=== PATIENT | male | born 1940 | race Caucasian/White ===

== ENCOUNTER 2017-05-14 13:35 | Inpatient (IN) ==
--- NOTE | 2017-05-14 13:55 | Emergency Department Note ---
Disposition Clinical Impression: Abdominal pain Qualifiers: Abdominal location: unspecified location Qualified Code(s): R10.9 - Unspecified abdominal pain Disposition: Admitted As Inpatient Condition: Fair Abdominal Pain HPI - General Chief Complaint: ED Abdominal Pain Stated Complaint: abd pain, difficulty walking Time Seen by Provider: 05/14/17 13:50 Source: patient Mode of arrival: ambulatory Limitations: no limitations Nursing Notes Reviewed: Yes Vital Signs Reviewed: Yes - History of Present Illness HPI Narrative: 77-year-old who states he's had right flank pain for about a week or 2 and got worse over the last 2 days. Denies urinary symptoms denies any hematuria. No history of kidney stones. This pain does radiate around down into his right groin. He denies testicular pain. Pt Subjective Complaint: abdominal pain, flank pain Onset (ago): week(s) (2) Location: diffuse Pain Scale: 10 Quality: aching Radiation: RLQ Migration to: no migration Improves with: nothing Worsens with: nothing Associated symptoms: Reports: denies other symptoms Treatments prior to arrival: none - Related Data Home Medications Medication Instructions Recorded Confirmed Atorvastatin [Lipitor] 80 mg PO DAILY 06/11/15 05/14/17 Levothyroxine [Synthroid] 250 mcg PO QAM 06/11/15 05/15/17 Omeprazole [PriLOSEC] 20 mg PO QAM 06/11/15 05/15/17 Sertraline [Zoloft] 100 mg PO QAM 06/11/15 05/14/17 Tamsulosin [Flomax] 0.4 mg PO QAM 06/11/15 05/15/17 BuPROPion XL (24 HR) [Wellbutrin 150 mg PO QAM 07/06/15 05/14/17 Xl] Lisinopril 5 mg PO DAILY 08/10/15 05/14/17 Insulin Glargine,Hum.rec.anlog 20 unit SQ DAILY 12/09/15 05/15/17 [Lantus Solostar] Multivitamin [Multivitamins] 1 tab PO DAILY 12/09/15 05/15/17 traZODone [TraZODone] 50 mg PO HS 01/06/16 05/14/17 Metoprolol [Lopressor] 25 mg PO BID 05/16/16 05/14/17 Warfarin [Coumadin] 10 mg PO TUWETH 05/16/16 05/15/17 amLODIPine [Norvasc] 5 mg PO DAILY 05/16/16 05/14/17 Acetaminophen/Butalbital/Caffe 1 each PO DAILY PRN 05/14/17 05/14/17 [Fioricet] Ezetimibe [Zetia] 10 mg PO DAILY 05/14/17 05/15/17 Ferrous Sulfate [Iron] 325 mg PO DAILY 05/14/17 05/14/17 Gabapentin [Neurontin] 100 mg PO HS 05/14/17 05/15/17 Metformin HCl [Metformin HCl ER] 500 mg PO QPM 05/14/17 05/15/17 Promethazine [Phenergan] 25 mg PO Q6HR PRN 05/14/17 05/15/17 Topiramate [Topamax] 50 mg PO HS 05/14/17 05/14/17 Warfarin [Coumadin] 5 mg PO SUMO 05/15/17 05/15/17 Allergies Allergy/AdvReac Type Severity Reaction Status Date / Time No Known Allergies Allergy Verified 05/14/17 13:40 All systems ED: reviewed and negative except as stated. Constitutional: Denies: fever, chills, weakness, weight change Eyes: Denies: eye pain, eye discharge, vision change ENT ED: Denies: ear pain, throat pain, dental pain, hearing loss, epistaxis, congestion, dysphagia Cardiovascular: Denies: chest pain, palpitations, dyspnea on exertion, edema, syncope Respiratory: Denies: cough, dyspnea, wheezes, hemoptysis, stridor Gastrointestinal: Reports: abdominal pain. Denies: nausea, vomiting, diarrhea, constipation, hematemesis, melena, hematochezia Genitourinary: Denies: urgency, dysuria, frequency, hematuria Musculoskeletal: Denies: back pain, neck pain, arthralgia, myalgia Integumentary: Denies: rash, abrasion, lesions Neurological: Denies: headache, weakness, numbness, paresthesias, confusion, abnormal gait, vertigo Psychiatric: Denies: anxiety, depression, suicidal thoughts, homicidal thoughts , auditory hallucinations, visual hallucinations Endocrine: Denies: fatigue Hematological/Lymphatic: Denies: easy bleeding, easy bruising Allergic/Immunologic: Denies: facial swelling, urticaria Abdominal Pain PMH - Past Medical History Medical history: Reports: atrial fibrillation, cancer, coronary artery disease, CVA, diabetes, hypertension, peripheral artery disease, SVT, thyroid disease, other Male Surgical History: Reports: angioplasty/stent, appendectomy, coronary bypass (CABG), other Psychiatric history: Reports: no psych history - Social History Smoking status: Former smoker Alcohol use: Reports: none Drug use: Reports: none Physical Exam - General Limitations: no limitations General appearance: alert, in no apparent distress - Head Head exam: atraumatic, normocephalic, normal inspection - Eye Eye exam: Present: normal appearance, PERRL, EOMI - ENT ENT exam: normal exam, normal oropharynx, mucous membranes moist - Neck Neck exam: Present: normal inspection, full ROM, trachea midline - Chest Chest inspection: Present: normal inspection, symmetric chest wall rise - Respiratory Respiratory exam: Present: normal lung sounds bilaterally - Cardiovascular Cardiovascular exam: Present: regular rate, normal rhythm, normal heart sounds - Abdominal Exam Abdominal exam: Present: soft, Non-Tender. Absent: tenderness, distention, guarding, rebound, rigidity - Extremities Exam Extremities exam: Present: normal inspection, full ROM. Absent: tenderness, pedal edema - Expanded Lower Extremity Exam Neurovascular/Tendon exam: Absent: motor deficit, sensory deficit, tendon deficit Gait: observed and normal - Back Exam Back exam: Present: normal inspection, full ROM. Absent: tenderness - Neurological Exam Neurological exam: Present: alert, oriented X3 - Psychiatric Psychiatric exam: Present: normal affect, normal mood - Skin Skin exam: Present: warm Course Vital Signs Temperature 97.6 F 05/14/17 13:36 Pulse Rate 73 05/14/17 13:36 Respiratory Rate 16 05/14/17 13:36 Blood Pressure 174/68 05/14/17 13:36 O2 Sat by Pulse Oximetry 98 05/14/17 13:36 Temperature 97.7 F 05/16/17 07:15 Pulse Rate 48 05/16/17 07:15 Respiratory Rate 14 05/16/17 07:15 Blood Pressure 158/71 05/16/17 07:15 O2 Sat by Pulse Oximetry 95 05/16/17 07:15 Oxygen Delivery Oxygen Delivery Room Air Abdominal Pain - Lab Data Lab results reviewed: Yes I reviewed the patient's lab results. Result diagrams: 05/16/17 03:06 05/16/17 03:06 Lab Results 05/14/17 05/14/17 05/14/17 Range/Units 14:03 14:19 14:19 WBC 5.2 (4.3-11.1) K/mcL RBC 4.57 (4.19-5.50) M/mcL Hgb 12.6 L (12.9-16.9) g/dL Hct 39.5 (37.5-50.1) % MCV 86.4 (83.0-100.0) fL MCH 27.6 L (28.0-33.3) pg MCHC 31.9 (31.6-35.5) g/dL RDW 13.2 (11.5-14.5) % Plt Count 162 (140-400) K/mcL MPV 9.5 (9.4-12.4) fL Immature Gran % 0.2 (0-4) % Seg Neutrophils % 63.3 % Lymphocytes % 19.1 % Monocytes % 9.9 % Eosinophils % 6.7 % Basophils % 0.8 % Neutrophils # 3.3 (1.6-8.9) K/mcL Lymphocytes # 1.0 (0.6-4.6) K/mcL Monocytes # 0.5 (0.0-1.3) K/mcL Eosinophils # 0.4 (0.0-0.6) K/mcL Basophils # 0.0 (0.0-0.2) K/mcL Sodium (136-145) mEq/L Potassium (3.5-4.5) mEq/L Chloride (98-109) mEq/L Carbon Dioxide (19-29) mEq/L BUN (8-26) mg/dL Creatinine (0.72-1.25) mg/dL Est GFR ( Amer) (> 60) Est GFR (Non-Af Amer) (> 60) BUN/Creatinine Ratio (6-26) Glucose (70-99) mg/dL POC Glucose (58-89) Calculated Osmolality (280-300) Lactic Acid (0.5-2.2) mmol/L Calcium (8.6-10.8) mg/dL Total Bilirubin (0.2-1.2) mg/dL Direct Bilirubin (0.0-0.5) mg/dL Indirect Bilirubin (0.0-1.2) mg/dL AST (5-34) Units/L ALT (0-55) Units/L Alkaline Phosphatase (38-126) Units/L Troponin I 0.00 (0-0.03) ng/mL Serum Total Protein (6.0-8.3) g/dL Albumin (3.5-5.0) g/dL Globulin (2.4-3.5) g/dL Albumin/Globulin Ratio (1.1-2.2) Amylase (25-125) Units/L Lipase (8-78) Units/L Urine Color Yellow (Yellow) Urine Clarity Clear (Clear) Urine pH 6.5 (5.0-8.0) pH Units Ur Specific [place] 1.022 (1.010-1.025) Urine Protein Trace (Neg-Trace) mg/dL Urine Glucose (UA) Normal (Normal) mg/dL Urine Ketones Negative (Negative) mg/dL Urine Blood Negative (Negative) Urine Nitrite Negative (Negative) Urine Bilirubin Negative (Negative) Urine Urobilinogen Normal (Normal) mg/dL Ur Leukocyte Esterase Negative (Negative) Urine Microscopic RBC 3-5 H (0-3) per hpf Urine Microscopic WBC 0-3 (0-3) per hpf Ur Squamous Epith Cells Moderate H (None-Few) per lpf Urine Bacteria None Seen (None-Few) per hpf Hyaline Casts None Seen (None-Few) per lpf Ur Culture Indicated? NO (NO) 05/14/17 05/14/17 05/14/17 Range/Units 14:19 16:06 17:29 WBC (4.3-11.1) K/mcL RBC (4.19-5.50) M/mcL Hgb (12.9-16.9) g/dL Hct (37.5-50.1) % MCV (83.0-100.0) fL MCH (28.0-33.3) pg MCHC (31.6-35.5) g/dL RDW (11.5-14.5) % Plt Count (140-400) K/mcL MPV (9.4-12.4) fL Immature Gran % (0-4) % Seg Neutrophils % % Lymphocytes % % Monocytes % % Eosinophils % % Basophils % % Neutrophils # (1.6-8.9) K/mcL Lymphocytes # (0.6-4.6) K/mcL Monocytes # (0.0-1.3) K/mcL Eosinophils # (0.0-0.6) K/mcL Basophils # (0.0-0.2) K/mcL Sodium 140 (136-145) mEq/L Potassium 4.7 H (3.5-4.5) mEq/L Chloride 106 (98-109) mEq/L Carbon Dioxide 26 (19-29) mEq/L BUN 29 H (8-26) mg/dL Creatinine 1.01 (0.72-1.25) mg/dL Est GFR ( Amer) > 60 (> 60) Est GFR (Non-Af Amer) > 60 (> 60) BUN/Creatinine Ratio 29 H (6-26) Glucose 105 H (70-99) mg/dL POC Glucose 79 (58-89) Calculated Osmolality 296 (280-300) Lactic Acid 0.6 (0.5-2.2) mmol/L Calcium 9.4 (8.6-10.8) mg/dL Total Bilirubin 0.4 (0.2-1.2) mg/dL Direct Bilirubin 0.2 (0.0-0.5) mg/dL Indirect Bilirubin 0.2 (0.0-1.2) mg/dL AST 24 (5-34) Units/L ALT 45 (0-55) Units/L Alkaline Phosphatase 90 (38-126) Units/L Troponin I (0-0.03) ng/mL Serum Total Protein 7.1 (6.0-8.3) g/dL Albumin 3.5 (3.5-5.0) g/dL Globulin 3.6 H (2.4-3.5) g/dL Albumin/Globulin Ratio 1.0 L (1.1-2.2) Amylase 42 (25-125) Units/L Lipase 26 (8-78) Units/L Urine Color (Yellow) Urine Clarity (Clear) Urine pH (5.0-8.0) pH Units Ur Specific [place] (1.010-1.025) Urine Protein (Neg-Trace) mg/dL Urine Glucose (UA) (Normal) mg/dL Urine Ketones (Negative) mg/dL Urine Blood (Negative) Urine Nitrite (Negative) Urine Bilirubin (Negative) Urine Urobilinogen (Normal) mg/dL Ur Leukocyte Esterase (Negative) Urine Microscopic RBC (0-3) per hpf Urine Microscopic WBC (0-3) per hpf Ur Squamous Epith Cells (None-Few) per lpf Urine Bacteria (None-Few) per hpf Hyaline Casts (None-Few) per lpf Ur Culture Indicated? (NO) - Radiology Data Radiology results reviewed: Yes I reviewed the patient's radiology results. Abdomen/Pelvis CT 05/14/17 13:53 IMPRESSION: 1. No acute abnormalities are seen in the abdomen or pelvis 2. Bladder wall thickening could be related to cystitis. Clinical correlation is needed 3. Degenerative changes in the spine 4. No urinary tract stones 5. No evidence for appendicitis D/ / Bernabe Arriaga MD / Bernabe Arriaga MD Interpreting Provider: Bernabe Arriaga MD S.B.A.R. - S.B.A.RMaria De Jesus Recommendation: Recommendation based on pending studies, treatments, or consults S.B.A.RMaria De Jesus Report Given to: Dr. James BloomAGretta Repor Time: 19:00
[2017-05-14 14:19] LABS: Bilirubin,Urine Negative (Negative); Blood,Urine Negative (Negative); Clarity,Urine Clear (Clear); Color,Urine Yellow (Yellow); Glucose,Urine (UA) Normal (Normal); Ketones,Urine Negative (Negative); Leukocyte Esterase,Urine Negative (Negative); Nitrite,Urine Negative (Negative); PH,Urine 6.5 pH Units (5.0-8.0); Protein,Urine Trace mg/dL (Neg-Trace); Specific Gravity,Urine 1.022 (1.010-1.025); Urobilinogen,Urine Normal (Normal)
[2017-05-14 14:21] LABS: Bacteria,Urine None Seen per hpf (None-Few); Hyaline Casts,Urine None Seen per lpf (None-Few); Squamous Epithelial Cell,Urine Moderate per lpf (None-Few); WBC,Urine 0-3 per hpf (0-3)
[2017-05-14 14:26] LABS: Basophils % 0.8 %; Eosinophils # 0.4 K/mcL (0.0-0.6); Eosinophils % 6.7 %; Hematocrit 39.5 % (37.5-50.1); Hemoglobin 12.6 g/dL (12.9-16.9); Immature Granulocytes % 0.2 % (0-4); Lymphocytes % 19.1 %; Mean Corpuscular HGB Conc 31.9 g/dL (31.6-35.5); Mean Corpuscular Hemoglobin 27.6 pg (28.0-33.3); Mean Corpuscular Volume 86.4 fL (83.0-100.0); Mean Platelet Volume 9.5 fL (9.4-12.4); Monocytes # 0.5 K/mcL (0.0-1.3); Monocytes % 9.9 %; Neutrophils # 3.3 K/mcL (1.6-8.9); Platelet Count 162 K/mcL (140-400); Red Blood Count 4.57 M/mcL (4.19-5.50); Red Cell Distribution Width 13.2 % (11.5-14.5); Segmented Neutrophils % 63.3 %
[2017-05-14 14:41] LABS: Alanine Aminotransferase 45 Units/L (0-55); Albumin 3.5 g/dL (3.5-5.0); Alkaline Phosphatase 90 Units/L (38-126); Amylase 42 Units/L (25-125); Aspartate Amino Transferase 24 Units/L (5-34); BUN/Creatinine Ratio 29 (6-26); Bilirubin,Direct 0.2 mg/dL (0.0-0.5); Bilirubin,Indirect 0.2 mg/dL (0.0-1.2); Bilirubin,Total 0.4 mg/dL (0.2-1.2); Blood Urea Nitrogen 29 mg/dL (8-26); Calcium 9.4 mg/dL (8.6-10.8); Carbon Dioxide 26 mEq/L (19-29); Chloride 106 mEq/L (98-109); Globulin 3.6 g/dL (2.4-3.5); Glucose 105 mg/dL (70-99); Lipase 26 Units/L (8-78); Osmolality,Calculated 296 (280-300); Potassium 4.7 mEq/L (3.5-4.5); Sodium 140 mEq/L (136-145); Total Protein 7.1 g/dL (6.0-8.3); eGFR For African Americans > 60 (> 60); eGFR For Non-African Americans > 60 (> 60)
[2017-05-14] MEDS ORDERED: *HR* Morphine 2 MG/ML SYRINGE IVP ONE (14:54)
[2017-05-14] MEDS ORDERED: Ondansetron 4 MG/2 ML VIAL IVP ONE ×2 (14:54→19:25)
[2017-05-14] MEDS ORDERED: *HR* HYDROmorphone (PF) 1 MG/ML SYRINGE IVP ONE (19:25)
--- NOTE | 2017-05-14 20:15 | Emergency Department Note ---
Disposition Clinical Impression: Abdominal pain Qualifiers: Abdominal location: unspecified location Qualified Code(s): R10.9 - Unspecified abdominal pain Disposition: Admitted As Inpatient Referrals: Rd Mendoza MD [Primary Care Provider] - Forms: ED Satisfaction Letter, Work/School Release Time of Disposition: 20:14 Abdominal Pain HPI - General Chief Complaint: ED Abdominal Pain Stated Complaint: abd pain, difficulty walking Time Seen by Provider: 05/14/17 13:50 Source: patient Mode of arrival: ambulatory - History of Present Illness Pt Subjective Complaint: abdominal pain, flank pain Location: diffuse Pain Scale: 10 Quality: aching Migration to: no migration Improves with: nothing Worsens with: nothing Associated symptoms: Reports: denies other symptoms - Related Data Home Medications Medication Instructions Recorded Confirmed Atorvastatin [Lipitor] 80 mg PO DAILY 06/11/15 05/14/17 Levothyroxine [Synthroid] 250 mcg PO QAM 06/11/15 05/14/17 Omeprazole [PriLOSEC] 20 mg PO QAM 06/11/15 05/14/17 Sertraline [Zoloft] 100 mg PO QAM 06/11/15 05/14/17 Tamsulosin [Flomax] 0.4 mg PO QAM 06/11/15 05/14/17 BuPROPion XL (24 HR) [Wellbutrin 150 mg PO QAM 07/06/15 05/14/17 Xl] Lisinopril 5 mg PO DAILY 08/10/15 05/14/17 Insulin Glargine,Hum.rec.anlog 20 unit SQ DAILY 12/09/15 05/14/17 [Lantus Solostar] Multivitamin [Multivitamins] 1 each PO DAILY 12/09/15 05/14/17 traZODone [TraZODone] 50 mg PO HS 01/06/16 05/14/17 Metoprolol [Lopressor] 25 mg PO BID 05/16/16 05/14/17 Warfarin [Coumadin] 10 mg PO DAILY 05/16/16 05/14/17 amLODIPine [Norvasc] 5 mg PO DAILY 05/16/16 05/14/17 Acetaminophen/Butalbital/Caffe 1 each PO DAILY PRN 05/14/17 05/14/17 [Fioricet] Ezetimibe [Zetia] 10 mg PO DAILY 05/14/17 05/14/17 Ferrous Sulfate [Iron] 325 mg PO DAILY 05/14/17 05/14/17 Gabapentin [Neurontin] 100 mg PO HS 05/14/17 05/14/17 Metformin HCl [Metformin HCl ER] 500 mg PO QPM 05/14/17 05/14/17 Promethazine [Phenergan] 25 mg PO Q6HR PRN 05/14/17 05/14/17 Topiramate [Topamax] 50 mg PO HS 05/14/17 05/14/17 Allergies Allergy/AdvReac Type Severity Reaction Status Date / Time No Known Allergies Allergy Verified 05/14/17 13:40 Constitutional: Denies: fever, chills, weakness, weight change Eyes: Denies: eye pain, eye discharge, vision change ENT ED: Denies: ear pain, throat pain, dental pain, hearing loss, epistaxis, congestion, dysphagia Cardiovascular: Denies: chest pain, palpitations, dyspnea on exertion, edema, syncope Respiratory: Denies: cough, dyspnea, wheezes, hemoptysis, stridor Gastrointestinal: Reports: abdominal pain. Denies: nausea, vomiting, diarrhea, constipation, hematemesis, melena, hematochezia Genitourinary: Denies: urgency, dysuria, frequency, hematuria Musculoskeletal: Denies: back pain, neck pain, arthralgia, myalgia Integumentary: Denies: rash, abrasion, lesions Neurological: Denies: headache, weakness, numbness, paresthesias, confusion, abnormal gait, vertigo Psychiatric: Denies: anxiety, depression, suicidal thoughts, homicidal thoughts , auditory hallucinations, visual hallucinations Endocrine: Denies: fatigue Hematological/Lymphatic: Denies: easy bleeding, easy bruising Allergic/Immunologic: Denies: facial swelling, urticaria Abdominal Pain PMH - Past Medical History Medical history: Reports: atrial fibrillation, cancer, coronary artery disease, CVA, diabetes, hypertension, peripheral artery disease, SVT, thyroid disease, other Male Surgical History: Reports: angioplasty/stent, appendectomy, coronary bypass (CABG), other Psychiatric history: Reports: no psych history - Social History Smoking status: Former smoker Alcohol use: Reports: none Drug use: Reports: none Physical Exam - General Limitations: no limitations General appearance: alert, in no apparent distress Course Vital Signs Temperature 97.6 F 05/14/17 13:36 Pulse Rate 73 05/14/17 13:36 Respiratory Rate 16 05/14/17 13:36 Blood Pressure 174/68 05/14/17 13:36 O2 Sat by Pulse Oximetry 98 05/14/17 13:36 Temperature 97.6 F 05/14/17 13:36 Pulse Rate 56 05/14/17 19:23 Respiratory Rate 18 05/14/17 19:23 Blood Pressure 145/70 05/14/17 19:23 O2 Sat by Pulse Oximetry 96 05/14/17 19:23 Oxygen Delivery Oxygen Delivery Room Air Abdominal Pain - MDM Narrative Medical decision making narrative: 77-year-old male with abdominal pain, care was signed out from Dr. Mims ( please see his note for assessment and plan.), Dr. Mims had spoken with the hospitalist already essentially his CT abdomen without contrast was negative so they recommended a CT with contrast given comorbidities of A. fib CAD CVA hypertension hyperlipidemia, so a CT with contrast was ordered, it was again negative stable AAA with 3 cm, and no evidence of obstructive uropathy, mild bladder thickening no white count. The clean urine lab work otherwise unremarkable we will admit to hospitalist service Dr. Moran excepting for intractable abdominal pain unclear etiology in a elderly patient with comorbidities - Differential Diagnosis Differential Diagnosis: Likely: abdominal pain non-specific, diverticulitis, diverticulosis - Medical Records Medical records reviewed: Yes I reviewed the patient's medical records. - Lab Data Lab results reviewed: Yes I reviewed the patient's lab results. Result diagrams: 05/14/17 14:19 05/14/17 14:19 Lab Results 05/14/17 05/14/17 05/14/17 Range/Units 14:03 14:19 14:19 WBC 5.2 (4.3-11.1) K/mcL RBC 4.57 (4.19-5.50) M/mcL Hgb 12.6 L (12.9-16.9) g/dL Hct 39.5 (37.5-50.1) % MCV 86.4 (83.0-100.0) fL MCH 27.6 L (28.0-33.3) pg MCHC 31.9 (31.6-35.5) g/dL RDW 13.2 (11.5-14.5) % Plt Count 162 (140-400) K/mcL MPV 9.5 (9.4-12.4) fL Immature Gran % 0.2 (0-4) % Seg Neutrophils % 63.3 % Lymphocytes % 19.1 % Monocytes % 9.9 % Eosinophils % 6.7 % Basophils % 0.8 % Neutrophils # 3.3 (1.6-8.9) K/mcL Lymphocytes # 1.0 (0.6-4.6) K/mcL Monocytes # 0.5 (0.0-1.3) K/mcL Eosinophils # 0.4 (0.0-0.6) K/mcL Basophils # 0.0 (0.0-0.2) K/mcL Sodium (136-145) mEq/L Potassium (3.5-4.5) mEq/L Chloride (98-109) mEq/L Carbon Dioxide (19-29) mEq/L BUN (8-26) mg/dL Creatinine (0.72-1.25) mg/dL Est GFR ( Amer) (> 60) Est GFR (Non-Af Amer) (> 60) BUN/Creatinine Ratio (6-26) Glucose (70-99) mg/dL POC Glucose (58-89) Calculated Osmolality (280-300) Lactic Acid (0.5-2.2) mmol/L Calcium (8.6-10.8) mg/dL Total Bilirubin (0.2-1.2) mg/dL Direct Bilirubin (0.0-0.5) mg/dL Indirect Bilirubin (0.0-1.2) mg/dL AST (5-34) Units/L ALT (0-55) Units/L Alkaline Phosphatase (38-126) Units/L Troponin I 0.00 (0-0.03) ng/mL Serum Total Protein (6.0-8.3) g/dL Albumin (3.5-5.0) g/dL Globulin (2.4-3.5) g/dL Albumin/Globulin Ratio (1.1-2.2) Amylase (25-125) Units/L Lipase (8-78) Units/L Urine Color Yellow (Yellow) Urine Clarity Clear (Clear) Urine pH 6.5 (5.0-8.0) pH Units Ur Specific [place] 1.022 (1.010-1.025) Urine Protein Trace (Neg-Trace) mg/dL Urine Glucose (UA) Normal (Normal) mg/dL Urine Ketones Negative (Negative) mg/dL Urine Blood Negative (Negative) Urine Nitrite Negative (Negative) Urine Bilirubin Negative (Negative) Urine Urobilinogen Normal (Normal) mg/dL Ur Leukocyte Esterase Negative (Negative) Urine Microscopic RBC 3-5 H (0-3) per hpf Urine Microscopic WBC 0-3 (0-3) per hpf Ur Squamous Epith Cells Moderate H (None-Few) per lpf Urine Bacteria None Seen (None-Few) per hpf Hyaline Casts None Seen (None-Few) per lpf Ur Culture Indicated? NO (NO) 05/14/17 05/14/17 05/14/17 Range/Units 14:19 16:06 17:29 WBC (4.3-11.1) K/mcL RBC (4.19-5.50) M/mcL Hgb (12.9-16.9) g/dL Hct (37.5-50.1) % MCV (83.0-100.0) fL MCH (28.0-33.3) pg MCHC (31.6-35.5) g/dL RDW (11.5-14.5) % Plt Count (140-400) K/mcL MPV (9.4-12.4) fL Immature Gran % (0-4) % Seg Neutrophils % % Lymphocytes % % Monocytes % % Eosinophils % % Basophils % % Neutrophils # (1.6-8.9) K/mcL Lymphocytes # (0.6-4.6) K/mcL Monocytes # (0.0-1.3) K/mcL Eosinophils # (0.0-0.6) K/mcL Basophils # (0.0-0.2) K/mcL Sodium 140 (136-145) mEq/L Potassium 4.7 H (3.5-4.5) mEq/L Chloride 106 (98-109) mEq/L Carbon Dioxide 26 (19-29) mEq/L BUN 29 H (8-26) mg/dL Creatinine 1.01 (0.72-1.25) mg/dL Est GFR ( Amer) > 60 (> 60) Est GFR (Non-Af Amer) > 60 (> 60) BUN/Creatinine Ratio 29 H (6-26) Glucose 105 H (70-99) mg/dL POC Glucose 79 (58-89) Calculated Osmolality 296 (280-300) Lactic Acid 0.6 (0.5-2.2) mmol/L Calcium 9.4 (8.6-10.8) mg/dL Total Bilirubin 0.4 (0.2-1.2) mg/dL Direct Bilirubin 0.2 (0.0-0.5) mg/dL Indirect Bilirubin 0.2 (0.0-1.2) mg/dL AST 24 (5-34) Units/L ALT 45 (0-55) Units/L Alkaline Phosphatase 90 (38-126) Units/L Troponin I (0-0.03) ng/mL Serum Total Protein 7.1 (6.0-8.3) g/dL Albumin 3.5 (3.5-5.0) g/dL Globulin 3.6 H (2.4-3.5) g/dL Albumin/Globulin Ratio 1.0 L (1.1-2.2) Amylase 42 (25-125) Units/L Lipase 26 (8-78) Units/L Urine Color (Yellow) Urine Clarity (Clear) Urine pH (5.0-8.0) pH Units Ur Specific [place] (1.010-1.025) Urine Protein (Neg-Trace) mg/dL Urine Glucose (UA) (Normal) mg/dL Urine Ketones (Negative) mg/dL Urine Blood (Negative) Urine Nitrite (Negative) Urine Bilirubin (Negative) Urine Urobilinogen (Normal) mg/dL Ur Leukocyte Esterase (Negative) Urine Microscopic RBC (0-3) per hpf Urine Microscopic WBC (0-3) per hpf Ur Squamous Epith Cells (None-Few) per lpf Urine Bacteria (None-Few) per hpf Hyaline Casts (None-Few) per lpf Ur Culture Indicated? (NO) - Radiology Data Radiology results reviewed: Yes I reviewed the patient's radiology results. Abdomen/Pelvis CT 05/14/17 15:36 IMPRESSION: No substantial change in appearance of the abdomen and pelvis. Mild bladder wall thickening, slightly more prominent to the right, not substantially changed. Abdominal aorta measures up to 3.0 cm, unchanged. 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 Follow-up for vascular surgery recommendations. Very small right pleural effusion. D/ / Sue Bishop MD / Sue Bishop MD Interpreting Provider: Sue Bishop MD
[2017-05-14] MEDS ORDERED: Acetaminophen/Butalbital/CaffeineTABLET PO PRN (21:32)
[2017-05-14] MEDS ORDERED: Naloxone 0.4 MG/ML INJ IVP PRN (21:35)
[2017-05-14] MEDS ORDERED: Acetaminophen 325 MG TABLET PO PRN (21:35)
[2017-05-14] MEDS ORDERED: D5% in Water 1,000 ML IVC PRN (21:41)
[2017-05-14] MEDS ORDERED: *HR* Dextrose 50 % in Water (Syg) 50 ML SYRINGE IVP PRN (21:41)
[2017-05-14] MEDS ORDERED: Dextrose Gel 15 GM PO PRN ×2 (21:41)
--- NOTE | 2017-05-14 21:53 | Internal Med History&Physical ---
Date of Encounter: 05/14/17 Time of Encounter: 21:48 Assessment and Plan (1) Abdominal pain Current visit: Yes Status: Chronic unclear etiology, UA, CTA/P appears unremarkable. Consult GI to eval and outpatient follow up if able to tolerate PO intake in the hospital Qualifiers: Abdominal location: right lower quadrant Qualified Code(s): R10.31 - Right lower quadrant pain (2) Dyspepsia and disorder of function of stomach Current visit: Yes Status: Acute Subjective anorexia. Trial of PPI, carafate BID, consult GI to eval and transition outpatient follow up (3) CAD (coronary artery disease) Current visit: No Status: Chronic continue cardiac meds Qualifiers: Qualified Code(s): I25.10 - Atherosclerotic heart disease of [place] coronary artery without angina pectoris (4) Diabetes Current visit: No Status: Chronic hold metformin. ISS, continue lantus Qualifiers: Diabetes mellitus type: type 2 Diabetes mellitus complication status: without complication Diabetes mellitus jail insulin use: with jail use Qualified Code(s): E11.9 - Type 2 diabetes mellitus without complications ; Z79.4 - care home (current) use of insulin (5) Aneurysm Current visit: Yes Status: Acute stable on imaging, outpatient surveillance (6) HTN (hypertension) with goal to be determined Current visit: Yes Status: Acute continue BP med Internal Medicine - H&P: HPI Chief complaint: Right abdominal pain , poor appetite History of present illness: Mr. Salmeron is a 77 year old male with hx of AFib on coumadin, CAD s/p CABG in , Nasopharyngeal cancer s/p radiation in remission, PAD who presents for evaluation of worsening non-specific GI symptoms. He reports developing approx 2 week hx of anorexia, poor appetite, sick to the stomach approx 1 hour after eating with reduced PO intake leading to relative anorexia. A few days ago, he developed new Right sided (flank and anterior abdomen) pain since the last few days, rated 10/10, aching with no migration. He did not feel that the right side abdo pain and eating issues are to related on direct questioning. Otherwise , he denies any issues with urinating or changes in bowel function. In the ED, lactate was wnl, UA, labs largely unremarkable, CT A/P with chronic unchanged AAA, right iliac aneurysm. Past Med Surg Social Fam HX - Past Medical History Medical history: atrial fibrillation, cancer, coronary artery disease, CVA, diabetes, hypertension, peripheral artery disease, SVT, thyroid disease, other Psychiatric history: no psych history - Past Surgical History Surgical History: angioplasty/stent, appendectomy, coronary bypass (CABG), herniorrhaphy, LE vascular intervention, tracheostomy - Social History Smoking Status: Former smoker Smokeless Tobacco Status: No Alcohol use: none Drug use: none - Family History Mother Living Status: Hx Family Cancer: Yes Father Living Status: Hx Family Cancer: Yes (lung cancer) Sister Living Status: Hx Family Cancer: Yes (lung cancer) Internal Medicine - H&P: Meds Atorvastatin [Lipitor] 80 mg PO DAILY 06/11/15 [History] Levothyroxine [Synthroid] 250 mcg PO QAM 06/11/15 [History] Omeprazole [PriLOSEC] 20 mg PO QAM 06/11/15 [History] Sertraline [Zoloft] 100 mg PO QAM 06/11/15 [History] Tamsulosin [Flomax] 0.4 mg PO QAM 06/11/15 [History] BuPROPion XL (24 HR) [Wellbutrin Xl] 150 mg PO QAM 07/06/15 [History] Lisinopril 5 mg PO DAILY 08/10/15 [History] Insulin Glargine,Hum.rec.anlog [Lantus Solostar] 20 unit SQ DAILY 12/09/15 [ History] Multivitamin [Multivitamins] 1 each PO DAILY 12/09/15 [History] traZODone [TraZODone] 50 mg PO HS 01/06/16 [History] Metoprolol [Lopressor] 25 mg PO BID 05/16/16 [History] Warfarin [Coumadin] 10 mg PO DAILY 05/16/16 [History] amLODIPine [Norvasc] 5 mg PO DAILY 05/16/16 [History] Acetaminophen/Butalbital/Caffe [Fioricet] 1 each PO DAILY PRN 05/14/17 [History] Ezetimibe [Zetia] 10 mg PO DAILY 05/14/17 [History] Ferrous Sulfate [Iron] 325 mg PO DAILY 05/14/17 [History] Gabapentin [Neurontin] 100 mg PO HS 05/14/17 [History] Metformin HCl [Metformin HCl ER] 500 mg PO QPM 05/14/17 [History] Promethazine [Phenergan] 25 mg PO Q6HR PRN 05/14/17 [History] Topiramate [Topamax] 50 mg PO HS 05/14/17 [History] Allergies No Known Allergies Allergy (Verified 05/14/17 13:40) All Systems PM: A 10-system review of systems was performed and is negative for pertinent findings except as documented above in the HPI. Review of systems: ROS 14 point review of systems reviewed as best as possible given presentation. Pertinent positive or negative as per HPI or otherwise reviewed as negative - Constitutional Vitals: Temp Pulse Resp BP Pulse Ox 98.1 F 64 16 165/64 92 05/14/17 21:08 05/14/17 21:08 05/14/17 21:08 05/14/17 21:08 05/14/17 21:08 Exam: General - AAO x 3 Psych - Appropriate affect/speech. No agitation Eyes - CATHERINE. Eye lids intact. No scleral icterus Lymphatics - No cervical/inguinal lympadenopathy Neuro - No gross peripheral or central neuro deficits with intact CN 2-12 exam Heart - Sinus. RRR. S1 and S2 present. No added HS/murmurs appreciated. No elevated JVD appreciated. No calf swellings/erythema Lung - Adequate air entry b/l, No crackes/wheezes appreciated GI - right-sided abdominal and flank pain. No guarding or rigidity. No hepatosplenomegaly/ascities. BS+ - No CVA/suprapubic tenderness or palpable bladder distension Skin - Intact. No rash/petechiae/ecchymosis. Warm extremities MSK - Joints with normal ROM. No joint swellings Internal Med - H&P Results - Labs CBC & Chem 7: 05/14/17 14:19 05/14/17 14:19 - VTE Reasons for not Prescribing Prophylaxis: Not indicated-Anticoagulated or INR therapeutic
[2017-05-14] MEDS: 0.9 % Sodium Chloride 1,000 ML IVC SCH (22:03)
[2017-05-14] MEDS: *HR* Morphine 2 MG/ML SYRINGE IVP PRN (22:16)
[2017-05-15 04:12] LABS: Hematocrit 35.2 % (37.5-50.1); Hemoglobin 11.1 g/dL (12.9-16.9); Mean Corpuscular HGB Conc 31.5 g/dL (31.6-35.5); Mean Corpuscular Hemoglobin 27.8 pg (28.0-33.3); Platelet Count 128 K/mcL (140-400); Red Cell Distribution Width 13.2 % (11.5-14.5)
[2017-05-15 04:27] LABS: INR 1.5; Prothrombin Time 16.9 Seconds (9.4-12.1)
[2017-05-15 04:40] LABS: Alanine Aminotransferase 32 Units/L (0-55); Albumin 2.8 g/dL (3.5-5.0); Albumin/Globulin Ratio 0.9 (1.1-2.2); Alkaline Phosphatase 80 Units/L (38-126); Aspartate Amino Transferase 22 Units/L (5-34); BUN/Creatinine Ratio 23 (6-26); Bilirubin,Total 0.5 mg/dL (0.2-1.2); Blood Urea Nitrogen 23 mg/dL (8-26); Calcium 8.5 mg/dL (8.6-10.8); Carbon Dioxide 30 mEq/L (19-29); Chloride 105 mEq/L (98-109); Globulin 3.1 g/dL (2.4-3.5); Glucose 153 mg/dL (70-99); Osmolality,Calculated 293 (280-300); Potassium 4.2 mEq/L (3.5-4.5); Sodium 138 mEq/L (136-145); Total Protein 5.9 g/dL (6.0-8.3); eGFR For African Americans > 60 (> 60); eGFR For Non-African Americans > 60 (> 60)
[2017-05-15] MEDS: *HR* Morphine 2 MG/ML SYRINGE IVP PRN ×2 (05:36→13:50)
[2017-05-15] MEDS: amLODIPine 5 MG TABLET PO SCH (09:10)
[2017-05-15] MEDS: BuPROPion XL (24 HR) 150 MG TABLET PO SCH (09:10)
[2017-05-15] MEDS: Insulin DETEMIR 100 UNIT/ML X5UNITS SQ SCH (09:11)
[2017-05-15] MEDS: Insulin LISPRO 300 UNITS/3 ML VIAL SQ SCH ×4 (09:12→22:13)
[2017-05-15] MEDS: ZETIA 10MG PO SCH (09:13)
--- NOTE | 2017-05-15 10:33 | Gastroenterology Consult Note ---
<Doreen Wong - Last Filed: 05/15/17 14:11> Date of Encounter: 05/15/17 Time of Encounter: 12:25 - Assessment and plan (1) Chronic anemia Current Visit: Yes Status: Chronic (2) Nasopharyngeal cancer Current Visit: No Status: Chronic (3) Abdominal pain Current Visit: Yes Status: Chronic Assessment and plan: EGD tomorrow. Change to protonix 40 mg po daily Qualifiers: Abdominal location: epigastric Qualified Code(s): R10.13 - Epigastric pain - Time Spent With Patient Total time spent is greater than 50% in coordination of care (as documented) at patient's floor/unit and/or counseling patient: less than 15 minutes GI History of Present Illness - Data of Consult Patient: known to practice within the last 3 years Consult date: 05/15/17 Requesting Physician: Pamela Schreiber - Consult Narrative Reason for consult: abd pain History of present illness: Mr. Salmeron is a 77 year old male with a PMH significant for AFib on coumadin, CAD s/p CABG in , Nasopharyngeal cancer s/p radiation in remission, PAD who presents for evaluation of worsening non-specific GI symptoms. He reports developing approx 2 week hx of anorexia, poor appetite, sick to the stomach approx 1 hour after eating with reduced PO intake leading to relative anorexia. A few days ago, he developed new Right sided (flank and anterior abdomen) pain since the last few days, rated 10/10, aching with no migration. He did not feel that the right side abdo pain and eating issues are to related on direct questioning. Otherwise, he denies any issues with urinating or changes in bowel function. Last Cscope/EGD with Dr. Aguirre showed esophageal stenosis s/p dilation, 10mm tubular adenoma in the colon removed, diverticulosis and internal hemorrhoids. He has a PMH of [place] esophagus [place] [address] Lynn, but nothing on most scope by Dr. Aguirre. CT showed stable vascular changes for which the patient follows with Dr. George, some mild bladder wall thickening, but no definitive GI findings on imaging both with and without contrast. When examined, patient indicates that he has had acid reflux and nausea recently. Location of pain that the patient identifies is R flank to lower back, however, upon examination, he is tender to palp in epigastric and RUQ. US GB has been ordered, but not yet resulted. No changes noted in BM. Colonoscopy: 2015 - [facility] - 10 mm tubular adenoma, diverticulosis, IH EGD: 2014 - [facility] - esoph stenosis Past Med Surg Social Fam HX - Past Medical History Medical history: atrial fibrillation, cancer, coronary artery disease, CVA, diabetes, hypertension, peripheral artery disease, SVT, thyroid disease, other Psychiatric history: no psych history - Past Surgical History Surgical History: angioplasty/stent, appendectomy, coronary bypass (CABG), herniorrhaphy, LE vascular intervention, tracheostomy - Social History Smoking Status: Former smoker Smokeless Tobacco Status: No Alcohol use: none Drug use: none - Family History Mother Living Status: Hx Family Cancer: Yes Father Living Status: Hx Family Cancer: Yes (lung cancer) Sister Living Status: Hx Family Cancer: Yes (lung cancer) - Gastrointestinal NSAID use: None noted Anticoagulation Use: Coumadin Number of BM Per Day: daily Gastrointestinal: Present: abdominal pain, dyspepsia, nausea - Constitutional Constitutional: as per HPI - EENT Eyes: as per HPI Ears: Present: as per HPI Nose, mouth and throat: Present: as per HPI - Cardiovascular Cardiovascular ROS: Present: as per HPI - Respiratory Respiratory IM: Present: as per HPI - Neurological ROS Neurological GI: Present: as per HPI - Hematologic/Lymphatic Hematologic/Lymphatic pediatric: Present: as per HPI - Musculoskeletal Musculoskeletal ROS GI: Present: back pain - Integumentary Integumentary GI: Present: as per HPI - Psychiatric ROS Psychiatric GI: Present: as per HPI - Endocrine Endocrine IM: Present: as per HPI - Constitutional Vitals: Temp Pulse Resp BP Pulse Ox 97.8 F 54 16 135/60 95 05/15/17 08:33 05/15/17 08:33 05/15/17 08:33 05/15/17 08:33 05/15/17 08:33 General appearance: Present: cooperative, A&O X 3, no acute distress, answers questions appropriately - Head Head exam: Present: atraumatic, normocephalic - Eye Eye exam: Present: normal appearance, sclera anicteric - ENT ENT exam: Present: mucous membranes moist - Neck Additional comments: tracheostomy in place - Respiratory Respiratory exam: Present: CTAB - Cardiovascular Cardiovascular exam: Present: RRR, +S1, +S2 - GI/Abdominal GI/Abdominal exam: Present: normal bowel sounds, soft, tenderness, no peritoneal signs - Rectal Rectal exam: Present: deferred - Extremities Exam Extremities exam: Present: warm - Neurological Exam Neurological exam: Present: no focal deficits - Psychiatric Psychiatric exam: Present: normal affect, normal mood - Skin Skin exam: Present: dry, intact, normal color, warm Results - Labs CBC & Chem 7: 05/15/17 03:57 05/15/17 03:57 Labs: Last Result Calcium 8.5 mg/dL (8.6-10.8) L 05/15/17 03:57 Troponin I 0.00 ng/mL (0-0.03) 05/14/17 14:19 Entire Visit Hgb 11.1 g/dL (12.9-16.9) L D 05/15/17 03:57 Hct 35.2 % (37.5-50.1) L 05/15/17 03:57 PT 16.9 Seconds (9.4-12.1) H 05/15/17 03:57 Total Bilirubin 0.5 mg/dL (0.2-1.2) 05/15/17 03:57 AST 22 Units/L (5-34) 05/15/17 03:57 ALT 32 Units/L (0-55) 05/15/17 03:57 Amylase 42 Units/L (25-125) 05/14/17 14:19 Lipase 26 Units/L (8-78) 05/14/17 14:19 - ABG ABG results: PT/INR, D-dimer PT 16.9 Seconds (9.4-12.1) H 05/15/17 03:57 Consult Discharge Plan - Plan Referrals: Rd Mendoza MD [Primary Care Provider] - <Stalin Aguirre - Last Filed: 05/15/17 17:36> Date of Encounter: 05/15/17 Time of Encounter: 13:00 - Time Spent With Patient Total time spent is greater than 50% in coordination of care (as documented) at patient's floor/unit and/or counseling patient: GI History of Present Illness - Data of Consult Requesting Physician: Pamela Schreiber - Consult Narrative History of present illness: Mr. Salmeron is a 77 year old male - Constitutional Vitals: Temp Pulse Resp BP Pulse Ox 98.0 F 53 14 127/71 92 05/15/17 15:38 05/15/17 15:38 05/15/17 15:38 05/15/17 15:38 05/15/17 15:38 Results - Labs CBC & Chem 7: 05/15/17 03:57 05/15/17 03:57 Labs: Last Result Calcium 8.5 mg/dL (8.6-10.8) L 05/15/17 03:57 Troponin I 0.00 ng/mL (0-0.03) 05/14/17 14:19 Entire Visit Hgb 11.1 g/dL (12.9-16.9) L D 05/15/17 03:57 Hct 35.2 % (37.5-50.1) L 05/15/17 03:57 PT 16.9 Seconds (9.4-12.1) H 05/15/17 03:57 Total Bilirubin 0.5 mg/dL (0.2-1.2) 05/15/17 03:57 AST 22 Units/L (5-34) 05/15/17 03:57 ALT 32 Units/L (0-55) 05/15/17 03:57 Amylase 42 Units/L (25-125) 05/14/17 14:19 Lipase 26 Units/L (8-78) 05/14/17 14:19 - ABG ABG results: PT/INR, D-dimer PT 16.9 Seconds (9.4-12.1) H 05/15/17 03:57 - Attending Attestation I examined this patient and my medical decision-making was reviewed with the Resident Physician. I agree with the documented findings, disposition and treatment plan as described except to the extent set forth below. Pt with The right upper quadrant pain rule out gallbladder etiology recommend ultrasound the gallbladder
[2017-05-15] MEDS: 0.9 % Sodium Chloride 1,000 ML IVC SCH (11:47)
[2017-05-15] MEDS: Pantoprazole 40 MG VIAL IVP SCH (14:48)
--- NOTE | 2017-05-15 16:33 | Internal Med Progress Note ---
Date of Encounter: 05/15/17 Time of Encounter: 16:00 - Assessment and plan (1) Abdominal pain Current Visit: Yes Status: Acute Assessment and plan: Patient endorsing pain to the right middle aspect of his abdomen and radiating around to his back. He states he does not currently have epigastric abdominal pain pain, he states that his epigastric pain starts approximately 1 hour after he eats. He states he was nauseated but is not currently. Abdominal CT negative for acute processes. Abdominal CT did reveal cystitis. Patient stating that he had nerves cut and his back when he had surgeries so he states that he can only void once his bladder is extremely full which would explain the cystitis-urinalysis negative. GI is on board-plan is for gallbladder ultrasound tonight at 2100 because the patient ate lunch. EGD tomorrow. Nothing by mouth at midnight. Patient stating his pain is currently uncontrolled, will increase his pain medication. ITS Impressions Abdomen/Pelvis CT 05/14/17 13:53 IMPRESSION: 1. No acute abnormalities are seen in the abdomen or pelvis. 2. Bladder wall thickening could be related to cystitis. Clinical correlation is needed. 3. Degenerative changes in the spine. 4. No urinary tract stones. 5. No evidence for appendicitis. D/ / 05/14/2017 15:23:18 Bernabe Arriaga MD / bert Interpreting Provider: Bernabe Arriaga MD Abdomen/Pelvis CT 05/14/17 15:36 IMPRESSION: No substantial change in appearance of the abdomen and pelvis. Mild bladder wall thickening, slightly more prominent to the right, not substantially changed. Abdominal aorta measures up to 3.0 cm, unchanged. 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 Follow-up for vascular surgery recommendations. Very small right pleural effusion. D/ / Sue Bishop MD / Sue Bishop MD Interpreting Provider: Sue Bishop MD (2) CAD (coronary artery disease) Current Visit: No Status: Chronic Assessment and plan: Patient denies chest pain or shortness of breath (3) Diabetes Current Visit: No Status: Chronic Assessment and plan: Relatively well controlled with A1c of 7.6%. Continue sliding scale while admitted. (4) Atrial fibrillation Current Visit: No Status: Chronic Assessment and plan: Rate controlled/slightly bradycardic at times. On Coumadin-currently subtherapeutic, pharmacy to dose Qualifiers: Atrial fibrillation type: paroxysmal Qualified Code(s): I48.0 - Paroxysmal atrial fibrillation (5) Nasopharyngeal cancer Current Visit: No Status: Chronic Assessment and plan: Reportedly in remission. Tracheostomy in place, no signs of infection (6) Hypertension Current Visit: No Status: Chronic Assessment and plan: Controlled, we will continue to trend and adjust medications as indicated. Qualifiers: Hypertension type: essential hypertension Qualified Code(s): I10 - Essential (primary) hypertension (7) Hypothyroidism, unspecified Current Visit: No Status: Chronic Assessment and plan: TSH checked earlier this year, normal (8) Aneurysm Current Visit: Yes Status: Chronic Assessment and plan: Stable on imaging, follow-up outpatient (9) Chronic anemia Current Visit: Yes Status: Chronic Assessment and plan: Mild, stable, consistent with his baseline. We will trend (10) DVT prophylaxis Current Visit: No Status: Acute Assessment and plan: On Coumadin but subtherapeutic at this time, pharmacy to dose. Observation patient. - Subjective Interval history: Patient seen and examined. On examination, patient sitting upright in bed conversing with his and children. He states that he is having severe pain to the right side of his abdomen radiating around to his back. He states pain is not currently controlled. He states he was nauseated earlier but is currently not. - Constitutional Vitals: Temp Pulse Resp BP Pulse Ox 98.0 F 53 14 127/71 92 05/15/17 15:38 05/15/17 15:38 05/15/17 15:38 05/15/17 15:38 05/15/17 15:38 General appearance: Present: A&O X 3, pleasant, no acute distress, answers questions appropriately - Head Head exam: Present: atraumatic, normocephalic - Eye Eye exam: Present: PERRL, conjuntiva pink, sclera anicteric Pupils: Present: PERRL - Neck Neck exam general surgery: Present: supple, trachea midline. Absent: lymphadenopathy, normal inspection (Trach) - Respiratory Respiratory exam: Present: decreased breath sounds. Absent: accessory muscle use, rales, respiratory distress, rhonchi, wheezes - Cardiovascular Cardiovascular exam: Present: RRR, +S1, +S2. Absent: diastolic murmur, gallop, rubs, systolic murmur - GI/Abdominal GI/Abdominal exam: Present: distended, normal bowel sounds, soft, tenderness ( Right side of abdomen), no peritoneal signs - Extremities Exam Extremities exam: Present: warm, radial pulses palpable and symetrical. Absent : calf tenderness, cyanotic, pedal edema - Back Exam Back exam: Present: CVA tenderness (R) - Neurological Exam Neurological exam: Present: alert, CN II-XII intact, oriented X3, no focal deficits, strengths equal and symetr throughout. Absent: pronater drift, facial droop, speech deficit - Skin Skin exam: Present: dry, intact, pallor, warm Internal Medicine: Result - Labs CBC & Chem 7: 05/15/17 03:57 05/15/17 03:57 Labs: Short CBC 05/15/17 Range/Units 03:57 WBC 4.2 L (4.3-11.1) K/mcL Hgb 11.1 L D (12.9-16.9) g/dL Hct 35.2 L (37.5-50.1) % Plt Count 128 L (140-400) K/mcL BMP 05/15/17 03:57 Sodium 138 Potassium 4.2 Chloride 105 Carbon Dioxide 30 H BUN 23 Creatinine 0.99 Glucose 153 H Calcium 8.5 L Liver Function 05/15/17 Range/Units 03:57 Total Bilirubin 0.5 (0.2-1.2) mg/dL AST 22 (5-34) Units/L ALT 32 (0-55) Units/L Alkaline Phosphatase 80 (38-126) Units/L Albumin 2.8 L (3.5-5.0) g/dL - ABG Interpretation ABG results: PT/INR, D-dimer PT 16.9 Seconds (9.4-12.1) H 05/15/17 03:57 - VTE Reasons for not Prescribing Prophylaxis: Not indicated-Anticoagulated or INR therapeutic Consult Discharge Plan - Plan Referrals: Rd Mendoza MD [Primary Care Provider] -
[2017-05-15] MEDS ORDERED: *HR* Warfarin 10 MG TABLET PO SCH (18:00)
[2017-05-15] MEDS: traZODone 50 MG TABLET PO SCH (22:13)
[2017-05-15] MEDS: Topiramate 25 MG TABLET PO SCH (22:13)
[2017-05-15] MEDS: Gabapentin 100 MG CAPSULE PO SCH (22:13)
[2017-05-16 03:26] LABS: Basophils % 0.7 %; Eosinophils # 0.4 K/mcL (0.0-0.6); Hematocrit 37.4 % (37.5-50.1); Hemoglobin 11.6 g/dL (12.9-16.9); Immature Granulocytes % 0.4 % (0-4); Lymphocytes % 23.4 %; Mean Corpuscular Hemoglobin 27.6 pg (28.0-33.3); Mean Corpuscular Volume 88.8 fL (83.0-100.0); Monocytes # 0.5 K/mcL (0.0-1.3); Monocytes % 12.1 %; Neutrophils # 2.4 K/mcL (1.6-8.9); Platelet Count 141 K/mcL (140-400); Red Blood Count 4.21 M/mcL (4.19-5.50); Red Cell Distribution Width 13.2 % (11.5-14.5); Segmented Neutrophils % 54.4 %
[2017-05-16 03:28] LABS: INR 1.6; Prothrombin Time 17.8 Seconds (9.4-12.1)
[2017-05-16 03:40] LABS: Alanine Aminotransferase 31 Units/L (0-55); Albumin 2.8 g/dL (3.5-5.0); Albumin/Globulin Ratio 0.9 (1.1-2.2); Alkaline Phosphatase 84 Units/L (38-126); Aspartate Amino Transferase 21 Units/L (5-34); BUN/Creatinine Ratio 23 (6-26); Bilirubin,Direct 0.2 mg/dL (0.0-0.5); Bilirubin,Indirect 0.4 mg/dL (0.0-1.2); Bilirubin,Total 0.6 mg/dL (0.2-1.2); Blood Urea Nitrogen 22 mg/dL (8-26); Calcium 8.5 mg/dL (8.6-10.8); Carbon Dioxide 26 mEq/L (19-29); Chloride 109 mEq/L (98-109); Globulin 3.2 g/dL (2.4-3.5); Glucose 154 mg/dL (70-99); Lipase 18 Units/L (8-78); Osmolality,Calculated 298 (280-300); Potassium 4.5 mEq/L (3.5-4.5); Sodium 141 mEq/L (136-145); eGFR For African Americans > 60 (> 60); eGFR For Non-African Americans > 60 (> 60)
[2017-05-16] MEDS: 0.9 % Sodium Chloride 1,000 ML IVC SCH ×2 (05:25→18:53)
[2017-05-16] MEDS: Insulin LISPRO 300 UNITS/3 ML VIAL SQ SCH ×4 (07:31→22:12)
[2017-05-16] MEDS: Insulin DETEMIR 100 UNIT/ML X5UNITS SQ SCH (11:49)
[2017-05-16] MEDS: Pantoprazole 40 MG VIAL IVP SCH (11:50)
[2017-05-16] MEDS: amLODIPine 5 MG TABLET PO SCH (11:50)
[2017-05-16] MEDS: BuPROPion XL (24 HR) 150 MG TABLET PO SCH (11:50)
[2017-05-16] MEDS: ZETIA 10MG PO SCH (11:50)
--- NOTE | 2017-05-16 12:15 | Internal Med Progress Note ---
Date of Encounter: 05/16/17 Time of Encounter: 10:40 - Assessment and plan (1) Abdominal pain Current Visit: Yes Status: Acute Assessment and plan: Pt reports RUQ/ right mid abd pain without radiation. He denies n/v and states that he has epigastric pain and RUQ pain increases approximately 1 hour after eating. Abd CT showed possible cystitis, no appendicitis or urinary tract stones. Abdominal aorta 3.0 cm, unchanged, small right pleural effusion. Gall bladder ultrasound showed sludge and no cholecystitis. Liver enzymes and amylase and lipase all WNL. Pt was to have EGD today, it was canceled by GI with a recommendation for a surgery consultation. Qualifiers: Abdominal location: unspecified location Qualified Code(s): R10.9 - Unspecified abdominal pain (2) CAD (coronary artery disease) Current Visit: No Status: Chronic Assessment and plan: Pt denies chest pain. Continue statin, BB, pt on Plavix. Qualifiers: Coronary Disease-Associated Artery/Lesion type: bypass graft [place] vs. transplanted heart: [place] heart Associated angina: without angina Qualified Code(s): I25.810 - Atherosclerosis of coronary artery bypass graft(s) without angina pectoris (3) Diabetes Current Visit: No Status: Chronic Assessment and plan: Last a1c in December, ordered for a.m. Continue SSI, Accuchecks ac/hs, diabetic diet when ready to advance. 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 Tracheostomy in place, no signs of infection. (6) Hypertension Current Visit: No Status: Chronic Assessment and plan: Chronic. Controlled. Continue home medications and trend vitals. Qualifiers: Hypertension type: essential hypertension Qualified Code(s): I10 - Essential (primary) hypertension (7) Hypothyroidism, unspecified Current Visit: No Status: Chronic Assessment and plan: Chronic. Continue home medications. TSH WNL in December, Qualifiers: Hypothyroidism type: other Qualified Code(s): E03.8 - Other specified hypothyroidism (8) Aneurysm Current Visit: Yes Status: Chronic Assessment and plan: Chronic. Stable on imaging, follow-up outpatient (9) Chronic anemia Current Visit: Yes Status: Chronic Assessment and plan: Mild, stable, consistent with his baseline at 11.6 today. (10) DVT prophylaxis Current Visit: No Status: Acute Assessment and plan: On Coumadin but subtherapeutic at this time, pharmacy is dosing. Observation patient. - Time Spent With Patient less than 15 minutes - Subjective Interval history: Pt was seen and assessed at 1040 a.m. Pt sleeping, arouses easily to verbal stimuli. He states that he still has 4-5/10 RUQ pain without radiation. Endorses anorexia. Abd tender to palpation in RUQ. Denies n/v. - Constitutional Vitals: Temp Pulse Resp BP Pulse Ox 98.2 F 50 16 155/61 93 05/16/17 11:36 05/16/17 11:36 05/16/17 11:36 05/16/17 11:36 05/16/17 11:36 General appearance: Present: A&O X 3, pleasant, no acute distress, answers questions appropriately - Head Head exam: Present: normal inspection - Eye Eye exam: Present: normal appearance, conjuntiva pink - ENT ENT exam: Present: mucous membranes moist, normal exam, normal external ear exam - Neck Neck exam general surgery: Present: normal inspection. Absent: lymphadenopathy , tenderness Additional comments: Tracheostomy. - Respiratory Respiratory exam: Present: CTAB. Absent: chest wall tenderness, decreased breath sounds, rales, respiratory distress, rhonchi, stridor, wheezes - Cardiovascular Cardiovascular exam: Present: RRR, +S1, +S2. Absent: diastolic murmur, systolic murmur - GI/Abdominal GI/Abdominal exam: Present: distended, hepatomegaly, normal bowel sounds, soft, tenderness - Extremities Exam Extremities exam: Present: normal inspection, warm, radial pulses palpable and symetrical. Absent: pedal edema, tenderness - Neurological Exam Neurological exam: Present: alert, oriented X3, no focal deficits. Absent: facial droop, speech deficit - Skin Skin exam: Present: dry, intact, warm Internal Medicine: Result - Labs CBC & Chem 7: 05/16/17 03:06 05/16/17 03:06 Labs: Short CBC 05/16/17 Range/Units 03:06 WBC 4.5 (4.3-11.1) K/mcL Hgb 11.6 L (12.9-16.9) g/dL Hct 37.4 L (37.5-50.1) % Plt Count 141 (140-400) K/mcL Neutrophils # 2.4 (1.6-8.9) K/mcL BMP 05/16/17 03:06 Sodium 141 Potassium 4.5 Chloride 109 Carbon Dioxide 26 BUN 22 Creatinine 0.96 Glucose 154 H Calcium 8.5 L Liver Function 05/16/17 Range/Units 03:06 Total Bilirubin 0.6 (0.2-1.2) mg/dL Direct Bilirubin 0.2 (0.0-0.5) mg/dL AST 21 (5-34) Units/L ALT 31 (0-55) Units/L Alkaline Phosphatase 84 (38-126) Units/L Albumin 2.8 L (3.5-5.0) g/dL - ABG Interpretation ABG results: PT/INR, D-dimer PT 17.8 Seconds (9.4-12.1) H 05/16/17 03:06 - Impressions Impressions Gallbladder Ultrasound 05/15/17 21:00 IMPRESSION: 1. Biliary sludge with a 10 mm nonmobile gallstone lodged in the neck versus, less likely, a polyp. Given the possibility this represents a polyp, a follow-up ultrasound in 3 to 6 months is recommended. 2. Otherwise no sonographic evidence of cholecystitis. 3. Mild fatty liver. RECOMMENDATIONS: Follow-up ultrasound in 3-6 months. D/ / 05/15/2017 22:43:14 Domo Bunch MD / earcathleen Interpreting Provider: Domo Bunch MD - VTE Reasons for not Prescribing Prophylaxis: Not indicated-Anticoagulated or INR therapeutic Consult Discharge Plan - Plan Referrals: Rd Mendoza MD [Primary Care Provider] -
[2017-05-16] MEDS: *HR* Morphine 2 MG/ML SYRINGE IVP PRN ×2 (14:08→20:56)
--- NOTE | 2017-05-16 14:24 | General Surgery Consult Note ---
Date of Encounter: 05/16/17 Time of Encounter: 13:58 History of Present Illness Reason for consult: gallstones Requesting physician: Vielka Asher History of present illness: 77-year-old male, admitted after presenting to the emergency department with right upper quadrant/right flank pain, 05/14/17. The patient indicates symptoms have been occurring over the past 2-3 weeks with progressive severity of pain and anorexia. The patient indicates that his pain worsens approximately [address] abdomen and pelvis demonstrated mild bladder wall thickening, slightly asymmetric to the right. Surgical changes in the right groin consistent with a right inguinal hernia repair and an aneurysm involving the proximal right common femoral artery. Evidence of prior aortobifemoral bypass as well as femoral stenting extending into the lower extremity is present. The gallbladder appeared normal on CT, however, ultrasound of the gallbladder demonstrated biliary sludge with a 10 mm nonmobile echogenic focus near the gallbladder neck. The echogenicity of this non-mobile focus and so some of the gallstone and then a polyp. There is no gallbladder wall thickening, pericholecystic fluid, or duct dilatation. These findings have prompted a surgical consultation. 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 Allergies: No known drug allergies Medications: Atorvastatin 80 mg by mouth daily Synthroid 250 g by mouth every morning Omeprazole 20 mg by mouth every morning Sertraline 100 mg by mouth every morning Tamsulosin 0.4 mg by mouth every morning Bupropion XL 150 mg by mouth every morning Lisinopril 5 mg by mouth daily Insulin glargine 20 units subcutaneous daily Multivitamin 1 by mouth daily Trazodone 50 mg by mouth daily at bedtime Metoprolol 25 mg by mouth twice a day Warfarin 10 mg by mouth daily Amlodipine 5 mg by mouth daily Fioricet 1 mg by mouth when necessary Exetimibe 10 mg by mouth daily Ferrous sulfate 325 mg by mouth daily Gabapentin 100 mg by mouth daily at bedtime Metformin 500 mg by mouth every afternoon Promethazine 25 mg by mouth every 6 hours when necessary nausea/vomiting Topiramate 50 mg by mouth daily at bedtime Social history: Patient is , lives with spouse; the patient describes smoking history of 3 packs per day for 15 years, he quit approximately 40 years ago. The patient also describes a history of alcohol abuse/alcoholism - alcoholic beverage about 30 years ago. Physical examination: Age-appropriate male resting comfortably in his hospital bed. The patient has been afebrile, currently 98.2, pulse 50, respirations 16, blood pressure 155/71; SPO2 on room air 93%. Skin: Warm without obvious jaundice Neck: Well-healed tracheostomy site patient indicates the tracheostomy was created about 9 years ago at the time of his nasopharyngeal surgery Lungs: Clear to auscultation Chest: Well-healed median sternotomy scar Abdomen: Soft, nondistended with tenderness right upper quadrant/anterior axillary line. No discernible intra-abdominal masses, no rebound. Extremities, no obvious clubbing cyanosis or edema. CT and ultrasound gallbladder were personally reviewed with [facility]: White count 4.5, hemoglobin 11.6, hematocrit 37.4; platelet count 141,000. PT 17.8, INR 1.6 Electrolytes, BUN, creatinine within normal limits. LFTs also within normal limits. Impression: 77-year-old male with history of nasopharyngeal cancer status post surgery, XRT and chemo; atrial fib with chronic anticoagulation, coronary artery disease/CABG; diabetes mellitus; intra-abdominal aneurysm as well as peripheral vascular disease and history of prior stroke referred to surgical services for further evaluation of right upper quadrant abdominal pain. Imaging is suggestive but not definitive for gallstones. A 10 mm non-mobile echogenic focus in the gallbladder neck without acoustic shadowing is described. On my review of this imaging, the consensus is that this echogenic focus is more likely a stone rather than a polyp. The patient's recurrent right upper quadrant abdominal pain, anorexia, and postprandial worsening of symptoms is consistent with cholelithiasis/biliary colic. Cholecystectomy has been discussed in detail. Laparoscopic cholecystectomy may be possible if I am able to create a sufficient working space in the right upper quadrant. She understands that an open cholecystectomy may become necessary. Risks of surgery include hemorrhage, infection, intra-abdominal abscess, bile leak, injury to adjacent ducts, vessels, organs, or bowel. We also discussed potential persistence of the patient's symptoms despite cholecystectomy. Due to the patient's comorbidities he is at increased risk for pneumonia/ respiratory failure, cardiac dysrhythmia, ND and recurrent stroke. The patient and his expressed understanding and have granted consent for surgery. This is scheduled in the a.m, 05/17/2017. Past Med Surg Social Fam HX - Past Medical History Medical history: atrial fibrillation, cancer, coronary artery disease, CVA, diabetes, hypertension, peripheral artery disease, SVT, thyroid disease, other Psychiatric history: no psych history - Past Surgical History Surgical History: angioplasty/stent, appendectomy, coronary bypass (CABG), herniorrhaphy, LE vascular intervention, tracheostomy - Social History Smoking Status: Former smoker Smokeless Tobacco Status: No Alcohol use: none Drug use: none - Family History Mother Living Status: Hx Family Cancer: Yes Father Living Status: Hx Family Cancer: Yes (lung cancer) Sister Living Status: Hx Family Cancer: Yes (lung cancer) Medications and Allergies Atorvastatin [Lipitor] 80 mg PO DAILY 06/11/15 [History] Levothyroxine [Synthroid] 250 mcg PO QAM 06/11/15 [History] Omeprazole [PriLOSEC] 20 mg PO QAM 06/11/15 [History] Sertraline [Zoloft] 100 mg PO QAM 06/11/15 [History] Tamsulosin [Flomax] 0.4 mg PO QAM 06/11/15 [History] BuPROPion XL (24 HR) [Wellbutrin Xl] 150 mg PO QAM 07/06/15 [History] Lisinopril 5 mg PO DAILY 08/10/15 [History] Insulin Glargine,Hum.rec.anlog [Lantus Solostar] 20 unit SQ DAILY 12/09/15 [ History] Multivitamin [Multivitamins] 1 tab PO DAILY 12/09/15 [History] traZODone [TraZODone] 50 mg PO HS 01/06/16 [History] Metoprolol [Lopressor] 25 mg PO BID 05/16/16 [History] Warfarin [Coumadin] 10 mg PO TUWETH 05/16/16 [History] amLODIPine [Norvasc] 5 mg PO DAILY 05/16/16 [History] Acetaminophen/Butalbital/Caffe [Fioricet] 1 each PO DAILY PRN 05/14/17 [History] Ezetimibe [Zetia] 10 mg PO DAILY 05/14/17 [History] Ferrous Sulfate [Iron] 325 mg PO DAILY 05/14/17 [History] Gabapentin [Neurontin] 100 mg PO HS 05/14/17 [History] Metformin HCl [Metformin HCl ER] 500 mg PO QPM 05/14/17 [History] Promethazine [Phenergan] 25 mg PO Q6HR PRN 05/14/17 [History] Topiramate [Topamax] 50 mg PO HS 05/14/17 [History] Warfarin [Coumadin] 5 mg PO SUMO 05/15/17 [History] Allergies No Known Allergies Allergy (Verified 05/14/17 13:40) Review of Systems All systems PM: A 10-system review of systems was performed and is negative for pertinent findings except as documented above in the HPI. General Surgery Exam Initial Vital Signs Temp Pulse Resp BP Pulse Ox 97.6 F 73 16 174/68 98 05/14/17 13:36 05/14/17 13:36 05/14/17 13:36 05/14/17 13:36 05/14/17 13:36 Exam Initial Vital Signs Temp Pulse Resp BP Pulse Ox 97.6 F 73 16 174/68 98 05/14/17 13:36 05/14/17 13:36 05/14/17 13:36 05/14/17 13:36 05/14/17 13:36 Results - Labs 05/16/17 03:06 05/16/17 03:06 Abnormal lab results Hgb 11.6 g/dL (12.9-16.9) L 05/16/17 03:06 Hct 37.4 % (37.5-50.1) L 05/16/17 03:06 MCH 27.6 pg (28.0-33.3) L 05/16/17 03:06 MCHC 31.0 g/dL (31.6-35.5) L 05/16/17 03:06 PT 17.8 Seconds (9.4-12.1) H 05/16/17 03:06 Glucose 154 mg/dL (70-99) H 05/16/17 03:06 POC Glucose 113 (58-89) H 05/15/17 20:14 Calcium 8.5 mg/dL (8.6-10.8) L 05/16/17 03:06 Albumin 2.8 g/dL (3.5-5.0) L 05/16/17 03:06 Albumin/Globulin Ratio 0.9 (1.1-2.2) L 05/16/17 03:06 Urine Microscopic RBC 3-5 per hpf (0-3) H 05/14/17 14:03 Ur Squamous Epith Cells Moderate per lpf (None-Few) H 05/14/17 14:03 Diabetes panel 05/16/17 Range/Units 03:06 Sodium 141 (136-145) mEq/L Potassium 4.5 (3.5-4.5) mEq/L Chloride 109 (98-109) mEq/L Carbon Dioxide 26 (19-29) mEq/L BUN 22 (8-26) mg/dL Creatinine 0.96 (0.72-1.25) mg/dL Glucose 154 H (70-99) mg/dL Calcium 8.5 L (8.6-10.8) mg/dL AST 21 (5-34) Units/L ALT 31 (0-55) Units/L Alkaline Phosphatase 84 (38-126) Units/L Albumin 2.8 L (3.5-5.0) g/dL Calcium panel 05/16/17 Range/Units 03:06 Calcium 8.5 L (8.6-10.8) mg/dL Albumin 2.8 L (3.5-5.0) g/dL Pituitary panel 05/16/17 Range/Units 03:06 Sodium 141 (136-145) mEq/L Potassium 4.5 (3.5-4.5) mEq/L Chloride 109 (98-109) mEq/L Carbon Dioxide 26 (19-29) mEq/L BUN 22 (8-26) mg/dL Creatinine 0.96 (0.72-1.25) mg/dL Glucose 154 H (70-99) mg/dL Calcium 8.5 L (8.6-10.8) mg/dL Adrenal panel 05/16/17 Range/Units 03:06 Sodium 141 (136-145) mEq/L Potassium 4.5 (3.5-4.5) mEq/L Chloride 109 (98-109) mEq/L Carbon Dioxide 26 (19-29) mEq/L BUN 22 (8-26) mg/dL Creatinine 0.96 (0.72-1.25) mg/dL Glucose 154 H (70-99) mg/dL Calcium 8.5 L (8.6-10.8) mg/dL Total Bilirubin 0.6 (0.2-1.2) mg/dL AST 21 (5-34) Units/L ALT 31 (0-55) Units/L Alkaline Phosphatase 84 (38-126) Units/L Albumin 2.8 L (3.5-5.0) g/dL All other labs normal. Consult Discharge Plan - Plan Referrals: Rd Mendoza MD [Primary Care Provider] -
--- NOTE | 2017-05-16 19:38 | Anesthesia Evaluation PreOp ---
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 History: CVA (no residual deficits) Other Medical History: Diabetes Type II, Thyroid, GERD, Other (H/O nasal CA S/P XRT and tracheostomy 9 years ago) Anesthesia History: No Prior Anesthetic Complications, Past Anesthesia Alcohol Use: none Drug use: none Medications and Allergies Atorvastatin [Lipitor] 80 mg PO DAILY 06/11/15 [History] Levothyroxine [Synthroid] 250 mcg PO QAM 06/11/15 [History] Omeprazole [PriLOSEC] 20 mg PO QAM 06/11/15 [History] Sertraline [Zoloft] 100 mg PO QAM 06/11/15 [History] Tamsulosin [Flomax] 0.4 mg PO QAM 06/11/15 [History] BuPROPion XL (24 HR) [Wellbutrin Xl] 150 mg PO QAM 07/06/15 [History] Lisinopril 5 mg PO DAILY 08/10/15 [History] Insulin Glargine,Hum.rec.anlog [Lantus Solostar] 20 unit SQ DAILY 12/09/15 [ History] Multivitamin [Multivitamins] 1 tab PO DAILY 12/09/15 [History] traZODone [TraZODone] 50 mg PO HS 01/06/16 [History] Metoprolol [Lopressor] 25 mg PO BID 05/16/16 [History] Warfarin [Coumadin] 10 mg PO TUWETH 05/16/16 [History] amLODIPine [Norvasc] 5 mg PO DAILY 05/16/16 [History] Acetaminophen/Butalbital/Caffe [Fioricet] 1 each PO DAILY PRN 05/14/17 [History] Ezetimibe [Zetia] 10 mg PO DAILY 05/14/17 [History] Ferrous Sulfate [Iron] 325 mg PO DAILY 05/14/17 [History] Gabapentin [Neurontin] 100 mg PO HS 05/14/17 [History] Metformin HCl [Metformin HCl ER] 500 mg PO QPM 05/14/17 [History] Promethazine [Phenergan] 25 mg PO Q6HR PRN 05/14/17 [History] Topiramate [Topamax] 50 mg PO HS 05/14/17 [History] Warfarin [Coumadin] 5 mg PO SUMO 05/15/17 [History] Allergies No Known Allergies Allergy (Verified 05/14/17 13:40) - Meds/Allergy Pre-op Review Medications Reviewed: Yes Allergies Reviewed: Yes Beta Blockers on Current Med List: Yes If Beta Blockers taken, Date/Time (Last Dose taken): 05/16/2017 at 1150 Anesthesia Results - Labs 05/16/17 03:06 05/16/17 03:06 Laboratory Tests 01/24/17 05/16/17 20:55 03:06 PT 17.8 H INR 1.6 APTT 46.2 H - Imaging EKG: report reviewed (01/24/2017 SR, IVCD) Additional studies: 08/09/2016 Stress Impression: Perfusion imaging was negative for ischemia or infarct. Pharmacologic ECG was negative for ischemia at the level of heart rate achieved. Patient described 5/10 chest pain at beginning of study which improved to 2/10 with stress. Gated EF = 67%. 08/08/2016 Echo Impressions: LVEF 60%. Normal left ventricular size and systolic function. Moderate LV concentric hypertrophy. There is evidence of mild diastolic dysfunction of the left ventricle. Normal right ventricular size and function. Mild aortic regurgitation. Mild mitral regurgitation. Mild tricuspid regurgitation. Estimated RVSP was 30 mmHg. No pulmonary hypertension. The IVC is not dilated. Borderline dilated aortic root for BSA, 4.0 cm. Anesthesia Exam Vital Signs/O2 Sat/Glucose, Most Recent Temp Pulse Resp BP Pulse Ox 97.8 F 45 16 128/47 92 05/16/17 22:24 05/16/17 22:24 05/16/17 22:24 05/16/17 22:24 05/16/17 22:24 Blood Glucose* 163 Height: 5'9''/1.75 m Weight: 193 lbs/87.634 kg - HEENT Pupil (Motor): EOMI Mallampati: Trach (mature stoma) Teeth: Edentulous Oral Opening: Greater than 3 - GREEN PLUMBER LOC: Oriented GREEN PLUMBER Motor: Normal RUE, Normal LUE, Normal RLE, Normal LLE, Normal Face GREEN PLUMBER Sensory: Normal: RUE, LUE, RLE, LLE, Face - Cardiac Rhythm: Regular Murmur: None - Pulmonary Breath Sounds: bilateral Clear Respiratory Effort: Symmetrical Anesthesia Assess/Plan ASA Score: 3 Modified [place] Scale for Level of Consciousness: Cooperative, oriented, and tranquil Anesthetic Plan: General Monitoring Plan: Standard Monitors Recovery Plan: PACU
[2017-05-16] MEDS: traZODone 50 MG TABLET PO SCH (20:38)
[2017-05-16] MEDS: Topiramate 25 MG TABLET PO SCH (20:38)
[2017-05-16] MEDS: Gabapentin 100 MG CAPSULE PO SCH (20:38)
[2017-05-17] MEDS: 0.9 % Sodium Chloride 1,000 ML IVC SCH ×3 (01:26→13:00)
[2017-05-17 04:21] LABS: INR 1.5; Prothrombin Time 15.9 Seconds (9.4-12.1)
[2017-05-17 04:23] LABS: Basophils % 0.6 %; Eosinophils # 0.4 K/mcL (0.0-0.6); Eosinophils % 8.8 %; Hematocrit 37.2 % (37.5-50.1); Hemoglobin 11.6 g/dL (12.9-16.9); Immature Granulocytes % 0.4 % (0-4); Lymphocytes # 1.3 K/mcL (0.6-4.6); Mean Corpuscular HGB Conc 31.2 g/dL (31.6-35.5); Mean Corpuscular Hemoglobin 27.7 pg (28.0-33.3); Mean Corpuscular Volume 88.8 fL (83.0-100.0); Mean Platelet Volume 10.3 fL (9.4-12.4); Monocytes # 0.5 K/mcL (0.0-1.3); Monocytes % 10.2 %; Neutrophils # 2.7 K/mcL (1.6-8.9); Platelet Count 146 K/mcL (140-400); Red Blood Count 4.19 M/mcL (4.19-5.50); Red Cell Distribution Width 13.2 % (11.5-14.5)
[2017-05-17 04:29] LABS: Hemoglobin A1C 7.4 %
[2017-05-17 04:34] LABS: BUN/Creatinine Ratio 23 (6-26); Blood Urea Nitrogen 21 mg/dL (8-26); Calcium 8.5 mg/dL (8.6-10.8); Carbon Dioxide 23 mEq/L (19-29); Chloride 111 mEq/L (98-109); Glucose 99 mg/dL (70-99); Osmolality,Calculated 291 (280-300); Potassium 4.2 mEq/L (3.5-4.5); Sodium 139 mEq/L (136-145); eGFR For African Americans > 60 (> 60); eGFR For Non-African Americans > 60 (> 60)
[2017-05-17] MEDS: *HR* Morphine 2 MG/ML SYRINGE IVP PRN (05:40)
[2017-05-17] MEDS: Insulin LISPRO 300 UNITS/3 ML VIAL SQ SCH ×3 (07:46→17:49)
[2017-05-17] MEDS: ZETIA 10MG PO SCH (07:51)
[2017-05-17] MEDS: Insulin DETEMIR 100 UNIT/ML X5UNITS SQ SCH (08:21)
[2017-05-17] MEDS: BuPROPion XL (24 HR) 150 MG TABLET PO SCH (08:22)
[2017-05-17] MEDS: Pantoprazole 40 MG VIAL IVP SCH (08:22)
[2017-05-17] MEDS: amLODIPine 5 MG TABLET PO SCH (08:22)
[2017-05-17] MEDS ORDERED: Bupivacaine/EPI 1:200k 0.25%PF 30 ML VIAL ONE (09:33)
[2017-05-17] MEDS ORDERED: *HR* Propofol 200 MG/20 ML VIAL IVP ONE (10:26)
[2017-05-17] MEDS ORDERED: Ondansetron 4 MG/2 ML VIAL ONE (10:26)
[2017-05-17] MEDS ORDERED: Dexamethasone 4 MG/ML VIAL ONE (10:26)
[2017-05-17] MEDS ORDERED: *HR* Rocuronium Bromide 50 MG/5 ML VIAL ONE (10:26)
[2017-05-17] MEDS ORDERED: Lidocaine -MPF 2% 2 ML VIAL ONE (10:26)
[2017-05-17] MEDS ORDERED: *HR* FentaNYL (PF) 100 MCG/2 ML VIAL ONE (10:26)
[2017-05-17] MEDS ORDERED: Neostigmine Methylsulfate 3 MG/3 ML SYRINGE ONE (10:27)
[2017-05-17] MEDS ORDERED: Ondansetron 4 MG/2 ML VIAL IVP ONE (10:43)
[2017-05-17] MEDS ORDERED: *HR* HYDROmorphone (PF) 1 MG/ML SYRINGE IVP PRN ×2 (10:43→12:43)
[2017-05-17] MEDS ORDERED: *HR* Morphine 10 MG/ML VIAL ONE (10:55)
[2017-05-17] MEDS ORDERED: Ringers Solution, Lactated 500 ML IVC ONE (11:28)
--- NOTE | 2017-05-17 11:42 | Operative Note ---
Date of procedure: 05/17/17 Pre-op diagnosis: right upper abdominal pain, suspected cholelithiasis Post-op diagnosis: same Procedure: laparoscopic cholecystectomy, intra operative cholangiogram Complications: None apparent Anesthesia: GETA Local Anesthetics: 0.25% Sensorcaine HCL with Epinephrine 1:200,000 SubQ (cc) ( 20 mL) Surgeon: Fabian Hernandez Estimated blood loss (cc): 10 IV fluids (cc): 1,100 Specimen: gallbladder Condition: stable Disposition: PACU Procedure in Detail: The patient was brought to the operating room where she was placed supine upon the operating room table. The patient was appropriately identified as to person and procedure. The accuracy of that information as confirmed by the procedure team. The patient was then intubated and anesthetized under the supervision of Dr. Jack Morales. The patient has a well-established tracheostomy stoma - the endotracheal tube was inserted through this stoma. The abdomen was prepped and draped in usual sterile fashion. The patient had evidence of a previous periumbilical hernia repair via a transverse incision placed cephalad to the umbilicus. Due to this history, I initiated the laparoscopic approach in the right upper quadrant, midclavicular line. Several milliliters of 0.25% bupivacaine with 1-200,000 units epinephrine was infiltrated into the anterior abdominal wall, midclavicular line, inferior to the costal margin. A small transverse incision was made. The abdominal wall was grasped and elevated. A 5 mm Xcel port was established. A rigid laparoscope was placed within the obturator to visualize passage through the layers of the anterior abdominal wall. Once the abdominal cavity was accessed, the obturator was replaced with a rigid laparoscope, and the abdomen was insufflated with gaseous carbon dioxide. There was no obvious visible injury from establishing the port. The mesh prosthesis was readily visualized in the periumbilical area. I selected a entry port cephalad to the prosthesis for placement of the periumbilical port. Several milliliters of 0.25% bupivacaine with 1-200,000 epinephrine was infiltrated. A small transverse incision was made, the port was placed under direct visualization. The rigid laparoscope was shifted to this location to visualize placement of the remaining ports along the right costal margin in the subxiphoid and anterior axillary line. Both these sites were infiltrated with the bupivacaine with epinephrine solution. The gallbladder was grasped and retracted cephalad and to the right. There were multiple adhesions required dissection to facilitate exposure and subsequent dissection of the hepatoduodenal ligament. This dissection was aided with the use of the Ethicon harmonic nasima. I was able to identify and skeletonize the cystic duct. The cystic duct was clipped near the infundibulum of the gallbladder. Further dissection allowed identification of the cystic artery which was clipped twice proximally once distally. A Taut cholangiogram catheter was introduced via a separate percutaneous insertion site. The cystic duct was incised, the cholangiogram catheter was inserted. Using C-arm fluoroscopy a cholangiole was then completed by administering contrast. This demonstrated a normal-appearing common duct with smooth tapering counter to the sphincter. There was free flow of contrast into the duodenum. There were no filling defects. The proximal hepatobiliary tree highlighted and appeared normal as well. An intraoperative reading by [facility] confirmed these findings. The cholangiogram catheter was removed, the cystic duct was doubly clipped and divided. Cystic artery was divided. The gallbladder was dissected from the liver bed using the Ethicon harmonic nasima. Once from the liver bed, the gallbladder was placed in an endoscopic pouch and extracted through the periumbilical port. The gallbladder was retrieved and sent to pathology for analysis. The liver bed was inspected for adequate hemostasis. Once hemostasis was assured, the pneumoperitoneum was evacuated, the laparoscopic instrumentation removed. The fascia of the periumbilical port was closed with interrupted [id number] 0 Vicryl using S retractors. The port sites were closed with subcuticular 4-0 Vicryl. The incisions were sealed with Dermabond dermal adhesive. The patient was taken to PACU in stable condition. Needle, sponge, and instrument counts were correct at the close of the case. Total volume of 0.25% bupivacaine with 1 -200,000 epinephrine used during this procedure, 20 mL.
--- NOTE | 2017-05-17 11:49 | Anesthesia Evaluation Post Op ---
Date of Encounter: 05/17/17 Time of Encounter: 11:48 - Vital Signs Vital Signs: Vital Signs/O2 Sat, Most Current Temp Pulse Resp BP Pulse Ox 97.6 F 50 16 147/62 100 05/17/17 11:15 05/17/17 11:35 05/17/17 11:35 05/17/17 11:35 05/17/17 11:35 - Lungs Lungs: Clear Ascult./Percussion - Airway Airway: Non-obstructed - Cardiovascular Regular Rate - Mental Status Mental Status: Alert & Oriented, Answers Appropriately - Pain Pain Scale: 0 Pain Scale used: Numeric (1 - 10) - Nausea Vomiting Nausea Vomiting: Not Present - Hydration Hydration: NPO, Has not voided - Discharge PostOp Status: Transfer Patient to floor
[2017-05-17] MEDS ORDERED: Dextrose Gel 15 GM PO PRN (12:43)
[2017-05-17] MEDS ORDERED: *HR* Dextrose 50 % in Water (Syg) 50 ML SYRINGE IVP PRN (12:43)
[2017-05-17] MEDS ORDERED: Acetaminophen 325 MG TABLET PO PRN (12:43)
[2017-05-17] MEDS ORDERED: Ondansetron 4 MG/2 ML VIAL IVP PRN (12:43)
[2017-05-17] MEDS ORDERED: Naloxone 0.4 MG/ML INJ IVP PRN (12:43)
[2017-05-17] MEDS ORDERED: Acetaminophen/Butalbital/CaffeineTABLET PO PRN (12:43)
[2017-05-17] MEDS: *HR* OxyCODONE/APAP 5/325 TABLET PO PRN ×2 (12:59→20:41)
[2017-05-17] MEDS: Multivit/Ca/Min/Fe/FA 1 TAB TABLET PO SCH (13:01)
[2017-05-17] MEDS ORDERED: *HR* Metformin 500 MG TABLET PO SCH (18:00)
--- NOTE | 2017-05-17 18:46 | Internal Med Progress Note ---
Date of Encounter: 05/17/17 Time of Encounter: 18:30 - Assessment and plan (1) Abdominal pain Current Visit: Yes Status: Acute Assessment and plan: Pt reports RUQ/ right mid abd pain without radiation on admission. Patient states his pain tonight is minimal status post cholecystectomy. Qualifiers: Abdominal location: unspecified location Qualified Code(s): R10.9 - Unspecified abdominal pain (2) CAD (coronary artery disease) Current Visit: No Status: Chronic Assessment and plan: Pt denies chest pain. Continue statin, BB, pt on Plavix. Qualifiers: Coronary Disease-Associated Artery/Lesion type: bypass graft [place] vs. transplanted heart: [place] heart Associated angina: without angina Qualified Code(s): I25.810 - Atherosclerosis of coronary artery bypass graft(s) without angina pectoris (3) Diabetes Current Visit: No Status: Chronic Assessment and plan: Last a1c in December, ordered for a.m. Continue SSI, Accuchecks ac/hs, diabetic diet when ready to advance. Qualifiers: Diabetes mellitus type: type 2 Diabetes mellitus complication status: without complication Diabetes mellitus superintendent terminal insulin use: with intermediate use Qualified Code(s): E11.9 - Type 2 diabetes mellitus without complications ; Z79.4 - [facility] (current) use of insulin (4) Atrial fibrillation Current Visit: No Status: Chronic Assessment and plan: Rate controlled/slightly bradycardic at times. 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 Tracheostomy in place, no signs of infection. (6) Hypertension Current Visit: No Status: Chronic Assessment and plan: Chronic. Controlled. Continue home medications and trend vitals. Qualifiers: Hypertension type: essential hypertension Qualified Code(s): I10 - Essential (primary) hypertension (7) Hypothyroidism, unspecified Current Visit: No Status: Chronic Assessment and plan: Chronic. Continue home medications. TSH WNL in December, Qualifiers: Hypothyroidism type: other Qualified Code(s): E03.8 - Other specified hypothyroidism (8) Aneurysm Current Visit: Yes Status: Chronic Assessment and plan: Chronic. Stable on imaging, follow-up outpatient (9) Chronic anemia Current Visit: Yes Status: Chronic Assessment and plan: Hemoglobin has remained steady at 11.6 last 2 days. Continue to monitor labs tomorrow. (10) DVT prophylaxis Current Visit: No Status: Acute Assessment and plan: On Coumadin but subtherapeutic at this time, pharmacy is dosing. Observation patient. - Time Spent With Patient less than 15 minutes - Subjective Interval history: Patient was seen and assessed at 1830. Patient is awake, alert, pleasant. He states that he feels better today and that his pain is minimal. I have encouraged him to set up the side of the bed. He is eating and drinking. Abdomen is distended, nontender. Patient states he is not passing gas yet. Patient will stay overnight again be seen by Dr. West tomorrow is likely discharge tomorrow afternoon. - Constitutional Vitals: Temp Pulse Resp BP Pulse Ox 98.2 F 54 16 108/45 92 05/17/17 18:29 05/17/17 18:29 05/17/17 18:29 05/17/17 18:29 05/17/17 18:29 General appearance: Present: cooperative, A&O X 3, pleasant, no acute distress, answers questions appropriately - Head Head exam: Present: normal inspection - ENT ENT exam: Present: mucous membranes moist, normal exam - Neck Neck exam general surgery: Present: normal inspection. Absent: lymphadenopathy , tenderness - Respiratory Respiratory exam: Present: CTAB. Absent: decreased breath sounds, rales, respiratory distress, rhonchi, stridor, wheezes Additional comments: Patient has tracheostomy. - Cardiovascular Cardiovascular exam: Present: RRR, +S1, +S2. Absent: diastolic murmur, systolic murmur - GI/Abdominal GI/Abdominal exam: Present: distended, firm, hypoactive bowel sounds. Absent: tenderness - Extremities Exam Extremities exam: Present: normal inspection, warm - Neurological Exam Neurological exam: Present: alert, oriented X3, no focal deficits. Absent: facial droop, speech deficit - Skin Skin exam: Present: dry, intact, warm Internal Medicine: Result - Labs CBC & Chem 7: 05/17/17 03:32 05/17/17 03:32 Labs: Short CBC 05/17/17 Range/Units 03:32 WBC 5.0 (4.3-11.1) K/mcL Hgb 11.6 L (12.9-16.9) g/dL Hct 37.2 L (37.5-50.1) % Plt Count 146 (140-400) K/mcL Neutrophils # 2.7 (1.6-8.9) K/mcL BMP 05/17/17 03:32 Sodium 139 Potassium 4.2 Chloride 111 H Carbon Dioxide 23 BUN 21 Creatinine 0.91 Glucose 99 Calcium 8.5 L - ABG Interpretation ABG results: PT/INR, D-dimer PT 15.9 Seconds (9.4-12.1) H 05/17/17 03:32 - Impressions Impressions Cholangiogram,Operative 05/17/17 09:54 IMPRESSION: No choledocholithiasis. D/ / 05/17/2017 12:09:46 Martín Park MD / [facility]arter Interpreting Provider: Martín Park MD - VTE Reasons for not Prescribing Prophylaxis: Not indicated-Anticoagulated or INR therapeutic Consult Discharge Plan - Plan Referrals: Rd Mendoza MD [Primary Care Provider] -
[2017-05-17] MEDS ORDERED: Topiramate 25 MG TABLET PO SCH (21:00)
[2017-05-17] MEDS ORDERED: Insulin LISPRO 300 UNITS/3 ML VIAL SQ SCH (21:00)
[2017-05-17] MEDS ORDERED: traZODone 50 MG TABLET PO SCH (21:00)
[2017-05-17] MEDS ORDERED: Gabapentin 100 MG CAPSULE PO SCH (21:00)
[2017-05-18] MEDS: 0.9 % Sodium Chloride 1,000 ML IVC SCH (02:23)
[2017-05-18 05:37] LABS: Basophils % 0.3 %; Eosinophils # 0.1 K/mcL (0.0-0.6); Eosinophils % 1.7 %; Hemoglobin 11.1 g/dL (12.9-16.9); Immature Granulocytes % 0.5 % (0-4); Lymphocytes # 0.8 K/mcL (0.6-4.6); Lymphocytes % 13.7 %; Mean Corpuscular HGB Conc 30.8 g/dL (31.6-35.5); Mean Corpuscular Hemoglobin 27.7 pg (28.0-33.3); Mean Corpuscular Volume 89.8 fL (83.0-100.0); Mean Platelet Volume 10.8 fL (9.4-12.4); Monocytes # 0.4 K/mcL (0.0-1.3); Monocytes % 7.3 %; Neutrophils # 4.6 K/mcL (1.6-8.9); Platelet Count 151 K/mcL (140-400); Red Blood Count 4.01 M/mcL (4.19-5.50); Red Cell Distribution Width 13.3 % (11.5-14.5); Segmented Neutrophils % 76.5 %
[2017-05-18 05:55] LABS: Alanine Aminotransferase 34 Units/L (0-55); Albumin 2.7 g/dL (3.5-5.0); Albumin/Globulin Ratio 0.9 (1.1-2.2); Alkaline Phosphatase 83 Units/L (38-126); Aspartate Amino Transferase 25 Units/L (5-34); BUN/Creatinine Ratio 21 (6-26); Bilirubin,Total 0.4 mg/dL (0.2-1.2); Blood Urea Nitrogen 24 mg/dL (8-26); Calcium 8.3 mg/dL (8.6-10.8); Carbon Dioxide 26 mEq/L (19-29); Chloride 108 mEq/L (98-109); Globulin 3.1 g/dL (2.4-3.5); Glucose 161 mg/dL (70-99); Osmolality,Calculated 290 (280-300); Potassium 4.6 mEq/L (3.5-4.5); Sodium 136 mEq/L (136-145); Total Protein 5.8 g/dL (6.0-8.3); eGFR For African Americans > 60 (> 60); eGFR For Non-African Americans > 60 (> 60)
[2017-05-18] MEDS: *HR* OxyCODONE/APAP 5/325 TABLET PO PRN ×2 (06:06→10:58)
[2017-05-18] MEDS: Multivit/Ca/Min/Fe/FA 1 TAB TABLET PO SCH (08:10)
[2017-05-18] MEDS: Insulin LISPRO 300 UNITS/3 ML VIAL SQ SCH ×2 (08:11→11:47)
[2017-05-18] MEDS ORDERED: Insulin DETEMIR 100 UNIT/ML X5UNITS SQ SCH (09:00)
[2017-05-18] MEDS ORDERED: Pantoprazole 40 MG VIAL IVP SCH (09:00)
[2017-05-18] MEDS ORDERED: BuPROPion XL (24 HR) 150 MG TABLET PO SCH (09:00)
[2017-05-18] MEDS ORDERED: amLODIPine 5 MG TABLET PO SCH (09:00)
--- NOTE | 2017-05-18 10:27 | Discharge Summary ---
Date of Encounter: 05/18/17 Time of Encounter: 08:35 - Discharge Diagnosis (1) Abdominal pain Priority: Primary Status: Resolved Comments: Pt denies abd pain today. He has several surgical wounds to abd, no drainage, bleeding, swelling, or redness. Closed and well approximated. ABd is soft, slightly distended, bs hyperactive. He is eating his breakfast and has been eating since post op. Passing gas, no BM. Qualifiers: Abdominal location: unspecified location Qualified Code(s): R10.9 - Unspecified abdominal pain (2) CAD (coronary artery disease) Priority: Secondary Status: Chronic Comments: Denies cp. Continue BB, ASA, statin. Qualifiers: Coronary Disease-Associated Artery/Lesion type: bypass graft [place] vs. transplanted heart: [place] heart Associated angina: without angina Qualified Code(s): I25.810 - Atherosclerosis of coronary artery bypass graft(s) without angina pectoris (3) Diabetes Priority: Secondary Status: Chronic Comments: A1c 7.4. continue home medications and accuchecks. Follow up with PCP for ongoing care. 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 Continue home medications. Continue coumadin. Qualifiers: Atrial fibrillation type: paroxysmal Qualified Code(s): I48.0 - Paroxysmal atrial fibrillation (5) Nasopharyngeal cancer Priority: Secondary Status: Chronic Comments: History. Tracheostomy without signs of infection. (6) Hypertension Priority: Secondary Status: Chronic Comments: Chronic. Well controlled in inpatient setting. Continue home medications. Qualifiers: Hypertension type: essential hypertension Qualified Code(s): I10 - Essential (primary) hypertension (7) Hypothyroidism, unspecified Priority: Secondary Status: Chronic Comments: Chronic. TSH WNL in 12/30. Continue home medication. Qualifiers: Hypothyroidism type: other Qualified Code(s): E03.8 - Other specified hypothyroidism (8) Aneurysm Priority: Secondary Status: Chronic Comments: Chronic. Stable on imaging. Follow up outpatient. (9) Chronic anemia Priority: Secondary Status: Chronic Comments: Hgb has remained steady above 11. Post op value only slightly decrased from baseline. (10) DVT prophylaxis Priority: Secondary Status: Acute Comments: Pt on coumadin. Pt has been up in chair. (11) Status post cholecystectomy Priority: Secondary Status: Acute Comments: Pt had laparoscopic cholecystectomy yesterday. Pt doing well. Today is post op day 1. Pt will continue incentive spirometry at home. Pathology is still pending. Dr. Hernandez has written for Percocet 5/325mg 1 tablet every 6 hours as needed for pain not relieved by OTC medications. There is no drainage or bleeding from surgical sites. Pt is tolerating regular diet. - Discharge Medications Prescriptions: OxyCODONE/APAP 5/325 [Percocet 5/325 MG] 1 each PO Q6H PRN #20 tab PRN Reason: Pain Home Medications: Atorvastatin [Lipitor] 80 mg PO DAILY 06/11/15 [History] Levothyroxine [Synthroid] 250 mcg PO QAM 06/11/15 [History] Omeprazole [PriLOSEC] 20 mg PO QAM 06/11/15 [History] Sertraline [Zoloft] 100 mg PO QAM 06/11/15 [History] Tamsulosin [Flomax] 0.4 mg PO QAM 06/11/15 [History] BuPROPion XL (24 HR) [Wellbutrin Xl] 150 mg PO QAM 07/06/15 [History] Lisinopril 5 mg PO DAILY 08/10/15 [History] Insulin Glargine,Hum.rec.anlog [Lantus Solostar] 20 unit SQ DAILY 12/09/15 [ History] Multivitamin [Multivitamins] 1 tab PO DAILY 12/09/15 [History] traZODone [TraZODone] 50 mg PO HS 01/06/16 [History] Metoprolol [Lopressor] 25 mg PO BID 05/16/16 [History] Warfarin [Coumadin] 10 mg PO TUWETH 05/16/16 [History] amLODIPine [Norvasc] 5 mg PO DAILY 05/16/16 [History] Acetaminophen/Butalbital/Caffe [Fioricet] 1 each PO DAILY PRN 05/14/17 [History] Ezetimibe [Zetia] 10 mg PO DAILY 05/14/17 [History] Ferrous Sulfate [Iron] 325 mg PO DAILY 05/14/17 [History] Gabapentin [Neurontin] 100 mg PO HS 05/14/17 [History] Metformin HCl [Metformin HCl ER] 500 mg PO QPM 05/14/17 [History] Promethazine [Phenergan] 25 mg PO Q6HR PRN 05/14/17 [History] Topiramate [Topamax] 50 mg PO HS 05/14/17 [History] Warfarin [Coumadin] 5 mg PO SUMO 05/15/17 [History] Acetaminophen [Tylenol] 650 mg PO Q6HR PRN tab 05/18/17 [Rx] OxyCODONE/APAP 5/325 [Percocet 5/325 MG] 1 each PO Q6H PRN #20 tab 05/18/17 [Rx] Allergies/Adverse Reactions: Allergies No Known Allergies Allergy (Verified 05/14/17 13:40) Date of admission: 05/16/17 18:56 Primary care physician: Rd Mendoza MD Discharging clinician: Vielka Asher Anticipated date of discharge: 05/18/17 - Patient Status Disposition: Home, Self-Care Condition: Good Functional capacity at discharge: independent ambulation Overall status at discharge: patient is back to baseline - Discharge Instructions Follow Up With: Rd Mendoza MD [Primary Care Provider] - 05/23/17 2:00 pm Additional Instructions: Follow up with Dr Hernandez for a recheck as scheduled. Follow up with your PCP for a follow up visit in the next 7-10 days. Resume your normal home medications. REsume your normal diet and return to your normal activities slowly and as tolerated. Return to the ER as needed for any other problems or concerns. Follow-up with Dr. Hernandez, . Please call office to make appointment Regular diet Activity as tolerated, lifting limited to less than 20 pounds Patient may shower, wash incisions with soap and water As him home meds; resume warfarin, 05/19/17, at usual daily dose Tylenol, ibuprofen, Motrin, Advil, Aleve, etc. as needed for pain Percocet 5/325, #20; one every 6 hours as needed for pain not relieved by over- the-counter medications - Diet and Activity Activity: increase activity as tolerated Diet: advance to your usual diet Hospital course: Mr. Salmeron is a 77 year old male with past medical history of coronary artery disease, diabetes, A. fib, nasopharyngeal cancer with tracheostomy, congestive heart failure, hypertension, aneurysm, chronic anemia. He presented to the emergency department with 2 week history of anorexia, poor appetite, nausea approximate one hour after eating and reduced by mouth intake leading to the anorexia. He states that a few days ago he developed new right sided flank and right upper quadrant pain and rated a 10/10 aching with no radiation. He denied any issues with bowel or bladder. Patient had a gallbladder ultrasound that showed biliary sludge with a 10 mm nonmobile gallstone lodged in the neck, no sonographic evidence of cholecystitis , and a mildly fatty liver. Patient was seen by Dr. Hernandez on May 16. It was determined at that time that he would have surgery to remove the stone. Patient had laparoscopic cholecystectomy by Dr. hernandez the next day. He reportedly during the day that he felt much better and his abdominal pain had almost resolved. He has advanced to a regular diet and denies abdominal pain other than at the surgical incision sites. Dr. hernandez has prescribed Percocet for him. The sites are all intact with no leading, drainage, oozing, or redness. He states that he has not had a bowel movement, but he is passing gas. He has been up ambulating in his room. His labs are within normal limits, vital signs are within normal limits. Patient will follow up in the office with Dr. hernandez for a postop evaluation. Patient is stable and appropriate for discharge. - Time Spent with Patient Total time spent providing and/or coordinating discharge services: Less than 30 minutes - Constitutional Vitals: Temp Pulse Resp BP Pulse Ox 98.1 F 54 16 105/56 92 05/18/17 07:14 05/18/17 07:14 05/18/17 07:14 05/18/17 07:14 05/18/17 07:14 General appearance: Present: cooperative, A&O X 3, pleasant, no acute distress, answers questions appropriately - Head Head exam: Present: normal inspection - Eye Eye exam: Present: normal appearance, conjuntiva pink - ENT ENT exam: Present: mucous membranes moist, normal exam, normal external ear exam Additional comments: tracheostomy - Neck Neck exam general surgery: Present: supple. Absent: tenderness - Respiratory Respiratory exam: Present: CTAB. Absent: rales, respiratory distress, rhonchi, stridor, wheezes - Cardiovascular Cardiovascular exam: Present: RRR, +S1, +S2. Absent: diastolic murmur, systolic murmur - GI/Abdominal GI/Abdominal exam: Present: distended, hyperactive bowel sounds, normal bowel sounds, soft. Absent: tenderness - Extremities Exam Extremities exam: Present: warm, radial pulses palpable and symetrical. Absent : pedal edema, tenderness - Neurological Exam Neurological exam: Present: alert, oriented X3, no focal deficits. Absent: facial droop, speech deficit - VTE Reasons for not Prescribing Prophylaxis: Not indicated-Anticoagulated or INR therapeutic Documentation of Mechanical Device: Intermittent pneumatic compression device
[2017-05-18 11:12] VITALS: BP 123/56
--- NOTE | 2017-05-18 13:18 | General Surgery Progress Note ---
Date of Encounter: 05/18/17 Time of Encounter: 13:11 Subjective Patient reports: feels better, still having pain, pain is less Narrative: General Surgery - POD #1 Patient feeling much improved, preoperative nausea resolved; tolerating regular diet. Patient is complaining of incisional pain around the port sites along the right costal margin particularly with cough The ports are clean and dry and healing well. Lungs: Rales right base, left clear. Patient encouraged to continue incentive spirometry post discharge at home Abdomen: Soft, minimal tenderness, subcostal region. Active bowel sounds. No obvious intra-abdominal masses, no rebound. Laboratories: White count 6.0, hemoglobin 11.1, hematocrit 36.0; platelet count 151,000; Electrolytes, BUN, creatinine notable for potassium 4.6. Bilirubin, AST, ALT , alkaline phosphatase normal Pathology: Pending Impression: Postoperative day #1, status post laparoscopic cholecystectomy with intraoperative cholangiogram. Resolution of preoperative right upper quadrant/right flank pain and nausea. Anorexia also resolved. Satisfactory status for discharge home Recommendations: Outpatient follow-up with me, 05/26/2017. Tylenol, ibuprofen, Motrin, Advil, Aleve, etc as tolerated for pain Prescription for Percocet 5/325, #20, and every 6 hours as needed for pain not relieved by [id number] medications. Regular diet Activity as tolerated, lifting limited to less than 20 pounds Resume warfarin tomorrow, usual daily dose Objective Vital Signs - Last 8 Hours Temp Pulse Resp BP Pulse Ox 05/18/17 11:06 98.2 F 63 17 123/56 93 05/18/17 07:14 98.1 F 54 16 105/56 92 Intake and Output 05/17/17 05/18/17 05/18/17 23:59 07:59 15:59 Intake Total 370 / 370 1000 / 1000 240 / 240 Output Total 250 / 250 600 / 600 200 / 200 Balance 120 / 120 400 / 400 40 / 40 Intake: IV Fluids 1000 / 1000 0.9 % Sodium Chloride 1, 1000 / 1000 000 ML @ 75 mls/hr IVC . [id number] ZOLTAN Rx#: [id number] Oral 370 / 370 240 / 240 Output: Urine 250 / 250 600 / 600 200 / 200 Other: Meal Dinner Breakfast Percent of Meal Consumed 95% 50% # Voids 1 Weight 93.259 kg Blood Glucose* 207 157 129 Patient Weight 05/18/17 23:59 Weight 93.259 kg - Labs 05/18/17 04:32 05/18/17 04:32 Diabetes panel 05/18/17 Range/Units 04:32 Sodium 136 (136-145) mEq/L Potassium 4.6 H (3.5-4.5) mEq/L Chloride 108 (98-109) mEq/L Carbon Dioxide 26 (19-29) mEq/L BUN 24 (8-26) mg/dL Creatinine 1.15 (0.72-1.25) mg/dL Glucose 161 H (70-99) mg/dL Calcium 8.3 L (8.6-10.8) mg/dL AST 25 (5-34) Units/L ALT 34 (0-55) Units/L Alkaline Phosphatase 83 (38-126) Units/L Albumin 2.7 L (3.5-5.0) g/dL Calcium panel 05/18/17 Range/Units 04:32 Calcium 8.3 L (8.6-10.8) mg/dL Albumin 2.7 L (3.5-5.0) g/dL Pituitary panel 05/18/17 Range/Units 04:32 Sodium 136 (136-145) mEq/L Potassium 4.6 H (3.5-4.5) mEq/L Chloride 108 (98-109) mEq/L Carbon Dioxide 26 (19-29) mEq/L BUN 24 (8-26) mg/dL Creatinine 1.15 (0.72-1.25) mg/dL Glucose 161 H (70-99) mg/dL Calcium 8.3 L (8.6-10.8) mg/dL Adrenal panel 05/18/17 Range/Units 04:32 Sodium 136 (136-145) mEq/L Potassium 4.6 H (3.5-4.5) mEq/L Chloride 108 (98-109) mEq/L Carbon Dioxide 26 (19-29) mEq/L BUN 24 (8-26) mg/dL Creatinine 1.15 (0.72-1.25) mg/dL Glucose 161 H (70-99) mg/dL Calcium 8.3 L (8.6-10.8) mg/dL Total Bilirubin 0.4 (0.2-1.2) mg/dL AST 25 (5-34) Units/L ALT 34 (0-55) Units/L Alkaline Phosphatase 83 (38-126) Units/L Albumin 2.7 L (3.5-5.0) g/dL - VTE Reasons for not Prescribing Prophylaxis: Not indicated-Anticoagulated or INR therapeutic Documentation of Mechanical Device: Intermittent pneumatic compression device Consult Discharge Plan - Plan Additional Instructions: Follow up with Dr Hernandez for a recheck as scheduled. Follow up with your PCP for a follow up visit in the next 7-10 days. Resume your normal home medications. REsume your normal diet and return to your normal activities slowly and as tolerated. Return to the ER as needed for any other problems or concerns. Referrals: Rd Mendoza MD [Primary Care Provider] - 05/23/17 2:00 pm
--- NOTE | 2017-05-18 13:21 | Discharge Summary ---
Outpatient Proc Discharge Plan - Plan Additional Instructions: Follow up with Dr Hernandez for a recheck as scheduled. Follow up with your PCP for a follow up visit in the next 7-10 days. Resume your normal home medications. REsume your normal diet and return to your normal activities slowly and as tolerated. Return to the ER as needed for any other problems or concerns. Follow-up with Dr. Hernandez, . Please call office to make appointment Regular diet Activity as tolerated, lifting limited to less than 20 pounds Patient may shower, wash incisions with soap and water As him home meds; resume warfarin, 05/19/17, at usual daily dose Tylenol, ibuprofen, Motrin, Advil, Aleve, etc. as needed for pain Percocet 5/325, #20; one every 6 hours as needed for pain not relieved by over- the-counter medications Prescriptions: OxyCODONE/APAP 5/325 [Percocet 5/325 MG] 1 each PO Q6H PRN #20 tab PRN Reason: Pain Home Medications: Atorvastatin [Lipitor] 80 mg PO DAILY 06/11/15 [History] Levothyroxine [Synthroid] 250 mcg PO QAM 06/11/15 [History] Omeprazole [PriLOSEC] 20 mg PO QAM 06/11/15 [History] Sertraline [Zoloft] 100 mg PO QAM 06/11/15 [History] Tamsulosin [Flomax] 0.4 mg PO QAM 06/11/15 [History] BuPROPion XL (24 HR) [Wellbutrin Xl] 150 mg PO QAM 07/06/15 [History] Lisinopril 5 mg PO DAILY 08/10/15 [History] Insulin Glargine,Hum.rec.anlog [Lantus Solostar] 20 unit SQ DAILY 12/09/15 [ History] Multivitamin [Multivitamins] 1 tab PO DAILY 12/09/15 [History] traZODone [TraZODone] 50 mg PO HS 01/06/16 [History] Metoprolol [Lopressor] 25 mg PO BID 05/16/16 [History] Warfarin [Coumadin] 10 mg PO TUWETH 05/16/16 [History] amLODIPine [Norvasc] 5 mg PO DAILY 05/16/16 [History] Acetaminophen/Butalbital/Caffe [Fioricet] 1 each PO DAILY PRN 05/14/17 [History] Ezetimibe [Zetia] 10 mg PO DAILY 05/14/17 [History] Ferrous Sulfate [Iron] 325 mg PO DAILY 05/14/17 [History] Gabapentin [Neurontin] 100 mg PO HS 05/14/17 [History] Metformin HCl [Metformin HCl ER] 500 mg PO QPM 05/14/17 [History] Promethazine [Phenergan] 25 mg PO Q6HR PRN 05/14/17 [History] Topiramate [Topamax] 50 mg PO HS 05/14/17 [History] Warfarin [Coumadin] 5 mg PO SUMO 05/15/17 [History] Acetaminophen [Tylenol] 650 mg PO Q6HR PRN tab 05/18/17 [Rx] OxyCODONE/APAP 5/325 [Percocet 5/325 MG] 1 each PO Q6H PRN #20 tab 05/18/17 [Rx]
== END 2017-05-18 14:38 | disposition home or self-care (01) | DRG 418 ==
LOC: EMEROO 13:35 → 3BNU 13:35
PROVIDERS: ADMIT Internal Medicine Hematology & Oncology; ATTEND Nurse Practitioner Family

== ENCOUNTER 2017-08-17 17:20 | Inpatient (IN) ==
--- NOTE | 2017-08-17 17:55 | Emergency Department Note ---
START Narrative - START START: I examined this patient and my medical decision-making was reviewed with the emergency medicine resident. I agree with the documented findings, disposition and treatment plan as described except to the extent set forth below. Patient seen with emergency medicine resident Dr. Faustino Zuluaga, Please see a copy of his note for details of the H&P, ED evaluation, management and disposition. I have independently evaluated the patient and confirmed appropriate portions of the history and physical exam. Briefly: 77-year-old male presents M laboratory with significant other multiple chief complaints including small shortness breath and chest discomfort in 3 weeks of abdominal pain. Abdomen is surgically benign. Patient's EKG triaged to showed what might be concerning T-wave inversions in the inferior leads and ST depression in V5 and V6 compared to a prior EKG. Patient has known history of 4 stents and bypass surgery. Providing 30 minutes critical care services patient abdominal pelvic noncontrast CT pending troponin pending of the blood work pending disposition pending
[2017-08-17 18:30] LABS: Basophils # 0.1 K/mcL (0.0-0.2); Basophils % 0.7 %; Eosinophils % 13.7 %; Hematocrit 35.1 % (37.5-50.1); Hemoglobin 11.4 g/dL (12.9-16.9); Immature Granulocytes % 0.3 % (0-4); Lymphocytes # 1.5 K/mcL (0.6-4.6); Lymphocytes % 20.6 %; Mean Corpuscular HGB Conc 32.5 g/dL (31.6-35.5); Mean Corpuscular Hemoglobin 28.4 pg (28.0-33.3); Mean Corpuscular Volume 87.3 fL (83.0-100.0); Mean Platelet Volume 10.1 fL (9.4-12.4); Monocytes # 0.5 K/mcL (0.0-1.3); Monocytes % 7.5 %; Platelet Count 167 K/mcL (140-400); Red Blood Count 4.02 M/mcL (4.19-5.50); Red Cell Distribution Width 14.8 % (11.5-14.5); Segmented Neutrophils % 57.2 %
[2017-08-17 18:40] LABS: BUN/Creatinine Ratio 30 (6-26); Blood Urea Nitrogen 30 mg/dL (8-26); Calcium 9.4 mg/dL (8.6-10.8); Carbon Dioxide 25 mEq/L (19-29); Chloride 105 mEq/L (98-109); Glucose 196 mg/dL (70-99); Osmolality,Calculated 298 (280-300); Potassium 4.5 mEq/L (3.5-4.5); Sodium 138 mEq/L (136-145); eGFR For African Americans > 60 (> 60); eGFR For Non-African Americans > 60 (> 60)
[2017-08-17 18:46] LABS: INR 1.7; Prothrombin Time 18.6 Seconds (9.4-12.1)
[2017-08-17 18:48] LABS: Activated Partial Thrombo Time 33.7 Seconds (26.0-36.0)
--- NOTE | 2017-08-17 18:49 | Emergency Department Note ---
Disposition Clinical Impression: Acute electrocardiogram changes Chest pain Qualifiers: Chest pain type: unspecified Qualified Code(s): R07.9 - Chest pain, unspecified Abdominal pain Qualifiers: Abdominal location: lower abdomen, unspecified Qualified Code(s): R10.30 - Lower abdominal pain, unspecified Disposition: Still a Patient Condition: Undetermined Referrals: Rd Mendoza MD [Primary Care Provider] - General Adult HPI - General Chief complaint: ED Chest Pain Stated complaint: sent from PCP, CP Time Seen by Provider: 08/17/17 17:47 Source: patient, family Limitations: no limitations Nursing Notes Reviewed: Yes Vital Signs Reviewed: Yes - History of Present Illness HPI Narrative: 77-year-old male with a past medical history of significant coronary arterial disease. He has had a CABG and multiple stents. He reports that he had a twinge of pain in his left chest and called his PCP. Due to a blood pressure of 175 systolic he was told to come to the emergency department. He reports that the chest pain is intermittent. He most recently had a heart attack approximately a month ago where he went to [facility]. He denies having a fever or increased shortness of breath or cough. Pain Severity: moderate Pain Scale: 5 Improves with: nothing Worsens with: nothing Associated symptoms: Reports: denies other symptoms Treatments Prior to Arrival: none - Related Data Home Medications Medication Instructions Recorded Confirmed Atorvastatin [Lipitor] 80 mg PO DAILY 06/11/15 06/02/17 Levothyroxine [Synthroid] 250 mcg PO QAM 06/11/15 06/02/17 Omeprazole [PriLOSEC] 20 mg PO QAM 06/11/15 06/02/17 Sertraline [Zoloft] 100 mg PO QAM 06/11/15 06/02/17 Tamsulosin [Flomax] 0.4 mg PO QAM 06/11/15 06/02/17 BuPROPion XL (24 HR) [Wellbutrin 150 mg PO QAM 07/06/15 06/02/17 Xl] Lisinopril 5 mg PO DAILY 08/10/15 06/02/17 Insulin Glargine,Hum.rec.anlog 20 unit SQ DAILY 12/09/15 06/02/17 [Lantus Solostar] Multivitamin [Multivitamins] 1 tab PO DAILY 12/09/15 06/02/17 traZODone [TraZODone] 50 mg PO HS 01/06/16 06/02/17 Metoprolol [Lopressor] 25 mg PO BID 05/16/16 06/02/17 amLODIPine [Norvasc] 5 mg PO DAILY 05/16/16 06/02/17 Acetaminophen/Butalbital/Caffe 1 each PO DAILY PRN 05/14/17 06/02/17 [Fioricet] Ezetimibe [Zetia] 10 mg PO DAILY 05/14/17 06/02/17 Ferrous Sulfate [Iron] 325 mg PO DAILY 05/14/17 06/02/17 Gabapentin [Neurontin] 100 mg PO HS 05/14/17 06/02/17 Metformin HCl [Metformin HCl ER] 500 mg PO QPM 05/14/17 06/02/17 Promethazine [Phenergan] 25 mg PO Q6HR PRN 05/14/17 06/02/17 Topiramate [Topamax] 50 mg PO HS 05/14/17 06/02/17 Warfarin [Coumadin] 5 mg PO DAILY 05/15/17 06/02/17 Previous Rx's Medication Instructions Recorded Acetaminophen [Tylenol] 650 mg PO Q6HR PRN tab 05/18/17 OxyCODONE/APAP 5/325 [Percocet 1 each PO Q6H PRN #20 tab 05/18/17 5/325 MG] OxyCODONE/APAP 5/325 [Percocet 1 each PO Q6HR PRN #12 tablet 06/05/17 5/325 MG] OxyCODONE/APAP 10/325 [Percocet 1 each PO Q6HR PRN #12 tablet 06/13/17 10/325 MG] Allergies Allergy/AdvReac Type Severity Reaction Status Date / Time No Known Allergies Allergy Verified 06/24/17 21:47 All systems ED: reviewed and negative except as stated. Constitutional: Denies: fever ENT ED: Denies: throat pain Cardiovascular: Reports: chest pain Respiratory: Denies: cough Gastrointestinal: Reports: abdominal pain (Suprapubic) Genitourinary: Reports: other (BPH and has to self catheter) Integumentary: Denies: rash Past Medical History - Past Medical History Medical history: Reports: atrial fibrillation, cancer, coronary artery disease, CVA, diabetes, hypertension, peripheral artery disease, SVT, thyroid disease Surgical history: Reports: angioplasty/stent, appendectomy, coronary bypass ( CABG), herniorrhaphy, LE vascular intervention, tracheostomy Psychiatric history: Reports: no psych history - Social History Smoking Status: Former smoker Smokeless Tobacco Status: No Alcohol use: Reports: none Drug use: Reports: none Physical Exam - General Limitations: no limitations General appearance: alert, in no apparent distress - Head Head exam: atraumatic - Eye Eye exam: Present: normal appearance, PERRL - ENT ENT exam: normal exam, normal oropharynx - Neck Neck exam: Present: normal inspection - Chest Chest inspection: Present: normal inspection - Respiratory Respiratory exam: Present: normal lung sounds bilaterally. Absent: respiratory distress - Cardiovascular Cardiovascular exam: Present: regular rate, normal rhythm - Abdominal Exam Abdominal exam: Present: soft, tenderness (Suprapubic. No guarding or rebound) - Extremities Exam Extremities exam: Present: normal inspection - Neurological Exam Neurological exam: Present: alert, oriented X3 - Psychiatric Psychiatric exam: Present: normal affect, normal mood - Skin Skin exam: Present: warm, dry Course Course Narrative: EKG is showing some new changes. There is lateral T wave inversion. No significant ST changes. There is also inferior T-wave inversions but it does appear to be mostly present on a EKG from January 2017. Due to the abdominal pain will get a CT scan of his abdomen and do a cardiac workup. this patient has been signed out to the night team for final disposition and to follow up on labwork. Vital Signs Temperature 98.3 F 08/17/17 17:25 Pulse Rate 52 08/17/17 17:25 Respiratory Rate 20 08/17/17 17:25 Blood Pressure 144/58 08/17/17 17:25 O2 Sat by Pulse Oximetry 96 08/17/17 17:25 Temperature 98.3 F 08/17/17 17:25 Pulse Rate 53 08/17/17 17:53 Respiratory Rate 13 08/17/17 17:53 Blood Pressure 162/92 08/17/17 17:53 O2 Sat by Pulse Oximetry 96 08/17/17 17:53 Oxygen Delivery Oxygen Delivery Room Air Medical Decision Making - Medical Records Medical records reviewed: Yes I reviewed the patient's medical records. - Lab Data Lab results reviewed: Yes I reviewed the patient's lab results. Result diagrams: 08/17/17 18:14 08/17/17 18:14 Lab Results 08/17/17 08/17/17 08/17/17 Range/Units 18:14 18:14 18:14 WBC 7.0 (4.3-11.1) K/mcL RBC 4.02 L (4.19-5.50) M/mcL Hgb 11.4 L (12.9-16.9) g/dL Hct 35.1 L (37.5-50.1) % MCV 87.3 (83.0-100.0) fL MCH 28.4 (28.0-33.3) pg MCHC 32.5 (31.6-35.5) g/dL RDW 14.8 H (11.5-14.5) % Plt Count 167 (140-400) K/mcL MPV 10.1 (9.4-12.4) fL Immature Gran % 0.3 (0-4) % Seg Neutrophils % 57.2 % Lymphocytes % 20.6 % Monocytes % 7.5 % Eosinophils % 13.7 % Basophils % 0.7 % Neutrophils # 4.0 (1.6-8.9) K/mcL Lymphocytes # 1.5 (0.6-4.6) K/mcL Monocytes # 0.5 (0.0-1.3) K/mcL Eosinophils # 1.0 H (0.0-0.6) K/mcL Basophils # 0.1 (0.0-0.2) K/mcL PT 18.6 H (9.4-12.1) Seconds INR 1.7 Sodium 138 (136-145) mEq/L Potassium 4.5 (3.5-4.5) mEq/L Chloride 105 (98-109) mEq/L Carbon Dioxide 25 (19-29) mEq/L BUN 30 H (8-26) mg/dL Creatinine 0.99 (0.72-1.25) mg/dL Est GFR ( Amer) > 60 (> 60) Est GFR (Non-Af Amer) > 60 (> 60) BUN/Creatinine Ratio 30 H (6-26) Glucose 196 H (70-99) mg/dL Calculated Osmolality 298 (280-300) Calcium 9.4 (8.6-10.8) mg/dL - Radiology Data Radiology results reviewed: Yes I reviewed the patient's radiology results. - EKG Data EKG #1 EKG attestation: Yes I reviewed and interpreted this EKG. EKG shows normal: sinus rhythm Rate: normal Rhythm: NSR [place]/QRS: normal T wave inversions noted in: II, III, aVF, v4, v5, v6 Interpretation: other (New T wave inversions in lateral leads)
[2017-08-17 19:14] LABS: Bilirubin,Urine Negative (Negative); Blood,Urine Negative (Negative); Clarity,Urine Clear (Clear); Color,Urine Yellow (Yellow); Glucose,Urine (UA) Normal (Normal); Ketones,Urine Negative (Negative); Leukocyte Esterase,Urine Small (Negative); Nitrite,Urine Negative (Negative); Protein,Urine Trace mg/dL (Neg-Trace); Specific Gravity,Urine 1.018 (1.010-1.025); Urobilinogen,Urine Normal (Normal)
[2017-08-17 19:16] LABS: Bacteria,Urine None Seen per hpf (None-Few); Hyaline Casts,Urine None Seen per lpf (None-Few); Squamous Epithelial Cell,Urine Moderate per lpf (None-Few); WBC,Urine 15-30 per hpf (0-3)
--- NOTE | 2017-08-17 19:49 | Emergency Department Note ---
Disposition Clinical Impression: Acute electrocardiogram changes, Bladder wall thickening, Rectal mass Chest pain Qualifiers: Chest pain type: unspecified Qualified Code(s): R07.9 - Chest pain, unspecified Abdominal pain Qualifiers: Abdominal location: lower abdomen, unspecified Qualified Code(s): R10.30 - Lower abdominal pain, unspecified Disposition: Still a Patient Condition: Undetermined Referrals: Rd Mendoza MD [Primary Care Provider] - Forms: ED Satisfaction Letter Time of Disposition: 19:49 Chest Pain HPI - General Chief Complaint: ED Chest Pain Stated Complaint: sent from PCP, CP Time Seen by Provider: 08/17/17 17:47 Source: patient, family Limitations: no limitations - History of Present Illness Severity scale (1-10): 5 - Related Data Home Medications Medication Instructions Recorded Confirmed Atorvastatin [Lipitor] 80 mg PO DAILY 06/11/15 06/02/17 Levothyroxine [Synthroid] 250 mcg PO QAM 06/11/15 06/02/17 Omeprazole [PriLOSEC] 20 mg PO QAM 06/11/15 06/02/17 Sertraline [Zoloft] 100 mg PO QAM 06/11/15 06/02/17 Tamsulosin [Flomax] 0.4 mg PO QAM 06/11/15 06/02/17 BuPROPion XL (24 HR) [Wellbutrin 150 mg PO QAM 07/06/15 06/02/17 Xl] Lisinopril 5 mg PO DAILY 08/10/15 06/02/17 Insulin Glargine,Hum.rec.anlog 20 unit SQ DAILY 12/09/15 06/02/17 [Lantus Solostar] Multivitamin [Multivitamins] 1 tab PO DAILY 12/09/15 06/02/17 traZODone [TraZODone] 50 mg PO HS 01/06/16 06/02/17 Metoprolol [Lopressor] 25 mg PO BID 05/16/16 06/02/17 amLODIPine [Norvasc] 5 mg PO DAILY 05/16/16 06/02/17 Acetaminophen/Butalbital/Caffe 1 each PO DAILY PRN 05/14/17 06/02/17 [Fioricet] Ezetimibe [Zetia] 10 mg PO DAILY 05/14/17 06/02/17 Ferrous Sulfate [Iron] 325 mg PO DAILY 05/14/17 06/02/17 Gabapentin [Neurontin] 100 mg PO HS 05/14/17 06/02/17 Metformin HCl [Metformin HCl ER] 500 mg PO QPM 05/14/17 06/02/17 Promethazine [Phenergan] 25 mg PO Q6HR PRN 05/14/17 06/02/17 Topiramate [Topamax] 50 mg PO HS 05/14/17 06/02/17 Warfarin [Coumadin] 5 mg PO DAILY 05/15/17 06/02/17 Previous Rx's Medication Instructions Recorded Acetaminophen [Tylenol] 650 mg PO Q6HR PRN tab 05/18/17 OxyCODONE/APAP 5/325 [Percocet 1 each PO Q6H PRN #20 tab 05/18/17 5/325 MG] OxyCODONE/APAP 5/325 [Percocet 1 each PO Q6HR PRN #12 tablet 06/05/17 5/325 MG] OxyCODONE/APAP 10/325 [Percocet 1 each PO Q6HR PRN #12 tablet 06/13/17 10/325 MG] Allergies Allergy/AdvReac Type Severity Reaction Status Date / Time No Known Allergies Allergy Verified 06/24/17 21:47 Constitutional: Denies: fever ENT ED: Denies: throat pain Cardiovascular: Reports: chest pain Respiratory: Denies: cough Gastrointestinal: Reports: abdominal pain (Suprapubic) Genitourinary: Reports: other (BPH and has to self catheter) Integumentary: Denies: rash Chest Pain PMH - Past Medical History Medical history: Reports: atrial fibrillation, cancer, coronary artery disease, CVA, diabetes, hypertension, peripheral artery disease, SVT, thyroid disease Surgical history: Reports: angioplasty/stent, appendectomy, coronary bypass ( CABG), herniorrhaphy, LE vascular intervention, tracheostomy Psychiatric history: Reports: no psych history - Social History Smoking Status: Former smoker Alcohol use: Reports: none Drug use: Reports: none Physical Exam - General Limitations: no limitations General appearance: alert, in no apparent distress Course - Reevaluation(s) Reevaluation #1: Patient signed out from the daytime team. Patient will be admitted for chest pain rule out. Initial EKG showed some t-wave changes but nothing specific and troponin was unremarkable. Chest x-ray was clear. Abdominal CT did show a right-sided unilateral urinary bladder wall thickening and rectal thickening concerning for malignancy. These findings were relayed to the hospitalist. Patient agreeable with plan. Patient stable. Time: 19:47 Vital Signs Temperature 98.3 F 08/17/17 17:25 Pulse Rate 52 08/17/17 17:25 Respiratory Rate 20 08/17/17 17:25 Blood Pressure 144/58 08/17/17 17:25 O2 Sat by Pulse Oximetry 96 08/17/17 17:25 Temperature 98.3 F 08/17/17 17:25 Pulse Rate 48 08/17/17 18:55 Respiratory Rate 16 08/17/17 18:55 Blood Pressure 149/67 08/17/17 18:55 O2 Sat by Pulse Oximetry 99 08/17/17 18:55 Oxygen Delivery Oxygen Delivery Room Air Chest Pain - Lab Data Result diagrams: 08/17/17 18:14 08/17/17 18:14 Lab Results 08/17/17 08/17/17 08/17/17 Range/Units 18:14 18:14 18:14 WBC 7.0 (4.3-11.1) K/mcL RBC 4.02 L (4.19-5.50) M/mcL Hgb 11.4 L (12.9-16.9) g/dL Hct 35.1 L (37.5-50.1) % MCV 87.3 (83.0-100.0) fL MCH 28.4 (28.0-33.3) pg MCHC 32.5 (31.6-35.5) g/dL RDW 14.8 H (11.5-14.5) % Plt Count 167 (140-400) K/mcL MPV 10.1 (9.4-12.4) fL Immature Gran % 0.3 (0-4) % Seg Neutrophils % 57.2 % Lymphocytes % 20.6 % Monocytes % 7.5 % Eosinophils % 13.7 % Basophils % 0.7 % Neutrophils # 4.0 (1.6-8.9) K/mcL Lymphocytes # 1.5 (0.6-4.6) K/mcL Monocytes # 0.5 (0.0-1.3) K/mcL Eosinophils # 1.0 H (0.0-0.6) K/mcL Basophils # 0.1 (0.0-0.2) K/mcL PT 18.6 H (9.4-12.1) Seconds INR 1.7 APTT 33.7 (26.0-36.0) Seconds Sodium (136-145) mEq/L Potassium (3.5-4.5) mEq/L Chloride (98-109) mEq/L Carbon Dioxide (19-29) mEq/L BUN (8-26) mg/dL Creatinine (0.72-1.25) mg/dL Est GFR ( Amer) (> 60) Est GFR (Non-Af Amer) (> 60) BUN/Creatinine Ratio (6-26) Glucose (70-99) mg/dL Calculated Osmolality (280-300) Calcium (8.6-10.8) mg/dL Troponin I (0-0.03) ng/mL B-Natriuretic Peptide 99 (0-100) pg/mL Urine Color (Yellow) Urine Clarity (Clear) Urine pH (5.0-8.0) pH Units Ur Specific [place] (1.010-1.025) Urine Protein (Neg-Trace) mg/dL Urine Glucose (UA) (Normal) mg/dL Urine Ketones (Negative) mg/dL Urine Blood (Negative) Urine Nitrite (Negative) Urine Bilirubin (Negative) Urine Urobilinogen (Normal) mg/dL Ur Leukocyte Esterase (Negative) Urine Microscopic RBC (0-3) per hpf Urine Microscopic WBC (0-3) per hpf Ur Squamous Epith Cells (None-Few) per lpf Urine Bacteria (None-Few) per hpf Hyaline Casts (None-Few) per lpf Ur Culture Indicated? (NO) 08/17/17 08/17/17 08/17/17 Range/Units 18:14 18:14 19:00 WBC (4.3-11.1) K/mcL RBC (4.19-5.50) M/mcL Hgb (12.9-16.9) g/dL Hct (37.5-50.1) % MCV (83.0-100.0) fL MCH (28.0-33.3) pg MCHC (31.6-35.5) g/dL RDW (11.5-14.5) % Plt Count (140-400) K/mcL MPV (9.4-12.4) fL Immature Gran % (0-4) % Seg Neutrophils % % Lymphocytes % % Monocytes % % Eosinophils % % Basophils % % Neutrophils # (1.6-8.9) K/mcL Lymphocytes # (0.6-4.6) K/mcL Monocytes # (0.0-1.3) K/mcL Eosinophils # (0.0-0.6) K/mcL Basophils # (0.0-0.2) K/mcL PT (9.4-12.1) Seconds INR APTT (26.0-36.0) Seconds Sodium 138 (136-145) mEq/L Potassium 4.5 (3.5-4.5) mEq/L Chloride 105 (98-109) mEq/L Carbon Dioxide 25 (19-29) mEq/L BUN 30 H (8-26) mg/dL Creatinine 0.99 (0.72-1.25) mg/dL Est GFR ( Amer) > 60 (> 60) Est GFR (Non-Af Amer) > 60 (> 60) BUN/Creatinine Ratio 30 H (6-26) Glucose 196 H (70-99) mg/dL Calculated Osmolality 298 (280-300) Calcium 9.4 (8.6-10.8) mg/dL Troponin I 0.01 (0-0.03) ng/mL B-Natriuretic Peptide (0-100) pg/mL Urine Color Yellow (Yellow) Urine Clarity Clear (Clear) Urine pH 7.0 (5.0-8.0) pH Units Ur Specific [place] 1.018 (1.010-1.025) Urine Protein Trace (Neg-Trace) mg/dL Urine Glucose (UA) Normal (Normal) mg/dL Urine Ketones Negative (Negative) mg/dL Urine Blood Negative (Negative) Urine Nitrite Negative (Negative) Urine Bilirubin Negative (Negative) Urine Urobilinogen Normal (Normal) mg/dL Ur Leukocyte Esterase Small H (Negative) Urine Microscopic RBC 5-15 H (0-3) per hpf Urine Microscopic WBC 15-30 H (0-3) per hpf Ur Squamous Epith Cells Moderate H (None-Few) per lpf Urine Bacteria None Seen (None-Few) per hpf Hyaline Casts None Seen (None-Few) per lpf Ur Culture Indicated? YES A (NO) Attestation Statement - Attestation Attestation: I, Brian Polk DO, examined this patient [id number] and my medical decision-making was reviewed with Dr. Teo Gutierres, Resident Physician. I agree with the documented findings, disposition and treatment plan as described except to the extent set forth below. Please see my progress notes for details. 77-year-old male sent in by PCP today for evaluation of chest discomfort and exertional angina. Patient initial EKG completed here as well as CT imaging the abdomen because of complaint of abdominal discomfort. Patient found to have potential masslike lesion with inflammation to lateral aspect of the bladder irritation to the colon. This was discussed with the patient as well as the hospitalist admission. Patient had negative EKG as well as troponins down here. Patient will be admitted for anginal equivalent. He has been symptom-free throughout the entire emergency room evaluation. His symptoms do return once he starts to exert himself removed. Otherwise his workup is completely benign. See detailed documentation of physical exam, medical intervention, medical decision-making and disposition present physician's note along with a consultation to the hospitalist. Patient family informed that this plan. Patient again is in no distress at the time of admission
[2017-08-17] MEDS ORDERED: *HR* Morphine 2 MG/ML SYRINGE IVP ONE (20:45)
[2017-08-17] MEDS ORDERED: Nitroglycerin 1 INCH/GM PACKET TP ONE (20:45)
[2017-08-17] MEDS ORDERED: Aspirin 325 MG TABLET PO ONE (20:46)
[2017-08-17] MEDS ORDERED: D5% in Water 1,000 ML IVC PRN (21:20)
[2017-08-17] MEDS ORDERED: *HR* Dextrose 50 % in Water (Syg) 50 ML SYRINGE IVP PRN (21:20)
[2017-08-17] MEDS ORDERED: Naloxone 0.4 MG/ML INJ IVP PRN (21:20)
[2017-08-17] MEDS ORDERED: *HR* Morphine 2 MG/ML SYRINGE IVP PRN (21:20)
[2017-08-17] MEDS ORDERED: Dextrose Gel 15 GM PO PRN ×2 (21:20)
[2017-08-17] MEDS ORDERED: Ondansetron 4 MG/2 ML VIAL IVP PRN (21:20)
[2017-08-17] MEDS ORDERED: Acetaminophen/Butalbital/CaffeineTABLET PO PRN (21:29)
[2017-08-17] MEDS ORDERED: Acetaminophen 325 MG TABLET PO PRN (21:29)
[2017-08-17 22:12] LABS: Hemoglobin A1C 7.3 %
--- NOTE | 2017-08-17 23:26 | Internal Med History&Physical ---
Date of Encounter: 08/17/17 Time of Encounter: 20:40 Assessment and Plan (1) Unstable angina Current visit: Yes Status: Acute 1. Will trend troponins, EKG's, and order ECHO. 2. Will treat with Nitrates and Morphine with goal of zero chest pain. 3. Consult Cardiology and keep npo after midnight for likely left heart catheterization in the morning. 4. Continue home meds as appropriate, including ASA, STATIN, BB. 5. Hold Coumadin after tonight for probable LHC. Follow PT/INR. (2) Hypertension Current visit: No Status: Chronic 1. Continue home meds as appropriate. 2. Monitor BP and adjust meds as needed. Qualifiers: Hypertension type: essential hypertension Qualified Code(s): I10 - Essential (primary) hypertension (3) Abnormal abdominal CT scan Current visit: Yes Status: Acute 1. Patient has no complaints of abdominal pain on my assessment and his exam was benign when I saw him. 2. He will need follow up -- likely outpatient once cardiac issue is stabilized. (4) DVT prophylaxis Current visit: Yes Status: Acute 1. Currently on Coumadin -- per , he took his dose today. INR is 1.7. 2. Hold further dosing until cardiology sees patient and decides about LHC. 3. Will need to resume and bridge his Coumadin after above. 4. May need Heparin SQ after tomorrow. Internal Medicine - H&P: HPI Chief complaint: chest pain Admitted From: Emergency Dept Plans for Post Hospital Care: Home History of present illness: Mr. Salmeron is a 77 year old male who presented to the ER with 2-3 days worth of chest pain. Pain and pressure were similar to that of his prior heart attack and his history of angina. He was reluctant to come to the hospital, but his made him come to the ER. In the ER, he was seen and evaluated and subsequently admitted to the hospitalist service. His troponin was negative, but his EKG does show some lateral wall ischemia. Furthermore, he is still having some active chest pain as I am talking to him and examining him. He did not receive any aspirin, nitrates, or morphine in the ER. I therefore ordered a STAT dose of aspirin, Nitropaste, and IV morphine as I was examining him and talking to him. He is on Coumadin, and his INR is 1.7. I will therefore hold off on starting heparin drip. I informed him and his that I will consult cardiology as I suspect he may need left heart catheterization tomorrow morning. He denies any shortness of breath or diaphoresis presently. He has had no fevers, cough, congestion, vomiting, or diarrhea. Past Med Surg Social Fam HX - Past Medical History Attestation: Yes The following information was validated with the patient. Source: patient, old records reviewed, obtained from family Medical history: atrial fibrillation, cancer (throat), coronary artery disease, CVA, diabetes, hypertension, peripheral artery disease, SVT, thyroid disease Psychiatric history: no psych history - Past Surgical History Surgical History: angioplasty/stent, appendectomy, coronary bypass (CABG), herniorrhaphy, LE vascular intervention, tracheostomy - Social History Smoking Status: Former smoker Smokeless Tobacco Status: No Alcohol use: none Drug use: none Current living situation: Home, With Family Activity Level: Independent ambulation Recent Out of Country Travel Within the Last 8 Weeks: No - Family History Mother Living Status: Hx Family Cancer: Yes Father Living Status: Hx Family Cancer: Yes (lung cancer) Sister Living Status: Hx Family Cancer: Yes (lung cancer) Internal Medicine - H&P: Meds Omeprazole [PriLOSEC] 20 mg PO QAM 06/11/15 [History] Sertraline [Zoloft] 100 mg PO QAM 06/11/15 [History] Tamsulosin [Flomax] 0.4 mg PO QAM 06/11/15 [History] BuPROPion XL (24 HR) [Wellbutrin Xl] 150 mg PO QAM 07/06/15 [History] Lisinopril 5 mg PO BID 08/10/15 [History] Insulin Glargine,Hum.rec.anlog [Lantus Solostar] 20 unit SQ QAM 12/09/15 [ History] Multivitamin [Multivitamins] 1 tab PO DAILY 12/09/15 [History] traZODone [TraZODone] 50 mg PO HS 01/06/16 [History] amLODIPine [Norvasc] 5 mg PO DAILY 05/16/16 [History] Acetaminophen/Butalbital/Caffe [Fioricet] 1 each PO DAILY PRN 05/14/17 [History] Ezetimibe [Zetia] 10 mg PO DAILY 05/14/17 [History] Ferrous Sulfate [Iron] 325 mg PO DAILY 05/14/17 [History] Gabapentin [Neurontin] 100 mg PO HS 05/14/17 [History] Metformin HCl [Metformin HCl ER] 500 mg PO QPM 05/14/17 [History] Promethazine [Phenergan] 25 mg PO Q6HR PRN 05/14/17 [History] Topiramate [Topamax] 50 mg PO HS 05/14/17 [History] Warfarin [Coumadin] 10 mg PO DAILY 05/15/17 [History] Acetaminophen [Tylenol] 650 mg PO Q6HR PRN tab 05/18/17 [Rx] Aspirin Enteric Coated [Aspirin EC] 81 mg PO DAILY 08/17/17 [History] Atorvastatin Calcium [Lipitor] 80 mg PO HS 08/17/17 [History] Ciprofloxacin HCl [Cipro] 500 mg PO BID 08/17/17 [History] Cyclobenzaprine HCl 5 mg PO HS PRN 08/17/17 [History] Levothyroxine Sodium [Synthroid] 300 mcg PO QAM 08/17/17 [History] Metoprolol [Lopressor] 50 mg PO BID 08/17/17 [History] 3 Allergy/AdvReac Type Severity Reaction Status Date / Time No Known Allergies Allergy Verified 06/24/17 21:47 - Constitutional Constitutional: no chills, no fever(s) - EENT Eyes: no blurry vision, no change in vision Ears: no ear pain, no tinnitus Nose, mouth and throat: no nasal congestion, no sinus pressure, no sore throat - Cardiovascular Cardiovascular ROS IM: chest pain, no diaphoresis, no dyspnea, no lightheadedness, no palpitations - Respiratory Respiratory: no cough, no hemoptysis, no chest congestion, no change in phlegm color - Gastrointestinal Gastrointestinal: no abdominal pain, no diarrhea, no hematemesis, no hematochezia, no nausea, no vomiting - Genitourinary Genitourinary ROS male: no dysuria, no flank pain, no hematuria - Musculoskeletal Musculoskeletal ROS IM: no arthralgias, no back pain - Integumentary Integumentary IM: no rash, no jaundice - Neurological Neurological ROS: no dizziness, no focal weakness, no frequent falls, no headache(s) - Psychiatric Psychiatric: no anxiety, no depression - Endocrine Endocrine IM: no polydipsia, no polyuria - Hematologic/Lymphatic Hematologic/Lymphatic: easy bruising, no lymphadenopathy - Allergic/Immunologic Allergic/Immunologic: no GI upset with certain foods - Constitutional Vitals: Temp Pulse Resp BP Pulse Ox 98.4 F 52 18 172/76 98 08/17/17 20:30 08/17/17 20:30 08/17/17 20:30 08/17/17 20:30 08/17/17 20:30 General appearance: Present: cooperative, mild distress (chest pain), A&O X 3, pleasant - Head Head exam: Present: atraumatic, normal inspection - Expanded Head Exam Head exam expanded: Absent: abrasion, contusion, general tenderness - Eye Eye exam: Present: EOMI, normal appearance, PERRL. Absent: scleral icterus Pupils: Present: normal accommodation - ENT ENT exam: Present: mucous membranes dry. Absent: normal exam (tracheostomy stoma without redness, secretions, or irritation) - Neck Neck exam general surgery: Present: full ROM, supple. Absent: lymphadenopathy, tenderness Additional comments: tight skin and scarring from prior radiation - Respiratory Respiratory exam: Present: CTAB. Absent: chest wall tenderness, rales, respiratory distress, rhonchi, wheezes - Cardiovascular Cardiovascular exam: Present: bradycardia (HR 50's), RRR, +S1, +S2. Absent: diastolic murmur, JVD, systolic murmur - GI/Abdominal GI/Abdominal exam: Present: normal bowel sounds, soft. Absent: hepatomegaly, mass, rebound, splenomegaly, tenderness - Extremities Exam Extremities exam: Present: full ROM, normal capillary refill, warm, radial pulses palpable and symmetrical. Absent: calf tenderness, pedal edema, tenderness - Back Exam Back exam: Present: normal inspection. Absent: CVA tenderness (L), CVA tenderness (R) - Neurological Exam Neurological exam: Present: alert, CN II-XII intact, oriented X3, no focal deficits - Psychiatric Psychiatric exam: Present: normal affect, normal mood - Skin Skin exam: Present: dry, warm. Absent: rash Internal Med - H&P Results - Labs CBC & Chem 7: 08/17/17 18:14 08/17/17 18:14 - EKG Data -: EKG Interpreted by Myself - EKG Data Prior EKG available for review: yes When compared to previous EKG: there are significant changes EKG comments: 08/17/17 23:30 Sinus rhythm with lateral ischemic changes -- new compared to last EKG - Diagnostic Studies Chest x-ray Status: image reviewed by me (negative) - VTE Reasons for not Prescribing Prophylaxis: Not indicated-Anticoagulated or INR therapeutic
[2017-08-18 01:06] LABS: Basophils % 0.5 %; Eosinophils # 0.9 K/mcL (0.0-0.6); Eosinophils % 13.9 %; Hematocrit 33.4 % (37.5-50.1); Hemoglobin 10.6 g/dL (12.9-16.9); Immature Granulocytes % 0.3 % (0-4); Lymphocytes # 1.5 K/mcL (0.6-4.6); Lymphocytes % 23.6 %; Mean Corpuscular HGB Conc 31.7 g/dL (31.6-35.5); Mean Corpuscular Hemoglobin 28.2 pg (28.0-33.3); Mean Corpuscular Volume 88.8 fL (83.0-100.0); Mean Platelet Volume 10.4 fL (9.4-12.4); Monocytes # 0.6 K/mcL (0.0-1.3); Monocytes % 8.5 %; Neutrophils # 3.4 K/mcL (1.6-8.9); Platelet Count 157 K/mcL (140-400); Red Blood Count 3.76 M/mcL (4.19-5.50); Red Cell Distribution Width 14.8 % (11.5-14.5); Segmented Neutrophils % 53.2 %
[2017-08-18 01:12] LABS: INR 1.8; Prothrombin Time 19.6 Seconds (9.4-12.1)
[2017-08-18 01:22] LABS: Alanine Aminotransferase 28 Units/L (0-55); Albumin 3.1 g/dL (3.5-5.0); Alkaline Phosphatase 74 Units/L (38-126); Aspartate Amino Transferase 24 Units/L (5-34); BUN/Creatinine Ratio 30 (6-26); Bilirubin,Total 0.4 mg/dL (0.2-1.2); Blood Urea Nitrogen 29 mg/dL (8-26); Carbon Dioxide 25 mEq/L (19-29); Chloride 106 mEq/L (98-109); Chol/HDL Ratio 6.7 (0-4.9); Cholesterol 187 mg/dL (< 200); Glucose 165 mg/dL (70-99); HDL Cholesterol 28 mg/dL (40-59); LDL Cholesterol,Calculated 112 mg/dL (0-99); Magnesium 1.7 mg/dL (1.6-2.6); Osmolality,Calculated 296 (280-300); Potassium 4.4 mEq/L (3.5-4.5); Sodium 138 mEq/L (136-145); Total Protein 6.1 g/dL (6.0-8.3); Triglycerides 235 mg/dL (< 150); eGFR For African Americans > 60 (> 60); eGFR For Non-African Americans > 60 (> 60)
[2017-08-18] MEDS: Nitroglycerin 1 INCH/GM PACKET TP SCH ×3 (03:50→11:52)
[2017-08-18] MEDS: Insulin LISPRO 300 UNITS/3 ML VIAL SQ SCH ×5 (05:53→23:59)
[2017-08-18] MEDS: Aspirin Enteric Coated 81 MG Tablet PO SCH (09:17)
[2017-08-18] MEDS: amLODIPine 5 MG TABLET PO SCH (09:17)
[2017-08-18] MEDS: ZETIA 10MG PO SCH (09:17)
[2017-08-18] MEDS: Multivit/Ca/Min/Fe/FA 1 TAB TABLET PO SCH (09:17)
--- NOTE | 2017-08-18 10:56 | Cardiology Consult Note ---
Date of Encounter: 08/18/17 Time of Encounter: 10:54 Assessment and Plan (1) Chest pain Current Visit: Yes Status: Acute Chest pain in the middle of the chest described as burning and tingling. Most likely 2/2 HTN. Patient is feeling better today. Troponin neg x 3. CXR negative for no acute cardiopulmonary process. TTE ([facility] and (06/28/2017: LVEF 55-60%. Normal LV, RV size and function. Negative for PFO. RVSP normal. No significant valve disease described. Pharmacological nuclear stress test 01/07/2016: Negative for ischemia or prior infarct. Resting ECG demonstrated sinus bradycardia, HR 50. Plan: -restart coumadin 10mg daily - continue Metroprolol 50mg BID - continue to monitor BP and adjust BP medications accordingly - continue ASA, TEREZA, Atorvastatin, Ezetimibe - requested records from [facility] Qualifiers: Chest pain type: other chest pain Qualified Code(s): R07.89 - Other chest pain; R07.8 - Other chest pain (2) Hypertension Current Visit: No Status: Chronic Patient's home medications include: metroprolol 25mg BID, Amlodipine 5mg dailiy , Lisinopril 5mg BID. Plan: - Metroprolol was increase to 50mg BID - continue to monitor BP and adjust medications as primary team sees fit. Qualifiers: Hypertension type: essential hypertension Qualified Code(s): I10 - Essential (primary) hypertension Discussion w patient/family: The assessment and plan as outlined above was discussed with the patient and/or family members who expressed understanding and agreement. All questions were answered. Thank you for involving us in the care of your patient. Please call with any questions. History of Present Illness Consult date: 08/18/17 Requesting physician: Octavio Bonds Consult reason: chest pain History of present illness: Mr. 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 Patient states that he has not had this chest burning and tingling in the middle of his chest before. It did ease up with the nitro paste. BP max 192/78 and currently 164/79. Patient has had Troponin neg x 3. Previous EKG showed ECG reportedly demonstrated T-wave inversion in the anterior and inferior leads with new EKG showing t-wave inversion in the lateral leads. TTE ([facility] and (06/28/2017: LVEF 55-60%. Normal LV , RV size and function. Negative for PFO. RVSP normal. No significant valve disease described. Echocardiogram 01/07/2016: EF is 60-65%. Mild concentric LVH. Moderately dilated left atrium. Limited study: Valves not assessed. Past Med Surg Social Fam HX - Past Medical History Medical history: atrial fibrillation, cancer (throat), coronary artery disease, CVA, diabetes, hypertension, peripheral artery disease, SVT, thyroid disease Psychiatric history: no psych history - Past Surgical History Surgical History: angioplasty/stent, appendectomy, coronary bypass (CABG), herniorrhaphy, LE vascular intervention, tracheostomy - Social History Smoking Status: Former smoker Smokeless Tobacco Status: No Alcohol use: none Drug use: none - Family History Mother Living Status: Hx Family Cancer: Yes Father Living Status: Hx Family Cancer: Yes (lung cancer) Sister Living Status: Hx Family Cancer: Yes (lung cancer) Medications and Allergies Omeprazole [PriLOSEC] 20 mg PO QAM 06/11/15 [History] Sertraline [Zoloft] 100 mg PO QAM 06/11/15 [History] Tamsulosin [Flomax] 0.4 mg PO QAM 06/11/15 [History] BuPROPion XL (24 HR) [Wellbutrin Xl] 150 mg PO QAM 07/06/15 [History] Lisinopril 5 mg PO BID 08/10/15 [History] Insulin Glargine,Hum.rec.anlog [Lantus Solostar] 20 unit SQ QAM 12/09/15 [ History] Multivitamin [Multivitamins] 1 tab PO DAILY 12/09/15 [History] traZODone [TraZODone] 50 mg PO HS 01/06/16 [History] amLODIPine [Norvasc] 5 mg PO DAILY 05/16/16 [History] Acetaminophen/Butalbital/Caffe [Fioricet] 1 each PO DAILY PRN 05/14/17 [History] Ezetimibe [Zetia] 10 mg PO DAILY 05/14/17 [History] Ferrous Sulfate [Iron] 325 mg PO DAILY 05/14/17 [History] Gabapentin [Neurontin] 100 mg PO HS 05/14/17 [History] Metformin HCl [Metformin HCl ER] 500 mg PO QPM 05/14/17 [History] Promethazine [Phenergan] 25 mg PO Q6HR PRN 05/14/17 [History] Topiramate [Topamax] 50 mg PO HS 05/14/17 [History] Warfarin [Coumadin] 10 mg PO DAILY 05/15/17 [History] Acetaminophen [Tylenol] 650 mg PO Q6HR PRN tab 05/18/17 [Rx] Aspirin Enteric Coated [Aspirin EC] 81 mg PO DAILY 08/17/17 [History] Atorvastatin Calcium [Lipitor] 80 mg PO HS 08/17/17 [History] Ciprofloxacin HCl [Cipro] 500 mg PO BID 08/17/17 [History] Cyclobenzaprine HCl 5 mg PO HS PRN 08/17/17 [History] Levothyroxine Sodium [Synthroid] 300 mcg PO QAM 08/17/17 [History] Metoprolol [Lopressor] 50 mg PO BID 08/17/17 [History] 3 Allergy/AdvReac Type Severity Reaction Status Date / Time No Known Allergies Allergy Verified 06/24/17 21:47 All Systems Review: A 10-system review of systems was performed and is negative for pertinent findings except as documented above in the HPI. Physical Examination Vital Signs, Last 4 Hours Temp Pulse Resp BP Pulse Ox 08/18/17 10:41 98.2 F 51 17 96 08/18/17 07:06 98.0 F 51 16 164/79 97 General: Conversant, No Apparent Distress HEENT: Atraumatic, Mucus Membranes Moist, Other (stoma present, ) Neck: No JVD, Normal carotid pulses Cardiac: Reg Rate and Rhythm, Normal S1 and S2, No Murmur Lungs: Normal Breath Sounds, No Wheeze, Rales, Rhonchi Neuro: Alert and responsive, No focal deficits noted Abdomen: Soft, Non-Tender Skin: No rashes noted on visualized skin Musculoskeletal: No Chest Wall Tenderness Extremities: No Clubbing, No Cyanosis, No Edema, Normal Pulses Results 08/18/17 00:35 08/18/17 00:35 Lab Results 08/18/17 08/18/17 08/18/17 00:35 00:35 00:35 WBC 6.5 Hgb 10.6 L Hct 33.4 L Plt Count 157 INR 1.8 Sodium Potassium Chloride Carbon Dioxide BUN Creatinine Glucose Calcium Magnesium Total Bilirubin AST ALT Alkaline Phosphatase Troponin I 0.01 08/18/17 08/18/17 00:35 06:02 WBC Hgb Hct Plt Count INR Sodium 138 Potassium 4.4 Chloride 106 Carbon Dioxide 25 BUN 29 H Creatinine 0.97 Glucose 165 H Calcium 9.0 Magnesium 1.7 Total Bilirubin 0.4 AST 24 ALT 28 Alkaline Phosphatase 74 Troponin I 0.01 - Imaging and Cardiology Chest Xray: report reviewed, image reviewed Consult Discharge Plan - Plan Referrals: Rd Mendoza MD [Primary Care Provider] - 08/24/17 9:00 am
--- NOTE | 2017-08-18 12:11 | Internal Med Progress Note ---
Date of Encounter: 08/18/17 Time of Encounter: 12:08 - Assessment and plan (1) Chest pain Current Visit: Yes Status: Acute Assessment and plan: So far negative troponin No acute ST T changes on EKG, showing sinus xi with VR-50 CP resolved now He does have on / off intermittent CP from last 2-3 weeks His BP is fairly controlled .. so will adjust his BP meds Cont Norvasc 5mg daily, changed Lisinopril to 20mg daily May need to cut back on Metoprolol due to bradycardia Also consider to starting him on Imdur at low dose Cont ASA, Nitro PRN Will review records from [facility].. If he have not done a stress test recently, he may get benefit with stress test will talk to Card Qualifiers: Chest pain type: other chest pain Qualified Code(s): R07.89 - Other chest pain; R07.8 - Other chest pain (2) CAD (coronary artery disease) Current Visit: No Status: Chronic Assessment and plan: resumed all home meds Qualifiers: Coronary Disease-Associated Artery/Lesion type: bypass graft [place] vs. 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 Now his pain resolved with nitro. Denied any SOB. No fever / chills. He did mention a month ago he was admitted at [facility] for [place], had some cardiac work up done, but he does not remember exactly what was done. - Constitutional Vitals: Temp Pulse Resp BP Pulse Ox 98.2 F 51 17 164/79 96 08/18/17 10:41 08/18/17 10:41 08/18/17 10:41 08/18/17 07:06 08/18/17 10:41 General appearance: Present: cooperative, A&O X 3, no acute distress - Head Head exam: Present: atraumatic, normal inspection - Neck Neck exam general surgery: Present: supple - Respiratory Respiratory exam: Present: decreased breath sounds. Absent: chest wall tenderness, rales, respiratory distress, rhonchi, wheezes - Cardiovascular Cardiovascular exam: Present: RRR, +S1, +S2. Absent: systolic murmur - GI/Abdominal GI/Abdominal exam: Present: soft. Absent: distended, rebound, rigid, tenderness - Extremities Exam Extremities exam: Absent: calf tenderness, pedal edema, tenderness - Back Exam Back exam: Absent: CVA tenderness (L), CVA tenderness (R) - Neurological Exam Neurological exam: Present: alert, oriented X3 - Psychiatric Psychiatric exam: Present: normal affect, normal mood Internal Medicine: Result - Labs CBC & Chem 7: 08/18/17 00:35 08/18/17 00:35 Labs: Short CBC 08/18/17 Range/Units 00:35 WBC 6.5 (4.3-11.1) K/mcL Hgb 10.6 L (12.9-16.9) g/dL Hct 33.4 L (37.5-50.1) % Plt Count 157 (140-400) K/mcL Neutrophils # 3.4 (1.6-8.9) K/mcL BMP 08/18/17 00:35 Sodium 138 Potassium 4.4 Chloride 106 Carbon Dioxide 25 BUN 29 H Creatinine 0.97 Glucose 165 H Calcium 9.0 Cardiac Enzymes 11/03/17 11/03/17 Range/Units 00:35 06:02 Troponin I 0.01 0.01 (0-0.03) ng/mL Liver Function 08/18/17 Range/Units 00:35 Total Bilirubin 0.4 (0.2-1.2) mg/dL AST 24 (5-34) Units/L ALT 28 (0-55) Units/L Alkaline Phosphatase 74 (38-126) Units/L Albumin 3.1 L (3.5-5.0) g/dL - ABG Interpretation ABG results: PT/INR, D-dimer PT 19.6 Seconds (9.4-12.1) H 08/18/17 00:35 - VTE Reasons for not Prescribing Prophylaxis: Not indicated-Anticoagulated or INR therapeutic Consult Discharge Plan - Plan Referrals: Rd Mendoza MD [Primary Care Provider] - 08/24/17 9:00 am
--- NOTE | 2017-08-18 17:32 | Electrocardiograph Report ---
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
[2017-08-18] MEDS ORDERED: *HR* Warfarin 7.5 MG TABLET PO ONE (18:00)
[2017-08-18] MEDS ORDERED: Warfarin perPT PO PRN (18:00)
[2017-08-18] MEDS ORDERED: Topiramate 25 MG TABLET PO SCH (21:00)
[2017-08-18] MEDS ORDERED: Gabapentin 100 MG CAPSULE PO SCH (21:00)
[2017-08-19] MEDS: Insulin LISPRO 300 UNITS/3 ML VIAL SQ SCH ×2 (05:48→11:42)
[2017-08-19] MEDS: Nitroglycerin 1 INCH/GM PACKET TP SCH (05:48)
[2017-08-19] MEDS: ZETIA 10MG PO SCH (08:59)
[2017-08-19] MEDS: Aspirin Enteric Coated 81 MG Tablet PO SCH (09:03)
[2017-08-19] MEDS: Multivit/Ca/Min/Fe/FA 1 TAB TABLET PO SCH (09:03)
[2017-08-19] MEDS: amLODIPine 5 MG TABLET PO SCH (09:04)
[2017-08-19 12:04] VITALS: BP 156/72
--- NOTE | 2017-08-19 12:09 | Discharge Summary ---
Date of Encounter: 08/19/17 Time of Encounter: 12:04 - Discharge Diagnosis (1) Chest pain Priority: Primary Status: Acute Qualifiers: Chest pain type: other chest pain Qualified Code(s): R07.89 - Other chest pain; R07.8 - Other chest pain (2) CAD (coronary artery disease) Priority: Secondary Status: Chronic Qualifiers: Coronary Disease-Associated Artery/Lesion type: bypass graft [place] vs. transplanted heart: [place] heart Associated angina: without angina Qualified Code(s): I25.810 - Atherosclerosis of coronary artery bypass graft(s) without angina pectoris (3) Diabetes Priority: Secondary Status: Chronic Qualifiers: Diabetes mellitus type: type 2 Diabetes mellitus complication status: without complication Diabetes mellitus termite exterminator insulin use: with termite exterminator use Qualified Code(s): E11.9 - Type 2 diabetes mellitus without complications ; Z79.4 - USP (current) use of insulin (4) Atrial fibrillation Priority: Secondary Status: Chronic Qualifiers: Atrial fibrillation type: paroxysmal Qualified Code(s): I48.0 - Paroxysmal atrial fibrillation (5) Hypertension Priority: Secondary Status: Chronic Qualifiers: Hypertension type: essential hypertension Qualified Code(s): I10 - Essential (primary) hypertension (6) Bradycardia Priority: Secondary Status: Acute - Discharge Medications Prescriptions: Isosorbide MONOnitrate (24 HR) [Imdur] 30 mg PO DAILY #30 tab.er.24h Home Medications: Omeprazole [PriLOSEC] 20 mg PO QAM 06/11/15 [History] Sertraline [Zoloft] 100 mg PO QAM 06/11/15 [History] Tamsulosin [Flomax] 0.4 mg PO QAM 06/11/15 [History] BuPROPion XL (24 HR) [Wellbutrin Xl] 150 mg PO QAM 07/06/15 [History] Lisinopril 5 mg PO BID 08/10/15 [History] Insulin Glargine,Hum.rec.anlog [Lantus Solostar] 20 unit SQ QAM 12/09/15 [ History] Multivitamin [Multivitamins] 1 tab PO DAILY 12/09/15 [History] traZODone [TraZODone] 50 mg PO HS 01/06/16 [History] amLODIPine [Norvasc] 5 mg PO DAILY 05/16/16 [History] Acetaminophen/Butalbital/Caffe [Fioricet] 1 each PO DAILY PRN 05/14/17 [History] Ezetimibe [Zetia] 10 mg PO DAILY 05/14/17 [History] Ferrous Sulfate [Iron] 325 mg PO DAILY 05/14/17 [History] Gabapentin [Neurontin] 100 mg PO HS 05/14/17 [History] Metformin HCl [Metformin HCl ER] 500 mg PO QPM 05/14/17 [History] Promethazine [Phenergan] 25 mg PO Q6HR PRN 05/14/17 [History] Topiramate [Topamax] 50 mg PO HS 05/14/17 [History] Warfarin [Coumadin] 10 mg PO DAILY 05/15/17 [History] Acetaminophen [Tylenol] 650 mg PO Q6HR PRN tab 05/18/17 [Rx] Aspirin Enteric Coated [Aspirin EC] 81 mg PO DAILY 08/17/17 [History] Atorvastatin Calcium [Lipitor] 80 mg PO HS 08/17/17 [History] Cyclobenzaprine HCl 5 mg PO HS PRN 08/17/17 [History] Levothyroxine Sodium [Synthroid] 300 mcg PO QAM 08/17/17 [History] Isosorbide MONOnitrate (24 HR) [Imdur] 30 mg PO DAILY #30 tab.er.24h 08/19/17 [ Rx] Allergies/Adverse Reactions: 3 Allergy/AdvReac Type Severity Reaction Status Date / Time No Known Allergies Allergy Verified 06/24/17 21:47 Procedures/tests Complete & Pending: Procedures Performed prior 72 hours Category Date Time Status EV echocardiogram Routine Y 08/18/17 21:27 Completed Date of admission: 08/17/17 21:20 Primary care physician: Rd Mendoza MD - Patient Status Disposition: Home, Self-Care Condition: Good Overall status at discharge: patient is back to baseline - Discharge Instructions Follow Up With: Rd Mendoza MD [Primary Care Provider] - 08/24/17 9:00 am Shane Bowles DO [Partnered Physician] - - Diet and Activity Activity: increase activity as tolerated Hospital course: Mr. 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 He was admitted in the hospital and placed him on bus monitor. He troponin x 3 were negative. EKG showed SR, inferior and anterior T wave inversions noticed. 2D Echo showed normal LVEF 55%, and mild LV diastolic dysfunction. At this point Cardiology recommend aggressive medical management with ASA, Statin, ACEI and added Imdur at low dose. He does have sinus bradycardia with HR in 50's, even after held his Metoprolol for 2 days. So recommend to stop taking Metoprolol and follow up with PCP and Card as an out pt. - Time Spent with Patient Total time spent providing and/or coordinating discharge services: - Constitutional Vitals: Temp Pulse Resp BP Pulse Ox 97.1 F L 47 15 142/79 98 08/19/17 07:23 08/19/17 07:23 08/19/17 07:23 08/19/17 07:23 08/19/17 07:23 General appearance: Present: cooperative, A&O X 3, no acute distress - Head Head exam: Present: atraumatic, normal inspection - Neck Neck exam general surgery: Present: supple - Respiratory Respiratory exam: Present: decreased breath sounds. Absent: rales, respiratory distress, rhonchi, wheezes - Cardiovascular Cardiovascular exam: Present: bradycardia, +S1, +S2. Absent: systolic murmur - GI/Abdominal GI/Abdominal exam: Present: normal bowel sounds, soft. Absent: rebound, rigid, tenderness - Extremities Exam Extremities exam: Absent: calf tenderness, pedal edema, tenderness - Back Exam Back exam: Absent: CVA tenderness (L), CVA tenderness (R) - Neurological Exam Neurological exam: Present: alert, oriented X3 - Psychiatric Psychiatric exam: Present: normal affect, normal mood - VTE Reasons for not Prescribing Prophylaxis: Not indicated-Anticoagulated or INR therapeutic
[2017-08-19] MEDS ORDERED: Isosorbide MONOnitrate (24 HR) 30 MG TAB.ER.24H PO SCH (12:25)
== END 2017-08-19 13:40 | disposition home or self-care (01) | DRG 303 ==
LOC: EMEROO 17:20 → 3BNU 17:20 → SUATTDRO 21:20 → 3BNU 08-18 00:46
PROVIDERS: ADMIT Internal Medicine; ATTEND Family Medicine

== ENCOUNTER 2017-08-20 11:15 | Observation (INO) ==
[2017-08-20 11:48] LABS: Basophils % 0.3 %; Eosinophils # 0.4 K/mcL (0.0-0.6); Eosinophils % 6.3 %; Hematocrit 40.7 % (37.5-50.1); Immature Granulocytes % 0.1 % (0-4); Lymphocytes % 14.4 %; Mean Corpuscular HGB Conc 31.7 g/dL (31.6-35.5); Mean Corpuscular Hemoglobin 28.2 pg (28.0-33.3); Mean Corpuscular Volume 88.9 fL (83.0-100.0); Mean Platelet Volume 10.8 fL (9.4-12.4); Monocytes # 0.5 K/mcL (0.0-1.3); Monocytes % 7.5 %; Neutrophils # 4.9 K/mcL (1.6-8.9); Platelet Count 193 K/mcL (140-400); Red Blood Count 4.58 M/mcL (4.19-5.50); Red Cell Distribution Width 14.8 % (11.5-14.5); Segmented Neutrophils % 71.4 %
[2017-08-20 11:50] LABS: Hemoglobin 12.9 g/dL (12.9-16.9)
[2017-08-20 11:55] LABS: INR 1.4; Prothrombin Time 14.8 Seconds (9.4-12.1)
[2017-08-20 11:57] LABS: Activated Partial Thrombo Time 25.9 Seconds (26.0-36.0)
[2017-08-20] MEDS ORDERED: Nitroglycerin 0.4 MG TAB.SUBL SL PRN (12:00)
[2017-08-20] MEDS: *HR* Metoprolol 5 MG/5 ML VIAL IVP SCH ×2 (12:02→12:36)
[2017-08-20 12:06] LABS: BUN/Creatinine Ratio 29 (6-26); Blood Urea Nitrogen 38 mg/dL (8-26); Calcium 9.3 mg/dL (8.6-10.8); Carbon Dioxide 21 mEq/L (19-29); Chloride 105 mEq/L (98-109); Glucose 172 mg/dL (70-99); Osmolality,Calculated 301 (280-300); Sodium 139 mEq/L (136-145); eGFR For African Americans > 60 (> 60); eGFR For Non-African Americans 54 (> 60)
[2017-08-20] MEDS ORDERED: 0.9 % Sodium Chloride 1,000 ML ONE (12:11)
--- NOTE | 2017-08-20 12:23 | Emergency Department Note ---
Disposition Clinical Impression: Chest pain Qualifiers: Chest pain type: unspecified Qualified Code(s): R07.9 - Chest pain, unspecified Atrial flutter Qualifiers: Atrial flutter type: unspecified Qualified Code(s): I48.92 - Unspecified atrial flutter Disposition: Admitted As Inpatient Condition: Fair Referrals: Rd Mendoza MD [Primary Care Provider] - Forms: ED Satisfaction Letter Time of Disposition: 13:21 General Adult HPI - General Chief complaint: ED Chest Pain Stated complaint: Chest pain Time Seen by Provider: 08/20/17 11:27 Source: patient Mode of arrival: ambulatory Limitations: no limitations Nursing Notes Reviewed: Yes Vital Signs Reviewed: Yes - History of Present Illness HPI Narrative: Patient is a 77-year-old male with a past medical history of 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 The patient states she was starting his new medication Imdur this morning and about 30 minutes after taking the medication that patient started having bilateral chest pain that he describes as pressure-like with intermittent radiation to the left arm associated diaphoresis. She denies any back pain, no nausea or vomiting. The patient does have associated shortness of breath as well. He was recently discharged from the hospital yesterday for chest pain workup in which she was prescribed this new medication. Pain Scale: 8 - Related Data Home Medications Medication Instructions Recorded Confirmed Omeprazole [PriLOSEC] 20 mg PO QAM 06/11/15 08/20/17 Sertraline [Zoloft] 100 mg PO QAM 06/11/15 08/20/17 Tamsulosin [Flomax] 0.4 mg PO QAM 06/11/15 08/20/17 BuPROPion XL (24 HR) [Wellbutrin 150 mg PO QAM 07/06/15 08/20/17 Xl] Lisinopril 5 mg PO BID 08/10/15 08/20/17 Insulin Glargine,Hum.rec.anlog 20 unit SQ QAM 12/09/15 08/20/17 [Lantus Solostar] Multivitamin [Multivitamins] 1 tab PO DAILY 12/09/15 08/20/17 traZODone [TraZODone] 50 mg PO HS 01/06/16 08/20/17 amLODIPine [Norvasc] 5 mg PO DAILY 05/16/16 08/20/17 Acetaminophen/Butalbital/Caffe 1 each PO DAILY PRN 05/14/17 08/20/17 [Fioricet] Ezetimibe [Zetia] 10 mg PO DAILY 05/14/17 08/20/17 Ferrous Sulfate [Iron] 325 mg PO DAILY 05/14/17 08/20/17 Gabapentin [Neurontin] 100 mg PO HS 05/14/17 08/20/17 Metformin HCl [Metformin HCl ER] 500 mg PO QPM 05/14/17 08/20/17 Promethazine [Phenergan] 25 mg PO Q6HR PRN 05/14/17 08/20/17 Topiramate [Topamax] 50 mg PO HS 05/14/17 08/20/17 Warfarin [Coumadin] 10 mg PO DAILY 05/15/17 08/20/17 Aspirin Enteric Coated [Aspirin EC] 81 mg PO DAILY 08/17/17 08/20/17 Atorvastatin Calcium [Lipitor] 80 mg PO HS 08/17/17 08/20/17 Cyclobenzaprine HCl 5 mg PO HS PRN 08/17/17 08/20/17 Levothyroxine Sodium [Synthroid] 300 mcg PO QAM 08/17/17 08/20/17 Previous Rx's Medication Instructions Recorded Acetaminophen [Tylenol] 650 mg PO Q6HR PRN tab 05/18/17 Isosorbide MONOnitrate (24 HR) 30 mg PO DAILY #30 tab.er.24h 08/19/17 [Imdur] Allergies Allergy/AdvReac Type Severity Reaction Status Date / Time No Known Allergies Allergy Verified 06/24/17 21:47 Review of Systems: Constitutional: No fever Vision: No blurred vision ENT: No rhinorrhea Respiratory: No cough, positive shortness of breath CV: Positive chest pain, no palpitation Allergic: No allergies : No blood in urine GI: No blood in stool, no diarrhea no abdominal pain no nausea or vomiting. Hematologic: No bruising Dermatologic: No skin rash Musculoskeletal: No pain in the extremities Neuro: No numbness of the extremities All systems ED: reviewed and negative except as stated. Past Medical History - Past Medical History Medical history: Reports: atrial fibrillation, cancer, coronary artery disease, CVA, diabetes, hypertension, peripheral artery disease, SVT, thyroid disease Surgical history: Reports: angioplasty/stent, appendectomy, coronary bypass ( CABG), herniorrhaphy, LE vascular intervention, tracheostomy Psychiatric history: Reports: no psych history - Social History Smoking Status: Former smoker Smokeless Tobacco Status: No Alcohol use: Reports: none Drug use: Reports: none Physical Exam CONSTITUTIONAL: Well-appearing; well-nourished; A&O X 3, in no apparent distress HEAD: Normocephalic; atraumatic EYES: PERRL, no scleral icterus NOSE: The nose is normal in appearance without rhinorrhea NECK: No JVD or distended neck veins RESP: Normal chest excursion with respiration; breath sounds clear and equal bilaterally; no wheezes, rhonchi, or rales CARD: Patient is tachycardic, without murmurs, rub or gallop ABD: Non-distended; non-tender, soft, without rigidity, rebound or guarding,no pulsatile mass CHEST: No pain with palpation SKIN: Normal for age and race; warm and dry without diaphoresis ; no apparent lesions EXTREMITIES: Pulses are 2 plus and equal times 4 extremities, no peripheral edema or calf muscle pain Course Course Narrative: Patient is a 77-year-old male with significant arterial vascular disease history , CABG and 4 stents since then, CAD, recent discharge from the hospital for chest pain which is prescribed a new medication. The plan is to perform a cardiac workup of the patient. The patient has sinus tachycardia. Lopressor was ordered for the patient, however the patient's blood pressure was low in the 90s over 50s. So Lopressor was held and the patient was started on IV fluids. We will recheck the patient's blood pressure after receiving fluids has improved he will given Lopressor to lower his heart rate. Plan is to call cardiology once all his lab work is come back to discuss further disposition for this patient. - Reevaluation(s) Reevaluation #1: I discussed this patient's case with the house mover helper Dr. Bowles and he agrees to consult with the patient after admission to hospitalist. He states he will determine a plan to help with this patient's chest pain under control. I also discussed patient's case with the hospitalist Dr. Malone and he agrees to accept the patient. Vital Signs Temperature 98.2 F 08/20/17 11:29 Pulse Rate 121 08/20/17 11:29 Respiratory Rate 17 08/20/17 11:29 Blood Pressure 128/73 08/20/17 11:29 O2 Sat by Pulse Oximetry 95 08/20/17 11:29 Temperature 98.2 F 08/20/17 11:29 Pulse Rate 94 08/20/17 13:12 Respiratory Rate 26 08/20/17 13:12 Blood Pressure 109/70 08/20/17 13:12 O2 Sat by Pulse Oximetry 97 08/20/17 13:12 Oxygen Delivery Oxygen Delivery Room Air Medical Decision Making - Medical Records Medical records reviewed: Yes I reviewed the patient's medical records. - Lab Data Lab results reviewed: Yes I reviewed the patient's lab results. Lab results narrative: Chest X-Ray 08/20/17 11:27 IMPRESSION: No active cardiopulmonary disease D/ / Ashwin Ferguson MD / Ashwin Ferguson MD Interpreting Provider: Ashwin Ferguson MD Result diagrams: 08/20/17 11:30 08/20/17 11:30 Lab Results 08/20/17 08/20/17 08/20/17 Range/Units 11:30 11:30 11:30 WBC 6.8 (4.3-11.1) K/mcL RBC 4.58 (4.19-5.50) M/mcL Hgb 12.9 D (12.9-16.9) g/dL Hct 40.7 (37.5-50.1) % MCV 88.9 (83.0-100.0) fL MCH 28.2 (28.0-33.3) pg MCHC 31.7 (31.6-35.5) g/dL RDW 14.8 H (11.5-14.5) % Plt Count 193 (140-400) K/mcL MPV 10.8 (9.4-12.4) fL Immature Gran % 0.1 (0-4) % Seg Neutrophils % 71.4 % Lymphocytes % 14.4 % Monocytes % 7.5 % Eosinophils % 6.3 % Basophils % 0.3 % Neutrophils # 4.9 (1.6-8.9) K/mcL Lymphocytes # 1.0 (0.6-4.6) K/mcL Monocytes # 0.5 (0.0-1.3) K/mcL Eosinophils # 0.4 (0.0-0.6) K/mcL Basophils # 0.0 (0.0-0.2) K/mcL PT 14.8 H (9.4-12.1) Seconds INR 1.4 APTT 25.9 L (26.0-36.0) Seconds Sodium 139 (136-145) mEq/L Potassium 4.0 (3.5-4.5) mEq/L Chloride 105 (98-109) mEq/L Carbon Dioxide 21 (19-29) mEq/L BUN 38 H (8-26) mg/dL Creatinine 1.29 H (0.72-1.25) mg/dL Est GFR ( Amer) > 60 (> 60) Est GFR (Non-Af Amer) 54 L (> 60) BUN/Creatinine Ratio 29 H (6-26) Glucose 172 H (70-99) mg/dL Calculated Osmolality 301 H (280-300) Calcium 9.3 (8.6-10.8) mg/dL Troponin I (0-0.03) ng/mL 08/20/17 Range/Units 11:30 WBC (4.3-11.1) K/mcL RBC (4.19-5.50) M/mcL Hgb (12.9-16.9) g/dL Hct (37.5-50.1) % MCV (83.0-100.0) fL MCH (28.0-33.3) pg MCHC (31.6-35.5) g/dL RDW (11.5-14.5) % Plt Count (140-400) K/mcL MPV (9.4-12.4) fL Immature Gran % (0-4) % Seg Neutrophils % % Lymphocytes % % Monocytes % % Eosinophils % % Basophils % % Neutrophils # (1.6-8.9) K/mcL Lymphocytes # (0.6-4.6) K/mcL Monocytes # (0.0-1.3) K/mcL Eosinophils # (0.0-0.6) K/mcL Basophils # (0.0-0.2) K/mcL PT (9.4-12.1) Seconds INR APTT (26.0-36.0) Seconds Sodium (136-145) mEq/L Potassium (3.5-4.5) mEq/L Chloride (98-109) mEq/L Carbon Dioxide (19-29) mEq/L BUN (8-26) mg/dL Creatinine (0.72-1.25) mg/dL Est GFR ( Amer) (> 60) Est GFR (Non-Af Amer) (> 60) BUN/Creatinine Ratio (6-26) Glucose (70-99) mg/dL Calculated Osmolality (280-300) Calcium (8.6-10.8) mg/dL Troponin I 0.02 (0-0.03) ng/mL - Radiology Data Radiology results reviewed: Yes I reviewed the patient's radiology results. Chest X-Ray 08/20/17 11:27 IMPRESSION: No active cardiopulmonary disease D/ / Ashwin Ferguson MD / Ashwin Ferguson MD Interpreting Provider: Ashwin Ferguson MD - EKG Data EKG #1 EKG attestation: Yes I reviewed and interpreted this EKG. EKG results narrative: Patient's EKG shows sinus tachycardia at a rate of 118 bpm. It is normal axis. MN is 159, QRS is 106, QT is 310 and QTc is 380 these are within normal limits. No signs of ST elevation or depression. No signs of STEMI. Patient does have some Q waves in lead 3 however these are old when compared to his EKG on 08/17/2017. EKG #2 EKG attestation: Yes I reviewed and interpreted this EKG. EKG results narrative: Patient EKG repeated status post Lopressor at 12:37 shows a atrial flutter at a rate of 79 bpm. The axis is normal. QRS is 109, QT is 388 and QTc is 4:15 user within normal limits. No signs of ST elevation or depression no new Q waves when compared to old however the patient does have some new T-wave changes in the lateral leads precordial leads. Critical Care Time Critical Care Time: Yes Total Critical Care Time: 35 Attestation: Critical care time 35 minutes managing patient's tachycardia and chest pain. Attestation Statement - Attestation Attestation: Patient was seen with resident physician. I reviewed the history, physical, assessment and plan, and agree with the findings. I also personally evaluated this patient and had [id number] time with this patient. 77-year-old male presents to the emergency department with chest pain. Patient has a history of same was discharged from the hospital yesterday. Apparently he was given a prescription for Imdur took it this morning then developed chest pain in both the left and right side of his chest somewhat of a pressure sensation. No diaphoresis. No nausea. On exam vitals initially showed tachycardia with a stable blood pressure. ENT is unremarkable. Heart and lungs are both normal except that he is tachycardic. Abdomen is soft and nontender. Extremities unremarkable. Neurologically intact. ED course initial EKG shows a tachycardia it is unclear if this is more of an A. fib or an atrial tachycardia. We wanted to do some rate control but his blood pressure dropped a little lower so we started IV fluids. We also unable to use nitroglycerin for his chest discomfort secondary to his blood pressure being low. Once we have data back we will consult cardiology to try and determine what the best course of action is going to be moving forward. His EKG does not show acute ischemic changes. It is unclear if his atrial fib or flutter is new or old. We did speak with cardiology and the he said that there is a history of atrial fibrillation. They recommended admitting to the hospitalist service for a rule out with pain control and rate control. We did speak with the hospitalist service to arrange for admission. Patient had minimal hypotension while here. He responded well to fluids, and then we needed to control his rate with some Lopressor. Patient will be admitted for evaluation of chest pain. Critical care time is 35 minutes. Agree with the resident physician assessment and plan.
[2017-08-20] MEDS ORDERED: Acetaminophen 325 MG TABLET PO PRN (15:12)
[2017-08-20] MEDS ORDERED: Acetaminophen/Butalbital/CaffeineTABLET PO PRN (15:12)
[2017-08-20] MEDS ORDERED: Dextrose Gel 15 GM PO PRN ×2 (15:15)
[2017-08-20] MEDS ORDERED: *HR* Dextrose 50 % in Water (Syg) 50 ML SYRINGE IVP PRN (15:15)
[2017-08-20] MEDS ORDERED: D5% in Water 1,000 ML IVC PRN (15:15)
[2017-08-20] MEDS ORDERED: Naloxone 0.4 MG/ML INJ IVP PRN (15:17)
--- NOTE | 2017-08-20 15:29 | Internal Med History&Physical ---
Date of Encounter: 08/20/17 Time of Encounter: 15:24 Assessment and Plan (1) Chest pain Current visit: Yes Status: Acute hold imdur due to reported symptoms ??? metoprolol was held during last visit for bradycardia ? trial of nitropast 1/2 inch overnight Consult cards to assist with medication choice. check EKG in a.m, trend trop Qualifiers: Chest pain type: unspecified Qualified Code(s): R07.9 - Chest pain, unspecified (2) JAKE (acute kidney injury) Current visit: Yes Status: Acute gentle IVF ,trend Cr (3) CAD (coronary artery disease) Current visit: No Status: Chronic medical management. significant hx Qualifiers: Coronary Disease-Associated Artery/Lesion type: bypass graft [place] vs. transplanted heart: [place] heart Associated angina: without angina Qualified Code(s): I25.810 - Atherosclerosis of coronary artery bypass graft(s) without angina pectoris (4) Diabetes Current visit: No Status: Chronic continue insulin,add ISS, hold metformin Qualifiers: Diabetes mellitus type: type 2 Diabetes mellitus complication status: without complication Diabetes mellitus human resources admin insulin use: with mcfp use Qualified Code(s): E11.9 - Type 2 diabetes mellitus without complications ; Z79.4 - correction (current) use of insulin; Z79.4 - correction (current) use of insulin; Z79.4 - project officer (current) use of insulin; Z79.4 - project officer ( current) use of insulin (5) Atrial fibrillation Current visit: No Status: Chronic continue coumadin. INR/PT trend Qualifiers: Atrial fibrillation type: paroxysmal Qualified Code(s): I48.0 - Paroxysmal atrial fibrillation Internal Medicine - H&P: HPI Chief complaint: Chest pain History of present illness: Mr. Salmeron is a 77 year old male who presents with chest pain. He has a hx of CAD s/p CABG, AAA , vasculopath who had been recently admitted and discharged yesterday. He is known to Dr Bowles was medically treated with what appeared to be anginal symptoms. He was medically optimized and sent home on imdur and with discontinuation of metoprolol for reported bradycardia. However, since taking this new medication today, he started to experience sternal chest symptoms, pressure sensation, 6/10, radiate to left arm , associated with numbness. EKG personally reviewed with rate controlled AFib, rate 79 Past Med Surg Social Fam HX - Past Medical History Medical history: atrial fibrillation, cancer, coronary artery disease, CVA, diabetes, hypertension, peripheral artery disease, SVT, thyroid disease Psychiatric history: no psych history - Past Surgical History Surgical History: angioplasty/stent, appendectomy, coronary bypass (CABG), herniorrhaphy, LE vascular intervention, tracheostomy - Social History Smoking Status: Former smoker Smokeless Tobacco Status: No Alcohol use: none Drug use: none - Family History Mother Living Status: Hx Family Cancer: Yes Father Living Status: Hx Family Cancer: Yes (lung cancer) Sister Living Status: Hx Family Cancer: Yes (lung cancer) Internal Medicine - H&P: Meds Omeprazole [PriLOSEC] 20 mg PO QAM 06/11/15 [History] Sertraline [Zoloft] 100 mg PO QAM 06/11/15 [History] Tamsulosin [Flomax] 0.4 mg PO QAM 06/11/15 [History] BuPROPion XL (24 HR) [Wellbutrin Xl] 150 mg PO QAM 07/06/15 [History] Lisinopril 5 mg PO BID 08/10/15 [History] Insulin Glargine,Hum.rec.anlog [Lantus Solostar] 20 unit SQ QAM 12/09/15 [ History] Multivitamin [Multivitamins] 1 tab PO DAILY 12/09/15 [History] traZODone [TraZODone] 50 mg PO HS 01/06/16 [History] amLODIPine [Norvasc] 5 mg PO DAILY 05/16/16 [History] Acetaminophen/Butalbital/Caffe [Fioricet] 1 each PO DAILY PRN 05/14/17 [History] Ezetimibe [Zetia] 10 mg PO DAILY 05/14/17 [History] Ferrous Sulfate [Iron] 325 mg PO DAILY 05/14/17 [History] Gabapentin [Neurontin] 100 mg PO HS 05/14/17 [History] Metformin HCl [Metformin HCl ER] 500 mg PO QPM 05/14/17 [History] Promethazine [Phenergan] 25 mg PO Q6HR PRN 05/14/17 [History] Topiramate [Topamax] 50 mg PO HS 05/14/17 [History] Warfarin [Coumadin] 10 mg PO DAILY 05/15/17 [History] Acetaminophen [Tylenol] 650 mg PO Q6HR PRN tab 05/18/17 [Rx] Aspirin Enteric Coated [Aspirin EC] 81 mg PO DAILY 08/17/17 [History] Atorvastatin Calcium [Lipitor] 80 mg PO HS 08/17/17 [History] Cyclobenzaprine HCl 5 mg PO HS PRN 08/17/17 [History] Levothyroxine Sodium [Synthroid] 300 mcg PO QAM 08/17/17 [History] Isosorbide MONOnitrate (24 HR) [Imdur] 30 mg PO DAILY #30 tab.er.24h 08/19/17 [ Rx] 3 Allergy/AdvReac Type Severity Reaction Status Date / Time No Known Allergies Allergy Verified 06/24/17 21:47 All Systems PM: A 10-system review of systems was performed and is negative for pertinent findings except as documented above in the HPI. Review of systems: ROS 14 point review of systems reviewed as best as possible given presentation. Pertinent positive or negative as per HPI or otherwise reviewed as negative - Constitutional Vitals: Temp Pulse Resp BP Pulse Ox 98.2 F 94 26 109/70 97 08/20/17 11:29 08/20/17 13:12 08/20/17 13:12 08/20/17 13:12 08/20/17 13:12 Exam: General - AAO x 3 Psych - Appropriate affect/speech. No agitation Eyes - CATHERINE. Eye lids intact. No scleral icterus Heart - Sinus. RRR. S1 and S2 present. No added HS/murmurs appreciated. No elevated JVD appreciated. Lung - Adequate air entry b/l, No crackles/wheezes appreciated GI - Soft, non-tender. No hepatosplenomegaly/ascites. BS+ - No CVA/suprapubic tenderness or palpable bladder distension Skin - Intact. No rash/petechiae/ecchymosis. Warm extremities MSK - Joints with normal ROM. No joint swellings Internal Med - H&P Results - Labs CBC & Chem 7: 08/20/17 11:30 08/20/17 11:30
[2017-08-20] MEDS: Nitroglycerin 1 INCH/GM PACKET TP SCH (18:31)
[2017-08-20] MEDS: Insulin LISPRO 300 UNITS/3 ML VIAL SQ SCH ×2 (18:31→21:03)
[2017-08-20] MEDS: 0.9 % Sodium Chloride 1,000 ML IVC SCH (18:33)
[2017-08-20] MEDS: Gabapentin 100 MG CAPSULE PO SCH (21:04)
[2017-08-20] MEDS: traZODone 50 MG TABLET PO SCH (21:04)
[2017-08-20] MEDS: Topiramate 25 MG TABLET PO SCH (21:04)
[2017-08-21 04:09] LABS: INR 1.4; Prothrombin Time 15.2 Seconds (9.4-12.1)
[2017-08-21 04:22] LABS: BUN/Creatinine Ratio 29 (6-26); Blood Urea Nitrogen 31 mg/dL (8-26); Calcium 8.8 mg/dL (8.6-10.8); Carbon Dioxide 20 mEq/L (19-29); Chloride 114 mEq/L (98-109); Glucose 133 mg/dL (70-99); Osmolality,Calculated 302 (280-300); Potassium 4.1 mEq/L (3.5-4.5); Sodium 142 mEq/L (136-145); eGFR For African Americans > 60 (> 60); eGFR For Non-African Americans > 60 (> 60)
[2017-08-21] MEDS: Nitroglycerin 1 INCH/GM PACKET TP SCH ×2 (05:31→12:17)
[2017-08-21] MEDS: Aspirin Enteric Coated 81 MG Tablet PO SCH (09:26)
[2017-08-21] MEDS: BuPROPion XL (24 HR) 150 MG TABLET PO SCH (09:27)
[2017-08-21] MEDS: amLODIPine 5 MG TABLET PO SCH (09:27)
[2017-08-21] MEDS: Insulin LISPRO 300 UNITS/3 ML VIAL SQ SCH ×4 (09:30→20:41)
[2017-08-21] MEDS: Insulin DETEMIR 100 UNIT/ML X5UNITS SQ SCH (09:37)
[2017-08-21] MEDS: (Ezetimibe [Zetia] 10 MG) PO SCH (10:24)
--- NOTE | 2017-08-21 11:19 | Cardiology Consult Note ---
Date of Encounter: 08/21/17 Time of Encounter: 10:30 Assessment and Plan (1) Chest pain Current Visit: Yes Status: Acute Per cardiology: -Patient had recent admission for chest pain and was started on imdur and also beta freda was increased. -Patient reports had chest tightness 30 minutes after taking imdur at home, at rest. -Of note, patient was hypotensive on admission with BP 90s systolic. BP currently 140 systolic. -Denies aggravating or alleviating factors. -Currently has nitro paste on and denies chest pain. -Denies exertional symptoms. -Denies increased shortness of breath or increased fatigue. -Troponins negative x4. -ECG with no acute ischemic changes. -TTE 08/18/17 with LVEF 55%, mild concentric LVH, mild diastolic dysfunction, mild MR, mild TR, all wall segments with normal motion. -Nuclear stress 07/2016 negative for ischemia or infarct. -Can consider ranexa. -Will restart previous beta freda dose of 25mg BID. Qualifiers: Chest pain type: unspecified Qualified Code(s): R07.9 - Chest pain, unspecified (2) CAD (coronary artery disease) Current Visit: No Status: Chronic Per cardiology: -Known CAD with CABG 1999. Also with reported PCI since CABG. -On asa, statin. Was on beta freda in outpatient setting. -Denies current chest pain. -Presented with chest tightness while hypotensive. -Previous testing as above. -Will add beta freda. Qualifiers: Coronary Disease-Associated Artery/Lesion type: unspecified vessel or lesion type [place] vs. transplanted heart: [place] heart Associated angina: with unspecified angina Qualified Code(s): I25.119 - Atherosclerotic heart disease of [place] coronary artery with unspecified angina pectoris (3) Atrial fibrillation Current Visit: No Status: Chronic Per cardiology: -Known PAF. -On coumadin for anticoagulation. Ordered per pharmacy dosing while inpatient. -HR controlled. -Will add beta freda. Qualifiers: Atrial fibrillation type: paroxysmal Qualified Code(s): I48.0 - Paroxysmal atrial fibrillation Discussion w patient/family: The assessment and plan as outlined above was discussed with the patient who expressed understanding and agreement. All questions were answered. Thank you for involving us in the care of your patient. Please call with any questions. Discussed and reviewed with , will make changes accordingly. History of Present Illness Consult date: 08/20/17 Requesting physician: Ellie Chavez Consult reason: chest pain Chief complaint: chest pain History of present illness: Mr. Salmeron is a 77 year old male with a relevant past medical history of PVD, AAA with endograft repair, right fem-pop bypass, PAF, prior head and neck cancer s/p chemo and radiation with chronic stoma, CAD s/p CABG 1999 and PCI, CVA, HTN. Patient presented to [facility] complaints of chest tightness. Patient was recently discharged from [facility] and was started on imdur for chest pain. Patient states he took his first dose of imdur at home and 30 minutes later noticed chest tightness. Patient states he was sitting when chest tightness started. Patient states pain was midsternal and radiated across chest. Patient denies aggravating or alleviating factors. Patient denies increased shortness of breath or increased fatigue. Patient states pain resolved spontaneously while in the ER. Patient denies current chest pain or tightness. Past Med Surg Social Fam HX - Past Medical History Attestation: Yes The following information was validated with the patient. Source: patient, old records reviewed Medical history: atrial fibrillation, cancer, coronary artery disease, CVA, diabetes, hypertension, peripheral artery disease, SVT, thyroid disease Psychiatric history: no psych history - Past Surgical History Surgical History: angioplasty/stent, appendectomy, coronary bypass (CABG), herniorrhaphy, LE vascular intervention, tracheostomy - Social History Smoking Status: Former smoker Smokeless Tobacco Status: No Alcohol use: none Drug use: none - Family History Mother Living Status: Hx Family Cancer: Yes Father Living Status: Hx Family Cancer: Yes (lung cancer) Sister Living Status: Hx Family Cancer: Yes (lung cancer) Medications and Allergies Omeprazole [PriLOSEC] 20 mg PO QAM 06/11/15 [History] Sertraline [Zoloft] 100 mg PO QAM 06/11/15 [History] Tamsulosin [Flomax] 0.4 mg PO QAM 06/11/15 [History] BuPROPion XL (24 HR) [Wellbutrin Xl] 150 mg PO QAM 07/06/15 [History] Lisinopril 5 mg PO BID 08/10/15 [History] Insulin Glargine,Hum.rec.anlog [Lantus Solostar] 20 unit SQ QAM 12/09/15 [ History] Multivitamin [Multivitamins] 1 tab PO DAILY 12/09/15 [History] traZODone [TraZODone] 50 mg PO HS 01/06/16 [History] amLODIPine [Norvasc] 5 mg PO DAILY 05/16/16 [History] Acetaminophen/Butalbital/Caffe [Fioricet] 1 each PO DAILY PRN 05/14/17 [History] Ezetimibe [Zetia] 10 mg PO DAILY 05/14/17 [History] Ferrous Sulfate [Iron] 325 mg PO DAILY 05/14/17 [History] Gabapentin [Neurontin] 100 mg PO HS 05/14/17 [History] Metformin HCl [Metformin HCl ER] 500 mg PO QPM 05/14/17 [History] Promethazine [Phenergan] 25 mg PO Q6HR PRN 05/14/17 [History] Topiramate [Topamax] 50 mg PO HS 05/14/17 [History] Warfarin [Coumadin] 10 mg PO DAILY 05/15/17 [History] Acetaminophen [Tylenol] 650 mg PO Q6HR PRN tab 05/18/17 [Rx] Aspirin Enteric Coated [Aspirin EC] 81 mg PO DAILY 08/17/17 [History] Atorvastatin Calcium [Lipitor] 80 mg PO HS 08/17/17 [History] Cyclobenzaprine HCl 5 mg PO HS PRN 08/17/17 [History] Levothyroxine Sodium [Synthroid] 300 mcg PO QAM 08/17/17 [History] Isosorbide MONOnitrate (24 HR) [Imdur] 30 mg PO DAILY #30 tab.er.24h 08/19/17 [ Rx] 3 Allergy/AdvReac Type Severity Reaction Status Date / Time No Known Allergies Allergy Verified 06/24/17 21:47 All Systems Review: A 10-system review of systems was performed and is negative for pertinent findings except as documented above in the HPI. - Cardiovascular Cardiovascular: as per HPI, chest pain at rest Physical Examination Vital Signs, Last 4 Hours Temp Pulse Resp BP Pulse Ox 08/21/17 08:00 98.0 F 93 16 144/93 100 General: Conversant, No Apparent Distress HEENT: Atraumatic, Normocephaly, Mucus Membranes Moist, Other (Stoma noted to neck. ) Neck: No JVD, Normal carotid pulses Cardiac: Normal S1 and S2, No Murmur, Other (irregularly irregular) Lungs: Normal Breath Sounds, No Wheeze, Rales, Rhonchi Neuro: Alert and responsive, No focal deficits noted Abdomen: Soft, Non-Tender Skin: No rashes noted on visualized skin Musculoskeletal: No Chest Wall Tenderness Extremities: No Clubbing, No Cyanosis, No Edema, Normal Pulses Results 08/20/17 11:30 08/21/17 02:53 Lab Results Impressions Chest X-Ray 08/20/17 11:27 IMPRESSION: No active cardiopulmonary disease D/ / Ashwin Ferguson MD / Ashwin Ferguson MD Interpreting Provider: Ashwin Ferguson MD Active Medications Acetaminophen (Tylenol) 650 mg PO Q6HR PRN PRN Reason: Mild Pain (1-3) Stop: 02/19/18 15:13 Acetaminophen/Butalbital/Caffeine (Fioricet) 1 each PO DAILY PRN; Protocol PRN Reason: Headache Stop: 02/19/18 15:13 Amlodipine Besylate (Norvasc) 5 mg PO DAILY [facility] PRN Reason: Protocol Stop: 02/20/18 09:01 Last Admin: 08/21/17 09:27 Dose: 5 mg Aspirin (Aspirin Ec) 81 mg PO DAILY [facility] Stop: 02/20/18 09:01 Last Admin: 08/21/17 09:26 Dose: 81 mg Atorvastatin Calcium (Lipitor) 80 mg PO HS [facility] Stop: 02/19/18 21:01 Last Admin: 08/20/17 21:04 Dose: 80 mg Bupropion HCl (Wellbutrin Xl) 150 mg PO QAM [facility] Stop: 02/20/18 09:01 Last Admin: 08/21/17 09:27 Dose: 150 mg Cyclobenzaprine HCl (Flexeril) 5 mg PO HS PRN PRN Reason: Muscle Spasm Dextrose/Water (Dextrose 50% (Syg)) 25 ml IVP AD PRN PRN Reason: Hypoglycemia Stop: 02/19/18 15:16 Ferrous Sulfate (Ferrous Sulfate) 325 mg PO DAILY [facility] Stop: 02/20/18 09:01 Last Admin: 08/21/17 09:27 Dose: 325 mg Gabapentin (Neurontin) 100 mg PO HS [facility] Stop: 02/19/18 21:01 Last Admin: 08/20/17 21:04 Dose: 100 mg Glucagon (Glucagen) 1 mg IM ONCE PRN PRN Reason: Hypoglycemia Stop: 02/19/18 15:16 Glucose (Gluctose) 15 gm PO ONCE PRN PRN Reason: Hypoglycemia Stop: 02/19/18 15:16 Glucose (Gluctose) 30 gm PO ONCE PRN PRN Reason: Hypoglycemia Stop: 02/19/18 15:16 Dextrose (Dextrose 5%) 1,000 mls @ 100 mls/hr IVC .Q10H PRN PRN Reason: HYPOGLYCEMIA Stop: 02/19/18 15:16 Sodium Chloride (0.9 % Sodium Chloride) 1,000 mls @ 50 mls/hr IVC .Q20H [facility] Stop: 02/19/18 15:31 Last Admin: 08/20/17 18:33 Dose: 50 mls/hr Insulin Detemir (Levemir) 20 unit SQ QAM [facility] Stop: 02/20/18 09:01 Last Admin: 08/21/17 09:37 Dose: 20 unit Insulin Human Lispro (Humalog) 0 units SQ [facility] PRN Reason: Protocol Stop: 02/19/18 21:01 Last Admin: 08/20/17 21:03 Dose: Not Given Insulin Human Lispro (Humalog) 0 units SQ TIDAC [facility] PRN Reason: Protocol Stop: 02/19/18 16:31 Last Admin: 08/21/17 09:30 Dose: Not Given Levothyroxine Sodium (Synthroid) 300 mcg PO 0630 [facility] Stop: 02/20/18 06:31 Last Admin: 08/21/17 05:31 Dose: 300 mcg Lisinopril (Zestril) 5 mg PO BID [facility] PRN Reason: Protocol Stop: 02/19/18 21:01 Last Admin: 08/21/17 09:28 Dose: 5 mg Metoprolol Tartrate (Lopressor) 5 mg IVP Q5MIN [facility] Stop: 08/22/17 12:01 Last Admin: 08/20/17 12:36 Dose: 5 mg Naloxone HCl (Narcan) 0.4 mg IVP Q2MIN PRN PRN Reason: Opioid Reversal Stop: 02/19/18 15:18 Nitroglycerin (Nitroglycerin) 0.4 mg SL Q5MIN PRN PRN Reason: Chest Pain Stop: 02/19/18 12:01 Nitroglycerin (Nitroglycerin) 0.5 inch TP Q6HNTG [facility] Stop: 02/19/18 15:46 Last Admin: 08/21/17 05:31 Dose: 0.5 inch Omeprazole (Prilosec) 20 mg PO QAM [facility] PRN Reason: Protocol Stop: 02/20/18 09:01 Last Admin: 08/21/17 09:27 Dose: 20 mg Pharmacy Profile Note (Patient Taking Own Medication) 0 each PO DAILY [facility] Stop: 02/20/18 09:01 Last Admin: 08/21/17 10:24 Dose: Not Given Promethazine HCl (Phenergan) 25 mg PO Q6HR PRN PRN Reason: Vomiting Stop: 02/19/18 15:13 S[facility]ine [facility]ft) [facility] Stop: 02/20/18 09:01 Last Admin: 08/21/17 09:27 Dose: 100 mg Tamsulosin HCl (Flomax) 0.4 mg PO [facility] PRN Reason: Protocol Stop: 02/20/18 09:01 Last Admin: 08/21/17 09:27 Dose: 0.4 mg Topiramate (Topamax) 50 mg PO [facility] Stop: 02/19/18 21:01 Last Admin: 08/20/17 21:04 Dose: 50 mg Trazodone HCl (Trazodone) 50 mg PO [facility] Stop: 02/19/18 21:01 Last Admin: 08/20/17 21:04 Dose: 50 mg Warfarin Sodium (Coumadin) 10 mg PO DAILY@1800 [facility] Stop: 02/20/18 18:01 Laboratory Tests 08/20/17 08/20/17 08/20/17 11:30 11:30 17:14 Hgb 12.9 D INR Potassium Creatinine Troponin I 0.02 0.03 08/20/17 08/21/17 08/21/17 22:08 02:53 02:53 Hgb INR 1.4 Potassium Creatinine Troponin I 0.03 0.03 08/21/17 02:53 Hgb INR Potassium 4.1 Creatinine 1.07 Troponin I - Imaging and Cardiology Chest Xray: report reviewed Echo: report reviewed - EKG Interpretation EKG results cardiology: personally reviewed (ECG with atrial fibrillation with RVR, HR 118.), other (Telemetry reviewed with average HR previous 12 hours noted to be 83, atrial fibrillation/flutter. PVCs noted.) Consult Discharge Plan - Plan Referrals: Rd Mendoza MD [Primary Care Provider] -
[2017-08-21] MEDS: *HR* Metoprolol 5 MG/5 ML VIAL IVP SCH (11:56)
[2017-08-21] MEDS: 0.9 % Sodium Chloride 1,000 ML IVC SCH (12:02)
[2017-08-21] MEDS: Ranolazine 500 MG TAB.ER.12H PO SCH ×2 (14:14→20:42)
--- NOTE | 2017-08-21 14:59 | Internal Med Progress Note ---
Date of Encounter: 08/21/17 Time of Encounter: 09:30 - Assessment and plan (1) Chest pain Current Visit: Yes Status: Acute Assessment and plan: Atypical chest pain - ACS ruled out Continue Aspirin, Lipitor, Coumadin, Lopressor, Clarinex, Nitro PN EKG - no acute ischemic changes Troponin - negative Nuclear stress (07/2016) - negative for ischemia or infarct Echocardiogram - LVEF 55%, mild concentric LVH, mild diastolic dysfunction Cardiac telemetry, labs in a.m., monitor closely Qualifiers: Chest pain type: unspecified Qualified Code(s): R07.9 - Chest pain, unspecified (2) Atrial fibrillation Current Visit: No Status: Chronic Assessment and plan: Known history of atrial fibrillation, rate controlled Continue Lopressor 25 mg twice daily, continue Coumadin for anticoagulation Qualifiers: Atrial fibrillation type: paroxysmal Qualified Code(s): I48.0 - Paroxysmal atrial fibrillation (3) CAD (coronary artery disease) Current Visit: No Status: Chronic Assessment and plan: Coronary artery disease status post CABG and stents - stable Continue Lipitor, Aspirin, Coumadin Qualifiers: Coronary Disease-Associated Artery/Lesion type: unspecified vessel or lesion type [place] vs. 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 Qualified Code(s): E11.9 - Type 2 diabetes mellitus without complications ; Z79.4 - halfway (current) use of insulin; Z79.4 - terminal gauger (current) use of insulin; Z79.4 - terminal gauger (current) use of insulin; Z79.4 - halfway ( current) use of insulin (5) Hypertension Current Visit: No Status: Chronic Assessment and plan: Essential hypertension, controlled, monitor Continue home dose of Norvasc, Zestril Lopressor added today Qualifiers: Hypertension type: essential hypertension Qualified Code(s): I10 - Essential (primary) hypertension (6) DVT prophylaxis Current Visit: Yes Status: Acute Assessment and plan: Continue Coumadin - Time Spent With Patient 25 - 35 minutes - Subjective Interval history: Examined this morning. Patient is awake and alert. Not in any distress. Denies chest pain or shortness of breath. States he feels better. No fever. Hemodynamically stable. Admitted for chest pain and acute kidney injury. Cardiology has evaluated the patient and advised to start Ranexa and to restart Lopressor 25 mg twice daily troponin is negative and EKG does not show any acute ST-T changes. - Constitutional Vitals: Temp Pulse Resp BP Pulse Ox 98.7 F 99 16 120/69 99 08/21/17 12:00 08/21/17 12:00 08/21/17 12:00 08/21/17 12:00 08/21/17 12:00 General appearance: Present: cooperative, A&O X 3, pleasant, no acute distress, answers questions appropriately Exam: Patient has a chronic tracheostomy - Head Head exam: Present: atraumatic - Eye Eye exam: Present: EOMI - ENT ENT exam: Present: mucous membranes moist - Neck Additional comments: Tracheostomy site is okay - Respiratory Respiratory exam: Present: CTAB. Absent: accessory muscle use, chest wall tenderness, rales, rhonchi, wheezes, tachypnea - Cardiovascular Cardiovascular exam: Present: irregular rhythm, +S1, +S2 - GI/Abdominal GI/Abdominal exam: Present: soft. Absent: distended, firm, guarding, tenderness - Extremities Exam Extremities exam: Present: radial pulses palpable and symmetrical. Absent: cyanotic, pedal edema - Neurological Exam Neurological exam: Present: alert, oriented X3, no focal deficits. Absent: facial droop, speech deficit Internal Medicine: Result - Labs CBC & Chem 7: 08/20/17 11:30 08/21/17 02:53 Labs: BMP 08/21/17 02:53 Sodium 142 Potassium 4.1 Chloride 114 H Carbon Dioxide 20 BUN 31 H Creatinine 1.07 Glucose 133 H Calcium 8.8 Cardiac Enzymes 08/20/17 08/20/17 08/21/17 Range/Units 17:14 22:08 02:53 Troponin I 0.03 0.03 0.03 (0-0.03) ng/mL - ABG Interpretation ABG results: PT/INR, D-dimer PT 15.2 Seconds (9.4-12.1) H 08/21/17 02:53 Consult Discharge Plan - Plan Referrals: Rd Mendoza MD [Primary Care Provider] -
--- NOTE | 2017-08-21 16:40 | Electrocardiograph Report ---
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
--- NOTE | 2017-08-21 16:55 | Electrocardiograph Report ---
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
[2017-08-21] MEDS ORDERED: *HR* Warfarin 4 MG TABLET PO ONE (18:00)
[2017-08-21] MEDS ORDERED: *HR* Warfarin 5 MG TABLET PO SCH (18:00)
[2017-08-21] MEDS ORDERED: Warfarin perPT PO PRN (18:00)
[2017-08-21] MEDS: Gabapentin 100 MG CAPSULE PO SCH (20:41)
[2017-08-21] MEDS: traZODone 50 MG TABLET PO SCH (20:42)
[2017-08-21] MEDS: Topiramate 25 MG TABLET PO SCH (20:42)
[2017-08-22] MEDS: Nitroglycerin 1 INCH/GM PACKET TP SCH (06:25)
[2017-08-22] MEDS: 0.9 % Sodium Chloride 1,000 ML IVC SCH (06:26)
[2017-08-22 07:14] VITALS: BP 105/61
[2017-08-22 07:22] LABS: INR 1.7
[2017-08-22 07:37] LABS: BUN/Creatinine Ratio 30 (6-26); Blood Urea Nitrogen 28 mg/dL (8-26); Calcium 8.5 mg/dL (8.6-10.8); Carbon Dioxide 20 mEq/L (19-29); Chloride 114 mEq/L (98-109); Glucose 98 mg/dL (70-99); Osmolality,Calculated 297 (280-300); Potassium 4.5 mEq/L (3.5-4.5); Sodium 141 mEq/L (136-145); eGFR For African Americans > 60 (> 60); eGFR For Non-African Americans > 60 (> 60)
[2017-08-22] MEDS: Insulin LISPRO 300 UNITS/3 ML VIAL SQ SCH (07:38)
[2017-08-22] MEDS: Insulin DETEMIR 100 UNIT/ML X5UNITS SQ SCH (09:04)
[2017-08-22] MEDS: (Ezetimibe [Zetia] 10 MG) PO SCH (09:14)
[2017-08-22] MEDS: Ranolazine 500 MG TAB.ER.12H PO SCH (09:19)
[2017-08-22] MEDS: amLODIPine 5 MG TABLET PO SCH (09:19)
[2017-08-22] MEDS: Aspirin Enteric Coated 81 MG Tablet PO SCH (09:19)
[2017-08-22] MEDS: BuPROPion XL (24 HR) 150 MG TABLET PO SCH (09:19)
--- NOTE | 2017-08-22 10:05 | Discharge Summary ---
Date of Encounter: 08/22/17 Time of Encounter: 08:25 - Discharge Diagnosis (1) Chest pain Priority: Primary Status: Acute Comments: Atypical chest pain - ACS ruled out - symptoms now resolved Continue Aspirin, Lipitor, Coumadin, Lopressor, Ranexa, Nitro PN Stop Imdur due to hypotension EKG - no acute ischemic changes Troponin - negative Nuclear stress (07/2016) - negative for ischemia or infarct Echocardiogram - LVEF 55%, mild concentric LVH, mild diastolic dysfunction Cardiology consult - advised to continue current medications, appreciate input Return if symptoms worsen, advised to follow up with PCP and cardiology as outpatient Qualifiers: Chest pain type: unspecified Qualified Code(s): R07.9 - Chest pain, unspecified (2) Atrial fibrillation Priority: Primary Status: Chronic Comments: Known history of atrial fibrillation, rate controlled Continue Lopressor 25 mg twice daily continue Coumadin for anticoagulation Recheck PT/INR in 2 days, PCP to adjust Coumadin dose Qualifiers: Atrial fibrillation type: paroxysmal Qualified Code(s): I48.0 - Paroxysmal atrial fibrillation (3) CAD (coronary artery disease) Priority: Secondary Status: Chronic Comments: Coronary artery disease status post CABG and stents - stable Continue Lipitor, Aspirin, Coumadin Qualifiers: Coronary Disease-Associated Artery/Lesion type: unspecified vessel or lesion type [place] vs. transplanted heart: [place] heart Associated angina: with unspecified angina Qualified Code(s): I25.119 - Atherosclerotic heart disease of [place] coronary artery with unspecified angina pectoris (4) Diabetes Priority: Secondary Status: Chronic Comments: Type 2 diabetes mellitus, insulin-dependent, hyperglycemia Continue home dose of insulin Qualifiers: Diabetes mellitus type: type 2 Diabetes mellitus complication status: without complication Diabetes mellitus fci insulin use: with meterman use Qualified Code(s): E11.9 - Type 2 diabetes mellitus without complications ; Z79.4 - senior living (current) use of insulin; Z79.4 - senior living (current) use of insulin; Z79.4 - ad terminal makeup operator (current) use of insulin; Z79.4 - ad terminal makeup operator ( current) use of insulin (5) Hypertension Priority: Secondary Status: Chronic Comments: Essential hypertension, controlled, monitor - watch for hypotension Continue home dose of Norvasc, Zestril Lopressor added Qualifiers: Hypertension type: essential hypertension Qualified Code(s): I10 - Essential (primary) hypertension - Discharge Medications Prescriptions: Nitroglycerin 0.4 mg SL Q5MIN PRN #14 tab.subl PRN Reason: Chest Pain Metoprolol [Lopressor] 25 mg PO BID #60 tablet Ranolazine [Ranexa] 500 mg PO BID #60 tab.er.12h Home Medications: Omeprazole [PriLOSEC] 20 mg PO QAM 06/11/15 [History] Sertraline [Zoloft] 100 mg PO QAM 06/11/15 [History] Tamsulosin [Flomax] 0.4 mg PO QAM 06/11/15 [History] BuPROPion XL (24 HR) [Wellbutrin Xl] 150 mg PO QAM 07/06/15 [History] Lisinopril 5 mg PO BID 08/10/15 [History] Insulin Glargine,Hum.rec.anlog [Lantus Solostar] 20 unit SQ QAM 12/09/15 [ History] Multivitamin [Multivitamins] 1 tab PO DAILY 12/09/15 [History] traZODone [TraZODone] 50 mg PO HS 01/06/16 [History] amLODIPine [Norvasc] 5 mg PO DAILY 05/16/16 [History] Acetaminophen/Butalbital/Caffe [Fioricet] 1 each PO DAILY PRN 05/14/17 [History] Ezetimibe [Zetia] 10 mg PO DAILY 05/14/17 [History] Ferrous Sulfate [Iron] 325 mg PO DAILY 05/14/17 [History] Gabapentin [Neurontin] 100 mg PO HS 05/14/17 [History] Metformin HCl [Metformin HCl ER] 500 mg PO QPM 05/14/17 [History] Promethazine [Phenergan] 25 mg PO Q6HR PRN 05/14/17 [History] Topiramate [Topamax] 50 mg PO HS 05/14/17 [History] Warfarin [Coumadin] 10 mg PO DAILY 05/15/17 [History] Acetaminophen [Tylenol] 650 mg PO Q6HR PRN tab 05/18/17 [Rx] Aspirin Enteric Coated [Aspirin EC] 81 mg PO DAILY 08/17/17 [History] Atorvastatin Calcium [Lipitor] 80 mg PO HS 08/17/17 [History] Cyclobenzaprine HCl 5 mg PO HS PRN 08/17/17 [History] Levothyroxine Sodium [Synthroid] 300 mcg PO QAM 08/17/17 [History] Metoprolol [Lopressor] 25 mg PO BID #60 tablet 08/22/17 [Rx] Nitroglycerin 0.4 mg SL Q5MIN PRN #14 tab.subl 08/22/17 [Rx] Ranolazine [Ranexa] 500 mg PO BID #60 tab.er.12h 08/22/17 [Rx] Allergies/Adverse Reactions: 3 Allergy/AdvReac Type Severity Reaction Status Date / Time No Known Allergies Allergy Verified 06/24/17 21:47 Procedures/tests Complete & Pending: Procedures Performed prior 72 hours Category Date Time Status ECG 12 lead ECG [ECG] AM 0600 Y 08/21/17 06:00 Completed Date of admission: 08/20/17 13:45 Primary care physician: Rd Mendoza MD Consults: 08/21/17 08:08 Consult for Pharmacy Education [CONS] Routine Reason for Consult: warfarin dosing Call Completed: No Anticipated date of discharge: 08/22/17 - Patient Status Disposition: Home Health Service Condition: Fair Overall status at discharge: patient is back to baseline - Discharge Instructions Instructions: Metoprolol (By mouth), Nitroglycerin (By mouth), Ranolazine (By mouth), Chest Pain (DC) Follow Up With: Rd Mendoza MD [Primary Care Provider] - 08/24/17 9:00 am Shane Bowles DO [Partnered Physician] - Additional Instructions: - Continue all meds as per discharge instructions - Check blood pressure daily, watch for hypotension - Recheck PT/INR in 2 days time - PCP to adjust Coumadin dose - Follow up with PCP and cardiology as outpatient - Return if symptoms worsen - Diet and Activity Activity: increase activity as tolerated, resume usual activities as tolerated Diet: low fat, low cholesterol, low salt diet Hospital course: Mr. Salmeron is a 77 year old male with past medical history of atrial fibrillation, coronary artery disease, CVA, diabetes, hypertension, peripheral arterial disease, SVT and thyroid disease. 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 Tracheostomy site looks okay. Patient is able to verbalize. He presented to the ED with complaints of chest pain. Patient does have coronary artery disease status post CABG and he is on optimal medical management. He was recently admitted and discharged for similar complaints. Patient apparently took his Imdur and suddenly felt chest pain. He may have had hypotension. Cardiology has evaluated the patient. Advised to continue metoprolol 25 mg twice daily and also added Ranexa. Troponins are negative. EKG does not show any acute ischemic changes. Echo shows LVEF 55% with mild diastolic dysfunction. Nuclear stress test done in July 2016 shows negative for ischemia or infarct. Since chest pain has now resolved. He is hemodynamically stable. He has been advised to hold Imdur and to continue all other medications. He is also on Coumadin for anticoagulation for A. fib. At this time a serious has been ruled out. Patient is tolerating oral diet well and ambulating well. He seems to be back to baseline. He has been explained about his condition and plan of care in detail. He understood and agreed. No unanswered questions. No other acute events or complications during his stay. Patient is being discharged in stable condition. - Time Spent with Patient Total time spent providing and/or coordinating discharge services: Less than 30 minutes - Constitutional Vitals: Temp Pulse Resp BP Pulse Ox 97.9 F 56 16 105/61 94 08/22/17 07:07 08/22/17 07:07 08/22/17 07:07 08/22/17 07:07 08/22/17 07:07 General appearance: Present: cooperative, A&O X 3, pleasant, no acute distress, answers questions appropriately - Head Head exam: Present: atraumatic - Eye Eye exam: Present: EOMI - ENT ENT exam: Present: mucous membranes moist - Neck Additional comments: Tracheostomy site is okay - Respiratory Respiratory exam: Present: CTAB. Absent: accessory muscle use, chest wall tenderness, rales, rhonchi, wheezes, tachypnea - Cardiovascular Cardiovascular exam: Present: RRR, +S1, +S2 - GI/Abdominal GI/Abdominal exam: Present: soft. Absent: distended, firm, guarding, tenderness - Extremities Exam Extremities exam: Present: radial pulses palpable and symmetrical. Absent: calf tenderness, cyanotic, pedal edema - Neurological Exam Neurological exam: Present: alert, oriented X3, no focal deficits. Absent: facial droop, speech deficit
--- NOTE | 2017-08-22 10:13 | Physician Discharge Referral ---
Home Health/Hosp Referral Info Transfer to: Home Health Provider in Charge Post Discharge: PCP - Diagnosis (1) Chest pain Priority: Primary Status: Acute (2) Atrial fibrillation Priority: Primary Status: Chronic (3) CAD (coronary artery disease) Priority: Secondary Status: Chronic (4) Diabetes Priority: Secondary Status: Chronic (5) Hypertension Priority: Secondary Status: Chronic - Respiratory Orders Smoking Cessation: Smoking cessation has been advised. For more information, call the [place] Tobacco Quit Line at 4-135-FOFS-NOW. - Diet/Nutrition Diet/Nutrition Orders: Cardiac - Activity Activity Orders: Ambulate - Services Needed Following services are medically necessary services: Nursing, Physical Therapy - Transfer Medications Prescriptions: Nitroglycerin 0.4 mg SL Q5MIN PRN #14 tab.subl PRN Reason: Chest Pain Metoprolol [Lopressor] 25 mg PO BID #60 tablet Ranolazine [Ranexa] 500 mg PO BID #60 tab.er.12h Home Medications: Omeprazole [PriLOSEC] 20 mg PO QAM 06/11/15 [History] Sertraline [Zoloft] 100 mg PO QAM 06/11/15 [History] Tamsulosin [Flomax] 0.4 mg PO QAM 06/11/15 [History] BuPROPion XL (24 HR) [Wellbutrin Xl] 150 mg PO QAM 07/06/15 [History] Lisinopril 5 mg PO BID 08/10/15 [History] Insulin Glargine,Hum.rec.anlog [Lantus Solostar] 20 unit SQ QAM 12/09/15 [ History] Multivitamin [Multivitamins] 1 tab PO DAILY 12/09/15 [History] traZODone [TraZODone] 50 mg PO HS 01/06/16 [History] amLODIPine [Norvasc] 5 mg PO DAILY 05/16/16 [History] Acetaminophen/Butalbital/Caffe [Fioricet] 1 each PO DAILY PRN 05/14/17 [History] Ezetimibe [Zetia] 10 mg PO DAILY 05/14/17 [History] Ferrous Sulfate [Iron] 325 mg PO DAILY 05/14/17 [History] Gabapentin [Neurontin] 100 mg PO HS 05/14/17 [History] Metformin HCl [Metformin HCl ER] 500 mg PO QPM 05/14/17 [History] Promethazine [Phenergan] 25 mg PO Q6HR PRN 05/14/17 [History] Topiramate [Topamax] 50 mg PO HS 05/14/17 [History] Warfarin [Coumadin] 10 mg PO DAILY 05/15/17 [History] Acetaminophen [Tylenol] 650 mg PO Q6HR PRN tab 05/18/17 [Rx] Aspirin Enteric Coated [Aspirin EC] 81 mg PO DAILY 08/17/17 [History] Atorvastatin Calcium [Lipitor] 80 mg PO HS 08/17/17 [History] Cyclobenzaprine HCl 5 mg PO HS PRN 08/17/17 [History] Levothyroxine Sodium [Synthroid] 300 mcg PO QAM 08/17/17 [History] Metoprolol [Lopressor] 25 mg PO BID #60 tablet 08/22/17 [Rx] Nitroglycerin 0.4 mg SL Q5MIN PRN #14 tab.subl 08/22/17 [Rx] Ranolazine [Ranexa] 500 mg PO BID #60 tab.er.12h 08/22/17 [Rx] Allergies/Adverse Reactions: 3 Allergy/AdvReac Type Severity Reaction Status Date / Time No Known Allergies Allergy Verified 06/24/17 21:47 Certification: Further, I certify that my clinical findings support that this patient is homebound (i.e. absences from home require considerable and taxing effort and are for medical reasons or roman catholic services or infrequently or short duration when for other reasons) because: Homebound Reason: Patient requires assistance of a person or device to safely leave home Attestation: My signature below is to certify that this patient is under my care and that I, or nurse practitioner, or a physician's regulatory assistant working with me, has a face-to -face encounter with this patient.
[2017-08-22] MEDS ORDERED: *HR* Warfarin 7.5 MG TABLET PO ONE (18:00)
--- NOTE | 2017-08-23 05:55 | Electrocardiograph Report ---
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
== END 2017-08-22 14:20 | disposition home health service (06) ==
LOC: EMEROO 11:15 → 3BNU 11:15
PROVIDERS: ADMIT Internal Medicine Hematology & Oncology; ATTEND Registered Nurse

== ENCOUNTER 2017-09-04 11:25 | Inpatient (IN) ==
--- NOTE | 2017-09-04 11:59 | Emergency Department Note ---
Disposition Clinical Impression: Asbestosis Atrial fibrillation Qualifiers: Atrial fibrillation type: unspecified Qualified Code(s): I48.91 - Unspecified atrial fibrillation Disposition: Admitted As Inpatient Condition: Good Referrals: Rd Mendoza MD [Primary Care Provider] - Forms: ED Satisfaction Letter Time of Disposition: 14:24 Chest Pain HPI - General Chief Complaint: ED Chest Pain Stated Complaint: C/P Time Seen by Provider: 09/04/17 11:28 Source: patient, family Limitations: no limitations Vital Signs Reviewed: Yes Nursing Notes Reviewed: Yes - History of Present Illness HPI Narrative: 77 year old male with history of atrial fibrillaiton and is on coumadin therapy and is usualy rate controlled present to he eD with with increased midsternal chest pain and shortness of breath with diaphoresis and states that he has 4 stesnts in his heart from 2008 and that this feels silmiar to his blockages inthe past. 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 Patient has difficulty talking and has to cover a previous tracheostomy hole to verbalize.. Patient denies fevers, cough, or congestion but has been nauseated. chest pain is described as sharp and pleuritic. Severity scale (1-10): 5 - Related Data Home Medications Medication Instructions Recorded Confirmed Omeprazole [PriLOSEC] 20 mg PO QAM 06/11/15 09/04/17 Sertraline [Zoloft] 100 mg PO QAM 06/11/15 09/04/17 Tamsulosin [Flomax] 0.4 mg PO QAM 06/11/15 09/04/17 BuPROPion XL (24 HR) [Wellbutrin 150 mg PO QAM 07/06/15 09/04/17 Xl] Lisinopril 5 mg PO BID 08/10/15 09/04/17 Insulin Glargine,Hum.rec.anlog 20 unit SQ QAM 12/09/15 09/04/17 [Lantus Solostar] Multivitamin [Multivitamins] 1 tab PO DAILY 12/09/15 09/04/17 traZODone [TraZODone] 50 mg PO HS 01/06/16 09/04/17 amLODIPine [Norvasc] 5 mg PO DAILY 05/16/16 09/04/17 Acetaminophen/Butalbital/Caffe 1 each PO DAILY PRN 05/14/17 09/04/17 [Fioricet] Ezetimibe [Zetia] 10 mg PO DAILY 05/14/17 09/04/17 Ferrous Sulfate [Iron] 325 mg PO DAILY 05/14/17 09/04/17 Gabapentin [Neurontin] 100 mg PO HS 05/14/17 09/04/17 Metformin HCl [Metformin HCl ER] 500 mg PO QPM 05/14/17 09/04/17 Promethazine [Phenergan] 25 mg PO Q6HR PRN 05/14/17 09/04/17 Topiramate [Topamax] 50 mg PO HS 05/14/17 09/04/17 Warfarin [Coumadin] 10 mg PO DAILY 05/15/17 09/04/17 Aspirin Enteric Coated [Aspirin EC] 81 mg PO DAILY 08/17/17 09/04/17 Atorvastatin Calcium [Lipitor] 80 mg PO HS 08/17/17 09/04/17 Cyclobenzaprine HCl 5 mg PO HS PRN 08/17/17 09/04/17 Levothyroxine Sodium [Synthroid] 300 mcg PO QAM 08/17/17 09/04/17 Previous Rx's Medication Instructions Recorded Acetaminophen [Tylenol] 650 mg PO Q6HR PRN tab 05/18/17 Metoprolol [Lopressor] 25 mg PO BID #60 tablet 08/22/17 Nitroglycerin 0.4 mg SL Q5MIN PRN #14 tab.subl 08/22/17 Ranolazine [Ranexa] 500 mg PO BID #60 tab.er.12h 08/22/17 Allergies Allergy/AdvReac Type Severity Reaction Status Date / Time No Known Allergies Allergy Verified 06/24/17 21:47 Constitutional: Reports: weakness. Denies: fever, chills, weight change Eyes: Denies: eye pain, eye discharge, vision change ENT ED: Denies: ear pain, throat pain, dental pain, hearing loss, epistaxis, congestion, dysphagia Cardiovascular: Reports: chest pain. Denies: palpitations, dyspnea on exertion , edema, syncope Respiratory: Denies: cough, dyspnea, wheezes, hemoptysis, stridor Gastrointestinal: Reports: nausea. Denies: abdominal pain, vomiting, diarrhea, constipation, hematemesis, melena, hematochezia Genitourinary: Denies: urgency, dysuria, frequency, hematuria Musculoskeletal: Denies: back pain, neck pain, arthralgia, myalgia Integumentary: Denies: rash, abrasion, lesions Neurological: Denies: headache, weakness, numbness, paresthesias, confusion, abnormal gait, vertigo Psychiatric: Denies: anxiety, depression, suicidal thoughts, homicidal thoughts , auditory hallucinations, visual hallucinations Endocrine: Denies: fatigue Hematological/Lymphatic: Denies: easy bleeding, easy bruising Allergic/Immunologic: Denies: facial swelling, urticaria Chest Pain PMH - Past Medical History Medical history: Reports: atrial fibrillation, cancer, coronary artery disease, CVA, diabetes, hypertension, peripheral artery disease, SVT, thyroid disease Surgical history: Reports: angioplasty/stent, appendectomy, coronary bypass ( CABG), herniorrhaphy, LE vascular intervention, tracheostomy Psychiatric history: Reports: no psych history - Social History Smoking Status: Former smoker Alcohol use: Reports: none Drug use: Reports: none Physical Exam - General Limitations: no limitations General appearance: alert, in no apparent distress - Head Head exam: atraumatic, normocephalic, normal inspection - Eye Eye exam: Present: normal appearance, PERRL, EOMI - Expanded Eye Exam Pupils: Left: reactive - ENT ENT exam: normal exam, normal oropharynx, mucous membranes moist, other (old tracheoostomy site that is open and healed, he breathes through it) - Expanded ENT Exam External ear exam: Present: normal external inspection Mouth exam: Present: normal external inspection Teeth exam: Present: normal inspection Throat exam: Present: normal inspection - Neck Neck exam: Present: normal inspection, full ROM, trachea midline - Chest Chest inspection: Present: normal inspection, symmetric chest wall rise - Respiratory Respiratory exam: Present: normal lung sounds bilaterally - Cardiovascular Cardiovascular exam: Present: tachycardia, irregular rhythm, normal heart sounds - Abdominal Exam Abdominal exam: Present: soft, Non-Tender. Absent: tenderness, distention, guarding, rebound, rigidity - Extremities Exam Extremities exam: Present: normal inspection, full ROM. Absent: tenderness, pedal edema - Expanded Upper Extremity Exam Shoulder exam: Present: normal inspection, full ROM Arm exam: Present: normal inspection, full ROM Elbow exam: Present: normal inspection, full ROM Forearm/Wrist exam: Present: normal inspection, full ROM Hand exam: Present: normal inspection, full ROM Vascular exam: Normal: capillary refill, radial pulse - Expanded Lower Extremity Exam Hip/Pelvis exam: Present: normal inspection, full ROM Upper leg exam: Present: normal inspection, full ROM Knee exam: Present: normal inspection, full ROM Lower leg exam: Present: normal inspection, full ROM Ankle exam: Present: normal inspection, full ROM Foot/toe exam: Present: normal inspection, full ROM Neurovascular/Tendon exam: Absent: motor deficit, sensory deficit, tendon deficit - Back Exam Back exam: Present: normal inspection, full ROM. Absent: tenderness - Neurological Exam Neurological exam: Present: alert, oriented X3 - Expanded Neurological Exam Patient oriented to: Present: person, place, time Coma Scale Eye Opening: Spontaneous Coma Scale Motor Response: Obeys Commands Coma Scale Verbal Response: Oriented Coma Scale Total: 15 - Psychiatric Psychiatric exam: Present: normal affect, normal mood - Skin Skin exam: Present: warm, dry, intact, normal color Course Course Narrative: we will do a cardiopulmonary workup and treat with cardizem for rate control. we will admit to medicine - Reevaluation(s) Reevaluation #1: updatd patient on results and he is agreeable to admisison. Time: 14:22 - Consultations Consultation #1: discussed case with Dr. Bonds and he accepts aptien tot his service. He states he would like a mag level checked and for us to dose him with 20Eq of potassium. Time: 14:23 Vital Signs Temperature 98.2 F 09/04/17 11:29 Pulse Rate 120 09/04/17 11:29 Respiratory Rate 18 09/04/17 11:29 Blood Pressure 161/91 09/04/17 11:29 O2 Sat by Pulse Oximetry 92 09/04/17 11:29 Temperature 98.2 F 09/04/17 11:29 Pulse Rate 89 09/04/17 13:47 Respiratory Rate 18 09/04/17 13:47 Blood Pressure 125/87 09/04/17 13:47 O2 Sat by Pulse Oximetry 96 09/04/17 13:47 Oxygen Delivery Oxygen Delivery Room Air Chest Pain - Medical Records Medical records reviewed: Yes I reviewed the patient's medical records. - Lab Data Lab results reviewed: Yes I reviewed the patient's lab results. Result diagrams: 09/04/17 11:50 09/04/17 11:50 Lab Results 09/04/17 09/04/17 09/04/17 Range/Units 11:50 11:50 11:50 WBC 6.4 (4.3-11.1) K/mcL RBC 4.45 (4.19-5.50) M/mcL Hgb 12.8 L (12.9-16.9) g/dL Hct 39.7 (37.5-50.1) % MCV 89.2 (83.0-100.0) fL MCH 28.8 (28.0-33.3) pg MCHC 32.2 (31.6-35.5) g/dL RDW 14.6 H (11.5-14.5) % Plt Count 160 (140-400) K/mcL MPV 10.6 (9.4-12.4) fL Immature Gran % 0.2 (0-4) % Seg Neutrophils % 63.2 % Lymphocytes % 17.8 % Monocytes % 10.2 % Eosinophils % 8.1 % Basophils % 0.5 % Neutrophils # 4.0 (1.6-8.9) K/mcL Lymphocytes # 1.1 (0.6-4.6) K/mcL Monocytes # 0.7 (0.0-1.3) K/mcL Eosinophils # 0.5 (0.0-0.6) K/mcL Basophils # 0.0 (0.0-0.2) K/mcL PT 33.0 H (9.4-12.1) Seconds INR 3.0 APTT 39.6 H (26.0-36.0) Seconds Sodium 139 (136-145) mEq/L Potassium 4.0 (3.5-4.5) mEq/L Chloride 107 (98-109) mEq/L Carbon Dioxide 25 (19-29) mEq/L BUN 23 (8-26) mg/dL Creatinine 1.00 (0.72-1.25) mg/dL Est GFR ( Amer) > 60 (> 60) Est GFR (Non-Af Amer) > 60 (> 60) BUN/Creatinine Ratio 23 (6-26) Glucose 122 H (70-99) mg/dL Calculated Osmolality 293 (280-300) Lactic Acid (0.5-2.2) mmol/L Calcium 9.2 (8.6-10.8) mg/dL Troponin I (0-0.03) ng/mL 09/04/17 09/04/17 Range/Units 11:50 12:04 WBC (4.3-11.1) K/mcL RBC (4.19-5.50) M/mcL Hgb (12.9-16.9) g/dL Hct (37.5-50.1) % MCV (83.0-100.0) fL MCH (28.0-33.3) pg MCHC (31.6-35.5) g/dL RDW (11.5-14.5) % Plt Count (140-400) K/mcL MPV (9.4-12.4) fL Immature Gran % (0-4) % Seg Neutrophils % % Lymphocytes % % Monocytes % % Eosinophils % % Basophils % % Neutrophils # (1.6-8.9) K/mcL Lymphocytes # (0.6-4.6) K/mcL Monocytes # (0.0-1.3) K/mcL Eosinophils # (0.0-0.6) K/mcL Basophils # (0.0-0.2) K/mcL PT (9.4-12.1) Seconds INR APTT (26.0-36.0) Seconds Sodium (136-145) mEq/L Potassium (3.5-4.5) mEq/L Chloride (98-109) mEq/L Carbon Dioxide (19-29) mEq/L BUN (8-26) mg/dL Creatinine (0.72-1.25) mg/dL Est GFR ( Amer) (> 60) Est GFR (Non-Af Amer) (> 60) BUN/Creatinine Ratio (6-26) Glucose (70-99) mg/dL Calculated Osmolality (280-300) Lactic Acid 1.5 (0.5-2.2) mmol/L Calcium (8.6-10.8) mg/dL Troponin I 0.03 (0-0.03) ng/mL - Radiology Data Radiology results reviewed: Yes I reviewed the patient's radiology results. - EKG Data EKG attestation: Yes I reviewed and interpreted this EKG. EKG results narrative: atrial fibrilation with rate of 133. NO STEMI. change from old ekg of 08/21/17 ( afib rate controlled). 1137
[2017-09-04 12:15] LABS: Basophils % 0.5 %; Eosinophils # 0.5 K/mcL (0.0-0.6); Eosinophils % 8.1 %; Hematocrit 39.7 % (37.5-50.1); Hemoglobin 12.8 g/dL (12.9-16.9); Immature Granulocytes % 0.2 % (0-4); Lymphocytes # 1.1 K/mcL (0.6-4.6); Lymphocytes % 17.8 %; Mean Corpuscular HGB Conc 32.2 g/dL (31.6-35.5); Mean Corpuscular Hemoglobin 28.8 pg (28.0-33.3); Mean Corpuscular Volume 89.2 fL (83.0-100.0); Mean Platelet Volume 10.6 fL (9.4-12.4); Monocytes # 0.7 K/mcL (0.0-1.3); Monocytes % 10.2 %; Platelet Count 160 K/mcL (140-400); Red Blood Count 4.45 M/mcL (4.19-5.50); Red Cell Distribution Width 14.6 % (11.5-14.5); Segmented Neutrophils % 63.2 %
[2017-09-04 12:25] LABS: BUN/Creatinine Ratio 23 (6-26); Blood Urea Nitrogen 23 mg/dL (8-26); Calcium 9.2 mg/dL (8.6-10.8); Carbon Dioxide 25 mEq/L (19-29); Chloride 107 mEq/L (98-109); Glucose 122 mg/dL (70-99); Osmolality,Calculated 293 (280-300); Sodium 139 mEq/L (136-145); eGFR For African Americans > 60 (> 60); eGFR For Non-African Americans > 60 (> 60)
[2017-09-04 12:32] LABS: Activated Partial Thrombo Time 39.6 Seconds (26.0-36.0)
[2017-09-04 14:37] LABS: Magnesium 1.9 mg/dL (1.6-2.6)
[2017-09-04] MEDS ORDERED: Nitroglycerin 0.4 MG TAB.SUBL SL PRN (15:05)
[2017-09-04] MEDS ORDERED: Acetaminophen/Butalbital/CaffeineTABLET PO PRN (15:05)
[2017-09-04] MEDS ORDERED: Acetaminophen 325 MG TABLET PO PRN (15:05)
[2017-09-04] MEDS ORDERED: *HR* Morphine 2 MG/ML SYRINGE IVP PRN (15:09)
[2017-09-04] MEDS ORDERED: Dextrose Gel 15 GM PO PRN ×2 (15:09)
[2017-09-04] MEDS ORDERED: *HR* Dextrose 50 % in Water (Syg) 50 ML SYRINGE IVP PRN (15:09)
[2017-09-04] MEDS ORDERED: D5% in Water 1,000 ML IVC PRN (15:09)
[2017-09-04] MEDS ORDERED: Naloxone 0.4 MG/ML INJ IVP PRN ×2 (15:09→17:29)
[2017-09-04] MEDS ORDERED: NON-FORMULARY MEDICATION 1 EACH EACH (Ezetimibe [Zetia] 10 MG) PO SCH (15:15)
--- NOTE | 2017-09-04 15:16 | Internal Med History&Physical ---
<Tonny Egan - Last Filed: 09/04/17 16:06> Date of Encounter: 09/04/17 Time of Encounter: 15:14 Assessment and Plan (1) Atrial fibrillation with RVR Current visit: Yes Status: Acute Known history of PAF, patient in today with A. fib RVR, admits to tachycardia An shortness of breath which began approximately 0800 's morning Being admitted for observation; will likely need IV Cardizem drip for rate control Was very hypertensive this morning with SBP of 193, has not taken antihypertensives today Upon my exam the patient is resting comfortably, admits to mild shortness of breath And midsternal dull/nagging, nonexertional chest pain 02/22 without radiation He remains hemodynamically stable, mildly hypertensive with SBP in the 140s On Coumadin for anticoagulation; resume Coumadin with dosing per PT Start Cardizem drip; resume home dose of beta freda first dose now Discontinue Cardizem drip and rate control achieved Continuous telemetry, continuous O2 monitoring (2) Chest pain Current visit: Yes Status: Acute Recent admission for chest pain, at that time was started on Imdur and beta freda dose adjusted Reports sob and chest pain that is dull/nagging, nonexertional, nonradiating, beginning this morning, also reporting his BP of 193, found to be in A. fib RVR both likely contributing to his chest pain CTA negative for PE, troponin -0.03, EKG no ST elevation and no changes from prior Last TTE 09/14/17 with LVEF 55% mild concentric LVH, mild diastolic dysfunction, mild MR, mild TR, all wall segments with normal motion. Nuclear stress 07/2016 negative for ischemia or infarct. His extensive cardiac history including stents and CABG x3 vessels Due to hypertension and continued chest pain we will continue to rule out ACS Continues telemetry, serial troponins Hold off on TTE, his chest pain worsens or continues or troponin elevation noted We will stress patient; however, not considering stress test this time Will consider cardio consult if CP does not resolve with BP control or HR control He is hemodynamically stable. Qualifiers: Chest pain type: unspecified Qualified Code(s): R07.9 - Chest pain, unspecified (3) Diabetes Current visit: Yes Status: Chronic History of type 2 diabetes, blood glucose well controlled as of this admission Stop all oral hypoglycemic agents. 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 Resume levothyroxine at home dose Qualifiers: Hypothyroidism type: other Qualified Code(s): E03.8 - Other specified hypothyroidism (5) HTN (hypertension) with goal to be determined Current visit: Yes Status: Acute History of hypertension, reports SBP 193 this morning Continues to be hypertensive with SBP in 140s Has not taken blood pressure medications today Resume beta freda, Imdur, TEREZA inhibitor now Every 4 hours vitals, continuous telemetry (6) DVT prophylaxis Current visit: Yes Status: Acute On Coumadin, PT to dose. No unilateral extremity pain or swelling Internal Medicine - H&P: HPI Chief complaint: afib RVR, CP, SOB Admitted From: Home Plans for Post Hospital Care: Home History of present illness: Mr. Salmeron is a 77 year old male with PMH of PVD, AAA with endograft repair, right fem-pop bypass, PAF, prior head and neck cancer s/p chemo and radiation with chronic stoma, CAD s/p CABG 1999 and PCI, CVA, HTN. [facility] today with HTN and Afib RVR. He reports that he complaint with his medication regimen and is normally rate controlled. He has c/o SOB and midsternal dull/ nagging, nonexertional and nonradiating CP rated 5/10 which began at 0800 this morning. He denies any aggravating or alleviating factors. He states that I woke up this morning and didn't feel good, my SBP was 193, and I was SOB. Denies any fever, chills, cough, pleuritic pain, diaphoresis, or unilateral leg swelling. Admits to nausea but no other GI symptoms. CXR, CTA unremarkable, troponin negative. Past Med Surg Social Fam HX - Past Medical History Medical history: atrial fibrillation, cancer, coronary artery disease, CVA, diabetes, hypertension, peripheral artery disease, SVT, thyroid disease Psychiatric history: no psych history - Past Surgical History Surgical History: angioplasty/stent, appendectomy, coronary bypass (CABG), herniorrhaphy, LE vascular intervention, tracheostomy - Social History Smoking Status: Former smoker Smokeless Tobacco Status: No Alcohol use: none Drug use: none - Family History Mother Living Status: Hx Family Cancer: Yes Father Living Status: Hx Family Cancer: Yes (lung cancer) Sister Living Status: Hx Family Cancer: Yes (lung cancer) Internal Medicine - H&P: Meds Omeprazole [PriLOSEC] 20 mg PO QAM 06/11/15 [History] Sertraline [Zoloft] 100 mg PO QAM 06/11/15 [History] Tamsulosin [Flomax] 0.4 mg PO QAM 06/11/15 [History] BuPROPion XL (24 HR) [Wellbutrin Xl] 150 mg PO QAM 07/06/15 [History] Lisinopril 5 mg PO BID 08/10/15 [History] Insulin Glargine,Hum.rec.anlog [Lantus Solostar] 20 unit SQ QAM 12/09/15 [ History] Multivitamin [Multivitamins] 1 tab PO DAILY 12/09/15 [History] traZODone [TraZODone] 50 mg PO HS 01/06/16 [History] amLODIPine [Norvasc] 5 mg PO DAILY 05/16/16 [History] Acetaminophen/Butalbital/Caffe [Fioricet] 1 each PO DAILY PRN 05/14/17 [History] Ezetimibe [Zetia] 10 mg PO DAILY 05/14/17 [History] Ferrous Sulfate [Iron] 325 mg PO DAILY 05/14/17 [History] Gabapentin [Neurontin] 100 mg PO HS 05/14/17 [History] Metformin HCl [Metformin HCl ER] 500 mg PO QPM 05/14/17 [History] Promethazine [Phenergan] 25 mg PO Q6HR PRN 05/14/17 [History] Topiramate [Topamax] 50 mg PO HS 05/14/17 [History] Warfarin [Coumadin] 10 mg PO DAILY 05/15/17 [History] Acetaminophen [Tylenol] 650 mg PO Q6HR PRN tab 05/18/17 [Rx] Aspirin Enteric Coated [Aspirin EC] 81 mg PO DAILY 08/17/17 [History] Atorvastatin Calcium [Lipitor] 80 mg PO HS 08/17/17 [History] Cyclobenzaprine HCl 5 mg PO HS PRN 08/17/17 [History] Levothyroxine Sodium [Synthroid] 300 mcg PO QAM 08/17/17 [History] Metoprolol [Lopressor] 25 mg PO BID #60 tablet 08/22/17 [Rx] Nitroglycerin 0.4 mg SL Q5MIN PRN #14 tab.subl 08/22/17 [Rx] Ranolazine [Ranexa] 500 mg PO BID #60 tab.er.12h 08/22/17 [Rx] 3 Allergy/AdvReac Type Severity Reaction Status Date / Time No Known Allergies Allergy Verified 06/24/17 21:47 All Systems PM: A 10-system review of systems was performed and is negative for pertinent findings except as documented above in the HPI. - Constitutional Constitutional: fatigue, no chills, no excessive sweating, no fever(s), no night sweats, no weight gain, no weight loss - Cardiovascular Cardiovascular ROS IM: chest pain, dyspnea, irregular heart rhythm, palpitations , no claudication, no edema, no lightheadedness, no orthopnea, no syncope - Respiratory Respiratory: dyspnea, no cough, no hemoptysis, no wheezing, no pain on inspiration, no chest congestion, no excessive phlegm production, no pain with cough - Gastrointestinal Gastrointestinal: no abdominal pain, no diarrhea, no hematemesis, no hematochezia, no melena, no nausea, no vomiting - Musculoskeletal Musculoskeletal ROS IM: no numbness, no tingling - Integumentary Integumentary IM: no rash, no unusual bruising - Neurological Neurological ROS: no confusion, no convulsions, no focal weakness, no numbness, no tingling, no tremor(s) - Constitutional Vitals: Temp Pulse Resp BP Pulse Ox 0 F L 89 18 142/77 96 09/04/17 15:08 09/04/17 13:47 09/04/17 15:08 09/04/17 15:08 09/04/17 13:47 General appearance: Present: cooperative, A&O X 3, answers questions appropriately Exam: Generally ill appearing 77 year old male; appears fatigued, in no obvious respiratory distress although c/o SOB - Head Head exam: Present: atraumatic, normocephalic - Neck Neck exam general surgery: Present: supple, trachea midline. Absent: lymphadenopathy - Respiratory Respiratory exam: Present: decreased breath sounds, CTAB, tachypnea - Cardiovascular Cardiovascular exam: Present: irregular rhythm, tachycardia. Absent: diastolic murmur, systolic murmur - GI/Abdominal GI/Abdominal exam: Present: normal bowel sounds, soft, no peritoneal signs. Absent: distended, tenderness - Extremities Exam Extremities exam: Present: warm, radial pulses palpable and symmetrical. Absent : calf tenderness, cyanotic, pedal edema - Neurological Exam Neurological exam: Present: alert, oriented X3 - Skin Skin exam: Present: dry, intact Internal Med - H&P Results - Labs CBC & Chem 7: 09/04/17 11:50 09/04/17 11:50 - EKG Data -: EKG Interpreted by Myself - EKG Data When compared to previous EKG: there is no significant change EKG comments: Atrial fibrillation with RVR rate of 133 09/04/17 15:20 - Diagnostic Studies Chest x-ray Status: image reviewed by me Additional comments: No acute pulmonary process CT scan - chest Status: image reviewed by me Additional comments: CTA chest reveals no pulmonary embolus, showing pleural thickening which is unchanged from prior CT 2015. - VTE Reasons for not Prescribing Prophylaxis: Not indicated-Anticoagulated or INR therapeutic <Octavio Bonds - Last Filed: 09/04/17 18:13> Date of Encounter: 09/04/17 Time of Encounter: 16:45 - Constitutional Vitals: Temp Pulse Resp BP Pulse Ox 97.7 F 101 16 143/89 95 09/04/17 16:14 09/04/17 17:31 09/04/17 17:31 09/04/17 17:31 09/04/17 17:31 General appearance: Present: cooperative, A&O X 3, pleasant, no acute distress - Eye Eye exam: Present: EOMI, PERRL. Absent: scleral icterus Pupils: Present: normal accommodation - ENT ENT exam: Present: mucous membranes dry - Neck Additional comments: tracheostomy - Respiratory Respiratory exam: Present: decreased breath sounds, CTAB. Absent: chest wall tenderness, rales, respiratory distress, rhonchi - Cardiovascular Cardiovascular exam: Present: irregular rhythm, +S1, +S2. Absent: diastolic murmur, systolic murmur Additional comments: HR controlled -- 80's now - GI/Abdominal GI/Abdominal exam: Present: normal bowel sounds, soft. Absent: tenderness - Extremities Exam Extremities exam: Present: warm, radial pulses palpable and symmetrical. Absent : calf tenderness, cyanotic, pedal edema - Back Exam Back exam: Absent: CVA tenderness (L), CVA tenderness (R) Internal Med - H&P Results - Labs CBC & Chem 7: 09/04/17 11:50 09/04/17 11:50 - EKG Data -: EKG Interpreted by Myself - EKG Data EKG comments: 09/04/17 18:06 Atrial fibrillation w RVR - Diagnostic Studies Chest x-ray Status: image reviewed by me (negative) - Attending Attestation I discussed the patient [place], PMH, ROS, lab data, and exam findings with Tonny Egan CNP. I then saw and examined patient independently as well. Upon my assessment, patient is resting comfortably and denies CP or SOB. HR is controlled and he remains on Cardizem drip. We will try to wean off his Cardizem drip and resume home meds as detailed by Tonny. If his troponins rise or we are unable to control his atrial fibrillation, we'll consult cardiology. Other than my comments above and noted exam findings, I agree with Tonny's assessment and plan.
[2017-09-04] MEDS ORDERED: 0.9 % Sodium Chloride 250 ML ONE (16:28)
[2017-09-04] MEDS: dilTIAZem HCl 100 MG in D5% in Water 50 ML IVC SCH (16:32)
[2017-09-04] MEDS: BuPROPion XL (24 HR) 150 MG TABLET PO SCH (16:33)
[2017-09-04] MEDS: amLODIPine 5 MG TABLET PO SCH (16:35)
[2017-09-04] MEDS: Insulin LISPRO 300 UNITS/3 ML VIAL SQ SCH ×2 (17:05→22:30)
[2017-09-04] MEDS ORDERED: *HR* Warfarin 10 MG TABLET PO SCH (18:00)
[2017-09-04] MEDS ORDERED: Warfarin perPT PO PRN (18:00)
--- NOTE | 2017-09-04 18:56 | Electrocardiograph Report ---
[address] [place] [address] Test Date: 2017-09-04 Pat Name: Jordi Salmeron Department: 102 Room: 2A25 Gender: M Behavior Therapist: Sierra : 1940 Requested By: Mahogany [place] Order Number: [id number] Reading MD: Tono Vizcaino MD Measurements Intervals [place] Rate: 133 P: OR: 0 QRS: -24 QRSD: 107 T: -19 QT: 305 QTc: 383 Interpretive Statements ATRIAL FIBRILLATION WITH RAPID VENTRICULAR RESPONSE MINIMAL VOLTAGE CRITERIA FOR LVH INFERIOR MYOCARDIAL INFARCTION, OF INDETERMINATE AGE Electronically Signed On 09-04-2017 18:54:59 EST by Tono Vizcaino MD
--- NOTE | 2017-09-04 19:02 | Event Note ---
Date of Encounter: 09/04/17 Time of Encounter: 19:00 second troponin resulted at 0.14. Denies any CP, he is stable and not in any distress. Cardio consulted. Spoke with Dr. Lloyd who suggested further monitoring since the patient is already anticoagulated, therapeutic, and without CP. Cardio to round on him tomorrow.
[2017-09-04] MEDS: Ranolazine 500 MG TAB.ER.12H PO SCH (20:53)
[2017-09-04] MEDS: Topiramate 25 MG TABLET PO SCH (20:53)
[2017-09-04] MEDS: traZODone 50 MG TABLET PO SCH (20:53)
[2017-09-04] MEDS: Gabapentin 100 MG CAPSULE PO SCH (20:54)
[2017-09-05 06:19] LABS: Basophils % 0.4 %; Eosinophils # 0.7 K/mcL (0.0-0.6); Eosinophils % 9.5 %; Hemoglobin 12.8 g/dL (12.9-16.9); Immature Granulocytes % 0.3 % (0-4); Lymphocytes % 13.2 %; Mean Corpuscular Hemoglobin 28.4 pg (28.0-33.3); Mean Corpuscular Volume 88.7 fL (83.0-100.0); Mean Platelet Volume 10.8 fL (9.4-12.4); Monocytes # 0.7 K/mcL (0.0-1.3); Monocytes % 8.7 %; Neutrophils # 5.1 K/mcL (1.6-8.9); Platelet Count 157 K/mcL (140-400); Prothrombin Time 32.7 Seconds (9.4-12.1); Red Blood Count 4.51 M/mcL (4.19-5.50); Red Cell Distribution Width 14.6 % (11.5-14.5); Segmented Neutrophils % 67.9 %
[2017-09-05 06:34] LABS: BUN/Creatinine Ratio 24 (6-26); Blood Urea Nitrogen 25 mg/dL (8-26); Calcium 9.1 mg/dL (8.6-10.8); Carbon Dioxide 22 mEq/L (19-29); Chloride 110 mEq/L (98-109); Glucose 121 mg/dL (70-99); Osmolality,Calculated 294 (280-300); Potassium 4.6 mEq/L (3.5-4.5); Sodium 139 mEq/L (136-145); eGFR For African Americans > 60 (> 60); eGFR For Non-African Americans > 60 (> 60)
[2017-09-05] MEDS: Insulin LISPRO 300 UNITS/3 ML VIAL SQ SCH ×4 (07:32→21:25)
[2017-09-05 09:32] LABS: Bilirubin,Urine Negative (Negative); Blood,Urine Trace (Negative); Clarity,Urine Turbid (Clear); Color,Urine Yellow (Yellow); Glucose,Urine (UA) Normal (Normal); Ketones,Urine Negative (Negative); Leukocyte Esterase,Urine Large (Negative); Nitrite,Urine Negative (Negative); Protein,Urine 30 mg/dL (Neg-Trace); Specific Gravity,Urine 1.026 (1.010-1.025); Urobilinogen,Urine Normal (Normal)
[2017-09-05 09:34] LABS: Bacteria,Urine Many per hpf (None-Few); Hyaline Casts,Urine None Seen per lpf (None-Few); Squamous Epithelial Cell,Urine Few per lpf (None-Few); WBC,Urine TNTC per hpf (0-3)
[2017-09-05] MEDS: dilTIAZem HCl 100 MG in D5% in Water 50 ML IVC SCH (09:47)
[2017-09-05] MEDS: Insulin DETEMIR 100 UNIT/ML X5UNITS SQ SCH (10:16)
[2017-09-05] MEDS: amLODIPine 5 MG TABLET PO SCH (10:17)
[2017-09-05] MEDS: Aspirin Enteric Coated 81 MG Tablet PO SCH (10:17)
[2017-09-05] MEDS: BuPROPion XL (24 HR) 150 MG TABLET PO SCH (10:17)
[2017-09-05] MEDS: Ranolazine 500 MG TAB.ER.12H PO SCH ×2 (10:17→21:34)
--- NOTE | 2017-09-05 10:30 | Cardiology Consult Note ---
<JeffTianna J - Last Filed: 09/05/17 10:26> Date of Encounter: 09/05/17 Time of Encounter: 08:00 Assessment and Plan (1) Chest pain Current Visit: Yes Status: Acute Per cardiology: -Admitted with typical chest pain symptoms. Occurs with exertion, relieved with rest and nitro. -Denies current chest pain. -ECG with no acute ischemic changes. -Troponins mildly elevated. -PLan for LHC, however INR today 3. Will hold coumadin and make NPO after midnight for possible LHC in am. Qualifiers: Chest pain type: unspecified Qualified Code(s): R07.9 - Chest pain, unspecified (2) Atrial fibrillation with RVR Current Visit: Yes Status: Acute Per cardiology: -Known a.fib, a.fib RVR on admission. -On beta freda. -Average HR previous 12 hours, 79. -On coumadin for anticoagulation. -Will hold coumadin in anticipation for LHC. -Will continue to monitor. (3) Elevated troponin Current Visit: Yes Status: Acute Per cardiology: -Troponin 0.03, 0.14, 0.12 in the setting of atrial fibrillation with RVR. -ADmitted with chest pain, denies current. -ECG with no acute ischemic changes. -PLan for LHC when able. -Will consult cardiac rehab. (4) CAD (coronary artery disease) Current Visit: No Status: Chronic Per cardiology: -KNown CAD with CABG 1999 and remote history of PCI. -NO previous LHC to review at [facility]> -Patient states he does not think he has had a LHC since CABG. -ON asa, statin, beta freda, ranexa. -TTE 08/18/17 with LVEF 55%, mild concentric LVH, mild diastolic dysfunction, mild MR, mild TR, all wall segments with normal motion. -! nuclear stress negative for ischemia or infarct. -PLan for LHC, possibly tomorrow. Qualifiers: Coronary Disease-Associated Artery/Lesion type: unspecified vessel or lesion type [place] vs. transplanted heart: [place] heart Associated angina: with unspecified angina Qualified Code(s): I25.119 - Atherosclerotic heart disease of [place] coronary artery with unspecified angina pectoris Discussion w patient/family: The assessment and plan as outlined above was discussed with the patient who expressed understanding and agreement. All questions were answered. Thank you for involving us in the care of your patient. Please call with any questions. Discussed and reviewed with . History of Present Illness Consult date: 09/04/17 Requesting physician: Tonny Egan Consult reason: HTN, elevated troponin Chief complaint: chest pain History of present illness: Mr. Salmeron is a 77 year old male with a relevant past medical history of PVD, AAA s/p endograft repair, right fem-pop bypass, PAF, prior head and neck cancer s/p chemo and radiation with chronic stoma, CAD s/p CABG 1999 and remote PCI, CVA, HTN. Patient presented to [facility] with complaints of chest pain. Patient states pain started while working in yard. Patient states pain was relieved with rest and nitro. Patient denies current chest pain. Of note, patient has had several admission for chest pain recently. Past Med Surg Social Fam HX - Past Medical History Attestation: Yes The following information was validated with the patient. Source: patient, old records reviewed Medical history: atrial fibrillation, cancer, coronary artery disease, CVA, diabetes, hypertension, peripheral artery disease, SVT, thyroid disease Psychiatric history: no psych history - Past Surgical History Surgical History: angioplasty/stent, appendectomy, coronary bypass (CABG), herniorrhaphy, LE vascular intervention, tracheostomy - Social History Smoking Status: Former smoker Smokeless Tobacco Status: No Alcohol use: none Drug use: none - Family History Mother Living Status: Hx Family Cancer: Yes Father Living Status: Hx Family Cancer: Yes (lung cancer) Sister Living Status: Hx Family Cancer: Yes (lung cancer) Medications and Allergies Omeprazole [PriLOSEC] 20 mg PO QAM 06/11/15 [History] Sertraline [Zoloft] 100 mg PO QAM 06/11/15 [History] Tamsulosin [Flomax] 0.4 mg PO QAM 06/11/15 [History] BuPROPion XL (24 HR) [Wellbutrin Xl] 150 mg PO QAM 07/06/15 [History] Lisinopril 5 mg PO BID 08/10/15 [History] Insulin Glargine,Hum.rec.anlog [Lantus Solostar] 20 unit SQ QAM 12/09/15 [ History] Multivitamin [Multivitamins] 1 tab PO DAILY 12/09/15 [History] traZODone [TraZODone] 50 mg PO HS 01/06/16 [History] amLODIPine [Norvasc] 5 mg PO DAILY 05/16/16 [History] Acetaminophen/Butalbital/Caffe [Fioricet] 1 each PO DAILY PRN 05/14/17 [History] Ezetimibe [Zetia] 10 mg PO DAILY 05/14/17 [History] Ferrous Sulfate [Iron] 325 mg PO DAILY 05/14/17 [History] Gabapentin [Neurontin] 100 mg PO HS 05/14/17 [History] Metformin HCl [Metformin HCl ER] 500 mg PO QPM 05/14/17 [History] Promethazine [Phenergan] 25 mg PO Q6HR PRN 05/14/17 [History] Topiramate [Topamax] 50 mg PO HS 05/14/17 [History] Warfarin [Coumadin] 10 mg PO DAILY 05/15/17 [History] Acetaminophen [Tylenol] 650 mg PO Q6HR PRN tab 05/18/17 [Rx] Aspirin Enteric Coated [Aspirin EC] 81 mg PO DAILY 08/17/17 [History] Atorvastatin Calcium [Lipitor] 80 mg PO HS 08/17/17 [History] Cyclobenzaprine HCl 5 mg PO HS PRN 08/17/17 [History] Levothyroxine Sodium [Synthroid] 300 mcg PO QAM 08/17/17 [History] Metoprolol [Lopressor] 25 mg PO BID #60 tablet 08/22/17 [Rx] Nitroglycerin 0.4 mg SL Q5MIN PRN #14 tab.subl 08/22/17 [Rx] Ranolazine [Ranexa] 500 mg PO BID #60 tab.er.12h 08/22/17 [Rx] 3 Allergy/AdvReac Type Severity Reaction Status Date / Time No Known Allergies Allergy Verified 06/24/17 21:47 All Systems Review: A 10-system review of systems was performed and is negative for pertinent findings except as documented above in the HPI. - Cardiovascular Cardiovascular: as per HPI, chest pain with exertion Physical Examination Vital Signs, Last 4 Hours Temp Pulse Resp BP Pulse Ox 09/05/17 07:33 98.1 F 86 17 108/67 96 General: Conversant, No Apparent Distress, Other (Patient placed finger over stoma when speaking. ) HEENT: Atraumatic, Normocephaly, Mucus Membranes Moist Neck: No JVD, Normal carotid pulses, Other (Stoma noted. ) Cardiac: Reg Rate and Rhythm, Normal S1 and S2, No Murmur Lungs: Normal Breath Sounds, No Wheeze, Rales, Rhonchi Neuro: Alert and responsive, No focal deficits noted Abdomen: Soft, Non-Tender Skin: No rashes noted on visualized skin Musculoskeletal: No Chest Wall Tenderness Extremities: No Clubbing, No Cyanosis, No Edema, Normal Pulses Results 09/05/17 05:12 09/05/17 05:12 Lab Results Impressions Chest X-Ray 09/04/17 11:29 IMPRESSION: Stable exam with no acute abnormality. D/ / 09/04/2017 12:52:20 Jose Luis Huber MD / lucas Interpreting Provider: Jose Luis Huber MD Chest CTA 09/04/17 11:50 IMPRESSION: No evidence of pulmonary embolism. Unchanged pleural thickening with calcification in the right lower lobe compared to multiple prior studies dating back to 2015. Findings are favored to be related to prior infection/inflammation, though asbestos related pleural disease could have a similar appearance. D/ / Dontae Loza MD / Dontae Loza MD Interpreting Provider: Dontae Loza MD Active Medications Acetaminophen (Tylenol) 650 mg PO Q6HR PRN PRN Reason: Mild Pain (1-3) Stop: 03/06/18 15:06 Acetaminophen/Butalbital/Caffeine (Fioricet) 1 each PO DAILY PRN; Protocol PRN Reason: Headache Stop: 03/06/18 15:06 Amlodipine Besylate (Norvasc) 5 mg PO DAILY ZOLTAN PRN Reason: Protocol Stop: 03/06/18 15:16 Last Admin: 09/05/17 10:17 Dose: 5 mg Aspirin (Aspirin Ec) 81 mg PO DAILY ZOLTAN Stop: 03/07/18 09:01 Last Admin: 09/05/17 10:17 Dose: 81 mg Atorvastatin Calcium (Lipitor) 80 mg PO HS [facility] Stop: 03/06/18 21:01 Last Admin: 09/04/17 20:53 Dose: 80 mg Bupropion HCl (Wellbutrin Xl) 150 mg PO QAM [facility] Stop: 03/06/18 15:16 Last Admin: 09/05/17 10:17 Dose: 150 mg Cyclobenzaprine HCl (Flexeril) 5 mg PO HS PRN PRN Reason: Muscle Spasm Dextrose/Water (Dextrose 50% (Syg)) 25 ml IVP AD PRN PRN Reason: Hypoglycemia Stop: 03/06/18 15:10 Ferrous Sulfate (Ferrous Sulfate) 325 mg PO DAILY [facility] Stop: 03/06/18 15:16 Last Admin: 09/05/17 10:17 Dose: 325 mg Gabapentin (Neurontin) 100 mg PO HS [facility] Stop: 03/06/18 21:01 Last Admin: 09/04/17 20:54 Dose: 100 mg Glucagon (Glucagen) 1 mg IM ONCE PRN PRN Reason: Hypoglycemia Stop: 03/06/18 15:10 Glucose (Gluctose) 15 gm PO ONCE PRN PRN Reason: Hypoglycemia Stop: 03/06/18 15:10 Glucose (Gluctose) 30 gm PO ONCE PRN PRN Reason: Hypoglycemia Stop: 03/06/18 15:10 Dextrose (Dextrose 5%) 1,000 mls @ 100 mls/hr IVC .Q10H PRN PRN Reason: HYPOGLYCEMIA Stop: 03/06/18 15:10 Insulin Det[facility] (Leve[facility]) [facility] Stop: 03/07/18 09:01 Last Admin: 09/05/17 10:16 Dose: 20 unit Insulin Human Lispro (Humalog) 0 units SQ HS [facility] PRN Reason: Protocol Stop: 03/06/18 21:01 Last Admin: 09/04/17 22:30 Dose: Not Given Insulin Human Lispro (Humalog) 0 units SQ TIDAC [facility] PRN Reason: Protocol Stop: 03/06/18 16:31 Last Admin: 09/05/17 07:32 Dose: Not Given Levothyroxine Sodium (Synthroid) 300 mcg PO DAILY@0630 [facility] Stop: 03/07/18 08:18 Lisinopril (Zestril) 5 mg PO BID [facility] PRN Reason: Protocol Stop: 03/06/18 15:07 Last Admin: 09/05/17 10:17 Dose: 5 mg Metoprolol Tartrate (Lopressor) 25 mg PO BID [facility] Stop: 03/06/18 15:08 Last Admin: 09/05/17 10:17 Dose: 25 mg Morphine Sulfate (Morphine Sulfate) 2 mg IVP Q4HR PRN PRN Reason: Chest Pain Stop: 03/06/18 15:10 Naloxone HCl (Narcan) 0.4 mg IVP Q2MIN PRN PRN Reason: Opioid Reversal Stop: 03/06/18 17:30 Nitroglycerin (Nitroglycerin) 0.4 mg SL Q5MIN PRN PRN Reason: Chest Pain Stop: 03/06/18 15:06 Omeprazole (Prilosec) 20 mg PO QAM [facility] PRN Reason: Protocol Stop: 03/06/18 15:16 Last Admin: 09/05/17 10:16 Dose: 20 mg Promethazine HCl (Phenergan) 25 mg PO Q6HR PRN PRN Reason: Vomiting Stop: 03/06/18 15:06 Ranolazine (Ranexa) 500 mg PO BID [facility] Stop: 03/06/18 21:01 Last Admin: 09/05/17 10:17 Dose: Not Given Sertraline HCl (Zoloft) 100 [facility] Stop: 03/06/18 15:16 Last Admin: 09/05/17 10:17 Dose: 100 mg Tamsulosin HCl (Flomax) 0.4 mg [facility] PRN Reason: Protocol Stop: 03/06/18 15:16 Last Admin: 09/05/17 10:16 Dose: 0.4 mg Topiramate (Topamax) 50 mg PO [facility] Stop: 03/06/18 21:01 Last Admin: 09/04/17 20:53 Dose: 50 mg Trazodone HCl (Trazodone) 50 mg PO [facility] Stop: 03/06/18 21:01 Last Admin: 09/04/17 20:53 Dose: 50 mg Laboratory Tests 09/04/17 09/04/17 09/04/17 11:50 11:50 17:39 Hgb INR Potassium Creatinine Magnesium 1.9 Troponin I 0.03 0.14 H* 09/04/17 09/05/17 09/05/17 23:57 05:12 05:12 Hgb 12.8 L INR Potassium 4.6 H Creatinine 1.04 Magnesium Troponin I 0.12 H* 09/05/17 05:12 Hgb INR 3.0 Potassium Creatinine Magnesium Troponin I - Imaging and Cardiology Chest Xray: report reviewed Stress Test: report reviewed Echo: report reviewed - EKG Interpretation EKG results cardiology: personally reviewed (ECG with atrial fibrillation RVR, HR 133.), other (Telemetry reviewed with average HR previous 12 hours noted to be 79, atrial fibrillation/flutter. PVCs noted.) Consult Discharge Plan - Plan Referrals: Rd Mendoza MD [Primary Care Provider] - <ParekhTheronHany J - Last Filed: 09/05/17 15:50> Date of Encounter: 09/05/17 - Attending Attestation I have personally performed a face to face evaluation on this patient. I have reviewed and agree with the care plan. History and Exam by me shows: IMP/Plan: 1. Elevated troponin: Troponin elevation consistent with acute myocardial necrosis, recommend LHC/Poss, discussed risks and benefits with pt, agrees to proceed, will tenetively schedule for tomorrow if INR < 1.8 2. CAD - known severe triple vessel CAD, post CABG x 3 1999, with remote hx PCI before CABG 3. PAF - in A fib with RVR on presentation to the ER, now adequate rate control , on low dose beta blockade, on warfarin for primary stroke risk reduction, will hold for planned LHC in AM. Assessment and Plan Discussion w patient/family: The assessment and plan as outlined above was discussed with the patient and/or family members who expressed understanding and agreement. All questions were answered. Thank you for involving us in the care of your patient. Please call with any questions. History of Present Illness History of present illness: Mr. Salmeron is a 77 year old male All Systems Review: A 10-system review of systems was performed and is negative for pertinent findings except as documented above in the HPI. Physical Examination Vital Signs, Last 4 Hours Temp Pulse Resp BP Pulse Ox 09/05/17 11:26 98.7 F 85 20 104/67 95 Results 09/05/17 05:12 09/05/17 05:12 Lab Results 09/04/17 09/04/17 09/05/17 17:39 23:57 05:12 WBC 7.4 Hgb 12.8 L Hct 40.0 Plt Count 157 INR Sodium Potassium Chloride Carbon Dioxide BUN Creatinine Glucose Calcium Troponin I 0.14 H* 0.12 H* 09/05/17 09/05/17 05:12 05:12 WBC Hgb Hct Plt Count INR 3.0 Sodium 139 Potassium 4.6 H Chloride 110 H Carbon Dioxide 22 BUN 25 Creatinine 1.04 Glucose 121 H Calcium 9.1 Troponin I
[2017-09-05] MEDS: cefTRIAXone 1,000 MG in Water for inj. (sterile) 10 ML IVP SCH (15:22)
[2017-09-05] MEDS ORDERED: CefTRIAXone 1,000 MG VIAL ONE (15:22)
[2017-09-05] MEDS: Topiramate 25 MG TABLET PO SCH (21:34)
[2017-09-05] MEDS: Gabapentin 100 MG CAPSULE PO SCH (21:34)
[2017-09-05] MEDS: traZODone 50 MG TABLET PO SCH (21:34)
--- NOTE | 2017-09-05 22:30 | Internal Med Progress Note ---
Date of Encounter: 09/05/17 Time of Encounter: 12:28 - Assessment and plan (1) Bacteriuria Current Visit: Yes Status: Acute Assessment and plan: No current complaints. Will start Rocephin and discontinue when urine cultures negative. (2) Chest pain Current Visit: Yes Status: Acute Assessment and plan: Cardiology following, recs appreciated. Possible LHC tomorrow. Coumadin held. Qualifiers: Chest pain type: unspecified Qualified Code(s): R07.9 - Chest pain, unspecified (3) Atrial fibrillation with RVR Current Visit: Yes Status: Acute Assessment and plan: Rate controlled. Anticoagulation held for possible LHC (4) CAD (coronary artery disease) Current Visit: No Status: Chronic Qualifiers: Coronary Disease-Associated Artery/Lesion type: unspecified vessel or lesion type [place] vs. transplanted heart: [place] heart Associated angina: with unspecified angina Qualified Code(s): I25.119 - Atherosclerotic heart disease of [place] coronary artery with unspecified angina pectoris (5) Diabetes Current Visit: Yes Status: Chronic Qualifiers: Diabetes mellitus type: type 2 Diabetes mellitus complication status: without complication Diabetes mellitus senior care insulin use: with senior care use Qualified Code(s): E11.9 - Type 2 diabetes mellitus without complications ; Z79.4 - ad terminal makeup operator (current) use of insulin; Z79.4 - ad terminal makeup operator (current) use of insulin; Z79.4 - ad terminal makeup operator (current) use of insulin; Z79.4 - ad terminal makeup operator ( current) use of insulin (6) DVT prophylaxis Current Visit: No Status: Acute (7) Atrial fibrillation Current Visit: Yes Status: Chronic Qualifiers: Atrial fibrillation type: unspecified Qualified Code(s): I48.91 - Unspecified atrial fibrillation (8) Hypertension Current Visit: No Status: Chronic Qualifiers: Hypertension type: essential hypertension Qualified Code(s): I10 - Essential (primary) hypertension (9) Chronic anemia Current Visit: No Status: Chronic - Subjective Interval history: No acute events. UA done today with findings of bacteruria. - Constitutional Vitals: Temp Pulse Resp BP Pulse Ox 97.6 F 57 16 100/60 96 09/05/17 19:39 09/05/17 19:39 09/05/17 19:39 09/05/17 19:39 09/05/17 19:39 General appearance: Present: cooperative, A&O X 3, pleasant, no acute distress Exam: - Head Head exam: Present: atraumatic, normocephalic - Neck Neck exam general surgery: Present: supple, trachea midline. Absent: lymphadenopathy - Respiratory Respiratory exam: Present: decreased breath sounds, CTAB, tachypnea - Cardiovascular Cardiovascular exam: Present: irregular rhythm, tachycardia. Absent: diastolic murmur, systolic murmur - GI/Abdominal GI/Abdominal exam: Present: normal bowel sounds, soft, no peritoneal signs. Absent: distended, tenderness - Extremities Exam Extremities exam: Present: warm, radial pulses palpable and symmetrical. Absent : calf tenderness, cyanotic, pedal edema - Neurological Exam Neurological exam: Present: alert, oriented X3 - Skin Skin exam: Present: dry, intact Internal Medicine: Result - Labs CBC & Chem 7: 09/05/17 05:12 09/05/17 05:12 Labs: Short CBC 09/05/17 Range/Units 05:12 WBC 7.4 (4.3-11.1) K/mcL Hgb 12.8 L (12.9-16.9) g/dL Hct 40.0 (37.5-50.1) % Plt Count 157 (140-400) K/mcL Neutrophils # 5.1 (1.6-8.9) K/mcL BMP 09/05/17 05:12 Sodium 139 Potassium 4.6 H Chloride 110 H Carbon Dioxide 22 BUN 25 Creatinine 1.04 Glucose 121 H Calcium 9.1 Cardiac Enzymes 09/04/17 Range/Units 23:57 Troponin I 0.12 H* (0-0.03) ng/mL Urine 09/05/17 Range/Units 08:55 Urine Color Yellow (Yellow) Urine Clarity Turbid A (Clear) Urine pH 7.0 (5.0-8.0) pH Units Ur Specific [place] 1.026 H (1.010-1.025) Urine Protein 30 H (Neg-Trace) mg/dL Urine Glucose (UA) Normal (Normal) mg/dL - ABG Interpretation ABG results: PT/INR, D-dimer PT 32.7 Seconds (9.4-12.1) H 09/05/17 05:12 - VTE Reasons for not Prescribing Prophylaxis: Not indicated-Anticoagulated or INR therapeutic Consult Discharge Plan - Plan Referrals: Rd Mendoza MD [Primary Care Provider] -
[2017-09-06 04:07] LABS: Basophils % 0.5 %; Eosinophils # 0.7 K/mcL (0.0-0.6); Eosinophils % 11.1 %; Hematocrit 38.4 % (37.5-50.1); Hemoglobin 11.9 g/dL (12.9-16.9); Immature Granulocytes % 0.3 % (0-4); Lymphocytes # 1.3 K/mcL (0.6-4.6); Lymphocytes % 19.5 %; Mean Corpuscular Hemoglobin 27.9 pg (28.0-33.3); Mean Corpuscular Volume 90.1 fL (83.0-100.0); Mean Platelet Volume 10.5 fL (9.4-12.4); Monocytes # 0.7 K/mcL (0.0-1.3); Monocytes % 10.3 %; Neutrophils # 3.7 K/mcL (1.6-8.9); Platelet Count 144 K/mcL (140-400); Red Blood Count 4.26 M/mcL (4.19-5.50); Red Cell Distribution Width 14.6 % (11.5-14.5); Segmented Neutrophils % 58.3 %
[2017-09-06 04:11] LABS: INR 4.1
[2017-09-06 04:21] LABS: Calcium 9.1 mg/dL (8.6-10.8); Potassium 4.1 mEq/L (3.5-4.5)
[2017-09-06] MEDS: Insulin LISPRO 300 UNITS/3 ML VIAL SQ SCH ×4 (08:19→20:50)
[2017-09-06] MEDS: Aspirin Enteric Coated 81 MG Tablet PO SCH (08:19)
[2017-09-06] MEDS: amLODIPine 5 MG TABLET PO SCH (08:19)
[2017-09-06] MEDS: Ranolazine 500 MG TAB.ER.12H PO SCH ×2 (08:19→20:45)
[2017-09-06] MEDS: BuPROPion XL (24 HR) 150 MG TABLET PO SCH (08:20)
[2017-09-06] MEDS: Insulin DETEMIR 100 UNIT/ML X5UNITS SQ SCH (08:27)
--- NOTE | 2017-09-06 09:32 | Cardiology Progress Note ---
Date of Encounter: 09/06/17 Time of Encounter: 08:30 Assessment and Plan (1) Chest pain Current Visit: Yes Status: Acute Per cardiology: -Admitted with typical chest pain symptoms. Occurs with exertion, relieved with rest and nitro. -Denies current chest pain. -ECG with no acute ischemic changes. -Troponins mildly elevated. -PLan for LHC, however INR today 4.1. Continue to hold coumadin and make NPO after midnight for possible LHC in am. Qualifiers: Chest pain type: unspecified Qualified Code(s): R07.9 - Chest pain, unspecified (2) Atrial fibrillation with RVR Current Visit: Yes Status: Acute Per cardiology: -Known a.fib, a.fib, RVR on admission. -On beta freda. -Average HR previous 12 hours, 56. -On coumadin for anticoagulation. -Will hold coumadin in anticipation for LHC. -Will continue to monitor. (3) Elevated troponin Current Visit: Yes Status: Acute Per cardiology: -Troponin 0.03, 0.14, 0.12 in the setting of atrial fibrillation with RVR. -ADmitted with chest pain, denies current. -ECG with no acute ischemic changes. -PLan for LHC when able. -Will consult cardiac rehab. (4) CAD (coronary artery disease) Current Visit: No Status: Chronic Per cardiology: -KNown CAD with CABG 1999 and remote history of PCI. -NO previous LHC to review at [facility]. -Patient states he does not think he has had a LHC since CABG. -ON asa, statin, beta freda, ranexa. -TTE 08/18/17 with LVEF 55%, mild concentric LVH, mild diastolic dysfunction, mild MR, mild TR, all wall segments with normal motion. -! nuclear stress negative for ischemia or infarct. -PLan for LHC, possibly tomorrow. Qualifiers: Coronary Disease-Associated Artery/Lesion type: unspecified vessel or lesion type [place] vs. transplanted heart: [place] heart Associated angina: with unspecified angina Qualified Code(s): I25.119 - Atherosclerotic heart disease of [place] coronary artery with unspecified angina pectoris (5) JAKE (acute kidney injury) Current Visit: No Status: Acute Per cardiology: -Creatinine today 1.44. -Baseline 0.9-1 -Management per primary service. -Can consider nephrology consult. Discussion w patient/family: The assessment and plan as outlined above was discussed with the patient who expressed understanding and agreement. All questions were answered. Thank you for involving us in the care of your patient. Please call with any questions. Discussed and reviewed with . Subjective Principal diagnosis: Chest pain Interval history: Patient denies chest pain overnight. Denies shortness of breath. Patient denies bleeding or blood loss. Objective Vital Signs, Last 4 Hours Temp Pulse Resp BP Pulse Ox 09/06/17 07:07 97.4 F L 57 20 144/74 92 General: Conversant, No Apparent Distress HEENT: Atraumatic, Normocephaly, Mucus Membranes Moist Neck: No JVD, Normal carotid pulses Cardiac: Normal S1 and S2, No Murmur, Other (Irregularly irregular) Lungs: Normal Breath Sounds, No Wheeze, Rales, Rhonchi Neuro: Alert and responsive, No focal deficits noted Abdomen: Soft, Non-Tender Skin: No rashes noted on visualized skin Musculoskeletal: No Chest Wall Tenderness Extremities: No Clubbing, No Cyanosis, No Edema, Normal Pulses Results 09/06/17 03:43 09/06/17 03:43 Lab Results Active Medications Acetaminophen (Tylenol) 650 mg PO Q6HR PRN PRN Reason: Mild Pain (1-3) Stop: 03/06/18 15:06 Acetaminophen/Butalbital/Caffeine (Fioricet) 1 each PO DAILY PRN; Protocol PRN Reason: Headache Stop: 03/06/18 15:06 Amlodipine Besylate (Norvasc) 5 mg PO DAILY [facility] PRN Reason: Protocol Stop: 03/06/18 15:16 Last Admin: 09/06/17 08:19 Dose: 5 mg Aspirin (Aspirin Ec) 81 mg PO DAILY [facility] Stop: 03/07/18 09:01 Last Admin: 09/06/17 08:19 Dose: 81 mg Atorvastatin Calcium (Lipitor) 80 mg PO HS [facility] Stop: 03/06/18 21:01 Last Admin: 09/05/17 21:34 Dose: 80 mg Bupropion HCl (Wellbutrin Xl) 150 mg PO QAM [facility] Stop: 03/06/18 15:16 Last Admin: 09/06/17 08:20 Dose: 150 mg Cyclobenzaprine HCl (Flexeril) 5 mg PO HS PRN PRN Reason: Muscle Spasm Dextrose/Water (Dextrose 50% (Syg)) 25 ml IVP AD PRN PRN Reason: Hypoglycemia Stop: 03/06/18 15:10 Ferrous Sulfate (Ferrous Sulfate) 325 mg PO DAILY [facility] Stop: 03/06/18 15:16 Last Admin: 09/06/17 08:19 Dose: 325 mg Gabapentin (Neurontin) 100 mg PO HS [facility] Stop: 03/06/18 21:01 Last Admin: 09/05/17 21:34 Dose: 100 mg Glucagon (Glucagen) 1 mg IM ONCE PRN PRN Reason: Hypoglycemia Stop: 03/06/18 15:10 Glucose (Gluctose) 15 gm PO ONCE PRN PRN Reason: Hypoglycemia Stop: 03/06/18 15:10 Glucose (Gluctose) 30 gm PO ONCE PRN PRN Reason: Hypoglycemia Stop: 03/06/18 15:10 Dextrose (Dextrose 5%) 1,000 mls @ 100 mls/hr IVC .Q10H PRN PRN Reason: HYPOGLYCEMIA Stop: 03/06/18 15:10 Ceftriaxone Sodium 1,000 mg/ (Sterile Water) 10 mls @ 300 mls/hr IVP Q24H [facility] Stop: 03/07/18 14:01 Last Infusion: 09/05/17 15:23 Dose: Infused Insulin Detemir (Levemir) 20 unit SQ QAM [facility] Stop: 03/07/18 09:01 Last Admin: 09/06/17 08:27 Dose: 8 unit Insulin Human Lispro (Humalog) [address] [facility] PRN Reason: Protocol Stop: 03/06/18 21:01 Last Admin: 09/05/17 21:25 Dose: Not Given Insulin Human Lispro (Humalog) 0 units SQ TIDAC [facility] PRN Reason: Protocol Stop: 03/06/18 16:31 Last Admin: 09/06/17 08:19 Dose: Not Given Levothyroxine Sodium (Synthroid) 300 mcg PO DAILY@0630 [facility] Stop: 03/07/18 08:18 Last Admin: 09/06/17 08:25 Dose: 300 mcg Lisinopril (Zestril) 5 mg PO BID [facility] PRN Reason: Protocol Stop: 03/06/18 15:07 Last Admin: 09/06/17 08:19 Dose: 5 mg Metoprolol Tartrate (Lopressor) 25 mg PO BID [facility] Stop: 03/06/18 15:08 Last Admin: 09/06/17 08:20 Dose: 25 mg Morphine Sulfate (Morphine Sulfate) 2 mg IVP Q4HR PRN PRN Reason: Chest Pain Stop: 03/06/18 15:10 Naloxone HCl (Narcan) 0.4 mg IVP Q2MIN PRN PRN Reason: Opioid Reversal Stop: 03/06/18 17:30 Nitroglycerin (Nitroglycerin) 0.4 mg SL Q5MIN PRN PRN Reason: Chest Pain Stop: 03/06/18 15:06 Omeprazole (Prilosec) 20 mg PO QAM [facility] PRN Reason: Protocol Stop: 03/06/18 15:16 Last Admin: 09/06/17 08:19 Dose: 20 mg Promethazine HCl (Phenergan) 25 mg PO Q6HR PRN PRN Reason: Vomiting Stop: 03/06/18 15:06 Last Admin: 09/05/17 17:26 Dose: 25 mg Ranolazine (Ranexa) 500 mg PO BID [facility] Stop: 03/06/18 21:01 Last Admin: 09/06/17 08:19 Dose: 500 mg [facility]ertraline [facility] ([facility]oloft) [facility] Stop: 03/06/18 15:16 Last Admin: 09/06/17 08:19 Dose: 100 mg Tamsulosin HCl (Flomax) [facility] PR[facility] Reason: Protocol Stop: 03/06/18 15:16 Last Admin: 09/06/17 08:20 Dose: 0.4 mg Topiramate (Topamax) [address] [facility] Stop: 03/06/18 21:01 Last Admin: 09/05/17 21:34 Dose: 50 mg Trazodone HCl (Trazodone) [address] [facility] Stop: 03/06/18 21:01 Last Admin: 09/05/17 21:34 Dose: 50 mg Laboratory Tests 09/05/17 09/06/17 09/06/17 05:12 03:43 03:43 Hgb 11.9 L INR 4.1 Creatinine 1.04 09/06/17 03:43 Hgb INR Creatinine 1.44 H - Imaging and Cardiology Chest Xray: report reviewed Stress Test: report reviewed Echo: report reviewed - EKG Interpretation EKG results cardiology: other (Telemetry reviewed with average HR previous 12 hours noted to be 56, atrial fibrillation. PVCs noted.) - VTE Reasons for not Prescribing Prophylaxis: Not indicated-Anticoagulated or INR therapeutic Consult Discharge Plan - Plan Referrals: Rd Mendoza MD [Primary Care Provider] -
[2017-09-06] MEDS ORDERED: Ampicillin 2 GM in 0.9 % Sodium Chloride Mini Bag 100 ML IVPB SCH (18:00)
[2017-09-06] MEDS: Ampicillin 2 GM in 0.9 % Sodium Chloride 150 ML IVPB SCH (19:42)
[2017-09-06] MEDS: Topiramate 25 MG TABLET PO SCH (20:45)
[2017-09-06] MEDS: traZODone 50 MG TABLET PO SCH (20:45)
[2017-09-06] MEDS: Gabapentin 100 MG CAPSULE PO SCH (20:45)
--- NOTE | 2017-09-06 22:18 | Internal Med Progress Note ---
Date of Encounter: 09/06/17 Time of Encounter: 11:16 - Assessment and plan (1) Chest pain Current Visit: Yes Status: Acute Assessment and plan: Cardiology following, recs appreciated. LHC when INR normal. Continue to hold coumadin. Qualifiers: Chest pain type: unspecified Qualified Code(s): R07.9 - Chest pain, unspecified (2) JAKE (acute kidney injury) Current Visit: No Status: Acute Assessment and plan: Unsure etiology currently, no current nephrotoxic medications administered. Appetite has been poor, not eating most of meals. Could be brief episode of hypoperfusion as he did have lower than usual BP overnight. Renal function needs resolved incase of contrast administration. Recently found to have Enterococcus grown in urine, unsure if uropathy related. Encourage PO intake, Recheck renal function, give IVF if needed, renal ultrasound. If SBP <100, hold Norvasc. Agree with Nephrology consult if worsens. (3) Urinary tract infection due to Enterococcus Current Visit: Yes Status: Acute Assessment and plan: Will start patient on Ampicillin and await sensitivities. (4) Atrial fibrillation with RVR Current Visit: Yes Status: Acute Assessment and plan: Rate controlled. Anticoagulation held for possible LHC (5) CAD (coronary artery disease) Current Visit: No Status: Chronic Qualifiers: Coronary Disease-Associated Artery/Lesion type: unspecified vessel or lesion type [place] vs. transplanted heart: [place] heart Associated angina: with unspecified angina Qualified Code(s): I25.119 - Atherosclerotic heart disease of [place] coronary artery with unspecified angina pectoris (6) Diabetes Current Visit: Yes Status: Chronic Qualifiers: Diabetes mellitus type: type 2 Diabetes mellitus complication status: without complication Diabetes mellitus intermodal dispatcher insulin use: with skilled nursing use Qualified Code(s): E11.9 - Type 2 diabetes mellitus without complications ; Z79.4 - senior living (current) use of insulin; Z79.4 - senior living (current) use of insulin; 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 Qualifiers: Hypertension type: essential hypertension Qualified Code(s): I10 - Essential (primary) hypertension (10) Chronic anemia Current Visit: No Status: Chronic - Subjective Interval history: No acute events. - Constitutional Vitals: Temp Pulse Resp BP Pulse Ox 98.7 F 57 16 108/60 94 09/06/17 19:49 09/06/17 19:49 09/06/17 19:49 09/06/17 19:49 09/06/17 19:49 General appearance: Present: cooperative, A&O X 3, pleasant, no acute distress Exam: - Head Head exam: Present: atraumatic, normocephalic - Neck Neck exam general surgery: Present: supple, trachea midline. Absent: lymphadenopathy - Respiratory Respiratory exam: Present: decreased breath sounds, CTAB, tachypnea - Cardiovascular Cardiovascular exam: Present: irregular rhythm, tachycardia. Absent: diastolic murmur, systolic murmur - GI/Abdominal GI/Abdominal exam: Present: normal bowel sounds, soft, no peritoneal signs. Absent: distended, tenderness - Extremities Exam Extremities exam: Present: warm, radial pulses palpable and symmetrical. Absent : calf tenderness, cyanotic, pedal edema - Neurological Exam Neurological exam: Present: alert, oriented X3 - Skin Skin exam: Present: dry, intact Internal Medicine: Result - Labs CBC & Chem 7: 09/06/17 03:43 09/06/17 03:43 Labs: Short CBC 09/06/17 Range/Units 03:43 WBC 6.4 (4.3-11.1) K/mcL Hgb 11.9 L (12.9-16.9) g/dL Hct 38.4 (37.5-50.1) % Plt Count 144 (140-400) K/mcL Neutrophils # 3.7 (1.6-8.9) K/mcL BMP 09/06/17 03:43 Sodium 138 Potassium 4.1 Chloride 109 Carbon Dioxide 20 BUN 40 H D Creatinine 1.44 H Glucose 70 Calcium 9.1 - ABG Interpretation ABG results: PT/INR, D-dimer PT 46.0 Seconds (9.4-12.1) H* 09/06/17 03:43 - VTE Reasons for not Prescribing Prophylaxis: Not indicated-Anticoagulated or INR therapeutic Consult Discharge Plan - Plan Referrals: Reji,Rd D, MD [Primary Care Provider] -
[2017-09-07] MEDS: Ampicillin 2 GM in 0.9 % Sodium Chloride 150 ML IVPB SCH ×4 (02:53→17:47)
[2017-09-07 03:53] LABS: Basophils % 0.7 %; Eosinophils # 0.6 K/mcL (0.0-0.6); Hematocrit 36.2 % (37.5-50.1); Hemoglobin 11.5 g/dL (12.9-16.9); Immature Granulocytes % 0.2 % (0-4); Lymphocytes # 1.1 K/mcL (0.6-4.6); Lymphocytes % 20.1 %; Mean Corpuscular HGB Conc 31.8 g/dL (31.6-35.5); Mean Corpuscular Hemoglobin 28.5 pg (28.0-33.3); Mean Corpuscular Volume 89.6 fL (83.0-100.0); Mean Platelet Volume 10.4 fL (9.4-12.4); Monocytes # 0.6 K/mcL (0.0-1.3); Monocytes % 10.1 %; Neutrophils # 3.3 K/mcL (1.6-8.9); Platelet Count 153 K/mcL (140-400); Red Blood Count 4.04 M/mcL (4.19-5.50); Red Cell Distribution Width 14.7 % (11.5-14.5); Segmented Neutrophils % 57.9 %
[2017-09-07 03:59] LABS: INR 3.7; Prothrombin Time 40.6 Seconds (9.4-12.1)
[2017-09-07 04:07] LABS: Calcium 9.1 mg/dL (8.6-10.8); Potassium 4.4 mEq/L (3.5-4.5)
--- NOTE | 2017-09-07 07:28 | Event Note ---
Date of Encounter: 09/07/17 Time of Encounter: 07:27 - Cardiology Event Note PLan for LHC when able. INR 3.7 today. WIll make NPO after midnight and plan for possible LHC in am.
[2017-09-07] MEDS: BuPROPion XL (24 HR) 150 MG TABLET PO SCH (08:28)
[2017-09-07] MEDS: Insulin DETEMIR 100 UNIT/ML X5UNITS SQ SCH (08:29)
[2017-09-07] MEDS: amLODIPine 5 MG TABLET PO SCH (08:29)
[2017-09-07] MEDS: Ranolazine 500 MG TAB.ER.12H PO SCH ×2 (08:29→22:03)
[2017-09-07] MEDS: Aspirin Enteric Coated 81 MG Tablet PO SCH (08:29)
[2017-09-07] MEDS ORDERED: 0.9 % Sodium Chloride 500 ML IVC ONE (08:42)
[2017-09-07] MEDS: Insulin LISPRO 300 UNITS/3 ML VIAL SQ SCH ×4 (10:52→22:01)
[2017-09-07 14:11] LABS: BUN/Creatinine Ratio 31 (6-26); Blood Urea Nitrogen 43 mg/dL (8-26); Calcium 8.5 mg/dL (8.6-10.8); Carbon Dioxide 21 mEq/L (19-29); Chloride 110 mEq/L (98-109); Glucose 161 mg/dL (70-99); Osmolality,Calculated 302 (280-300); Potassium 4.1 mEq/L (3.5-4.5); Sodium 139 mEq/L (136-145); eGFR For African Americans > 60 (> 60); eGFR For Non-African Americans 50 (> 60)
[2017-09-07] MEDS: Topiramate 25 MG TABLET PO SCH (22:03)
[2017-09-07] MEDS: traZODone 50 MG TABLET PO SCH (22:03)
[2017-09-07] MEDS: Gabapentin 100 MG CAPSULE PO SCH (22:03)
--- NOTE | 2017-09-07 23:09 | Internal Med Progress Note ---
Date of Encounter: 09/07/17 Time of Encounter: 11:06 - Assessment and plan (1) Chest pain Current Visit: Yes Status: Acute Assessment and plan: Cardiology following, recs appreciated. LHC when INR normal. Continue to hold coumadin. Qualifiers: Chest pain type: unspecified Qualified Code(s): R07.9 - Chest pain, unspecified (2) JAKE (acute kidney injury) Current Visit: No Status: Acute Assessment and plan: Would like optimal renal function prior to left heart cath to avoid contrast nephropathy. Patient states his appetite is poor, but for several months. He is not eating most of his meals which could be contributing. Right now giving IVF and recheck BMP in afternoon. Nephrology consult (3) Urinary tract infection due to Enterococcus Current Visit: Yes Status: Acute Assessment and plan: Continue Ampicillin until sensitivities available. (4) Atrial fibrillation with RVR Current Visit: Yes Status: Acute Assessment and plan: Rate controlled. Anticoagulation held for possible LHC (5) CAD (coronary artery disease) Current Visit: No Status: Chronic Qualifiers: Coronary Disease-Associated Artery/Lesion type: unspecified vessel or lesion type [place] vs. 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 - Constitutional Vitals: Temp Pulse Resp BP Pulse Ox 97.8 F 53 17 111/55 94 09/07/17 19:33 09/07/17 19:33 09/07/17 19:33 09/07/17 19:33 09/07/17 19:33 General appearance: Present: cooperative, A&O X 3, pleasant, no acute distress Exam: - Head Head exam: Present: atraumatic, normocephalic - Neck Neck exam general surgery: Present: supple, trachea midline. Absent: lymphadenopathy - Respiratory Respiratory exam: Present: decreased breath sounds, CTAB, tachypnea - Cardiovascular Cardiovascular exam: Present: irregular rhythm, tachycardia. Absent: diastolic murmur, systolic murmur - GI/Abdominal GI/Abdominal exam: Present: normal bowel sounds, soft, no peritoneal signs. Absent: distended, tenderness - Extremities Exam Extremities exam: Present: warm, radial pulses palpable and symmetrical. Absent : calf tenderness, cyanotic, pedal edema - Neurological Exam Neurological exam: Present: alert, oriented X3 - Skin Skin exam: Present: dry, intact Internal Medicine: Result - Labs CBC & Chem 7: 09/07/17 03:27 09/07/17 13:51 Labs: Short CBC 09/07/17 Range/Units 03:27 WBC 5.7 (4.3-11.1) K/mcL Hgb 11.5 L (12.9-16.9) g/dL Hct 36.2 L (37.5-50.1) % Plt Count 153 (140-400) K/mcL Neutrophils # 3.3 (1.6-8.9) K/mcL BMP 09/07/17 09/07/17 03:27 13:51 Sodium 138 139 Potassium 4.4 4.1 Chloride 108 110 H Carbon Dioxide 23 21 BUN 49 H 43 H Creatinine 1.64 H 1.38 H Glucose 122 H 161 H Calcium 9.1 8.5 L - ABG Interpretation ABG results: PT/INR, D-dimer PT 40.6 Seconds (9.4-12.1) H 09/07/17 03:27 - VTE Reasons for not Prescribing Prophylaxis: Not indicated-Anticoagulated or INR therapeutic Consult Discharge Plan - Plan Referrals: Rd Mendoza MD [Primary Care Provider] -
[2017-09-08] MEDS: Ampicillin 2 GM in 0.9 % Sodium Chloride 150 ML IVPB SCH ×4 (00:05→18:06)
[2017-09-08 03:36] LABS: Basophils % 0.6 %; Eosinophils # 0.5 K/mcL (0.0-0.6); Eosinophils % 11.1 %; Hematocrit 33.8 % (37.5-50.1); Hemoglobin 10.5 g/dL (12.9-16.9); Immature Granulocytes % 0.2 % (0-4); Lymphocytes # 1.1 K/mcL (0.6-4.6); Lymphocytes % 23.7 %; Mean Corpuscular HGB Conc 31.1 g/dL (31.6-35.5); Mean Corpuscular Volume 90.1 fL (83.0-100.0); Mean Platelet Volume 10.8 fL (9.4-12.4); Monocytes # 0.4 K/mcL (0.0-1.3); Monocytes % 9.4 %; Neutrophils # 2.6 K/mcL (1.6-8.9); Platelet Count 130 K/mcL (140-400); Red Blood Count 3.75 M/mcL (4.19-5.50); Red Cell Distribution Width 14.7 % (11.5-14.5)
[2017-09-08 03:42] LABS: INR 2.7; Prothrombin Time 30.1 Seconds (9.4-12.1)
[2017-09-08 03:51] LABS: BUN/Creatinine Ratio 32 (6-26); Blood Urea Nitrogen 35 mg/dL (8-26); Calcium 8.3 mg/dL (8.6-10.8); Carbon Dioxide 19 mEq/L (19-29); Chloride 113 mEq/L (98-109); Glucose 77 mg/dL (70-99); Osmolality,Calculated 295 (280-300); Potassium 4.1 mEq/L (3.5-4.5); Sodium 139 mEq/L (136-145); eGFR For African Americans > 60 (> 60); eGFR For Non-African Americans > 60 (> 60)
--- NOTE | 2017-09-08 07:52 | Nephrology Consult Note ---
Date of Encounter: 09/08/17 Time of Encounter: 07:49 Assessment and Plan (1) JAKE (acute kidney injury) Current Visit: No Status: Acute Patient presents with acute kidney injury in the setting of atrial fibrillation with rapid ventricular response as well as with a history of difficulty in emptying his bladder. His renal function has improved back to baseline. He is going to undergo a cardiac catheterization once his PT/INR has decreased. From a renal perspective he should be fine undergoing a cardiac catheterization. He needs to maintain adequate hydration. We will check a bladder scan to make sure he is emptying his bladder okay. What we will also check a renal ultrasound. 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 He was noted to have a creatinine of 1.64 on admission. He denies any previous history of renal disease. Baseline serum creatinine is around 1.0. He did undergo treatment with IV fluids as well as beta blockers. His creatinine is improved down to 1.11. Patient's troponin is elevated. He is scheduled to undergo a cardiac catheterization when his PT INR decreases. Patient denies any previous history of renal disease. However he does have a history of difficulty emptying his bladder and does use intermittent self bladder catheterization at times at home. The last time he did that was approximately a week ago. He is followed by Dr. Canseco. He thinks that the reason he has difficulty emptying his bladder is because of an enlarged prostate. Currently he says he is emptying okay. He does not have a Porter catheter in place currently. Vital signs are stable. 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 The patient does have a history of atrial fibrillation. He also has a history of an abdominal aortic aneurysm repaired with an endograft. Past Med Surg Social Fam HX - Past Medical History Medical history: atrial fibrillation, cancer, coronary artery disease, CVA, diabetes, hypertension, peripheral artery disease, SVT, thyroid disease Psychiatric history: no psych history - Past Surgical History Surgical History: angioplasty/stent, appendectomy, coronary bypass (CABG), herniorrhaphy, LE vascular intervention, tracheostomy - Social History Smoking Status: Former smoker Smokeless Tobacco Status: No Alcohol use: none Drug use: none - Family History Mother Living Status: Hx Family Cancer: Yes Father Living Status: Hx Family Cancer: Yes (lung cancer) Sister Living Status: Hx Family Cancer: Yes (lung cancer) Medications and Allergies Omeprazole [PriLOSEC] 20 mg PO QAM 06/11/15 [History] Sertraline [Zoloft] 100 mg PO QAM 06/11/15 [History] Tamsulosin [Flomax] 0.4 mg PO QAM 06/11/15 [History] BuPROPion XL (24 HR) [Wellbutrin Xl] 150 mg PO QAM 07/06/15 [History] Lisinopril 5 mg PO BID 08/10/15 [History] Insulin Glargine,Hum.rec.anlog [Lantus Solostar] 20 unit SQ QAM 12/09/15 [ History] Multivitamin [Multivitamins] 1 tab PO DAILY 12/09/15 [History] traZODone [TraZODone] 50 mg PO HS 01/06/16 [History] amLODIPine [Norvasc] 5 mg PO DAILY 05/16/16 [History] Acetaminophen/Butalbital/Caffe [Fioricet] 1 each PO DAILY PRN 05/14/17 [History] Ezetimibe [Zetia] 10 mg PO DAILY 05/14/17 [History] Ferrous Sulfate [Iron] 325 mg PO DAILY 05/14/17 [History] Gabapentin [Neurontin] 100 mg PO HS 05/14/17 [History] Metformin HCl [Metformin HCl ER] 500 mg PO QPM 05/14/17 [History] Promethazine [Phenergan] 25 mg PO Q6HR PRN 05/14/17 [History] Topiramate [Topamax] 50 mg PO HS 05/14/17 [History] Warfarin [Coumadin] 10 mg PO DAILY 05/15/17 [History] Acetaminophen [Tylenol] 650 mg PO Q6HR PRN tab 05/18/17 [Rx] Aspirin Enteric Coated [Aspirin EC] 81 mg PO DAILY 08/17/17 [History] Atorvastatin Calcium [Lipitor] 80 mg PO HS 08/17/17 [History] Cyclobenzaprine HCl 5 mg PO HS PRN 08/17/17 [History] Levothyroxine Sodium [Synthroid] 300 mcg PO QAM 08/17/17 [History] Metoprolol [Lopressor] 25 mg PO BID #60 tablet 08/22/17 [Rx] Nitroglycerin 0.4 mg SL Q5MIN PRN #14 tab.subl 08/22/17 [Rx] Ranolazine [Ranexa] 500 mg PO BID #60 tab.er.12h 08/22/17 [Rx] 3 Allergy/AdvReac Type Severity Reaction Status Date / Time No Known Allergies Allergy Verified 06/24/17 21:47 Review of Systems Constitutional: as per HPI Eyes: bilateral: blurred vision (patient denies), diplopia (patient denies) Nose, mouth and throat: no dizziness, no headache(s) Cardiovascular: chest pain, chest pain at rest, dyspnea, dyspnea on exertion, irregular heart rhythm Respiratory: dyspnea, dyspnea on exertion Gastrointestinal: no abdominal pain, no change in bowel habits Genitourinary Male: as per HPI, difficulty urinating Musculoskeletal: no muscle weakness, no numbness Integumentary: no hirsutism, no striae Neurological: as per HPI Psychiatric: no depression, no difficulty concentrating Endocrine: as per HPI Exam - Vital Signs Vital signs: Initial Vital Signs Temp Pulse Resp BP Pulse Ox 98.2 F 120 18 161/91 92 09/04/17 11:29 09/04/17 11:29 09/04/17 11:29 09/04/17 11:29 09/04/17 11:29 Vital Signs - Last 8 Hours Temp Pulse Resp BP Pulse Ox 09/08/17 03:51 97.4 F L 55 18 109/65 92 Intake and Output 09/07/17 09/07/17 09/08/17 15:59 23:59 07:59 Intake Total 150 / 150 270 / 270 150 / 150 Output Total 0 / 0 0 / 0 Balance 150 / 150 270 / 270 150 / 150 Intake: IV Fluids 150 / 150 150 / 150 150 / 150 Ampicillin 2 GM In 0.9 % Sodium 150 / 150 150 / 150 150 / 150 Chloride 150 ML @ 300 mls/hr IVPB Q6HR [facility] Rx#:[id number] Oral 120 / 120 Output: Urine 0 / 0 0 / 0 Other: Meal Dinner Percent of Meal Consumed 0% Weight 84.141 kg Blood Glucose* 86 131 81 Patient Weight 09/08/17 23:59 Weight 84.141 kg - General Appearance Exam: Patient is alert and oriented. He is in no acute distress. Lungs coarse breath sounds otherwise clear. Tracheostomy is in place. Heart irregular rate and rhythm. Abdomen shows normal bowel sounds appraise masses, megaly or tenderness. There is no peripheral edema noted. Results - Lab Results 09/08/17 02:46 09/08/17 02:46 Most recent lab results Calcium 8.3 mg/dL (8.6-10.8) L 09/08/17 02:46 Magnesium 1.9 mg/dL (1.6-2.6) 09/04/17 11:50 Consult Discharge Plan - Plan Referrals: Rd Mendoza MD [Primary Care Provider] -
[2017-09-08] MEDS: Insulin LISPRO 300 UNITS/3 ML VIAL SQ SCH ×4 (08:25→20:55)
[2017-09-08] MEDS: Ranolazine 500 MG TAB.ER.12H PO SCH ×2 (08:26→20:53)
[2017-09-08] MEDS: BuPROPion XL (24 HR) 150 MG TABLET PO SCH (08:26)
[2017-09-08] MEDS: Aspirin Enteric Coated 81 MG Tablet PO SCH (08:26)
[2017-09-08] MEDS: amLODIPine 5 MG TABLET PO SCH (08:33)
--- NOTE | 2017-09-08 08:35 | Event Note ---
Date of Encounter: 09/08/17 Time of Encounter: 08:00 - Cardiology Event Note Renal function improved. INR today 2.7. Patient is ok to eat breakfast this morning. Will make NPO after breakfast. Will re-check INR at 1200. Pending INR results at 1200 possible LHC with left radial approach. Patient denies chest pain.
[2017-09-08] MEDS: Insulin DETEMIR 100 UNIT/ML X5UNITS SQ SCH (09:19)
[2017-09-08 12:46] LABS: INR 2.5; Prothrombin Time 26.9 Seconds (9.4-12.1)
[2017-09-08] MEDS ORDERED: *HR* Heparin 10,000 UNIT/10 ML VIAL ONE (14:30)
[2017-09-08] MEDS ORDERED: 0.9 % Sodium Chloride 1,000 ML ONE ×2 (14:30→15:22)
[2017-09-08] MEDS ORDERED: Heparin 1,000 UNITS/500 mL NS 500 ML ONE (14:30)
[2017-09-08] MEDS ORDERED: Verapamil 5 MG/2 ML VIAL ONE (14:30)
--- NOTE | 2017-09-08 14:32 | Event Note ---
Date of Encounter: 09/08/17 Time of Encounter: 14:30 - Cardiology Event Note Repeat INR resulted at 2.5. Discussed INR results with , states ok to proceed with LHC. PLan for left radial approach. Risks versus benefits of LHC explained to patient. Patient states understanding and agreeable to proceed. Further recommendations pending LHC.
[2017-09-08] MEDS ORDERED: Nitroglycerin 1,000 MCG/10 ML VIAL IV ONE (14:39)
[2017-09-08] MEDS ORDERED: *HR* Midazolam HCl 2 MG/2 ML VIAL ONE (15:21)
[2017-09-08] MEDS ORDERED: *HR* FentaNYL (PF) 100 MCG/2 ML VIAL ONE (15:22)
[2017-09-08] MEDS ORDERED: Tirofiban 12.5 MG/250ML 12.5 MG/250 ML BAG ONE (16:21)
--- NOTE | 2017-09-08 16:52 | Pre-Sedation Evaluation ---
Pre-sedation evaluation - Pre-sedation checklist Date of procedure: 09/08/17 Procedure: heart cath Recent Vitals: Last Vital Signs Temp 98.4 F 09/08/17 11:59 Pulse 55 09/08/17 11:59 Resp 17 09/08/17 11:59 BP 115/56 09/08/17 11:59 Pulse Ox 97 09/08/17 11:59 H&P (including ROS) documented in medical record: Yes Previous reaction to sedatives/anesthetics: No Dietary Status: NPO 6 hours prior to procedure Dentition: No loose teeth or bridges ASA Classification *see protocol: CLASS II-Mild systemic disease Plan of Care: Pt appropriate candidate for procedure/moderate/conscious sedation , Risks/benefits of procedure/sedation discussed w/ patient/family
[2017-09-08] MEDS ORDERED: Ondansetron 4 MG/2 ML VIAL IVP PRN (16:53)
[2017-09-08] MEDS ORDERED: Tirofiban 12.5 MG/250ML 12.5 MG/250 ML BAG IVC SCH (17:00)
[2017-09-08] MEDS: *HR* Warfarin 7.5 MG TABLET PO SCH (18:14)
--- NOTE | 2017-09-08 18:33 | Internal Med Progress Note ---
Date of Encounter: 09/08/17 Time of Encounter: 18:30 - Assessment and plan (1) Chest pain Current Visit: Yes Status: Acute Assessment and plan: Cardiology following, recs appreciated. Await [facility] results and Cardiology recommendations. Qualifiers: Chest pain type: unspecified Qualified Code(s): R07.9 - Chest pain, unspecified (2) JAKE (acute kidney injury) Current Visit: No Status: Resolved Assessment and plan: Was most likely from decreased PO. Improved with IVF. Nephrology consulted as patient needed heart cath. Renal function is now normal and patient undergoing heart cath today. Nephrology recommendations appreciated, renal ultrasound ordered. (3) Urinary tract infection due to Enterococcus Current Visit: Yes Status: Acute Assessment and plan: Sensitivities returned. Based on results and side effect profiles, patient will be changed to amoxicillin. (4) Atrial fibrillation with RVR Current Visit: Yes Status: Acute Assessment and plan: Rate controlled. (5) CAD (coronary artery disease) Current Visit: No Status: Chronic Qualifiers: Coronary Disease-Associated Artery/Lesion type: unspecified vessel or lesion type [place] vs. transplanted heart: [place] heart Associated angina: with unspecified angina Qualified Code(s): I25.119 - Atherosclerotic heart disease of [place] coronary artery with unspecified angina pectoris (6) Diabetes Current Visit: Yes Status: Chronic Qualifiers: Diabetes mellitus type: type 2 Diabetes mellitus complication status: without complication Diabetes mellitus snf insulin use: with extermination inspector use Qualified Code(s): E11.9 - Type 2 diabetes mellitus without complications ; Z79.4 - custodial (current) use of insulin; Z79.4 - custodial (current) use of insulin; Z79.4 - custodial (current) use of insulin; Z79.4 - custodial ( current) use of insulin (7) DVT prophylaxis Current Visit: No Status: Acute (8) Atrial fibrillation Current Visit: Yes Status: Chronic Qualifiers: Atrial fibrillation type: unspecified Qualified Code(s): I48.91 - Unspecified atrial fibrillation (9) Hypertension Current Visit: No Status: Chronic Assessment and plan: Hold Norvasc if SBP <100. Qualifiers: Hypertension type: essential hypertension Qualified Code(s): I10 - Essential (primary) hypertension (10) Chronic anemia Current Visit: No Status: Chronic - Subjective Interval history: No acute events. Patient INR 2.5 today and is okay for [facility]. - Constitutional Vitals: Temp Pulse Resp BP Pulse Ox 97.8 F 64 16 156/73 93 09/08/17 18:17 09/08/17 18:17 09/08/17 18:17 09/08/17 18:17 09/08/17 18:17 General appearance: Present: cooperative, A&O X 3, pleasant, no acute distress Exam: - Head Head exam: Present: atraumatic, normocephalic - Neck Neck exam general surgery: Present: supple, trachea midline. Absent: lymphadenopathy - Respiratory Respiratory exam: Present: decreased breath sounds, CTAB, tachypnea - Cardiovascular Cardiovascular exam: Present: irregular rhythm, tachycardia. Absent: diastolic murmur, systolic murmur - GI/Abdominal GI/Abdominal exam: Present: normal bowel sounds, soft, no peritoneal signs. Absent: distended, tenderness - Extremities Exam Extremities exam: Present: warm, radial pulses palpable and symmetrical. Absent : calf tenderness, cyanotic, pedal edema - Neurological Exam Neurological exam: Present: alert, oriented X3 - Skin Skin exam: Present: dry, intact Internal Medicine: Result - Labs CBC & Chem 7: 09/08/17 02:46 09/08/17 02:46 Labs: Short CBC 09/08/17 Range/Units 02:46 WBC 4.7 (4.3-11.1) K/mcL Hgb 10.5 L (12.9-16.9) g/dL Hct 33.8 L (37.5-50.1) % Plt Count 130 L (140-400) K/mcL Neutrophils # 2.6 (1.6-8.9) K/mcL BMP 09/08/17 02:46 Sodium 139 Potassium 4.1 Chloride 113 H Carbon Dioxide 19 BUN 35 H Creatinine 1.11 Glucose 77 Calcium 8.3 L - ABG Interpretation ABG results: PT/INR, D-dimer PT 26.9 Seconds (9.4-12.1) H 09/08/17 12:12 - VTE Reasons for not Prescribing Prophylaxis: Not indicated-Anticoagulated or INR therapeutic Consult Discharge Plan - Plan Referrals: Rd Mendoza MD [Primary Care Provider] -
[2017-09-08] MEDS ORDERED: Ampicillin 2 GM in 0.9 % Sodium Chloride 150 ML IVPB SCH (19:00)
[2017-09-08] MEDS ORDERED: *HR* Phytonadione 5 MG TABLET PO ONE (20:38)
[2017-09-08] MEDS: traZODone 50 MG TABLET PO SCH (20:53)
[2017-09-08] MEDS: Topiramate 25 MG TABLET PO SCH (20:54)
[2017-09-08] MEDS: Gabapentin 100 MG CAPSULE PO SCH (20:55)
[2017-09-08] MEDS ORDERED: 0.9 % Sodium Chloride 500 ML ONE (22:35)
[2017-09-09] MEDS ORDERED: Ampicillin 2 GM in 0.9 % Sodium Chloride Mini Bag 100 ML IVPB SCH
[2017-09-09 05:28] LABS: Basophils % 0.4 %; Eosinophils # 0.5 K/mcL (0.0-0.6); Hematocrit 31.5 % (37.5-50.1); Hemoglobin 10.1 g/dL (12.9-16.9); Immature Granulocytes % 0.2 % (0-4); Lymphocytes # 0.9 K/mcL (0.6-4.6); Lymphocytes % 17.8 %; Mean Corpuscular HGB Conc 32.1 g/dL (31.6-35.5); Mean Corpuscular Hemoglobin 28.7 pg (28.0-33.3); Mean Corpuscular Volume 89.5 fL (83.0-100.0); Mean Platelet Volume 10.2 fL (9.4-12.4); Monocytes # 0.5 K/mcL (0.0-1.3); Monocytes % 10.9 %; Platelet Count 134 K/mcL (140-400); Red Blood Count 3.52 M/mcL (4.19-5.50); Red Cell Distribution Width 14.6 % (11.5-14.5); Segmented Neutrophils % 60.7 %
[2017-09-09 05:35] LABS: Prothrombin Time 21.6 Seconds (9.4-12.1)
[2017-09-09 05:47] LABS: Alanine Aminotransferase 32 Units/L (0-55); Albumin 2.8 g/dL (3.5-5.0); Albumin/Globulin Ratio 0.9 (1.1-2.2); Alkaline Phosphatase 80 Units/L (38-126); Aspartate Amino Transferase 27 Units/L (5-34); BUN/Creatinine Ratio 25 (6-26); Bilirubin,Total 0.6 mg/dL (0.2-1.2); Blood Urea Nitrogen 25 mg/dL (8-26); Calcium 8.4 mg/dL (8.6-10.8); Carbon Dioxide 21 mEq/L (19-29); Chloride 112 mEq/L (98-109); Glucose 83 mg/dL (70-99); Osmolality,Calculated 292 (280-300); Sodium 139 mEq/L (136-145); Total Protein 5.8 g/dL (6.0-8.3); eGFR For African Americans > 60 (> 60); eGFR For Non-African Americans > 60 (> 60)
[2017-09-09] MEDS: Ampicillin 2 GM in 0.9 % Sodium Chloride 150 ML IVPB SCH ×3 (06:17→18:11)
[2017-09-09] MEDS: Insulin LISPRO 300 UNITS/3 ML VIAL SQ SCH ×4 (07:38→21:53)
--- NOTE | 2017-09-09 07:47 | Event Note ---
Date of Encounter: 09/09/17 Time of Encounter: 07:47 The patient's renal function remains normal. Renal ultrasound is not been done yet. Bladder scan showed a urine volume of 120 mL. No new recommendations at this point.
--- NOTE | 2017-09-09 08:27 | ENT - Consult Note ---
Date of Encounter: 09/09/17 Time of Encounter: 07:30 Assessment and Plan (1) Hemoptysis Current Visit: Yes Status: Acute History of Present Illness Consult date: 09/09/17 Reason for ENT Consult: other (Hemoptysis) History of present illness: White male status post heart catheter followed by bleeding was on an anticoagulant which was discontinued and overnight the bleeding has seemed to improve he was gurgling and coughing frequently but is much improved today he is not desaturating probably should obtain a current chest x-ray if this is not been done in the recent past Past Med Surg Social Fam HX - Past Medical History Medical history: atrial fibrillation, cancer, coronary artery disease, CVA, diabetes, hypertension, peripheral artery disease, SVT, thyroid disease Psychiatric history: no psych history - Past Surgical History Surgical History: angioplasty/stent, appendectomy, coronary bypass (CABG), herniorrhaphy, LE vascular intervention, tracheostomy - Social History Smoking Status: Former smoker Smokeless Tobacco Status: No Alcohol use: none Drug use: none - Family History Mother Living Status: Hx Family Cancer: Yes Father Living Status: Hx Family Cancer: Yes (lung cancer) Sister Living Status: Hx Family Cancer: Yes (lung cancer) Medications and Allergies Omeprazole [PriLOSEC] 20 mg PO QAM 06/11/15 [History] Sertraline [Zoloft] 100 mg PO QAM 06/11/15 [History] Tamsulosin [Flomax] 0.4 mg PO QAM 06/11/15 [History] BuPROPion XL (24 HR) [Wellbutrin Xl] 150 mg PO QAM 07/06/15 [History] Lisinopril 5 mg PO BID 08/10/15 [History] Insulin Glargine,Hum.rec.anlog [Lantus Solostar] 20 unit SQ QAM 12/09/15 [ History] Multivitamin [Multivitamins] 1 tab PO DAILY 12/09/15 [History] traZODone [TraZODone] 50 mg PO HS 01/06/16 [History] amLODIPine [Norvasc] 5 mg PO DAILY 05/16/16 [History] Acetaminophen/Butalbital/Caffe [Fioricet] 1 each PO DAILY PRN 05/14/17 [History] Ezetimibe [Zetia] 10 mg PO DAILY 05/14/17 [History] Ferrous Sulfate [Iron] 325 mg PO DAILY 05/14/17 [History] Gabapentin [Neurontin] 100 mg PO HS 05/14/17 [History] Metformin HCl [Metformin HCl ER] 500 mg PO QPM 05/14/17 [History] Promethazine [Phenergan] 25 mg PO Q6HR PRN 05/14/17 [History] Topiramate [Topamax] 50 mg PO HS 05/14/17 [History] Warfarin [Coumadin] 10 mg PO DAILY 05/15/17 [History] Acetaminophen [Tylenol] 650 mg PO Q6HR PRN tab 05/18/17 [Rx] Aspirin Enteric Coated [Aspirin EC] 81 mg PO DAILY 08/17/17 [History] Atorvastatin Calcium [Lipitor] 80 mg PO HS 08/17/17 [History] Cyclobenzaprine HCl 5 mg PO HS PRN 08/17/17 [History] Levothyroxine Sodium [Synthroid] 300 mcg PO QAM 08/17/17 [History] Metoprolol [Lopressor] 25 mg PO BID #60 tablet 08/22/17 [Rx] Nitroglycerin 0.4 mg SL Q5MIN PRN #14 tab.subl 08/22/17 [Rx] Ranolazine [Ranexa] 500 mg PO BID #60 tab.er.12h 08/22/17 [Rx] 3 Allergy/AdvReac Type Severity Reaction Status Date / Time No Known Allergies Allergy Verified 06/24/17 21:47 ENT Exam Initial Vital Signs Temp Pulse Resp BP Pulse Ox 98.2 F 120 18 161/91 92 09/04/17 11:29 09/04/17 11:29 09/04/17 11:29 09/04/17 11:29 09/04/17 11:29 - General physical appearance well developed, well nourished, no distress, no pain, other (Rare presence of cough every several minutes). negative: moderate distress, severe distress, moderate pain, severe pain, cachectic, obese - Eyes PERRL, normal ocular movement, icteric - ENT normal pinna, normal nares - Neck no masses, trachea midline, no lymphadectomy, other (Questionable bleeding site left lateral posterior trachea just below the stoma minimal bleeding no stoma bleeding recommending continued humidification conservative observation and reassess in a.m.). negative: deviated trachea, diffuse goiter, limited ROM - Respiratory normal expansion, normal respiratory effort - Abdomen Abdomen: soft - Integumentary no rash, no growths, no abnormal pigmentation - Neurologic CN 2-12 grossly intact, normal coordination, normal sensation - Musculoskeletal normal gait, normal posture - Psychiatric oriented to time, oriented to person, oriented to place, memory intact, other ( Patient's speech is week but he has a normal larynx and stoma occlusion allows him to speak) Exam Initial Vital Signs Temp Pulse Resp BP Pulse Ox 98.2 F 120 18 161/91 92 09/04/17 11:29 09/04/17 11:29 09/04/17 11:29 09/04/17 11:29 09/04/17 11:29 Results - Labs 09/09/17 05:10 09/09/17 05:10 Abnormal lab results RBC 3.52 M/mcL (4.19-5.50) L 09/09/17 05:10 Hgb 10.1 g/dL (12.9-16.9) L 09/09/17 05:10 Hct 31.5 % (37.5-50.1) L 09/09/17 05:10 RDW 14.6 % (11.5-14.5) H 09/09/17 05:10 Plt Count 134 K/mcL (140-400) L 09/09/17 05:10 PT 21.6 Seconds (9.4-12.1) H 09/09/17 05:10 APTT 39.6 Seconds (26.0-36.0) H 09/04/17 11:50 Chloride 112 mEq/L (98-109) H 09/09/17 05:10 POC Glucose 138 (58-89) H 09/08/17 11:19 Calcium 8.4 mg/dL (8.6-10.8) L 09/09/17 05:10 Troponin I 0.12 ng/mL (0-0.03) H* 09/04/17 23:57 Serum Total Protein 5.8 g/dL (6.0-8.3) L 09/09/17 05:10 Albumin 2.8 g/dL (3.5-5.0) L 09/09/17 05:10 Albumin/Globulin Ratio 0.9 (1.1-2.2) L 09/09/17 05:10 Urine Clarity Turbid (Clear) A 09/05/17 08:55 Ur Specific [place] 1.026 (1.010-1.025) H 09/05/17 08:55 Urine Protein 30 mg/dL (Neg-Trace) H 09/05/17 08:55 Urine Blood Trace (Negative) H 09/05/17 08:55 Ur Leukocyte Esterase Large (Negative) H 09/05/17 08:55 Urine Microscopic RBC 5-15 per hpf (0-3) H 09/05/17 08:55 Urine Microscopic WBC TNTC per hpf (0-3) H 09/05/17 08:55 Urine Bacteria Many per hpf (None-Few) H 09/05/17 08:55 Ur Culture Indicated? YES (NO) A 09/05/17 08:55 Diabetes panel 09/09/17 Range/Units 05:10 Sodium 139 (136-145) mEq/L Potassium 4.0 (3.5-4.5) mEq/L Chloride 112 H (98-109) mEq/L Carbon Dioxide 21 (19-29) mEq/L BUN 25 D (8-26) mg/dL Creatinine 1.00 (0.72-1.25) mg/dL Glucose 83 (70-99) mg/dL Calcium 8.4 L (8.6-10.8) mg/dL AST 27 (5-34) Units/L ALT 32 (0-55) Units/L Alkaline Phosphatase 80 (38-126) Units/L Albumin 2.8 L (3.5-5.0) g/dL Calcium panel 09/09/17 Range/Units 05:10 Calcium 8.4 L (8.6-10.8) mg/dL Albumin 2.8 L (3.5-5.0) g/dL Pituitary panel 09/09/17 Range/Units 05:10 Sodium 139 (136-145) mEq/L Potassium 4.0 (3.5-4.5) mEq/L Chloride 112 H (98-109) mEq/L Carbon Dioxide 21 (19-29) mEq/L BUN 25 D (8-26) mg/dL Creatinine 1.00 (0.72-1.25) mg/dL Glucose 83 (70-99) mg/dL Calcium 8.4 L (8.6-10.8) mg/dL Adrenal panel 09/09/17 Range/Units 05:10 Sodium 139 (136-145) mEq/L Potassium 4.0 (3.5-4.5) mEq/L Chloride 112 H (98-109) mEq/L Carbon Dioxide 21 (19-29) mEq/L BUN 25 D (8-26) mg/dL Creatinine 1.00 (0.72-1.25) mg/dL Glucose 83 (70-99) mg/dL Calcium 8.4 L (8.6-10.8) mg/dL Total Bilirubin 0.6 (0.2-1.2) mg/dL AST 27 (5-34) Units/L ALT 32 (0-55) Units/L Alkaline Phosphatase 80 (38-126) Units/L Albumin 2.8 L (3.5-5.0) g/dL All other labs normal. Consult Discharge Plan - Plan Referrals: Rd Mendoza MD [Primary Care Provider] -
[2017-09-09] MEDS: BuPROPion XL (24 HR) 150 MG TABLET PO SCH (08:54)
[2017-09-09] MEDS: Aspirin Enteric Coated 81 MG Tablet PO SCH (08:54)
[2017-09-09] MEDS: amLODIPine 5 MG TABLET PO SCH (08:54)
[2017-09-09] MEDS: Ranolazine 500 MG TAB.ER.12H PO SCH ×2 (08:55→21:54)
[2017-09-09] MEDS: Insulin DETEMIR 100 UNIT/ML X5UNITS SQ SCH (08:55)
[2017-09-09] MEDS: cefTRIAXone 1,000 MG in Water for inj. (sterile) 10 ML IVP SCH (10:13)
--- NOTE | 2017-09-09 10:40 | Cardiology Progress Note ---
Date of Encounter: 09/09/17 Time of Encounter: 09:00 Assessment and Plan (1) Chest pain Current Visit: Yes Status: Acute Per cardiology: -Admitted with typical chest pain symptoms. Occurs with exertion, relieved with rest and nitro. -Denies current chest pain. -ECG with no acute ischemic changes. -Troponins mildly elevated. -S/p LHC yesterday with unofficial report reviewed with MINDA placed to circumflex artery. -Left radial access site with large area of ecchymosis, no hematoma noted. Hemoglobin stable. -On asa, statin, beta freda, and plavix. -Patient educated on importance of dual anti-platelet therapy uninterrupted for at least one year. Patient states understanding. -Will continue to monitor. Qualifiers: Chest pain type: unspecified Qualified Code(s): R07.9 - Chest pain, unspecified (2) Atrial fibrillation with RVR Current Visit: Yes Status: Acute Per cardiology: -Known a.fib, a.fib, RVR on admission. -On beta freda. -Average HR previous 12 hours, 53. -On coumadin for anticoagulation. -Will continue to monitor. -[id number] score 6 (age, HTN, Vascular disease, HTN, and previous CVA). Recommend continuing anticoagulation, unless bleeding continues or hemoglobin drops significantly. (3) Elevated troponin Current Visit: Yes Status: Acute Per cardiology: -Troponin 0.03, 0.14, 0.12 in the setting of atrial fibrillation with RVR. -ADmitted with chest pain, denies current. -ECG with no acute ischemic changes. -S/p LHC yesterday with MINDA placed. -Cardiac rehab consulted. (4) CAD (coronary artery disease) Current Visit: No Status: Chronic Per cardiology: -KNown CAD with CABG 1999 and remote history of PCI. -NO previous [facility] to review at [facility]. -Patient states he does not think he has had a LHC since CABG. -ON asa, statin, beta freda, plavix. -TTE 08/18/17 with LVEF 55%, mild concentric LVH, mild diastolic dysfunction, mild MR, mild TR, all wall segments with normal motion. -! nuclear stress negative for ischemia or infarct. -S/P LHC yetserday as above. -Will continue to monitor. Qualifiers: Coronary Disease-Associated Artery/Lesion type: unspecified vessel or lesion type [place] vs. transplanted heart: [place] heart Associated angina: with unspecified angina Qualified Code(s): I25.119 - Atherosclerotic heart disease of [place] coronary artery with unspecified angina pectoris (5) JAKE (acute kidney injury) Current Visit: No Status: Resolved Per cardiology: -Creatinine today improved. -Baseline 0.9-1 -Management per primary service. -Can consider nephrology consult. (6) Hemoptysis Current Visit: Yes Status: Acute Per cardiology: -Patient with hemoptysis overnight from stoma. -Has been seen and evaluated by ENT. -No active bleeding noted from stoma at time of assessment. -Patient states bleeding has stopped. -Hemoglobin stable. -Of note, patient is currently on triple therapy with asa, plavix, and coumadin. -Will continue to monitor. -Management per primary and ENT services. Discussion w patient/family: The assessment and plan as outlined above was discussed with the patient who expressed understanding and agreement. All questions were answered. Thank you for involving us in the care of your patient. Please call with any questions. Discussed and reviewed with . Subjective Principal diagnosis: Chest pain Interval history: Patient denies chest pain. Had some bleeding from stoma last night, now improved. Denies issues using left wrist. Objective Vital Signs, Last 4 Hours Temp Pulse Resp BP Pulse Ox 09/09/17 09:00 98 09/09/17 07:15 97.5 F L 48 17 115/52 94 General: Conversant, No Apparent Distress HEENT: Atraumatic, Normocephaly, Mucus Membranes Moist Neck: No JVD, Normal carotid pulses Cardiac: Normal S1 and S2, No Murmur, Other (Irregularly irregular) Lungs: Normal Breath Sounds, No Wheeze, Rales, Rhonchi Neuro: Alert and responsive, No focal deficits noted Abdomen: Soft, Non-Tender Skin: No rashes noted on visualized skin, Other (Left radial access site with large area of ecchymosis noted. No hematoma noted. ) Musculoskeletal: No Chest Wall Tenderness Extremities: No Clubbing, No Cyanosis, No Edema, Normal Pulses Results 09/09/17 05:10 09/09/17 05:10 Lab Results Active Medications Acetaminophen (Tylenol) 650 mg PO Q6HR PRN PRN Reason: Mild Pain (1-3) Stop: 03/06/18 15:06 Acetaminophen/Butalbital/Caffeine (Fioricet) 1 each PO DAILY PRN; Protocol PRN Reason: Headache Stop: 03/06/18 15:06 Amlodipine Besylate (Norvasc) 5 mg PO DAILY ZOLTAN PRN Reason: Protocol Stop: 03/06/18 15:16 Last Admin: 09/09/17 08:54 Dose: 5 mg Aspirin (Aspirin Ec) 81 mg PO DAILY [facility] Stop: 03/07/18 09:01 Last Admin: 09/09/17 08:54 Dose: 81 mg Atorvastatin Calcium (Lipitor) 80 mg PO HS [facility] Stop: 03/06/18 21:01 Last Admin: 09/08/17 20:53 Dose: 80 mg Bupropion HCl (Wellbutrin Xl) 150 mg PO QAM [facility] Stop: 03/06/18 15:16 Last Admin: 09/09/17 08:54 Dose: 150 mg Clopidogrel Bisulfate (Plavix) 75 mg PO DAILY [facility] Stop: 03/11/18 09:01 Last Admin: 09/09/17 08:55 Dose: 75 mg Cyclobenzaprine HCl (Flexeril) 5 mg PO HS PRN PRN Reason: Muscle Spasm Dextrose/Water (Dextrose 50% (Syg)) 25 ml IVP AD PRN PRN Reason: Hypoglycemia Stop: 03/06/18 15:10 Ferrous Sulfate (Ferrous Sulfate) 325 mg PO DAILY [facility] Stop: 03/06/18 15:16 Last Admin: 09/09/17 08:54 Dose: 325 mg Gabapentin (Neurontin) 100 mg PO HS [facility] Stop: 03/06/18 21:01 Last Admin: 09/08/17 20:55 Dose: 100 mg Glucagon (Glucagen) 1 mg IM ONCE PRN PRN Reason: Hypoglycemia Stop: 03/06/18 15:10 Glucose (Gluctose) 15 gm PO ONCE PRN PRN Reason: Hypoglycemia Stop: 03/06/18 15:10 Glucose (Gluctose) 30 gm PO ONCE PRN PRN Reason: Hypoglycemia Stop: 03/06/18 15:10 Dextrose (Dextrose 5%) 1,000 mls @ 100 mls/hr IVC .Q10H PRN PRN Reason: HYPOGLYCEMIA Stop: 03/06/18 15:10 Ampicillin Sodium 2 gm/ Sodium (Chloride) 150 mls @ 300 mls/hr IVPB Q6HR [facility] Stop: 03/11/18 06:01 Last Admin: 09/09/17 06:17 Dose: 300 mls/hr Insulin Detemir (Levemir) 20 unit SQ QAM [facility] Stop: 03/07/18 09:01 Last Admin: 09/09/17 08:55 Dose: 20 unit Insulin Human Lispro (Humalog) 0 units SQ HS [facility] PRN Reason: Protocol Stop: 03/06/18 21:01 Last Admin: 09/08/17 20:55 Dose: Not Given Insulin Human Lispro (Humalog) 0 units SQ TIDAC [facility] PRN Reason: Protocol Stop: 03/06/18 16:31 Last Admin: 09/09/17 07:38 Dose: Not Given Levothyroxine Sodium (Synthroid) 300 mcg PO DAILY@0630 [facility] Stop: 03/07/18 08:18 Last Admin: 09/09/17 06:16 Dose: Not Given Lisinopril (Zestril) 5 mg PO BID [facility] PRN Reason: Protocol Stop: 03/06/18 15:07 Last Admin: 09/09/17 08:54 Dose: 5 mg Metoprolol Tartrate (Lopressor) 12.5 mg PO BID [facility] Stop: 03/10/18 09:01 Last Admin: 09/09/17 08:54 Dose: 12.5 mg Morphine Sulfate (Morphine Sulfate) 2 mg IVP Q4HR PRN PRN Reason: Chest Pain Stop: 03/06/18 15:10 Naloxone HCl (Narcan) 0.4 mg IVP Q2MIN PRN PRN Reason: Opioid Reversal Stop: 03/06/18 17:30 Nitroglycerin (Nitroglycerin) 0.4 mg SL Q5MIN PRN PRN Reason: Chest Pain Stop: 03/06/18 15:06 Omeprazole ([facility]ilosec) [facility] PRN Reason: Protocol Stop: 03/06/18 15:16 Last Admin: 09/09/17 08:54 Dose: 20 mg Ondansetron HCl (Zofran) 4 mg IVP Q6HR PRN; Protocol PRN Reason: Nausea And Vomiting Stop: 03/10/18 16:54 Promethazine HCl (Phenergan) 25 mg PO Q6HR PRN PRN Reason: Vomiting Stop: 03/06/18 15:06 Last Admin: 09/06/17 15:24 Dose: 25 mg Ranolazine (Ranexa) 500 mg PO BID [facility] Stop: 03/06/18 21:01 Last Admin: 09/09/17 08:55 Dose: 500 mg Sertraline HCl (Zoloft) 100 mg PO QAM [facility] Stop: 03/06/18 15:16 Last Admin: 09/09/17 08:54 Dose: 100 mg Tamsulosin HCl (Flomax) 0.4 [facility] [place] [facility] PRN Reason: Protocol Stop: 03/06/18 15:16 Last Admin: 09/09/17 08:54 Dose: 0.4 mg Topiramate (Topamax) 50 mg PO [facility] Stop: 03/06/18 21:01 Last Admin: 09/08/17 20:54 Dose: 50 mg Trazodone HCl (Trazodone) 50 mg PO [facility] Stop: 03/06/18 21:01 Last Admin: 09/08/17 20:53 Dose: 50 mg Warfarin Sodium (Coumadin) 7.5 mg PO DAILY@1800 [facility] Stop: 03/10/18 18:01 Last Admin: 09/08/17 18:14 Dose: 7.5 mg Laboratory Tests 09/08/17 09/09/17 09/09/17 02:46 05:10 05:10 Hgb 10.5 L 10.1 L Creatinine 1.00 - Imaging and Cardiology Chest Xray: report reviewed Echo: report reviewed Cardiac cath: report reviewed - EKG Interpretation EKG results cardiology: other (Telemetry reviewed with average HR previous 12 hours noted to be 53, atrial fibrillation with slow ventricular response. PVCs noted.) - VTE Reasons for not Prescribing Prophylaxis: Not indicated-Anticoagulated or INR therapeutic Consult Discharge Plan - Plan Referrals: Rd Mendoza MD [Primary Care Provider] -
--- NOTE | 2017-09-09 17:19 | Internal Med Progress Note ---
Date of Encounter: 09/09/17 Time of Encounter: 17:16 - Assessment and plan (1) Chest pain Current Visit: Yes Status: Acute Assessment and plan: Cardiology following, recs appreciated. Heart catheter 09/08, status post MINDA and circumflex artery. On aspirin/Plavix , beta freda, statin. Qualifiers: Chest pain type: unspecified Qualified Code(s): R07.9 - Chest pain, unspecified (2) Urinary tract infection due to Enterococcus Current Visit: Yes Status: Acute Assessment and plan: Sensitivities returned. Based on results and side effect profiles, he was changed to amoxicillin. (3) Atrial fibrillation with RVR Current Visit: Yes Status: Acute Assessment and plan: Rate controlled. Mid and held for now because had brief episode of acute bleed is now resolved (4) CAD (coronary artery disease) Current Visit: No Status: Chronic Qualifiers: Coronary Disease-Associated Artery/Lesion type: unspecified vessel or lesion type [place] vs. transplanted heart: [place] heart Associated angina: with unspecified angina Qualified Code(s): I25.119 - Atherosclerotic heart disease of [place] coronary artery with unspecified angina pectoris (5) Diabetes Current Visit: Yes Status: Chronic Qualifiers: Diabetes mellitus type: type 2 Diabetes mellitus complication status: without complication Diabetes mellitus alf insulin use: with general expeditor use Qualified Code(s): E11.9 - Type 2 diabetes mellitus without complications ; Z79.4 - intermediate (current) use of insulin; Z79.4 - intermediate (current) use of insulin; Z79.4 - intermediate (current) use of insulin; Z79.4 - intermediate ( current) use of insulin (6) DVT prophylaxis Current Visit: No Status: Acute (7) Atrial fibrillation Current Visit: Yes Status: Chronic Qualifiers: Atrial fibrillation type: unspecified Qualified Code(s): I48.91 - Unspecified atrial fibrillation (8) Hypertension Current Visit: No Status: Chronic Qualifiers: Hypertension type: essential hypertension Qualified Code(s): I10 - Essential (primary) hypertension (9) Chronic anemia Current Visit: No Status: Chronic - Subjective Interval history: [facility] 09/08, overnight had brief acute episode of bleeding was noticed at stoma site. It caused him cough frequently but did resolve, and patient was hemodynamically stable without any desaturations. - Constitutional Vitals: Temp Pulse Resp BP Pulse Ox 97.8 F 51 17 120/55 94 09/09/17 16:18 09/09/17 16:18 09/09/17 16:18 09/09/17 16:18 09/09/17 16:18 General appearance: Present: cooperative, A&O X 3, pleasant, no acute distress Exam: General: Conversant, No Apparent Distress HEENT: Atraumatic, Normocephaly, Mucus Membranes Moist Neck: No JVD, Normal carotid pulses, stoma site no active bleeding Cardiac: Normal S1 and S2, No Murmur, Other (Irregularly irregular) Lungs: Normal Breath Sounds, No Wheeze, Rales, Rhonchi Neuro: Alert and responsive, No focal deficits noted Abdomen: Soft, Non-Tender Skin: No rashes Extremities: No Clubbing, No Cyanosis, No Edema Internal Medicine: Result - Labs CBC & Chem 7: 09/09/17 05:10 09/09/17 05:10 Labs: Short CBC 09/09/17 Range/Units 05:10 WBC 4.9 (4.3-11.1) K/mcL Hgb 10.1 L (12.9-16.9) g/dL Hct 31.5 L (37.5-50.1) % Plt Count 134 L (140-400) K/mcL Neutrophils # 3.0 (1.6-8.9) K/mcL BMP 09/09/17 05:10 Sodium 139 Potassium 4.0 Chloride 112 H Carbon Dioxide 21 BUN 25 D Creatinine 1.00 Glucose 83 Calcium 8.4 L Liver Function 09/09/17 Range/Units 05:10 Total Bilirubin 0.6 (0.2-1.2) mg/dL AST 27 (5-34) Units/L ALT 32 (0-55) Units/L Alkaline Phosphatase 80 (38-126) Units/L Albumin 2.8 L (3.5-5.0) g/dL - ABG Interpretation ABG results: PT/INR, D-dimer PT 21.6 Seconds (9.4-12.1) H 09/09/17 05:10 - Impressions Impressions Retroperitoneum Ultrasound 09/09/17 07:00 IMPRESSION: Unremarkable ultrasound of the kidneys. Significant postvoid residual measuring approximately 309 mL. Previously identified asymmetric right bladder wall thickening is not well appreciated on this examination. Further evaluation is still recommended if this has not already been performed. D/ / 09/09/2017 12:49:08 Arnaldo Tafoya MD / Ida Gonzales Interpreting Provider: Arnaldo Tafoya MD - VTE Reasons for not Prescribing Prophylaxis: Not indicated-Anticoagulated or INR therapeutic Consult Discharge Plan - Plan Referrals: Rd Mendoza MD [Primary Care Provider] -
[2017-09-09] MEDS: Topiramate 25 MG TABLET PO SCH (21:54)
[2017-09-09] MEDS: traZODone 50 MG TABLET PO SCH (21:54)
[2017-09-09] MEDS: Gabapentin 100 MG CAPSULE PO SCH (21:55)
[2017-09-10] MEDS: Ampicillin 2 GM in 0.9 % Sodium Chloride 150 ML IVPB SCH ×5 (00:11→23:56)
[2017-09-10 07:06] LABS: Basophils % 0.4 %; Eosinophils # 0.4 K/mcL (0.0-0.6); Eosinophils % 8.1 %; Hematocrit 31.4 % (37.5-50.1); Immature Granulocytes % 0.4 % (0-4); Lymphocytes # 0.9 K/mcL (0.6-4.6); Lymphocytes % 16.2 %; Mean Corpuscular HGB Conc 31.8 g/dL (31.6-35.5); Mean Corpuscular Hemoglobin 28.2 pg (28.0-33.3); Mean Corpuscular Volume 88.7 fL (83.0-100.0); Mean Platelet Volume 10.4 fL (9.4-12.4); Monocytes # 0.6 K/mcL (0.0-1.3); Monocytes % 10.4 %; Neutrophils # 3.4 K/mcL (1.6-8.9); Platelet Count 134 K/mcL (140-400); Red Blood Count 3.54 M/mcL (4.19-5.50); Red Cell Distribution Width 14.5 % (11.5-14.5); Segmented Neutrophils % 64.5 %
[2017-09-10 07:18] LABS: BUN/Creatinine Ratio 21 (6-26); Blood Urea Nitrogen 21 mg/dL (8-26); Calcium 8.3 mg/dL (8.6-10.8); Carbon Dioxide 19 mEq/L (19-29); Chloride 112 mEq/L (98-109); Glucose 72 mg/dL (70-99); Osmolality,Calculated 290 (280-300); Potassium 3.8 mEq/L (3.5-4.5); Sodium 139 mEq/L (136-145); eGFR For African Americans > 60 (> 60); eGFR For Non-African Americans > 60 (> 60)
--- NOTE | 2017-09-10 07:41 | Event Note ---
Date of Encounter: 09/10/17 Time of Encounter: 07:40 The patient's renal function remains normal following cardiac catheterization. Renal ultrasound shows a postvoid residual of 309 mL. Patient should have a follow-up with urology. He is an established patient. Nephrology will sign off. Please call again if needed.
[2017-09-10] MEDS: Ranolazine 500 MG TAB.ER.12H PO SCH ×2 (07:46→21:33)
[2017-09-10] MEDS: Insulin LISPRO 300 UNITS/3 ML VIAL SQ SCH ×4 (07:46→21:32)
[2017-09-10] MEDS: Aspirin Enteric Coated 81 MG Tablet PO SCH (07:46)
[2017-09-10] MEDS: BuPROPion XL (24 HR) 150 MG TABLET PO SCH (07:47)
[2017-09-10] MEDS: amLODIPine 5 MG TABLET PO SCH (07:47)
[2017-09-10] MEDS: Insulin DETEMIR 100 UNIT/ML X5UNITS SQ SCH (08:17)
--- NOTE | 2017-09-10 09:05 | ENT - Progress Note ---
Date of Encounter: 09/10/17 Time of Encounter: 08:45 - Assessment and Plan (1) Hemoptysis Current Visit: Yes Status: Acute White male followed up for hemoptysis markedly improved since yesterday small area posterior wall was cauterized with silver nitrate recommending continued use of emitted E [place] in the hospital and if bleeding continues should follow -up in ENT office for reevaluation of the trachea but I suspect that this will basically resolve within the next 24 hours Subjective Patient reports: no new complaints, other (90% improvement in coughing up blood and bleeding from the trachea) Objective Initial Vital Signs Temp Pulse Resp BP Pulse Ox 98.2 F 120 18 161/91 92 09/04/17 11:29 09/04/17 11:29 09/04/17 11:29 09/04/17 11:29 09/04/17 11:29 - General physical appearance well developed, well nourished - Eyes PERRL, normal ocular movement - ENT normal pinna, normal nares - Neck no masses, other (Patient has a trachea stoma with some blood and clots around them less than yesterday the bleeding site is apparently from the right posterior mucosa today this was cauterized patient is markedly less problematic than yesterday regarding the amount of bleeding from his tracheostomy I think this problem will basically resolve in the next 24 hours) - Respiratory normal expansion, normal respiratory effort - Abdomen soft, non tender - Integumentary no rash - Neurologic CN 2-12 grossly intact - Psychiatric oriented to time, oriented to person, oriented to place, memory intact - Labs 09/10/17 06:43 09/10/17 06:43 Diabetes panel 09/10/17 Range/Units 06:43 Sodium 139 (136-145) mEq/L Potassium 3.8 (3.5-4.5) mEq/L Chloride 112 H (98-109) mEq/L Carbon Dioxide 19 (19-29) mEq/L BUN 21 (8-26) mg/dL Creatinine 0.99 (0.72-1.25) mg/dL Glucose 72 (70-99) mg/dL Calcium 8.3 L (8.6-10.8) mg/dL Calcium panel 09/10/17 Range/Units 06:43 Calcium 8.3 L (8.6-10.8) mg/dL Pituitary panel 09/10/17 Range/Units 06:43 Sodium 139 (136-145) mEq/L Potassium 3.8 (3.5-4.5) mEq/L Chloride 112 H (98-109) mEq/L Carbon Dioxide 19 (19-29) mEq/L BUN 21 (8-26) mg/dL Creatinine 0.99 (0.72-1.25) mg/dL Glucose 72 (70-99) mg/dL Calcium 8.3 L (8.6-10.8) mg/dL Adrenal panel 09/10/17 Range/Units 06:43 Sodium 139 (136-145) mEq/L Potassium 3.8 (3.5-4.5) mEq/L Chloride 112 H (98-109) mEq/L Carbon Dioxide 19 (19-29) mEq/L BUN 21 (8-26) mg/dL Creatinine 0.99 (0.72-1.25) mg/dL Glucose 72 (70-99) mg/dL Calcium 8.3 L (8.6-10.8) mg/dL - VTE Reasons for not Prescribing Prophylaxis: Not indicated-Anticoagulated or INR therapeutic Consult Discharge Plan - Plan Referrals: Rd Mendoza MD [Primary Care Provider] -
--- NOTE | 2017-09-10 09:48 | Cardiology Progress Note ---
Date of Encounter: 09/10/17 Time of Encounter: 08:00 Assessment and Plan (1) Chest pain Current Visit: Yes Status: Acute Per cardiology: -Denies current chest pain. -S/p [facility] Monday with unofficial report reviewed with MINDA placed to circumflex artery. -Left radial access site with large area of ecchymosis, no hematoma noted. Hemoglobin stable. -Left radial access site management education reviewed with patient. -On asa, statin, beta freda, and plavix. -Recommend continnuing dual anti-platelet therapy uniterrupted for at least one month. Can consider discontinuation of ASA after 30 days due to need for coumadin for atrial fibrillation. -Cardiology will sign off and will follow in outpatient setting. Follow up set. Qualifiers: Chest pain type: unspecified Qualified Code(s): R07.9 - Chest pain, unspecified (2) Atrial fibrillation with RVR Current Visit: Yes Status: Acute Per cardiology: -Known a.fib, a.fib, RVR on admission. -On beta freda. -Average HR previous 12 hours, 54. -On coumadin for anticoagulation. -[id number] score 6 (age, HTN, Vascular disease, HTN, and previous CVA). Recommend continuing anticoagulation, unless bleeding continues or hemoglobin drops significantly. -Recommend patient follow up with anticoagulation clinic once discharged. (3) Elevated troponin Current Visit: Yes Status: Acute Per cardiology: -Troponin 0.03, 0.14, 0.12 in the setting of atrial fibrillation with RVR. -ADmitted with chest pain, denies current. -S/p [facility] Monday with MINDA placed. -Cardiac rehab consulted. (4) CAD (coronary artery disease) Current Visit: No Status: Chronic Per cardiology: -KNown CAD with CABG 1999 and remote history of PCI. -ON asa, statin, beta freda, plavix. -TTE 08/18/17 with LVEF 55%, mild concentric LVH, mild diastolic dysfunction, mild MR, mild TR, all wall segments with normal motion. -! nuclear stress negative for ischemia or infarct. -S/P [facility] Monday as above. -Will continue to monitor in outpatient setting. Qualifiers: Coronary Disease-Associated Artery/Lesion type: unspecified vessel or lesion type [place] vs. transplanted heart: [place] heart Associated angina: with unspecified angina Qualified Code(s): I25.119 - Atherosclerotic heart disease of [place] coronary artery with unspecified angina pectoris (5) JAKE (acute kidney injury) Current Visit: No Status: Resolved Per cardiology: -Creatinine today improved. -Baseline 0.9-1 -Management per primary service. (6) Hemoptysis Current Visit: Yes Status: Acute Per cardiology: -Patient with hemoptysis overnight from stoma. -Has been seen and evaluated by ENT, silver nitrate used this morning. -No active bleeding noted from stoma at time of assessment. -Patient states bleeding has stopped. -Hemoglobin stable. -Of note, patient is currently on triple therapy with asa, plavix, and coumadin. -Will continue to monitor in outpatient setting. -Management per primary and ENT services. Discussion w patient/family: The assessment and plan as outlined above was discussed with the patient who expressed understanding and agreement. All questions were answered. Thank you for involving us in the care of your patient. Please call with any questions. Discussed and reviewed with . Subjective Principal diagnosis: Chest pain Interval history: Patient denies chest pain. Had some bleeding from stoma last night, now improved. Denies issues using left wrist. Patient states he feels well this morning. Objective Vital Signs, Last 4 Hours Temp Pulse Resp BP Pulse Ox 09/10/17 07:52 94 09/10/17 07:29 98.3 F 56 19 149/46 90 General: Conversant, No Apparent Distress HEENT: Atraumatic, Normocephaly, Mucus Membranes Moist Neck: No JVD, Normal carotid pulses Cardiac: Normal S1 and S2, No Murmur, Other (Irregularly irregular) Lungs: Normal Breath Sounds, No Wheeze, Rales, Rhonchi Neuro: Alert and responsive, No focal deficits noted Abdomen: Soft, Non-Tender Skin: No rashes noted on visualized skin, Other (Left wrist with ecchymosis, no hematoma noted. ) Musculoskeletal: No Chest Wall Tenderness Extremities: No Clubbing, No Cyanosis, No Edema, Normal Pulses Results 09/10/17 06:43 09/10/17 06:43 Lab Results Impressions Retroperitoneum Ultrasound 09/09/17 07:00 IMPRESSION: Unremarkable ultrasound of the kidneys. Significant postvoid residual measuring approximately 309 mL. Previously identified asymmetric right bladder wall thickening is not well appreciated on this examination. Further evaluation is still recommended if this has not already been performed. D/ / 09/09/2017 12:49:08 Arnaldo Tafoya MD / Ida Gonzales Interpreting Provider: Arnaldo Tafoya MD Active Medications Acetaminophen (Tylenol) 650 mg PO Q6HR PRN PRN Reason: Mild Pain (1-3) Stop: 03/06/18 15:06 Acetaminophen/Butalbital/Caffeine (Fioricet) 1 each PO DAILY PRN; Protocol PRN Reason: Headache Stop: 03/06/18 15:06 Amlodipine Besylate (Norvasc) 5 mg PO DAILY [facility]OLTAN PRN Reason: Protocol Stop: 03/06/18 15:16 Last Admin: 09/10/17 07:47 Dose: 5 mg Aspirin (Aspirin Ec) 81 mg PO DAILY [facility] Stop: 03/07/18 09:01 Last Admin: 09/10/17 07:46 Dose: 81 mg Atorvastatin Calcium (Lipitor) 80 mg PO HS [facility] Stop: 03/06/18 21:01 Last Admin: 09/09/17 21:54 Dose: 80 mg Bupropion HCl (Wellbutrin Xl) 150 mg PO QAM [facility] Stop: 03/06/18 15:16 Last Admin: 09/10/17 07:47 Dose: 150 mg Clopidogrel Bisulfate (Plavix) 75 mg PO DAILY [facility] Stop: 03/11/18 09:01 Last Admin: 09/10/17 07:47 Dose: 75 mg Cyclobenzaprine HCl (Flexeril) 5 mg PO HS PRN PRN Reason: Muscle Spasm Dextrose/Water (Dextrose 50% (Syg)) 25 ml IVP AD PRN PRN Reason: Hypoglycemia Stop: 03/06/18 15:10 Ferrous Sulfate (Ferrous Sulfate) 325 mg PO DAILY [facility] Stop: 03/06/18 15:16 Last Admin: 09/10/17 07:47 Dose: 325 mg Gabapentin (Neurontin) 100 mg PO HS [facility] Stop: 03/06/18 21:01 Last Admin: 09/09/17 21:55 Dose: 100 mg Glucagon (Glucagen) 1 mg IM ONCE PRN PRN Reason: Hypoglycemia Stop: 03/06/18 15:10 Glucose (Gluctose) 15 gm PO ONCE PRN PRN Reason: Hypoglycemia Stop: 03/06/18 15:10 Glucose (Gluctose) 30 gm PO ONCE PRN PRN Reason: Hypoglycemia Stop: 03/06/18 15:10 Dextrose (Dextrose 5%) 1,000 mls @ 100 mls/hr IVC .Q10H PRN PRN Reason: HYPOGLYCEMIA Stop: 03/06/18 15:10 Ampicillin Sodium 2 gm/ Sodium (Chloride) 150 mls @ 300 mls/hr IVPB Q6HR [facility] Stop: 03/11/18 06:01 Last Admin: 09/10/17 06:01 Dose: 300 mls/hr Insulin Detemir (Levemir) 20 unit SQ QAM [facility] Stop: 03/07/18 09:01 Last Admin: 09/10/17 08:17 Dose: 20 unit Insulin Human Lispro (Humalog) 0 units SQ HS [facility] PRN Reason: Protocol Stop: 03/06/18 21:01 Last Admin: 09/09/17 21:53 Dose: Not Given Insulin Human Lispro (Humalog) 0 units SQ TIDAC [facility] PRN Reason: Protocol Stop: 03/06/18 16:31 Last Admin: 09/10/17 07:46 Dose: Not Given Levothyroxine Sodium (Synthroid) 300 mcg PO DAILY@0630 [facility] Stop: 03/07/18 08:18 Last Admin: 09/10/17 06:01 Dose: 300 mcg Lisinopril (Zestril) 5 mg PO BID [facility] PRN Reason: Protocol Stop: 03/06/18 15:07 Last Admin: 09/10/17 07:47 Dose: 5 mg Metoprolol Tartrate (Lopressor) 12.5 mg PO BID [facility] Stop: 03/10/18 09:01 Last Admin: 09/10/17 07:46 Dose: 12.5 mg Morphine Sulfate (Morphine Sulfate) 2 mg IVP Q4HR PRN PRN Reason: Chest Pain Stop: 03/06/18 15:10 Naloxone HCl (Narcan) 0.4 mg IVP Q2MIN PRN PRN Reason: Opioid Reversal Stop: 03/06/18 17:30 Nitroglycerin (Nitroglycerin) 0.4 mg SL Q5MIN PRN PRN Reason: Chest Pain Stop: 03/06/18 15:06 Omeprazole (Prilosec) 20 mg PO QAM [facility] PRN Reason: Protocol Stop: 03/06/18 15:16 Last Admin: 09/10/17 07:46 Dose: 20 mg Ondansetron HCl (Zofran) 4 mg IVP Q6HR PRN; Protocol PRN Reason: Nausea And Vomiting Stop: 03/10/18 16:54 Promethazine HCl (Phenergan) 25 mg PO Q6HR PRN PRN Reason: Vomiting Stop: 03/06/18 15:06 Last Admin: 09/06/17 15:24 Dose: 25 mg Ranolazine (Ranexa) 500 mg PO BID [facility] Stop: 03/06/18 21:01 Last Admin: 09/10/17 07:46 Dose: 500 mg Sertraline HCl (Zoloft) 100 mg PO QAM [facility] Stop: 03/06/18 15:16 Last Admin: 09/10/17 07:47 Dose: 100 mg Tamsulosin HCl (Flomax) 0.4 mg PO QAM [facility] PRN Reason: Protocol Stop: 03/06/18 15:16 Last Admin: 09/10/17 07:46 Dose: 0.4 mg Topiramate (Topamax) 50 mg PO HS [facility] Stop: 03/06/18 21:01 Last Admin: 09/09/17 21:54 Dose: 50 mg Trazodone HCl (Trazodone) 50 mg PO HS [facility] Stop: 03/06/18 21:01 Last Admin: 09/09/17 21:54 Dose: 50 mg Warfarin Sodium (Coumadin) 7.5 mg PO DAILY@1800 [facility] Stop: 03/10/18 18:01 Last Admin: 09/08/17 18:14 Dose: 7.5 mg - Imaging and Cardiology Chest Xray: report reviewed Echo: report reviewed Cardiac cath: report reviewed - EKG Interpretation EKG results cardiology: other (Telemetry reviewed with average HR previous 12 hours noted to be 54, atrial fibrillation. PVCs noted.) - VTE Reasons for not Prescribing Prophylaxis: Not indicated-Anticoagulated or INR therapeutic Consult Discharge Plan - Plan Referrals: Rd Mendoza MD [Primary Care Provider] -
--- NOTE | 2017-09-10 18:08 | Internal Med Progress Note ---
Date of Encounter: 09/10/17 Time of Encounter: 18:11 - Assessment and plan (1) Chest pain Current Visit: Yes Status: Acute Assessment and plan: Cardiology following, recs appreciated. Heart catheter 09/08, status post MINDA and circumflex artery. On aspirin/Plavix , beta freda, statin. Qualifiers: Chest pain type: unspecified Qualified Code(s): R07.9 - Chest pain, unspecified (2) Urinary tract infection due to Enterococcus Current Visit: Yes Status: Acute Assessment and plan: Sensitivities returned. Based on results and side effect profiles, he was changed to amoxicillin. (3) Atrial fibrillation with RVR Current Visit: Yes Status: Acute Assessment and plan: Rate controlled. Mid and held for now because had brief episode of acute bleed is now resolved. Okay to restart coumadin today. (4) CAD (coronary artery disease) Current Visit: No Status: Chronic Qualifiers: Coronary Disease-Associated Artery/Lesion type: unspecified vessel or lesion type [place] vs. transplanted heart: [place] heart Associated angina: with unspecified angina Qualified Code(s): I25.119 - Atherosclerotic heart disease of [place] coronary artery with unspecified angina pectoris (5) Diabetes Current Visit: Yes Status: Chronic Qualifiers: Diabetes mellitus type: type 2 Diabetes mellitus complication status: without complication Diabetes mellitus sales and in home delivery specialist insulin use: with sales and in home delivery specialist use Qualified Code(s): E11.9 - Type 2 diabetes mellitus without complications ; Z79.4 - MCFP (current) use of insulin; Z79.4 - die developer (current) use of insulin; Z79.4 - die developer (current) use of insulin; Z79.4 - [facility]FP ( current) use of insulin (6) DVT prophylaxis Current Visit: No Status: Acute (7) Atrial fibrillation Current Visit: Yes Status: Chronic Qualifiers: Atrial fibrillation type: unspecified Qualified Code(s): I48.91 - Unspecified atrial fibrillation (8) Hypertension Current Visit: No Status: Chronic Assessment and plan: Hold Norvasc if SBP <100. Qualifiers: Hypertension type: essential hypertension Qualified Code(s): I10 - Essential (primary) hypertension (9) Chronic anemia Current Visit: No Status: Chronic - Subjective Interval history: Patient had chemical cautery. done at bleeding site. Tolerated well without complaints. - Constitutional Vitals: Temp Pulse Resp BP Pulse Ox 98.1 F 50 18 152/55 95 09/10/17 15:33 09/10/17 15:33 09/10/17 15:33 09/10/17 15:33 09/10/17 15:33 General appearance: Present: cooperative, A&O X 3, pleasant, no acute distress Exam: General: Conversant, No Apparent Distress HEENT: Atraumatic, Normocephaly, Mucus Membranes Moist Neck: Stoma site clean, no purulent drainage, no active bleeding. Cardiac: Normal S1 and S2, No Murmur, Other (Irregularly irregular) Lungs: Normal Breath Sounds, No Wheeze, Rales, Rhonchi Neuro: Alert and responsive, No focal deficits noted Abdomen: Soft, Non-Tender Skin: No rashes noted on visualized skin, Other (Left wrist with ecchymosis, no hematoma noted. ) Musculoskeletal: No Chest Wall Tenderness Extremities: No Clubbing, No Cyanosis, No Edema, Normal Pulses Internal Medicine: Result - Labs CBC & Chem 7: 09/10/17 06:43 09/10/17 06:43 Labs: Short CBC 09/10/17 Range/Units 06:43 WBC 5.3 (4.3-11.1) K/mcL Hgb 10.0 L (12.9-16.9) g/dL Hct 31.4 L (37.5-50.1) % Plt Count 134 L (140-400) K/mcL Neutrophils # 3.4 (1.6-8.9) K/mcL BMP 09/10/17 06:43 Sodium 139 Potassium 3.8 Chloride 112 H Carbon Dioxide 19 BUN 21 Creatinine 0.99 Glucose 72 Calcium 8.3 L - ABG Interpretation ABG results: PT/INR, D-dimer PT 21.6 Seconds (9.4-12.1) H 09/09/17 05:10 - VTE Reasons for not Prescribing Prophylaxis: Not indicated-Anticoagulated or INR therapeutic Consult Discharge Plan - Plan Referrals: Rd Mendoza MD [Primary Care Provider] -
[2017-09-10] MEDS: *HR* Warfarin 7.5 MG TABLET PO SCH (19:04)
[2017-09-10] MEDS: Gabapentin 100 MG CAPSULE PO SCH (21:33)
[2017-09-10] MEDS: Topiramate 25 MG TABLET PO SCH (21:33)
[2017-09-10] MEDS: traZODone 50 MG TABLET PO SCH (21:34)
--- NOTE | 2017-09-10 23:32 | Event Note ---
Date of Encounter: 09/10/17 Time of Encounter: 14:00 Note that patient and son both state patient is too weak to go home. Will have PT/OT evaluate patient for dispo planning.
[2017-09-11 04:26] LABS: Basophils % 0.6 %; Eosinophils # 0.6 K/mcL (0.0-0.6); Hematocrit 32.1 % (37.5-50.1); Hemoglobin 10.2 g/dL (12.9-16.9); Immature Granulocytes % 0.2 % (0-4); Lymphocytes # 1.1 K/mcL (0.6-4.6); Lymphocytes % 20.9 %; Mean Corpuscular HGB Conc 31.8 g/dL (31.6-35.5); Mean Corpuscular Hemoglobin 28.5 pg (28.0-33.3); Mean Corpuscular Volume 89.7 fL (83.0-100.0); Mean Platelet Volume 10.9 fL (9.4-12.4); Monocytes # 0.6 K/mcL (0.0-1.3); Monocytes % 10.4 %; Neutrophils # 3.1 K/mcL (1.6-8.9); Platelet Count 137 K/mcL (140-400); Red Blood Count 3.58 M/mcL (4.19-5.50); Red Cell Distribution Width 14.8 % (11.5-14.5); Segmented Neutrophils % 56.9 %
[2017-09-11 04:27] LABS: INR 1.3; Prothrombin Time 13.9 Seconds (9.4-12.1)
[2017-09-11 04:40] LABS: BUN/Creatinine Ratio 19 (6-26); Blood Urea Nitrogen 18 mg/dL (8-26); Calcium 8.9 mg/dL (8.6-10.8); Carbon Dioxide 22 mEq/L (19-29); Chloride 113 mEq/L (98-109); Glucose 90 mg/dL (70-99); Osmolality,Calculated 289 (280-300); Potassium 4.2 mEq/L (3.5-4.5); Sodium 139 mEq/L (136-145); eGFR For African Americans > 60 (> 60); eGFR For Non-African Americans > 60 (> 60)
[2017-09-11] MEDS: Ampicillin 2 GM in 0.9 % Sodium Chloride 150 ML IVPB SCH ×2 (05:34→11:34)
[2017-09-11] MEDS: Insulin LISPRO 300 UNITS/3 ML VIAL SQ SCH ×3 (07:35→15:47)
[2017-09-11] MEDS: BuPROPion XL (24 HR) 150 MG TABLET PO SCH (08:53)
[2017-09-11] MEDS: Ranolazine 500 MG TAB.ER.12H PO SCH (08:54)
[2017-09-11] MEDS: Aspirin Enteric Coated 81 MG Tablet PO SCH (08:54)
[2017-09-11] MEDS: amLODIPine 5 MG TABLET PO SCH (08:54)
[2017-09-11] MEDS: Insulin DETEMIR 100 UNIT/ML X5UNITS SQ SCH (08:56)
--- NOTE | 2017-09-11 14:12 | Discharge Summary ---
Date of Encounter: 09/11/17 Time of Encounter: 13:59 - Discharge Diagnosis (1) Chest pain Priority: Primary Status: Acute Qualifiers: Chest pain type: unspecified Qualified Code(s): R07.9 - Chest pain, unspecified (2) Urinary tract infection due to Enterococcus Priority: Secondary Status: Acute (3) Atrial fibrillation with RVR Priority: Secondary Status: Acute (4) Atrial fibrillation Priority: Secondary Status: Chronic Qualifiers: Atrial fibrillation type: unspecified Qualified Code(s): I48.91 - Unspecified atrial fibrillation (5) CAD (coronary artery disease) Priority: Secondary Status: Chronic Qualifiers: Coronary Disease-Associated Artery/Lesion type: unspecified vessel or lesion type [place] vs. transplanted heart: citizen [place] heart Associated angina: with unspecified angina Qualified Code(s): I25.119 - Atherosclerotic heart disease of [place] coronary artery with unspecified angina pectoris (6) Diabetes Priority: Secondary Status: Chronic Qualifiers: Diabetes mellitus type: type 2 Diabetes mellitus complication status: without complication Diabetes mellitus mcc insulin use: with mcc use Qualified Code(s): E11.9 - Type 2 diabetes mellitus without complications ; Z79.4 - medical terminologist (current) use of insulin; Z79.4 - prison (current) use of insulin; Z79.4 - medical terminologist (current) use of insulin; Z79.4 - prison ( current) use of insulin (7) Hypertension Priority: Secondary Status: Chronic Qualifiers: Hypertension type: essential hypertension Qualified Code(s): I10 - Essential (primary) hypertension (8) Chronic anemia Priority: Secondary Status: Chronic (9) DVT prophylaxis Priority: Secondary Status: Acute - Discharge Medications Prescriptions: Amoxicillin 875 mg PO BID #28 tablet Clopidogrel [Plavix] 75 mg PO DAILY #30 tablet Metoprolol [Lopressor] 12.5 mg PO BID #60 tablet Home Medications: Omeprazole [PriLOSEC] 20 mg PO QAM 06/11/15 [History] Sertraline [Zoloft] 100 mg PO QAM 06/11/15 [History] Tamsulosin [Flomax] 0.4 mg PO QAM 06/11/15 [History] BuPROPion XL (24 HR) [Wellbutrin Xl] 150 mg PO QAM 07/06/15 [History] Lisinopril 5 mg PO BID 08/10/15 [History] Insulin Glargine,Hum.rec.anlog [Lantus Solostar] 20 unit SQ QAM 12/09/15 [ History] Multivitamin [Multivitamins] 1 tab PO DAILY 12/09/15 [History] traZODone [TraZODone] 50 mg PO HS 01/06/16 [History] amLODIPine [Norvasc] 5 mg PO DAILY 05/16/16 [History] Acetaminophen/Butalbital/Caffe [Fioricet] 1 each PO DAILY PRN 05/14/17 [History] Ezetimibe [Zetia] 10 mg PO DAILY 05/14/17 [History] Ferrous Sulfate [Iron] 325 mg PO DAILY 05/14/17 [History] Gabapentin [Neurontin] 100 mg PO HS 05/14/17 [History] Metformin HCl [Metformin HCl ER] 500 mg PO QPM 05/14/17 [History] Promethazine [Phenergan] 25 mg PO Q6HR PRN 05/14/17 [History] Topiramate [Topamax] 50 mg PO HS 05/14/17 [History] Warfarin [Coumadin] 10 mg PO DAILY 05/15/17 [History] Acetaminophen [Tylenol] 650 mg PO Q6HR PRN tab 05/18/17 [Rx] Aspirin Enteric Coated [Aspirin EC] 81 mg PO DAILY 08/17/17 [History] Atorvastatin Calcium [Lipitor] 80 mg PO HS 08/17/17 [History] Cyclobenzaprine HCl 5 mg PO HS PRN 08/17/17 [History] Levothyroxine Sodium [Synthroid] 300 mcg PO QAM 08/17/17 [History] Nitroglycerin 0.4 mg SL Q5MIN PRN #14 tab.subl 08/22/17 [Rx] Ranolazine [Ranexa] 500 mg PO BID #60 tab.er.12h 08/22/17 [Rx] Amoxicillin 875 mg PO BID #28 tablet 09/11/17 [Rx] Clopidogrel [Plavix] 75 mg PO DAILY #30 tablet 09/11/17 [Rx] Metoprolol [Lopressor] 12.5 mg PO BID #60 tablet 09/11/17 [Rx] Allergies/Adverse Reactions: 3 Allergy/AdvReac Type Severity Reaction Status Date / Time No Known Allergies Allergy Verified 06/24/17 21:47 Procedures/tests Complete & Pending: Procedures Performed prior 72 hours Category Date Time Status CL Cardiac Catheterization [CL] Routine [employer] Practitioner 09/08/17 14:29 Ordered US retroperitoneal comp [US] Routine Exams 09/09/17 07:00 Draft ECG 12 lead ECG [ECG] Routine Y 09/08/17 16:52 Ordered Date of admission: 09/04/17 17:29 Primary care physician: Rd Mendoza MD Consults: 09/04/17 18:59 Consult to Cardiology [CONS] Routine Comment: Consulting Provider: Cardiology Paula Reason for Consult: HTN, ELEVATED TROP Time Notified: 18:59 Call Completed: Yes 09/05/17 10:42 Consult to Cardiac Rehabilitation-Phase1 [CONS] Routine Comment: Reason for Consult: elevated troponin Call Completed: No 09/07/17 08:54 Consult to Nephrology [CONS] Routine Consulting Provider: [facility] HT[facility] Sp[facility] SUMAN Reason for Consult: JAKE Call Completed: Yes 09/10/17 18:08 Consult to Physical Therapy [CONS] Routine Comment: Evaluate, develop and implement POC Reason for Consult: Evaluate, develop and implement POC. Dispo planning OT [Consult to Occupational Therapy] [CONS] Routine Comment: Evaluate, develop and implement POC Reason for Consult: Evaluate, develop and implement POC. Dispo planning Discharging clinician: Liang Narayanan - Patient Status Disposition: Home, Self-Care Condition: Good Functional capacity at discharge: independent ambulation Overall status at discharge: patient is progressing back to baseline - Discharge Instructions Follow Up With: Rd Mendoza MD [Primary Care Provider] - 09/18/17 2:00 pm () - Diet and Activity Activity: increase activity as tolerated Diet: advance to your usual diet Hospital course: Mr. 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 Presented to the ED with complaints of shortness of breath and non-exertional, nonradiating chest pain which began on the day of admission. He reports that he is compliant with his medications and is normally rate controlled. She woke up not feeling well and found his systolic blood pressure at home to be 193. He denied any fevers, chills, cough, pleuritic pain, diaphoresis, unilateral leg swelling. He admits to nausea. Chest x-ray CTA were all unremarkable. Troponin was negative. She was found to be in atrial fibrillation with RVR he was started on IV Cardizem drip for rate control and he was very hypertensive in the morning of admission as he did not take his antihypertensives that day. He was recently admitted for chest pain and at that time was started on Imdur and a beta freda with doses being adjusted. KG showed no ST elevation and no changes from prior EKG studies. He last had a TTE on 08/18/17 showed LVEF of 55% with mild concentric left ventricular hypertrophy, mild diastolic dysfunction, mild MR, mild TR and all wall segments had normal motion. A nuclear stress test in 07/2016 was negative for ischemia or infarct. Admitted for further workup and treatment related second troponin came back as 0.14, but then went down to 0.12 he was asymptomatic at that time. Cardiology was consulted she was already anticoagulated and therapeutic without any chest pain. He was sent to get a left heart catheterization however his INR was rated at 3-4.1. And so Coumadin was held until his INR would come down. INR was able to come down to 2.5 and so left heart catheter was done. He did have a urine culture that was positive and he was empirically started on Rocephin. Cultures came back positive for enterococcus, and he was switched to a stone based on sensitivities. Patient did have time of increasing creatinine, and poor by mouth. He was given IV fluids gently and nephrology was counseled. This is anticipation if patient can undergo left heart catheter with IV contrast. No function did improve and he was able to undergo left heart catheter. Vision had LHC on 09/08/17, had drug eluding stent placed in circumflex artery. Patient was too needed on on dual antiplatelet therapy, beta freda and statin. Patient did have an episode of bleeding from his stoma site after left heart catheter. This seemed to resolve on its own but ENT was consulted in case there was further bleeding. ENT did use silver nitrate to cauterize the area. He had no issues afterwards. He was able to advance his diet without issue. ENT did note that the bleeding should resolve within 24 hours. After 24 hour period, He was restarted on Coumadin. She was ready for discharge however his son and the patient himself both stated he was very weak. They were concerned about him going home by himself and able to take care of himself. The PT/OT was consulted for evaluation. However, patient did work on strengthening himself and was able to ambulate in the hospital without issue drinks improved greatly and he was ready to go home with his to help him if he needs anything. Discharged home in stable condition - Time Spent with Patient Total time spent providing and/or coordinating discharge services: - Constitutional Vitals: Temp Pulse Resp BP Pulse Ox 97.9 F 52 16 144/42 94 09/11/17 12:07 09/11/17 12:07 09/11/17 12:07 09/11/17 12:07 09/11/17 12:07 General appearance: Present: cooperative, A&O X 3, pleasant, no acute distress Exam: General: Conversant, No Apparent Distress HEENT: Atraumatic, Normocephaly, Mucus Membranes Moist Neck: Stoma site clean, no purulent drainage, no active bleeding. Cardiac: Normal S1 and S2, No Murmur, Other (Irregularly irregular) Lungs: Normal Breath Sounds, No Wheeze, Rales, Rhonchi Neuro: Alert and responsive, No focal deficits noted Abdomen: Soft, Non-Tender Skin: No rashes noted on visualized skin, Other (Left wrist with ecchymosis, no hematoma noted. ) Musculoskeletal: No Chest Wall Tenderness Extremities: No Clubbing, No Cyanosis, No Edema, Normal Pulses - VTE Reasons for not Prescribing Prophylaxis: Not indicated-Anticoagulated or INR therapeutic
[2017-09-11 15:37] VITALS: BP 130/60
[2017-09-11] MEDS ORDERED: Amoxicillin 500 MG CAPSULE PO SCH (16:00)
== END 2017-09-11 16:40 | disposition home or self-care (01) | DRG 247 ==
LOC: EMEROO 11:25 → 2ANU 11:25
PROVIDERS: ADMIT Pediatrics; ATTEND Family Medicine

== ENCOUNTER 2017-10-16 17:04 | Inpatient (IN) ==
--- NOTE | 2017-10-16 17:22 | Emergency Department Note ---
Disposition Clinical Impression: CAD (coronary artery disease), Chest pain Disposition: Admitted As Inpatient Condition: Good Referrals: Rd Mendoza MD [Primary Care Provider] - Forms: ED Satisfaction Letter Time of Disposition: 20:33 Chest Pain HPI - General Chief Complaint: ED Chest Pain Stated Complaint: CP / Hypertension Time Seen by Provider: 10/16/17 17:21 Source: patient Mode of arrival: ambulatory Limitations: no limitations Vital Signs Reviewed: Yes Nursing Notes Reviewed: Yes - History of Present Illness HPI Narrative: Patient presents to the ED with the chief complaint of chest pain. Patient has a history of CABG and stent placement with this most recent one a week ago. He is on Coumadin for paroxysmal A. fib and is on aspirin and Plavix for the stone. States that he started developing some chest discomfort yesterday that is worsening. Describes it as a heavy pressure in his left chest which is typical of his chest pain. He states that what is different about this one is that it is radiating into his left shoulder and into his left neck and is causing his left arm to feel slightly weak and tingly. No headache or changes in vision. 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 Some coughing and shortness of breath but only slightly worse than usual. No abdominal pain or vomiting. No diarrhea. He said some swelling in his right leg. Severity scale (1-10): 8 - Related Data Home Medications Medication Instructions Recorded Confirmed Omeprazole [PriLOSEC] 20 mg PO QAM 06/11/15 09/25/17 Sertraline [Zoloft] 100 mg PO QAM 06/11/15 09/25/17 Tamsulosin [Flomax] 0.4 mg PO QAM 06/11/15 09/25/17 BuPROPion XL (24 HR) [Wellbutrin 150 mg PO QAM 07/06/15 09/25/17 Xl] Lisinopril 5 mg PO BID 08/10/15 09/25/17 Insulin Glargine,Hum.rec.anlog 20 unit SQ QAM 12/09/15 09/25/17 [Lantus Solostar] Multivitamin [Multivitamins] 1 tab PO DAILY 12/09/15 09/25/17 traZODone [TraZODone] 50 mg PO HS 01/06/16 09/25/17 Acetaminophen/Butalbital/Caffe 1 each PO DAILY PRN 05/14/17 09/25/17 [Fioricet] Ezetimibe [Zetia] 10 mg PO DAILY 05/14/17 09/25/17 Ferrous Sulfate [Iron] 325 mg PO DAILY 05/14/17 09/25/17 Gabapentin [Neurontin] 100 mg PO HS 05/14/17 09/25/17 Metformin HCl [Metformin HCl ER] 500 mg PO QPM 05/14/17 09/25/17 Promethazine [Phenergan] 25 mg PO Q6HR PRN 05/14/17 09/25/17 Topiramate [Topamax] 50 mg PO HS 05/14/17 09/25/17 Warfarin [Coumadin] 5 mg PO WE 05/15/17 09/25/17 Aspirin Enteric Coated [Aspirin EC] 81 mg PO DAILY 08/17/17 09/25/17 Atorvastatin Calcium [Lipitor] 80 mg PO HS 08/17/17 09/25/17 Cyclobenzaprine HCl 5 mg PO HS PRN 08/17/17 09/25/17 Levothyroxine Sodium [Synthroid] 300 mcg PO QAM 08/17/17 09/25/17 Warfarin [Coumadin] 7.5 mg PO SUMOTUTHFRSA 09/25/17 09/25/17 Previous Rx's Medication Instructions Recorded Acetaminophen [Tylenol] 650 mg PO Q6HR PRN tab 05/18/17 Nitroglycerin 0.4 mg SL Q5MIN PRN #14 tab.subl 08/22/17 Ranolazine [Ranexa] 500 mg PO BID #60 tab.er.12h 08/22/17 Amoxicillin 875 mg PO BID #28 tablet 09/11/17 Clopidogrel [Plavix] 75 mg PO DAILY #30 tablet 09/11/17 Metoprolol [Lopressor] 12.5 mg PO BID #60 tablet 09/11/17 Amlodipine Besylate 10 mg PO DAILY #30 tablet 09/27/17 Isosorbide MONOnitrate (24 HR) 60 mg PO DAILY #30 tab.er.24h 09/27/17 [Imdur] Allergies Allergy/AdvReac Type Severity Reaction Status Date / Time No Known Allergies Allergy Verified 10/16/17 17:10 All systems ED: reviewed and negative except as stated. Constitutional: Denies: fever Cardiovascular: Reports: chest pain, dyspnea on exertion Respiratory: Reports: cough, dyspnea. Denies: sputum production Gastrointestinal: Denies: abdominal pain Musculoskeletal: Reports: as per HPI. Denies: back pain Chest Pain PMH - Past Medical History Medical history: Reports: atrial fibrillation, cancer, coronary artery disease, CVA, diabetes, hypertension, myocardial infarction, peripheral artery disease, SVT, thyroid disease Surgical history: Reports: angioplasty/stent, appendectomy, coronary bypass ( CABG), herniorrhaphy, LE vascular intervention, tracheostomy Psychiatric history: Reports: no psych history - Social History Smoking Status: Former smoker Alcohol use: Reports: none Drug use: Reports: none Physical Exam - General Limitations: no limitations General appearance: alert, in no apparent distress - Head Head exam: atraumatic, normocephalic, normal inspection - Eye Eye exam: Present: normal appearance, PERRL, EOMI - ENT ENT exam: normal exam, normal oropharynx, mucous membranes moist, other (trach) - Neck Neck exam: Present: normal inspection, full ROM, trachea midline (trach ) - Chest Chest inspection: Present: normal inspection, symmetric chest wall rise, other ( CABG scar) - Respiratory Respiratory exam: Present: normal lung sounds bilaterally - Cardiovascular Cardiovascular exam: Present: normal rhythm, tachycardia - Abdominal Exam Abdominal exam: Present: soft, Non-Tender. Absent: tenderness, distention, guarding, rebound, rigidity - Extremities Exam Extremities exam: Present: full ROM, pedal edema (R > L) - Neurological Exam Neurological exam: Present: alert, oriented X3 - Psychiatric Psychiatric exam: Present: normal affect, normal mood - Skin Skin exam: Present: warm, dry, intact, normal color Course Course Narrative: Patient presenting with chest pain radiating to his arm. Has a extensive cardiac history with recent stent placement. Has also had aortic grafting. Although this does seem to be angina type pain with his radiation to his arm and slight subjective weakness and to his jaw. We will CTA chest, abdomen and pelvis to rule out dissection. - Reevaluation(s) Reevaluation #1: Patient CTA did not show dissection. We will admit to the hospitalist for chest pain. Vital Signs Temperature 98.5 F 10/16/17 17:06 Pulse Rate 109 10/16/17 17:06 Respiratory Rate 20 10/16/17 17:06 Blood Pressure 159/79 10/16/17 17:06 O2 Sat by Pulse Oximetry 97 10/16/17 17:06 Temperature 98.5 F 10/16/17 17:06 Pulse Rate 90 10/16/17 19:20 Respiratory Rate 17 10/16/17 19:20 Blood Pressure 150/101 10/16/17 19:20 O2 Sat by Pulse Oximetry 95 10/16/17 19:20 Oxygen Delivery Oxygen Delivery Room Air Chest Pain - Medical Records Medical records reviewed: Yes I reviewed the patient's medical records. - Lab Data Lab results reviewed: Yes I reviewed the patient's lab results. Result diagrams: 10/16/17 18:08 10/16/17 18:08 Lab Results 10/16/17 10/16/17 10/16/17 Range/Units 18:08 18:08 18:08 WBC 6.4 (4.3-11.1) K/mcL RBC 4.08 L (4.19-5.50) M/mcL Hgb 11.4 L (12.9-16.9) g/dL Hct 36.5 L (37.5-50.1) % MCV 89.5 (83.0-100.0) fL MCH 27.9 L (28.0-33.3) pg MCHC 31.2 L (31.6-35.5) g/dL RDW 14.8 H (11.5-14.5) % Plt Count 136 L (140-400) K/mcL MPV 10.3 (9.4-12.4) fL Immature Gran % 0.3 (0-4) % Seg Neutrophils % 62.1 % Lymphocytes % 17.7 % Monocytes % 9.8 % Eosinophils % 9.6 % Basophils % 0.5 % Neutrophils # 4.0 (1.6-8.9) K/mcL Lymphocytes # 1.1 (0.6-4.6) K/mcL Monocytes # 0.6 (0.0-1.3) K/mcL Eosinophils # 0.6 (0.0-0.6) K/mcL Basophils # 0.0 (0.0-0.2) K/mcL PT (9.4-12.1) Seconds INR APTT (26.0-36.0) Seconds Sodium 137 (136-145) mEq/L Potassium 4.3 (3.5-5.1) mEq/L Chloride 107 (98-107) mEq/L Carbon Dioxide 25 (23-29) mEq/L BUN 26 H (8-23) mg/dL Creatinine 1.09 (0.70-1.30) mg/dL Est GFR ( Amer) > 60 (> 60) Est GFR (Non-Af Amer) > 60 (> 60) BUN/Creatinine Ratio 24 (6-26) Glucose 175 H (70-105) mg/dL Calculated Osmolality 293 (280-300) Calcium 9.0 (8.6-10.3) mg/dL Troponin I < 0.03 (< 0.04) ng/mL Urine Color (Yellow) Urine Clarity (Clear) Urine pH (5.0-8.0) pH Units Ur Specific [place] (1.010-1.025) Urine Protein (Neg-Trace) mg/dL Urine Glucose (UA) (Normal) mg/dL Urine Ketones (Negative) mg/dL Urine Blood (Negative) Urine Nitrite (Negative) Urine Bilirubin (Negative) Urine Urobilinogen (Normal) mg/dL Ur Leukocyte Esterase (Negative) Urine Microscopic RBC (0-3) per hpf Urine Microscopic WBC (0-3) per hpf Ur Squamous Epith Cells (None-Few) per lpf Urine Bacteria (None-Few) per hpf Hyaline Casts (None-Few) per lpf Ur Culture Indicated? (NO) 10/16/17 10/16/17 Range/Units 18:08 18:40 WBC (4.3-11.1) K/mcL RBC (4.19-5.50) M/mcL Hgb (12.9-16.9) g/dL Hct (37.5-50.1) % MCV (83.0-100.0) fL MCH (28.0-33.3) pg MCHC (31.6-35.5) g/dL RDW (11.5-14.5) % Plt Count (140-400) K/mcL MPV (9.4-12.4) fL Immature Gran % (0-4) % Seg Neutrophils % % Lymphocytes % % Monocytes % % Eosinophils % % Basophils % % Neutrophils # (1.6-8.9) K/mcL Lymphocytes # (0.6-4.6) K/mcL Monocytes # (0.0-1.3) K/mcL Eosinophils # (0.0-0.6) K/mcL Basophils # (0.0-0.2) K/mcL PT 14.1 H (9.4-12.1) Seconds INR 1.3 APTT 29.1 (26.0-36.0) Seconds Sodium (136-145) mEq/L Potassium (3.5-5.1) mEq/L Chloride (98-107) mEq/L Carbon Dioxide (23-29) mEq/L BUN (8-23) mg/dL Creatinine (0.70-1.30) mg/dL Est GFR ( Amer) (> 60) Est GFR (Non-Af Amer) (> 60) BUN/Creatinine Ratio (6-26) Glucose (70-105) mg/dL Calculated Osmolality (280-300) Calcium (8.6-10.3) mg/dL Troponin I (< 0.04) ng/mL Urine Color Yellow (Yellow) Urine Clarity Cloudy A (Clear) Urine pH 7.0 (5.0-8.0) pH Units Ur Specific [place] 1.016 (1.010-1.025) Urine Protein 30 H (Neg-Trace) mg/dL Urine Glucose (UA) Normal (Normal) mg/dL Urine Ketones Negative (Negative) mg/dL Urine Blood Trace H (Negative) Urine Nitrite Positive A (Negative) Urine Bilirubin Negative (Negative) Urine Urobilinogen Normal (Normal) mg/dL Ur Leukocyte Esterase Large H (Negative) Urine Microscopic RBC 5-15 H (0-3) per hpf Urine Microscopic WBC TNTC H (0-3) per hpf Ur Squamous Epith Cells Few (None-Few) per lpf Urine Bacteria Many H (None-Few) per hpf Hyaline Casts None Seen (None-Few) per lpf Ur Culture Indicated? YES A (NO) - Radiology Data Radiology results reviewed: Yes I reviewed the patient's radiology results. - EKG Data EKG attestation: Yes I reviewed and interpreted this EKG. EKG results narrative: Sinus rhythm, rate 93, IL interval 117, QRS 109, QTC 423, left axis deviation, ST segment depression in V3, V4, V5, with similar morphology from previous Attestation Statement - Attestation Attestation: I examined this patient and my medical decision-making was reviewed with the Resident Physician, Dr. Gutierres. I agree with the documented findings, disposition and treatment plan as described except to the extent set forth below. He she has 77-year-old white male with a significant history of extensive cardiovascular disease and abdominal aortic repair who presents to the emergency Department today with complaints of left-sided chest discomfort radiating into his neck. Patient was just seen and evaluated and had a left heart catheter approximately one week ago and had a drug-eluting stent placed in his circumflex. Patient has been taking his medications as directed including aspirin and Plavix as well as Coumadin. I agree with the patient's physical exam findings as documented. His EKG does not show any acute changes compared to previous. Patient's labs are overall within normal limits with a normal troponin and BNP. Patient underwent CTA of the chest which was unremarkable for any acute findings. Patient was found to have a UTI on lab evaluation and was started on Rocephin. And continues to have left-sided chest discomfort, vital signs are stable at this time. Case was discussed with the hospitalist who accepted patient for admission.
[2017-10-16 18:17] LABS: Basophils % 0.5 %; Eosinophils # 0.6 K/mcL (0.0-0.6); Eosinophils % 9.6 %; Hematocrit 36.5 % (37.5-50.1); Hemoglobin 11.4 g/dL (12.9-16.9); Immature Granulocytes % 0.3 % (0-4); Lymphocytes # 1.1 K/mcL (0.6-4.6); Lymphocytes % 17.7 %; Mean Corpuscular HGB Conc 31.2 g/dL (31.6-35.5); Mean Corpuscular Hemoglobin 27.9 pg (28.0-33.3); Mean Corpuscular Volume 89.5 fL (83.0-100.0); Mean Platelet Volume 10.3 fL (9.4-12.4); Monocytes # 0.6 K/mcL (0.0-1.3); Monocytes % 9.8 %; Platelet Count 136 K/mcL (140-400); Red Blood Count 4.08 M/mcL (4.19-5.50); Red Cell Distribution Width 14.8 % (11.5-14.5); Segmented Neutrophils % 62.1 %
[2017-10-16 18:24] LABS: INR 1.3; Prothrombin Time 14.1 Seconds (9.4-12.1)
[2017-10-16 18:26] LABS: Activated Partial Thrombo Time 29.1 Seconds (26.0-36.0)
[2017-10-16 18:36] LABS: BUN/Creatinine Ratio 24 (6-26); Blood Urea Nitrogen 26 mg/dL (8-23); Carbon Dioxide 25 mEq/L (23-29); Chloride 107 mEq/L (98-107); Glucose 175 mg/dL (70-105); Osmolality,Calculated 293 (280-300); Potassium 4.3 mEq/L (3.5-5.1); Sodium 137 mEq/L (136-145); eGFR For African Americans > 60 (> 60); eGFR For Non-African Americans > 60 (> 60)
[2017-10-16 18:47] LABS: Bilirubin,Urine Negative (Negative); Blood,Urine Trace (Negative); Clarity,Urine Cloudy (Clear); Color,Urine Yellow (Yellow); Glucose,Urine (UA) Normal (Normal); Ketones,Urine Negative (Negative); Leukocyte Esterase,Urine Large (Negative); Nitrite,Urine Positive (Negative); Protein,Urine 30 mg/dL (Neg-Trace); Specific Gravity,Urine 1.016 (1.010-1.025); Urobilinogen,Urine Normal (Normal)
[2017-10-16 18:49] LABS: Bacteria,Urine Many per hpf (None-Few); Hyaline Casts,Urine None Seen per lpf (None-Few); Squamous Epithelial Cell,Urine Few per lpf (None-Few); WBC,Urine TNTC per hpf (0-3)
[2017-10-16] MEDS ORDERED: cefTRIAXone 1,000 MG in Water for inj. (sterile) 20 ML 10 ML IVPB ONE (21:00)
[2017-10-16] MEDS ORDERED: Acetaminophen 325 MG TABLET PO PRN (21:31)
[2017-10-16] MEDS ORDERED: Mag Hydrox/Al Hydrox/Simeth 30 ML UDC PO PRN (21:36)
[2017-10-16] MEDS ORDERED: *HR* Morphine 2 MG/ML SYRINGE IVP PRN (21:36)
[2017-10-16] MEDS ORDERED: Naloxone 0.4 MG/ML INJ IVP PRN (21:36)
[2017-10-16] MEDS ORDERED: Ondansetron 4 MG/2 ML VIAL IVP PRN (21:36)
[2017-10-16] MEDS ORDERED: MOM Conc 10 ML UD.LIQ PO PRN (21:36)
--- NOTE | 2017-10-16 21:47 | Internal Med History&Physical ---
Date of Encounter: 10/16/17 Time of Encounter: 21:42 Assessment and Plan (1) Chest pain Current visit: Yes Status: Acute - History of chronic chest pain. Status post CABG and multiple PCI with stent placement, last stent placement in 09/01. - Admitted 2 weeks ago with similar symptoms, Norvasc and imdur doses was adjusted and achieved good relief of symptoms. - Troponins negative 1, EKG no acute ST-T change. - BP was elevated with SBP above 150 at the ED, increase imdur to 90 mg daily, increase Ranexa 1000 mg bid. - Monitor BP and chest pain. Qualifiers: Chest pain type: unspecified Qualified Code(s): R07.9 - Chest pain, unspecified (2) UTI (urinary tract infection) Current visit: Yes Status: Acute - Pending urine culture, continue Rocephin IV. Qualifiers: Urinary tract infection type: acute cystitis Hematuria presence: without hematuria Qualified Code(s): N30.00 - Acute cystitis without hematuria (3) CAD (coronary artery disease) Current visit: Yes Status: Chronic - Continue current treatment with BB, ACEI, Asa, Plavix. Qualifiers: Coronary Disease-Associated Artery/Lesion type: bypass graft [place] vs. transplanted heart: [place] heart Associated angina: with stable angina Qualified Code(s): I25.708 - Atherosclerosis of coronary artery bypass graft(s) , unspecified, with other forms of angina pectoris (4) Bladder wall thickening Current visit: No Status: Acute (5) Aneurysm Current visit: No Status: Chronic (6) Atrial fibrillation Current visit: No Status: Chronic - Continue Coumadin. Qualifiers: Atrial fibrillation type: paroxysmal Qualified Code(s): I48.0 - Paroxysmal atrial fibrillation (7) Congestive heart failure Current visit: No Status: Chronic - Euvolemic, continue recurrent treatment. Qualifiers: Congestive heart failure type: diastolic Congestive heart failure chronicity: chronic Qualified Code(s): I50.32 - Chronic diastolic (congestive ) heart failure (8) Diabetes Current visit: No Status: Chronic - Hold metformin, add insulin sliding scale, continue other home medication including insulin. Qualifiers: Diabetes mellitus type: type 2 Diabetes mellitus complication status: without complication Diabetes mellitus detention insulin use: with detention use Qualified Code(s): E11.9 - Type 2 diabetes mellitus without complications ; Z79.4 - buttermaker (current) use of insulin; Z79.4 - buttermaker (current) use of insulin; Z79.4 - residential (current) use of insulin; Z79.4 - residential ( current) use of insulin (9) Hypertension Current visit: No Status: Chronic - BP meds adjusted as above. 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 Internal Medicine - H&P: HPI Admitted From: Emergency Dept Plans for Post Hospital Care: Transfer Inp Rehab Fac History of present illness: Patient presents to the ED with the chief complaint of chest pain. Patient has a history of CABG and stent placement with this most recent one a week ago. He is on Coumadin for paroxysmal A. fib and is on aspirin and Plavix for the stent. States that he started developing some chest discomfort yesterday that is worsening. Describes it as a heavy pressure in his left chest which is typical of his chest pain. He states that what is different about this one is that it is radiating into his left shoulder and into his left neck and is causing his left arm to feel slightly weak and tingling. No headache or changes in vision. 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 Some coughing and shortness of breath but only slightly worse than usual. No abdominal pain or vomiting. No diarrhea. He said some swelling in his right leg. He was in this hospital about 2 weeks ago is similar complaints. He was found to have elevated blood pressure. His BP meds was changed with that adjustment of the doses of Norvasc and Imdur. His symptoms was improved and he was discharged. At the ED, his blood pressure was elevated with SBP about a 150. Troponin was normal, EKG no acute ST-T change. Due to the consistent chest pain , he will be admitted to inpatient service for further monitoring. Past Med Surg Social Fam HX - Past Medical History Medical history: atrial fibrillation, cancer, coronary artery disease, CVA, diabetes, hypertension, myocardial infarction, peripheral artery disease, SVT, thyroid disease Psychiatric history: no psych history - Past Surgical History Surgical History: angioplasty/stent, appendectomy, coronary bypass (CABG), herniorrhaphy, LE vascular intervention, tracheostomy - Social History Smoking Status: Former smoker Smokeless Tobacco Status: No Alcohol use: none Drug use: none - Family History Mother Living Status: Hx Family Cancer: Yes Father Living Status: Hx Family Cancer: Yes (lung cancer) Sister Living Status: Hx Family Cancer: Yes (lung cancer) Internal Medicine - H&P: Meds Omeprazole [PriLOSEC] 20 mg PO QAM 06/11/15 [History] Sertraline [Zoloft] 100 mg PO QAM 06/11/15 [History] Tamsulosin [Flomax] 0.4 mg PO QAM 06/11/15 [History] BuPROPion XL (24 HR) [Wellbutrin Xl] 150 mg PO QAM 07/06/15 [History] Lisinopril 5 mg PO BID 08/10/15 [History] Insulin Glargine,Hum.rec.anlog [Lantus Solostar] 20 unit SQ QAM 12/09/15 [ History] Multivitamin [Multivitamins] 1 tab PO DAILY 12/09/15 [History] traZODone [TraZODone] 50 mg PO HS 01/06/16 [History] Acetaminophen/Butalbital/Caffe [Fioricet] 1 each PO DAILY PRN 05/14/17 [History] Ezetimibe [Zetia] 10 mg PO DAILY 05/14/17 [History] Ferrous Sulfate [Iron] 325 mg PO DAILY 05/14/17 [History] Gabapentin [Neurontin] 100 mg PO HS 05/14/17 [History] Metformin HCl [Metformin HCl ER] 500 mg PO QPM 05/14/17 [History] Promethazine [Phenergan] 25 mg PO Q6HR PRN 05/14/17 [History] Topiramate [Topamax] 50 mg PO HS 05/14/17 [History] Warfarin [Coumadin] 5 mg PO WE 05/15/17 [History] Acetaminophen [Tylenol] 650 mg PO Q6HR PRN tab 05/18/17 [Rx] Aspirin Enteric Coated [Aspirin EC] 81 mg PO DAILY 08/17/17 [History] Atorvastatin Calcium [Lipitor] 80 mg PO HS 08/17/17 [History] Cyclobenzaprine HCl 5 mg PO HS PRN 08/17/17 [History] Levothyroxine Sodium [Synthroid] 300 mcg PO QAM 08/17/17 [History] Nitroglycerin 0.4 mg SL Q5MIN PRN #14 tab.subl 08/22/17 [Rx] Ranolazine [Ranexa] 500 mg PO BID #60 tab.er.12h 08/22/17 [Rx] Amoxicillin 875 mg PO BID #28 tablet 09/11/17 [Rx] Clopidogrel [Plavix] 75 mg PO DAILY #30 tablet 09/11/17 [Rx] Metoprolol [Lopressor] 12.5 mg PO BID #60 tablet 09/11/17 [Rx] Warfarin [Coumadin] 7.5 mg PO SUMOTUTHFRSA 09/25/17 [History] Amlodipine Besylate 10 mg PO DAILY #30 tablet 09/27/17 [Rx] Isosorbide MONOnitrate (24 HR) [Imdur] 60 mg PO DAILY #30 tab.er.24h 09/27/17 [ Rx] 3 Allergy/AdvReac Type Severity Reaction Status Date / Time No Known Allergies Allergy Verified 10/16/17 17:10 All Systems PM: A 10-system review of systems was performed and is negative for pertinent findings except as documented above in the HPI. Review of systems: REVIEW OF SYSTEMS: CONSTITUTIONAL: No weight loss, fever, chills, weakness or fatigue. HEENT: Eyes: No visual loss, blurred vision, double vision or yellow sclerae. Ears, Nose, Throat: No hearing loss, sneezing, congestion, runny nose or sore throat. SKIN: No rash or itching. CARDIOVASCULAR: see HPI. RESPIRATORY: No shortness of breath, cough or sputum. GASTROINTESTINAL: No anorexia, nausea, vomiting or diarrhea. No abdominal pain or blood. GENITOURINARY: No dysuria, urgency, or frequency. NEUROLOGICAL: No headache, dizziness, syncope, paralysis, ataxia, numbness or tingling in the extremities. No change in bowel or bladder control. MUSCULOSKELETAL: No muscle, back pain, joint pain or stiffness. HEMATOLOGIC: No anemia, bleeding or bruising. LYMPHATICS: No enlarged nodes. No history of splenectomy. PSYCHIATRIC: No history of depression or anxiety. ENDOCRINOLOGIC: No reports of sweating, cold or heat intolerance. No polyuria or polydipsia. - Constitutional Vitals: Temp Pulse Resp BP Pulse Ox 98.5 F 90 16 175/109 95 10/16/17 17:06 10/16/17 19:20 10/16/17 21:15 10/16/17 21:15 10/16/17 19:20 Exam: PHYSICAL EXAMINATION: GENERAL APPEARANCE: The patient is alert, oriented and in no acute distress. HEENT: Head is normocephalic. The sinuses are nontender. Pupils are equal and reactive. The nares are patent. Oropharynx clear without lesions. NECK: Supple without lymphadenopathy. HEART: Regular rate and rhythm. LUNGS: No crackles or wheezes are heard. ABDOMEN: Soft, nontender, nondistended with good bowel sounds heard. Inguinal area is normal. EXTREMITIES: Without cyanosis, clubbing or edema. NEUROLOGICAL: Gross nonfocal. SKIN: Warm and dry without any rash. Internal Med - H&P Results - Labs CBC & Chem 7: 10/16/17 18:08 10/16/17 18:08
[2017-10-16] MEDS ORDERED: D5% in Water 1,000 ML IVC PRN (21:58)
[2017-10-16] MEDS ORDERED: *HR* Dextrose 50 % in Water (Syg) 50 ML SYRINGE IVP PRN (21:58)
[2017-10-16] MEDS ORDERED: Dextrose Gel 15 GM/37.5 ML TUBE PO PRN ×2 (21:58)
[2017-10-16] MEDS: *HR* Warfarin 7.5 MG TABLET PO SCH (22:23)
[2017-10-16] MEDS: Isosorbide MONOnitrate (24 HR) 30 MG TAB.ER.24H PO SCH (23:44)
[2017-10-17 01:22] LABS: Hematocrit 36.2 % (37.5-50.1); Hemoglobin 11.5 g/dL (12.9-16.9); Mean Corpuscular HGB Conc 31.8 g/dL (31.6-35.5); Mean Corpuscular Volume 88.1 fL (83.0-100.0); Mean Platelet Volume 10.5 fL (9.4-12.4); Platelet Count 147 K/mcL (140-400); Red Blood Count 4.11 M/mcL (4.19-5.50); Red Cell Distribution Width 14.8 % (11.5-14.5)
[2017-10-17 01:34] LABS: Alanine Aminotransferase 27 Units/L (7-52); Albumin 3.5 g/dL (3.5-5.7); Albumin/Globulin Ratio 1.3 (1.1-2.2); Alkaline Phosphatase 75 Units/L (34-104); Aspartate Amino Transferase 21 Units/L (13-39); BUN/Creatinine Ratio 25 (6-26); Bilirubin,Total 0.4 mg/dL (0.3-1.0); Blood Urea Nitrogen 25 mg/dL (8-23); Carbon Dioxide 26 mEq/L (23-29); Chloride 105 mEq/L (98-107); Globulin 2.7 g/dL (2.4-3.5); Glucose 105 mg/dL (70-105); Osmolality,Calculated 291 (280-300); Potassium 4.1 mEq/L (3.5-5.1); Sodium 138 mEq/L (136-145); Total Protein 6.2 g/dL (6.4-8.9); eGFR For African Americans > 60 (> 60); eGFR For Non-African Americans > 60 (> 60)
[2017-10-17] MEDS: Insulin LISPRO 300 UNITS/3 ML VIAL SQ SCH ×3 (07:38→17:16)
[2017-10-17] MEDS ORDERED: Isosorbide MONOnitrate (24 HR) 30 MG TAB.ER.24H PO SCH (09:00)
[2017-10-17] MEDS: Ranolazine 500 MG TAB.ER.12H PO SCH ×2 (09:55→21:48)
[2017-10-17] MEDS: BuPROPion XL (24 HR) 150 MG TABLET PO SCH (09:56)
[2017-10-17] MEDS: Aspirin Enteric Coated 81 MG Tablet PO SCH (09:56)
[2017-10-17] MEDS: Multivit/Ca/Min/Fe/FA 1 TAB TABLET PO SCH (09:56)
[2017-10-17] MEDS: amLODIPine 5 MG TABLET PO SCH (09:56)
[2017-10-17] MEDS: Insulin DETEMIR 100 UNIT/ML X5UNITS SQ SCH (09:57)
[2017-10-17] MEDS: Isosorbide MONOnitrate (24 HR) 30 MG TAB.ER.24H PO SCH (09:57)
--- NOTE | 2017-10-17 16:54 | Electrocardiograph Report ---
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
[2017-10-17] MEDS: *HR* Warfarin 7.5 MG TABLET PO SCH (17:32)
--- NOTE | 2017-10-17 18:11 | Internal Med Progress Note ---
Date of Encounter: 10/17/17 Time of Encounter: 09:15 - Assessment and plan (1) Chest pain Current Visit: Yes Status: Acute Assessment and plan: History of chronic chest pain. Status post CABG and multiple PCI with stent placement, last stent placement in 09/01. Admitted 2 weeks ago with similar symptoms, Norvasc and imdur doses was adjusted and achieved good relief of symptoms. Troponins negative 1, EKG no acute ST-T change. BP was elevated with SBP above 150 at the ED, increase imdur to 90 mg daily, increase Ranexa 1000 mg bid. Monitor BP and chest pain. PT has had no chest pain today after increase in Imdur. Qualifiers: Chest pain type: unspecified Qualified Code(s): R07.9 - Chest pain, unspecified (2) CAD (coronary artery disease) Current Visit: Yes Status: Chronic Assessment and plan: Pt denies chest pain today. Continue ASA, BB, Plavix. Imdur increased. Continue telemetry. Qualifiers: Coronary Disease-Associated Artery/Lesion type: bypass graft [place] vs. transplanted heart: [place] heart Associated angina: with stable angina Qualified Code(s): I25.708 - Atherosclerosis of coronary artery bypass graft(s) , unspecified, with other forms of angina pectoris (3) Diabetes Current Visit: Yes Status: Chronic Assessment and plan: Continue accuchecks achs, diabetic diet and SSI. Qualifiers: Diabetes mellitus type: type 2 Diabetes mellitus complication status: without complication Diabetes mellitus long-term insulin use: with bed bug exterminator use Qualified Code(s): E11.9 - Type 2 diabetes mellitus without complications ; Z79.4 - roasterman (current) use of insulin; Z79.4 - roasterman (current) use of insulin; Z79.4 - roasterman (current) use of insulin; Z79.4 - skilled nursing ( current) use of insulin (4) Atrial fibrillation Current Visit: Yes Status: Chronic Assessment and plan: Contine anticoagulation ,Coumadin. Qualifiers: Atrial fibrillation type: paroxysmal Qualified Code(s): I48.0 - Paroxysmal atrial fibrillation (5) Nasopharyngeal cancer Current Visit: Yes Status: Chronic Assessment and plan: Per pt history. Pt has trach. (6) Congestive heart failure Current Visit: Yes Status: Chronic Assessment and plan: No acute exacerbation, pt euvolemic. Denies edema or SOB . Continue tele. Qualifiers: Congestive heart failure type: diastolic Congestive heart failure chronicity: chronic Qualified Code(s): I50.32 - Chronic diastolic (congestive ) heart failure (7) Bladder wall thickening Current Visit: No Status: Acute (8) DVT prophylaxis Current Visit: Yes Status: Acute Assessment and plan: Pt on Coumadin. INR subtherapeutic on admission. (9) UTI (urinary tract infection) Current Visit: Yes Status: Acute Assessment and plan: Patient self catheters approximately 4-5 times a day. He reports that he has not had no acute, cloudy urine at home. On admission, urine was cloudy with trace of blood, positive for nitrates, large amount of leukocyte esterase, too numerous to count white cells, many bacteria. Culture is pending. Currently patient is being treated with Rocephin 1 g IV daily. We will adjust antibiotics as culture and sensitivity returned. Qualifiers: Urinary tract infection type: acute cystitis Hematuria presence: without hematuria Qualified Code(s): N30.00 - Acute cystitis without hematuria - Time Spent With Patient less than 15 minutes - Constitutional Vitals: Temp Pulse Resp BP Pulse Ox 97.9 F 56 18 132/68 96 10/17/17 15:14 10/17/17 15:14 10/17/17 15:14 10/17/17 15:14 10/17/17 15:14 General appearance: Present: cooperative, A&O X 3, pleasant, answers questions appropriately. Absent: no acute distress - Head Head exam: Present: atraumatic, normal inspection, normocephalic - Eye Eye exam: Present: conjuntiva pink, sclera anicteric - Neck Neck exam general surgery: Present: supple, trachea midline. Absent: lymphadenopathy, tenderness - Respiratory Respiratory exam: Present: decreased breath sounds, CTAB. Absent: accessory muscle use, chest wall tenderness, rales, respiratory distress, rhonchi, wheezes - Cardiovascular Cardiovascular exam: Present: RRR, +S1, +S2. Absent: diastolic murmur, gallop, rubs, systolic murmur - GI/Abdominal GI/Abdominal exam: Present: normal bowel sounds, soft. Absent: distended, hepatomegaly, tenderness - Extremities Exam Extremities exam: Present: normal inspection, warm, radial pulses palpable and symmetrical. Absent: calf tenderness, cyanotic, pedal edema, tenderness - Neurological Exam Neurological exam: Present: alert, oriented X3, no focal deficits. Absent: facial droop, speech deficit - Skin Skin exam: Present: dry, intact, normal color, warm. Absent: rash Internal Medicine: Result - Labs CBC & Chem 7: 10/17/17 00:38 10/17/17 00:38 Labs: Short CBC 10/17/17 Range/Units 00:38 WBC 8.8 (4.3-11.1) K/mcL Hgb 11.5 L (12.9-16.9) g/dL Hct 36.2 L (37.5-50.1) % Plt Count 147 (140-400) K/mcL BMP 10/17/17 00:38 Sodium 138 Potassium 4.1 Chloride 105 Carbon Dioxide 26 BUN 25 H Creatinine 1.00 Glucose 105 Calcium 9.0 Cardiac Enzymes 10/17/17 10/17/17 Range/Units 00:38 06:24 Troponin I < 0.03 < 0.03 (< 0.04) ng/mL Liver Function 10/17/17 Range/Units 00:38 Total Bilirubin 0.4 (0.3-1.0) mg/dL AST 21 (13-39) Units/L ALT 27 (7-52) Units/L Alkaline Phosphatase 75 (34-104) Units/L Albumin 3.5 (3.5-5.7) g/dL - ABG Interpretation ABG results: PT/INR, D-dimer PT 14.1 Seconds (9.4-12.1) H 10/16/17 18:08 Consult Discharge Plan - Plan Referrals: Rd Mendoza MD [Primary Care Provider] - (Office unable to schedule patient at this time due to past missed visits. )
[2017-10-17] MEDS ORDERED: cefTRIAXone 1,000 MG in Water for inj. (sterile) 20 ML 10 ML IVPB SCH (21:00)
[2017-10-17] MEDS ORDERED: traZODone 50 MG TABLET PO SCH (21:00)
[2017-10-17] MEDS ORDERED: Topiramate 25 MG TABLET PO SCH (21:00)
[2017-10-17] MEDS ORDERED: Gabapentin 100 MG CAPSULE PO SCH (21:00)
[2017-10-18 07:35] VITALS: BP 115/61
--- NOTE | 2017-10-18 08:45 | Discharge Summary ---
Date of Encounter: 10/18/17 Time of Encounter: 08:15 - Discharge Diagnosis (1) Chest pain Priority: Primary Status: Acute Comments: History of chronic chest pain. Status post CABG and multiple PCI with stent placement, last stent placement in 09/01. Admitted 2 weeks ago with similar symptoms, Norvasc and imdur doses were adjusted and achieved good relief of symptoms. Troponins negative 1, EKG no acute ST-T change. Chest x-ray shows small right pleural effusion, chest is CTA showed multiple postsurgical changes, including a partially visualized occluded bypass graft arising from the right superficial femoral artery. No acute pulmonary disease. BP was elevated with SBP above 150 at the ED, restart Imdur 30 mg daily, increase Ranexa 1000 mg bid. Continue aspirin, Lipitor, Plavix, Coumadin, TEREZA inhibitor. PT has had no chest pain since restarting medications. Chest X-Ray 10/16/17 17:13 IMPRESSION: Small right pleural effusion. D/ / Sue Bishop MD / Sue Bishop MD Interpreting Provider: Sue Bishop MD Chest CTA 10/16/17 18:57 IMPRESSION: 1. No aortic dissection or other acute process in the chest, abdomen, and pelvis. 2. Coronary artery atherosclerotic vascular disease status post CABG. 3. Status post cholecystectomy. 4. Status post endograft repair of the abdominal aorta and bilateral iliac arteries without complication identified. 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 5. Chronic right lateral urinary bladder wall thickening stable to mildly worsened from the previous exam. 6. Partially visualized occluded bypass graft arising from the right superficial femoral artery. D/ / Shane Ramirez MD / Shane Ramirez MD Interpreting Provider: Shane Ramirez MD Qualifiers: Chest pain type: unspecified Qualified Code(s): R07.9 - Chest pain, unspecified (2) CAD (coronary artery disease) Priority: Secondary Status: Chronic Comments: Patient continues to deny chest pain. Continue aspirin, beta freda, Plavix, Imdur, Ranexa, Coumadin. Qualifiers: Coronary Disease-Associated Artery/Lesion type: bypass graft [place] vs. transplanted heart: [place] heart Associated angina: with stable angina Qualified Code(s): I25.708 - Atherosclerosis of coronary artery bypass graft(s) , unspecified, with other forms of angina pectoris (3) Diabetes Priority: Secondary Status: Chronic Comments: A1c was 7.3% in August,. Continue home medications, continue diabetic diet and lifestyle modifications. 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 Continue anticoagulation. 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 Patient has tracheostomy. (6) Congestive heart failure Priority: Secondary Status: Chronic Comments: No acute exacerbation. Patient has no edema and denies shortness of breath. Lungs are clear and diminished. Continue home medications and follow with cardiology as needed. Qualifiers: Congestive heart failure type: diastolic Congestive heart failure chronicity: chronic Qualified Code(s): I50.32 - Chronic diastolic (congestive ) heart failure (7) Bladder wall thickening Priority: Secondary Status: Chronic Comments: Chronic. Noted on CT abdomen. Follow with primary care. (8) DVT prophylaxis Priority: Secondary Status: Acute Comments: Patient is on Coumadin from home. (9) UTI (urinary tract infection) Priority: Secondary Status: Acute Comments: Patient self catheters approximately 4-5 times a day. Urology has recommended he increase that to 6-7 times a day. He reports that he has had cloudy, foul- smelling urine at home. On admission, urine was cloudy with a trace of blood, positive for nitrites, leukocyte esterase, white cells TNTC, many bacteria. Initial culture shows gram-negative rods. Patient will be sent home with Macrobid. Due to interactions with Bactrim and warfarin, Macrobid was chosen. Continue to monitor for final culture and sensitivity and narrow antibiotics as needed. Patient was treated with 1 g of Rocephin IV daily. He denies urinary symptoms. Qualifiers: Urinary tract infection type: acute cystitis Hematuria presence: without hematuria Qualified Code(s): N30.00 - Acute cystitis without hematuria - Discharge Medications Prescriptions: Isosorbide MONOnitrate (24 HR) [Imdur] 30 mg PO DAILY #30 tab.er.24h Nitrofurantoin (BID) [Macrobid] 100 mg PO BID #14 capsule Ranolazine [Ranexa] 1,000 mg PO BID #120 tab.er.12h Home Medications: Omeprazole [PriLOSEC] 20 mg PO QAM 06/11/15 [History] Sertraline [Zoloft] 100 mg PO QAM 06/11/15 [History] Tamsulosin [Flomax] 0.4 mg PO QAM 06/11/15 [History] BuPROPion XL (24 HR) [Wellbutrin Xl] 150 mg PO QAM 07/06/15 [History] Lisinopril 5 mg PO BID 08/10/15 [History] Insulin Glargine,Hum.rec.anlog [Lantus Solostar] 20 unit SQ QAM 12/09/15 [ History] Multivitamin [Multivitamins] 1 tab PO DAILY 12/09/15 [History] traZODone [TraZODone] 50 mg PO HS 01/06/16 [History] Acetaminophen/Butalbital/Caffe [Fioricet] 1 each PO DAILY PRN 05/14/17 [History] Ezetimibe [Zetia] 10 mg PO DAILY 05/14/17 [History] Ferrous Sulfate [Iron] 325 mg PO DAILY 05/14/17 [History] Gabapentin [Neurontin] 100 mg PO HS 05/14/17 [History] Metformin HCl [Metformin HCl ER] 500 mg PO QPM 05/14/17 [History] Promethazine [Phenergan] 25 mg PO Q6HR PRN 05/14/17 [History] Topiramate [Topamax] 50 mg PO HS 05/14/17 [History] Warfarin [Coumadin] 5 mg PO WE 05/15/17 [History] Acetaminophen [Tylenol] 650 mg PO Q6HR PRN tab 05/18/17 [Rx] Aspirin Enteric Coated [Aspirin EC] 81 mg PO DAILY 08/17/17 [History] Atorvastatin Calcium [Lipitor] 80 mg PO HS 08/17/17 [History] Cyclobenzaprine HCl 5 mg PO HS PRN 08/17/17 [History] Levothyroxine Sodium [Synthroid] 300 mcg PO QAM 08/17/17 [History] Nitroglycerin 0.4 mg SL Q5MIN PRN #14 tab.subl 08/22/17 [Rx] Clopidogrel [Plavix] 75 mg PO DAILY #30 tablet 09/11/17 [Rx] Metoprolol [Lopressor] 12.5 mg PO BID #60 tablet 09/11/17 [Rx] Warfarin [Coumadin] 7.5 mg PO SUMOTUTHFRSA 09/25/17 [History] Amlodipine Besylate 10 mg PO DAILY #30 tablet 09/27/17 [Rx] Isosorbide MONOnitrate (24 HR) [Imdur] 30 mg PO DAILY #30 tab.er.24h 10/18/17 [ Rx] Nitrofurantoin (BID) [Macrobid] 100 mg PO BID #14 capsule 10/18/17 [Rx] Ranolazine [Ranexa] 1,000 mg PO BID #120 tab.er.12h 10/18/17 [Rx] Allergies/Adverse Reactions: 3 Allergy/AdvReac Type Severity Reaction Status Date / Time No Known Allergies Allergy Verified 10/17/17 16:24 Date of admission: 10/16/17 21:36 Primary care physician: Rd Mendoza MD Discharging clinician: Vielka Asher Anticipated date of discharge: 10/18/17 - Patient Status Disposition: Home, Self-Care Condition: Good Functional capacity at discharge: independent ambulation Overall status at discharge: patient is progressing back to baseline - Discharge Instructions Follow Up With: Rd Mendoza MD [Primary Care Provider] - (Office unable to schedule patient at this time due to past missed visits. ) Additional Instructions: Your prescriptions have been called to [facility]. Please follow up with your PCP in the next week for a recheck and with cardiology as scheduled. REturn to the ER as needed for any other problems or concerns, or if your symptoms return or worsen. Take your normal home medications as scheduled. Return to your normal diet and activities as tolerated. - Diet and Activity Activity: increase activity as tolerated Diet: advance to your usual diet Hospital course: Mr. Salmeron is a 77 year old male with PMH of CAD, diabetes, A. fib, hypertension, chronic anemia, nasopharyngeal cancer with trach, who presented to the emergency department with chest pain left-sided. He reports this is the same as his prior episodes of chest pain. He reported radiation to the left arm and left jaw. Patient has extensive history of multiple PCI's/CABG. Patient had cardiac catheter in August, and received MINDA to distal circumflex. Patient reports that he had not taken his medications that were increased and his last admission. After starting them here, he denies any chest pain. Patient is also being treated for urinary tract infection with ceftriaxone 1g IV daily. Preliminary culture shows GNR and patient will be sent home on Bactrim DS 1 tablet twice daily for 7 days. Patient's labs and vital signs are stable and within normal limits. Patient's blood pressure has improved since increasing medications. Prescriptions for Ranexa, Imdur, Macrobid sent to patient's pharmacy. Patient is stable and ready for discharge. - Time Spent with Patient Total time spent providing and/or coordinating discharge services: Less than 30 minutes - Constitutional Vitals: Temp Pulse Resp BP Pulse Ox 97.9 F 50 16 115/61 94 10/18/17 07:29 10/18/17 07:29 10/18/17 07:29 10/18/17 07:29 10/18/17 07:29 General appearance: Present: cooperative, A&O X 3, pleasant, answers questions appropriately. Absent: no acute distress - Head Head exam: Present: atraumatic, normal inspection, normocephalic - Eye Eye exam: Present: normal appearance, conjuntiva pink, sclera anicteric - Neck Neck exam general surgery: Present: supple, trachea midline. Absent: lymphadenopathy, tenderness - Respiratory Respiratory exam: Present: CTAB. Absent: accessory muscle use, chest wall tenderness, rales, respiratory distress, rhonchi, wheezes - Cardiovascular Cardiovascular exam: Present: RRR, +S1, +S2. Absent: diastolic murmur, gallop, rubs, systolic murmur - GI/Abdominal GI/Abdominal exam: Present: normal bowel sounds, soft. Absent: distended, hepatomegaly, tenderness - Extremities Exam Extremities exam: Present: normal capillary refill, warm, radial pulses palpable and symmetrical. Absent: calf tenderness, cyanotic, pedal edema - Neurological Exam Neurological exam: Present: alert, oriented X3, no focal deficits. Absent: facial droop, speech deficit - Skin Skin exam: Present: dry, intact, normal color, warm. Absent: rash
[2017-10-18] MEDS: Insulin LISPRO 300 UNITS/3 ML VIAL SQ SCH (08:46)
[2017-10-18] MEDS: Aspirin Enteric Coated 81 MG Tablet PO SCH (10:00)
[2017-10-18] MEDS: BuPROPion XL (24 HR) 150 MG TABLET PO SCH (10:00)
[2017-10-18] MEDS: Ranolazine 500 MG TAB.ER.12H PO SCH (10:00)
[2017-10-18] MEDS: amLODIPine 5 MG TABLET PO SCH (10:00)
[2017-10-18] MEDS: Insulin DETEMIR 100 UNIT/ML X5UNITS SQ SCH (10:01)
[2017-10-18] MEDS: Isosorbide MONOnitrate (24 HR) 30 MG TAB.ER.24H PO SCH (10:01)
[2017-10-18] MEDS: Multivit/Ca/Min/Fe/FA 1 TAB TABLET PO SCH (10:01)
[2017-10-18] MEDS ORDERED: *HR* Warfarin 5 MG TABLET PO SCH (18:00)
== END 2017-10-18 11:34 | disposition home or self-care (01) | DRG 303 ==
LOC: EMEROO 17:04 → 3BNU 17:04
PROVIDERS: ADMIT Internal Medicine; ATTEND Registered Nurse

== ENCOUNTER 2017-11-25 13:44 | Inpatient (IN) ==
--- NOTE | 2017-11-25 14:33 | Emergency Department Note ---
Disposition Clinical Impression: Numbness, Weakness Headache Qualifiers: Headache type: unspecified Headache chronicity pattern: acute headache Intractability: not intractable Qualified Code(s): R51 - Headache Disposition: Admitted As Inpatient Condition: Good Referrals: Peter Carlson MD [Primary Care Provider] - Forms: ED Satisfaction Letter Time of Disposition: 15:58 General Adult HPI - General Chief complaint: ED Headache Stated complaint: headache, right leg numbness Time Seen by Provider: 11/25/17 13:54 Source: patient Limitations: no limitations Nursing Notes Reviewed: Yes Vital Signs Reviewed: Yes - History of Present Illness HPI Narrative: Patient is a 77-year-old male that presents the emergency department with headache and right-sided numbness. States that this is been ongoing for the past 3 weeks. States that he has been prescribed analgesics from the emergency department for his headache and states that these seemed to help her short period of time but then the headache returns. He does state that he has had a previous right-sided stroke and the symptoms seem similar. Patient states that his headache is a 10 out of 10 and is a stabbing pain states that it seems to be worse when he coughs or when you touch the top of his head. Pain Scale: 10 - Related Data Home Medications Medication Instructions Recorded Confirmed Omeprazole [PriLOSEC] 20 mg PO QAM 06/11/15 10/17/17 Sertraline [Zoloft] 100 mg PO QAM 06/11/15 10/17/17 Tamsulosin [Flomax] 0.4 mg PO QAM 06/11/15 10/17/17 BuPROPion XL (24 HR) [Wellbutrin 150 mg PO QAM 07/06/15 10/17/17 Xl] Lisinopril 5 mg PO BID 08/10/15 10/17/17 Insulin Glargine,Hum.rec.anlog 20 unit SQ QAM 12/09/15 10/17/17 [Lantus Solostar] Multivitamin [Multivitamins] 1 tab PO DAILY 12/09/15 10/17/17 traZODone [TraZODone] 50 mg PO HS 01/06/16 10/17/17 Acetaminophen/Butalbital/Caffe 1 each PO DAILY PRN 05/14/17 10/17/17 [Fioricet] Ezetimibe [Zetia] 10 mg PO DAILY 05/14/17 10/17/17 Ferrous Sulfate [Iron] 325 mg PO DAILY 05/14/17 10/17/17 Gabapentin [Neurontin] 100 mg PO HS 05/14/17 10/17/17 Metformin HCl [Metformin HCl ER] 500 mg PO QPM 05/14/17 10/17/17 Promethazine [Phenergan] 25 mg PO Q6HR PRN 05/14/17 10/17/17 Topiramate [Topamax] 50 mg PO HS 05/14/17 10/17/17 Warfarin [Coumadin] 5 mg PO WE 05/15/17 10/17/17 Aspirin Enteric Coated [Aspirin EC] 81 mg PO DAILY 08/17/17 10/17/17 Atorvastatin Calcium [Lipitor] 80 mg PO HS 08/17/17 10/17/17 Cyclobenzaprine HCl 5 mg PO HS PRN 08/17/17 10/17/17 Levothyroxine Sodium [Synthroid] 300 mcg PO QAM 08/17/17 10/17/17 Warfarin [Coumadin] 7.5 mg PO SUMOTUTHFRSA 09/25/17 10/17/17 Previous Rx's Medication Instructions Recorded Acetaminophen [Tylenol] 650 mg PO Q6HR PRN tab 05/18/17 Nitroglycerin 0.4 mg SL Q5MIN PRN #14 tab.subl 08/22/17 Clopidogrel [Plavix] 75 mg PO DAILY #30 tablet 09/11/17 Metoprolol [Lopressor] 12.5 mg PO BID #60 tablet 09/11/17 Amlodipine Besylate 10 mg PO DAILY #30 tablet 09/27/17 Isosorbide MONOnitrate (24 HR) 30 mg PO DAILY #30 tab.er.24h 10/18/17 [Imdur] Nitrofurantoin (BID) [Macrobid] 100 mg PO BID #14 capsule 10/18/17 Ranolazine [Ranexa] 1,000 mg PO BID #120 tab.er.12h 10/18/17 Amoxicillin/Clavulanate [Augmentin] 875 mg PO BIDWM #20 tablet 11/04/17 HYDROcodone/Acet 5/325 mg [[place] 1 - 2 tab PO QID PRN 3 Days #15 tab 11/21/17 5-325 mg] Allergies Allergy/AdvReac Type Severity Reaction Status Date / Time No Known Allergies Allergy Verified 11/21/17 10:47 All systems ED: reviewed and negative except as stated. Cardiovascular: Denies: chest pain Respiratory: Reports: sputum production Neurological: Reports: headache, weakness (Right-sided), numbness (Right-sided) Past Medical History - Past Medical History Medical history: Reports: atrial fibrillation, cancer, coronary artery disease, CVA, diabetes, hypertension, myocardial infarction, peripheral artery disease, SVT, thyroid disease Surgical history: Reports: angioplasty/stent, appendectomy, coronary bypass ( CABG), herniorrhaphy, LE vascular intervention, tracheostomy Psychiatric history: Reports: no psych history - Social History Smoking Status: Former smoker Smokeless Tobacco Status: No Alcohol use: Reports: none Drug use: Reports: none Physical Exam - General Limitations: no limitations General appearance: alert, in no apparent distress - Head Head exam: atraumatic, normocephalic - Eye Eye exam: Present: normal appearance, EOMI - Neck Neck exam: Present: other (Patient has a tracheostomy.) - Chest Chest inspection: Present: other (Patient is in midline scar from previous open heart surgery.) - Respiratory Respiratory exam: Present: other (Crackles in the left lung.) - Cardiovascular Cardiovascular exam: Present: regular rate, normal rhythm, normal heart sounds, +S1, +S2 - Abdominal Exam Abdominal exam: Present: soft, Non-Tender, normal bowel sounds - Neurological Exam Neurological exam: Present: alert - Expanded Neurological Exam Speech: Present: fluid speech Cranial nerves: EOM function (II, III, IV, ): Normal, facial sensation (V): Abnormal Right, facial palsy (VII): Normal, gag reflex (IX): Normal, spinal accessory function (XI): Normal, tongue deviation (XII): Normal Cerebellar function: finger to nose: Normal, heel to merrill: Abnormal Right ( Patient is unable to perform tasks, right) Motor strength - LUE: 5/5 Motor strength - RUE: 4/5 Motor strength - LLE: 5/5 Motor strength - RLE: 4/5 Upper motor neuron exam: pronator drift: Absent bilaterally Sensory exam upper extremity: light touch: Abnormal Right (Has decreased sensation on the right) Sensory exam lower extremity: light touch: Abnormal Right (She has decreased sensation on the right) Coma Scale Eye Opening: Spontaneous Coma Scale Motor Response: Obeys Commands Coma Scale Verbal Response: Oriented Coma Scale Total: 15 - Psychiatric Psychiatric exam: Present: normal affect, normal mood - Skin Skin exam: Present: warm, dry, intact Course Vital Signs Temperature 98.6 F 11/25/17 13:46 Pulse Rate 70 11/25/17 13:46 Respiratory Rate 18 11/25/17 13:46 Blood Pressure 130/55 11/25/17 13:46 O2 Sat by Pulse Oximetry 98 11/25/17 13:46 Temperature 98.6 F 11/25/17 13:46 Pulse Rate 67 11/25/17 15:04 Respiratory Rate 16 11/25/17 15:04 Blood Pressure 155/61 11/25/17 15:04 O2 Sat by Pulse Oximetry 96 11/25/17 15:04 Oxygen Delivery Oxygen Delivery Room Air Medical Decision Making - MDM Narrative Medical decision making narrative: The patient's presenting symptoms and concern for possible neurologic involvement will obtain a CBC, BMP, coags, urinalysis chest x-ray and EKG. We will also obtain a CT scan of the patient's head area and the CT scan of the head was negative for any acute intracranial abnormalities. Urinalysis showed elevated white cells and leuk esterase and this will be sent for urine culture. Patient's INR was 3.1. Mildly decreased GFR. Patient's chest echo showed no acute abnormality. The patient will need to be admitted to the hospital for further evaluation and management. I called and spoke with the hospice and they requested that we speak to neurology and this will be done and the patient will be admitted to the hospital for further evaluation and management this time. I spoke with neurology and they are in agreement with the patient being admitted to medicine and I will place a consult for neurology. The patient is stable at this time and will be admitted. Head CT 11/25/17 13:54 IMPRESSION: No acute intracranial abnormality. D/ / Patsy Alejandro Cha, MD / Patsy Alejandro Cha, MD Interpreting Provider: Patsy Alejandro Cha, MD Chest X-Ray 11/25/17 14:32 IMPRESSION: Stable portable study. D/ / Patsy Alejandro Cha, MD / Patsy Alejandro Cha, MD Interpreting Provider: Patsy Alejandro Cha, MD 1530 hrs.: Labs are back. He does have symptoms of UTI and also bacteria and blood in the urine. We will culture that. Mika bring him into the hospital no acute abnormal CT.[email or web address]. - Medical Records Medical records reviewed: Yes I reviewed the patient's medical records. - Lab Data Lab results reviewed: Yes I reviewed the patient's lab results. Result diagrams: 11/25/17 14:45 11/25/17 14:45 Lab Results 11/25/17 11/25/17 11/25/17 Range/Units 14:45 14:45 14:45 WBC 6.4 (4.3-11.1) K/mcL RBC 4.23 (4.19-5.50) M/mcL Hgb 11.9 L (12.9-16.9) g/dL Hct 38.1 (37.5-50.1) % MCV 90.1 (83.0-100.0) fL MCH 28.1 (28.0-33.3) pg MCHC 31.2 L (31.6-35.5) g/dL RDW 14.8 H (11.5-14.5) % Plt Count 259 (140-400) K/mcL MPV 10.0 (9.4-12.4) fL Immature Gran % 0.5 (0-4) % Seg Neutrophils % 60.4 % Lymphocytes % 18.3 % Monocytes % 12.1 % Eosinophils % 8.1 % Basophils % 0.6 % Neutrophils # 3.9 (1.6-8.9) K/mcL Lymphocytes # 1.2 (0.6-4.6) K/mcL Monocytes # 0.8 (0.0-1.3) K/mcL Eosinophils # 0.5 (0.0-0.6) K/mcL Basophils # 0.0 (0.0-0.2) K/mcL PT 34.3 H (9.4-12.1) Seconds INR 3.1 APTT 48.5 H (26.0-36.0) Seconds Sodium 135 L (136-145) mEq/L Potassium 4.8 (3.5-5.1) mEq/L Chloride 104 (98-107) mEq/L Carbon Dioxide 26 (23-29) mEq/L BUN 41 H (8-23) mg/dL Creatinine 1.29 (0.70-1.30) mg/dL Est GFR ( Amer) > 60 (> 60) Est GFR (Non-Af Amer) 54 L (> 60) BUN/Creatinine Ratio 32 H (6-26) Glucose 192 H (70-105) mg/dL Calculated Osmolality 295 (280-300) Calcium 9.1 (8.6-10.3) mg/dL Urine Color (Yellow) Urine Clarity (Clear) Urine pH (5.0-8.0) pH Units Ur Specific [place] (1.010-1.025) Urine Protein (Neg-Trace) mg/dL Urine Glucose (UA) (Normal) mg/dL Urine Ketones (Negative) mg/dL Urine Blood (Negative) Urine Nitrite (Negative) Urine Bilirubin (Negative) Urine Urobilinogen (Normal) mg/dL Ur Leukocyte Esterase (Negative) Urine Microscopic RBC (0-3) per hpf Urine Microscopic WBC (0-3) per hpf Ur Squamous Epith Cells (None-Few) per lpf Urine Bacteria (None-Few) per hpf Hyaline Casts (None-Few) per lpf Ur Culture Indicated? (NO) 11/25/17 Range/Units 14:55 WBC (4.3-11.1) K/mcL RBC (4.19-5.50) M/mcL Hgb (12.9-16.9) g/dL Hct (37.5-50.1) % MCV (83.0-100.0) fL MCH (28.0-33.3) pg MCHC (31.6-35.5) g/dL RDW (11.5-14.5) % Plt Count (140-400) K/mcL MPV (9.4-12.4) fL Immature Gran % (0-4) % Seg Neutrophils % % Lymphocytes % % Monocytes % % Eosinophils % % Basophils % % Neutrophils # (1.6-8.9) K/mcL Lymphocytes # (0.6-4.6) K/mcL Monocytes # (0.0-1.3) K/mcL Eosinophils # (0.0-0.6) K/mcL Basophils # (0.0-0.2) K/mcL PT (9.4-12.1) Seconds INR APTT (26.0-36.0) Seconds Sodium (136-145) mEq/L Potassium (3.5-5.1) mEq/L Chloride (98-107) mEq/L Carbon Dioxide (23-29) mEq/L BUN (8-23) mg/dL Creatinine (0.70-1.30) mg/dL Est GFR ( Amer) (> 60) Est GFR (Non-Af Amer) (> 60) BUN/Creatinine Ratio (6-26) Glucose (70-105) mg/dL Calculated Osmolality (280-300) Calcium (8.6-10.3) mg/dL Urine Color Yellow (Yellow) Urine Clarity Cloudy A (Clear) Urine pH 6.0 (5.0-8.0) pH Units Ur Specific [place] 1.020 (1.010-1.025) Urine Protein Negative (Neg-Trace) mg/dL Urine Glucose (UA) Normal (Normal) mg/dL Urine Ketones Negative (Negative) mg/dL Urine Blood Negative (Negative) Urine Nitrite Negative (Negative) Urine Bilirubin Negative (Negative) Urine Urobilinogen Normal (Normal) mg/dL Ur Leukocyte Esterase Moderate H (Negative) Urine Microscopic RBC 5-15 H (0-3) per hpf Urine Microscopic WBC TNTC H (0-3) per hpf Ur Squamous Epith Cells Many H (None-Few) per lpf Urine Bacteria Few (None-Few) per hpf Hyaline Casts None Seen (None-Few) per lpf Ur Culture Indicated? NO. (NO) - Radiology Data Radiology results reviewed: Yes I reviewed the patient's radiology results. Head CT 11/25/17 13:54 IMPRESSION: No acute intracranial abnormality. D/ / Patsy Alejandro Cha, MD / Patsy Alejandro Cha, MD Interpreting Provider: Patsy Alejandro Cha, MD Chest X-Ray 11/25/17 14:32 IMPRESSION: Stable portable study. D/ / Patsy Alejandro Cha, MD / Patsy Alejandro Cha, MD Interpreting Provider: Patsy Alejandro Cha, MD - EKG Data EKG #1 EKG attestation: Yes I reviewed and interpreted this EKG. EKG results narrative: EKG showed a sinus rhythm at a rate of 61 bpm, GA interval of 198, QRS duration of 113, QTC of 418. No evidence of STEMI and EKG. This was compared to previous EKG on 10/16/17 which showed a sinus rhythm at 93 bpm.
[2017-11-25 14:54] LABS: Basophils % 0.6 %; Eosinophils # 0.5 K/mcL (0.0-0.6); Eosinophils % 8.1 %; Hematocrit 38.1 % (37.5-50.1); Hemoglobin 11.9 g/dL (12.9-16.9); Immature Granulocytes % 0.5 % (0-4); Lymphocytes # 1.2 K/mcL (0.6-4.6); Lymphocytes % 18.3 %; Mean Corpuscular HGB Conc 31.2 g/dL (31.6-35.5); Mean Corpuscular Hemoglobin 28.1 pg (28.0-33.3); Mean Corpuscular Volume 90.1 fL (83.0-100.0); Monocytes # 0.8 K/mcL (0.0-1.3); Monocytes % 12.1 %; Neutrophils # 3.9 K/mcL (1.6-8.9); Platelet Count 259 K/mcL (140-400); Red Blood Count 4.23 M/mcL (4.19-5.50); Red Cell Distribution Width 14.8 % (11.5-14.5); Segmented Neutrophils % 60.4 %
[2017-11-25 14:58] LABS: INR 3.1; Prothrombin Time 34.3 Seconds (9.4-12.1)
[2017-11-25 15:00] LABS: Activated Partial Thrombo Time 48.5 Seconds (26.0-36.0)
[2017-11-25 15:03] LABS: Bilirubin,Urine Negative (Negative); Blood,Urine Negative (Negative); Clarity,Urine Cloudy (Clear); Color,Urine Yellow (Yellow); Glucose,Urine (UA) Normal (Normal); Ketones,Urine Negative (Negative); Leukocyte Esterase,Urine Moderate (Negative); Nitrite,Urine Negative (Negative); Protein,Urine Negative (Neg-Trace); Urobilinogen,Urine Normal (Normal)
[2017-11-25 15:05] LABS: Bacteria,Urine Few per hpf (None-Few); Hyaline Casts,Urine None Seen per lpf (None-Few); Squamous Epithelial Cell,Urine Many per lpf (None-Few); WBC,Urine TNTC per hpf (0-3)
[2017-11-25 15:06] LABS: Calcium 9.1 mg/dL (8.6-10.3); Carbon Dioxide 26 mEq/L (23-29); Chloride 104 mEq/L (98-107); Potassium 4.8 mEq/L (3.5-5.1); Sodium 135 mEq/L (136-145)
[2017-11-25 15:12] LABS: BUN/Creatinine Ratio 32 (6-26); Blood Urea Nitrogen 41 mg/dL (8-23); Glucose 192 mg/dL (70-105); Osmolality,Calculated 295 (280-300); eGFR For African Americans > 60 (> 60); eGFR For Non-African Americans 54 (> 60)
--- NOTE | 2017-11-25 15:33 | Emergency Department Note ---
Disposition Clinical Impression: Headache, Numbness, Weakness Disposition: Admitted As Inpatient Condition: Good General Adult HPI - General Chief complaint: ED Headache Stated complaint: headache, right leg numbness Time Seen by Provider: 11/25/17 13:54 Source: patient Limitations: no limitations Nursing Notes Reviewed: Yes Vital Signs Reviewed: Yes - History of Present Illness Pain Scale: 10 - Related Data Home Medications Medication Instructions Recorded Confirmed Omeprazole [PriLOSEC] 20 mg PO QAM 06/11/15 11/25/17 Tamsulosin [Flomax] 0.4 mg PO QAM 06/11/15 11/25/17 Lisinopril 10 mg PO BID 08/10/15 11/25/17 Insulin Glargine,Hum.rec.anlog 20 unit SQ QAM 12/09/15 11/25/17 [Lantus Solostar] Acetaminophen/Butalbital/Caffe 1 each PO DAILY PRN 05/14/17 11/25/17 [Fioricet] Ferrous Sulfate [Iron] 325 mg PO DAILY 05/14/17 11/25/17 Gabapentin [Neurontin] 100 mg PO HS 05/14/17 11/25/17 Promethazine [Phenergan] 25 mg PO Q6HR PRN 05/14/17 11/25/17 Warfarin [Coumadin] 5 mg PO WE 05/15/17 11/25/17 Aspirin Enteric Coated [Aspirin EC] 81 mg PO DAILY 08/17/17 11/25/17 Atorvastatin Calcium [Lipitor] 80 mg PO HS 08/17/17 11/25/17 Levothyroxine Sodium [Synthroid] 300 mcg PO QAM 08/17/17 11/25/17 Warfarin [Coumadin] 7.5 mg PO SUMOTUTHFRSA 09/25/17 11/25/17 Previous Rx's Medication Instructions Recorded Nitroglycerin 0.4 mg SL Q5MIN PRN #14 tab.subl 08/22/17 Metoprolol [Lopressor] 12.5 mg PO BID #60 tablet 09/11/17 Isosorbide MONOnitrate (24 HR) 30 mg PO DAILY #30 tab.er.24h 10/18/17 [Imdur] Ranolazine [Ranexa] 1,000 mg PO BID #120 tab.er.12h 10/18/17 HYDROcodone/Acet 5/325 mg [[place] 1 - 2 tab PO QID PRN 3 Days #15 tab 11/21/17 5-325 mg] Allergies Allergy/AdvReac Type Severity Reaction Status Date / Time No Known Allergies Allergy Verified 11/21/17 10:47 Cardiovascular: Denies: chest pain Respiratory: Reports: sputum production Neurological: Reports: headache, weakness (Right-sided), numbness (Right-sided) Past Medical History - Past Medical History Medical history: Reports: atrial fibrillation, cancer, coronary artery disease, CVA, diabetes, hypertension, myocardial infarction, peripheral artery disease, SVT, thyroid disease Surgical history: Reports: angioplasty/stent, appendectomy, coronary bypass ( CABG), herniorrhaphy, LE vascular intervention, tracheostomy Psychiatric history: Reports: no psych history - Social History Smoking Status: Former smoker Smokeless Tobacco Status: No Alcohol use: Reports: none Drug use: Reports: none Physical Exam - General Limitations: no limitations General appearance: alert, in no apparent distress Course Vital Signs Temperature 98.6 F 11/25/17 13:46 Pulse Rate 70 11/25/17 13:46 Respiratory Rate 18 11/25/17 13:46 Blood Pressure 130/55 11/25/17 13:46 O2 Sat by Pulse Oximetry 98 11/25/17 13:46 Temperature 98.4 F 11/25/17 17:28 Pulse Rate 70 11/25/17 17:28 Respiratory Rate 18 11/25/17 17:28 Blood Pressure 162/60 11/25/17 17:28 O2 Sat by Pulse Oximetry 100 11/25/17 17:28 Oxygen Delivery Oxygen Delivery Room Air Medical Decision Making - MDM Narrative Medical decision making narrative: This documentation is done with the assistance of Dragon dictation. Despite efforts made to ensure accuracy, there may be inaccuracies in slab inspector or spelling and typographical errors. I examined this patient and my medical decision-making was reviewed with the Resident Physician. I agree with the documented findings, disposition and treatment plan as described except to the extent set forth below. Patient seen and evaluated on arrival with Dr. Smith and myself, agree with his evaluation and management plan, supervising the patient's stay. Patient presents today with right-sided weakness and also some we describes as headache. History of stroke in the past. His episodes will remove the right side than other times really does not get so well. Symptoms are going on for 3-4 days nonacute. We talked about a headache he has more of a hypersensitivity of the scalp is even his hair hurts. He is denies any neck pain he denies any abdominal pain or back pain. Regarding CT workup and reassess. Josette who needed admission. He is in agreement with plan. - Lab Data Result diagrams: 11/25/17 14:45 11/25/17 14:45 Lab Results 11/25/17 11/25/17 11/25/17 Range/Units 14:45 14:45 14:45 WBC 6.4 (4.3-11.1) K/mcL RBC 4.23 (4.19-5.50) M/mcL Hgb 11.9 L (12.9-16.9) g/dL Hct 38.1 (37.5-50.1) % MCV 90.1 (83.0-100.0) fL MCH 28.1 (28.0-33.3) pg MCHC 31.2 L (31.6-35.5) g/dL RDW 14.8 H (11.5-14.5) % Plt Count 259 (140-400) K/mcL MPV 10.0 (9.4-12.4) fL Immature Gran % 0.5 (0-4) % Seg Neutrophils % 60.4 % Lymphocytes % 18.3 % Monocytes % 12.1 % Eosinophils % 8.1 % Basophils % 0.6 % Neutrophils # 3.9 (1.6-8.9) K/mcL Lymphocytes # 1.2 (0.6-4.6) K/mcL Monocytes # 0.8 (0.0-1.3) K/mcL Eosinophils # 0.5 (0.0-0.6) K/mcL Basophils # 0.0 (0.0-0.2) K/mcL PT 34.3 H (9.4-12.1) Seconds INR 3.1 APTT 48.5 H (26.0-36.0) Seconds Sodium 135 L (136-145) mEq/L Potassium 4.8 (3.5-5.1) mEq/L Chloride 104 (98-107) mEq/L Carbon Dioxide 26 (23-29) mEq/L BUN 41 H (8-23) mg/dL Creatinine 1.29 (0.70-1.30) mg/dL Est GFR ( Amer) > 60 (> 60) Est GFR (Non-Af Amer) 54 L (> 60) BUN/Creatinine Ratio 32 H (6-26) Glucose 192 H (70-105) mg/dL Calculated Osmolality 295 (280-300) Calcium 9.1 (8.6-10.3) mg/dL Urine Color (Yellow) Urine Clarity (Clear) Urine pH (5.0-8.0) pH Units Ur Specific [place] (1.010-1.025) Urine Protein (Neg-Trace) mg/dL Urine Glucose (UA) (Normal) mg/dL Urine Ketones (Negative) mg/dL Urine Blood (Negative) Urine Nitrite (Negative) Urine Bilirubin (Negative) Urine Urobilinogen (Normal) mg/dL Ur Leukocyte Esterase (Negative) Urine Microscopic RBC (0-3) per hpf Urine Microscopic WBC (0-3) per hpf Ur Squamous Epith Cells (None-Few) per lpf Urine Bacteria (None-Few) per hpf Hyaline Casts (None-Few) per lpf Ur Culture Indicated? (NO) 11/25/17 Range/Units 14:55 WBC (4.3-11.1) K/mcL RBC (4.19-5.50) M/mcL Hgb (12.9-16.9) g/dL Hct (37.5-50.1) % MCV (83.0-100.0) fL MCH (28.0-33.3) pg MCHC (31.6-35.5) g/dL RDW (11.5-14.5) % Plt Count (140-400) K/mcL MPV (9.4-12.4) fL Immature Gran % (0-4) % Seg Neutrophils % % Lymphocytes % % Monocytes % % Eosinophils % % Basophils % % Neutrophils # (1.6-8.9) K/mcL Lymphocytes # (0.6-4.6) K/mcL Monocytes # (0.0-1.3) K/mcL Eosinophils # (0.0-0.6) K/mcL Basophils # (0.0-0.2) K/mcL PT (9.4-12.1) Seconds INR APTT (26.0-36.0) Seconds Sodium (136-145) mEq/L Potassium (3.5-5.1) mEq/L Chloride (98-107) mEq/L Carbon Dioxide (23-29) mEq/L BUN (8-23) mg/dL Creatinine (0.70-1.30) mg/dL Est GFR ( Amer) (> 60) Est GFR (Non-Af Amer) (> 60) BUN/Creatinine Ratio (6-26) Glucose (70-105) mg/dL Calculated Osmolality (280-300) Calcium (8.6-10.3) mg/dL Urine Color Yellow (Yellow) Urine Clarity Cloudy A (Clear) Urine pH 6.0 (5.0-8.0) pH Units Ur Specific [place] 1.020 (1.010-1.025) Urine Protein Negative (Neg-Trace) mg/dL Urine Glucose (UA) Normal (Normal) mg/dL Urine Ketones Negative (Negative) mg/dL Urine Blood Negative (Negative) Urine Nitrite Negative (Negative) Urine Bilirubin Negative (Negative) Urine Urobilinogen Normal (Normal) mg/dL Ur Leukocyte Esterase Moderate H (Negative) Urine Microscopic RBC 5-15 H (0-3) per hpf Urine Microscopic WBC TNTC H (0-3) per hpf Ur Squamous Epith Cells Many H (None-Few) per lpf Urine Bacteria Few (None-Few) per hpf Hyaline Casts None Seen (None-Few) per lpf Ur Culture Indicated? NO. (NO)
[2017-11-25] MEDS ORDERED: *HR* FentaNYL (PF) 100 MCG/2 ML VIAL IVP ONE (15:57)
[2017-11-25] MEDS ORDERED: Nitroglycerin 0.4 MG TAB.SUBL SL PRN (16:51)
[2017-11-25] MEDS ORDERED: Naloxone 0.4 MG/ML INJ IVP PRN ×2 (16:55→17:30)
--- NOTE | 2017-11-25 17:21 | Internal Med History&Physical ---
<Tonny Egan - Last Filed: 11/25/17 17:19> Date of Encounter: 11/25/17 Time of Encounter: 17:19 Assessment and Plan (1) CVA (cerebral vascular accident) Current visit: Yes Status: Suspected Suspected CVA, LKW 3-days ago, New RUE, RLE numbness, tingling and weakness, as well as h/a rated a 10/10 and hearing loss in his Rt ear. H/O CVA He reports symptoms are similar to his last CVA. CT head today unremarkable no mass effect, hemorrhage or midline shift Risk factors include atrial fibrillation, prior CVA, diabetes, and hypertension. -CTA head and neck now -MRI head/brain wo contrast -Recent TTE in 09/01 unremarkable -PT/INR therapeutic -Lipid panel in am, CBCD, BMP in am -EKG unremarkable -UA questionable but looks contaminated, send for culture. No ATB as of now -Resume antiHTN meds, statin, and ASA -Neuro checks Q4h -NIHSS -Dysphagia screen now -Continuous tele, Spo2 monitoring -Coumadin per PT -Consult neurology-ED physician reported they spoke with neurology who has agreed to see the patient Qualifiers: CVA mechanism: unspecified Qualified Code(s): I63.9 - Cerebral infarction, unspecified (2) Headache Current visit: Yes Status: Acute Persistent 10/10 for the last couple of day with new neurologic deficit. Improved with Fentanyl in the ED. Unknown etiology, no BP elevation, CT negative for mass, hemorrhage or shift. Concern for CVA -consult neuro -fentanyl PRN Qualifiers: Headache type: unspecified Headache chronicity pattern: acute headache Intractability: not intractable Qualified Code(s): R51 - Headache (3) Numbness Current visit: Yes Status: Acute see plan above (4) Weakness Current visit: Yes Status: Acute see plan above (5) Atrial fibrillation Current visit: Yes Status: Chronic stable, continue coumadin Qualifiers: Atrial fibrillation type: paroxysmal Qualified Code(s): I48.0 - Paroxysmal atrial fibrillation (6) CAD (coronary artery disease) Current visit: Yes Status: Chronic Continue ASA, statin, BB, TEREZA Qualifiers: Coronary Disease-Associated Artery/Lesion type: bypass graft [place] vs. transplanted heart: [place] heart Associated angina: with stable angina Qualified Code(s): I25.708 - Atherosclerosis of coronary artery bypass graft(s) , unspecified, with other forms of angina pectoris (7) Congestive heart failure Current visit: Yes Status: Chronic stable Qualifiers: Qualified Code(s): I50.32 - Chronic diastolic (congestive) heart failure (8) Diabetes Current visit: Yes Status: Chronic Continue basal insulin Qualifiers: Diabetes mellitus type: type 2 Diabetes mellitus complication status: without complication Diabetes mellitus senior living insulin use: with termite control technician use Qualified Code(s): E11.9 - Type 2 diabetes mellitus without complications ; Z79.4 - keno terminal operator (current) use of insulin; Z79.4 - keno terminal operator (current) use of insulin; Z79.4 - keno terminal operator (current) use of insulin; Z79.4 - USP ( current) use of insulin (9) Hypertension Current visit: Yes Status: Chronic stable, continue antiHTN Qualifiers: Hypertension type: essential hypertension Qualified Code(s): I10 - Essential (primary) hypertension (10) Hypothyroidism, unspecified Current visit: Yes Status: Chronic synthroid Qualifiers: Hypothyroidism type: other Qualified Code(s): E03.8 - Other specified hypothyroidism (11) DVT prophylaxis Current visit: Yes Status: Acute Coumadin per PT Internal Medicine - H&P: HPI Chief complaint: Right upper and lower extremity weakness, intense headache, concern for CVA Admitted From: Home Plans for Post Hospital Care: Home History of present illness: Mr. Salmeron is a 77 year old male with a PMH of atrial fibrillation, cancer, coronary artery disease, CVA, diabetes, hypertension, myocardial infarction, peripheral artery disease, SVT, thyroid disease, who presents to [facility] today with persistent 10/10 h/a x10 days, and new Rt sided numbness, tingling, and weakness. He reports that he is unable to lift his leg and is having balance difficulty d/t weakness. His LKW was 3-days ago. He has a h/o of CVA with right sided deficits but reports that the prior deficits had completely resolved. He reporst that these symptoms are new. He notes that these are the same symptoms he experienced with his last CVA. He reports that his BP has been stable. He denies any CP, SOB, N/V/D, Abdominal pain or unilateral extremity swelling or pain. He does admits to dysuria but denies any flank pain. CT head unremarkable. Past Med Surg Social Fam HX - Past Medical History Medical history: atrial fibrillation, cancer, coronary artery disease, CVA, diabetes, hypertension, myocardial infarction, peripheral artery disease, SVT, thyroid disease Psychiatric history: no psych history - Past Surgical History Surgical History: angioplasty/stent, appendectomy, coronary bypass (CABG), herniorrhaphy, LE vascular intervention, tracheostomy - Social History Smoking Status: Former smoker Smokeless Tobacco Status: No Alcohol use: none Drug use: none - Family History Mother Living Status: Hx Family Cardiac Disorders: No Hx Family Respiratory Disorders: No Hx Family Cancer: No Hx Family GI Disorders: No Hx Family Endocrine Disorder: No Hx Family Neuromuscular Disorders: No Hx Family Neurologic Disorders: No Hx Family HEENT Disorders: No Hx Family Autoimmune Disorders: No Father Living Status: Hx Family Cardiac Disorders: No Hx Family Respiratory Disorders: No Hx Family Cancer: No Hx Family GI Disorders: No Hx Family Endocrine Disorder: No Hx Family Neuromuscular Disorders: No Hx Family Neurologic Disorders: No Hx Family HEENT Disorders: No Hx Family Autoimmune Disorders: No Sister Living Status: Hx Family Cancer: Yes (lung cancer) Internal Medicine - H&P: Meds Omeprazole [PriLOSEC] 20 mg PO QAM 06/11/15 [History] Tamsulosin [Flomax] 0.4 mg PO QAM 06/11/15 [History] Lisinopril 10 mg PO BID 08/10/15 [History] Insulin Glargine,Hum.rec.anlog [Lantus Solostar] 20 unit SQ QAM 12/09/15 [ History] Acetaminophen/Butalbital/Caffe [Fioricet] 1 each PO DAILY PRN 05/14/17 [History] Ferrous Sulfate [Iron] 325 mg PO DAILY 05/14/17 [History] Gabapentin [Neurontin] 100 mg PO HS 05/14/17 [History] Promethazine [Phenergan] 25 mg PO Q6HR PRN 05/14/17 [History] Warfarin [Coumadin] 5 mg PO WE 05/15/17 [History] Aspirin Enteric Coated [Aspirin EC] 81 mg PO DAILY 08/17/17 [History] Atorvastatin Calcium [Lipitor] 80 mg PO HS 08/17/17 [History] Levothyroxine Sodium [Synthroid] 300 mcg PO QAM 08/17/17 [History] Nitroglycerin 0.4 mg SL Q5MIN PRN #14 tab.subl 08/22/17 [Rx] Metoprolol [Lopressor] 12.5 mg PO BID #60 tablet 09/11/17 [Rx] Warfarin [Coumadin] 7.5 mg PO SUMOTUTHFRSA 09/25/17 [History] Isosorbide MONOnitrate (24 HR) [Imdur] 30 mg PO DAILY #30 tab.er.24h 10/18/17 [ Rx] Ranolazine [Ranexa] 1,000 mg PO BID #120 tab.er.12h 10/18/17 [Rx] HYDROcodone/Acet 5/325 mg [[place] 5-325 mg] 1 - 2 tab PO QID PRN 3 Days #15 tab 11/21/17 [Rx] 3 Allergy/AdvReac Type Severity Reaction Status Date / Time No Known Allergies Allergy Verified 11/21/17 10:47 All Systems PM: A 10-system review of systems was performed and is negative for pertinent findings except as documented above in the HPI. - Constitutional Constitutional: no chills, no fever(s), no night sweats - Cardiovascular Cardiovascular ROS IM: irregular heart rhythm (Chronic, history of A. fib), no chest pain, no diaphoresis, no dyspnea, no edema, no lightheadedness, no palpitations, no syncope - Respiratory Respiratory: no cough, no dyspnea, no wheezing, no excessive phlegm production - Gastrointestinal Gastrointestinal: no abdominal pain, no diarrhea, no hematemesis, no hematochezia, no melena, no nausea, no vomiting - Musculoskeletal Musculoskeletal ROS IM: no numbness, no tingling - Integumentary Integumentary IM: no rash, no unusual bruising - Neurological Neurological ROS: as per HPI, abnormal gait, abnormal hearing (Hearing loss in right ear), dizziness, focal weakness (Right upper and lower extremity), headache(s), no numbness, no tingling - Constitutional Vitals: Temp Pulse Resp BP Pulse Ox 98.6 F 59 20 107/64 96 11/25/17 13:46 11/25/17 16:07 11/25/17 16:55 11/25/17 16:55 11/25/17 16:07 General appearance: Present: cooperative, A&O X 3, no acute distress, answers questions appropriately - Head Head exam: Present: atraumatic, normocephalic - Eye Eye exam: Present: PERRL, conjuntiva pink, sclera anicteric Pupils: Present: PERRL - Neck Neck exam general surgery: Absent: lymphadenopathy Additional comments: Tracheostomy s/p head and neck cancer - Respiratory Respiratory exam: Present: CTAB. Absent: accessory muscle use, rales, rhonchi, wheezes - Cardiovascular Cardiovascular exam: Present: RRR, +S1, +S2. Absent: diastolic murmur, gallop, rubs, systolic murmur - GI/Abdominal GI/Abdominal exam: Present: normal bowel sounds, soft, no peritoneal signs. Absent: distended, tenderness - Extremities Exam Extremities exam: Present: normal capillary refill, normal inspection, warm, radial pulses palpable and symmetrical. Absent: calf tenderness, cyanotic, pedal edema, tenderness - Neurological Exam Neurological exam: Present: CN II-XII intact, oriented X3. Absent: no focal deficits, strengths equal and symetr throughout, pronater drift, facial droop, speech deficit - Expanded Neurological Exam Neurological exam expanded: Absent: expressive aphasia, receptive aphasia Patient oriented to: Present: person, place, time Speech: Absent: slurred (NONE NOW BUT REPORTS HE HAD IT PREVIOUSLY; INTERMITTENT X 3-DAYS) Cranial Nerves: EOM's intact PM: Normal, gag reflex PM: Normal, nystagmus PM: Normal, tongue deviation PM: Normal Cerebellar function: finger to nose: Normal, heel to merrill: Abnormal Right Upper motor neuron: Babinski sign: Normal, Ethan neglect: Normal, pronator drift : Normal, sensory extinction: Normal Neuro motor strength exam: LUE: 5, RUE: 3, LLE: 4, RLE: 3 Coma Scale Eye Opening: Spontaneous Coma Scale Motor Response: Obeys Commands Coma Scale Verbal Response: Oriented Coma Scale Total: 15 - Skin Skin exam: Present: dry, intact Internal Med - H&P Results - Labs CBC & Chem 7: 11/25/17 14:45 11/25/17 14:45 - EKG Data -: EKG Interpreted by Myself EKG shows normal: sinus rhythm Rate: normal - EKG Data EKG comments: NSR rate 61, no ST elevation or depression 11/25/17 17:37 - Impressions Impressions Head CT 11/25/17 13:54 IMPRESSION: No acute intracranial abnormality. D/ / Patsy Alejandro Cha, MD / Patsy Alejandro Cha, MD Interpreting Provider: Patsy Alejandro Cha, MD Chest X-Ray 11/25/17 14:32 IMPRESSION: Stable portable study. D/ / Patsy Alejandro Cha, MD / Patsy Alejandro Cha, MD Interpreting Provider: Patsy Alejandro Cha, MD <Darrius Dunn T - Last Filed: 11/26/17 10:06> Date of Encounter: 11/26/17 Internal Medicine - H&P: HPI History of present illness: Mr. Salmeron is a 77 year old male All Systems PM: A 10-system review of systems was performed and is negative for pertinent findings except as documented above in the HPI. - Constitutional Vitals: Temp Pulse Resp BP Pulse Ox 97.9 F 47 16 107/60 94 11/26/17 07:07 11/26/17 07:07 11/26/17 07:07 11/26/17 07:07 11/26/17 07:07 Internal Med - H&P Results - Labs CBC & Chem 7: 11/26/17 05:52 11/26/17 05:52 Labs: Short CBC 11/26/17 Range/Units 05:52 WBC 6.2 (4.3-11.1) K/mcL Hgb 11.5 L (12.9-16.9) g/dL Hct 36.4 L (37.5-50.1) % Plt Count 210 (140-400) K/mcL BMP 11/26/17 05:52 Sodium 135 L Potassium 4.2 Chloride 105 Carbon Dioxide 25 BUN 40 H Creatinine 1.32 H Glucose 135 H Calcium 8.8 - Attending Attestation I've personally examined the patient and reviewed his available records and tests. I agree with the HVAC SERVICE TECH's A&P. His UE weakness is improved but his right lower extremity weakness persists. He has 4/5 strength throughout his major muscle groups of the rt. lower extremity. He denies visual changes at this time and the CN exam is unremarkable.
[2017-11-25] MEDS ORDERED: Warfarin perPT PO PRN (18:00)
[2017-11-25] MEDS: *HR* HYDROcodone/Acet 5/325 mg TABLET PO PRN (18:56)
[2017-11-25] MEDS: Gabapentin 100 MG CAPSULE PO SCH (20:17)
[2017-11-25] MEDS: Ranolazine 500 MG TAB.ER.12H PO SCH (20:17)
[2017-11-25] MEDS: Acetaminophen/Butalbital/CaffeineTABLET PO PRN (22:40)
[2017-11-26] MEDS: *HR* HYDROcodone/Acet 5/325 mg TABLET PO PRN ×2 (02:54→14:12)
[2017-11-26 06:38] LABS: Hematocrit 36.4 % (37.5-50.1); Hemoglobin 11.5 g/dL (12.9-16.9); Mean Corpuscular HGB Conc 31.6 g/dL (31.6-35.5); Mean Corpuscular Hemoglobin 28.1 pg (28.0-33.3); Mean Platelet Volume 10.2 fL (9.4-12.4); Platelet Count 210 K/mcL (140-400); Red Blood Count 4.09 M/mcL (4.19-5.50); Red Cell Distribution Width 14.8 % (11.5-14.5)
[2017-11-26 06:50] LABS: INR 2.9; Prothrombin Time 32.2 Seconds (9.4-12.1)
[2017-11-26 06:56] LABS: BUN/Creatinine Ratio 30 (6-26); Blood Urea Nitrogen 40 mg/dL (8-23); Calcium 8.8 mg/dL (8.6-10.3); Carbon Dioxide 25 mEq/L (23-29); Chloride 105 mEq/L (98-107); Chol/HDL Ratio 4.2 (0-4.9); Cholesterol 110 mg/dL (< 200); Glucose 135 mg/dL (70-105); HDL Cholesterol 26 mg/dL (40-59); LDL Cholesterol,Calculated 55 mg/dL (0-99); Osmolality,Calculated 292 (280-300); Potassium 4.2 mEq/L (3.5-5.1); Sodium 135 mEq/L (136-145); Triglycerides 147 mg/dL (< 150); eGFR For African Americans > 60 (> 60); eGFR For Non-African Americans 53 (> 60)
[2017-11-26] MEDS ORDERED: Insulin DETEMIR 100 UNIT/ML X5UNITS SQ SCH (09:00)
[2017-11-26] MEDS: Ranolazine 500 MG TAB.ER.12H PO SCH ×2 (09:01→19:57)
[2017-11-26] MEDS: Aspirin Enteric Coated 81 MG Tablet PO SCH (09:02)
[2017-11-26] MEDS: Acetaminophen/Butalbital/CaffeineTABLET PO PRN (10:51)
[2017-11-26] MEDS: Insulin DETEMIR 100 UNIT/ML X5UNITS SQ SCH (10:51)
[2017-11-26] MEDS ORDERED: Acetaminophen/Aspirin/Caffeine TABLET PO ONE (16:17)
--- NOTE | 2017-11-26 16:44 | Internal Med Progress Note ---
Date of Encounter: 11/26/17 Time of Encounter: 16:42 - Assessment and plan (1) Headache Current Visit: Yes Status: Acute Assessment and plan: She has had a headache all day in spite of treatment with nonnarcotic methods. Neuro neurologist with an end suggested Phenergan 25 IV in combination with Solu -Medrol 60 mg IV every 12 hours. Also Zanaflex 2 mg at at bedtime by mouth. Qualifiers: Headache type: unspecified Intractability: intractable Qualified Code(s) : R51 - Headache (2) CVA (cerebral vascular accident) Current Visit: Yes Status: Suspected Assessment and plan: Suspected CVA, LKW 3-days ago, New RUE, RLE numbness, tingling and weakness, as well as h/a rated a 10/10 and hearing loss in his Rt ear. H/O CVA He reports symptoms are similar to his last CVA. CT head today unremarkable no mass effect, hemorrhage or midline shift Risk factors include atrial fibrillation, prior CVA, diabetes, and hypertension. -CTA head and neck now -MRI head/brain wo contrast -Recent TTE in 09/01 unremarkable -PT/INR therapeutic -Lipid panel -EKG unremarkable -UA contaminated, No ATB -Resume antiHTN meds, statin, and ASA -Neuro checks Q4h -NIHSS -Dysphagia screen -Continuous tele, Spo2 monitoring -Coumadin per PT Neurology service saw and is awaiting the MRI. Qualifiers: CVA mechanism: unspecified Qualified Code(s): I63.9 - Cerebral infarction, unspecified (3) Congestive heart failure Current Visit: No Status: Chronic Assessment and plan: Stable at this time chronic diastolic heart failure Qualifiers: Qualified Code(s): I50.32 - Chronic diastolic (congestive) heart failure (4) CAD (coronary artery disease) Current Visit: No Status: Chronic Assessment and plan: Continue aspirin and statin beta freda and bryon Qualifiers: Coronary Disease-Associated Artery/Lesion type: bypass graft [place] vs. 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: with mcc use Qualified Code(s): E11.9 - Type 2 diabetes mellitus without complications ; Z79.4 - detention (current) use of insulin; Z79.4 - detention (current) use of insulin; Z79.4 - terminologist (current) use of insulin; Z79.4 - terminologist ( current) use of insulin (6) DVT prophylaxis Current Visit: Yes Status: Acute Assessment and plan: 10 units Coumadin and follow PT/INR (7) Hypothyroidism, unspecified Current Visit: Yes Status: Chronic Qualifiers: Hypothyroidism type: other Qualified Code(s): E03.8 - Other specified hypothyroidism (8) Numbness Current Visit: Yes Status: Acute Assessment and plan: Await MRI (9) Weakness Current Visit: Yes Status: Acute Assessment and plan: PT OT evaluation (10) Atrial fibrillation Current Visit: No Status: Chronic Assessment and plan: Stable, continue Coumadin therapy Qualifiers: Atrial fibrillation type: paroxysmal Qualified Code(s): I48.0 - Paroxysmal atrial fibrillation - Subjective Interval history: Patient states the weakness has resolved in his right leg/side. He states he is still having some right-sided abdominal pain and his leg is still a little tingly. He also states that he has a headache. He has a chronic stoma status post trach and he states he has had for 10 years because he cannot breathe through his nose. - Constitutional Vitals: Temp Pulse Resp BP Pulse Ox 97.9 F 59 18 159/55 99 11/26/17 15:37 11/26/17 15:37 11/26/17 15:37 11/26/17 15:37 11/26/17 15:37 General appearance: Present: cooperative, A&O X 3, pleasant, no acute distress, answers questions appropriately - Head Head exam: Present: atraumatic, normocephalic - Eye Eye exam: Present: PERRL, conjuntiva pink, sclera anicteric Pupils: Present: PERRL - Neck Neck exam general surgery: Present: supple, trachea midline. Absent: lymphadenopathy - Respiratory Respiratory exam: Present: CTAB. Absent: accessory muscle use, rales, rhonchi, wheezes Additional comments: Tracheal stoma that he has had for 10 years. - Cardiovascular Cardiovascular exam: Present: RRR, +S1, +S2. Absent: diastolic murmur, gallop, rubs, systolic murmur - GI/Abdominal GI/Abdominal exam: Present: normal bowel sounds, soft, no peritoneal signs. Absent: distended, tenderness - Extremities Exam Extremities exam: Present: warm, radial pulses palpable and symmetrical. Absent : calf tenderness, cyanotic, pedal edema - Neurological Exam Neurological exam: Present: CN II-XII intact, oriented X3, no focal deficits. Absent: pronater drift, facial droop, speech deficit - Skin Skin exam: Present: dry, intact, warm Internal Medicine: Result - Labs CBC & Chem 7: 11/26/17 05:52 11/26/17 05:52 Labs: Short CBC 11/26/17 Range/Units 05:52 WBC 6.2 (4.3-11.1) K/mcL Hgb 11.5 L (12.9-16.9) g/dL Hct 36.4 L (37.5-50.1) % Plt Count 210 (140-400) K/mcL BMP 11/26/17 05:52 Sodium 135 L Potassium 4.2 Chloride 105 Carbon Dioxide 25 BUN 40 H Creatinine 1.32 H Glucose 135 H Calcium 8.8 - ABG Interpretation ABG results: PT/INR, D-dimer PT 32.2 Seconds (9.4-12.1) H 11/26/17 05:52 Consult Discharge Plan - Plan Referrals: Peter Carlson MD [Primary Care Provider] -
[2017-11-26] MEDS ORDERED: *HR* Promethazine 25 MG/ML VIAL IVP PRN (16:54)
[2017-11-26] MEDS: methylPREDNISolone 125 MG/2 ML VIAL IVP SCH (17:07)
[2017-11-26] MEDS ORDERED: *HR* Warfarin 5 MG TABLET PO ONE (18:00)
[2017-11-26] MEDS: Gabapentin 100 MG CAPSULE PO SCH (19:58)
[2017-11-26] MEDS ORDERED: tiZANidine 4 MG TABLET PO SCH (21:00)
--- NOTE | 2017-11-26 21:30 | Neurology - Consult Note ---
Date of Encounter: 11/26/17 Time of Encounter: 05:10 Assessment and Plan (1) Severe frontal headaches Current Visit: Yes Status: Acute This patient was been experiencing dizziness dizziness and lightheadedness along with significant frontal headaches without any evidence of bleed on his CT scan of the head. Though the headache could be related to underlying hypoperfusion and could be a vascular at the same time the description seems to be most of muscle contraction type of headaches. Considering patient is experiencing severe headache for the past several weeks without resolution he may benefit from IV fluid and at the same time suggest to give him a trial of Solu-Medrol along with Phenergan. Patient would also benefit from low-dose of muscle relaxer at night. (2) Weakness of right side of body Current Visit: Yes Status: Acute The patient had a stroke earlier and has improvement in his symptoms and now he is complaining of worsening of his right-sided weakness in order to exclude any new stroke and would probably need an MRI of the brain. CT scan did not show any acute abnormality but patient has multiple risk factors including significant atherosclerotic disease office, and carotid has noted on CT angiogram and at the same time he also has stenosis of his posterior circulation and particularly the stenosis of the vertebral on the left as well as on the right. With history of atrial fibrillation and other independent risk factors for stroke though his INR seems to be therapeutic and he is already on anticoagulation suggested that he should continue on it to keep his INR therapeutic (3) History of cerebrovascular accident (CVA) with residual deficit Current Visit: Yes (4) Vertebral artery stenosis Current Visit: Yes Status: Acute he did have significant atherosclerotic disease as well as a stenosis of his work persistent he is on Coumadin suggested that he continue on it Did not think to be a surgical candidate considering significant stenosis of the vertebral system. Carotid did have some atherosclerotic plaque in common carotid but no critical stenosis in the internal carotid.s Qualifiers: Laterality: bilateral History of Present Illness HPI: Mr. Salmeron is a 77 year old male with PMH of atrial fibrillation, cancer, coronary artery disease, CVA, diabetes, hypertension, myocardial infarction, peripheral artery disease, SVT, thyroid disease, who presents to [facility] today with persistent 10/10 h/a x10 days, and new Rt sided numbness, tingling, and weakness. He reports that he is unable to lift his leg and is having balance difficulty d/t weakness. His LKW was 3-days ago. He has a h/o of CVA with right sided deficits but reports that the prior deficits had resolved with some residual weakness, and now worsening of weakness of right leg, He notes that these are the same symptoms he experienced with his last CVA. He denies any CP , SOB, N/V/D, Abdominal pain or unilateral extremity swelling or pain. He does admits to dysuria but denies any flank pain. CT head unremarkable. He describes his headaches as predominantly in the front radiated to the back without any significant photophobia or nausea or vomiting or any vision changes. He is also complaining of dizziness and lightheadedness predominantly when he is getting up quickly Past Med Surg Social Fam HX - Past Medical History Medical history: atrial fibrillation, cancer, coronary artery disease, CVA, diabetes, hypertension, myocardial infarction, peripheral artery disease, SVT, thyroid disease Psychiatric history: no psych history - Past Surgical History Surgical History: angioplasty/stent, appendectomy, coronary bypass (CABG), herniorrhaphy, LE vascular intervention, tracheostomy - Social History Smoking Status: Former smoker Smokeless Tobacco Status: No Alcohol use: none Drug use: none - Family History Mother Living Status: Hx Family Cardiac Disorders: No Hx Family Respiratory Disorders: No Hx Family Cancer: No Hx Family GI Disorders: No Hx Family Endocrine Disorder: No Hx Family Neuromuscular Disorders: No Hx Family Neurologic Disorders: No Hx Family HEENT Disorders: No Hx Family Autoimmune Disorders: No Father Living Status: Hx Family Cardiac Disorders: No Hx Family Respiratory Disorders: No Hx Family Cancer: No Hx Family GI Disorders: No Hx Family Endocrine Disorder: No Hx Family Neuromuscular Disorders: No Hx Family Neurologic Disorders: No Hx Family HEENT Disorders: No Hx Family Autoimmune Disorders: No Sister Living Status: Hx Family Cancer: Yes (lung cancer) Medications and Allergies Omeprazole [PriLOSEC] 20 mg PO QAM 06/11/15 [History] Tamsulosin [Flomax] 0.4 mg PO QAM 06/11/15 [History] Lisinopril 10 mg PO BID 08/10/15 [History] Insulin Glargine,Hum.rec.anlog [Lantus Solostar] 20 unit SQ QAM 12/09/15 [ History] Acetaminophen/Butalbital/Caffe [Fioricet] 1 each PO DAILY PRN 05/14/17 [History] Ferrous Sulfate [Iron] 325 mg PO DAILY 05/14/17 [History] Gabapentin [Neurontin] 100 mg PO HS 05/14/17 [History] Promethazine [Phenergan] 25 mg PO Q6HR PRN 05/14/17 [History] Warfarin [Coumadin] 5 mg PO WE 05/15/17 [History] Aspirin Enteric Coated [Aspirin EC] 81 mg PO DAILY 08/17/17 [History] Atorvastatin Calcium [Lipitor] 80 mg PO HS 08/17/17 [History] Levothyroxine Sodium [Synthroid] 300 mcg PO QAM 08/17/17 [History] Nitroglycerin 0.4 mg SL Q5MIN PRN #14 tab.subl 08/22/17 [Rx] Metoprolol [Lopressor] 12.5 mg PO BID #60 tablet 09/11/17 [Rx] Warfarin [Coumadin] 7.5 mg PO SUMOTUTHFRSA 09/25/17 [History] Isosorbide MONOnitrate (24 HR) [Imdur] 30 mg PO DAILY #30 tab.er.24h 10/18/17 [ Rx] Ranolazine [Ranexa] 1,000 mg PO BID #120 tab.er.12h 10/18/17 [Rx] HYDROcodone/Acet 5/325 mg [[place] 5-325 mg] 1 - 2 tab PO QID PRN 3 Days #15 tab 11/21/17 [Rx] 3 Allergy/AdvReac Type Severity Reaction Status Date / Time No Known Allergies Allergy Verified 11/21/17 10:47 All Systems: A 10-system review of systems was performed and is negative for pertinent findings except as documented above in the HPI. 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, also having hearing loss, and decrease right leg strength from recent stroke Physical Examination - Vital Signs Vital Signs: Initial Vital Signs Temp Pulse Resp BP Pulse Ox 98.6 F 70 18 130/55 98 11/25/17 13:46 11/25/17 13:46 11/25/17 13:46 11/25/17 13:46 11/25/17 13:46 - Constitutional General appearance: comfortable - Neurologic Sensorimotor examination: intact Motor examination - right side: 35: tibialis Anterior, quadriceps, toe extension (EHL), plantarflexion, 4/5: deltoids, biceps, triceps, wrist flexion, wrist extension, promotions manager, hip flexors Motor examination - left side: 5/5: deltoids, biceps, triceps, wrist flexion, wrist extension, hip flexors, promotions manager, quadriceps, tibialis Anterior, toe extension (EHL), plantarflexion Detailed sensory examination: intact Reflex and gait examination: intact Reflexes: Biceps: 1+, Triceps: 1+, Brachioradialis: 1+, Patella: 1+, Achilles: 1 + Mental Status Examination: awake, alert, oriented to person, oriented to place, oriented to time, answers questions appropriately, follows simple commands, localizes noxious stimulation Cranial nerve examination: PERRL, EOMI, visual layton intact, no facial asymmetry is present, no dysarthria (Hypophonic speech due to tracheostomy in place ) Results - Laboratory Findings CBC and BMP: 11/26/17 05:52 11/26/17 05:52 Abnormal lab findings: Abnormal lab results RBC 4.09 M/mcL (4.19-5.50) L 11/26/17 05:52 Hgb 11.5 g/dL (12.9-16.9) L 11/26/17 05:52 Hct 36.4 % (37.5-50.1) L 11/26/17 05:52 RDW 14.8 % (11.5-14.5) H 11/26/17 05:52 PT 32.2 Seconds (9.4-12.1) H 11/26/17 05:52 APTT 48.5 Seconds (26.0-36.0) H 11/25/17 14:45 Sodium 135 mEq/L (136-145) L 11/26/17 05:52 BUN 40 mg/dL (8-23) H 11/26/17 05:52 Creatinine 1.32 mg/dL (0.70-1.30) H 11/26/17 05:52 Est GFR (Non-Af Amer) 53 (> 60) L 11/26/17 05:52 BUN/Creatinine Ratio 30 (6-26) H 11/26/17 05:52 Glucose 135 mg/dL (70-105) H 11/26/17 05:52 POC Glucose 199 (58-89) H 11/25/17 20:17 HDL Cholesterol 26 mg/dL (40-59) L 11/26/17 05:52 Urine Clarity Cloudy (Clear) A 11/25/17 14:55 Ur Leukocyte Esterase Moderate (Negative) H 11/25/17 14:55 Urine Microscopic RBC 5-15 per hpf (0-3) H 11/25/17 14:55 Urine Microscopic WBC TNTC per hpf (0-3) H 11/25/17 14:55 Ur Squamous Epith Cells Many per lpf (None-Few) H 11/25/17 14:55 - Diagnostic Findings Additional findings: CTA of head and NECK : Focal out-pouchings at the origins of the bilateral internal carotid arteries, stable since the prior study. 30% focal stenosis at origin of the right internal carotid artery by NASCET criteria. Atherosclerotic disease of the bilateral common carotid arteries with focal ulcerative plaques. 70% focal stenosis at the origin of the left vertebral artery. 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 50% focal stenosis of the V4 segment of left vertebral artery. 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 Mild degenerative changes at the cavernous internal carotid arteries. Soft tissue thickening of the posterior nasopharynx. Prominent left A1 level cervical lymph nodes. Nonspecific interstitial and pleural thickening at the lung apices. These findings are stable. Consult Discharge Plan - Plan Referrals: Peter Carlson MD [Primary Care Provider] -
[2017-11-27 05:55] LABS: INR 3.2; Prothrombin Time 34.8 Seconds (9.4-12.1)
[2017-11-27] MEDS: methylPREDNISolone 125 MG/2 ML VIAL IVP SCH ×2 (05:56→14:16)
--- NOTE | 2017-11-27 07:41 | Electrocardiograph Report ---
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
[2017-11-27] MEDS: Aspirin Enteric Coated 81 MG Tablet PO SCH (10:08)
[2017-11-27] MEDS: Ranolazine 500 MG TAB.ER.12H PO SCH (10:09)
[2017-11-27] MEDS: Insulin DETEMIR 100 UNIT/ML X5UNITS SQ SCH (10:13)
[2017-11-27 12:13] VITALS: BP 143/77
--- NOTE | 2017-11-27 13:04 | Neurology Progress Note ---
Date of Encounter: 11/27/17 Time of Encounter: 07:05 Assessment and Plan (1) Severe frontal headaches Current Visit: Yes Status: Acute improved, suggest to discontinue the IV steroids and use only Medrol Dosepak for the next few days. May use NSAIDs on an as-needed basis continue on Zanaflex 2 mg at bedtime (2) Weakness of right side of body Current Visit: Yes Status: Acute The patient has an history of a stroke but new MRI scan which I have reviewed today shows a concern off pontine infarct but at the same time no abnormality noted on FLAIR images which could be related to an artifact according to the report Suspected linear artifact within the dorsal aspect of the yvonne seen only on diffusion-weighted imaging. A follow-up exam in 48 to 72 hours is recommended to ensure this resolves and/or there is no interval development of FLAIR/T2 signal abnormality in this region. No acute intracranial process identified. Remote right occipital infarct. Diffuse cerebral volume loss and moderate chronic small vessel ischemic changes. Considering patient history of multiple intracranial vessel stenosis including vertebral as well as small vessels is a possibility that it could be a new infarct He is already on antiplatelet therapy along with Coumadin do not think that we have any other options as far as treatment twice in fact it would increase the risk of hemorrhagic and bleeding complication I would suggest that we should continue him on the same therapy. Patient would benefit from physical therapy and rehabilitation (3) History of cerebrovascular accident (CVA) with residual deficit Current Visit: Yes (4) Vertebral artery stenosis Current Visit: Yes Status: Acute Subjective Interval history: Headaches has improved no new symptoms overall better still some weakness in right lower ext Objective - Constitutional Vitals: Temp Pulse Resp BP Pulse Ox 98.4 F 77 16 143/77 95 11/27/17 12:12 11/27/17 12:12 11/27/17 12:12 11/27/17 12:12 11/27/17 12:12 - Neurological Exam Sensorimotor examination: Present: intact Motor examination - left side: 5/5: deltoids, biceps, triceps, wrist flexion, wrist extension, hip flexors, pound keeper, quadriceps, tibialis Anterior, toe extension (EHL), plantarflexion Sensation intact: Present: intact Reflex and gait examination: intact Mental Status Examination: Present: awake, alert, oriented to person, oriented to place, oriented to time, answers questions appropriately, follows simple commands, localizes noxious stimulation Cranial nerve examination: Present: PERRL, EOMI, visual layton intact, no facial asymmetry is present, no dysarthria (Hypophonic speech due to tracheostomy in place ) Results - Laboratory Findings CBC and BMP: 11/26/17 05:52 11/26/17 05:52 Abnormal lab findings: Abnormal lab results RBC 4.09 M/mcL (4.19-5.50) L 11/26/17 05:52 Hgb 11.5 g/dL (12.9-16.9) L 11/26/17 05:52 Hct 36.4 % (37.5-50.1) L 11/26/17 05:52 RDW 14.8 % (11.5-14.5) H 11/26/17 05:52 PT 34.8 Seconds (9.4-12.1) H 11/27/17 05:19 APTT 48.5 Seconds (26.0-36.0) H 11/25/17 14:45 Sodium 135 mEq/L (136-145) L 11/26/17 05:52 BUN 40 mg/dL (8-23) H 11/26/17 05:52 Creatinine 1.32 mg/dL (0.70-1.30) H 11/26/17 05:52 Est GFR (Non-Af Amer) 53 (> 60) L 11/26/17 05:52 BUN/Creatinine Ratio 30 (6-26) H 11/26/17 05:52 Glucose 135 mg/dL (70-105) H 11/26/17 05:52 POC Glucose 167 (58-89) H 11/26/17 19:08 HDL Cholesterol 26 mg/dL (40-59) L 11/26/17 05:52 Urine Clarity Cloudy (Clear) A 11/25/17 14:55 Ur Leukocyte Esterase Moderate (Negative) H 11/25/17 14:55 Urine Microscopic RBC 5-15 per hpf (0-3) H 11/25/17 14:55 Urine Microscopic WBC TNTC per hpf (0-3) H 11/25/17 14:55 Ur Squamous Epith Cells Many per lpf (None-Few) H 11/25/17 14:55 Consult Discharge Plan - Plan Referrals: Peter Carlson MD [Primary Care Provider] -
[2017-11-27] MEDS: *HR* HYDROcodone/Acet 5/325 mg TABLET PO PRN (14:16)
--- NOTE | 2017-11-27 14:30 | Physician Discharge Referral ---
Home Health/Hosp Referral Info Transfer to: Home Health Attending Provider: richard - Diagnosis (1) Headache Priority: Primary Status: Chronic (2) CVA (cerebral vascular accident) Priority: Primary Status: Chronic (3) Congestive heart failure Priority: Secondary Status: Chronic (4) CAD (coronary artery disease) Priority: Secondary Status: Chronic (5) Diabetes Priority: Secondary Status: Chronic (6) Hypothyroidism, unspecified Status: Chronic (7) Numbness Status: Acute (8) Weakness Priority: Primary Status: Acute (9) Atrial fibrillation Priority: Secondary Status: Chronic - Respiratory Orders Smoking Cessation: Smoking cessation has been advised. For more information, call the [place] Tobacco Quit Line at 7-386-TDVR-NOW. - Diet/Nutrition Diet/Nutrition Orders: Cardiac - Activity Activity Orders: Ambulate, Walker - Services Needed Following services are medically necessary services: Nursing, Home Health Aide, Physical Therapy, Occupational Therapy, Med Social Work - Transfer Medications Prescriptions: methylPREDNISolone [Medrol] 4 mg PO DAILY #1 tablet Home Medications: Omeprazole [PriLOSEC] 20 mg PO QAM 06/11/15 [History] Tamsulosin [Flomax] 0.4 mg PO QAM 06/11/15 [History] Lisinopril 10 mg PO BID 08/10/15 [History] Insulin Glargine,Hum.rec.anlog [Lantus Solostar] 20 unit SQ QAM 12/09/15 [ History] Acetaminophen/Butalbital/Caffe [Fioricet] 1 each PO DAILY PRN 05/14/17 [History] Ferrous Sulfate [Iron] 325 mg PO DAILY 05/14/17 [History] Gabapentin [Neurontin] 100 mg PO HS 05/14/17 [History] Promethazine [Phenergan] 25 mg PO Q6HR PRN 05/14/17 [History] Warfarin [Coumadin] 5 mg PO WE 05/15/17 [History] Aspirin Enteric Coated [Aspirin EC] 81 mg PO DAILY 08/17/17 [History] Atorvastatin Calcium [Lipitor] 80 mg PO HS 08/17/17 [History] Levothyroxine Sodium [Synthroid] 300 mcg PO QAM 08/17/17 [History] Nitroglycerin 0.4 mg SL Q5MIN PRN #14 tab.subl 08/22/17 [Rx] Metoprolol [Lopressor] 12.5 mg PO BID #60 tablet 09/11/17 [Rx] Warfarin [Coumadin] 7.5 mg PO SUMOTUTHFRSA 09/25/17 [History] Isosorbide MONOnitrate (24 HR) [Imdur] 30 mg PO DAILY #30 tab.er.24h 10/18/17 [ Rx] Ranolazine [Ranexa] 1,000 mg PO BID #120 tab.er.12h 10/18/17 [Rx] HYDROcodone/Acet 5/325 mg [[place] 5-325 mg] 1 - 2 tab PO QID PRN 3 Days #15 tab 11/21/17 [Rx] methylPREDNISolone [Medrol] 4 mg PO DAILY #1 tablet 11/27/17 [Rx] Allergies/Adverse Reactions: 3 Allergy/AdvReac Type Severity Reaction Status Date / Time No Known Allergies Allergy Verified 11/21/17 10:47 Certification: Further, I certify that my clinical findings support that this patient is homebound (i.e. absences from home require considerable and taxing effort and are for medical reasons or taoism services or infrequently or short duration when for other reasons) because: Homebound Reason: Patient requires assistance of a person or device to safely leave home, Leaving home requires considerable and taxing effort due to condition Attestation: My signature below is to certify that this patient is under my care and that I, or nurse practitioner, or a physician's senior care assistant working with me, has a face-to -face encounter with this patient.
--- NOTE | 2017-11-27 14:31 | Discharge Summary ---
Date of Encounter: 11/27/17 Time of Encounter: 14:31 - Discharge Diagnosis (1) Headache Priority: Primary Status: Chronic Comments: The neurologist saw the patient yesterday and wrote the following note. This patient was been experiencing dizziness and lightheadedness along with significant frontal headaches without any evidence of bleed on his CT scan of the head. Though the headache could be related to underlying hypoperfusion and could be a vascular at the same time the description seems to be most of muscle contraction type of headaches. Considering patient is experiencing severe headache for the past several weeks without resolution he may benefit from IV fluid and at the same time suggest to give him a trial of Solu-Medrol along with Phenergan. Patient would also benefit from low-dose of muscle relaxer at night. Today the headache was much better He will discharged on a medroll dose pack and the muscle relaxer Zanaflex. He also may take NSAIDs as needed. He should avoid narcotics. The MRI was reviewed and there are no acute findings per report or neurology review no stroke or bleed Home health was recommended but the and patient are refusing per nursing report Qualifiers: Headache type: unspecified Headache chronicity pattern: unspecified pattern Intractability: not intractable Qualified Code(s): R51 - Headache (2) CVA (cerebral vascular accident) Priority: Secondary Status: Chronic Comments: No new findings on MRI or CT of the head Qualifiers: CVA mechanism: unspecified Qualified Code(s): I63.9 - Cerebral infarction, unspecified (3) CAD (coronary artery disease) Priority: Secondary Status: Chronic Comments: Patient chest pain-free during this stay Continue aspirin, statin, beta freda and bryon Qualifiers: Coronary Disease-Associated Artery/Lesion type: bypass graft [place] vs. 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) , unspecified, with other forms of angina pectoris (4) Diabetes Priority: Secondary Status: Chronic Comments: Continue home medications and regime on discharge Qualifiers: Diabetes mellitus type: type 2 Diabetes mellitus complication status: without complication Diabetes mellitus long term care administrator insulin use: with nursing home use Qualified Code(s): E11.9 - Type 2 diabetes mellitus without complications ; Z79.4 - group home (current) use of insulin; Z79.4 - intermediate accountant (current) use of insulin; Z79.4 - intermediate accountant (current) use of insulin; Z79.4 - intermediate accountant ( current) use of insulin (5) Hypothyroidism, unspecified Priority: Secondary Status: Chronic Comments: Continue home medications Qualifiers: Hypothyroidism type: other Qualified Code(s): E03.8 - Other specified hypothyroidism (6) Weakness Priority: Primary Status: Acute Comments: Patient with right sided weakness that has improved over the past 2 days. He still complains of some numbness and tingling and weakness. PT OT evaluations completed and they suggested a home PT. That was arranged and the patient and are declining services. Neurology felt that he is on anticoagulation which should continue. 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 Neurology felt it would increase the risk of hemorrhage and bleeding complications to add any other agents. He recommends we continue the same Coumadin therapy with therapeutic INRs. He felt patient would benefit from physical therapy and rehabilitation. (7) Atrial fibrillation Priority: Secondary Status: Chronic Comments: Heart rate stable here continue Coumadin therapy Qualifiers: Atrial fibrillation type: paroxysmal Qualified Code(s): I48.0 - Paroxysmal atrial fibrillation - Discharge Medications Prescriptions: methylPREDNISolone [Medrol] 4 mg PO DAILY #1 tablet Tizanidine HCl [Zanaflex] 2 mg PO HS #15 cap Home Medications: Omeprazole [PriLOSEC] 20 mg PO QAM 06/11/15 [History] Tamsulosin [Flomax] 0.4 mg PO QAM 06/11/15 [History] Lisinopril 10 mg PO BID 08/10/15 [History] Insulin Glargine,Hum.rec.anlog [Lantus Solostar] 20 unit SQ QAM 12/09/15 [ History] Acetaminophen/Butalbital/Caffe [Fioricet] 1 each PO DAILY PRN 05/14/17 [History] Ferrous Sulfate [Iron] 325 mg PO DAILY 05/14/17 [History] Gabapentin [Neurontin] 100 mg PO HS 05/14/17 [History] Promethazine [Phenergan] 25 mg PO Q6HR PRN 05/14/17 [History] Warfarin [Coumadin] 5 mg PO WE 05/15/17 [History] Aspirin Enteric Coated [Aspirin EC] 81 mg PO DAILY 08/17/17 [History] Atorvastatin Calcium [Lipitor] 80 mg PO HS 08/17/17 [History] Levothyroxine Sodium [Synthroid] 300 mcg PO QAM 08/17/17 [History] Nitroglycerin 0.4 mg SL Q5MIN PRN #14 tab.subl 08/22/17 [Rx] Metoprolol [Lopressor] 12.5 mg PO BID #60 tablet 09/11/17 [Rx] Warfarin [Coumadin] 7.5 mg PO SUMOTUTHFRSA 09/25/17 [History] Isosorbide MONOnitrate (24 HR) [Imdur] 30 mg PO DAILY #30 tab.er.24h 10/18/17 [ Rx] Ranolazine [Ranexa] 1,000 mg PO BID #120 tab.er.12h 10/18/17 [Rx] HYDROcodone/Acet 5/325 mg [[place] 5-325 mg] 1 - 2 tab PO QID PRN 3 Days #15 tab 11/21/17 [Rx] Tizanidine HCl [Zanaflex] 2 mg PO HS #15 cap 11/27/17 [Rx] methylPREDNISolone [Medrol] 4 mg PO DAILY #1 tablet 11/27/17 [Rx] Allergies/Adverse Reactions: 3 Allergy/AdvReac Type Severity Reaction Status Date / Time No Known Allergies Allergy Verified 11/21/17 10:47 Procedures/tests Complete & Pending: Procedures Performed prior 72 hours Category Date Time Status MR head/brain wo con [MR] Routine MRI 11/27/17 09:00 Draft Date of admission: 11/25/17 17:30 Primary care physician: Peter Carlson MD Discharging clinician: Yudith Coreas Anticipated date of discharge: 11/27/17 - Patient Status Disposition: Home Health Service Condition: Good Functional capacity at discharge: uses cane/walker Overall status at discharge: patient is progressing back to baseline - Discharge Instructions Instructions: Chronic Hypertension (DC) Follow Up With: Peter Carlson MD [Primary Care Provider] - 12/01/17 9:45 am Ale Goff MD [Partnered Physician] - 12/11/17 12:45 pm Additional Instructions: Follow-up with neurology service in 2-3 weeks and he will arrange for a repeat MRI from the office as an outpatient - Diet and Activity Activity: ambulate only with your walker, as per physical therapy Diet: advance to your usual diet Interval History: Patient's numbness, tingling and weakness are a little improved but still present. The headache had been totally improved but returned somewhat this afternoon. He does have some gait weakness on the right side PT and OT worked with him and suggested physical therapy. Patient and his declined home health after I set it up. He denies any chest pain, shortness of breath, fevers , chills or dizziness. Hospital course: Mr. Salmeron is a 77 year old male presented with some right sided weakness numbness and tingling. Neuro saw. MRI and CT of the brain were obtained and reviewed with no new findings. He will continue his normal medications including Coumadin to keep a therapeutic INR. Also added a muscle relaxer at bedtime and a Medrol Dosepak. His follow-up with his primary care physician. He is to follow up with neurology and 2-3 weeks at that time the doctor will set up for an outpatient MRI to follow up. - Time Spent with Patient Total time spent providing and/or coordinating discharge services: Less than 30 minutes - Constitutional Vitals: Temp Pulse Resp BP Pulse Ox 98.4 F 77 16 143/77 95 11/27/17 12:12 11/27/17 12:12 11/27/17 12:12 11/27/17 12:12 11/27/17 12:12 General appearance: Present: cooperative, A&O X 3, pleasant, no acute distress, answers questions appropriately - Head Head exam: Present: atraumatic, normocephalic - Eye Eye exam: Present: PERRL, conjuntiva pink, sclera anicteric Pupils: Present: PERRL - Neck Neck exam general surgery: Present: supple, trachea midline. Absent: lymphadenopathy Additional comments: Stoma is patent, patient cannot breathe through his nose has had the stoma for 10 years - Respiratory Respiratory exam: Present: CTAB. Absent: accessory muscle use, rales, rhonchi, wheezes - Cardiovascular Cardiovascular exam: Present: RRR, +S1, +S2. Absent: diastolic murmur, gallop, rubs, systolic murmur - GI/Abdominal GI/Abdominal exam: Present: normal bowel sounds, soft, no peritoneal signs. Absent: distended, tenderness - Extremities Exam Extremities exam: Present: warm, radial pulses palpable and symmetrical. Absent : calf tenderness, cyanotic, pedal edema - Neurological Exam Neurological exam: Present: CN II-XII intact, oriented X3, no focal deficits. Absent: strengths equal and symetr throughout, pronater drift, facial droop, speech deficit Additional comments: Leg is slightly weak with walking. With altered gait - Skin Skin exam: Present: dry, intact, warm
[2017-11-27] MEDS ORDERED: *HR* Warfarin 2.5 MG TABLET PO ONE (18:00)
== END 2017-11-27 15:43 | disposition home health service (06) | DRG 103 ==
LOC: EMEROO 13:44 → 3ANU 13:44 → 3BNU 22:23
PROVIDERS: ADMIT Internal Medicine Cardiovascular Disease; ATTEND Internal Medicine

== ENCOUNTER 2017-12-16 13:34 | Inpatient (IN) ==
[2017-12-16 14:06] LABS: Basophils % 0.5 %; Eosinophils # 0.4 K/mcL (0.0-0.6); Eosinophils % 5.6 %; Hematocrit 38.4 % (37.5-50.1); Hemoglobin 12.1 g/dL (12.9-16.9); Immature Granulocytes % 0.8 % (0-4); Lymphocytes # 1.1 K/mcL (0.6-4.6); Lymphocytes % 14.4 %; Mean Corpuscular HGB Conc 31.5 g/dL (31.6-35.5); Mean Corpuscular Hemoglobin 27.8 pg (28.0-33.3); Mean Corpuscular Volume 88.3 fL (83.0-100.0); Mean Platelet Volume 9.8 fL (9.4-12.4); Monocytes # 0.7 K/mcL (0.0-1.3); Monocytes % 8.5 %; Neutrophils # 5.4 K/mcL (1.6-8.9); Platelet Count 365 K/mcL (140-400); Red Blood Count 4.35 M/mcL (4.19-5.50); Red Cell Distribution Width 14.6 % (11.5-14.5); Segmented Neutrophils % 70.2 %
[2017-12-16 14:08] LABS: INR 1.9
[2017-12-16 14:10] LABS: Activated Partial Thrombo Time 36.1 Seconds (26.0-36.0)
--- NOTE | 2017-12-16 14:22 | Emergency Department Note ---
Disposition Forms: ED Satisfaction Letter General Adult HPI - General Chief complaint: ED Headache Stated complaint: weakness, headache Time Seen by Provider: 12/16/17 13:35 Source: patient Limitations: no limitations Nursing Notes Reviewed: Yes Vital Signs Reviewed: Yes - History of Present Illness Pain Scale: 10 - Related Data Home Medications Medication Instructions Recorded Confirmed Omeprazole [PriLOSEC] 20 mg PO QAM 06/11/15 11/29/17 Tamsulosin [Flomax] 0.4 mg PO QAM 06/11/15 11/29/17 Lisinopril 10 mg PO BID 08/10/15 11/29/17 Insulin Glargine,Hum.rec.anlog 20 unit SQ QAM 12/09/15 11/29/17 [Lantus Solostar] Acetaminophen/Butalbital/Caffe 1 each PO DAILY PRN 05/14/17 11/29/17 [Fioricet] Ferrous Sulfate [Iron] 325 mg PO DAILY 05/14/17 11/29/17 Gabapentin [Neurontin] 100 mg PO HS 05/14/17 11/29/17 Promethazine [Phenergan] 25 mg PO Q6HR PRN 05/14/17 11/29/17 Warfarin [Coumadin] 5 mg PO WE 05/15/17 11/29/17 Aspirin Enteric Coated [Aspirin EC] 81 mg PO DAILY 08/17/17 11/29/17 Atorvastatin Calcium [Lipitor] 80 mg PO HS 08/17/17 11/29/17 Levothyroxine Sodium [Synthroid] 300 mcg PO QAM 08/17/17 11/29/17 Warfarin [Coumadin] 7.5 mg PO SUMOTUTHFRSA 09/25/17 11/29/17 Previous Rx's Medication Instructions Recorded Nitroglycerin 0.4 mg SL Q5MIN PRN #14 tab.subl 08/22/17 Metoprolol [Lopressor] 12.5 mg PO BID #60 tablet 09/11/17 Isosorbide MONOnitrate (24 HR) 30 mg PO DAILY #30 tab.er.24h 10/18/17 [Imdur] Ranolazine [Ranexa] 1,000 mg PO BID #120 tab.er.12h 10/18/17 HYDROcodone/Acet 5/325 mg [[place] 1 - 2 tab PO QID PRN 3 Days #15 tab 11/21/17 5-325 mg] Tizanidine HCl [Zanaflex] 2 mg PO HS #15 cap 11/27/17 methylPREDNISolone [Medrol] 4 mg PO DAILY #1 tablet 11/27/17 Promethazine [Phenergan] 25 mg PO Q8HR PRN #10 tablet 12/01/17 Allergies Allergy/AdvReac Type Severity Reaction Status Date / Time No Known Allergies Allergy Verified 12/05/17 16:39 All systems ED: reviewed and negative except as stated. Review of Systems: As Per HPI Past Medical History - Past Medical History Medical history: Reports: atrial fibrillation, cancer, coronary artery disease, CVA, diabetes, hypertension, myocardial infarction, peripheral artery disease, SVT, thyroid disease Surgical history: Reports: angioplasty/stent, appendectomy, coronary bypass ( CABG), herniorrhaphy, LE vascular intervention, tracheostomy Psychiatric history: Reports: no psych history - Social History Smoking Status: Former smoker Smokeless Tobacco Status: No Alcohol use: Reports: none Drug use: Reports: none Physical Exam - General Limitations: no limitations General appearance: alert, in no apparent distress - Head Head exam: atraumatic, normocephalic - Eye Eye exam: Present: normal appearance, PERRL, EOMI. Absent: scleral icterus, conjunctival injection - Chest Chest inspection: Present: symmetric chest wall rise - Respiratory Respiratory exam: Present: normal lung sounds bilaterally - Cardiovascular Cardiovascular exam: Present: regular rate, normal rhythm, +S1, +S2 - Abdominal Exam Abdominal exam: Present: soft, tenderness, distention, normal bowel sounds. Absent: guarding, rebound, rigidity, Walter's sign, Rovsing's sign, tenderness at McBurney's Point Abdominal tenderness: Present: RUQ, mild - Extremities Exam Extremities exam: Present: normal inspection, normal capillary refill. Absent: tenderness, pedal edema - Expanded Lower Extremity Exam Neurovascular/Tendon exam: Present: normal capillary refill, motor deficit ( Left leg weaker than right). Absent: pulse deficit, sensory deficit - Neurological Exam Neurological exam: Present: alert, oriented X3 - Expanded Neurological Exam Patient oriented to: Present: person, place, time Speech: Present: fluid speech Cranial nerves: EOM function (II, III, IV, ): Normal, facial sensation (V): Normal, facial palsy (VII): Normal Course Vital Signs Temperature 98.5 F 12/16/17 13:36 Pulse Rate 74 12/16/17 13:36 Respiratory Rate 21 12/16/17 13:36 Blood Pressure 150/102 12/16/17 13:36 O2 Sat by Pulse Oximetry 100 12/16/17 13:36 Temperature 98.5 F 12/16/17 13:36 Pulse Rate 74 12/16/17 13:36 Respiratory Rate 21 12/16/17 13:36 Blood Pressure 150/102 12/16/17 13:36 O2 Sat by Pulse Oximetry 100 12/16/17 13:36 Oxygen Delivery Oxygen Delivery Room Air Medical Decision Making - Lab Data Result diagrams: 12/16/17 13:45 Lab Results 12/16/17 12/16/17 Range/Units 13:45 13:45 WBC 7.7 (4.3-11.1) K/mcL RBC 4.35 (4.19-5.50) M/mcL Hgb 12.1 L (12.9-16.9) g/dL Hct 38.4 (37.5-50.1) % MCV 88.3 (83.0-100.0) fL MCH 27.8 L (28.0-33.3) pg MCHC 31.5 L (31.6-35.5) g/dL RDW 14.6 H (11.5-14.5) % Plt Count 365 (140-400) K/mcL MPV 9.8 (9.4-12.4) fL Immature Gran % 0.8 (0-4) % Seg Neutrophils % 70.2 % Lymphocytes % 14.4 % Monocytes % 8.5 % Eosinophils % 5.6 % Basophils % 0.5 % Neutrophils # 5.4 (1.6-8.9) K/mcL Lymphocytes # 1.1 (0.6-4.6) K/mcL Monocytes # 0.7 (0.0-1.3) K/mcL Eosinophils # 0.4 (0.0-0.6) K/mcL Basophils # 0.0 (0.0-0.2) K/mcL PT 21.0 H (9.4-12.1) Seconds INR 1.9 APTT 36.1 H (26.0-36.0) Seconds
[2017-12-16] MEDS ORDERED: Ondansetron 4 MG/2 ML VIAL IVP ONE (14:26)
--- NOTE | 2017-12-16 14:31 | Emergency Department Note ---
Disposition Clinical Impression: CVA (cerebral vascular accident) Qualifiers: CVA mechanism: unspecified Qualified Code(s): I63.9 - Cerebral infarction, unspecified TIA (transient ischemic attack) Qualifiers: Transient cerebral ischemia type: unspecified Qualified Code(s): G45.9 - Transient cerebral ischemic attack, unspecified Disposition: Admitted As Inpatient Referrals: Peter Carlson MD [Primary Care Provider] - Forms: ED Satisfaction Letter Neuro HPI - General Chief Complaint: ED Headache Stated Complaint: weakness, headache Time Seen by Provider: 12/16/17 13:35 Source: patient Limitations: no limitations Nursing Notes Reviewed: Yes Vital Signs Reviewed: Yes - History of Present Illness HPI Narrative: 77-year-old male with past medical history of A. fib on coumadin, hypertension, nasopharyngeal cancer, CAD, and 2 prior CVAs presents emergency department with concerns of bilateral lower extremity weakness, left worse than right, that began last night (>12 hours of symptoms). He reports that he has difficulty with walking and reports he needs to drag his left leg. He does have some mild residual weakness in his right leg from prior CVA, but he denies any prior symptoms in his left leg. Denies any weakness in his upper extremity. He is also complaining of a generalized headache for the past 2 months, and nothing seems to help improve the pain. Associated symptoms include blurred vision, dysphagia, muffled hearing, slowed speech, nausea, and right upper quadrant pain. He denies any fevers, chills, chest pain, dyspnea, or leg swelling. - Related Data Home Medications: Home Medications Medication Instructions Recorded Confirmed Omeprazole [PriLOSEC] 20 mg PO QAM 06/11/15 11/29/17 Tamsulosin [Flomax] 0.4 mg PO QAM 06/11/15 11/29/17 Lisinopril 10 mg PO BID 08/10/15 11/29/17 Insulin Glargine,Hum.rec.anlog 20 unit SQ QAM 12/09/15 11/29/17 [Lantus Solostar] Acetaminophen/Butalbital/Caffe 1 each PO DAILY PRN 05/14/17 11/29/17 [Fioricet] Ferrous Sulfate [Iron] 325 mg PO DAILY 05/14/17 11/29/17 Gabapentin [Neurontin] 100 mg PO HS 05/14/17 11/29/17 Promethazine [Phenergan] 25 mg PO Q6HR PRN 05/14/17 11/29/17 Warfarin [Coumadin] 5 mg PO WE 05/15/17 11/29/17 Aspirin Enteric Coated [Aspirin EC] 81 mg PO DAILY 08/17/17 11/29/17 Atorvastatin Calcium [Lipitor] 80 mg PO HS 08/17/17 11/29/17 Levothyroxine Sodium [Synthroid] 300 mcg PO QAM 08/17/17 11/29/17 Warfarin [Coumadin] 7.5 mg PO SUMOTUTHFRSA 09/25/17 11/29/17 Previous Rx's Medication Instructions Recorded Nitroglycerin 0.4 mg SL Q5MIN PRN #14 tab.subl 08/22/17 Metoprolol [Lopressor] 12.5 mg PO BID #60 tablet 09/11/17 Isosorbide MONOnitrate (24 HR) 30 mg PO DAILY #30 tab.er.24h 10/18/17 [Imdur] Ranolazine [Ranexa] 1,000 mg PO BID #120 tab.er.12h 10/18/17 HYDROcodone/Acet 5/325 mg [Vantage 1 - 2 tab PO QID PRN 3 Days #15 tab 11/21/17 5-325 mg] Tizanidine HCl [Zanaflex] 2 mg PO HS #15 cap 11/27/17 methylPREDNISolone [Medrol] 4 mg PO DAILY #1 tablet 11/27/17 Promethazine [Phenergan] 25 mg PO Q8HR PRN #10 tablet 12/01/17 Allergies/Adverse Reactions: Allergies Allergy/AdvReac Type Severity Reaction Status Date / Time No Known Allergies Allergy Verified 12/05/17 16:39 All systems ED: reviewed and negative except as stated. Review of Systems: As Per HPI Past Medical History - Past Medical History Medical history: Reports: atrial fibrillation, cancer, coronary artery disease, CVA, diabetes, hypertension, myocardial infarction, peripheral artery disease, SVT, thyroid disease Surgical history: Reports: angioplasty/stent, appendectomy, coronary bypass ( CABG), herniorrhaphy, LE vascular intervention, tracheostomy Psychiatric history: Reports: no psych history - Social History Smoking Status: Former smoker Smokeless Tobacco Status: No Alcohol use: Reports: none Drug use: Reports: none Physical Exam - General Limitations: no limitations General appearance: alert, in no apparent distress - Head Head exam: atraumatic, normocephalic - Eye Eye exam: Present: normal appearance, PERRL, EOMI. Absent: scleral icterus, conjunctival injection - ENT ENT exam: mucous membranes moist - Chest Chest inspection: Present: symmetric chest wall rise - Respiratory Respiratory exam: Present: normal lung sounds bilaterally - Cardiovascular Cardiovascular exam: Present: regular rate, normal rhythm, +S1, +S2 - Abdominal Exam Abdominal exam: Present: soft, tenderness, distention, normal bowel sounds. Absent: guarding, rebound, rigidity, Walter's sign, Rovsing's sign, tenderness at McBurney's Point Abdominal tenderness: Present: RUQ, mild - Extremities Exam Extremities exam: Present: normal inspection, normal capillary refill. Absent: tenderness, pedal edema, calf tenderness - Expanded Lower Extremity Exam Neurovascular/Tendon exam: Present: normal capillary refill, motor deficit ( Left weaker than the right). Absent: pulse deficit, sensory deficit - Neurological Exam Neurological exam: Present: alert, oriented X3 - Expanded Neurological Exam Patient oriented to: Present: person, place, time Speech: Present: fluid speech Cranial nerves: EOM function (II, III, IV, ): Normal, facial sensation (V): Normal, facial palsy (VII): Normal, spinal accessory function (XI): Normal, tongue deviation (XII): Normal Motor strength - LUE: 5/5 Motor strength - RUE: 5/5 Motor strength - LLE: 4/5 Motor strength - RLE: 5/5 Upper motor neuron exam: de neglect: Absent bilaterally, pronator drift: Absent bilaterally Sensory exam upper extremity: light touch: Normal Sensory exam lower extremity: light touch: Normal DTR: patellar (L): 1+, patellar (R): 2+, Achilles tendon (L): 1+, Achilles tendon (R): 2+ - Skin Skin exam: Present: warm, dry, intact, normal color Course Vital Signs Temperature 98.5 F 12/16/17 13:36 Pulse Rate 74 12/16/17 13:36 Respiratory Rate 21 12/16/17 13:36 Blood Pressure 150/102 12/16/17 13:36 O2 Sat by Pulse Oximetry 100 12/16/17 13:36 Temperature 98.5 F 12/16/17 13:36 Pulse Rate 74 12/16/17 13:36 Respiratory Rate 21 12/16/17 13:36 Blood Pressure 150/102 12/16/17 13:36 O2 Sat by Pulse Oximetry 100 12/16/17 13:36 Oxygen Delivery Oxygen Delivery Room Air Neuro Symptoms/Deficit - MDM Narrative Medical decision making narrative: Patient symptom onset was last night prior to going to bed. This is at least greater than 12 hours before presentation to the hospital, he is outside the window for TPA administration. NIH score upon initial evaluation by Dr. Martinez was a score of 6 for bilateral lower extremity weakness. Upon reevaluation approximately later he was able to lift and hold his right leg without drift, and able to hold his left leg with drift but without hitting the bed, for NIH score of 1. CBC shows anemia of 12.1 and is consistent with prior evaluations. Chemistry and coags are unremarkable. Troponins negative. CT of the head/brain is stable without acute intracranial hemorrhage. Discussed the case with neurologist, Dr. Brown, who was less concerned that this was possibly a stroke, and would like to evaluate his lumbar region with an MRI. We will admit the patient to the hospital for further evaluation and management of CVA/ TIA. - Lab Data Result diagrams: 12/16/17 13:45 12/16/17 13:45 Lab Results 12/16/17 12/16/17 12/16/17 Range/Units 13:45 13:45 13:45 WBC 7.7 (4.3-11.1) K/mcL RBC 4.35 (4.19-5.50) M/mcL Hgb 12.1 L (12.9-16.9) g/dL Hct 38.4 (37.5-50.1) % MCV 88.3 (83.0-100.0) fL MCH 27.8 L (28.0-33.3) pg MCHC 31.5 L (31.6-35.5) g/dL RDW 14.6 H (11.5-14.5) % Plt Count 365 (140-400) K/mcL MPV 9.8 (9.4-12.4) fL Immature Gran % 0.8 (0-4) % Seg Neutrophils % 70.2 % Lymphocytes % 14.4 % Monocytes % 8.5 % Eosinophils % 5.6 % Basophils % 0.5 % Neutrophils # 5.4 (1.6-8.9) K/mcL Lymphocytes # 1.1 (0.6-4.6) K/mcL Monocytes # 0.7 (0.0-1.3) K/mcL Eosinophils # 0.4 (0.0-0.6) K/mcL Basophils # 0.0 (0.0-0.2) K/mcL PT 21.0 H (9.4-12.1) Seconds INR 1.9 APTT 36.1 H (26.0-36.0) Seconds Sodium 134 L (136-145) mEq/L Potassium 4.5 (3.5-5.1) mEq/L Chloride 106 (98-107) mEq/L Carbon Dioxide 21 L (23-29) mEq/L BUN 29 H (8-23) mg/dL Creatinine 0.87 (0.70-1.30) mg/dL Est GFR ( Amer) > 60 (> 60) Est GFR (Non-Af Amer) > 60 (> 60) BUN/Creatinine Ratio 33 H (6-26) Glucose 185 H (70-105) mg/dL Calculated Osmolality 289 (280-300) Calcium 9.2 (8.6-10.3) mg/dL Troponin I (< 0.04) ng/mL 12/16/17 Range/Units 13:45 WBC (4.3-11.1) K/mcL RBC (4.19-5.50) M/mcL Hgb (12.9-16.9) g/dL Hct (37.5-50.1) % MCV (83.0-100.0) fL MCH (28.0-33.3) pg MCHC (31.6-35.5) g/dL RDW (11.5-14.5) % Plt Count (140-400) K/mcL MPV (9.4-12.4) fL Immature Gran % (0-4) % Seg Neutrophils % % Lymphocytes % % Monocytes % % Eosinophils % % Basophils % % Neutrophils # (1.6-8.9) K/mcL Lymphocytes # (0.6-4.6) K/mcL Monocytes # (0.0-1.3) K/mcL Eosinophils # (0.0-0.6) K/mcL Basophils # (0.0-0.2) K/mcL PT (9.4-12.1) Seconds INR APTT (26.0-36.0) Seconds Sodium (136-145) mEq/L Potassium (3.5-5.1) mEq/L Chloride (98-107) mEq/L Carbon Dioxide (23-29) mEq/L BUN (8-23) mg/dL Creatinine (0.70-1.30) mg/dL Est GFR ( Amer) (> 60) Est GFR (Non-Af Amer) (> 60) BUN/Creatinine Ratio (6-26) Glucose (70-105) mg/dL Calculated Osmolality (280-300) Calcium (8.6-10.3) mg/dL Troponin I < 0.03 (< 0.04) ng/mL NIH Stroke Scale - Level of Consciousness LOC: Alert - LOC Questions LOC Questions: Answers both correctly - LOC Commands LOC Commands: Performs both correctly - Best Gaze Best Gaze: Normal - Visual Visual: No visual loss - Facial Palsy Facial Palsy: Normal - Motor Arms Motor Arm-Left: No drift for 10 seconds Motor Arm-Right: No drift for 10 seconds - Motor Legs Motor Leg-Left: Drift, does NOT hit bed Motor Leg-Right: No drift for 5 seconds - Limb Ataxia Limb Ataxia: Normal, No Ataxia - Sensory Sensory: Normal - Best Language Best Language: No aphasia - Dysarthria Dysarthria: Normal - Extinction and Inattention Extinction and Inattention: Normal - NIHSS Total Score NIHSS Total Score: 1 TPA Checklist - LKW: 3-4.5 hrs Add. Warnings/Precautions Patient/family understanding: The patient/family members have been counseled and understood the risk, benefit , and alternatives of treatment. Critical Care Time Critical Care Time: Yes Total Critical Care Time: 35 Attestation: Critical care time 35 minutes. Attestation Statement - Attestation Attestation: Patient was seen with resident physician. I reviewed the history, physical, assessment and plan, and agree with the findings. I also personally evaluated this patient and had [id number] time with this patient. 77-year-old male presents to emergency Department chief complaint weakness in the lower extremities bilaterally but left worse than right. Symptom onset was late last night. The patient had well over 12 hours of symptoms prior to arrival in the emergency department. He notes that he is having more difficult time walking which ultimately prompted his visit. He says that he is not had any slurred speech loss of consciousness or other complaints of that nature. On examination vital signs are stable. ENT is unremarkable. Heart and lungs are normal. Abdomen is soft and nontender. Extremities are unremarkable. Neurologically patient has decreased strength in the lower extremities bilaterally left slightly worse than right. Initial NIH score was approximately 6 because of lower extremity weakness and inability to perform tasks with that. Repeat NIH score approximately 20-30 minutes later was a 1 as is strength had improved. Skin showed no rashes and psych was normal. ED course stroke alert was not called because of the time of onset of symptoms was too far out to get TPA or any other such therapy. Head CT scan did not reveal acute abnormalities. Labs are largely unremarkable. Patient continuously improved throughout his stay. We discussed case with neurology. We will admit the patient to the hospital service for further evaluation and treatment. Critical care time 35 minutes.
[2017-12-16 14:33] LABS: BUN/Creatinine Ratio 33 (6-26); Blood Urea Nitrogen 29 mg/dL (8-23); Calcium 9.2 mg/dL (8.6-10.3); Carbon Dioxide 21 mEq/L (23-29); Chloride 106 mEq/L (98-107); Glucose 185 mg/dL (70-105); Osmolality,Calculated 289 (280-300); Potassium 4.5 mEq/L (3.5-5.1); Sodium 134 mEq/L (136-145); eGFR For African Americans > 60 (> 60); eGFR For Non-African Americans > 60 (> 60)
[2017-12-16] MEDS ORDERED: Ondansetron 4 MG/2 ML VIAL IVP PRN (18:15)
[2017-12-16] MEDS ORDERED: Naloxone 0.4 MG/ML INJ IVP PRN ×2 (18:15)
[2017-12-16] MEDS ORDERED: Nitroglycerin 0.4 MG TAB.SUBL SL PRN (18:21)
[2017-12-16] MEDS ORDERED: Acetaminophen/Butalbital/CaffeineTABLET PO PRN (18:21)
--- NOTE | 2017-12-16 18:42 | Internal Med History&Physical ---
<Stephanie Monique M - Last Filed: 12/16/17 20:01> Date of Encounter: 12/16/17 Time of Encounter: 18:31 Assessment and Plan (1) TIA (transient ischemic attack) Current visit: Yes Status: Acute Patient reports BLE weakness, left worse than right starting yesterday, bad enough that his left leg was dragging on the ground when he tried to walk. 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 His symptoms improved while in the ED and by the time of my eval, he had equal strength bilaterally. CT of the Brain showed nothing acute. Neuro was consulted, and Dr. Brown ordered MRI of Brain as well as MRI of lumbar spine. 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 Qualifiers: Transient cerebral ischemia type: unspecified Qualified Code(s): G45.9 - Transient cerebral ischemic attack, unspecified (2) Dysphagia Current visit: Yes Status: Acute Patient reports difficulty swallowing lately. 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 He also has history of esophageal stricture in the past s/p dilation. NPO until evaluation by Speech therapy. Consider consultation to GI depending on speech eval. Qualifiers: Dysphagia type: oropharyngeal phase Qualified Code(s): R13.12 - Dysphagia, oropharyngeal phase (3) Atrial fibrillation Current visit: Yes Status: Chronic Heart with regular rate and rhythm today. Continue home dose of metoprolol. Pharmacy to dose coumadin. Qualifiers: Atrial fibrillation type: paroxysmal Qualified Code(s): I48.0 - Paroxysmal atrial fibrillation (4) Nasopharyngeal cancer Current visit: Yes Status: Chronic Patient has history of nasopharyngeal cancer, s/p surgery, chemo and radiation and in remission for 10 years per patient. In the last 2 months, patient reports severe, unrelenting headache, face pain, neck pain, poor appetite, difficulty swallowing and weight loss of 8 pounds in the last 2 months. Patient is concerned about a recurrence of cancer. He has been in touch with his oncology office and is in the process of work up, but has not yet had a PET scan. He does have lymphadenopathy and tenderness of his head and neck. Consider consultation to oncology and/or ENT. Please see recent outpatient oncology note from 11/2017. (5) Abdominal pain Current visit: Yes Status: Acute Patient reporting pain and bulging to right side of abdomen. This has been going on for some time, and has been previously evaluated with CT of Abdomen and pelvis 10/16/17. Patient reports bowel movements are regular for him recently. Positive bowel sounds. Abdomen soft, with tenderness to right side. NPO until evaluation by Speech. Qualifiers: Abdominal location: right upper quadrant Qualified Code(s): R10.11 - Right upper quadrant pain (6) Hypertension Current visit: Yes Status: Chronic Hypertension with blood pressure of 150/102 initially, follow up reading 127/ 63. Continue home doses of metoprolol, lisinopril, amlodipine, and imdur. monitor VS q4hr. Qualifiers: Hypertension type: essential hypertension Qualified Code(s): I10 - Essential (primary) hypertension (7) Headache Current visit: Yes Status: Chronic Patient complains of constant, unrelenting headache for the last 2 months. He reports advil and tylenol do not help. This may be related to history of nasopharyngeal cancer and is established with pain management, Dr. Daley. PRN tylenol, oral oxycodone for pain. Continue home dose of fiorcet, neurontin , topamax. Narcan prn for respiratory depression. Qualifiers: Headache type: unspecified Headache chronicity pattern: chronic headache Intractability: not intractable Qualified Code(s): R51 - Headache (8) Type 2 diabetes mellitus Current visit: Yes Status: Acute NPO until evaluation by speech. Check blood sugars Q6hr sliding scale correction dose Q6hr hypoglycemic protocol. 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 No chest pain today. Denies SOB. Cardiac cath 09/04/17 showed severe three vessel coronary artery disease, left ventricle has normal contractility EF 50%, successful PTCA/Drug-Eluting Stent placement in the distal Circ., S/P CABG 1 of 3 patent bypass grafts, Left to Right collaterals seen to DA. Continue home doses of metoprolol, imdur. Nitro prn for chest pain. 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 Qualifiers: Coronary Disease-Associated Artery/Lesion type: bypass graft [place] vs. transplanted heart: [place] heart Associated angina: with stable angina Qualified Code(s): I25.708 - Atherosclerosis of coronary artery bypass graft(s) , unspecified, with other forms of angina pectoris (10) DVT prophylaxis Current visit: Yes Status: Acute Anti-embolic stockings. Patient on coumadin for history of afib. Additional pharmacologic prophylaxis not warranted. Internal Medicine - H&P: HPI Chief complaint: LE weakness, headache Admitted From: Emergency Dept Plans for Post Hospital Care: Home History of present illness: Mr. Salmeron is a 77 year old male with hypertension, A. fib, on Coumadin, coronary artery disease status post stent placement, CVA 2, diabetes, peripheral artery disease, CHF, history of bleeding gastric ulcer, history of nasopharyngeal cancer status post surgery, chemotherapy, radiation, tracheostomy , who presented to the emergency department today with complaints of lower extremity weakness. Patient reports he has a history of right-sided weakness from prior CVA, but noted left-sided weakness yesterday, to the point where he was dragging his left leg while walking. He also reports slurred speech that started in the last couple of days. He denies having numbness or tingling in his lower extremities. He reports over the last 2 months he has had a constant headache, not relieved by anything, he reports the top of his head is tender, he also has pain, and tenderness in his face and neck. He reports poor appetite over the last several months, with weight loss of approximately 8 pounds. He reports blurred vision, change in hearing, trouble swallowing, nausea, and right upper quadrant pain. Evaluation emergency department included a CT of the head and brain which showed no acute changes. Troponin was negative at less than 0.03. INR was therapeutic at 1.9. Chemistry was grossly normal. Blood pressure is initially elevated at 150/102, but came down on second rate of 127/63. He is afebrile. Neurology was consulted, and they ordered an MRI of the head and brain and MRI of the lumbar spine. On exam, patient is alert and oriented, in no acute distress. He is tender to palpation on the top of his head, he has lymphadenopathy and tenderness in the preauricular lymph nodes as well as the superficial cervical lymph nodes bilaterally. A tracheostomy is present. Cranial nerves intact. On my exam she has equal strength bilaterally in his lower extremities, and upper extremities, with no pronator drift. Bilateral lower extremities are cold, but he does have +1 pulses, 3 second capillary refills. Heart has regular rate and rhythm, lungs are clear bilaterally to auscultation. Abdomen is soft, tender on the right side, with right-sided bulge, which appears to be possible hernia. Bowel sounds are normal. Patient is concerned that his symptoms represent a return of his cancer. He reports he has been in touch with his oncologist, and PET scan is ordered. Past Med Surg Social Fam HX - Past Medical History Medical history: atrial fibrillation, cancer, coronary artery disease, CVA, diabetes, hypertension, myocardial infarction, peripheral artery disease, SVT, thyroid disease Psychiatric history: no psych history - Past Surgical History Surgical History: angioplasty/stent, appendectomy, coronary bypass (CABG), herniorrhaphy, LE vascular intervention, tracheostomy - Social History Smoking Status: Former smoker Smokeless Tobacco Status: No Alcohol use: none Drug use: none - Family History Mother Living Status: Hx Family Cardiac Disorders: No Hx Family Respiratory Disorders: No Hx Family Cancer: No Hx Family GI Disorders: No Hx Family Endocrine Disorder: No Hx Family Neuromuscular Disorders: No Hx Family Neurologic Disorders: No Hx Family HEENT Disorders: No Hx Family Autoimmune Disorders: No Father Living Status: Hx Family Cardiac Disorders: No Hx Family Respiratory Disorders: No Hx Family Cancer: No Hx Family GI Disorders: No Hx Family Endocrine Disorder: No Hx Family Neuromuscular Disorders: No Hx Family Neurologic Disorders: No Hx Family HEENT Disorders: No Hx Family Autoimmune Disorders: No Sister Living Status: Hx Family Cancer: Yes (lung cancer) Internal Medicine - H&P: Meds Omeprazole [PriLOSEC] 20 mg PO QAM 06/11/15 [History] Tamsulosin [Flomax] 0.4 mg PO QAM 06/11/15 [History] Lisinopril 10 mg PO BID 08/10/15 [History] Insulin Glargine,Hum.rec.anlog [Lantus Solostar] 20 unit SQ QAM 12/09/15 [ History] Acetaminophen/Butalbital/Caffe [Fioricet] 1 tab PO DAILY PRN 05/14/17 [History] Gabapentin [Neurontin] 300 mg PO BID 05/14/17 [History] Promethazine [Phenergan] 25 mg PO Q6HR PRN 05/14/17 [History] Warfarin [Coumadin] 5 mg PO SUWETHFRSA 05/15/17 [History] Aspirin Enteric Coated [Aspirin EC] 81 mg PO DAILY 08/17/17 [History] Atorvastatin Calcium [Lipitor] 80 mg PO HS 08/17/17 [History] Levothyroxine Sodium [Synthroid] 300 mcg PO QAM 08/17/17 [History] Nitroglycerin 0.4 mg SL Q5MIN PRN #14 tab.subl 08/22/17 [Rx] Metoprolol [Lopressor] 12.5 mg PO BID #60 tablet 09/11/17 [Rx] Warfarin [Coumadin] 7.5 mg PO MOTU 09/25/17 [History] Isosorbide MONOnitrate (24 HR) [Imdur] 30 mg PO DAILY #30 tab.er.24h 10/18/17 [ Rx] Tizanidine HCl [Zanaflex] 2 mg PO HS #15 cap 11/27/17 [Rx] BuPROPion XL (24 HR) [Wellbutrin XL] 150 mg PO DAILY 12/16/17 [History] Cyclobenzaprine HCl 5 mg PO HS 12/16/17 [History] Ezetimibe [Zetia] 10 mg PO DAILY 12/16/17 [History] Metformin HCl [Metformin HCl ER] 500 mg PO DAILY 12/16/17 [History] Sertraline [Zoloft] 100 mg PO DAILY 12/16/17 [History] Topiramate [Topamax] 50 mg PO HS 12/16/17 [History] amLODIPine [Norvasc] 5 mg PO DAILY 12/16/17 [History] 3 Allergy/AdvReac Type Severity Reaction Status Date / Time No Known Allergies Allergy Verified 12/05/17 16:39 All Systems PM: A 10-system review of systems was performed and is negative for pertinent findings except as documented above in the HPI. - Constitutional Constitutional: anorexia, lethargy, weakness, weight loss, no chills, no fever(s ), no night sweats - EENT Eyes: blurry vision, change in vision, no discharge, no pain, no photophobia Ears: decreased hearing, no ear discharge, no ear pain, no tinnitus Nose, mouth and throat: dysphagia, facial pain, neck pain, no nasal discharge, no sore throat - Cardiovascular Cardiovascular ROS IM: no chest pain, no diaphoresis, no dyspnea, no lightheadedness, no palpitations, no syncope - Respiratory Respiratory: no cough, no dyspnea, no wheezing, no excessive phlegm production - Gastrointestinal Gastrointestinal: abdominal pain, nausea, no diarrhea, no hematemesis, no hematochezia, no melena, no vomiting - Genitourinary Genitourinary ROS male: urinary incontinence - Musculoskeletal Musculoskeletal ROS IM: no numbness, no tingling - Integumentary Integumentary IM: no rash, no unusual bruising - Neurological Neurological ROS: focal weakness (BLE L>R), no confusion, no convulsions, no numbness, no tingling, no tremor(s) - Psychiatric Psychiatric: depression - Hematologic/Lymphatic Hematologic/Lymphatic: no easy bruising - Constitutional Vitals: Temp Pulse Resp BP Pulse Ox 98.2 F 77 18 138/65 94 12/16/17 17:49 12/16/17 17:49 12/16/17 17:49 12/16/17 17:49 12/16/17 17:49 General appearance: Present: A&O X 3, pleasant, no acute distress - Head Head exam: Present: atraumatic, normocephalic Additional comments: Tenderness to palpation at crown of head. - Eye Eye exam: Present: conjunctival injection, PERRL, conjuntiva pink, sclera anicteric Pupils: Present: PERRL - Neck Neck exam general surgery: Present: lymphadenopathy, tenderness (over lymphadenopathy), supple, trachea midline - Respiratory Respiratory exam: Present: CTAB. Absent: accessory muscle use, rales, rhonchi, wheezes - Cardiovascular Cardiovascular exam: Present: RRR, +S1, +S2. Absent: diastolic murmur, gallop, rubs, systolic murmur - GI/Abdominal GI/Abdominal exam: Present: hernia, normal bowel sounds, soft, tenderness ( right sided), no peritoneal signs. Absent: distended - Extremities Exam Extremities exam: Present: radial pulses palpable and symmetrical. Absent: calf tenderness, cyanotic, normal capillary refill (3 second capillary refill), pedal edema - Neurological Exam Neurological exam: Present: CN II-XII intact, oriented X3, strengths equal and symetr throughout, speech deficit (slurred speech). Absent: pronater drift, facial droop - Skin Skin exam: Present: dry, intact Internal Med - H&P Results - Labs CBC & Chem 7: 12/16/17 13:45 12/16/17 13:45 - Impressions ITS Impressions Brain MRI 12/16/17 15:57 IMPRESSION: Chronic involutional changes. Old infarcts as above. D/ / Elijah Gatica MD / Elijah Gatica MD Interpreting Provider: Elijah Gatica MD Lumbar Spine MRI 12/16/17 15:57 IMPRESSION: Multilevel degenerative changes of the lumbar spine, with spinal canal stenosis most severe at L2-L3. Multiple levels of moderate to severe neural foraminal stenosis as detailed above. Small amount of fluid signal within L2-L3 intervertebral disc, with adjacent vertebral body marrow edema. There is suggestion of endplate destruction. On the previous CT examination on 10/16/2017, there was a gas within this disc space. Findings likely represent advanced degenerative changes, however, this should be correlated with any clinically concern for early discitis osteomyelitis. Possible small area of enhancement at the T12 vertebral level within the spinal canal. This appeared to be associated with the conus and cauda equina. This is only seen on sagittal sequences, as high-resolution axial sequences do not extend to the thoracic spine. This is probably a prominent vascular structure, however, pathologic vascular enhancement from leptomeningeal disease, including infectious and inflammatory process cannot be excluded. Clinical correlation is recommended. Follow-up thoracic spine examination may be obtained for more complete evaluation. Susceptibility artifact anterior to the vertebral bodies, likely secondary to aortic stent graft. This somewhat limits evaluation of vertebral body marrow at multiple levels. D/ /16/2017 18:07:00 Ramiro Culp MD / anthony Interpreting Provider: Ramiro Culp MD - Diagnostic Studies CT scan - head Additional comments: Head CT 12/16/17 13:39 IMPRESSION: Overall stable examination without convincing evidence for acute intracranial pathology. D/ / Victor Hugo Benito MD / Victor Hugo Benito MD Interpreting Provider: Victor Hugo Benito MD MRI - head Additional comments: Brain MRI 12/16/17 15:57 IMPRESSION: Chronic involutional changes. Old infarcts as above. D/ / Elijah Gatica MD / Elijah Gatica MD Interpreting Provider: Elijah Gatica MD Other Images Additional comments: Lumbar Spine MRI 12/16/17 15:57 IMPRESSION: Multilevel degenerative changes of the lumbar spine, with spinal canal stenosis most severe at L2-L3. Multiple levels of moderate to severe neural foraminal stenosis as detailed above. Small amount of fluid signal within L2-L3 intervertebral disc, with adjacent vertebral body marrow edema. There is suggestion of endplate destruction. On the previous CT examination on 10/16/2017, there was a gas within this disc space. Findings likely represent advanced degenerative changes, however, this should be correlated with any clinically concern for early discitis osteomyelitis. Possible small area of enhancement at the T12 vertebral level within the spinal canal. This appeared to be associated with the conus and cauda equina. This is only seen on sagittal sequences, as high-resolution axial sequences do not extend to the thoracic spine. This is probably a prominent vascular structure, however, pathologic vascular enhancement from leptomeningeal disease, including infectious and inflammatory process cannot be excluded. Clinical correlation is recommended. Follow-up thoracic spine examination may be obtained for more complete evaluation. Susceptibility artifact anterior to the vertebral bodies, likely secondary to aortic stent graft. This somewhat limits evaluation of vertebral body marrow at multiple levels. D/ : / 12/16/2017 18:07:00 Ramiro Cupl MD / anthony Interpreting Provider: Ramiro Culp MD <Ronaldo Gasca P - Last Filed: 12/16/17 22:59> Date of Encounter: 12/16/17 Internal Medicine - H&P: [facility] History of present illness: Mr. Salmeron is a 77 year old male All Systems PM: A 10-system review of systems was performed and is negative for pertinent findings except as documented above in the HPI. - Constitutional Vitals: Temp Pulse Resp BP Pulse Ox 98.2 F 77 18 138/65 94 12/16/17 17:49 12/16/17 17:49 12/16/17 17:49 12/16/17 17:49 12/16/17 17:49 Internal Med - H&P Results - Labs CBC & Chem 7: 12/16/17 13:45 12/16/17 13:45 Labs: Cardiac Enzymes 12/16/17 Range/Units 20:36 Troponin I < 0.03 (< 0.04) ng/mL - Impressions ITS Impressions Brain MRI 12/16/17 15:57 IMPRESSION: Chronic involutional changes. Old infarcts as above. D/ / Elijah Gatica MD / Elijah Gatica MD Interpreting Provider: Elijah Gatica MD Lumbar Spine MRI 12/16/17 15:57 IMPRESSION: Multilevel degenerative changes of the lumbar spine, with spinal canal stenosis most severe at L2-L3. Multiple levels of moderate to severe neural foraminal stenosis as detailed above. Small amount of fluid signal within L2-L3 intervertebral disc, with adjacent vertebral body marrow edema. There is suggestion of endplate destruction. On the previous CT examination on 10/16/2017, there was a gas within this disc space. Findings likely represent advanced degenerative changes, however, this should be correlated with any clinically concern for early discitis osteomyelitis. Possible small area of enhancement at the T12 vertebral level within the spinal canal. This appeared to be associated with the conus and cauda equina. This is only seen on sagittal sequences, as high-resolution axial sequences do not extend to the thoracic spine. This is probably a prominent vascular structure, however, pathologic vascular enhancement from leptomeningeal disease, including infectious and inflammatory process cannot be excluded. Clinical correlation is recommended. Follow-up thoracic spine examination may be obtained for more complete evaluation. Susceptibility artifact anterior to the vertebral bodies, likely secondary to aortic stent graft. This somewhat limits evaluation of vertebral body marrow at multiple levels. D/ / 12/16/2017 18:07:00 Ramiro Culp MD / anthony Interpreting Provider: Ramiro Culp MD - Attending Attestation I examined this patient and my medical decision-making was reviewed with the Resident Physician/RN TELEMETRY. I agree with the documented findings, disposition and treatment plan as described except to the extent set forth below. 77/male Multiple comorbid conditions. Admitted with TIA. Patient does not have back pain MRI head: No acute infarct, multiple old infarcts in. MRI spine: Concern for osteomyelitis raised May need evaluation of a spine surgery tomorrow Plan: Will start empirically on vancomycin after blood cultures. Follow up on the blood cultures/spine surgery review tomorrow.
[2017-12-16] MEDS ORDERED: *HR* Dextrose 50 % in Water (Syg) 50 ML SYRINGE IVP PRN (18:49)
[2017-12-16] MEDS ORDERED: D5% in Water 1,000 ML IVC PRN (18:49)
[2017-12-16] MEDS ORDERED: Dextrose Gel 15 GM/37.5 ML TUBE PO PRN ×2 (18:49)
[2017-12-16] MEDS ORDERED: *HR* Warfarin 5 MG TABLET PO ONE (19:07)
[2017-12-16] MEDS: OXYCODONE Oral CONC 10 MG/0.5 ML ORAL.SYG SL PRN (20:01)
[2017-12-16] MEDS: Gabapentin 300 MG CAPSULE PO SCH (20:03)
[2017-12-16] MEDS: tiZANidine 4 MG TABLET PO SCH (20:03)
[2017-12-16] MEDS: Topiramate 25 MG TABLET PO SCH (20:03)
[2017-12-16] MEDS ORDERED: Acetaminophen 650 MG RECTAL SUPP RC PRN (23:42)
[2017-12-16] MEDS ORDERED: *HR* FentaNYL (PF) 100 MCG/2 ML VIAL IVP ONE (23:45)
[2017-12-17] MEDS: Insulin LISPRO 300 UNITS/3 ML VIAL SQ SCH ×4 (00:29→18:53)
[2017-12-17] MEDS: OXYCODONE Oral CONC 10 MG/0.5 ML ORAL.SYG SL PRN ×4 (02:20→18:46)
[2017-12-17 08:08] LABS: Hematocrit 36.9 % (37.5-50.1); Hemoglobin 11.8 g/dL (12.9-16.9); Immature Platelets 3.3 % (1.1-6.1); Mean Corpuscular Hemoglobin 28.1 pg (28.0-33.3); Mean Corpuscular Volume 87.9 fL (83.0-100.0); Mean Platelet Volume 9.9 fL (9.4-12.4); Red Blood Count 4.2 M/mcL (4.19-5.50); Red Cell Distribution Width 14.6 % (11.5-14.5)
[2017-12-17 08:13] LABS: Prothrombin Time 21.9 Seconds (9.4-12.1)
[2017-12-17 08:15] LABS: Activated Partial Thrombo Time 36.7 Seconds (26.0-36.0)
[2017-12-17 08:37] LABS: Alanine Aminotransferase 34 Units/L (7-52); Albumin 3.4 g/dL (3.5-5.7); Albumin/Globulin Ratio 0.9 (1.1-2.2); Alkaline Phosphatase 109 Units/L (34-104); Aspartate Amino Transferase 20 Units/L (13-39); BUN/Creatinine Ratio 30 (6-26); Bilirubin,Total 0.5 mg/dL (0.3-1.0); Blood Urea Nitrogen 27 mg/dL (8-23); Calcium 9.5 mg/dL (8.6-10.3); Carbon Dioxide 21 mEq/L (23-29); Chloride 106 mEq/L (98-107); Globulin 3.9 g/dL (2.4-3.5); Glucose 145 mg/dL (70-105); Osmolality,Calculated 288 (280-300); Potassium 4.5 mEq/L (3.5-5.1); Sodium 135 mEq/L (136-145); Total Protein 7.3 g/dL (6.4-8.9); eGFR For African Americans > 60 (> 60); eGFR For Non-African Americans > 60 (> 60)
[2017-12-17] MEDS: Aspirin Enteric Coated 81 MG Tablet PO SCH (12:31)
[2017-12-17] MEDS: Gabapentin 300 MG CAPSULE PO SCH ×2 (12:31→20:37)
[2017-12-17] MEDS: Isosorbide MONOnitrate (24 HR) 30 MG TAB.ER.24H PO SCH (12:31)
[2017-12-17] MEDS: BuPROPion XL (24 HR) 150 MG TABLET PO SCH (12:32)
[2017-12-17] MEDS: amLODIPine 5 MG TABLET PO SCH (12:32)
[2017-12-17] MEDS: (Ezetimibe [Zetia] 10 MG) PO SCH (12:32)
--- NOTE | 2017-12-17 13:36 | Neurology - Consult Note ---
Date of Encounter: 12/17/17 Time of Encounter: 13:29 Assessment and Plan (1) Leg weakness, bilateral Current Visit: Yes Status: Acute I did not appreciate any lateralality in terms of the leg weakness. He is able to stand up but legs appear shaky. MRI of brain negative for [employer] pathology. I think that the leg weakness is mostly peripheral in nature, due to findings of areflexia and the fact that he has insuliin dependent diabetic make peripheral diabetic neuropathy almost a certainty. He also has lumbar disc disease but currently has no radicular type of pain. Will follow with Radiologist's recommendation to get MRI of thoracic spine for complete assessment. Please continue medical and supportive care. Total time spent on this patient is approximately 60 minutes. (2) Headache Current Visit: Yes Status: Chronic Chronic tension type of head, not associated with focal neurological deficits, treatment is largely empirical. Qualifiers: Headache type: unspecified Headache chronicity pattern: chronic headache Intractability: not intractable Qualified Code(s): R51 - Headache History of Present Illness Chief complaint: leg weakness HPI: Mr. Salmeron is a 77 year old male with PMH significant for BPH, back pain, PVD, chronic headache, atrial fibrillation on chronic anticoagulation, lumbar DDD, HTN, DM and diabetic neuropathy who presented to ER with new onset of leg weakness. It was reported by the ER physician that he has developed left leg weakness which is new. He has had right leg weakness in the past. This time the left leg is weak. therefore initially he was admitted for stroke work up. He is on coumadin and INR was 1.9 at the time of arrival at ER. He does have history of back pain but he denies any significant of pain. He has diabetis and uses insulin but he denies any numbness to his feet. At the time of this interview, he completed MRI of brain which showed no acute infarct. MRI of lumbar spine: IMPRESSION: 1. Multilevel degenerative changes of the lumbar spine, with spinal canal stenosis most severe at L2-L3, as detailed above. Multiple levels of moderate to severe neural foraminal stenosis as detailed above. 2. Small amount of fluid signal within L2-L3 intervertebral disc, with adjacent vertebral body marrow edema. There is suggestion of endplate changes. On the previous CT examination on 10/16/2017, there was a gas within this disc space. Findings likely represent advanced degenerative changes, however, this should be correlated with any clinically concern for early discitis osteomyelitis. 3. Possible small area of enhancement within spinal canal at T12 vertebral level within the spinal canal. This appeared to be associated with conus. This is only seen on sagittal sequences, as axial sequences do not extend to thoracic spine. This is probably prominent vascular structure/vein, however, pathologic vascular enhancement from leptomeningeal process, including infectious and inflammatory process cannot be excluded. Follow-up thoracic spine examination may be obtained for more complete evaluation. Patient also complains of having refractory headaches for about two weeks. He describes a headache that is allover and that his skull is sore. He does have chronic tension headache per history Past Med Surg Social Fam HX - Past Medical History Medical history: atrial fibrillation, cancer, coronary artery disease, CVA, diabetes, hypertension, myocardial infarction, peripheral artery disease, SVT, thyroid disease Psychiatric history: no psych history - Past Surgical History Surgical History: angioplasty/stent, appendectomy, coronary bypass (CABG), herniorrhaphy, LE vascular intervention, tracheostomy - Social History Smoking Status: Former smoker Smokeless Tobacco Status: No Alcohol use: none Drug use: none - Family History Mother Living Status: Hx Family Cardiac Disorders: No Hx Family Respiratory Disorders: No Hx Family Cancer: No Hx Family GI Disorders: No Hx Family Endocrine Disorder: No Hx Family Neuromuscular Disorders: No Hx Family Neurologic Disorders: No Hx Family HEENT Disorders: No Hx Family Autoimmune Disorders: No Father Living Status: Hx Family Cardiac Disorders: No Hx Family Respiratory Disorders: No Hx Family Cancer: No Hx Family GI Disorders: No Hx Family Endocrine Disorder: No Hx Family Neuromuscular Disorders: No Hx Family Neurologic Disorders: No Hx Family HEENT Disorders: No Hx Family Autoimmune Disorders: No Sister Living Status: Hx Family Cancer: Yes (lung cancer) Medications and Allergies Omeprazole [PriLOSEC] 20 mg PO QAM 06/11/15 [History] Tamsulosin [Flomax] 0.4 mg PO QAM 06/11/15 [History] Lisinopril 10 mg PO BID 08/10/15 [History] Insulin Glargine,Hum.rec.anlog [Lantus Solostar] 20 unit SQ QAM 12/09/15 [ History] Acetaminophen/Butalbital/Caffe [Fioricet] 1 tab PO DAILY PRN 05/14/17 [History] Gabapentin [Neurontin] 300 mg PO BID 05/14/17 [History] Promethazine [Phenergan] 25 mg PO Q6HR PRN 05/14/17 [History] Warfarin [Coumadin] 5 mg PO SUWETHFRSA 05/15/17 [History] Aspirin Enteric Coated [Aspirin EC] 81 mg PO DAILY 08/17/17 [History] Atorvastatin Calcium [Lipitor] 80 mg PO HS 08/17/17 [History] Levothyroxine Sodium [Synthroid] 300 mcg PO QAM 08/17/17 [History] Nitroglycerin 0.4 mg SL Q5MIN PRN #14 tab.subl 08/22/17 [Rx] Metoprolol [Lopressor] 12.5 mg PO BID #60 tablet 09/11/17 [Rx] Warfarin [Coumadin] 7.5 mg PO MOTU 09/25/17 [History] Isosorbide MONOnitrate (24 HR) [Imdur] 30 mg PO DAILY #30 tab.er.24h 10/18/17 [ Rx] Tizanidine HCl [Zanaflex] 2 mg PO HS #15 cap 11/27/17 [Rx] BuPROPion XL (24 HR) [Wellbutrin XL] 150 mg PO DAILY 12/16/17 [History] Cyclobenzaprine HCl 5 mg PO HS 12/16/17 [History] Ezetimibe [Zetia] 10 mg PO DAILY 12/16/17 [History] Metformin HCl [Metformin HCl ER] 500 mg PO DAILY 12/16/17 [History] Sertraline [Zoloft] 100 mg PO DAILY 12/16/17 [History] Topiramate [Topamax] 50 mg PO HS 12/16/17 [History] amLODIPine [Norvasc] 5 mg PO DAILY 12/16/17 [History] 3 Allergy/AdvReac Type Severity Reaction Status Date / Time No Known Allergies Allergy Verified 12/05/17 16:39 All Systems: The remainder of the systems were reviewed and are negative Physical Examination - Vital Signs Vital Signs: Initial Vital Signs Temp Pulse Resp BP Pulse Ox 98.5 F 74 21 150/102 100 12/16/17 13:36 12/16/17 13:36 12/16/17 13:36 12/16/17 13:36 12/16/17 13:36 Results - Laboratory Findings CBC and BMP: 12/17/17 07:32 12/17/17 07:32 Abnormal lab findings: Abnormal lab results Hgb 11.8 g/dL (12.9-16.9) L 12/17/17 07:32 Hct 36.9 % (37.5-50.1) L 12/17/17 07:32 RDW 14.6 % (11.5-14.5) H 12/17/17 07:32 PT 21.9 Seconds (9.4-12.1) H 12/17/17 07:32 APTT 36.7 Seconds (26.0-36.0) H 12/17/17 07:32 Sodium 135 mEq/L (136-145) L 12/17/17 07:32 Carbon Dioxide 21 mEq/L (23-29) L 12/17/17 07:32 BUN 27 mg/dL (8-23) H 12/17/17 07:32 BUN/Creatinine Ratio 30 (6-26) H 12/17/17 07:32 Glucose 145 mg/dL (70-105) H 12/17/17 07:32 POC Glucose 128 (58-89) H 12/17/17 05:37 Alkaline Phosphatase 109 Units/L (34-104) H 12/17/17 07:32 Albumin 3.4 g/dL (3.5-5.7) L 12/17/17 07:32 Globulin 3.9 g/dL (2.4-3.5) H 12/17/17 07:32 Albumin/Globulin Ratio 0.9 (1.1-2.2) L 12/17/17 07:32 - Diagnostic Findings Additional findings: MR/MR lumbar spine wo/w con IMPRESSION: 1. Multilevel degenerative changes of the lumbar spine, with spinal canal stenosis most severe at L2-L3, as detailed above. Multiple levels of moderate to severe neural foraminal stenosis as detailed above. 2. Small amount of fluid signal within L2-L3 intervertebral disc, with adjacent vertebral body marrow edema. There is suggestion of endplate changes. On the previous CT examination on 10/16/2017, there was a gas within this disc space. Findings likely represent advanced degenerative changes, however, this should be correlated with any clinically concern for early discitis osteomyelitis. 3. Possible small area of enhancement within spinal canal at T12 vertebral level within the spinal canal. This appeared to be associated with conus. This is only seen on sagittal sequences, as axial sequences do not extend to thoracic spine. This is probably prominent vascular structure/vein, however, pathologic vascular enhancement from leptomeningeal process, including infectious and inflammatory process cannot be excluded. Follow-up thoracic spine examination may be obtained for more complete evaluation. Consult Discharge Plan - Plan Referrals: Peter Carlson MD [Primary Care Provider] -
--- NOTE | 2017-12-17 13:45 | Internal Med Progress Note ---
Date of Encounter: 12/17/17 Time of Encounter: 13:43 - Assessment and plan (1) Leg weakness, bilateral Current Visit: Yes Status: Acute Assessment and plan: 1 patient originally presented to the ER with new onset of leg weakness. He has had right leg weakness in the past however he presented this time with left leg weakness he was worked up as as stroke CT and MRI are negative upon my assessment it appears that he has equal strength in the legs bilaterally. He does have a history of lumbar DDD. Does not appear to have any radicular type of pain He did undergo a MRI of lumbar spine-radiologist recommending to get MRI of thoracic spine for completely assessment. We will continue with supportive treatment-pain medications We will consult PT and OT MRI of lubar spine: IMPRESSION: 1. Multilevel degenerative changes of the lumbar spine, with spinal canal stenosis most severe at L2-L3, as detailed above. Multiple levels of moderate to severe neural foraminal stenosis as detailed above. 2. Small amount of fluid signal within L2-L3 intervertebral disc, with adjacent vertebral body marrow edema. There is suggestion of endplate changes. On the previous CT examination on 10/16/2017, there was a gas within this disc space. Findings likely represent advanced degenerative changes, however, this should be correlated with any clinically concern for early discitis osteomyelitis. 3. Possible small area of enhancement within spinal canal at T12 vertebral level within the spinal canal. This appeared to be associated with conus. This is only seen on sagittal sequences, as axial sequences do not extend to thoracic spine. This is probably prominent vascular structure/vein, however, pathologic vascular enhancement from leptomeningeal process, including infectious and inflammatory process cannot be excluded. 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 According to [facility] reports He was advised to follow-up as outpatient which he did not. He presents back to the ER with continued complaint of frontal headache-CT and MRI of head are negative -Neurology at that time concern for possible muscle contraction type headache suggesting trial Solu-Medrol with Phenergan and low-dose muscle relaxer at night.-However according to [facility] reports patient did not continue treatment outpatient. He was seen by neurology again this visit who again diagnosis chronic tension-type headache and suggesting continued. We will treatment. We will continue muscle relaxers -According to oncology note it appears the patient has a history of occipital headache syndrome and has been seen by Dr. 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 He was to undergo an PET scan however that was not completed due to he had elevated blood sugars. He was also referred back to Dr. Rodríguez ENT at that visit he underwent a nasopharyngoscopy-and there was some concern for possible mucosal melanoma biopsies were obtained-review of records could not find the pathology report. He continues to complain of difficulty swallowing as well as headaches he was evaluated by speech therapy who recommended modified barium swallow. We consulted oncology (8) Abdominal pain Current Visit: No Status: Acute Assessment and plan: 1 Santos does not complain of any abdominal pain-he is nothing by mouth following up with barium swallow-he had a previous CT of abdomen and pelvis on denies any constipation or diarrhea abdomen soft and nontender Qualifiers: Abdominal location: lower abdomen, unspecified Qualified Code(s): R10.30 - Lower abdominal pain, unspecified (9) CAD (coronary artery disease) Current Visit: No Status: Chronic Assessment and plan: Continue with aspirin and statin nitroglycerin as needed for chest pain Qualifiers: Coronary Disease-Associated Artery/Lesion type: bypass graft [place] vs. 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 Denies any photophobia or nausea or vomiting pain is nonradiating there are no aggravating or relieving factors at this time. He has been experiencing this headache for approximately 2 months. - Constitutional Vitals: Temp Pulse Resp BP Pulse Ox 98.0 F 85 17 148/79 98 12/17/17 11:30 12/17/17 11:30 12/17/17 11:30 12/17/17 11:30 12/17/17 11:30 General appearance: Present: A&O X 3, pleasant, no acute distress - Head Head exam: Present: atraumatic, normocephalic - Eye Eye exam: Present: PERRL, conjuntiva pink, sclera anicteric Pupils: Present: PERRL - Neck Neck exam general surgery: Present: supple, trachea midline. Absent: lymphadenopathy Additional comments: Patient does have a tracheostomy, - Respiratory Respiratory exam: Present: CTAB. Absent: accessory muscle use, rales, rhonchi, wheezes - Cardiovascular Cardiovascular exam: Present: RRR, +S1, +S2. Absent: diastolic murmur, gallop, rubs, systolic murmur - GI/Abdominal GI/Abdominal exam: Present: normal bowel sounds, soft, no peritoneal signs. Absent: distended, tenderness - Extremities Exam Extremities exam: Present: warm, radial pulses palpable and symmetrical. Absent : calf tenderness, cyanotic, pedal edema - Neurological Exam Neurological exam: Present: CN II-XII intact, oriented X3, no focal deficits. Absent: pronater drift, facial droop, speech deficit - Expanded Neurological Exam Patient oriented to: Present: person, place, time Neuro motor strength exam: LUE: 5, RUE: 5, LLE: 4, RLE: 4 Coma Scale Eye Opening: Spontaneous Coma Scale Motor Response: Obeys Commands Coma Scale Verbal Response: Oriented Coma Scale Total: 15 Internal Medicine: Result - Labs CBC & Chem 7: 12/17/17 07:32 12/17/17 07:32 Labs: Short CBC 12/17/17 Range/Units 07:32 WBC 8.0 (4.3-11.1) K/mcL Hgb 11.8 L (12.9-16.9) g/dL Hct 36.9 L (37.5-50.1) % Plt Count 352 (140-400) K/mcL BMP 12/17/17 07:32 Sodium 135 L Potassium 4.5 Chloride 106 Carbon Dioxide 21 L BUN 27 H Creatinine 0.91 Glucose 145 H Calcium 9.5 Cardiac Enzymes 12/16/17 12/17/17 Range/Units 20:36 03:15 Troponin I < 0.03 < 0.03 (< 0.04) ng/mL Liver Function 12/17/17 Range/Units 07:32 Total Bilirubin 0.5 (0.3-1.0) mg/dL AST 20 (13-39) Units/L ALT 34 (7-52) Units/L Alkaline Phosphatase 109 H (34-104) Units/L Albumin 3.4 L (3.5-5.7) g/dL - ABG Interpretation ABG results: PT/INR, D-dimer PT 21.9 Seconds (9.4-12.1) H 12/17/17 07:32 - Impressions Impressions Brain MRI 12/16/17 15:57 IMPRESSION: Chronic involutional changes. Old infarcts as above. D/ / Elijah Gatica MD / Elijah Gatica MD Interpreting Provider: Elijah Gatica MD Lumbar Spine MRI 12/16/17 15:57 IMPRESSION: 1. Multilevel degenerative changes of the lumbar spine, with spinal canal stenosis most severe at L2-L3, as detailed above. Multiple levels of moderate to severe neural foraminal stenosis as detailed above. 2. Small amount of fluid signal within L2-L3 intervertebral disc, with adjacent vertebral body marrow edema. There is suggestion of endplate changes. On the previous CT examination on 10/16/2017, there was a gas within this disc space. Findings likely represent advanced degenerative changes, however, this should be correlated with any clinically concern for early discitis osteomyelitis. 3. Possible small area of enhancement within spinal canal at T12 vertebral level within the spinal canal. This appeared to be associated with conus. This is only seen on sagittal sequences, as axial sequences do not extend to thoracic spine. This is probably prominent vascular structure/vein, however, pathologic vascular enhancement from leptomeningeal process, including infectious and inflammatory process cannot be excluded. Follow-up thoracic spine examination may be obtained for more complete evaluation. D/ /16/2017 18:07:00 Ramiro Culp MD / anthony Interpreting Provider: Ramiro Culp MD Consult Discharge Plan - Plan Referrals: Peter Carlson MD [Primary Care Provider] -
[2017-12-17] MEDS ORDERED: 0.9 % Sodium Chloride 250 ML ONE (16:12)
[2017-12-17] MEDS ORDERED: *HR* Warfarin 5 MG TABLET PO ONE (18:00)
[2017-12-17] MEDS ORDERED: Warfarin perPT PO PRN (18:00)
[2017-12-17] MEDS: tiZANidine 4 MG TABLET PO SCH (20:37)
[2017-12-17] MEDS: Topiramate 25 MG TABLET PO SCH (20:37)
[2017-12-18] MEDS: Insulin LISPRO 300 UNITS/3 ML VIAL SQ SCH ×4 (00:32→18:11)
[2017-12-18] MEDS: OXYCODONE Oral CONC 10 MG/0.5 ML ORAL.SYG SL PRN ×4 (00:37→21:05)
[2017-12-18 08:08] LABS: INR 2.1; Prothrombin Time 22.7 Seconds (9.4-12.1)
[2017-12-18 08:21] LABS: BUN/Creatinine Ratio 33 (6-26); Blood Urea Nitrogen 28 mg/dL (8-23); Calcium 9.1 mg/dL (8.6-10.3); Carbon Dioxide 21 mEq/L (23-29); Chloride 103 mEq/L (98-107); Glucose 93 mg/dL (70-105); Osmolality,Calculated 281 (280-300); Potassium 4.2 mEq/L (3.5-5.1); Sodium 133 mEq/L (136-145); eGFR For African Americans > 60 (> 60); eGFR For Non-African Americans > 60 (> 60)
[2017-12-18 08:27] LABS: Basophils % 0.5 %; Eosinophils # 0.5 K/mcL (0.0-0.6); Eosinophils % 5.5 %; Hematocrit 38.6 % (37.5-50.1); Hemoglobin 11.8 g/dL (12.9-16.9); Immature Granulocytes % 0.6 % (0-4); Lymphocytes # 1.2 K/mcL (0.6-4.6); Mean Corpuscular HGB Conc 30.6 g/dL (31.6-35.5); Mean Corpuscular Hemoglobin 27.4 pg (28.0-33.3); Mean Corpuscular Volume 89.8 fL (83.0-100.0); Mean Platelet Volume 10.4 fL (9.4-12.4); Monocytes # 0.6 K/mcL (0.0-1.3); Monocytes % 7.6 %; Neutrophils # 5.9 K/mcL (1.6-8.9); Platelet Count 357 K/mcL (140-400); Red Cell Distribution Width 14.6 % (11.5-14.5); Segmented Neutrophils % 71.8 %
--- NOTE | 2017-12-18 10:10 | Neurology Progress Note ---
Date of Encounter: 12/18/17 Time of Encounter: 10:10 Assessment and Plan (1) Leg weakness, bilateral Current Visit: Yes Status: Acute Mr. Salmeron 77-year-old gentleman with multiple medical problems including previous right lower extremity weakness presented with left lower extremity weakness which was new. Upon evaluation he does not appear to demonstrate any significant weakness in his left lower extremity. He does demonstrate some mild right lower extremity weakness compared to his left which she has been chronic. MRI of brain negative for LITERAC[employer] COORDINATOR pathology. MRI of the lumbar spine demonstrated concerning findings for narrowing and small amount of fluid signal within the L2-L3 intravertebral disc space. There is a possibility that the area of the spinal canal may be contributing to his current intermittent symptoms. Would recommend discussion with or so spine for further evaluation. Orders for MRI of the cervical spine and thoracic spine are pending. Subjective Interval history: Mr. Salmeron 77-year-old male seen about the patient bedside. He is alert awake interactive no acute distress. He complains of chronic weakness in his right lower extremity and occasional left lower extremity weakness. He denies any pain at this time, denies any acute events overnight or new neurologic symptoms. Objective - Constitutional Vitals: Temp Pulse Resp BP Pulse Ox 98.0 F 78 16 132/68 98 12/18/17 06:36 12/18/17 06:36 12/18/17 06:36 12/18/17 06:36 12/18/17 06:36 General appearance: Present: cooperative, A&O X 3, no acute distress, answers questions appropriately - Neurological Exam Motor examination - right side: 5/5: deltoids, biceps, triceps, wrist flexion, wrist extension, miller head, hip flexors, tibialis Anterior, quadriceps, toe extension (EHL), plantarflexion Motor examination - left side: 5/5: deltoids, biceps, triceps, wrist flexion, wrist extension, hip flexors, miller head, quadriceps, tibialis Anterior, toe extension (EHL), plantarflexion Sensation intact: Present: intact Reflexes: Biceps: 2+, Triceps: 2+, Brachioradialis: 2+, Patella: 2+, Achilles: 2 + Mental Status Examination: Present: awake, alert, oriented to person, oriented to place, oriented to time, follows commands appropriately, answers questions appropriately, no agnosia, no aphasia, no aproxia, lucid Cranial nerve examination: Present: PERRL, EOMI, sensory to face intact, mastication intact, no facial asymmetry is present, no dysarthria, hearing is intact symmetrically, soft palate elevates bilaterally upon phonation, flexes SCM and trapezius muscles symmetrically with full power, tongue protrudes midline, no atrophy or facial fasiculations present Results - Laboratory Findings CBC and BMP: 12/18/17 06:51 12/18/17 06:51 Abnormal lab findings: Abnormal lab results Hgb 11.8 g/dL (12.9-16.9) L 12/18/17 06:51 MCH 27.4 pg (28.0-33.3) L 12/18/17 06:51 MCHC 30.6 g/dL (31.6-35.5) L 12/18/17 06:51 RDW 14.6 % (11.5-14.5) H 12/18/17 06:51 PT 22.7 Seconds (9.4-12.1) H 12/18/17 06:51 APTT 36.7 Seconds (26.0-36.0) H 12/17/17 07:32 Sodium 133 mEq/L (136-145) L 12/18/17 06:51 Carbon Dioxide 21 mEq/L (23-29) L 12/18/17 06:51 BUN 28 mg/dL (8-23) H 12/18/17 06:51 BUN/Creatinine Ratio 33 (6-26) H 12/18/17 06:51 POC Glucose 98 (58-89) H 12/17/17 23:57 Alkaline Phosphatase 109 Units/L (34-104) H 12/17/17 07:32 Albumin 3.4 g/dL (3.5-5.7) L 12/17/17 07:32 Globulin 3.9 g/dL (2.4-3.5) H 12/17/17 07:32 Albumin/Globulin Ratio 0.9 (1.1-2.2) L 12/17/17 07:32 Consult Discharge Plan - Plan Referrals: Peter Carlson MD [Primary Care Provider] -
[2017-12-18] MEDS: Aspirin Enteric Coated 81 MG Tablet PO SCH (10:19)
[2017-12-18] MEDS: Isosorbide MONOnitrate (24 HR) 30 MG TAB.ER.24H PO SCH (10:20)
[2017-12-18] MEDS: Gabapentin 300 MG CAPSULE PO SCH ×2 (10:20→21:06)
[2017-12-18] MEDS: amLODIPine 5 MG TABLET PO SCH (10:20)
[2017-12-18] MEDS: (Ezetimibe [Zetia] 10 MG) PO SCH (10:20)
[2017-12-18] MEDS: BuPROPion XL (24 HR) 150 MG TABLET PO SCH (10:20)
--- NOTE | 2017-12-18 12:35 | Oncology Inp Consult Note ---
<Claudia Salcedo L - Last Filed: 12/19/17 10:30> Date of Encounter: 12/18/17 Time of Encounter: 12:34 Assessment and Plan (1) Nasopharyngeal cancer Status: Chronic Assessment and plan: In remission without biopsy proven evidence if recurrence although currently in workup for concern of recurrence/secondary primary given his clinical symptoms and recent nasolaryngoscopy findings. CTA head/neck did show soft tissue thickening of the posterior nasopharynx an prominent left A1 level cervical lymph nodes, these findings are stable. As detailed in HPI, unable to undergo recently scheduled PET due to hyperglycemia, consulted with Dr. 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 Guillaume on 12/23. He has had imaging of head/brain since admission which does not show apparent lesion in sinus cavity. I did discuss case with Dr Quintero ENT, they will plan to continue to follow patient on outpatient basis following PET scan results. Neurology and spinal surgery consulted and following MRI lumbar spine results with further management recommendations, awaiting thoracic/cervical MRI for more definitive study He reports inability to have any oral intake x3 days due to worsening reflux of food/water through nose. Modified barium swallow showed no aspiration but did show delayed clearance throughout the esophagus with mild distal esophageal dilatation. He does have a history of esophageal stricture in the past s/p dilation with EGD by Dr. Hernandez in May 2017 which also showed esophagitis, gastritis and Beach's esophagus, negative for dysplasia. GI has been consulted for potential need for EGD. Uncontrolled headache, facial/neck pain worsened by movement x2 months, unrelieved by pain medication. This may be related to his history of nasopharyngeal cancer and chronic in nature, he does follow pain management Dr. Dong, pain has recently worsened over past 2 months. He also reports right facial pain and edema upon wakening, right eyelid edema with associated erythema, scalp tenderness, jaw claudication intensified when chewing and worsening hearing loss. He denies visual changes. 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 Will obtain ESR/CRP and if elevated consider initiation of high dose steroids and rheumatology consult for further management. High dose steroids will, unfortunately, likely delay his PET scan. Please refer to Dr. Aragon's attestation below for additional details. 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 He received multimodality treatment with concurrent chemo radiation with cisplatin and cetuximab and adjuvant chemotherapy cisplatin and 5-FU. He could tolerate one only one of three planned cycles. He has a permanent tracheastoma. He has been in remission but recently presented to office with c/o reflux of food/fluid through nose, recurrent uncontrolled headaches with associated facial/neck pain and weight loss, concerning for recurrence of disease. He was planned to have PET/CT last week but this was not completed due to hyperglycemia. He was also referred to ENT and consulted with Dr. Guillaume, a nasolaryngoscopy was performed which located blue tint to nasal mucosa throughout exam as well as a darker defined lesion to the left lateral nasal wall with extension in to the frontal sinus. 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 He was planned for follow up with ENT on 12/23 after PET. Mr. Salmeron has a past medical history significant for Atrial fib on coumadin, hypertension, CAD, and 2 prior CVAs presents emergency department with concerns of bilateral lower extremity weakness, left worse than right, that began last night (>12 hours of symptoms). He reports that he has difficulty with walking and reports he needs to drag his left leg, he has a h/o chronic right sided weakness secondary to prior CVA's. Brain MRI shows chronic involutional changes and old infarcts. Lumbar MRI shows multilevel degenerative changes of the lumbar spine, with spinal canal stenosis, small amount of fluid signal within L2 -L3 intervertebral disc, with adjacent vertebral body marrow edema, possible small area of enhancement within spinal canal at T12 vertebral level recommended follow-up thoracic spine examination may be obtained for more complete evaluation. Neurology consulted and following. Past Med Surg Social Fam HX - Past Medical History Medical history: atrial fibrillation, cancer, coronary artery disease, CVA, diabetes, hypertension, myocardial infarction, peripheral artery disease, SVT, thyroid disease Psychiatric history: no psych history - Past Surgical History Surgical History: angioplasty/stent, appendectomy, coronary bypass (CABG), herniorrhaphy, LE vascular intervention, tracheostomy - Social History Smoking Status: Former smoker Smokeless Tobacco Status: No Alcohol use: none Drug use: none - Family History Mother Living Status: Hx Family Cardiac Disorders: No Hx Family Respiratory Disorders: No Hx Family Cancer: No Hx Family GI Disorders: No Hx Family Endocrine Disorder: No Hx Family Neuromuscular Disorders: No Hx Family Neurologic Disorders: No Hx Family HEENT Disorders: No Hx Family Autoimmune Disorders: No Father Living Status: Hx Family Cardiac Disorders: No Hx Family Respiratory Disorders: No Hx Family Cancer: No Hx Family GI Disorders: No Hx Family Endocrine Disorder: No Hx Family Neuromuscular Disorders: No Hx Family Neurologic Disorders: No Hx Family HEENT Disorders: No Hx Family Autoimmune Disorders: No Sister Living Status: Hx Family Cancer: Yes (lung cancer) Medications and Allergies Omeprazole [PriLOSEC] 20 mg PO QAM 06/11/15 [History] Tamsulosin [Flomax] 0.4 mg PO QAM 06/11/15 [History] Lisinopril 10 mg PO BID 08/10/15 [History] Insulin Glargine,Hum.rec.anlog [Lantus Solostar] 20 unit SQ QAM 12/09/15 [ History] Acetaminophen/Butalbital/Caffe [Fioricet] 1 tab PO DAILY PRN 05/14/17 [History] Gabapentin [Neurontin] 300 mg PO BID 05/14/17 [History] Promethazine [Phenergan] 25 mg PO Q6HR PRN 05/14/17 [History] Warfarin [Coumadin] 5 mg PO SUWETHFRSA 05/15/17 [History] Aspirin Enteric Coated [Aspirin EC] 81 mg PO DAILY 08/17/17 [History] Atorvastatin Calcium [Lipitor] 80 mg PO HS 08/17/17 [History] Levothyroxine Sodium [Synthroid] 300 mcg PO QAM 08/17/17 [History] Nitroglycerin 0.4 mg SL Q5MIN PRN #14 tab.subl 08/22/17 [Rx] Metoprolol [Lopressor] 12.5 mg PO BID #60 tablet 09/11/17 [Rx] Warfarin [Coumadin] 7.5 mg PO MOTU 09/25/17 [History] Isosorbide MONOnitrate (24 HR) [Imdur] 30 mg PO DAILY #30 tab.er.24h 10/18/17 [ Rx] Tizanidine HCl [Zanaflex] 2 mg PO HS #15 cap 11/27/17 [Rx] BuPROPion XL (24 HR) [Wellbutrin XL] 150 mg PO DAILY 12/16/17 [History] Cyclobenzaprine HCl 5 mg PO HS 12/16/17 [History] Ezetimibe [Zetia] 10 mg PO DAILY 12/16/17 [History] Metformin HCl [Metformin HCl ER] 500 mg PO DAILY 12/16/17 [History] Sertraline [Zoloft] 100 mg PO DAILY 12/16/17 [History] Topiramate [Topamax] 50 mg PO HS 12/16/17 [History] amLODIPine [Norvasc] 5 mg PO DAILY 12/16/17 [History] 3 Allergy/AdvReac Type Severity Reaction Status Date / Time No Known Allergies Allergy Verified 12/05/17 16:39 Constitutional: Present: anorexia, fatigue, headache(s), weakness, weight loss. Absent: fever(s), frequent falls Eyes: Absent: change in vision Nose, mouth and throat: Present: as per HPI, dizziness, dysphagia, facial pain, headache(s) Cardiovascular: Absent: chest pain, irregular heart rhythm, palpitations Respiratory: Absent: cough, dyspnea Gastrointestinal: Present: as per HPI, dysphagia. Absent: abdominal pain, hematemesis, hematochezia, nausea Additional comments: h/o bowel/bladder incontinence which is intermittent, no changes Genitourinary: as per HPI, dysuria, urinary incontinence Additional comments: h/o bladder incontinence and retention requiring straight cath at times Musculoskeletal: Present: muscle weakness, neck pain. Absent: numbness, tingling Integumentary: Absent: wounds Neurological: Present: as per HPI Hematologic/Lymphatic: Present: as per HPI Oncology - Exam - Constitutional Vitals: Temp Pulse Resp BP Pulse Ox 98.1 F 91 16 130/75 96 12/18/17 11:15 12/18/17 11:41 12/18/17 11:41 12/18/17 11:41 12/18/17 11:41 General appearance: cooperative, no acute distress, no febrile - Head Head exam: Present: atraumatic Additional comments: scalp tenderness - Eye Eye exam: Present: PERRL Additional comments: right eyelid mildly edematous with associated erythema - ENT ENT exam: Present: mucous membranes moist - Respiratory Respiratory exam: Present: CTAB. Absent: respiratory distress Additional comments: tracheastoma - Cardiovascular Cardiovascular exam: Present: RRR, +S1, +S2 - GI/Abdominal GI/Abdominal exam: Present: normal bowel sounds, soft. Absent: tenderness - Extremities Exam Extremities exam: Present: normal inspection. Absent: calf tenderness - Neurological Exam Neurological exam: Present: alert, oriented X3, no focal deficits, strengths equal and symetr throughout - Psychiatric Psychiatric exam: Present: depressed - Skin Skin exam: Present: normal color, warm Oncology - Results Labs: Short CBC 12/18/17 Range/Units 06:51 WBC 8.2 (4.3-11.1) K/mcL Hgb 11.8 L (12.9-16.9) g/dL Hct 38.6 (37.5-50.1) % Plt Count 357 (140-400) K/mcL Neutrophils # 5.9 (1.6-8.9) K/mcL BMP 12/18/17 06:51 Sodium 133 L Potassium 4.2 Chloride 103 Carbon Dioxide 21 L BUN 28 H Creatinine 0.86 Glucose 93 Calcium 9.1 Consult Discharge Plan - Plan Referrals: Peter Carlson MD [Primary Care Provider] - <MaheshMilan - Last Filed: 12/20/17 08:23> Date of Encounter: 12/18/17 - Data of Consult Requesting Physician: Yudith Coreas Primary Care Provider: Peter Carlson MD - Consult Narrative History of present illness: Mr. Salmeron is a 77 year old male Oncology - Exam - Constitutional Vitals: Temp Pulse Resp BP Pulse Ox 97.8 F 58 20 102/60 93 12/20/17 07:28 12/20/17 07:28 12/20/17 07:28 12/20/17 07:28 12/20/17 07:28 Oncology - Results Labs: Urine 12/20/17 Range/Units 06:20 Urine Color Yellow (Yellow) Urine Clarity Cloudy A (Clear) Urine pH 6.0 (5.0-8.0) pH Units Ur Specific [place] 1.022 (1.010-1.025) Urine Protein Negative (Neg-Trace) mg/dL Urine Glucose (UA) Normal (Normal) mg/dL - Attending Attestation seen and examined patient and agree with assessment and plan. 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 Will get ESR. If significantly elevated will start prednisone. I dont suspect neplastic process at this time.
[2017-12-18] MEDS ORDERED: *HR* Warfarin 7.5 MG TABLET PO ONE (18:00)
--- NOTE | 2017-12-18 18:19 | Internal Med Progress Note ---
Date of Encounter: 12/18/17 Time of Encounter: 18:17 - Assessment and plan (1) Dysphagia Current Visit: Yes Status: Acute Assessment and plan: Patient had a modified by barium swallow today. Recommended to have a upper GI study that was completed as well. He is having difficulty swallowing pills. It is noted that he had a stricture of the esophagus in the past with a EGD last year. Continue diet as recommended by speech Department Nothing by mouth after midnight for EGD per gastroenterology tomorrow. Qualifiers: Dysphagia type: oropharyngeal phase Qualified Code(s): R13.12 - Dysphagia, oropharyngeal phase (2) Leg weakness, bilateral Current Visit: Yes Status: Acute Assessment and plan: 1 patient originally presented to the ER with new onset of leg weakness. He has had right leg weakness in the past however he presented this time with left leg weakness, worked up as as stroke. CT and MRI of brain were negative. He does have a history of lumbar DDD. Does not appear to have any radicular type of pain He did undergo a MRI of lumbar spine-radiologist recommending to get MRI of thoracic spine for completely assessment. Continue with supportive treatment-pain medications MRI of thoracic and cervical spine have been ordered and are pending PT and OT Orthospine service consulted, Dr. Solares notified and will see in the a.m. MRI of [facility] spine: IMPRESSION: 1. Multilevel degenerative changes of the lumbar spine, with spinal canal stenosis most severe at L2-L3, as detailed above. Multiple levels of moderate to severe neural foraminal stenosis as detailed above. 2. Small amount of fluid signal within L2-L3 intervertebral disc, with adjacent vertebral body marrow edema. There is suggestion of endplate changes. On the previous CT examination on 10/16/2017, there was a gas within this disc space. Findings likely represent advanced degenerative changes, however, this should be correlated with any clinically concern for early discitis osteomyelitis. 3. Possible small area of enhancement within spinal canal at T12 vertebral level within the spinal canal. This appeared to be associated with conus. This is only seen on sagittal sequences, as axial sequences do not extend to thoracic spine. This is probably prominent vascular structure/vein, however, pathologic vascular enhancement from leptomeningeal process, including infectious and inflammatory process cannot be excluded. Follow-up thoracic spine examination may be obtained for more complete evaluati (3) Type 2 diabetes mellitus Current Visit: Yes Status: Acute Assessment and plan: Continue Accu-Cheks with coverage scale Hold home oral medications Qualifiers: Diabetes mellitus complication status: with unspecified complications Diabetes mellitus long goods drier insulin use: with long goods drier use Qualified Code(s) : E11.8 - Type 2 diabetes mellitus with unspecified complications; Z79.4 - intermediate project manager (current) use of insulin; Z79.4 - skilled nursing (current) use of insulin; Z79.4 - skilled nursing (current) use of insulin; Z79.4 - skilled nursing (current) use of insulin (4) Atrial fibrillation Current Visit: Yes Status: Chronic Assessment and plan: Paroxysmal and stable heart rate Qualifiers: Atrial fibrillation type: paroxysmal Qualified Code(s): I48.0 - Paroxysmal atrial fibrillation (5) Headache Current Visit: Yes Status: Chronic Assessment and plan: Appears to be chronic-he was seen here approximately a month ago for same complaint and was seen by neurology at that time. According to reports he was advised to follow-up as outpatient which he did not. He presented back to the ER with continued complaint of frontal headache - CT and MRI of head are negative -Neurology at that time was concerned for possible muscle contraction type headache suggesting trial Solu-Medrol with Phenergan and low-dose muscle relaxer at night.-However according to EC W reports patient did not continue treatment outpatient. He was seen by neurology again this visit who again diagnosis chronic tension-type headache and suggesting continued treatment. Continue muscle relaxers -According to oncology note it appears the patient has a history of occipital headache syndrome and has been seen by Dr. Cadena - pain management in the past-he had a nerve block procedure on 03/18/15 Qualifiers: Headache type: tension-type Headache chronicity pattern: chronic headache Intractability: not intractable Qualified Code(s): G44.229 - Chronic tension -type headache, not intractable (6) Hypertension Current Visit: Yes Status: Chronic Assessment and plan: controlled and continue with amlodipine Qualifiers: Hypertension type: essential hypertension Qualified Code(s): I10 - Essential (primary) hypertension (7) Nasopharyngeal cancer Current Visit: Yes Status: Chronic Assessment and plan: Patient was diagnosed with nasal failure malignancy in 2006 and he underwent chemotherapy and radiation therapy. 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 He was to undergo an PET scan however that was not completed due to he had elevated blood sugars. He was also referred back to Dr. 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 He continues to complain of difficulty swallowing as well as headaches. He was evaluated by speech therapy with modified barium swallow completed as well as Upper GI. modified diet per speech Oncology following GI consult regarding possible stricture with EGD in am (8) DVT prophylaxis Current Visit: Yes Status: Acute Assessment and plan: Patient is on chronic Coumadin therapy - Subjective Interval history: Patient is alert and interactive with no acute distress. He has some chronic weakness of his right lower extremity with intermittent left lower extremity weakness. He is pain-free at this time. He has been nothing by mouth all day for testing. Denies fever chills chest pain or shortness of breath. He is currently eating and swallowing without difficulty. - Constitutional Vitals: Temp Pulse Resp BP Pulse Ox 98.3 F 86 16 138/79 93 12/18/17 15:15 12/18/17 15:15 12/18/17 15:15 12/18/17 15:15 12/18/17 15:15 General appearance: Present: cooperative, A&O X 3, pleasant, answers questions appropriately - Head Head exam: Present: atraumatic, normocephalic - Eye Eye exam: Present: PERRL, sclera anicteric Pupils: Present: PERRL Additional comments: Conjunctiva slightly reddened with some dried matter to edge of his thigh - Neck Neck exam general surgery: Present: supple, trachea midline. Absent: lymphadenopathy Additional comments: Well-healed tracheal stoma - Respiratory Respiratory exam: Present: CTAB. Absent: accessory muscle use, rales, rhonchi, wheezes - Cardiovascular Cardiovascular exam: Present: RRR, +S1, +S2. Absent: diastolic murmur, gallop, rubs, systolic murmur - GI/Abdominal GI/Abdominal exam: Present: normal bowel sounds, soft, no peritoneal signs. Absent: distended, tenderness - Extremities Exam Extremities exam: Present: warm, radial pulses palpable and symmetrical. Absent : calf tenderness, cyanotic, pedal edema - Neurological Exam Neurological exam: Present: CN II-XII intact, oriented X3, no focal deficits. Absent: pronater drift, facial droop, speech deficit - Skin Skin exam: Present: dry, intact, normal color, warm Internal Medicine: Result - Labs CBC & Chem 7: 12/18/17 06:51 12/18/17 06:51 Labs: Short CBC 12/18/17 Range/Units 06:51 WBC 8.2 (4.3-11.1) K/mcL Hgb 11.8 L (12.9-16.9) g/dL Hct 38.6 (37.5-50.1) % Plt Count 357 (140-400) K/mcL Neutrophils # 5.9 (1.6-8.9) K/mcL BMP 12/18/17 06:51 Sodium 133 L Potassium 4.2 Chloride 103 Carbon Dioxide 21 L BUN 28 H Creatinine 0.86 Glucose 93 Calcium 9.1 - ABG Interpretation ABG results: PT/INR, D-dimer PT 22.7 Seconds (9.4-12.1) H 12/18/17 06:51 - Impressions Impressions Videofluoroscopic Swallow 12/18/17 00:00 IMPRESSION: 1. No evidence of aspiration. No barium was identified within the stoma throughout the course of the exam. 2. Penetration with thin barium. 3. Delayed clearance throughout the esophagus with mild distal esophageal dilatation. The patient may benefit from an upper GI series for further evaluation. Please see separate speech pathology report for full discussion of findings and recommendations. D/ / 12/18/2017 11:13:37 Qamar Solomon MD / ray Interpreting Provider: Qamar Solomon MD Upper GI Series 12/18/17 12:28 IMPRESSION: 1. No evidence of esophageal obstruction. 2. Tertiary contractions indicative of esophageal dysmotility. 3. Small amount of gastroesophageal reflux. D/ / 12/18/2017 14:38:54 Qamar Solomon MD / ajit Interpreting Provider: Qamar Solomon MD Consult Discharge Plan - Plan Referrals: Peter Carlson MD [Primary Care Provider] -
[2017-12-18] MEDS: Topiramate 25 MG TABLET PO SCH (21:06)
[2017-12-18] MEDS: tiZANidine 4 MG TABLET PO SCH (21:06)
[2017-12-19] MEDS: Insulin LISPRO 300 UNITS/3 ML VIAL SQ SCH ×4 (00:36→18:05)
[2017-12-19 06:05] LABS: INR 2.4; Prothrombin Time 25.8 Seconds (9.4-12.1)
--- NOTE | 2017-12-19 10:33 | Neurology Progress Note ---
<Keyshawn Mendez - Last Filed: 12/19/17 10:31> Date of Encounter: 12/19/17 Time of Encounter: 08:30 Assessment and Plan (1) Leg weakness, bilateral Current Visit: Yes Status: Acute Mr. Salmeron 77-year-old gentleman with multiple medical problems including previous right lower extremity weakness presented with left lower extremity weakness which was new. Upon evaluation he does not appear to demonstrate any significant weakness in his left lower extremity. He does demonstrate some mild right lower extremity weakness compared to his left which she has been chronic. MRI of brain negative for ER NURSE pathology. MRI of the lumbar spine demonstrated concerning findings for narrowing and small amount of fluid signal within the L2-L3 intravertebral disc space. There is a possibility that the area of the spinal canal may be contributing to his current intermittent symptoms. Would recommend discussion with or so spine for further evaluation. Orders for MRI of the cervical spine and thoracic spine are pending. 12/19/17: No acute changes compared to yesterday, MRI of the cervical spine and thoracic spine were completed with the cervical spine demonstrating multilevel disc osteophyte complex results in multilevel mild central canal narrowing and neural foraminal narrowing. The thoracic spine demonstrated T9-T10 central disc protrusion without significant canal compromise. It appears that a majority of his symptoms in his lower extremities are associated with his lumbar findings. Awaiting further evaluation recommendations per orthospine. Subjective Interval history: Mr. Salmeron 77-year-old male seen about the patient bedside. He is alert awake interactive no acute distress. No acute neurologic changes compared to yesterday. Patient remains stable awaiting further evaluation from orthospine. Objective - Constitutional Vitals: Temp Pulse Resp BP Pulse Ox 98.9 F 71 15 102/56 90 12/19/17 08:09 12/19/17 08:09 12/19/17 08:09 12/19/17 08:09 12/19/17 08:09 General appearance: Present: cooperative, A&O X 3, no acute distress, answers questions appropriately - Neurological Exam Sensation intact: Present: intact Additional comments: Motor examination - right side: 5/5: deltoids, biceps, triceps, wrist flexion, wrist extension, university tutor, hip flexors, tibialis Anterior, quadriceps, toe extension (EHL), plantarflexion Motor examination - left side: 5/5: deltoids, biceps, triceps, wrist flexion, wrist extension, hip flexors, university tutor, quadriceps, tibialis Anterior, toe extension (EHL), plantarflexion Sensation intact: Present: intact Reflexes: Biceps: 2+, Triceps: 2+, Brachioradialis: 2+, Patella: 2+, Achilles: 2 + Mental Status Examination: Present: awake, alert, oriented to person, oriented to place, oriented to time, follows commands appropriately, answers questions appropriately, no agnosia, no aphasia, no aproxia, lucid Cranial nerve examination: Present: PERRL, EOMI, sensory to face intact, mastication intact, no facial asymmetry is present, no dysarthria, hearing is intact symmetrically, soft palate elevates bilaterally upon phonation, flexes SCM and trapezius muscles symmetrically with full power, tongue protrudes midline, no atrophy or facial fasiculations present Results - Laboratory Findings CBC and BMP: 12/18/17 06:51 12/18/17 06:51 Abnormal lab findings: Abnormal lab results Hgb 11.8 g/dL (12.9-16.9) L 12/18/17 06:51 MCH 27.4 pg (28.0-33.3) L 12/18/17 06:51 MCHC 30.6 g/dL (31.6-35.5) L 12/18/17 06:51 RDW 14.6 % (11.5-14.5) H 12/18/17 06:51 ESR 119 mm/hr (0-10) H 12/18/17 17:50 PT 25.8 Seconds (9.4-12.1) H 12/19/17 04:28 APTT 36.7 Seconds (26.0-36.0) H 12/17/17 07:32 Sodium 133 mEq/L (136-145) L 12/18/17 06:51 Carbon Dioxide 21 mEq/L (23-29) L 12/18/17 06:51 BUN 28 mg/dL (8-23) H 12/18/17 06:51 BUN/Creatinine Ratio 33 (6-26) H 12/18/17 06:51 POC Glucose 154 (58-89) H 12/19/17 00:21 Alkaline Phosphatase 109 Units/L (34-104) H 12/17/17 07:32 C-Reactive Protein 91 mg/L (Less than 10) H 12/18/17 17:50 Albumin 3.4 g/dL (3.5-5.7) L 12/17/17 07:32 Globulin 3.9 g/dL (2.4-3.5) H 12/17/17 07:32 Albumin/Globulin Ratio 0.9 (1.1-2.2) L 12/17/17 07:32 Vancomycin Trough 21.2 mcg/mL (10-20) H* 12/18/17 17:50 Consult Discharge Plan - Plan Referrals: Peter Carlson MD [Primary Care Provider] - <Ale Goff I - Last Filed: 12/19/17 16:19> Date of Encounter: 12/19/17 Assessment and Plan (1) Headache Current Visit: No Status: Acute This patient is also complaining of these headaches predominantly in his whole head that focus more on the top of the head and also in the back. There was a concern that could be having features of temporal arteritis considering his multiple other medical condition and comorbid conditions though it is a possibility but the presentation does not seem to be typical. At the same time he does not have other features of giant cell arteritis in particularly recent imaging studies has been negative and no evidence of any radiological findings to be suggestive of arteritis He is already been started on high doses of prednisone suggested rheumatological evaluation considering significant side effects associated with high doses of steroids in particularly because of his multiple other medical conditions we have to make sure before committing him to long-term treatment with steroids Qualifiers: Headache type: unspecified Headache chronicity pattern: unspecified pattern Intractability: not intractable Qualified Code(s): R51 - Headache (2) Leg weakness, bilateral Current Visit: Yes Status: Acute Patient seen and examined Pt was seen and examined, my medical decision was reviewed with the Resident Physician, I agree with the documented findings, disposition and treatment plas as described except to the extent set forth below MRI results has been reviewed. Certainly significant abnormalities perhaps may benefit from surgical evaluation for possible intervention in the meantime continue supportive treatment Ale Goff MD Objective - Constitutional Vitals: Temp Pulse Resp BP Pulse Ox 99.3 F 81 20 143/64 93 12/19/17 12:02 12/19/17 13:01 12/19/17 13:01 12/19/17 13:01 12/19/17 13:01 Results - Laboratory Findings CBC and BMP: 12/18/17 06:51 12/18/17 06:51 Abnormal lab findings: Abnormal lab results Hgb 11.8 g/dL (12.9-16.9) L 12/18/17 06:51 MCH 27.4 pg (28.0-33.3) L 12/18/17 06:51 MCHC 30.6 g/dL (31.6-35.5) L 12/18/17 06:51 RDW 14.6 % (11.5-14.5) H 12/18/17 06:51 ESR 119 mm/hr (0-10) H 12/18/17 17:50 PT 25.8 Seconds (9.4-12.1) H 12/19/17 04:28 APTT 36.7 Seconds (26.0-36.0) H 12/17/17 07:32 Sodium 133 mEq/L (136-145) L 12/18/17 06:51 Carbon Dioxide 21 mEq/L (23-29) L 12/18/17 06:51 BUN 28 mg/dL (8-23) H 12/18/17 06:51 BUN/Creatinine Ratio 33 (6-26) H 12/18/17 06:51 POC Glucose 154 (58-89) H 12/19/17 00:21 Alkaline Phosphatase 109 Units/L (34-104) H 12/17/17 07:32 C-Reactive Protein 91 mg/L (Less than 10) H 12/18/17 17:50 Albumin 3.4 g/dL (3.5-5.7) L 12/17/17 07:32 Globulin 3.9 g/dL (2.4-3.5) H 12/17/17 07:32 Albumin/Globulin Ratio 0.9 (1.1-2.2) L 12/17/17 07:32 Vancomycin Trough 21.2 mcg/mL (10-20) H* 12/18/17 17:50
--- NOTE | 2017-12-19 11:49 | Oncology Inp Progress Note ---
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 Guillaume ENT. I have arranged to have his PET scan rescheduled for 12/27 since it cannot be performed this week due to inpatient admission. He will need adequate hyperglycemic control upon discharge in the presence of high dose steroids. Neurology and spinal surgery consulted and following MRI spine results with further management recommendations GI consult-He had EGD today which revealed abnormal esophageal motility, findings suggestive of chronic duodenitis and findings suggestive of gastroparesis. He is planned for colonoscopy tomorrow, GI is following. He was able to eat/drink today without reflux. Presence of elevated inflammatory markers along with clinical features suggestive of giant cell arteritis. Rheumatology consult appreciated. Primary team has consulted vascular for potential temporal artery biopsy tomorrow. He has started high dose steroids of 60 mg prednisone daily. Discussed side effects /adverse effects associated with high dose steroids. He is taking prilosec. Please refer to Dr. Aragon's attestation below for additional details. Oncology: Subj Interval history: Mr. Guidry reports stable headache related pain today. He was able to drink an ensure this morning without difficulty. He underwent EGD earlier today and planned to have colonoscopy tomorrow. - Constitutional Vitals: Intake and Output 12/18/17 12/19/17 12/19/17 23:59 07:59 15:59 Intake Total 0 / 0 Output Total 275 / 275 Balance -275 / -275 Intake: Oral 0 / 0 Output: Urine 275 / 275 Other: Meal npo Percent of Meal Consumed 0% General appearance: cooperative, no acute distress, no febrile - Head Head exam: Present: atraumatic - ENT ENT exam: Present: mucous membranes moist Additional comments: tracheostoma patent - Respiratory Respiratory exam: Present: CTAB. Absent: respiratory distress - Cardiovascular Cardiovascular exam: Present: RRR, +S1, +S2 - GI/Abdominal GI/Abdominal exam: Present: normal bowel sounds, soft. Absent: tenderness - Extremities Exam Extremities exam: Present: pedal edema. Absent: calf tenderness - Neurological Exam Neurological exam: Present: alert, oriented X3, no focal deficits, strengths equal and symetr throughout - Psychiatric Psychiatric exam: Present: normal affect, normal mood - Skin Skin exam: Present: normal color, warm Oncology: Obj Data - Labs CBC & Chem 7: 12/18/17 06:51 12/18/17 06:51 - ABG Interpretation ABG results: PT/INR, D-dimer PT 25.8 Seconds (9.4-12.1) H 12/19/17 04:28 Consult Discharge Plan - Plan Referrals: Peter Carlson MD [Primary Care Provider] - <MaheshCarlosMilan - Last Filed: 12/20/17 08:25> Date of Encounter: 12/19/17 (1) Temporal arteritis Current Visit: Yes Status: Acute Assessment and plan: Patients ESR is 119. Prednisone was started. He is feeling better already. AGree with rheumatology consult and f/u. - Constitutional Vitals: Vital Signs Temp Pulse Resp BP Pulse Ox 12/20/17 07:28 97.8 F 58 20 102/60 93 12/20/17 03:51 97.7 F 85 16 123/60 96 12/19/17 23:52 97.9 F 66 15 101/69 92 12/19/17 22:01 98.1 F 84 14 125/69 90 12/19/17 19:12 98.8 F 88 17 108/58 94 12/19/17 16:05 98.2 F 88 16 95/57 92 12/19/17 13:01 81 20 143/64 93 12/19/17 12:02 99.3 F 80 14 106/68 94 Intake and Output 12/19/17 12/20/17 12/20/17 16:59 00:59 08:59 Intake Total 0 / 0 250 / 250 250 / 250 Output Total 275 / 275 680 / 680 Balance -275 / -275 250 / 250 -430 / -430 Intake: IV Fluids 250 / 250 250 / 250 Vancocin 750 MG In 0.9 % Sodium 250 / 250 250 / 250 Chloride 250 ML @ 250 mls/hr IVPB Q12H ZOLTAN Rx#:[id number] Oral 0 / 0 0 / 0 Output: Urine 275 / 275 Straight Cath 680 / 680 Other: Meal npo Percent of Meal Consumed 0% Weight 81.42 kg Blood Glucose* 146 230 192 Patient Weight 12/21/17 00:59 Weight 81.42 kg Oncology: Obj Data - Labs CBC & Chem 7: 12/18/17 06:51 12/18/17 06:51 Labs: Laboratory Results - last 24 hr 12/19/17 12/19/17 12/19/17 12:01 17:58 22:00 PT INR POC Glucose 146 H 239 H 216 H Urine Color Urine Clarity Urine pH Ur Specific Ulm Urine Protein Urine Glucose (UA) Urine Ketones Urine Blood Urine Nitrite Urine Bilirubin Urine Urobilinogen Ur Leukocyte Esterase Urine Microscopic RBC Urine Microscopic WBC Ur Squamous Epith Cells Urine Bacteria Hyaline Casts Ur Culture Indicated? 12/19/17 12/20/17 12/20/17 23:57 04:05 06:20 PT 23.2 H INR 2.1 POC Glucose 230 H Urine Color Yellow Urine Clarity Cloudy A Urine pH 6.0 Ur Specific Ulm 1.022 Urine Protein Negative Urine Glucose (UA) Normal Urine Ketones Negative Urine Blood Negative Urine Nitrite Positive A Urine Bilirubin Negative Urine Urobilinogen Normal Ur Leukocyte Esterase Moderate H Urine Microscopic RBC 0-3 Urine Microscopic WBC 30-50 H Ur Squamous Epith Cells Few Urine Bacteria Few Hyaline Casts None Seen Ur Culture Indicated? YES A - Impressions Impressions Abdomen X-Ray 12/19/17 11:43 IMPRESSION: 1. Aortobi-iliac stent graft. Multiple coils within right hemipelvis. 2. Barium is noted throughout the colon. Mildly distended/dilated small bowel loops, however, overall bowel gas pattern is nonobstructive. 3. No acute osseous abnormality is identified. D/ / 12/19/2017 14:50:56 Ramiro Culp MD / Ida Gonzales Interpreting Provider: Ramiro Culp MD Pelvis X-Ray 12/19/17 11:49 IMPRESSION: 1. Aortobi-iliac stent graft. Multiple coils within right hemipelvis. 2. Barium is noted throughout the colon. Mildly distended/dilated small bowel loops, however, overall bowel gas pattern is nonobstructive. 3. No acute osseous abnormality is identified. D/ / 12/19/2017 14:50:56 Ramiro Culp MD / Ida Gonzales Interpreting Provider: Ramiro Culp MD - ABG Interpretation ABG results: PT/INR, D-dimer PT 23.2 Seconds (9.4-12.1) H 12/20/17 04:05
--- NOTE | 2017-12-19 12:35 | Anesthesia Evaluation PreOp ---
Date of Encounter: 12/19/17 Time of Encounter: 12:33 - Past History Planned Operation: EGD Cardiac History: ID, HTN, Hyperlipidemia, Arrhythmia (H/O paroxysmal A-Fib), Cardiac Surgery (CABG x 3) Pulmonary History: Former smoker (quit 50 years ago) [employer] History: CVA (no residual deficits) Other Medical History: Diabetes Type II, Thyroid, GERD, Other (H/O nasal CA S/P XRT and tracheostomy 9 years ago) Anesthesia History: No Prior Anesthetic Complications, Past Anesthesia Alcohol Use: none Drug use: none Medications and Allergies Omeprazole [PriLOSEC] 20 mg PO QAM 06/11/15 [History] Tamsulosin [Flomax] 0.4 mg PO QAM 06/11/15 [History] Lisinopril 10 mg PO BID 08/10/15 [History] Insulin Glargine,Hum.rec.anlog [Lantus Solostar] 20 unit SQ QAM 12/09/15 [ History] Acetaminophen/Butalbital/Caffe [Fioricet] 1 tab PO DAILY PRN 05/14/17 [History] Gabapentin [Neurontin] 300 mg PO BID 05/14/17 [History] Promethazine [Phenergan] 25 mg PO Q6HR PRN 05/14/17 [History] Warfarin [Coumadin] 5 mg PO SUWETHFRSA 05/15/17 [History] Aspirin Enteric Coated [Aspirin EC] 81 mg PO DAILY 08/17/17 [History] Atorvastatin Calcium [Lipitor] 80 mg PO HS 08/17/17 [History] Levothyroxine Sodium [Synthroid] 300 mcg PO QAM 08/17/17 [History] Nitroglycerin 0.4 mg SL Q5MIN PRN #14 tab.subl 08/22/17 [Rx] Metoprolol [Lopressor] 12.5 mg PO BID #60 tablet 09/11/17 [Rx] Warfarin [Coumadin] 7.5 mg PO MOTU 09/25/17 [History] Isosorbide MONOnitrate (24 HR) [Imdur] 30 mg PO DAILY #30 tab.er.24h 10/18/17 [ Rx] Tizanidine HCl [Zanaflex] 2 mg PO HS #15 cap 11/27/17 [Rx] BuPROPion XL (24 HR) [Wellbutrin XL] 150 mg PO DAILY 12/16/17 [History] Cyclobenzaprine HCl 5 mg PO HS 12/16/17 [History] Ezetimibe [Zetia] 10 mg PO DAILY 12/16/17 [History] Metformin HCl [Metformin HCl ER] 500 mg PO DAILY 12/16/17 [History] Sertraline [Zoloft] 100 mg PO DAILY 12/16/17 [History] Topiramate [Topamax] 50 mg PO HS 12/16/17 [History] amLODIPine [Norvasc] 5 mg PO DAILY 12/16/17 [History] 3 Allergy/AdvReac Type Severity Reaction Status Date / Time No Known Allergies Allergy Verified 12/05/17 16:39 - Meds/Allergy Pre-op Review Medications Reviewed: Yes Allergies Reviewed: Yes Beta Blockers on Current Med List: Yes If Beta Blockers taken, Date/Time (Last Dose taken): 12/18/2017 at 2106 Anesthesia Results - Labs 12/18/17 06:51 12/18/17 06:51 - Imaging EKG: report reviewed (11/25/2017 SINUS RHYTHM WITH OCCASIONAL SUPRAVENTRICULAR PREMATURE COMPLEXES INFERIOR MYOCARDIAL INFARCTION, OF INDETERMINATE AGE Poor R wave progression 01/24/2017 SR, IVCD) Additional studies: 08/18/2017 Echo Impressions: LVEF 55%. Mild- moderate concentric left ventricular hypertrophy. Mild left ventricular diastolic dysfunction. Normal right ventricular structure and function. Mild mitral regurgitation. Mild tricuspid regurgitation. No pulmonary hypertension. 08/09/2016 Stress Impression: Perfusion imaging was negative for ischemia or infarct. Pharmacologic ECG was negative for ischemia at the level of heart rate achieved. Patient described 5/10 chest pain at beginning of study which improved to 2/10 with stress. Gated EF = 67%. 08/08/2016 Echo Impressions: LVEF 60%. Normal left ventricular size and systolic function. Moderate LV concentric hypertrophy. There is evidence of mild diastolic dysfunction of the left ventricle. Normal right ventricular size and function. Mild aortic regurgitation. Mild mitral regurgitation. Mild tricuspid regurgitation. Estimated RVSP was 30 mmHg. No pulmonary hypertension. The IVC is not dilated. Borderline dilated aortic root for BSA, 4.0 cm. Anesthesia Exam Vital Signs/O2 Sat/Glucose, Most Recent Temp Pulse Resp BP Pulse Ox 99.3 F 80 14 106/68 94 12/19/17 12:02 12/19/17 12:02 12/19/17 12:02 12/19/17 12:02 12/19/17 12:02 Blood Glucose* 146 Height: 5'9''/1.75 m Weight: 177 lbs/80.6 kg NPO (# of Hours): 8 Pain Scale: 0 Pain Scale Used: Numeric (1 - 10) - HEENT Pupil (Motor): EOMI Mallampati: Trach (mature stoma) Teeth: Edentulous Oral Opening: Greater than 3 - [employer] LOC: Oriented [employer] Motor: Normal RUE, Normal LUE, Normal RLE, Normal LLE, Normal Face [employer] Sensory: Normal: RUE, LUE, LLE, Face, Deficit: RLE (diabetic neuropathy) - Cardiac Rhythm: Regular Murmur: None - Pulmonary Respiratory Effort: Symmetrical Anesthesia Assess/Plan ASA Score: 3 Modified Bryce Scale for Level of Consciousness: Cooperative, oriented, and tranquil Anesthetic Plan: MAC Monitoring Plan: Standard Monitors
[2017-12-19] MEDS ORDERED: Lidocaine -MPF 2% 2 ML VIAL ONE (13:06)
[2017-12-19] MEDS ORDERED: *HR* Propofol 200 MG/20 ML VIAL IVP ONE (13:07)
--- NOTE | 2017-12-19 13:08 | Rheumatology Consult Note ---
Date of Encounter: 12/19/17 Time of Encounter: 12:35 Rheumatology Assess and Plan (1) Other headache syndromes Current Visit: Yes Status: Acute This is a very complicated case. This patient has a history of chronic headaches in which he has a new, worsening change in headaches with scalp tenderness, jaw pain in the setting of elevated inflammatory markers. - Comorbid conditions under evaluation is surveillance by hematology/oncology, abnormal findings by ENT via nasolaryngoscopy and abnormal imaging findings on MRI of spine. - The question is does this patient suffer from giant cell arteritis. Reassuring findings against diffuse large vessel disease is that he has had CTA of head, neck and abdomen recently that do not show signs of large vessel thickening. PET in 05/01 negative. Though, given the change of the headache with associated symptoms and lab findings, giant cell arteritis is in the differential. - I discussed with the patient the only way to certainly know what the diagnosis is is to obtain a temporal artery biopsy but then these may be negative even yet. He was agreeable to pursuing this. He also states that his headache is so severe, he would rather stay on prednisone for a while to see if it helps and oncology has already started him on 60 mg so we will see how he does. I explained risks of this medication in that there is concern for possible infection and he understands. I explained that he is on anticoagulation and he has a history of an ulceration and he understands and agrees. - Given the complicated nature of this case, I discussed with the primary care team that getting a biopsy sooner and possibly evaluation while inpatient may be helpful. - I was able to discuss the case with Claudia Salcedo in oncology, resident on neurology and internal medicine nurse practitioner Yudith Coreas - I did speak to his outpatient primary care provider though he recently changed PCPs so I was unable to see what his baseline condition was. (2) Sedimentation rate elevation Current Visit: Yes Status: Acute Elevations in ESR and CRP Unclear etiology; he is currently being worked up for malignancy, with abnormal findings on imaging getting workup for infection and now possible inflammatory condition. Previous UA contaminated and with RBCs; will repeat. Continue to clinically follow as he gets worked up from multiple specialties. (3) Abnormal finding on imaging Current Visit: Yes Status: Acute Has now had evaluation by neurology and now pending orthopedic spine surgery Await further recommendations (4) Warfarin anticoagulation Current Visit: Yes Status: Acute (5) On prednisone therapy Current Visit: Yes Status: Acute I explained the risks and benefits of using prednisone to the patient. I have discussed that this medication has multiple side effects including elevation of blood sugar, elevation in blood pressure, risk for infections, risk for osteoporosis, risk for avascular necrosis of the bone and glaucoma. I discussed that this medication should be used at the lowest effective dose for the shortest period of time and should not be stopped suddenly if on prolonged use as there is risk for withdrawel symptoms. I also spoke to internal medicine regarding need for gastric protection while on prednisone and they will treat. Rheumatology HPI Consult date: 12/19/17 Requesting physician: Yudith Coreas Consult reason: Headache, ESR elevation Chief complaint: Headache History of present illness: Mr. Salmeron is a 77 year old male with PMH of CVA, atrial fibrillation on anticoagulation, CAD, gastric ulcer, nasopharyngeal carcinoma (2006) who presents to [facility] with left sided weakness and worsening headache. This patient states that he has suffered from headaches in the past though in the past 2 months, the character of his headaches have changed. He reports that it has extended throughout his scalp to his forehead. He states that the headache is severe in nature; it is associated with scalp tenderness. He reports that he has always worn a head, but the scalp sensitivity worsened to the point where he no longer was able to wear this. He reports that he has had pain on the right side of his jaw, worse with chewing but he does not have a resting pain in his jaw. He denies vision changes. He reports some changes in hearing of his right ear as well. He denies tongue burning, no jaw burning, no aching in one extremity more than the other. He reports that the left sided weakness that he experienced on Monday has since resolved. MRI head on 12/16 showed old infarcts. Imaging of the C, T and L spine was abnormal with degenerative changes and some fluid noted around Lumbar spine in which ortho spine surgery has been consulted. He has had a workup on 11/25 with Head and neck CTA in which the aortic arch was normal and there was more atherosclerotic changes and a vertebral thrombosis noted. In 11/02, he had an abdominal CT without evidence of vessel wall changes. Last PET scan was in 05/01 without any metabolic activity. He denies any pain in his bilateral shoulders and his hips. Denies swelling in his joints. He has been seen by oncology this visit too who suspect giant cell arteritis and prednisone 60 mg was started. Past Med Surg Social Fam HX - Past Medical History Medical history: atrial fibrillation, cancer, coronary artery disease, CVA, diabetes, hypertension, myocardial infarction, peripheral artery disease, SVT, thyroid disease Psychiatric history: no psych history - Past Surgical History Surgical History: angioplasty/stent, appendectomy, coronary bypass (CABG), herniorrhaphy, LE vascular intervention, tracheostomy - Social History Smoking Status: Former smoker Smokeless Tobacco Status: No Alcohol use: none Drug use: none - Family History Mother Living Status: Hx Family Cardiac Disorders: No Hx Family Respiratory Disorders: No Hx Family Cancer: No Hx Family GI Disorders: No Hx Family Endocrine Disorder: No Hx Family Neuromuscular Disorders: No Hx Family Neurologic Disorders: No Hx Family HEENT Disorders: No Hx Family Autoimmune Disorders: No Father Living Status: Hx Family Cardiac Disorders: No Hx Family Respiratory Disorders: No Hx Family Cancer: No Hx Family GI Disorders: No Hx Family Endocrine Disorder: No Hx Family Neuromuscular Disorders: No Hx Family Neurologic Disorders: No Hx Family HEENT Disorders: No Hx Family Autoimmune Disorders: No Sister Living Status: Hx Family Cancer: Yes (lung cancer) Medications and Allergies Omeprazole [PriLOSEC] 20 mg PO QAM 06/11/15 [History] Tamsulosin [Flomax] 0.4 mg PO QAM 06/11/15 [History] Lisinopril 10 mg PO BID 08/10/15 [History] Insulin Glargine,Hum.rec.anlog [Lantus Solostar] 20 unit SQ QAM 12/09/15 [ History] Acetaminophen/Butalbital/Caffe [Fioricet] 1 tab PO DAILY PRN 05/14/17 [History] Gabapentin [Neurontin] 300 mg PO BID 05/14/17 [History] Promethazine [Phenergan] 25 mg PO Q6HR PRN 05/14/17 [History] Warfarin [Coumadin] 5 mg PO SUWETHFRSA 05/15/17 [History] Aspirin Enteric Coated [Aspirin EC] 81 mg PO DAILY 08/17/17 [History] Atorvastatin Calcium [Lipitor] 80 mg PO HS 08/17/17 [History] Levothyroxine Sodium [Synthroid] 300 mcg PO QAM 08/17/17 [History] Nitroglycerin 0.4 mg SL Q5MIN PRN #14 tab.subl 08/22/17 [Rx] Metoprolol [Lopressor] 12.5 mg PO BID #60 tablet 09/11/17 [Rx] Warfarin [Coumadin] 7.5 mg PO MOTU 09/25/17 [History] Isosorbide MONOnitrate (24 HR) [Imdur] 30 mg PO DAILY #30 tab.er.24h 10/18/17 [ Rx] Tizanidine HCl [Zanaflex] 2 mg PO HS #15 cap 11/27/17 [Rx] BuPROPion XL (24 HR) [Wellbutrin XL] 150 mg PO DAILY 12/16/17 [History] Cyclobenzaprine HCl 5 mg PO HS 12/16/17 [History] Ezetimibe [Zetia] 10 mg PO DAILY 12/16/17 [History] Metformin HCl [Metformin HCl ER] 500 mg PO DAILY 12/16/17 [History] Sertraline [Zoloft] 100 mg PO DAILY 12/16/17 [History] Topiramate [Topamax] 50 mg PO HS 12/16/17 [History] amLODIPine [Norvasc] 5 mg PO DAILY 12/16/17 [History] 3 Allergy/AdvReac Type Severity Reaction Status Date / Time No Known Allergies Allergy Verified 12/05/17 16:39 All Systems Review: General - + weight loss, no weight gain, f+ atigue, nofevers Eyes - + right eye puffiness, no loss of vision, dryness/itching/foreign body sensation ENT - no dryness of mouth, oral ulcerations, no nasal ulcerations, sore throat, + jaw pain, tinnitus, or vertigo; + right hearing loss Cardiovascular - no chest pain, palpitations, lightheadedness, syncope or arm/ leg claudication Respiratory - no shortness of breath, difficulty breathing at night, pleuritic chest pain and no cough; + tracheostomy in place Gastrointestinal - no nausea, vomiting, denies melena/hematochezia; having nasopharyngeal reflux Genitourinary - no pain on urination, hematuria, frothy urine or ulcerations. Musculoskeletal - no morning stiffness, joint swelling, muscle aches, tendon/ ligament swelling or tenderness and no inflammatory back pain Integumentary - no easy bruising, rashes, hives, photosensitivity, skin thickening, alopecia, color changes of hands. Neurological -+ generalized muscle weakness and no new paresthesias Hematologic/lymphatic - no tender or swollen glands, history of anemia or + history of blood clots Rheumatology Exam Vital Signs, Last 4 Hours Temp Pulse Resp BP Pulse Ox 12/19/17 12:02 99.3 F 80 14 106/68 94 Exam: General - Alert and oriented x 3, no acute distress and appears comfortable HEENT - Conjunctiva clear though with some periorbital edema and mild erythema of right eye, no alopecia + generalized hair thinning, no facial rash, no nasal or oral mucosal lesions/ulcerations; Open tracheostomy Heme/Lymph - No cervical or supraclavicular lymph node enlargement or tenderness. No pallor. Heart - S1S2 regular in rate and rhythm without murmurs, clicks or rubs. No peripheral edema. Radial pulses equal and strong. No subclavian bruits though limited exam due to body habitus. No abdominal aorta bruits. Lungs - Unlabored breathing, clear to auscultation bilaterally without wheezes or crackles; no decrease in chest expansion Abdomen - Soft, nontender, nondistended. Unable to palpate any hepatosplenomegaly Skin - No clubbing, nodules, tophi, psoriasis, petichiae, malar rash, telangiectasias, sclerodactyly, nail pitting, onycholysis, digital ulcers. Mild erythema around right eye. Neurological - Gait not assessed as patient is in hospital bed, muscle strength exam limited due to generalized weakness. Musculoskeletal - ROM exam limited today due to being in hospital bed, no synovitis, no joint tenderness Rheumatology Results 12/18/17 06:51 12/18/17 06:51 All other labs normal. Consult Discharge Plan - Plan Referrals: Peter Carlson MD [Primary Care Provider] -
[2017-12-19] MEDS: amLODIPine 5 MG TABLET PO SCH (15:16)
[2017-12-19] MEDS: Isosorbide MONOnitrate (24 HR) 30 MG TAB.ER.24H PO SCH (15:16)
[2017-12-19] MEDS: Aspirin Enteric Coated 81 MG Tablet PO SCH (15:17)
[2017-12-19] MEDS: predniSONE 20 MG TABLET PO SCH (15:17)
[2017-12-19] MEDS: BuPROPion XL (24 HR) 150 MG TABLET PO SCH (15:17)
[2017-12-19] MEDS: Gabapentin 300 MG CAPSULE PO SCH ×2 (15:20→22:27)
[2017-12-19] MEDS: (Ezetimibe [Zetia] 10 MG) PO SCH (15:20)
--- NOTE | 2017-12-19 15:44 | Gastroenterology Consult Note ---
<Bernabe Ac Sylvia - Last Filed: 12/19/17 15:42> Date of Encounter: 12/19/17 Time of Encounter: 12:30 - Assessment and plan (1) Dysphagia Status: Acute Assessment and plan: Plan for EGD with possible dilation today. Keep NPO for procedure. Qualifiers: Dysphagia type: oropharyngeal phase Qualified Code(s): R13.12 - Dysphagia, oropharyngeal phase (2) Nasopharyngeal cancer Status: Chronic (3) Beach's esophagus Status: Acute Assessment and plan: Noted on EGD 06/02/[address] Hernandez. Continue PPI. Qualifiers: Beach's esophagus type: without dysplasia Qualified Code(s): K22.70 - Beach's esophagus without dysplasia - Time Spent With Patient Total time spent is greater than 50% in coordination of care (as documented) at patient's floor/unit and/or counseling patient: GI History of Present Illness - Data of Consult Patient: known to practice within the last 3 years Consult date: 12/19/17 Requesting Physician: Yudith Coreas - Consult Narrative Reason for consult: Dysphagia History of present illness: Mr. Salmeron is a 77 year old male with PMHx of Afib on Coumadin, nasopharyngeal cancer stage III dx 2006, CAD, CVA, DM, HTN, PA, SVT who presented to the ED with c/o lower extremity weakness. CT of the head and brain which showed no acute changes. We were consulted to evaluate his dysphagia. He reports inability to have any oral intake x3 days due to worsening reflux of food/water through nose. Modified barium swallow showed no aspiration but did show delayed clearance throughout the esophagus with mild distal esophageal dilatation. He does have a history of esophageal stricture in the past s/p dilation with EGD by Dr. Hernandez in May 2017 which also showed esophagitis, gastritis and Beach's esophagus, negative for dysplasia. Procedures: EGD 06/02/2017 Dr. Hernandez: LA Grade B esophagitis, gastritis, Beach's esophagus, no dysplasia, H pylori negative. Colonoscopy 12/16/2014 Dr. Aguirre: Internal hemorrhoids, diverticulosis, 10 mm rectal tubular adenoma. NSAIDs: ASA Anticoagulation: Coumadin Past Med Surg Social Fam HX - Past Medical History Medical history: atrial fibrillation, cancer, coronary artery disease, CVA, diabetes, hypertension, myocardial infarction, peripheral artery disease, SVT, thyroid disease Psychiatric history: no psych history - Past Surgical History Surgical History: angioplasty/stent, appendectomy, coronary bypass (CABG), herniorrhaphy, LE vascular intervention, tracheostomy - Social History Smoking Status: Former smoker Smokeless Tobacco Status: No Alcohol use: none Drug use: none - Family History Mother Living Status: Hx Family Cardiac Disorders: No Hx Family Respiratory Disorders: No Hx Family Cancer: No Hx Family GI Disorders: No Hx Family Endocrine Disorder: No Hx Family Neuromuscular Disorders: No Hx Family Neurologic Disorders: No Hx Family HEENT Disorders: No Hx Family Autoimmune Disorders: No Father Living Status: Hx Family Cardiac Disorders: No Hx Family Respiratory Disorders: No Hx Family Cancer: No Hx Family GI Disorders: No Hx Family Endocrine Disorder: No Hx Family Neuromuscular Disorders: No Hx Family Neurologic Disorders: No Hx Family HEENT Disorders: No Hx Family Autoimmune Disorders: No Sister Living Status: Hx Family Cancer: Yes (lung cancer) - Gastrointestinal Gastrointestinal: Present: as per HPI - Constitutional Constitutional: as per HPI - EENT Eyes: as per HPI Ears: Present: as per HPI Nose, mouth and throat: Present: as per HPI - Cardiovascular Cardiovascular ROS: Present: as per HPI - Respiratory Respiratory IM: Present: as per HPI - Genitourinary Genitourinary: Absent: change in color, Urinary frequency - Neurological ROS Neurological GI: Present: as per HPI - Hematologic/Lymphatic Hematologic/Lymphatic pediatric: Present: as per HPI - Musculoskeletal Musculoskeletal ROS GI: Present: as per HPI - Integumentary Integumentary GI: Present: as per HPI - Psychiatric ROS Psychiatric GI: Present: as per HPI - Endocrine Endocrine IM: Present: as per HPI - Constitutional Vitals: Temp Pulse Resp BP Pulse Ox 99.3 F 81 20 143/64 93 12/19/17 12:02 12/19/17 13:01 12/19/17 13:01 12/19/17 13:01 12/19/17 13:01 General appearance: Present: cooperative, A&O X 3, no acute distress, answers questions appropriately - Head Head exam: Present: atraumatic, normocephalic - Eye Eye exam: Present: normal appearance, sclera anicteric - ENT ENT exam: Present: mucous membranes dry - Neck Neck exam general surgery: Present: normal inspection, trachea midline - Respiratory Respiratory exam: Present: CTAB. Absent: rales, rhonchi Additional comments: Tracheostomy - Cardiovascular Cardiovascular exam: Present: RRR, +S1, +S2 - GI/Abdominal GI/Abdominal exam: Present: soft, no peritoneal signs. Absent: distended, firm , guarding, tenderness - Rectal Rectal exam: Present: deferred - Extremities Exam Extremities exam: Present: warm - Neurological Exam Neurological exam: Present: no focal deficits - Psychiatric Psychiatric exam: Present: normal affect, normal mood - Skin Skin exam: Present: dry, intact, normal color, warm Results - Labs CBC & Chem 7: 12/18/17 06:51 12/18/17 06:51 Labs: Last Result ESR 119 mm/hr (0-10) H 12/18/17 17:50 Calcium 9.1 mg/dL (8.6-10.3) 12/18/17 06:51 Troponin I < 0.03 ng/mL (< 0.04) 12/17/17 03:15 C-Reactive Protein 91 mg/L (Less than 10) H 12/18/17 17:50 Entire Visit Hgb 11.8 g/dL (12.9-16.9) L 12/18/17 06:51 Hct 38.6 % (37.5-50.1) 12/18/17 06:51 PT 25.8 Seconds (9.4-12.1) H 12/19/17 04:28 Total Bilirubin 0.5 mg/dL (0.3-1.0) 12/17/17 07:32 AST 20 Units/L (13-39) 12/17/17 07:32 ALT 34 Units/L (7-52) 12/17/17 07:32 - ABG ABG results: PT/INR, D-dimer PT 25.8 Seconds (9.4-12.1) H 12/19/17 04:28 - Impressions Impressions Abdomen X-Ray 12/19/17 11:43 IMPRESSION: 1. Aortobi-iliac stent graft. Multiple coils within right hemipelvis. 2. Barium is noted throughout the colon. Mildly distended/dilated small bowel loops, however, overall bowel gas pattern is nonobstructive. 3. No acute osseous abnormality is identified. D/ / 12/19/2017 14:50:56 Ramiro Culp MD / Ida Gonzales Interpreting Provider: Ramiro Culp MD Pelvis X-Ray 12/19/17 11:49 IMPRESSION: 1. Aortobi-iliac stent graft. Multiple coils within right hemipelvis. 2. Barium is noted throughout the colon. Mildly distended/dilated small bowel loops, however, overall bowel gas pattern is nonobstructive. 3. No acute osseous abnormality is identified. D/ / 12/19/2017 14:50:56 Ramiro Culp MD / Ida Gonzales Interpreting Provider: Ramiro Culp MD Consult Discharge Plan - Plan Instructions: Prednisone (By mouth), Levofloxacin (By mouth), Colonoscopy (GEN) Additional Instructions: f/u with ENT, Rheumatology, PCP, oncology, urology, resume self cath schedule Referrals: [facility] [place] [Provider Group] - 12/29/17 10:00 am Darvin Rodríguez DO [Partnered Physician] - 12/23/17 10:45 am Peter Carlson MD [Primary Care Provider] - 12/28/17 1:15 pm Boogie Alexandre MD [Partnered Physician] - 12/28/17 8:30 am Raman Shannon DO [Partnered Physician] - 12/29/17 10:00 am Pascual Canseco MD [Partnered Physician] - 01/04/18 7:30 am Prescriptions: levoFLOXacin [Levaquin] 750 mg PO DAILY #5 tablet predniSONE [PredniSONE] 20 mg PO DAILY #30 tablet <Kenneth Massey - Last Filed: 12/24/17 15:15> Date of Encounter: 12/19/17 - Time Spent With Patient Total time spent is greater than 50% in coordination of care (as documented) at patient's floor/unit and/or counseling patient: GI History of Present Illness - Data of Consult Requesting Physician: Yudith Coreas - Consult Narrative History of present illness: Mr. Salmeron is a 77 year old male - Constitutional Vitals: Temp Pulse Resp BP Pulse Ox 97.6 F 58 18 119/55 96 12/22/17 11:23 12/22/17 11:23 12/22/17 11:23 12/22/17 11:23 12/22/17 11:23 Results - Labs CBC & Chem 7: 12/21/17 02:36 12/21/17 02:36 Labs: Last Result ESR 119 mm/hr (0-10) H 12/18/17 17:50 Calcium 9.0 mg/dL (8.6-10.3) 12/21/17 02:36 Troponin I < 0.03 ng/mL (< 0.04) 12/17/17 03:15 C-Reactive Protein 91 mg/L (Less than 10) H 12/18/17 17:50 Entire Visit Hgb 9.6 g/dL (12.9-16.9) L D 12/21/17 02:36 Hct 30.3 % (37.5-50.1) L 12/21/17 02:36 PT 25.4 Seconds (9.4-12.1) H 12/21/17 02:36 Total Bilirubin 0.5 mg/dL (0.3-1.0) 12/17/17 07:32 AST 20 Units/L (13-39) 12/17/17 07:32 ALT 34 Units/L (7-52) 12/17/17 07:32 - ABG ABG results: PT/INR, D-dimer PT 25.4 Seconds (9.4-12.1) H 12/21/17 02:36 - Attending Attestation I have personally performed a face to face evaluation on this patient. I have reviewed and agree with the care plan. History and Exam by me shows:
[2017-12-19] MEDS ORDERED: *HR* Warfarin 5 MG TABLET PO ONE (18:00)
--- NOTE | 2017-12-19 19:54 | Internal Med Progress Note ---
Date of Encounter: 12/19/17 Time of Encounter: 19:52 - Assessment and plan (1) Dysphagia Current Visit: Yes Status: Acute Assessment and plan: Patient had a modified by barium swallow today. Upper GI study that was completed as well. He is having difficulty swallowing pills. 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 Decreased motility of esophageal body. The distal esophagus/lower esophageal spanked her is patulous. Diffuse erythema and ptosis mucosa without bleeding was found and the entire examined stomach. Diffuse mild inflammation characterized by congestion was found in the first portion of duodenum and in the second portion of duodenum. Biopsy is contraindicated because the patient is taking anticoagulation. Suspect gastroparesis due to retained gastric contents. Continue diet as recommended by speech Department Nothing by mouth after midnight for colonoscopy per gastroenterology tomorrow. Qualifiers: Dysphagia type: oropharyngeal phase Qualified Code(s): R13.12 - Dysphagia, oropharyngeal phase (2) Leg weakness, bilateral Current Visit: Yes Status: Acute Assessment and plan: patient originally presented to the ER with new onset of leg weakness. He has had right leg weakness in the past however he presented this time with left leg weakness, worked up as as stroke. CT and MRI of brain were negative. He does have a history of lumbar DDD. Does not appear to have any radicular type of pain He did undergo a MRI of lumbar spine with radiologist recommending to get MRI of thoracic spine for complete assessment. Continue with supportive treatment including pain medications MRI of thoracic and cervical spine reviewed PT and OT Orthospine service consulted, Dr. Solares saw the patient and recommended flatplate of the abdomen and pelvis to evaluate his aortic repair. He feels this correlates with the imaging seen on the MRI of the spine. He also recommends follow-up outpatient with their services pain group. MRI of [facility] spine: IMPRESSION: 1. Multilevel degenerative changes of the lumbar spine, with spinal canal stenosis most severe at L2-L3, as detailed above. Multiple levels of moderate to severe neural foraminal stenosis as detailed above. 2. Small amount of fluid signal within L2-L3 intervertebral disc, with adjacent vertebral body marrow edema. There is suggestion of endplate changes. On the previous CT examination on 10/16/2017, there was a gas within this disc space. Findings likely represent advanced degenerative changes, however, this should be correlated with any clinically concern for early discitis osteomyelitis. 3. Possible small area of enhancement within spinal canal at T12 vertebral level within the spinal canal. This appeared to be associated with conus. This is only seen on sagittal sequences, as axial sequences do not extend to thoracic spine. This is probably prominent vascular structure/vein, however, pathologic vascular enhancement from leptomeningeal process, including infectious and inflammatory process cannot be excluded. Follow-up thoracic spine examination may be obtained for more complete evaluati (3) Type 2 diabetes mellitus Current Visit: Yes Status: Acute Assessment and plan: Continue Accu-Cheks with coverage scale before meals and at bedtime Hold home oral medications Qualifiers: Diabetes mellitus complication status: with unspecified complications Diabetes mellitus mcfp insulin use: with mcfp use Qualified Code(s) : E11.8 - Type 2 diabetes mellitus with unspecified complications; Z79.4 - [facility] (current) use of insulin; Z79.4 - [employer] (current) use of insulin; Z79.4 - [facility] (current) use of insulin; Z79.4 - [facility] (current) use of insulin (4) Atrial fibrillation Current Visit: Yes Status: Chronic Assessment and plan: Paroxysmal with stable heart rate Qualifiers: Atrial fibrillation type: paroxysmal Qualified Code(s): I48.0 - Paroxysmal atrial fibrillation (5) Headache Current Visit: Yes Status: Chronic Assessment and plan: Appears to be chronic in nature,he was seen here approximately a month ago for same complaint and was seen by neurology at that time. According to reports he was advised to follow-up as outpatient which he did not. He presented back to the ER with continued complaint of frontal headache - CT and MRI of head are negative -Neurology at that time was concerned for possible muscle contraction type headache suggesting trial Solu-Medrol with Phenergan and low-dose muscle relaxer at night.-However according to [facility] W reports patient did not continue treatment outpatient. He was seen by neurology again this visit who again diagnosis chronic tension-type headache and suggesting continued treatment. Continue muscle relaxers -According to oncology note it appears the patient has a history of occipital headache syndrome and has been seen by Dr. 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 He was to undergo an PET scan however that was not completed due to he had elevated blood sugars. He was also referred back to Dr. 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 He continues to complain of difficulty swallowing as well as headaches. He was evaluated by speech therapy with modified barium swallow completed as well as Upper GI. Modified diet per speech Oncology following GI completed EGD today which revealed difficulty with motility of the esophagus and gastroparesis Patient has had a PET scan as an outpatient which will likely be next Monday , arrangement per oncology (8) DVT prophylaxis Current Visit: Yes Status: Acute Assessment and plan: Patient is on chronic coumadin therapy (9) Sedimentation rate elevation Current Visit: Yes Status: Acute Assessment and plan: Rheumatology was consulted to see the patient regarding possible temporal arteritis with elevated sedimentation rate. He is currently on prednisone. Vascular surgery was consult regarding a temporal arterial biopsy. That will be completed on or Monday. Patient is agreement. - Subjective Interval history: Patient is alert and interactive with no acute distress. He has some chronic weakness of his right lower extremity with intermittent left lower extremity weakness. He is pain-free at this time. He is status post EGD. Denies fever chills chest pain or shortness of breath. He is currently eating and swallowing without difficulty. - Constitutional Vitals: Temp Pulse Resp BP Pulse Ox 98.8 F 88 17 108/58 94 12/19/17 19:12 12/19/17 19:12 12/19/17 19:12 12/19/17 19:12 12/19/17 19:12 General appearance: Present: cooperative, A&O X 3, pleasant, answers questions appropriately - Head Head exam: Present: atraumatic, normocephalic - Eye Eye exam: Present: PERRL, sclera anicteric Pupils: Present: PERRL Additional comments: Conjunctiva slightly inflamed bilaterally - Neck Neck exam general surgery: Present: supple, trachea midline. Absent: lymphadenopathy - Respiratory Respiratory exam: Present: decreased breath sounds, CTAB. Absent: accessory muscle use, rales, respiratory distress, rhonchi, wheezes Additional comments: I kill stoma intact - Cardiovascular Cardiovascular exam: Present: RRR, +S1, +S2. Absent: diastolic murmur, gallop, rubs, systolic murmur - GI/Abdominal GI/Abdominal exam: Present: normal bowel sounds, soft, no peritoneal signs. Absent: distended, guarding, tenderness - Extremities Exam Extremities exam: Present: warm, radial pulses palpable and symmetrical. Absent : calf tenderness, cyanotic, pedal edema - Neurological Exam Neurological exam: Present: alert, CN II-XII intact, oriented X3, no focal deficits. Absent: pronater drift, facial droop, speech deficit - Skin Skin exam: Present: dry, intact, normal color, warm Internal Medicine: Result - Labs CBC & Chem 7: 12/18/17 06:51 12/18/17 06:51 - ABG Interpretation ABG results: PT/INR, D-dimer PT 25.8 Seconds (9.4-12.1) H 12/19/17 04:28 - Impressions Impressions Abdomen X-Ray 12/19/17 11:43 IMPRESSION: 1. Aortobi-iliac stent graft. Multiple coils within right hemipelvis. 2. Barium is noted throughout the colon. Mildly distended/dilated small bowel loops, however, overall bowel gas pattern is nonobstructive. 3. No acute osseous abnormality is identified. D/ / 12/19/2017 14:50:56 Ramiro Culp MD / dIa Gonzales Interpreting Provider: Ramiro Culp MD Pelvis X-Ray 12/19/17 11:49 IMPRESSION: 1. Aortobi-iliac stent graft. Multiple coils within right hemipelvis. 2. Barium is noted throughout the colon. Mildly distended/dilated small bowel loops, however, overall bowel gas pattern is nonobstructive. 3. No acute osseous abnormality is identified. D/ / 12/19/2017 14:50:56 Ramiro Culp MD / Ida Gonzales Interpreting Provider: Ramiro Culp MD Consult Discharge Plan - Plan Referrals: Peter Carlson MD [Primary Care Provider] -
--- NOTE | 2017-12-19 20:02 | Electrocardiograph Report ---
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
[2017-12-19] MEDS: Topiramate 25 MG TABLET PO SCH (22:24)
[2017-12-19] MEDS: tiZANidine 4 MG TABLET PO SCH (22:27)
--- NOTE | 2017-12-19 23:27 | Event Note ---
Date of Encounter: 12/19/17 Time of Encounter: 23:25 Patient will be seen in consult tomorrow due to the late hour tonight. Tentatively plan on right temporal artery biopsy on . Note Coumadin will need to be at least partially reversed so that the INR is less than 2.0 prior to surgery on .
[2017-12-20] MEDS: Insulin LISPRO 300 UNITS/3 ML VIAL SQ SCH ×4 (00:02→20:22)
[2017-12-20 05:04] LABS: INR 2.1; Prothrombin Time 23.2 Seconds (9.4-12.1)
[2017-12-20 06:39] LABS: Bilirubin,Urine Negative (Negative); Blood,Urine Negative (Negative); Clarity,Urine Cloudy (Clear); Color,Urine Yellow (Yellow); Glucose,Urine (UA) Normal (Normal); Ketones,Urine Negative (Negative); Leukocyte Esterase,Urine Moderate (Negative); Nitrite,Urine Positive (Negative); Protein,Urine Negative (Neg-Trace); Specific Gravity,Urine 1.022 (1.010-1.025); Urobilinogen,Urine Normal (Normal)
[2017-12-20 06:41] LABS: Bacteria,Urine Few per hpf (None-Few); Hyaline Casts,Urine None Seen per lpf (None-Few); RBC,Urine 0-3 per hpf (0-3); Squamous Epithelial Cell,Urine Few per lpf (None-Few); WBC,Urine 30-50 per hpf (0-3)
[2017-12-20] MEDS: Aspirin Enteric Coated 81 MG Tablet PO SCH (08:54)
[2017-12-20] MEDS: Isosorbide MONOnitrate (24 HR) 30 MG TAB.ER.24H PO SCH (08:56)
[2017-12-20] MEDS: BuPROPion XL (24 HR) 150 MG TABLET PO SCH (08:56)
[2017-12-20] MEDS: predniSONE 20 MG TABLET PO SCH (08:57)
[2017-12-20] MEDS: (Ezetimibe [Zetia] 10 MG) PO SCH (08:59)
[2017-12-20] MEDS: Gabapentin 300 MG CAPSULE PO SCH ×2 (08:59→20:20)
[2017-12-20] MEDS: amLODIPine 5 MG TABLET PO SCH (08:59)
[2017-12-20] MEDS ORDERED: Aminoglycoside Consult 1 EACH MC ONE (09:46)
--- NOTE | 2017-12-20 10:21 | Neurology Progress Note ---
<Keyshawn Mendez - Last Filed: 12/20/17 10:19> Date of Encounter: 12/20/17 Time of Encounter: 08:20 Assessment and Plan (1) Leg weakness, bilateral Current Visit: Yes Status: Acute Mr. Salmeron 77-year-old gentleman with multiple medical problems including previous right lower extremity weakness presented with left lower extremity weakness which was new. Upon evaluation he does not appear to demonstrate any significant weakness in his left lower extremity. He does demonstrate some mild right lower extremity weakness compared to his left which she has been chronic. MRI of brain negative for B[employer]ING NURSE pathology. MRI of the lumbar spine demonstrated concerning findings for narrowing and small amount of fluid signal within the L2-L3 intravertebral disc space. There is a possibility that the area of the spinal canal may be contributing to his current intermittent symptoms. Would recommend discussion with or so spine for further evaluation. Orders for MRI of the cervical spine and thoracic spine are pending. 12/19/17: No acute changes compared to yesterday, MRI of the cervical spine and thoracic spine were completed with the cervical spine demonstrating multilevel disc osteophyte complex results in multilevel mild central canal narrowing and neural foraminal narrowing. The thoracic spine demonstrated T9-T10 central disc protrusion without significant canal compromise. It appears that a majority of his symptoms in his lower extremities are associated with his lumbar findings. Awaiting further evaluation recommendations per orthospine. 12/20/17: No acute changes compared to yesterday, patient feels slightly better compared to yesterday. No changes from neurology standpoint. Subjective Interval history: Mr. Salmeron 77-year-old male seen about the patient bedside. He is alert awake interactive no acute distress. No acute neurologic changes compared to yesterday. He states that he feels stronger today and his pain is slightly diminished. He denies any changes in mobility in his lower extremities Feels that he is able to ambulate slightly better than previously. He was able to tolerate breakfast and has no further complaints or concerns for neurology at this time. Objective - Constitutional Vitals: Temp Pulse Resp BP Pulse Ox 97.8 F 58 20 102/60 93 12/20/17 07:28 12/20/17 07:28 12/20/17 07:28 12/20/17 07:28 12/20/17 09:00 General appearance: Present: cooperative, A&O X 3, no acute distress, answers questions appropriately - Neurological Exam Motor Examination: Present: other Sensation intact: Present: intact Mental Status Examination: Present: awake, alert, oriented to person, oriented to place, oriented to time, follows commands appropriately, answers questions appropriately, no agnosia, no aphasia, no aproxia, lucid Cranial nerve examination: Present: PERRL, EOMI, sensory to face intact, mastication intact, no facial asymmetry is present, no dysarthria, hearing is intact symmetrically, soft palate elevates bilaterally upon phonation, flexes SCM and trapezius muscles symmetrically with full power, tongue protrudes midline, no atrophy or facial fasiculations present Additional comments: Sensation intact: Present: intact Additional comments: Motor examination - right side: 02/17: deltoids, biceps, triceps, wrist flexion, wrist extension, heel attacher wood, hip flexors, tibialis Anterior, quadriceps, toe extension (EHL), plantarflexion Motor examination - left side: 02/17: deltoids, biceps, triceps, wrist flexion, wrist extension, hip flexors, heel attacher wood, quadriceps, tibialis Anterior, toe extension (EHL), plantarflexion Sensation intact: Present: intact Reflexes: Biceps: 2+, Triceps: 2+, Brachioradialis: 2+, Patella: 2+, Achilles: 2 + Mental Status Examination: Present: awake, alert, oriented to person, oriented to place, oriented to time, follows commands appropriately, answers questions appropriately, no agnosia, no aphasia, no aproxia, lucid Results - Laboratory Findings CBC and BMP: 12/18/17 06:51 12/18/17 06:51 Abnormal lab findings: Abnormal lab results Hgb 11.8 g/dL (12.9-16.9) L 12/18/17 06:51 MCH 27.4 pg (28.0-33.3) L 12/18/17 06:51 MCHC 30.6 g/dL (31.6-35.5) L 12/18/17 06:51 RDW 14.6 % (11.5-14.5) H 12/18/17 06:51 ESR 119 mm/hr (0-10) H 12/18/17 17:50 PT 23.2 Seconds (9.4-12.1) H 12/20/17 04:05 APTT 36.7 Seconds (26.0-36.0) H 12/17/17 07:32 Sodium 133 mEq/L (136-145) L 12/18/17 06:51 Carbon Dioxide 21 mEq/L (23-29) L 12/18/17 06:51 BUN 28 mg/dL (8-23) H 12/18/17 06:51 BUN/Creatinine Ratio 33 (6-26) H 12/18/17 06:51 POC Glucose 230 (58-89) H 12/19/17 23:57 Alkaline Phosphatase 109 Units/L (34-104) H 12/17/17 07:32 C-Reactive Protein 91 mg/L (Less than 10) H 12/18/17 17:50 Albumin 3.4 g/dL (3.5-5.7) L 12/17/17 07:32 Globulin 3.9 g/dL (2.4-3.5) H 12/17/17 07:32 Albumin/Globulin Ratio 0.9 (1.1-2.2) L 12/17/17 07:32 Urine Clarity Cloudy (Clear) A 12/20/17 06:20 Urine Nitrite Positive (Negative) A 12/20/17 06:20 Ur Leukocyte Esterase Moderate (Negative) H 12/20/17 06:20 Urine Microscopic WBC 30-50 per hpf (0-3) H 12/20/17 06:20 Ur Culture Indicated? YES (NO) A 12/20/17 06:20 Vancomycin Trough 21.2 mcg/mL (10-20) H* 12/18/17 17:50 Consult Discharge Plan - Plan Referrals: Peter Carlson MD [Primary Care Provider] - <Ale Goff I - Last Filed: 12/20/17 16:35> Date of Encounter: 12/20/17 Assessment and Plan (1) Headache Current Visit: No Status: Acute Patient seemed to have improvement with the headache overall he is a stable he is on high doses of prednisone is scheduled for biopsy possibly tomorrow. He is been followed by rheumatology. Imaging studies has been negative for any signs of vasculitis. Follow rheumatology recommendations regarding long-term treatment with the steroids for the possibility of giant cell arteritis. Qualifiers: Headache type: unspecified Headache chronicity pattern: unspecified pattern Intractability: not intractable Qualified Code(s): R51 - Headache (2) Leg weakness, bilateral Current Visit: Yes Status: Acute Pt was seen and examined, my medical decision was reviewed with the Resident Physician, I agree with the documented findings, disposition and treatment plas as described except to the extent set forth below Ale Goff MD Patient leg weakness has improved likely is related to high doses of steroid that he has received earlier. He will be following up with his spine surgery as an outpatient other treatment is as per primary team Objective - Constitutional Vitals: Temp Pulse Resp BP Pulse Ox 97.7 F 56 16 129/69 92 12/20/17 11:32 12/20/17 11:32 12/20/17 11:32 12/20/17 11:32 12/20/17 11:32 Results - Laboratory Findings CBC and BMP: 12/18/17 06:51 12/18/17 06:51 Abnormal lab findings: Abnormal lab results Hgb 11.8 g/dL (12.9-16.9) L 12/18/17 06:51 MCH 27.4 pg (28.0-33.3) L 12/18/17 06:51 MCHC 30.6 g/dL (31.6-35.5) L 12/18/17 06:51 RDW 14.6 % (11.5-14.5) H 12/18/17 06:51 ESR 119 mm/hr (0-10) H 12/18/17 17:50 PT 23.2 Seconds (9.4-12.1) H 12/20/17 04:05 APTT 36.7 Seconds (26.0-36.0) H 12/17/17 07:32 Sodium 133 mEq/L (136-145) L 12/18/17 06:51 Carbon Dioxide 21 mEq/L (23-29) L 12/18/17 06:51 BUN 28 mg/dL (8-23) H 12/18/17 06:51 BUN/Creatinine Ratio 33 (6-26) H 12/18/17 06:51 POC Glucose 230 (58-89) H 12/19/17 23:57 Alkaline Phosphatase 109 Units/L (34-104) H 12/17/17 07:32 C-Reactive Protein 91 mg/L (Less than 10) H 12/18/17 17:50 Albumin 3.4 g/dL (3.5-5.7) L 12/17/17 07:32 Globulin 3.9 g/dL (2.4-3.5) H 12/17/17 07:32 Albumin/Globulin Ratio 0.9 (1.1-2.2) L 12/17/17 07:32 Urine Clarity Cloudy (Clear) A 12/20/17 06:20 Urine Nitrite Positive (Negative) A 12/20/17 06:20 Ur Leukocyte Esterase Moderate (Negative) H 12/20/17 06:20 Urine Microscopic WBC 30-50 per hpf (0-3) H 12/20/17 06:20 Ur Culture Indicated? YES (NO) A 12/20/17 06:20 Vancomycin Trough 21.2 mcg/mL (10-20) H* 12/18/17 17:50
--- NOTE | 2017-12-20 13:07 | Rheumatology Progress Note ---
Date of Encounter: 12/20/17 Time of Encounter: 12:00 Rheumatology Assess and Plan (1) Other headache syndromes Current Visit: Yes Status: Acute Headache has improved. Still remains unclear as to cause. Dr. Mondragon is hoping to complete temporal artery biopsy tomorrow. We did discuss the case today and since he had jaw symptoms on the right, will proceed with this side. He has now had prednisone and some improvement, though response may be nonspecific. Will cautiously proceed with treatment with prednisone suspecting a possibility of giant cell arteritis. (2) Sedimentation rate elevation Current Visit: Yes Status: Acute Working up inflammatory condition such as GCA. Infectious workup pending. Needs follow-up on abnormal spinal imaging and awaiting ortho spine eval. UA sample suspicious for possible UTI though a few squamous cells; culture pending (3) Abnormal finding on imaging Current Visit: Yes Status: Acute Awaiting ortho spine surgeon recommendations and eval (4) Warfarin anticoagulation Current Visit: Yes Status: Acute (5) On prednisone therapy Current Visit: Yes Status: Acute POC glucose elevated, need to continue to monitor this closely for if he is discharge on prednisone will need to ensure coverage for blood glucose if needed. Continue PPI and ensure discharge on PPI. (6) Abnormal urinalysis Current Visit: Yes Status: Acute Await culture - Subjective Interval history: Patient seen and examined. Yesterday, he was started on prednisone. He reports he has less puffiness in his right eye, headache about 70-80% improved, some of the "buzzing" in his right ear her reports has improved. He has no new rashes, no tongue pain, no throat burning, no vision changes. Blood glucose elevated today on serology. Exam Vital Signs, Last 4 Hours Temp Pulse Resp BP Pulse Ox 12/20/17 11:32 97.7 F 56 16 129/69 92 Exam: General - Alert and oriented x 3, no acute distress, conversant HEENT - No scalp tenderness, no tenderness to clenching jaw, no oral ulcerations Heart - S1S2 RRR without murmur or extra heart sounds, radial pulses equal Lungs - Clear to auscultation bilaterally on anterior exam Skin - No rashes or cutaneous ulcerations Objective Data 12/18/17 06:51 12/18/17 06:51 All other labs normal. Consult Discharge Plan - Plan Referrals: Peter Carlson MD [Primary Care Provider] -
[2017-12-20] MEDS: OXYCODONE Oral CONC 10 MG/0.5 ML ORAL.SYG SL PRN (13:55)
--- NOTE | 2017-12-20 14:24 | Vascular/Endovasc Consult Note ---
Date of Encounter: 12/20/17 Time of Encounter: 08:30 Assessment and Plan (1) Other headache syndromes Current Visit: Yes Status: Chronic Patient has chronic headaches. It is unclear how long these headaches have been persisting. They are bilateral. (2) Sedimentation rate elevation Current Visit: Yes Status: Acute Marked elevation of the sedimentation rate of 119. Patient has other potential explanations but concern was raised of the possibility of temporal arteritis. (3) Temporal arteritis Current Visit: Yes Status: Acute Patient has headaches and right jaw pain and elevated sedimentation rate. Vascular surgery was asked to see the patient to perform a right temporal artery biopsy. The biopsy will be performed tomorrow at approximately 11:30 AM. This was reviewed with the patient. His Coumadin has been placed on hold effective yesterday. - History of Present Illness Consult date: 12/20/17 Consult reason: Temporal artery biopsy Chief complaint: Headache and lower extremity weakness History of present illness: Mr. Salmeron is a 77 year old male With a very complex past medical history that includes cardiovascular disease peripheral vascular disease stroke cancer and long-term ongoing medical problems as well as a tracheostomy. The patient was admitted a few days ago because of bilateral lower extremity weakness with left leg dragging. This has improved. As part of his evaluation a sedimentation rate was obtained and review was made of complaints he had a chronic headache. This led to revealing that he was having pain in the right jaw. Because his sedimentation rate was so high at 119 and with his history of headaches and jaw pain vascular surgery was asked to see the patient at this time for a temporal artery biopsy to rule out the possibility of temporal arteritis. On my visit with the patient this morning he has no new complaints. He states he has an ongoing headache and today it is worse on the left hemicranium than on the right side. Patient is able to communicate by occluding his tracheostomy. At the time of my visit he was being prepared for the insertion of a PICC line. Past Med Surg Social Fam HX - Past Medical History Medical history: atrial fibrillation, cancer, coronary artery disease, CVA, diabetes, hypertension, myocardial infarction, peripheral artery disease, SVT, thyroid disease Psychiatric history: no psych history - Past Surgical History Surgical History: angioplasty/stent, appendectomy, coronary bypass (CABG), herniorrhaphy, LE vascular intervention, tracheostomy - Social History Smoking Status: Former smoker Smokeless Tobacco Status: No Alcohol use: none Drug use: none - Family History Mother Living Status: Hx Family Cardiac Disorders: No Hx Family Respiratory Disorders: No Hx Family Cancer: No Hx Family GI Disorders: No Hx Family Endocrine Disorder: No Hx Family Neuromuscular Disorders: No Hx Family Neurologic Disorders: No Hx Family HEENT Disorders: No Hx Family Autoimmune Disorders: No Father Living Status: Hx Family Cardiac Disorders: No Hx Family Respiratory Disorders: No Hx Family Cancer: No Hx Family GI Disorders: No Hx Family Endocrine Disorder: No Hx Family Neuromuscular Disorders: No Hx Family Neurologic Disorders: No Hx Family HEENT Disorders: No Hx Family Autoimmune Disorders: No Sister Living Status: Hx Family Cancer: Yes (lung cancer) Medications and Allergies Omeprazole [PriLOSEC] 20 mg PO QAM 06/11/15 [History] Tamsulosin [Flomax] 0.4 mg PO QAM 06/11/15 [History] Lisinopril 10 mg PO BID 08/10/15 [History] Insulin Glargine,Hum.rec.anlog [Lantus Solostar] 20 unit SQ QAM 12/09/15 [ History] Acetaminophen/Butalbital/Caffe [Fioricet] 1 tab PO DAILY PRN 05/14/17 [History] Gabapentin [Neurontin] 300 mg PO BID 05/14/17 [History] Promethazine [Phenergan] 25 mg PO Q6HR PRN 05/14/17 [History] Warfarin [Coumadin] 5 mg PO SUWETHFRSA 05/15/17 [History] Aspirin Enteric Coated [Aspirin EC] 81 mg PO DAILY 08/17/17 [History] Atorvastatin Calcium [Lipitor] 80 mg PO HS 08/17/17 [History] Levothyroxine Sodium [Synthroid] 300 mcg PO QAM 08/17/17 [History] Nitroglycerin 0.4 mg SL Q5MIN PRN #14 tab.subl 08/22/17 [Rx] Metoprolol [Lopressor] 12.5 mg PO BID #60 tablet 09/11/17 [Rx] Warfarin [Coumadin] 7.5 mg PO MOTU 09/25/17 [History] Isosorbide MONOnitrate (24 HR) [Imdur] 30 mg PO DAILY #30 tab.er.24h 10/18/17 [ Rx] Tizanidine HCl [Zanaflex] 2 mg PO HS #15 cap 11/27/17 [Rx] BuPROPion XL (24 HR) [Wellbutrin XL] 150 mg PO DAILY 12/16/17 [History] Cyclobenzaprine HCl 5 mg PO HS 12/16/17 [History] Ezetimibe [Zetia] 10 mg PO DAILY 12/16/17 [History] Metformin HCl [Metformin HCl ER] 500 mg PO DAILY 12/16/17 [History] Sertraline [Zoloft] 100 mg PO DAILY 12/16/17 [History] Topiramate [Topamax] 50 mg PO HS 12/16/17 [History] amLODIPine [Norvasc] 5 mg PO DAILY 12/16/17 [History] 3 Allergy/AdvReac Type Severity Reaction Status Date / Time No Known Allergies Allergy Verified 12/05/17 16:39 All Systems Review: The remainder of the systems were reviewed and are negative Exam Vital Signs, Last 4 Hours Temp Pulse Resp BP Pulse Ox 12/20/17 11:32 97.7 F 56 16 129/69 92 General: Present: Conversant, No Apparent Distress HEENT: Present: Other (Tracheostomy present. Status post previous neck surgery. ) Neck: Absent: JVD, Midline deformity Cardiac: Present: Reg Rate and Rhythm, Other (Patient has history of A. fib) Neuro: Present: Alert and responsive, Cranial nerves grossly intact Vascular: Present: Other (Patient has palpable superficial temporal artery pulses bilaterally. No tenderness to manipulation of the artery or the temporal area bilaterally.) Consult Discharge Plan - Plan Referrals: Peter Carlson MD [Primary Care Provider] -
--- NOTE | 2017-12-20 15:41 | Internal Med Progress Note ---
Date of Encounter: 12/20/17 Time of Encounter: 15:37 - Assessment and plan (1) Dysphagia Current Visit: Yes Status: Acute Assessment and plan: Patient had a modified by barium swallow today. Upper GI study that was completed as well. He is having difficulty swallowing pills. 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 Decreased motility of esophageal body. The distal esophagus/lower esophageal spanked her is patulous. Diffuse erythema and ptosis mucosa without bleeding was found and the entire examined stomach. Diffuse mild inflammation characterized by congestion was found in the first portion of duodenum and in the second portion of duodenum. Biopsy is contraindicated because the patient is taking anticoagulation. Suspect gastroparesis due to retained gastric contents. Continue diet as recommended by speech Department Nothing by mouth after midnight for colonoscopy per gastroenterology. Prep started tonight Qualifiers: Dysphagia type: oropharyngeal phase Qualified Code(s): R13.12 - Dysphagia, oropharyngeal phase (2) Leg weakness, bilateral Current Visit: Yes Status: Acute Assessment and plan: patient originally presented to the ER with new onset of leg weakness. He has had right leg weakness in the past however he presented this time with left leg weakness, worked up as as stroke. CT and MRI of brain were negative. He does have a history of lumbar DDD. Does not appear to have any radicular type of pain He did undergo a MRI of lumbar spine with radiologist recommending to get MRI of thoracic spine for complete assessment. Continue with supportive treatment including pain medications MRI of thoracic and cervical spine reviewed PT and OT Orthospine service consulted, Dr. Solares saw the patient and recommended flatplate of the abdomen and pelvis to evaluate his aortic repair which were obtained. He feels this correlates with the imaging seen on the MRI of the spine. He also recommends follow-up outpatient with their services pain [facility] IMPRESSION: 1. Multilevel degenerative changes of the lumbar spine, with spinal canal stenosis most severe at L2-L3, as detailed above. Multiple levels of moderate to severe neural foraminal stenosis as detailed above. 2. Small amount of fluid signal within L2-L3 intervertebral disc, with adjacent vertebral body marrow edema. There is suggestion of endplate changes. On the previous CT examination on 10/16/2017, there was a gas within this disc space. Findings likely represent advanced degenerative changes, however, this should be correlated with any clinically concern for early discitis osteomyelitis. 3. Possible small area of enhancement within spinal canal at T12 vertebral level within the spinal canal. This appeared to be associated with conus. This is only seen on sagittal sequences, as axial sequences do not extend to thoracic spine. This is probably prominent vascular structure/vein, however, pathologic vascular enhancement from leptomeningeal process, including infectious and inflammatory process cannot be excluded. Follow-up thoracic spine examination may be obtained for more complete evaluati (3) Type 2 diabetes mellitus Current Visit: Yes Status: Acute Assessment and plan: Accu-Cheks with coverage scale before meals and at bedtime Hold home oral medications Qualifiers: Diabetes mellitus complication status: with unspecified complications Diabetes mellitus mcc insulin use: with rat exterminator use Qualified Code(s) : E11.8 - Type 2 diabetes mellitus with unspecified complications; Z79.4 - termite exterminator helper (current) use of insulin; Z79.4 - termite exterminator helper (current) use of insulin; Z79.4 - FDC (current) use of insulin; Z79.4 - FDC (current) use of insulin (4) Atrial fibrillation Current Visit: Yes Status: Chronic Assessment and plan: Paroxysmal/ stable heart rate Qualifiers: Atrial fibrillation type: paroxysmal Qualified Code(s): I48.0 - Paroxysmal atrial fibrillation (5) Headache Current Visit: Yes Status: Chronic Assessment and plan: Appears to be chronic/ intermittent in intensity in nature,he was seen here approximately a month ago for same complaint and was seen by neurology at that time. According to reports he was advised to follow-up as outpatient which he did not. He presented back to the ER with continued complaint of frontal headache - CT and MRI of head are negative -Neurology at that time was concerned for possible muscle contraction type headache suggesting trial Solu-Medrol with Phenergan and low-dose muscle relaxer at night.-However according to EC W reports patient did not continue treatment outpatient. He was seen by neurology again this visit who again diagnosis chronic tension-type headache and suggesting continued treatment. Continue muscle relaxers -According to oncology note it appears the patient has a history of occipital headache syndrome and has been seen by Dr. 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 He was to undergo an PET scan however that was not completed due to he had elevated blood sugars. He was also referred back to Dr. 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 He continues to complain of difficulty swallowing as well as headaches. He was evaluated by speech therapy with modified barium swallow completed as well as Upper GI. Modified diet per speech Oncology following GI completed EGD today which revealed difficulty with motility of the esophagus and gastroparesis Patient has had a PET scan as an outpatient which will likely be next Monday , arrangement per oncology (8) DVT prophylaxis Current Visit: Yes Status: Acute Assessment and plan: Patient is on chronic coumadin therapy which has been held for biopsy in am (9) Sedimentation rate elevation Current Visit: Yes Status: Acute Assessment and plan: Rheumatology was consulted to see the patient regarding possible temporal arteritis with elevated sedimentation rate. He is currently on prednisone which he will manage on an outpatient basis. Vascular surgery was consulted regarding a temporal arterial biopsy. That will be completed on Patient is in agreement. - Subjective Interval history: Patient is alert and interactive with no acute distress. He is pain-free at this time. He is status post EGD. Denies fever chills chest pain or shortness of breath. He is currently eating and swallowing without difficulty. - Constitutional Vitals: Temp Pulse Resp BP Pulse Ox 97.7 F 56 16 129/69 92 03/07/18 11:32 12/20/17 11:32 12/20/17 11:32 12/20/17 11:32 12/20/17 11:32 General appearance: Present: cooperative, A&O X 3, pleasant, answers questions appropriately - Head Head exam: Present: atraumatic, normocephalic - Eye Eye exam: Present: PERRL, conjuntiva pink, sclera anicteric Pupils: Present: PERRL - Neck Neck exam general surgery: Present: supple, trachea midline. Absent: lymphadenopathy - Respiratory Respiratory exam: Present: CTAB. Absent: accessory muscle use, rales, respiratory distress, rhonchi, wheezes Additional comments: tracheal stoma intact - Cardiovascular Cardiovascular exam: Present: RRR, +S1, +S2. Absent: diastolic murmur, gallop, rubs, systolic murmur - GI/Abdominal GI/Abdominal exam: Present: normal bowel sounds, soft, no peritoneal signs. Absent: distended, tenderness - Extremities Exam Extremities exam: Present: warm, radial pulses palpable and symmetrical. Absent : calf tenderness, cyanotic, pedal edema - Neurological Exam Neurological exam: Present: CN II-XII intact, oriented X3, no focal deficits. Absent: pronater drift, facial droop, speech deficit - Skin Skin exam: Present: dry, intact, normal color, warm Internal Medicine: Result - Labs CBC & Chem 7: 12/18/17 06:51 12/18/17 06:51 Labs: Urine 12/20/17 Range/Units 06:20 Urine Color Yellow (Yellow) Urine Clarity Cloudy A (Clear) Urine pH 6.0 (5.0-8.0) pH Units Ur Specific [place] 1.022 (1.010-1.025) Urine Protein Negative (Neg-Trace) mg/dL Urine Glucose (UA) Normal (Normal) mg/dL - ABG Interpretation ABG results: PT/INR, D-dimer PT 23.2 Seconds (9.4-12.1) H 12/20/17 04:05 - Impressions Impressions Abdomen X-Ray 12/19/17 11:43 IMPRESSION: 1. Aortobi-iliac stent graft. Multiple coils within right hemipelvis. 2. Barium is noted throughout the colon. Mildly distended/dilated small bowel loops, however, overall bowel gas pattern is nonobstructive. 3. No acute osseous abnormality is identified. D/ / 12/19/2017 14:50:56 Ramiro Culp MD / Ida Gonzales Interpreting Provider: Ramiro Culp MD Pelvis X-Ray 12/19/17 11:49 IMPRESSION: 1. Aortobi-iliac stent graft. Multiple coils within right hemipelvis. 2. Barium is noted throughout the colon. Mildly distended/dilated small bowel loops, however, overall bowel gas pattern is nonobstructive. 3. No acute osseous abnormality is identified. D/ / 12/19/2017 14:50:56 Ramiro Culp MD / Ida Gonzales Interpreting Provider: Ramiro Culp MD Consult Discharge Plan - Plan Referrals: Peter Carlson MD [Primary Care Provider] -
[2017-12-20] MEDS ORDERED: SODIUM CHLORIDE/NAHCO3/KCL/PEG 4,000 ML SOLN.RECON PO ONE (17:00)
[2017-12-20] MEDS: tiZANidine 4 MG TABLET PO SCH (20:21)
[2017-12-20] MEDS: Topiramate 25 MG TABLET PO SCH (20:21)
--- NOTE | 2017-12-20 22:09 | Anesthesia Evaluation PreOp ---
Date of Encounter: 12/20/17 Time of Encounter: 22:07 - Past History Planned Operation: R-temporal Artery Bx Cardiac History: MD, HTN (maintained on Metoprolol, Lisinopril, Imdur, Norvasc) , Hyperlipidemia (maintained on Atrovastatin), Arrhythmia (Paroxysmal AFib anticoagulated on Warfarin, ASA), Cardiac Surgery (CABG x 3v), Cardiac Stent ( MINDA placed in Distal Cx 09/08/2017 -), Other (ECHO 08/18/2017 - 0013 EV/EV echocardiogram Impressions: LVEF 55%. Mild- moderate concentric left ventricular hypertrophy. Mild left ventricular diastolic dysfunction. Normal right ventricular structure and function. Mild mitral regurgitation. Mild tricuspid regurgitation. No pulmonary hypertension. Left Ventricular Wall Motion: Rest Echo Findings All wall segments showed normal motion.....................................L Heart Cath 09/08/2017 - LEFT HEART CATH W/ GRAFTS Aortic Root Injection Stent w/ PTCA Single Major Vessel (distal LCx MINDA Synergy) Indications: Acute coronary syndrome Impressions: There is severe three vessel coronary artery disease. The left ventricle has normal contractility EF 50% Patient had successful PTCA/Drug-Eluting Stent placement in the distal Circ. S/P CABG 1 of 3 patent bypass grafts. Left to Right collaterals seen to RPDA. 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 Anxiety/Depression maintained on Wellbutrin, Zoloft) Other Medical History: Diabetes Type II (maintained on Lantus, Metformin,), Thyroid (maintained on Synthroid), GERD (maintained on Omeprazole, Phenergan), Other (BPH maintained on Tamsulosin) Anesthesia History: No Prior Anesthetic Complications, Past Anesthesia (EGD on ,) Alcohol Use: none Drug use: none Medications and Allergies Omeprazole [PriLOSEC] 20 mg PO QAM 06/11/15 [History] Tamsulosin [Flomax] 0.4 mg PO QAM 06/11/15 [History] Lisinopril 10 mg PO BID 08/10/15 [History] Insulin Glargine,Hum.rec.anlog [Lantus Solostar] 20 unit SQ QAM 12/09/15 [ History] Acetaminophen/Butalbital/Caffe [Fioricet] 1 tab PO DAILY PRN 05/14/17 [History] Gabapentin [Neurontin] 300 mg PO BID 05/14/17 [History] Promethazine [Phenergan] 25 mg PO Q6HR PRN 05/14/17 [History] Warfarin [Coumadin] 5 mg PO SUWETHFRSA 05/15/17 [History] Aspirin Enteric Coated [Aspirin EC] 81 mg PO DAILY 08/17/17 [History] Atorvastatin Calcium [Lipitor] 80 mg PO HS 08/17/17 [History] Levothyroxine Sodium [Synthroid] 300 mcg PO QAM 08/17/17 [History] Nitroglycerin 0.4 mg SL Q5MIN PRN #14 tab.subl 08/22/17 [Rx] Metoprolol [Lopressor] 12.5 mg PO BID #60 tablet 09/11/17 [Rx] Warfarin [Coumadin] 7.5 mg PO MOTU 09/25/17 [History] Isosorbide MONOnitrate (24 HR) [Imdur] 30 mg PO DAILY #30 tab.er.24h 10/18/17 [ Rx] Tizanidine HCl [Zanaflex] 2 mg PO HS #15 cap 11/27/17 [Rx] BuPROPion XL (24 HR) [Wellbutrin XL] 150 mg PO DAILY 12/16/17 [History] Cyclobenzaprine HCl 5 mg PO HS 12/16/17 [History] Ezetimibe [Zetia] 10 mg PO DAILY 12/16/17 [History] Metformin HCl [Metformin HCl ER] 500 mg PO DAILY 12/16/17 [History] Sertraline [Zoloft] 100 mg PO DAILY 12/16/17 [History] Topiramate [Topamax] 50 mg PO HS 12/16/17 [History] amLODIPine [Norvasc] 5 mg PO DAILY 12/16/17 [History] 3 Allergy/AdvReac Type Severity Reaction Status Date / Time No Known Allergies Allergy Verified 12/05/17 16:39 - Meds/Allergy Pre-op Review Medications Reviewed: Yes Allergies Reviewed: Yes Beta Blockers on Current Med List: Yes (Metoprolol) If Beta Blockers taken, Date/Time (Last Dose taken): not given on 12/20/2017 MAR Anesthesia Results - Labs 12/18/17 06:51 12/18/17 06:51 Laboratory Results Impressions Head CT 12/16/17 13:39 IMPRESSION: Overall stable examination without convincing evidence for acute intracranial pathology. D/ / Victor Hugo Benito MD / Victor Hugo Benito MD Interpreting Provider: Victor Hugo Benito MD Brain MRI 12/16/17 15:57 IMPRESSION: Chronic involutional changes. Old infarcts as above. D/ / Elijah Gatica MD / Elijah Gatica MD Interpreting Provider: Elijah Gatica MD Lumbar Spine MRI 12/16/17 15:57 IMPRESSION: 1. Multilevel degenerative changes of the lumbar spine, with spinal canal stenosis most severe at L2-L3, as detailed above. Multiple levels of moderate to severe neural foraminal stenosis as detailed above. 2. Small amount of fluid signal within L2-L3 intervertebral disc, with adjacent vertebral body marrow edema. There is suggestion of endplate changes. On the previous CT examination on 10/16/2017, there was a gas within this disc space. Findings likely represent advanced degenerative changes, however, this should be correlated with any clinically concern for early discitis osteomyelitis. 3. Possible small area of enhancement within spinal canal at T12 vertebral level within the spinal canal. This appeared to be associated with conus. This is only seen on sagittal sequences, as axial sequences do not extend to thoracic spine. This is probably prominent vascular structure/vein, however, pathologic vascular enhancement from leptomeningeal process, including infectious and inflammatory process cannot be excluded. Follow-up thoracic spine examination may be obtained for more complete evaluation. D/ / 12/16/2017 18:07:00 Ramiro Culp MD / anthony Interpreting Provider: Ramiro Culp MD Cervical Spine MRI 12/17/17 12:42 IMPRESSION: Multilevel disc osteophyte complex results in multilevel mild central canal narrowing and neural foraminal narrowing as detailed level by level above. D/ / Bernabe Grimes MD / Bernabe Grimes MD Interpreting Provider: Bernabe Grimes MD Thoracic Spine MRI 12/17/17 12:42 IMPRESSION: T9-10 central disc protrusion without significant canal compromise. Mild multilevel degenerative changes. D/ / Bernabe Grimes MD / Bernabe Grimes MD Interpreting Provider: Bernabe Grimes MD Videofluoroscopic Swallow 12/18/17 00:00 IMPRESSION: 1. No evidence of aspiration. No barium was identified within the stoma throughout the course of the exam. 2. Penetration with thin barium. 3. Delayed clearance throughout the esophagus with mild distal esophageal dilatation. The patient may benefit from an upper GI series for further evaluation. Please see separate speech pathology report for full discussion of findings and recommendations. D/ / 12/18/2017 11:13:37 Qamar Solomon MD / ray Interpreting Provider: Qamar Solomon MD Upper GI Series 12/18/17 12:28 IMPRESSION: 1. No evidence of esophageal obstruction. 2. Tertiary contractions indicative of esophageal dysmotility. 3. Small amount of gastroesophageal reflux. D/ / 12/18/2017 14:38:54 Qamar Solomon MD / ajit Interpreting Provider: Qamar Solomon MD Abdomen X-Ray 12/19/17 11:43 IMPRESSION: 1. Aortobi-iliac stent graft. Multiple coils within right hemipelvis. 2. Barium is noted throughout the colon. Mildly distended/dilated small bowel loops, however, overall bowel gas pattern is nonobstructive. 3. No acute osseous abnormality is identified. D/ / 12/19/2017 14:50:56 Ramiro Culp MD / Ida Gonzales Interpreting Provider: Ramiro Culp MD Pelvis X-Ray 12/19/17 11:49 IMPRESSION: 1. Aortobi-iliac stent graft. Multiple coils within right hemipelvis. 2. Barium is noted throughout the colon. Mildly distended/dilated small bowel loops, however, overall bowel gas pattern is nonobstructive. 3. No acute osseous abnormality is identified. D/ / 12/19/2017 14:50:56 Ramiro Culp MD / Ida Gonzales Interpreting Provider: Ramiro Culp MD - Imaging EKG: image reviewed (EKG dated 12/16/2017 - 76bpm SINUS RHYTHM BORDERLINE LEFT AXIS DEVIATION [QRS AXIS < -20] MODERATE INTRAVENTRICULAR CONDUCTION DELAY [110 + ms QRS DURATION] MINIMAL ST DEPRESSION [0.025+ mV ST DEPRESSION] Electronically Signed On 12-19-2017 20:00:[address]) Additional studies: ECHO 08/18/2017 - EV/EV echocardiogram Impressions: LVEF 55%. Mild- moderate concentric left ventricular hypertrophy. Mild left ventricular diastolic dysfunction. Normal right ventricular structure and function. Mild mitral regurgitation. Mild tricuspid regurgitation. No pulmonary hypertension. Left Ventricular Wall Motion: Rest Echo Findings All wall segments showed normal motion. Anesthesia Exam Vital Signs Temp Pulse Resp BP Pulse Ox 12/20/17 19:45 97.4 F L 62 14 121/71 97 12/20/17 15:56 97.2 F L 64 18 118/64 96 12/20/17 11:32 97.7 F 56 16 129/69 92 12/20/17 09:00 93 12/20/17 07:28 97.8 F 58 20 102/60 93 12/20/17 03:51 97.7 F 85 16 123/60 96 12/19/17 23:52 97.9 F 66 15 101/69 92 Intake and Output 12/20/17 12/20/17 12/20/17 07:59 15:59 23:59 Intake Total 0 / 0 490 / 490 Output Total 680 / 680 450 / 450 Balance -680 / -680 490 / 490 -450 / -450 Intake: IV Fluids 250 / 250 Vancocin 750 MG In 0.9 % Sodium 250 / 250 Chloride 250 ML @ 250 mls/hr IVPB Q12H [facility] Rx#:[id number] Oral 0 / 0 240 / 240 Output: Straight Cath 680 / 680 450 / 450 Other: Meal Breakfast Percent of Meal Consumed 85% Weight 81.42 kg Blood Glucose* 192 164 Patient Weight 12/20/17 23:59 Weight 81.42 kg Height: 5'9" Weight: 179# BMI = 26.5 - HEENT Pupil (Motor): Pupils equal, EOMI Mallampati: Trach (mature stoma) Teeth: Edentulous Oral Opening: Less than or equal to 3 - APARTMENT COMMUNITY MANAGER LOC: Oriented APARTMENT COMMUNITY MANAGER Motor: Normal RUE, Normal LUE, Normal RLE, Normal LLE, Normal Face APARTMENT COMMUNITY MANAGER Sensory: Normal: RUE, LUE, LLE, Face, Deficit: RLE (Diabetic Neuropathy) - Cardiac Rhythm: Regular Murmur: None - Pulmonary Breath Sounds: bilateral Clear Respiratory Effort: Symmetrical Anesthesia Assess/Plan ASA Score: 3 Modified [place] Scale for Level of Consciousness: Cooperative, oriented, and tranquil Anesthetic Plan: General Monitoring Plan: Standard Monitors Recovery Plan: PACU
[2017-12-21] MEDS: Insulin LISPRO 300 UNITS/3 ML VIAL SQ SCH ×5 (00:31→18:03)
[2017-12-21 02:55] LABS: Hematocrit 30.3 % (37.5-50.1); Mean Corpuscular HGB Conc 31.7 g/dL (31.6-35.5); Mean Corpuscular Hemoglobin 27.5 pg (28.0-33.3); Mean Corpuscular Volume 86.8 fL (83.0-100.0); Mean Platelet Volume 9.3 fL (9.4-12.4); Platelet Count 314 K/mcL (140-400); Red Blood Count 3.49 M/mcL (4.19-5.50); Red Cell Distribution Width 14.1 % (11.5-14.5)
[2017-12-21 02:58] LABS: Hemoglobin 9.6 g/dL (12.9-16.9)
[2017-12-21 03:00] LABS: INR 2.3; Prothrombin Time 25.4 Seconds (9.4-12.1)
[2017-12-21 03:13] LABS: BUN/Creatinine Ratio 37 (6-26); Blood Urea Nitrogen 38 mg/dL (8-23); Carbon Dioxide 24 mEq/L (23-29); Chloride 105 mEq/L (98-107); Glucose 191 mg/dL (70-105); Osmolality,Calculated 290 (280-300); Potassium 4.7 mEq/L (3.5-5.1); Sodium 133 mEq/L (136-145); eGFR For African Americans > 60 (> 60); eGFR For Non-African Americans > 60 (> 60)
[2017-12-21] MEDS ORDERED: cefOXitin 1,000 MG, 0.9 % Sodium Chloride 1,000 ML IR ONE ×2 (06:00→19:15)
[2017-12-21] MEDS: amLODIPine 5 MG TABLET PO SCH (08:14)
[2017-12-21] MEDS: BuPROPion XL (24 HR) 150 MG TABLET PO SCH (08:14)
[2017-12-21] MEDS: Gabapentin 300 MG CAPSULE PO SCH ×2 (08:14→21:01)
[2017-12-21] MEDS: Isosorbide MONOnitrate (24 HR) 30 MG TAB.ER.24H PO SCH (08:14)
[2017-12-21] MEDS: predniSONE 20 MG TABLET PO SCH (08:14)
[2017-12-21] MEDS: Aspirin Enteric Coated 81 MG Tablet PO SCH (08:14)
[2017-12-21] MEDS ORDERED: levoFLOXacin 750 MG TABLET PO SCH (09:00)
--- NOTE | 2017-12-21 10:14 | Oncology Inp Progress Note ---
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 Guillaume ENT. I have arranged to have his PET scan rescheduled for 12/27 since it cannot be performed this week due to inpatient admission. He will need adequate hyperglycemic control upon discharge in the presence of high dose steroids so he may undergo PET. He has a followup with Dr. Alexandre in medical oncology following his PET Neurology has signed off, neurologic symptoms back to baseline [facility] consulted regarding spine MRI results-Dr. Solares feels as though results of MRI spine correlate with artifact from aortic artery graft and recommend no medical intervention with continued monitoring, he will plan to see patient as an outpatient GI consult-He had EGD today which revealed abnormal esophageal motility, findings suggestive of chronic duodenitis and findings suggestive of gastroparesis. He is planned for colonoscopy tomorrow, GI is following. Would defer recommendation for need for medical management of gastroparesis to GI team, may consider RD consult for dietary modification recommendations if needed. I have notified our outpatient RD to continue to monitor patient on outpatient basis. 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 Rheumatology consult appreciated. Vascular to perform temporal artery biopsy today. He has started high dose steroids of 60 mg prednisone daily. Discussed side effects/adverse effects associated with high dose steroids. He is taking prilosec. He continues to report headache pain rated as about a 6/10 which he states is unchanged, however, patient appears to be visibly more comfortable than on admission, and had rated his pain as 9-10/10 on admission. Will continue to monitor and await biopsy results. He is now found to have a UTI which may be contributing to his elevated ESR/CRP Oncology: Subj Interval history: Mr. Salmeron reports that he is feeling lousy today. He has had little to eat/ drink due to his procedural prep. He states he has been drinking water and able to drink recently without reflux. He is prepping for his colonoscopy today. He has multiple family members visiting with him - Constitutional Vitals: Vital Signs Temp Pulse Resp BP Pulse Ox 12/21/17 06:41 97.7 F 62 15 150/70 94 12/21/17 03:32 97.5 F L 65 14 131/62 96 12/20/17 23:59 97.6 F 59 16 145/69 94 12/20/17 19:45 97.4 F L 62 14 121/71 97 12/20/17 15:56 97.2 F L 64 18 118/64 96 12/20/17 11:32 97.7 F 56 16 129/69 92 Intake and Output 12/20/17 12/21/17 12/21/17 23:59 07:59 15:59 Intake Total 750 / 750 Output Total 875 / 875 375 / 375 Balance -125 / -125 -375 / -375 Intake: Oral 750 / 750 Output: Straight Cath 875 / 875 375 / 375 Other: Stool Size Moderate Moderate Stool Consistency liquid liquid Stool Characteristics Normal for Patient Stool Color Brown Brown # Bowel Movements 1 # Bowel Movement Diapers 1 Weight 82.327 kg Blood Glucose* 199 142 Patient Weight 12/21/17 23:59 Weight 82.327 kg General appearance: cooperative, no acute distress, no febrile - Head Head exam: Present: atraumatic - ENT ENT exam: Present: mucous membranes moist - Respiratory Respiratory exam: Present: CTAB. Absent: respiratory distress - Cardiovascular Cardiovascular exam: Present: RRR, +S1, +S2 - GI/Abdominal GI/Abdominal exam: Present: normal bowel sounds, soft. Absent: tenderness - Extremities Exam Extremities exam: Present: normal inspection. Absent: calf tenderness - Neurological Exam Neurological exam: Present: alert, oriented X3, no focal deficits, strengths equal and symetr throughout - Psychiatric Psychiatric exam: Present: normal affect, normal mood - Skin Skin exam: Present: normal color, warm Oncology: Obj Data - Labs CBC & Chem 7: 12/21/17 02:36 12/21/17 02:36 - ABG Interpretation ABG results: PT/INR, D-dimer PT 25.4 Seconds (9.4-12.1) H 12/21/17 02:36 Consult Discharge Plan - Plan Referrals: Peter Carlson MD [Primary Care Provider] -
[2017-12-21] MEDS: (Ezetimibe [Zetia] 10 MG) PO SCH (10:29)
[2017-12-21] MEDS ORDERED: Lidocaine 1% 20 ML MDV ONE (11:06)
[2017-12-21] MEDS ORDERED: CeFAZolin Syr 2,000MG/20 ML 2,000 MG/20 ML SYRINGE IVPB ONE (11:30)
[2017-12-21] MEDS ORDERED: CeFAZolin Syringe 2,000MG/20 ML SYR IVPB ONE (11:30)
--- NOTE | 2017-12-21 11:49 | Rheumatology Progress Note ---
Date of Encounter: 12/21/17 Time of Encounter: 08:00 Rheumatology Assess and Plan (1) Other headache syndromes Current Visit: Yes Status: Chronic Return of headache though less severe. Unclear if this is myofascial or inflammatory in nature. Temporal artery biopsy pending. He did have a straight cath sample of urine with pseudomonas and this is possible that it contributed to ESR and symptoms overall. Await biopsy; for now continue prednisone and pending results and clinical response will discuss tapering as an outpatient. Continue prednisone 60. Of note, I did update his PCP Dr. Carlson, patient needs close follow-up with myself and his PCP. I will return to the hospital on Monday and will round if patient is still present. 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 UTI could be contributing. Working up inflammatory vasculitis. (3) Warfarin anticoagulation Current Visit: Yes Status: Acute (4) On prednisone therapy Current Visit: Yes Status: Acute On PPI, patient needs close monitoring of blood glucose as outpatient. (5) Abnormal urinalysis Current Visit: Yes Status: Acute Discussed with primary team that this may be reflective of UTI; treatment per their discretion - Subjective Interval history: Patient seen and examined. Reports his headache has returned, less severe but over the top of his head. Mild scalp sensitivity. He has no new rashes, no tongue pain, no throat burning, no vision changes. Otherwise ROS negative. Exam Exam: General - Alert and oriented x 3, no acute distress HEENT - Tracheostomy, no scalp tenderness, no periorbital erythema Heart - S1S2 RRR without murmurs or extra heart sounds Lungs - Anterior exam clear to auscultation Objective Data 12/21/17 02:36 12/21/17 02:36 All other labs normal. Consult Discharge Plan - Plan Referrals: Peter Carlson MD [Primary Care Provider] -
[2017-12-21] MEDS ORDERED: ceFAZolin 1,000 MG, Sodium Chloride IRRigation 1,000 ML IR ONE (12:00)
[2017-12-21] MEDS ORDERED: Lidocaine -MPF 2% 2 ML VIAL ONE (12:23)
[2017-12-21] MEDS ORDERED: *HR* Propofol 200 MG/20 ML VIAL IVP ONE (12:23)
[2017-12-21] MEDS ORDERED: *HR* FentaNYL (PF) 100 MCG/2 ML VIAL ONE (12:23)
[2017-12-21] MEDS ORDERED: Lacri-Lube 3.5 GM TUBE ONE (12:40)
[2017-12-21] MEDS ORDERED: EPHEDrine 50 MG/ML VIAL ONE (12:57)
[2017-12-21] MEDS ORDERED: *HR* PHENYLEPHRINE 1,000 MCG/10 ML SYRINGE IVP ONE (13:01)
[2017-12-21] MEDS ORDERED: MORPHINE SUL Oral CONC 10 MG/0.5 ML ORAL.SYG SL PRN ×2 (13:27→19:15)
--- NOTE | 2017-12-21 13:42 | Operative Note ---
Date of procedure: 12/21/17 Pre-op diagnosis: headache/temporal arteritis Post-op diagnosis: same Procedure: right temporal artery biopsy Complications: 0 Anesthesia: GETA Surgeon: Ashwin Mondragon Was there an certified surgical first assistant present: No Estimated blood loss (cc): 4 Specimen: right temp artery biopsy Condition: stable Disposition: PACU Procedure in Detail: History Jordi Salmeron is a 77-year-old white male who has multiple medical problems. He was originally admitted this hospitalization because of lower extremity issues. A sedimentation rate was obtained which was markedly elevated 119. He also complained of headaches and jaw pain on the right side. Rheumatology was consult. It was thought the patient may have temporal arteritis and so therefore temporal artery biopsy was requested. Procedure After informed consent was obtained patient was taken to the operating room. General anesthesia was established. The patient does have a permanent tracheostomy. The right side of the scalp was prepped and draped. Doppler was used to identify the course of the superficial temporal artery and the right scalp. Incision was made over the course of the vessel. Dissection was carried down to the artery. The artery had minimal pulsations though it was normal in diameter. It appeared carotic. Controls obtained proximally and distally. The vessels ligated and then a segment was excised for biopsy. The wound was irrigated. Hemostasis achieved. Local anesthetic was infiltrated into the wound edges. The wound was then closed in layers and Steri-Strips applied to the skin. Tegaderm was placed over the skin edges. There were no intraoperative complications. The patient tolerated the procedure well. The patient was extubated in the operating room. He was taken to the recovery room in stable condition.
--- NOTE | 2017-12-21 15:54 | Neurology Progress Note ---
<Keyshawn Mendez - Last Filed: 12/21/17 15:51> Date of Encounter: 12/21/17 Time of Encounter: 13:00 Assessment and Plan (1) Leg weakness, bilateral Current Visit: Yes Status: Acute Mr. Salmeron 77-year-old gentleman with multiple medical problems including previous right lower extremity weakness presented with left lower extremity weakness which was new. Upon evaluation he does not appear to demonstrate any significant weakness in his left lower extremity. He does demonstrate some mild right lower extremity weakness compared to his left which she has been chronic. MRI of brain negative for SOFTWARE ASSET MANAGER pathology. MRI of the lumbar spine demonstrated concerning findings for narrowing and small amount of fluid signal within the L2-L3 intravertebral disc space. There is a possibility that the area of the spinal canal may be contributing to his current intermittent symptoms. Would recommend discussion with or so spine for further evaluation. Orders for MRI of the cervical spine and thoracic spine are pending. 12/19/17: No acute changes compared to yesterday, MRI of the cervical spine and thoracic spine were completed with the cervical spine demonstrating multilevel disc osteophyte complex results in multilevel mild central canal narrowing and neural foraminal narrowing. The thoracic spine demonstrated T9-T10 central disc protrusion without significant canal compromise. It appears that a majority of his symptoms in his lower extremities are associated with his lumbar findings. Awaiting further evaluation recommendations per orthospine. 12/20/17: No acute changes compared to yesterday, patient feels slightly better compared to yesterday. No changes from neurology standpoint. 12/21: No acute changes, patient stable, no additions to current care. Subjective Interval history: Mr. Salmeron 77-year-old male seen about the patient bedside. He is alert awake interactive no acute distress. No acute neurologic changes overnight. He says that he is doing well tolerated temporal artery biopsy today. No neurologic changes with walking or strength. No concerns at this time. 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, hip flexors, tibialis Anterior, quadriceps, toe extension (EHL), plantarflexion Motor examination - left side: 02/17: deltoids, biceps, triceps, wrist flexion, wrist extension, hip flexors, 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, quadriceps, tibialis Anterior, toe extension (EHL), plantarflexion Sensation intact: Present: intact Reflexes: Biceps: 2+, Triceps: 2+, Brachioradialis: 2+, Patella: 2+, Achilles: 2 + Mental Status Examination: Present: awake, alert, oriented to person, oriented to place, oriented to time, follows commands appropriately, answers questions appropriately, no agnosia, no aphasia, no aproxia, lucid Cranial nerve examination: Present: PERRL, EOMI, sensory to face intact, mastication intact, no facial asymmetry is present, no dysarthria, hearing is intact symmetrically, soft palate elevates bilaterally upon phonation, flexes SCM and trapezius muscles symmetrically with full power, tongue protrudes midline, no atrophy or facial fasiculations present Results - Laboratory Findings CBC and BMP: 12/21/17 02:36 12/21/17 02:36 Abnormal lab findings: Abnormal lab results RBC 3.49 M/mcL (4.19-5.50) L 12/21/17 02:36 Hgb 9.6 g/dL (12.9-16.9) L D 12/21/17 02:36 Hct 30.3 % (37.5-50.1) L 12/21/17 02:36 MCH 27.5 pg (28.0-33.3) L 12/21/17 02:36 MPV 9.3 fL (9.4-12.4) L 12/21/17 02:36 ESR 119 mm/hr (0-10) H 12/18/17 17:50 PT 25.4 Seconds (9.4-12.1) H 12/21/17 02:36 APTT 36.7 Seconds (26.0-36.0) H 12/17/17 07:32 Sodium 133 mEq/L (136-145) L 12/21/17 02:36 BUN 38 mg/dL (8-23) H 12/21/17 02:36 BUN/Creatinine Ratio 37 (6-26) H 12/21/17 02:36 Glucose 191 mg/dL (70-105) H 12/21/17 02:36 POC Glucose 162 (58-89) H 12/21/17 11:44 Alkaline Phosphatase 109 Units/L (34-104) H 12/17/17 07:32 C-Reactive Protein 91 mg/L (Less than 10) H 12/18/17 17:50 Albumin 3.4 g/dL (3.5-5.7) L 12/17/17 07:32 Globulin 3.9 g/dL (2.4-3.5) H 12/17/17 07:32 Albumin/Globulin Ratio 0.9 (1.1-2.2) L 12/17/17 07:32 Urine Clarity Cloudy (Clear) A 12/20/17 06:20 Urine Nitrite Positive (Negative) A 12/20/17 06:20 Ur Leukocyte Esterase Moderate (Negative) H 12/20/17 06:20 Urine Microscopic WBC 30-50 per hpf (0-3) H 12/20/17 06:20 Ur Culture Indicated? YES (NO) A 12/20/17 06:20 Vancomycin Trough 21.2 mcg/mL (10-20) H* 12/18/17 17:50 Consult Discharge Plan - Plan Referrals: [facility] [Provider Group] - 12/29/17 10:00 am Peter Carlson MD [Primary Care Provider] - <Ale Goff I - Last Filed: 12/21/17 16:31> Date of Encounter: 12/21/17 Assessment and Plan (1) Headache Current Visit: No Status: Acute Patient is scheduled for temporal artery biopsy today already on steroids today continued to complain about the headaches as he was having previously suggest continue follow the recommendations from rheumatology as well as oncology service. We will follow the result of temporal artery biopsy Qualifiers: Headache type: unspecified Headache chronicity pattern: unspecified pattern Intractability: not intractable Qualified Code(s): R51 - Headache (2) Leg weakness, bilateral Current Visit: Yes Status: Acute Pt was seen and examined, my medical decision was reviewed with the Resident Physician, I agree with the documented findings, disposition and treatment plas as described except to the extent set forth below Ale Goff MD Objective - Constitutional Vitals: Temp Pulse Resp BP Pulse Ox 98.1 F 78 15 103/54 94 12/21/17 14:54 12/21/17 14:54 12/21/17 14:54 12/21/17 14:54 12/21/17 14:54 Results - Laboratory Findings CBC and BMP: 12/21/17 02:36 12/21/17 02:36 Abnormal lab findings: Abnormal lab results RBC 3.49 M/mcL (4.19-5.50) L 12/21/17 02:36 Hgb 9.6 g/dL (12.9-16.9) L D 12/21/17 02:36 Hct 30.3 % (37.5-50.1) L 12/21/17 02:36 MCH 27.5 pg (28.0-33.3) L 12/21/17 02:36 MPV 9.3 fL (9.4-12.4) L 12/21/17 02:36 ESR 119 mm/hr (0-10) H 12/18/17 17:50 PT 25.4 Seconds (9.4-12.1) H 12/21/17 02:36 APTT 36.7 Seconds (26.0-36.0) H 12/17/17 07:32 Sodium 133 mEq/L (136-145) L 12/21/17 02:36 BUN 38 mg/dL (8-23) H 12/21/17 02:36 BUN/Creatinine Ratio 37 (6-26) H 12/21/17 02:36 Glucose 191 mg/dL (70-105) H 12/21/17 02:36 POC Glucose 162 (58-89) H 12/21/17 11:44 Alkaline Phosphatase 109 Units/L (34-104) H 12/17/17 07:32 C-Reactive Protein 91 mg/L (Less than 10) H 12/18/17 17:50 Albumin 3.4 g/dL (3.5-5.7) L 12/17/17 07:32 Globulin 3.9 g/dL (2.4-3.5) H 12/17/17 07:32 Albumin/Globulin Ratio 0.9 (1.1-2.2) L 12/17/17 07:32 Urine Clarity Cloudy (Clear) A 12/20/17 06:20 Urine Nitrite Positive (Negative) A 12/20/17 06:20 Ur Leukocyte Esterase Moderate (Negative) H 12/20/17 06:20 Urine Microscopic WBC 30-50 per hpf (0-3) H 12/20/17 06:20 Ur Culture Indicated? YES (NO) A 12/20/17 06:20 Vancomycin Trough 21.2 mcg/mL (10-20) H* 12/18/17 17:50
--- NOTE | 2017-12-21 16:46 | Internal Med Progress Note ---
Date of Encounter: 12/21/17 Time of Encounter: 16:43 - Assessment and plan (1) Dysphagia Current Visit: Yes Status: Acute Assessment and plan: Patient had a modified by barium swallow and upper GI study that was completed as well. He is having difficulty swallowing pills. 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 Decreased motility of esophageal body. The distal esophagus/lower esophageal spanked her is patulous. Diffuse erythema and ptosis mucosa without bleeding was found and the entire examined stomach. Diffuse mild inflammation characterized by congestion was found in the first portion of duodenum and in the second portion of duodenum. Biopsy is contraindicated because the patient is taking anticoagulation. Suspect gastroparesis due to retained gastric contents. Continue diet as recommended by speech Department Nothing by mouth after midnight for colonoscopy per gastroenterology. Prep was completed last pm and scope was pushed to tomorrow Qualifiers: Dysphagia type: oropharyngeal phase Qualified Code(s): R13.12 - Dysphagia, oropharyngeal phase (2) Leg weakness, bilateral Current Visit: Yes Status: Acute Assessment and plan: patient originally presented to the ER with new onset of leg weakness. He has had right leg weakness in the past however he presented this time with left leg weakness, worked up as as stroke. CT and MRI of brain were negative. He does have a history of lumbar DDD. Does not appear to have any radicular type of pain He did undergo a MRI of lumbar spine with radiologist recommending to get MRI of thoracic spine for complete assessment. Continue with supportive treatment including pain medications MRI of thoracic and cervical spine reviewed PT and OT following Orthospine service consulted, Dr. Solares saw the patient and recommended flatplate of the abdomen and pelvis to evaluate his aortic repair which were obtained. He feels this correlates with the imaging seen on the MRI of the spine. He also recommends follow-up outpatient with their services pain group. MRI of lubar spine: IMPRESSION: 1. Multilevel degenerative changes of the lumbar spine, with spinal canal stenosis most severe at L2-L3, as detailed above. Multiple levels of moderate to severe neural foraminal stenosis as detailed above. 2. Small amount of fluid signal within L2-L3 intervertebral disc, with adjacent vertebral body marrow edema. There is suggestion of endplate changes. On the previous CT examination on 10/16/2017, there was a gas within this disc space. Findings likely represent advanced degenerative changes, however, this should be correlated with any clinically concern for early discitis osteomyelitis. 3. Possible small area of enhancement within spinal canal at T12 vertebral level within the spinal canal. This appeared to be associated with conus. This is only seen on sagittal sequences, as axial sequences do not extend to thoracic spine. This is probably prominent vascular structure/vein, however, pathologic vascular enhancement from leptomeningeal process, including infectious and inflammatory process cannot be excluded. Follow-up thoracic spine examination may be obtained for more complete evaluati (3) Type 2 diabetes mellitus Current Visit: Yes Status: Acute Assessment and plan: Accu-Cheks with coverage scale before meals / bedtime Hold home oral medications Qualifiers: Diabetes mellitus complication status: with unspecified complications Diabetes mellitus shelter insulin use: with shelter use Qualified Code(s) : E11.8 - Type 2 diabetes mellitus with unspecified complications; Z79.4 - custodial (current) use of insulin; Z79.4 - long term care social worker (current) use of insulin; Z79.4 - long term care social worker (current) use of insulin; Z79.4 - custodial (current) use of insulin (4) Atrial fibrillation Current Visit: Yes Status: Chronic Assessment and plan: Paroxysmal with stable heart rate Qualifiers: Atrial fibrillation type: paroxysmal Qualified Code(s): I48.0 - Paroxysmal atrial fibrillation (5) Headache Current Visit: Yes Status: Chronic Assessment and plan: Appears to be chronic/ intermittent in intensity in nature,he was seen here approximately a month ago for same complaint and was seen by neurology at that time. According to reports he was advised to follow-up as outpatient which he did not. He presented back to the ER with continued complaint of frontal headache - CT and MRI of head are negative -Neurology at that time was concerned for possible muscle contraction type headache suggesting trial Solu-Medrol with Phenergan and low-dose muscle relaxer at night.-However according to EC W reports patient did not continue treatment outpatient. He was seen by neurology again this visit who again diagnosis chronic tension-type headache and suggesting continued treatment. Continue muscle relaxers According to oncology note it appears the patient has a history of occipital headache syndrome and has been seen by Dr. 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 He was to undergo an PET scan however that was not completed due to he had elevated blood sugars. He was also referred back to Dr. 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 He continues to complain of difficulty swallowing as well as headaches. He was evaluated by speech therapy with modified barium swallow completed as well as Upper GI. Modified diet per speech Oncology following GI completed EGD today which revealed difficulty with motility of the esophagus and gastroparesis Patient has had a PET scan as an outpatient which will be scheduled next Monday, arrangement per oncology (8) DVT prophylaxis Current Visit: Yes Status: Acute Assessment and plan: Patient is on coumadin therapy which has been held for biopsy (9) Sedimentation rate elevation Current Visit: Yes Status: Acute Assessment and plan: Rheumatology was consulted to see the patient regarding possible temporal arteritis with elevated sedimentation rate. He is currently on prednisone which he will manage on an outpatient basis. Vascular surgery was consulted regarding a temporal arterial biopsy. That will be completed on Patient is in agreement. - Subjective Interval history: Patient is alert and interactive with no acute distress. Porter catheter was placed per his request as he is becoming very sore from frequent straight cathetering. He denies any urinary symptoms. He is awaiting his biopsy. He is aware that his colonoscopy will be done in the a.m. - Constitutional Vitals: Temp Pulse Resp BP Pulse Ox 98.1 F 78 15 103/54 94 12/21/17 14:54 12/21/17 14:54 12/21/17 14:54 12/21/17 14:54 12/21/17 14:54 General appearance: Present: cooperative, A&O X 3, pleasant, answers questions appropriately - Head Head exam: Present: atraumatic, normocephalic - Eye Eye exam: Present: PERRL, conjuntiva pink, sclera anicteric Pupils: Present: PERRL - Neck Neck exam general surgery: Present: supple, trachea midline. Absent: lymphadenopathy Additional comments: Tracheal stoma is intact - Respiratory Respiratory exam: Present: CTAB. Absent: accessory muscle use, rales, rhonchi, wheezes - Cardiovascular Cardiovascular exam: Present: RRR, +S1, +S2. Absent: diastolic murmur, gallop, rubs, systolic murmur - GI/Abdominal GI/Abdominal exam: Present: normal bowel sounds, soft, no peritoneal signs. Absent: distended, tenderness - Extremities Exam Extremities exam: Present: warm, radial pulses palpable and symmetrical. Absent : calf tenderness, cyanotic, pedal edema - Neurological Exam Neurological exam: Present: CN II-XII intact, oriented X3, no focal deficits. Absent: pronater drift, facial droop, speech deficit - Skin Skin exam: Present: dry, intact, normal color, warm Internal Medicine: Result - Labs CBC & Chem 7: 12/21/17 02:36 12/21/17 02:36 Labs: Short CBC 12/21/17 Range/Units 02:36 WBC 8.9 (4.3-11.1) K/mcL Hgb 9.6 L D (12.9-16.9) g/dL Hct 30.3 L (37.5-50.1) % Plt Count 314 (140-400) K/mcL BMP 12/21/17 02:36 Sodium 133 L Potassium 4.7 Chloride 105 Carbon Dioxide 24 BUN 38 H Creatinine 1.03 Glucose 191 H Calcium 9.0 - ABG Interpretation ABG results: PT/INR, D-dimer PT 25.4 Seconds (9.4-12.1) H 12/21/17 02:36 Consult Discharge Plan - Plan Referrals: [facility] [Provider Group] - 12/29/17 10:00 am Peter Carlson MD [Primary Care Provider] -
[2017-12-21] MEDS ORDERED: Dextrose Gel 15 GM/37.5 ML TUBE PO PRN ×2 (19:15)
[2017-12-21] MEDS ORDERED: Nitroglycerin 0.4 MG TAB.SUBL SL PRN (19:15)
[2017-12-21] MEDS ORDERED: Ondansetron 4 MG/2 ML VIAL IVP PRN (19:15)
[2017-12-21] MEDS ORDERED: Acetaminophen 650 MG RECTAL SUPP RC PRN (19:15)
[2017-12-21] MEDS ORDERED: D5% in Water 1,000 ML IVC PRN (19:15)
[2017-12-21] MEDS ORDERED: Naloxone 0.4 MG/ML INJ IVP PRN (19:15)
[2017-12-21] MEDS ORDERED: OXYCODONE Oral CONC 10 MG/0.5 ML ORAL.SYG SL PRN (19:15)
[2017-12-21] MEDS ORDERED: *HR* Dextrose 50 % in Water (Syg) 50 ML SYRINGE IVP PRN (19:15)
[2017-12-21] MEDS ORDERED: Acetaminophen/Butalbital/CaffeineTABLET PO PRN (19:15)
[2017-12-21] MEDS ORDERED: *HR* Warfarin 5 MG TABLET PO SCH (20:15)
[2017-12-21] MEDS ORDERED: Topiramate 25 MG TABLET PO SCH (21:00)
[2017-12-21] MEDS ORDERED: tiZANidine 4 MG TABLET PO SCH (21:00)
[2017-12-21] MEDS ORDERED: Melatonin 3 MG TABLET PO SCH (21:45)
[2017-12-22] MEDS: Insulin LISPRO 300 UNITS/3 ML VIAL SQ SCH ×3 (02:52→12:16)
--- NOTE | 2017-12-22 07:42 | Anesthesia Evaluation PreOp ---
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 STITCHER History: CVA (no residual) Other Medical History: Diabetes Type II, GERD, Other (Nasal CA, tracheostomy 9 years ago) Anesthesia History: No Prior Anesthetic Complications, Past Anesthesia (EGD) Alcohol Use: none Drug use: none Medications and Allergies Omeprazole [PriLOSEC] 20 mg PO QAM 06/11/15 [History] Tamsulosin [Flomax] 0.4 mg PO QAM 06/11/15 [History] Lisinopril 10 mg PO BID 08/10/15 [History] Insulin Glargine,Hum.rec.anlog [Lantus Solostar] 20 unit SQ QAM 12/09/15 [ History] Acetaminophen/Butalbital/Caffe [Fioricet] 1 tab PO DAILY PRN 05/14/17 [History] Gabapentin [Neurontin] 300 mg PO BID 05/14/17 [History] Promethazine [Phenergan] 25 mg PO Q6HR PRN 05/14/17 [History] Warfarin [Coumadin] 5 mg PO SUWETHFRSA 05/15/17 [History] Aspirin Enteric Coated [Aspirin EC] 81 mg PO DAILY 08/17/17 [History] Atorvastatin Calcium [Lipitor] 80 mg PO HS 08/17/17 [History] Levothyroxine Sodium [Synthroid] 300 mcg PO QAM 08/17/17 [History] Nitroglycerin 0.4 mg SL Q5MIN PRN #14 tab.subl 08/22/17 [Rx] Metoprolol [Lopressor] 12.5 mg PO BID #60 tablet 09/11/17 [Rx] Warfarin [Coumadin] 7.5 mg PO MOTU 09/25/17 [History] Isosorbide MONOnitrate (24 HR) [Imdur] 30 mg PO DAILY #30 tab.er.24h 10/18/17 [ Rx] Tizanidine HCl [Zanaflex] 2 mg PO HS #15 cap 11/27/17 [Rx] BuPROPion XL (24 HR) [Wellbutrin XL] 150 mg PO DAILY 12/16/17 [History] Cyclobenzaprine HCl 5 mg PO HS 12/16/17 [History] Ezetimibe [Zetia] 10 mg PO DAILY 12/16/17 [History] Metformin HCl [Metformin HCl ER] 500 mg PO DAILY 12/16/17 [History] Sertraline [Zoloft] 100 mg PO DAILY 12/16/17 [History] Topiramate [Topamax] 50 mg PO HS 12/16/17 [History] amLODIPine [Norvasc] 5 mg PO DAILY 12/16/17 [History] 3 Allergy/AdvReac Type Severity Reaction Status Date / Time No Known Allergies Allergy Verified 12/05/17 16:39 - Meds/Allergy Pre-op Review Medications Reviewed: Yes Allergies Reviewed: Yes Beta Blockers on Current Med List: Yes If Beta Blockers taken, Date/Time (Last Dose taken): 12/21/2017 @ 21:00 Anesthesia Results - Labs 12/21/17 02:36 12/21/17 02:36 Echocardiogram Name: Jordi Salmeron Date of Study: 08/18/2017 Impressions: LVEF 55%. Mild- moderate concentric left ventricular hypertrophy. Mild left ventricular diastolic dysfunction. Normal right ventricular structure and function. Mild mitral regurgitation. Mild tricuspid regurgitation. No pulmonary hypertension. \ LEFT HEART CATH W/ GRAFTS Aortic Root Injection Stent w/ PTCA Single Major Vessel (distal LCx MINDA Synergy) Indications: Acute coronary syndrome Impressions: There is severe three vessel coronary artery disease. The left ventricle has normal contractility EF 50% Patient had successful PTCA/Drug-Eluting Stent placement in the distal Circ. S/P CABG 1 of 3 patent bypass grafts. Left to Right collaterals seen to RPDA. Atrial fibrillation on Coumadin INR 2-3 (no history of CVA/TIA) Recommendations: Optimal medical therapy of patient's disease. Aggressive risk factor modification. Dual antiplatelet therapy with aspirin/Plavix for minimum 1 month in addition to Coumadin, DAPT optimally for 3-6 months. Then, discontinue aspirin. H * Left Anterior Descending There is a 90% stenosis in the Mid LAD. * Circumflex There is a 50% stenosis in the Mid Circumflex and 60% proximal OM There is a 20 mm long, 70-80% stenosis in the Distal Circumflex. The lesion has no thrombus present. An intervention was performed on the Distal Circumflex with a final stenosis of 0%. There were no lesion complications. The final ES flow was 3. * Right Coronary Artery There is a 100% stenosis in the Mid RCA. Additional Findings: Grafts * The saphenous vein graft to the 1st Marginal is occluded. * The saphenous vein graft to the Right PDA is occluded. * The left internal mammary graft to the Mid LAD has a 30-40% stenosis in the proximal LOMAX. Aortic root injection - no bypasses identified. No aortic aneurysm identified - Imaging EKG: report reviewed (SR) Anesthesia Exam Vital Signs/O2 Sat, Most Current Temp Pulse Resp BP Pulse Ox 97.7 F 56 18 122/69 96 12/22/17 07:04 12/22/17 07:04 12/22/17 07:04 12/22/17 07:04 12/22/17 07:04 NPO (# of Hours): > 8 hrs Pain Scale: 0 Pain Scale Used: Numeric (1 - 10) - HEENT Pupil (Motor): Pupils equal, EOMI Mallampati: Trach (mature stoma) Teeth: Edentulous Oral Opening: Greater than 3 - POSTBED STITCHER LOC: Oriented POSTBED STITCHER Motor: Normal RUE, Normal LUE, Normal RLE, Normal LLE, Normal Face POSTBED STITCHER Sensory: Normal: RUE, LUE, RLE, LLE, Face - Cardiac Rhythm: Regular Murmur: None JVD: No Carotid Bruit: No - Pulmonary Breath Sounds: bilateral Clear Respiratory Effort: Symmetrical Anesthesia Assess/Plan ASA Score: 3 Modified Fletcher Scale for Level of Consciousness: Cooperative, oriented, and tranquil Anesthetic Plan: MAC Autologous Blood: Yes Monitoring Plan: Standard Monitors Recovery Plan: Other
[2017-12-22] MEDS ORDERED: Lidocaine -MPF 2% 2 ML VIAL ONE (07:57)
[2017-12-22] MEDS ORDERED: *HR* Propofol 200 MG/20 ML VIAL IVP ONE ×2 (07:57→08:14)
[2017-12-22] MEDS ORDERED: *HR* Metformin 500 MG TABLET PO SCH (08:00)
[2017-12-22] MEDS ORDERED: levoFLOXacin 750 MG TABLET PO SCH (09:00)
[2017-12-22] MEDS ORDERED: amLODIPine 5 MG TABLET PO SCH (09:00)
[2017-12-22] MEDS ORDERED: predniSONE 20 MG TABLET PO SCH (09:00)
[2017-12-22] MEDS ORDERED: Isosorbide MONOnitrate (24 HR) 30 MG TAB.ER.24H PO SCH (09:00)
[2017-12-22] MEDS ORDERED: Aspirin Enteric Coated 81 MG Tablet PO SCH (09:00)
[2017-12-22] MEDS ORDERED: Insulin DETEMIR 100 UNIT/ML X5UNITS SQ SCH (09:00)
[2017-12-22] MEDS ORDERED: BuPROPion XL (24 HR) 150 MG TABLET PO SCH (09:00)
[2017-12-22] MEDS ORDERED: (Ezetimibe [Zetia] 10 MG) PO SCH (09:00)
[2017-12-22] MEDS: Gabapentin 300 MG CAPSULE PO SCH (09:26)
[2017-12-22 11:25] VITALS: BP 119/55
--- NOTE | 2017-12-22 11:33 | Neurology Progress Note ---
<Keyshawn Mendez - Last Filed: 12/22/17 11:31> Date of Encounter: 12/22/17 Time of Encounter: 08:45 Assessment and Plan (1) Leg weakness, bilateral Current Visit: Yes Status: Acute Mr. Salmeron 77-year-old gentleman with multiple medical problems including previous right lower extremity weakness presented with left lower extremity weakness which was new. Upon evaluation he does not appear to demonstrate any significant weakness in his left lower extremity. He does demonstrate some mild right lower extremity weakness compared to his left which she has been chronic. MRI of brain negative for [employer]ATOR pathology. MRI of the lumbar spine demonstrated concerning findings for narrowing and small amount of fluid signal within the L2-L3 intravertebral disc space. There is a possibility that the area of the spinal canal may be contributing to his current intermittent symptoms. Would recommend discussion with or so spine for further evaluation. Orders for MRI of the cervical spine and thoracic spine are pending. 12/19/17: No acute changes compared to yesterday, MRI of the cervical spine and thoracic spine were completed with the cervical spine demonstrating multilevel disc osteophyte complex results in multilevel mild central canal narrowing and neural foraminal narrowing. The thoracic spine demonstrated T9-T10 central disc protrusion without significant canal compromise. It appears that a majority of his symptoms in his lower extremities are associated with his lumbar findings. Awaiting further evaluation recommendations per orthospine. 12/20/17: No acute changes compared to yesterday, patient feels slightly better compared to yesterday. No changes from neurology standpoint. 12/21: No acute changes, patient stable, no additions to current care. 12/22: No changes over night. Patient is stable and awaiting colonoscopy today. No changes at this time from Neurology. Subjective Interval history: Mr. Salmeron 77-year-old male seen about the patient bedside. He is alert awake interactive no acute distress. No acute neurologic changes overnight. No further neurologic complaints at this time. Objective - Constitutional Vitals: Temp Pulse Resp BP Pulse Ox 97.6 F 58 18 119/55 96 12/22/17 11:23 12/22/17 11:23 12/22/17 11:23 12/22/17 11:23 12/22/17 11:23 General appearance: Present: cooperative, A&O X 3, no acute distress, answers questions appropriately - Neurological Exam Motor Examination: Present: other Motor examination - right side: 02/17: deltoids, biceps, triceps, wrist flexion, wrist extension, resident services coordinator, hip flexors, tibialis Anterior, quadriceps, toe extension (EHL), plantarflexion Motor examination - left side: 02/17: deltoids, biceps, triceps, wrist flexion, wrist extension, hip flexors, resident services coordinator, quadriceps, tibialis Anterior, toe extension (EHL), plantarflexion Sensation intact: Present: intact Reflexes: Biceps: 2+, Triceps: 2+, Brachioradialis: 2+, Patella: 2+, Achilles: 2 + Mental Status Examination: Present: awake, alert, oriented to person, oriented to place, oriented to time, follows commands appropriately, answers questions appropriately, no agnosia, no aphasia, no aproxia, lucid Cranial nerve examination: Present: PERRL, EOMI, sensory to face intact, mastication intact, no facial asymmetry is present, no dysarthria, hearing is intact symmetrically, soft palate elevates bilaterally upon phonation, flexes SCM and trapezius muscles symmetrically with full power, tongue protrudes midline, no atrophy or facial fasiculations present - VTE Documentation of Mechanical Device: Intermittent pneumatic compression device Results - Laboratory Findings CBC and BMP: 12/21/17 02:36 12/21/17 02:36 Abnormal lab findings: Abnormal lab results RBC 3.49 M/mcL (4.19-5.50) L 12/21/17 02:36 Hgb 9.6 g/dL (12.9-16.9) L D 12/21/17 02:36 Hct 30.3 % (37.5-50.1) L 12/21/17 02:36 MCH 27.5 pg (28.0-33.3) L 12/21/17 02:36 MPV 9.3 fL (9.4-12.4) L 12/21/17 02:36 ESR 119 mm/hr (0-10) H 12/18/17 17:50 PT 25.4 Seconds (9.4-12.1) H 12/21/17 02:36 APTT 36.7 Seconds (26.0-36.0) H 12/17/17 07:32 Sodium 133 mEq/L (136-145) L 12/21/17 02:36 BUN 38 mg/dL (8-23) H 12/21/17 02:36 BUN/Creatinine Ratio 37 (6-26) H 12/21/17 02:36 Glucose 191 mg/dL (70-105) H 12/21/17 02:36 POC Glucose 205 (58-89) H 12/22/17 00:12 Alkaline Phosphatase 109 Units/L (34-104) H 12/17/17 07:32 C-Reactive Protein 91 mg/L (Less than 10) H 12/18/17 17:50 Albumin 3.4 g/dL (3.5-5.7) L 12/17/17 07:32 Globulin 3.9 g/dL (2.4-3.5) H 12/17/17 07:32 Albumin/Globulin Ratio 0.9 (1.1-2.2) L 12/17/17 07:32 Urine Clarity Cloudy (Clear) A 12/20/17 06:20 Urine Nitrite Positive (Negative) A 12/20/17 06:20 Ur Leukocyte Esterase Moderate (Negative) H 12/20/17 06:20 Urine Microscopic WBC 30-50 per hpf (0-3) H 12/20/17 06:20 Ur Culture Indicated? YES (NO) A 12/20/17 06:20 Vancomycin Trough 21.2 mcg/mL (10-20) H* 12/18/17 17:50 Consult Discharge Plan - Plan Referrals: [facility] [Provider Group] - 12/29/17 10:00 am Peter Carlson MD [Primary Care Provider] - <Ale Goff I - Last Filed: 12/22/17 11:55> Date of Encounter: 12/22/17 Assessment and Plan (1) Headache Current Visit: No Status: Acute had temporal artery biposy results pending, no new findings, suggest to follow rheumatology recommendations. call if needed, thanks Ale Goff MD Qualifiers: Headache type: unspecified Headache chronicity pattern: unspecified pattern Intractability: not intractable Qualified Code(s): R51 - Headache (2) Leg weakness, bilateral Current Visit: Yes Status: Acute Objective - Constitutional Vitals: Temp Pulse Resp BP Pulse Ox 97.6 F 58 18 119/55 96 12/22/17 11:23 12/22/17 11:23 12/22/17 11:23 12/22/17 11:23 12/22/17 11:23 Results - Laboratory Findings CBC and BMP: 12/21/17 02:36 12/21/17 02:36 Abnormal lab findings: Abnormal lab results RBC 3.49 M/mcL (4.19-5.50) L 12/21/17 02:36 Hgb 9.6 g/dL (12.9-16.9) L D 12/21/17 02:36 Hct 30.3 % (37.5-50.1) L 12/21/17 02:36 MCH 27.5 pg (28.0-33.3) L 12/21/17 02:36 MPV 9.3 fL (9.4-12.4) L 12/21/17 02:36 ESR 119 mm/hr (0-10) H 12/18/17 17:50 PT 25.4 Seconds (9.4-12.1) H 12/21/17 02:36 APTT 36.7 Seconds (26.0-36.0) H 12/17/17 07:32 Sodium 133 mEq/L (136-145) L 12/21/17 02:36 BUN 38 mg/dL (8-23) H 12/21/17 02:36 BUN/Creatinine Ratio 37 (6-26) H 12/21/17 02:36 Glucose 191 mg/dL (70-105) H 12/21/17 02:36 POC Glucose 205 (58-89) H 12/22/17 00:12 Alkaline Phosphatase 109 Units/L (34-104) H 12/17/17 07:32 C-Reactive Protein 91 mg/L (Less than 10) H 12/18/17 17:50 Albumin 3.4 g/dL (3.5-5.7) L 12/17/17 07:32 Globulin 3.9 g/dL (2.4-3.5) H 12/17/17 07:32 Albumin/Globulin Ratio 0.9 (1.1-2.2) L 12/17/17 07:32 Urine Clarity Cloudy (Clear) A 12/20/17 06:20 Urine Nitrite Positive (Negative) A 12/20/17 06:20 Ur Leukocyte Esterase Moderate (Negative) H 12/20/17 06:20 Urine Microscopic WBC 30-50 per hpf (0-3) H 12/20/17 06:20 Ur Culture Indicated? YES (NO) A 12/20/17 06:20 Vancomycin Trough 21.2 mcg/mL (10-20) H* 12/18/17 17:50
--- NOTE | 2017-12-22 13:37 | Discharge Summary ---
- NOTES TO OUTPATIENT PROVIDER Notes to Outpatient Provider: await temporal arterial bx results, f/u with ENT in am as scheduled, PET scan on Monday per oncology Orders not resulted at time of discharge: Pending orders 12/21/17 13:11 Surgical Pathology [PTH] Routine 12/22/17 08:18 Surgical Pathology [PTH] Routine Date of Encounter: 12/22/17 Time of Encounter: 13:31 - Discharge Diagnosis (1) Dysphagia Priority: Primary Status: Acute Comments: Patient had a modified by barium swallow and upper GI study that was completed as well. He is having difficulty swallowing pills. 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 Decreased motility of esophageal body. The distal esophagus/lower esophageal spanked her is patulous. Diffuse erythema and ptosis mucosa without bleeding was found and the entire examined stomach. Diffuse mild inflammation characterized by congestion was found in the first portion of duodenum and in the second portion of duodenum. Biopsy is contraindicated because the patient is taking anticoagulation. Suspect gastroparesis due to retained gastric contents. Continue diet as recommended by speech Department colonoscopy per gastroenterology. Recommend low fiber diet with small frequent meals for treatment of gastroparesis as initial major Qualifiers: Dysphagia type: oropharyngeal phase Qualified Code(s): R13.12 - Dysphagia, oropharyngeal phase (2) Leg weakness, bilateral Priority: Primary Status: Acute Comments: patient originally presented to the ER with new onset of leg weakness. He has had right leg weakness in the past however he presented this time with left leg weakness, worked up as as stroke. CT and MRI of brain were negative. He does have a history of lumbar DDD. Does not appear to have any radicular type of pain He did undergo a MRI of lumbar spine with radiologist recommending to get MRI of thoracic spine for complete assessment. Continue with supportive treatment including pain medications MRI of thoracic and cervical spine reviewed PT and OT following, recommended follow-up services the patient refused Orthospine service consulted, Dr. Solares saw the patient and recommended flatplate of the abdomen and pelvis to evaluate his aortic repair which were obtained. He feels this correlates with the imaging seen on the MRI of the spine. He also recommends follow-up outpatient with their services pain group. MRI of lubar spine: IMPRESSION: 1. Multilevel degenerative changes of the lumbar spine, with spinal canal stenosis most severe at L2-L3, as detailed above. Multiple levels of moderate to severe neural foraminal stenosis as detailed above. 2. Small amount of fluid signal within L2-L3 intervertebral disc, with adjacent vertebral body marrow edema. There is suggestion of endplate changes. On the previous CT examination on 10/16/2017, there was a gas within this disc space. Findings likely represent advanced degenerative changes, however, this should be correlated with any clinically concern for early discitis osteomyelitis. 3. Possible small area of enhancement within spinal canal at T12 vertebral level within the spinal canal. This appeared to be associated with conus. This is only seen on sagittal sequences, as axial sequences do not extend to thoracic spine. This is probably prominent vascular structure/vein, however, pathologic vascular enhancement from leptomeningeal process, including infectious and inflammatory process cannot be excluded. Follow-up thoracic spine examination may be obtained for more complete evaluati (3) Type 2 diabetes mellitus Priority: Primary Status: Chronic Comments: Continue home medications Qualifiers: Diabetes mellitus usp insulin use: with joint terminal attack controller use Diabetes mellitus complication status: with unspecified complications Qualified Code(s) : E11.8 - Type 2 diabetes mellitus with unspecified complications; Z79.4 - prison (current) use of insulin; Z79.4 - intermediate accountant (current) use of insulin; Z79.4 - prison (current) use of insulin; Z79.4 - intermediate accountant (current) use of insulin (4) Atrial fibrillation Priority: Primary Status: Chronic Comments: Paroxysmal with stable heart rate continue home medications with no changes Qualifiers: Atrial fibrillation type: paroxysmal Qualified Code(s): I48.0 - Paroxysmal atrial fibrillation (5) Headache Priority: Primary Status: Chronic Comments: Appears to be chronic/ intermittent in intensity in nature,he was seen here approximately a month ago for same complaint and was seen by neurology at that time. According to reports he was advised to follow-up as outpatient which he did not. He presented back to the ER with continued complaint of frontal headache - CT and MRI of head are negative -Neurology at that time was concerned for possible muscle contraction type headache suggesting trial Solu-Medrol with Phenergan and low-dose muscle relaxer at night.-However according to EC W reports patient did not continue treatment outpatient. He was seen by neurology again this visit who again diagnosis chronic tension-type headache and suggesting continued treatment. Continue muscle relaxers According to oncology note it appears the patient has a history of occipital headache syndrome and has been seen by Dr. 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 He was to undergo an PET scan however that was not completed due to he had elevated blood sugars. He was also referred back to Dr. 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 He continues to complain of difficulty swallowing as well as headaches. He was evaluated by speech therapy with modified barium swallow completed as well as Upper GI. 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 He is currently on prednisone which he will manage on an outpatient basis. Vascular surgery was consulted regarding a temporal arterial biopsy. That was completed on Patient is in agreement. Hospital course: Mr. Salmeron is a 77 year old male who was discharged home today after very complicated hospitalization. Please see the details in the assessment and plan for details of this admission. Discharge discussed with: patient, family, nurse, social work, design center consultant - Time Spent with Patient Total time spent providing and/or coordinating discharge services: Less than 30 minutes - Discharge Medications Prescriptions: levoFLOXacin [Levaquin] 750 mg PO DAILY #5 tablet predniSONE [PredniSONE] 20 mg PO DAILY #30 tablet Home Medications: Omeprazole [PriLOSEC] 20 mg PO QAM 06/11/15 [History] Tamsulosin [Flomax] 0.4 mg PO QAM 06/11/15 [History] Lisinopril 10 mg PO BID 08/10/15 [History] Insulin Glargine,Hum.rec.anlog [Lantus Solostar] 20 unit SQ QAM 12/09/15 [ History] Acetaminophen/Butalbital/Caffe [Fioricet] 1 tab PO DAILY PRN 05/14/17 [History] Gabapentin [Neurontin] 300 mg PO BID 05/14/17 [History] Promethazine [Phenergan] 25 mg PO Q6HR PRN 05/14/17 [History] Warfarin [Coumadin] 5 mg PO SUWETHFRSA 05/15/17 [History] Aspirin Enteric Coated [Aspirin EC] 81 mg PO DAILY 08/17/17 [History] Atorvastatin Calcium [Lipitor] 80 mg PO HS 08/17/17 [History] Levothyroxine Sodium [Synthroid] 300 mcg PO QAM 08/17/17 [History] Nitroglycerin 0.4 mg SL Q5MIN PRN #14 tab.subl 08/22/17 [Rx] Metoprolol [Lopressor] 12.5 mg PO BID #60 tablet 09/11/17 [Rx] Warfarin [Coumadin] 7.5 mg PO MOTU 09/25/17 [History] Isosorbide MONOnitrate (24 HR) [Imdur] 30 mg PO DAILY #30 tab.er.24h 10/18/17 [ Rx] Tizanidine HCl [Zanaflex] 2 mg PO HS #15 cap 11/27/17 [Rx] BuPROPion XL (24 HR) [Wellbutrin Xl] 150 mg PO DAILY 12/16/17 [History] Cyclobenzaprine HCl 5 mg PO HS 12/16/17 [History] Ezetimibe [Zetia] 10 mg PO DAILY 12/16/17 [History] Metformin HCl [Metformin HCl ER] 500 mg PO DAILY 12/16/17 [History] Sertraline [Zoloft] 100 mg PO DAILY 12/16/17 [History] Topiramate [Topamax] 50 mg PO HS 12/16/17 [History] amLODIPine [Norvasc] 5 mg PO DAILY 12/16/17 [History] levoFLOXacin [Levaquin] 750 mg PO DAILY #5 tablet 12/22/17 [Rx] predniSONE [PredniSONE] 20 mg PO DAILY #30 tablet 12/22/17 [Rx] Allergies/Adverse Reactions: 3 Allergy/AdvReac Type Severity Reaction Status Date / Time No Known Allergies Allergy Verified 12/05/17 16:39 Date of admission: 12/19/17 09:13 Primary care physician: Peter Carlson MD Consults: 12/22/17 09:42 dietary consult [Consult to Nutrition] [CONS] Routine Comment: gastroparesis Consulting Provider: NUTRITION Reason for Dietary Consult: Diet Education Discharging clinician: Yudith Coreas Anticipated date of discharge: 12/22/17 - Constitutional Vitals: Temp Pulse Resp BP Pulse Ox 97.6 F 58 18 119/55 96 12/22/17 11:23 12/22/17 11:23 12/22/17 11:23 12/22/17 11:23 12/22/17 11:23 General appearance: Present: cooperative, A&O X 3, pleasant, no acute distress, answers questions appropriately - Head Head exam: Present: atraumatic, normocephalic - Eye Eye exam: Present: PERRL, conjuntiva pink, sclera anicteric Pupils: Present: PERRL - Neck Neck exam general surgery: Present: supple, trachea midline. Absent: lymphadenopathy Additional comments: Tracheal stoma intact - Respiratory Respiratory exam: Present: CTAB. Absent: accessory muscle use, rales, rhonchi, wheezes - Cardiovascular Cardiovascular exam: Present: RRR, +S1, +S2. Absent: diastolic murmur, gallop, rubs, systolic murmur - GI/Abdominal GI/Abdominal exam: Present: normal bowel sounds, soft, no peritoneal signs. Absent: distended, tenderness - Extremities Exam Extremities exam: Present: warm, radial pulses palpable and symmetrical. Absent : calf tenderness, cyanotic, pedal edema - Neurological Exam Neurological exam: Present: alert, CN II-XII intact, oriented X3. Absent: pronater drift, facial droop, speech deficit - Skin Skin exam: Present: dry, intact, normal color, warm - Patient Status Disposition: Home, Self-Care Condition: Fair Functional capacity at discharge: independent ambulation Overall status at discharge: patient is progressing back to baseline - Discharge Instructions Instructions: Prednisone (By mouth), Levofloxacin (By mouth), Colonoscopy (GEN) Follow Up With: [facility] [Provider Group] - 12/29/17 10:00 am Darvin Rodríguez DO [Partnered Physician] - 12/23/17 10:45 am Peter Carlson MD [Primary Care Provider] - 12/28/17 1:15 pm Boogie Alexandre MD [Partnered Physician] - 12/28/17 8:30 am Raman Shannon DO [Partnered Physician] - 12/29/17 10:00 am Pascual Canseco MD [Partnered Physician] - 01/04/18 7:30 am Forms: Inpatient Work/School Release Additional Instructions: f/u with ENT, Rheumatology, PCP, oncology, urology, resume self cath schedule - Diet and Activity Activity: increase activity as tolerated - VTE Documentation of Mechanical Device: Intermittent pneumatic compression device
[2017-12-22] MEDS ORDERED: Artificial Tears SOLN 15 ML BOTTLE BOTH EYES SCH (17:00)
[2017-12-25] MEDS ORDERED: *HR* Warfarin 7.5 MG TABLET PO SCH (18:00)
== END 2017-12-22 15:27 | disposition home or self-care (01) | DRG 41 ==
LOC: EMEROO 13:34 → 3BNU 13:34 → SUATTDRO 15:52 → 3BNU 17:25
PROVIDERS: ADMIT Nurse Practitioner Family; ATTEND Nurse Practitioner Family

== ENCOUNTER 2018-02-25 11:32 | Inpatient (IN) ==
[2018-02-25 12:19] LABS: Basophils % 0.2 %; Eosinophils # 0.1 K/mcL (0.0-0.6); Eosinophils % 1.1 %; Hematocrit 29.4 % (37.5-50.1); Hemoglobin 9.5 g/dL (12.9-16.9); Immature Granulocytes % 0.4 % (0-4); Lymphocytes # 0.9 K/mcL (0.6-4.6); Lymphocytes % 10.3 %; Mean Corpuscular HGB Conc 32.3 g/dL (31.6-35.5); Mean Corpuscular Hemoglobin 29.3 pg (28.0-33.3); Mean Corpuscular Volume 90.7 fL (83.0-100.0); Mean Platelet Volume 9.6 fL (9.4-12.4); Monocytes # 0.7 K/mcL (0.0-1.3); Monocytes % 7.6 %; Neutrophils # 7.2 K/mcL (1.6-8.9); Platelet Count 234 K/mcL (140-400); Red Blood Count 3.24 M/mcL (4.19-5.50); Red Cell Distribution Width 14.6 % (11.5-14.5); Segmented Neutrophils % 80.4 %
--- NOTE | 2018-02-25 12:40 | Emergency Department Note ---
Disposition Clinical Impression: Weakness, HCAP (healthcare-associated pneumonia), Decreased thyroid stimulating hormone (TSH) level Disposition: Admitted As Inpatient Condition: Fair Weakness HPI - General Chief complaint: ED Weakness Stated complaint: weakness Time Seen by Provider: 02/25/18 11:55 Source: patient Limitations: no limitations Nursing Notes Reviewed: Yes Vital Signs Reviewed: Yes - History of Present Illness HPI Narrative: 77-year-old male presents emergency Department with concerns of weakness. Patient states his left lower extremity is weak and causing him to fall. Patient states he fell once this morning will turn inability to the restroom. Last time it was normal was last night prior to going to bed. Patient has difficulty lifting his left lower extremity from the bed however he also complains of a generalized weakness. Patient states the generalized weakness is been present over the past 2-3 days. He denies fever, chills, nausea, vomiting, diarrhea. states he was recently admitted at [facility] for evaluation of possible recurrence of cancer. states he had a brain biopsy performed but does not know the results. She states she was in the hospital for 2 weeks and lost 45 pounds due to inability to tolerate by mouth intake per the significant other. Patient apparently follows Dr. Alexandre with oncology. Pain Scale: 8 - Related Data Home Medications Medication Instructions Recorded Confirmed Omeprazole [PriLOSEC] 20 mg PO QAM 06/11/15 02/25/18 Tamsulosin [Flomax] 0.4 mg PO QAM 06/11/15 02/25/18 Lisinopril 10 mg PO BID 08/10/15 02/25/18 Insulin Glargine,Hum.rec.anlog 22 unit SQ HS 12/09/15 02/25/18 [Lantus Solostar] Acetaminophen/Butalbital/Caffe 1 tab PO DAILY PRN 05/14/17 02/25/18 [Fioricet] Gabapentin [Neurontin] 100 mg PO HS 05/14/17 02/25/18 Aspirin Enteric Coated [Aspirin EC] 81 mg PO DAILY 08/17/17 02/25/18 Atorvastatin Calcium [Lipitor] 80 mg PO HS 08/17/17 02/25/18 Levothyroxine Sodium [Synthroid] 300 mcg PO QAM 08/17/17 02/25/18 BuPROPion XL (24 HR) [Wellbutrin 150 mg PO DAILY 12/16/17 02/25/18 Xl] Cyclobenzaprine HCl 5 mg PO HS 12/16/17 02/25/18 Ezetimibe [Zetia] 10 mg PO DAILY 12/16/17 02/25/18 Metformin HCl [Metformin HCl ER] 500 mg PO DAILY 12/16/17 02/25/18 Sertraline [Zoloft] 100 mg PO DAILY 12/16/17 02/25/18 Topiramate [Topamax] 50 mg PO HS 12/16/17 02/25/18 amLODIPine [Norvasc] 5 mg PO DAILY 12/16/17 02/25/18 Ciprofloxacin [Cipro] 750 mg PO BID 01/31/18 02/25/18 Metoprolol [Lopressor] 25 mg PO BID 02/25/18 02/25/18 Multivit-Min/FA/Lycopen/Lutein 1 tab PO DAILY 02/25/18 02/25/18 [Adults 50+ Multivitamin Tablet] Trazodone HCl 50 mg PO HS 02/25/18 02/25/18 Warfarin [Coumadin] 7.5 mg PO MOWEFR 02/26/18 02/26/18 Warfarin [Coumadin] 10 mg PO SUTUTHSA 02/26/18 02/26/18 Previous Rx's Medication Instructions Recorded Nitroglycerin 0.4 mg SL Q5MIN PRN #14 tab.subl 08/22/17 OxyCODONE/APAP 10/325 [Percocet 1 each PO Q6HR PRN 14 Days #56 01/08/18 10/325 MG] tablet Allergies Allergy/AdvReac Type Severity Reaction Status Date / Time No Known Allergies Allergy Verified 02/26/18 08:29 All systems ED: reviewed and negative except as stated. Review of Systems: As Per HPI Past Medical History - Past Medical History Attestation: Yes The following information was validated with the patient. Source: patient Medical history: Reports: atrial fibrillation, cancer, coronary artery disease, CVA, diabetes, hypertension, myocardial infarction, peripheral artery disease, SVT, thyroid disease Surgical history: Reports: angioplasty/stent, appendectomy, coronary bypass ( CABG), herniorrhaphy, LE vascular intervention, tracheostomy Psychiatric history: Reports: no psych history - Social History Smoking Status: Former smoker Smokeless Tobacco Status: No Alcohol use: Reports: none Drug use: Reports: none Physical Exam General: Alert and in no acute distress Skin: Warm, dry, intact Head: Normocephalic and atraumatic Neck: Supple, trachea midline and no tenderness Cardiovascular: RRR, no murmur, normal perfusion Respiratory: CTAB, no wheezing, cough, or respiratory distress Musculoskeletal: Normal strength, no tenderness, swelling or deformity GI: Soft, nontender, nondistended. Bowel sounds present Neuro: A&O to person, place, time and situation. Patient has 3 out of 5 strength of the left lower extremity compared to 5 out of 5 strength to the right lower extremity. Strength equal to the bilateral upper extremities. No cranial nerve deficits noted on exam. Psychiatric: cooperative and appropriate mood and affect. - General Limitations: no limitations General appearance: alert, in no apparent distress Course Vital Signs Temperature 99.4 F 02/25/18 11:39 Pulse Rate 95 02/25/18 11:39 Respiratory Rate 18 02/25/18 11:39 Blood Pressure 128/41 02/25/18 11:39 O2 Sat by Pulse Oximetry 90 02/25/18 11:39 Temperature 98 F 02/26/18 22:35 Pulse Rate 64 02/26/18 22:35 Respiratory Rate 17 02/26/18 22:35 Blood Pressure 117/53 02/26/18 22:35 O2 Sat by Pulse Oximetry 94 02/26/18 22:35 Oxygen Delivery Oxygen Delivery Room Air Weakness - MDM Narrative Medical decision making narrative: Patient had significantly decreased TSH which is likely from his increased use of Synthroid. This is also likely the cause of his weight loss. Patient had possible pneumonia present present on chest x-ray and will be treated for it. Patient will require further care and evaluation and will be admitted to the hospital. - Medical Records Medical records reviewed: Yes I reviewed the patient's medical records. - Lab Data Lab results reviewed: Yes I reviewed the patient's lab results. Result diagrams: 02/26/18 01:12 02/26/18 01:12 Lab Results 02/25/18 02/25/18 02/25/18 Range/Units 12:11 12:11 12:11 WBC 9.0 (4.3-11.1) K/mcL RBC 3.24 L (4.19-5.50) M/mcL Hgb 9.5 L (12.9-16.9) g/dL Hct 29.4 L (37.5-50.1) % MCV 90.7 (83.0-100.0) fL MCH 29.3 (28.0-33.3) pg MCHC 32.3 (31.6-35.5) g/dL RDW 14.6 H (11.5-14.5) % Plt Count 234 (140-400) K/mcL MPV 9.6 (9.4-12.4) fL Immature Gran % 0.4 (0-4) % Seg Neutrophils % 80.4 % Lymphocytes % 10.3 % Monocytes % 7.6 % Eosinophils % 1.1 % Basophils % 0.2 % Neutrophils # 7.2 (1.6-8.9) K/mcL Lymphocytes # 0.9 (0.6-4.6) K/mcL Monocytes # 0.7 (0.0-1.3) K/mcL Eosinophils # 0.1 (0.0-0.6) K/mcL Basophils # 0.0 (0.0-0.2) K/mcL Sodium 134 L (136-145) mEq/L Potassium 4.1 (3.5-5.1) mEq/L Chloride 103 (98-107) mEq/L Carbon Dioxide 26 (23-29) mEq/L BUN 23 (8-23) mg/dL Creatinine 0.92 (0.70-1.30) mg/dL Est GFR ( Amer) > 60 (> 60) Est GFR (Non-Af Amer) > 60 (> 60) BUN/Creatinine Ratio 25 (6-26) Glucose 114 H (70-105) mg/dL Calculated Osmolality 283 (280-300) Lactic Acid 0.8 (0.5-2.2) mmol/L Calcium 8.6 (8.6-10.3) mg/dL Total Bilirubin 0.5 (0.3-1.0) mg/dL AST 25 (13-39) Units/L ALT 29 (7-52) Units/L Alkaline Phosphatase 72 (34-104) Units/L Troponin I 0.03 (< 0.04) ng/mL B-Natriuretic Peptide (Less than 100) pg/mL Serum Total Protein 6.0 L (6.4-8.9) g/dL Albumin 3.2 L (3.5-5.7) g/dL Globulin 2.8 (2.4-3.5) g/dL Albumin/Globulin Ratio 1.1 (1.1-2.2) TSH 0.028 L (0.340-5.600) mcIU/mL Urine Color (Yellow) Urine Clarity (Clear) Urine pH (5.0-8.0) pH Units Ur Specific [place] (1.010-1.025) Urine Protein (Neg-Trace) mg/dL Urine Glucose (UA) (Normal) mg/dL Urine Ketones (Negative) mg/dL Urine Blood (Negative) Urine Nitrite (Negative) Urine Bilirubin (Negative) Urine Urobilinogen (Normal) mg/dL Ur Leukocyte Esterase (Negative) Urine Microscopic RBC (0-3) per hpf Urine Microscopic WBC (0-3) per hpf Ur Squamous Epith Cells (None-Few) per lpf Urine Bacteria (None-Few) per hpf Hyaline Casts (None-Few) per lpf Ur Culture Indicated? (NO) 02/25/18 02/25/18 Range/Units 12:11 13:11 WBC (4.3-11.1) K/mcL RBC (4.19-5.50) M/mcL Hgb (12.9-16.9) g/dL Hct (37.5-50.1) % MCV (83.0-100.0) fL MCH (28.0-33.3) pg MCHC (31.6-35.5) g/dL RDW (11.5-14.5) % Plt Count (140-400) K/mcL MPV (9.4-12.4) fL Immature Gran % (0-4) % Seg Neutrophils % % Lymphocytes % % Monocytes % % Eosinophils % % Basophils % % Neutrophils # (1.6-8.9) K/mcL Lymphocytes # (0.6-4.6) K/mcL Monocytes # (0.0-1.3) K/mcL Eosinophils # (0.0-0.6) K/mcL Basophils # (0.0-0.2) K/mcL Sodium (136-145) mEq/L Potassium (3.5-5.1) mEq/L Chloride (98-107) mEq/L Carbon Dioxide (23-29) mEq/L BUN (8-23) mg/dL Creatinine (0.70-1.30) mg/dL Est GFR ( Amer) (> 60) Est GFR (Non-Af Amer) (> 60) BUN/Creatinine Ratio (6-26) Glucose (70-105) mg/dL Calculated Osmolality (280-300) Lactic Acid (0.5-2.2) mmol/L Calcium (8.6-10.3) mg/dL Total Bilirubin (0.3-1.0) mg/dL AST (13-39) Units/L ALT (7-52) Units/L Alkaline Phosphatase (34-104) Units/L Troponin I (< 0.04) ng/mL B-Natriuretic Peptide 155 H (Less than 100) pg/mL Serum Total Protein (6.4-8.9) g/dL Albumin (3.5-5.7) g/dL Globulin (2.4-3.5) g/dL Albumin/Globulin Ratio (1.1-2.2) TSH (0.340-5.600) mcIU/mL Urine Color Yellow (Yellow) Urine Clarity Clear (Clear) Urine pH 5.5 (5.0-8.0) pH Units Ur Specific [place] 1.023 (1.010-1.025) Urine Protein Negative (Neg-Trace) mg/dL Urine Glucose (UA) Normal (Normal) mg/dL Urine Ketones Negative (Negative) mg/dL Urine Blood Negative (Negative) Urine Nitrite Negative (Negative) Urine Bilirubin Negative (Negative) Urine Urobilinogen Normal (Normal) mg/dL Ur Leukocyte Esterase Moderate H (Negative) Urine Microscopic RBC 0-3 (0-3) per hpf Urine Microscopic WBC 30-50 H (0-3) per hpf Ur Squamous Epith Cells Many H (None-Few) per lpf Urine Bacteria None Seen (None-Few) per hpf Hyaline Casts None Seen (None-Few) per lpf Ur Culture Indicated? NO. A (NO) - Radiology Data Radiology results reviewed: Yes I reviewed the patient's radiology results. - EKG Data EKG attestation: Yes I reviewed and interpreted this EKG.
[2018-02-25 12:48] LABS: Alanine Aminotransferase 29 Units/L (7-52); Albumin 3.2 g/dL (3.5-5.7); Albumin/Globulin Ratio 1.1 (1.1-2.2); Alkaline Phosphatase 72 Units/L (34-104); Aspartate Amino Transferase 25 Units/L (13-39); BUN/Creatinine Ratio 25 (6-26); Bilirubin,Total 0.5 mg/dL (0.3-1.0); Blood Urea Nitrogen 23 mg/dL (8-23); Calcium 8.6 mg/dL (8.6-10.3); Carbon Dioxide 26 mEq/L (23-29); Chloride 103 mEq/L (98-107); Globulin 2.8 g/dL (2.4-3.5); Glucose 114 mg/dL (70-105); Osmolality,Calculated 283 (280-300); Potassium 4.1 mEq/L (3.5-5.1); Sodium 134 mEq/L (136-145); Troponin I 0.03 ng/mL (< 0.04); eGFR For African Americans > 60 (> 60); eGFR For Non-African Americans > 60 (> 60)
[2018-02-25 13:12] LABS: Thyroid Stimulating Hormone 0.028 mcIU/mL (0.340-5.600)
[2018-02-25 13:29] LABS: Bilirubin,Urine Negative (Negative); Blood,Urine Negative (Negative); Clarity,Urine Clear (Clear); Color,Urine Yellow (Yellow); Glucose,Urine (UA) Normal (Normal); Ketones,Urine Negative (Negative); Leukocyte Esterase,Urine Moderate (Negative); Nitrite,Urine Negative (Negative); PH,Urine 5.5 pH Units (5.0-8.0); Protein,Urine Negative (Neg-Trace); Specific Gravity,Urine 1.023 (1.010-1.025); Urobilinogen,Urine Normal (Normal)
[2018-02-25 13:36] LABS: Bacteria,Urine None Seen per hpf (None-Few); Hyaline Casts,Urine None Seen per lpf (None-Few); RBC,Urine 0-3 per hpf (0-3); Squamous Epithelial Cell,Urine Many per lpf (None-Few); WBC,Urine 30-50 per hpf (0-3)
[2018-02-25] MEDS ORDERED: Cefepime HCl 2,000 MG in Water for inj. (sterile) 20 ML 20 ML IVP STA (14:21)
[2018-02-25] MEDS ORDERED: Azithromycin 500 MG in D5% in Water 250 ML IVPB STA (14:21)
[2018-02-25] MEDS ORDERED: Ketorolac 15 MG/ML VIAL IVP ONE (14:22)
[2018-02-25] MEDS ORDERED: Naloxone 0.4 MG/ML INJ IVP PRN (18:29)
[2018-02-25] MEDS ORDERED: Acetaminophen/Butalbital/CaffeineTABLET PO PRN (18:35)
[2018-02-25] MEDS ORDERED: Nitroglycerin 0.4 MG TAB.SUBL SL PRN (18:35)
--- NOTE | 2018-02-25 18:53 | Internal Med History&Physical ---
Date of Encounter: 02/25/18 Time of Encounter: 18:41 Internal Medicine - H&P: HPI Chief complaint: shortness of breath Admitted From: Emergency Dept Plans for Post Hospital Care: Home History of present illness: Mr. Salmeron is a 77 year old male who is a background history of diabetes mellitus, hypertension, dyslipidemia, atrial fibrillation on Coumadin, congestive heart failure, patient has a coronary artery disease and 2 stents were placed.Patient also has a previous gastric ulcer. 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 In spite of gastric ulcer, due to the multiple CVA patient is still on anticoagulation. Patient also has a nasopharyngeal cancer. Patient has been evaluated recently in the [facility] for possible brain metastasis. This patient has been admitted to this hospital multiple times and many specialties have seen this patient. Please see the detailed note from the previous admission where neurology/ gastroenterology/rheumatology/cardiology were involved. Today patient was brought in by patient's for generalized weakness along with that shortness of breath. Noted that patient has difficulty in moving her left lower extremity. Patient denies chest pain, nausea, vomiting, dizziness and diarrhea. Workup in the emergency room: Patient was evaluated in the emergency room. Basic labs were drawn. Noted that patient's TSH was extremely low. This patient is on replacement dose of Synthroid. CT scan of the brain was done. Chest x-ray was suggestive of a pneumonia. Reason for admission: This is a hospital-acquired pneumonia. Patient needs an intravenous antibiotics. Family history: Noncontributory Past Med Surg Social Fam HX - Past Medical History Medical history: atrial fibrillation, cancer, coronary artery disease, CVA, diabetes, hypertension, myocardial infarction, peripheral artery disease, SVT, thyroid disease Psychiatric history: no psych history - Past Surgical History Surgical History: angioplasty/stent, appendectomy, coronary bypass (CABG), herniorrhaphy, LE vascular intervention, tracheostomy - Social History Smoking Status: Former smoker Smokeless Tobacco Status: No Alcohol use: none Drug use: none - Family History Mother Living Status: Hx Family Cardiac Disorders: No Hx Family Respiratory Disorders: No Hx Family Cancer: No Hx Family GI Disorders: No Hx Family Endocrine Disorder: No Hx Family Neuromuscular Disorders: No Hx Family Neurologic Disorders: No Hx Family HEENT Disorders: No Hx Family Autoimmune Disorders: No Father Living Status: Hx Family Cardiac Disorders: No Hx Family Respiratory Disorders: No Hx Family Cancer: No Hx Family GI Disorders: No Hx Family Endocrine Disorder: No Hx Family Neuromuscular Disorders: No Hx Family Neurologic Disorders: No Hx Family HEENT Disorders: No Hx Family Autoimmune Disorders: No Sister Living Status: Hx Family Cancer: Yes (lung cancer) Internal Medicine - H&P: Meds Omeprazole [PriLOSEC] 20 mg PO QAM 06/11/15 [History] Tamsulosin [Flomax] 0.4 mg PO QAM 06/11/15 [History] Lisinopril 10 mg PO BID 08/10/15 [History] Insulin Glargine,Hum.rec.anlog [Lantus Solostar] 22 unit SQ HS 12/09/15 [History ] Acetaminophen/Butalbital/Caffe [Fioricet] 1 tab PO DAILY PRN 05/14/17 [History] Gabapentin [Neurontin] 100 mg PO HS 05/14/17 [History] Warfarin [Coumadin] 10 mg PO DAILY 05/15/17 [History] Aspirin Enteric Coated [Aspirin EC] 81 mg PO DAILY 08/17/17 [History] Atorvastatin Calcium [Lipitor] 80 mg PO HS 08/17/17 [History] Levothyroxine Sodium [Synthroid] 300 mcg PO QAM 08/17/17 [History] Nitroglycerin 0.4 mg SL Q5MIN PRN #14 tab.subl 08/22/17 [Rx] BuPROPion XL (24 HR) [Wellbutrin Xl] 150 mg PO DAILY 12/16/17 [History] Cyclobenzaprine HCl 5 mg PO HS 12/16/17 [History] Ezetimibe [Zetia] 10 mg PO DAILY 12/16/17 [History] Metformin HCl [Metformin HCl ER] 500 mg PO DAILY 12/16/17 [History] Sertraline [Zoloft] 100 mg PO DAILY 12/16/17 [History] Topiramate [Topamax] 50 mg PO HS 12/16/17 [History] amLODIPine [Norvasc] 5 mg PO DAILY 12/16/17 [History] OxyCODONE/APAP 10/325 [Percocet 10/325 MG] 1 each PO Q6HR PRN 14 Days #56 tablet 01/08/18 [Rx] Ciprofloxacin [Cipro] 750 mg PO BID 01/31/18 [History] Metoprolol [Lopressor] 25 mg PO BID 02/25/18 [History] Multivit-Min/FA/Lycopen/Lutein [Adults 50+ Multivitamin Tablet] 1 tab PO DAILY 02/25/18 [History] Trazodone HCl 50 mg PO HS 02/25/18 [History] 3 Allergy/AdvReac Type Severity Reaction Status Date / Time No Known Allergies Allergy Verified 02/25/18 15:45 All Systems PM: A 10-system review of systems was performed and is negative for pertinent findings except as documented above in the HPI. - Constitutional Constitutional: lethargy, malaise, weakness, no chills, no fever(s), no night sweats - EENT Eyes: no change in vision, no discharge, no pain, no photophobia Ears: no ear discharge, no ear pain, no tinnitus Nose, mouth and throat: no dysphagia, no nasal discharge, no neck pain, no sore throat - Cardiovascular Cardiovascular ROS IM: no chest pain, no diaphoresis, no dyspnea, no lightheadedness, no palpitations, no syncope - Respiratory Respiratory: no cough, no dyspnea, no wheezing, no excessive phlegm production - Gastrointestinal Gastrointestinal: no abdominal pain, no diarrhea, no hematemesis, no hematochezia, no melena, no nausea, no vomiting - Musculoskeletal Musculoskeletal ROS IM: no numbness, no tingling - Integumentary Integumentary IM: no rash, no unusual bruising - Neurological Neurological ROS: abnormal gait, focal weakness, no confusion, no convulsions, no numbness, no tingling, no tremor(s) - Hematologic/Lymphatic Hematologic/Lymphatic: no easy bruising - Constitutional Vitals: Temp Pulse Resp BP Pulse Ox 99.4 F 86 18 127/69 92 02/25/18 11:39 02/25/18 14:26 02/25/18 15:49 02/25/18 15:49 02/25/18 14:26 General appearance: Present: A&O X 3, pleasant, no acute distress, answers questions appropriately - Head Head exam: Present: atraumatic, normocephalic - Eye Eye exam: Present: PERRL, conjuntiva pink, sclera anicteric Pupils: Present: PERRL - Neck Neck exam general surgery: Present: supple, trachea midline. Absent: lymphadenopathy - Respiratory Respiratory exam: Present: CTAB. Absent: accessory muscle use, rales, rhonchi, wheezes - Cardiovascular Cardiovascular exam: Present: RRR, +S1, +S2. Absent: diastolic murmur, gallop, rubs, systolic murmur - GI/Abdominal GI/Abdominal exam: Present: normal bowel sounds, soft, no peritoneal signs. Absent: distended, tenderness - Extremities Exam Extremities exam: Present: warm, radial pulses palpable and symmetrical. Absent : calf tenderness, cyanotic, pedal edema - Neurological Exam Neurological exam: Present: CN II-XII intact, oriented X3, no focal deficits. Absent: pronater drift, facial droop, speech deficit - Skin Skin exam: Present: dry, intact Internal Med - H&P Results - Labs CBC & Chem 7: 02/25/18 12:11 02/25/18 12:11 - Assessment and plan (1) Pneumonia Current Visit: Yes Status: Acute Assessment and plan: Patient does have a right lower lobe pneumonia. This can be hospital-acquired pneumonia. We will treat him with the hospital-acquired pneumonia guidelines. Blood cultures sent. Deaccleration of the antibiotics as per the culture results and clinical improvement Qualifiers: Pneumonia type: due to unspecified organism Laterality: right Lung location: lower lobe of lung Qualified Code(s): J18.1 - Lobar pneumonia, unspecified organism (2) CAD (coronary artery disease) Current Visit: No Status: Chronic Assessment and plan: Patient is known to have a coronary artery disease. Patient has 2 stents. Patient is on appropriate medications for the same. We will closely monitor patient during this hospitalization. At this point patient is chest pain-free Qualifiers: Coronary Disease-Associated Artery/Lesion type: bypass graft [place] vs. transplanted heart: [place] heart Associated angina: with stable angina Qualified Code(s): I25.708 - Atherosclerosis of coronary artery bypass graft(s) , unspecified, with other forms of angina pectoris (3) Diabetes Current Visit: No Status: Chronic Assessment and plan: Resume home medications. 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 It is a paroxysmal in nature. 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 Patient was treated at [facility]. Patient was recently at above in situ for brain biopsy. We need records from [facility] (6) Hypertension Current Visit: No Status: Chronic Assessment and plan: Patient is known to have a essential hypertension. We will resume home medication. During this hospitalization we will closely monitor patient's blood pressure. Qualifiers: Hypertension type: essential hypertension Qualified Code(s): I10 - Essential (primary) hypertension (7) Hypothyroidism, unspecified Current Visit: No Status: Chronic Assessment and plan: Patient is known to have a hypothyroidism. Noted that previously patient's TSH was extremely high. Patient was placed on a replacement dose of Synthroid. I discussed with the patient regarding the dosage he takes for Synthroid. Patient told me that history of one tablet he takes 2 tablets every day for the past few weeks. This might be the reason why patient's TSH is extremely low. There also possibility that sick euthyroid syndrome. Qualifiers: Hypothyroidism type: other Qualified Code(s): E03.8 - Other specified hypothyroidism (8) DVT prophylaxis Current Visit: No Status: Acute Assessment and plan: Coumadin Medical decision making: This patient has a moderate to severe risk of worsening in spite of being on appropriate medication/treatment due to the underlying chronic comorbid conditions. - Time Spent With Patient Total time spent is greater than 50% in coordination of care (as documented) at patient's floor/unit and/or counseling patient:
[2018-02-25] MEDS: 0.9 % Sodium Chloride 1,000 ML IVC SCH (20:22)
[2018-02-25] MEDS: Gabapentin 100 MG CAPSULE PO SCH (20:22)
[2018-02-25] MEDS: traZODone 50 MG TABLET PO SCH (20:22)
[2018-02-25] MEDS: Topiramate 25 MG TABLET PO SCH (20:22)
[2018-02-25] MEDS: Insulin DETEMIR 100 UNIT/ML X5UNITS SQ SCH (20:22)
[2018-02-26 01:33] LABS: Basophils % 0.2 %; Eosinophils # 0.2 K/mcL (0.0-0.6); Eosinophils % 4.6 %; Hematocrit 30.8 % (37.5-50.1); Hemoglobin 9.2 g/dL (12.9-16.9); Immature Granulocytes % 0.4 % (0-4); Lymphocytes # 0.7 K/mcL (0.6-4.6); Lymphocytes % 13.8 %; Mean Corpuscular HGB Conc 29.9 g/dL (31.6-35.5); Mean Corpuscular Hemoglobin 27.5 pg (28.0-33.3); Mean Corpuscular Volume 92.2 fL (83.0-100.0); Mean Platelet Volume 10.5 fL (9.4-12.4); Monocytes # 0.5 K/mcL (0.0-1.3); Monocytes % 9.9 %; Neutrophils # 3.7 K/mcL (1.6-8.9); Platelet Count 233 K/mcL (140-400); Red Blood Count 3.34 M/mcL (4.19-5.50); Red Cell Distribution Width 14.8 % (11.5-14.5); Segmented Neutrophils % 71.1 %
[2018-02-26 01:40] LABS: INR 3.2; Prothrombin Time 34.9 Seconds (9.4-12.1)
[2018-02-26 01:48] LABS: Alanine Aminotransferase 25 Units/L (7-52); Albumin 3.1 g/dL (3.5-5.7); Albumin/Globulin Ratio 1.1 (1.1-2.2); Alkaline Phosphatase 66 Units/L (34-104); Aspartate Amino Transferase 22 Units/L (13-39); BUN/Creatinine Ratio 25 (6-26); Bilirubin,Total 0.6 mg/dL (0.3-1.0); Blood Urea Nitrogen 21 mg/dL (8-23); Calcium 8.5 mg/dL (8.6-10.3); Carbon Dioxide 24 mEq/L (23-29); Chloride 108 mEq/L (98-107); Cholesterol 113 mg/dL (< 200); Globulin 2.7 g/dL (2.4-3.5); Glucose 102 mg/dL (70-105); HDL Cholesterol 28 mg/dL (40-59); LDL Cholesterol,Calculated 70 mg/dL (0-99); Magnesium 2.1 mg/dL (1.6-2.6); Osmolality,Calculated 287 (280-300); Phosphorous 3.1 mg/dL (2.7-4.5); Sodium 137 mEq/L (136-145); Total Protein 5.8 g/dL (6.4-8.9); Triglycerides 76 mg/dL (< 150); eGFR For African Americans > 60 (> 60); eGFR For Non-African Americans > 60 (> 60)
[2018-02-26 02:02] LABS: Triiodothyronine (T3) Free 2.92 pg/mL (2.50-3.90)
[2018-02-26] MEDS: Cefepime HCl 2,000 MG in Water for inj. (sterile) 20 ML 20 ML IVP SCH ×2 (05:50→18:24)
[2018-02-26] MEDS: BuPROPion XL (24 HR) 150 MG TABLET PO SCH (07:59)
[2018-02-26] MEDS: Multivit/Ca/Min/Fe/FA 1 TAB TABLET PO SCH (07:59)
[2018-02-26] MEDS: amLODIPine 5 MG TABLET PO SCH (07:59)
[2018-02-26] MEDS: Aspirin Enteric Coated 81 MG Tablet PO SCH (07:59)
[2018-02-26] MEDS: (Ezetimibe [Zetia] 10 MG) PO SCH (08:07)
[2018-02-26] MEDS ORDERED: *HR* Dextrose 50 % in Water (Syg) 50 ML SYRINGE ONE (08:15)
[2018-02-26] MEDS ORDERED: *HR* Warfarin 5 MG TABLET PO SCH (09:00)
[2018-02-26] MEDS ORDERED: *HR* Dextrose 50 % in Water (Syg) 50 ML SYRINGE IVP ONE (11:09)
[2018-02-26] MEDS: *HR* OxyCODONE/APAP 10/325 TABLET PO PRN ×2 (12:26→18:24)
[2018-02-26] MEDS: 0.9 % Sodium Chloride 1,000 ML IVC SCH (12:27)
--- NOTE | 2018-02-26 15:46 | Internal Med Progress Note ---
Date of Encounter: 02/26/18 Time of Encounter: 09:25 - Assessment and plan (1) CAD (coronary artery disease) Current Visit: Yes Status: Chronic Assessment and plan: Chronic. Prior history of stents, LHC. Continue telemetry. Patient denies chest pain. Continue Norvasc, aspirin, Lipitor, Zestril, beta freda Qualifiers: Coronary Disease-Associated Artery/Lesion type: bypass graft [place] vs. transplanted heart: [place] heart Associated angina: with stable angina Qualified Code(s): I25.708 - Atherosclerosis of coronary artery bypass graft(s) , unspecified, with other forms of angina pectoris (2) Diabetes Current Visit: Yes Status: Chronic Assessment and plan: Accu-Cheks before meals at bedtime, Levemir 22 units subcutaneous daily at bedtime, diabetic diet. A1c 7.4% in November,. 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 History of paroxysmal A. fib Rate controlled with beta blockers. Patient denies chest pain or palpitations. Continue warfarin. Therapeutic at 3.2 INR. 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 Patient was sitting at [facility], states he does not wish to return there. We should try to obtain records from [facility] about his last visit, school community relations coordinator is working on this. Patient wishes to see oncology here and not return to [facility]. Discussed with oncology who is on the unit, will follow in the office. (5) Hypertension Current Visit: Yes Status: Chronic Assessment and plan: chronic. Continue home medications. Well controlled. Qualifiers: Hypertension type: essential hypertension Qualified Code(s): I10 - Essential (primary) hypertension (6) Hypothyroidism, unspecified Current Visit: Yes Status: Chronic Assessment and plan: Chronic. TSH low, .0.30 today. Free T4 1.909 and Free T3 2.92. Continue home medications and recheck levels when pt is no longer acutely ill. Per admission note, patient states that he has been taking 2 tablets every day for the past 2 weeks, which will alter the level, as well. Qualifiers: Hypothyroidism type: other Qualified Code(s): E03.8 - Other specified hypothyroidism (7) DVT prophylaxis Current Visit: Yes Status: Acute Assessment and plan: She takes warfarin, is therapeutic. Continue to monitor. (8) Pneumonia Current Visit: Yes Status: Acute Assessment and plan: He presented with sudden weakness, shortness of breath, onset 2 days ago. Patient reports intermittently productive cough, no chest pain, no fever or chills. Patient has no leukocytosis, no fever, no tachycardia, patient is normotensive. Patient has been treated with cefepime 2 g twice daily, vancomycin 1000 mg every 12 hours. Continue telemetry Continue O2 as needed to maintain sats greater than 92%. Guaifenesin for cough Continue to monitor labs, vital signs, patient condition. Qualifiers: Pneumonia type: due to unspecified organism Laterality: right Lung location: lower lobe of lung Qualified Code(s): J18.1 - Lobar pneumonia, unspecified organism - Time Spent With Patient Total time spent is greater than 50% in coordination of care (as documented) at patient's floor/unit and/or counseling patient: less than 15 minutes - Subjective Interval history: She was seen and assessed at 9:25 AM. He is alert, awake, oriented. He reports that he became weak 3 days ago while he was watching TV. He presented to the emergency room yesterday for admission. He denies any headache, blurred vision, nausea, vomiting, chest pain, abdominal pain. He reports just feeling short of breath and some body aches. - Constitutional Vitals: Temp Pulse Resp BP Pulse Ox 97.9 F 69 16 156/63 94 02/26/18 15:14 02/26/18 15:14 02/26/18 15:14 02/26/18 15:14 02/26/18 15:14 General appearance: Present: cooperative, A&O X 3, pleasant, no acute distress, answers questions appropriately - Head Head exam: Present: atraumatic, normal inspection, normocephalic - Eye Eye exam: Present: normal appearance, conjuntiva pink, sclera anicteric - Neck Neck exam general surgery: Present: supple, trachea midline. Absent: lymphadenopathy, tenderness - Respiratory Respiratory exam: Present: wheezes. Absent: accessory muscle use, chest wall tenderness, CTAB, rales, respiratory distress, rhonchi - Cardiovascular Cardiovascular exam: Present: RRR, +S1, +S2. Absent: diastolic murmur, gallop, rubs, systolic murmur - GI/Abdominal GI/Abdominal exam: Present: normal bowel sounds, soft. Absent: distended, hepatomegaly, tenderness - Extremities Exam Extremities exam: Present: normal capillary refill, normal inspection, warm, radial pulses palpable and symmetrical. Absent: calf tenderness, cyanotic, pedal edema - Neurological Exam Neurological exam: Present: alert, oriented X3, no focal deficits. Absent: altered, facial droop, speech deficit - Skin Skin exam: Present: dry, intact, normal color, warm. Absent: rash Internal Medicine: Result - Labs CBC & Chem 7: 02/26/18 01:12 02/26/18 01:12 Labs: Short CBC 02/26/18 Range/Units 01:12 WBC 5.2 (4.3-11.1) K/mcL Hgb 9.2 L (12.9-16.9) g/dL Hct 30.8 L (37.5-50.1) % Plt Count 233 (140-400) K/mcL Neutrophils # 3.7 (1.6-8.9) K/mcL BMP 02/26/18 01:12 Sodium 137 Potassium 4.0 Chloride 108 H Carbon Dioxide 24 BUN 21 Creatinine 0.84 Glucose 102 Calcium 8.5 L Cardiac Enzymes 02/25/18 02/26/18 Range/Units 18:55 01:12 Troponin I 0.03 < 0.03 (< 0.04) ng/mL Liver Function 02/26/18 Range/Units 01:12 Total Bilirubin 0.6 (0.3-1.0) mg/dL AST 22 (13-39) Units/L ALT 25 (7-52) Units/L Alkaline Phosphatase 66 (34-104) Units/L Albumin 3.1 L (3.5-5.7) g/dL - ABG Interpretation ABG results: PT/INR, D-dimer PT 34.9 Seconds (9.4-12.1) H 02/26/18 01:12 Consult Discharge Plan - Plan Referrals: Peter Carlson MD [Primary Care Provider] -
[2018-02-26] MEDS ORDERED: Warfarin perPT PO PRN (18:00)
[2018-02-26] MEDS ORDERED: *HR* Warfarin 5 MG TABLET PO ONE (18:00)
[2018-02-26] MEDS: Gabapentin 100 MG CAPSULE PO SCH (21:06)
[2018-02-26] MEDS: Topiramate 25 MG TABLET PO SCH (21:06)
[2018-02-26] MEDS: Insulin DETEMIR 100 UNIT/ML X5UNITS SQ SCH (21:06)
[2018-02-26] MEDS: traZODone 50 MG TABLET PO SCH (21:06)
[2018-02-27 02:16] LABS: Basophils % 0.2 %; Eosinophils # 0.4 K/mcL (0.0-0.6); Eosinophils % 7.8 %; Hematocrit 28.6 % (37.5-50.1); Hemoglobin 8.5 g/dL (12.9-16.9); Immature Granulocytes % 0.2 % (0-4); Lymphocytes % 22.2 %; Mean Corpuscular HGB Conc 29.7 g/dL (31.6-35.5); Mean Corpuscular Hemoglobin 27.6 pg (28.0-33.3); Mean Corpuscular Volume 92.9 fL (83.0-100.0); Mean Platelet Volume 10.2 fL (9.4-12.4); Monocytes # 0.6 K/mcL (0.0-1.3); Monocytes % 13.5 %; Neutrophils # 2.5 K/mcL (1.6-8.9); Platelet Count 205 K/mcL (140-400); Red Blood Count 3.08 M/mcL (4.19-5.50); Red Cell Distribution Width 14.6 % (11.5-14.5); Segmented Neutrophils % 56.1 %
[2018-02-27 02:21] LABS: INR 2.8; Prothrombin Time 30.4 Seconds (9.4-12.1)
[2018-02-27 02:34] LABS: BUN/Creatinine Ratio 26 (6-26); Blood Urea Nitrogen 23 mg/dL (8-23); Carbon Dioxide 23 mEq/L (23-29); Chloride 112 mEq/L (98-107); Glucose 170 mg/dL (70-105); Osmolality,Calculated 296 (280-300); Potassium 4.3 mEq/L (3.5-5.1); Sodium 139 mEq/L (136-145); eGFR For African Americans > 60 (> 60); eGFR For Non-African Americans > 60 (> 60)
[2018-02-27] MEDS: Cefepime HCl 2,000 MG in Water for inj. (sterile) 20 ML 20 ML IVP SCH ×2 (05:35→18:48)
--- NOTE | 2018-02-27 06:45 | Electrocardiograph Report ---
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
[2018-02-27] MEDS: Aspirin Enteric Coated 81 MG Tablet PO SCH (08:00)
[2018-02-27] MEDS: Multivit/Ca/Min/Fe/FA 1 TAB TABLET PO SCH (08:00)
[2018-02-27] MEDS: BuPROPion XL (24 HR) 150 MG TABLET PO SCH (08:00)
[2018-02-27] MEDS: amLODIPine 5 MG TABLET PO SCH (08:00)
[2018-02-27] MEDS: (Ezetimibe [Zetia] 10 MG) PO SCH (08:01)
--- NOTE | 2018-02-27 10:36 | Internal Med Progress Note ---
Date of Encounter: 02/27/18 Time of Encounter: 10:34 - Assessment and plan (1) Pneumonia Current Visit: Yes Status: Acute Assessment and plan: Presented with weakness and shortness of breath which began 3 days ago. Dyspnea worsened with exertion and improved with rest. Right lower lobe pneumonia found on CXR. Has had multiple recent hospital admissions and was found to have a pseudomonas infection at [facility]. Will be treated for HCAP. Blood cultures collected 02/25/18 preliminary with no growth. Per today's assessment lungs are clear/diminished throughout AP and L. Patient is in no respiratory distress and resting comfortably on a trach mask at this time. Only c/o mild chest discomfort with deep inhalation. - Urine Legionella antigen, strep pneumo antigen pending - Continue a ABX vancomycin and cefepime - CBCD, CMP in AM - Continue telemetry - Continue O2 as needed to maintain sats greater than 92%. - Continue to monitor labs, vital signs, patient condition. Qualifiers: Pneumonia type: due to unspecified organism Laterality: right Lung location: lower lobe of lung Qualified Code(s): J18.1 - Lobar pneumonia, unspecified organism (2) CAD (coronary artery disease) Current Visit: Yes Status: Chronic Assessment and plan: History of CAD requiring stents. Denies any current chest pain Continue cardiac medications Continuous telemetry Qualifiers: Coronary Disease-Associated Artery/Lesion type: bypass graft [place] vs. transplanted heart: [place] heart Associated angina: with stable angina Qualified Code(s): I25.708 - Atherosclerosis of coronary artery bypass graft(s) , unspecified, with other forms of angina pectoris (3) Diabetes Current Visit: Yes Status: Chronic Assessment and plan: A1c 7.4% in November,, continue basal insulin. Qualifiers: Diabetes mellitus type: type 2 Diabetes mellitus nursing home insulin use: with intermodal customer service use Diabetes mellitus complication status: without complication Qualified Code(s): E11.9 - Type 2 diabetes mellitus without complications; Z79.4 - [facility] (current) use of insulin (4) Atrial fibrillation Current Visit: Yes Status: Chronic Assessment and plan: History of chronic A. fib, rate controlled with beta blockers, continue BB. Continue warfarin with PT to dose, continue to monitor INR Qualifiers: Atrial fibrillation type: paroxysmal Qualified Code(s): I48.0 - Paroxysmal atrial fibrillation (5) Nasopharyngeal cancer Current Visit: Yes Status: Chronic Assessment and plan: Prior history of nasopharyngeal cancer was diagnosed in 2006 and treated with cisplatin and Erbitux as well as radiation and 5-FU. 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 Has been having recurring headaches, CT scan of neck revealed enlarged right cervical lymph nodes. Subsequent PET scan on 01/03/18 showed mild FDG uptake in nasopharyngeal region concerning for possible recurrence of metastatic disease. Biopsy at [facility] shows no malignancy of concerning area, however, was found to have pseudomonas infection and was treated with Cipro for 6 weeks. Has been following with [place] [facility] since discharge from [facility], wishes to continue to follow with [facility]. Patient is to follow up with oncology after discharge (6) Hypertension Current Visit: Yes Status: Chronic Assessment and plan: History of chronic HTN, BP has been well controlled throughout the stay. Continue home anti-HTN medications. 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 Currently taking Synthroid, TSH this admission low at 0.30 likely caused by twice a day Synthroid dose. Free T4 1.109 and free T3 2.92 Continue Synthroid at Home Dose Qualifiers: Hypothyroidism type: other Qualified Code(s): E03.8 - Other specified hypothyroidism (8) DVT prophylaxis Current Visit: Yes Status: Acute Assessment and plan: He is on Coumadin, PT/INR currently therapeutic. Continue to monitor. - Time Spent With Patient Total time spent is greater than 50% in coordination of care (as documented) at patient's floor/unit and/or counseling patient: Greater than 35 minutes - Subjective Interval history: Patient seen and examined at bedside today. Reports that shortness of breath is improving. However, continues to endorse mild discomfort with deep inspiratory effort. Denies any chest pain. Denies any cough as of this morning. No additional concerns or questions at this time. - Constitutional Vitals: Temp Pulse Resp BP Pulse Ox 98.3 F 55 14 123/68 99 02/27/18 10:23 02/27/18 10:23 02/27/18 10:23 02/27/18 10:23 02/27/18 10:23 General appearance: Present: cooperative, A&O X 3, pleasant, no acute distress, answers questions appropriately - Head Head exam: Present: atraumatic, normocephalic - Eye Eye exam: Present: PERRL, conjuntiva pink, sclera anicteric Pupils: Present: PERRL - Neck Neck exam general surgery: Present: supple, trachea midline. Absent: lymphadenopathy - Respiratory Respiratory exam: Present: decreased breath sounds, CTAB. Absent: accessory muscle use, rales, respiratory distress, rhonchi, wheezes - Cardiovascular Cardiovascular exam: Present: RRR, +S1, +S2. Absent: diastolic murmur, gallop, rubs, systolic murmur - GI/Abdominal GI/Abdominal exam: Present: normal bowel sounds, soft, no peritoneal signs. Absent: distended, tenderness - Extremities Exam Extremities exam: Present: warm, radial pulses palpable and symmetrical. Absent : calf tenderness, cyanotic, pedal edema - Neurological Exam Neurological exam: Present: CN II-XII intact, oriented X3, no focal deficits. Absent: pronater drift, facial droop, speech deficit - Skin Skin exam: Present: dry, intact Internal Medicine: Result - Labs CBC & Chem 7: 02/27/18 01:58 02/27/18 01:58 Labs: Short CBC 02/27/18 Range/Units 01:58 WBC 4.5 (4.3-11.1) K/mcL Hgb 8.5 L (12.9-16.9) g/dL Hct 28.6 L (37.5-50.1) % Plt Count 205 (140-400) K/mcL Neutrophils # 2.5 (1.6-8.9) K/mcL BMP 02/27/18 01:58 Sodium 139 Potassium 4.3 Chloride 112 H Carbon Dioxide 23 BUN 23 Creatinine 0.87 Glucose 170 H Calcium 8.0 L - ABG Interpretation ABG results: PT/INR, D-dimer PT 30.4 Seconds (9.4-12.1) H 02/27/18 01:58 Consult Discharge Plan - Plan Referrals: Peter Carlson MD [Primary Care Provider] - 03/15/18 4:00 pm
[2018-02-27] MEDS ORDERED: *HR* Dextrose 50 % in Water (Syg) 50 ML SYRINGE IVP ONE (13:09)
[2018-02-27] MEDS ORDERED: *HR* Dextrose 50 % in Water (Syg) 50 ML SYRINGE ONE (13:12)
[2018-02-27] MEDS: *HR* OxyCODONE/APAP 10/325 TABLET PO PRN (16:11)
[2018-02-27] MEDS ORDERED: *HR* Warfarin 7.5 MG TABLET PO ONE (18:00)
[2018-02-27] MEDS: Insulin DETEMIR 100 UNIT/ML X5UNITS SQ SCH (20:44)
[2018-02-27] MEDS: Gabapentin 100 MG CAPSULE PO SCH (20:50)
[2018-02-27] MEDS: traZODone 50 MG TABLET PO SCH (20:50)
[2018-02-27] MEDS: Topiramate 25 MG TABLET PO SCH (20:50)
[2018-02-28] MEDS: Cefepime HCl 2,000 MG in Water for inj. (sterile) 20 ML 20 ML IVP SCH ×2 (05:29→17:33)
[2018-02-28 06:09] LABS: Basophils % 0.5 %; Eosinophils # 0.3 K/mcL (0.0-0.6); Eosinophils % 6.7 %; Hematocrit 28.6 % (37.5-50.1); Hemoglobin 8.9 g/dL (12.9-16.9); Immature Granulocytes % 0.3 % (0-4); Lymphocytes # 0.9 K/mcL (0.6-4.6); Lymphocytes % 23.1 %; Mean Corpuscular HGB Conc 31.1 g/dL (31.6-35.5); Mean Corpuscular Hemoglobin 28.9 pg (28.0-33.3); Mean Corpuscular Volume 92.9 fL (83.0-100.0); Monocytes # 0.4 K/mcL (0.0-1.3); Monocytes % 11.3 %; Neutrophils # 2.3 K/mcL (1.6-8.9); Platelet Count 215 K/mcL (140-400); Red Blood Count 3.08 M/mcL (4.19-5.50); Red Cell Distribution Width 14.6 % (11.5-14.5); Segmented Neutrophils % 58.1 %
[2018-02-28 06:15] LABS: INR 2.9; Prothrombin Time 32.4 Seconds (9.4-12.1)
[2018-02-28 06:30] LABS: BUN/Creatinine Ratio 32 (6-26); Blood Urea Nitrogen 23 mg/dL (8-23); Calcium 8.3 mg/dL (8.6-10.3); Carbon Dioxide 21 mEq/L (23-29); Chloride 116 mEq/L (98-107); Glucose 88 mg/dL (70-105); Osmolality,Calculated 301 (280-300); Potassium 4.5 mEq/L (3.5-5.1); Sodium 144 mEq/L (136-145); eGFR For African Americans > 60 (> 60); eGFR For Non-African Americans > 60 (> 60)
[2018-02-28] MEDS: amLODIPine 5 MG TABLET PO SCH (08:27)
[2018-02-28] MEDS: Multivit/Ca/Min/Fe/FA 1 TAB TABLET PO SCH (08:27)
[2018-02-28] MEDS: Aspirin Enteric Coated 81 MG Tablet PO SCH (08:28)
[2018-02-28] MEDS: BuPROPion XL (24 HR) 150 MG TABLET PO SCH (08:28)
[2018-02-28] MEDS: (Ezetimibe [Zetia] 10 MG) PO SCH (08:31)
--- NOTE | 2018-02-28 14:40 | Internal Med Progress Note ---
Date of Encounter: 02/28/18 Time of Encounter: 13:00 - Assessment and plan (1) Pneumonia Current Visit: Yes Status: Acute Assessment and plan: Presented with weakness and shortness of breath which began 4 days ago. CXR reveals patchy airspace opacity right lower lobe associated with tiny right pleural effusion sinus compatible with pneumonia. Has had multiple recent hospital admissions. Currently being treated for H CAP. Respiratory status improving today. Patient remained on trach mask and now on 8 L, continue to titrate. No respiratory distress today, lungs clear to auscultation AP and L. Clinically, continue to improve overnight, remained afebrile, hemodynamically stable. Has had multiple recent hospital admissions and was found to have a nasopharyngeal pseudomonas infection during admission at [facility]. Due to recent hospital admissions and recent infection the patient Will be treated for HCAP. Blood cultures collected 02/25/18 preliminary with no growth. - Urine Legionella antigen, strep pneumo antigen negative - Continue a ABX vancomycin and cefepime-consider changing to monotherapy tomorrow as long as patient continues to improve. - Continue closely monitor renal function while on vancomycin, troughs per pharmacy - CBCD, CMP in AM - Continue telemetry - Continue O2 as needed to maintain sats greater than 92%. - Titrate from trach last room air as tolerated. Patient does not wear oxygen at home. - Continue to monitor labs, vital signs, patient condition. Qualifiers: Pneumonia type: due to unspecified organism Laterality: right Lung location: lower lobe of lung Qualified Code(s): J18.1 - Lobar pneumonia, unspecified organism (2) CAD (coronary artery disease) Current Visit: Yes Status: Chronic Assessment and plan: History of CAD requiring stents. No chest pain throughout the stay Resume all home cardiac medications Continuous telemetry Qualifiers: Coronary Disease-Associated Artery/Lesion type: bypass graft [place] vs. transplanted heart: [place] heart Associated angina: with stable angina Qualified Code(s): I25.708 - Atherosclerosis of coronary artery bypass graft(s) , unspecified, with other forms of angina pectoris (3) Diabetes Current Visit: Yes Status: Chronic Assessment and plan: Continue basal insulin, blood glucose has remained stable Qualifiers: Diabetes mellitus type: type 2 Diabetes mellitus terminal operator insulin use: with fpc use Diabetes mellitus complication status: without complication Qualified Code(s): E11.9 - Type 2 diabetes mellitus without complications; Z79.4 - terminal operator (current) use of insulin (4) Atrial fibrillation Current Visit: Yes Status: Chronic Assessment and plan: History of chronic A. fib, throughout his stay he had remained rate controlled with beta blockers, continue BB. Continue warfarin with PT to dose, continue to monitor INR Remain on telemetry Qualifiers: Atrial fibrillation type: paroxysmal Qualified Code(s): I48.0 - Paroxysmal atrial fibrillation (5) Nasopharyngeal cancer Current Visit: Yes Status: Chronic Assessment and plan: Continue to follow the date oncology Patient to follow in office after discharge (6) Hypertension Current Visit: Yes Status: Chronic Assessment and plan: History of HTN, BP has remained stable. Home anti-HTN medications of been resumed continue to closely monitor hemodynamic status. Qualifiers: Hypertension type: essential hypertension Qualified Code(s): I10 - Essential (primary) hypertension (7) Hypothyroidism, unspecified Current Visit: Yes Status: Chronic Assessment and plan: Iatrogenic hypothyroidism. Subclinical TSH this admission low at 0.30 NL 0.34 Free T4 1.109 and free T3 2.92 within normal limits Continue Synthroid at current dose and monitor for s/sx of hyperthyroidism Qualifiers: Hypothyroidism type: other Qualified Code(s): E03.8 - Other specified hypothyroidism (8) DVT prophylaxis Current Visit: Yes Status: Acute Assessment and plan: He is on Coumadin, INR remains therapeutic, Continue to monitor. - Time Spent With Patient Total time spent is greater than 50% in coordination of care (as documented) at patient's floor/unit and/or counseling patient: 25 - 35 minutes - Subjective Interval history: Patient seen and examined at bedside today. Denies any shortness of breath today. Had C/o mild discomfort with deep inspiratory effort. however, has subsided as of today. Denies any chest pain. Continued to report dry nonproductive intermittent cough. Remains on trach mask at this time, continue to titrate, patient tolerating titration well so far. No additional concerns or questions at this time. - Constitutional Vitals: Temp Pulse Resp BP Pulse Ox 98.5 F 58 16 115/59 90 02/28/18 14:26 02/28/18 14:26 02/28/18 14:26 02/28/18 14:26 02/28/18 14:26 General appearance: Present: cooperative, A&O X 3, pleasant, no acute distress, answers questions appropriately - Head Head exam: Present: atraumatic, normocephalic - Eye Eye exam: Present: PERRL, conjuntiva pink, sclera anicteric Pupils: Present: PERRL - Neck Neck exam general surgery: Present: supple, trachea midline. Absent: lymphadenopathy - Respiratory Respiratory exam: Present: CTAB. Absent: accessory muscle use, rales, rhonchi, wheezes - Cardiovascular Cardiovascular exam: Present: RRR, +S1, +S2. Absent: diastolic murmur, gallop, rubs, systolic murmur - GI/Abdominal GI/Abdominal exam: Present: normal bowel sounds, soft, no peritoneal signs. Absent: distended, tenderness - Extremities Exam Extremities exam: Present: warm, radial pulses palpable and symmetrical. Absent : calf tenderness, cyanotic, pedal edema - Neurological Exam Neurological exam: Present: CN II-XII intact, oriented X3, no focal deficits. Absent: pronater drift, facial droop, speech deficit - Skin Skin exam: Present: dry, intact Internal Medicine: Result - Labs CBC & Chem 7: 02/28/18 04:43 02/28/18 04:43 Labs: Short CBC 02/28/18 Range/Units 04:43 WBC 3.9 L (4.3-11.1) K/mcL Hgb 8.9 L (12.9-16.9) g/dL Hct 28.6 L (37.5-50.1) % Plt Count 215 (140-400) K/mcL Neutrophils # 2.3 (1.6-8.9) K/mcL BMP 02/28/18 04:43 Sodium 144 Potassium 4.5 Chloride 116 H Carbon Dioxide 21 L BUN 23 Creatinine 0.73 Glucose 88 Calcium 8.3 L - ABG Interpretation ABG results: PT/INR, D-dimer PT 32.4 Seconds (9.4-12.1) H 02/28/18 04:43 Consult Discharge Plan - Plan Referrals: Peter Carlson MD [Primary Care Provider] - 03/15/18 4:00 pm
[2018-02-28] MEDS: *HR* OxyCODONE/APAP 10/325 TABLET PO PRN (15:01)
[2018-02-28] MEDS ORDERED: *HR* Warfarin 5 MG TABLET PO ONE (18:00)
[2018-02-28] MEDS: traZODone 50 MG TABLET PO SCH (21:25)
[2018-02-28] MEDS: Gabapentin 100 MG CAPSULE PO SCH (21:25)
[2018-02-28] MEDS: Insulin DETEMIR 100 UNIT/ML X5UNITS SQ SCH (21:26)
[2018-02-28] MEDS: Topiramate 25 MG TABLET PO SCH (21:26)
[2018-03-01] MEDS: Cefepime HCl 2,000 MG in Water for inj. (sterile) 20 ML 20 ML IVP SCH ×2 (05:35→17:49)
[2018-03-01 06:02] LABS: Basophils % 0.5 %; Eosinophils # 0.2 K/mcL (0.0-0.6); Eosinophils % 5.5 %; Hematocrit 29.6 % (37.5-50.1); Hemoglobin 8.9 g/dL (12.9-16.9); Immature Granulocytes % 0.5 % (0-4); Lymphocytes # 0.9 K/mcL (0.6-4.6); Lymphocytes % 19.9 %; Mean Corpuscular HGB Conc 30.1 g/dL (31.6-35.5); Mean Corpuscular Hemoglobin 27.6 pg (28.0-33.3); Mean Corpuscular Volume 91.9 fL (83.0-100.0); Monocytes # 0.5 K/mcL (0.0-1.3); Monocytes % 11.7 %; Neutrophils # 2.7 K/mcL (1.6-8.9); Platelet Count 226 K/mcL (140-400); Red Blood Count 3.22 M/mcL (4.19-5.50); Red Cell Distribution Width 14.3 % (11.5-14.5); Segmented Neutrophils % 61.9 %
[2018-03-01 06:07] LABS: INR 3.9; Prothrombin Time 43.1 Seconds (9.4-12.1)
[2018-03-01 06:31] LABS: BUN/Creatinine Ratio 31 (6-26); Blood Urea Nitrogen 23 mg/dL (8-23); Calcium 8.5 mg/dL (8.6-10.3); Carbon Dioxide 24 mEq/L (23-29); Chloride 111 mEq/L (98-107); Glucose 118 mg/dL (70-105); Osmolality,Calculated 295 (280-300); Potassium 4.4 mEq/L (3.5-5.1); Sodium 140 mEq/L (136-145); eGFR For African Americans > 60 (> 60); eGFR For Non-African Americans > 60 (> 60)
[2018-03-01] MEDS: amLODIPine 5 MG TABLET PO SCH (09:38)
[2018-03-01] MEDS: BuPROPion XL (24 HR) 150 MG TABLET PO SCH (09:38)
[2018-03-01] MEDS: Aspirin Enteric Coated 81 MG Tablet PO SCH (09:39)
[2018-03-01] MEDS: Multivit/Ca/Min/Fe/FA 1 TAB TABLET PO SCH (09:39)
[2018-03-01] MEDS: (Ezetimibe [Zetia] 10 MG) PO SCH (09:41)
--- NOTE | 2018-03-01 17:41 | Internal Med Progress Note ---
Date of Encounter: 03/01/18 Time of Encounter: 17:37 - Assessment and plan (1) Pneumonia Current Visit: Yes Status: Acute Assessment and plan: Presented with weakness and shortness of breath which began 5 days ago. CXR reveals patchy airspace opacity right lower lobe associated with tiny right pleural effusion sinus compatible with pneumonia. Has been treated with broad-spectrum antibiotics with a diagnosis of H CAP. Has had multiple recent hospital admissions, including an admission to [facility] and was treated for a sinus infection positive for Pseudomonas. Her respiratory status has been getting progressively improving and we have been able to successfully titrate him from 8 L per trach mask to room air. No respiratory distress today, lungs clear to auscultation AP and L. Clinically, continue to improve overnight, remained afebrile, hemodynamically stable. Workup included blood cultures is found to be preliminary no growth, urine Legionella antigen and strep pneumonia antigen were found to be negative. Broad-spectrum antibiotic therapy was transitioned to monotherapy with cefepime, continue to monitor. - Continue telemetry - Continue O2 as needed to maintain sats greater than 92%. - Continue to monitor labs, vital signs, patient condition. Qualifiers: Pneumonia type: due to unspecified organism Laterality: right Lung location: lower lobe of lung Qualified Code(s): J18.1 - Lobar pneumonia, unspecified organism (2) CAD (coronary artery disease) Current Visit: Yes Status: Chronic Assessment and plan: Resume cardiac medications, continuous telemetry, denies any chest pain continue to monitor closely Qualifiers: Coronary Disease-Associated Artery/Lesion type: bypass graft [place] vs. 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) , unspecified, with other forms of angina pectoris (3) Diabetes Current Visit: Yes Status: Chronic Assessment and plan: Continue basal insulin, blood glucose has continued to remain stable, continue to monitor Qualifiers: Diabetes mellitus type: type 2 Diabetes mellitus janitorial assistant insulin use: with janitorial assistant use Diabetes mellitus complication status: without complication Qualified Code(s): E11.9 - Type 2 diabetes mellitus without complications; Z79.4 - alf (current) use of insulin (4) Atrial fibrillation Current Visit: Yes Status: Chronic Assessment and plan: She has a history of A. fib, has remained rate controlled throughout this stay, controlled with beta blockers. 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 Subclinical TSH this admission low at 0.30 NL 0.34 Free T4 1.109 and free T3 2.92 within normal limits Patient noted to have some hyperreflexia upon today's exam. Additional TSH ordered, follow results At this time I will Continue Synthroid at current dose and continue to monitor for s/sx of hyperthyroidism She will remain on telemetry Qualifiers: Hypothyroidism type: other Qualified Code(s): E03.8 - Other specified hypothyroidism (8) DVT prophylaxis Current Visit: Yes Status: Acute Assessment and plan: He is on Coumadin, INR remains therapeutic, Continue to monitor. - Time Spent With Patient Total time spent is greater than 50% in coordination of care (as documented) at patient's floor/unit and/or counseling patient: Greater than 35 minutes - Subjective Interval history: Patient seen and examined at bedside today. No shortness of breath reported. Denies any chest pain. Continued to report dry nonproductive intermittent cough. Patient is now on room air. Appears to be in no respiratory distress, No additional concerns or questions at this time. - Constitutional Vitals: Temp Pulse Resp BP Pulse Ox 98.5 F 59 17 132/63 99 03/01/18 14:35 03/01/18 14:35 03/01/18 14:35 03/01/18 14:35 03/01/18 15:52 General appearance: Present: cooperative, A&O X 3, pleasant, no acute distress, answers questions appropriately - Head Head exam: Present: atraumatic, normocephalic - Eye Eye exam: Present: PERRL, conjuntiva pink, sclera anicteric Pupils: Present: PERRL - Neck Neck exam general surgery: Present: supple, trachea midline. Absent: lymphadenopathy - Respiratory Respiratory exam: Present: CTAB. Absent: accessory muscle use, rales, rhonchi, wheezes - Cardiovascular Cardiovascular exam: Present: RRR, +S1, +S2. Absent: diastolic murmur, gallop, rubs, systolic murmur - GI/Abdominal GI/Abdominal exam: Present: normal bowel sounds, soft, no peritoneal signs. Absent: distended, tenderness - Extremities Exam Extremities exam: Present: warm, radial pulses palpable and symmetrical. Absent : calf tenderness, cyanotic, pedal edema - Neurological Exam Neurological exam: Present: CN II-XII intact, oriented X3, no focal deficits. Absent: pronater drift, facial droop, speech deficit - Skin Skin exam: Present: dry, intact Internal Medicine: Result - Labs CBC & Chem 7: 03/01/18 04:13 03/01/18 04:13 Labs: Short CBC 03/01/18 Range/Units 04:13 WBC 4.4 (4.3-11.1) K/mcL Hgb 8.9 L (12.9-16.9) g/dL Hct 29.6 L (37.5-50.1) % Plt Count 226 (140-400) K/mcL Neutrophils # 2.7 (1.6-8.9) K/mcL BMP 03/01/18 04:13 Sodium 140 Potassium 4.4 Chloride 111 H Carbon Dioxide 24 BUN 23 Creatinine 0.74 Glucose 118 H Calcium 8.5 L - ABG Interpretation ABG results: PT/INR, D-dimer PT 43.1 Seconds (9.4-12.1) H 03/01/18 04:13 Consult Discharge Plan - Plan Referrals: Peter Carlson MD [Primary Care Provider] - 03/15/18 4:00 pm
[2018-03-01] MEDS: traZODone 50 MG TABLET PO SCH (23:18)
[2018-03-01] MEDS: Topiramate 25 MG TABLET PO SCH (23:18)
[2018-03-01] MEDS: Gabapentin 100 MG CAPSULE PO SCH (23:19)
[2018-03-01] MEDS: Insulin DETEMIR 100 UNIT/ML X5UNITS SQ SCH (23:19)
[2018-03-02 05:47] LABS: Basophils % 0.4 %; Eosinophils # 0.2 K/mcL (0.0-0.6); Eosinophils % 4.9 %; Hematocrit 32.1 % (37.5-50.1); Hemoglobin 10.2 g/dL (12.9-16.9); Immature Granulocytes % 0.4 % (0-4); Lymphocytes # 0.9 K/mcL (0.6-4.6); Lymphocytes % 18.9 %; Mean Corpuscular HGB Conc 31.8 g/dL (31.6-35.5); Mean Corpuscular Hemoglobin 28.9 pg (28.0-33.3); Mean Corpuscular Volume 90.9 fL (83.0-100.0); Mean Platelet Volume 10.5 fL (9.4-12.4); Monocytes # 0.5 K/mcL (0.0-1.3); Monocytes % 10.7 %; Neutrophils # 3.2 K/mcL (1.6-8.9); Platelet Count 238 K/mcL (140-400); Red Blood Count 3.53 M/mcL (4.19-5.50); Red Cell Distribution Width 14.2 % (11.5-14.5); Segmented Neutrophils % 64.7 %
[2018-03-02 05:54] LABS: INR 3.4; Prothrombin Time 37.3 Seconds (9.4-12.1)
[2018-03-02 06:05] LABS: BUN/Creatinine Ratio 34 (6-26); Blood Urea Nitrogen 23 mg/dL (8-23); Calcium 8.8 mg/dL (8.6-10.3); Carbon Dioxide 23 mEq/L (23-29); Chloride 113 mEq/L (98-107); Glucose 117 mg/dL (70-105); Osmolality,Calculated 297 (280-300); Potassium 4.2 mEq/L (3.5-5.1); Sodium 141 mEq/L (136-145); eGFR For African Americans > 60 (> 60); eGFR For Non-African Americans > 60 (> 60)
[2018-03-02] MEDS: Cefepime HCl 2,000 MG in Water for inj. (sterile) 20 ML 20 ML IVP SCH (06:20)
[2018-03-02] MEDS: Multivit/Ca/Min/Fe/FA 1 TAB TABLET PO SCH (08:43)
[2018-03-02] MEDS: (Ezetimibe [Zetia] 10 MG) PO SCH (08:44)
[2018-03-02] MEDS: BuPROPion XL (24 HR) 150 MG TABLET PO SCH (08:44)
[2018-03-02] MEDS: amLODIPine 5 MG TABLET PO SCH (08:44)
[2018-03-02] MEDS: Aspirin Enteric Coated 81 MG Tablet PO SCH (08:44)
--- NOTE | 2018-03-02 10:29 | Discharge Summary ---
- NOTES TO OUTPATIENT PROVIDER Notes to Outpatient Provider: Patient admitted and treated for healthcare acquired pneumonia. Uneventful hospital course. Was noted to have TSH of 0.028 , and 0.026. Clinical assessment found mild hyperreflexia, current Synthroid dose 300 g daily. There is some concern about the patient's dose of thyroid medication. This was down titrated to 200 g daily. Patient has been instructed to f/u with PCP in 1 week of discharge Orders not resulted at time of discharge: Pending orders 02/27/18 12:17 Culture,Sputum with Gram Stain [RM] Routine 03/03/18 04:00 INR/PT [Prothrombin Time INR] [COAG] AM 0400 Date of Encounter: 03/02/18 Time of Encounter: 10:29 - Discharge Diagnosis (1) Pneumonia Priority: Primary Status: Acute Assessment and Plan: Presented with weakness and shortness of breath which began 5 days ago. CXR reveals patchy airspace opacity right lower lobe associated with tiny right pleural effusion sinus compatible with pneumonia. Has been treated with broad-spectrum antibiotics with a diagnosis of H CAP. Has had multiple recent hospital admissions, including an admission to [facility] and was treated for a sinus infection positive for Pseudomonas. Her respiratory status has been progressively improving and we have been able to successfully titrate him from 8 L per trach mask to room air. Overnight the patient was noted to have some mild hypoxia while on room air and benefited from additional O2 support while sleeping. The patient has been informed that he should wear oxygen per trach mask at night. Patient heart is oxygen set up at home and is already supposed to wear oxygen per trach mask at night. However, at times he is noncompliant and admits that that he forgets to wear his O2 at night. The importance of wearing O2 at night has been discussed with the patient and he agrees to wear O2 as prescribed. No respiratory distress today, lungs clear to auscultation AP and L. Clinically, continue to improve, remained afebrile, hemodynamically stable. Patient reports that he is now back to baseline. Workup included blood cultures is found to be preliminary no growth, urine Legionella antigen and strep pneumonia antigen were found to be negative. Patient will be discharged on oral antibiotics. Denies any further questions or concerns at this time. Remains hemodynamically stable and is medically safe for discharge today. She has been instructed to follow up with his primary care provider within one week of discharge to reassess respiratory status and address thyroid medication. Additionally, he has been instructed to return to the ED showed shortness of breath resume. Qualifiers: Pneumonia type: due to unspecified organism Laterality: right Lung location: lower lobe of lung Qualified Code(s): J18.1 - Lobar pneumonia, unspecified organism (2) CAD (coronary artery disease) Priority: Secondary Status: Chronic Assessment and Plan: Resume cardiac medications upon discharge Qualifiers: Coronary Disease-Associated Artery/Lesion type: bypass graft [place] vs. 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 fib, has remained rate controlled throughout this stay. Continue warfarin upon discharge, INR 3.4 today, patient been instructed to continue to have warfarin levels checked regularly Qualifiers: Atrial fibrillation type: paroxysmal Qualified Code(s): I48.0 - Paroxysmal atrial fibrillation (5) Nasopharyngeal cancer Priority: Secondary Status: Chronic Assessment and Plan: We will follow with [facility] after discharge (6) Hypertension Priority: Secondary Status: Chronic Assessment and Plan: History of HTN, controlled throughout the stay, continue HTN medications upon discharge Qualifiers: Hypertension type: essential hypertension Qualified Code(s): I10 - Essential (primary) hypertension (7) Hypothyroidism, unspecified Priority: Secondary Status: Chronic Assessment and Plan: Iatrogenic hypothyroidism. Subclinical TSH this admission low at 0.28, 0.30 and 0.26 NL 0.34 Free T4 1.109 and free T3 2.92 within normal limits; TSH trended due to concerns for hyperthyroidism with high-dose of levothyroxine. Patient noted to have some mild hyperreflexia. Synthroid down titrated to 250 g daily due to S/SX of hyperthyroidism. This has been discussed with the patient's PCP who manages the patient's levothyroxine dose. PCP and agreements with down titration, patient to follow- up with PCP within 1 week of discharge. He will be sent home with a new prescription for Synthroid 250 g daily Qualifiers: Hypothyroidism type: other Qualified Code(s): E03.8 - Other specified hypothyroidism (8) DVT prophylaxis Priority: Secondary Status: Acute Hospital course: Mr. Salmeron is a 77 year old male Presented with weakness and shortness of breath which began 5 days ago. CXR reveals patchy airspace opacity right lower lobe associated with tiny right pleural effusion sinus compatible with pneumonia. Has been treated with broad-spectrum antibiotics with a diagnosis of H CAP. Has had multiple recent hospital admissions, including an admission to [facility] and was treated for a sinus infection positive for Pseudomonas. Her respiratory status has been progressively improving and we have been able to successfully titrate him from 8 L per trach mask to room air. Overnight the patient was noted to have some mild hypoxia while on room air and benefited from additional O2 support while sleeping. The patient has been informed that he should wear oxygen per trach mask at night. Patient heart is oxygen set up at home and is already supposed to wear oxygen per trach mask at night. However, at times he is noncompliant and admits that that he forgets to wear his O2 at night. The importance of wearing O2 at night has been discussed with the patient and he agrees to wear O2 as prescribed. No respiratory distress today, lungs clear to auscultation AP and L. Clinically, continue to improve, remained afebrile, hemodynamically stable. Patient reports that he is now back to baseline. Workup included blood cultures is found to be preliminary no growth, urine Legionella antigen and strep pneumonia antigen were found to be negative. Patient will be discharged on oral antibiotics. Additionally, the patient was noted to have hyperthyroidism throughout the stay. Patient has iatrogenic hyperthyroidism is on 300 g of Synthroid. I have discussed his hyperthyroidism during this stay with his primary care provider who is in agreement to down titrate the patient' s dose to 250 g of Synthroid daily. The patient will be sent home with a prescription for Synthroid 250 g by mouth daily. Denies any further questions or concerns at this time. Remains hemodynamically stable and is medically safe for discharge today. She has been instructed to follow up with his primary care provider within one week of discharge to reassess respiratory status and address thyroid medication and TSH follow-up. Additionally, he has been instructed to return to the ED showed shortness of breath resume. Discharge discussed with: patient, family, nurse, case management - Time Spent with Patient Total time spent providing and/or coordinating discharge services: Greater than 30 minutes - Discharge Medications Prescriptions: Levofloxacin [Levaquin] 750 mg PO DAILY 2 Days #2 tablet Levothyroxine Sodium [Synthroid] 250 mcg PO QAM #30 tablet Home Medications: Omeprazole [PriLOSEC] 20 mg PO QAM 06/11/15 [History] Tamsulosin [Flomax] 0.4 mg PO QAM 06/11/15 [History] Lisinopril 10 mg PO BID 08/10/15 [History] Insulin Glargine,Hum.rec.anlog [Lantus Solostar] 22 unit SQ HS 12/09/15 [History ] Acetaminophen/Butalbital/Caffe [Fioricet] 1 tab PO DAILY PRN 05/14/17 [History] Gabapentin [Neurontin] 100 mg PO HS 05/14/17 [History] Aspirin Enteric Coated [Aspirin EC] 81 mg PO DAILY 08/17/17 [History] Atorvastatin Calcium [Lipitor] 80 mg PO HS 08/17/17 [History] Nitroglycerin 0.4 mg SL Q5MIN PRN #14 tab.subl 08/22/17 [Rx] BuPROPion XL (24 HR) [Wellbutrin Xl] 150 mg PO DAILY 12/16/17 [History] Cyclobenzaprine HCl 5 mg PO HS 12/16/17 [History] Ezetimibe [Zetia] 10 mg PO DAILY 12/16/17 [History] Metformin HCl [Metformin HCl ER] 500 mg PO DAILY 12/16/17 [History] Sertraline [Zoloft] 100 mg PO DAILY 12/16/17 [History] Topiramate [Topamax] 50 mg PO HS 12/16/17 [History] amLODIPine [Norvasc] 5 mg PO DAILY 12/16/17 [History] OxyCODONE/APAP 10/325 [Percocet 10/325 MG] 1 each PO Q6HR PRN 14 Days #56 tablet 01/08/18 [Rx] Ciprofloxacin [Cipro] 750 mg PO BID 01/31/18 [History] Metoprolol [Lopressor] 25 mg PO BID 02/25/18 [History] Multivit-Min/FA/Lycopen/Lutein [Adults 50+ Multivitamin Tablet] 1 tab PO DAILY 02/25/18 [History] Trazodone HCl 50 mg PO HS 02/25/18 [History] Warfarin [Coumadin] 7.5 mg PO MOWEFR 02/26/18 [History] Warfarin [Coumadin] 10 mg PO SUTUTHSA 02/26/18 [History] Levofloxacin [Levaquin] 750 mg PO DAILY 2 Days #2 tablet 03/02/18 [Rx] Levothyroxine Sodium [Synthroid] 250 mcg PO QAM #30 tablet 03/02/18 [Rx] Allergies/Adverse Reactions: 3 Allergy/AdvReac Type Severity Reaction Status Date / Time No Known Allergies Allergy Verified 02/26/18 08:29 Date of admission: 02/25/18 18:29 Primary care physician: Peter Carlson MD Discharging clinician: Tonny Egan Anticipated date of discharge: 03/02/18 - Constitutional Vitals: Temp Pulse Resp BP Pulse Ox 97.9 F 50 18 122/56 94 03/02/18 07:27 03/02/18 07:27 03/02/18 07:27 03/02/18 07:27 03/02/18 07:27 General appearance: Present: cooperative, A&O X 3, pleasant, no acute distress, answers questions appropriately - Head Head exam: Present: atraumatic, normocephalic - Eye Eye exam: Present: PERRL, conjuntiva pink, sclera anicteric Pupils: Present: PERRL - Neck Neck exam general surgery: Present: supple, trachea midline. Absent: lymphadenopathy - Respiratory Respiratory exam: Present: CTAB. Absent: accessory muscle use, rales, rhonchi, wheezes - Cardiovascular Cardiovascular exam: Present: RRR, +S1, +S2. Absent: diastolic murmur, gallop, rubs, systolic murmur - GI/Abdominal GI/Abdominal exam: Present: normal bowel sounds, soft, no peritoneal signs. Absent: distended, tenderness - Extremities Exam Extremities exam: Present: warm, radial pulses palpable and symmetrical. Absent : calf tenderness, cyanotic, pedal edema - Neurological Exam Neurological exam: Present: CN II-XII intact, oriented X3, no focal deficits. Absent: pronater drift, facial droop, speech deficit - Skin Skin exam: Present: dry, intact - Patient Status Disposition: Home, Self-Care Condition: Fair Overall status at discharge: patient is progressing back to baseline - Discharge Instructions Follow Up With: Peter Carlson MD [Primary Care Provider] - 03/15/18 4:00 pm
[2018-03-02 11:48] VITALS: BP 135/65
--- NOTE | 2018-03-02 12:16 | Physician Discharge Referral ---
Home Health/Hosp Referral Info Transfer to: Home Health Provider in Charge Post Discharge: PCP - Diagnosis (1) Pneumonia Priority: Primary Status: Acute (2) CAD (coronary artery disease) Priority: Secondary Status: Chronic (3) Diabetes Priority: Secondary Status: Chronic (4) Atrial fibrillation Priority: Secondary Status: Chronic (5) Nasopharyngeal cancer Priority: Secondary Status: Chronic (6) Hypertension Priority: Secondary Status: Chronic (7) Hypothyroidism, unspecified Priority: Secondary Status: Chronic (8) DVT prophylaxis Priority: Secondary Status: Acute - Respiratory Orders Oxygen / L per min (2 L per trach mask when necessary and at night) Smoking Cessation: Smoking cessation has been advised. For more information, call the [place] Tobacco Quit Line at 5-663-UIXU-NOW. - Diet/Nutrition Diet/Nutrition Orders: Regular - Activity Activity Orders: Up ad trang, Ambulate - Services Needed Following services are medically necessary services: Home Health Aide - Transfer Medications Prescriptions: Levofloxacin [Levaquin] 750 mg PO DAILY 2 Days #2 tablet Levothyroxine Sodium [Synthroid] 250 mcg PO QAM #30 tablet Home Medications: Omeprazole [PriLOSEC] 20 mg PO QAM 06/11/15 [History] Tamsulosin [Flomax] 0.4 mg PO QAM 06/11/15 [History] Lisinopril 10 mg PO BID 08/10/15 [History] Insulin Glargine,Hum.rec.anlog [Lantus Solostar] 22 unit SQ HS 12/09/15 [History ] Acetaminophen/Butalbital/Caffe [Fioricet] 1 tab PO DAILY PRN 05/14/17 [History] Gabapentin [Neurontin] 100 mg PO HS 05/14/17 [History] Aspirin Enteric Coated [Aspirin EC] 81 mg PO DAILY 08/17/17 [History] Atorvastatin Calcium [Lipitor] 80 mg PO HS 08/17/17 [History] Nitroglycerin 0.4 mg SL Q5MIN PRN #14 tab.subl 08/22/17 [Rx] BuPROPion XL (24 HR) [Wellbutrin Xl] 150 mg PO DAILY 12/16/17 [History] Cyclobenzaprine HCl 5 mg PO HS 12/16/17 [History] Ezetimibe [Zetia] 10 mg PO DAILY 12/16/17 [History] Metformin HCl [Metformin HCl ER] 500 mg PO DAILY 12/16/17 [History] Sertraline [Zoloft] 100 mg PO DAILY 12/16/17 [History] Topiramate [Topamax] 50 mg PO HS 12/16/17 [History] amLODIPine [Norvasc] 5 mg PO DAILY 12/16/17 [History] OxyCODONE/APAP 10/325 [Percocet 10/325 MG] 1 each PO Q6HR PRN 14 Days #56 tablet 01/08/18 [Rx] Ciprofloxacin [Cipro] 750 mg PO BID 01/31/18 [History] Metoprolol [Lopressor] 25 mg PO BID 02/25/18 [History] Multivit-Min/FA/Lycopen/Lutein [Adults 50+ Multivitamin Tablet] 1 tab PO DAILY 02/25/18 [History] Trazodone HCl 50 mg PO HS 02/25/18 [History] Warfarin [Coumadin] 7.5 mg PO MOWEFR 02/26/18 [History] Warfarin [Coumadin] 10 mg PO SUTUTHSA 02/26/18 [History] Levofloxacin [Levaquin] 750 mg PO DAILY 2 Days #2 tablet 03/02/18 [Rx] Levothyroxine Sodium [Synthroid] 250 mcg PO QAM #30 tablet 03/02/18 [Rx] Allergies/Adverse Reactions: 3 Allergy/AdvReac Type Severity Reaction Status Date / Time No Known Allergies Allergy Verified 02/26/18 08:29 Certification: Further, I certify that my clinical findings support that this patient is homebound (i.e. absences from home require considerable and taxing effort and are for medical reasons or holiness services or infrequently or short duration when for other reasons) because: Homebound Reason: Patient requires assistance of a person or device to safely leave home Attestation: My signature below is to certify that this patient is under my care and that I, or nurse practitioner, or a physician's assistant track and field coach working with me, has a face-to -face encounter with this patient.
[2018-03-02] MEDS ORDERED: Aminoglycoside Consult 1 EACH MC ONE (14:25)
== END 2018-03-02 14:26 | disposition home or self-care (01) | DRG 195 ==
LOC: EMEROO 11:32 → 3BNU 11:32
PROVIDERS: ADMIT Hospitalist; ATTEND Hospitalist

== ENCOUNTER 2018-03-28 13:03 | Observation (INO) ==
--- NOTE | 2018-03-28 13:18 | Emergency Department Note ---
Disposition Clinical Impression: TIA (transient ischemic attack) Qualifiers: Transient cerebral ischemia type: unspecified Qualified Code(s): G45.9 - Transient cerebral ischemic attack, unspecified Disposition: Admitted As Inpatient Condition: Good Time of Disposition: 17:18 General Adult HPI - General Chief complaint: ED Neuro Symptoms/Deficit Stated complaint: Shaking,hands and fingers numb Time Seen by Provider: 03/28/18 13:18 Nursing Notes Reviewed: Yes Vital Signs Reviewed: Yes - History of Present Illness HPI Narrative: Right-sided shakiness and hard time getting his hand his mouth during breakfast this morning. Now complaining of numbness in the tips of his fingers bilaterally. Mentating appropriately. Complains of a headache. No provoking or alleviating factors. No trauma. Symptoms seemed to have resolved somewhat on their own. Pain Scale: 7 - Related Data Home Medications Medication Instructions Recorded Confirmed Insulin Glargine,Hum.rec.anlog 22 unit SQ HS 12/09/15 03/28/18 [Lantus Solostar] Acetaminophen/Butalbital/Caffe 1 tab PO DAILY PRN 05/14/17 03/28/18 [Fioricet] Gabapentin [Neurontin] 100 mg PO HS 05/14/17 03/28/18 Aspirin Enteric Coated [Aspirin EC] 81 mg PO DAILY 08/17/17 03/28/18 Atorvastatin Calcium [Lipitor] 80 mg PO HS 08/17/17 03/28/18 BuPROPion XL (24 HR) [Wellbutrin 150 mg PO DAILY 12/16/17 03/28/18 Xl] Cyclobenzaprine HCl 5 mg PO HS 12/16/17 03/28/18 Ezetimibe [Zetia] 10 mg PO DAILY 12/16/17 03/28/18 Sertraline [Zoloft] 100 mg PO DAILY 12/16/17 03/28/18 Topiramate [Topamax] 50 mg PO HS 12/16/17 03/28/18 amLODIPine [Norvasc] 5 mg PO DAILY 12/16/17 03/28/18 Metoprolol [Lopressor] 25 mg PO BID 02/25/18 03/28/18 Multivit-Min/FA/Lycopen/Lutein 1 tab PO DAILY 02/25/18 03/28/18 [Adults 50+ Multivitamin Tablet] Trazodone HCl 50 mg PO HS 02/25/18 03/28/18 Warfarin [Coumadin] 7.5 mg PO MOWEFRSA 02/26/18 03/28/18 Warfarin [Coumadin] 10 mg PO SUTUTH 02/26/18 03/28/18 Lisinopril [Zestril] 10 mg PO BID 03/28/18 03/28/18 Metformin HCl [Glucophage] 1,000 mg PO DAILY 03/28/18 03/28/18 Omeprazole [PriLOSEC] 20 mg PO DAILY 03/28/18 03/28/18 Tamsulosin HCl [Flomax] 0.4 mg PO DAILY 03/28/18 03/28/18 Previous Rx's Medication Instructions Recorded Nitroglycerin 0.4 mg SL Q5MIN PRN #14 tab.subl 08/22/17 OxyCODONE/APAP 10/325 [Percocet 1 each PO Q6HR PRN 14 Days #56 01/08/18 10/325 MG] tablet Levothyroxine Sodium [Synthroid] 250 mcg PO QAM #30 tablet 03/02/18 Allergies Allergy/AdvReac Type Severity Reaction Status Date / Time No Known Allergies Allergy Verified 03/28/18 14:43 All systems ED: reviewed and negative except as stated. Constitutional: Denies: fever, chills Cardiovascular: Denies: chest pain, syncope Respiratory: Denies: cough, dyspnea Gastrointestinal: Denies: abdominal pain, nausea, vomiting, diarrhea Genitourinary: Denies: urgency, dysuria, frequency, hematuria Musculoskeletal: Denies: back pain, neck pain Integumentary: Denies: rash Neurological: Reports: headache, numbness (In the tips of his fingers bilaterally.). Denies: weakness Past Medical History - Past Medical History Attestation: Yes The following information was validated with the patient. Source: patient Medical history: Reports: atrial fibrillation, cancer, coronary artery disease, CVA, diabetes, hypertension, myocardial infarction, peripheral artery disease, SVT, thyroid disease Surgical history: Reports: angioplasty/stent, appendectomy, coronary bypass ( CABG), herniorrhaphy, LE vascular intervention, tracheostomy Psychiatric history: Reports: no psych history - Social History Smoking Status: Former smoker Smokeless Tobacco Status: No Alcohol use: Reports: none Drug use: Reports: none Physical Exam - General Limitations: no limitations General appearance: alert, in no apparent distress - Head Head exam: atraumatic, normocephalic, normal inspection - Eye Eye exam: Present: normal appearance, PERRL, EOMI. Absent: scleral icterus - ENT ENT exam: normal exam, normal oropharynx, mucous membranes moist - Neck Neck exam: Present: normal inspection, full ROM, trachea midline - Chest Chest inspection: Present: normal inspection, symmetric chest wall rise - Respiratory Respiratory exam: Present: normal lung sounds bilaterally. Absent: respiratory distress, accessory muscle use - Cardiovascular Cardiovascular exam: Present: regular rate, normal rhythm, normal heart sounds - Abdominal Exam Abdominal exam: Present: soft, Non-Tender. Absent: tenderness, distention, guarding, rebound, rigidity, organomegaly - Extremities Exam Extremities exam: Present: normal inspection, full ROM, other (Lower extremity weakness bilaterally.). Absent: tenderness, pedal edema - Back Exam Back exam: Present: normal inspection - Neurological Exam Neurological exam: Present: alert, oriented X3, CN II-XII intact, other (Good finger to nose.). Absent: motor sensory deficit - Psychiatric Psychiatric exam: Present: normal affect, normal mood - Skin Skin exam: Present: warm, dry, intact, normal color. Absent: rash, cyanosis, diaphoresis, erythema Course Course Narrative: Is a tumors primary complaining of headache. He states that he woke up normal this morning. Does have a history of strokes with a TIA approximately 8 months ago. Is on Coumadin at this time. also states he has a mass to the left occipital region. He was. A follow-up CT done this week and has not had that done yet. He states that he was eating breakfast around 9:00 whenever he noticed that his hand was shaking. He was unable to get is spinning to his mouth. This is since resolved. He now complains of a tingling sensation to bilateral fingers. He has good finger to nose. He is mentating appropriately. I do not appreciate any lateralizing deficits. He does have generalized weakness in his lower extremities. Heart sounds are normal lung sounds are clear abdomen is soft. He does report a right lower quadrant discomfort that has been present for several months. He denies any rectal bleeding at this time. It is CT of patient's head and basic lab workup. I anticipate admission. Patient has an NIH of 0. He is currently anticoagulated. With an INR of 2.5. - Reevaluation(s) Reevaluation #1: Head CT is normal. He still complains of a headache. We will provide him with Tylenol. We will admit him to the hospital. His 11 is 10.5 this is actually up from earlier this month at 8. Patient's symptoms of the shaking in his arm and weakness have since resolved. He states that he still has the numbness in his fingertips bilaterally. - Consultations Consultation #1: Dr bolden accepted Pt in stable condition. Time: 15:52 Vital Signs Temperature 99.4 F 03/28/18 13:05 Pulse Rate 69 03/28/18 13:05 Respiratory Rate 18 03/28/18 13:05 Blood Pressure 123/54 03/28/18 13:05 O2 Sat by Pulse Oximetry 92 03/28/18 13:05 Temperature 99.4 F 03/28/18 13:18 Pulse Rate 69 03/28/18 15:32 Respiratory Rate 10 03/28/18 16:12 Blood Pressure 106/59 03/28/18 16:12 O2 Sat by Pulse Oximetry 95 03/28/18 15:32 Oxygen Delivery Oxygen Delivery Room Air Medical Decision Making - Medical Records Medical records reviewed: Yes I reviewed the patient's medical records. - Lab Data Lab results reviewed: Yes I reviewed the patient's lab results. Result diagrams: 03/28/18 13:45 03/28/18 13:45 Lab Results 03/28/18 03/28/18 03/28/18 Range/Units 13:45 13:45 13:45 WBC 8.4 (4.3-11.1) K/mcL RBC 3.83 L (4.19-5.50) M/mcL Hgb 10.4 L (12.9-16.9) g/dL Hct 33.7 L (37.5-50.1) % MCV 88.0 (83.0-100.0) fL MCH 27.2 L (28.0-33.3) pg MCHC 30.9 L (31.6-35.5) g/dL RDW 14.6 H (11.5-14.5) % Plt Count 227 (140-400) K/mcL MPV 9.8 (9.4-12.4) fL Immature Gran % 0.2 (0-4) % Seg Neutrophils % 69.2 % Lymphocytes % 11.9 % Monocytes % 9.5 % Eosinophils % 8.8 % Basophils % 0.4 % Neutrophils # 5.8 (1.6-8.9) K/mcL Lymphocytes # 1.0 (0.6-4.6) K/mcL Monocytes # 0.8 (0.0-1.3) K/mcL Eosinophils # 0.7 H (0.0-0.6) K/mcL Basophils # 0.0 (0.0-0.2) K/mcL PT 27.9 H (9.4-12.1) Seconds INR 2.5 APTT 40.0 H (26.0-36.0) Seconds Sodium 136 (136-145) mEq/L Potassium 4.9 (3.5-5.1) mEq/L Chloride 104 (98-107) mEq/L Carbon Dioxide 26 (23-29) mEq/L BUN 29 H (8-23) mg/dL Creatinine 1.16 (0.70-1.30) mg/dL Est GFR ( Amer) > 60 (> 60) Est GFR (Non-Af Amer) > 60 (> 60) BUN/Creatinine Ratio 25 (6-26) Glucose 172 H (70-105) mg/dL Calculated Osmolality 292 (280-300) Calcium 9.1 (8.6-10.3) mg/dL Troponin I < 0.03 (< 0.04) ng/mL - Radiology Data Radiology results reviewed: Yes I reviewed the patient's radiology results. Head CT 03/28/18 13:28 IMPRESSION: 1. No acute intracranial abnormality. 2. Diffuse cerebral atrophy with chronic small vessel ischemic disease. 3. Old small right occipital lobe infarct. D/ / Oral Davis MD / Oral Davis MD Interpreting Provider: Oral Davis MD - EKG Data EKG #1 EKG attestation: Yes I reviewed and interpreted this EKG. EKG results narrative: Normal sinus rhythm at a rate of 63. [place] interval is 183. QRS duration is 136. QT is 485. QTC is 493. No signs of acute ischemia. Baseline artifact. No significant change from previous EKG dated 11/15/2016.
[2018-03-28 13:59] LABS: Basophils % 0.4 %; Eosinophils # 0.7 K/mcL (0.0-0.6); Eosinophils % 8.8 %; Hematocrit 33.7 % (37.5-50.1); Hemoglobin 10.4 g/dL (12.9-16.9); Immature Granulocytes % 0.2 % (0-4); Lymphocytes % 11.9 %; Mean Corpuscular HGB Conc 30.9 g/dL (31.6-35.5); Mean Corpuscular Hemoglobin 27.2 pg (28.0-33.3); Mean Platelet Volume 9.8 fL (9.4-12.4); Monocytes # 0.8 K/mcL (0.0-1.3); Monocytes % 9.5 %; Neutrophils # 5.8 K/mcL (1.6-8.9); Platelet Count 227 K/mcL (140-400); Red Blood Count 3.83 M/mcL (4.19-5.50); Red Cell Distribution Width 14.6 % (11.5-14.5); Segmented Neutrophils % 69.2 %
[2018-03-28 14:07] LABS: INR 2.5; Prothrombin Time 27.9 Seconds (9.4-12.1)
[2018-03-28 14:19] LABS: Troponin I < 0.03 ng/mL (< 0.04)
[2018-03-28 14:40] LABS: BUN/Creatinine Ratio 25 (6-26); Blood Urea Nitrogen 29 mg/dL (8-23); Calcium 9.1 mg/dL (8.6-10.3); Carbon Dioxide 26 mEq/L (23-29); Chloride 104 mEq/L (98-107); Glucose 172 mg/dL (70-105); Osmolality,Calculated 292 (280-300); Potassium 4.9 mEq/L (3.5-5.1); Sodium 136 mEq/L (136-145); eGFR For African Americans > 60 (> 60); eGFR For Non-African Americans > 60 (> 60)
[2018-03-28] MEDS ORDERED: Acetaminophen 325 MG TABLET PO ONE (15:39)
--- NOTE | 2018-03-28 16:51 | Electrocardiograph Report ---
[facility] Test Date: 2018-03-28 Pat Name: Jordi Salmeron Department: 103 Room: 3B13 Gender: M Machine Hand: ARDEN : 1940 Requested By: Bernabe Holcomb Order Number: [id number] Reading MD: Peter Carlson Measurements Intervals [place] Rate: 57 P: 77 OK: 199 QRS: -22 QRSD: 108 T: -14 QT: 415 QTc: 410 Interpretive Statements SINUS BRADYCARDIA INFERIOR MYOCARDIAL INFARCTION Electronically Signed On 03-28-2018 16:49:23 EDT by Peter Carlson
[2018-03-28] MEDS ORDERED: *HR* OxyCODONE/APAP 10/325 TABLET PO PRN (17:36)
[2018-03-28] MEDS ORDERED: Dextrose Gel 15 GM/37.5 ML TUBE PO PRN ×2 (17:45)
[2018-03-28] MEDS ORDERED: *HR* Dextrose 50 % in Water (Syg) 50 ML SYRINGE IVP PRN (17:45)
[2018-03-28] MEDS ORDERED: D5% in Water 1,000 ML IVC PRN (17:45)
[2018-03-28] MEDS ORDERED: Naloxone 0.4 MG/ML INJ IVP PRN (17:46)
--- NOTE | 2018-03-28 17:48 | Internal Med History&Physical ---
Date of Encounter: 03/28/18 Time of Encounter: 17:17 Internal Medicine - H&P: HPI Chief complaint: "Hands shaking" Admitted From: Emergency Dept Plans for Post Hospital Care: Home History of present illness: Mr. Salmeron is a 77 year old male who presented to ED today with 1-day history of "hands shaking." He states that he woke up this morning with tremors, and had difficult time holding utensils. He has a previous history of strokes. He attests to some prior numbness and tingling in BUE. He denies any weakness. He denies any focal neurological deficits. He has been compliant with all medication. He has a mild headache. He denies fever, chills, chest pain, SOB, nausea, vomiting, abdominal pain, changes in bladder, and changes in bowels. He has some mild BLE edema. He denies any difficulty walking. In the ED, NIH score was zero. He is on coumadin with INR 2.5. CT head showed no acute intracranial abnormality; diffuse cerebral atrophy with chronic small vessel ischemic disease; and old small right occipital lobe infarct. At the time of my evaluation, BUE symptoms are greatly improved, but still with some tremulousness and numbness. Past Med Surg Social Fam HX - Past Medical History Attestation: Yes The following information was validated with the patient. Source: patient Medical history: atrial fibrillation, cancer, coronary artery disease, CVA, diabetes, hypertension, myocardial infarction, peripheral artery disease, SVT, thyroid disease Additional medical history: nose cancer. trach Psychiatric history: no psych history - Past Surgical History Surgical History: angioplasty/stent, appendectomy, coronary bypass (CABG), herniorrhaphy, LE vascular intervention, tracheostomy Additional surgical history: BACK SURGERY, tracheostomy - Social History Smoking Status: Former smoker Smokeless Tobacco Status: No Alcohol use: none Drug use: none - Family History Mother Living Status: Hx Family Cardiac Disorders: No Hx Family Respiratory Disorders: No Hx Family Cancer: No Hx Family GI Disorders: No Hx Family Endocrine Disorder: No Hx Family Neuromuscular Disorders: No Hx Family Neurologic Disorders: No Hx Family HEENT Disorders: No Hx Family Autoimmune Disorders: No Father Living Status: Hx Family Cardiac Disorders: No Hx Family Respiratory Disorders: No Hx Family Cancer: No Hx Family GI Disorders: No Hx Family Endocrine Disorder: No Hx Family Neuromuscular Disorders: No Hx Family Neurologic Disorders: No Hx Family HEENT Disorders: No Hx Family Autoimmune Disorders: No Sister Living Status: Hx Family Cancer: Yes (lung cancer) - Additional Family History Additional family history: Family history reviewed with patient. Internal Medicine - H&P: Meds Insulin Glargine,Hum.rec.anlog [Lantus Solostar] 22 unit SQ HS 12/09/15 [History ] Acetaminophen/Butalbital/Caffe [Fioricet] 1 tab PO DAILY PRN 05/14/17 [History] Gabapentin [Neurontin] 100 mg PO HS 05/14/17 [History] Aspirin Enteric Coated [Aspirin EC] 81 mg PO DAILY 08/17/17 [History] Atorvastatin Calcium [Lipitor] 80 mg PO HS 08/17/17 [History] Nitroglycerin 0.4 mg SL Q5MIN PRN #14 tab.subl 08/22/17 [Rx] BuPROPion XL (24 HR) [Wellbutrin Xl] 150 mg PO DAILY 12/16/17 [History] Cyclobenzaprine HCl 5 mg PO HS 12/16/17 [History] Ezetimibe [Zetia] 10 mg PO DAILY 12/16/17 [History] Sertraline [Zoloft] 100 mg PO DAILY 12/16/17 [History] Topiramate [Topamax] 50 mg PO HS 12/16/17 [History] amLODIPine [Norvasc] 5 mg PO DAILY 12/16/17 [History] OxyCODONE/APAP 10/325 [Percocet 10/325 MG] 1 each PO Q6HR PRN 14 Days #56 tablet 01/08/18 [Rx] Metoprolol [Lopressor] 25 mg PO BID 02/25/18 [History] Multivit-Min/FA/Lycopen/Lutein [Adults 50+ Multivitamin Tablet] 1 tab PO DAILY 02/25/18 [History] Trazodone HCl 50 mg PO HS 02/25/18 [History] Warfarin [Coumadin] 7.5 mg PO MOWEFRSA 02/26/18 [History] Warfarin [Coumadin] 10 mg PO SUTUTH 02/26/18 [History] Levothyroxine Sodium [Synthroid] 250 mcg PO QAM #30 tablet 03/02/18 [Rx] Lisinopril [Zestril] 10 mg PO BID 03/28/18 [History] Metformin HCl [Glucophage] 1,000 mg PO DAILY 03/28/18 [History] Omeprazole [PriLOSEC] 20 mg PO DAILY 03/28/18 [History] Tamsulosin HCl [Flomax] 0.4 mg PO DAILY 03/28/18 [History] 3 Allergy/AdvReac Type Severity Reaction Status Date / Time No Known Allergies Allergy Verified 03/28/18 14:43 All Systems PM: A 10-system review of systems was performed and is negative for pertinent findings except as documented above in the HPI. - Constitutional Vitals: Temp Pulse Resp BP Pulse Ox 98.3 F 69 16 117/69 93 03/28/18 17:19 03/28/18 17:19 03/28/18 17:19 03/28/18 17:19 03/28/18 17:19 General appearance: Present: cooperative, A&O X 3, pleasant, no acute distress, answers questions appropriately - Head Head exam: Present: atraumatic, normal inspection, normocephalic - Eye Eye exam: Present: EOMI, PERRL. Absent: conjunctival injection, nystagmus, scleral icterus - ENT ENT exam: Present: mucous membranes moist, normal external ear exam, normal oropharynx - Neck Neck exam general surgery: Present: supple, trachea midline. Absent: lymphadenopathy, tenderness, thyromegaly - Respiratory Respiratory exam: Present: CTAB. Absent: accessory muscle use, rales, rhonchi, wheezes Additional comments: Normal WOB - Cardiovascular Cardiovascular exam: Present: RRR, +S1, +S2. Absent: diastolic murmur, gallop, rubs, systolic murmur Additional comments: No BLE edema - GI/Abdominal GI/Abdominal exam: Present: normal bowel sounds, soft. Absent: distended, hepatomegaly, mass, splenomegaly, tenderness - Neurological Exam Neurological exam: Present: alert, CN II-XII intact, oriented X3, no focal deficits, strengths equal and symetr throughout. Absent: motor sensory deficit , pronater drift, facial droop, speech deficit Additional comments: Intermittent tremulousness of hands - Psychiatric Psychiatric exam: Present: normal affect, normal mood. Absent: agitated, anxious, depressed - Skin Skin exam: Present: dry, intact, warm. Absent: cyanosis, rash Internal Med - H&P Results - Labs CBC & Chem 7: 03/28/18 13:45 03/28/18 13:45 - Assessment and plan (1) CVA (cerebral vascular accident) Current Visit: Yes Status: Suspected Assessment and plan: CVA vs TIA. Symptoms of BUE parasthesias and tremors. Admit for observation with telemetry. Obtain MRI brain, ECHO, and U/S carotids in AM. Consider neurology consult in AM based on results and symptoms. Neurochecks Q4H. NPO until evaluated by speech therapy. IVF until tolerating PO; monitor fluid status given CHF. PT/OT consulted. Continue home aspirin and warfarin ( managed by pharmacy). Permissive hypertension for now as per below. Continue home atorvastatin and zetia. Bedrest and fall precautions for now. Stroke education. Labwork in AM. Qualifiers: CVA mechanism: unspecified Qualified Code(s): I63.9 - Cerebral infarction, unspecified (2) TIA (transient ischemic attack) Current Visit: Yes Status: Suspected Assessment and plan: Management as per above. Qualifiers: Transient cerebral ischemia type: unspecified Qualified Code(s): G45.9 - Transient cerebral ischemic attack, unspecified (3) History of cerebrovascular accident (CVA) with residual deficit Current Visit: Yes Status: Chronic Assessment and plan: Management as per above. (4) CAD (coronary artery disease) Current Visit: Yes Status: Chronic Assessment and plan: Continue home medications. Continue telemetry. Hold antihypertensives as per below. Qualifiers: Coronary Disease-Associated Artery/Lesion type: bypass graft [place] vs. transplanted heart: [place] heart Associated angina: with stable angina Qualified Code(s): I25.708 - Atherosclerosis of coronary artery bypass graft(s) , unspecified, with other forms of angina pectoris (5) Hypertension Current Visit: Yes Status: Chronic Assessment and plan: Hypotensive at this time. Will allow for permissive hypertension. Hold home antihypertensives for now. Qualifiers: Hypertension type: essential hypertension Qualified Code(s): I10 - Essential (primary) hypertension (6) Hypothyroidism, unspecified Current Visit: Yes Status: Chronic Assessment and plan: Continue home medications. Recheck TSH in AM. Qualifiers: Hypothyroidism type: other Qualified Code(s): E03.8 - Other specified hypothyroidism (7) Type 2 diabetes mellitus Current Visit: Yes Status: Chronic Assessment and plan: NPO until evaluated by speech therapy. Start accuchecks and SSI Q6H. Will restart home long-acting insulin once tolerating diet. Qualifiers: Diabetes mellitus supervisor wall mirror department insulin use: with supervisor wall mirror department use Diabetes mellitus complication status: with unspecified complications Qualified Code(s) : E11.8 - Type 2 diabetes mellitus with unspecified complications; Z79.4 - [facility] (current) use of insulin; Z79.4 - knowledge management advisor (current) use of insulin; Z79.4 - [facility] (current) use of insulin; Z79.4 - knowledge management advisor (current) use of insulin (8) Chronic congestive heart failure Current Visit: Yes Status: Chronic Assessment and plan: Euvolemic on examination. Continue home medications. Holding antihypertensives for now as per below. Qualifiers: Heart failure type: unspecified Qualified Code(s): I50.9 - Heart failure, unspecified (9) DVT prophylaxis Current Visit: Yes Status: Acute Assessment and plan: Continue home coumadin managed by pharmacy. Start SCDs. - Time Spent With Patient Total time spent is greater than 50% in coordination of care (as documented) at patient's floor/unit and/or counseling patient: less than 15 minutes
[2018-03-28] MEDS: 0.9 % Sodium Chloride 1,000 ML IVC SCH (18:50)
[2018-03-28] MEDS: (Ezetimibe [Zetia] 10 MG) PO SCH (18:54)
[2018-03-28] MEDS: Aspirin Enteric Coated 81 MG Tablet PO SCH (18:54)
[2018-03-28] MEDS: Insulin LISPRO 300 UNITS/3 ML VIAL SQ SCH (18:55)
[2018-03-28] MEDS: Multivit/Ca/Min/Fe/FA 1 TAB TABLET PO SCH (18:55)
[2018-03-28] MEDS: BuPROPion XL (24 HR) 150 MG TABLET PO SCH (18:55)
[2018-03-28] MEDS: Acetaminophen/Butalbital/CaffeineTABLET PO PRN (19:50)
[2018-03-28] MEDS: Topiramate 25 MG TABLET PO SCH (19:51)
[2018-03-28] MEDS: traZODone 50 MG TABLET PO SCH (19:51)
[2018-03-28] MEDS: Gabapentin 100 MG CAPSULE PO SCH (19:51)
[2018-03-29] MEDS: Insulin LISPRO 300 UNITS/3 ML VIAL SQ SCH ×4 (00:17→17:04)
[2018-03-29 05:58] LABS: Basophils % 0.5 %; Eosinophils # 0.8 K/mcL (0.0-0.6); Eosinophils % 12.4 %; Hematocrit 32.5 % (37.5-50.1); Hemoglobin 9.8 g/dL (12.9-16.9); Immature Granulocytes % 0.5 % (0-4); Lymphocytes % 16.7 %; Mean Corpuscular HGB Conc 30.2 g/dL (31.6-35.5); Mean Corpuscular Hemoglobin 26.8 pg (28.0-33.3); Mean Corpuscular Volume 88.8 fL (83.0-100.0); Mean Platelet Volume 10.8 fL (9.4-12.4); Monocytes # 0.7 K/mcL (0.0-1.3); Monocytes % 10.5 %; Neutrophils # 3.7 K/mcL (1.6-8.9); Platelet Count 234 K/mcL (140-400); Red Blood Count 3.66 M/mcL (4.19-5.50); Red Cell Distribution Width 14.6 % (11.5-14.5); Segmented Neutrophils % 59.4 %
[2018-03-29 06:01] LABS: INR 2.8; Prothrombin Time 31.2 Seconds (9.4-12.1)
[2018-03-29 06:15] LABS: Troponin I < 0.03 ng/mL (< 0.04)
[2018-03-29 06:16] LABS: Alanine Aminotransferase 21 Units/L (7-52); Albumin 3.1 g/dL (3.5-5.7); Alkaline Phosphatase 78 Units/L (34-104); Aspartate Amino Transferase 19 Units/L (13-39); BUN/Creatinine Ratio 26 (6-26); Bilirubin,Total 0.6 mg/dL (0.3-1.0); Blood Urea Nitrogen 28 mg/dL (8-23); Carbon Dioxide 26 mEq/L (23-29); Chloride 106 mEq/L (98-107); Cholesterol 112 mg/dL (< 200); Globulin 3.1 g/dL (2.4-3.5); Glucose 102 mg/dL (70-105); HDL Cholesterol 28 mg/dL (40-59); LDL Cholesterol,Calculated 56 mg/dL (0-99); Osmolality,Calculated 292 (280-300); Potassium 4.7 mEq/L (3.5-5.1); Sodium 138 mEq/L (136-145); Total Protein 6.2 g/dL (6.4-8.9); Triglycerides 141 mg/dL (< 150); eGFR For African Americans > 60 (> 60); eGFR For Non-African Americans > 60 (> 60)
[2018-03-29 06:26] LABS: Thyroid Stimulating Hormone 0.059 mcIU/mL (0.340-5.600)
[2018-03-29] MEDS: 0.9 % Sodium Chloride 1,000 ML IVC SCH ×2 (08:44→23:34)
[2018-03-29] MEDS: (Ezetimibe [Zetia] 10 MG) PO SCH (08:45)
[2018-03-29] MEDS: Multivit/Ca/Min/Fe/FA 1 TAB TABLET PO SCH (08:45)
[2018-03-29] MEDS: Aspirin Enteric Coated 81 MG Tablet PO SCH (08:45)
[2018-03-29] MEDS: BuPROPion XL (24 HR) 150 MG TABLET PO SCH (08:45)
--- NOTE | 2018-03-29 08:51 | Internal Med Progress Note ---
Date of Encounter: 03/29/18 Time of Encounter: 08:49 - Assessment and plan (1) CVA (cerebral vascular accident) Current Visit: Yes Status: Suspected Assessment and plan: CVA vs TIA. Presented with S/sx of BUE tremulousness Prior history of CVA No focal neurological deficits on my examination. 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 MRI brain pending completion TTE-08/18/17 with LVEF 55%, no wall motion abnormalities, atrial or valvular defects or PFO noted at that time; obtain TTE today Bilateral carotid Dopplers reveal increased and right ICA stenosis-prior right ICA stenosis 40-59%, now 60-79% Continue frequent neuro checks Patient taking aspirin, warfarin, statin and Zetia, continue these medications Lipid panel this morning unremarkable Consider neurological consult depending on results of echo and MRI Qualifiers: CVA mechanism: unspecified Qualified Code(s): I63.9 - Cerebral infarction, unspecified (2) Hypothyroidism, unspecified Current Visit: Yes Status: Chronic Assessment and plan: Iatrogenic 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 Will allow for permissive HTN for now with concern of CVA versus TIA Continue to Hold home antihypertensives for now Follow MRI this afternoon; if MRI negative for ischemia resume anti-HTN meds Qualifiers: Hypertension type: essential hypertension Qualified Code(s): I10 - Essential (primary) hypertension (4) CAD (coronary artery disease) Current Visit: Yes Status: Chronic Assessment and plan: Resume cardiac meds Hold anti-HTN medications Qualifiers: Coronary Disease-Associated Artery/Lesion type: bypass graft [place] vs. transplanted heart: [place] heart Associated angina: with stable angina Qualified Code(s): I25.708 - Atherosclerosis of coronary artery bypass graft(s) , unspecified, with other forms of angina pectoris (5) History of cerebrovascular accident (CVA) with residual deficit Current Visit: Yes Status: Chronic Assessment and plan: See above (6) TIA (transient ischemic attack) Current Visit: Yes Status: Suspected Assessment and plan: See above Qualifiers: Transient cerebral ischemia type: unspecified Qualified Code(s): G45.9 - Transient cerebral ischemic attack, unspecified (7) Type 2 diabetes mellitus Current Visit: Yes Status: Chronic Assessment and plan: NPO until evaluated by speech therapy Continue every 6 hours Accu-Cheks and SSIC Continue basal insulin when patient able to eat awaiting rec from speech therapy Qualifiers: Diabetes mellitus correction insulin use: with correction use Diabetes mellitus complication status: with unspecified complications Qualified Code(s) : E11.8 - Type 2 diabetes mellitus with unspecified complications; Z79.4 - [employer] (current) use of insulin; Z79.4 - residential (current) use of insulin; Z79.4 - residential (current) use of insulin; Z79.4 - [employer] driver (current) use of insulin (8) Chronic congestive heart failure Current Visit: Yes Status: Chronic Assessment and plan: History of CHF Not in acute exacerbation Euvolemic on exam Continue to monitor for s/sx of volume overload Qualifiers: Heart failure type: unspecified Qualified Code(s): I50.9 - Heart failure, unspecified (9) Anemia Current Visit: Yes Status: Acute Assessment and plan: Chronic normocytic, hypochromic anemia likely nutritional Hemoglobin and hematocrit stable No obvious bleeding noted, patient denies any hematemesis, hematochezia, melena Continue to monitor H&H Qualifiers: Anemia type: unspecified type Qualified Code(s): D64.9 - Anemia, unspecified (10) DVT prophylaxis Current Visit: Yes Status: Acute Assessment and plan: Warfarin, SCDs. - Time Spent With Patient Total time spent is greater than 50% in coordination of care (as documented) at patient's floor/unit and/or counseling patient: 25 - 35 minutes - Subjective Interval history: Patient seen and examined at bedside today. No acute changes overnight. Continuing to report intermittent tremulousness of bilateral upper extremities - Constitutional Vitals: Temp Pulse Resp BP Pulse Ox 97.9 F 77 18 152/73 97 06/14/18 07:57 03/29/18 07:57 03/29/18 07:57 03/29/18 07:57 03/29/18 07:57 General appearance: Present: cooperative, A&O X 3, pleasant, no acute distress, answers questions appropriately - Head Head exam: Present: atraumatic, normocephalic - Eye Eye exam: Present: PERRL, conjuntiva pink, sclera anicteric Pupils: Present: PERRL - Neck Neck exam general surgery: Present: supple, trachea midline. Absent: lymphadenopathy - Respiratory Respiratory exam: Present: CTAB. Absent: accessory muscle use, rales, rhonchi, wheezes - Cardiovascular Cardiovascular exam: Present: RRR, +S1, +S2. Absent: diastolic murmur, gallop, rubs, systolic murmur - GI/Abdominal GI/Abdominal exam: Present: normal bowel sounds, soft, no peritoneal signs. Absent: distended, tenderness - Extremities Exam Extremities exam: Present: warm, radial pulses palpable and symmetrical. Absent : calf tenderness, cyanotic, pedal edema - Neurological Exam Neurological exam: Present: CN II-XII intact, oriented X3, no focal deficits. Absent: pronater drift, facial droop, speech deficit Additional comments: Nonfocal neurological exam, no tetany, muscle spasms or hyperreflexia noted. Mild BUE tremulousness - Skin Skin exam: Present: dry, intact Internal Medicine: Result - Labs CBC & Chem 7: 03/29/18 05:27 03/29/18 05:27 Labs: Short CBC 03/29/18 Range/Units 05:27 WBC 6.2 (4.3-11.1) K/mcL Hgb 9.8 L (12.9-16.9) g/dL Hct 32.5 L (37.5-50.1) % Plt Count 234 (140-400) K/mcL Neutrophils # 3.7 (1.6-8.9) K/mcL BMP 03/29/18 05:27 Sodium 138 Potassium 4.7 Chloride 106 Carbon Dioxide 26 BUN 28 H Creatinine 1.06 Glucose 102 Calcium 9.0 Cardiac Enzymes 03/29/18 Range/Units 05:27 Troponin I < 0.03 (< 0.04) ng/mL Liver Function 03/29/18 Range/Units 05:27 Total Bilirubin 0.6 (0.3-1.0) mg/dL AST 19 (13-39) Units/L ALT 21 (7-52) Units/L Alkaline Phosphatase 78 (34-104) Units/L Albumin 3.1 L (3.5-5.7) g/dL - ABG Interpretation ABG results: PT/INR, D-dimer PT 31.2 Seconds (9.4-12.1) H 03/29/18 05:27 Consult Discharge Plan - Plan Referrals: Peter Carlson MD [Primary Care Provider] -
[2018-03-29] MEDS: Acetaminophen/Butalbital/CaffeineTABLET PO PRN (14:09)
[2018-03-29 16:07] LABS: Estimated Average Glucose 157 mg/dl; Hemoglobin A1C 7.1 %
[2018-03-29] MEDS ORDERED: *HR* Warfarin 10 MG TABLET PO SCH (18:00)
[2018-03-29] MEDS ORDERED: Insulin DETEMIR 100 UNIT/ML X5UNITS SQ SCH (21:00)
[2018-03-29] MEDS ORDERED: Insulin LISPRO 300 UNITS/3 ML VIAL SQ SCH (21:00)
[2018-03-29] MEDS: Gabapentin 100 MG CAPSULE PO SCH (21:21)
[2018-03-29] MEDS: traZODone 50 MG TABLET PO SCH (21:22)
[2018-03-29] MEDS: Topiramate 25 MG TABLET PO SCH (21:22)
[2018-03-30 04:41] LABS: Hematocrit 31.9 % (37.5-50.1); Hemoglobin 9.8 g/dL (12.9-16.9)
[2018-03-30] MEDS: Insulin LISPRO 300 UNITS/3 ML VIAL SQ SCH ×2 (07:57→11:22)
[2018-03-30] MEDS: (Ezetimibe [Zetia] 10 MG) PO SCH (07:58)
[2018-03-30] MEDS: Multivit/Ca/Min/Fe/FA 1 TAB TABLET PO SCH (08:10)
[2018-03-30] MEDS: BuPROPion XL (24 HR) 150 MG TABLET PO SCH (08:10)
[2018-03-30] MEDS: Aspirin Enteric Coated 81 MG Tablet PO SCH (08:10)
[2018-03-30 08:24] LABS: INR 2.8; Prothrombin Time 31.1 Seconds (9.4-12.1)
[2018-03-30 09:12] LABS: Bilirubin,Urine Negative (Negative); Blood,Urine Negative (Negative); Clarity,Urine Cloudy (Clear); Color,Urine Yellow (Yellow); Glucose,Urine (UA) Normal (Normal); Ketones,Urine Negative (Negative); Leukocyte Esterase,Urine Large (Negative); Nitrite,Urine Negative (Negative); Protein,Urine Negative (Neg-Trace); Specific Gravity,Urine 1.013 (1.010-1.025); Urobilinogen,Urine Normal (Normal)
--- NOTE | 2018-03-30 09:13 | Internal Med Progress Note ---
Date of Encounter: 03/30/18 Time of Encounter: 09:10 - Assessment and plan (1) CVA (cerebral vascular accident) Current Visit: Yes Status: Ruled-out Assessment and plan: CVA vs TIA. Presented with S/sx of BUE tremulousness and myoclonus in both BUE and BLE Prior history of CVA; on aspirin, zetia, statin and warfarin No focal neurological deficits on my examination. MRI brain negative for acute infarct TTE-08/18/17 with LVEF 55%, no wall motion abnormalities, atrial or valvular defects or PFO noted at that time; obtain TTE today Bilateral carotid Dopplers reveal increased and right ICA stenosis-prior right ICA stenosis 40-59%, now 60-79% Lipid panel unremarkable Consult neurology for further evaluation and recommendations Qualifiers: CVA mechanism: unspecified Qualified Code(s): I63.9 - Cerebral infarction, unspecified (2) Hypothyroidism, unspecified Current Visit: Yes Status: Chronic Assessment and plan: Iatrogenic hypothyroidism 2/2 cancer treatment There is some concern that his tremulousness and restlessness is caused by his current levothyroxine dose TSH is 0.059, free T4 2 0.04 His Synthroid dose was decreased to 4 weeks ago due to hyperthyroidism with high -dose of Synthroid use Dose was decreased from 300 g daily to 250 g daily Decrease Synthroid dose to 150 g daily Patient will need to follow-up with PCP to follow TSH and free T4 level and adjust thyroid medication as necessary Qualifiers: Hypothyroidism type: other Qualified Code(s): E03.8 - Other specified hypothyroidism (3) Hypertension Current Visit: Yes Status: Chronic Assessment and plan: History of HTN, blood pressure 137/66 this a.m Resume anti-HTN medications Qualifiers: Hypertension type: essential hypertension Qualified Code(s): I10 - Essential (primary) hypertension (4) CAD (coronary artery disease) Current Visit: Yes Status: Chronic Assessment and plan: Continue cardiac meds Qualifiers: Coronary Disease-Associated Artery/Lesion type: bypass graft [place] vs. transplanted heart: [place] heart Associated angina: with stable angina Qualified Code(s): I25.708 - Atherosclerosis of coronary artery bypass graft(s) , unspecified, with other forms of angina pectoris (5) History of cerebrovascular accident (CVA) with residual deficit Current Visit: Yes Status: Chronic Assessment and plan: See above (6) Type 2 diabetes mellitus Current Visit: Yes Status: Chronic Assessment and plan: H/O DM2 Diabetic mechanically altered diet with supplementation Blood glucose remained stable Continue current insulin regimen Qualifiers: Diabetes mellitus shelter insulin use: with exterminator use Diabetes mellitus complication status: with unspecified complications Qualified Code(s) : E11.8 - Type 2 diabetes mellitus with unspecified complications; Z79.4 - care home (current) use of insulin; Z79.4 - care home (current) use of insulin; Z79.4 - care home (current) use of insulin; Z79.4 - care home (current) use of insulin (7) Chronic congestive heart failure Current Visit: Yes Status: Chronic Assessment and plan: History of CHF Not in acute exacerbation Remains Euvolemic on exam 03/30/18 Continue to monitor for s/sx of volume overload Qualifiers: Heart failure type: unspecified Qualified Code(s): I50.9 - Heart failure, unspecified (8) Anemia Current Visit: Yes Status: Acute Assessment and plan: Chronic normocytic, hypochromic anemia likely nutritional Hemoglobin and hematocrit stable throughout stay patient reports no obvious bleeding, denies any hematemesis, hematochezia, melena Qualifiers: Anemia type: unspecified type Qualified Code(s): D64.9 - Anemia, unspecified (9) DVT prophylaxis Current Visit: Yes Status: Acute Assessment and plan: Continue Warfarin, INR 2.8, continue SCDs. - Time Spent With Patient Total time spent is greater than 50% in coordination of care (as documented) at patient's floor/unit and/or counseling patient: 25 - 35 minutes - Subjective Interval history: Patient seen and examined at bedside today. No acute changes overnight. Continuing to report intermittent tremulousness and myoclonus - Constitutional Vitals: Temp Pulse Resp BP Pulse Ox 99.7 F H 92 18 137/66 94 03/30/18 07:31 03/30/18 07:31 03/30/18 07:31 03/30/18 07:31 03/30/18 07:31 General appearance: Present: cooperative, A&O X 3, pleasant, no acute distress, answers questions appropriately - Head Head exam: Present: atraumatic, normocephalic - Eye Eye exam: Present: PERRL, conjuntiva pink, sclera anicteric Pupils: Present: PERRL - Neck Neck exam general surgery: Present: supple, trachea midline. Absent: lymphadenopathy - Respiratory Respiratory exam: Present: CTAB. Absent: accessory muscle use, rales, rhonchi, wheezes - Cardiovascular Cardiovascular exam: Present: RRR, +S1, +S2. Absent: diastolic murmur, gallop, rubs, systolic murmur - GI/Abdominal GI/Abdominal exam: Present: normal bowel sounds, soft, no peritoneal signs. Absent: distended, tenderness - Extremities Exam Extremities exam: Present: warm, radial pulses palpable and symmetrical. Absent : calf tenderness, cyanotic, pedal edema - Neurological Exam Neurological exam: Present: CN II-XII intact, oriented X3, no focal deficits. Absent: pronater drift, facial droop, speech deficit Additional comments: Tremulousness bilateral upper extremities with intermittent myoclonus, mild clonus noted in bilateral lower extremities as well - Skin Skin exam: Present: dry, intact Internal Medicine: Result - Labs CBC & Chem 7: 03/30/18 04:27 03/29/18 05:27 Labs: Short CBC 03/30/18 Range/Units 04:27 Hgb 9.8 L (12.9-16.9) g/dL Hct 31.9 L (37.5-50.1) % - ABG Interpretation ABG results: PT/INR, D-dimer PT 31.1 Seconds (9.4-12.1) H 03/30/18 08:03 - Impressions Impressions Brain MRI 03/29/18 17:31 IMPRESSION: Cerebral atrophy. Moderate to severe chronic small vessel ischemic changes. Remote lacunar infarcts in the basal ganglia and left thalamus. Remote right occipital lobe infarct and cerebellar infarcts. No acute infarct is identified. There is low marrow signal in the clivus which is a nonspecific finding. A marrow infiltrative process cannot be entirely excluded. D/ / 03/29/2018 14:57:39 Stacey Donovan MD / [facility] Interpreting Provider: Stacey Donovan MD Consult Discharge Plan - Plan Referrals: Peter Carlson MD [Primary Care Provider] - 04/06/18 9:45 am ()
[2018-03-30 09:14] LABS: Bacteria,Urine Moderate per hpf (None-Few); Hyaline Casts,Urine None Seen per lpf (None-Few); Squamous Epithelial Cell,Urine None Seen per lpf (None-Few); WBC,Urine 50-100 per hpf (0-3)
[2018-03-30] MEDS ORDERED: amLODIPine 5 MG TABLET PO SCH (09:30)
--- NOTE | 2018-03-30 11:24 | Neurology - Consult Note ---
<YumikojenniferAv - Last Filed: 03/30/18 12:16> Date of Encounter: 03/30/18 Time of Encounter: 11:15 Assessment and Plan (1) Jerking movements of extremities Current Visit: Yes Status: Acute 77 yo M with recent onset of "tremors" and jerking movements of his Bilateral upper extremities. He also reports feeling like he's falling backwards when sitting up and patient had to be supported when testing patient's lower extremities with patient sitting on edge of the bed. patient is an incomplete historian is unclear if his memory of his symptoms and their onset is 100% accurate. Patient denies residual deficits from prior CVA but documentation reveals patient has residual R sided weakness confirmed on exam. Patient found to be hyperthyroid here in the hospital. Patient on 250mcg upon admission. 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 Differential diagnosis: Hyperthyroidism vs. essential tremor vs. residual from old infarcts. Recommendation: Manage patient's hyperthyroidism Can follow up out patient if tremors persist after correction of thyroid levels. History of Present Illness HPI: Mr. Salmeron is a 77 year old male c PMHx of atrial fibrillation, ENT cancer s/p trach, coronary artery disease, CVA, diabetes, hypertension, myocardial infarction, peripheral artery disease, SVT, thyroid disease reports to [facility] c/o few days of tremor in B/L UEs. Patient also reports unsteadiness when sitting feeling like he's going to fall backwards. He reports he had a prior CVA but denies residual deficits from that stroke. 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 He is on synthroid for thyrid replacement. In March it was noted his level was high and they began to lower his dose of synthroid. He denies having any symptoms at that time. He was evaluated in the ED for these symptoms. His Neuro exam at that time was non-focal with good finger to nose b/l and the tremor had stopped at that time. CT head showed: " No acute intracranial abnormality. Diffuse cerebral atrophy with chronic small vessel ischemic disease. Old small right occipital lobe infarct." Patient was admitted to the hospitalist for work up of possible CVA vs. TIA. Patient had an MRI Brain which showed: "Cerebral atrophy. Moderate to severe chronic small vessel ischemic changes. Remote lacunar infarcts in the basal ganglia and left thalamus. Remote right occipital lobe infarct and cerebellar infarcts. No acute infarct is identified." ECHO which showed: "LVEF 55-60% .Mild to moderate concentric left ventricular hypertrophy.RV appears dilated on this study with normal function.No evidence of PFO with agitated saline contrast. All wall segments showed normal motion." Cartoid Duplex which showed: "The right internal carotid artery has a 60-79% stenosis. The left internal carotid artery has a 60-79% stenosis." Patient had a CTA head and neck in december of 2017 which showed: " Right vertebral artery is not seen and likely occluded. Multifocal atherosclerotic change in the carotid arteries bilaterally with multifocal proximal internal carotid artery narrowing as described above. Similar findings were present on the prior. Multifocal arterial narrowing in the head is again noted, greatest in the right posterior cerebral artery. Findings not appear significantly changed." Per chart review patient has chronic RLE weakness. Patient denies headache, blurry vision, focal weakness, numbness or tingling, chest pain, SOB, abd pain, nausea, vomiting. Past Med Surg Social Fam HX - Past Medical History Medical history: atrial fibrillation, cancer, coronary artery disease, CVA, diabetes, hypertension, myocardial infarction, peripheral artery disease, SVT, thyroid disease Additional medical history: nose cancer. trach Psychiatric history: no psych history - Past Surgical History Surgical History: angioplasty/stent, appendectomy, coronary bypass (CABG), herniorrhaphy, LE vascular intervention, tracheostomy Additional surgical history: BACK SURGERY, tracheostomy - Social History Smoking Status: Former smoker Smokeless Tobacco Status: No Alcohol use: none Drug use: none - Family History Mother Living Status: Hx Family Cardiac Disorders: No Hx Family Respiratory Disorders: No Hx Family Cancer: No Hx Family GI Disorders: No Hx Family Endocrine Disorder: No Hx Family Neuromuscular Disorders: No Hx Family Neurologic Disorders: No Hx Family HEENT Disorders: No Hx Family Autoimmune Disorders: No Father Living Status: Hx Family Cardiac Disorders: No Hx Family Respiratory Disorders: No Hx Family Cancer: No Hx Family GI Disorders: No Hx Family Endocrine Disorder: No Hx Family Neuromuscular Disorders: No Hx Family Neurologic Disorders: No Hx Family HEENT Disorders: No Hx Family Autoimmune Disorders: No Sister Living Status: Hx Family Cancer: Yes (lung cancer) Medications and Allergies Insulin Glargine,Hum.rec.anlog [Lantus Solostar] 22 unit SQ HS 12/09/15 [History ] Acetaminophen/Butalbital/Caffe [Fioricet] 1 tab PO DAILY PRN 05/14/17 [History] Gabapentin [Neurontin] 100 mg PO HS 05/14/17 [History] Aspirin Enteric Coated [Aspirin EC] 81 mg PO DAILY 08/17/17 [History] Atorvastatin Calcium [Lipitor] 80 mg PO HS 08/17/17 [History] Nitroglycerin 0.4 mg SL Q5MIN PRN #14 tab.subl 08/22/17 [Rx] BuPROPion XL (24 HR) [Wellbutrin Xl] 150 mg PO DAILY 12/16/17 [History] Cyclobenzaprine HCl 5 mg PO HS 12/16/17 [History] Ezetimibe [Zetia] 10 mg PO DAILY 12/16/17 [History] Sertraline [Zoloft] 100 mg PO DAILY 12/16/17 [History] Topiramate [Topamax] 50 mg PO HS 12/16/17 [History] amLODIPine [Norvasc] 5 mg PO DAILY 12/16/17 [History] OxyCODONE/APAP 10/325 [Percocet 10/325 MG] 1 each PO Q6HR PRN 14 Days #56 tablet 01/08/18 [Rx] Metoprolol [Lopressor] 25 mg PO BID 02/25/18 [History] Multivit-Min/FA/Lycopen/Lutein [Adults 50+ Multivitamin Tablet] 1 tab PO DAILY 02/25/18 [History] Trazodone HCl 50 mg PO HS 02/25/18 [History] Warfarin [Coumadin] 7.5 mg PO MOWEFRSA 02/26/18 [History] Warfarin [Coumadin] 10 mg PO SUTUTH 02/26/18 [History] Levothyroxine Sodium [Synthroid] 250 mcg PO QAM #30 tablet 03/02/18 [Rx] Lisinopril [Zestril] 10 mg PO BID 03/28/18 [History] Metformin HCl [Glucophage] 1,000 mg PO DAILY 03/28/18 [History] Omeprazole [PriLOSEC] 20 mg PO DAILY 03/28/18 [History] Tamsulosin HCl [Flomax] 0.4 mg PO DAILY 03/28/18 [History] 3 Allergy/AdvReac Type Severity Reaction Status Date / Time No Known Allergies Allergy Verified 03/28/18 14:43 All Systems: The remainder of the systems were reviewed and are negative Review of Systems: As per HPI Physical Examination - Vital Signs Vital Signs: Initial Vital Signs Temp Pulse Resp BP Pulse Ox 99.4 F 69 18 123/54 92 03/28/18 13:05 03/28/18 13:05 03/28/18 13:05 03/28/18 13:05 03/28/18 13:05 - Constitutional General appearance: comfortable, chronically ill - Neurologic Motor examination - right side: 4/5: biceps, tibialis Anterior, quadriceps, 5/5 : deltoids, triceps, wrist extension, compo caster, toe extension (EHL), plantarflexion Motor examination - left side: 5/5: deltoids, biceps, triceps, wrist flexion, wrist extension, hip flexors, compo caster, quadriceps, tibialis Anterior, toe extension (EHL), plantarflexion Detailed sensory examination: intact, light touch Reflexes: Biceps: 1+, Triceps: 1+, Brachioradialis: 1+, Patella: 3+ Mental Status Examination: awake, alert, oriented to person, oriented to place, oriented to time, follows commands appropriately, answers questions appropriately, no aphasia Cranial nerve examination: PERRL, EOMI, sensory to face intact, no facial asymmetry is present, no dysarthria, hearing is intact symmetrically, soft palate elevates bilaterally upon phonation, flexes SCM and trapezius muscles symmetrically with full power, tongue protrudes midline, no atrophy or facial fasiculations present Cerebellar examination: no dysmetria, performs finger to nose and heel to merrill symmetrically without ataxia (patient ) Ataxia: truncal ataxia (Patient falls backwards when sitting on edge of the bed had to be supported to test Lower extremities) Tremor: left upper extremity (BLE upper extremity jerking movements during posturing. No jerks or tremors at rest or on movement.) Results - Laboratory Findings CBC and BMP: 03/30/18 04:27 03/29/18 05:27 Abnormal lab findings: Abnormal lab results RBC 3.66 M/mcL (4.19-5.50) L 03/29/18 05:27 Hgb 9.8 g/dL (12.9-16.9) L 03/30/18 04:27 Hct 31.9 % (37.5-50.1) L 03/30/18 04:27 MCH 26.8 pg (28.0-33.3) L 03/29/18 05:27 MCHC 30.2 g/dL (31.6-35.5) L 03/29/18 05:27 RDW 14.6 % (11.5-14.5) H 03/29/18 05:27 Eosinophils # 0.8 K/mcL (0.0-0.6) H 03/29/18 05:27 PT 31.1 Seconds (9.4-12.1) H 03/30/18 08:03 APTT 40.0 Seconds (26.0-36.0) H 03/28/18 13:45 BUN 28 mg/dL (8-23) H 03/29/18 05:27 Hemoglobin A1c 7.1 % (-5.6) H 03/29/18 05:27 B-Natriuretic Peptide 276 pg/mL (Less than 100) H 03/29/18 05:27 Serum Total Protein 6.2 g/dL (6.4-8.9) L 03/29/18 05:27 Albumin 3.1 g/dL (3.5-5.7) L 03/29/18 05:27 Albumin/Globulin Ratio 1.0 (1.1-2.2) L 03/29/18 05:27 HDL Cholesterol 28 mg/dL (40-59) L 03/29/18 05:27 TSH 0.059 mcIU/mL (0.340-5.600) L 03/29/18 05:27 Free T4 2.04 ng/dl (0.70-2.00) H 03/29/18 05:27 Urine Clarity Cloudy (Clear) A 03/30/18 08:35 Ur Leukocyte Esterase Large (Negative) H 03/30/18 08:35 Urine Microscopic RBC 3-5 per hpf (0-3) H 03/30/18 08:35 Urine Microscopic WBC 50-100 per hpf (0-3) H 03/30/18 08:35 Urine Bacteria Moderate per hpf (None-Few) H 03/30/18 08:35 Consult Discharge Plan - Plan Instructions: Heart Failure (DC) Additional Instructions: Follow-up appointments: If there is not an appointment listed below, please call your physician and schedule a follow-up appointment. If you have congestive heart failure and your symptoms return, make an appointment with your physician. Medication List: Carry an up to date list of medications you are taking at all time. We have given you an updated medication list including any new medications that you have been prescribed. Please provide that list to your primary provider Symptoms: If your condition changes or you experience any of the following symptoms, notify your physician immediately: Unusual or worsening pain, fever, persistent nausea and vomiting, bleeding, increase in swelling (especially in your legs), sudden weight gain, extreme dizziness, chest pain, increased drainage or redness from a wound or incision. Go to the emergency department if you experience a problem with breathing. Weights: If you have a history of swelling or shortness of breath, weigh yourself daily and notify your physician if you have a weight gain of two or more pounds in one day or 5 or more pounds in a week. If you experience any of the warning signs for stroke: Sudden numbness or weakness of the face, arm or leg; especially on one side of the body, sudden confusion, trouble speaking or understanding, sudden trouble seeing in one or both eyes, sudden trouble walking, dizziness, loss of balance or coordination, sudden sever headache with no cause; Call 911 or go to the emergency room. Stroke is a medical emergency. Some risk factors for stroke: Age, cigarette smoking, diabetes, excessive alcohol consumption, family history , high blood pressure, overweight, physical inactivity, prior stroke, heart attack, diagnosis of carotid artery stenosis or other artery disease. If you smoke, STOP: Smoking or tobacco use significantly increases your risk of heart and lung disease. Your chance of disease greatly increases if you continue to smoke. For more information, call the [place] tobacco quit line for smoking cessation - QUIT-NOW ( ) Referrals: Peter Carlson MD [Primary Care Provider] - 04/06/18 9:45 am () <Bernabe Lantigua E - Last Filed: 03/30/18 15:20> Date of Encounter: 03/30/18 Time of Encounter: 15:12 Assessment and Plan (1) Jerking movements of extremities Current Visit: Yes Status: Acute I agree with Dr. Russell's assessment as stated above. The abnormal movements are already improving. I would not expect a primary movement disorder to wax and wane in its presence. I see no other evidence of metabolic derangement, or medication effect I would expect to present in this manner. I agree with the decision to changes thyroid medication therapy. I will reevaluate him at your request. History of Present Illness HPI: The chart was reviewed, the patient was seen and examined this afternoon along with Dr. Russell. I did do my own independent examination and assessment. I agree with his assessment of the history as stated above. All Systems: The remainder of the systems were reviewed and are negative Review of Systems: The balance of the systems review is unremarkable. Physical Examination - Vital Signs Vital Signs: Initial Vital Signs Temp Pulse Resp BP Pulse Ox 99.4 F 69 18 123/54 92 03/28/18 13:05 03/28/18 13:05 03/28/18 13:05 03/28/18 13:05 03/28/18 13:05 - Neurologic Tremor: left upper extremity Results - Laboratory Findings CBC and BMP: 03/30/18 04:27 03/29/18 05:27 Abnormal lab findings: Abnormal lab results RBC 3.66 M/mcL (4.19-5.50) L 03/29/18 05:27 Hgb 9.8 g/dL (12.9-16.9) L 03/30/18 04:27 Hct 31.9 % (37.5-50.1) L 03/30/18 04:27 MCH 26.8 pg (28.0-33.3) L 03/29/18 05:27 MCHC 30.2 g/dL (31.6-35.5) L 03/29/18 05:27 RDW 14.6 % (11.5-14.5) H 03/29/18 05:27 Eosinophils # 0.8 K/mcL (0.0-0.6) H 03/29/18 05:27 PT 31.1 Seconds (9.4-12.1) H 03/30/18 08:03 APTT 40.0 Seconds (26.0-36.0) H 03/28/18 13:45 BUN 28 mg/dL (8-23) H 03/29/18 05:27 Hemoglobin A1c 7.1 % (-5.6) H 03/29/18 05:27 B-Natriuretic Peptide 276 pg/mL (Less than 100) H 03/29/18 05:27 Serum Total Protein 6.2 g/dL (6.4-8.9) L 03/29/18 05:27 Albumin 3.1 g/dL (3.5-5.7) L 03/29/18 05:27 Albumin/Globulin Ratio 1.0 (1.1-2.2) L 03/29/18 05:27 HDL Cholesterol 28 mg/dL (40-59) L 03/29/18 05:27 TSH 0.059 mcIU/mL (0.340-5.600) L 03/29/18 05:27 Free T4 2.04 ng/dl (0.70-2.00) H 03/29/18 05:27 Urine Clarity Cloudy (Clear) A 03/30/18 08:35 Ur Leukocyte Esterase Large (Negative) H 03/30/18 08:35 Urine Microscopic RBC 3-5 per hpf (0-3) H 03/30/18 08:35 Urine Microscopic WBC 50-100 per hpf (0-3) H 03/30/18 08:35 Urine Bacteria Moderate per hpf (None-Few) H 03/30/18 08:35
[2018-03-30 16:02] VITALS: BP 131/67
--- NOTE | 2018-03-30 16:40 | Discharge Summary ---
- NOTES TO OUTPATIENT PROVIDER Notes to Outpatient Provider: Routine hospital follow-up Orders not resulted at time of discharge: Pending orders 03/31/18 04:00 PT/INR [Prothrombin Time INR] [COAG] AM 0400 04/01/18 04:00 PT/INR [Prothrombin Time INR] [COAG] AM 0400 04/02/18 04:00 PT/INR [Prothrombin Time INR] [COAG] AM 0400 Date of Encounter: 03/30/18 Time of Encounter: 16:37 - Discharge Diagnosis (1) CVA (cerebral vascular accident) Priority: Primary Status: Ruled-out Assessment and Plan: CVA vs TIA. Presented with S/sx of BUE tremulousness and myoclonus in both BUE and BLE Prior history of CVA; on aspirin, zetia, statin and warfarin No focal neurological deficits on my examination. MRI brain negative for acute infarct TTE-08/18/17 with LVEF 55%, no wall motion abnormalities, atrial or valvular defects or PFO noted at that time; obtain TTE today Bilateral carotid Dopplers reveal increased and right ICA stenosis-prior right ICA stenosis 40-59%, now 60-79% Lipid panel unremarkable Rule out stroke/TIA Symptoms likely caused by hyperthyroidism Differential diagnosis includes hyperthyroidism, residual of old infarcts, or essential tremor Neurology has seen the patient in consultation recommends outpatient follow-up Uneventful hospital course. Medically stable and ready for discharge. Instructed to follow-up with PCP within 1 week of discharge. Also, informed to return to the ED should symptoms return or worsen. Patient verbalizes understanding. Denies any further questions or concerns. 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 There is some concern that his tremulousness and restlessness is caused by his current levothyroxine dose TSH is 0.059, free T4 2 0.04 His Synthroid dose was decreased to 4 weeks ago due to hyperthyroidism with high -dose of Synthroid use Dose was decreased from 300 g daily to 250 g daily Decrease Synthroid dose to 150 g daily Patient will need to follow-up with PCP to follow TSH and free T4 level and adjust thyroid medication as necessary Qualifiers: Hypothyroidism type: other Qualified Code(s): E03.8 - Other specified hypothyroidism (3) Hypertension Priority: Secondary Status: Chronic Assessment and Plan: History of HTN, blood pressure 137/66 this a.m Resume anti-HTN medications Qualifiers: Hypertension type: essential hypertension Qualified Code(s): I10 - Essential (primary) hypertension (4) CAD (coronary artery disease) Priority: Secondary Status: Chronic Assessment and Plan: Continue cardiac meds Qualifiers: Coronary Disease-Associated Artery/Lesion type: bypass graft [place] vs. transplanted heart: [place] heart Associated angina: with stable angina Qualified Code(s): I25.708 - Atherosclerosis of coronary artery bypass graft(s) , unspecified, with other forms of angina pectoris (5) History of cerebrovascular accident (CVA) with residual deficit Priority: Secondary Status: Chronic Assessment and Plan: See above (6) Type 2 diabetes mellitus Priority: Secondary Status: Chronic Assessment and Plan: H/O DM2 Diabetic mechanically altered diet with supplementation Blood glucose remained stable Continue current insulin regimen Qualifiers: Diabetes mellitus long-term insulin use: with long-term use Diabetes mellitus complication status: with unspecified complications Qualified Code(s) : E11.8 - Type 2 diabetes mellitus with unspecified complications; Z79.4 - intermediate accountant (current) use of insulin; Z79.4 - prison (current) use of insulin; Z79.4 - intermediate accountant (current) use of insulin; Z79.4 - intermediate accountant (current) use of insulin (7) Chronic congestive heart failure Priority: Secondary Status: Chronic Assessment and Plan: History of CHF Not in acute exacerbation Remains Euvolemic on exam 03/30/18 Continue to monitor for s/sx of volume overload Qualifiers: Heart failure type: unspecified Qualified Code(s): I50.9 - Heart failure, unspecified (8) Anemia Priority: Secondary Status: Acute Assessment and Plan: Chronic normocytic, hypochromic anemia likely nutritional Hemoglobin and hematocrit stable throughout stay patient reports no obvious bleeding, denies any hematemesis, hematochezia, melena Qualifiers: Anemia type: unspecified type Qualified Code(s): D64.9 - Anemia, unspecified (9) Hyperthyroidism Priority: Primary Status: Acute Assessment and Plan: History of hypothyroidism 2/2 CANCER TREATMENT However, patient has hyperthyroidism during this stay due to high doses of Synthroid See further assessment and planning above Hospital course: Mr. Salmeron is a 77 year old male Please see assessment and plan for hospital course Discharge discussed with: patient, family, nurse, case management, wardrobe consultant - Time Spent with Patient Total time spent providing and/or coordinating discharge services: Less than 30 minutes - Discharge Medications Prescriptions: Levothyroxine [Synthroid] 150 mcg PO DAILY 30 Days #30 tablet Home Medications: Insulin Glargine,Hum.rec.anlog [Lantus Solostar] 22 unit SQ HS 12/09/15 [History ] Acetaminophen/Butalbital/Caffe [Fioricet] 1 tab PO DAILY PRN 05/14/17 [History] Gabapentin [Neurontin] 100 mg PO HS 05/14/17 [History] Aspirin Enteric Coated [Aspirin EC] 81 mg PO DAILY 08/17/17 [History] Atorvastatin Calcium [Lipitor] 80 mg PO HS 08/17/17 [History] Nitroglycerin 0.4 mg SL Q5MIN PRN #14 tab.subl 08/22/17 [Rx] BuPROPion XL (24 HR) [Wellbutrin Xl] 150 mg PO DAILY 12/16/17 [History] Cyclobenzaprine HCl 5 mg PO HS 12/16/17 [History] Ezetimibe [Zetia] 10 mg PO DAILY 12/16/17 [History] Sertraline [Zoloft] 100 mg PO DAILY 12/16/17 [History] Topiramate [Topamax] 50 mg PO HS 12/16/17 [History] amLODIPine [Norvasc] 5 mg PO DAILY 12/16/17 [History] OxyCODONE/APAP 10/325 [Percocet 10/325 MG] 1 each PO Q6HR PRN 14 Days #56 tablet 01/08/18 [Rx] Metoprolol [Lopressor] 25 mg PO BID 02/25/18 [History] Multivit-Min/FA/Lycopen/Lutein [Adults 50+ Multivitamin Tablet] 1 tab PO DAILY 02/25/18 [History] Trazodone HCl 50 mg PO HS 02/25/18 [History] Warfarin [Coumadin] 7.5 mg PO MOWEFRSA 02/26/18 [History] Warfarin [Coumadin] 10 mg PO SUTUTH 02/26/18 [History] Lisinopril [Zestril] 10 mg PO BID 03/28/18 [History] Metformin HCl [Glucophage] 1,000 mg PO DAILY 03/28/18 [History] Omeprazole [PriLOSEC] 20 mg PO DAILY 03/28/18 [History] Tamsulosin HCl [Flomax] 0.4 mg PO DAILY 03/28/18 [History] Levothyroxine [Synthroid] 150 mcg PO DAILY 30 Days #30 tablet 03/30/18 [Rx] Allergies/Adverse Reactions: 3 Allergy/AdvReac Type Severity Reaction Status Date / Time No Known Allergies Allergy Verified 03/28/18 14:43 Date of admission: 03/28/18 15:59 Primary care physician: Peter Carlson MD Consults: 03/28/18 17:31 Consult to Lay Out Maker [CONS] Routine Reason for SW Consult: Discharge planning 03/28/18 17:32 Consult for Pharmacy Education [CONS] Stat Reason for Consult: Coumadin Dosing Call Completed: No Consult to Occupational Therapy [CONS] Routine Comment: Evaluate, develop and implement POC Reason for Consult: CVA vs TIA. Please evaluate, treat, and determine rehab needs. Thanks. Does patient have active BEDREST order?: Yes Is patient medically & hemodynamically stable?: Yes Patient assessed for mobility or mobilized this visit?: No Consult to Physical Therapy [CONS] Routine Comment: Evaluate, develop and implement POC Reason for Consult: CVA vs TIA. Please evaluate, treat, and determine rehab needs. Thanks. Does patient have active BEDREST order?: Yes Is patient medically & hemodynamically stable?: Yes Patient assessed for mobility or mobilized this visit?: No 03/30/18 09:08 Consult to Neurology [CONS] Routine Consulting Provider: [facility] Reason for Consult: Tremulousness, myoclonus Time Notified: 09:09 Call Completed: Yes Discharging clinician: Tonny Egan Anticipated date of discharge: 03/30/18 - Constitutional Vitals: Temp Pulse Resp BP Pulse Ox 98.3 F 59 16 131/67 92 03/30/18 16:01 03/30/18 16:01 03/30/18 16:01 03/30/18 16:01 03/30/18 16:01 General appearance: Present: cooperative, A&O X 3, pleasant, no acute distress, answers questions appropriately - Head Head exam: Present: atraumatic, normocephalic - Eye Eye exam: Present: PERRL, conjuntiva pink, sclera anicteric Pupils: Present: PERRL - Neck Neck exam general surgery: Present: supple, trachea midline. Absent: lymphadenopathy - Respiratory Respiratory exam: Present: CTAB. Absent: accessory muscle use, rales, rhonchi, wheezes - Cardiovascular Cardiovascular exam: Present: RRR, +S1, +S2. Absent: diastolic murmur, gallop, rubs, systolic murmur - GI/Abdominal GI/Abdominal exam: Present: normal bowel sounds, soft, no peritoneal signs. Absent: distended, tenderness - Extremities Exam Extremities exam: Present: warm, radial pulses palpable and symmetrical. Absent : calf tenderness, cyanotic, pedal edema - Neurological Exam Neurological exam: Present: alert, CN II-XII intact, oriented X3, no focal deficits, strengths equal and symetr throughout. Absent: pronater drift, facial droop, speech deficit Additional comments: Continues to have intermittent clonus-like activity, however is improving. Neurological exam remains nonfocal - Skin Skin exam: Present: dry, intact - Patient Status Disposition: Home, Self-Care Condition: Good Functional capacity at discharge: independent ambulation Overall status at discharge: patient is progressing back to baseline - Discharge Instructions Instructions: Heart Failure (DC), Anemia (GEN), Hypothyroidism (DC) Follow Up With: Peter Carlson MD [Primary Care Provider] - 04/06/18 9:45 am () Additional Instructions: Follow-up appointments: If there is not an appointment listed below, please call your physician and schedule a follow-up appointment. If you have congestive heart failure and your symptoms return, make an appointment with your physician. Medication List: Carry an up to date list of medications you are taking at all time. We have given you an updated medication list including any new medications that you have been prescribed. Please provide that list to your primary provider Symptoms: If your condition changes or you experience any of the following symptoms, notify your physician immediately: Unusual or worsening pain, fever, persistent nausea and vomiting, bleeding, increase in swelling (especially in your legs), sudden weight gain, extreme dizziness, chest pain, increased drainage or redness from a wound or incision. Go to the emergency department if you experience a problem with breathing. Weights: If you have a history of swelling or shortness of breath, weigh yourself daily and notify your physician if you have a weight gain of two or more pounds in one day or 5 or more pounds in a week. If you experience any of the warning signs for stroke: Sudden numbness or weakness of the face, arm or leg; especially on one side of the body, sudden confusion, trouble speaking or understanding, sudden trouble seeing in one or both eyes, sudden trouble walking, dizziness, loss of balance or coordination, sudden sever headache with no cause; Call 911 or go to the emergency room. Stroke is a medical emergency. Some risk factors for stroke: Age, cigarette smoking, diabetes, excessive alcohol consumption, family history , high blood pressure, overweight, physical inactivity, prior stroke, heart attack, diagnosis of carotid artery stenosis or other artery disease. If you smoke, STOP: Smoking or tobacco use significantly increases your risk of heart and lung disease. Your chance of disease greatly increases if you continue to smoke. For more information, call the [place] tobacco quit line for smoking cessation 8 QUIT-NOW ( ) - Diet and Activity Activity: resume usual activities as tolerated Diet: advance to your usual diet
[2018-03-30] MEDS ORDERED: Warfarin perPT PO PRN (18:00)
[2018-03-30] MEDS ORDERED: *HR* Warfarin 7.5 MG TABLET PO SCH (18:00)
== END 2018-03-30 17:32 | disposition home or self-care (01) ==
LOC: EMEROO 13:03 → 3BNU 13:03
PROVIDERS: ADMIT Family Medicine; ATTEND Family Medicine

== ENCOUNTER 2018-04-11 13:23 | Inpatient (IN) ==
--- NOTE | 2018-04-11 14:23 | Emergency Department Note ---
Disposition Clinical Impression: Atrial fibrillation with RVR Afib Qualifiers: Atrial fibrillation type: unspecified Qualified Code(s): I48.91 - Unspecified atrial fibrillation Falls Qualifiers: Encounter type: initial encounter Qualified Code(s): W19.XXXA - Unspecified fall, initial encounter Headache Qualifiers: Headache type: unspecified Headache chronicity pattern: unspecified pattern Intractability: not intractable Qualified Code(s): R51 - Headache Disposition: Admitted As Inpatient Condition: Fair Referrals: Peter Carlson MD [Primary Care Provider] - Forms: ED Satisfaction Letter Time of Disposition: 15:08 General Adult HPI - General Chief complaint: ED Headache Stated complaint: "shaking, cant walk, fall" Time Seen by Provider: 04/11/18 13:36 Source: patient, family Mode of arrival: ambulatory Limitations: no limitations Nursing Notes Reviewed: Yes Vital Signs Reviewed: Yes - History of Present Illness HPI Narrative: 78-year-old male with history of A. fib on Coumadin, CHF, CAD, hypertension presents for evaluation of multiple complaints. Patient presents in the care of the family. 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 Family is concerned because the patient's had intermittent shaking over the past month and has had recurrent falls. Patient denies any loss of consciousness or head trauma but notes right-sided headache. Patient states he has had a history of a headache in the past. Patient denies any nausea vomiting. Patient denies any palpitations chest pain or dyspnea. No abdominal pain. Family states the patient has been taking his prescribed medications as directed. Family states that they are concerned about his multiple falls and does not have assistance at home. Patient is anticoagulated with Coumadin. Family states the patient has been dizzy. Pain Scale: 8 - Related Data Home Medications Medication Instructions Recorded Confirmed Insulin Glargine,Hum.rec.anlog 22 unit SQ HS 12/09/15 04/11/18 [Lantus Solostar] Acetaminophen/Butalbital/Caffe 1 tab PO DAILY PRN 05/14/17 04/11/18 [Fioricet] Gabapentin [Neurontin] 100 mg PO HS 05/14/17 04/11/18 Aspirin Enteric Coated [Aspirin EC] 81 mg PO DAILY 08/17/17 04/11/18 Atorvastatin Calcium [Lipitor] 80 mg PO HS 08/17/17 04/11/18 BuPROPion XL (24 HR) [Wellbutrin 150 mg PO DAILY 12/16/17 04/11/18 Xl] Cyclobenzaprine HCl 5 mg PO HS 12/16/17 04/11/18 Ezetimibe [Zetia] 10 mg PO DAILY 12/16/17 04/11/18 Sertraline [Zoloft] 100 mg PO DAILY 12/16/17 04/11/18 Topiramate [Topamax] 50 mg PO HS 12/16/17 04/11/18 amLODIPine [Norvasc] 5 mg PO DAILY 12/16/17 04/11/18 Metoprolol [Lopressor] 25 mg PO BID 02/25/18 04/11/18 Multivit-Min/FA/Lycopen/Lutein 1 tab PO DAILY 02/25/18 04/11/18 [Adults 50+ Multivitamin Tablet] Trazodone HCl 50 mg PO HS 02/25/18 04/11/18 Warfarin [Coumadin] 7.5 mg PO MOWEFRSA 02/26/18 04/11/18 Warfarin [Coumadin] 10 mg PO SUTUTH 02/26/18 04/11/18 Lisinopril [Zestril] 10 mg PO BID 03/28/18 04/11/18 Metformin HCl [Glucophage] 1,000 mg PO DAILY 03/28/18 04/11/18 Omeprazole [PriLOSEC] 20 mg PO DAILY 03/28/18 04/11/18 Tamsulosin HCl [Flomax] 0.4 mg PO DAILY 03/28/18 04/11/18 Previous Rx's Medication Instructions Recorded Nitroglycerin 0.4 mg SL Q5MIN PRN #14 tab.subl 08/22/17 OxyCODONE/APAP 10/325 [Percocet 1 each PO Q6HR PRN 14 Days #56 01/08/18 10/325 MG] tablet Levothyroxine [Synthroid] 150 mcg PO DAILY 30 Days #30 tablet 03/30/18 Allergies Allergy/AdvReac Type Severity Reaction Status Date / Time No Known Allergies Allergy Verified 04/11/18 15:17 All systems ED: reviewed and negative except as stated. Constitutional: Denies: fever Cardiovascular: Denies: chest pain Respiratory: Denies: cough, dyspnea Gastrointestinal: Denies: abdominal pain, nausea, vomiting Neurological: Reports: headache Past Medical History - Past Medical History Source: patient Medical history: Reports: atrial fibrillation, cancer, coronary artery disease, CVA, diabetes, hypertension, myocardial infarction, peripheral artery disease, SVT, thyroid disease Surgical history: Reports: angioplasty/stent, appendectomy, coronary bypass ( CABG), herniorrhaphy, LE vascular intervention, tracheostomy Psychiatric history: Reports: no psych history - Social History Smoking Status: Former smoker Smokeless Tobacco Status: No Alcohol use: Reports: none Drug use: Reports: none Physical Exam - General Limitations: no limitations General appearance: alert, in no apparent distress - Head Head exam: atraumatic, normocephalic, normal inspection - Eye Eye exam: Present: normal appearance, PERRL, EOMI, nystagmus (Horizontal Left beating) - ENT ENT exam: normal exam, mucous membranes moist, other (Functioning tracheostomy in place.) - Neck Neck exam: Present: normal inspection, trachea midline - Chest Chest inspection: Present: normal inspection - Respiratory Respiratory exam: Present: normal lung sounds bilaterally. Absent: respiratory distress - Cardiovascular Cardiovascular exam: Present: tachycardia, irregular rhythm. Absent: systolic murmur - Abdominal Exam Abdominal exam: Present: soft, Non-Tender - Extremities Exam Extremities exam: Present: normal inspection. Absent: pedal edema - Back Exam Back exam: Present: normal inspection - Neurological Exam Neurological exam: Present: alert, oriented X3, CN II-XII intact - Expanded Neurological Exam Patient oriented to: Present: person Speech: Present: fluid speech Cranial nerves: EOM function (II, III, IV, ): Normal, facial sensation (V): Normal, facial palsy (VII): Normal, spinal accessory function (XI): Normal, tongue deviation (XII): Normal Cerebellar function: finger to nose: Normal Motor strength - LUE: 5/5 Motor strength - RUE: 4/5 Motor strength - LLE: 5/5 Motor strength - RLE: 5/5 Coma Scale Eye Opening: Spontaneous Coma Scale Motor Response: Obeys Commands Coma Scale Verbal Response: Oriented Coma Scale Total: 15 - Skin Skin exam: Present: warm, dry, intact, normal color Course Course Narrative: Patient seen and examined. Patient does have A. fib RVR likely contributing to much of his symptoms. Given the history of recurrent falls patient will get a head CT as he is anticoagulated. Patient also get basic labs including lites lites troponin as well as EKG. Patient will likely require admission given his history of recurrent falls A. fib RVR with me on anti-coagulation. Patient's recent heart echo shows EF of 55-60% with mild to moderate LV dilation. - Reevaluation(s) Reevaluation #1: Patient's heart rate did respond with IV Lopressor. Given the patient's recurrent falls as well as A. fib RVR the patient will be admitted to the hospital service. Time: 15:18 Vital Signs Temperature 98.6 F 04/11/18 13:24 Pulse Rate 83 04/11/18 13:24 Respiratory Rate 18 04/11/18 13:24 Blood Pressure 111/50 04/11/18 13:24 O2 Sat by Pulse Oximetry 91 04/11/18 13:24 Temperature 98.6 F 04/11/18 14:28 Pulse Rate 83 04/11/18 14:28 Respiratory Rate 18 04/11/18 14:28 Blood Pressure 111/50 04/11/18 14:28 O2 Sat by Pulse Oximetry 93 04/11/18 14:28 Oxygen Delivery Oxygen Delivery Room Air Medical Decision Making - MDM Narrative Medical decision making narrative: Patient presents with history of A. fib. Patient was A. fib RVR with preserved blood pressure upon arrival. Patient family skin concerned about his recurrent falls and leg weaknesses. Patient also has some asymmetric right upper extremity weakness. Denies any specific head injury. Patient's family states that he is on Coumadin however the patient's subtherapeutic with his INR. Given the patient's history recurrent falls with presumed anticoagulation the patient had a CT scan which showed stable patient A. fib was improved after single dose of IV Lopressor. Patient denies any chest pain or shortness of breath or palpitations. Patient's chest x-rays also unremarkable. Negative troponin. Patient will be admitted to hospital service given the patient's abnormal vitals with concerns of an adequate healthcare and support at home and recurrent falls. We will need to address the patient's chance Vascor see does have a history of recurrent falls with A. fib. - Lab Data Lab results reviewed: Yes I reviewed the patient's lab results. Result diagrams: 04/11/18 14:27 04/11/18 14:27 Lab Results 04/11/18 04/11/18 04/11/18 Range/Units 14:18 14:27 14:27 WBC 8.6 (4.3-11.1) K/mcL RBC 4.91 (4.19-5.50) M/mcL Hgb 13.0 (12.9-16.9) g/dL Hct 42.3 (37.5-50.1) % MCV 86.2 (83.0-100.0) fL MCH 26.5 L (28.0-33.3) pg MCHC 30.7 L (31.6-35.5) g/dL RDW 14.5 (11.5-14.5) % Plt Count 348 (140-400) K/mcL MPV 10.3 (9.4-12.4) fL Immature Gran % 0.5 (0-4) % Seg Neutrophils % 74.6 % Lymphocytes % 13.3 % Monocytes % 7.9 % Eosinophils % 3.6 % Basophils % 0.1 % Neutrophils # 6.4 (1.6-8.9) K/mcL Lymphocytes # 1.1 (0.6-4.6) K/mcL Monocytes # 0.7 (0.0-1.3) K/mcL Eosinophils # 0.3 (0.0-0.6) K/mcL Basophils # 0.0 (0.0-0.2) K/mcL Immature Plt Fraction 3.4 (1.1-6.1) % PT 14.6 H (9.4-12.1) Seconds INR 1.3 Sodium 135 L (136-145) mEq/L Potassium 4.9 (3.5-5.1) mEq/L Chloride 103 (98-107) mEq/L Carbon Dioxide 27 (23-29) mEq/L BUN 22 (8-23) mg/dL Creatinine 1.06 (0.70-1.30) mg/dL Est GFR ( Amer) > 60 (> 60) Est GFR (Non-Af Amer) > 60 (> 60) BUN/Creatinine Ratio 21 (6-26) Glucose 123 H (70-105) mg/dL Calculated Osmolality 285 (280-300) Calcium 9.5 (8.6-10.3) mg/dL Troponin I < 0.03 (< 0.04) ng/mL - Radiology Data Radiology results reviewed: Yes I reviewed the patient's radiology results. Chest X-Ray 04/11/18 14:18 IMPRESSION: No acute cardiopulmonary abnormality. D/ / Darvin Quintanilla / Darvin Quintanilla Interpreting Provider: Darvin Quintanilla Head CT 04/11/18 14:19 IMPRESSION: Stable appearance of the brain with no acute intracranial abnormality. There is age-appropriate cerebral atrophy with evidence of chronic periventricular small vessel ischemic disease. D/ / Rex Rapp MD / Rex Rapp MD Interpreting Provider: Rex Rapp MD - EKG Data EKG #1 EKG attestation: Yes I reviewed and interpreted this EKG. Rate: tachycardia Rhythm: A.Fib [place]/QRS: left axis deviation Q waves: III, aVF When compared to previous EKG there are: changes noted Interpretation: nonspecific ST-T wave changes EKG #2 EKG attestation: Yes I reviewed and interpreted this EKG. Rate: tachycardia Rhythm: A.Fib [place]/QRS: left axis deviation Q waves: III, aVF When compared to previous EKG there are: changes noted Interpretation: nonspecific ST-T wave changes S.B.A.RMaria De Jesus - S.B.A.R. Situation: Demographics Background: Presenting Complaint Assessment: Vital Signs, Course and respsone to treatment, Patient/Family Expectation Recommendation: Barrier(s) to disposition, Recommendation based on pending studies, treatments, or consults S.B.A.RMaria De Jesus Report Given to: Dr. Kelsey Jimenez Repor Time: 15:38
[2018-04-11] MEDS ORDERED: *HR* Metoprolol 5 MG/5 ML VIAL IVP ONE (14:24)
[2018-04-11 14:30] LABS: Basophils % 0.1 %; Eosinophils # 0.3 K/mcL (0.0-0.6); Eosinophils % 3.6 %; Hematocrit 42.3 % (37.5-50.1); Immature Granulocytes % 0.5 % (0-4); Immature Platelets 3.4 % (1.1-6.1); Lymphocytes # 1.1 K/mcL (0.6-4.6); Lymphocytes % 13.3 %; Mean Corpuscular HGB Conc 30.7 g/dL (31.6-35.5); Mean Corpuscular Hemoglobin 26.5 pg (28.0-33.3); Mean Corpuscular Volume 86.2 fL (83.0-100.0); Mean Platelet Volume 10.3 fL (9.4-12.4); Monocytes # 0.7 K/mcL (0.0-1.3); Monocytes % 7.9 %; Neutrophils # 6.4 K/mcL (1.6-8.9); Platelet Count 348 K/mcL (140-400); Red Blood Count 4.91 M/mcL (4.19-5.50); Red Cell Distribution Width 14.5 % (11.5-14.5); Segmented Neutrophils % 74.6 %
[2018-04-11 14:42] LABS: BUN/Creatinine Ratio 21 (6-26); Blood Urea Nitrogen 22 mg/dL (8-23); Calcium 9.5 mg/dL (8.6-10.3); Carbon Dioxide 27 mEq/L (23-29); Chloride 103 mEq/L (98-107); Glucose 123 mg/dL (70-105); Osmolality,Calculated 285 (280-300); Potassium 4.9 mEq/L (3.5-5.1); Sodium 135 mEq/L (136-145); eGFR For African Americans > 60 (> 60); eGFR For Non-African Americans > 60 (> 60)
[2018-04-11 14:42] LABS: INR 1.3; Prothrombin Time 14.6 Seconds (9.4-12.1)
[2018-04-11 14:50] LABS: Troponin I < 0.03 ng/mL (< 0.04)
[2018-04-11] MEDS ORDERED: Acetaminophen 325 MG TABLET PO PRN (16:03)
[2018-04-11] MEDS ORDERED: Naloxone 0.4 MG/ML INJ IVP PRN (16:03)
--- NOTE | 2018-04-11 16:53 | Internal Med History&Physical ---
Date of Encounter: 04/11/18 Time of Encounter: 16:30 Internal Medicine - H&P: HPI Chief complaint: Generalized weakness, falls Admitted From: Emergency Dept Plans for Post Hospital Care: Home History of present illness: Mr. Salmeron is a 78 year old male patient with history of coronary artery disease status post CABG and stents, nasopharyngeal cancer status post trach, presented to the ER with complaints of recurrent falls. Patient reports lightheadedness and falling slowly onto the floor. He had 2-3 episodes over the past couple of days. He denies any chest pain but does have chronic back pain. No shortness of breath. No fever or chills. No dysuria. At baseline, patient self catheterizes. He has not noted any dysuria or pyuria. He does get occasional hematuria. He does have a history of atrial fibrillation and takes Coumadin. Patient was in rapid A. fib on arrival here and received IV metoprolol 5 mg. Since then his heart rate has been controlled Past Med Surg Social Fam HX - Past Medical History Attestation: Yes The following information was validated with the patient. Source: patient Medical history: atrial fibrillation, cancer, coronary artery disease, CVA, diabetes, hypertension, myocardial infarction, peripheral artery disease, SVT, thyroid disease Additional medical history: nose cancer. trach Psychiatric history: no psych history - Past Surgical History Surgical History: angioplasty/stent, appendectomy, coronary bypass (CABG), herniorrhaphy, LE vascular intervention, tracheostomy Additional surgical history: BACK SURGERY, tracheostomy - Social History Smoking Status: Former smoker Smokeless Tobacco Status: No Alcohol use: none Drug use: none - Family History Mother Living Status: Hx Family Cardiac Disorders: No Hx Family Respiratory Disorders: No Hx Family Cancer: No Hx Family GI Disorders: No Hx Family Endocrine Disorder: No Hx Family Neuromuscular Disorders: No Hx Family Neurologic Disorders: No Hx Family HEENT Disorders: No Hx Family Autoimmune Disorders: No Father Living Status: Hx Family Cardiac Disorders: No Hx Family Respiratory Disorders: No Hx Family Cancer: No Hx Family GI Disorders: No Hx Family Endocrine Disorder: No Hx Family Neuromuscular Disorders: No Hx Family Neurologic Disorders: No Hx Family HEENT Disorders: No Hx Family Autoimmune Disorders: No Sister Living Status: Hx Family Cancer: Yes (lung cancer) Internal Medicine - H&P: Meds Insulin Glargine,Hum.rec.anlog [Lantus Solostar] 22 unit SQ HS 12/09/15 [History ] Acetaminophen/Butalbital/Caffe [Fioricet] 1 tab PO DAILY PRN 05/14/17 [History] Gabapentin [Neurontin] 100 mg PO HS 05/14/17 [History] Aspirin Enteric Coated [Aspirin EC] 81 mg PO DAILY 08/17/17 [History] Atorvastatin Calcium [Lipitor] 80 mg PO HS 08/17/17 [History] Nitroglycerin 0.4 mg SL Q5MIN PRN #14 tab.subl 08/22/17 [Rx] BuPROPion XL (24 HR) [Wellbutrin Xl] 150 mg PO DAILY 12/16/17 [History] Cyclobenzaprine HCl 5 mg PO HS 12/16/17 [History] Ezetimibe [Zetia] 10 mg PO DAILY 12/16/17 [History] Sertraline [Zoloft] 100 mg PO DAILY 12/16/17 [History] Topiramate [Topamax] 50 mg PO HS 12/16/17 [History] amLODIPine [Norvasc] 5 mg PO DAILY 12/16/17 [History] OxyCODONE/APAP 10/325 [Percocet 10/325 MG] 1 each PO Q6HR PRN 14 Days #56 tablet 01/08/18 [Rx] Metoprolol [Lopressor] 25 mg PO BID 02/25/18 [History] Multivit-Min/FA/Lycopen/Lutein [Adults 50+ Multivitamin Tablet] 1 tab PO DAILY 02/25/18 [History] Trazodone HCl 50 mg PO HS 02/25/18 [History] Warfarin [Coumadin] 7.5 mg PO MOWEFRSA 02/26/18 [History] Warfarin [Coumadin] 10 mg PO SUTUTH 02/26/18 [History] Lisinopril [Zestril] 10 mg PO BID 03/28/18 [History] Metformin HCl [Glucophage] 1,000 mg PO DAILY 03/28/18 [History] Omeprazole [PriLOSEC] 20 mg PO DAILY 03/28/18 [History] Tamsulosin HCl [Flomax] 0.4 mg PO DAILY 03/28/18 [History] Levothyroxine [Synthroid] 150 mcg PO DAILY 30 Days #30 tablet 03/30/18 [Rx] 3 Allergy/AdvReac Type Severity Reaction Status Date / Time No Known Allergies Allergy Verified 04/11/18 15:17 All Systems PM: A 10-system review of systems was performed and is negative for pertinent findings except as documented above in the HPI. - Constitutional Constitutional: falls, malaise, no chills, no fever(s), no night sweats - EENT Eyes: no change in vision, no discharge, no pain, no photophobia Ears: no ear discharge, no ear pain, no tinnitus Nose, mouth and throat: no dysphagia, no nasal discharge, no neck pain, no sore throat - Cardiovascular Cardiovascular ROS IM: lightheadedness, no chest pain, no diaphoresis, no dyspnea, no palpitations, no syncope - Respiratory Respiratory: no cough, no dyspnea, no wheezing, no excessive phlegm production - Gastrointestinal Gastrointestinal: no abdominal pain, no diarrhea, no hematemesis, no hematochezia, no melena, no nausea, no vomiting - Musculoskeletal Musculoskeletal ROS IM: no numbness, no tingling - Integumentary Integumentary IM: no rash, no unusual bruising - Hematologic/Lymphatic Hematologic/Lymphatic: no easy bruising - Constitutional Vitals: Temp Pulse Resp BP Pulse Ox 98.6 F 83 14 99/68 93 04/11/18 14:28 04/11/18 14:28 04/11/18 16:26 04/11/18 16:26 04/11/18 14:28 General appearance: Present: cooperative, A&O X 3, pleasant, answers questions appropriately - Neck Additional comments: Tracheostomy in place - Respiratory Respiratory exam: Present: CTAB. Absent: accessory muscle use, rales, rhonchi, wheezes - Cardiovascular Cardiovascular exam: Present: irregular rhythm, +S1, +S2. Absent: diastolic murmur, gallop, rubs, systolic murmur - GI/Abdominal GI/Abdominal exam: Present: normal bowel sounds, soft, no peritoneal signs. Absent: distended, tenderness - Extremities Exam Extremities exam: Present: warm, radial pulses palpable and symmetrical. Absent : calf tenderness, cyanotic, pedal edema - Neurological Exam Neurological exam: Present: alert, oriented X3, no focal deficits. Absent: facial droop, speech deficit - Skin Skin exam: Present: dry, intact Internal Med - H&P Results - Labs CBC & Chem 7: 04/11/18 14:27 04/11/18 14:27 - Impressions Impressions Chest X-Ray 04/11/18 14:18 IMPRESSION: No acute cardiopulmonary abnormality. D/ / Darvin Quintanilla / Darvin Quintanilla Interpreting Provider: Darvin Quintanilla Head CT 04/11/18 14:19 IMPRESSION: Stable appearance of the brain with no acute intracranial abnormality. There is age-appropriate cerebral atrophy with evidence of chronic periventricular small vessel ischemic disease. D/ / Rex Rapp MD / Rex Rapp MD Interpreting Provider: Rex Rapp MD - Assessment and plan (1) Recurrent falls Current Visit: Yes Status: Acute Assessment and plan: Recurrent falls at home. Could be related to orthostasis and lightheadedness. Will check orthostatic blood pressure. Monitor vital signs closely. Consult PTOT name. (2) Atrial fibrillation Current Visit: Yes Status: Chronic Assessment and plan: Patient with A. fib. Initially in RVR. Improved after he received IV metoprolol. Will continue home medications. On Coumadin. Currently subtherapeutic. We will continue Coumadin. Qualifiers: Atrial fibrillation type: paroxysmal Qualified Code(s): I48.91 - Unspecified atrial fibrillation (3) CAD (coronary artery disease) Current Visit: Yes Status: Chronic Assessment and plan: Status post CABG. No chest pain at this time. Continue home medications. Qualifiers: Coronary Disease-Associated Artery/Lesion type: bypass graft [place] vs. transplanted heart: [place] heart Associated angina: with stable angina Qualified Code(s): I25.708 - Atherosclerosis of coronary artery bypass graft(s) , unspecified, with other forms of angina pectoris (4) Diabetes Current Visit: Yes Status: Chronic Assessment and plan: Monitor blood sugars. Sliding scale insulin. Diabetic diet. 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 Check orthostatics. Hold antihypertensives for systolic blood pressure less than 100. Qualifiers: Hypertension type: essential hypertension Qualified Code(s): I10 - Essential (primary) hypertension - Time Spent With Patient Total time spent is greater than 50% in coordination of care (as documented) at patient's floor/unit and/or counseling patient:
--- NOTE | 2018-04-11 17:02 | Emergency Department Note ---
Disposition Clinical Impression: Atrial fibrillation with RVR Afib Qualifiers: Atrial fibrillation type: unspecified Qualified Code(s): I48.91 - Unspecified atrial fibrillation Falls Qualifiers: Encounter type: initial encounter Qualified Code(s): W19.XXXA - Unspecified fall, initial encounter Headache Qualifiers: Headache type: unspecified Headache chronicity pattern: unspecified pattern Intractability: not intractable Qualified Code(s): R51 - Headache Disposition: Admitted As Inpatient Condition: Fair General Adult HPI - General Chief complaint: ED Headache Stated complaint: "shaking, cant walk, fall" Time Seen by Provider: 04/11/18 13:36 Source: patient, family Mode of arrival: ambulatory Limitations: no limitations - History of Present Illness Pain Scale: 2 - Related Data Home Medications Medication Instructions Recorded Confirmed Insulin Glargine,Hum.rec.anlog 22 unit SQ HS 12/09/15 04/11/18 [Lantus Solostar] Acetaminophen/Butalbital/Caffe 1 tab PO DAILY PRN 05/14/17 04/11/18 [Fioricet] Gabapentin [Neurontin] 100 mg PO HS 05/14/17 04/11/18 Aspirin Enteric Coated [Aspirin EC] 81 mg PO DAILY 08/17/17 04/11/18 Atorvastatin Calcium [Lipitor] 80 mg PO HS 08/17/17 04/11/18 BuPROPion XL (24 HR) [Wellbutrin 150 mg PO DAILY 12/16/17 04/11/18 Xl] Cyclobenzaprine HCl 5 mg PO HS 12/16/17 04/11/18 Ezetimibe [Zetia] 10 mg PO DAILY 12/16/17 04/11/18 Sertraline [Zoloft] 100 mg PO DAILY 12/16/17 04/11/18 Topiramate [Topamax] 50 mg PO HS 12/16/17 04/11/18 amLODIPine [Norvasc] 5 mg PO DAILY 12/16/17 04/11/18 Metoprolol [Lopressor] 25 mg PO BID 02/25/18 04/11/18 Multivit-Min/FA/Lycopen/Lutein 1 tab PO DAILY 02/25/18 04/11/18 [Adults 50+ Multivitamin Tablet] Trazodone HCl 50 mg PO HS 02/25/18 04/11/18 Warfarin [Coumadin] 7.5 mg PO MOWEFRSA 02/26/18 04/11/18 Warfarin [Coumadin] 10 mg PO SUTUTH 02/26/18 04/11/18 Lisinopril [Zestril] 10 mg PO BID 03/28/18 04/11/18 Metformin HCl [Glucophage] 1,000 mg PO DAILY 03/28/18 04/11/18 Omeprazole [PriLOSEC] 20 mg PO DAILY 03/28/18 04/11/18 Tamsulosin HCl [Flomax] 0.4 mg PO DAILY 03/28/18 04/11/18 Previous Rx's Medication Instructions Recorded Nitroglycerin 0.4 mg SL Q5MIN PRN #14 tab.subl 08/22/17 OxyCODONE/APAP 10/325 [Percocet 1 each PO Q6HR PRN 14 Days #56 01/08/18 10/325 MG] tablet Levothyroxine [Synthroid] 150 mcg PO DAILY 30 Days #30 tablet 03/30/18 Allergies Allergy/AdvReac Type Severity Reaction Status Date / Time No Known Allergies Allergy Verified 04/11/18 15:17 Constitutional: Denies: fever Cardiovascular: Denies: chest pain Respiratory: Denies: cough, dyspnea Gastrointestinal: Denies: abdominal pain, nausea, vomiting Neurological: Reports: headache Past Medical History - Past Medical History Medical history: Reports: atrial fibrillation, cancer, coronary artery disease, CVA, diabetes, hypertension, myocardial infarction, peripheral artery disease, SVT, thyroid disease Surgical history: Reports: angioplasty/stent, appendectomy, coronary bypass ( CABG), herniorrhaphy, LE vascular intervention, tracheostomy Psychiatric history: Reports: no psych history - Social History Smoking Status: Former smoker Smokeless Tobacco Status: No Alcohol use: Reports: none Drug use: Reports: none Physical Exam - General Limitations: no limitations General appearance: alert, in no apparent distress Course Vital Signs Temperature 98.6 F 04/11/18 13:24 Pulse Rate 83 04/11/18 13:24 Respiratory Rate 18 04/11/18 13:24 Blood Pressure 111/50 04/11/18 13:24 O2 Sat by Pulse Oximetry 91 04/11/18 13:24 Temperature 98.6 F 04/11/18 14:28 Pulse Rate 83 04/11/18 14:28 Respiratory Rate 14 04/11/18 16:26 Blood Pressure 99/68 04/11/18 16:26 O2 Sat by Pulse Oximetry 93 04/11/18 14:28 Oxygen Delivery Oxygen Delivery Room Air Medical Decision Making - Lab Data Result diagrams: 04/11/18 14:27 04/11/18 14:27 Lab Results 04/11/18 04/11/18 04/11/18 Range/Units 14:18 14:27 14:27 WBC 8.6 (4.3-11.1) K/mcL RBC 4.91 (4.19-5.50) M/mcL Hgb 13.0 (12.9-16.9) g/dL Hct 42.3 (37.5-50.1) % MCV 86.2 (83.0-100.0) fL MCH 26.5 L (28.0-33.3) pg MCHC 30.7 L (31.6-35.5) g/dL RDW 14.5 (11.5-14.5) % Plt Count 348 (140-400) K/mcL MPV 10.3 (9.4-12.4) fL Immature Gran % 0.5 (0-4) % Seg Neutrophils % 74.6 % Lymphocytes % 13.3 % Monocytes % 7.9 % Eosinophils % 3.6 % Basophils % 0.1 % Neutrophils # 6.4 (1.6-8.9) K/mcL Lymphocytes # 1.1 (0.6-4.6) K/mcL Monocytes # 0.7 (0.0-1.3) K/mcL Eosinophils # 0.3 (0.0-0.6) K/mcL Basophils # 0.0 (0.0-0.2) K/mcL Immature Plt Fraction 3.4 (1.1-6.1) % PT 14.6 H (9.4-12.1) Seconds INR 1.3 Sodium 135 L (136-145) mEq/L Potassium 4.9 (3.5-5.1) mEq/L Chloride 103 (98-107) mEq/L Carbon Dioxide 27 (23-29) mEq/L BUN 22 (8-23) mg/dL Creatinine 1.06 (0.70-1.30) mg/dL Est GFR ( Amer) > 60 (> 60) Est GFR (Non-Af Amer) > 60 (> 60) BUN/Creatinine Ratio 21 (6-26) Glucose 123 H (70-105) mg/dL Calculated Osmolality 285 (280-300) Calcium 9.5 (8.6-10.3) mg/dL Troponin I < 0.03 (< 0.04) ng/mL Attestation Statement - Attestation Attestation: I examined this patient and my medical decision-making was reviewed with the Resident Physician. I agree with the documented findings, disposition and treatment plan as described except to the extent set forth below. AF/RVR, rate controlled w IV Lopressor in ED. BP normal.
[2018-04-11] MEDS ORDERED: Acetaminophen/Butalbital/CaffeineTABLET PO PRN (17:24)
[2018-04-11] MEDS ORDERED: *HR* OxyCODONE/APAP 10/325 TABLET PO PRN (17:24)
[2018-04-11] MEDS ORDERED: Nitroglycerin 0.4 MG TAB.SUBL SL PRN (17:24)
[2018-04-11] MEDS ORDERED: D5% in Water 1,000 ML IVC PRN (17:26)
[2018-04-11] MEDS ORDERED: Dextrose Gel 15 GM/37.5 ML TUBE PO PRN ×2 (17:26)
[2018-04-11] MEDS ORDERED: *HR* Dextrose 50 % in Water (Syg) 50 ML SYRINGE IVP PRN (17:26)
[2018-04-11] MEDS ORDERED: Warfarin perPT PO PRN (18:00)
[2018-04-11] MEDS ORDERED: *HR* Warfarin 7.5 MG TABLET PO ONE (18:23)
[2018-04-11] MEDS: Ringers Solution, Lactated 1,000 ML IVC SCH (18:46)
[2018-04-11 19:27] LABS: Bilirubin,Urine Negative (Negative); Blood,Urine Small (Negative); Clarity,Urine Cloudy (Clear); Color,Urine Yellow (Yellow); Glucose,Urine (UA) Normal (Normal); Ketones,Urine Negative (Negative); Leukocyte Esterase,Urine Large (Negative); Nitrite,Urine Positive (Negative); PH,Urine 6.5 pH Units (5.0-8.0); Protein,Urine Trace mg/dL (Neg-Trace); Specific Gravity,Urine 1.017 (1.010-1.025); Urobilinogen,Urine Normal (Normal)
[2018-04-11 19:37] LABS: Bacteria,Urine Few per hpf (None-Few); Hyaline Casts,Urine None Seen per lpf (None-Few); Squamous Epithelial Cell,Urine Few per lpf (None-Few); WBC,Urine TNTC per hpf (0-3)
[2018-04-11] MEDS: traZODone 50 MG TABLET PO SCH (20:06)
[2018-04-11] MEDS: Gabapentin 100 MG CAPSULE PO SCH (20:06)
[2018-04-11] MEDS: Topiramate 25 MG TABLET PO SCH (20:06)
[2018-04-11] MEDS: Insulin DETEMIR 100 UNIT/ML X5UNITS SQ SCH (20:26)
[2018-04-11] MEDS ORDERED: Insulin LISPRO 300 UNITS/3 ML VIAL SQ SCH (21:00)
[2018-04-12 06:59] LABS: Basophils % 0.2 %; Eosinophils # 0.5 K/mcL (0.0-0.6); Eosinophils % 5.3 %; Hematocrit 40.5 % (37.5-50.1); Hemoglobin 12.6 g/dL (12.9-16.9); Immature Granulocytes % 0.5 % (0-4); Lymphocytes # 1.3 K/mcL (0.6-4.6); Lymphocytes % 14.9 %; Mean Corpuscular HGB Conc 31.1 g/dL (31.6-35.5); Mean Corpuscular Hemoglobin 26.8 pg (28.0-33.3); Mean Corpuscular Volume 86.2 fL (83.0-100.0); Mean Platelet Volume 10.3 fL (9.4-12.4); Monocytes # 0.7 K/mcL (0.0-1.3); Platelet Count 356 K/mcL (140-400); Red Cell Distribution Width 14.6 % (11.5-14.5); Segmented Neutrophils % 71.1 %
[2018-04-12 07:05] LABS: BUN/Creatinine Ratio 20 (6-26); Blood Urea Nitrogen 21 mg/dL (8-23); Calcium 9.3 mg/dL (8.6-10.3); Carbon Dioxide 27 mEq/L (23-29); Chloride 103 mEq/L (98-107); Glucose 86 mg/dL (70-105); Osmolality,Calculated 286 (280-300); Potassium 4.7 mEq/L (3.5-5.1); Sodium 137 mEq/L (136-145); eGFR For African Americans > 60 (> 60); eGFR For Non-African Americans > 60 (> 60)
[2018-04-12 07:08] LABS: INR 1.3
[2018-04-12] MEDS: Ringers Solution, Lactated 1,000 ML IVC SCH (07:35)
[2018-04-12] MEDS: Insulin LISPRO 300 UNITS/3 ML VIAL SQ SCH ×3 (08:20→16:34)
[2018-04-12] MEDS: BuPROPion XL (24 HR) 150 MG TABLET PO SCH (08:47)
[2018-04-12] MEDS: Multivit/Ca/Min/Fe/FA 1 TAB TABLET PO SCH (08:48)
[2018-04-12] MEDS: (Ezetimibe [Zetia] 10 MG) PO SCH (08:48)
[2018-04-12] MEDS: Aspirin Enteric Coated 81 MG Tablet PO SCH (08:48)
[2018-04-12] MEDS ORDERED: amLODIPine 5 MG TABLET PO SCH (09:00)
--- NOTE | 2018-04-12 11:23 | Internal Med Progress Note ---
Date of Encounter: 04/12/18 Time of Encounter: 11:20 - Assessment and plan (1) Recurrent falls Current Visit: Yes Status: Acute Assessment and plan: Recurrent falls at home, reporting dizziness, lightheadedness, and weakness positive orthostasis without autonomic response; likely 2/2 meds, on a beta freda CT of head negative for acute intracranial abnormality Falls likely caused by postural hypotension and UTI Monitor vital signs closely Consult PT/OT decrease BB dose IVF x1 liter compression stockings up with assist only continue TEREZA to avoid pressure diuresis and worsening of orthostatic hypotension stop tamsulosin as this is an alpha-1 antagonist and make further exacerbate orthostatic hypotension Continue orthostatic vitals twice a day (2) Postural hypotension Current Visit: Yes Status: Acute Assessment and plan: History of weakness fatigue and falls Positive orthostasis without autonomic response Likely 2/2 medications, hold beta freda and Flomax Continue TEREZA inhibitor See further assessment and plan above (3) Orthostasis Current Visit: Yes Status: Acute Assessment and plan: see above (4) CAD (coronary artery disease) Current Visit: Yes Status: Chronic Assessment and plan: Status post CABG Denies chest pain at this time Continue home medications. Qualifiers: Coronary Disease-Associated Artery/Lesion type: bypass graft [place] vs. 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 fib. Initially in RVR on arrival Improved after receiving IV metoprolol Will continue home medications IVF Compression stockings decrease metoprolol dose to 12.5 mg BID On Coumadin therapy will continue with PT to dose Currently subtherapeutic, monitor INR daily Qualifiers: Atrial fibrillation type: paroxysmal Qualified Code(s): I48.0 - Paroxysmal atrial fibrillation (7) Hypertension Current Visit: Yes Status: Chronic Assessment and plan: HTN stable continue TEREZA decrease BB dose and CCB Hold antihypertensives for systolic blood pressure less than 100. Qualifiers: Hypertension type: essential hypertension Qualified Code(s): I10 - Essential (primary) hypertension (8) UTI (urinary tract infection) Current Visit: Yes Status: Acute Assessment and plan: Urinalysis with cloudy urine, small blood, positive urine nitrite and large leukocyte esterase History of prior UTIs Urine cultures 12/20/17 and growing Pseudomonas sensitive to levaquin Start levaquin IVPB now then daily send urine for culture- follow results Qualifiers: Urinary tract infection type: acute cystitis Hematuria presence: with hematuria Qualified Code(s): N30.01 - Acute cystitis with hematuria (9) Myoclonus Current Visit: Yes Status: Chronic Assessment and plan: Chronic myoclonus, etiology unclear Has had myclonus of BLE, BUE greater than 3 months 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 Was previously on high dose of levothyroxine Decreased during last admission to 150 g daily Likely contributing to myoclonus picture Recheck TSH and free T4 Patient reports myoclonus improved compared to prior admissions Recent CT imaging and MRI imaging of the head/brain on prior admissions unremarkable (10) DVT prophylaxis Current Visit: Yes Status: Acute Assessment and plan: warfarin - Time Spent With Patient Total time spent is greater than 50% in coordination of care (as documented) at patient's floor/unit and/or counseling patient: 25 - 35 minutes - Subjective Interval history: Patient seen and examined at bedside today. Continues to report weakness and fatigue. Denies any chest pain, shortness of breath, dizziness, blurred vision , neurological symptoms. - Constitutional Vitals: Temp Pulse Resp BP Pulse Ox 98.6 F 68 16 118/73 97 04/12/18 08:23 04/12/18 08:23 04/12/18 08:23 04/12/18 08:23 04/12/18 08:23 General appearance: Present: cooperative, A&O X 3, pleasant, answers questions appropriately - Head Head exam: Present: atraumatic, normocephalic - Eye Eye exam: Present: EOMI, PERRL, conjuntiva pink, sclera anicteric Pupils: Present: PERRL - Neck Neck exam general surgery: Present: supple, trachea midline. Absent: lymphadenopathy - Respiratory Respiratory exam: Present: CTAB. Absent: accessory muscle use, rales, rhonchi, wheezes - Cardiovascular Cardiovascular exam: Present: RRR, +S1, +S2. Absent: diastolic murmur, gallop, rubs, systolic murmur - GI/Abdominal GI/Abdominal exam: Present: normal bowel sounds, soft, no peritoneal signs. Absent: distended, tenderness - Extremities Exam Extremities exam: Present: normal capillary refill, normal inspection, warm, radial pulses palpable and symmetrical. Absent: calf tenderness, cyanotic, pedal edema - Neurological Exam Neurological exam: Present: alert, CN II-XII intact, oriented X3, no focal deficits, strengths equal and symetr throughout. Absent: pronater drift, facial droop, speech deficit Additional comments: Peripheral extremity myoclonus - Skin Skin exam: Present: dry, intact Internal Medicine: Result - Labs CBC & Chem 7: 04/12/18 05:52 04/12/18 05:52 - ABG Interpretation ABG results: PT/INR, D-dimer PT 14.0 Seconds (9.4-12.1) H 04/12/18 05:52 Consult Discharge Plan - Plan Referrals: Peter Carlson MD [Primary Care Provider] -
[2018-04-12] MEDS: cefTRIAXone 1,000 MG in 0.9 % Sodium Chloride Mini Bag 100 ML IVPB SCH (11:56)
--- NOTE | 2018-04-12 16:44 | Electrocardiograph Report ---
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
[2018-04-12] MEDS ORDERED: 0.9 % Sodium Chloride 1,000 ML IVC SCH (17:15)
[2018-04-12] MEDS ORDERED: *HR* Warfarin 10 MG TABLET PO ONE (18:00)
[2018-04-12 18:07] LABS: Thyroid Stimulating Hormone 5.601 mcIU/mL (0.340-5.600)
[2018-04-12] MEDS: Topiramate 25 MG TABLET PO SCH (20:47)
[2018-04-12] MEDS: traZODone 50 MG TABLET PO SCH (20:47)
[2018-04-12] MEDS: Gabapentin 100 MG CAPSULE PO SCH (20:47)
[2018-04-12] MEDS: Insulin DETEMIR 100 UNIT/ML X5UNITS SQ SCH (20:48)
[2018-04-13 06:13] LABS: INR 1.3; Prothrombin Time 14.9 Seconds (9.4-12.1)
[2018-04-13] MEDS: cefTRIAXone 1,000 MG in 0.9 % Sodium Chloride Mini Bag 100 ML IVPB SCH (08:43)
[2018-04-13] MEDS: BuPROPion XL (24 HR) 150 MG TABLET PO SCH (08:43)
[2018-04-13] MEDS: Aspirin Enteric Coated 81 MG Tablet PO SCH (08:43)
[2018-04-13] MEDS: Multivit/Ca/Min/Fe/FA 1 TAB TABLET PO SCH (08:43)
[2018-04-13] MEDS: (Ezetimibe [Zetia] 10 MG) PO SCH (08:44)
[2018-04-13] MEDS: levoFLOXacin 750 MG TABLET PO SCH (12:18)
--- NOTE | 2018-04-13 14:56 | Internal Med Progress Note ---
Date of Encounter: 04/13/18 Time of Encounter: 14:54 - Assessment and plan (1) Recurrent falls Current Visit: Yes Status: Acute Assessment and plan: Recurrent falls at home, reporting dizziness, lightheadedness, and weakness positive orthostasis without autonomic response; likely 2/2 meds, on a beta freda CT of head negative for acute intracranial abnormality Falls likely caused by postural hypotension and UTI Monitor vital signs closely Consult PT/OT- cont PT throughout stay decreased BB dose compression stockings up with assist only continue TEREZA to avoid pressure diuresis and worsening of orthostatic hypotension tamsulosin stopped as this is an alpha-1 antagonist and may further exacerbate orthostatic hypotension Continue orthostatic vitals twice a day (2) Postural hypotension Current Visit: Yes Status: Acute Assessment and plan: History of weakness fatigue and falls Positive orthostasis without autonomic response Likely 2/2 medications, decreased beta freda dose yesterday and discontinued Flomax weakness and fatigue subsided, no additional syncopal events today orthostatic vitals obtained today, positive for orthostasis Continue TEREZA inhibitor See further assessment and plan above (3) Orthostasis Current Visit: Yes Status: Acute Assessment and plan: see above (4) CAD (coronary artery disease) Current Visit: Yes Status: Chronic Assessment and plan: Status post CABG Denies chest pain at this time Continue home medications Qualifiers: Coronary Disease-Associated Artery/Lesion type: bypass graft [place] vs. transplanted heart: [place] heart Associated angina: with stable angina Qualified Code(s): I25.708 - Atherosclerosis of coronary artery bypass graft(s) , unspecified, with other forms of angina pectoris (5) Diabetes Current Visit: Yes Status: Chronic Assessment and plan: Monitor blood sugars Stop Sliding scale insulin hold basal dose tonight monitor closely regular diet Qualifiers: Diabetes mellitus type: type 2 Diabetes mellitus sample clerk insulin use: with sample clerk use Diabetes mellitus complication status: without complication Qualified Code(s): E11.9 - Type 2 diabetes mellitus without complications; 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 fib. Initially in RVR on arrival Improved after receiving IV metoprolol continuous tele IVF Compression stockings cont decreased metoprolol dose of 12.5 mg BID On Coumadin therapy will continue with PT to dose Currently subtherapeutic, monitor INR daily Qualifiers: Atrial fibrillation type: paroxysmal Qualified Code(s): I48.0 - Paroxysmal atrial fibrillation (7) Hypertension Current Visit: Yes Status: Chronic Assessment and plan: HTN stable continue TEREZA decrease BB dose stop amlodipine Hold antihypertensives for systolic blood pressure less than 100. Qualifiers: Hypertension type: essential hypertension Qualified Code(s): I10 - Essential (primary) hypertension (8) UTI (urinary tract infection) Current Visit: Yes Status: Acute Assessment and plan: Urinalysis with cloudy urine, small blood, positive urine nitrite and large leukocyte esterase History of prior UTIs Urine cultures 12/20/17 and growing Pseudomonas sensitive to levaquin Start levaquin PO Urine cultures growing gram positive rods-final results pending; adjust ABX depending on final results Qualifiers: Urinary tract infection type: acute cystitis Hematuria presence: with hematuria Qualified Code(s): N30.01 - Acute cystitis with hematuria (9) Myoclonus Current Visit: Yes Status: Resolved Assessment and plan: Has had myclonus of BLE, BUE greater than 3 months. 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 Was previously on high dose of levothyroxine 300mcg daily Decreased during last admission to 150 g daily; repeat TSH, 5.601 FREE T4 0.91 Increase synthroid to 175mcd daily will need close monitoring of TSH and free T4 outpatient in 4-[address] imaging and MRI imaging of the head/brain on prior admissions unremarkable (10) DVT prophylaxis Current Visit: Yes Status: Acute - Time Spent With Patient Total time spent is greater than 50% in coordination of care (as documented) at patient's floor/unit and/or counseling patient: - Subjective Interval history: Patient seen and examined at bedside today. Weakness and fatigue improving, no return of syncope. Denies any chest pain, shortness of breath, dizziness, blurred vision, neurological symptoms. - Constitutional Vitals: Temp Pulse Resp BP Pulse Ox 98.2 F 65 18 138/76 97 04/13/18 11:47 04/13/18 11:47 04/13/18 11:47 04/13/18 11:47 04/13/18 11:47 General appearance: Present: cooperative, A&O X 3, pleasant, answers questions appropriately - Head Head exam: Present: atraumatic, normocephalic - Eye Eye exam: Present: PERRL, conjuntiva pink, sclera anicteric Pupils: Present: PERRL - Neck Neck exam general surgery: Present: supple, trachea midline. Absent: lymphadenopathy - Respiratory Respiratory exam: Present: CTAB. Absent: accessory muscle use, rales, rhonchi, wheezes - Cardiovascular Cardiovascular exam: Present: RRR, +S1, +S2. Absent: diastolic murmur, gallop, rubs, systolic murmur - GI/Abdominal GI/Abdominal exam: Present: normal bowel sounds, soft, no peritoneal signs. Absent: distended, tenderness - Extremities Exam Extremities exam: Present: warm, radial pulses palpable and symmetrical. Absent : calf tenderness, cyanotic, pedal edema Additional comments: no myoclonus noted on todays exam - Neurological Exam Neurological exam: Present: CN II-XII intact, oriented X3, no focal deficits. Absent: pronater drift, facial droop, speech deficit - Skin Skin exam: Present: dry, intact Internal Medicine: Result - Labs CBC & Chem 7: 04/12/18 05:52 04/12/18 05:52 - ABG Interpretation ABG results: PT/INR, D-dimer PT 14.9 Seconds (9.4-12.1) H 04/13/18 05:40 - VTE Documentation of Mechanical Device: Graduated compression elastic hosiery Consult Discharge Plan - Plan Referrals: Peter Carlson MD [Primary Care Provider] -
[2018-04-13] MEDS ORDERED: Insulin DETEMIR 100 UNIT/ML X5UNITS SQ SCH (15:02)
[2018-04-13] MEDS ORDERED: *HR* Warfarin 10 MG TABLET PO ONE (18:00)
[2018-04-13] MEDS: Gabapentin 100 MG CAPSULE PO SCH (21:23)
[2018-04-13] MEDS: Topiramate 25 MG TABLET PO SCH (21:23)
[2018-04-13] MEDS: traZODone 50 MG TABLET PO SCH (21:23)
[2018-04-14 01:54] LABS: INR 1.8; Prothrombin Time 20.1 Seconds (9.4-12.1)
[2018-04-14] MEDS: (Ezetimibe [Zetia] 10 MG) PO SCH (07:35)
[2018-04-14] MEDS: Aspirin Enteric Coated 81 MG Tablet PO SCH (07:38)
[2018-04-14] MEDS: levoFLOXacin 750 MG TABLET PO SCH (07:39)
[2018-04-14] MEDS: Multivit/Ca/Min/Fe/FA 1 TAB TABLET PO SCH (07:39)
[2018-04-14] MEDS: BuPROPion XL (24 HR) 150 MG TABLET PO SCH (07:39)
--- NOTE | 2018-04-14 15:04 | Internal Med Progress Note ---
Date of Encounter: 04/14/18 Time of Encounter: 14:59 - Assessment and plan (1) Recurrent falls Current Visit: Yes Status: Acute Assessment and plan: Recurrent falls at home, reporting dizziness, lightheadedness, and weakness positive orthostasis without autonomic response; likely 2/2 meds, on a beta freda CT of head negative for acute intracranial abnormality Falls likely caused by postural hypotension and UTI Monitor vital signs closely Consult PT/OT- cont PT throughout stay decreased BB dose compression stockings up with assist only continue TEREZA to avoid pressure diuresis and worsening of orthostatic hypotension tamsulosin stopped as this is an alpha-1 antagonist and may further exacerbate orthostatic hypotension Continue orthostatic vitals twice a day Reports weakness fatigue is improving but still more weeks and baseline would benefit from an additional days stay (2) Postural hypotension Current Visit: Yes Status: Acute Assessment and plan: History of weakness fatigue and falls Positive orthostasis without autonomic response Likely 2/2 medications, decreased beta freda dose yesterday and discontinued Flomax weakness and fatigue subsided, no additional syncopal events today orthostatic vitals obtained yesterday evening and were negative for orthostasis Repeat orthostatic vitals today Continue TEREZA inhibitor See further assessment and plan above (3) Orthostasis Current Visit: Yes Status: Acute Assessment and plan: see above (4) CAD (coronary artery disease) Current Visit: Yes Status: Chronic Assessment and plan: Status post CABG Denies chest pain at this time Continue home medications Qualifiers: Coronary Disease-Associated Artery/Lesion type: bypass graft [place] vs. 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 fib. Initially in RVR on arrival Improved after receiving IV metoprolol continuous tele cont decreased metoprolol dose of 12.5 mg BID On Coumadin therapy will continue with PT to dose Continues to be subtherapeutic, monitor INR daily Qualifiers: Atrial fibrillation type: paroxysmal Qualified Code(s): I48.0 - Paroxysmal atrial fibrillation (7) Hypertension Current Visit: Yes Status: Chronic Assessment and plan: HTN stable continue TEREZA decrease BB dose stop amlodipine Hold antihypertensives for systolic blood pressure less than 100. Qualifiers: Hypertension type: essential hypertension Qualified Code(s): I10 - Essential (primary) hypertension (8) UTI (urinary tract infection) Current Visit: Yes Status: Acute Assessment and plan: Urinalysis with cloudy urine, small blood, positive urine nitrite and large leukocyte esterase History of prior UTIs Urine cultures 12/20/17 and growing Pseudomonas sensitive to levaquin Repeat her cultures obtained growing Enterobacter cloacae sensitive to Levaquin Continue Levaquin Repeat CBC in the morning Qualifiers: Urinary tract infection type: acute cystitis Hematuria presence: with hematuria Qualified Code(s): N30.01 - Acute cystitis with hematuria (9) Myoclonus Current Visit: Yes Status: Resolved Assessment and plan: Has had myclonus of BLE, BUE greater than 3 months. 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 Was previously on high dose of levothyroxine 300mcg daily Decreased during last admission to 150 g daily; repeat TSH, 5.601 FREE T4 0.91 cont synthroid to 175mcd daily will need close monitoring of TSH and free T4 outpatient in 4-[address] imaging and MRI imaging of the head/brain on prior admissions unremarkable (10) DVT prophylaxis Current Visit: Yes Status: Acute Assessment and plan: cont warfarin - Time Spent With Patient Total time spent is greater than 50% in coordination of care (as documented) at patient's floor/unit and/or counseling patient: - Subjective Interval history: Patient seen and examined at bedside today. Weakness and fatigue continuing to improve. No return of syncope. Denies any chest pain, shortness of breath, dizziness, blurred vision, neurological symptoms. - Constitutional Vitals: Temp Pulse Resp BP Pulse Ox 98.4 F 72 18 129/81 95 04/14/18 11:48 04/14/18 11:48 06/30/18 11:48 04/14/18 11:48 04/14/18 11:48 General appearance: Present: cooperative, A&O X 3, pleasant, answers questions appropriately - Head Head exam: Present: atraumatic, normocephalic - Eye Eye exam: Present: EOMI, PERRL, conjuntiva pink, sclera anicteric Pupils: Present: PERRL - Neck Neck exam general surgery: Present: supple, trachea midline. Absent: lymphadenopathy - Respiratory Respiratory exam: Present: CTAB. Absent: accessory muscle use, rales, rhonchi, wheezes - Cardiovascular Cardiovascular exam: Present: RRR, +S1, +S2. Absent: diastolic murmur, gallop, rubs, systolic murmur - GI/Abdominal GI/Abdominal exam: Present: normal bowel sounds, soft, no peritoneal signs. Absent: distended, tenderness - Extremities Exam Extremities exam: Present: warm, radial pulses palpable and symmetrical. Absent : calf tenderness, cyanotic, pedal edema - Neurological Exam Neurological exam: Present: CN II-XII intact, oriented X3, no focal deficits. Absent: pronater drift, facial droop, speech deficit - Skin Skin exam: Present: dry, intact Internal Medicine: Result - Labs CBC & Chem 7: 04/12/18 05:52 04/12/18 05:52 - ABG Interpretation ABG results: PT/INR, D-dimer PT 20.1 Seconds (9.4-12.1) H 04/14/18 01:12 - VTE Documentation of Mechanical Device: Graduated compression elastic hosiery Consult Discharge Plan - Plan Referrals: Peter Carlson MD [Primary Care Provider] -
[2018-04-14] MEDS ORDERED: *HR* Warfarin 10 MG TABLET PO ONE (18:00)
[2018-04-14] MEDS: Topiramate 25 MG TABLET PO SCH (20:32)
[2018-04-14] MEDS: Gabapentin 100 MG CAPSULE PO SCH (20:33)
[2018-04-14] MEDS: traZODone 50 MG TABLET PO SCH (20:33)
[2018-04-15 05:16] LABS: Basophils % 0.3 %; Eosinophils # 0.5 K/mcL (0.0-0.6); Eosinophils % 6.7 %; Hematocrit 38.2 % (37.5-50.1); Hemoglobin 11.8 g/dL (12.9-16.9); Immature Granulocytes % 0.4 % (0-4); Lymphocytes # 1.4 K/mcL (0.6-4.6); Lymphocytes % 20.4 %; Mean Corpuscular HGB Conc 30.9 g/dL (31.6-35.5); Mean Corpuscular Hemoglobin 26.5 pg (28.0-33.3); Mean Corpuscular Volume 85.7 fL (83.0-100.0); Mean Platelet Volume 10.2 fL (9.4-12.4); Monocytes # 0.7 K/mcL (0.0-1.3); Monocytes % 10.3 %; Neutrophils # 4.1 K/mcL (1.6-8.9); Platelet Count 311 K/mcL (140-400); Red Blood Count 4.46 M/mcL (4.19-5.50); Red Cell Distribution Width 14.7 % (11.5-14.5); Segmented Neutrophils % 61.9 %
[2018-04-15 05:22] LABS: INR 1.9; Prothrombin Time 21.8 Seconds (9.4-12.1)
[2018-04-15 05:35] LABS: BUN/Creatinine Ratio 30 (6-26); Blood Urea Nitrogen 26 mg/dL (8-23); Calcium 9.3 mg/dL (8.6-10.3); Carbon Dioxide 26 mEq/L (23-29); Chloride 103 mEq/L (98-107); Glucose 144 mg/dL (70-105); Osmolality,Calculated 285 (280-300); Potassium 4.6 mEq/L (3.5-5.1); Sodium 134 mEq/L (136-145); eGFR For African Americans > 60 (> 60); eGFR For Non-African Americans > 60 (> 60)
[2018-04-15] MEDS: BuPROPion XL (24 HR) 150 MG TABLET PO SCH (07:45)
[2018-04-15] MEDS: Multivit/Ca/Min/Fe/FA 1 TAB TABLET PO SCH (07:45)
[2018-04-15] MEDS: levoFLOXacin 750 MG TABLET PO SCH (07:45)
[2018-04-15] MEDS: Aspirin Enteric Coated 81 MG Tablet PO SCH (07:45)
[2018-04-15] MEDS: (Ezetimibe [Zetia] 10 MG) PO SCH (07:59)
--- NOTE | 2018-04-15 09:09 | Internal Med Progress Note ---
Date of Encounter: 04/15/18 Time of Encounter: 09:07 - Assessment and plan (1) Recurrent falls Current Visit: Yes Status: Acute Assessment and plan: Recurrent falls at home, reporting dizziness, lightheadedness, and weakness positive orthostasis without autonomic response CT of head negative for acute intracranial abnormality Falls likely caused by postural hypotension with autonomic dysfunction and UTI Monitor emitted dynamic status Consult PT/OT- cont PT throughout stay-PT/OT has recommended short-term rehabilitation in the inpatient setting however, patient/ declined. They are amendable to discharge with home health with PT/OT and nursing aides Continue beta freda at decreased dose compression stockings up with assist only Hold lisinopril, tamsulosin beta freda and Norvasc Continue orthostatic vitals twice a day With postural hypotension contributing to falls patient would benefit from additional hospital stay for further monitoring and evaluation Nephrology following, appreciate recommendations Obtain cortisol and catecholamines Consider adding fludrocortisone if hypotensive episodes or persistent (2) Postural hypotension Current Visit: Yes Status: Acute Assessment and plan: History of weakness fatigue and falls Positive orthostasis without autonomic response Presents because by autonomic dysfunction Continue beta freda at decreased dose, continue holding lisinopril, Norvasc and Flomax Nephrology seeing in consultation, appreciate recommendations Consider adding fludrocortisone if postural hypotension is persistent Check cortisol and catecholamines Consider resuming lisinopril at 10 mg daily instead of twice a day should patient remain hypertensive Okay for SBP to be in the 160s orthostatic vitals obtained yesterday evening and were negative for orthostasis however this morning patient has postural hypotension with a 63 mmHg decrease in systolic blood pressure from lying to standing position Consult to kidney/HTN specialist for further recommendations and evaluation; appreciate recommendations and thank you Repeat orthostatic vitals twice a day Monitor hemodynamic status closely Up with assist only See further assessment and plan above (3) Orthostasis Current Visit: Yes Status: Acute Assessment and plan: see above (4) CAD (coronary artery disease) Current Visit: Yes Status: Chronic Assessment and plan: Status post CABG Denies chest pain at this time Continue metoprolol, aspirin, Lipitor Qualifiers: Coronary Disease-Associated Artery/Lesion type: bypass graft [place] vs. 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 fib. Initially in RVR on arrival Improved after receiving IV metoprolol continuous tele remains rate controlled cont metoprolol 12.5 mg BID for rate controll On Coumadin therapy will continue with PT to dose Continues to be subtherapeutic, monitor INR daily Qualifiers: Atrial fibrillation type: paroxysmal Qualified Code(s): I48.0 - Paroxysmal atrial fibrillation (7) Hypertension Current Visit: Yes Status: Chronic Assessment and plan: HTN, hypertensive this morning Patient also having episodes of postural hypotension See above Qualifiers: Hypertension type: essential hypertension Qualified Code(s): I10 - Essential (primary) hypertension (8) UTI (urinary tract infection) Current Visit: Yes Status: Acute Assessment and plan: Denies any urinary symptoms Urinalysis with cloudy urine, small blood, positive urine nitrite and large leukocyte esterase History of prior UTIs Urine cultures 12/20/17 and growing Pseudomonas sensitive to levaquin Repeat her cultures obtained growing Enterobacter cloacae sensitive to Levaquin Continue Levaquin Repeat CBC in the morning Qualifiers: Urinary tract infection type: acute cystitis Hematuria presence: with hematuria Qualified Code(s): N30.01 - Acute cystitis with hematuria (9) Myoclonus Current Visit: Yes Status: Resolved Assessment and plan: Intermittent episodes of myoclonus of BLE, BUE Reports this has been occurring greater than 3 months Likely due to high-dose of Synthroid 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 Was previously on high dose of levothyroxine 300mcg daily Decreased during last admission to 150 g daily; repeat TSH, 5.601 FREE T4 0.91 increased synthroid to 175mcd daily; cont this dose will need close monitoring of TSH and free T4 outpatient in 4-[address] imaging and MRI imaging of the head/brain on prior admissions unremarkable (10) H/O: CVA (cerebrovascular accident) Current Visit: Yes Status: Acute Assessment and plan: h/o CVA with minimal residual RLE deficits; RLE weakness with ambulation no new deficits noted during stay non focal neuro exam (11) H/O carotid artery stenosis Current Visit: Yes Status: Acute Assessment and plan: History of carotid artery stenosis Increasing stenosis compared to prior exams bilateral carotid artery 60-69% stenosed Consult to vascular surgery for further evaluation and recommendations Vascular surgery not on-call over weekend, call in the morning (12) DVT prophylaxis Current Visit: Yes Status: Acute Assessment and plan: continue warfarin - Time Spent With Patient Total time spent is greater than 50% in coordination of care (as documented) at patient's floor/unit and/or counseling patient: 25 - 35 minutes - Subjective Interval history: Patient seen and examined at bedside today. Weakness and fatigue continuing to improve. No return of syncope. Denies any chest pain, shortness of breath, dizziness, blurred vision, neurological symptoms. Patient states that he feels he is ready to discharge - Constitutional Vitals: Temp Pulse Resp BP Pulse Ox 98.0 F 58 17 163/74 94 04/15/18 07:16 04/15/18 07:17 04/15/18 07:16 04/15/18 07:17 04/15/18 07:16 General appearance: Present: cooperative, A&O X 3, pleasant, answers questions appropriately - Head Head exam: Present: atraumatic, normocephalic - Eye Eye exam: Present: PERRL, conjuntiva pink, sclera anicteric Pupils: Present: PERRL - Neck Neck exam general surgery: Present: supple, trachea midline. Absent: lymphadenopathy - Respiratory Respiratory exam: Present: CTAB. Absent: accessory muscle use, rales, rhonchi, wheezes - Cardiovascular Cardiovascular exam: Present: RRR, +S1, +S2. Absent: diastolic murmur, gallop, rubs, systolic murmur - GI/Abdominal GI/Abdominal exam: Present: normal bowel sounds, soft, no peritoneal signs. Absent: distended, tenderness - Extremities Exam Extremities exam: Present: warm, radial pulses palpable and symmetrical. Absent : calf tenderness, cyanotic, pedal edema - Neurological Exam Neurological exam: Present: CN II-XII intact, oriented X3, no focal deficits, strengths equal and symetr throughout. Absent: pronater drift, facial droop, speech deficit Additional comments: RLE weakness with ambulation, patient reports as chronic - Skin Skin exam: Present: dry, intact Internal Medicine: Result - Labs CBC & Chem 7: 04/15/18 04:35 04/15/18 04:35 Labs: Short CBC 04/15/18 Range/Units 04:35 WBC 6.7 (4.3-11.1) K/mcL Hgb 11.8 L (12.9-16.9) g/dL Hct 38.2 (37.5-50.1) % Plt Count 311 (140-400) K/mcL Neutrophils # 4.1 (1.6-8.9) K/mcL BMP 04/15/18 04:35 Sodium 134 L Potassium 4.6 Chloride 103 Carbon Dioxide 26 BUN 26 H Creatinine 0.86 Glucose 144 H Calcium 9.3 - ABG Interpretation ABG results: PT/INR, D-dimer PT 21.8 Seconds (9.4-12.1) H 04/15/18 04:35 - VTE Documentation of Mechanical Device: Graduated compression elastic hosiery Consult Discharge Plan - Plan Referrals: Peter Carlson MD [Primary Care Provider] - (Appointment has been webrequested. Our offices will call you with a follow up appointment time and date. )
--- NOTE | 2018-04-15 12:56 | Nephrology Consult Note ---
Date of Encounter: 04/15/18 Time of Encounter: 12:35 Assessment and Plan (1) Postural hypotension Current Visit: Yes Status: Acute Appears to be autonomic dysfunction Agree with compresion stockings Ct head reviewed and unremarkable Will hold lisinopril for no and if needed will resume at 10mgdaily instead of bid Collin check cortisol and catecholamines. Thyroid fxn stabilized Will consider adding fludrocortisone if persistent (2) Atrial fibrillation with RVR Current Visit: Yes Status: Acute Continue metoprolol at 12.5mg bid for rate control (3) Falls Current Visit: Yes Status: Acute OOB with assistance only for now Qualifiers: Encounter type: initial encounter Qualified Code(s): W19.XXXA - Unspecified fall, initial encounter (4) Hypertension Current Visit: Yes Status: Chronic Will continue lisinopril at reduce dose and metroprolol low dose Qualifiers: Hypertension type: essential hypertension Qualified Code(s): I10 - Essential (primary) hypertension History of Present Illness - Reason for Consult Consult date: 04/15/18 Requesting physician: Tonny Egan - History of Present Illness 78 y o male with PMH of CAD s/p CABG, NH with stents, DM, HTN for years that fluctuates, PVD,Afib, 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 He was treated for UTI and his Afib on metoprolol. He was noted with postural hypotension with flomax stopped. Renal consulted for help with fluctuating BPs readings which appears positional. Pt reports having to stand slowly due to dizziness Past Med Surg Social Fam HX - Past Medical History Medical history: atrial fibrillation, cancer, coronary artery disease, CVA, diabetes, hypertension, myocardial infarction, peripheral artery disease, SVT, thyroid disease Additional medical history: nose cancer. trach Psychiatric history: no psych history - Past Surgical History Surgical History: angioplasty/stent, appendectomy, coronary bypass (CABG), herniorrhaphy, LE vascular intervention, tracheostomy Additional surgical history: BACK SURGERY, tracheostomy - Social History Smoking Status: Former smoker Smokeless Tobacco Status: No Alcohol use: none Drug use: none - Family History Mother Living Status: Hx Family Cardiac Disorders: No Hx Family Respiratory Disorders: No Hx Family Cancer: No Hx Family GI Disorders: No Hx Family Endocrine Disorder: No Hx Family Neuromuscular Disorders: No Hx Family Neurologic Disorders: No Hx Family HEENT Disorders: No Hx Family Autoimmune Disorders: No Father Living Status: Hx Family Cardiac Disorders: No Hx Family Respiratory Disorders: No Hx Family Cancer: No Hx Family GI Disorders: No Hx Family Endocrine Disorder: No Hx Family Neuromuscular Disorders: No Hx Family Neurologic Disorders: No Hx Family HEENT Disorders: No Hx Family Autoimmune Disorders: No Sister Living Status: Hx Family Cancer: Yes (lung cancer) Medications and Allergies Insulin Glargine,Hum.rec.anlog [Lantus Solostar] 22 unit SQ HS 12/09/15 [History ] Acetaminophen/Butalbital/Caffe [Fioricet] 1 tab PO DAILY PRN 05/14/17 [History] Gabapentin [Neurontin] 100 mg PO HS 05/14/17 [History] Aspirin Enteric Coated [Aspirin EC] 81 mg PO DAILY 08/17/17 [History] Atorvastatin Calcium [Lipitor] 80 mg PO HS 08/17/17 [History] Nitroglycerin 0.4 mg SL Q5MIN PRN #14 tab.subl 08/22/17 [Rx] BuPROPion XL (24 HR) [Wellbutrin Xl] 150 mg PO DAILY 12/16/17 [History] Cyclobenzaprine HCl 5 mg PO HS 12/16/17 [History] Ezetimibe [Zetia] 10 mg PO DAILY 12/16/17 [History] Sertraline [Zoloft] 100 mg PO DAILY 12/16/17 [History] Topiramate [Topamax] 50 mg PO HS 12/16/17 [History] amLODIPine [Norvasc] 5 mg PO DAILY 12/16/17 [History] OxyCODONE/APAP 10/325 [Percocet 10/325 MG] 1 each PO Q6HR PRN 14 Days #56 tablet 01/08/18 [Rx] Metoprolol [Lopressor] 25 mg PO BID 02/25/18 [History] Multivit-Min/FA/Lycopen/Lutein [Adults 50+ Multivitamin Tablet] 1 tab PO DAILY 02/25/18 [History] Trazodone HCl 50 mg PO HS 02/25/18 [History] Warfarin [Coumadin] 7.5 mg PO MOWEFRSA 02/26/18 [History] Warfarin [Coumadin] 10 mg PO SUTUTH 02/26/18 [History] Lisinopril [Zestril] 10 mg PO BID 03/28/18 [History] Metformin HCl [Glucophage] 1,000 mg PO DAILY 03/28/18 [History] Omeprazole [PriLOSEC] 20 mg PO DAILY 03/28/18 [History] Tamsulosin HCl [Flomax] 0.4 mg PO DAILY 03/28/18 [History] Levothyroxine [Synthroid] 150 mcg PO DAILY 30 Days #30 tablet 03/30/18 [Rx] 3 Allergy/AdvReac Type Severity Reaction Status Date / Time No Known Allergies Allergy Verified 04/11/18 15:17 Exam - Vital Signs Vital signs: Initial Vital Signs Temp Pulse Resp BP Pulse Ox 98.6 F 83 18 111/50 91 04/11/18 13:24 04/11/18 13:24 04/11/18 13:24 04/11/18 13:24 04/11/18 13:24 Vital Signs - Last 8 Hours Temp Pulse Pulse Pulse Pulse Resp BP 04/15/18 11:30 98.7 F 55 16 124/71 04/15/18 07:17 58 59 64 04/15/18 07:16 98.0 F 58 17 163/74 BP BP BP Pulse Ox 04/15/18 11:30 93 04/15/18 07:17 163/74 154/63 100/64 04/15/18 07:16 94 Intake and Output 04/14/18 04/15/18 04/15/18 23:59 07:59 15:59 Intake Total 240 / 240 360 / 360 Output Total 175 / 175 1300 / 1300 230 / 230 Balance 65 / 65 -1300 / -1300 130 / 130 Intake: Oral 240 / 240 360 / 360 Output: Urine 175 / 175 1300 / 1300 230 / 230 Other: Meal Dinner Breakfast Percent of Meal Consumed 100% 85% # Voids 1 2 Weight 82.6 kg Blood Glucose* 170 159 Patient Weight 04/15/18 23:59 Weight 82.6 kg - General Appearance General appearance: chronically ill (NAD) EENT: ATNC, mucous membranes moist Neck: no JVD, supple Additional Comments: stoma noted Respiratory: clear (ant bilat) Cardiology: no edema, normal S1, normal S2 Gastrointestinal: no tenderness, no guarding Integumentary: warm and dry Neurologic: no focal deficit Musculoskeletal: no deformities Psychiatric: mood/affect appropriate, cooperative Results - Lab Results 04/15/18 04:35 04/15/18 04:35 Most recent lab results Calcium 9.3 mg/dL (8.6-10.3) 04/15/18 04:35 Consult Discharge Plan - Plan Referrals: Peter Carlson MD [Primary Care Provider] - (Appointment has been webrequested. Our offices will call you with a follow up appointment time and date. )
[2018-04-15] MEDS ORDERED: *HR* Warfarin 7.5 MG TABLET PO ONE (18:00)
[2018-04-15] MEDS: Gabapentin 100 MG CAPSULE PO SCH (20:02)
[2018-04-15] MEDS: Topiramate 25 MG TABLET PO SCH (20:02)
[2018-04-15] MEDS: traZODone 50 MG TABLET PO SCH (20:02)
[2018-04-16 05:34] LABS: Basophils % 0.4 %; Eosinophils # 0.5 K/mcL (0.0-0.6); Eosinophils % 6.2 %; Hematocrit 43.8 % (37.5-50.1); Immature Granulocytes % 0.4 % (0-4); Lymphocytes # 1.4 K/mcL (0.6-4.6); Lymphocytes % 19.8 %; Mean Corpuscular HGB Conc 31.1 g/dL (31.6-35.5); Mean Corpuscular Hemoglobin 26.6 pg (28.0-33.3); Mean Corpuscular Volume 85.5 fL (83.0-100.0); Mean Platelet Volume 10.4 fL (9.4-12.4); Monocytes # 0.6 K/mcL (0.0-1.3); Monocytes % 8.3 %; Neutrophils # 4.7 K/mcL (1.6-8.9); Platelet Count 316 K/mcL (140-400); Red Blood Count 5.12 M/mcL (4.19-5.50); Red Cell Distribution Width 14.7 % (11.5-14.5); Segmented Neutrophils % 64.9 %
[2018-04-16 05:37] LABS: Hemoglobin 13.6 g/dL (12.9-16.9)
[2018-04-16 05:39] LABS: INR 1.9; Prothrombin Time 21.5 Seconds (9.4-12.1)
[2018-04-16 05:53] LABS: BUN/Creatinine Ratio 33 (6-26); Blood Urea Nitrogen 29 mg/dL (8-23); Calcium 9.9 mg/dL (8.6-10.3); Carbon Dioxide 26 mEq/L (23-29); Chloride 102 mEq/L (98-107); Glucose 138 mg/dL (70-105); Osmolality,Calculated 290 (280-300); Potassium 4.4 mEq/L (3.5-5.1); Sodium 136 mEq/L (136-145); eGFR For African Americans > 60 (> 60); eGFR For Non-African Americans > 60 (> 60)
[2018-04-16] MEDS: Multivit/Ca/Min/Fe/FA 1 TAB TABLET PO SCH (07:41)
[2018-04-16] MEDS: BuPROPion XL (24 HR) 150 MG TABLET PO SCH (07:42)
[2018-04-16] MEDS: Aspirin Enteric Coated 81 MG Tablet PO SCH (07:42)
[2018-04-16] MEDS: levoFLOXacin 750 MG TABLET PO SCH (07:42)
[2018-04-16] MEDS: (Ezetimibe [Zetia] 10 MG) PO SCH (07:42)
--- NOTE | 2018-04-16 12:52 | Nephrology Progress Note ---
Date of Encounter: 04/16/18 Time of Encounter: 12:00 - Assessment and Plan (1) Postural hypotension Current Visit: Yes Status: Acute Continue compression stocking Continue to hold lisinopril cortisol WNL, will consider adding fludrocortisone if symptomatic hypotension persists (2) Atrial fibrillation with RVR Current Visit: Yes Status: Acute Continue metoprolol (3) Falls Current Visit: Yes Status: Acute Qualifiers: Encounter type: initial encounter Qualified Code(s): W19.XXXA - Unspecified fall, initial encounter (4) Hypertension Current Visit: Yes Status: Chronic Qualifiers: Hypertension type: essential hypertension Qualified Code(s): I10 - Essential (primary) hypertension Subjective Interval history: Pt seen and examined with no complaints. BP readings better overall today so far Objective - Vital Signs Vital signs: Vital Signs Temp Pulse Pulse Pulse Pulse Resp BP 04/16/18 11:48 98.1 F 56 56 59 59 15 117/60 04/16/18 07:06 98.2 F 61 15 125/54 04/16/18 03:16 98.2 F 78 17 131/82 04/15/18 22:42 98.1 F 67 15 133/65 04/15/18 18:53 98.9 F 89 89 92 99 16 114/70 04/15/18 15:48 98.3 F 61 16 143/82 BP BP BP Pulse Ox 04/16/18 11:48 117/60 91/58 80/51 97 04/16/18 07:06 100 04/16/18 03:16 95 04/15/18 22:42 91 04/15/18 18:53 114/70 126/64 111/58 98 04/15/18 15:48 98 Intake and Output 04/15/18 04/16/18 04/16/18 23:59 07:59 15:59 Intake Total 420 / 420 600 / 600 Output Total 200 / 200 830 / 830 425 / 425 Balance 220 / 220 -830 / -830 175 / 175 Intake: Oral 420 / 420 600 / 600 Output: Urine 200 / 200 830 / 830 425 / 425 Other: Meal Dinner Breakfast Percent of Meal Consumed 45% 20% Weight 83.1 kg Blood Glucose* 169 122 158 Patient Weight 04/16/18 23:59 Weight 83.1 kg - General Appearance General appearance: Present: chronically ill (NAD) EENT: Present: ATNC, mucous membranes moist Neck: Present: no JVD, supple Additional Comments: +stoma Respiratory: Present: clear Cardiology: Present: no edema, normal S1, normal S2 Gastrointestinal: Present: no tenderness, no guarding Integumentary: Present: warm and dry Neurologic: Present: no focal deficit Musculoskeletal: Present: no deformities Psychiatric: Present: mood/affect appropriate - Lab 04/17/18 05:22 04/17/18 05:22 Most recent lab results Calcium 9.9 mg/dL (8.6-10.3) 04/16/18 04:43 - VTE Documentation of Mechanical Device: Graduated compression elastic hosiery Consult Discharge Plan - Plan Referrals: Peter Carlson MD [Primary Care Provider] - 04/23/18 9:45 am ()
--- NOTE | 2018-04-16 16:33 | Internal Med Progress Note ---
Date of Encounter: 04/16/18 Time of Encounter: 16:31 - Assessment and plan (1) Recurrent falls Current Visit: Yes Status: Acute Assessment and plan: Recurrent falls at home, reporting dizziness, lightheadedness, and weakness positive orthostasis without autonomic response CT of head negative for acute intracranial abnormality Falls likely caused by postural hypotension with autonomic dysfunction Monitor hemodynamic status Consult PT/OT- cont PT throughout stay PT/OT has recommended short-term rehabilitation in the inpatient setting however , patient/ declined They are amendable to discharge with home health with PT/OT and nursing aides Continue beta freda at decreased dose compression stockings up with assist only Hold lisinopril, tamsulosin, and Norvasc Continue orthostatic vitals twice a day With postural hypotension contributing to falls patient would benefit from additional hospital stay for further monitoring and evaluation Nephrology following, thank you; appreciate recommendations Consider adding fludrocortisone if hypotensive episodes or persistent (2) Postural hypotension Current Visit: Yes Status: Acute Assessment and plan: History of weakness fatigue and falls Positive orthostasis with autonomic dysfunction Continue beta freda at decreased dose, Hold lisinopril, Norvasc and Flomax Consider adding fludrocortisone if postural hypotension is persistent Random cortisol 11.2 Okay for SBP to be in the 160s Continue orthostatic vitals BID Consult to kidney/HTN specialist for further recommendations and evaluation; appreciate recommendations and thank you Repeat orthostatic vitals twice a day Monitor hemodynamic status closely Up with assist only See further assessment and plan above High risk for falls and additional morbidity/mortality, not ready for discharge (3) Orthostasis Current Visit: Yes Status: Acute Assessment and plan: see above (4) CAD (coronary artery disease) Current Visit: Yes Status: Chronic Assessment and plan: Status post CABG Denies chest pain at this time Continue metoprolol, aspirin, Lipitor still holding norvasc and TEREZA with postural hypotension Qualifiers: Coronary Disease-Associated Artery/Lesion type: bypass graft [place] vs. transplanted heart: [facility] [place] heart Associated angina: with stable angina Qualified Code(s): I25.708 - Atherosclerosis of coronary artery bypass graft(s) , unspecified, with other forms of angina pectoris (5) Diabetes Current Visit: Yes Status: Chronic Assessment and plan: Blood glucose stable Cont Monitor blood sugars Continue basal insulin monitor closely regular diet Qualifiers: Diabetes mellitus type: type 2 Diabetes mellitus manager long term care insulin use: with fpc use Diabetes mellitus complication status: without complication Qualified Code(s): E11.9 - Type 2 diabetes mellitus without complications; Z79.4 - retirement (current) use of insulin (6) Atrial fibrillation Current Visit: Yes Status: Chronic Assessment and plan: H/o A. fib. Initially in RVR on arrival Improved after receiving IV metoprolol continuous tele remains rate controlled throughout stay, sinus xi cont metoprolol 12.5 mg BID for rate controll; this has been reduced this stay d /t postural hypotension On Coumadin therapy will continue with PT to dose Continues to be subtherapeutic, monitor INR daily Qualifiers: Atrial fibrillation type: paroxysmal Qualified Code(s): I48.0 - Paroxysmal atrial fibrillation (7) Hypertension Current Visit: Yes Status: Chronic Assessment and plan: HTN hx BP stable this afternoon Continuing to have postural hypotension See above Qualifiers: Hypertension type: essential hypertension Qualified Code(s): I10 - Essential (primary) hypertension (8) UTI (urinary tract infection) Current Visit: Yes Status: Acute Assessment and plan: Denies any urinary symptoms Urinalysis with cloudy urine, small blood, positive urine nitrite and large leukocyte esterase History of prior UTIs Urine cultures obtained growing Enterobacter cloacae sensitive to Levaquin Continue Levaquin Repeat CBC in the morning Qualifiers: Urinary tract infection type: acute cystitis Hematuria presence: with hematuria Qualified Code(s): N30.01 - Acute cystitis with hematuria (9) Myoclonus Current Visit: Yes Status: Resolved Assessment and plan: resolved Has been having Intermittent episodes of myoclonus of BLE, BUE Reports this has been occurring greater than 3 months Likely due to high-dose of Synthroid 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 Was previously on high dose of levothyroxine 300mcg daily Decreased during last admission to 150 g daily; repeat TSH, 5.601 FREE T4 0.91 increased synthroid to 175mcd daily; cont this dose will need close monitoring of TSH and free T4 outpatient in 4-[address] imaging and MRI imaging of the head/brain on prior admissions unremarkable (10) H/O: CVA (cerebrovascular accident) Current Visit: Yes Status: Acute Assessment and plan: h/o CVA with minimal residual RLE deficits; RLE weakness with ambulation no new deficits noted during stay neuro exam remains non-focal (11) H/O carotid artery stenosis Current Visit: Yes Status: Acute Assessment and plan: History of carotid artery stenosis Increasing stenosis compared to prior exams bilateral carotid artery 60-69% stenosed Spoke with Dr. George Vascular surgery, rec f/u with vascular surgery upon discharge; optimization of medical therapy (12) DVT prophylaxis Current Visit: Yes Status: Acute Assessment and plan: continue warfarin - Time Spent With Patient Total time spent is greater than 50% in coordination of care (as documented) at patient's floor/unit and/or counseling patient: 25 - 35 minutes - Subjective Interval history: Patient seen and examined at bedside today. Weakness and fatigue continuing to improve. No return of syncope. Denies any chest pain, shortness of breath, dizziness, blurred vision, neurological symptoms. Having episodes of postural hypotension with inappropriate autonomic response - Constitutional Vitals: Temp Pulse Resp BP Pulse Ox 98.6 F 61 15 117/56 97 04/16/18 15:43 04/16/18 15:43 04/16/18 15:43 04/16/18 15:43 04/16/18 15:43 General appearance: Present: cooperative, A&O X 3, pleasant, answers questions appropriately - Head Head exam: Present: atraumatic, normocephalic - Eye Eye exam: Present: PERRL, conjuntiva pink, sclera anicteric Pupils: Present: PERRL - Neck Neck exam general surgery: Present: supple, trachea midline. Absent: lymphadenopathy Additional comments: tracheostomy s/p head and neck cancer - Respiratory Respiratory exam: Present: CTAB. Absent: accessory muscle use, rales, rhonchi, wheezes - Cardiovascular Cardiovascular exam: Present: RRR, +S1, +S2. Absent: diastolic murmur, gallop, rubs, systolic murmur - GI/Abdominal GI/Abdominal exam: Present: normal bowel sounds, soft, no peritoneal signs. Absent: distended, tenderness - Extremities Exam Extremities exam: Present: warm, radial pulses palpable and symmetrical. Absent : calf tenderness, cyanotic, pedal edema - Neurological Exam Neurological exam: Present: CN II-XII intact, oriented X3, no focal deficits. Absent: pronater drift, facial droop, speech deficit - Skin Skin exam: Present: dry, intact Internal Medicine: Result - Labs CBC & Chem 7: 04/16/18 04:43 04/16/18 04:43 Labs: Short CBC 04/16/18 Range/Units 04:43 WBC 7.3 (4.3-11.1) K/mcL Hgb 13.6 D (12.9-16.9) g/dL Hct 43.8 (37.5-50.1) % Plt Count 316 (140-400) K/mcL Neutrophils # 4.7 (1.6-8.9) K/mcL BMP 04/16/18 04:43 Sodium 136 Potassium 4.4 Chloride 102 Carbon Dioxide 26 BUN 29 H Creatinine 0.89 Glucose 138 H Calcium 9.9 - ABG Interpretation ABG results: PT/INR, D-dimer PT 21.5 Seconds (9.4-12.1) H 04/16/18 04:43 - VTE Documentation of Mechanical Device: Graduated compression elastic hosiery Consult Discharge Plan - Plan Referrals: Peter Carlson MD [Primary Care Provider] - 04/23/18 9:45 am ()
[2018-04-16] MEDS ORDERED: *HR* Warfarin 10 MG TABLET PO ONE (18:00)
[2018-04-16] MEDS: Gabapentin 100 MG CAPSULE PO SCH (20:10)
[2018-04-16] MEDS: traZODone 50 MG TABLET PO SCH (20:10)
[2018-04-16] MEDS: Topiramate 25 MG TABLET PO SCH (20:10)
[2018-04-17 06:28] LABS: Basophils % 0.3 %; Eosinophils # 0.5 K/mcL (0.0-0.6); Hematocrit 36.1 % (37.5-50.1); Immature Granulocytes % 0.3 % (0-4); Lymphocytes # 1.4 K/mcL (0.6-4.6); Lymphocytes % 21.3 %; Mean Corpuscular HGB Conc 30.7 g/dL (31.6-35.5); Mean Corpuscular Hemoglobin 25.8 pg (28.0-33.3); Mean Corpuscular Volume 83.8 fL (83.0-100.0); Mean Platelet Volume 10.2 fL (9.4-12.4); Monocytes # 0.6 K/mcL (0.0-1.3); Monocytes % 9.3 %; Neutrophils # 4.2 K/mcL (1.6-8.9); Platelet Count 284 K/mcL (140-400); Red Blood Count 4.31 M/mcL (4.19-5.50); Red Cell Distribution Width 14.6 % (11.5-14.5); Segmented Neutrophils % 61.8 %
[2018-04-17 06:29] LABS: Hemoglobin 11.1 g/dL (12.9-16.9)
[2018-04-17 06:36] LABS: INR 2.1; Prothrombin Time 24.1 Seconds (9.4-12.1)
[2018-04-17 06:46] LABS: BUN/Creatinine Ratio 38 (6-26); Blood Urea Nitrogen 33 mg/dL (8-23); Calcium 9.5 mg/dL (8.6-10.3); Carbon Dioxide 24 mEq/L (23-29); Chloride 104 mEq/L (98-107); Glucose 151 mg/dL (70-105); Osmolality,Calculated 292 (280-300); Potassium 4.4 mEq/L (3.5-5.1); Sodium 136 mEq/L (136-145); eGFR For African Americans > 60 (> 60); eGFR For Non-African Americans > 60 (> 60)
[2018-04-17] MEDS: BuPROPion XL (24 HR) 150 MG TABLET PO SCH (08:06)
[2018-04-17] MEDS: levoFLOXacin 750 MG TABLET PO SCH (08:06)
[2018-04-17] MEDS: Multivit/Ca/Min/Fe/FA 1 TAB TABLET PO SCH (08:06)
[2018-04-17] MEDS: Aspirin Enteric Coated 81 MG Tablet PO SCH (08:06)
[2018-04-17] MEDS: (Ezetimibe [Zetia] 10 MG) PO SCH (08:07)
--- NOTE | 2018-04-17 12:03 | Nephrology Progress Note ---
Date of Encounter: 04/17/18 Time of Encounter: 11:00 - Assessment and Plan (1) Postural hypotension Current Visit: Yes Status: Acute Cortisol level WNL Will start fludrocortisone 0.1mg daily Continue to hold lisinopril as well Continue compression stocking (2) Atrial fibrillation with RVR Current Visit: Yes Status: Acute Continue metoprolol for rate control (3) Falls Current Visit: Yes Status: Acute per primary team, receiving PT today Qualifiers: Encounter type: initial encounter Qualified Code(s): W19.XXXA - Unspecified fall, initial encounter (4) Hypertension Current Visit: Yes Status: Chronic stable Qualifiers: Hypertension type: essential hypertension Qualified Code(s): I10 - Essential (primary) hypertension Subjective Interval history: Pt seen and examined with no new complaints. Still with orthostatic hypotension. Objective - Vital Signs Vital signs: Vital Signs Temp Pulse Pulse Pulse Pulse Resp BP 04/17/18 11:20 68 83 78 04/17/18 11:08 98.7 F 68 14 114/70 04/17/18 08:05 64 16 120/64 04/17/18 07:15 97.6 F 62 62 71 97 14 121/54 04/17/18 03:06 97.6 F 57 16 116/63 04/16/18 22:57 98.1 F 58 16 164/68 04/16/18 19:13 59 60 59 04/16/18 19:11 97.6 F 58 16 118/60 04/16/18 15:43 98.6 F 61 15 117/56 BP BP BP Pulse Ox 04/17/18 11:20 114/70 88/56 85/57 04/17/18 11:08 96 04/17/18 08:05 04/17/18 07:15 121/54 100/65 90/54 94 04/17/18 03:06 91 04/16/18 22:57 98 04/16/18 19:13 94/61 123/55 118/60 04/16/18 19:11 98 04/16/18 15:43 97 Intake and Output 04/16/18 04/17/18 04/17/18 23:59 07:59 15:59 Intake Total 360 / 360 Output Total 175 / 175 875 / 875 300 / 300 Balance -175 / -175 -875 / -875 60 / 60 Intake: Oral 360 / 360 Output: Urine 175 / 175 875 / 875 300 / 300 Other: Meal Breakfast Percent of Meal Consumed 85% Weight 80.3 kg Blood Glucose* 156 125 180 Patient Weight 04/17/18 23:59 Weight 80.3 kg - General Appearance General appearance: Present: chronically ill (NAD) EENT: Present: ATNC, mucous membranes moist Neck: Present: no JVD, supple Additional Comments: +stoma Respiratory: Present: clear Cardiology: Present: no edema, normal S1, normal S2 Gastrointestinal: Present: no tenderness, no guarding Integumentary: Present: warm and dry Neurologic: Present: no focal deficit Musculoskeletal: Present: no deformities Psychiatric: Present: mood/affect appropriate - Lab 04/17/18 05:22 04/17/18 05:22 Most recent lab results Calcium 9.5 mg/dL (8.6-10.3) 04/17/18 05:22 - VTE Documentation of Mechanical Device: Graduated compression elastic hosiery Consult Discharge Plan - Plan Referrals: Peter Carlson MD [Primary Care Provider] - 04/23/18 9:45 am ()
--- NOTE | 2018-04-17 17:10 | Internal Med Progress Note ---
Date of Encounter: 04/17/18 Time of Encounter: 09:30 - Assessment and plan (1) CAD (coronary artery disease) Current Visit: Yes Status: Chronic Assessment and plan: Status post CABG Patient denies chest pain. Continue aspirin, statin, beta freda. Norvasc and TEREZA inhibitor have been held for postural hypotension. Continue telemetry. Qualifiers: Coronary Disease-Associated Artery/Lesion type: bypass graft [place] vs. transplanted heart: [place] heart Associated angina: with stable angina Qualified Code(s): I25.708 - Atherosclerosis of coronary artery bypass graft(s) , unspecified, with other forms of angina pectoris (2) Diabetes Current Visit: Yes Status: Chronic Assessment and plan: Continue sliding scale, diabetic diet, Accu-Cheks before meals at bedtime. 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 fib, A. fib RVR of arrival, A. fib RVR resolved after receiving IV metoprolol. Continue telemetry Rate controlled Continue warfarin, INR therapeutic at 2.1. Qualifiers: Atrial fibrillation type: paroxysmal Qualified Code(s): I48.0 - Paroxysmal atrial fibrillation (4) Hypertension Current Visit: Yes Status: Chronic Assessment and plan: Chronic. Blood pressure is stable although orthostatic hypotension remains. Plan as above Qualifiers: Hypertension type: essential hypertension Qualified Code(s): I10 - Essential (primary) hypertension (5) Recurrent falls Current Visit: Yes Status: Acute Assessment and plan: Recurrent falls at home, reporting dizziness, lightheadedness, and weakness, likely due to orthostasis CT of head negative for acute intracranial abnormality PT/OT has recommended short-term rehabilitation in the inpatient setting however , patient/ declined, will go home with PT/OT and home health. Continue beta freda at decreased dose compression stockings, fludrocortisone 0.1 mg. up with assist only Hold lisinopril, tamsulosin, and Norvasc Continue orthostatic vitals twice a day Nephrology following, thank you; appreciate recommendations Continue to monitor labs and vitals. (6) Orthostasis Current Visit: Yes Status: Acute Assessment and plan: Plan as above. (7) Postural hypotension Current Visit: Yes Status: Acute Assessment and plan: Plan as above. (8) UTI (urinary tract infection) Current Visit: Yes Status: Acute Assessment and plan: Patient remains asymptomatic Urinalysis with cloudy urine, small blood, positive urine nitrite and large leukocyte esterase History of prior UTIs Urine cultures obtained growing Enterobacter cloacae sensitive to Levaquin Continue Levaquin by mouth Qualifiers: Urinary tract infection type: acute cystitis Hematuria presence: with hematuria Qualified Code(s): N30.01 - Acute cystitis with hematuria (9) Myoclonus Current Visit: Yes Status: Resolved Assessment and plan: Resolved. (10) DVT prophylaxis Current Visit: Yes Status: Acute Assessment and plan: continue warfarin, therapeutic. (11) H/O: CVA (cerebrovascular accident) Current Visit: Yes Status: Chronic Assessment and plan: h/o CVA with minimal residual RLE deficits; RLE weakness with ambulation no new deficits noted during stay neuro exam remains non-focal Ambulate with walker and monitor for safety. Home health with aides, nursing, PT/OT (12) H/O carotid artery stenosis Current Visit: Yes Status: Chronic - Time Spent With Patient Total time spent is greater than 50% in coordination of care (as documented) at patient's floor/unit and/or counseling patient: less than 15 minutes - Subjective Interval history: Patient was seen and assessed at bedside at 9:30 AM. Patient states that he has returned to baseline, however he is still orthostatic. He states he is feeling well and is ready to go home. We will start him on fludrocortisone reassess in the morning. Any headache, chest pain, shortness of breath, nausea , vomiting, diarrhea. - Constitutional Vitals: Temp Pulse Resp BP Pulse Ox 99.4 F 64 14 118/57 92 04/17/18 15:32 04/17/18 15:32 04/17/18 15:32 04/17/18 15:32 04/17/18 15:32 General appearance: Present: cooperative, A&O X 3, pleasant, no acute distress, answers questions appropriately - Head Head exam: Present: atraumatic, normal inspection, normocephalic - Eye Eye exam: Present: normal appearance, conjuntiva pink, sclera anicteric - Neck Neck exam general surgery: Present: supple, trachea midline. Absent: lymphadenopathy, tenderness - Respiratory Respiratory exam: Present: CTAB. Absent: accessory muscle use, chest wall tenderness, rales, respiratory distress, rhonchi, wheezes - Cardiovascular Cardiovascular exam: Present: RRR, +S1, +S2. Absent: diastolic murmur, gallop, rubs, systolic murmur - GI/Abdominal GI/Abdominal exam: Present: normal bowel sounds, soft, no peritoneal signs. Absent: distended, hepatomegaly, tenderness - Extremities Exam Extremities exam: Present: normal capillary refill, normal inspection, warm, radial pulses palpable and symmetrical. Absent: calf tenderness, cyanotic, pedal edema, tenderness - Neurological Exam Neurological exam: Present: alert, oriented X3, no focal deficits. Absent: facial droop, speech deficit - Skin Skin exam: Present: dry, intact, normal color, warm. Absent: rash Internal Medicine: Result - Labs CBC & Chem 7: 04/17/18 05:22 04/17/18 05:22 Labs: Short CBC 04/17/18 Range/Units 05:22 WBC 6.8 (4.3-11.1) K/mcL Hgb 11.1 L D (12.9-16.9) g/dL Hct 36.1 L (37.5-50.1) % Plt Count 284 (140-400) K/mcL Neutrophils # 4.2 (1.6-8.9) K/mcL BMP 04/17/18 05:22 Sodium 136 Potassium 4.4 Chloride 104 Carbon Dioxide 24 BUN 33 H Creatinine 0.87 Glucose 151 H Calcium 9.5 - ABG Interpretation ABG results: PT/INR, D-dimer PT 24.1 Seconds (9.4-12.1) H 04/17/18 05:22 - VTE Documentation of Mechanical Device: Graduated compression elastic hosiery Consult Discharge Plan - Plan Referrals: Peter Carlson MD [Primary Care Provider] - 04/23/18 9:45 am ()
[2018-04-17] MEDS ORDERED: *HR* Warfarin 7.5 MG TABLET PO ONE (18:00)
[2018-04-17] MEDS: Gabapentin 100 MG CAPSULE PO SCH (21:13)
[2018-04-17] MEDS: traZODone 50 MG TABLET PO SCH (21:13)
[2018-04-17] MEDS: Topiramate 25 MG TABLET PO SCH (21:13)
[2018-04-18 07:27] LABS: Basophils % 0.4 %; Eosinophils # 0.4 K/mcL (0.0-0.6); Eosinophils % 6.6 %; Hemoglobin 11.2 g/dL (12.9-16.9); Immature Granulocytes % 0.3 % (0-4); Lymphocytes # 1.2 K/mcL (0.6-4.6); Lymphocytes % 18.5 %; Mean Corpuscular HGB Conc 31.1 g/dL (31.6-35.5); Mean Corpuscular Volume 83.5 fL (83.0-100.0); Mean Platelet Volume 9.8 fL (9.4-12.4); Monocytes # 0.6 K/mcL (0.0-1.3); Neutrophils # 4.4 K/mcL (1.6-8.9); Platelet Count 253 K/mcL (140-400); Red Blood Count 4.31 M/mcL (4.19-5.50); Red Cell Distribution Width 14.6 % (11.5-14.5); Segmented Neutrophils % 65.2 %
[2018-04-18 07:35] LABS: INR 2.5; Prothrombin Time 27.9 Seconds (9.4-12.1)
[2018-04-18 07:41] LABS: BUN/Creatinine Ratio 40 (6-26); Blood Urea Nitrogen 35 mg/dL (8-23); Calcium 9.3 mg/dL (8.6-10.3); Carbon Dioxide 27 mEq/L (23-29); Chloride 103 mEq/L (98-107); Glucose 134 mg/dL (70-105); Osmolality,Calculated 292 (280-300); Potassium 4.1 mEq/L (3.5-5.1); Sodium 136 mEq/L (136-145); eGFR For African Americans > 60 (> 60); eGFR For Non-African Americans > 60 (> 60)
[2018-04-18] MEDS: Aspirin Enteric Coated 81 MG Tablet PO SCH (10:03)
[2018-04-18] MEDS: BuPROPion XL (24 HR) 150 MG TABLET PO SCH (10:03)
[2018-04-18] MEDS: Multivit/Ca/Min/Fe/FA 1 TAB TABLET PO SCH (10:03)
[2018-04-18] MEDS: levoFLOXacin 750 MG TABLET PO SCH (10:04)
[2018-04-18 11:26] VITALS: BP 146/69
--- NOTE | 2018-04-18 11:40 | Discharge Summary ---
- NOTES TO OUTPATIENT PROVIDER Notes to Outpatient Provider: Pt was admitted for complaint of frequent falls at home. He was found to be orthostatic and has been started on Fludrocortisone 0.1mg with resolution of orthostasis. He will only be sent home with 5 days of medication due to concern of hypernatremia. Pt also treated for UTI, Proteus mirabilis, with Levaquin 750mg po x 10 days. He was discharged home with home health. Orders not resulted at time of discharge: Pending orders 04/15/18 13:27 Catecholamines,Fractionated Routine Renin, Activity Routine 04/19/18 04:00 INR/PT [Prothrombin Time INR] [COAG] AM 0400 04/20/18 04:00 INR/PT [Prothrombin Time INR] [COAG] AM 0400 Date of Encounter: 04/18/18 Time of Encounter: 11:10 - Discharge Diagnosis (1) CAD (coronary artery disease) Priority: Secondary Status: Chronic Assessment and Plan: Pt denies chest pain. Continue home medications. Qualifiers: Coronary Disease-Associated Artery/Lesion type: bypass graft [place] vs. transplanted heart: [place] heart Associated angina: with stable angina Qualified Code(s): I25.708 - Atherosclerosis of coronary artery bypass graft(s) , unspecified, with other forms of angina pectoris (2) Diabetes Priority: Secondary Status: Chronic Assessment and Plan: Continue home medications, diabetic diet, Accu-Cheks home regimen. 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 fib Continue telemetry Rate controlled Continue warfarin, INR therapeutic at 2.5. Qualifiers: Atrial fibrillation type: paroxysmal Qualified Code(s): I48.0 - Paroxysmal atrial fibrillation (4) Hypertension Priority: Secondary Status: Chronic Assessment and Plan: Chronic. Continue home medications. Qualifiers: Hypertension type: essential hypertension Qualified Code(s): I10 - Essential (primary) hypertension (5) Recurrent falls Priority: Secondary Status: Acute Assessment and Plan: Likely secondary to orthostasis. Pt states that he has returned to his baseline and is feeling well, ambulating without difficulty. Continue home medications and fludricortisone, follow up with PCP. (6) Orthostasis Priority: Secondary Status: Acute Assessment and Plan: Pt has returned to baseline, states that he is feeling better. Orthostatic VS WNL today. Pt was started on Fludricortisone 0.1mg po daily, will be sent home with 5 day supply. Pt will need to follow up with PCP to determine if medication should be continued and to monitor sodium level while on medication. Goal sodium level is not greater than 140. (7) Postural hypotension Priority: Secondary Status: Acute Assessment and Plan: Plan as above. (8) UTI (urinary tract infection) Priority: Secondary Status: Acute Assessment and Plan: Levaquin po Qualifiers: Urinary tract infection type: acute cystitis Hematuria presence: with hematuria Qualified Code(s): N30.01 - Acute cystitis with hematuria (9) Myoclonus Priority: Secondary Status: Resolved Assessment and Plan: Patient reports improvement in symptoms. Follow with primary care. (10) DVT prophylaxis Priority: Secondary Status: Acute Assessment and Plan: continue warfarin, therapeutic 2.5. (11) H/O: CVA (cerebrovascular accident) Priority: Secondary Status: Chronic Assessment and Plan: Chronic. Ambulate with walker and monitor for safety. Home health with aides, nursing, PT/OT (12) H/O carotid artery stenosis Priority: Secondary Status: Chronic Assessment and Plan: History of carotid artery stenosis Spoke with Dr. George Vascular surgery, rec f/u with vascular surgery upon discharge; optimization of medical therapy Hospital course: Mr. Salmeron is a 78 year old male with past medical history coronary artery disease, diabetes, A. fib, nasopharyngeal cancer, CHF, hypertension, hypothyroidism, rectal mass. Patient presented to the emergency department with complaints of recurrent falls. He reported lightheadedness and falling down 2-3 episodes of the past few days. No actual injuries. Patient was A. fib RVR on arrival that resolved with metoprolol IV 5 mg. Since that time he has been rate controlled. Patient found to have orthostatic hypotension during his visit. He is given fludrocortisone 0.1 mg with resolution of symptoms. He will be sent home with a prescription for 5 days worth of medication. Discussed with pharmacy, goal is to keep sodium around 140. Since we will not be able to monitor him, he will need to follow up with primary care so they can ascertain if he needs to continue this medication and to monitor electrolytes. Pt is also being treated for UTI, Proteus mirabilis, with Levaquin 750mg po daily. He received 5 days here and will be sent home with 5 days. Pt's renal function is stable and WNL. Labs and vitals are stable and pt is appropriate for discharge. Discharge discussed with: patient, nurse - Time Spent with Patient Total time spent providing and/or coordinating discharge services: Less than 30 minutes - Discharge Medications Prescriptions: Fludrocortisone Acetate [Florinef] 0.1 mg PO DAILY #5 tablet levoFLOXacin [Levaquin] 750 mg PO DAILY #5 tablet Home Medications: Insulin Glargine,Hum.rec.anlog [Lantus Solostar] 22 unit SQ HS 12/09/15 [History ] Acetaminophen/Butalbital/Caffe [Fioricet] 1 tab PO DAILY PRN 05/14/17 [History] Gabapentin [Neurontin] 100 mg PO HS 05/14/17 [History] Aspirin Enteric Coated [Aspirin EC] 81 mg PO DAILY 08/17/17 [History] Atorvastatin Calcium [Lipitor] 80 mg PO HS 08/17/17 [History] Nitroglycerin 0.4 mg SL Q5MIN PRN #14 tab.subl 08/22/17 [Rx] BuPROPion XL (24 HR) [Wellbutrin Xl] 150 mg PO DAILY 12/16/17 [History] Cyclobenzaprine HCl 5 mg PO HS 12/16/17 [History] Ezetimibe [Zetia] 10 mg PO DAILY 12/16/17 [History] Sertraline [Zoloft] 100 mg PO DAILY 12/16/17 [History] Topiramate [Topamax] 50 mg PO HS 12/16/17 [History] amLODIPine [Norvasc] 5 mg PO DAILY 12/16/17 [History] OxyCODONE/APAP 10/325 [Percocet 10/325 MG] 1 each PO Q6HR PRN 14 Days #56 tablet 01/08/18 [Rx] Metoprolol [Lopressor] 25 mg PO BID 02/25/18 [History] Multivit-Min/FA/Lycopen/Lutein [Adults 50+ Multivitamin Tablet] 1 tab PO DAILY 02/25/18 [History] Trazodone HCl 50 mg PO HS 02/25/18 [History] Warfarin [Coumadin] 7.5 mg PO MOWEFRSA 02/26/18 [History] Warfarin [Coumadin] 10 mg PO SUTUTH 02/26/18 [History] Lisinopril [Zestril] 10 mg PO BID 03/28/18 [History] Metformin HCl [Glucophage] 1,000 mg PO DAILY 03/28/18 [History] Omeprazole [PriLOSEC] 20 mg PO DAILY 03/28/18 [History] Tamsulosin HCl [Flomax] 0.4 mg PO DAILY 03/28/18 [History] Levothyroxine [Synthroid] 150 mcg PO DAILY 30 Days #30 tablet 03/30/18 [Rx] Fludrocortisone Acetate [Florinef] 0.1 mg PO DAILY #5 tablet 04/18/18 [Rx] levoFLOXacin [Levaquin] 750 mg PO DAILY #5 tablet 04/18/18 [Rx] Allergies/Adverse Reactions: 3 Allergy/AdvReac Type Severity Reaction Status Date / Time No Known Allergies Allergy Verified 04/11/18 15:17 Date of admission: 04/12/18 09:00 Primary care physician: Peter Carlson MD Consults: 04/12/18 15:03 Consult to Engineering Research Manager [CONS] Routine Reason for SW Consult: may need rehab 04/15/18 12:22 Consult to Nephrology [CONS] Routine Consulting Provider: Kidney Norton/ZOË/KRISTINA/CHANEL Reason for Consult: HTN and postural hypotension management Time Notified: 12:23 Call Completed: Yes Discharging clinician: Vielka Asher Anticipated date of discharge: 04/18/18 - Constitutional Vitals: Temp Pulse Resp BP Pulse Ox 97.7 F 71 16 146/69 93 04/18/18 11:00 04/18/18 11:00 04/18/18 11:00 04/18/18 11:00 04/18/18 11:00 General appearance: Present: cooperative, A&O X 3, pleasant, no acute distress, answers questions appropriately - Head Head exam: Present: atraumatic, normal inspection, normocephalic - Eye Eye exam: Present: normal appearance, conjuntiva pink, sclera anicteric - Neck Neck exam general surgery: Present: supple, trachea midline. Absent: lymphadenopathy, tenderness - Respiratory Respiratory exam: Present: CTAB. Absent: accessory muscle use, chest wall tenderness, rales, respiratory distress, rhonchi, wheezes - Cardiovascular Cardiovascular exam: Present: RRR, +S1, +S2. Absent: diastolic murmur, gallop, rubs, systolic murmur - GI/Abdominal GI/Abdominal exam: Present: normal bowel sounds, soft, no peritoneal signs. Absent: distended, hepatomegaly, tenderness - Extremities Exam Extremities exam: Present: normal capillary refill, normal inspection, warm, radial pulses palpable and symmetrical. Absent: calf tenderness, cyanotic, pedal edema, tenderness - Neurological Exam Neurological exam: Present: alert, oriented X3, no focal deficits. Absent: facial droop, speech deficit - Skin Skin exam: Present: dry, intact, normal color, warm. Absent: rash - Patient Status Disposition: Home, Self-Care Condition: Good Functional capacity at discharge: uses cane/walker Overall status at discharge: patient is progressing back to baseline - Discharge Instructions Instructions: Fludrocortisone Acetate (By mouth), Atrial Fibrillation (DC), Syncope (DC), Hypotension (DC), Fall Prevention (DC) Follow Up With: Peter Carlson MD [Primary Care Provider] - 04/23/18 9:45 am () Additional Instructions: Please follow up with Dr. Carlson in the next few days. I have given you enough medicine for 5 days, you will need it again tomorrow. Dr. Carlson should determine if you will need to continue the medication before you run out of it. Take your other medications as directed. Increase your fluid intake Return to the ER as needed for any other problems or concerns, or if your symptoms return or worsen. Return to your normal diet and activities as tolerated. - Diet and Activity Activity: increase activity as tolerated Diet: advance to your usual diet - VTE Documentation of Mechanical Device: Graduated compression elastic hosiery
[2018-04-18] MEDS ORDERED: *HR* Warfarin 7.5 MG TABLET PO ONE (18:00)
== END 2018-04-18 14:39 | disposition home or self-care (01) | DRG 312 ==
LOC: 3BNU 13:23 → EMEROO 13:23 → 3BNU 16:57
PROVIDERS: ADMIT Internal Medicine; ATTEND Internal Medicine

== ENCOUNTER 2018-05-08 12:32 | Observation (INO) ==
[2018-05-08] MEDS ORDERED: Aspirin 81 MG TAB.CHEW PO ONE (12:48)
[2018-05-08] MEDS ORDERED: Metoclopramide 10 MG/2 ML VIAL IVP ONE (12:59)
[2018-05-08 13:20] LABS: Basophils % 0.4 %; Eosinophils # 0.4 K/mcL (0.0-0.6); Eosinophils % 6.5 %; Hemoglobin 10.5 g/dL (12.9-16.9); Immature Granulocytes % 0.5 % (0-4); Lymphocytes # 0.9 K/mcL (0.6-4.6); Lymphocytes % 15.9 %; Mean Corpuscular HGB Conc 30.9 g/dL (31.6-35.5); Mean Corpuscular Hemoglobin 25.6 pg (28.0-33.3); Mean Corpuscular Volume 82.9 fL (83.0-100.0); Mean Platelet Volume 9.5 fL (9.4-12.4); Monocytes # 0.6 K/mcL (0.0-1.3); Monocytes % 10.1 %; Neutrophils # 3.7 K/mcL (1.6-8.9); Platelet Count 315 K/mcL (140-400); Red Cell Distribution Width 15.7 % (11.5-14.5); Segmented Neutrophils % 66.6 %
--- NOTE | 2018-05-08 13:26 | Emergency Department Note ---
Disposition Clinical Impression: Chest pain Qualifiers: Chest pain type: unspecified Qualified Code(s): R07.9 - Chest pain, unspecified Disposition: Admitted As Inpatient Referrals: Peter Carlson MD [Primary Care Provider] - General Adult HPI - General Chief complaint: ED Chest Pain Stated complaint: chest pain Time Seen by Provider: 05/08/18 12:47 Source: patient, family Limitations: language barrier - History of Present Illness Pain Scale: 6 - Related Data Home Medications Medication Instructions Recorded Confirmed Insulin Glargine,Hum.rec.anlog 22 unit SQ HS 12/09/15 04/11/18 [Lantus Solostar] Acetaminophen/Butalbital/Caffe 1 tab PO DAILY PRN 05/14/17 04/11/18 [Fioricet] Gabapentin [Neurontin] 100 mg PO HS 05/14/17 04/11/18 Aspirin Enteric Coated [Aspirin EC] 81 mg PO DAILY 08/17/17 04/11/18 Atorvastatin Calcium [Lipitor] 80 mg PO HS 08/17/17 04/11/18 BuPROPion XL (24 HR) [Wellbutrin 150 mg PO DAILY 12/16/17 04/11/18 Xl] Cyclobenzaprine HCl 5 mg PO HS 12/16/17 04/11/18 Ezetimibe [Zetia] 10 mg PO DAILY 12/16/17 04/11/18 Sertraline [Zoloft] 100 mg PO DAILY 12/16/17 04/11/18 Topiramate [Topamax] 50 mg PO HS 12/16/17 04/11/18 amLODIPine [Norvasc] 5 mg PO DAILY 12/16/17 04/11/18 Metoprolol [Lopressor] 25 mg PO BID 02/25/18 04/11/18 Multivit-Min/FA/Lycopen/Lutein 1 tab PO DAILY 02/25/18 04/11/18 [Adults 50+ Multivitamin Tablet] Trazodone HCl 50 mg PO HS 02/25/18 04/11/18 Warfarin [Coumadin] 7.5 mg PO MOWEFRSA 02/26/18 04/11/18 Warfarin [Coumadin] 10 mg PO SUTUTH 02/26/18 04/11/18 Lisinopril [Zestril] 10 mg PO BID 03/28/18 04/11/18 Metformin HCl [Glucophage] 1,000 mg PO DAILY 03/28/18 04/11/18 Omeprazole [PriLOSEC] 20 mg PO DAILY 03/28/18 04/11/18 Tamsulosin HCl [Flomax] 0.4 mg PO DAILY 03/28/18 04/11/18 Previous Rx's Medication Instructions Recorded Nitroglycerin 0.4 mg SL Q5MIN PRN #14 tab.subl 08/22/17 OxyCODONE/APAP 10/325 [Percocet 1 each PO Q6HR PRN 14 Days #56 01/08/18 10/325 MG] tablet Levothyroxine [Synthroid] 150 mcg PO DAILY 30 Days #30 tablet 03/30/18 Fludrocortisone Acetate [Florinef] 0.1 mg PO DAILY #5 tablet 04/18/18 levoFLOXacin [Levaquin] 750 mg PO DAILY #5 tablet 04/18/18 Allergies Allergy/AdvReac Type Severity Reaction Status Date / Time No Known Allergies Allergy Verified 05/08/18 12:35 Past Medical History - Past Medical History Medical history: Reports: atrial fibrillation, cancer, coronary artery disease, CVA, diabetes, hypertension, myocardial infarction, peripheral artery disease, SVT, thyroid disease Surgical history: Reports: angioplasty/stent, appendectomy, coronary bypass ( CABG), herniorrhaphy, LE vascular intervention, tracheostomy Psychiatric history: Reports: no psych history - Social History Smoking Status: Former smoker Smokeless Tobacco Status: No Alcohol use: Reports: none Drug use: Reports: none Physical Exam - General Limitations: language barrier General appearance: alert, in no apparent distress Course Vital Signs Temperature 98.7 F 05/08/18 12:34 Pulse Rate 68 05/08/18 12:34 Respiratory Rate 18 05/08/18 12:34 Blood Pressure 110/62 05/08/18 12:34 O2 Sat by Pulse Oximetry 95 05/08/18 12:34 Temperature 98.7 F 05/08/18 12:50 Pulse Rate 68 05/08/18 12:50 Respiratory Rate 18 05/08/18 12:50 Blood Pressure 110/62 05/08/18 12:50 O2 Sat by Pulse Oximetry 95 05/08/18 12:50 Oxygen Delivery Oxygen Delivery Room Air Medical Decision Making - Lab Data Result diagrams: 05/08/18 12:36 Lab Results 05/08/18 Range/Units 12:36 WBC 5.5 (4.3-11.1) K/mcL RBC 4.10 L (4.19-5.50) M/mcL Hgb 10.5 L (12.9-16.9) g/dL Hct 34.0 L (37.5-50.1) % MCV 82.9 L (83.0-100.0) fL MCH 25.6 L (28.0-33.3) pg MCHC 30.9 L (31.6-35.5) g/dL RDW 15.7 H (11.5-14.5) % Plt Count 315 (140-400) K/mcL MPV 9.5 (9.4-12.4) fL Immature Gran % 0.5 (0-4) % Seg Neutrophils % 66.6 % Lymphocytes % 15.9 % Monocytes % 10.1 % Eosinophils % 6.5 % Basophils % 0.4 % Neutrophils # 3.7 (1.6-8.9) K/mcL Lymphocytes # 0.9 (0.6-4.6) K/mcL Monocytes # 0.6 (0.0-1.3) K/mcL Eosinophils # 0.4 (0.0-0.6) K/mcL Basophils # 0.0 (0.0-0.2) K/mcL Attestation Statement - Attestation Attestation: I examined this patient and my medical decision-making was reviewed with the Resident Physician. I agree with the documented findings, disposition and treatment plan as described except to the extent set forth below. 78 year old male presents to the ED with complaints of chest pain and headache. He states that his chest pain has been on and off for the past few days and that his headache has been chornic in natre over the past month. Patient states that his jessica presssure radiates into his jaw and that it is simlair to his presentation when he required a triple bypass and currnetly has 4 cardiac stents. PAtinet appreciate exertional dyspnea and states that it has been worsening. PAtient will recieve a cardaic workup with HCT, asa therapy with headache cocktail and admitted to medicine.
[2018-05-08 13:29] LABS: INR 1.9; Prothrombin Time 21.5 Seconds (9.4-12.1)
[2018-05-08 13:32] LABS: Activated Partial Thrombo Time 39.9 Seconds (26.0-36.0)
[2018-05-08 13:39] LABS: BUN/Creatinine Ratio 26 (6-26); Blood Urea Nitrogen 24 mg/dL (8-23); Calcium 9.3 mg/dL (8.6-10.3); Carbon Dioxide 31 mEq/L (23-29); Chloride 99 mEq/L (98-107); Glucose 155 mg/dL (70-105); Osmolality,Calculated 287 (280-300); Potassium 4.9 mEq/L (3.5-5.1); Sodium 135 mEq/L (136-145); Troponin I < 0.03 ng/mL (< 0.04); eGFR For Non-African Americans > 60 (> 60)
[2018-05-08] MEDS ORDERED: Isovue-370 500 ML INFUS..BTL IV ONE (13:40)
[2018-05-08] MEDS ORDERED: Nitroglycerin 0.4 MG TAB.SUBL SL PRN ×2 (13:40→18:24)
--- NOTE | 2018-05-08 13:45 | Emergency Department Note ---
Disposition Clinical Impression: Unstable angina Chest pain Qualifiers: Chest pain type: unspecified Qualified Code(s): R07.9 - Chest pain, unspecified Disposition: Admitted As Inpatient Referrals: Peter Carlson MD [Primary Care Provider] - Forms: ED Satisfaction Letter General Adult HPI - General Chief complaint: ED Chest Pain Stated complaint: chest pain Time Seen by Provider: 05/08/18 12:47 Source: patient, family Limitations: no limitations, language barrier (has trach) Nursing Notes Reviewed: Yes Vital Signs Reviewed: Yes - History of Present Illness HPI Narrative: Patient is a 78-year-old female presenting with chest pain to the emergency department. Patient has past medical history of CABG 3 in 1999, CAD, diabetes , hypertension, hyperlipidemia. Patient states that pain began around 800 this morning in the mid chest, described as pressure, that radiated into his sides bilaterally and into his back, has been intermittent, each episode last for about 1 hour. He does have associated diaphoresis and shortness of breath with increased cough and sputum production with generalized weakness in both upper extremities. Chest pain seems to be nonexertional, stopped on its own, has not taken nitroglycerin. Patient states that this episode seems very similar to the episode he had in 1999 when he was diagnosed with [place]. Patient also states that he has been having a headache over the past few weeks, which has progressively been getting worse over the past few days, described to be a ache throughout his entire head. He denies recent fall or loss of consciousness. Patient does currently take Coumadin. Last INR was yesterday in the office and was stated to be normal. Patient also reports having abdominal pain for the past few days progressively getting worse, described as a sharp pain throughout. States that the pain is increased with any touching or movement. Also reports dysuria and hematuria denies increased frequency. Per in the room, the patient does at times cath himself as he has history of loss of sensation and bladder control. Patient denies nausea, vomiting, diarrhea, hematochezia, constipation. Patient denies any focal weakness, numbness, tingling, confusion or change in mental status. Pain Scale: 6 - Related Data Home Medications Medication Instructions Recorded Confirmed Insulin Glargine,Hum.rec.anlog 22 unit SQ HS 12/09/15 05/08/18 [Lantus Solostar] Acetaminophen/Butalbital/Caffe 1 tab PO DAILY PRN 05/14/17 05/08/18 [Fioricet] Gabapentin [Neurontin] 100 mg PO HS 05/14/17 05/08/18 Aspirin Enteric Coated [Aspirin EC] 81 mg PO DAILY 08/17/17 05/08/18 Atorvastatin Calcium [Lipitor] 80 mg PO HS 08/17/17 05/08/18 BuPROPion XL (24 HR) [Wellbutrin 150 mg PO DAILY 12/16/17 05/08/18 Xl] Cyclobenzaprine HCl 5 mg PO HS 12/16/17 05/08/18 Ezetimibe [Zetia] 10 mg PO DAILY 12/16/17 05/08/18 Sertraline [Zoloft] 100 mg PO DAILY 12/16/17 05/08/18 Topiramate [Topamax] 50 mg PO HS 12/16/17 05/08/18 amLODIPine [Norvasc] 5 mg PO DAILY 12/16/17 05/08/18 Metoprolol [Lopressor] 25 mg PO BID 02/25/18 05/08/18 Multivit-Min/FA/Lycopen/Lutein 1 tab PO DAILY 02/25/18 05/08/18 [Adults 50+ Multivitamin Tablet] Trazodone HCl 50 mg PO HS 02/25/18 05/08/18 Lisinopril [Zestril] 10 mg PO BID 03/28/18 05/08/18 Metformin HCl [Glucophage] 1,000 mg PO DAILY 03/28/18 05/08/18 Omeprazole [PriLOSEC] 20 mg PO DAILY 03/28/18 05/08/18 Tamsulosin HCl [Flomax] 0.4 mg PO DAILY 03/28/18 05/08/18 Warfarin [Coumadin] 5 mg PO MOWEFR 05/08/18 05/08/18 Warfarin [Coumadin] 7.5 mg PO SUTUTHSA 05/08/18 05/08/18 Previous Rx's Medication Instructions Recorded Nitroglycerin 0.4 mg SL Q5MIN PRN #14 tab.subl 08/22/17 OxyCODONE/APAP 10/325 [Percocet 1 each PO Q6HR PRN 14 Days #56 01/08/18 10/325 MG] tablet Levothyroxine [Synthroid] 150 mcg PO DAILY 30 Days #30 tablet 03/30/18 Fludrocortisone Acetate [Florinef] 0.1 mg PO DAILY #5 tablet 04/18/18 Allergies Allergy/AdvReac Type Severity Reaction Status Date / Time No Known Allergies Allergy Verified 05/08/18 12:35 All systems ED: reviewed and negative except as stated. Review of Systems: As Per HPI Constitutional: Denies: fever, chills ENT ED: Denies: congestion Cardiovascular: Reports: chest pain, dyspnea on exertion, edema. Denies: palpitations, orthopnea, syncope Respiratory: Reports: dyspnea. Denies: cough, wheezes, hemoptysis Gastrointestinal: Reports: abdominal pain. Denies: nausea, vomiting, diarrhea, constipation, hematemesis, melena Genitourinary: Reports: dysuria, hematuria. Denies: urgency, frequency Musculoskeletal: Reports: back pain. Denies: neck pain Integumentary: Denies: rash Neurological: Reports: headache. Denies: weakness, numbness, paresthesias, confusion Endocrine: Reports: fatigue Past Medical History - Past Medical History Medical history: Reports: atrial fibrillation, cancer, coronary artery disease, CVA, diabetes, hypertension, myocardial infarction, peripheral artery disease, SVT, thyroid disease Surgical history: Reports: angioplasty/stent, appendectomy, coronary bypass ( CABG), herniorrhaphy, LE vascular intervention, tracheostomy Psychiatric history: Reports: no psych history - Social History Smoking Status: Former smoker Smokeless Tobacco Status: No Alcohol use: Reports: none Drug use: Reports: none Physical Exam - General Limitations: no limitations, language barrier General appearance: alert, in no apparent distress - Head Head exam: atraumatic, normocephalic - Eye Eye exam: Present: normal appearance, PERRL, EOMI - ENT ENT exam: normal exam, mucous membranes moist - Neck Neck exam: Present: normal inspection - Chest Chest inspection: Present: normal inspection, symmetric chest wall rise - Respiratory Respiratory exam: Present: other (Rales bilaterally at the bases). Absent: respiratory distress, wheezes, accessory muscle use - Cardiovascular Cardiovascular exam: Present: regular rate, normal rhythm - Abdominal Exam Abdominal exam: Present: soft, tenderness (Diffusely throughout the abdomen), guarding, normal bowel sounds. Absent: rebound, rigidity - Extremities Exam Extremities exam: Present: normal inspection, normal capillary refill, pedal edema (1+ edema lower extremities bilaterally). Absent: tenderness, calf tenderness - Expanded Lower Extremity Exam Neurovascular/Tendon exam: Present: normal capillary refill. Absent: pulse deficit (2 out of 4 femoral, radial), motor deficit, sensory deficit - Neurological Exam Neurological exam: Present: alert, oriented X3, CN II-XII intact. Absent: motor sensory deficit - Psychiatric Psychiatric exam: Present: normal affect, normal mood - Skin Skin exam: Present: warm, dry, intact. Absent: diaphoresis Course Vital Signs Temperature 98.7 F 05/08/18 12:34 Pulse Rate 68 05/08/18 12:34 Respiratory Rate 18 05/08/18 12:34 Blood Pressure 110/62 05/08/18 12:34 O2 Sat by Pulse Oximetry 95 05/08/18 12:34 Temperature 98.7 F 05/08/18 12:50 Pulse Rate 73 05/08/18 15:35 Respiratory Rate 20 05/08/18 15:35 Blood Pressure 112/57 05/08/18 15:35 O2 Sat by Pulse Oximetry 90 05/08/18 15:35 Oxygen Delivery Oxygen Delivery Room Air Medical Decision Making - [facility] Narrative Medical decision making narrative: Patient is a 78-year-old male presenting with chest pain with past medical history of CAD status post CABG 3 in 1999, diabetes, hypertension, hyperlipidemia. Emergency Department patient has remained stable, vital signs have remained unremarkable. Laboratory workup revealed hemoglobin at 10.5, elevated PT, PTT all of which appear to be about patient's baseline. BNP at 110, however, below patient's baseline. CT noncontrast of the head revealed chronic stable changes with no acute intracranial process. Chest x-ray showed no acute process. CTA of the chest and abdomen pelvis revealed no evidence of acute aortic or thoracic dissection. Did show asymmetric interstitial changes, multiple enlarged lymph nodes throughout which were suggestive of neoplastic versus infectious etiology. Was recommended by radiology to have CT scan performed in the next 3 months for follow-up. During his emergency department stay, patient was given Benadryl and Reglan. Patient was also given aspirin and nitroglycerin 0.4 mg, 1 dose for chest pain which also did help to relieve his chest pain symptoms. At this point in time it is recommended that the patient be admitted for inpatient follow-up, for ACS rule out. Patient was discussed with the hospitalist at - Medical Records Medical records reviewed: Yes I reviewed the patient's medical records. - Lab Data Lab results reviewed: Yes I reviewed the patient's lab results. Result diagrams: 05/08/18 12:36 05/08/18 12:36 Lab Results 05/08/18 05/08/18 05/08/18 Range/Units 12:36 12:36 12:49 WBC 5.5 (4.3-11.1) K/mcL RBC 4.10 L (4.19-5.50) M/mcL Hgb 10.5 L (12.9-16.9) g/dL Hct 34.0 L (37.5-50.1) % MCV 82.9 L (83.0-100.0) fL MCH 25.6 L (28.0-33.3) pg MCHC 30.9 L (31.6-35.5) g/dL RDW 15.7 H (11.5-14.5) % Plt Count 315 (140-400) K/mcL MPV 9.5 (9.4-12.4) fL Immature Gran % 0.5 (0-4) % Seg Neutrophils % 66.6 % Lymphocytes % 15.9 % Monocytes % 10.1 % Eosinophils % 6.5 % Basophils % 0.4 % Neutrophils # 3.7 (1.6-8.9) K/mcL Lymphocytes # 0.9 (0.6-4.6) K/mcL Monocytes # 0.6 (0.0-1.3) K/mcL Eosinophils # 0.4 (0.0-0.6) K/mcL Basophils # 0.0 (0.0-0.2) K/mcL PT 21.5 H (9.4-12.1) Seconds INR 1.9 APTT 39.9 H (26.0-36.0) Seconds Sodium 135 L (136-145) mEq/L Potassium 4.9 (3.5-5.1) mEq/L Chloride 99 (98-107) mEq/L Carbon Dioxide 31 H (23-29) mEq/L BUN 24 H (8-23) mg/dL Creatinine 0.91 (0.70-1.30) mg/dL Est GFR ( Amer) > 60 (> 60) Est GFR (Non-Af Amer) > 60 (> 60) BUN/Creatinine Ratio 26 (6-26) Glucose 155 H (70-105) mg/dL Calculated Osmolality 287 (280-300) Calcium 9.3 (8.6-10.3) mg/dL Troponin I < 0.03 (< 0.04) ng/mL B-Natriuretic Peptide (Less than 100) pg/mL 05/08/18 Range/Units 13:05 WBC (4.3-11.1) K/mcL RBC (4.19-5.50) M/mcL Hgb (12.9-16.9) g/dL Hct (37.5-50.1) % MCV (83.0-100.0) fL MCH (28.0-33.3) pg MCHC (31.6-35.5) g/dL RDW (11.5-14.5) % Plt Count (140-400) K/mcL MPV (9.4-12.4) fL Immature Gran % (0-4) % Seg Neutrophils % % Lymphocytes % % Monocytes % % Eosinophils % % Basophils % % Neutrophils # (1.6-8.9) K/mcL Lymphocytes # (0.6-4.6) K/mcL Monocytes # (0.0-1.3) K/mcL Eosinophils # (0.0-0.6) K/mcL Basophils # (0.0-0.2) K/mcL PT (9.4-12.1) Seconds INR APTT (26.0-36.0) Seconds Sodium (136-145) mEq/L Potassium (3.5-5.1) mEq/L Chloride (98-107) mEq/L Carbon Dioxide (23-29) mEq/L BUN (8-23) mg/dL Creatinine (0.70-1.30) mg/dL Est GFR ( Amer) (> 60) Est GFR (Non-Af Amer) (> 60) BUN/Creatinine Ratio (6-26) Glucose (70-105) mg/dL Calculated Osmolality (280-300) Calcium (8.6-10.3) mg/dL Troponin I (< 0.04) ng/mL B-Natriuretic Peptide 110 H (Less than 100) pg/mL - Radiology Data Radiology results reviewed: Yes I reviewed the patient's radiology results. Chest X-Ray 05/08/18 12:36 IMPRESSION: No acute process within the chest. D/ / 05/08/2018 14:12:46 Vignesh Lawrence MD / bert Interpreting Provider: Vignesh Lawrence MD Head CT 05/08/18 12:59 IMPRESSION: Stable CT brain with no acute intracranial abnormality and chronic findings as described. D/ / Adal Chisholm MD / Adal Chisholm MD Interpreting Provider: Adal Chisholm MD Abdomen/Pelvis CTA 05/08/18 13:40 IMPRESSION: 1. Negative evaluation for aortic dissection. 2. A 34 mm infrarenal abdominal aortic aneurysm status post stenting. 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 3. In the chest, there is asymmetric interstitial change on the right side compared to the left, along with areas of small pleural fluid, pleural thickening and calcification. Ground-glass attenuating foci also present. Associated diffuse moderate airway thickening on the right side. Additionally, prominent lymph nodes are identified, most conspicuously measuring up to 2 cm in the right hilum. Constellation of findings is quite concerning for a developing neoplastic process; however, atypical inflammatory or infectious etiologies could present similarly. Findings appear new/progressed compared to prior of 10/16/2017. Please correlate with the patient's clinical history, and consider a follow-up CT of the chest in 3 months' time. Alternatively, PET-CT could be considered. 4. In the abdomen and pelvis, there is moderate urinary bladder wall thickening and prostatic hypertrophy. Urinary bladder wall thickening was present in October 2017. Motion mildly limits sensitivity. 5. No significant adenopathy in the abdomen or pelvis. 6. Please note that this evaluation is somewhat limited secondary to a lack of access to the patient's electronic medical record. D/ / 05/08/2018 15:34:13 Isaac Frazier / suzette Interpreting Provider: Isaac Frazier Chest CTA 05/08/18 13:40 IMPRESSION: 1. Negative evaluation for aortic dissection. 2. A 34 mm infrarenal abdominal aortic aneurysm status post stenting. 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 3. In the chest, there is asymmetric interstitial change on the right side compared to the left, along with areas of small pleural fluid, pleural thickening and calcification. Ground-glass attenuating foci also present. Associated diffuse moderate airway thickening on the right side. Additionally, prominent lymph nodes are identified, most conspicuously measuring up to 2 cm in the right hilum. Constellation of findings is quite concerning for a developing neoplastic process; however, atypical inflammatory or infectious etiologies could present similarly. Findings appear new/progressed compared to prior of 10/16/2017. Please correlate with the patient's clinical history, and consider a follow-up CT of the chest in 3 months' time. Alternatively, PET-CT could be considered. 4. In the abdomen and pelvis, there is moderate urinary bladder wall thickening and prostatic hypertrophy. Urinary bladder wall thickening was present in October 2017. Motion mildly limits sensitivity. 5. No significant adenopathy in the abdomen or pelvis. 6. Please note that this evaluation is somewhat limited secondary to a lack of access to the patient's electronic medical record. D/ / 05/08/2018 15:34:13 Isaac Frazier / suzette Interpreting Provider: Isaac Frazier - EKG Data EKG #1 EKG attestation: Yes I reviewed and interpreted this EKG. EKG results narrative: EKG on 05/08/2018 at 1241 with a ventricular rate of 77 bpm, left axis deviation, regular rhythm, SD interval 177, QRS duration 114, QT at 386, QTC of 417, T-wave inversion at 3, no ST elevation noted.
[2018-05-08] MEDS ORDERED: Naloxone 0.4 MG/ML INJ IVP PRN (18:19)
[2018-05-08] MEDS ORDERED: Acetaminophen 325 MG TABLET PO PRN (18:19)
[2018-05-08] MEDS ORDERED: traMADol 50 MG TABLET PO PRN (18:19)
[2018-05-08] MEDS ORDERED: D5% in Water 1,000 ML IVC PRN (18:27)
[2018-05-08] MEDS ORDERED: *HR* Dextrose 50 % in Water (Syg) 50 ML SYRINGE IVP PRN (18:27)
[2018-05-08] MEDS ORDERED: Dextrose Gel 15 GM/37.5 ML TUBE PO PRN ×2 (18:27)
--- NOTE | 2018-05-08 18:37 | Internal Med History&Physical ---
Date of Encounter: 05/08/18 Time of Encounter: 17:45 Internal Medicine - H&P: HPI Chief complaint: chest pain Admitted From: Emergency Dept Plans for Post Hospital Care: Home History of present illness: Mr. Salmeron is a 78 year old male who presents to the ER with complaints of substernal chest pain and pressure. Symptoms started earlier today and they were associated with diaphoresis, nausea, and dyspnea. Because of the ongoing chest pain, he came to ER. He was seen and evaluated in the ER and admitted to hospitalist service. Workup was negative, but given his past medical history of coronary disease and CABG, he was admitted to hospitalist service. Upon my assessment of the patient in the ER, he still has minimal chest pain, but it is much improved since earlier today. He denies any fevers, productive cough, wheezing, or worsening shortness of breath. 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 He denies any purulent sputum from his tracheostomy stoma. He denies any hemoptysis. He states the chest pain he experienced was very similar to that of his [place] several years ago. Of note, he had a left heart catheterization here in August, , which showed significant coronary disease and obstructive lesions in his bypassed vessels as well. I reviewed his labs and workup in the ER, including a CTA of the chest and abdomen he had. He did not have any evidence of aortic dissection, but he did have a finding of a 2 cm lymph node/nodule on his right hilum concerning for possible neoplastic disease. Patient denies any malignancy to his chest, but he is being followed closely by oncology for his head and neck cancer. He did have recent pneumonia he states, however. I advised him to follow up closely with his cancer physician and consider further imaging in the coming future for further evaluation of this nodule. Patient voiced understanding. Past Med Surg Social Fam HX - Past Medical History Attestation: Yes The following information was validated with the patient. Source: patient, old records reviewed Medical history: atrial fibrillation, cancer, coronary artery disease, CVA, diabetes, hypertension, myocardial infarction, peripheral artery disease, SVT, thyroid disease Additional medical history: nose cancer. trach Psychiatric history: no psych history - Past Surgical History Surgical History: angioplasty/stent, appendectomy, coronary bypass (CABG), herniorrhaphy, LE vascular intervention, tracheostomy Additional surgical history: BACK SURGERY, tracheostomy - Social History Smoking Status: Former smoker Smokeless Tobacco Status: No Alcohol use: none Drug use: none Current living situation: Home Activity Level: Independent ambulation Recent Out of Country Travel Within the Last 8 Weeks: No - Family History Mother Living Status: Hx Family Cardiac Disorders: No Hx Family Respiratory Disorders: No Hx Family Cancer: No Hx Family GI Disorders: No Hx Family Endocrine Disorder: No Hx Family Neuromuscular Disorders: No Hx Family Neurologic Disorders: No Hx Family HEENT Disorders: No Hx Family Autoimmune Disorders: No Father Living Status: Hx Family Cardiac Disorders: No Hx Family Respiratory Disorders: No Hx Family Cancer: No Hx Family GI Disorders: No Hx Family Endocrine Disorder: No Hx Family Neuromuscular Disorders: No Hx Family Neurologic Disorders: No Hx Family HEENT Disorders: No Hx Family Autoimmune Disorders: No Sister Living Status: Hx Family Cancer: Yes (lung cancer) Internal Medicine - H&P: Meds Insulin Glargine,Hum.rec.anlog [Lantus Solostar] 22 unit SQ HS 12/09/15 [History ] Acetaminophen/Butalbital/Caffe [Fioricet] 1 tab PO DAILY PRN 05/14/17 [History] Gabapentin [Neurontin] 100 mg PO HS 05/14/17 [History] Aspirin Enteric Coated [Aspirin EC] 81 mg PO DAILY 08/17/17 [History] Atorvastatin Calcium [Lipitor] 80 mg PO HS 08/17/17 [History] Nitroglycerin 0.4 mg SL Q5MIN PRN #14 tab.subl 08/22/17 [Rx] BuPROPion XL (24 HR) [Wellbutrin Xl] 150 mg PO DAILY 12/16/17 [History] Cyclobenzaprine HCl 5 mg PO HS 12/16/17 [History] Ezetimibe [Zetia] 10 mg PO DAILY 12/16/17 [History] Sertraline [Zoloft] 100 mg PO DAILY 12/16/17 [History] Topiramate [Topamax] 50 mg PO HS 12/16/17 [History] amLODIPine [Norvasc] 5 mg PO DAILY 12/16/17 [History] OxyCODONE/APAP 10/325 [Percocet 10/325 MG] 1 each PO Q6HR PRN 14 Days #56 tablet 01/08/18 [Rx] Metoprolol [Lopressor] 25 mg PO BID 02/25/18 [History] Multivit-Min/FA/Lycopen/Lutein [Adults 50+ Multivitamin Tablet] 1 tab PO DAILY 02/25/18 [History] Trazodone HCl 50 mg PO HS 02/25/18 [History] Lisinopril [Zestril] 10 mg PO BID 03/28/18 [History] Metformin HCl [Glucophage] 1,000 mg PO DAILY 03/28/18 [History] Omeprazole [PriLOSEC] 20 mg PO DAILY 03/28/18 [History] Tamsulosin HCl [Flomax] 0.4 mg PO DAILY 03/28/18 [History] Levothyroxine [Synthroid] 150 mcg PO DAILY 30 Days #30 tablet 03/30/18 [Rx] Fludrocortisone Acetate [Florinef] 0.1 mg PO DAILY #5 tablet 04/18/18 [Rx] Warfarin [Coumadin] 5 mg PO MOWEFR 05/08/18 [History] Warfarin [Coumadin] 7.5 mg PO SUTUTHSA 05/08/18 [History] 3 Allergy/AdvReac Type Severity Reaction Status Date / Time No Known Allergies Allergy Verified 05/08/18 12:35 - Constitutional Constitutional: no chills, no fever(s), no night sweats - EENT Eyes: no blurry vision, no change in vision Ears: no ear pain, no tinnitus Nose, mouth and throat: no nasal congestion, no sinus pressure, no sore throat - Cardiovascular Cardiovascular ROS IM: chest pain, diaphoresis, dyspnea, dyspnea on exertion, no edema, no orthopnea, no paroxysmal nocturnal dyspnea, no syncope - Respiratory Respiratory: cough, no hemoptysis, no wheezing, no chest congestion, no excessive phlegm production, no change in phlegm color, no pain with cough - Gastrointestinal Gastrointestinal: no abdominal pain, no diarrhea, no hematemesis, no hematochezia, no melena, no nausea, no vomiting - Genitourinary Genitourinary ROS male: no dysuria, no flank pain, no hematuria - Musculoskeletal Musculoskeletal ROS IM: no arthralgias, no back pain - Integumentary Integumentary IM: no rash, no jaundice - Neurological Neurological ROS: no dizziness, no focal weakness, no frequent falls, no headache(s) - Psychiatric Psychiatric: no anxiety, no depression - Endocrine Endocrine IM: no polydipsia, no polyuria - Hematologic/Lymphatic Hematologic/Lymphatic: easy bruising - Allergic/Immunologic Allergic/Immunologic: no wheezing, no GI upset with certain foods - Constitutional Vitals: Temp Pulse Resp BP Pulse Ox 98.7 F 63 13 132/62 93 05/08/18 12:50 05/08/18 17:47 05/08/18 17:47 05/08/18 17:47 05/08/18 17:47 General appearance: Present: cooperative, A&O X 3, pleasant, no acute distress, answers questions appropriately - Head Head exam: Present: atraumatic, normal inspection - Eye Eye exam: Present: EOMI, PERRL. Absent: scleral icterus Pupils: Present: normal accommodation - ENT ENT exam: Present: mucous membranes dry, normal exam, normal oropharynx Additional comments: tracheostomy stoma clean, dry, without purulent sputum - Neck Neck exam general surgery: Present: full ROM, supple. Absent: lymphadenopathy, tenderness, nuchal rigidity, thyromegaly - Respiratory Respiratory exam: Present: CTAB. Absent: chest wall tenderness, rales, respiratory distress, rhonchi, wheezes - Cardiovascular Cardiovascular exam: Present: RRR, +S1, +S2. Absent: diastolic murmur, systolic murmur - GI/Abdominal GI/Abdominal exam: Present: normal bowel sounds, soft. Absent: guarding, hepatomegaly, mass, rebound, splenomegaly, tenderness - Extremities Exam Extremities exam: Present: full ROM, normal capillary refill, warm, radial pulses palpable and symmetrical. Absent: calf tenderness, joint swelling, pedal edema, tenderness - Back Exam Back exam: Present: normal inspection. Absent: CVA tenderness (L), CVA tenderness (R) - Neurological Exam Neurological exam: Present: alert, CN II-XII intact, oriented X3, no focal deficits - Psychiatric Psychiatric exam: Present: normal affect, normal mood - Skin Skin exam: Present: dry, warm. Absent: rash Internal Med - H&P Results - Labs CBC & Chem 7: 05/08/18 12:36 05/08/18 12:36 - EKG Data -: EKG Interpreted by Myself - EKG Data Prior EKG available for review: no EKG comments: 05/08/18 18:41 NSR, LAD, no acute ST-T changes - Diagnostic Studies Chest x-ray Status: image reviewed by me (negative) CT scan - chest Additional comments: Report reviewed -- as in [facility] - Assessment and plan (1) Chest pain Current Visit: Yes Status: Acute Assessment and plan: 1. Will proceed with trending troponins and EKG's. 2. Will order ECHO to evluate LVEF. 3. I reviewed his last [facility] findings done in August,. 4. Stress testing will likely be abnormal given his history and CABG. Will consult cardiology for further guidance as to whether further testing is necessary. Qualifiers: Chest pain type: chest pain due to myocardial ischemia Ischemic chest pain type: stable angina pectoris Qualified Code(s): I20.8 - Other forms of angina pectoris (2) Atrial fibrillation Current Visit: Yes Status: Chronic Assessment and plan: 1. Currently in NSR. 2. Continue home medications as appropriate. 3. Daily PT/INR and Coumadin dosing per pharmacy. Qualifiers: Atrial fibrillation type: paroxysmal Qualified Code(s): I48.0 - Paroxysmal atrial fibrillation (3) Abnormal CT scan, chest Current Visit: Yes Status: Acute Assessment and plan: 1. I discussed the findings with patient as there is a concern for possible neoplastic process along right hilum vs reactive lymph node from recent respiratory infection. 2. I advised close follow up with his oncologist -- Dr. Alexandre. 3. Further testing/imaging per oncology. 4. Patient voiced understanding/agreement. (4) DVT prophylaxis Current Visit: Yes Status: Acute Assessment and plan: 1. Currently therapeutic on Coumadin -- dosing per pharmacy.
[2018-05-08 20:58] LABS: Estimated Average Glucose 183 mg/dl
[2018-05-08] MEDS: Insulin LISPRO 300 UNITS/3 ML VIAL SQ SCH (21:35)
[2018-05-08] MEDS: Topiramate 25 MG TABLET PO SCH (21:57)
[2018-05-08] MEDS: Gabapentin 100 MG CAPSULE PO SCH (21:57)
[2018-05-08] MEDS: traZODone 50 MG TABLET PO SCH (21:57)
[2018-05-08] MEDS: Insulin DETEMIR 100 UNIT/ML X5UNITS SQ SCH (21:58)
--- NOTE | 2018-05-08 22:26 | Electrocardiograph Report ---
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
[2018-05-09 00:47] LABS: Basophils % 0.4 %; Eosinophils # 0.4 K/mcL (0.0-0.6); Eosinophils % 7.6 %; Hematocrit 30.9 % (37.5-50.1); Hemoglobin 9.5 g/dL (12.9-16.9); Immature Granulocytes % 0.6 % (0-4); Lymphocytes # 1.1 K/mcL (0.6-4.6); Lymphocytes % 21.3 %; Mean Corpuscular HGB Conc 30.7 g/dL (31.6-35.5); Mean Corpuscular Hemoglobin 25.5 pg (28.0-33.3); Mean Corpuscular Volume 82.8 fL (83.0-100.0); Mean Platelet Volume 9.5 fL (9.4-12.4); Monocytes # 0.6 K/mcL (0.0-1.3); Monocytes % 11.8 %; Neutrophils # 3.1 K/mcL (1.6-8.9); Platelet Count 277 K/mcL (140-400); Red Blood Count 3.73 M/mcL (4.19-5.50); Red Cell Distribution Width 15.9 % (11.5-14.5); Segmented Neutrophils % 58.3 %
[2018-05-09 00:56] LABS: INR 2.1; Prothrombin Time 23.9 Seconds (9.4-12.1)
[2018-05-09 01:06] LABS: Alanine Aminotransferase 19 Units/L (7-52); Alkaline Phosphatase 79 Units/L (34-104); Aspartate Amino Transferase 20 Units/L (13-39); BUN/Creatinine Ratio 25 (6-26); Bilirubin,Total 0.3 mg/dL (0.3-1.0); Blood Urea Nitrogen 23 mg/dL (8-23); Carbon Dioxide 31 mEq/L (23-29); Chloride 102 mEq/L (98-107); Chol/HDL Ratio 4.2 (0-4.9); Cholesterol 109 mg/dL (< 200); Glucose 211 mg/dL (70-105); HDL Cholesterol 26 mg/dL (40-59); LDL Cholesterol,Calculated 57 mg/dL (0-99); Magnesium 1.8 mg/dL (1.6-2.6); Osmolality,Calculated 292 (280-300); Potassium 4.5 mEq/L (3.5-5.1); Sodium 136 mEq/L (136-145); Triglycerides 128 mg/dL (< 150); eGFR For Non-African Americans > 60 (> 60)
[2018-05-09] MEDS: *HR* OxyCODONE Immed Rel 5 MG TABLET PO PRN ×2 (04:04→15:58)
[2018-05-09] MEDS: Aspirin Enteric Coated 81 MG Tablet PO SCH (09:32)
[2018-05-09] MEDS: (Ezetimibe [Zetia] 10 MG) PO SCH (09:33)
[2018-05-09] MEDS: amLODIPine 5 MG TABLET PO SCH (09:33)
[2018-05-09] MEDS: Multivit/Ca/Min/Fe/FA 1 TAB TABLET PO SCH (09:33)
[2018-05-09] MEDS: Insulin LISPRO 300 UNITS/3 ML VIAL SQ SCH ×4 (09:35→21:17)
--- NOTE | 2018-05-09 11:40 | Cardiology Consult Note ---
Date of Encounter: 05/09/18 Time of Encounter: 10:00 Assessment and Plan (1) Chest pain Current Visit: Yes Status: Acute Per cardiology: -Admitted with chest pain. Non-exertional. -Denies current chest pain. -troponins negative x4. -No acute ischemic ECG changes. -08/2017 [facility] with 90% mid LAD, 50% mid circumflex, 60% proximal OM, 70-80% distal circumflex with MINDA placed, 100% mid RCA, LOMAX to LAD patent with 30-40% proximal LOMAX stenosis, SVG to OM1 is occluded, SVG to PDA is occluded. -03/2018 TTE with LVEF 55-60%, mild concentric LVH, RV dilated with normal function, no segmental wall motion abnormalities noted. -Will check Limited TTE. If LVEF remains preserved, suspect outpatient follow up. -Of note, had been off of imdur in outpateint setting due to hypotension, can consider addition of imdur. Currently BPs 150s systolic. Qualifiers: Chest pain type: unspecified Qualified Code(s): R07.9 - Chest pain, unspecified (2) Abnormal CT scan, chest Current Visit: Yes Status: Acute Per cardiology: -CT chest reviewed with 2cm nodule noted. Follows with oncology. -Management per primary service. -Discussed close follow up with oncology as outpatient with patient. (3) Atrial fibrillation Current Visit: Yes Status: Chronic Per cardiology: -Known PAF. -HR controlled. ON BB. -On coumadin for anticoagulation. -Continue current regimen. Qualifiers: Atrial fibrillation type: paroxysmal Qualified Code(s): I48.0 - Paroxysmal atrial fibrillation Discussion w patient/family: The assessment and plan as outlined above was discussed with the patient who expressed understanding and agreement. All questions were answered. Thank you for involving us in the care of your patient. Please call with any questions. Discussed and reviewed with . History of Present Illness Consult date: 05/08/18 Requesting physician: Octavio Bonds Consult reason: chest pain Chief complaint: chest pain History of present illness: Mr. Salmeron is a 78 year old male with a relevant past medical history of CAD s/ p CABG and PCI, atrial fibrillation, HTN, HLD, GERD, BPH, DVT, PVD s/p fem-pop bypass, AAA s/p stenting, previous head and neck cancer s/p chemo/radiation, now with stoma, CVA who presented to [facility] with complaints of chest pain. Patient states pain was non-exertional and different from previous. Reported also bilateral arm and leg weakness, states lasted several hours. Denies aggravating or alleviating factors. Denies current chest pain. Denies increased shortness of breath. Past Med Surg Social Fam HX - Past Medical History Attestation: Yes The following information was validated with the patient. Source: patient, old records reviewed Medical history: atrial fibrillation, cancer, coronary artery disease, CVA, diabetes, hypertension, myocardial infarction, peripheral artery disease, SVT, thyroid disease Additional medical history: nose cancer. trach Psychiatric history: no psych history - Past Surgical History Surgical History: angioplasty/stent, appendectomy, coronary bypass (CABG), herniorrhaphy, LE vascular intervention, tracheostomy Additional surgical history: BACK SURGERY, tracheostomy - Social History Smoking Status: Former smoker Smokeless Tobacco Status: No Alcohol use: none Drug use: none - Family History Mother Living Status: Hx Family Cardiac Disorders: No Hx Family Respiratory Disorders: No Hx Family Cancer: No Hx Family GI Disorders: No Hx Family Endocrine Disorder: No Hx Family Neuromuscular Disorders: No Hx Family Neurologic Disorders: No Hx Family HEENT Disorders: No Hx Family Autoimmune Disorders: No Father Living Status: Hx Family Cardiac Disorders: No Hx Family Respiratory Disorders: No Hx Family Cancer: No Hx Family GI Disorders: No Hx Family Endocrine Disorder: No Hx Family Neuromuscular Disorders: No Hx Family Neurologic Disorders: No Hx Family HEENT Disorders: No Hx Family Autoimmune Disorders: No Sister Living Status: Hx Family Cancer: Yes (lung cancer) Medications and Allergies Insulin Glargine,Hum.rec.anlog [Lantus Solostar] 22 unit SQ HS 12/09/15 [History ] Acetaminophen/Butalbital/Caffe [Fioricet] 1 tab PO DAILY PRN 05/14/17 [History] Gabapentin [Neurontin] 100 mg PO HS 05/14/17 [History] Aspirin Enteric Coated [Aspirin EC] 81 mg PO DAILY 08/17/17 [History] Atorvastatin Calcium [Lipitor] 80 mg PO HS 08/17/17 [History] Nitroglycerin 0.4 mg SL Q5MIN PRN #14 tab.subl 08/22/17 [Rx] BuPROPion XL (24 HR) [Wellbutrin Xl] 150 mg PO DAILY 12/16/17 [History] Cyclobenzaprine HCl 5 mg PO HS 12/16/17 [History] Ezetimibe [Zetia] 10 mg PO DAILY 12/16/17 [History] Sertraline [Zoloft] 100 mg PO DAILY 12/16/17 [History] Topiramate [Topamax] 50 mg PO HS 12/16/17 [History] amLODIPine [Norvasc] 5 mg PO DAILY 12/16/17 [History] OxyCODONE/APAP 10/325 [Percocet 10/325 MG] 1 each PO Q6HR PRN 14 Days #56 tablet 01/08/18 [Rx] Metoprolol [Lopressor] 25 mg PO BID 02/25/18 [History] Multivit-Min/FA/Lycopen/Lutein [Adults 50+ Multivitamin Tablet] 1 tab PO DAILY 02/25/18 [History] Trazodone HCl 50 mg PO HS 02/25/18 [History] Lisinopril [Zestril] 10 mg PO BID 03/28/18 [History] Metformin HCl [Glucophage] 1,000 mg PO DAILY 03/28/18 [History] Omeprazole [PriLOSEC] 20 mg PO DAILY 03/28/18 [History] Tamsulosin HCl [Flomax] 0.4 mg PO DAILY 03/28/18 [History] Levothyroxine [Synthroid] 150 mcg PO DAILY 30 Days #30 tablet 03/30/18 [Rx] Fludrocortisone Acetate [Florinef] 0.1 mg PO DAILY #5 tablet 04/18/18 [Rx] Warfarin [Coumadin] 5 mg PO MOWEFR 05/08/18 [History] Warfarin [Coumadin] 7.5 mg PO SUTUTHSA 05/08/18 [History] 3 Allergy/AdvReac Type Severity Reaction Status Date / Time No Known Allergies Allergy Verified 05/08/18 12:35 All Systems Review: The remainder of the systems were reviewed and are negative - Cardiovascular Cardiovascular: as per HPI, chest pain at rest Physical Examination Vital Signs, Last 4 Hours Temp Pulse Resp BP Pulse Ox 05/09/18 08:11 98.8 F 65 17 152/79 97 General: Conversant, No Apparent Distress HEENT: Atraumatic, Normocephaly, Mucus Membranes Moist Neck: No JVD, Normal carotid pulses Cardiac: Normal S1 and S2, No Murmur, Other (Irregularly irregular ) Lungs: Normal Breath Sounds, No Wheeze, Rales, Rhonchi, Other (Stoma noted. ) Neuro: Alert and responsive, No focal deficits noted Abdomen: Soft, Non-Tender Skin: No rashes noted on visualized skin Musculoskeletal: No Chest Wall Tenderness Extremities: No Clubbing, No Cyanosis, No Edema, Normal Pulses Results 05/09/18 00:31 05/09/18 00:31 Lab Results Impressions Chest X-Ray 05/08/18 12:36 IMPRESSION: No acute process within the chest. D/ / 05/08/2018 14:12:46 Vignesh Lawrence MD / bert Interpreting Provider: Vignesh Lawrence MD Head CT 05/08/18 12:59 IMPRESSION: Stable CT brain with no acute intracranial abnormality and chronic findings as described. D/ / Adal Chisholm MD / Adal Chisholm MD Interpreting Provider: Adal Chisholm MD Abdomen/Pelvis CTA 05/08/18 13:40 IMPRESSION: 1. Negative evaluation for aortic dissection. 2. A 34 mm infrarenal abdominal aortic aneurysm status post stenting. 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 3. In the chest, there is asymmetric interstitial change on the right side compared to the left, along with areas of small pleural fluid, pleural thickening and calcification. Ground-glass attenuating foci also present. Associated diffuse moderate airway thickening on the right side. Additionally, prominent lymph nodes are identified, most conspicuously measuring up to 2 cm in the right hilum. Constellation of findings is quite concerning for a developing neoplastic process; however, atypical inflammatory or infectious etiologies could present similarly. Findings appear new/progressed compared to prior of 10/16/2017. Please correlate with the patient's clinical history, and consider a follow-up CT of the chest in 3 months' time. Alternatively, PET-CT could be considered. 4. In the abdomen and pelvis, there is moderate urinary bladder wall thickening and prostatic hypertrophy. Urinary bladder wall thickening was present in October 2017. Motion mildly limits sensitivity. 5. No significant adenopathy in the abdomen or pelvis. 6. Please note that this evaluation is somewhat limited secondary to a lack of access to the patient's electronic medical record. D/ / 05/08/2018 15:34:13 Isaac bradfodr Interpreting Provider: Isaac Frazier Chest CTA 05/08/18 13:40 IMPRESSION: 1. Negative evaluation for aortic dissection. 2. A 34 mm infrarenal abdominal aortic aneurysm status post stenting. 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 3. In the chest, there is asymmetric interstitial change on the right side compared to the left, along with areas of small pleural fluid, pleural thickening and calcification. Ground-glass attenuating foci also present. Associated diffuse moderate airway thickening on the right side. Additionally, prominent lymph nodes are identified, most conspicuously measuring up to 2 cm in the right hilum. Constellation of findings is quite concerning for a developing neoplastic process; however, atypical inflammatory or infectious etiologies could present similarly. Findings appear new/progressed compared to prior of 10/16/2017. Please correlate with the patient's clinical history, and consider a follow-up CT of the chest in 3 months' time. Alternatively, PET-CT could be considered. 4. In the abdomen and pelvis, there is moderate urinary bladder wall thickening and prostatic hypertrophy. Urinary bladder wall thickening was present in October 2017. Motion mildly limits sensitivity. 5. No significant adenopathy in the abdomen or pelvis. 6. Please note that this evaluation is somewhat limited secondary to a lack of access to the patient's electronic medical record. D/ / 05/08/2018 15:34:13 Isaac bradford Interpreting Provider: Isaac Frazier Active Medications Acetaminophen (Tylenol) 650 mg PO Q6HR PRN PRN Reason: Mild Pain/Fever Stop: 11/07/18 18:20 Amlodipine Besylate (Norvasc) 5 mg PO DAILY [facility] PRN Reason: Protocol Stop: 11/08/18 09:01 Last Admin: 05/09/18 09:33 Dose: Not Given Aspirin (Aspirin Ec) 81 mg PO DAILY [facility] Stop: 11/08/18 09:01 Last Admin: 05/09/18 09:32 Dose: Not Given Atorvastatin Calcium (Lipitor) 80 mg PO [facility] Stop: 11/07/18 21:01 Last Admin: 05/08/18 21:57 Dose: 80 mg Dextrose/Water (Dextrose 50% (Syg)) 25 ml IVP AD PRN PRN Reason: Hypoglycemia Stop: 11/07/18 18:28 Fludrocortisone Acetate (Florinef) 0.1 mg PO DAILY [facility] Stop: 11/08/18 09:01 Last Admin: 05/09/18 09:32 Dose: Not Given Gabapentin (Neurontin) 100 mg PO [facility] Stop: 11/07/18 21:01 Last Admin: 05/08/18 21:57 Dose: 100 mg Glucagon (Glucagen) 1 mg IM ONCE PRN PRN Reason: Hypoglycemia Stop: 11/07/18 18:28 Glucose (Gluctose) 15 gm PO ONCE PRN PRN Reason: Hypoglycemia Stop: 11/07/18 18:28 Glucose (Gluctose) 30 gm PO ONCE PRN PRN Reason: Hypoglycemia Stop: 11/07/18 18:28 Dextrose (Dextrose 5%) 1,000 mls @ 100 mls/hr IVC .Q10H PRN PRN Reason: HYPOGLYCEMIA Stop: 11/07/18 18:28 Insulin Detemir (Levemir) 10 unit SQ [facility] Stop: 11/07/18 21:01 Last Admin: 05/08/18 21:58 Dose: 10 unit Insulin Human Lispro (Humalog) 0 units SQ [facility] PRN Reason: Protocol Stop: 11/07/18 21:01 Last Admin: 05/08/18 21:35 Dose: Not Given Insulin Human Lispro (Humalog) 0 units SQ TIDAC [facility] PRN Reason: Protocol Stop: 11/08/18 07:31 Last Admin: 05/09/18 09:35 Dose: Not Given Levothyroxine Sodium (Synthroid) 150 mcg PO DAILY [facility] Stop: 11/08/18 09:01 Last Admin: 05/09/18 09:33 Dose: Not Given Lisinopril (Zestril) 10 mg PO BID [facility] PRN Reason: Protocol Stop: 11/07/18 21:01 Last Admin: 05/09/18 09:32 Dose: Not Given Metoprolol Tartrate (Lopressor) 25 mg PO BID [facility] Stop: 11/07/18 21:01 Last Admin: 05/09/18 09:32 Dose: Not Given Multivitamins/Calcium (Thera M Plus) 1 tab PO DAILY [facility] Stop: 11/08/18 09:01 Last Admin: 05/09/18 09:33 Dose: Not Given Naloxone HCl (Narcan) 0.4 mg IVP Q2MIN PRN PRN Reason: SEE COMMENTS Stop: 11/07/18 18:20 Nitroglycerin (Nitroglycerin) 0.4 mg SL Q5MIN PRN PRN Reason: Chest Pain Stop: 11/07/18 13:41 Last Admin: 05/08/18 14:21 Dose: 0.4 mg Nitroglycerin (Nitroglycerin) 0.4 mg SL Q5MIN PRN PRN Reason: Chest Pain Stop: 11/07/18 18:25 (Ezetimibe [Zetia] (10 Mg)) 10 mg PO DAILY [facility] Stop: 11/08/18 09:01 Last Admin: 05/09/18 09:33 Dose: Not Given Omeprazole (Prilosec) 20 mg PO DAILY [facility] PRN Reason: Protocol Stop: 11/08/18 09:01 Last Admin: 05/09/18 09:31 Dose: Not Given Oxycodone HCl (Roxicodone) 10 mg PO Q6HR PRN PRN Reason: Chest Pain Stop: 11/07/18 18:20 Last Admin: 05/09/18 04:04 Dose: 10 mg Tamsulosin HCl (Flomax) 0.4 mg PO DAILY [facility] PRN Reason: Protocol Stop: 11/08/18 09:01 Last Admin: 05/09/18 09:32 Dose: Not Given Topiramate (Topamax) 50 mg PO HS [facility] Stop: 11/07/18 21:01 Last Admin: 05/08/18 21:57 Dose: 50 mg Tramadol HCl (Ultram) 50 mg PO Q6HR PRN PRN Reason: Moderate Pain Stop: 11/07/18 18:20 Trazodone HCl (Trazodone) 50 mg PO HS [facility] Stop: 11/07/18 21:01 Last Admin: 05/08/18 21:57 Dose: 50 mg Warfarin Sodium (Coumadin Perpt) 1 each PO DAILY@1800 PRN PRN Reason: SEE COMMENTS Stop: 11/08/18 18:01 Warfarin Sodium (Coumadin) 5 mg PO ONCE@1800 ONE Stop: 05/09/18 18:01 Laboratory Tests 05/08/18 05/08/18 05/09/18 12:36 20:25 00:31 Hgb INR Creatinine Troponin I < 0.03 < 0.03 < 0.03 05/09/18 05/09/18 05/09/18 00:31 00:31 00:31 Hgb 9.5 L INR 2.1 Creatinine 0.93 Troponin I 05/09/18 07:31 Hgb INR Creatinine Troponin I < 0.03 - Imaging and Cardiology Chest Xray: report reviewed Echo: pending, report reviewed Cardiac cath: report reviewed - EKG Interpretation EKG results cardiology: personally reviewed (ECG with SR, HR 77, PAC noted.), other (Telemetry reviewed with average HR previous 12 hours noted to be 64, a.fib.) Consult Discharge Plan - Plan Referrals: Peter Carlson MD [Primary Care Provider] - Roque Lundberg MD [Partnered Physician] - 05/16/18 10:15 am
[2018-05-09] MEDS ORDERED: Acetaminophen/Butalbital/CaffeineTABLET PO PRN (12:16)
--- NOTE | 2018-05-09 17:41 | Internal Med Progress Note ---
Date of Encounter: 05/09/18 Time of Encounter: 17:38 - Assessment and plan (1) Chest pain Current Visit: Yes Status: Acute Assessment and plan: Per cardiology: -Admitted with chest pain. Non-exertional. -Denies current chest pain. -troponins negative x4. -No acute ischemic ECG changes. -08/2017 [facility] with 90% mid LAD, 50% mid circumflex, 60% proximal OM, 70-80% distal circumflex with MINDA placed, 100% mid RCA, LOMAX to LAD patent with 30-40% proximal LOMAX stenosis, SVG to OM1 is occluded, SVG to PDA is occluded. -03/2018 TTE with LVEF 55-60%, mild concentric LVH, RV dilated with normal function, no segmental wall motion abnormalities noted. -Will check Limited TTE. If LVEF remains preserved, suspect outpatient follow up. -Of note, had been off of imdur in outpateint setting due to hypotension, can consider addition of imdur. Currently BPs 150s systolic. Qualifiers: Chest pain type: chest pain due to myocardial ischemia Ischemic chest pain type: stable angina pectoris Qualified Code(s): I20.8 - Other forms of angina pectoris (2) Atrial fibrillation Current Visit: Yes Status: Chronic Assessment and plan: 1. Currently in NSR. 2. Continue home medications as appropriate. 3. Daily PT/INR and Coumadin dosing per pharmacy. Qualifiers: Atrial fibrillation type: paroxysmal Qualified Code(s): I48.0 - Paroxysmal atrial fibrillation (3) Abnormal CT scan, chest Current Visit: Yes Status: Acute Assessment and plan: 1. I discussed the findings with patient as there is a concern for possible neoplastic process along right hilum vs reactive lymph node from recent respiratory infection. 2. oncology consult. (4) DVT prophylaxis Current Visit: Yes Status: Acute Assessment and plan: 1. Currently therapeutic on Coumadin -- dosing per pharmacy. - Time Spent With Patient Total time spent is greater than 50% in coordination of care (as documented) at patient's floor/unit and/or counseling patient: Greater than 35 minutes - Subjective Interval history: Pt currently is pain free. - Constitutional Vitals: Temp Pulse Resp BP Pulse Ox 99.4 F 68 16 167/69 94 05/09/18 16:23 05/09/18 16:23 05/09/18 16:23 05/09/18 16:23 05/09/18 16:23 General appearance: Present: cooperative, A&O X 3, pleasant, no acute distress, answers questions appropriately Exam: PHYSICAL EXAMINATION: GENERAL APPEARANCE: The patient is alert, oriented and in no acute distress. HEENT: Head is normocephalic. The sinuses are nontender. Pupils are equal and reactive. The nares are patent. Oropharynx clear without lesions. NECK: Supple without lymphadenopathy. HEART: Regular rate and rhythm. LUNGS: No crackles or wheezes are heard. ABDOMEN: Soft, nontender, nondistended with good bowel sounds heard. Inguinal area is normal. EXTREMITIES: Without cyanosis, clubbing or edema. NEUROLOGICAL: Gross nonfocal. SKIN: Warm and dry without any rash. Internal Medicine: Result - Labs CBC & Chem 7: 05/09/18 00:31 05/09/18 00:31 Labs: Short CBC 05/09/18 Range/Units 00:31 WBC 5.4 (4.3-11.1) K/mcL Hgb 9.5 L (12.9-16.9) g/dL Hct 30.9 L (37.5-50.1) % Plt Count 277 (140-400) K/mcL Neutrophils # 3.1 (1.6-8.9) K/mcL BMP 05/09/18 00:31 Sodium 136 Potassium 4.5 Chloride 102 Carbon Dioxide 31 H BUN 23 Creatinine 0.93 Glucose 211 H Calcium 9.0 Cardiac Enzymes 05/08/18 05/09/18 05/09/18 Range/Units 20:25 00:31 07:31 Troponin I < 0.03 < 0.03 < 0.03 (< 0.04) ng/mL Liver Function 05/09/18 Range/Units 00:31 Total Bilirubin 0.3 (0.3-1.0) mg/dL AST 20 (13-39) Units/L ALT 19 (7-52) Units/L Alkaline Phosphatase 79 (34-104) Units/L Albumin 3.0 L (3.5-5.7) g/dL - ABG Interpretation ABG results: PT/INR, D-dimer PT 23.9 Seconds (9.4-12.1) H 05/09/18 00:31 - Impressions Impressions Echocardiogram 05/09/18 18:19 Impressions: LVEF 60%. Mild concentric left ventricular hypertrophy. Mild left ventricular diastolic dysfunction. RV basal dimensions appear normal. Mid and apical glass are not well visualized. Function is low normal by Doppler. Severely dilated left atrium. Mild mitral regurgitation. Mild-moderate tricuspid regurgitation. Mild pulmonary hypertension. Left Ventricular Wall Motion: Rest Echo Findings All wall segments showed normal motion. Findings: Study Quality * Technically adequate exam. ECG Findings * Normal sinus rhythm, possible PACs. Left Ventricle * LVEF 60%. * Mild concentric left ventricular hypertrophy. * Mild left ventricular diastolic dysfunction. Right Ventricle * RV basal dimensions appear normal. Mid and apical glass are not well visualized. Function is low normal by Doppler. Left Atrium * Severely dilated left atrium. Right Atrium * Normal right atrial size. Mitral Valve * No mitral stenosis. * Mild-moderate mitral annular calcification * Mildly calcified mitral valve leaflets. * Mild mitral regurgitation. Aortic Valve * Trace aortic regurgitation. * Trileaflet aortic valve. * No aortic stenosis. Tricuspid Valve * Tricuspid valve not well visualized. * Mild-moderate tricuspid regurgitation. * Estimated RA pressure is 8 mmHg. * Estimated RVSP is 46 mmHg. * Mild pulmonary hypertension. Pulmonic Valve * Pulmonic valve is not well visualized. * No pulmonic stenosis. * Trace pulmonic regurgitation. Pulmonary Artery * Pulmonary artery not well visualized. Aorta * Normally sized aortic root. Pericardium * There is no pericardial effusion present. Interatrial Septum * No evidence of PFO by color Doppler. IVC * The IVC is not dilated. * < 50% respiratory change. Consult Discharge Plan - Plan Referrals: Peter Carlson MD [Primary Care Provider] - Roque Lundberg MD [Partnered Physician] - 05/16/18 10:15 am
[2018-05-09] MEDS ORDERED: *HR* Warfarin 5 MG TABLET PO ONE (18:00)
[2018-05-09] MEDS ORDERED: Warfarin perPT PO PRN (18:00)
[2018-05-09] MEDS: traZODone 50 MG TABLET PO SCH (21:24)
[2018-05-09] MEDS: Insulin DETEMIR 100 UNIT/ML X5UNITS SQ SCH (21:24)
[2018-05-09] MEDS: Gabapentin 100 MG CAPSULE PO SCH (21:24)
[2018-05-09] MEDS: Topiramate 25 MG TABLET PO SCH (21:24)
[2018-05-10 07:01] LABS: INR 1.6; Prothrombin Time 17.5 Seconds (9.4-12.1)
[2018-05-10] MEDS ORDERED: BuPROPion XL (24 HR) 150 MG TABLET PO SCH (09:00)
[2018-05-10] MEDS: Insulin LISPRO 300 UNITS/3 ML VIAL SQ SCH ×2 (09:05→13:45)
[2018-05-10] MEDS: Multivit/Ca/Min/Fe/FA 1 TAB TABLET PO SCH (10:23)
[2018-05-10] MEDS: Aspirin Enteric Coated 81 MG Tablet PO SCH (10:23)
[2018-05-10] MEDS: amLODIPine 5 MG TABLET PO SCH (10:24)
[2018-05-10] MEDS: (Ezetimibe [Zetia] 10 MG) PO SCH (10:26)
--- NOTE | 2018-05-10 10:54 | Oncology Inp Consult Note ---
Date of Encounter: 05/10/18 Time of Encounter: 09:00 Assessment and Plan (1) Lung nodule Status: Acute Assessment and plan: Mr. Salmeron underwent CT angiogram of the chest when evaluated for chest pressure that demonstrated a 30 x 28 x 22 mm area of groundglass opacification in the right upper lobe. There was also noted in the mediastinum 20 mm right hilar lymph node and a 11 mm aortopulmonary window lymph node with associated right paratracheal lymph node measuring up to 9 mm. - With his history of nasopharyngeal cancer and 2007 there was concern that this may be recurrence or metastatic disease. In review of his recent medical history with pseudomonal sinusitis and recent treatment of osteonecrosis of the occipital region is also high risk that this may be inflammatory process with lymphadenopathy. - This is initial findings, no specific primary source. Cannot specifically say whether this is cancerous versus infectious response, without further investigation or repeat imaging. Plan: - Data of Consult Consult date: 05/10/18 Requesting Physician: Sumanth Munguia MD Primary Care Provider: Peter Carlson MD - Consult Narrative Reason for consult: lung nodule History of present illness: Mr. 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 However patient does have lifelong tracheostomy. He received multimodality treatment with concurrent chemo radiation with cisplatin and cetuximab and adjuvant chemotherapy cisplatin and 5-FU for treatment of his nasopharyngeal cancer and had since been off therapy. 2016 patient reported having pain behind the right ear and more frequent headaches. He had a CAT scan of soft tissue neck on 2016 that indicated no acute abnormality in the neck soft tissue, stable posttreatment changes in the nasopharynx, without recurrent mass, lymphedema, or metastatic disease within the soft tissue of the neck. There were 14 2018 patient was hospitalized and underwent CT angiograms seem to be benign, but enlarged right cervical lymph nodes were noted. PET scan on 01/03/18. This showed mild FDG uptake in nasopharyngeal region, same location as previous disease. This is suspicious for recurrence. He saw Dr Rodríguez again on . At that time he had nasal endoscopy. No obvious malignancies, but, possible recurrence based on PET, and, possible ORN or skull base osteomyelitis. Placed on omnicef 300mg daily for 3 weeks. Patient was admitted to [facility] on 01/14/2018 discharged 01/20/2018. He was treated for nasopharyngeal mass. Biopsy showed inflammation and pseudomonas infection, no malignancy. He placed on 6 weeks of antibiotics as outpatient. Other cancer screenings involved EGD 06/02/2017 performed demonstrating grade B esophagitis, gastritis and Beach's esophagus, colonoscopy performed 2014 demonstrating internal hemorrhoids, diverticulosis, and a 10 mm rectal tubular adenoma. He was admitted 05/08/2018 after presenting to the emergency department with substernal chest pressure radiating to bilateral arms and having bilateral upper extremity weakness. He was seen by cardiology with recommendations for echocardiogram. Patient underwent left heart catheterization and revascularization performed less than 12 months ago. He underwent CT angiogram of the chest that demonstrated a 30 x 28 x 22 mm area of groundglass opacification in the right upper lobe. There was also noted in the mediastinum 20 mm right hilar lymph node and a 11 mm aortopulmonary window lymph node with associated right paratracheal lymph node measuring up to 9 mm. With his history of nasopharyngeal cancer there is concern if this could be recurrence or metastatic disease and oncology was involved in care. Review of vitals demonstrate stable vital since admission, laboratory results without any significant findings, stable microcytic anemia. He denies any fevers, chills, diaphoresis, change in vision, hematemesis, hemoptysis or epistasis. He denies any abdominal pains, change in bowel habits or stool color. No noticeable blood or melena. He denies any other concerning symptoms or signs. Past Med Surg Social Fam HX - Past Medical History Medical history: atrial fibrillation, cancer, coronary artery disease, CVA, diabetes, hypertension, myocardial infarction, peripheral artery disease, SVT, thyroid disease Additional medical history: nose cancer. trach Psychiatric history: no psych history - Past Surgical History Surgical History: angioplasty/stent, appendectomy, coronary bypass (CABG), herniorrhaphy, LE vascular intervention, tracheostomy Additional surgical history: BACK SURGERY, tracheostomy - Social History Smoking Status: Former smoker Smokeless Tobacco Status: No Alcohol use: none Drug use: none - Family History Mother Living Status: Hx Family Cardiac Disorders: No Hx Family Respiratory Disorders: No Hx Family Cancer: No Hx Family GI Disorders: No Hx Family Endocrine Disorder: No Hx Family Neuromuscular Disorders: No Hx Family Neurologic Disorders: No Hx Family HEENT Disorders: No Hx Family Autoimmune Disorders: No Father Living Status: Hx Family Cardiac Disorders: No Hx Family Respiratory Disorders: No Hx Family Cancer: No Hx Family GI Disorders: No Hx Family Endocrine Disorder: No Hx Family Neuromuscular Disorders: No Hx Family Neurologic Disorders: No Hx Family HEENT Disorders: No Hx Family Autoimmune Disorders: No Sister Living Status: Hx Family Cancer: Yes (lung cancer) Medications and Allergies Insulin Glargine,Hum.rec.anlog [Lantus Solostar] 22 unit SQ HS 12/09/15 [History ] Acetaminophen/Butalbital/Caffe [Fioricet] 1 tab PO DAILY PRN 05/14/17 [History] Gabapentin [Neurontin] 100 mg PO HS 05/14/17 [History] Aspirin Enteric Coated [Aspirin EC] 81 mg PO DAILY 08/17/17 [History] Atorvastatin Calcium [Lipitor] 80 mg PO HS 08/17/17 [History] Nitroglycerin 0.4 mg SL Q5MIN PRN #14 tab.subl 08/22/17 [Rx] BuPROPion XL (24 HR) [Wellbutrin Xl] 150 mg PO DAILY 12/16/17 [History] Cyclobenzaprine HCl 5 mg PO HS 12/16/17 [History] Ezetimibe [Zetia] 10 mg PO DAILY 12/16/17 [History] Sertraline [Zoloft] 100 mg PO DAILY 12/16/17 [History] Topiramate [Topamax] 50 mg PO HS 12/16/17 [History] amLODIPine [Norvasc] 5 mg PO DAILY 12/16/17 [History] OxyCODONE/APAP 10/325 [Percocet 10/325 MG] 1 each PO Q6HR PRN 14 Days #56 tablet 01/08/18 [Rx] Metoprolol [Lopressor] 25 mg PO BID 02/25/18 [History] Multivit-Min/FA/Lycopen/Lutein [Adults 50+ Multivitamin Tablet] 1 tab PO DAILY 02/25/18 [History] Trazodone HCl 50 mg PO HS 02/25/18 [History] Lisinopril [Zestril] 10 mg PO BID 03/28/18 [History] Metformin HCl [Glucophage] 1,000 mg PO DAILY 03/28/18 [History] Omeprazole [PriLOSEC] 20 mg PO DAILY 03/28/18 [History] Tamsulosin HCl [Flomax] 0.4 mg PO DAILY 03/28/18 [History] Levothyroxine [Synthroid] 150 mcg PO DAILY 30 Days #30 tablet 03/30/18 [Rx] Fludrocortisone Acetate [Florinef] 0.1 mg PO DAILY #5 tablet 04/18/18 [Rx] Warfarin [Coumadin] 5 mg PO MOWEFR 05/08/18 [History] Warfarin [Coumadin] 7.5 mg PO SUTUTHSA 05/08/18 [History] 3 Allergy/AdvReac Type Severity Reaction Status Date / Time No Known Allergies Allergy Verified 05/08/18 12:35 Constitutional: Present: weakness. Absent: anorexia, chills, daytime sleepiness , excessive sweating, fatigue, fever(s), frequent falls, headache(s), increased appetite, malaise, weight loss Eyes: Absent: blurry vision, loss of vision, photophobia Ears: Absent: ear pain Nose, mouth and throat: Absent: bleeding gums, dizziness, dysphagia, epistaxis, facial pain, headache(s), nasal trauma, nose pain Cardiovascular: Present: chest pain, chest pain at rest. Absent: claudication, diaphoresis, dyspnea, edema, irregular heart rhythm, rapid heart rate Respiratory: Absent: cough, dyspnea, hemoptysis, chest congestion Gastrointestinal: Absent: abdominal pain, change in bowel habits, constipation, cramping, diarrhea, dyspepsia, dysphagia, early satiety, melena, vomiting Musculoskeletal: Present: muscle weakness (Upper extremities). Absent: back pain, deformity, muscle cramps, neck pain Integumentary: Absent: erythema, lesions, jaundice Neurological: Absent: disequilibrium, dizziness, focal weakness, frequent falls , headache(s), lack of coordination, loss of vision Oncology - Exam - Constitutional Vitals: Temp Pulse Resp BP Pulse Ox 98.1 F 105 17 130/83 98 05/10/18 08:02 05/10/18 08:02 05/10/18 08:02 05/10/18 08:02 05/10/18 08:02 Exam: General: Patient alert, awake, oriented 3, interactive, in no acute distress HEENT: Normocephalic, atraumatic, pupils equal reactive to light, oral mucosa moist, uvula midline, neck supple trachea midline, tracheostomy in place without signs of erythema or drainage. Tense SCM bilaterally. no palpable lymphadenopathy, no thyromegaly. Chest: Symmetric bilateral correlating with respiratory effort, effort nonlabored. Cardiac: Regular rate and rhythm, grade 2/6 systolic ejection murmur, Radial pulses 2+ bilateral, posterior tibial and dorsal pedal pulses 2+ bilateral. Respiratory: Clear to auscultation all lung layton Abdomen: Soft, nontender, positive bowel sounds, no palpable masses appreciated on examination Extremities: Symmetric bilateral, bilateral lower extremities without erythema or edema patient moving all 4 extremities spontaneously. Neurologic: No focal deficits appreciated on examination. Face symmetric, muscle strength symmetric bilateral upper and lower extremities. Oncology - Results Labs: 3 05/10/18 05/09/18 05/09/18 05:34 20:46 17:38 WBC RBC Hgb Hct MCV MCH MCHC RDW Plt Count MPV Immature Gran % Seg Neutrophils % Lymphocytes % Monocytes % Eosinophils % Basophils % Neutrophils # Lymphocytes # Monocytes # Eosinophils # Basophils # PT 17.5 H INR 1.6 Sodium Potassium Chloride Carbon Dioxide BUN Creatinine Est GFR ( Amer) Est GFR (Non-Af Amer) BUN/Creatinine Ratio Glucose POC Glucose 154 H 152 H Est Mean Plasma Glucose Hemoglobin A1c Calculated Osmolality Calcium Magnesium Total Bilirubin AST ALT Alkaline Phosphatase Troponin I Serum Total Protein Albumin Globulin Albumin/Globulin Ratio Triglycerides Cholesterol LDL Cholesterol, Calc VLDL Cholesterol, Calc HDL Cholesterol Cholesterol/HDL Ratio 3 05/09/18 05/09/18 05/09/18 12:02 08:16 07:31 WBC RBC Hgb Hct MCV MCH MCHC RDW Plt Count MPV Immature Gran % Seg Neutrophils % Lymphocytes % Monocytes % Eosinophils % Basophils % Neutrophils # Lymphocytes # Monocytes # Eosinophils # Basophils # PT INR Sodium Potassium Chloride Carbon Dioxide BUN Creatinine Est GFR ( Amer) Est GFR (Non-Af Amer) BUN/Creatinine Ratio Glucose POC Glucose 128 H 96 Est Mean Plasma Glucose Hemoglobin A1c Calculated Osmolality Calcium Magnesium Total Bilirubin AST ALT Alkaline Phosphatase Troponin I < 0.03 Serum Total Protein Albumin Globulin Albumin/Globulin Ratio Triglycerides Cholesterol LDL Cholesterol, Calc VLDL Cholesterol, Calc HDL Cholesterol Cholesterol/HDL Ratio 3 05/09/18 05/09/18 05/09/18 00:31 00:31 00:31 WBC 5.4 RBC 3.73 L Hgb 9.5 L Hct 30.9 L MCV 82.8 L MCH 25.5 L MCHC 30.7 L RDW 15.9 H Plt Count 277 MPV 9.5 Immature Gran % 0.6 Seg Neutrophils % 58.3 Lymphocytes % 21.3 Monocytes % 11.8 Eosinophils % 7.6 Basophils % 0.4 Neutrophils # 3.1 Lymphocytes # 1.1 Monocytes # 0.6 Eosinophils # 0.4 Basophils # 0.0 PT 23.9 H INR 2.1 Sodium 136 Potassium 4.5 Chloride 102 Carbon Dioxide 31 H BUN 23 Creatinine 0.93 Est GFR ( Amer) > 60 Est GFR (Non-Af Amer) > 60 BUN/Creatinine Ratio 25 Glucose 211 H POC Glucose Est Mean Plasma Glucose Hemoglobin A1c Calculated Osmolality 292 Calcium 9.0 Magnesium 1.8 Total Bilirubin 0.3 AST 20 ALT 19 Alkaline Phosphatase 79 Troponin I Serum Total Protein 6.0 L Albumin 3.0 L Globulin 3.0 Albumin/Globulin Ratio 1.0 L Triglycerides 128 Cholesterol 109 LDL Cholesterol, Calc 57 VLDL Cholesterol, Calc 26 HDL Cholesterol 26 L Cholesterol/HDL Ratio 4.2 3 05/09/18 05/08/18 05/08/18 00:31 20:25 20:25 WBC RBC Hgb Hct MCV MCH MCHC RDW Plt Count MPV Immature Gran % Seg Neutrophils % Lymphocytes % Monocytes % Eosinophils % Basophils % Neutrophils # Lymphocytes # Monocytes # Eosinophils # Basophils # PT INR Sodium Potassium Chloride Carbon Dioxide BUN Creatinine Est GFR ( Amer) Est GFR (Non-Af Amer) BUN/Creatinine Ratio Glucose POC Glucose Est Mean Plasma Glucose 183 Hemoglobin A1c 8.0 H Calculated Osmolality Calcium Magnesium Total Bilirubin AST ALT Alkaline Phosphatase Troponin I < 0.03 < 0.03 Serum Total Protein Albumin Globulin Albumin/Globulin Ratio Triglycerides Cholesterol LDL Cholesterol, Calc VLDL Cholesterol, Calc HDL Cholesterol Cholesterol/HDL Ratio 3 05/08/18 20:06 WBC RBC Hgb Hct MCV MCH MCHC RDW Plt Count MPV Immature Gran % Seg Neutrophils % Lymphocytes % Monocytes % Eosinophils % Basophils % Neutrophils # Lymphocytes # Monocytes # Eosinophils # Basophils # PT INR Sodium Potassium Chloride Carbon Dioxide BUN Creatinine Est GFR ( Amer) Est GFR (Non-Af Amer) BUN/Creatinine Ratio Glucose POC Glucose 183 H Est Mean Plasma Glucose Hemoglobin A1c Calculated Osmolality Calcium Magnesium Total Bilirubin AST ALT Alkaline Phosphatase Troponin I Serum Total Protein Albumin Globulin Albumin/Globulin Ratio Triglycerides Cholesterol LDL Cholesterol, Calc VLDL Cholesterol, Calc HDL Cholesterol Cholesterol/HDL Ratio Consult Discharge Plan - Plan Referrals: Peter Carlson MD [Primary Care Provider] - Roque Lundberg MD [Partnered Physician] - 05/16/18 10:15 am
[2018-05-10 12:08] VITALS: BP 109/68
--- NOTE | 2018-05-10 13:27 | Discharge Summary ---
- NOTES TO OUTPATIENT PROVIDER Notes to Outpatient Provider: f/u with oncology within [address] scan. f/u with PCP within a week. Orders not resulted at time of discharge: Pending orders 05/09/18 06:00 ECG 12 lead ECG [ECG] AM 0600 05/11/18 04:00 INR/PT [Prothrombin Time INR] [COAG] DAILY 05/12/18 04:00 INR/PT [Prothrombin Time INR] [COAG] DAILY 05/13/18 04:00 INR/PT [Prothrombin Time INR] [COAG] DAILY 05/14/18 04:00 INR/PT [Prothrombin Time INR] [COAG] DAILY 05/15/18 04:00 INR/PT [Prothrombin Time INR] [COAG] DAILY Date of Encounter: 05/10/18 Time of Encounter: 13:24 - Discharge Diagnosis (1) Chest pain Priority: Primary Status: Acute Assessment and Plan: Per cardiology: -Admitted with chest pain. Non-exertional. -Denies current chest pain. -troponins negative x4. -No acute ischemic ECG changes. -08/2017 [facility] with 90% mid LAD, 50% mid circumflex, 60% proximal OM, 70-80% distal circumflex with MINDA placed, 100% mid RCA, LOMAX to LAD patent with 30-40% proximal LOMAX stenosis, SVG to OM1 is occluded, SVG to PDA is occluded. -03/2018 TTE with LVEF 55-60%, mild concentric LVH, RV dilated with normal function, no segmental wall motion abnormalities noted. -Will check Limited TTE. If LVEF remains preserved, suspect outpatient follow up . Qualifiers: Chest pain type: chest pain due to myocardial ischemia Ischemic chest pain type: stable angina pectoris Qualified Code(s): I20.8 - Other forms of angina pectoris (2) Atrial fibrillation Priority: Secondary Status: Chronic Qualifiers: Atrial fibrillation type: paroxysmal Qualified Code(s): I48.0 - Paroxysmal atrial fibrillation (3) Abnormal CT scan, chest Priority: Primary Status: Acute Assessment and Plan: 1. I discussed the findings with patient as there is a concern for possible neoplastic process along right hilum vs reactive lymph node from recent respiratory infection. 2. f/u with oncology for further workup if indicated. (4) DVT prophylaxis Priority: Primary Status: Acute Hospital course: Mr. Salmeron is a 78 year old male with PMH of CAD with stents, CABG presented with chest pain. His chest pain was non-exertional. Further workup including troponin, EKG and echocardiogram were unremarkable. Cardiology was consulted and recommended outpatient follow up. A CT chest with IV contrast was performed as a routine workup which revealed enlarged eileen-hilar lymph node, suspicious for malignancy. He does has a remote history of laryngeal cancer. He was instructed to f/u with oncology as outpatient. He will be discharged today. We will make an appointment with his PCP for him within a week. Discharge discussed with: patient Time spent discussing smoking cessation with patient: more than 10 minutes - Time Spent with Patient Total time spent providing and/or coordinating discharge services: Greater than 30 minutes - Discharge Medications Home Medications: Insulin Glargine,Hum.rec.anlog [Lantus Solostar] 22 unit SQ HS 12/09/15 [History ] Acetaminophen/Butalbital/Caffe [Fioricet] 1 tab PO DAILY PRN 05/14/17 [History] Gabapentin [Neurontin] 100 mg PO HS 05/14/17 [History] Aspirin Enteric Coated [Aspirin EC] 81 mg PO DAILY 08/17/17 [History] Atorvastatin Calcium [Lipitor] 80 mg PO HS 08/17/17 [History] Nitroglycerin 0.4 mg SL Q5MIN PRN #14 tab.subl 08/22/17 [Rx] BuPROPion XL (24 HR) [Wellbutrin Xl] 150 mg PO DAILY 12/16/17 [History] Cyclobenzaprine HCl 5 mg PO HS 12/16/17 [History] Ezetimibe [Zetia] 10 mg PO DAILY 12/16/17 [History] Sertraline [Zoloft] 100 mg PO DAILY 12/16/17 [History] Topiramate [Topamax] 50 mg PO HS 12/16/17 [History] amLODIPine [Norvasc] 5 mg PO DAILY 12/16/17 [History] OxyCODONE/APAP 10/325 [Percocet 10/325 MG] 1 each PO Q6HR PRN 14 Days #56 tablet 01/08/18 [Rx] Metoprolol [Lopressor] 25 mg PO BID 02/25/18 [History] Multivit-Min/FA/Lycopen/Lutein [Adults 50+ Multivitamin Tablet] 1 tab PO DAILY 02/25/18 [History] Trazodone HCl 50 mg PO HS 02/25/18 [History] Lisinopril [Zestril] 10 mg PO BID 03/28/18 [History] Metformin HCl [Glucophage] 1,000 mg PO DAILY 03/28/18 [History] Omeprazole [PriLOSEC] 20 mg PO DAILY 03/28/18 [History] Tamsulosin HCl [Flomax] 0.4 mg PO DAILY 03/28/18 [History] Levothyroxine [Synthroid] 150 mcg PO DAILY 30 Days #30 tablet 03/30/18 [Rx] Fludrocortisone Acetate [Florinef] 0.1 mg PO DAILY #5 tablet 04/18/18 [Rx] Warfarin [Coumadin] 5 mg PO MOWEFR 05/08/18 [History] Warfarin [Coumadin] 7.5 mg PO SUTUTHSA 05/08/18 [History] Allergies/Adverse Reactions: 3 Allergy/AdvReac Type Severity Reaction Status Date / Time No Known Allergies Allergy Verified 05/08/18 12:35 Date of admission: 05/08/18 16:54 Primary care physician: Peter Carlson MD Consults: 05/08/18 18:21 Consult to Physician [CONS] Routine Consulting Provider: Shane Bowles Reason for Consult: chest pain; known CAD; [facility] 09/01 with documented obstructions Call Completed: No 05/09/18 15:22 Consult to Oncology Hematology [CONS] Routine Consulting Provider: Oncology [facility] Reason for Consult: enlarged hilar lymph note Call Completed: Yes Anticipated date of discharge: 05/10/18 - Constitutional Vitals: Temp Pulse Resp BP Pulse Ox 99.1 F 65 17 109/68 95 05/10/18 12:03 05/10/18 12:03 05/10/18 12:03 05/10/18 12:03 05/10/18 12:03 General appearance: Present: cooperative, A&O X 3, pleasant, no acute distress, answers questions appropriately Exam: PHYSICAL EXAMINATION: GENERAL APPEARANCE: The patient is alert, oriented and in no acute distress. HEENT: Head is normocephalic. The sinuses are nontender. Pupils are equal and reactive. The nares are patent. Oropharynx clear without lesions. NECK: Supple without lymphadenopathy. HEART: Regular rate and rhythm. LUNGS: No crackles or wheezes are heard. ABDOMEN: Soft, nontender, nondistended with good bowel sounds heard. Inguinal area is normal. EXTREMITIES: Without cyanosis, clubbing or edema. NEUROLOGICAL: Gross nonfocal. SKIN: Warm and dry without any rash. - Patient Status Disposition: Home, Self-Care Condition: Undetermined Functional capacity at discharge: independent ambulation Overall status at discharge: patient is back to baseline - Discharge Instructions Follow Up With: Peter Carlson MD [Primary Care Provider] - Roque Lundberg MD [Partnered Physician] - 05/16/18 10:15 am - Diet and Activity Activity: increase activity as tolerated Diet: low fat, low cholesterol, low salt diet
[2018-05-10] MEDS ORDERED: *HR* Warfarin 7.5 MG TABLET PO ONE (18:00)
== END 2018-05-10 15:15 | disposition home or self-care (01) ==
LOC: 3BNU 12:32 → EMEROO 12:32 → 3BNU 18:52
PROVIDERS: ADMIT Pediatrics; ATTEND Internal Medicine

== ENCOUNTER 2018-05-11 14:26 | Inpatient (IN) ==
[2018-05-11] MEDS ORDERED: 0.9 % Sodium Chloride 1,000 ML IVC ONE ×2 (14:40→17:14)
--- NOTE | 2018-05-11 15:01 | Emergency Department Note ---
Disposition Clinical Impression: JAKE (acute kidney injury) Episode of syncope Qualifiers: Syncope type: unspecified Qualified Code(s): R55 - Syncope and collapse Hypotension Qualifiers: Hypotension type: unspecified hypotension type Qualified Code(s): I95.9 - Hypotension, unspecified Disposition: Admitted As Inpatient Condition: Good Referrals: Peter Carlson MD [Primary Care Provider] - General Adult HPI - General Chief complaint: ED Syncope Stated complaint: Syncope Time Seen by Provider: 05/11/18 14:35 Source: EMS Mode of arrival: EMS Limitations: no limitations Nursing Notes Reviewed: Yes Vital Signs Reviewed: Yes - History of Present Illness HPI Narrative: 78-year-old male history of CAD with stents, A. fib on Coumadin, hypertension, hyperlipidemia presents via EMS due to syncopal episode. History is obtained from family as well. They state that he got up today was walking around the house and then collapsed. They put him in a chair and at that time his eyes were back in his head and he had shallow breathing. No seizure-like activity. States this lasted for 2-3 minutes. He woke up with him screaming at him. No prior history of syncope. He denies any prodromal symptoms. States he has been eating well since leaving the hospital and did not eat this morning. At the time of evaluation he reports headache. 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 Radiation: non-radiation Pain Scale: 5 Consistency: constant Improves with: nothing Worsens with: nothing Associated symptoms: Reports: headaches Treatments Prior to Arrival: none - Related Data Home Medications Medication Instructions Recorded Confirmed Insulin Glargine,Hum.rec.anlog 22 unit SQ HS 12/09/15 05/11/18 [Lantus Solostar] Acetaminophen/Butalbital/Caffe 1 tab PO DAILY PRN 05/14/17 05/11/18 [Fioricet] Gabapentin [Neurontin] 100 mg PO HS 05/14/17 05/11/18 Aspirin Enteric Coated [Aspirin EC] 81 mg PO DAILY 08/17/17 05/11/18 Atorvastatin Calcium [Lipitor] 80 mg PO HS 08/17/17 05/11/18 BuPROPion XL (24 HR) [Wellbutrin 150 mg PO DAILY 12/16/17 05/11/18 Xl] Cyclobenzaprine HCl 5 mg PO HS 12/16/17 05/11/18 Ezetimibe [Zetia] 10 mg PO DAILY 12/16/17 05/11/18 Sertraline [Zoloft] 100 mg PO DAILY 12/16/17 05/11/18 Topiramate [Topamax] 50 mg PO HS 12/16/17 05/11/18 amLODIPine [Norvasc] 5 mg PO DAILY 12/16/17 05/11/18 Metoprolol [Lopressor] 25 mg PO BID 02/25/18 05/11/18 Multivit-Min/FA/Lycopen/Lutein 1 tab PO DAILY 02/25/18 05/11/18 [Adults 50+ Multivitamin Tablet] Trazodone HCl 50 mg PO HS 02/25/18 05/11/18 Lisinopril [Zestril] 10 mg PO BID 03/28/18 05/11/18 Metformin HCl [Glucophage] 1,000 mg PO DAILY 03/28/18 05/11/18 Omeprazole [PriLOSEC] 20 mg PO DAILY 03/28/18 05/11/18 Tamsulosin HCl [Flomax] 0.4 mg PO DAILY 03/28/18 05/11/18 Warfarin [Coumadin] 5 mg PO MOWEFR 05/08/18 05/11/18 Warfarin [Coumadin] 7.5 mg PO SUTUTHSA 05/08/18 05/11/18 Previous Rx's Medication Instructions Recorded Nitroglycerin 0.4 mg SL Q5MIN PRN #14 tab.subl 08/22/17 OxyCODONE/APAP 10/325 [Percocet 1 each PO Q6HR PRN 14 Days #56 01/08/18 10/325 MG] tablet Levothyroxine [Synthroid] 150 mcg PO DAILY 30 Days #30 tablet 03/30/18 Fludrocortisone Acetate [Florinef] 0.1 mg PO DAILY #5 tablet 04/18/18 Allergies Allergy/AdvReac Type Severity Reaction Status Date / Time No Known Allergies Allergy Verified 05/11/18 14:35 All systems ED: reviewed and negative except as stated. Constitutional: Denies: fever Cardiovascular: Denies: chest pain Respiratory: Denies: dyspnea Gastrointestinal: Reports: abdominal pain (Chronic) Neurological: Reports: headache. Denies: weakness, numbness, paresthesias Past Medical History - Past Medical History Attestation: Yes The following information was validated with the patient. Source: patient Medical history: Reports: atrial fibrillation, cancer, coronary artery disease, CVA, diabetes, hypertension, myocardial infarction, peripheral artery disease, SVT, thyroid disease Surgical history: Reports: angioplasty/stent, appendectomy, coronary bypass ( CABG), herniorrhaphy, LE vascular intervention, tracheostomy Psychiatric history: Reports: no psych history - Social History Smoking Status: Former smoker Smokeless Tobacco Status: No Alcohol use: Reports: none Drug use: Reports: none Physical Exam - General Limitations: no limitations General appearance: alert, in no apparent distress - Head Head exam: atraumatic, normocephalic, normal inspection - Eye Eye exam: Present: normal appearance, PERRL, EOMI - ENT ENT exam: normal exam - Neck Neck exam: Present: normal inspection, full ROM - Chest Chest inspection: Present: normal inspection, symmetric chest wall rise - Respiratory Respiratory exam: Present: normal lung sounds bilaterally - Cardiovascular Cardiovascular exam: Present: normal rhythm, tachycardia, normal heart sounds - Abdominal Exam Abdominal exam: Present: soft, Non-Tender. Absent: tenderness, distention, rigidity - Extremities Exam Extremities exam: Present: normal inspection, full ROM - Expanded Upper Extremity Exam Shoulder exam: Present: normal inspection, full ROM Arm exam: Present: normal inspection, full ROM Elbow exam: Present: normal inspection, full ROM Forearm/Wrist exam: Present: normal inspection, full ROM Hand exam: Present: normal inspection, full ROM Vascular exam: Normal: radial pulse - Expanded Lower Extremity Exam Hip/Pelvis exam: Present: normal inspection, full ROM Upper leg exam: Present: normal inspection, full ROM Knee exam: Present: normal inspection, full ROM Lower leg exam: Present: normal inspection, full ROM Ankle exam: Present: normal inspection, full ROM Foot/toe exam: Present: normal inspection, full ROM Neurovascular/Tendon exam: Absent: motor deficit, sensory deficit - Neurological Exam Neurological exam: Present: alert, oriented X3, CN II-XII intact (With the exception of cranial nerve V deficits on the right) - Expanded Neurological Exam Patient oriented to: Present: person, place, time Speech: Present: fluid speech Cranial nerves: EOM function (II, III, IV, ): Normal, facial sensation (V): Normal, spinal accessory function (XI): Normal, tongue deviation (XII): Normal Motor strength - LUE: 5/5 Motor strength - RUE: 5/5 Motor strength - LLE: 5/5 Motor strength - RLE: 5/5 Sensory exam upper extremity: light touch: Normal Sensory exam lower extremity: light touch: Normal Coma Scale Eye Opening: Spontaneous Coma Scale Motor Response: Obeys Commands Coma Scale Verbal Response: Oriented Coma Scale Total: 15 - Skin Skin exam: Present: warm, dry Course Course Narrative: Patient seen and examined. Vital signs reviewed. Plan for CT head, EKG, labs including troponin. IV fluids for fluid challenge. - Reevaluation(s) Reevaluation #1: Discussed results of imaging and labs the patient and family. Agreeable with admission. He remains slightly hypotensive. Second liter of fluids ordered. Vital Signs Temperature 98.6 F 05/11/18 14:33 Pulse Rate 106 05/11/18 14:33 Respiratory Rate 20 05/11/18 14:33 Blood Pressure 90/61 05/11/18 14:33 O2 Sat by Pulse Oximetry 99 05/11/18 14:33 Temperature 98.6 F 05/11/18 14:33 Pulse Rate 104 05/11/18 17:13 Respiratory Rate 18 05/11/18 17:13 Blood Pressure 86/63 05/11/18 17:13 O2 Sat by Pulse Oximetry 93 05/11/18 17:13 Oxygen Delivery Oxygen Delivery Room Air Medical Decision Making - [facility] Narrative Medical decision making narrative: 78-year-old male presents with syncopal episode. Just discharged after chest pain evaluation. Noted to be slightly hypotensive on arrival. 2 L of fluid with improvement of his volume status. Labs reviewed. Noted to have potential UTI on urinalysis. Head CT negative. Patient admitted to the hospital service for further workup. - Lab Data Lab results reviewed: Yes I reviewed the patient's lab results. Result diagrams: 05/11/18 15:13 05/11/18 16:29 Lab Results 05/11/18 05/11/18 05/11/18 Range/Units 15:13 15:13 16:02 WBC 8.7 D (4.3-11.1) K/mcL RBC 4.96 (4.19-5.50) M/mcL Hgb 12.9 D (12.9-16.9) g/dL Hct 41.4 (37.5-50.1) % MCV 83.5 (83.0-100.0) fL MCH 26.0 L (28.0-33.3) pg MCHC 31.2 L (31.6-35.5) g/dL RDW 15.9 H (11.5-14.5) % Plt Count 358 (140-400) K/mcL MPV 10.2 (9.4-12.4) fL Immature Gran % 1.3 (0-4) % Seg Neutrophils % 75.4 % Lymphocytes % 12.6 % Monocytes % 8.8 % Eosinophils % 1.4 % Basophils % 0.5 % Neutrophils # 6.6 (1.6-8.9) K/mcL Lymphocytes # 1.1 (0.6-4.6) K/mcL Monocytes # 0.8 (0.0-1.3) K/mcL Eosinophils # 0.1 (0.0-0.6) K/mcL Basophils # 0.0 (0.0-0.2) K/mcL PT 16.8 H (9.4-12.1) Seconds INR 1.5 APTT 33.8 (26.0-36.0) Seconds Sodium (136-145) mEq/L Potassium (3.5-5.1) mEq/L Chloride (98-107) mEq/L Carbon Dioxide (23-29) mEq/L BUN (8-23) mg/dL Creatinine (0.70-1.30) mg/dL Est GFR ( Amer) (> 60) Est GFR (Non-Af Amer) (> 60) BUN/Creatinine Ratio (6-26) Glucose (70-105) mg/dL Calculated Osmolality (280-300) Lactic Acid (0.5-2.2) mmol/L Calcium (8.6-10.3) mg/dL Troponin I (< 0.04) ng/mL Urine Color (Yellow) Urine Clarity (Clear) Urine pH (5.0-8.0) pH Units Ur Specific [place] (1.010-1.025) Urine Protein (Neg-Trace) mg/dL Urine Glucose (UA) (Normal) mg/dL Urine Ketones (Negative) mg/dL Urine Blood (Negative) Urine Nitrite (Negative) Urine Bilirubin (Negative) Urine Urobilinogen (Normal) mg/dL Ur Leukocyte Esterase (Negative) Urine Microscopic RBC (0-3) per hpf Urine Microscopic WBC (0-3) per hpf Ur Squamous Epith Cells (None-Few) per lpf Urine Bacteria (None-Few) per hpf Hyaline Casts (None-Few) per lpf Ur Culture Indicated? (NO) Specimen Rejected Hemolyzed 05/11/18 05/11/18 05/11/18 Range/Units 16:29 17:42 17:54 WBC (4.3-11.1) K/mcL RBC (4.19-5.50) M/mcL Hgb (12.9-16.9) g/dL Hct (37.5-50.1) % MCV (83.0-100.0) fL MCH (28.0-33.3) pg MCHC (31.6-35.5) g/dL RDW (11.5-14.5) % Plt Count (140-400) K/mcL MPV (9.4-12.4) fL Immature Gran % (0-4) % Seg Neutrophils % % Lymphocytes % % Monocytes % % Eosinophils % % Basophils % % Neutrophils # (1.6-8.9) K/mcL Lymphocytes # (0.6-4.6) K/mcL Monocytes # (0.0-1.3) K/mcL Eosinophils # (0.0-0.6) K/mcL Basophils # (0.0-0.2) K/mcL PT (9.4-12.1) Seconds INR APTT (26.0-36.0) Seconds Sodium 133 L (136-145) mEq/L Potassium 5.3 H (3.5-5.1) mEq/L Chloride 103 (98-107) mEq/L Carbon Dioxide 25 (23-29) mEq/L BUN 41 H (8-23) mg/dL Creatinine 2.10 H (0.70-1.30) mg/dL Est GFR ( Amer) 37 L (> 60) Est GFR (Non-Af Amer) 31 L (> 60) BUN/Creatinine Ratio 20 (6-26) Glucose 162 H (70-105) mg/dL Calculated Osmolality 290 (280-300) Lactic Acid 1.0 (0.5-2.2) mmol/L Calcium 8.9 (8.6-10.3) mg/dL Troponin I < 0.03 (< 0.04) ng/mL Urine Color Yellow (Yellow) Urine Clarity Cloudy A (Clear) Urine pH 5.5 (5.0-8.0) pH Units Ur Specific [place] 1.015 (1.010-1.025) Urine Protein 30 H (Neg-Trace) mg/dL Urine Glucose (UA) Normal (Normal) mg/dL Urine Ketones Negative (Negative) mg/dL Urine Blood Negative (Negative) Urine Nitrite Negative (Negative) Urine Bilirubin Negative (Negative) Urine Urobilinogen Normal (Normal) mg/dL Ur Leukocyte Esterase Large H (Negative) Urine Microscopic RBC 5-15 H (0-3) per hpf Urine Microscopic WBC TNTC H (0-3) per hpf Ur Squamous Epith Cells Moderate H (None-Few) per lpf Urine Bacteria Few (None-Few) per hpf Hyaline Casts None Seen (None-Few) per lpf Ur Culture Indicated? YES A (NO) Specimen Rejected - Radiology Data Radiology results reviewed: Yes I reviewed the patient's radiology results. Chest X-Ray 05/11/18 14:40 IMPRESSION: No acute cardiopulmonary process. D/ / Oliver Vega MD / Oliver Vega MD Interpreting Provider: Oliver Vega MD Head CT 05/11/18 14:57 IMPRESSION: No acute intracranial abnormality. Chronic microvascular ischemic changes. Stable bilateral mastoid air cell opacification. D/ / George Aguirre / George Aguirre Interpreting Provider: George Aguirre - EKG Data EKG #1 EKG attestation: Yes I reviewed and interpreted this EKG. EKG results narrative: EKG demonstrates sinus tachycardia with a rate of 105. Left axis deviation. Poor R-wave progression. No gross ST elevations or depressions. No acute ischemic findings. No significant changes from previous EKG dated 05/08/18. S.B.A.R. - S.B.A.R. Situation: Demographics, MOA Background: Presenting Complaint, Relevant PMH, Meds, & Allergies Assessment: Vital Signs, Course and respsone to treatment, Exam Concerns, Patient/Family Expectation, Pertinant Lab Results Recommendation: Barrier(s) to disposition, Recommendation based on pending studies, treatments, or consults SDeb Report Given to: Dr. Alonso Jimenez Repor Time: 18:47 (Requests renal US and tx of UTI)
[2018-05-11 15:36] LABS: Basophils % 0.5 %; Eosinophils # 0.1 K/mcL (0.0-0.6); Eosinophils % 1.4 %; Hematocrit 41.4 % (37.5-50.1); Immature Granulocytes % 1.3 % (0-4); Lymphocytes # 1.1 K/mcL (0.6-4.6); Lymphocytes % 12.6 %; Mean Corpuscular HGB Conc 31.2 g/dL (31.6-35.5); Mean Corpuscular Volume 83.5 fL (83.0-100.0); Mean Platelet Volume 10.2 fL (9.4-12.4); Monocytes # 0.8 K/mcL (0.0-1.3); Monocytes % 8.8 %; Neutrophils # 6.6 K/mcL (1.6-8.9); Platelet Count 358 K/mcL (140-400); Red Blood Count 4.96 M/mcL (4.19-5.50); Red Cell Distribution Width 15.9 % (11.5-14.5); Segmented Neutrophils % 75.4 %
[2018-05-11 15:46] LABS: INR 1.5; Prothrombin Time 16.8 Seconds (9.4-12.1)
[2018-05-11 15:49] LABS: Activated Partial Thrombo Time 33.8 Seconds (26.0-36.0); Hemoglobin 12.9 g/dL (12.9-16.9)
[2018-05-11 17:01] LABS: BUN/Creatinine Ratio 20 (6-26); Blood Urea Nitrogen 41 mg/dL (8-23); Calcium 8.9 mg/dL (8.6-10.3); Carbon Dioxide 25 mEq/L (23-29); Chloride 103 mEq/L (98-107); Glucose 162 mg/dL (70-105); Osmolality,Calculated 290 (280-300); Potassium 5.3 mEq/L (3.5-5.1); Sodium 133 mEq/L (136-145); eGFR For Non-African Americans 31 (> 60)
[2018-05-11 17:02] LABS: Troponin I < 0.03 ng/mL (< 0.04)
[2018-05-11] MEDS ORDERED: 0.9 % Sodium Chloride 1,000 ML ONE (17:14)
--- NOTE | 2018-05-11 17:45 | Emergency Department Note ---
Disposition Clinical Impression: JAKE (acute kidney injury) Disposition: Admitted As Inpatient Referrals: Peter Carlson MD [Primary Care Provider] - General Adult HPI - General Chief complaint: ED Syncope Stated complaint: Syncope Time Seen by Provider: 05/11/18 14:35 Source: EMS Mode of arrival: EMS Limitations: no limitations - History of Present Illness Location: head Pain Scale: 5 Improves with: nothing Worsens with: nothing Associated symptoms: Reports: headaches Treatments Prior to Arrival: none - Related Data Home Medications Medication Instructions Recorded Confirmed Insulin Glargine,Hum.rec.anlog 22 unit SQ HS 12/09/15 05/08/18 [Lantus Solostar] Acetaminophen/Butalbital/Caffe 1 tab PO DAILY PRN 05/14/17 05/08/18 [Fioricet] Gabapentin [Neurontin] 100 mg PO HS 05/14/17 05/08/18 Aspirin Enteric Coated [Aspirin EC] 81 mg PO DAILY 08/17/17 05/08/18 Atorvastatin Calcium [Lipitor] 80 mg PO HS 08/17/17 05/08/18 BuPROPion XL (24 HR) [Wellbutrin 150 mg PO DAILY 12/16/17 05/08/18 Xl] Cyclobenzaprine HCl 5 mg PO HS 12/16/17 05/08/18 Ezetimibe [Zetia] 10 mg PO DAILY 12/16/17 05/08/18 Sertraline [Zoloft] 100 mg PO DAILY 12/16/17 05/08/18 Topiramate [Topamax] 50 mg PO HS 12/16/17 05/08/18 amLODIPine [Norvasc] 5 mg PO DAILY 12/16/17 05/08/18 Metoprolol [Lopressor] 25 mg PO BID 02/25/18 05/08/18 Multivit-Min/FA/Lycopen/Lutein 1 tab PO DAILY 02/25/18 05/08/18 [Adults 50+ Multivitamin Tablet] Trazodone HCl 50 mg PO HS 02/25/18 05/08/18 Lisinopril [Zestril] 10 mg PO BID 03/28/18 05/08/18 Metformin HCl [Glucophage] 1,000 mg PO DAILY 03/28/18 05/08/18 Omeprazole [PriLOSEC] 20 mg PO DAILY 03/28/18 05/08/18 Tamsulosin HCl [Flomax] 0.4 mg PO DAILY 03/28/18 05/08/18 Warfarin [Coumadin] 5 mg PO MOWEFR 05/08/18 05/08/18 Warfarin [Coumadin] 7.5 mg PO SUTUTHSA 05/08/18 05/08/18 Previous Rx's Medication Instructions Recorded Nitroglycerin 0.4 mg SL Q5MIN PRN #14 tab.subl 08/22/17 OxyCODONE/APAP 10/325 [Percocet 1 each PO Q6HR PRN 14 Days #56 01/08/18 10/325 MG] tablet Levothyroxine [Synthroid] 150 mcg PO DAILY 30 Days #30 tablet 03/30/18 Fludrocortisone Acetate [Florinef] 0.1 mg PO DAILY #5 tablet 04/18/18 Allergies Allergy/AdvReac Type Severity Reaction Status Date / Time No Known Allergies Allergy Verified 05/11/18 14:35 Constitutional: Denies: fever Cardiovascular: Denies: chest pain Respiratory: Denies: dyspnea Gastrointestinal: Reports: abdominal pain (Chronic) Neurological: Reports: headache. Denies: weakness, numbness, paresthesias Past Medical History - Past Medical History Medical history: Reports: atrial fibrillation, cancer, coronary artery disease, CVA, diabetes, hypertension, myocardial infarction, peripheral artery disease, SVT, thyroid disease Surgical history: Reports: angioplasty/stent, appendectomy, coronary bypass ( CABG), herniorrhaphy, LE vascular intervention, tracheostomy Psychiatric history: Reports: no psych history - Social History Smoking Status: Former smoker Smokeless Tobacco Status: No Alcohol use: Reports: none Drug use: Reports: none Physical Exam - General Limitations: no limitations General appearance: alert, in no apparent distress Course Vital Signs Temperature 98.6 F 05/11/18 14:33 Pulse Rate 106 05/11/18 14:33 Respiratory Rate 20 05/11/18 14:33 Blood Pressure 90/61 05/11/18 14:33 O2 Sat by Pulse Oximetry 99 05/11/18 14:33 Temperature 98.6 F 05/11/18 14:33 Pulse Rate 104 05/11/18 17:13 Respiratory Rate 18 05/11/18 17:13 Blood Pressure 86/63 05/11/18 17:13 O2 Sat by Pulse Oximetry 93 05/11/18 17:13 Oxygen Delivery Oxygen Delivery Room Air Medical Decision Making - Lab Data Result diagrams: 05/11/18 15:13 05/11/18 16:29 Lab Results 05/11/18 05/11/18 05/11/18 Range/Units 15:13 15:13 16:02 WBC 8.7 D (4.3-11.1) K/mcL RBC 4.96 (4.19-5.50) M/mcL Hgb 12.9 D (12.9-16.9) g/dL Hct 41.4 (37.5-50.1) % MCV 83.5 (83.0-100.0) fL MCH 26.0 L (28.0-33.3) pg MCHC 31.2 L (31.6-35.5) g/dL RDW 15.9 H (11.5-14.5) % Plt Count 358 (140-400) K/mcL MPV 10.2 (9.4-12.4) fL Immature Gran % 1.3 (0-4) % Seg Neutrophils % 75.4 % Lymphocytes % 12.6 % Monocytes % 8.8 % Eosinophils % 1.4 % Basophils % 0.5 % Neutrophils # 6.6 (1.6-8.9) K/mcL Lymphocytes # 1.1 (0.6-4.6) K/mcL Monocytes # 0.8 (0.0-1.3) K/mcL Eosinophils # 0.1 (0.0-0.6) K/mcL Basophils # 0.0 (0.0-0.2) K/mcL PT 16.8 H (9.4-12.1) Seconds INR 1.5 APTT 33.8 (26.0-36.0) Seconds Sodium (136-145) mEq/L Potassium (3.5-5.1) mEq/L Chloride (98-107) mEq/L Carbon Dioxide (23-29) mEq/L BUN (8-23) mg/dL Creatinine (0.70-1.30) mg/dL Est GFR ( Amer) (> 60) Est GFR (Non-Af Amer) (> 60) BUN/Creatinine Ratio (6-26) Glucose (70-105) mg/dL Calculated Osmolality (280-300) Calcium (8.6-10.3) mg/dL Troponin I (< 0.04) ng/mL Specimen Rejected Hemolyzed 05/11/18 Range/Units 16:29 WBC (4.3-11.1) K/mcL RBC (4.19-5.50) M/mcL Hgb (12.9-16.9) g/dL Hct (37.5-50.1) % MCV (83.0-100.0) fL MCH (28.0-33.3) pg MCHC (31.6-35.5) g/dL RDW (11.5-14.5) % Plt Count (140-400) K/mcL MPV (9.4-12.4) fL Immature Gran % (0-4) % Seg Neutrophils % % Lymphocytes % % Monocytes % % Eosinophils % % Basophils % % Neutrophils # (1.6-8.9) K/mcL Lymphocytes # (0.6-4.6) K/mcL Monocytes # (0.0-1.3) K/mcL Eosinophils # (0.0-0.6) K/mcL Basophils # (0.0-0.2) K/mcL PT (9.4-12.1) Seconds INR APTT (26.0-36.0) Seconds Sodium 133 L (136-145) mEq/L Potassium 5.3 H (3.5-5.1) mEq/L Chloride 103 (98-107) mEq/L Carbon Dioxide 25 (23-29) mEq/L BUN 41 H (8-23) mg/dL Creatinine 2.10 H (0.70-1.30) mg/dL Est GFR ( Amer) 37 L (> 60) Est GFR (Non-Af Amer) 31 L (> 60) BUN/Creatinine Ratio 20 (6-26) Glucose 162 H (70-105) mg/dL Calculated Osmolality 290 (280-300) Calcium 8.9 (8.6-10.3) mg/dL Troponin I < 0.03 (< 0.04) ng/mL Specimen Rejected Attestation Statement - Attestation Attestation: I examined this patient and my medical decision-making was reviewed with the Resident Physician. I agree with the documented findings, disposition and treatment plan as described except to the extent set forth below. 78 year old male presents to the ED with complaints of alterd mental status and syncoe and was most recently evaluted here and discharged home. Montse appears to be altered on my exam today and is tachycardiac and hypotensive and we are concnerd for sepsis as he has new JAKE, and has decreased appetite and intake. 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 WE will admit to medicnie secondary to hyperkalemia, and hypotension, and possible sepsis
[2018-05-11 18:08] LABS: Bilirubin,Urine Negative (Negative); Blood,Urine Negative (Negative); Clarity,Urine Cloudy (Clear); Color,Urine Yellow (Yellow); Glucose,Urine (UA) Normal (Normal); Ketones,Urine Negative (Negative); Leukocyte Esterase,Urine Large (Negative); Nitrite,Urine Negative (Negative); PH,Urine 5.5 pH Units (5.0-8.0); Protein,Urine 30 mg/dL (Neg-Trace); Specific Gravity,Urine 1.015 (1.010-1.025); Urobilinogen,Urine Normal (Normal)
[2018-05-11 18:11] LABS: Bacteria,Urine Few per hpf (None-Few); Hyaline Casts,Urine None Seen per lpf (None-Few); Squamous Epithelial Cell,Urine Moderate per lpf (None-Few); WBC,Urine TNTC per hpf (0-3)
[2018-05-11] MEDS ORDERED: cefTRIAXone 1,000 MG in Water for inj. (sterile) 20 ML 10 ML IVP ONE (18:43)
[2018-05-11] MEDS ORDERED: Topiramate 25 MG TABLET PO SCH (21:00)
[2018-05-11] MEDS ORDERED: *HR* Warfarin 5 MG TABLET PO SCH (21:30)
--- NOTE | 2018-05-11 21:35 | Internal Med History&Physical ---
Date of Encounter: 05/12/18 Time of Encounter: 19:00 Internal Medicine - H&P: HPI Admitted From: Home Plans for Post Hospital Care: Home History of present illness: Mr. Salmeron is a 78 year old male with history of A. fib on Coumadin, CAD status post stents, ?nasal cancer s/p trach and recent admission for chest pain presented to the ED after a syncopal episode at home. As per at bedside, he was sitting in chair when his eyes rolled back and he started to have jerky movements of his extremities along with urinary incontinence. As per he has had similar episodes in the past but this episode lasted for longer period of time so she decided to call the EMS. He denies loss of consciousness or head trauma or recent falls. He denies headache vision changes , nausea, vomiting. He can recall the incident. His only complaint is pain on urination. his dysuria started 3 days ago and is progressively worsening. cannot recall any alleviating or aggravating symptoms, denies hematuria. he denies chest pain, palpitations, SOB, vision loss, loss of function in his extremities, loss of sensation, tongue biting or fecal incontinence. he reports compliance with his medications. while in the ED CT head was done which showed no acute abnormalities, he was hypotensive and tachycardic he was started in IVF boluses which improved his symptoms. he was also started on ABX for UTI. Past Med Surg Social Fam HX - Past Medical History Medical history: atrial fibrillation, cancer, coronary artery disease, CVA, diabetes, hypertension, myocardial infarction, peripheral artery disease, SVT, thyroid disease Additional medical history: nose cancer. trach Psychiatric history: no psych history - Past Surgical History Surgical History: angioplasty/stent, appendectomy, coronary bypass (CABG), herniorrhaphy, LE vascular intervention, tracheostomy Additional surgical history: BACK SURGERY, tracheostomy - Social History Smoking Status: Former smoker Smokeless Tobacco Status: No Alcohol use: none Drug use: none - Family History Mother Living Status: Hx Family Cardiac Disorders: No Hx Family Respiratory Disorders: No Hx Family Cancer: No Hx Family GI Disorders: No Hx Family Endocrine Disorder: No Hx Family Neuromuscular Disorders: No Hx Family Neurologic Disorders: No Hx Family HEENT Disorders: No Hx Family Autoimmune Disorders: No Father Living Status: Hx Family Cardiac Disorders: No Hx Family Respiratory Disorders: No Hx Family Cancer: No Hx Family GI Disorders: No Hx Family Endocrine Disorder: No Hx Family Neuromuscular Disorders: No Hx Family Neurologic Disorders: No Hx Family HEENT Disorders: No Hx Family Autoimmune Disorders: No Sister Living Status: Hx Family Cancer: Yes (lung cancer) Internal Medicine - H&P: Meds RX: Insulin Glargine,Hum.rec.anlog [Lantus Solostar] 22 unit SQ HS 12/09/15 [ History] RX: Acetaminophen/Butalbital/Caffe [Fioricet] 1 tab PO DAILY PRN 05/14/17 [ History] RX: Gabapentin [Neurontin] 100 mg PO HS 05/14/17 [History] RX: Aspirin Enteric Coated [Aspirin EC] 81 mg PO DAILY 08/17/17 [History] RX: Atorvastatin Calcium [Lipitor] 80 mg PO HS 08/17/17 [History] RX: Nitroglycerin 0.4 mg SL Q5MIN PRN #14 tab.subl 08/22/17 [Rx] RX: BuPROPion XL (24 HR) [Wellbutrin Xl] 150 mg PO DAILY 12/16/17 [History] RX: Cyclobenzaprine HCl 5 mg PO HS 12/16/17 [History] RX: Ezetimibe [Zetia] 10 mg PO DAILY 12/16/17 [History] RX: Sertraline [Zoloft] 100 mg PO DAILY 12/16/17 [History] RX: Topiramate [Topamax] 50 mg PO HS 12/16/17 [History] RX: amLODIPine [Norvasc] 5 mg PO DAILY 12/16/17 [History] RX: OxyCODONE/APAP 10/325 [Percocet 10/325 MG] 1 each PO Q6HR PRN 14 Days #56 tablet 01/08/18 [Rx] RX: Metoprolol [Lopressor] 25 mg PO BID 02/25/18 [History] RX: Multivit-Min/FA/Lycopen/Lutein [Adults 50+ Multivitamin Tablet] 1 tab PO DAILY 02/25/18 [History] RX: Trazodone HCl 50 mg PO HS 02/25/18 [History] RX: Lisinopril [Zestril] 10 mg PO BID 03/28/18 [History] RX: Metformin HCl [Glucophage] 1,000 mg PO DAILY 03/28/18 [History] RX: Omeprazole [PriLOSEC] 20 mg PO DAILY 03/28/18 [History] RX: Tamsulosin HCl [Flomax] 0.4 mg PO DAILY 03/28/18 [History] RX: Levothyroxine [Synthroid] 150 mcg PO DAILY 30 Days #30 tablet 03/30/18 [Rx] RX: Fludrocortisone Acetate [Florinef] 0.1 mg PO DAILY #5 tablet 04/18/18 [Rx] RX: Warfarin [Coumadin] 5 mg PO MOWEFR 05/08/18 [History] RX: Warfarin [Coumadin] 7.5 mg PO SUTUTHSA 05/08/18 [History] 3 Allergy/AdvReac Type Severity Reaction Status Date / Time No Known Allergies Allergy Verified 05/11/18 14:35 All Systems PM: review of systems was performed and is negative for pertinent findings except as documented above in the HPI. - Constitutional Vitals: Temp Pulse Resp BP Pulse Ox 98.2 F 102 16 114/72 100 05/11/18 21:03 05/11/18 21:03 05/11/18 21:03 05/11/18 21:03 05/11/18 21:03 - Other Additional findings: General: Patient is alert, oriented, no acute distress, Head: atraumatic, normocephalic, Eye: normal appearance, PERRL, no scleral icterus, no conjunctival injection ENT: mucous membranes moist, normal external ear exam, trach site is clean Neck: normal inspection, trachea midline, full ROM, no carotid bruits Chest: normal inspection, symmetric chest rise Respiratory: Good respiratory effort. Bilateral breath sounds are clear without wheezing, crackles, or rhonchi. Cardiovascular: irreglarly irregular s1 and s2 No clicks, rubs, gallops, or murmors. Abdomen: Bowel sounds present normoactive x-4 quadrants. Abdomen is soft, nondistended. Epigastric tenderness. No guarding or rebound. No organomegaly noted, obese musculoskeletal: Spontaneously moving all extremities. no edema, no calf tenderness Skin: warm, dry, intact. Neuro: Alert and oriented x4. Sensation light touch intact. Cranial nerves 2- 12 is intact. Not aphasic, strength is 5/5 in all extremities Psych: Patient's affect is normal Internal Med - H&P Results - Labs CBC & Chem 7: 05/11/18 15:13 05/11/18 16:29 - EKG Data -: EKG Interpreted by Myself (Aflutter, LAD, Qwaves in III and AVF ) - EKG Data Prior EKG available for review: yes When compared to previous EKG: there is no significant change - Assessment and plan (1) Episode of syncope Current Visit: Yes Status: Acute Assessment and plan: can be secondary to vasovagal ( hypotensive) vs new onset seizures ( had jerky movement nad incontinence) vs arrhythmia tele monitoring CT head negative for any acute abnormalities hypotension improved with IVF - being treated for sepsis neurology consulted - spoke to neurologist - he will consider EEG possibly for the AM argenis increase topiramate dosage from once dailt to BID will follow CPK, magnesium will continue IVF orthostatic vitals Qualifiers: Syncope type: unspecified Qualified Code(s): R55 - Syncope and collapse (2) UTI (urinary tract infection) Current Visit: No Status: Acute Assessment and plan: hypotensive and tachycardic with positive UA BP has improved with IVF currently on ceftriaxone follow ucx renal US was ordered will follow results Qualifiers: Urinary tract infection type: acute cystitis Hematuria presence: without hematuria Qualified Code(s): N30.00 - Acute cystitis without hematuria (3) Sepsis Current Visit: Yes Status: Acute Assessment and plan: seconday to above vitals as per protocol lactic acid negative follow landa cx management same as above held all BP meds secondary to hypotension BP was in the 80s currently improving on IVF Qualifiers: Sepsis type: sepsis due to unspecified organism Qualified Code(s): A41.9 - Sepsis, unspecified organism (4) Hyperkalemia Current Visit: Yes Status: Acute Assessment and plan: was treated with calcium gluconate and one dose of kayaxelate follow BMP in the morning (5) JAKE (acute kidney injury) Current Visit: No Status: Resolved Assessment and plan: most likely from hypotension and dehdyration on IVF renal US was ordered to rule out obstruction or hydronephrosis - will follow strict intake and out put follow bmp in the AM avoid nephrotoxic drugs (6) Atrial fibrillation Current Visit: No Status: Chronic Assessment and plan: will continue home medications unless contraindicated on coumadin Qualifiers: Atrial fibrillation type: paroxysmal Qualified Code(s): I48.0 - Paroxysmal atrial fibrillation (7) DVT prophylaxis Current Visit: No Status: Acute Assessment and plan: on coumadin folllow INR - Time Spent With Patient Total time spent is greater than 50% in coordination of care (as documented) at patient's floor/unit and/or counseling patient:
[2018-05-11] MEDS: traZODone 50 MG TABLET PO SCH (21:59)
[2018-05-11] MEDS: Insulin DETEMIR 100 UNIT/ML X5UNITS SQ SCH (22:02)
[2018-05-11 22:09] LABS: Phosphorous 4.2 mg/dL (2.7-4.5)
[2018-05-11] MEDS ORDERED: *HR* OxyCODONE/APAP 7.5/325 TABLET PO ONE (23:03)
[2018-05-11] MEDS: 0.9 % Sodium Chloride 1,000 ML IVC SCH (23:55)
[2018-05-12 04:54] LABS: Basophils % 0.3 %; Eosinophils # 0.4 K/mcL (0.0-0.6); Eosinophils % 4.6 %; Immature Granulocytes % 1.1 % (0-4); Lymphocytes # 1.3 K/mcL (0.6-4.6); Mean Corpuscular HGB Conc 30.3 g/dL (31.6-35.5); Mean Corpuscular Hemoglobin 25.3 pg (28.0-33.3); Mean Corpuscular Volume 83.5 fL (83.0-100.0); Mean Platelet Volume 9.6 fL (9.4-12.4); Monocytes # 0.6 K/mcL (0.0-1.3); Monocytes % 7.9 %; Neutrophils # 5.2 K/mcL (1.6-8.9); Platelet Count 311 K/mcL (140-400); Red Blood Count 4.19 M/mcL (4.19-5.50); Red Cell Distribution Width 15.9 % (11.5-14.5); Segmented Neutrophils % 69.1 %
[2018-05-12 05:03] LABS: Calcium 8.4 mg/dL (8.6-10.3); Potassium 4.3 mEq/L (3.5-5.1)
[2018-05-12 05:04] LABS: INR 1.5; Prothrombin Time 17.2 Seconds (9.4-12.1)
[2018-05-12 05:08] LABS: Hemoglobin 10.6 g/dL (12.9-16.9)
--- NOTE | 2018-05-12 09:26 | Internal Med Progress Note ---
Date of Encounter: 05/12/18 Time of Encounter: 09:19 - Assessment and plan (1) Episode of syncope Current Visit: Yes Status: Acute Assessment and plan: can be secondary to vasovagal ( hypotensive) vs new onset seizures ( had jerky movement nad incontinence) vs arrhythmia tele monitoring. CT head negative. Will do stroke workup therefore MRI, echocardiogram and carotid ultrasound ordered. Patient also has been feeling unrested E in gait for last few days to weeks. Neurologists consulted. Hypertensin improve after IV fluid and antibiotic as he being treated for sepsis due to underlying UTI. Plan for EEG today. Initial troponin negative. Serial troponin and consultation to cardiology. Subtherapeutic INR therefore increased warfarin 7.5 mg daily. Further anticoagulation management as per cardiology advice. Qualifiers: Syncope type: unspecified Qualified Code(s): R55 - Syncope and collapse (2) JAKE (acute kidney injury) Current Visit: No Status: Resolved Assessment and plan: most likely prerenal or sepsis related secondary to UTI. Gentle hydration with a strict I&O's. Renal ultrasound revealed with bladder debris is in mild distention. Consulted urologists. follow bmp in the AM avoid nephrotoxic drugs (3) UTI (urinary tract infection) Current Visit: No Status: Acute Assessment and plan: Urine culture pending. Continue IV antibiotic ceftriaxone. Qualifiers: Urinary tract infection type: acute cystitis Hematuria presence: without hematuria Qualified Code(s): N30.00 - Acute cystitis without hematuria (4) Atrial fibrillation Current Visit: No Status: Chronic Assessment and plan: With mild RVR. Is started metoprolol. Increase dose of Coumadin 7.5 mg daily due to subtherapeutic INR. Pharmacy consultation for INR monitoring Qualifiers: Atrial fibrillation type: paroxysmal Qualified Code(s): I48.0 - Paroxysmal atrial fibrillation (5) Hyperkalemia Current Visit: Yes Status: Acute Assessment and plan: Trending down. Continue to monitor. was treated with calcium gluconate and one dose of kayaxelate follow BMP in the morning (6) Sepsis Current Visit: Yes Status: Acute Assessment and plan: Secondary to UTI most likely. Blood and urine culture report awaited. Discontinued IV fluid but encouraged to increase oral diet. Initial lactic acid negative. Continue IV antibiotic. Qualifiers: Sepsis type: sepsis due to unspecified organism Qualified Code(s): A41.9 - Sepsis, unspecified organism (7) DVT prophylaxis Current Visit: No Status: Acute Assessment and plan: on coumadin folllow INR - Time Spent With Patient Total time spent is greater than 50% in coordination of care (as documented) at patient's floor/unit and/or counseling patient: Greater than 35 minutes (Spent more than 35 minutes in patient care communication with nursing staff, consultants. Patient education) - Subjective Interval history: Patient feeling slightly better but is still dirty looking urine. Patient complained of feeling wobbly for last few weeks . Vitals stable with slight tachycardia. Review the lab trending down creatinine and better glucose level. INR subtherapeutic. Urine culture report awaited. Blood culture with no growth - Constitutional Vitals: Temp Pulse Resp BP Pulse Ox 98.0 F 104 18 156/82 99 05/12/18 07:23 05/12/18 07:23 05/12/18 07:23 05/12/18 07:23 05/12/18 07:23 Exam: General appearance: No acute distress, A&O X 3 in a slow speech Head exam: Atraumatic Eye exam: EOMI, PERRLA ENT exam: Moist oral mucosa Neck nontender, supple Respiratory exam: Clear to auscultation bilaterally Cardiovascular exam: Slight tachycarDIA, 2 x 6 systolic murmur Abdominal exam: Soft, nontender, nondistended, positive bowel sounds Extremities exam: No calf tenderness, no pedal edema Present: Skin- warm, dry, intact Neurological exam: CN II-XII grossly intact. No facial droop. Normal speech. Unsteady gait Internal Medicine: Result - Labs CBC & Chem 7: 05/12/18 04:20 05/12/18 04:20 Labs: Short CBC 05/12/18 Range/Units 04:20 WBC 7.6 (4.3-11.1) K/mcL Hgb 10.6 L D (12.9-16.9) g/dL Hct 35.0 L (37.5-50.1) % Plt Count 311 (140-400) K/mcL Neutrophils # 5.2 (1.6-8.9) K/mcL BMP 05/12/18 04:20 Sodium 138 Potassium 4.3 Chloride 106 Carbon Dioxide 25 BUN 36 H Creatinine 1.45 H Glucose 140 H Calcium 8.4 L - ABG Interpretation ABG results: PT/INR, D-dimer PT 17.2 Seconds (9.4-12.1) H 05/12/18 04:20 Consult Discharge Plan - Plan
[2018-05-12] MEDS ORDERED: Nitroglycerin 0.4 MG TAB.SUBL SL PRN (09:33)
[2018-05-12] MEDS: 0.9 % Sodium Chloride 1,000 ML IVC SCH ×2 (09:46→09:50)
[2018-05-12] MEDS: BuPROPion XL (24 HR) 150 MG TABLET PO SCH (09:49)
[2018-05-12] MEDS: Topiramate 25 MG TABLET PO SCH ×2 (09:49→20:31)
[2018-05-12] MEDS: Multivit/Ca/Min/Fe/FA 1 TAB TABLET PO SCH (09:49)
[2018-05-12] MEDS: Aspirin Enteric Coated 81 MG Tablet PO SCH (09:50)
--- NOTE | 2018-05-12 11:18 | Urology - Consult Note ---
Date of Encounter: 05/12/18 Time of Encounter: 11:16 - Assessment and Plan (1) Dysuria Current Visit: Yes Status: Acute Assessment and plan: Continue to follow urine cultures and switch to culture specific antibiotics available (2) Incomplete emptying of bladder Current Visit: Yes Status: Acute Assessment and plan: I reviewed the ultrasound and he does have some mild incomplete emptying. Bladder debris is present but does not appear to be a large amount. This is not unexpected with his history of incomplete emptying and previous intermittent catheterization. I do not feel he requires catheter placement or surgical intervention at this time. Follow-up with Dr. Canseco on a non- urgent outpatient basis is appropriate. Follow cultures. Urology CN:HPI Consult date: 05/12/18 Reason for consult Urology: Other History of present illness: patient known to Dr Canseco. history of BPH and retention. previous on intermittent catherization but states he is not catheterized himself for at least 6 months because he has been urinating fine. He presents to the hospital with some dysuria which is now resolved. Reports urinating well. Ultrasound demonstrates some debris within the bladder. He still has some dizziness. Past Med Surg Social Fam HX - Past Medical History Medical history: atrial fibrillation, cancer, coronary artery disease, CVA, diabetes, hypertension, myocardial infarction, peripheral artery disease, SVT, thyroid disease Additional medical history: nose cancer. trach Psychiatric history: no psych history - Past Surgical History Surgical History: angioplasty/stent, appendectomy, coronary bypass (CABG), herniorrhaphy, LE vascular intervention, tracheostomy Additional surgical history: BACK SURGERY, tracheostomy - Social History Smoking Status: Former smoker Smokeless Tobacco Status: No Alcohol use: none Drug use: none - Family History Mother Living Status: Hx Family Cardiac Disorders: No Hx Family Respiratory Disorders: No Hx Family Cancer: No Hx Family GI Disorders: No Hx Family Endocrine Disorder: No Hx Family Neuromuscular Disorders: No Hx Family Neurologic Disorders: No Hx Family HEENT Disorders: No Hx Family Autoimmune Disorders: No Father Living Status: Hx Family Cardiac Disorders: No Hx Family Respiratory Disorders: No Hx Family Cancer: No Hx Family GI Disorders: No Hx Family Endocrine Disorder: No Hx Family Neuromuscular Disorders: No Hx Family Neurologic Disorders: No Hx Family HEENT Disorders: No Hx Family Autoimmune Disorders: No Sister Living Status: Hx Family Cancer: Yes (lung cancer) Medications and Allergies Insulin Glargine,Hum.rec.anlog [Lantus Solostar] 22 unit SQ HS 12/09/15 [History ] Acetaminophen/Butalbital/Caffe [Fioricet] 1 tab PO DAILY PRN 05/14/17 [History] Gabapentin [Neurontin] 100 mg PO HS 05/14/17 [History] Aspirin Enteric Coated [Aspirin EC] 81 mg PO DAILY 08/17/17 [History] Atorvastatin Calcium [Lipitor] 80 mg PO HS 08/17/17 [History] Nitroglycerin 0.4 mg SL Q5MIN PRN #14 tab.subl 08/22/17 [Rx] BuPROPion XL (24 HR) [Wellbutrin Xl] 150 mg PO DAILY 12/16/17 [History] Cyclobenzaprine HCl 5 mg PO HS 12/16/17 [History] Ezetimibe [Zetia] 10 mg PO DAILY 12/16/17 [History] Sertraline [Zoloft] 100 mg PO DAILY 12/16/17 [History] Topiramate [Topamax] 50 mg PO HS 12/16/17 [History] amLODIPine [Norvasc] 5 mg PO DAILY 12/16/17 [History] OxyCODONE/APAP 10/325 [Percocet 10/325 MG] 1 each PO Q6HR PRN 14 Days #56 tablet 01/08/18 [Rx] Metoprolol [Lopressor] 25 mg PO BID 02/25/18 [History] Multivit-Min/FA/Lycopen/Lutein [Adults 50+ Multivitamin Tablet] 1 tab PO DAILY 02/25/18 [History] Trazodone HCl 50 mg PO HS 02/25/18 [History] Lisinopril [Zestril] 10 mg PO BID 03/28/18 [History] Metformin HCl [Glucophage] 1,000 mg PO DAILY 03/28/18 [History] Omeprazole [PriLOSEC] 20 mg PO DAILY 03/28/18 [History] Tamsulosin HCl [Flomax] 0.4 mg PO DAILY 03/28/18 [History] Levothyroxine [Synthroid] 150 mcg PO DAILY 30 Days #30 tablet 03/30/18 [Rx] Fludrocortisone Acetate [Florinef] 0.1 mg PO DAILY #5 tablet 04/18/18 [Rx] Warfarin [Coumadin] 5 mg PO MOWEFR 05/08/18 [History] Warfarin [Coumadin] 7.5 mg PO SUTUTHSA 05/08/18 [History] 3 Allergy/AdvReac Type Severity Reaction Status Date / Time No Known Allergies Allergy Verified 05/11/18 14:35 Review of Systems - Constitutional no fever(s) - Cardiovascular no chest pain - Genitourinary dysuria, no difficulty urinating Exam Initial Vital Signs Temp Pulse Resp BP Pulse Ox 98.6 F 106 20 90/61 99 05/11/18 14:33 05/11/18 14:33 05/11/18 14:33 05/11/18 14:33 05/11/18 14:33 - General physical appearance Present: no distress - ENT Present: normal nares - Respiratory Present: normal respiratory effort, other (Permanent tracheostomy) - Cardiovascular Cardiovascular exam IM: RRR - Abdomen Abdomen: Present: soft - Neurologic Present: normal coordination. Absent: disoriented, confused Urology Results - Labs 05/12/18 04:20 05/12/18 04:20 Abnormal lab results Hgb 10.6 g/dL (12.9-16.9) L D 05/12/18 04:20 Hct 35.0 % (37.5-50.1) L 05/12/18 04:20 MCH 25.3 pg (28.0-33.3) L 05/12/18 04:20 MCHC 30.3 g/dL (31.6-35.5) L 05/12/18 04:20 RDW 15.9 % (11.5-14.5) H 05/12/18 04:20 PT 17.2 Seconds (9.4-12.1) H 05/12/18 04:20 BUN 36 mg/dL (8-23) H 05/12/18 04:20 Creatinine 1.45 mg/dL (0.70-1.30) H 05/12/18 04:20 Est GFR ( Amer) 57 (> 60) L 05/12/18 04:20 Est GFR (Non-Af Amer) 47 (> 60) L 05/12/18 04:20 Glucose 140 mg/dL (70-105) H 05/12/18 04:20 Calcium 8.4 mg/dL (8.6-10.3) L 05/12/18 04:20 Urine Clarity Cloudy (Clear) A 05/11/18 17:54 Urine Protein 30 mg/dL (Neg-Trace) H 05/11/18 17:54 Ur Leukocyte Esterase Large (Negative) H 05/11/18 17:54 Urine Microscopic RBC 5-15 per hpf (0-3) H 05/11/18 17:54 Urine Microscopic WBC TNTC per hpf (0-3) H 05/11/18 17:54 Ur Squamous Epith Cells Moderate per lpf (None-Few) H 05/11/18 17:54 Ur Culture Indicated? YES (NO) A 05/11/18 17:54 Diabetes panel 05/12/18 Range/Units 04:20 Sodium 138 (136-145) mEq/L Potassium 4.3 (3.5-5.1) mEq/L Chloride 106 (98-107) mEq/L Carbon Dioxide 25 (23-29) mEq/L BUN 36 H (8-23) mg/dL Creatinine 1.45 H (0.70-1.30) mg/dL Glucose 140 H (70-105) mg/dL Calcium 8.4 L (8.6-10.3) mg/dL Calcium panel 05/11/18 05/12/18 Range/Units 21:37 04:20 Calcium 8.4 L (8.6-10.3) mg/dL Phosphorus 4.2 (2.7-4.5) mg/dL Pituitary panel 05/12/18 Range/Units 04:20 Sodium 138 (136-145) mEq/L Potassium 4.3 (3.5-5.1) mEq/L Chloride 106 (98-107) mEq/L Carbon Dioxide 25 (23-29) mEq/L BUN 36 H (8-23) mg/dL Creatinine 1.45 H (0.70-1.30) mg/dL Glucose 140 H (70-105) mg/dL Calcium 8.4 L (8.6-10.3) mg/dL Adrenal panel 05/12/18 Range/Units 04:20 Sodium 138 (136-145) mEq/L Potassium 4.3 (3.5-5.1) mEq/L Chloride 106 (98-107) mEq/L Carbon Dioxide 25 (23-29) mEq/L BUN 36 H (8-23) mg/dL Creatinine 1.45 H (0.70-1.30) mg/dL Glucose 140 H (70-105) mg/dL Calcium 8.4 L (8.6-10.3) mg/dL All other labs normal. Consult Discharge Plan - Plan Referrals: Peter Carlson MD [Primary Care Provider] -
[2018-05-12] MEDS ORDERED: Acetaminophen 325 MG TABLET PO PRN (14:57)
[2018-05-12] MEDS: *HR* OxyCODONE/APAP 10/325 TABLET PO PRN (15:44)
--- NOTE | 2018-05-12 15:51 | Neurology - Consult Note ---
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 In the clinical context of UTI slightly dehydration and being sick is possible that could have a seizure. On the other hand with his history of carotid stenosis is possible that it could be due to hypoperfusion and sometime convulsive syncope look exactly like a seizure. Currently he is been getting antibiotics and been treated for UTI suggest to continue aspirin recommendations from neurology and also continued on IV fluids. As he is already on Topamax for chronic headache prevention I have suggested to increase the dose to twice a day instead of the starting him on and other antiepileptic medication. As he is back to his baseline do not think that EEG would be helpful as it probably going to be negative. I suggest getting an MRI of the brain along with MRA of the neck especially to look for any carotid or vertebral stenosis along with any other intracranial abnormality. Discussed in detail with the patient and the family (2) History of carotid artery stenosis Current Visit: Yes Status: Acute History of Present Illness HPI: Mr. Salmeron is a 78 year old male with history of A. fib on Coumadin, CAD status post stents, nasal cancer s/p trach presented to the ED after a syncopal episode at home. As per he was sitting in chair when his eyes rolled back and he started to have jerky movements of his extremities along with urinary incontinence. As per he has had similar episodes in the past but this episode lasted for longer period of time so she decided to call the EMS. He denies headache vision changes, nausea, vomiting. He can recall the incident. His only complaint is pain on urination. his dysuria started 3 days ago and is progressively worsening. he denies chest pain, palpitations, SOB, vision loss, loss of function in his extremities, loss of sensation, tongue biting or fecal incontinence. CT head showed no acute abnormalities, he was hypotensive and tachycardic he was started in IVF boluses which improved his symptoms. he was also started on ABX for UTI. Now he seemed back to his baseline Past Med Surg Social Fam HX - Past Medical History Medical history: atrial fibrillation, cancer, coronary artery disease, CVA, diabetes, hypertension, myocardial infarction, peripheral artery disease, SVT, thyroid disease Additional medical history: nose cancer. trach Psychiatric history: no psych history - Past Surgical History Surgical History: angioplasty/stent, appendectomy, coronary bypass (CABG), herniorrhaphy, LE vascular intervention, tracheostomy Additional surgical history: BACK SURGERY, tracheostomy - Social History Smoking Status: Former smoker Smokeless Tobacco Status: No Alcohol use: none Drug use: none - Family History Mother Living Status: Hx Family Cardiac Disorders: No Hx Family Respiratory Disorders: No Hx Family Cancer: No Hx Family GI Disorders: No Hx Family Endocrine Disorder: No Hx Family Neuromuscular Disorders: No Hx Family Neurologic Disorders: No Hx Family HEENT Disorders: No Hx Family Autoimmune Disorders: No Father Living Status: Hx Family Cardiac Disorders: No Hx Family Respiratory Disorders: No Hx Family Cancer: No Hx Family GI Disorders: No Hx Family Endocrine Disorder: No Hx Family Neuromuscular Disorders: No Hx Family Neurologic Disorders: No Hx Family HEENT Disorders: No Hx Family Autoimmune Disorders: No Sister Living Status: Hx Family Cancer: Yes (lung cancer) Medications and Allergies Insulin Glargine,Hum.rec.anlog [Lantus Solostar] 22 unit SQ HS 12/09/15 [History ] Acetaminophen/Butalbital/Caffe [Fioricet] 1 tab PO DAILY PRN 05/14/17 [History] Gabapentin [Neurontin] 100 mg PO HS 05/14/17 [History] Aspirin Enteric Coated [Aspirin EC] 81 mg PO DAILY 08/17/17 [History] Atorvastatin Calcium [Lipitor] 80 mg PO HS 08/17/17 [History] Nitroglycerin 0.4 mg SL Q5MIN PRN #14 tab.subl 08/22/17 [Rx] BuPROPion XL (24 HR) [Wellbutrin Xl] 150 mg PO DAILY 12/16/17 [History] Cyclobenzaprine HCl 5 mg PO HS 12/16/17 [History] Ezetimibe [Zetia] 10 mg PO DAILY 12/16/17 [History] Sertraline [Zoloft] 100 mg PO DAILY 12/16/17 [History] Topiramate [Topamax] 50 mg PO HS 12/16/17 [History] amLODIPine [Norvasc] 5 mg PO DAILY 12/16/17 [History] OxyCODONE/APAP 10/325 [Percocet 10/325 MG] 1 each PO Q6HR PRN 14 Days #56 tablet 01/08/18 [Rx] Metoprolol [Lopressor] 25 mg PO BID 02/25/18 [History] Multivit-Min/FA/Lycopen/Lutein [Adults 50+ Multivitamin Tablet] 1 tab PO DAILY 02/25/18 [History] Trazodone HCl 50 mg PO HS 02/25/18 [History] Lisinopril [Zestril] 10 mg PO BID 03/28/18 [History] Metformin HCl [Glucophage] 1,000 mg PO DAILY 03/28/18 [History] Omeprazole [PriLOSEC] 20 mg PO DAILY 03/28/18 [History] Tamsulosin HCl [Flomax] 0.4 mg PO DAILY 03/28/18 [History] Levothyroxine [Synthroid] 150 mcg PO DAILY 30 Days #30 tablet 03/30/18 [Rx] Fludrocortisone Acetate [Florinef] 0.1 mg PO DAILY #5 tablet 04/18/18 [Rx] Warfarin [Coumadin] 5 mg PO MOWEFR 05/08/18 [History] Warfarin [Coumadin] 7.5 mg PO SUTUTHSA 05/08/18 [History] 3 Allergy/AdvReac Type Severity Reaction Status Date / Time No Known Allergies Allergy Verified 05/11/18 14:35 All Systems: The remainder of the systems were reviewed and are negative Physical Examination - Vital Signs Vital Signs: Initial Vital Signs Temp Pulse Resp BP Pulse Ox 98.6 F 106 20 90/61 99 05/11/18 14:33 05/11/18 14:33 05/11/18 14:33 05/11/18 14:33 05/11/18 14:33 - Constitutional General appearance: comfortable - Neurologic Detailed motor examination: grossly full strength in all extremities Detailed sensory examination: intact Reflex and gait examination: intact Reflexes: Biceps: 1+, Triceps: 1+, Brachioradialis: 1+, Patella: 1+, Achilles: 1 + Mental Status Examination: awake, alert, oriented to person, oriented to place, follows commands appropriately, answers questions appropriately, makes eye contact, follows simple commands, localizes noxious stimulation Cranial nerve examination: PERRL, EOMI, visual layton intact, no facial asymmetry is present Cerebellar examination: no dysmetria (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 , has Tracheal collar ,able to have conversation) Results - Laboratory Findings CBC and BMP: 05/12/18 04:20 05/12/18 04:20 Abnormal lab findings: Abnormal lab results Hgb 10.6 g/dL (12.9-16.9) L D 05/12/18 04:20 Hct 35.0 % (37.5-50.1) L 05/12/18 04:20 MCH 25.3 pg (28.0-33.3) L 05/12/18 04:20 MCHC 30.3 g/dL (31.6-35.5) L 05/12/18 04:20 RDW 15.9 % (11.5-14.5) H 05/12/18 04:20 PT 17.2 Seconds (9.4-12.1) H 05/12/18 04:20 BUN 36 mg/dL (8-23) H 05/12/18 04:20 Creatinine 1.45 mg/dL (0.70-1.30) H 05/12/18 04:20 Est GFR ( Amer) 57 (> 60) L 05/12/18 04:20 Est GFR (Non-Af Amer) 47 (> 60) L 05/12/18 04:20 Glucose 140 mg/dL (70-105) H 05/12/18 04:20 POC Glucose 108 mg/dL (70-99) H 05/12/18 07:20 Calcium 8.4 mg/dL (8.6-10.3) L 05/12/18 04:20 Urine Clarity Cloudy (Clear) A 05/11/18 17:54 Urine Protein 30 mg/dL (Neg-Trace) H 05/11/18 17:54 Ur Leukocyte Esterase Large (Negative) H 05/11/18 17:54 Urine Microscopic RBC 5-15 per hpf (0-3) H 05/11/18 17:54 Urine Microscopic WBC TNTC per hpf (0-3) H 05/11/18 17:54 Ur Squamous Epith Cells Moderate per lpf (None-Few) H 05/11/18 17:54 Ur Culture Indicated? YES (NO) A 05/11/18 17:54 Consult Discharge Plan - Plan Referrals: Peter Carlson MD [Primary Care Provider] -
[2018-05-12] MEDS ORDERED: *HR* Warfarin 7.5 MG TABLET PO SCH (18:00)
[2018-05-12] MEDS: *HR* Warfarin 7.5 MG TABLET PO SCH (18:26)
[2018-05-12] MEDS: traZODone 50 MG TABLET PO SCH (20:31)
[2018-05-12] MEDS: cefTRIAXone 2,000 MG in Water for inj. (sterile) 20 ML 20 ML IVP SCH (20:32)
[2018-05-12] MEDS: Insulin DETEMIR 100 UNIT/ML X5UNITS SQ SCH (20:40)
[2018-05-13] MEDS: *HR* OxyCODONE/APAP 10/325 TABLET PO PRN (01:47)
[2018-05-13 05:19] LABS: Basophils % 0.3 %; Eosinophils # 0.3 K/mcL (0.0-0.6); Eosinophils % 3.5 %; Hematocrit 34.8 % (37.5-50.1); Hemoglobin 10.6 g/dL (12.9-16.9); Immature Granulocytes % 0.5 % (0-4); Lymphocytes % 11.6 %; Mean Corpuscular HGB Conc 30.5 g/dL (31.6-35.5); Mean Corpuscular Hemoglobin 25.5 pg (28.0-33.3); Mean Corpuscular Volume 83.9 fL (83.0-100.0); Mean Platelet Volume 9.6 fL (9.4-12.4); Monocytes # 0.8 K/mcL (0.0-1.3); Monocytes % 8.7 %; Neutrophils # 6.6 K/mcL (1.6-8.9); Platelet Count 279 K/mcL (140-400); Red Blood Count 4.15 M/mcL (4.19-5.50); Red Cell Distribution Width 15.5 % (11.5-14.5); Segmented Neutrophils % 75.4 %
[2018-05-13 05:42] LABS: BUN/Creatinine Ratio 29 (6-26); Blood Urea Nitrogen 23 mg/dL (8-23); Calcium 8.7 mg/dL (8.6-10.3); Carbon Dioxide 25 mEq/L (23-29); Chloride 107 mEq/L (98-107); Glucose 105 mg/dL (70-105); Osmolality,Calculated 286 (280-300); Potassium 4.7 mEq/L (3.5-5.1); Sodium 136 mEq/L (136-145); eGFR For Non-African Americans > 60 (> 60)
[2018-05-13] MEDS ORDERED: amLODIPine 5 MG TABLET PO SCH (09:00)
[2018-05-13] MEDS: (Ezetimibe [Zetia] 10 MG) PO SCH (09:22)
[2018-05-13] MEDS: Topiramate 25 MG TABLET PO SCH ×2 (09:29→19:44)
[2018-05-13] MEDS: Multivit/Ca/Min/Fe/FA 1 TAB TABLET PO SCH (09:29)
[2018-05-13] MEDS: Aspirin Enteric Coated 81 MG Tablet PO SCH (09:29)
[2018-05-13] MEDS: BuPROPion XL (24 HR) 150 MG TABLET PO SCH (09:29)
[2018-05-13] MEDS ORDERED: D5% in Water 1,000 ML IVC PRN (10:22)
[2018-05-13] MEDS ORDERED: Dextrose Gel 15 GM/37.5 ML TUBE PO PRN ×2 (10:22)
[2018-05-13] MEDS ORDERED: *HR* Dextrose 50 % in Water (Syg) 50 ML SYRINGE IVP PRN (10:22)
--- NOTE | 2018-05-13 10:49 | Cardiology Consult Note ---
<Yissel Cat - Last Filed: 05/13/18 10:40> Date of Encounter: 05/13/18 Time of Encounter: 09:00 Assessment and Plan (1) Episode of syncope Current Visit: Yes Status: Acute Patient denies loss of consciousness, reports "legs gave out." Presented with JAKE and UTI which is likely the etiology of symptoms. Also found to be tachycardiac and hypotension upon arrival. Neurology evaluated, felt may be secondary to convulsive seizures, vs. hypotension in the setting of known carotid disease. Known PAF on Coumadin. No evidence of AV block noted on telemetry review. TTE this admission shows preserved LVEF, 60% with mild MR, mild-moderate TR, mild PH. Recently evaluated by Cardiology as inpatient earlier this week in addition, for atypical chest pain. No further testing recommended. Cardiology will sign-off. Will coordinate outpatient follow-up. Qualifiers: Syncope type: unspecified Qualified Code(s): R55 - Syncope and collapse Discussion w patient/family: The assessment and plan as outlined above was discussed with the patient and/or family members who expressed understanding and agreement. All questions were answered. Thank you for involving us in the care of your patient. Please call with any questions. The patient will be discussed and reviewed with Dr. Lloyd; changes to be made accordingly. History of Present Illness Consult date: 05/13/18 Requesting physician: Charley Lin Consult reason: Syncope Chief complaint: Weakness History of present illness: Mr. Salmeron is a 78 year old male with PMHx significant of CAD s/p CABG, PCI, PAF (coumadin), HTN, HLD, GERD, BPH, DVT, PVD s/p fem-pop bypass, AAA s/p stenting, prior head/neck CA s/p tracheostomy, and CVA who presented to the ED with complaints of weakness and dizziness that contributed to fall. He denies loss of consciousness. Reports was walking when legs suddenly gave out. Denies any other symptoms leading up to event. Recent admission earlier this week for chest discomfort (MILE negative), was evaluated by Cardiology at that time as well and symptoms were felt to be atypical in presentation. Upon arrival to ED was found to have JAKE and UTI. Was also hypotensive. ECG demonstrated ST, no ischemic changes were noted. Past Med Surg Social Fam HX - Past Medical History Attestation: Yes The following information was validated with the patient. Source: patient Medical history: atrial fibrillation, cancer, coronary artery disease, CVA, diabetes, hypertension, myocardial infarction, peripheral artery disease, SVT, thyroid disease Additional medical history: nose cancer. trach Psychiatric history: no psych history - Past Surgical History Surgical History: angioplasty/stent, appendectomy, coronary bypass (CABG), herniorrhaphy, LE vascular intervention, tracheostomy Additional surgical history: BACK SURGERY, tracheostomy - Social History Smoking Status: Former smoker Smokeless Tobacco Status: No Alcohol use: none Drug use: none - Family History Mother Living Status: Hx Family Cardiac Disorders: No Hx Family Respiratory Disorders: No Hx Family Cancer: No Hx Family GI Disorders: No Hx Family Endocrine Disorder: No Hx Family Neuromuscular Disorders: No Hx Family Neurologic Disorders: No Hx Family HEENT Disorders: No Hx Family Autoimmune Disorders: No Father Living Status: Hx Family Cardiac Disorders: No Hx Family Respiratory Disorders: No Hx Family Cancer: No Hx Family GI Disorders: No Hx Family Endocrine Disorder: No Hx Family Neuromuscular Disorders: No Hx Family Neurologic Disorders: No Hx Family HEENT Disorders: No Hx Family Autoimmune Disorders: No Sister Living Status: Hx Family Cancer: Yes (lung cancer) Medications and Allergies Insulin Glargine,Hum.rec.anlog [Lantus Solostar] 22 unit SQ HS 12/09/15 [History ] Acetaminophen/Butalbital/Caffe [Fioricet] 1 tab PO DAILY PRN 05/14/17 [History] Gabapentin [Neurontin] 100 mg PO HS 05/14/17 [History] Aspirin Enteric Coated [Aspirin EC] 81 mg PO DAILY 08/17/17 [History] Atorvastatin Calcium [Lipitor] 80 mg PO HS 08/17/17 [History] Nitroglycerin 0.4 mg SL Q5MIN PRN #14 tab.subl 08/22/17 [Rx] BuPROPion XL (24 HR) [Wellbutrin Xl] 150 mg PO DAILY 12/16/17 [History] Cyclobenzaprine HCl 5 mg PO HS 12/16/17 [History] Ezetimibe [Zetia] 10 mg PO DAILY 12/16/17 [History] Sertraline [Zoloft] 100 mg PO DAILY 12/16/17 [History] Topiramate [Topamax] 50 mg PO HS 12/16/17 [History] amLODIPine [Norvasc] 5 mg PO DAILY 12/16/17 [History] OxyCODONE/APAP 10/325 [Percocet 10/325 MG] 1 each PO Q6HR PRN 14 Days #56 tablet 01/08/18 [Rx] Metoprolol [Lopressor] 25 mg PO BID 02/25/18 [History] Multivit-Min/FA/Lycopen/Lutein [Adults 50+ Multivitamin Tablet] 1 tab PO DAILY 02/25/18 [History] Trazodone HCl 50 mg PO HS 02/25/18 [History] Lisinopril [Zestril] 10 mg PO BID 03/28/18 [History] Metformin HCl [Glucophage] 1,000 mg PO DAILY 03/28/18 [History] Omeprazole [PriLOSEC] 20 mg PO DAILY 03/28/18 [History] Tamsulosin HCl [Flomax] 0.4 mg PO DAILY 03/28/18 [History] Levothyroxine [Synthroid] 150 mcg PO DAILY 30 Days #30 tablet 03/30/18 [Rx] Fludrocortisone Acetate [Florinef] 0.1 mg PO DAILY #5 tablet 04/18/18 [Rx] Warfarin [Coumadin] 5 mg PO MOWEFR 05/08/18 [History] Warfarin [Coumadin] 7.5 mg PO SUTUTHSA 05/08/18 [History] 3 Allergy/AdvReac Type Severity Reaction Status Date / Time No Known Allergies Allergy Verified 05/11/18 14:35 All Systems Review: The remainder of the systems were reviewed and are negative - Cardiovascular Cardiovascular: as per HPI Physical Examination Vital Signs, Last 4 Hours Temp Pulse Resp BP Pulse Ox 05/13/18 08:18 97.8 F 105 18 128/75 90 General: Conversant HEENT: Atraumatic, Normocephaly Neck: Other (tracheostomy) Cardiac: Reg Rate and Rhythm, Normal S1 and S2 Lungs: Normal Breath Sounds Neuro: Alert and responsive Abdomen: Soft Skin: No rashes noted on visualized skin Musculoskeletal: No Chest Wall Tenderness Extremities: No Edema, Normal Pulses Results 05/13/18 04:57 05/13/18 04:57 Lab Results 05/12/18 05/12/18 05/13/18 10:11 16:15 04:57 WBC 8.7 Hgb 10.6 L Hct 34.8 L Plt Count 279 Sodium Potassium Chloride Carbon Dioxide BUN Creatinine Glucose Calcium Troponin I < 0.03 0.03 05/13/18 04:57 WBC Hgb Hct Plt Count Sodium 136 Potassium 4.7 Chloride 107 Carbon Dioxide 25 BUN 23 Creatinine 0.80 Glucose 105 Calcium 8.7 Troponin I Active Medications Acetaminophen (Tylenol) 650 mg PO Q6HR PRN PRN Reason: Pain Stop: 11/11/18 14:58 Aspirin (Aspirin Ec) 81 mg PO DAILY [facility] Stop: 11/11/18 09:01 Last Admin: 05/13/18 09:29 Dose: 81 mg Atorvastatin Calcium (Lipitor) 80 mg PO HS [facility] Stop: 11/10/18 21:01 Last Admin: 05/12/18 20:31 Dose: 80 mg Bupropion HCl (Wellbutrin Xl) 150 mg PO DAILY [facility] Stop: 11/11/18 09:01 Last Admin: 05/13/18 09:29 Dose: 150 mg Dextrose/Water (Dextrose 50% (Syg)) 25 ml IVP AD PRN PRN Reason: Hypoglycemia Stop: 11/12/18 10:23 Glucagon (Glucagen) 1 mg IM ONCE PRN PRN Reason: Hypoglycemia Stop: 11/12/18 10:23 Glucose (Gluctose) 15 gm PO ONCE PRN PRN Reason: Hypoglycemia Stop: 11/12/18 10:23 Glucose (Gluctose) 30 gm PO ONCE PRN PRN Reason: Hypoglycemia Stop: 11/12/18 10:23 Ceftriaxone Sodium 2,000 mg/ (Sterile Water) 20 mls @ 600 mls/hr IVP Q24H [facility] Stop: 11/11/18 21:01 Last Infusion: 05/12/18 20:33 Dose: Infused Dextrose (Dextrose 5%) 1,000 mls @ 100 mls/hr IVC .Q10H PRN PRN Reason: HYPOGLYCEMIA Stop: 11/12/18 10:23 Insulin Detemir (Levemir) 22 unit SQ HS [facility] Stop: 11/10/18 21:01 Last Admin: 05/12/18 20:40 Dose: 22 unit Insulin Human Lispro (Humalog) 0 units SQ TIDAC [facility] PRN Reason: Protocol Stop: 11/12/18 11:31 Insulin Human Lispro (Humalog) 0 units SQ HS [facility] PRN Reason: Protocol Stop: 11/12/18 21:01 Levothyroxine Sodium (Synthroid) 150 mcg PO 0630 [facility] Stop: 11/11/18 06:31 Last Admin: 05/13/18 06:08 Dose: 150 mcg Metoprolol Tartrate (Lopressor) 25 mg PO BID [facility] Stop: 11/11/18 21:01 Last Admin: 05/13/18 09:29 Dose: 25 mg Multivitamins/Calcium (Thera M Plus) 1 tab PO DAILY [facility] Stop: 11/11/18 09:01 Last Admin: 05/13/18 09:29 Dose: 1 tab Nitroglycerin (Nitroglycerin) 0.4 mg SL Q5MIN PRN PRN Reason: Chest Pain Stop: 11/11/18 09:34 Omeprazole (Prilosec) 20 mg PO 0630 [facility] PRN Reason: Protocol Stop: 11/11/18 06:31 Last Admin: 05/13/18 06:08 Dose: 20 mg Oxycodone/Acetaminophen (Percocet 10/325) 1 each PO Q6HR PRN PRN Reason: Pain Stop: 11/11/18 15:28 Last Admin: 05/13/18 01:47 Dose: 1 each Pharmacy Profile Note (Patient Taking Own Medication) 10 each PO DAILY [facility] Stop: 11/12/18 09:01 Last Admin: 05/13/18 09:22 Dose: Not Given Sertraline HCl (Zoloft) 100 mg PO DAILY [facility] Stop: 11/11/18 09:01 Last Admin: 05/13/18 09:29 Dose: 100 mg Tamsulosin HCl (Flomax) 0.4 mg PO [facility] PRN Reason: Protocol Stop: 11/11/18 21:01 Last Admin: 05/12/18 20:31 Dose: 0.4 mg Topiramate (Topamax) 50 mg PO BID [facility] Stop: 11/11/18 09:01 Last Admin: 05/13/18 09:29 Dose: 50 mg Trazodone HCl (Trazodone) 50 mg PO [facility] Stop: 11/10/18 21:01 Last Admin: 05/12/18 20:31 Dose: 50 mg Warfarin Sodium (Coumadin) 7.5 mg PO DAILY@1800 [facility] Stop: 11/11/18 18:01 Last Admin: 07/28/18 18:26 Dose: 7.5 mg - Imaging and Cardiology Echo: report reviewed Other Results: 12 hour tele: avg HR=92. - EKG Interpretation EKG results cardiology: personally reviewed Consult Discharge Plan - Plan Referrals: Peter Carlson MD [Primary Care Provider] - <Priya Lloyd - Last Filed: 05/13/18 11:53> Date of Encounter: 05/13/18 - Attending Attestation I examined this patient and my medical decision-making was reviewed with the EYELET OPERATOR. I agree with the documented findings, disposition and treatment plan as described. Mr. Salmeron presents to [place] with concern for syncope. However, the patient denied loss of consciousness to our cardiology team. He describes a feeling of his legs giving out. Workup thus far has demonstrated ARF, UTI, dehydration and hypotension on admission which could certainly explain his presentation. Hgb has slightly declined - will defer to primary team for workup. Admitting ECG demonstrated sinus tachycardia HR 105 bpm without acute changes. Telemetry demonstrates no concerning pauses or dysrhythmia, average HR 90's. Known PAF on coumadin. Echo demonstrates normal LV systolic function. Neurologic evaluation pending. No further cardiac testing appears warranted at this time. Will restart his BB but his other antihypertensives (amlodipine, lisinopril) can be held until follow up as outpatient. Will sign off. Please call with questions. Assessment and Plan Discussion w patient/family: The assessment and plan as outlined above was discussed with the patient and/or family members who expressed understanding and agreement. All questions were answered. Thank you for involving us in the care of your patient. Please call with any questions. History of Present Illness History of present illness: Mr. Salmeron is a 78 year old male All Systems Review: The remainder of the systems were reviewed and are negative Physical Examination Vital Signs, Last 4 Hours Temp Pulse Resp BP Pulse Ox 05/13/18 08:18 97.8 F 105 18 128/75 90 Results 05/13/18 04:57 05/13/18 04:57 Lab Results 05/12/18 05/13/18 05/13/18 16:15 04:57 04:57 WBC 8.7 Hgb 10.6 L Hct 34.8 L Plt Count 279 Sodium 136 Potassium 4.7 Chloride 107 Carbon Dioxide 25 BUN 23 Creatinine 0.80 Glucose 105 Calcium 8.7 Troponin I 0.03
[2018-05-13] MEDS: Insulin LISPRO 300 UNITS/3 ML VIAL SQ SCH ×3 (11:34→21:48)
[2018-05-13] MEDS ORDERED: Ondansetron 4 MG/2 ML VIAL IVP PRN (15:15)
--- NOTE | 2018-05-13 15:18 | Internal Med Progress Note ---
Date of Encounter: 05/13/18 Time of Encounter: 15:16 - Assessment and plan (1) Episode of syncope Current Visit: Yes Status: Acute Assessment and plan: Multifactorial. Neurologists consulted and felt may be secondary to common was just seizures versus hypertensin in the setting of known carotid disease. MRI brain is scheduled for tomorrow with a special machine as patient has some metal piece in face. Carotid ultrasound ordered still awaited the report. CT head with no acute finding. Echocardiogram revealed with no acute finding. Neurologist on board. Orthostatic negative. Metal Casket Assembler was also consulted and no further recommendation and signed off. Still subtherapeutic INR. Monitor INR with raised warfarin dose 7.5 mg daily Qualifiers: Syncope type: unspecified Qualified Code(s): R55 - Syncope and collapse (2) JAKE (acute kidney injury) Current Visit: No Status: Resolved Assessment and plan: Normal creatinine level. most likely prerenal or sepsis related secondary to UTI. Gentle hydration with a strict I&O's. Renal ultrasound revealed with bladder debris is in mild distention. Consulted urologists advise no further recommendation except following the urine culture and treat accordingly. follow bmp in the AM avoid nephrotoxic drugs (3) UTI (urinary tract infection) Current Visit: No Status: Acute Assessment and plan: Urine culture with enterococcus but final sensitivity report awaited. Continue Rocephin for now. Qualifiers: Urinary tract infection type: acute cystitis Hematuria presence: without hematuria Qualified Code(s): N30.00 - Acute cystitis without hematuria (4) Atrial fibrillation Current Visit: No Status: Chronic Assessment and plan: No RVR. started metoprolol. Increase dose of Coumadin 7.5 mg daily due to subtherapeutic INR. Pharmacy consultation for INR monitoring Qualifiers: Atrial fibrillation type: paroxysmal Qualified Code(s): I48.0 - Paroxysmal atrial fibrillation (5) Hyperkalemia Current Visit: Yes Status: Acute Assessment and plan: Normal potassium level. Continue to monitor. was treated with calcium gluconate and one dose of kayaxelate follow BMP in the morning (6) Sepsis Current Visit: Yes Status: Acute Assessment and plan: Questionable. Initial lactic acid negative. Urine culture positive and treating with antibiotic. Final Blood and urine culture report awaited. Qualifiers: Sepsis type: sepsis due to unspecified organism Qualified Code(s): A41.9 - Sepsis, unspecified organism (7) DVT prophylaxis Current Visit: No Status: Acute Assessment and plan: on coumadin folllow INR - Time Spent With Patient Total time spent is greater than 50% in coordination of care (as documented) at patient's floor/unit and/or counseling patient: 25 - 35 minutes - Subjective Interval history: Patient complained of nausea but no vomiting, abdominal pain. His unsteady gait is slightly better and he walked to the bathroom today. Review the lab with normal white count and normal creatinine level. Urine culture positive for enterococcus but no further sensitivity report available. Still subtherapeutic INR. Blood culture with no growth - Constitutional Vitals: Temp Pulse Resp BP Pulse Ox 98.5 F 95 18 132/78 95 05/13/18 11:58 05/13/18 11:58 05/13/18 11:58 05/13/18 11:58 05/13/18 11:58 Exam: General appearance: No acute distress, A&O X 3 Head exam: Atraumatic Eye exam: EOMI, PERRLA ENT exam: Moist oral mucosa. Chronic trach Neck nontender, supple Respiratory exam: Clear to auscultation bilaterally Cardiovascular exam: Regular rate and rhythm, no systolic murmur Abdominal exam: Soft, nontender, nondistended, positive bowel sounds Extremities exam: No calf tenderness, no pedal edema Present: Skin-no rash, warm, dry, intact Neurological exam: Alert, awake, oriented 3, CN II-XII intact, no focal deficits. No facial droop. Normal speech. Romberg sign equivocal Internal Medicine: Result - Labs CBC & Chem 7: 05/13/18 04:57 05/13/18 04:57 Labs: Short CBC 05/13/18 Range/Units 04:57 WBC 8.7 (4.3-11.1) K/mcL Hgb 10.6 L (12.9-16.9) g/dL Hct 34.8 L (37.5-50.1) % Plt Count 279 (140-400) K/mcL Neutrophils # 6.6 (1.6-8.9) K/mcL BMP 05/13/18 04:57 Sodium 136 Potassium 4.7 Chloride 107 Carbon Dioxide 25 BUN 23 Creatinine 0.80 Glucose 105 Calcium 8.7 Cardiac Enzymes 05/12/18 Range/Units 16:15 Troponin I 0.03 (< 0.04) ng/mL - ABG Interpretation ABG results: PT/INR, D-dimer PT 17.2 Seconds (9.4-12.1) H 05/12/18 04:20 Consult Discharge Plan - Plan Referrals: Peter Carlson MD [Primary Care Provider] -
[2018-05-13 18:52] LABS: INR 2.1; Prothrombin Time 23.2 Seconds (9.4-12.1)
[2018-05-13] MEDS: traZODone 50 MG TABLET PO SCH (19:44)
[2018-05-13] MEDS: cefTRIAXone 2,000 MG in Water for inj. (sterile) 20 ML 20 ML IVP SCH (19:47)
[2018-05-13] MEDS: *HR* Warfarin 7.5 MG TABLET PO SCH (20:22)
[2018-05-13] MEDS: Insulin DETEMIR 100 UNIT/ML X5UNITS SQ SCH (21:48)
[2018-05-14 05:34] LABS: INR 2.3; Prothrombin Time 26.4 Seconds (9.4-12.1)
[2018-05-14] MEDS ORDERED: Warfarin perPT PO PRN (07:20)
[2018-05-14] MEDS: Insulin LISPRO 300 UNITS/3 ML VIAL SQ SCH ×4 (07:24→21:16)
[2018-05-14] MEDS: Multivit/Ca/Min/Fe/FA 1 TAB TABLET PO SCH (08:02)
[2018-05-14] MEDS: Aspirin Enteric Coated 81 MG Tablet PO SCH (08:02)
[2018-05-14] MEDS: BuPROPion XL (24 HR) 150 MG TABLET PO SCH (08:02)
[2018-05-14] MEDS: (Ezetimibe [Zetia] 10 MG) PO SCH (08:02)
[2018-05-14] MEDS: Topiramate 25 MG TABLET PO SCH ×2 (08:02→20:17)
[2018-05-14] MEDS ORDERED: Acetaminophen 325 MG TABLET PO PRN (08:11)
--- NOTE | 2018-05-14 09:17 | Internal Med Progress Note ---
Date of Encounter: 05/14/18 Time of Encounter: 09:14 - Assessment and plan (1) Episode of syncope Current Visit: Yes Status: Acute Assessment and plan: Multifactorial. Neurologists consulted and felt may be secondary to convulsive seizures versus hypotensin in the setting of known carotid disease. MRI brain is scheduled for today with a special machine as patient has some metal piece in face. Carotid ultrasound ordered still awaited the report. CT head with no acute finding. Echocardiogram revealed with no acute finding. Neurologist on board. Orthostatic negative. Dial Buffer was also consulted and no further recommendation and signed off. Therapeutic INR. Pharmacy consultation for Coumadin management. Qualifiers: Syncope type: unspecified Qualified Code(s): R55 - Syncope and collapse (2) JAKE (acute kidney injury) Current Visit: No Status: Resolved Assessment and plan: Normal creatinine level. most likely prerenal or sepsis related secondary to UTI. Gentle hydration with a strict I&O's. Renal ultrasound revealed with bladder debris is in mild distention. Consulted urologists advise no further recommendation except following the urine culture and treat accordingly. follow bmp. avoid nephrotoxic drugs (3) UTI (urinary tract infection) Current Visit: No Status: Acute Assessment and plan: Urine culture with enterococcus but final sensitivity report awaited. Continue Rocephin for now. Qualifiers: Urinary tract infection type: acute cystitis Hematuria presence: without hematuria Qualified Code(s): N30.00 - Acute cystitis without hematuria (4) Atrial fibrillation Current Visit: No Status: Chronic Assessment and plan: No RVR. started metoprolol. Continue Coumadin. Pharmacy consultation for INR monitoring Qualifiers: Atrial fibrillation type: paroxysmal Qualified Code(s): I48.0 - Paroxysmal atrial fibrillation (5) Hyperkalemia Current Visit: Yes Status: Acute Assessment and plan: Normal potassium level (6) Sepsis Current Visit: Yes Status: Acute Assessment and plan: Questionable. Initial lactic acid negative. Urine culture positive and treating with antibiotic. Final Blood and urine culture report awaited. Qualifiers: Sepsis type: sepsis due to unspecified organism Qualified Code(s): A41.9 - Sepsis, unspecified organism (7) DVT prophylaxis Current Visit: No Status: Acute Assessment and plan: Coumadin - Time Spent With Patient 25 - 35 minutes - Subjective Interval history: better nausea and denies vomiting, abdominal pain. His unsteady gait is also better but not to baseline yet. Review the lab with normal white count and normal creatinine level. Urine culture positive for enterococcus but no further sensitivity report available. Therapeutic INR. Blood culture with no growth - Constitutional Vitals: Temp Pulse Resp BP Pulse Ox 97.7 F 68 17 170/69 91 05/14/18 07:00 05/14/18 07:00 05/14/18 07:00 05/14/18 07:00 05/14/18 07:00 Exam: General appearance: No acute distress, A&O X 3 Head exam: Atraumatic Eye exam: EOMI, PERRLA ENT exam: Moist oral mucosa. Chronic trach Neck nontender, supple Respiratory exam: Clear to auscultation bilaterally Cardiovascular exam: Regular rate and rhythm, no systolic murmur Abdominal exam: Soft, nontender, nondistended, positive bowel sounds Extremities exam: No calf tenderness, no pedal edema Present: Skin-no rash, warm, dry, intact Neurological exam: Alert, awake, oriented 3, CN II-XII intact, no focal deficits. No facial droop. Normal speech. Romberg sign equivocal Internal Medicine: Result - Labs CBC & Chem 7: 05/13/18 04:57 05/13/18 04:57 - ABG Interpretation ABG results: PT/INR, D-dimer PT 26.4 Seconds (9.4-12.1) H 05/14/18 05:03 - VTE Documentation of Mechanical Device: Intermittent pneumatic compression device Consult Discharge Plan - Plan Referrals: Peter Carlson MD [Primary Care Provider] -
[2018-05-14] MEDS: Ampicillin 2 GM in 0.9 % Sodium Chloride Mini Bag 100 ML IVPB SCH ×2 (11:23→16:44)
--- NOTE | 2018-05-14 11:44 | Neurology Progress Note ---
Date of Encounter: 05/14/18 Time of Encounter: 07:30 Assessment and Plan (1) Bilateral stenosis of carotid arteries greater than 50% Current Visit: Yes Status: Acute Patient noted to have 60-79% bilateral severe carotid stenosis. Perhaps could be the reason for his syncopal considering bilateral critical stenosis. It can cause some time convulsive syncope. Suggest to increase the fluid intake continue on antiplatelet therapy along with statin. Probably would benefit from vascular surgery consultation would also need CT angiogram to confirm the stenosis. Other treatment is as per primary team (2) Spell of altered consciousness Current Visit: Yes Status: Acute (3) History of carotid artery stenosis Current Visit: Yes Status: Acute Subjective Interval history: Clinically patient is stable he did not have any other further symptoms laying down comfortably no headaches no dizziness no syncopal episodes no seizure-like of activity Objective - Constitutional Vitals: Temp Pulse Resp BP Pulse Ox 98.1 F 57 18 155/96 95 05/14/18 10:54 05/14/18 10:54 05/14/18 10:54 05/14/18 10:54 05/14/18 10:54 - Neurological Exam Motor Examination: Present: grossly full strength in all extremities Sensation intact: Present: intact Reflex and gait examination: intact Mental Status Examination: Present: awake, alert, oriented to person, oriented to place, follows commands appropriately, answers questions appropriately, makes eye contact, follows simple commands, localizes noxious stimulation Cranial nerve examination: Present: PERRL, EOMI, visual layton intact, no facial asymmetry is present Cerebellar examination: Present: no dysmetria (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 , has Tracheal collar ,able to have conversation) - VTE Documentation of Mechanical Device: Intermittent pneumatic compression device Results - Laboratory Findings CBC and BMP: 05/13/18 04:57 05/13/18 04:57 Abnormal lab findings: Abnormal lab results RBC 4.15 M/mcL (4.19-5.50) L 05/13/18 04:57 Hgb 10.6 g/dL (12.9-16.9) L 05/13/18 04:57 Hct 34.8 % (37.5-50.1) L 05/13/18 04:57 MCH 25.5 pg (28.0-33.3) L 05/13/18 04:57 MCHC 30.5 g/dL (31.6-35.5) L 05/13/18 04:57 RDW 15.5 % (11.5-14.5) H 05/13/18 04:57 PT 26.4 Seconds (9.4-12.1) H 05/14/18 05:03 BUN/Creatinine Ratio 29 (6-26) H 05/13/18 04:57 Urine Clarity Cloudy (Clear) A 05/11/18 17:54 Urine Protein 30 mg/dL (Neg-Trace) H 05/11/18 17:54 Ur Leukocyte Esterase Large (Negative) H 05/11/18 17:54 Urine Microscopic RBC 5-15 per hpf (0-3) H 05/11/18 17:54 Urine Microscopic WBC TNTC per hpf (0-3) H 05/11/18 17:54 Ur Squamous Epith Cells Moderate per lpf (None-Few) H 05/11/18 17:54 Ur Culture Indicated? YES (NO) A 05/11/18 17:54 - Diagnostic Findings Additional findings: Carotid duplex shows bilateral 60-79% stenosis Consult Discharge Plan - Plan Referrals: Peter Carlson MD [Primary Care Provider] -
[2018-05-14] MEDS: *HR* OxyCODONE/APAP 10/325 TABLET PO PRN (16:35)
--- NOTE | 2018-05-14 17:48 | Electrocardiograph Report ---
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
[2018-05-14] MEDS ORDERED: *HR* Warfarin 1 MG TABLET PO ONE ×2 (18:00)
[2018-05-14] MEDS: traZODone 50 MG TABLET PO SCH (20:17)
[2018-05-14] MEDS ORDERED: Insulin DETEMIR 100 UNIT/ML X5UNITS SQ SCH (21:00)
[2018-05-15] MEDS: Ampicillin 2 GM in 0.9 % Sodium Chloride Mini Bag 100 ML IVPB SCH ×4 (00:30→17:33)
[2018-05-15 04:58] LABS: Basophils % 0.4 %; Eosinophils # 0.2 K/mcL (0.0-0.6); Eosinophils % 3.1 %; Hematocrit 35.8 % (37.5-50.1); Hemoglobin 11.2 g/dL (12.9-16.9); Immature Granulocytes % 0.5 % (0-4); Lymphocytes # 1.1 K/mcL (0.6-4.6); Lymphocytes % 14.2 %; Mean Corpuscular HGB Conc 31.3 g/dL (31.6-35.5); Mean Corpuscular Hemoglobin 25.9 pg (28.0-33.3); Mean Corpuscular Volume 82.7 fL (83.0-100.0); Mean Platelet Volume 9.6 fL (9.4-12.4); Monocytes # 0.7 K/mcL (0.0-1.3); Monocytes % 8.3 %; Neutrophils # 5.7 K/mcL (1.6-8.9); Platelet Count 286 K/mcL (140-400); Red Blood Count 4.33 M/mcL (4.19-5.50); Red Cell Distribution Width 15.5 % (11.5-14.5); Segmented Neutrophils % 73.5 %
[2018-05-15 05:04] LABS: INR 3.1; Prothrombin Time 34.8 Seconds (9.4-12.1)
[2018-05-15 05:19] LABS: BUN/Creatinine Ratio 27 (6-26); Blood Urea Nitrogen 21 mg/dL (8-23); Carbon Dioxide 24 mEq/L (23-29); Chloride 105 mEq/L (98-107); Glucose 111 mg/dL (70-105); Osmolality,Calculated 284 (280-300); Potassium 4.1 mEq/L (3.5-5.1); Sodium 135 mEq/L (136-145); eGFR For Non-African Americans > 60 (> 60)
[2018-05-15] MEDS ORDERED: Isovue-370 500 ML INFUS..BTL IV ONE (07:11)
[2018-05-15] MEDS: Insulin LISPRO 300 UNITS/3 ML VIAL SQ SCH ×3 (07:40→16:23)
[2018-05-15] MEDS: Topiramate 25 MG TABLET PO SCH ×2 (09:33→20:51)
[2018-05-15] MEDS: BuPROPion XL (24 HR) 150 MG TABLET PO SCH (09:33)
[2018-05-15] MEDS: Multivit/Ca/Min/Fe/FA 1 TAB TABLET PO SCH (09:33)
[2018-05-15] MEDS: Aspirin Enteric Coated 81 MG Tablet PO SCH (09:34)
--- NOTE | 2018-05-15 09:39 | Neurology Progress Note ---
Date of Encounter: 05/15/18 Time of Encounter: 07:25 Assessment and Plan (1) Bilateral stenosis of carotid arteries greater than 50% Current Visit: Yes Status: Acute Patient noted to have 60-79% bilateral severe carotid stenosis. Perhaps could be the reason for his syncopal considering bilateral critical stenosis. It can cause some time convulsive syncope. Suggest to increase the fluid intake continue on antiplatelet therapy along with statin. He is already on Coumadin with therapeutic INR Probably would benefit from vascular surgery consultation would also need CT angiogram to confirm the stenosis. No clinical evidence of stroke on examination considering not able to get an MRI negative CT scan at the moment I do not think that he would require MRI of the brain From neurology point patient is a stable it could be discharged to home with follow-up with vascular surgery Other treatment is as per primary team (2) Spell of altered consciousness Current Visit: Yes Status: Acute (3) History of carotid artery stenosis Current Visit: Yes Status: Acute Subjective Interval history: Clinically patient is stable he did not have any other further symptoms laying down comfortably no headaches no dizziness no syncopal episodes no seizure-like of activity Initially MRI of the brain was ordered but not able to do because of some mental in the face So it was canceled. He did have a CT scan of the head that was negative. Patient has history of carotid stenosis see had a repeat carotid duplex shows bilateral 60-79% severe stenosis. Objective - Constitutional Vitals: Temp Pulse Resp BP Pulse Ox 98.5 F 55 16 156/75 90 05/15/18 06:50 05/15/18 06:50 05/15/18 06:50 05/15/18 06:50 05/15/18 06:50 - Neurological Exam Motor Examination: Present: grossly full strength in all extremities Sensation intact: Present: intact Reflex and gait examination: intact Mental Status Examination: Present: awake, alert, oriented to person, oriented to place, follows commands appropriately, answers questions appropriately, makes eye contact, follows simple commands, localizes noxious stimulation Cranial nerve examination: Present: PERRL, EOMI, visual layton intact, no facial asymmetry is present Cerebellar examination: Present: no dysmetria (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 , has Tracheal collar ,able to have conversation) - VTE Documentation of Mechanical Device: Intermittent pneumatic compression device Results - Laboratory Findings CBC and BMP: 05/15/18 04:38 05/15/18 04:38 Abnormal lab findings: Abnormal lab results Hgb 11.2 g/dL (12.9-16.9) L 05/15/18 04:38 Hct 35.8 % (37.5-50.1) L 05/15/18 04:38 MCV 82.7 fL (83.0-100.0) L 05/15/18 04:38 MCH 25.9 pg (28.0-33.3) L 05/15/18 04:38 MCHC 31.3 g/dL (31.6-35.5) L 05/15/18 04:38 RDW 15.5 % (11.5-14.5) H 05/15/18 04:38 PT 34.8 Seconds (9.4-12.1) H 05/15/18 04:38 Sodium 135 mEq/L (136-145) L 05/15/18 04:38 BUN/Creatinine Ratio 27 (6-26) H 05/15/18 04:38 Glucose 111 mg/dL (70-105) H 05/15/18 04:38 POC Glucose 143 mg/dL (70-99) H 05/14/18 16:03 Urine Clarity Cloudy (Clear) A 05/11/18 17:54 Urine Protein 30 mg/dL (Neg-Trace) H 05/11/18 17:54 Ur Leukocyte Esterase Large (Negative) H 05/11/18 17:54 Urine Microscopic RBC 5-15 per hpf (0-3) H 05/11/18 17:54 Urine Microscopic WBC TNTC per hpf (0-3) H 05/11/18 17:54 Ur Squamous Epith Cells Moderate per lpf (None-Few) H 05/11/18 17:54 Ur Culture Indicated? YES (NO) A 05/11/18 17:54 Consult Discharge Plan - Plan Referrals: Peter Carlson MD [Primary Care Provider] -
--- NOTE | 2018-05-15 09:59 | Internal Med Progress Note ---
Hospitalist Progress Note - Encounter Date of Encounter: 05/15/18 Time of Encounter: 09:57 - Subjective Interval History: denies fever or chills nausea vomiting, abdominal pain. Slight better in on a steady gait but is still probably. MRI brain was put on hold by neurologist. Carotid ultrasound with severe restenosis bilateral. Review the lab with normal white count and normal creatinine level. Urine culture positive for enterococcus and sensitive to ampicillin. Therapeutic INR. Pharmacy consultation for Coumadin management. Blood culture with no growth - Exam Vitals: Temp Pulse Resp BP Pulse Ox 98.5 F 55 16 156/75 90 05/15/18 06:50 05/15/18 06:50 05/15/18 06:50 05/15/18 06:50 05/15/18 09:30 Exam: General appearance: No acute distress, A&O X 3 Head exam: Atraumatic Eye exam: EOMI, PERRLA ENT exam: Moist oral mucosa. Chronic trach Neck nontender, supple Respiratory exam: Clear to auscultation bilaterally Cardiovascular exam: Regular rate and rhythm, no systolic murmur Abdominal exam: Soft, nontender, nondistended, positive bowel sounds Extremities exam: No calf tenderness, no pedal edema Present: Skin- warm, dry, intact Neurological exam: Alert, awake, oriented 3, CN II-XII intact, no focal deficits. No facial droop. Normal speech. Romberg sign equivocal - Assessment and Plan (1) Episode of syncope Current Visit: Yes Status: Acute Assessment and Plan: Multifactorial. Neurologists consulted and felt may be secondary to convulsive seizures versus hypotensin in the setting of known carotid disease. MRI brain was consulted by neurologist as he thinks it is more related with severe carotid stenosis based on carotid ultrasound report. CT angiogram of neck ordered. Also consulted vascular surgeon. PT OT consulted. CT head with no acute finding. Echocardiogram revealed with no acute finding. Neurologist on board. Orthostatic negative. Textiles And Clothing Teacher was also consulted and no further recommendation and signed off. Therapeutic INR. Pharmacy consultation for Coumadin management. (2) JAKE (acute kidney injury) Current Visit: No Status: Resolved Assessment and Plan: Normal creatinine level. most likely prerenal or sepsis related secondary to UTI. Gentle hydration with a strict I&O's. Renal ultrasound revealed with bladder debris is in mild distention. Consulted urologists advise no further recommendation except following the urine culture and treat accordingly. follow bmp in the AM avoid nephrotoxic drugs (3) UTI (urinary tract infection) Current Visit: No Status: Acute Assessment and Plan: Urine culture with enterococcus and sensitivities to ampicillin therefore started. Plan to discharge patient on amoxicillin oral. (4) Atrial fibrillation Current Visit: No Status: Chronic Assessment and Plan: No RVR. started metoprolol. Increased dose of Coumadin 7.5 mg daily due to subtherapeutic INR initially but now resumed to home dose. Pharmacy consultation for INR monitoring (5) Hyperkalemia Current Visit: Yes Status: Acute Assessment and Plan: Normal potassium level. Continue to monitor. was treated with calcium gluconate and one dose of kayaxelate follow BMP in the morning (6) Sepsis Current Visit: Yes Status: Acute Assessment and Plan: Questionable. Initial lactic acid negative. Urine culture positive and treating with antibiotic. Blood culture with no growth. (7) DVT prophylaxis Current Visit: No Status: Acute Assessment and Plan: on coumadin folllow INR - Time Spent with Patient Total time spent is greater than 50% in coordination of care (as documented) at patient's floor/unit and/or counseling patient: 25 - 35 minutes Internal Medicine: Result - Labs CBC & Chem 7: 05/15/18 04:38 05/15/18 04:38 Labs: Short CBC 05/15/18 Range/Units 04:38 WBC 7.8 (4.3-11.1) K/mcL Hgb 11.2 L (12.9-16.9) g/dL Hct 35.8 L (37.5-50.1) % Plt Count 286 (140-400) K/mcL Neutrophils # 5.7 (1.6-8.9) K/mcL BMP 05/15/18 04:38 Sodium 135 L Potassium 4.1 Chloride 105 Carbon Dioxide 24 BUN 21 Creatinine 0.77 Glucose 111 H Calcium 9.0 - ABG Interpretation ABG results: PT/INR, D-dimer PT 34.8 Seconds (9.4-12.1) H 05/15/18 04:38 - VTE Documentation of Mechanical Device: Intermittent pneumatic compression device Consult Discharge Plan - Plan Referrals: Peter Carlson MD [Primary Care Provider] - (1) Episode of syncope Qualifiers: Syncope type: unspecified Qualified Code(s): R55 - Syncope and collapse (3) UTI (urinary tract infection) Qualifiers: Urinary tract infection type: acute cystitis Hematuria presence: without hematuria Qualified Code(s): N30.00 - Acute cystitis without hematuria (4) Atrial fibrillation Qualifiers: Atrial fibrillation type: paroxysmal Qualified Code(s): I48.0 - Paroxysmal atrial fibrillation (6) Sepsis Qualifiers: Sepsis type: sepsis due to unspecified organism Qualified Code(s): A41.9 - Sepsis, unspecified organism
[2018-05-15] MEDS: *HR* OxyCODONE/APAP 10/325 TABLET PO PRN (14:46)
[2018-05-15] MEDS ORDERED: *HR* Warfarin 1 MG TABLET PO ONE (18:00)
--- NOTE | 2018-05-15 19:05 | Vascular/Endovasc Consult Note ---
Date of Encounter: 05/15/18 Time of Encounter: 17:30 Assessment and Plan (1) Bilateral stenosis of carotid arteries greater than 50% Status: Chronic The patient is a history of bilateral 60-79% internal carotid artery stenosis. He presented to the emergency room with a syncopal episode of seizure-like activity prior to arrival. He denies any hemispheric deficits. His exam reveals no hemispheric deficits. At this time a CT angiogram of the neck is recommended to further evaluate his carotid arteries. Given his tracheostomy is not a good candidate for carotid endarterectomy. If intervention is required the patient will likely require a carotid stent. (2) Atrial fibrillation Status: Chronic Continue anticoagulation. Qualifiers: Atrial fibrillation type: paroxysmal Qualified Code(s): I48.0 - Paroxysmal atrial fibrillation (3) CAD (coronary artery disease) Status: Chronic Troponin is negative. The patient denies any chest pain or shortness of breath. Qualifiers: Coronary Disease-Associated Artery/Lesion type: bypass graft [place] vs. transplanted heart: [place] heart Associated angina: with stable angina Qualified Code(s): I25.708 - Atherosclerosis of coronary artery bypass graft(s) , unspecified, with other forms of angina pectoris (4) Diabetes Status: Chronic The patient was counseled regarding atherosclerotic risk factor reduction. 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 Salmeron is a 78 year old male with a history of coronary artery disease, atrial fibrillation, throat cancer, diabetes, hypertension, peripheral vascular disease, abdominal aortic aneurysm and hypertension. The patient presented with an episode of chest pain and altered mental status while at home. The patient's reports that he became unresponsive with the involuntary movement. He was transported via emergency medical services. On arrival his symptoms have resolved. He had no further symptoms since admission. His evaluation he underwent a carotid duplex. The duplex was abnormal so vascular surgery was counsulted for further evaluation. Patient denies any classic symptoms of she will vascular accident, transient ischemic attack or amaurosis fugax. He denies any chest pain or shortness of breath. Past Med Surg Social Fam HX - Past Medical History Medical history: atrial fibrillation, cancer, coronary artery disease, CVA, diabetes, hypertension, myocardial infarction, peripheral artery disease, SVT, thyroid disease Additional medical history: nose cancer. trach Psychiatric history: no psych history - Past Surgical History Surgical History: angioplasty/stent, appendectomy, coronary bypass (CABG), herniorrhaphy, LE vascular intervention, tracheostomy Additional surgical history: BACK SURGERY, tracheostomy - Social History Smoking Status: Former smoker Smokeless Tobacco Status: No Alcohol use: none Drug use: none - Family History Mother Living Status: Hx Family Cardiac Disorders: No Hx Family Respiratory Disorders: No Hx Family Cancer: No Hx Family GI Disorders: No Hx Family Endocrine Disorder: No Hx Family Neuromuscular Disorders: No Hx Family Neurologic Disorders: No Hx Family HEENT Disorders: No Hx Family Autoimmune Disorders: No Father Living Status: Hx Family Cardiac Disorders: No Hx Family Respiratory Disorders: No Hx Family Cancer: No Hx Family GI Disorders: No Hx Family Endocrine Disorder: No Hx Family Neuromuscular Disorders: No Hx Family Neurologic Disorders: No Hx Family HEENT Disorders: No Hx Family Autoimmune Disorders: No Sister Living Status: Hx Family Cancer: Yes (lung cancer) Medications and Allergies Acetaminophen/Butalbital/Caffe [Fioricet] 1 tab PO DAILY PRN 05/14/17 [History] Gabapentin [Neurontin] 100 mg PO HS 05/14/17 [History] Aspirin Enteric Coated [Aspirin EC] 81 mg PO DAILY 08/17/17 [History] Atorvastatin Calcium [Lipitor] 80 mg PO HS 08/17/17 [History] Nitroglycerin 0.4 mg SL Q5MIN PRN #14 tab.subl 08/22/17 [Rx] BuPROPion XL (24 HR) [Wellbutrin Xl] 150 mg PO DAILY 12/16/17 [History] Cyclobenzaprine HCl 5 mg PO HS 12/16/17 [History] Ezetimibe [Zetia] 10 mg PO DAILY 12/16/17 [History] Sertraline [Zoloft] 100 mg PO DAILY 12/16/17 [History] Topiramate [Topamax] 50 mg PO HS 12/16/17 [History] amLODIPine [Norvasc] 5 mg PO DAILY 12/16/17 [History] OxyCODONE/APAP 10/325 [Percocet 10/325 MG] 1 each PO Q6HR PRN 14 Days #56 tablet 01/08/18 [Rx] Metoprolol [Lopressor] 25 mg PO BID 02/25/18 [History] Multivit-Min/FA/Lycopen/Lutein [Adults 50+ Multivitamin Tablet] 1 tab PO DAILY 02/25/18 [History] Trazodone HCl 50 mg PO HS 02/25/18 [History] Lisinopril [Zestril] 10 mg PO BID 03/28/18 [History] Metformin HCl [Glucophage] 1,000 mg PO DAILY 03/28/18 [History] Omeprazole [PriLOSEC] 20 mg PO DAILY 03/28/18 [History] Tamsulosin HCl [Flomax] 0.4 mg PO DAILY 03/28/18 [History] Levothyroxine [Synthroid] 150 mcg PO DAILY 30 Days #30 tablet 03/30/18 [Rx] Fludrocortisone Acetate [Florinef] 0.1 mg PO DAILY #5 tablet 04/18/18 [Rx] Warfarin [Coumadin] 5 mg PO MOWEFR 05/08/18 [History] Warfarin [Coumadin] 7.5 mg PO SUTUTHSA 05/08/18 [History] Amoxicillin [Amoxil] 500 mg PO Q8HR #21 capsule 05/16/18 [Rx] Docusate [Colace] 100 mg PO DAILY PRN #30 capsule 05/16/18 [Rx] Insulin DETEMIR [Levemir] 10 unit SQ HS [id number] 05/16/18 [Rx] 3 Allergy/AdvReac Type Severity Reaction Status Date / Time No Known Allergies Allergy Verified 05/11/18 14:35 All Systems Review: The remainder of the systems were reviewed and are negative - Constitutional Constitutional: no chills, no fever(s) - Cardiovascular Cardiovascular: no chest pain at rest, no dyspnea at rest - Neurological Neurological: syncope, no abnormal speech, no dizziness, no focal weakness, no numbness Exam Vital Signs, Last 4 Hours Temp Pulse Resp BP Pulse Ox 05/15/18 15:47 98.8 F 59 16 164/73 93 General: Present: Conversant, No Apparent Distress HEENT: Present: Atraumatic, Normocephaly Neck: Present: Left Carotid bruit, Other (Tracheostomy patent). Absent: JVD, Lymphadenopathy Cardiac: Present: Normal S1 and S2, No Murmur Lungs: Present: Normal Breath Sounds, No Wheeze, Rales, Rhonchi Neuro: Present: Alert and responsive, No focal deficits noted, Motor nerves grossly intact, Sensory nerves grossly intact Abdomen: Present: Soft, Non-tender. Absent: Masses Vascular: Present: Normal capillary refill, Pulse, diminished (Pedal signals present bilaterally). Absent: Cyanosis, Edema Skin: Present: No rashes noted on visualized skin Consult Discharge Plan - Plan Additional Instructions: Coumadin appointment on Monday at 11:15 am... Referrals: Peter Carlson MD [Primary Care Provider] - 05/21/18 1:15 pm (Please follow up as schedule...) Bari George MD [Partnered Physician] - 05/29/18 3:40 pm (Please follow up as schedule...) Prescriptions: Amoxicillin [Amoxil] 500 mg PO Q8HR #21 capsule Docusate [Colace] 100 mg PO DAILY PRN #30 capsule PRN Reason: Constipation
[2018-05-15] MEDS: traZODone 50 MG TABLET PO SCH (20:51)
[2018-05-15] MEDS ORDERED: Insulin DETEMIR 100 UNIT/ML X5UNITS SQ SCH (21:00)
[2018-05-16] MEDS: Insulin LISPRO 300 UNITS/3 ML VIAL SQ SCH ×3 (01:37→11:40)
[2018-05-16] MEDS: Ampicillin 2 GM in 0.9 % Sodium Chloride Mini Bag 100 ML IVPB SCH ×3 (05:00→15:25)
[2018-05-16 05:46] LABS: INR 2.7; Prothrombin Time 29.9 Seconds (9.4-12.1)
[2018-05-16] MEDS: Aspirin Enteric Coated 81 MG Tablet PO SCH (09:13)
[2018-05-16] MEDS: BuPROPion XL (24 HR) 150 MG TABLET PO SCH (09:13)
[2018-05-16] MEDS: Topiramate 25 MG TABLET PO SCH (09:13)
[2018-05-16] MEDS: Multivit/Ca/Min/Fe/FA 1 TAB TABLET PO SCH (09:13)
--- NOTE | 2018-05-16 09:52 | Neurology Progress Note ---
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 at the same time right vertebral artery was not visualized likely related to chronic occlusion clinical context it could cause dizziness lightheadedness and symptoms of vertebrobasilar insufficiency and can cause syncopal episodes. Carotid was not as occluded as noted on the duplex. Seems to be less than 50%. Already evaluated by vascular surgery not a candidate for endarterectomy with a history of nasopharyngeal cancer and tracheostomy. Perhaps could be evaluated for possible stenting if he become more symptomatic likely at a tertiary care center-like [facility] or [facility] By interventional/vascular surgery In the meantime suggest to continue on aspirin and Plavix and statin Is also concern of some progression of soft tissue nasopharyngeal area perhaps need a follow-up appointment with his oncologist as well Qualifiers: Laterality: left Qualified Code(s): I65.02 - Occlusion and stenosis of left vertebral artery (2) Bilateral stenosis of carotid arteries greater than 50% Current Visit: Yes Status: Chronic CTA did not show any critical stenosis of the carotid suggest continue on medical management already evaluated by vascular surgery (3) Spell of altered consciousness Current Visit: Yes Status: Acute (4) History of carotid artery stenosis Current Visit: Yes Status: Acute Subjective Interval history: Clinically patient is stable he did not have any other further symptoms laying down comfortably no headaches no dizziness no syncopal episodes no seizure-like of activity Initially MRI of the brain was ordered but not able to do because of some mental in the face So it was canceled. He did have a CT scan of the head that was negative. Patient has history of carotid stenosis see had a repeat carotid duplex shows bilateral 60-79% severe stenosis. seen by Vascular surgery as well, NOT a candidate for CEA, also had CTA of neck Objective - Constitutional Vitals: Temp Pulse Resp BP Pulse Ox 97.6 F 98 16 126/78 90 05/16/18 07:15 05/16/18 07:15 05/16/18 07:15 05/16/18 07:15 05/16/18 07:15 - Neurological Exam Motor Examination: Present: grossly full strength in all extremities Sensation intact: Present: intact Reflex and gait examination: intact Mental Status Examination: Present: awake, alert, oriented to person, oriented to place, follows commands appropriately, answers questions appropriately, makes eye contact, follows simple commands, localizes noxious stimulation Cranial nerve examination: Present: PERRL, EOMI, visual layton intact, no facial asymmetry is present Cerebellar examination: Present: no dysmetria (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 , has Tracheal collar ,able to have conversation) - VTE Documentation of Mechanical Device: Intermittent pneumatic compression device Results - Laboratory Findings CBC and BMP: 05/15/18 04:38 05/15/18 04:38 Abnormal lab findings: Abnormal lab results Hgb 11.2 g/dL (12.9-16.9) L 05/15/18 04:38 Hct 35.8 % (37.5-50.1) L 05/15/18 04:38 MCV 82.7 fL (83.0-100.0) L 05/15/18 04:38 MCH 25.9 pg (28.0-33.3) L 05/15/18 04:38 MCHC 31.3 g/dL (31.6-35.5) L 05/15/18 04:38 RDW 15.5 % (11.5-14.5) H 05/15/18 04:38 PT 29.9 Seconds (9.4-12.1) H 05/16/18 04:57 Sodium 135 mEq/L (136-145) L 05/15/18 04:38 BUN/Creatinine Ratio 27 (6-26) H 05/15/18 04:38 Glucose 111 mg/dL (70-105) H 05/15/18 04:38 Urine Clarity Cloudy (Clear) A 05/11/18 17:54 Urine Protein 30 mg/dL (Neg-Trace) H 05/11/18 17:54 Ur Leukocyte Esterase Large (Negative) H 05/11/18 17:54 Urine Microscopic RBC 5-15 per hpf (0-3) H 05/11/18 17:54 Urine Microscopic WBC TNTC per hpf (0-3) H 05/11/18 17:54 Ur Squamous Epith Cells Moderate per lpf (None-Few) H 05/11/18 17:54 Ur Culture Indicated? YES (NO) A 05/11/18 17:54 - Diagnostic Findings Additional findings: CTA of NECK Nonvisualization of the is the right vertebral artery most compatible with chronic occlusion. 2. Approximately 50% focal stenosis of the proximal right ICA and 35% focal stenosis of the proximal left ICA by NASCET criteria. 3. Severe focal stenosis at the origin of the left vertebral artery with mild diffuse irregularity of the left V3 segment and moderate diffuse irregularity of the left V4 segment. 4. Soft tissue attenuation is again seen within the lateral and posterior aspects of the oropharynx bilaterally, which appears slightly increased with obscure a merrill of the right parapharyngeal fat. This could represent progression of disease. Consult Discharge Plan - Plan Referrals: Peter Carlson MD [Primary Care Provider] -
[2018-05-16 11:06] VITALS: BP 126/82
--- NOTE | 2018-05-16 13:45 | Discharge Summary ---
- NOTES TO OUTPATIENT PROVIDER Notes to Outpatient Provider: Follow with PCP within one week. Follow with his vascular surgeon Dr. Palacios in 1-2 week. Fall precaution. Keep follow-up appointment with his oncologist in 2-3 weeks Orders not resulted at time of discharge: Pending orders 05/17/18 04:00 PT/INR [Prothrombin Time INR] [COAG] AM 0400 05/18/18 04:00 PT/INR [Prothrombin Time INR] [COAG] AM 0400 05/19/18 04:00 PT/INR [Prothrombin Time INR] [COAG] AM 0400 Date of Encounter: 05/16/18 Time of Encounter: 13:43 - Discharge Diagnosis (1) Episode of syncope Priority: Primary Status: Acute Assessment and Plan: Most likely due to vascular occlusion. CT angiogram with finding of Severe focal stenosis at the origin of the left vertebral artery with mild diffuse irregularity of the left V3 segment and moderate diffuse irregularity of the left V4 segment. at the same time right vertebral artery was not visualized likely related to chronic occlusion clinical context it could cause dizziness lightheadedness and symptoms of vertebrobasilar insufficiency and can cause syncopal episodes. Carotid was not as occluded as noted on the duplex. Seems to be less than 50%. Already evaluated by vascular surgery not a candidate for endarterectomy with a history of nasopharyngeal cancer and tracheostomy but possible candidate for a stenting if he become more symptomatic. Okay to discharge from vascular standpoint with follow up on OPD 2 weeks. Echocardiogram revealed with no acute finding. Orthostatic has been negative. We will discharge patient on aspirin and Plavix and a statin. Neurologists signed off and okay to discharge home. Patient needs to follow with PCP. PT OT was also consulted for discharge plan. There is also concern of some progression of soft tissue nasopharyngeal area and need a follow-up appointment with his oncologist as well at [facility] Qualifiers: Syncope type: unspecified Qualified Code(s): R55 - Syncope and collapse (2) JAKE (acute kidney injury) Priority: Primary Status: Resolved Assessment and Plan: Normal creatinine level. most likely prerenal or sepsis related secondary to UTI. Renal ultrasound revealed with bladder debris is in mild distention. Consulted urologists advise no further recommendation except treating the UTI. f (3) UTI (urinary tract infection) Priority: Primary Status: Acute Assessment and Plan: Urine culture with enterococcus and sensitivities to ampicillin . Will discharge patient on amoxicillin 500 mg by mouth 3 times a day for total 10 days. Patient already had ampicillin 3 days in the hospital. Qualifiers: Urinary tract infection type: acute cystitis Hematuria presence: without hematuria Qualified Code(s): N30.00 - Acute cystitis without hematuria (4) Atrial fibrillation Priority: Secondary Status: Chronic Assessment and Plan: No RVR. Continue metoprolol. Therapeutic INR on home dose of warfarin Qualifiers: Atrial fibrillation type: paroxysmal Qualified Code(s): I48.0 - Paroxysmal atrial fibrillation (5) Hyperkalemia Priority: Primary Status: Acute Assessment and Plan: Normal potassium level. (6) Sepsis Priority: Primary Status: Acute Assessment and Plan: Questionable. Initial lactic acid negative. Urine culture positive and treating with antibiotic. Blood culture with no growth. Qualifiers: Sepsis type: sepsis due to unspecified organism Qualified Code(s): A41.9 - Sepsis, unspecified organism Hospital course: Mr. Salmeron is a 78 year old male patient got admitted for syncope and possible sepsis. UTI was found with enterococcus and appropriate sensitive antibiotic was started. Neurologist was consulted. Carotid ultrasound with bilateral severe carotid stenosis therefore CT angiogram of neck ordered with finding of vertebral artery occlusion therefore vascular surgeon consulted and not found with candidate for CEA but possible consideration of a stent if symptoms get worse and okay to discharge patient from vascular standpoint. During his stay blood glucose level was found to be running low therefore decreased long-acting insulin dose and will discharge patient on Levemir 10 unit's daily at bedtime and further titration based on blood glucose level as discussed with patient. Please see details in diagnosis section of discharge summary. At the time of discharge patient is clinically stable, ambulating and tolerating oral diet. Discharge discussed with: patient, family, nurse - Time Spent with Patient Total time spent providing and/or coordinating discharge services: - Discharge Medications Home Medications: Acetaminophen/Butalbital/Caffe [Fioricet] 1 tab PO DAILY PRN 05/14/17 [History] Gabapentin [Neurontin] 100 mg PO HS 05/14/17 [History] Aspirin Enteric Coated [Aspirin EC] 81 mg PO DAILY 08/17/17 [History] Atorvastatin Calcium [Lipitor] 80 mg PO HS 08/17/17 [History] Nitroglycerin 0.4 mg SL Q5MIN PRN #14 tab.subl 08/22/17 [Rx] BuPROPion XL (24 HR) [Wellbutrin Xl] 150 mg PO DAILY 12/16/17 [History] Cyclobenzaprine HCl 5 mg PO HS 12/16/17 [History] Ezetimibe [Zetia] 10 mg PO DAILY 12/16/17 [History] Sertraline [Zoloft] 100 mg PO DAILY 12/16/17 [History] Topiramate [Topamax] 50 mg PO HS 12/16/17 [History] amLODIPine [Norvasc] 5 mg PO DAILY 12/16/17 [History] OxyCODONE/APAP 10/325 [Percocet 10/325 MG] 1 each PO Q6HR PRN 14 Days #56 tablet 01/08/18 [Rx] Metoprolol [Lopressor] 25 mg PO BID 02/25/18 [History] Multivit-Min/FA/Lycopen/Lutein [Adults 50+ Multivitamin Tablet] 1 tab PO DAILY 02/25/18 [History] Trazodone HCl 50 mg PO HS 02/25/18 [History] Lisinopril [Zestril] 10 mg PO BID 03/28/18 [History] Metformin HCl [Glucophage] 1,000 mg PO DAILY 03/28/18 [History] Omeprazole [PriLOSEC] 20 mg PO DAILY 03/28/18 [History] Tamsulosin HCl [Flomax] 0.4 mg PO DAILY 03/28/18 [History] Levothyroxine [Synthroid] 150 mcg PO DAILY 30 Days #30 tablet 03/30/18 [Rx] Fludrocortisone Acetate [Florinef] 0.1 mg PO DAILY #5 tablet 04/18/18 [Rx] Warfarin [Coumadin] 5 mg PO MOWEFR 05/08/18 [History] Warfarin [Coumadin] 7.5 mg PO SUTUTHSA 05/08/18 [History] Amoxicillin [Amoxil] 500 mg PO Q8HR #21 capsule 05/16/18 [Rx] Docusate [Colace] 100 mg PO DAILY PRN #30 capsule 05/16/18 [Rx] Insulin DETEMIR [Levemir] 10 unit SQ HS [id number] 05/16/18 [Rx] Allergies/Adverse Reactions: 3 Allergy/AdvReac Type Severity Reaction Status Date / Time No Known Allergies Allergy Verified 05/11/18 14:35 Date of admission: 05/13/18 22:01 Primary care physician: Peter Carlson MD Consults: 05/15/18 09:43 Consult to Vascular Surgery [CONS] Routine Consulting Provider: Vascular Surgery [place] Reason for Consult: Severe carotid artery stenosis Call Completed: Yes 05/16/18 10:43 OT [Consult to Occupational Therapy] [CONS] Stat Comment: Evaluate, develop and implement POC Reason for Consult: fall risk Does patient have active BEDREST order?: No Is patient medically & hemodynamically stable?: Yes Patient assessed for mobility or mobilized this visit?: Yes - Constitutional Vitals: Temp Pulse Resp BP Pulse Ox 98.0 F 95 17 126/82 90 05/16/18 11:04 05/16/18 11:04 05/16/18 11:04 05/16/18 11:04 05/16/18 11:04 Exam: General appearance: No acute distress, A&O X 3 Eye exam: EOMI, PERRLA ENT exam: Moist oral mucosa, chronic trach Neck nontender, supple Respiratory exam: Clear to auscultation bilaterally Cardiovascular exam: Regular rate and rhythm, no systolic murmur Abdominal exam: Soft, nontender, nondistended, positive bowel sounds Extremities exam: No calf tenderness, no pedal edema Present: Neurological exam: CN II-XII intact, no focal deficits. No facial droop. Normal speech. Normal gait. - Patient Status Disposition: Home, Self-Care Condition: Good Overall status at discharge: patient is progressing back to baseline - Discharge Instructions Follow Up With: Peter Carlson MD [Primary Care Provider] - 05/21/18 1:15 pm (Please follow up as schedule...) Bari George MD [Partnered Physician] - 05/29/18 3:40 pm (Please follow up as schedule...) Forms: ED Satisfaction Letter - Diet and Activity Activity: as per physical therapy, increase activity as tolerated Diet: diabetic diet, low fat, low cholesterol, low salt diet - VTE Documentation of Mechanical Device: Intermittent pneumatic compression device
[2018-05-16] MEDS ORDERED: Amoxicillin 500 MG CAPSULE PO SCH (14:00)
--- NOTE | 2018-05-16 15:47 | Physician Discharge Referral ---
Home Health/Hosp Referral Info Transfer to: Home Health - Diagnosis (1) Episode of syncope Priority: Primary Status: Acute (2) JAKE (acute kidney injury) Priority: Primary Status: Resolved (3) UTI (urinary tract infection) Priority: Primary Status: Acute (4) Atrial fibrillation Priority: Secondary Status: Chronic (5) Hyperkalemia Priority: Primary Status: Acute (6) Sepsis Priority: Primary Status: Acute - Respiratory Orders Smoking Cessation: Smoking cessation has been advised. For more information, call the [place] [employer] Quit Line at 9-707-LWEO-NOW. - Services Needed Following services are medically necessary services: Physical Therapy, Occupational Therapy - Transfer Medications Prescriptions: Amoxicillin [Amoxil] 500 mg PO Q8HR #21 capsule Docusate [Colace] 100 mg PO DAILY PRN #30 capsule PRN Reason: Constipation Home Medications: Acetaminophen/Butalbital/Caffe [Fioricet] 1 tab PO DAILY PRN 05/14/17 [History] Gabapentin [Neurontin] 100 mg PO HS 05/14/17 [History] Aspirin Enteric Coated [Aspirin EC] 81 mg PO DAILY 08/17/17 [History] Atorvastatin Calcium [Lipitor] 80 mg PO HS 08/17/17 [History] Nitroglycerin 0.4 mg SL Q5MIN PRN #14 tab.subl 08/22/17 [Rx] BuPROPion XL (24 HR) [Wellbutrin Xl] 150 mg PO DAILY 12/16/17 [History] Cyclobenzaprine HCl 5 mg PO HS 12/16/17 [History] Ezetimibe [Zetia] 10 mg PO DAILY 12/16/17 [History] Sertraline [Zoloft] 100 mg PO DAILY 12/16/17 [History] Topiramate [Topamax] 50 mg PO HS 12/16/17 [History] amLODIPine [Norvasc] 5 mg PO DAILY 12/16/17 [History] OxyCODONE/APAP 10/325 [Percocet 10/325 MG] 1 each PO Q6HR PRN 14 Days #56 tablet 01/08/18 [Rx] Metoprolol [Lopressor] 25 mg PO BID 02/25/18 [History] Multivit-Min/FA/Lycopen/Lutein [Adults 50+ Multivitamin Tablet] 1 tab PO DAILY 02/25/18 [History] Trazodone HCl 50 mg PO HS 02/25/18 [History] Lisinopril [Zestril] 10 mg PO BID 03/28/18 [History] Metformin HCl [Glucophage] 1,000 mg PO DAILY 03/28/18 [History] Omeprazole [PriLOSEC] 20 mg PO DAILY 03/28/18 [History] Tamsulosin HCl [Flomax] 0.4 mg PO DAILY 03/28/18 [History] Levothyroxine [Synthroid] 150 mcg PO DAILY 30 Days #30 tablet 03/30/18 [Rx] Fludrocortisone Acetate [Florinef] 0.1 mg PO DAILY #5 tablet 04/18/18 [Rx] Warfarin [Coumadin] 5 mg PO MOWEFR 05/08/18 [History] Warfarin [Coumadin] 7.5 mg PO SUTUTHSA 05/08/18 [History] Amoxicillin [Amoxil] 500 mg PO Q8HR #21 capsule 05/16/18 [Rx] Docusate [Colace] 100 mg PO DAILY PRN #30 capsule 05/16/18 [Rx] Insulin DETEMIR [Levemir] 10 unit SQ HS [id number] 05/16/18 [Rx] Allergies/Adverse Reactions: 3 Allergy/AdvReac Type Severity Reaction Status Date / Time No Known Allergies Allergy Verified 05/11/18 14:35 Certification: Further, I certify that my clinical findings support that this patient is homebound (i.e. absences from home require considerable and taxing effort and are for medical reasons or restorationist services or infrequently or short duration when for other reasons) because: Homebound Reason: Severity of cardiac or pulmonary status limits activity tolerance Attestation: My signature below is to certify that this patient is under my care and that I, or nurse practitioner, or a physician's assistant floor covering printer working with me, has a face-to -face encounter with this patient.
[2018-05-16] MEDS ORDERED: *HR* Warfarin 5 MG TABLET PO ONE (18:00)
[2018-05-16] MEDS ORDERED: Insulin DETEMIR 100 UNIT/ML X5UNITS SQ SCH (21:00)
== END 2018-05-16 16:18 | disposition home or self-care (01) | DRG 872 ==
LOC: EMEROO 14:26 → 2ANU 14:26
PROVIDERS: ADMIT Internal Medicine; ATTEND Internal Medicine

== ENCOUNTER 2018-10-01 11:47 | Inpatient (IN) ==
[2018-10-01 12:23] LABS: Basophils % 0.5 %; Eosinophils # 0.3 K/mcL (0.0-0.6); Eosinophils % 5.7 %; Hematocrit 38.9 % (37.5-50.1); Hemoglobin 12.4 g/dL (12.9-16.9); Immature Granulocytes % 0.4 % (0-4); Lymphocytes # 1.1 K/mcL (0.6-4.6); Lymphocytes % 19.3 %; Mean Corpuscular HGB Conc 31.9 g/dL (31.6-35.5); Mean Corpuscular Hemoglobin 27.6 pg (28.0-33.3); Mean Corpuscular Volume 86.4 fL (83.0-100.0); Mean Platelet Volume 9.9 fL (9.4-12.4); Monocytes # 0.5 K/mcL (0.0-1.3); Monocytes % 9.9 %; Neutrophils # 3.5 K/mcL (1.6-8.9); Platelet Count 221 K/mcL (140-400); Red Cell Distribution Width 14.8 % (11.5-14.5); Segmented Neutrophils % 64.2 %
--- NOTE | 2018-10-01 12:29 | Emergency Department Note ---
Disposition Clinical Impression: Unstable angina Disposition: Admitted As Inpatient Condition: Good Referrals: Peter Carlson MD [Primary Care Provider] - Forms: ED Satisfaction Letter Time of Disposition: 13:21 General Adult HPI - General Chief complaint: ED Chest Pain Stated complaint: chest pain Time Seen by Provider: 10/01/18 11:50 Source: patient, family Limitations: no limitations Nursing Notes Reviewed: Yes Vital Signs Reviewed: Yes - History of Present Illness HPI Narrative: 78 year old male presents to the ED with complaints of chest pain and has a history of 4 cardiac stents the last one being placed about 3 months ago and states that he is having recurring pain and that thsi si silmiar to his cardiac epsiodes in the past. Patient states that this has been goigon on since yeserday and that it is assocaited with exertional dyspnea but not diaphoretic. Patinet states that it is midsernal with pressure without radaition. Pain Scale: 7 - Related Data Home Medications Medication Instructions Recorded Confirmed Acetaminophen/Butalbital/Caffe 1 tab PO DAILY PRN 05/14/17 10/01/18 [Fioricet] Aspirin Enteric Coated [Aspirin EC] 81 mg PO DAILY 08/17/17 10/01/18 Atorvastatin Calcium [Lipitor] 80 mg PO HS 08/17/17 10/01/18 BuPROPion XL (24 HR) [Wellbutrin 150 mg PO DAILY 12/16/17 10/01/18 Xl] Cyclobenzaprine HCl 5 mg PO HS 12/16/17 10/01/18 Ezetimibe [Zetia] 10 mg PO DAILY 12/16/17 10/01/18 Sertraline [Zoloft] 100 mg PO DAILY 12/16/17 10/01/18 Topiramate [Topamax] 50 mg PO HS 12/16/17 10/01/18 amLODIPine [Norvasc] 5 mg PO DAILY 12/16/17 10/01/18 Multivit-Min/FA/Lycopen/Lutein 1 tab PO DAILY 02/25/18 10/01/18 [Adults 50+ Multivitamin Tablet] Trazodone HCl 50 mg PO HS 02/25/18 10/01/18 Lisinopril [Zestril] 10 mg PO BID 03/28/18 10/01/18 Omeprazole [PriLOSEC] 20 mg PO DAILY 03/28/18 10/01/18 Tamsulosin HCl [Flomax] 0.4 mg PO DAILY 03/28/18 10/01/18 Gabapentin [Neurontin] 300 mg PO HS 09/04/18 10/01/18 Warfarin [Coumadin] 7.5 mg PO SUMOWEFR 09/04/18 10/01/18 Warfarin [Coumadin] 10 mg PO TUTHSA 09/04/18 10/01/18 Previous Rx's Medication Instructions Recorded Nitroglycerin 0.4 mg SL Q5MIN PRN #14 tab.subl 08/22/17 OxyCODONE/APAP 10/325 [Percocet 1 each PO Q6HR PRN 14 Days #56 01/08/18 10/325 MG] tablet Fludrocortisone Acetate [Florinef] 0.1 mg PO DAILY #5 tablet 04/18/18 Docusate [Colace] 100 mg PO DAILY PRN #30 capsule 05/16/18 Levothyroxine [Synthroid] 175 mcg PO DAILY@0630 30 Days #30 09/07/18 tablet Metoprolol [Lopressor] 12.5 mg PO BID 30 Days #60 tablet 09/07/18 Allergies Allergy/AdvReac Type Severity Reaction Status Date / Time No Known Allergies Allergy Verified 07/30/18 14:14 Constitutional: Denies: fever, chills, weakness, weight change Eyes: Denies: eye pain, eye discharge, vision change ENT ED: Denies: ear pain, throat pain, dental pain, hearing loss, epistaxis, congestion, dysphagia Cardiovascular: Reports: chest pain, dyspnea on exertion. Denies: palpitations, edema, syncope Respiratory: Denies: cough, dyspnea, wheezes, hemoptysis, stridor Gastrointestinal: Denies: abdominal pain, nausea, vomiting, diarrhea, constipation, hematemesis, melena, hematochezia Genitourinary: Denies: urgency, dysuria, frequency, hematuria Musculoskeletal: Denies: back pain, neck pain, arthralgia, myalgia Integumentary: Denies: rash, abrasion, lesions Neurological: Denies: headache, weakness, numbness, paresthesias, confusion, abnormal gait, vertigo Psychiatric: Denies: anxiety, depression, suicidal thoughts, homicidal thoughts, auditory hallucinations, visual hallucinations Endocrine: Denies: fatigue Hematological/Lymphatic: Denies: easy bleeding, easy bruising Allergic/Immunologic: Denies: facial swelling, urticaria Past Medical History - Past Medical History Medical history: Reports: atrial fibrillation, cancer, coronary artery disease, CVA, diabetes, hypertension, myocardial infarction, peripheral artery disease, SVT, thyroid disease Surgical history: Reports: angioplasty/stent, appendectomy, coronary bypass (CABG), herniorrhaphy, LE vascular intervention, tracheostomy Psychiatric history: Reports: no psych history - Social History Smoking Status: Former smoker Smokeless Tobacco Status: No Alcohol use: Reports: none Drug use: Reports: none Physical Exam - General Limitations: no limitations General appearance: alert - Head Head exam: atraumatic, normocephalic, normal inspection - Eye Eye exam: Present: normal appearance, PERRL, EOMI - Expanded Eye Exam Pupils: Left: reactive - ENT ENT exam: normal exam, normal oropharynx, mucous membranes moist - Expanded ENT Exam External ear exam: Present: normal external inspection Mouth exam: Present: normal external inspection Teeth exam: Present: normal inspection Throat exam: Present: normal inspection - Neck Neck exam: Present: normal inspection, full ROM, trachea midline - Chest Chest inspection: Present: normal inspection, symmetric chest wall rise - Respiratory Respiratory exam: Present: normal lung sounds bilaterally - Cardiovascular Cardiovascular exam: Present: regular rate, normal rhythm, normal heart sounds - Abdominal Exam Abdominal exam: Present: soft, Non-Tender. Absent: tenderness, distention, guarding, rebound, rigidity - Extremities Exam Extremities exam: Present: normal inspection, full ROM. Absent: tenderness, pedal edema - Expanded Upper Extremity Exam Shoulder exam: Present: normal inspection, full ROM Arm exam: Present: normal inspection, full ROM Elbow exam: Present: normal inspection, full ROM Forearm/Wrist exam: Present: normal inspection, full ROM Hand exam: Present: normal inspection, full ROM Vascular exam: Normal: capillary refill, radial pulse - Expanded Lower Extremity Exam Hip/Pelvis exam: Present: normal inspection, full ROM Upper leg exam: Present: normal inspection, full ROM Knee exam: Present: normal inspection, full ROM Lower leg exam: Present: normal inspection, full ROM Ankle exam: Present: normal inspection, full ROM Foot/toe exam: Present: normal inspection, full ROM Neurovascular/Tendon exam: Absent: motor deficit, sensory deficit, tendon deficit - Back Exam Back exam: Present: normal inspection, full ROM. Absent: tenderness - Neurological Exam Neurological exam: Present: alert, oriented X3 - Expanded Neurological Exam Patient oriented to: Present: person, place, time Coma Scale Eye Opening: Spontaneous Coma Scale Motor Response: Obeys Commands Coma Scale Verbal Response: Oriented Coma Scale Total: 15 - Psychiatric Psychiatric exam: Present: normal affect, normal mood - Skin Skin exam: Present: warm, dry, intact, normal color Course Course Narrative: i will do an ACS workup and then admit to medicine. Ramírez will recieve aSA and state that nitro gives him a headache. - Reevaluation(s) Reevaluation #1: updated patient on results and they are agreeable to plan. Time: 13:21 - Consultations Consultation #1: discussed case with Dr. Cole and he accepts patient to his service, Time: 13:20 Vital Signs Temperature 98.9 F 10/01/18 11:58 Pulse Rate 49 10/01/18 11:58 Respiratory Rate 12 10/01/18 11:58 Blood Pressure 126/71 10/01/18 11:58 O2 Sat by Pulse Oximetry 100 10/01/18 11:58 Temperature 98.9 F 10/01/18 11:58 Pulse Rate 54 10/01/18 13:06 Respiratory Rate 16 10/01/18 13:06 Blood Pressure 124/61 10/01/18 13:06 O2 Sat by Pulse Oximetry 100 10/01/18 13:06 Oxygen Delivery Oxygen Delivery Room Air Medical Decision Making - Medical Records Medical records reviewed: Yes I reviewed the patient's medical records. - Lab Data Lab results reviewed: Yes I reviewed the patient's lab results. Result diagrams: 10/01/18 11:58 10/01/18 11:58 Lab Results 10/01/18 10/01/18 10/01/18 Range/Units 11:58 11:58 11:58 WBC 5.5 (4.3-11.1) K/mcL RBC 4.50 (4.19-5.50) M/mcL Hgb 12.4 L (12.9-16.9) g/dL Hct 38.9 (37.5-50.1) % MCV 86.4 (83.0-100.0) fL MCH 27.6 L (28.0-33.3) pg MCHC 31.9 (31.6-35.5) g/dL RDW 14.8 H (11.5-14.5) % Plt Count 221 (140-400) K/mcL MPV 9.9 (9.4-12.4) fL Immature Gran % 0.4 (0-4) % Seg Neutrophils % 64.2 % Lymphocytes % 19.3 % Monocytes % 9.9 % Eosinophils % 5.7 % Basophils % 0.5 % Neutrophils # 3.5 (1.6-8.9) K/mcL Lymphocytes # 1.1 (0.6-4.6) K/mcL Monocytes # 0.5 (0.0-1.3) K/mcL Eosinophils # 0.3 (0.0-0.6) K/mcL Basophils # 0.0 (0.0-0.2) K/mcL PT 31.9 H (9.4-12.1) Seconds INR 2.8 APTT 47.6 H (26.0-36.0) Seconds Sodium 136 (136-145) mEq/L Potassium 5.0 (3.5-5.1) mEq/L Chloride 104 (98-107) mEq/L Carbon Dioxide 23 (23-29) mEq/L BUN 27 H (8-23) mg/dL Creatinine 1.15 (0.70-1.30) mg/dL Est GFR ( Amer) > 60 (> 60) Est GFR (Non-Af Amer) > 60 (> 60) BUN/Creatinine Ratio 23 (6-26) Glucose 141 H (70-105) mg/dL Calculated Osmolality 289 (280-300) Calcium 9.3 (8.6-10.3) mg/dL Troponin I < 0.03 (< 0.04) ng/mL - Radiology Data Radiology results reviewed: Yes I reviewed the patient's radiology results. - EKG Data EKG #1 EKG attestation: Yes I reviewed and interpreted this EKG. EKG results narrative: NSR with rate of 62. NO STEMI. nonspecific ST-T wave abnormalities, no ischemic changes. no old ekg. [id number]
[2018-10-01] MEDS ORDERED: Aspirin 325 MG TABLET PO ONE (12:31)
[2018-10-01] MEDS ORDERED: *HR* Morphine 2 MG/ML SYRINGE IVP PRN (12:31)
[2018-10-01 12:32] LABS: Troponin I < 0.03 ng/mL (< 0.04)
[2018-10-01 12:38] LABS: INR 2.8; Prothrombin Time 31.9 Seconds (9.4-12.1)
[2018-10-01 12:42] LABS: Activated Partial Thrombo Time 47.6 Seconds (26.0-36.0)
[2018-10-01 12:49] LABS: BUN/Creatinine Ratio 23 (6-26); Blood Urea Nitrogen 27 mg/dL (8-23); Calcium 9.3 mg/dL (8.6-10.3); Carbon Dioxide 23 mEq/L (23-29); Chloride 104 mEq/L (98-107); Glucose 141 mg/dL (70-105); Osmolality,Calculated 289 (280-300); Sodium 136 mEq/L (136-145); eGFR For Non-African Americans > 60 (> 60)
[2018-10-01] MEDS ORDERED: Nitroglycerin 0.4 MG TAB.SUBL SL PRN (15:16)
[2018-10-01] MEDS: Acetaminophen/Butalbital/CaffeineTABLET PO PRN (15:59)
[2018-10-01] MEDS ORDERED: Dextrose Gel 15 GM/37.5 ML TUBE PO PRN ×2 (16:00→16:05)
[2018-10-01] MEDS ORDERED: D5% in Water 1,000 ML IVC PRN (16:00)
[2018-10-01] MEDS: Gabapentin 100 MG CAPSULE PO SCH (16:00)
[2018-10-01] MEDS ORDERED: Naloxone 0.4 MG/ML INJ IVP PRN (16:00)
[2018-10-01] MEDS ORDERED: *HR* Dextrose 50 % in Water (Syg) 50 ML SYRINGE IVP PRN (16:05)
[2018-10-01] MEDS: Insulin LISPRO 300 UNITS/3 ML VIAL SQ SCH ×2 (16:24→20:45)
[2018-10-01 16:37] LABS: Estimated Average Glucose 180 mg/dl; Hemoglobin A1C 7.9 %
--- NOTE | 2018-10-01 17:09 | Internal Med History&Physical ---
Date of Encounter: 10/01/18 Time of Encounter: 17:07 Internal Medicine - H&P: HPI Chief complaint: chest pain Admitted From: Home Plans for Post Hospital Care: Home History of present illness: Mr. Salmeron is a 78 year old male with a PMH of atrial fibrillation, cancer, CAD, CVA, DM, HTN, [place], PVD, SVT and hypothyroidism. He presents to [facility] today with complaints of dizziness and midsternal chest pain with radiation to the left and right chest. He states that the pain began yesterday morning he has been dull and persistent since. He denies any aggravating or alleviating factors and denies any nausea or diaphoresis. He does have a history of stents with the most recent being in 09/01. He states that the pain is 4/10. Initial troponin the ED is negative and EKG is without acute ST-T wave changes concerning for ischemia. His recently admitted with chest pain in 09/05/18 also with negative troponins and normal ECG. At that time was not felt that this was ACS. Of note the patient is complaining of epigastric pain and has some epigastric tenderness to palpation is also complaining of acid reflux. He is being admitted for monitoring and chest pain rule out. Past Med Surg Social Fam HX - Past Medical History Medical history: atrial fibrillation, cancer, coronary artery disease, CVA, diabetes, hypertension, myocardial infarction, peripheral artery disease, SVT, thyroid disease Additional medical history: "nose cancer" Psychiatric history: no psych history - Past Surgical History Surgical History: angioplasty/stent, appendectomy, coronary bypass (CABG), herniorrhaphy, LE vascular intervention, tracheostomy Additional surgical history: BACK SURGERY, tracheostomy - Social History Smoking Status: Former smoker Smokeless Tobacco Status: No Alcohol use: none Drug use: none - Family History Mother Living Status: Hx Family Cardiac Disorders: No Hx Family Respiratory Disorders: No Hx Family Cancer: No Hx Family GI Disorders: No Hx Family Endocrine Disorder: No Hx Family Neuromuscular Disorders: No Hx Family Neurologic Disorders: No Hx Family HEENT Disorders: No Hx Family Autoimmune Disorders: No Father Living Status: Hx Family Cardiac Disorders: No Hx Family Respiratory Disorders: No Hx Family Cancer: No Hx Family GI Disorders: No Hx Family Endocrine Disorder: No Hx Family Neuromuscular Disorders: No Hx Family Neurologic Disorders: No Hx Family HEENT Disorders: No Hx Family Autoimmune Disorders: No Sister Living Status: Hx Family Cancer: Yes (lung cancer) Internal Medicine - H&P: Meds Acetaminophen/Butalbital/Caffe [Fioricet] 1 tab PO DAILY PRN 05/14/17 [History] Aspirin Enteric Coated [Aspirin EC] 81 mg PO DAILY 08/17/17 [History] Atorvastatin Calcium [Lipitor] 80 mg PO HS 08/17/17 [History] Nitroglycerin 0.4 mg SL Q5MIN PRN #14 tab.subl 08/22/17 [Rx] BuPROPion XL (24 HR) [Wellbutrin Xl] 150 mg PO DAILY 12/16/17 [History] Cyclobenzaprine HCl 5 mg PO HS 12/16/17 [History] Ezetimibe [Zetia] 10 mg PO DAILY 12/16/17 [History] Sertraline [Zoloft] 100 mg PO DAILY 12/16/17 [History] Topiramate [Topamax] 50 mg PO HS 12/16/17 [History] amLODIPine [Norvasc] 5 mg PO DAILY 12/16/17 [History] OxyCODONE/APAP 10/325 [Percocet 10/325 MG] 1 each PO Q6HR PRN 14 Days #56 tablet 01/08/18 [Rx] Multivit-Min/FA/Lycopen/Lutein [Adults 50+ Multivitamin Tablet] 1 tab PO DAILY 02/25/18 [History] Trazodone HCl 50 mg PO HS 02/25/18 [History] Lisinopril [Zestril] 10 mg PO BID 03/28/18 [History] Omeprazole [PriLOSEC] 20 mg PO DAILY 03/28/18 [History] Tamsulosin HCl [Flomax] 0.4 mg PO DAILY 03/28/18 [History] Fludrocortisone Acetate [Florinef] 0.1 mg PO DAILY #5 tablet 04/18/18 [Rx] Docusate [Colace] 100 mg PO DAILY PRN #30 capsule 05/16/18 [Rx] Gabapentin [Neurontin] 300 mg PO HS 09/04/18 [History] Warfarin [Coumadin] 7.5 mg PO SUMOWETHFR 09/04/18 [History] Warfarin [Coumadin] 10 mg PO TUSA 09/04/18 [History] Levothyroxine [Synthroid] 175 mcg PO DAILY@0630 30 Days #30 tablet 09/07/18 [Rx] Metoprolol [Lopressor] 12.5 mg PO BID 30 Days #60 tablet 09/07/18 [Rx] Butalbital/Acetaminophen [Acetaminophn-Butalbital 325-50] 1 tab PO DAILY PRN 10/01/18 [History] Gabapentin [Neurontin] 100 mg PO BID 10/01/18 [History] Insulin Glargine [Lantus] 20 unit SQ QAM 10/01/18 [History] Metformin HCl [Metformin HCl ER] 1,000 mg PO QPM 10/01/18 [History] Allergy/AdvReac Type Severity Reaction Status Date / Time No Known Allergies Allergy Verified 07/30/18 14:14 All Systems PM: A 10-system review of systems was performed and is negative for pertinent findings except as documented above in the HPI. Review of systems: REVIEW OF SYSTEMS GENERAL: Negative for any nausea, vomiting, fevers, chills NEUROLOGIC: Negative for any blurry vision, blind spots, double vision, facial asymmetry, dysphagia, dysarthria, hemiparesis, hemisensory deficits, vertigo, ataxia. HEENT: Negative for any head trauma, neck trauma, neck stiffness, photophobia, phonophobia, sinusitis, rhinitis. CARDIAC: Negative for any, dyspnea on exertion, paroxysmal nocturnal dyspnea, peripheral edema. Positive for chest pain PULMONARY: Negative for any shortness of breath, wheezing, COPD, or TB exposure. GASTROINTESTINAL: Negative for any, nausea, vomiting, bright red blood per rectum, melena. Positive for acid reflux and epigastric pain GENITOURINARY: Negative for any dysuria, hematuria, incontinence. INTEGUMENTARY: Negative for any rashes, cuts, insect bites. RHEUMATOLOGIC: Negative for any joint pains, photosensitive rashes, history of vasculitis or kidney problems. HEMATOLOGIC: Negative for any abnormal bruising, frequent infections or bleeding. - Constitutional Vitals: Temp Pulse Resp BP Pulse Ox 97.6 F 51 16 149/62 97 10/01/18 15:00 10/01/18 15:00 10/01/18 15:00 10/01/18 15:00 10/01/18 15:00 General appearance: Present: A&O X 3 Exam: PHYSICAL EXAMINATION: GENERAL: 78 male, NAD, and O 3 HEENT: Head is normocephalic and atraumatic. EOMI, PERRLA NECK: Supple. No carotid bruits. No lymphadenopathy or thyromegaly. Stoma LUNGS: Clear to auscultation B/L AP and L. HEART: Bradycardic rate and regular rhythm, S1, S2 without murmur. ABDOMEN: Soft and nondistended. Positive bowel sounds. No hepatosplenomegaly was noted. Epigastric tenderness EXTREMITIES: Without any cyanosis, clubbing, rash, lesions or edema. NEUROLOGIC: Cranial nerves II through XII are grossly intact. PSYCHIATRIC: Appropriate affect, denies SI/HI, without agitation or anxiety SKIN: No ulceration or induration present. Internal Med - H&P Results - Labs CBC & Chem 7: 10/01/18 11:58 10/01/18 11:58 Labs: Short CBC 10/01/18 Range/Units 11:58 WBC 5.5 (4.3-11.1) K/mcL Hgb 12.4 L (12.9-16.9) g/dL Hct 38.9 (37.5-50.1) % Plt Count 221 (140-400) K/mcL Neutrophils # 3.5 (1.6-8.9) K/mcL BMP 10/01/18 11:58 Sodium 136 Potassium 5.0 Chloride 104 Carbon Dioxide 23 BUN 27 H Creatinine 1.15 Glucose 141 H Calcium 9.3 Cardiac Enzymes 10/01/18 Range/Units 11:58 Troponin I < 0.03 (< 0.04) ng/mL - EKG Data EKG shows normal: sinus rhythm Rate: bradycardia - EKG Data Prior EKG available for review: yes When compared to previous EKG: there is no significant change - Impressions ITS Impressions Chest X-Ray 10/01/18 11:50 IMPRESSION: Stable cardiomegaly. Minimal pulmonary vascular congestion. D/ / Maciej Barahona MD / Maciej Barahona MD Interpreting Provider: Maciej Barahona MD - Assessment and plan (1) Chest pain Current Visit: No Status: Acute Assessment and plan: Atypical chest pain presentation Initial troponin negative EKG in the ED without ST-T wave changes concerning for ischemia CAD Risk prior IL, PVD, CAD, DM, HTN, HLD , former smoker PLAN: - cardiac enzymes x 2 q 6 hr - EKG now and in AM - ASA, continue anti-HTN meds - Heparin 5000 U SQ BID - Refrain from ordering 2D Echo had one in 05/02-salt as follows- --- EF 60%, mild LVH, mild LVDD, mild MR, mild-moderate TR, mild PHTN - Stress test in the morning - Cardiac/diabetic diet now - Nothing by mouth after midnight - Continuous telemetry Qualifiers: Chest pain type: unspecified Qualified Code(s): R07.9 - Chest pain, unspecified (2) HTN (hypertension) with goal to be determined Current Visit: No Status: Acute Assessment and plan: Resume anti-HTN meds monitor (3) Headache Current Visit: No Status: Acute Assessment and plan: Tylenol Qualifiers: Headache type: unspecified Headache chronicity pattern: unspecified pattern Intractability: not intractable Qualified Code(s): R51 - Headache (4) PAD (peripheral artery disease) Current Visit: No Status: Acute (5) Paroxysmal A-fib Current Visit: No Status: Acute Assessment and plan: Takes warfarin INR therapeutic Continue with pharmacy dosing (6) Postural hypotension Current Visit: No Status: Acute Assessment and plan: Continue fludrocortisone (7) CAD (coronary artery disease) Current Visit: No Status: Chronic Assessment and plan: Continue cardiac meds Qualifiers: Coronary Disease-Associated Artery/Lesion type: bypass graft [place] vs. 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 Diabetes mellitus complication status: without complication Qualified Code(s): E11.9 - Type 2 diabetes mellitus without complications; Z79.4 - senior care (current) use of insulin (9) Hypothyroidism Current Visit: No Status: Chronic Assessment and plan: Continue Synthroid Check TSH Check free T4 May need adjusted; recent dose adjustment 09/05/18 increased from 150-175mcg Qualifiers: Qualified Code(s): E03.9 - Hypothyroidism, unspecified (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
[2018-10-01] MEDS ORDERED: Acetaminophen 325 MG TABLET PO PRN (17:20)
[2018-10-01] MEDS ORDERED: *HR* Warfarin 7.5 MG TABLET PO ONE (18:00)
[2018-10-01] MEDS ORDERED: Warfarin perPT PO PRN (18:00)
[2018-10-01] MEDS: traZODone 50 MG TABLET PO SCH (20:44)
[2018-10-01] MEDS: Gabapentin 300 MG CAPSULE PO SCH (20:44)
[2018-10-01] MEDS: Topiramate 25 MG TABLET PO SCH (20:45)
[2018-10-01] MEDS: *HR* OxyCODONE/APAP 10/325 TABLET PO PRN (20:49)
[2018-10-02 00:39] LABS: Hematocrit 38.3 % (37.5-50.1); Hemoglobin 11.8 g/dL (12.9-16.9); Mean Corpuscular HGB Conc 30.8 g/dL (31.6-35.5); Mean Corpuscular Hemoglobin 27.3 pg (28.0-33.3); Mean Corpuscular Volume 88.5 fL (83.0-100.0); Platelet Count 194 K/mcL (140-400); Red Blood Count 4.33 M/mcL (4.19-5.50); Red Cell Distribution Width 14.5 % (11.5-14.5)
[2018-10-02 00:49] LABS: Prothrombin Time 34.1 Seconds (9.4-12.1)
[2018-10-02 00:58] LABS: BUN/Creatinine Ratio 19 (6-26); Blood Urea Nitrogen 23 mg/dL (8-23); Calcium 8.9 mg/dL (8.6-10.3); Carbon Dioxide 23 mEq/L (23-29); Chloride 105 mEq/L (98-107); Glucose 217 mg/dL (70-105); Osmolality,Calculated 290 (280-300); Potassium 4.1 mEq/L (3.5-5.1); Sodium 135 mEq/L (136-145); eGFR For Non-African Americans > 60 (> 60)
[2018-10-02] MEDS ORDERED: Regadenoson 0.4 MG/5 ML SYRINGE IVP ONE (07:30)
--- NOTE | 2018-10-02 08:49 | Electrocardiograph Report ---
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
[2018-10-02] MEDS: Insulin LISPRO 300 UNITS/3 ML VIAL SQ SCH ×4 (09:49→21:29)
[2018-10-02] MEDS: BuPROPion XL (24 HR) 150 MG TABLET PO SCH (10:05)
[2018-10-02] MEDS: Aspirin Enteric Coated 81 MG Tablet PO SCH (10:05)
[2018-10-02] MEDS: Gabapentin 100 MG CAPSULE PO SCH ×2 (10:05→16:18)
[2018-10-02] MEDS: amLODIPine 5 MG TABLET PO SCH (10:07)
[2018-10-02] MEDS: Insulin DETEMIR 100 UNIT/ML X5UNITS SQ SCH (10:19)
[2018-10-02] MEDS: Multivit/Ca/Min/Fe/FA 1 TAB TABLET PO SCH (10:19)
--- NOTE | 2018-10-02 10:26 | Internal Med Progress Note ---
Hospitalist Progress Note - Encounter Date of Encounter: 10/02/18 Time of Encounter: 10:26 - Exam Vitals: Temp Pulse Resp BP Pulse Ox 97.6 F 49 16 133/67 95 10/02/18 09:45 10/02/18 09:45 10/02/18 09:45 10/02/18 09:45 10/02/18 09:45 - Assessment and Plan (1) CAD (coronary artery disease) Current Visit: No Status: Chronic (2) Diabetes Current Visit: No Status: Chronic (3) Nasopharyngeal cancer Current Visit: No Status: Chronic (4) Headache Current Visit: No Status: Acute (5) HTN (hypertension) with goal to be determined Current Visit: No Status: Acute (6) Postural hypotension Current Visit: No Status: Acute (7) Chest pain Current Visit: No Status: Acute (8) PAD (peripheral artery disease) Current Visit: No Status: Acute (9) Hypothyroidism Current Visit: No Status: Chronic (10) Paroxysmal A-fib Current Visit: No Status: Acute - Time Spent with Patient Total time spent is greater than 50% in coordination of care (as documented) at patient's floor/unit and/or counseling patient: Internal Medicine: Result - Labs CBC & Chem 7: 10/02/18 00:26 10/02/18 00:26 Labs: Short CBC 10/01/18 10/02/18 Range/Units 11:58 00:26 WBC 5.5 4.6 (4.3-11.1) K/mcL Hgb 12.4 L 11.8 L (12.9-16.9) g/dL Hct 38.9 38.3 (37.5-50.1) % Plt Count 221 194 (140-400) K/mcL Neutrophils # 3.5 (1.6-8.9) K/mcL BMP 10/01/18 10/02/18 11:58 00:26 Sodium 136 135 L Potassium 5.0 4.1 Chloride 104 105 Carbon Dioxide 23 23 BUN 27 H 23 Creatinine 1.15 1.18 Glucose 141 H 217 H Calcium 9.3 8.9 Cardiac Enzymes 10/01/18 10/01/18 10/02/18 Range/Units 11:58 17:30 00:26 Troponin I < 0.03 < 0.03 < 0.03 (< 0.04) ng/mL - ABG Interpretation ABG results: PT/INR, D-dimer PT 34.1 Seconds (9.4-12.1) H 10/02/18 00:26 - Impressions Impressions Chest X-Ray 10/01/18 11:50 IMPRESSION: Stable cardiomegaly. Minimal pulmonary vascular congestion. D/ / Maciej Barahona MD / Maciej Barahona MD Interpreting Provider: Maciej Barahona MD Consult Discharge Plan - Plan Referrals: Peter Carlson MD [Primary Care Provider] - (1) CAD (coronary artery disease) Qualifiers: Coronary Disease-Associated Artery/Lesion type: bypass graft [place] vs. 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
--- NOTE | 2018-10-02 11:46 | Cardiology Consult Note ---
Addendum entered and electronically signed by Yissel Cat CNP 10/02/18 15:47: After discussion with Dr. Quevedo, patient reports increasing angina type symptoms. Given abnormal stress, recommend LHC with possible PCI when INR allows. Recommend holding Coumadin in preparation for LHC, INR will need to be less than 1.8. Original Note: <Yissel Cat - Last Filed: 10/02/18 12:42> Date of Encounter: 10/02/18 Time of Encounter: 11:50 Assessment and Plan (1) Chest pain Current Visit: Yes Status: Resolved Atypical chest pain--patient reports "palpitations" were presenting symptoms. Reports "pounding" pulse in ear consistent with pulsatile tinnitus. He is noted to have bradycardia with HRs int he 50-60's--likely secondary to hypothyroidism, TSH 54. Troponin negative x3; no acute ST/T wave abnormalities. Cardiology consulted today for abnormal stress test--found to have mild, small s ized basal inferolateral defect. SDS=3, gated EF=70%. Low risk finding, medical therapy recommended. Of note, abnormality on stress correlates with known coronary anatomy; SVG to OM1 occluded. SVG to RPDA occluded. Consider addition of nitrates with symptoms (angina) if needed in the future--denies chest pain symptoms. Continue home CV medications. Qualifiers: Chest pain type: unspecified Qualified Code(s): R07.9 - Chest pain, unspeci fied (2) Hypothyroidism, unspecified Current Visit: No Status: Chronic TSH 54, likely influencing bradycardia and presenting symptoms. Of note, labile TSH levels over the past 6 months. Close outpatient follow-up with PCP. Qualifiers: Hypothyroidism type: other Qualified Code(s): E03.8 - Other specified hypothyroidism (3) CAD (coronary artery disease) Current Visit: No Status: Chronic Plan as above. Continue home CV medications. Qualifiers: Coronary Disease-Associated Artery/Lesion type: bypass graft [place] vs. transplanted heart: [place] heart Associated angina: with stable angina Qualified Code(s): I25.708 - Atherosclerosis of coronary artery bypass graft(s), unspecified, with other forms of angina pectoris (4) Atrial fibrillation Current Visit: No Status: Chronic Hx of PAF, continue BB as HR will tolerate. Continue coumadin for AC. Qualifiers: Atrial fibrillation type: paroxysmal Qualified Code(s): I48.0 - Paroxysmal atrial fibrillation Discussion w patient/family: The assessment and plan as outlined above was discussed with the patient and/or family members who expressed understanding and agreement. All questions were answered. Thank you for involving us in the care of your patient. Please call with any questions. The patient will be discussed and reviewed with Dr. Quevedo; changes to be made accordingly. 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 He underwent PCI to distal circumflex arter in 08/2017 who presented to the ED with complaints of palpitations for the past several days. Associated symptoms include dizziness. He reports being able to hear his pulse rate in his head. Nothing seemed to worsen or improve palpitations. He denies chest pain or discomfort or prior angina symptoms. Upon arrival to ED, troponin negative x3. ECG demonstrated non-specific ST/T wave abnormalities. Of note, his TSH is 54. Cardiology consulted today for mildly abnormal stress test. Previous studies: Carotid duplex 05/13/2018: Bilateral severe ICA stenoses. TTE 05/09/2018: LVEF 60%. Mild concentric LVH. Mild diastolic dysfunction. RV is not well visualized, low normal function. Severe left atrial enlargement. Mild MR. Mild to moderate TR. Mild pulmonary hypertension. Limited TTE 03/28/2018: LVEF 55-60%. Mild to moderate concentric LVH. RV appeared dilated with normal function. Negative agitated saline study. [facility] 09/08/2017: LM nl. LAD mid 90% stenosis. Cx mid 50% and distal 70-80% stenosis (MINDA x1 placed). RCA mid 100% stenosis. SVG to OM1 occluded. SVG to RPDA occluded. LOMAX to mid LAD proximal 30-40% stenosis. EF 50%. TTE 08/18/2017: LVEF 55%. Mild to moderate concentric LVH. Mild diastolic dysfunction. Mild MR, TR. No pHTN. TTE ([facility]) 06/28/2017: LVEF 55-60%. Normal LV, RV size and function. Negative for PFO. RVSP normal. No significant valve disease described. TTE 01/07/2016: EF is 60-65%. Mild concentric LVH. Moderately dilated left atrium. Limited study: Valves not assessed. Pharmacological nuclear stress test 01/07/2016: Negative for ischemia or prior infarct. Resting ECG demonstrated sinus bradycardia, HR 50. TTE 07/07/2015: EF 60-65%. Mild concentric LVH. Mild diastolic dysfunction. Moderately dilated left atrium. No significant valvular dysfunction. No pulmonary hypertension. Past Med Surg Social Fam HX - Past Medical History Attestation: Yes The following information was validated with the patient. Source: patient Medical history: atrial fibrillation, cancer, coronary artery disease, CVA, diabetes, hypertension, myocardial infarction, peripheral artery disease, SVT, thyroid disease Additional medical history: "nose cancer" Psychiatric history: no psych history - Past Surgical History Surgical History: angioplasty/stent, appendectomy, coronary bypass (CABG), herniorrhaphy, LE vascular intervention, tracheostomy Additional surgical history: BACK SURGERY, tracheostomy - Social History Smoking Status: Former smoker Smokeless Tobacco Status: No Alcohol use: none Drug use: none - Family History Father Living Status: Hx Family Cardiac Disorders: No Hx Family Respiratory Disorders: No Hx Family Cancer: No Hx Family GI Disorders: No Hx Family Endocrine Disorder: No Hx Family Neuromuscular Disorders: No Hx Family Neurologic Disorders: No Hx Family HEENT Disorders: No Hx Family Autoimmune Disorders: No Mother Living Status: Hx Family Cardiac Disorders: No Hx Family Respiratory Disorders: No Hx Family Cancer: No Hx Family GI Disorders: No Hx Family Endocrine Disorder: No Hx Family Neuromuscular Disorders: No Hx Family Neurologic Disorders: No Hx Family HEENT Disorders: No Hx Family Autoimmune Disorders: No Sister Living Status: Hx Family Cancer: Yes (lung cancer) Medications and Allergies RX: Acetaminophen/Butalbital/Caffe [Fioricet] 1 tab PO DAILY PRN 05/14/17 [History] RX: Aspirin Enteric Coated [Aspirin EC] 81 mg PO DAILY 08/17/17 [History] RX: Atorvastatin Calcium [Lipitor] 80 mg PO HS 11/02/17 [History] RX: Nitroglycerin 0.4 mg SL Q5MIN PRN #14 tab.subl 08/22/17 [Rx] RX: BuPROPion XL (24 HR) [Wellbutrin Xl] 150 mg PO DAILY 12/16/17 [History] RX: Cyclobenzaprine HCl 5 mg PO HS 12/16/17 [History] RX: Ezetimibe [Zetia] 10 mg PO DAILY 12/16/17 [History] RX: Sertraline [Zoloft] 100 mg PO DAILY 12/16/17 [History] RX: Topiramate [Topamax] 50 mg PO HS 12/16/17 [History] RX: amLODIPine [Norvasc] 5 mg PO DAILY 12/16/17 [History] RX: OxyCODONE/APAP 10/325 [Percocet 10/325 MG] 1 each PO Q6HR PRN 14 Days #56 tablet 01/08/18 [Rx] RX: Multivit-Min/FA/Lycopen/Lutein [Adults 50+ Multivitamin Tablet] 1 tab PO DAILY 02/25/18 [History] RX: Trazodone HCl 50 mg PO HS 02/25/18 [History] RX: Lisinopril [Zestril] 10 mg PO BID 03/28/18 [History] RX: Omeprazole [PriLOSEC] 20 mg PO DAILY 03/28/18 [History] RX: Tamsulosin HCl [Flomax] 0.4 mg PO DAILY 03/28/18 [History] RX: Fludrocortisone Acetate [Florinef] 0.1 mg PO DAILY #5 tablet 04/18/18 [Rx] RX: Docusate [Colace] 100 mg PO DAILY PRN #30 capsule 05/16/18 [Rx] RX: Gabapentin [Neurontin] 300 mg PO HS 09/04/18 [History] RX: Warfarin [Coumadin] 7.5 mg PO SUMOWETHFR 09/04/18 [History] RX: Warfarin [Coumadin] 10 mg PO TUSA 09/04/18 [History] RX: Metoprolol [Lopressor] 12.5 mg PO BID 30 Days #60 tablet 09/07/18 [Rx] RX: Butalbital/Acetaminophen [Butalbital-Acetaminophn 50-325] 1 tab PO DAILY PRN 10/01/18 [History] RX: Gabapentin [Neurontin] 100 mg PO BID 10/01/18 [History] RX: Insulin Glargine [Lantus] 20 unit SQ QAM 10/01/18 [History] RX: Metformin HCl [Metformin HCl ER] 1,000 mg PO QPM 10/01/18 [History] RX: Levothyroxine [Synthroid] 200 mcg PO DAILY@0630 #30 tablet 10/02/18 [Rx] Allergy/AdvReac Type Severity Reaction Status Date / Time No Known Allergies Allergy Verified 07/30/18 14:14 All Systems Review: The remainder of the systems were reviewed and are negative - Cardiovascular Cardiovascular: as per HPI Physical Examination Vital Signs, Last 4 Hours Temp Pulse Resp BP Pulse Ox 10/02/18 11:29 98.1 F 54 16 123/57 98 10/02/18 09:45 97.6 F 49 16 133/67 95 General: Conversant, No Apparent Distress HEENT: Atraumatic, Normocephaly, Mucus Membranes Moist Neck: Other (stoma) Cardiac: Reg Rate and Rhythm (bradycardiac) Lungs: Normal Breath Sounds Neuro: Alert and responsive Abdomen: Soft Skin: No rashes noted on visualized skin Musculoskeletal: No Chest Wall Tenderness Extremities: No Edema, Normal Pulses Results 10/02/18 00:26 10/02/18 00:26 Lab Results 10/01/18 10/01/18 10/01/18 11:58 11:58 11:58 WBC 5.5 Hgb 12.4 L Hct 38.9 Plt Count 221 INR 2.8 APTT 47.6 H Sodium 136 Potassium 5.0 Chloride 104 Carbon Dioxide 23 BUN 27 H Creatinine 1.15 Glucose 141 H Calcium 9.3 Troponin I < 0.03 TSH 54.900 H 10/01/18 10/02/18 10/02/18 17:30 00:26 00:26 WBC Hgb Hct Plt Count INR 3.0 APTT Sodium Potassium Chloride Carbon Dioxide BUN Creatinine Glucose Calcium Troponin I < 0.03 < 0.03 TSH 10/02/18 10/02/18 00:26 00:26 WBC 4.6 Hgb 11.8 L Hct 38.3 Plt Count 194 INR APTT Sodium 135 L Potassium 4.1 Chloride 105 Carbon Dioxide 23 BUN 23 Creatinine 1.18 Glucose 217 H Calcium 8.9 Troponin I TSH Active Medications Acetaminophen (Tylenol) 650 mg PO Q6HR PRN PRN Reason: Mild Pain Stop: 04/02/19 17:21 Acetaminophen/Butalbital/Caffeine (Fioricet) 1 each PO DAILY PRN; Protocol PRN Reason: Headache Stop: 04/02/19 15:17 Last Admin: 10/01/18 15:59 Dose: 1 each Amlodipine Besylate (Norvasc) 5 mg PO DAILY [facility]; Protocol Stop: 04/03/19 09:01 Last Admin: 10/02/18 10:07 Dose: 5 mg Aspirin (Aspirin Ec) 81 mg PO DAILY [facility] Stop: 04/03/19 09:01 Last Admin: 10/02/18 10:05 Dose: 81 mg Atorvastatin Calcium (Lipitor) 80 mg PO HS [facility] Stop: 04/02/19 21:01 Last Admin: 10/01/18 20:44 Dose: 80 mg Bupropion HCl (Wellbutrin Xl) 150 mg PO DAILY [facility] Stop: 04/03/19 09:01 Last Admin: 10/02/18 10:05 Dose: 150 mg Dextrose/Water (Dextrose 50% (Syg)) 25 ml IVP AD PRN PRN Reason: Hypoglycemia Stop: 04/02/19 16:06 Docusate Sodium (Colace) 100 mg PO DAILY PRN; Protocol PRN Reason: Constipation Stop: 04/02/19 15:17 Fludrocortisone Acetate (Florinef) 0.1 mg PO DAILY [facility] Stop: 04/03/19 09:01 Last Admin: 10/02/18 10:07 Dose: 0.1 mg Gabapentin (Neurontin) 100 mg PO 0900,1500 [facility] Stop: 04/02/19 15:46 Last Admin: 10/02/18 10:05 Dose: 100 mg Gabapentin (Neurontin) 300 mg PO HS [facility] Stop: 04/02/19 21:01 Last Admin: 10/01/18 20:44 Dose: 300 mg Glucagon (Glucagen) 1 mg IM ONCE PRN PRN Reason: Hypoglycemia Stop: 04/02/19 16:06 Glucose (Gluctose) 15 gm PO ONCE PRN PRN Reason: Hypoglycemia Stop: 04/02/19 16:01 Glucose (Gluctose) 30 gm PO ONCE PRN PRN Reason: Hypoglycemia Stop: 04/02/19 16:06 Dextrose (Dextrose 5%) 1,000 mls @ 100 mls/hr IVC .Q10H PRN PRN Reason: HYPOGLYCEMIA Stop: 04/02/19 16:01 Insulin Detemir (Levemir) 20 unit SQ QAM [facility] Stop: 04/03/19 09:01 Last Admin: 10/02/18 10:19 Dose: 20 unit Insulin Human Lispro (Humalog) 0 units SQ HS [facility]; Protocol Stop: 04/02/19 21:01 Last Admin: 10/01/18 20:45 Dose: Not Given Insulin Human Lispro (Humalog) 0 units SQ TIDAC [facility]; Protocol Stop: 04/02/19 16:31 Last Admin: 10/02/18 12:02 Dose: Not Given Levothyroxine Sodium (Synthroid) 200 mcg PO DAILY@0630 [facility] Stop: 04/03/19 06:31 Last Admin: 10/02/18 05:19 Dose: 200 mcg Lisinopril (Zestril) 10 mg PO BID [facility]; Protocol Stop: 04/02/19 21:01 Last Admin: 10/02/18 10:07 Dose: 10 mg Metoprolol Tartrate (Lopressor) 12.5 mg PO BID [facility] Stop: 04/02/19 21:01 Last Admin: 10/02/18 10:06 Dose: 12.5 mg Multivitamins/Calcium (Thera M Plus) 1 tab PO DAILY [facility] Stop: 04/03/19 09:01 Last Admin: 10/02/18 10:19 Dose: 1 tab Naloxone HCl (Narcan) 0.4 mg IVP Q2MIN PRN PRN Reason: SEE COMMENTS Stop: 04/02/19 16:01 Nitroglycerin (Nitroglycerin) 0.4 mg SL Q5MIN PRN PRN Reason: Chest Pain Stop: 04/02/19 15:17 Omeprazole (Prilosec) 40 mg PO BIDAC [facility]; Protocol Stop: 04/02/19 16:31 Last Admin: 10/02/18 10:05 Dose: 40 mg Oxycodone/Acetaminophen (Percocet 10/325) 1 each PO Q6HR PRN PRN Reason: Moderate Pain Stop: 04/02/19 15:17 Last Admin: 10/01/18 20:49 Dose: 1 each Pharmacy Profile Note (Patient Taking Own Medication) 1 each PO DAILY [facility] Stop: 04/03/19 09:01 Last Admin: 10/02/18 10:07 Dose: Not Given Sertraline HCl (Zoloft) 100 mg PO DAILY [facility] Stop: 04/03/19 09:01 Last Admin: 10/02/18 10:07 Dose: 100 mg Tamsulosin HCl (Flomax) 0.4 mg PO DAILY [facility]; Protocol Stop: 04/03/19 09:01 Last Admin: 10/02/18 10:06 Dose: 0.4 mg Topiramate (Topamax) 50 mg PO [facility] Stop: 04/02/19 21:01 Last Admin: 10/01/18 20:45 Dose: 50 mg Trazodone HCl (Trazodone) 50 mg PO [facility] Stop: 04/02/19 21:01 Last Admin: 10/01/18 20:44 Dose: 50 mg Warfarin Sodium (Coumadin Perpt) 1 each PO DAILY@1800 PRN PRN Reason: SEE COMMENTS Stop: 04/02/19 18:01 Warfarin Sodium (Coumadin) 5 mg PO 1800 [facility] Stop: 10/02/18 18:01 - Imaging and Cardiology Echo: report reviewed Other Results: telemetry: avg HR=49 SB. No significant pause. - EKG Interpretation EKG results cardiology: personally reviewed Consult Discharge Plan - Plan Instructions: Levothyroxine (By mouth), Chest Pain (DC) Referrals: Tono Vizcaino MD [Partnered Physician] - (hospital follow up appointment has been requested. office will call with date and time of appointment. ) Peter Carlson MD [Primary Care Provider] - 10/08/18 9:45 am Prescriptions: RX: Levothyroxine [Synthroid] 200 mcg PO DAILY@0630 #30 tablet <Mary Ellen Quevedo - Last Filed: 10/02/18 16:04> Date of Encounter: 10/02/18 - Attending Attestation I have personally performed a face to face evaluation on this patient. I have reviewed and agree with the care plan. History and Exam by me shows: 78 YOM with extensive CAD hx s/p CABG 1999 with recent LHC and known occluded grafts and PCI to the distal CIRC. Patient with chest pain and borderline trops. Abnormal stress test possible CIRC ischemia. [facility] shows mod to severe Non obstructive CAD on [facility] 2016. R/B/A d/w patint and he agrees to proceed. [facility] when INR < 1.8 Assessment and Plan Discussion w patient/family: The assessment and plan as outlined above was discussed with the patient and/or family members who expressed understanding and agreement. All questions were answered. Thank you for involving us in the care of your patient. Please call with any questions. History of Present Illness History of present illness: Mr. Salmeron is a 78 year old male All Systems Review: The remainder of the systems were reviewed and are negative Results 10/02/18 00:26 10/02/18 00:26 Lab Results 10/01/18 10/01/18 10/02/18 11:58 17:30 00:26 WBC Hgb Hct Plt Count INR 3.0 Sodium 136 Potassium 5.0 Chloride 104 Carbon Dioxide 23 BUN 27 H Creatinine 1.15 Glucose 141 H Calcium 9.3 Troponin I < 0.03 < 0.03 TSH 54.900 H 10/02/18 10/02/18 10/02/18 00:26 00:26 00:26 WBC 4.6 Hgb 11.8 L Hct 38.3 Plt Count 194 INR Sodium 135 L Potassium 4.1 Chloride 105 Carbon Dioxide 23 BUN 23 Creatinine 1.18 Glucose 217 H Calcium 8.9 Troponin I < 0.03 TSH
--- NOTE | 2018-10-02 14:38 | Discharge Summary ---
- NOTES TO OUTPATIENT PROVIDER Notes to Outpatient Provider: Presented with chest pain reports of palpitations- underwent cardiac stress test which was abnormal found to have mild to small sized basal inferolateral defect cardiology was consulted abnormality on stress correlates with known coronary artery anatomy-no intervention at this time will follow-up with cardiology as outpatient-has some GERD symptoms would benefit from EGD as outpatient. TSH was high with low T4 will require close outpatient follow-up with PCP Synthroid was increased 200 g daily Orders not resulted at time of discharge: Pending orders 10/02/18 07:00 NM rich perf SPECT multi [NM] Routine 10/03/18 04:00 INR/PT [Prothrombin Time INR] [COAG] AM 0400 10/04/18 04:00 INR/PT [Prothrombin Time INR] [COAG] AM 0400 10/05/18 04:00 INR/PT [Prothrombin Time INR] [COAG] AM 0400 10/06/18 04:00 INR/PT [Prothrombin Time INR] [COAG] AM 0400 Date of Encounter: 10/02/18 Time of Encounter: 14:19 - Discharge Diagnosis (1) CAD (coronary artery disease) Priority: Secondary Status: Chronic Qualifiers: Coronary Disease-Associated Artery/Lesion type: bypass graft [place] vs. 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 (4) Headache Priority: Secondary Status: Acute Qualifiers: Headache type: unspecified Headache chronicity pattern: unspecified pattern Intractability: not intractable Qualified Code(s): R51 - Headache (5) HTN (hypertension) with goal to be determined Priority: Secondary Status: Acute (6) Postural hypotension Priority: Secondary Status: Acute (7) Chest pain Priority: Primary Status: Acute Qualifiers: Chest pain type: unspecified Qualified Code(s): R07.9 - Chest pain, unspecified (8) PAD (peripheral artery disease) Priority: Secondary Status: Acute (9) Hypothyroidism Priority: Secondary Status: Chronic Qualifiers: Qualified Code(s): E03.9 - Hypothyroidism, unspecified (10) Paroxysmal A-fib Priority: Secondary Status: Acute Hospital course: Mr. 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 He underwent a PCI distal circumflex in 08/2017 he presented to [place] [facility] with complaints of chest pain palpitations over the past several days-patient underwent a cardiac stress test that was abnormal was found to have a mild small sized basal inferolateral defect was seen by cardiology abnormality on stress correlates with known coronary anatomy recommending consideration of additional nitrates in [place] continues in the future and to continue home CAD medications. Patient has history of hypothyroid his TSH was 54 which might be contributing to his presenting symptoms Synthroid was increased to 200 g he will need further monitoring as an outpatient. Also patient has describes in GERD symptoms recommending follow-up as outpatient with EGD continue PPI. Currently patient denies any chest pain or shortness of breath patient was given a prescription for Synthroid advised patient follow with tassel snipper as well as primary care provider stenoses provider send this and can adjust medications accordingly. He is hemodynamically stable at this time is ready for discharge. - Time Spent with Patient Total time spent providing and/or coordinating discharge services: - Discharge Medications Prescriptions: Levothyroxine [Synthroid] 200 mcg PO DAILY@0630 #30 tablet Home Medications: Acetaminophen/Butalbital/Caffe [Fioricet] 1 tab PO DAILY PRN 05/14/17 [History] Aspirin Enteric Coated [Aspirin EC] 81 mg PO DAILY 08/17/17 [History] Atorvastatin Calcium [Lipitor] 80 mg PO HS 08/17/17 [History] Nitroglycerin 0.4 mg SL Q5MIN PRN #14 tab.subl 08/22/17 [Rx] BuPROPion XL (24 HR) [Wellbutrin Xl] 150 mg PO DAILY 12/16/17 [History] Cyclobenzaprine HCl 5 mg PO HS 12/16/17 [History] Ezetimibe [Zetia] 10 mg PO DAILY 12/16/17 [History] Sertraline [Zoloft] 100 mg PO DAILY 12/16/17 [History] Topiramate [Topamax] 50 mg PO HS 12/16/17 [History] amLODIPine [Norvasc] 5 mg PO DAILY 12/16/17 [History] OxyCODONE/APAP 10/325 [Percocet 10/325 MG] 1 each PO Q6HR PRN 14 Days #56 tablet 01/08/18 [Rx] Multivit-Min/FA/Lycopen/Lutein [Adults 50+ Multivitamin Tablet] 1 tab PO DAILY 02/25/18 [History] Trazodone HCl 50 mg PO HS 02/25/18 [History] Lisinopril [Zestril] 10 mg PO BID 03/28/18 [History] Omeprazole [PriLOSEC] 20 mg PO DAILY 03/28/18 [History] Tamsulosin HCl [Flomax] 0.4 mg PO DAILY 03/28/18 [History] Fludrocortisone Acetate [Florinef] 0.1 mg PO DAILY #5 tablet 04/18/18 [Rx] Docusate [Colace] 100 mg PO DAILY PRN #30 capsule 05/16/18 [Rx] Gabapentin [Neurontin] 300 mg PO HS 09/04/18 [History] Warfarin [Coumadin] 7.5 mg PO SUMOWETHFR 09/04/18 [History] Warfarin [Coumadin] 10 mg PO TUSA 09/04/18 [History] Metoprolol [Lopressor] 12.5 mg PO BID 30 Days #60 tablet 09/07/18 [Rx] Butalbital/Acetaminophen [Butalbital-Acetaminophn 50-325] 1 tab PO DAILY PRN 10/01/18 [History] Gabapentin [Neurontin] 100 mg PO BID 10/01/18 [History] Insulin Glargine [Lantus] 20 unit SQ QAM 10/01/18 [History] Metformin HCl [Metformin HCl ER] 1,000 mg PO QPM 10/01/18 [History] Levothyroxine [Synthroid] 200 mcg PO DAILY@0630 #30 tablet 10/02/18 [Rx] Allergies/Adverse Reactions: Allergy/AdvReac Type Severity Reaction Status Date / Time No Known Allergies Allergy Verified 07/30/18 14:14 Date of admission: 10/01/18 13:27 Primary care physician: Peter Carlson MD Consults: 10/02/18 10:26 Consult to Cardiology [CONS] Routine Comment: Consulting Provider: Cardiology Paula Reason for Consult: positive stress Call Completed: Yes - Constitutional Vitals: Temp Pulse Resp BP Pulse Ox 98.1 F 54 16 123/57 98 10/02/18 11:29 10/02/18 11:29 10/02/18 11:29 10/02/18 11:29 10/02/18 11:29 General appearance: Present: A&O X 3 Exam: PHYSICAL EXAMINATION: GENERAL: 78 male, NAD, and O 3 HEENT: Head is normocephalic and atraumatic. EOMI, PERRLA NECK: Supple. No carotid bruits. No lymphadenopathy or thyromegaly. Stoma LUNGS: Clear to auscultation B/L AP and L. HEART: Bradycardic rate and regular rhythm, S1, S2 without murmur. ABDOMEN: Soft and nondistended. Positive bowel sounds. No hepatosplenomegaly was noted. Epigastric tenderness EXTREMITIES: Without any cyanosis, clubbing, rash, lesions or edema. NEUROLOGIC: Cranial nerves II through XII are grossly intact. PSYCHIATRIC: Appropriate affect, denies SI/HI, without agitation or anxiety SKIN: No ulceration or induration present. - Head Head exam: Present: atraumatic, normocephalic - Eye Eye exam: Present: PERRL, conjuntiva pink, sclera anicteric Pupils: Present: PERRL - Neck Neck exam general surgery: Present: supple, trachea midline. Absent: lymphadenopathy - Respiratory Respiratory exam: Present: CTAB. Absent: accessory muscle use, rales, rhonchi, wheezes - Cardiovascular Cardiovascular exam: Present: RRR, +S1, +S2. Absent: diastolic murmur, gallop, rubs, systolic murmur - GI/Abdominal GI/Abdominal exam: Present: normal bowel sounds, soft, no peritoneal signs. Absent: distended, tenderness - Extremities Exam Extremities exam: Present: warm, radial pulses palpable and symmetrical. Absent: calf tenderness, cyanotic, pedal edema - Neurological Exam Neurological exam: Present: CN II-XII intact, oriented X3, no focal deficits. Absent: pronater drift, facial droop, speech deficit - Patient Status Disposition: Home, Self-Care Condition: Good Functional capacity at discharge: independent ambulation Overall status at discharge: patient is back to baseline - Discharge Instructions Instructions: Chest Pain (DC) Follow Up With: Peter Carlson MD [Primary Care Provider] - - Diet and Activity Activity: resume usual activities as tolerated
--- NOTE | 2018-10-02 15:52 | Event Note ---
Date of Encounter: 10/02/18 Time of Encounter: 15:52 Patient had been seen and examined by cardiology was notified by cardiology DIRECTOR OF SUSTAINABLE DESIGN the patient could be discharged home and follow-up as an outpatient. However was later notified by cardiology patient is to remain in the hospital and will undergo a heart catheter once INR around 1.8-I will hold Coumadin tonight and recheck INR in the morning. I did discuss treatment plan with the patient and family who are bedside and both verbalized understanding
[2018-10-02] MEDS: Acetaminophen/Butalbital/CaffeineTABLET PO PRN (16:18)
[2018-10-02] MEDS: (Ezetimibe [Zetia] 10 MG) PO SCH (16:19)
[2018-10-02] MEDS ORDERED: *HR* Warfarin 5 MG TABLET PO ONE (18:00)
[2018-10-02] MEDS: Topiramate 25 MG TABLET PO SCH (20:51)
[2018-10-02] MEDS: traZODone 50 MG TABLET PO SCH (20:51)
[2018-10-02] MEDS: Gabapentin 300 MG CAPSULE PO SCH (20:51)
[2018-10-03 05:45] LABS: INR 2.7; Prothrombin Time 30.4 Seconds (9.4-12.1)
[2018-10-03] MEDS: Aspirin Enteric Coated 81 MG Tablet PO SCH (08:17)
[2018-10-03] MEDS: BuPROPion XL (24 HR) 150 MG TABLET PO SCH (08:17)
[2018-10-03] MEDS: Multivit/Ca/Min/Fe/FA 1 TAB TABLET PO SCH (08:17)
[2018-10-03] MEDS: Gabapentin 100 MG CAPSULE PO SCH ×2 (08:17→17:28)
[2018-10-03] MEDS: amLODIPine 5 MG TABLET PO SCH (08:17)
[2018-10-03] MEDS: Insulin LISPRO 300 UNITS/3 ML VIAL SQ SCH ×4 (08:18→21:17)
[2018-10-03] MEDS: Insulin DETEMIR 100 UNIT/ML X5UNITS SQ SCH (08:29)
[2018-10-03] MEDS: (Ezetimibe [Zetia] 10 MG) PO SCH (08:29)
--- NOTE | 2018-10-03 10:11 | Cardiology Progress Note ---
Date of Encounter: 10/03/18 Time of Encounter: 09:30 Assessment and Plan (1) Chest pain Current Visit: No Status: Acute 78 year old male with significant h/o CAD with c/o ongoing chest pain symptoms. He is noted to have bradycardia with HRs int he 50-60's--likely secondary to hypothyroidism, TSH 54. Troponin negative x3; no acute ST/T wave abnormalities. Abnormal stress test 10/02/18--found to have mild, small sized basal inferolateral defect. SDS=3, gated EF=70%. Of note, abnormality on stress correlates with known coronary anatomy; SVG to OM1 occluded. SVG to RPDA occluded. Due to ongoing chest pain concerning for angina LHC is recommended for evaluation when INR less than 1.8. Discussed with Dr. Quevedo, will give vitamin K this evening. Plan to start heparin gtt once INR less than 2.0. Will start imdur for recurrent chest pain. Contine asa, statin, and bb. NPO after midnight. Qualifiers: Chest pain type: unspecified Qualified Code(s): R07.9 - Chest pain, unspecified (2) CAD (coronary artery disease) Current Visit: No Status: Chronic Plan as above. H/o 3V CABG and 4 cardiac stents. Continue home CV medications. Qualifiers: Coronary Disease-Associated Artery/Lesion type: bypass graft [place] vs. transplanted heart: [place] heart Associated angina: with stable angina Qualified Code(s): I25.708 - Atherosclerosis of coronary artery bypass graft(s), unspecified, with other forms of angina pectoris (3) Atrial fibrillation Current Visit: No Status: Chronic Hx of PAF, continue BB as HR will tolerate. AVg HR 69 BPM over 24 hours. NSR with PVC. Continue coumadin for AC. Qualifiers: Atrial fibrillation type: paroxysmal Qualified Code(s): I48.0 - Paroxysmal atrial fibrillation (4) Hypothyroidism Current Visit: No Status: Chronic TSH 54, likely influencing bradycardia and presenting symptoms. Of note, labile TSH levels over the past 6 months. Close outpatient follow-up with PCP. Qualifiers: Hypothyroidism type: unspecified Qualified Code(s): E03.9 - Hypothyroidism, unspecified Discussion w patient/family: The assessment and plan as outlined above was discussed with the patient and/or family members who expressed understanding and agreement. All questions were answered. Thank you for involving us in the care of your patient. Please call with any questions. Subjective Principal diagnosis: Chest pain, abnormal stress Interval history: Pt c/o chest pain last night lasting few min. He did not take anything to relieve his pain. He is currently pain free. Objective Vital Signs, Last 4 Hours Temp Pulse Resp BP Pulse Ox 10/03/18 06:53 98.0 F 52 18 126/61 93 General: Conversant, No Apparent Distress HEENT: Atraumatic, Normocephaly, Mucus Membranes Moist Neck: No JVD, Normal carotid pulses Cardiac: Reg Rate and Rhythm, Normal S1 and S2, No Murmur, Other (Midsternal incisional scar noted) Lungs: Normal Breath Sounds, No Wheeze, Rales, Rhonchi Neuro: Alert and responsive, No focal deficits noted Abdomen: Soft, Non-Tender Skin: No rashes noted on visualized skin Musculoskeletal: No Chest Wall Tenderness Extremities: No Clubbing, No Cyanosis, No Edema, Normal Pulses Results 10/02/18 00:26 10/02/18 00:26 Lab Results 10/03/18 05:19 INR 2.7 - Imaging and Cardiology Echo: report reviewed Cardiac cath: report reviewed - EKG Interpretation EKG results cardiology: personally reviewed Consult Discharge Plan - Plan Instructions: Levothyroxine (By mouth), Chest Pain (DC) Referrals: Tono Vizcaino MD [Partnered Physician] - (hospital follow up appointment has been requested. office will call with date and time of appointment. ) Peter Carlson MD [Primary Care Provider] - 10/08/18 9:45 am Prescriptions: Levothyroxine [Synthroid] 200 mcg PO DAILY@629 #30 tablet
[2018-10-03] MEDS: Isosorbide MONOnitrate (24 HR) 30 MG TAB.ER.24H PO SCH (11:04)
[2018-10-03 11:20] LABS: Hematocrit 39.1 % (37.5-50.1); Mean Corpuscular HGB Conc 30.7 g/dL (31.6-35.5); Mean Corpuscular Hemoglobin 27.3 pg (28.0-33.3); Mean Corpuscular Volume 89.1 fL (83.0-100.0); Mean Platelet Volume 9.8 fL (9.4-12.4); Platelet Count 201 K/mcL (140-400); Red Blood Count 4.39 M/mcL (4.19-5.50); Red Cell Distribution Width 14.6 % (11.5-14.5)
--- NOTE | 2018-10-03 11:23 | Internal Med Progress Note ---
Hospitalist Progress Note - Encounter Date of Encounter: 10/03/18 Time of Encounter: 11:23 - Subjective Interval History: Patient seen and examined at bedside- did experience some intermittent CP this am. Monitoring INR for cath - currently 2.7- INR needs to be less than 1.8 - Exam Vitals: Temp Pulse Resp BP Pulse Ox 98.0 F 52 18 126/61 93 10/03/18 06:53 10/03/18 06:53 10/03/18 06:53 10/03/18 06:53 10/03/18 06:53 Exam: PHYSICAL EXAMINATION: GENERAL: 78 male, NAD, and O 3 HEENT: Head is normocephalic and atraumatic. EOMI, PERRLA NECK: Supple. No carotid bruits. No lymphadenopathy or thyromegaly. Stoma LUNGS: Clear to auscultation B/L AP and L. HEART: Bradycardic rate and regular rhythm, S1, S2 without murmur. ABDOMEN: Soft and nondistended. Positive bowel sounds. No hepatosplenomegaly was noted. Epigastric tenderness EXTREMITIES: Without any cyanosis, clubbing, rash, lesions or edema. NEUROLOGIC: Cranial nerves II through XII are grossly intact. PSYCHIATRIC: Appropriate affect, denies SI/HI, without agitation or anxiety SKIN: No ulceration or induration present. - Assessment and Plan (1) Chest pain Current Visit: No Status: Acute Assessment and Plan: Atypical chest pain presentation Initial troponin negative EKG in the ED without ST-T wave changes concerning for ischemia CAD Risk prior IN, PVD, CAD, DM, HTN, HLD , former smoker PLAN: - cardiac enzymes x 2 q 6 hr - EKG now and in AM - ASA, continue anti-HTN meds - Heparin 5000 U SQ BID - Refrain from ordering 2D Echo had one in 05/02-salt as follows- --- EF 60%, mild LVH, mild LVDD, mild MR, mild-moderate TR, mild PHTN - Stress test in the morning - Cardiac/diabetic diet now - Nothing by mouth after midnight - Continuous telemetry 10/03 Had abnormal stress test 10/02/18--found to have mild, small sized basal inferolateral defect. SDS=3, gated EF=70%. Of note, abnormality on stress correlates with known coronary anatomy; SVG to OM1 occluded. SVG to RPDA occluded. Due to ongoing chest pain LHC recommended by cardiology - on coumadin currently INR 2.7- needs to be 1.8- cardiology giving vit K and starting on Hep gtt once INR less than 2 - Cont ASA statin BB NPO after midnight (2) CAD (coronary artery disease) Current Visit: No Status: Chronic Assessment and Plan: Continue cardiac meds (3) Diabetes Current Visit: No Status: Chronic Assessment and Plan: Continue basal insulin and sliding scale coverage (4) Nasopharyngeal cancer Current Visit: No Status: Chronic Assessment and Plan: Follows with [facility] (5) Headache Current Visit: No Status: Acute Assessment and Plan: Tylenol as needed- resolved at this time (6) HTN (hypertension) with goal to be determined Current Visit: No Status: Acute Assessment and Plan: Resume anti-HTN meds monitor (7) Postural hypotension Current Visit: No Status: Acute Assessment and Plan: Continue fludrocortisone (8) PAD (peripheral artery disease) Current Visit: No Status: Acute (9) Hypothyroidism Current Visit: No Status: Chronic (10) Paroxysmal A-fib Current Visit: No Status: Acute - Time Spent with Patient Total time spent is greater than 50% in coordination of care (as documented) at patient's floor/unit and/or counseling patient: Internal Medicine: Result - Labs CBC & Chem 7: 10/03/18 11:10 10/02/18 00:26 - ABG Interpretation ABG results: PT/INR, D-dimer PT 30.4 Seconds (9.4-12.1) H 10/03/18 05:19 Consult Discharge Plan - Plan Instructions: Levothyroxine (By mouth), Chest Pain (DC) Referrals: Tono Vizcaino MD [Partnered Physician] - (hospital follow up appointment has been requested. office will call with date and time of appointment. ) Peter Carlson MD [Primary Care Provider] - 10/08/18 9:45 am Prescriptions: Levothyroxine [Synthroid] 200 mcg PO DAILY@0630 #30 tablet (1) Chest pain Qualifiers: Chest pain type: unspecified Qualified Code(s): R07.9 - Chest pain, unspecified (2) CAD (coronary artery disease) Qualifiers: Coronary Disease-Associated Artery/Lesion type: bypass graft [place] vs. 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
[2018-10-03] MEDS ORDERED: *HR* Phytonadione 5 MG TABLET PO ONE (18:00)
[2018-10-03] MEDS ORDERED: *HR* Warfarin 7.5 MG TABLET PO ONE (18:00)
[2018-10-03] MEDS: Gabapentin 300 MG CAPSULE PO SCH (21:17)
[2018-10-03] MEDS: Topiramate 25 MG TABLET PO SCH (21:17)
[2018-10-03] MEDS: traZODone 50 MG TABLET PO SCH (21:17)
[2018-10-03] MEDS: *HR* OxyCODONE/APAP 10/325 TABLET PO PRN (21:25)
[2018-10-04] MEDS ORDERED: Heparin 25,000 UNIT/500 ML D5W 25,000 UNIT/500 ML BAG IVC SCH (00:01)
[2018-10-04] MEDS ORDERED: *HR* Heparin 5,000 UNIT/ML VIAL IVP PRN ×2 (00:01)
[2018-10-04] MEDS ORDERED: *HR* Heparin 5,000 UNIT/ML VIAL IVP ONE (00:01)
[2018-10-04 01:27] LABS: BUN/Creatinine Ratio 30 (6-26); Blood Urea Nitrogen 41 mg/dL (8-23); Calcium 8.7 mg/dL (8.6-10.3); Carbon Dioxide 25 mEq/L (23-29); Chloride 103 mEq/L (98-107); Glucose 143 mg/dL (70-105); Osmolality,Calculated 289 (280-300); Potassium 4.6 mEq/L (3.5-5.1); Sodium 133 mEq/L (136-145); eGFR For Non-African Americans 51 (> 60)
[2018-10-04 01:31] LABS: Heparin anti-factor XA UFH 0.01 IU/mL (0.30-0.70); INR 1.9; Prothrombin Time 21.5 Seconds (9.4-12.1)
[2018-10-04 02:48] LABS: Basophils % 0.3 %; Eosinophils # 0.6 K/mcL (0.0-0.6); Eosinophils % 7.8 %; Hematocrit 32.8 % (37.5-50.1); Hemoglobin 10.3 g/dL (12.9-16.9); Immature Granulocytes % 0.1 % (0-4); Lymphocytes # 1.6 K/mcL (0.6-4.6); Lymphocytes % 21.2 %; Mean Corpuscular HGB Conc 31.4 g/dL (31.6-35.5); Mean Corpuscular Hemoglobin 27.5 pg (28.0-33.3); Mean Corpuscular Volume 87.7 fL (83.0-100.0); Mean Platelet Volume 9.8 fL (9.4-12.4); Monocytes # 0.6 K/mcL (0.0-1.3); Monocytes % 8.2 %; Neutrophils # 4.7 K/mcL (1.6-8.9); Platelet Count 172 K/mcL (140-400); Red Blood Count 3.74 M/mcL (4.19-5.50); Red Cell Distribution Width 14.6 % (11.5-14.5); Segmented Neutrophils % 62.4 %
[2018-10-04] MEDS: Insulin LISPRO 300 UNITS/3 ML VIAL SQ SCH ×4 (09:16→21:50)
[2018-10-04 09:31] LABS: Heparin anti-factor XA UFH 0.01 IU/mL (0.30-0.70)
[2018-10-04] MEDS: Isosorbide MONOnitrate (24 HR) 30 MG TAB.ER.24H PO SCH (09:59)
[2018-10-04] MEDS: Gabapentin 100 MG CAPSULE PO SCH ×2 (09:59→15:08)
[2018-10-04] MEDS: BuPROPion XL (24 HR) 150 MG TABLET PO SCH (09:59)
[2018-10-04] MEDS: Multivit/Ca/Min/Fe/FA 1 TAB TABLET PO SCH (09:59)
[2018-10-04] MEDS: Aspirin Enteric Coated 81 MG Tablet PO SCH (09:59)
[2018-10-04] MEDS: (Ezetimibe [Zetia] 10 MG) PO SCH (10:00)
--- NOTE | 2018-10-04 10:20 | Event Note ---
Date of Encounter: 10/04/18 Time of Encounter: 10:18 - Cardiology Event Note INR 1.9 this am, will re-check INR now. Preferably INR should be less than 1.8. Keep NPO for LHC.
[2018-10-04] MEDS: Insulin DETEMIR 100 UNIT/ML X5UNITS SQ SCH (10:22)
[2018-10-04] MEDS: amLODIPine 5 MG TABLET PO SCH (10:22)
[2018-10-04 11:11] LABS: INR 1.6; Prothrombin Time 18.4 Seconds (9.4-12.1)
[2018-10-04] MEDS ORDERED: *HR* Heparin 10,000 UNIT/10 ML VIAL ONE (16:14)
[2018-10-04] MEDS ORDERED: Heparin 1,000 UNITS/500 mL 500 ML ONE (16:14)
[2018-10-04] MEDS ORDERED: ISOVUE-370 200 ML INFUS..BTL ONE (16:14)
[2018-10-04] MEDS ORDERED: 0.9 % Sodium Chloride 1,000 ML ONE ×2 (16:15)
[2018-10-04] MEDS ORDERED: Nitroglycerin 1,000 MCG/10 ML VIAL IV ONE (16:15)
--- NOTE | 2018-10-04 16:32 | Pre-Sedation Evaluation ---
Pre-sedation evaluation - Pre-sedation checklist Date of procedure: 10/04/18 Procedure: Left heart cath Recent Vitals: Last Vital Signs Temp 97.7 F 10/04/18 15:20 Pulse 52 10/04/18 15:20 Resp 16 10/04/18 15:20 BP 95/51 10/04/18 15:20 Pulse Ox 98 10/04/18 15:20 H&P (including ROS) documented in medical record: Yes Previous reaction to sedatives/anesthetics: No Dietary Status: NPO after Midnight Airway Assessment: Neck with adequate range of motion Dentition: No loose teeth or bridges Possible difficult airway: Yes ASA Classification *see protocol: CLASS IV-Severe systemic disease/constant threat to pt's life (PT has functioning trach.)
[2018-10-04] MEDS ORDERED: *HR* Midazolam HCl 2 MG/2 ML VIAL ONE ×2 (16:33→16:41)
[2018-10-04] MEDS ORDERED: 0.9 % Sodium Chloride 1,000 ML IVC SCH (17:30)
--- NOTE | 2018-10-04 17:43 | Invasive Diagnostic Lab Proc ---
Name: Jordi Salmeron Date of Study: 10/04/2018 Date: 1940 Ht: 68.9in Medical Record#: [id number] Age: 78 Wt: 180.78lb Gender: Male BSA: 1.98 Order #: [id number] BMI: 26.78 Physicians Procedure Physician: Hany Parekh DO Referring MD: Referring MD: Staff Name Position Time In Denzel Palacio RN Claims Examiner 04:32 PM Colleen Dietz RT (R) Monitor 04:32 PM Chasidy Plasencia RT Scrub 04:32 PM Indications Indication Unstable Angina Procedures Performed Procedure L HRT ART/GRFT ANGIO Pre-Procedure Checklist Informed consent is complete signed and on chart. H&P is on chart. ID band is on and ID verified with patient. Patient NPO for procedure The procedure was described for the patient and questions were answered. Blood Pressure: 98/48 ECG is on chart. Plan of Care Patient will tolerate the procedure without complications. Adequate level of comfort will be maintained. Hemodynamics will remain stable Patient will recover from procedure without complications. Respiratory function will be maintained. Cardiac rhythm will remain stable. Patient temperature will be maintained. Patient and/or family have verbalized understanding of the procedure. Patient Education Chief Complaint/Reason for Test: Cardiac Cath Developmental Category: Geriatric (65+ years) Developmentally Appropriate for Age: Yes Learning Barriers: None Education Needs: Procedure Education Method: Verbal Information Taught: Cardiac Cath Educational Evaluation: Able to repeat information Intravenous Access Time IV Size Location DC'd Fluid/Drip Rate Units RN 04:25 PM 20g 1 1/4" Patent On Arrival Left upper arm 0.9NaCl 25 ml/hr Denzel Palacio RN Allergies No Known Allergies Vital Signs Time BP (mmHg) HR (bpm) O2 Sat. RR (bpm) LOC 04:25 PM 98 / 48 55 94 % 18 5 = Fully awake and oriented or at pre-proc level 04:40 PM / % 5 = Fully awake and oriented or at pre-proc level 04:40 PM / % 4 = Oriented but drowsy 04:56 PM / % 4 = Oriented but drowsy 05:11 PM / % 4 = Oriented but drowsy 04:33 PM 121 / 69 54 93 % 04:38 PM 139 / 65 50 98 % 19 04:43 PM 127 / 66 48 100 % 19 04:48 PM 102 / 51 55 100 % 21 04:53 PM 97 / 51 51 99 % 18 04:58 PM 103 / 50 50 99 % 17 05:03 PM 95 / 52 62 98 % 17 05:08 PM 100 / 46 53 99 % 18 05:13 PM 95 / 47 47 99 % 18 05:18 PM 86 / 46 48 98 % 18 05:24 PM 108 / 55 49 99 % 16 Procedural Medications Time Medication Dose Units Method Given By 04:33 PM Oxygen 2 L/min Oxy Mask Denzel Palacio RN 04:47 PM Versed 2 mg Intravenous Denzel Palacio RN 04:48 PM Lidocaine 2% 10 ml Subcutaneous Hany Parekh DO 04:49 PM Oxygen 10 L/min Oxy Mask Denzel Palacio RN 04:52 PM Lidocaine 2% 10 ml Subcutaneous Hany Parekh DO ASA Classification: CLASS IV- Severe systemic that is constant threat to patient's life Sherry Score Preprocedure Postprocedure Activity 2- Moves 4 extremities sustained head lift Activity 2- Moves 4 extremities sustained head lift Circulation 2- SBP +/= 20 points of pre-anesthetic level Circulation 2- SBP +/= 20 points of pre-anesthetic level Consciousness 2- Awake and alert oriented x 3 Consciousness 1- Responds to verbal stimuli drowsy O2 Saturation 2- Able to maintain O2 satruation of 92% on room air O2 Saturation 1- Needs O2 inhalation to maintain O2 saturation of 90% Respiratory 2- Able to deep breathe and cough well Respiratory 2- Able to deep breathe and cough well Total Score 10 Total Score 8 Contrast Agent: Isovue Diagnostic Contrast: 130 ml Total Contrast: 130 ml Procedure Log Time Note Enter By 04:31 PM CathStat 04:32 PM Pt arrived to laborer salvage 1 at 16:32 04:32 PM Denzel Palacio RN Position: Claims Examiner Time in: 16:32 04:32 PM Colleen Dietz RT (R) Position: Monitor Time in: 16:32 04:32 PM Vitals capture started with the following parameters, Patient=Adult, Interval=5 min, Initial Ytsjblhy=688 mmHg, Deflation Rate=3 mmHg, Cuff placed on Right Arm 04:32 PM Chasidy Plasencia RT Position: Scrub Time in: 16:32 04:33 PM Patient charges- Angio tray pack, Navilyst 3mm J, Pulse Oximetry and ACIST tubing and transducer :33 PM Physician arrived 16:33 :33 PM Meet and greet completed : PM Sign in performed according to hospital policy. Informed consent was obtained. :33 PM Procedure start 16:33 :33 PM Case Start 04:33 PM HR=54 bpm, PNWC=255/69 mmhg, SpO2=93.0 %, Comment=[place] :33 PM Time: 16:33 Oxygen on at 2 L/min per Oxy Mask by Denzel Palacio RN 04:38 PM ASA Class CLASS IV- Severe systemic that is constant threat to patient's life dspell:38 PM HR=50 bpm, KSNZ=715/65 mmhg, SpO2=98.0 %, Resp=19 B/min, Comment=[place] 04:39 PM Hair removed from procedure site in holding area using clippers. Bilateral groin prepped with Chloraprep by Denzel Palacio RN, then patient was draped. Skin intact. :40 PM Time: 16:40 Patient comfortable and pain free: Yes :40 PM Time: 16:40LOC: 5 = Fully awake and oriented or at pre-proc level dsp:43 PM HR=48 bpm, NKNL=702/66 mmhg, IhY2=267.0 %, Resp=19 B/min, Comment=[place] 04:46 PM [ Start or Stop Vital ] 04:46 PM Pressure channel 1 zeroed. 04:47 PM Pressure channel 2 zeroed. 04:47 PM Time: 16:47 Versed 2 mg Intravenous Given by Denzel Palacio RN :47 PM Time out was performed according to hospital policy. Conscious sedation and anesthesia was achieved (see medication log with in this report above) 04:47 PM Clinical Presentation: Unstable angina :48 PM Time: 16:48 10 ml Lidocaine 2% to right groin Subcutaneous Given by Hany Parekh DO 04:48 PM HR=55 bpm, DJDH=644/51 mmhg, IeD4=248.0 %, Resp=21 B/min, Comment=[place] 04:49 PM Time: 16:49 Oxygen on at 10 L/min per Oxy Mask by Denzel Palacio RN 04:51 PM setting up for access to the left groin. stated "too much scar tissue in right groin." :52 PM Time: 16:52 10 ml Lidocaine 2% to left groin Subcutaneous Given by Hany Parekh DO :53 PM HR=51 bpm, NIBP=97/51 mmhg, SpO2=99.0 %, Resp=18 B/min, Comment=[place] 04:54 PM Micro-Introducer Kit utilized for sheath placement :56 PM Time: 16:40 Patient comfortable and pain free: Yes 56 PM Time: 16:40LOC: 4 = Oriented but drowsy dspell:57 PM Pt has Aortic/ bilateral iliac stents along with coiling in the right groin. :58 PM HR=50 bpm, CBKP=881/50 mmhg, SpO2=99.0 %, Resp=17 B/min, Comment=[place] 04:59 PM Access obtained by percutaneous puncture. 6Fr 10cm Terumo [place] sheath placed in left Femoral artery. [id number] :59 PM 0.035 260cm Amplatz Super Stiff wire wire [id number] ell 05:00 PM 6Fr FR 4 catheter inserted over the wire [facility] 05:00 PM Recorded Pressure: LV, HR=55, Condition=Condition 1 (Left Ventricle) LV 51/-4/-1 05:00 PM Recorded Pressure: LV, Ao, HR=52, Condition=Condition 1 (Left Ventricle) LV 58/15/11, (Aorta) Ao 81/22/49 05:01 PM Recorded Pressure: Ao, HR=54, Condition=Condition 1 (Aorta) Ao 81/35/54 05:01 PM Catheter crossed the aortic valve and was selectively placed in the left ventricle. Pressures recorded on pullback for left heart catheterization. dspell 05:01 PM Bolus angiogram of left Ventricle complete: 10 ml/sec for a total of 10 mls dspellman 05:01 PM RCA angiography performed in multiple views. dspell 05:01 PM Recorded Pressure: Ao, HR=51, Condition=Condition 1 (Aorta) Ao 84/53/63 05:02 PM Recorded Pressure: Ao, HR=52, Condition=Condition 1 (Aorta) Ao 79/34/50 05:03 PM SVG to the RPDA angio performed in multiple views. dspell 05:03 PM HR=62 bpm, NIBP=95/52 mmhg, SpO2=98.0 %, Resp=17 B/min, Comment=[place] 05:04 PM Left WEST to the chest wall angio performed in multiple views. dspell 05:05 PM Catheter removed dspell 05:06 PM 6Fr FL 4 catheter inserted over the wire DNC dspell 05:06 PM LCA angiography performed in multiple views. dspell 05:08 PM Recorded Pressure: Ao, HR=46, Condition=Condition 1 (Aorta) Ao 89/36/54 05:08 PM HR=53 bpm, SANJ=917/46 mmhg, SpO2=99.0 %, Resp=18 B/min, Comment=[place] 05:08 PM Catheter removed dspell 05:08 PM 5Fr LCB catheter inserted over the wire [id number] dspell 05:11 PM Time: 16:56 Patient comfortable and pain free: Yes 05:11 PM Time: 16:56LOC: 4 = Oriented but drowsy dspell 05:11 PM Bolus angiogram of Aortic root complete: 5 ml/sec for a total of 10 mls dspell 05:12 PM Catheter removed 05:13 PM Coronary Dominance: right dsp 05:13 PM HR=47 bpm, NIBP=95/47 mmhg, SpO2=99.0 %, Resp=18 B/min, Comment=[place] 05:14 PM Procedure completed at 17:14 10/04/2018 05:16 PM Sign out completed: Radiation Dose 647.13 mGy, Fluoro Time: 4.5 Isovue 370 - 200ml contrast 130 ml given by Hany Parekh DO. Complications: None. The patient was discharged out of the blood and plasma laboratory assistant in stable condition. Cardiac Rehab Consult needed: YesConfirmed administered medications: Yes :16 PM Isovue 370 - 200ml,1 Bottle(s) used. 05:16 PM Arterial sheath pulled using manual compression and V+ Pad for 15 minutes by Chasidy Plasencia RT :16 PM Estimated Blood Loss: minimal dspellman 05:16 PM Post ECG Sinus Bradycardia dspell 05:16 PM Post Blood Pressure 95/47 dspell 05:16 PM Information taught Cardiac Cath dspell 05:17 PM Education needs Procedure, Plan of Care, and Responsibilities of Patient in Care dspell 05:17 PM Learning barriers :None dsp 05:17 PM Education Methods Verbal dspell 05:17 PM Education evaluation Able to repeat information dspell 05:18 PM Family placed in consult room. 05:18 PM Complications: None dsp 05:18 PM HR=48 bpm, NIBP=86/46 mmhg, SpO2=98.0 %, Resp=18 B/min, Comment=[place] 05:19 PM Lesion found in Proximal RCA. Pre Stenosis: 100 Pre ES Flow: 0: No Flow/No perfusion dsp 05:21 PM Report given to Rosie TORIBIO Pt taken to Room #52. 17:20 dspell 05:21 PM Lesion found in Mid LAD. Pre Stenosis: 100 Pre ES Flow: dspell 05:21 PM Lesion found in Mid Circumflex. Pre Stenosis: 50 Pre ES Flow: dspell 05:21 PM Lesion found in Distal Circumflex. Pre Stenosis: 100 Pre ES Flow: dspell 05:21 PM Lesion found in 1st Marginal. Pre Stenosis: 50 Pre ES Flow: ell 05:22 PM Did you address ES flow and Dominance? Yes 05:24 PM HR=49 bpm, SXXP=811/55 mmhg, SpO2=99.0 %, Resp=16 B/min 05:26 PM Time: 17:11 Patient comfortable and pain free: Yes dsp 05:26 PM Time: 17:11LOC: 4 = Oriented but drowsy dspell 05:27 PM Site status No bleeding/hematoma - Lt Groin as reported by Chasidy Plasencia RT at 17:27 dspell 05:27 PM Opsite applied dspell 05:28 PM Patient out of room: 17:28 dspell Complications Complication None None Hemodynamics Pressures Site Systolic/A Wave Diastolic/V Wave Mean LV 51 -4 -1 LV 58 15 11 AO 81 22 49 AO 81 35 54 AO 84 53 63 AO 79 34 50 AO 89 36 54 Post Procedure Information Blood Pressure: 95/47 mmHg Rhythm: Sinus Bradycardia Post procedural instructions were given Closure Device Time Device Success/Fail 10/04/2018 5:23:00 PM Mechanical Compression Successful Site Checks Time Location Status Staff Sheath In? Note 05:27 PM Lt Groin No bleeding/hematoma Chasidy Plasencia RT Pulses Time Site Pre-Procedure Post-Procedure Note 10/04/2018 4:25:00 PM Bilateral DP & PT 2+ 10/04/2018 4:25:00 PM Bilateral radial 2+ Updated by Colleen Dietz, RT (R) on 10/04/2018 5:33:37 PM Colleen Dietz RT electronically signed on 10/04/2018 5:34:10 PM with status of Final
[2018-10-04] MEDS ORDERED: *HR* Warfarin 7.5 MG TABLET PO ONE (18:40)
--- NOTE | 2018-10-04 19:02 | Internal Med Progress Note ---
Hospitalist Progress Note - Encounter Date of Encounter: 10/04/18 Time of Encounter: 11:00 - Subjective Interval History: Patient seen and examined at bedside- did experience some intermittent CP this am. Monitoring INR for cath - currently 2.7- INR needs to be less than 1.8 - Exam Vitals: Temp Pulse Resp BP Pulse Ox 98.3 F 46 18 103/46 93 10/04/18 18:30 10/04/18 18:30 10/04/18 18:30 10/04/18 18:30 10/04/18 18:30 Exam: PHYSICAL EXAMINATION: GENERAL: 78 male, NAD, and O 3 HEENT: Head is normocephalic and atraumatic. EOMI, PERRLA NECK: Supple. No carotid bruits. No lymphadenopathy or thyromegaly. Stoma LUNGS: Clear to auscultation B/L AP and L. HEART: Bradycardic rate and regular rhythm, S1, S2 without murmur. ABDOMEN: Soft and nondistended. Positive bowel sounds. No hepatosplenomegaly was noted. Epigastric tenderness EXTREMITIES: Without any cyanosis, clubbing, rash, lesions or edema. NEUROLOGIC: Cranial nerves II through XII are grossly intact. PSYCHIATRIC: Appropriate affect, denies SI/HI, without agitation or anxiety SKIN: No ulceration or induration present. - Assessment and Plan (1) Chest pain Current Visit: No Status: Acute Assessment and Plan: Atypical chest pain presentation Initial troponin negative EKG in the ED without ST-T wave changes concerning for ischemia CAD Risk prior CO, PVD, CAD, DM, HTN, HLD , former smoker PLAN: - cardiac enzymes x 2 q 6 hr - EKG now and in AM - ASA, continue anti-HTN meds - Heparin 5000 U SQ BID - Refrain from ordering 2D Echo had one in 05/02-salt as follows- --- EF 60%, mild LVH, mild LVDD, mild MR, mild-moderate TR, mild PHTN - Stress test in the morning - Cardiac/diabetic diet now - Nothing by mouth after midnight - Continuous telemetry 10/03 Had abnormal stress test 10/02/18--found to have mild, small sized basal inferolateral defect. SDS=3, gated EF=70%. Of note, abnormality on stress correlates with known coronary anatomy; SVG to OM1 occluded. SVG to RPDA occluded. 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 Assessment and Plan: Follows with [place] [facility] (5) Headache Current Visit: No Status: Acute Assessment and Plan: Tylenol as needed- resolved at this time (6) HTN (hypertension) with goal to be determined Current Visit: No Status: Acute Assessment and Plan: Resume anti-HTN meds monitor (7) Postural hypotension Current Visit: No Status: Acute Assessment and Plan: Continue fludrocortisone (8) PAD (peripheral artery disease) Current Visit: No Status: Acute (9) Hypothyroidism Current Visit: No Status: Chronic Assessment and Plan: Continue Synthroid Check TSH Check free T4 May need adjusted; recent dose adjustment 09/05/18 increased from 150-175mcg 10/04 increased to 200mcg- follow up as outpatient (10) Paroxysmal A-fib Current Visit: No Status: Acute Assessment and Plan: Takes warfarin INR therapeutic Continue with pharmacy dosing 10/04 was on heparin gtt for pending cath- placed back on coumadin per cardiology - Time Spent with Patient Total time spent is greater than 50% in coordination of care (as documented) at patient's floor/unit and/or counseling patient: Internal Medicine: Result - Labs CBC & Chem 7: 10/04/18 02:39 10/04/18 00:52 Labs: Short CBC 10/04/18 Range/Units 02:39 WBC 7.5 (4.3-11.1) K/mcL Hgb 10.3 L D (12.9-16.9) g/dL Hct 32.8 L (37.5-50.1) % Plt Count 172 (140-400) K/mcL Neutrophils # 4.7 (1.6-8.9) K/mcL BMP 10/04/18 00:52 Sodium 133 L Potassium 4.6 Chloride 103 Carbon Dioxide 25 BUN 41 H Creatinine 1.35 H Glucose 143 H Calcium 8.7 - ABG Interpretation ABG results: PT/INR, D-dimer PT 18.4 Seconds (9.4-12.1) H 10/04/18 09:03 Consult Discharge Plan - Plan Instructions: Levothyroxine (By mouth), Chest Pain (DC) Referrals: Tono Vizcaino MD [Partnered Physician] - (hospital follow up appointment has been requested. office will call with date and time of appointment. ) Peter Carlson MD [Primary Care Provider] - 10/08/18 9:45 am Prescriptions: Levothyroxine [Synthroid] 200 mcg PO DAILY@629 #30 tablet (1) Chest pain Qualifiers: Chest pain type: unspecified Qualified Code(s): R07.9 - Chest pain, unspecif ied (2) CAD (coronary artery disease) Qualifiers: Coronary Disease-Associated Artery/Lesion type: bypass graft [place] vs. transplanted heart: [place] heart Associated angina: with stable angina Qualified Code(s): I25.708 - Atherosclerosis of coronary artery bypass graft(s), unspecified, with other forms of angina pectoris (3) Diabetes Qualifiers: Diabetes mellitus type: type 2 Diabetes mellitus terminal clerk insulin use: with fpc use Diabetes mellitus complication status: without complication Qualified Code(s): E11.9 - Type 2 diabetes mellitus without complications; Z79.4 - terminal clerk (current) use of insulin (5) Headache Qualifiers: Headache type: unspecified Headache chronicity pattern: unspecified pattern Intractability: not intractable Qualified Code(s): R51 - Headache (9) Hypothyroidism Qualifiers: Hypothyroidism type: unspecified Qualified Code(s): E03.9 - Hypothyroidism, unspecified
[2018-10-04] MEDS: Gabapentin 300 MG CAPSULE PO SCH (21:49)
[2018-10-04] MEDS: traZODone 50 MG TABLET PO SCH (21:50)
[2018-10-04] MEDS: Topiramate 25 MG TABLET PO SCH (21:59)
[2018-10-05 05:21] LABS: INR 1.2; Prothrombin Time 13.6 Seconds (9.4-12.1)
[2018-10-05] MEDS ORDERED: *HR* Enoxaparin 80 MG/0.8 ML SYRINGE SQ SCH (09:15)
[2018-10-05] MEDS: Aspirin Enteric Coated 81 MG Tablet PO SCH (10:06)
[2018-10-05] MEDS: Multivit/Ca/Min/Fe/FA 1 TAB TABLET PO SCH (10:06)
[2018-10-05] MEDS: Isosorbide MONOnitrate (24 HR) 30 MG TAB.ER.24H PO SCH (10:06)
[2018-10-05] MEDS: Gabapentin 100 MG CAPSULE PO SCH (10:06)
[2018-10-05] MEDS: BuPROPion XL (24 HR) 150 MG TABLET PO SCH (10:07)
[2018-10-05] MEDS: amLODIPine 5 MG TABLET PO SCH (10:09)
[2018-10-05] MEDS: Insulin DETEMIR 100 UNIT/ML X5UNITS SQ SCH (10:21)
[2018-10-05] MEDS: (Ezetimibe [Zetia] 10 MG) PO SCH (10:21)
[2018-10-05] MEDS: Insulin LISPRO 300 UNITS/3 ML VIAL SQ SCH ×2 (10:25→14:59)
--- NOTE | 2018-10-05 12:38 | Event Note ---
Date of Encounter: 10/05/18 Time of Encounter: 12:35 - Cardiology Event Note LHC completed yesterday. No intervention completed. Pt with severe three vessel CAD. to PDA with 40% stenosis, Ashraf patent. Medical management was recommended. Imdur was started and chest pain resolved. Out-pt f/u will be coordinated with [facility]. Coumadin was restarted with lovenox bridge by primary team. Call with questions.
[2018-10-05] MEDS: Acetaminophen/Butalbital/CaffeineTABLET PO PRN (12:39)
[2018-10-05 12:50] VITALS: BP 128/60
--- NOTE | 2018-10-05 13:58 | Discharge Summary ---
- NOTES TO OUTPATIENT PROVIDER Notes to Outpatient Provider: presented with CP underwent LHC- No intervention -Pt with severe three vessel CAD. to PDA with 40% stenosis, Ashraf patent. Medical management was recommended. Imdur was started and chest pain resolved. - -follow up with [place] [facility]- Resumed Coumadin with lovenox Bridge- Coumadin clinic MonOct 10. Has some GERD symptoms would benefit from EGD as outpatient. TSH was high with low T4 will require close outpatient follow-up with PCP Synthroid was increased 200 g daily Orders not resulted at time of discharge: Pending orders 10/02/18 07:00 NM rihc perf SPECT multi [NM] Routine 10/05/18 13:49 CBC [Complete Blood Count] [HEME] Routine Chem 7 [Basic Metabolic Panel] Routine 10/06/18 04:00 INR/PT [Prothrombin Time INR] [COAG] AM 0400 Date of Encounter: 10/05/18 Time of Encounter: 13:52 - Discharge Diagnosis (1) Chest pain Priority: Primary Status: Acute Qualifiers: Chest pain type: unspecified Qualified Code(s): R07.9 - Chest pain, unspecified (2) CAD (coronary artery disease) Priority: Secondary Status: Chronic Qualifiers: Coronary Disease-Associated Artery/Lesion type: bypass graft [place] vs. 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 (5) Headache Priority: Secondary Status: Acute Qualifiers: Headache type: unspecified Headache chronicity pattern: unspecified pattern Intractability: not intractable Qualified Code(s): R51 - Headache (6) HTN (hypertension) with goal to be determined Priority: Secondary Status: Acute (7) Postural hypotension Priority: Secondary Status: Acute (8) PAD (peripheral artery disease) Priority: Secondary Status: Acute (9) Hypothyroidism Priority: Secondary Status: Chronic Qualifiers: Hypothyroidism type: unspecified Qualified Code(s): E03.9 - Hypothyroidism, unspecified (10) Paroxysmal A-fib Priority: Secondary Status: Acute Hospital course: Mr. 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 He underwent a PCI distal circumflex in 08/2017 he presented to [place] [facility] with complaints of chest pain palpitations over the past several days-patient underwent a cardiac stress test that was abnormal was found to have a mild small sized basal inferolateral defect was seen by cardiology abnormality on stress correlates with known coronary anatomy recommending consideration of additional nitrates in [place] continues in the future and to continue home CAD medications. Patient has h istory of hypothyroid his TSH was 54 which might be contributing to his presenting symptoms Synthroid was increased to 200 g he will need further monitoring as an outpatient. Also patient has describes in GERD symptoms recommending follow-up as outpatient with EGD continue PPI. Currently patient denies any chest pain or shortness of breath patient was given a prescription for Synthroid Prior to discharge patient developed CP- Cardiology recommended LHC INR too high to perform heart cath- Coumadin held - Given Vit K started on hep gtt- LHC completed No intervention. Pt with severe three vessel CAD. to PDA with 40% stenosis, Ashraf patent. Medical management was recommended. Imdur was started and chest pain resolved. Coumadin was restarted with lovenox bridge -will have INR check with Coumadin clinic MonOct 10 - Follow up with cardiology and PCP- Consulted PT/OT however patient declined evaluation He is hemodynamically stable and ready for discharge - Time Spent with Patient Total time spent providing and/or coordinating discharge services: - Discharge Medications Prescriptions: Isosorbide MONOnitrate (24 HR) [Imdur] 30 mg PO DAILY #30 tab.er.24h Home Medications: Acetaminophen/Butalbital/Caffe [Fioricet] 1 tab PO DAILY PRN 05/14/17 [History] Aspirin Enteric Coated [Aspirin EC] 81 mg PO DAILY 08/17/17 [History] Atorvastatin Calcium [Lipitor] 80 mg PO HS 08/17/17 [History] Nitroglycerin 0.4 mg SL Q5MIN PRN #14 tab.subl 08/22/17 [Rx] BuPROPion XL (24 HR) [Wellbutrin Xl] 150 mg PO DAILY 12/16/17 [History] Cyclobenzaprine HCl 5 mg PO HS 12/16/17 [History] Ezetimibe [Zetia] 10 mg PO DAILY 12/16/17 [History] Sertraline [Zoloft] 100 mg PO DAILY 12/16/17 [History] Topiramate [Topamax] 50 mg PO HS 12/16/17 [History] amLODIPine [Norvasc] 5 mg PO DAILY 12/16/17 [History] OxyCODONE/APAP 10/325 [Percocet 10/325 MG] 1 each PO Q6HR PRN 14 Days #56 tablet 01/08/18 [Rx] Multivit-Min/FA/Lycopen/Lutein [Adults 50+ Multivitamin Tablet] 1 tab PO DAILY 02/25/18 [History] Trazodone HCl 50 mg PO HS 02/25/18 [History] Lisinopril [Zestril] 10 mg PO BID 03/28/18 [History] Omeprazole [PriLOSEC] 20 mg PO DAILY 03/28/18 [History] Tamsulosin HCl [Flomax] 0.4 mg PO DAILY 03/28/18 [History] Fludrocortisone Acetate [Florinef] 0.1 mg PO DAILY #5 tablet 04/18/18 [Rx] Docusate [Colace] 100 mg PO DAILY PRN #30 capsule 05/16/18 [Rx] Gabapentin [Neurontin] 300 mg PO HS 09/04/18 [History] Warfarin [Coumadin] 7.5 mg PO SUMOWETHFR 09/04/18 [History] Warfarin [Coumadin] 10 mg PO TUSA 09/04/18 [History] Metoprolol [Lopressor] 12.5 mg PO BID 30 Days #60 tablet 09/07/18 [Rx] Butalbital/Acetaminophen [Butalbital-Acetaminophn 50-325] 1 tab PO DAILY PRN 10/01/18 [History] Gabapentin [Neurontin] 100 mg PO BID 10/01/18 [History] Insulin Glargine [Lantus] 20 unit SQ QAM 10/01/18 [History] Metformin HCl [Metformin HCl ER] 1,000 mg PO QPM 10/01/18 [History] Levothyroxine [Synthroid] 200 mcg PO DAILY@0630 #30 tablet 10/02/18 [Rx] Isosorbide MONOnitrate (24 HR) [Imdur] 30 mg PO DAILY #30 tab.er.24h 10/05/18 [Rx] Allergies/Adverse Reactions: Allergy/AdvReac Type Severity Reaction Status Date / Time No Known Allergies Allergy Verified 07/30/18 14:14 Date of admission: 10/04/18 18:59 Primary care physician: Peter Carlson MD Consults: 10/02/18 10:26 Consult to Cardiology [CONS] Routine Comment: Consulting Provider: Nabeel Mitchell Reason for Consult: positive stress Call Completed: Yes 10/04/18 11:00 Consult to Invasive Line Access Team [CONS] Routine Reason for Consult: no iv access Line Type: EPIV Time Notified: 11:00 10/05/18 09:56 Consult to Physical Therapy [CONS] Routine Comment: Evaluate, develop and implement POC Reason for Consult: weakness Does patient have active BEDREST order?: No Is patient medically & hemodynamically stable?: Yes Patient assessed for mobility or mobilized this visit?: No 10/05/18 09:57 Consult to Occupational Therapy [CONS] Routine Comment: Evaluate, develop and implement POC Reason for Consult: weakness Does patient have active BEDREST order?: No Is patient medically & hemodynamically stable?: Yes Patient assessed for mobility or mobilized this visit?: No Discharging clinician: Evelyn Peters Anticipated date of discharge: 10/05/18 - Constitutional Vitals: Temp Pulse Resp BP Pulse Ox 98.4 F 62 16 128/60 91 10/05/18 12:47 10/05/18 12:47 10/05/18 12:47 10/05/18 12:47 10/05/18 12:47 General appearance: Present: A&O X 3 Exam: PHYSICAL EXAMINATION: GENERAL: 78 male, NAD, and O 3 HEENT: Head is normocephalic and atraumatic. EOMI, PERRLA NECK: Supple. No carotid bruits. No lymphadenopathy or thyromegaly. Stoma LUNGS: Clear to auscultation B/L AP and L. HEART: Bradycardic rate and regular rhythm, S1, S2 without murmur. ABDOMEN: Soft and nondistended. Positive bowel sounds. No hepatosplenomegaly was noted. Epigastric tenderness EXTREMITIES: Without any cyanosis, clubbing, rash, lesions or edema. NEUROLOGIC: Cranial nerves II through XII are grossly intact. PSYCHIATRIC: Appropriate affect, denies SI/HI, without agitation or anxiety SKIN: No ulceration or induration present. - Patient Status Disposition: Home, Self-Care Condition: Good Functional capacity at discharge: uses cane/walker - Discharge Instructions Instructions: Levothyroxine (By mouth), Chest Pain (DC) Follow Up With: coumadin clinic [Other] - 10/10/18 11:00 am Tono Vizcaino MD [Partnered Physician] - (hospital follow up appointment has been requested. office will call with date and time of appointment. ) Peter Carlson MD [Primary Care Provider] - 10/08/18 9:45 am - Diet and Activity Activity: increase activity as tolerated Diet: advance to your usual diet
[2018-10-05] MEDS ORDERED: *HR* Warfarin 7.5 MG TABLET PO ONE (18:00)
[2018-10-05 21:57] LABS: Basophils % 0.3 %; Eosinophils # 0.3 K/mcL (0.0-0.6); Eosinophils % 4.4 %; Hematocrit 32.9 % (37.5-50.1); Hemoglobin 10.1 g/dL (12.9-16.9); Immature Granulocytes % 0.7 % (0-4); Lymphocytes # 0.8 K/mcL (0.6-4.6); Lymphocytes % 13.6 %; Mean Corpuscular HGB Conc 30.7 g/dL (31.6-35.5); Mean Corpuscular Hemoglobin 27.8 pg (28.0-33.3); Mean Corpuscular Volume 90.6 fL (83.0-100.0); Mean Platelet Volume 11.1 fL (9.4-12.4); Monocytes # 0.5 K/mcL (0.0-1.3); Monocytes % 7.7 %; Neutrophils # 4.5 K/mcL (1.6-8.9); Platelet Count 176 K/mcL (140-400); Red Blood Count 3.63 M/mcL (4.19-5.50); Red Cell Distribution Width 14.8 % (11.5-14.5); Segmented Neutrophils % 73.3 %
[2018-10-05 22:17] LABS: BUN/Creatinine Ratio 31 (6-26); Blood Urea Nitrogen 34 mg/dL (8-23); Calcium 8.4 mg/dL (8.6-10.3); Carbon Dioxide 25 mEq/L (23-29); Chloride 105 mEq/L (98-107); Glucose 116 mg/dL (70-105); Osmolality,Calculated 291 (280-300); Potassium 4.5 mEq/L (3.5-5.1); Sodium 136 mEq/L (136-145); eGFR For Non-African Americans > 60 (> 60)
== END 2018-10-05 16:05 | disposition home or self-care (01) | DRG 287 ==
LOC: EMEROOARM 11:47 → 3BNU 11:47
PROVIDERS: ADMIT Internal Medicine; ATTEND Internal Medicine

== ENCOUNTER 2019-05-01 14:03 | Observation (INO) ==
[2019-05-01 14:32] LABS: Basophils % 0.6 %; Eosinophils # 0.3 K/mcL (0.0-0.6); Eosinophils % 4.3 %; Hematocrit 42.1 % (37.5-50.1); Hemoglobin 12.8 g/dL (12.9-16.9); Immature Granulocytes % 0.5 % (0-4); Lymphocytes # 1.1 K/mcL (0.6-4.6); Lymphocytes % 17.1 %; Mean Corpuscular HGB Conc 30.4 g/dL (31.6-35.5); Mean Corpuscular Hemoglobin 28.1 pg (28.0-33.3); Mean Corpuscular Volume 92.5 fL (83.0-100.0); Mean Platelet Volume 10.1 fL (9.4-12.4); Monocytes # 0.8 K/mcL (0.0-1.3); Monocytes % 11.5 %; Neutrophils # 4.3 K/mcL (1.6-8.9); Platelet Count 176 K/mcL (140-400); Red Blood Count 4.55 M/mcL (4.19-5.50); White Blood Count 6.5 K/mcL (4.3-11.1)
[2019-05-01 14:37] LABS: Prothrombin Time 23.2 Seconds (9.4-12.1)
[2019-05-01 14:40] LABS: Activated Partial Thrombo Time 40.6 Seconds (26.0-36.0)
--- NOTE | 2019-05-01 14:53 | Emergency Department Note ---
Disposition Clinical Impression: Chest pain in adult Disposition: Admitted As Inpatient Forms: ED Satisfaction Letter Time of Disposition: 16:26 Chest Pain HPI - General Chief Complaint: ED Chest Pain Stated Complaint: CP Time Seen by Provider: 05/01/19 14:07 - History of Present Illness HPI Narrative: Patient is a 79-year-old male presents to emergency room with complaints of chest pain has been ongoing for 2 days straight. The patient states the pain has been consistent and constant in nature. Somewhat worse when he takes a deep breath. He denies any however shortness of breath, vomiting, does complain of nausea. The patient denies any back pain. The patient denies any significant urinary dysuria, constipation or diarrhea. The patient states he does have right-sided back pain that shoots down his right leg. This is been more chronic condition for him. The patient denies any other focal weakness or focal numbness. He has had no diaphoresis. Exertion does not make his symptoms worse. States that the pain is moderate in intensity. He states otherwise nothing else seems to help his symptoms. Severity scale (1-10): 8 - Related Data Home Medications Medication Instructions Recorded Confirmed Aspirin Enteric Coated [Aspirin EC] 81 mg PO DAILY 08/17/17 02/20/19 Atorvastatin Calcium [Lipitor] 80 mg PO HS 08/17/17 02/20/19 BuPROPion XL (24 HR) [Wellbutrin 150 mg PO DAILY 12/16/17 02/20/19 Xl] Ezetimibe [Zetia] 10 mg PO DAILY 12/16/17 02/20/19 Sertraline [Zoloft] 100 mg PO DAILY 12/16/17 02/20/19 Topiramate [Topamax] 50 mg PO HS 12/16/17 02/20/19 amLODIPine [Norvasc] 5 mg PO DAILY 12/16/17 01/28/19 Lisinopril [Zestril] 10 mg PO BID 03/28/18 02/20/19 Omeprazole [PriLOSEC] 20 mg PO DAILY 03/28/18 02/20/19 Tamsulosin HCl [Flomax] 0.4 mg PO DAILY 03/28/18 02/20/19 Gabapentin [Neurontin] 300 mg PO HS 09/04/18 02/20/19 Warfarin [Coumadin] 7.5 mg PO MOWETHSA 09/04/18 02/20/19 Warfarin [Coumadin] 10 mg PO SUTUFR 09/04/18 02/20/19 Butalbital/Acetaminophen 1 tab PO DAILY PRN 10/01/18 02/20/19 [Butalbital-Acetaminophn 50-325] Metformin HCl [Fortamet] 1,000 mg PO QPM 02/20/19 02/20/19 OxyCODONE/APAP 10/325 [Percocet 1 tab PO Q6HR PRN 02/20/19 02/20/19 10/325 MG] traZODone [TraZODone] 50 mg PO HS 02/20/19 02/20/19 Previous Rx's Medication Instructions Recorded Nitroglycerin 0.4 mg SL Q5MIN PRN #14 tab.subl 08/22/17 Docusate [Colace] 100 mg PO DAILY PRN #30 capsule 05/16/18 Levothyroxine [Synthroid] 200 mcg PO DAILY@0630 #30 tablet 10/02/18 Isosorbide MONOnitrate (24 HR) 30 mg PO DAILY #30 tab.er.24h 10/05/18 [Imdur] Polyethylene Glycol 3350 [MiraLAX] 17 gm PO DAILY PRN #1 bottle 12/05/18 Albuterol Sulfate [Proventil 2 puff IH Q4H PRN #1 inhaler 01/30/19 Inhaler] Allergies Allergy/AdvReac Type Severity Reaction Status Date / Time No Known Allergies Allergy Verified 05/01/19 14:06 Review of Systems: As mentioned per history of present illness and as follows. Constitutional: Negative for chills or fever HENT: Negative for sore throat. Eyes: Negative for visual disturbance Respiratory: Negative for shortness of breath. Cardiovascular: Negative for palpitations. Gastrointestinal: Negative for abdominal pain Genitourinary: Negative for dysuria Musculoskeletal: Negative for back pain. Skin: Negative for rash. Neurological: Negative for focal weakness Psychiatric/Behavioral: Negative for depression Chest Pain PMH - Past Medical History Medical history: Reports: atrial fibrillation, cancer, coronary artery disease, CVA, diabetes, hypertension, myocardial infarction, peripheral artery disease, SVT, thyroid disease Surgical history: Reports: appendectomy Psychiatric history: Reports: no psych history - Social History Smoking Status: Former smoker Alcohol use: Reports: none Drug use: Reports: none Physical Exam PHYSICAL EXAM Constitutional: Well developed, Well nourished, No acute distress, Non-toxic appearance. HENT: Normocephalic, Atraumatic, Bilateral external ears normal, Oropharynx moist, No oral exudates, Nose normal. Neck- Normal range of motion, No tenderness, patient does have a stoma, Supple. Eyes: PERRL, EOMI, Conjunctiva normal,. Cardiovascular: Regular rate and rhythm without clicks, rubs, gallops or murmurs. Respiratory: Normal breath sounds, No respiratory distress, No wheezing, rhonchi, or crackles. GI: Soft, nontender, no evidence of guarding or peritoneal signs. Bowel sounds are active. Musculoskeletal: Good range of motion in all major joints. No tenderness to palpation or major deformities noted. +5/5 strength noted to all extremities. Integument: Warm, Dry, No erythema, No rash. No edema. Neurologic: Alert & oriented x 3, Normal sensory function, No focal deficits noted. CN II-XII grossly intact. Course Vital Signs Temperature 98.4 F 05/01/19 14:05 Pulse Rate 62 05/01/19 14:05 Respiratory Rate 16 05/01/19 14:05 O2 Sat by Pulse Oximetry 95 05/01/19 14:05 Temperature 98.4 F 05/01/19 14:05 Pulse Rate 62 05/01/19 14:05 Respiratory Rate 16 05/01/19 14:05 O2 Sat by Pulse Oximetry 95 05/01/19 14:05 Oxygen Delivery Oxygen Delivery Room Air Chest Pain - MDM Narrative Medical decision making narrative: EKG was obtained that showed evidence of what appears to be an ectopic atrial r hythm rate of 94 beats a minute, patient does not have ST elevation or significant depression. The patient does have LVH-type changes noted. GA interval is within normal limits. QT interval slightly prolonged. Patient does have moderate heart score, given the patient's risk factors patient is very further admitted for evaluation regarding his chest pain. Patient at this point in time will be admitted in stable condition to the floor. Case was discussed in full detail with the hospitalist. There is no evidence of acute coronary syndrome at this time. Patient did have an x-ray showing a basilar opacity, patient however has normal white count, there is no cough. Do not believe this is pneumonia in nature. The patient also is on Coumadin and therapeutic, do not believe the patient has a pulmonary embolism. Final impression 1. Chest pain, precordial - Lab Data Result diagrams: 05/01/19 14:16 05/01/19 14:16 Lab Results 05/01/19 05/01/19 05/01/19 Range/Units 14:16 14:16 14:16 WBC 6.5 (4.3-11.1) K/mcL RBC 4.55 (4.19-5.50) M/mcL Hgb 12.8 L (12.9-16.9) g/dL Hct 42.1 (37.5-50.1) % MCV 92.5 (83.0-100.0) fL MCH 28.1 (28.0-33.3) pg MCHC 30.4 L (31.6-35.5) g/dL RDW 15.0 H (11.5-14.5) % Plt Count 176 (140-400) K/mcL MPV 10.1 (9.4-12.4) fL Immature Gran % 0.5 (0-4) % Seg Neutrophils % 66.0 % Lymphocytes % 17.1 % Monocytes % 11.5 % Eosinophils % 4.3 % Basophils % 0.6 % Neutrophils # 4.3 (1.6-8.9) K/mcL Lymphocytes # 1.1 (0.6-4.6) K/mcL Monocytes # 0.8 (0.0-1.3) K/mcL Eosinophils # 0.3 (0.0-0.6) K/mcL Basophils # 0.0 (0.0-0.2) K/mcL PT 23.2 H (9.4-12.1) Seconds INR 2.0 APTT 40.6 H (26.0-36.0) Seconds Sodium 142 (136-145) mEq/L Potassium 4.4 (3.5-5.1) mEq/L Chloride 107 (98-107) mEq/L Carbon Dioxide 28 (23-29) mEq/L BUN 31 H (8-23) mg/dL Creatinine 1.40 H (0.70-1.30) mg/dL Est GFR ( Amer) 60 (> 60) Est GFR (Non-Af Amer) 49 L (> 60) BUN/Creatinine Ratio 22 (6-26) Glucose 155 H (70-105) mg/dL Calculated Osmolality 304 H (280-300) Calcium 9.4 (8.6-10.3) mg/dL Troponin I < 0.03 (< 0.04) ng/mL Heart Score - Score EKG: Non Specific repolarisation Disturbance Age: Greater than 65 Risk Factors: Equal/Greater than 3 risk factor or history of atherosclerotic disease Troponin: Less than normal limit
[2019-05-01 14:58] LABS: BUN/Creatinine Ratio 22 (6-26); Blood Urea Nitrogen 31 mg/dL (8-23); Calcium 9.4 mg/dL (8.6-10.3); Carbon Dioxide 28 mEq/L (23-29); Chloride 107 mEq/L (98-107); Glucose 155 mg/dL (70-105); Osmolality,Calculated 304 (280-300); Potassium 4.4 mEq/L (3.5-5.1); Sodium 142 mEq/L (136-145); eGFR For African Americans 60 (> 60); eGFR For Non-African Americans 49 (> 60)
[2019-05-01 15:06] LABS: Troponin I < 0.03 ng/mL (< 0.04)
[2019-05-01] MEDS ORDERED: Aspirin 325 MG TABLET PO ONE (16:27)
[2019-05-01] MEDS ORDERED: Naloxone 0.4 MG/ML INJ IVP PRN ×2 (18:05→18:37)
[2019-05-01] MEDS ORDERED: Nitroglycerin 0.4 MG TAB.SUBL SL PRN (18:11)
[2019-05-01] MEDS ORDERED: *HR* Warfarin 5 MG TABLET PO SCH (18:15)
--- NOTE | 2019-05-01 18:17 | Internal Med History&Physical ---
Date of Encounter: 05/01/19 Time of Encounter: 18:00 Internal Medicine - H&P: HPI Chief complaint: Chest pain Admitted From: Emergency Dept Plans for Post Hospital Care: Home History of present illness: Mr. Salmeron is a 79 year old male with a past medical history significant for CAD, TIA, carotid artery stenosis, presented to the emergency department because of the chest pain, substernal, sharp, nonradiating, aggravated with deep respiration, no relieving factors. No associated nausea, vomiting, diaphoresis. Denies orthopnea, dyspnea, PND. Does not have any previous history of congestive heart failure. History of CAD, with an IL in the past. Currently on aspirin, beta blockr, statins. Denies fever, chills. Endorses viral-like illness for almost 2 weeks with runny nose, watery eyes, for almost 2 weeks w hich has been resolving. Patient is currently comfortable without any pain. He also mentions that he has been having abdominal pain for the past few months. His abdomen is asymmetrical. Denies any diarrhea, constipation, nausea, vomiting. Patient is hemodynamically stable in the emergency department. EKG was done which showed ectopic atrial rhthm, QTC of 478,no St or T-wave changes concerning ischemia. Level showed INR of 2.0, creatinine of 1.40, normal troponins. Patient was admitted for further management. Past Med Surg Social Fam HX - Past Medical History Medical history: atrial fibrillation, cancer, coronary artery disease, CVA, diabetes, hypertension, myocardial infarction, peripheral artery disease, SVT, thyroid disease Additional medical history: nose cancer Psychiatric history: no psych history - Past Surgical History Surgical History: appendectomy Additional surgical history: BACK SURGERY, tracheostomy - Social History Smoking Status: Former smoker Smokeless Tobacco Status: No Alcohol use: none Drug use: none - Family History Mother Living Status: Hx Family Cardiac Disorders: No Hx Family Respiratory Disorders: No Hx Family Cancer: Yes (Lung CA) Hx Family GI Disorders: No Hx Family Endocrine Disorder: No Hx Family Neuromuscular Disorders: No Hx Family Neurologic Disorders: No Hx Family HEENT Disorders: No Hx Family Autoimmune Disorders: No Father Living Status: Hx Family Cardiac Disorders: No Hx Family Respiratory Disorders: No Hx Family Cancer: Yes (Lung Ca) Hx Family GI Disorders: No Hx Family Endocrine Disorder: No Hx Family Neuromuscular Disorders: No Hx Family Neurologic Disorders: No Hx Family HEENT Disorders: No Hx Family Autoimmune Disorders: No Sister Living Status: Hx Family Cancer: Yes (lung cancer) Internal Medicine - H&P: Meds Aspirin Enteric Coated [Aspirin EC] 81 mg PO DAILY 08/17/17 [History] Atorvastatin Calcium [Lipitor] 80 mg PO HS 08/17/17 [History] Nitroglycerin 0.4 mg SL Q5MIN PRN #14 tab.subl 08/22/17 [Rx] BuPROPion XL (24 HR) [Wellbutrin Xl] 150 mg PO DAILY 12/16/17 [History] Ezetimibe [Zetia] 10 mg PO DAILY 12/16/17 [History] Sertraline [Zoloft] 100 mg PO DAILY 12/16/17 [History] Topiramate [Topamax] 50 mg PO HS 12/16/17 [History] amLODIPine [Norvasc] 5 mg PO DAILY 12/16/17 [History] Lisinopril [Zestril] 10 mg PO BID 03/28/18 [History] Omeprazole [PriLOSEC] 20 mg PO DAILY 03/28/18 [History] Tamsulosin HCl [Flomax] 0.4 mg PO DAILY 03/28/18 [History] Docusate [Colace] 100 mg PO DAILY PRN #30 capsule 05/16/18 [Rx] Gabapentin [Neurontin] 300 mg PO HS 09/04/18 [History] Warfarin [Coumadin] 7.5 mg PO MOWETHSA 09/04/18 [History] Warfarin [Coumadin] 10 mg PO SUTUFR 09/04/18 [History] Butalbital/Acetaminophen [Butalbital-Acetaminophn 50-325] 1 tab PO DAILY PRN [History] Levothyroxine [Synthroid] 200 mcg PO DAILY@0630 #30 tablet 10/02/18 [Rx] Isosorbide MONOnitrate (24 HR) [Imdur] 30 mg PO DAILY #30 tab.er.24h 10/05/18 [Rx] Polyethylene Glycol 3350 [MiraLAX] 17 gm PO DAILY PRN #1 bottle 12/05/18 [Rx] Albuterol Sulfate [Proventil Inhaler] 2 puff IH Q4H PRN #1 inhaler 01/30/19 [Rx] Metformin HCl [Fortamet] 1,000 mg PO QPM 02/20/19 [History] OxyCODONE/APAP 10/325 [Percocet 10/325 MG] 1 tab PO Q6HR PRN 02/20/19 [History] traZODone [TraZODone] 50 mg PO HS 02/20/19 [History] Allergy/AdvReac Type Severity Reaction Status Date / Time No Known Allergies Allergy Verified 05/01/19 14:06 All Systems PM: A 10-system review of systems was performed and is negative for pertinent findings except as documented above in the HPI. Review of systems: General: Negative for fever, chills, rigors. HEENT: See HPI EYES: Negative for any discharge from the eyes. Respiratory: Negative for shortness of breath, orthopnea, exertional dyspnea. Cardiovascular: See HPI Gastrintestical: See HPI Genitourinary: Negative for dysuria, hematuria, nocturia, increased frequency of urine. Hematological: Negative for blood loss, negative for active cancer. Neurological: Negative for headache, dizziness, blurry vision, loss os power and sensations. Endocrinology: Negative for constipation, polyuria, polydipsia. Psychiatric: Negative for anxiety or depression. - Constitutional Vitals: Temp Pulse Resp BP Pulse Ox 98.4 F 93 22 131/98 96 05/01/19 14:13 05/01/19 16:48 05/01/19 17:16 05/01/19 17:16 05/01/19 16:48 Exam: General: Alert and oriented, no physical distress, able to follow commands. HEENT: No thyromegaly, no lymphadenopathy, no discharge. Eyes: No discharge. Respiratory: Normal vesicular breathing, no added sounds, breathing equal in both sides. CVS: Normal heart sounds, no murmurs, no edema. Extremities: No peripheral edema, peripheral pulses intact. Lymph nodes: No lymphadenopathy Gastrointestinal: Soft abdoemn with tenderenss appreciated in the right lower quadarant, no mass appecated, no rigidity. Genitourinary: No paravertebral tenderness. Neurological: Alert and oriented. No focal deficits. Cranial nerves II-XII intact. Internal Med - H&P Results - Labs CBC & Chem 7: 05/01/19 14:16 05/01/19 14:16 Labs: Short CBC 05/01/19 Range/Units 14:16 WBC 6.5 (4.3-11.1) K/mcL Hgb 12.8 L (12.9-16.9) g/dL Hct 42.1 (37.5-50.1) % Plt Count 176 (140-400) K/mcL Neutrophils # 4.3 (1.6-8.9) K/mcL BMP 05/01/19 14:16 Sodium 142 Potassium 4.4 Chloride 107 Carbon Dioxide 28 BUN 31 H Creatinine 1.40 H Glucose 155 H Calcium 9.4 Cardiac Enzymes 05/01/19 Range/Units 14:16 Troponin I < 0.03 (< 0.04) ng/mL - Impressions ITS Impressions Chest X-Ray 05/01/19 14:13 IMPRESSION: Left basilar opacity suspicious for pneumonia in the appropriate clinical setting. Follow-up imaging recommended to ensure resolution. D/ / Justyn Donovan MD / Justyn Donovan MD Interpreting Provider: Justyn Donovan MD - Assessment and Plan (1) Chest pain in adult Current Visit: Yes Status: Acute Assessment and plan: UnLikely to be cardiac. Troponin normal. No EKG changes concerning for ischemia. -Left basilar opacity suspicious for pneumonia but patient does not have any sinus symptoms for pneumonia. Most recent echo was on 02/21/2019 which showed normal ejection fraction, mild left ventricular hypertrophy, no discernible changes concerning for ischemia. Plan: We will get one more troponin. Order echocardiogram. -We will hold off on stress test at this point considering the suspicion for cardiac ischemia is very low.. (2) CAD (coronary artery disease) Current Visit: No Status: Chronic Assessment and plan: -Continue aspriin , statin, ezetimibe - Qualifiers: Coronary Disease-Associated Artery/Lesion type: bypass graft [place] vs. transplanted heart: [place] heart Associated angina: with stable angina Qualified Code(s): I25.708 - Atherosclerosis of coronary artery bypass graft(s), unspecified, with other forms of angina pectoris (3) Atrial fibrillation Current Visit: Yes Status: Acute Assessment and plan: -currentlyin sinus rhtyhm -AC with the coumadin -Started on AC. -INR monitoirng as per phrmacy Qualifiers: Atrial fibrillation type: paroxysmal Qualified Code(s): I48.0 - Paroxysmal atrial fibrillation (4) Hypothyroidism Current Visit: No Status: Chronic Assessment and plan: -Continue on the home dose of levothyroxine once the medications are reconciled Qualifiers: Hypothyroidism type: acquired Qualified Code(s): E03.9 - Hypothyroidism, unspecified (5) Abdominal pain Current Visit: No Status: Resolved Assessment and plan: -Etiolgoy uncaler -Patient has tenderness on palpation, patient belly is symmetrical. W will get CT scna for further evaluation Qualifiers: Abdominal location: lower abdomen, unspecified Qualified Code(s): R10.30 - Lower abdominal pain, unspecified (6) Acute kidney injury Current Visit: Yes Status: Acute Assessment and plan: -Cr of 1.4 -baseline of 1.0 -Likel prerenal as the pt was sick and might not be taking enough fludis -Gentle hydration with IV fluids -Rpeat BMO tomorrow (7) Diabetes mellitus Current Visit: Yes Status: Acute Assessment and plan: -Type 2 -On metformin, we well hold etformin -Start On LDSS Qualifiers: Diabetes mellitus type: type 2 Diabetes mellitus care home insulin use: without intermediate school teacher use Diabetes mellitus complication status: with circulatory complication Diabetes mellitus complication detail: with other circulatory complications Qualified Code(s): E11.59 - Type 2 diabetes mellitus with other circulatory complications - Summary of Assessment and Plan Summary of Assessment and Plan: -Pt is on multiple medications for the mood disorders but the dosage is not clear, we will start the pt on those meds once been reconciled and confirmed. - Time Spent With Patient Total time spent is greater than 50% in coordination of care (as documented) at patient's floor/unit and/or counseling patient: - VTE Reasons for not Prescribing Prophylaxis: Not indicated-Anticoagulated or INR therapeutic
[2019-05-01] MEDS ORDERED: Dextrose Gel 15 GM/37.5 ML TUBE PO PRN ×2 (18:35)
[2019-05-01] MEDS ORDERED: D5% in Water 1,000 ML IVC PRN (18:35)
[2019-05-01] MEDS ORDERED: *HR* Dextrose 50 % in Water (Syg) 50 ML SYRINGE IVP PRN (18:35)
[2019-05-01] MEDS ORDERED: *HR* OxyCODONE Immed Rel 5 MG TABLET PO PRN (18:37)
[2019-05-01] MEDS ORDERED: Acetaminophen 325 MG TABLET PO PRN (18:37)
[2019-05-01] MEDS: Ringers Solution, Lactated 1,000 ML IVC SCH (20:21)
[2019-05-01] MEDS: Gabapentin 300 MG CAPSULE PO SCH (20:21)
[2019-05-02 05:31] LABS: INR 2.4
[2019-05-02 05:41] LABS: BUN/Creatinine Ratio 27 (6-26); Blood Urea Nitrogen 29 mg/dL (8-23); Calcium 8.8 mg/dL (8.6-10.3); Carbon Dioxide 27 mEq/L (23-29); Chloride 108 mEq/L (98-107); Glucose 144 mg/dL (70-105); Osmolality,Calculated 296 (280-300); Potassium 4.5 mEq/L (3.5-5.1); Sodium 139 mEq/L (136-145); eGFR For African Americans > 60 (> 60); eGFR For Non-African Americans > 60 (> 60)
[2019-05-02 06:54] LABS: Basophils % 0.6 %; Eosinophils # 0.4 K/mcL (0.0-0.6); Eosinophils % 7.3 %; Hematocrit 39.5 % (37.5-50.1); Hemoglobin 11.9 g/dL (12.9-16.9); Immature Granulocytes % 0.4 % (0-4); Lymphocytes # 0.9 K/mcL (0.6-4.6); Lymphocytes % 17.5 %; Mean Corpuscular HGB Conc 30.1 g/dL (31.6-35.5); Mean Corpuscular Hemoglobin 27.7 pg (28.0-33.3); Mean Corpuscular Volume 91.9 fL (83.0-100.0); Mean Platelet Volume 9.6 fL (9.4-12.4); Monocytes # 0.6 K/mcL (0.0-1.3); Monocytes % 11.3 %; Neutrophils # 3.1 K/mcL (1.6-8.9); Platelet Count 142 K/mcL (140-400); Segmented Neutrophils % 62.9 %
[2019-05-02] MEDS: Aspirin Enteric Coated 81 MG Tablet PO SCH (08:02)
[2019-05-02] MEDS: amLODIPine 5 MG TABLET PO SCH (08:02)
[2019-05-02] MEDS: (Ezetimibe [Zetia] 10 MG) PO SCH (08:03)
[2019-05-02] MEDS: Insulin LISPRO 300 UNITS/3 ML VIAL SQ SCH ×3 (08:39→17:27)
--- NOTE | 2019-05-02 13:40 | Internal Med Progress Note ---
Hospitalist Progress Note - Encounter Date of Encounter: 05/02/19 Time of Encounter: 09:45 - Subjective Interval History: Seen at [facility]. Still has landa with the deep isnpiraion. Denies any difuse dull chest pain, SOB. Complains of the pain in the abdomen but denies any diarrhea, vomiting. - Exam Vitals: Temp Pulse Resp BP Pulse Ox 97.8 F 71 16 172/92 98 05/02/19 12:28 05/02/19 12:28 05/02/19 12:28 05/02/19 12:28 05/02/19 12:28 Exam: General: Alert and oriented, no physical distress, able to follow commands. HEENT: No thyromegaly, no lymphadenopathy, no discharge. Eyes: No discharge. Respiratory: Normal vesicular breathing, no added sounds, breathing equal in both sides. CVS: Normal heart sounds, no murmurs, no edema. Extremities: No peripheral edema, peripheral pulses intact. Lymph nodes: No lymphadenopathy Gastrointestinal: Soft abdoemn with tenderenss appreciated in the right lower quadarant, no mass appecated, no rigidity. Genitourinary: No paravertebral tenderness. Neurological: Alert and oriented. No focal deficits. Cranial nerves II-XII intact. - Assessment and Plan (1) Chest pain in adult Current Visit: Yes Status: Acute Assessment and Plan: UnLikely to be cardiac. More likely to be related to his viral like illlness. Troponin normal x 2 No EKG changes concerning for ischemia. -Left basilar opacity suspicious for pneumonia but patient does not have any sinus symptoms for pneumonia. Most recent echo was on 02/21/2019 which showed normal ejection fraction, mild left ventricular hypertrophy, no discernible changes concerning for ischemia. -Repeat echo today showed mildly decreased EF of 45-50% with global left ventricular dyskinesia. -Talekd to the cardiolgoy service who will repat limite echo for the EF, and will see the pt if needed afterwards. -Continue the pt on home meds for CAD (2) CAD (coronary artery disease) Current Visit: No Status: Chronic Assessment and Plan: -Continue aspriin , statin, ezetimibe - (3) Atrial fibrillation Current Visit: Yes Status: Acute Assessment and Plan: -currentlyin sinus rhtyhm -AC with the coumadin, INR therapeutic -Started on AC. -INR monitoirng as per phrmacy (4) Hypothyroidism Current Visit: No Status: Chronic Assessment and Plan: -Continue on the home dose of levothyroxine once the medications are reconciled (5) Abdominal pain Current Visit: No Status: Resolved Assessment and Plan: -Etiolgoy uncaler -CT scan negative for any mass or findings explaing the abdominal pain. -Outpaitent follow up recommended (6) Acute kidney injury Current Visit: Yes Status: Acute Assessment and Plan: -Resolved -Cr of 1.4 at presentaion -back to the baseline (7) Diabetes mellitus Current Visit: Yes Status: Acute Assessment and Plan: -Type 2 -On metformin, we well hold etformin -Start On LDSS - Time Spent with Patient Total time spent is greater than 50% in coordination of care (as documented) at patient's floor/unit and/or counseling patient: Internal Medicine: Result - Labs CBC & Chem 7: 05/02/19 06:41 05/02/19 04:49 Labs: Short CBC 05/01/19 05/02/19 Range/Units 14:16 06:41 WBC 6.5 5.0 (4.3-11.1) K/mcL Hgb 12.8 L 11.9 L (12.9-16.9) g/dL Hct 42.1 39.5 (37.5-50.1) % Plt Count 176 142 (140-400) K/mcL Neutrophils # 4.3 3.1 (1.6-8.9) K/mcL BMP 05/01/19 05/02/19 14:16 04:49 Sodium 142 139 Potassium 4.4 4.5 Chloride 107 108 H Carbon Dioxide 28 27 BUN 31 H 29 H Creatinine 1.40 H 1.09 Glucose 155 H 144 H Calcium 9.4 8.8 Cardiac Enzymes 05/01/19 05/01/19 Range/Units 14:16 19:52 Troponin I < 0.03 < 0.03 (< 0.04) ng/mL - ABG Interpretation ABG results: PT/INR, D-dimer PT 27.0 Seconds (9.4-12.1) H 05/02/19 04:49 - Impressions Impressions Chest X-Ray 05/01/19 14:13 IMPRESSION: Left basilar opacity suspicious for pneumonia in the appropriate clinical setting. Follow-up imaging recommended to ensure resolution. D/ / Justyn Donovan MD / Justyn bowser MD Interpreting Provider: Justyn Donovan MD Echocardiogram Limited Views 05/01/19 18:07 Impressions: LVEF grossly mildly globally reduced. RV not well visualized, grossly normal right ventricular structure with mild dysfunction. Recommend definity for accurate LVEF and wall motion. Left Ventricular Wall Motion: Rest Echo Findings The apex, apical inferior, mid inferior, basal inferior, apical anterior, mid anterior, basal anterior, apical septal, mid inferior septal, basal inferior septal, apical lateral, mid anterior lateral, basal anterior lateral, mid anterior septal, mid inferior lateral, basal anterior septal and basal inferior lateral glass were hypokinetic. Findings: Study Quality * Technically sub-optimal due to poor echocardiographic windows. ECG Findings * Sinus rhythm with BBB. Left Ventricle * LVEF grossly 45-50%. * Mild global left ventricular systolic dysfunction. * Mild concentric left ventricular hypertrophy. * Atypical septal motion consistent with bundle branch block. Right Ventricle * RV not well visualized, grossly normal right ventricular structure with mild dysfunction. Left Atrium * Mildly dilated left atrium. Right Atrium * Normal right atrial size. Abdomen/Pelvis CT 05/01/19 18:10 IMPRESSION: No acute abnormality identified. Specifically, no abnormalities are identified to explain the patient's asymmetric abdominal swelling. Redemonstration of endo stent repair of an abdominal aortic aneurysm and bilateral iliac artery aneurysms. [place] aneurysm sacs are stable. Small hiatal hernia, unchanged. Mild diverticulosis without CT evidence of diverticulitis. D/ / Haris Mckeon MD / Haris Mckeon MD Interpreting Provider: Haris Mckeon MD - VTE Reasons for not Prescribing Prophylaxis: Not indicated-Anticoagulated or INR therapeutic Consult Discharge Plan - Plan Referrals: Peter Carlson MD [Primary Care Provider] - 05/08/19 1:15 pm (2) CAD (coronary artery disease) Qualifiers: Coronary Disease-Associated Artery/Lesion type: bypass graft [place] vs. transplanted heart: [place] heart Associated angina: with stable angina Qualified Code(s): I25.708 - Atherosclerosis of coronary artery bypass graft(s), unspecified, with other forms of angina pectoris (3) Atrial fibrillation Qualifiers: Atrial fibrillation type: paroxysmal Qualified Code(s): I48.0 - Paroxysmal atrial fibrillation (4) Hypothyroidism Qualifiers: Hypothyroidism type: acquired Qualified Code(s): E03.9 - Hypothyroidism, unsp ecified (5) Abdominal pain Qualifiers: Abdominal location: lower abdomen, unspecified Qualified Code(s): R10.30 - Lower abdominal pain, unspecified (7) Diabetes mellitus Qualifiers: Diabetes mellitus type: type 2 Diabetes mellitus senior living insulin use: without long goods drier use Diabetes mellitus complication status: with circulatory complication Diabetes mellitus complication detail: with other circulatory complications Qualified Code(s): E11.59 - Type 2 diabetes mellitus with other circulatory complications
[2019-05-02] MEDS: Ringers Solution, Lactated 1,000 ML IVC SCH (14:38)
[2019-05-02] MEDS: *HR* HYDROcodone/Acet 5/325 mg TABLET PO PRN (14:38)
[2019-05-02] MEDS ORDERED: Warfarin perPT PO PRN (16:06)
[2019-05-02] MEDS ORDERED: *HR* Warfarin 5 MG TABLET PO SCH (18:00)
[2019-05-02] MEDS: traZODone 50 MG TABLET PO SCH (20:19)
[2019-05-02] MEDS: Topiramate 25 MG TABLET PO SCH (20:19)
[2019-05-02] MEDS: Gabapentin 300 MG CAPSULE PO SCH (20:19)
[2019-05-02] MEDS ORDERED: Perflutren Lipid Microsphere 1.3 ML in 0.9 % Sodium Chloride 8.7 ML IVP ONE (20:27)
[2019-05-03 06:15] LABS: INR 2.2; Prothrombin Time 25.2 Seconds (9.4-12.1)
[2019-05-03 06:18] LABS: Basophils % 0.4 %; Eosinophils # 0.3 K/mcL (0.0-0.6); Eosinophils % 5.1 %; Hematocrit 40.8 % (37.5-50.1); Hemoglobin 12.5 g/dL (12.9-16.9); Immature Granulocytes % 0.3 % (0-4); Lymphocytes # 0.9 K/mcL (0.6-4.6); Lymphocytes % 12.7 %; Mean Corpuscular HGB Conc 30.6 g/dL (31.6-35.5); Mean Corpuscular Hemoglobin 28.1 pg (28.0-33.3); Mean Corpuscular Volume 91.7 fL (83.0-100.0); Mean Platelet Volume 10.1 fL (9.4-12.4); Monocytes # 0.6 K/mcL (0.0-1.3); Monocytes % 8.8 %; Neutrophils # 4.9 K/mcL (1.6-8.9); Platelet Count 151 K/mcL (140-400); Red Blood Count 4.45 M/mcL (4.19-5.50); Red Cell Distribution Width 14.8 % (11.5-14.5); Segmented Neutrophils % 72.7 %; White Blood Count 6.7 K/mcL (4.3-11.1)
[2019-05-03 06:26] LABS: BUN/Creatinine Ratio 24 (6-26); Blood Urea Nitrogen 25 mg/dL (8-23); Calcium 9.5 mg/dL (8.6-10.3); Carbon Dioxide 30 mEq/L (23-29); Chloride 102 mEq/L (98-107); Glucose 147 mg/dL (70-105); Osmolality,Calculated 305 (280-300); Potassium 4.9 mEq/L (3.5-5.1); Sodium 144 mEq/L (136-145); eGFR For African Americans > 60 (> 60); eGFR For Non-African Americans > 60 (> 60)
[2019-05-03] MEDS: Insulin LISPRO 300 UNITS/3 ML VIAL SQ SCH ×3 (08:36→17:47)
[2019-05-03] MEDS: BuPROPion XL (24 HR) 150 MG TABLET PO SCH (09:13)
[2019-05-03] MEDS: (Ezetimibe [Zetia] 10 MG) PO SCH (09:14)
[2019-05-03] MEDS: Multivit/Ca/Min/Fe/FA 1 TAB TABLET PO SCH (09:14)
[2019-05-03] MEDS: Aspirin Enteric Coated 81 MG Tablet PO SCH (09:14)
[2019-05-03] MEDS: amLODIPine 5 MG TABLET PO SCH (09:14)
--- NOTE | 2019-05-03 13:58 | Cardiology Consult Note ---
<Tianna Aguilar - Last Filed: 05/03/19 14:27> Date of Encounter: 05/03/19 Time of Encounter: 12:45 Assessment and Plan (1) Chest pain Current Visit: No Status: Acute Per cardiology: -Admitted with chest pain. Chest pain is atypical, however states is anginal equivalent. -Troponins negative. -Denies current chest pain. -TTE with definity with LVEF 55%, does have basal inferior wall akinesis, which is new from previous TTE. -Last [facility] 09/2018 with 100% stenosis in the Mid LAD. 50% stenosis in the Mid Circumflex. 100% stenosis in the Distal Circumflex. 50% stenosis in the 1st Marginal. 100% stenosis in the Proximal RCA. saphenous vein graft to the Right PDA is patent with a 40% lesion in the body with diffuse disease. Medical management was recommended. -On asa, statin. Not on BB due to bradycardia. -Of note, history of nasopharyngeal cancer and is pending further work up at [facility] regarding recent abnormal testing. Concern for possible recurrence of cancer. -Will discuss and review with . Will review ECGs with . -Can consider addition of imdur. Qualifiers: Chest pain type: unspecified Qualified Code(s): R07.9 - Chest pain, unspecified (2) Paroxysmal A-fib Current Visit: No Status: Acute Per cardiology: -Known history of PAF. Currently in SR. -Not on any AV anita blockers due to bradycardia. -On coumadin for anticoagulation. INR therapuetic. -Continue coumadin. Discussion w patient/family: The assessment and plan as outlined above was discussed with the patient who expressed understanding and agreement. All questions were answered. Thank you for involving us in the care of your patient. Please call with any questions. Discussed and reviewed with History of Present Illness Consult date: 05/02/19 Requesting physician: Stacie Vogel Consult reason: abnormal echo Chief complaint: chest pain History of present illness: Mr. Salmeron is a 79 year old male with a relevant past medical history of CAD s/p CABG and PCI, HTN, HLD, GERD, BPH, DVT, DM, PVD, SVT, PAF, CVA, HI, nasopharyngeal cancer with chronic stoma, who presented to [facility] with complaints of chest pain. Patient reports he was sitting on the couch when he had chest pain. States similar to previous angina. Denies aggravating or alleviating symptoms. Denies current chest pain. Patient denies worsening shortness of breath or increased fatigue. Patient denies bleeding or blood loss. Reports he was supposed to have further work up for recurrence of his nasopharyngeal cancer at [facility] due to recent abnormal PET scan and CT, however has not followed up with patient. Past Med Surg Social Fam HX - Past Medical History Attestation: Yes The following information was validated with the patient. Source: patient, old records reviewed Medical history: atrial fibrillation, cancer, coronary artery disease, CVA, diabetes, hypertension, myocardial infarction, peripheral artery disease, SVT, thyroid disease Additional medical history: nose cancer Psychiatric history: no psych history - Past Surgical History Surgical History: appendectomy Additional surgical history: BACK SURGERY, tracheostomy - Social History Smoking Status: Former smoker Smokeless Tobacco Status: No Alcohol use: none Drug use: none - Family History Mother Living Status: Hx Family Cardiac Disorders: No Hx Family Respiratory Disorders: No Hx Family Cancer: Yes (Lung CA) Hx Family GI Disorders: No Hx Family Endocrine Disorder: No Hx Family Neuromuscular Disorders: No Hx Family Neurologic Disorders: No Hx Family HEENT Disorders: No Hx Family Autoimmune Disorders: No Father Living Status: Hx Family Cardiac Disorders: No Hx Family Respiratory Disorders: No Hx Family Cancer: Yes (Lung Ca) Hx Family GI Disorders: No Hx Family Endocrine Disorder: No Hx Family Neuromuscular Disorders: No Hx Family Neurologic Disorders: No Hx Family HEENT Disorders: No Hx Family Autoimmune Disorders: No Sister Living Status: Hx Family Cancer: Yes (lung cancer) Medications and Allergies Aspirin Enteric Coated [Aspirin EC] 81 mg PO DAILY 08/17/17 [History] Atorvastatin Calcium [Lipitor] 80 mg PO HS 08/17/17 [History] Nitroglycerin 0.4 mg SL Q5MIN PRN #14 tab.subl 08/22/17 [Rx] BuPROPion XL (24 HR) [Wellbutrin Xl] 150 mg PO DAILY 12/16/17 [History] Ezetimibe [Zetia] 10 mg PO DAILY 12/16/17 [History] Sertraline [Zoloft] 100 mg PO DAILY 12/16/17 [History] Topiramate [Topamax] 50 mg PO HS 12/16/17 [History] Lisinopril [Zestril] 10 mg PO BID 03/28/18 [History] Omeprazole [PriLOSEC] 20 mg PO DAILY 03/28/18 [History] Tamsulosin HCl [Flomax] 0.4 mg PO DAILY 03/28/18 [History] Gabapentin [Neurontin] 300 mg PO HS 09/04/18 [History] Warfarin [Coumadin] 5 mg PO TUTHSA 09/04/18 [History] Warfarin [Coumadin] 7.5 mg PO SUMOWEFR 09/04/18 [History] Butalbital/Acetaminophen [Butalbital-Acetaminophn 50-325] 1 tab PO Q4H PRN 10/01/18 [History] Albuterol Sulfate [Proventil Inhaler] 2 puff IH Q4H PRN #1 inhaler 01/30/19 [Rx] Metformin HCl [Fortamet] 500 mg PO QPM 02/20/19 [History] OxyCODONE/APAP 10/325 [Percocet 10/325 MG] 1 tab PO Q6HR PRN 02/20/19 [History] traZODone [TraZODone] 50 mg PO HS 02/20/19 [History] Amitriptyline [Elavil] 25 mg PO HS 05/02/19 [History] Cyclobenzaprine HCl 5 mg PO HS PRN 05/02/19 [History] Docusate [Colace] 100 mg PO BID PRN 05/02/19 [History] Insulin Glargine,Hum.rec.anlog [Lantus Solostar] 100 unit SQ AD 05/02/19 [History] Levothyroxine [Synthroid] 200 mcg PO DAILY@0630 05/02/19 [History] Multivitamin [Daily Multiple Vitamin] 1 tab PO DAILY 05/02/19 [History] Promethazine [Phenergan] 25 mg PO Q6H PRN 05/02/19 [History] Allergy/AdvReac Type Severity Reaction Status Date / Time No Known Allergies Allergy Verified 05/02/19 15:02 All Systems Review: The remainder of the systems were reviewed and are negative - Cardiovascular Cardiovascular: as per HPI, chest pain at rest Physical Examination Vital Signs, Last 4 Hours Temp Pulse Resp BP Pulse Ox 05/03/19 11:18 98.8 F 66 16 117/67 95 General: Conversant, No Apparent Distress HEENT: Atraumatic, Normocephaly, Mucus Membranes Moist Neck: No JVD, Normal carotid pulses Cardiac: Reg Rate and Rhythm, Normal S1 and S2, No Murmur Lungs: Normal Breath Sounds, No Wheeze, Rales, Rhonchi, Other (Stoma noted. ) Neuro: Alert and responsive, No focal deficits noted Abdomen: Soft, Non-Tender Skin: No rashes noted on visualized skin Musculoskeletal: No Chest Wall Tenderness Extremities: No Clubbing, No Cyanosis, No Edema, Normal Pulses Results 05/03/19 05:41 05/03/19 05:41 Lab Results Impressions Echocardiogram Limited Views 05/02/19 12:39 Impressions: LVEF 55%. Mild concentric left ventricular hypertrophy. Normal LV chamber size and overall function. Mild segmental left ventricular systolic dysfunction. Atypical septal motion consistent with post-operative status. Left Ventricular Wall Motion: Rest Echo Findings The basal inferior wall was akinetic. All other wall segments showed normal motion. Findings: Study Quality * Technically adequate exam. Left Ventricle * LVEF 55%. * Mild concentric left ventricular hypertrophy. * Normal LV chamber size and overall function. * Mild segmental left ventricular systolic dysfunction. * Atypical septal motion consistent with post-operative status. Active Medications Acetaminophen (Tylenol) 650 mg PO Q6HR PRN PRN Reason: Mild Pain/Fever Stop: 10/31/19 18:38 Hydrocodone Bitart/Acetaminophen ([place] 5-325 Mg) 1 tab PO Q6HR PRN PRN Reason: Moderate Pain Stop: 10/31/19 18:38 Last Admin: 05/02/19 14:38 Dose: 1 tab Documented by: Albuterol Sulfate (Proventil Inhaler) 2 puff IH Q4H PRN PRN Reason: Shortness Of Breath Stop: 10/31/19 18:12 Amitriptyline HCl (Elavil) 25 mg PO HS [facility] Stop: 11/01/19 21:01 Last Admin: 05/02/19 20:18 Dose: 25 mg Documented by: Amlodipine Besylate (Norvasc) 5 mg PO DAILY [facility]; Protocol Stop: 11/01/19 09:01 Last Admin: 05/03/19 09:14 Dose: 5 mg Documented by: Aspirin (Aspirin Ec) 81 mg PO DAILY [facility] Stop: 11/01/19 09:01 Last Admin: 05/03/19 09:14 Dose: 81 mg Documented by: Atorvastatin Calcium (Lipitor) 80 mg PO HS [facility] Stop: 10/31/19 21:01 Last Admin: 05/02/19 20:19 Dose: 80 mg Documented by: Bupropion HCl (Wellbutrin Xl) 150 mg PO DAILY [facility] Stop: 11/02/19 09:01 Last Admin: 05/03/19 09:13 Dose: 150 mg Documented by: Cyclobenzaprine HCl (Flexeril) 5 mg PO HS PRN PRN Reason: Muscle Spasm Dextrose/Water (Dextrose 50% (Syg)) 25 ml IVP AD PRN PRN Reason: Hypoglycemia Stop: 10/31/19 18:36 Docusate Sodium (Colace) 100 mg PO BID PRN; Protocol PRN Reason: Constipation Stop: 11/01/19 18:44 Gabapentin (Neurontin) 300 mg PO [facility] Stop: 10/31/19 21:01 Last Admin: 05/02/19 20:19 Dose: 300 mg Documented by: Glucagon (Glucagen) 1 mg IM ONCE PRN PRN Reason: Hypoglycemia Stop: 10/31/19 18:36 Glucose (Gluctose) 15 gm PO ONCE PRN PRN Reason: Hypoglycemia Stop: 10/31/19 18:36 Glucose (Gluctose) 30 gm PO ONCE PRN PRN Reason: Hypoglycemia Stop: 10/31/19 18:36 Dextrose (Dextrose 5%) 1,000 mls @ 100 mls/hr IVC .Q10H PRN PRN Reason: HYPOGLYCEMIA Stop: 10/31/19 18:36 Insulin Human Lispro (Humalog) 0 units SQ TIDAC [facility]; Protocol Stop: 11/01/19 07:31 Last Admin: 05/03/19 12:46 Dose: 4 units Documented by: Levothyroxine Sodium (Synthroid) 200 mcg PO DAILY@0630 [facility] Stop: 11/02/19 06:31 Last Admin: 05/03/19 06:02 Dose: 200 mcg Documented by: Multivitamins/Calcium (Thera M Plus) 1 tab PO DAILY [facility] Stop: 11/02/19 09:01 Last Admin: 05/03/19 09:14 Dose: 1 tab Documented by: Naloxone HCl (Narcan) 0.4 mg IVP Q2MPRN PRN PRN Reason: SEE COMMENTS Stop: 10/31/19 18:06 Nitroglycerin (Nitroglycerin) 0.4 mg SL Q5MIN PRN PRN Reason: Chest Pain Stop: 10/31/19 18:12 Omeprazole (Prilosec) 20 mg PO 0730 [facility]; Protocol Stop: 11/01/19 07:31 Last Admin: 05/03/19 09:13 Dose: 20 mg Documented by: Oxycodone HCl (Roxicodone) 10 mg PO Q6HR PRN PRN Reason: Severe Pain Stop: 10/31/19 18:38 Pharmacy Profile Note (Patient Taking Own Medication) 1 each PO DAILY [facility] Stop: 11/01/19 09:01 Last Admin: 05/03/19 09:14 Dose: Not Given Documented by: Promethazine HCl (Phenergan) 25 mg PO Q6H PRN PRN Reason: Nausea Stop: 11/01/19 18:44 Sertraline HCl (Zoloft) 100 mg PO DAILY [facility] Stop: 11/02/19 09:01 Last Admin: 05/03/19 09:14 Dose: 100 mg Documented by: Tamsulosin HCl (Flomax) 0.4 mg PO DAILY [facility]; Protocol Stop: 11/01/19 09:01 Last Admin: 05/03/19 09:14 Dose: 0.4 mg Documented by: Topiramate (Topamax) 50 mg PO [facility] Stop: 11/01/19 21:01 Last Admin: 05/02/19 20:19 Dose: 50 mg Documented by: Trazodone HCl (Trazodone) 50 mg PO [facility] Stop: 11/01/19 21:01 Last Admin: 05/02/19 20:19 Dose: 50 mg Documented by: Warfarin Sodium (Coumadin Perpt) 0 each PO DAILY@1800 PRN PRN Reason: PHARMACY TO DOSE Stop: 11/01/19 16:07 Warfarin Sodium (Coumadin) 7.5 mg PO 1800 ONE Stop: 05/03/19 18:01 Laboratory Tests 05/01/19 05/01/19 05/03/19 14:16 19:52 05:41 Hgb 12.5 L INR Creatinine Troponin I < 0.03 < 0.03 05/03/19 05/03/19 05:41 05:41 Hgb INR 2.2 Creatinine 1.06 Troponin I - Imaging and Cardiology Chest Xray: report reviewed Stress Test: report reviewed Echo: report reviewed Cardiac cath: report reviewed - EKG Interpretation EKG results cardiology: personally reviewed (ECG with SR, HR 94.), other (Telemetry reviewed with average HR previous 12 hours noted to be 64, SR. PVCs, PACs noted.) Consult Discharge Plan - Plan Referrals: Peter Carlson MD [Primary Care Provider] - 05/08/19 1:15 pm <Mary Ellen Quevedo - Last Filed: 05/03/19 18:29> Date of Encounter: 05/03/19 - Attending Attestation I have personally performed a face to face evaluation on this patient. I have reviewed and agree with the care plan. History and Exam by me shows: 79-year-old male with known coronary artery disease status post-CABG in the past and nonobstructive disease involving SVG to RPDA found to have a preserved ejection fraction with some mild regional wall motion abnormalities involving the basal inferior wall. We will plan for chemical stress test in a.m. to help risk stratify and rule out worsening ischemia. Assessment and Plan Discussion w patient/family: The assessment and plan as outlined above was discussed with the patient and/or family members who expressed understanding and agreement. All questions were answered. Thank you for involving us in the care of your patient. Please call with any questions. History of Present Illness History of present illness: Mr. Salmeron is a 79 year old male All Systems Review: The remainder of the systems were reviewed and are negative Results 05/03/19 05:41 05/03/19 05:41 Lab Results 05/03/19 05/03/19 05/03/19 05:41 05:41 05:41 WBC 6.7 Hgb 12.5 L Hct 40.8 Plt Count 151 INR 2.2 Sodium 144 Potassium 4.9 Chloride 102 Carbon Dioxide 30 H BUN 25 H Creatinine 1.06 Glucose 147 H Calcium 9.5
[2019-05-03] MEDS ORDERED: *HR* Warfarin 5 MG TABLET PO SCH (18:00)
[2019-05-03] MEDS ORDERED: *HR* Warfarin 7.5 MG TABLET PO ONE (18:00)
--- NOTE | 2019-05-03 18:10 | Internal Med Progress Note ---
Hospitalist Progress Note - Encounter Date of Encounter: 05/03/19 Time of Encounter: 18:07 - Subjective Interval History: Section sheen and examined this morning visit. No acute overnight events. Patient does have on and off left-sided chest pain with deep breathing. Denies any fevers chills nausea vomiting or diarrhea. - Exam Vitals: Temp Pulse Resp BP Pulse Ox 98.8 F 66 16 117/67 95 05/03/19 11:18 05/03/19 11:18 05/03/19 11:18 05/03/19 11:18 05/03/19 11:18 Exam: General: In no acute distress. has tracheostomy. Respiratory exam: CTAB. no accessory muscle use, rales, rhonchi, wheezes Cardiovascular exam: RRR, +S1, +S2. no murmur, gallop, rubs. GI/Abdominal exam: Non-tender, Non-distended, normal bowel sounds, soft, no peritoneal signs. Extremities exam: no pedal edema, pulses palpable in b/l lower extremities. no calf tenderness Neurological exam: CN II-XII intact, AO X3, no focal deficits. Skin exam: No skin rash - Assessment and Plan (1) CAD (coronary artery disease) Current Visit: No Status: Chronic (2) Abdominal pain Current Visit: No Status: Resolved (3) Hypothyroidism Current Visit: No Status: Chronic (4) Chest pain in adult Current Visit: Yes Status: Acute (5) Atrial fibrillation Current Visit: Yes Status: Acute (6) Acute kidney injury Current Visit: Yes Status: Acute (7) Diabetes mellitus Current Visit: Yes Status: Acute - Summary of Assessment and Plan Summary of Assessment and Plan: Assessment Acute Chest pain Chronic CAD DM Afib Hypothyroid Plan Has on/off chest pain but trop negative. However repeat ECHO with basal inferior wall akinesis which is new. Cardiology following, appreciate recommendations. Stress vs C tommorrow. - Left basilar opacity suspicious for pneumonia but patient does not have any sinus symptoms for pneumonia. Hold antibiotics for now - Continue aspriin , statin, ezetimibe - c/w coumadin. in sinus rhtyhm - c/w levothyroxine - CT scan negative for abnormality. - Outpaitent follow up recommended - Hold metformind. c/w accuchecks with [facility] Internal Medicine: Result - Labs CBC & Chem 7: 05/03/19 05:41 05/03/19 05:41 Labs: Short CBC 05/03/19 Range/Units 05:41 WBC 6.7 (4.3-11.1) K/mcL Hgb 12.5 L (12.9-16.9) g/dL Hct 40.8 (37.5-50.1) % Plt Count 151 (140-400) K/mcL Neutrophils # 4.9 (1.6-8.9) K/mcL BMP 05/03/19 05:41 Sodium 144 Potassium 4.9 Chloride 102 Carbon Dioxide 30 H BUN 25 H Creatinine 1.06 Glucose 147 H Calcium 9.5 - ABG Interpretation ABG results: PT/INR, D-dimer PT 25.2 Seconds (9.4-12.1) H 05/03/19 05:41 - Impressions Impressions Echocardiogram Limited Views 05/02/19 12:39 Impressions: LVEF 55%. Mild concentric left ventricular hypertrophy. Normal LV chamber size and overall function. Mild segmental left ventricular systolic dysfunction. Atypical septal motion consistent with post-operative status. Left Ventricular Wall Motion: Rest Echo Findings The basal inferior wall was akinetic. All other wall segments showed normal motion. Findings: Study Quality * Technically adequate exam. Left Ventricle * LVEF 55%. * Mild concentric left ventricular hypertrophy. * Normal LV chamber size and overall function. * Mild segmental left ventricular systolic dysfunction. * Atypical septal motion consistent with post-operative status. - VTE Reasons for not Prescribing Prophylaxis: Not indicated-Anticoagulated or INR therapeutic Consult Discharge Plan - Plan Referrals: Peter Carlson MD [Primary Care Provider] - 05/08/19 1:15 pm (1) CAD (coronary artery disease) Qualifiers: Coronary Disease-Associated Artery/Lesion type: bypass graft [place] vs. transplanted heart: [place] heart Associated angina: with stable angina Qualified Code(s): I25.708 - Atherosclerosis of coronary artery bypass graft(s), unspecified, with other forms of angina pectoris (2) Abdominal pain Qualifiers: Abdominal location: lower abdomen, unspecified Qualified Code(s): R10.30 - Lower abdominal pain, unspecified (3) Hypothyroidism Qualifiers: Hypothyroidism type: acquired Qualified Code(s): E03.9 - Hypothyroidism, unspecified (5) Atrial fibrillation Qualifiers: Atrial fibrillation type: paroxysmal Qualified Code(s): I48.0 - Paroxysmal atrial fibrillation (7) Diabetes mellitus Qualifiers: Diabetes mellitus type: type 2 Diabetes mellitus jail insulin use: without continuous churn buttermaker use Diabetes mellitus complication status: with circulatory complication Diabetes mellitus complication detail: with other circulatory complications Qualified Code(s): E11.59 - Type 2 diabetes mellitus with other circulatory complications
[2019-05-03] MEDS: Gabapentin 300 MG CAPSULE PO SCH (20:55)
[2019-05-03] MEDS: Topiramate 25 MG TABLET PO SCH (20:56)
[2019-05-03] MEDS: traZODone 50 MG TABLET PO SCH (20:56)
[2019-05-03] MEDS: *HR* HYDROcodone/Acet 5/325 mg TABLET PO PRN (21:11)
--- NOTE | 2019-05-03 23:51 | Electrocardiograph Report ---
[facility] Test Date: 2019-05-01 Pat Name: Jordi Salmeron Department: [id number] Room: 3B65 Gender: M Inspector Automatic Typewriter: : 1940 Requested By: [id number] Order Number: [id number] Reading MD: Estefany Torres Measurements Intervals [place] Rate: 94 P: 267 MN: 162 QRS: -48 QRSD: 106 T: 221 QT: 382 QTc: 478 Interpretive Statements Ectopic atrial rhythm LAD, consider left anterior fascicular block Abnormal R-wave progression, late transition Borderline repolarization abnormality Borderline prolonged QT interval SLOW R WAVE PROGRESSION Left axis deviation Electronically Signed On 05-03-2019 23:50:07 EDT by Estefany Torres
[2019-05-04 02:51] LABS: INR 2.1; Prothrombin Time 23.5 Seconds (9.4-12.1)
[2019-05-04] MEDS ORDERED: Regadenoson 0.4 MG/5 ML SYRINGE IVP ONE (06:32)
[2019-05-04] MEDS: Insulin LISPRO 300 UNITS/3 ML VIAL SQ SCH ×2 (07:30→11:35)
[2019-05-04] MEDS: Aspirin Enteric Coated 81 MG Tablet PO SCH (07:30)
[2019-05-04] MEDS: (Ezetimibe [Zetia] 10 MG) PO SCH (09:00)
[2019-05-04] MEDS: Multivit/Ca/Min/Fe/FA 1 TAB TABLET PO SCH (09:00)
--- NOTE | 2019-05-04 10:35 | Cardiology Progress Note ---
Date of Encounter: 05/04/19 Time of Encounter: 09:05 Assessment and Plan (1) Chest pain in adult Current Visit: Yes Status: Acute Per cardiology: Admitted with chest pain. Chest pain is atypical. Occurs wit deep breaths. Troponins negative. TTE this admission with definity with LVEF 55%, does have basal inferior wall akinesis, which is new from previous TTE. Last [facility] 09/2018 with 100% stenosis in the Mid LAD. 50% stenosis in the Mid Ci rcumflex. 100% stenosis in the Distal Circumflex. 50% stenosis in the 1st Marginal. 100% stenosis in the Proximal RCA. saphenous vein graft to the Right PDA is patent with a 40% lesion in the body with diffuse disease. Medical management was recommended. On asa, statin. Not on BB due to bradycardia. Of note, history of nasopharyngeal cancer and is pending further work up at [facility] regarding recent abnormal testing. Concern for possible recurrence of cancer. Stress test recommended for further evaluation and pending. (2) Atrial fibrillation Current Visit: Yes Status: Acute Per cardiology: -Known history of PAF. Currently in SR. -Not on any AV anita blockers due to bradycardia. -On coumadin for anticoagulation. INR therapuetic. Qualifiers: Atrial fibrillation type: paroxysmal Qualified Code(s): I48.0 - Paroxysmal atrial fibrillation Discussion w patient/family: The assessment and plan as outlined above was discussed with the patient and/or family members who expressed understanding and agreement. All questions were answered. Thank you for involving us in the care of your patient. Please call with any questions. Subjective Principal diagnosis: chest pain Interval history: Patient continues to have chest discomfort with deep breaths. Seen and examined in the stress lab. Objective Vital Signs, Last 4 Hours Temp Pulse Resp BP Pulse Ox 05/04/19 07:48 97.7 F 57 16 164/76 95 General: Conversant, No Apparent Distress HEENT: Atraumatic, Normocephaly, Mucus Membranes Moist Neck: No JVD, Normal carotid pulses Cardiac: Reg Rate and Rhythm, Normal S1 and S2, No Murmur Lungs: Normal Breath Sounds, No Wheeze, Rales, Rhonchi Neuro: Alert and responsive, No focal deficits noted Abdomen: Soft, Non-Tender Skin: No rashes noted on visualized skin Musculoskeletal: No Chest Wall Tenderness Extremities: No Clubbing, No Cyanosis, No Edema, Normal Pulses Results 05/03/19 05:41 05/03/19 05:41 Lab Results 05/04/19 00:57 INR 2.1 - Imaging and Cardiology Stress Test: pending - VTE Reasons for not Prescribing Prophylaxis: Not indicated-Anticoagulated or INR therapeutic Consult Discharge Plan - Plan Referrals: Peter Carlson MD [Primary Care Provider] - 05/08/19 1:15 pm
[2019-05-04] MEDS: amLODIPine 5 MG TABLET PO SCH (11:34)
[2019-05-04] MEDS: BuPROPion XL (24 HR) 150 MG TABLET PO SCH (11:34)
[2019-05-04 16:10] VITALS: BP 181/71
--- NOTE | 2019-05-04 16:32 | Discharge Summary ---
- NOTES TO OUTPATIENT PROVIDER Notes to Outpatient Provider: Patient needed close follow-up for his pleuritic chest pain. If develops any other signs of pneumonia we will need to consider antibiotic as outpatient. Started on metoprolol for better blood pressure and coronary artery disease. Orders not resulted at time of discharge: Pending orders 05/04/19 07:00 NM rich perf SPECT multi [NM] Routine 05/05/19 04:00 PT/INR [Prothrombin Time INR] [COAG] AM 0400 05/06/19 04:00 PT/INR [Prothrombin Time INR] [COAG] AM 0400 Date of Encounter: 05/04/19 Time of Encounter: 16:29 - Discharge Diagnosis (1) CAD (coronary artery disease) Priority: Secondary Status: Chronic Qualifiers: Coronary Disease-Associated Artery/Lesion type: bypass graft [place] vs. transplanted heart: [place] heart Associated angina: with stable angina Qualified Code(s): I25.708 - Atherosclerosis of coronary artery bypass graft(s), unspecified, with other forms of angina pectoris (2) Hypothyroidism Priority: Secondary Status: Chronic Qualifiers: Hypothyroidism type: acquired Qualified Code(s): E03.9 - Hypothyroidism, unspecified (3) Chest pain in adult Priority: Primary Status: Acute (4) Atrial fibrillation Priority: Secondary Status: Acute Qualifiers: Atrial fibrillation type: paroxysmal Qualified Code(s): I48.0 - Paroxysmal atrial fibrillation (5) Acute kidney injury Priority: Primary Status: Acute (6) Diabetes mellitus Priority: Secondary Status: Acute Qualifiers: Diabetes mellitus type: type 2 Diabetes mellitus exterminator helper insulin use: without [facility] use Diabetes mellitus complication status: with circulatory complication Diabetes mellitus complication detail: with other circulatory com plications Qualified Code(s): E11.59 - Type 2 diabetes mellitus with other circulatory complications Hospital course: Mr. Salmeron is a 79 year old male past medical history of coronary artery disease, diabetes, A. fib, hypothyroidism came with complaint of chest pain abdominal pain. Patient had left basilar opacity but no other signs of pneu monia on exam. Antibiotics were not started. Echocardiogram was obtained which did show decreased EF 45% however repeat echocardiogram showed EF of 55%. There were some wall motion abnormalities on echocardiogram. Stress test was done which was unremarkable. No further recommendations were made per cardiology except medical management. Patient will be discharged with metoprolol and to continue his home aspirin and statin and lisinopril and other antihypertensives and warfarin. Patient will need to follow with PCP within 1-2 weeks or earlier if he does any signs of pneumonia. Discharge discussed with: patient, nurse, business objects consultant - Time Spent with Patient Total time spent providing and/or coordinating discharge services: Time spent: Greater than 30 minutes (35) - Discharge Medications Prescriptions: New amLODIPine [Norvasc] 5 mg PO DAILY tablet Metoprolol Succinate [Toprol Xl] 25 mg PO DAILY 30 Days #30 tab.er.24h Continued Aspirin Enteric Coated [Aspirin EC] 81 mg PO DAILY Atorvastatin Calcium [Lipitor] 80 mg PO HS Nitroglycerin 0.4 mg SL Q5MIN PRN #14 tab.subl PRN Reason: Chest Pain Sertraline [Zoloft] 100 mg PO DAILY BuPROPion XL (24 HR) [Wellbutrin Xl] 150 mg PO DAILY Topiramate [Topamax] 50 mg PO HS Ezetimibe [Zetia] 10 mg PO DAILY Omeprazole [PriLOSEC] 20 mg PO DAILY Tamsulosin HCl [Flomax] 0.4 mg PO DAILY Lisinopril [Zestril] 10 mg PO BID Gabapentin [Neurontin] 300 mg PO HS Warfarin [Coumadin] 5 mg PO TUTHSA Warfarin [Coumadin] 7.5 mg PO SUMOWEFR Butalbital/Acetaminophen [Butalbital-Acetaminophn 50-325] 1 tab PO Q4H PRN PRN Reason: Migraine Headache Albuterol Sulfate [Proventil Inhaler] 2 puff IH Q4H PRN #1 inhaler PRN Reason: Shortness Of Breath Metformin HCl [Fortamet] 500 mg PO QPM OxyCODONE/APAP 10/325 [Percocet 10/325 MG] 1 tab PO Q6HR PRN PRN Reason: Pain traZODone [TraZODone] 50 mg PO HS Insulin Glargine,Hum.rec.anlog [Lantus Solostar] 100 unit SQ AD Levothyroxine [Synthroid] 200 mcg PO DAILY@0630 Cyclobenzaprine HCl 5 mg PO HS PRN PRN Reason: Muscle Spasm Amitriptyline [Elavil] 25 mg PO HS Docusate [Colace] 100 mg PO BID PRN PRN Reason: Constipation Multivitamin [Daily Multiple Vitamin] 1 tab PO DAILY Promethazine [Phenergan] 25 mg PO Q6H PRN PRN Reason: Nausea Home Medications: Aspirin Enteric Coated [Aspirin EC] 81 mg PO DAILY 08/17/17 [History] Atorvastatin Calcium [Lipitor] 80 mg PO HS 08/17/17 [History] Nitroglycerin 0.4 mg SL Q5MIN PRN #14 tab.subl 08/22/17 [Rx] BuPROPion XL (24 HR) [Wellbutrin Xl] 150 mg PO DAILY 12/16/17 [History] Ezetimibe [Zetia] 10 mg PO DAILY 12/16/17 [History] Sertraline [Zoloft] 100 mg PO DAILY 12/16/17 [History] Topiramate [Topamax] 50 mg PO HS 12/16/17 [History] Lisinopril [Zestril] 10 mg PO BID 03/28/18 [History] Omeprazole [PriLOSEC] 20 mg PO DAILY 03/28/18 [History] Tamsulosin HCl [Flomax] 0.4 mg PO DAILY 03/28/18 [History] Gabapentin [Neurontin] 300 mg PO HS 09/04/18 [History] Warfarin [Coumadin] 5 mg PO TUTHSA 09/04/18 [History] Warfarin [Coumadin] 7.5 mg PO SUMOWEFR 09/04/18 [History] Butalbital/Acetaminophen [Butalbital-Acetaminophn 50-325] 1 tab PO Q4H PRN 10/01/18 [History] Albuterol Sulfate [Proventil Inhaler] 2 puff IH Q4H PRN #1 inhaler 01/30/19 [Rx] Metformin HCl [Fortamet] 500 mg PO QPM 02/20/19 [History] OxyCODONE/APAP 10/325 [Percocet 10/325 MG] 1 tab PO Q6HR PRN 02/20/19 [History] traZODone [TraZODone] 50 mg PO HS 02/20/19 [History] Amitriptyline [Elavil] 25 mg PO HS 05/02/19 [History] Cyclobenzaprine HCl 5 mg PO HS PRN 05/02/19 [History] Docusate [Colace] 100 mg PO BID PRN 05/02/19 [History] Insulin Glargine,Hum.rec.anlog [Lantus Solostar] 100 unit SQ AD 05/02/19 [History] Levothyroxine [Synthroid] 200 mcg PO DAILY@0630 05/02/19 [History] Multivitamin [Daily Multiple Vitamin] 1 tab PO DAILY 05/02/19 [History] Promethazine [Phenergan] 25 mg PO Q6H PRN 05/02/19 [History] Metoprolol Succinate [Toprol Xl] 25 mg PO DAILY 30 Days #30 tab.er.24h 05/04/19 [Rx] amLODIPine [Norvasc] 5 mg PO DAILY tablet 05/04/19 [Rx] Allergies/Adverse Reactions: Allergy/AdvReac Type Severity Reaction Status Date / Time No Known Allergies Allergy Verified 05/02/19 15:02 Date of admission: 05/01/19 16:32 Primary care physician: Peter Carlson MD Consults: 05/02/19 12:03 Consult to Cardiology [CONS] Routine Comment: Consulting Provider: Cardiology Paula Reason for Consult: Global hypokinesia on echo. EF 45-50%, reduced from before. Pt has cadiac history with NM, has multiple risk factors, need further recommendations. Call Completed: Yes Discharging clinician: Tylor Culp - Constitutional Vitals: Temp Pulse Resp BP Pulse Ox 97.7 F 87 16 181/71 99 05/04/19 16:10 05/04/19 16:10 05/04/19 16:10 05/04/19 16:10 05/04/19 16:10 Exam: General: In no acute distress. has tracheostomy. Respiratory exam: CTAB. no accessory muscle use, rales, rhonchi, wheezes Cardiovascular exam: RRR, +S1, +S2. no murmur, gallop, rubs. GI/Abdominal exam: Non-tender, Non-distended, normal bowel sounds, soft, no peritoneal signs. Extremities exam: no pedal edema, pulses palpable in b/l lower extremities. no calf tenderness Neurological exam: CN II-XII intact, AO X3, no focal deficits. Skin exam: No skin rash - Patient Status Disposition: Home, Self-Care Condition: Good - Discharge Instructions Follow Up With: Peter Carlson MD [Primary Care Provider] - 05/08/19 1:15 pm - Diet and Activity Activity: increase activity as tolerated - VTE Reasons for not Prescribing Prophylaxis: Not indicated-Anticoagulated or INR therapeutic
[2019-05-04] MEDS ORDERED: *HR* Warfarin 5 MG TABLET PO ONE (18:00)
== END 2019-05-04 17:16 | disposition home or self-care (01) ==
LOC: 3BNU 14:03 → EMEROOARM 14:03 → SUATTDRO 16:32 → 3BNU 17:32
PROVIDERS: ADMIT Student in an Organized Health Care Education/Training Program; ATTEND Internal Medicine

== ENCOUNTER 2019-05-19 19:34 | Observation (INO) ==
--- NOTE | 2019-05-19 19:36 | Emergency Department Note ---
Disposition Clinical Impression: Pyelonephritis Urinary tract infection Qualifiers: Urinary tract infection type: acute cystitis Hematuria presence: without hematuria Qualified Code(s): N30.00 - Acute cystitis without hematuria Chest pain Qualifiers: Chest pain type: precordial pain Qualified Code(s): R07.2 - Precordial pain Disposition: Admitted As Inpatient Condition: Fair Reasons to Return/Additional Instructions: Please return to the Emergency Department if you experience worsening of your current symptoms or any new symptoms including: Fever/chills, feeling like you might pass out, severe headache, lightheadedness/dizziness, confusion, difficulty walking, frequent falling or any trauma, vision changes, ringing in the ears, significant nose bleeding, difficult or painful swallowing, swelling of your neck or sensation of choking, chest pain, shortness of breath, abdominal pain/nausea/vomiting, blood in your urine or stool, thoughts of harming yourself or anyone else, or any other symptoms that may be concerning to you. Please follow up with your primary care physician or the [facility] within the next 24 hours Take prescribed medication(s) exactly as instructed. 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 Patient states that he has noticed that he has had some abdominal distention and "feels it moving." Patient also admits to having some chest pain and shortness of breath along with this presentation. He is status post CABG. Patient currently rates his pain 7 out of 10 on the pain scale, he denies any abnormal bleeding, denies urinary symptoms, notably self At Home. Patient Has No Other Concerns or Complaints at This Time. Upon my initial evaluation, my general impression is that the patient appears to be uncomfortable due to his abdominal pain. He is otherwise awake, alert, oriented, engaged to conversation and answering questions appropriately. There are no overt lateralizing signs, the patient is in no acute distress; their skin appears to be normal in color, they are not pale, not cyanotic, and not diaphoretic, they are sitting up in hospital bed interacting appropriately with environment. Pt Subjective Complaint: abdominal pain Onset (ago): day(s) Consistency: constant Location: RUQ, RLQ Pain Severity: moderate Pain Scale: 7 Quality: stabbing (Worsened with movement, made better with rest), sharp Radiation: other (Left scrotum) Improves with: rest Worsens with: movement Associated symptoms: Reports: nausea. Denies: vomiting, fever, chills - Related Data Home Medications Medication Instructions Recorded Confirmed Aspirin Enteric Coated [Aspirin EC] 81 mg PO DAILY 08/17/17 05/02/19 Atorvastatin Calcium [Lipitor] 80 mg PO HS 08/17/17 05/02/19 BuPROPion XL (24 HR) [Wellbutrin 150 mg PO DAILY 12/16/17 05/02/19 Xl] Ezetimibe [Zetia] 10 mg PO DAILY 12/16/17 05/02/19 Sertraline [Zoloft] 100 mg PO DAILY 12/16/17 05/02/19 Topiramate [Topamax] 50 mg PO HS 12/16/17 05/02/19 Lisinopril [Zestril] 10 mg PO BID 03/28/18 05/02/19 Omeprazole [PriLOSEC] 20 mg PO DAILY 03/28/18 05/02/19 Tamsulosin HCl [Flomax] 0.4 mg PO DAILY 03/28/18 05/02/19 Gabapentin [Neurontin] 300 mg PO HS 09/04/18 05/02/19 Warfarin [Coumadin] 5 mg PO TUTHSA 09/04/18 05/02/19 Warfarin [Coumadin] 7.5 mg PO SUMOWEFR 09/04/18 05/02/19 Butalbital/Acetaminophen 1 tab PO Q4H PRN 10/01/18 05/02/19 [Butalbital-Acetaminophn 50-325] Metformin HCl [Fortamet] 500 mg PO QPM 02/20/19 05/02/19 OxyCODONE/APAP 10/325 [Percocet 1 tab PO Q6HR PRN 02/20/19 05/02/19 10/325 MG] traZODone [TraZODone] 50 mg PO HS 02/20/19 05/02/19 Amitriptyline [Elavil] 25 mg PO HS 05/02/19 05/02/19 Cyclobenzaprine HCl 5 mg PO HS PRN 05/02/19 05/02/19 Docusate [Colace] 100 mg PO BID PRN 05/02/19 05/02/19 Insulin Glargine,Hum.rec.anlog 100 unit SQ AD 05/02/19 05/02/19 [Lantus Solostar] Levothyroxine [Synthroid] 200 mcg PO DAILY@0630 05/02/19 05/02/19 Multivitamin [Daily Multiple 1 tab PO DAILY 05/02/19 05/02/19 Vitamin] Promethazine [Phenergan] 25 mg PO Q6H PRN 05/02/19 05/02/19 Previous Rx's Medication Instructions Recorded Nitroglycerin 0.4 mg SL Q5MIN PRN #14 tab.subl 08/22/17 Albuterol Sulfate [Proventil 2 puff IH Q4H PRN #1 inhaler 01/30/19 Inhaler] Metoprolol Succinate [Toprol Xl] 25 mg PO DAILY 30 Days #30 05/04/19 tab.er.24h amLODIPine [Norvasc] 5 mg PO DAILY tablet 05/04/19 Allergies Allergy/AdvReac Type Severity Reaction Status Date / Time No Known Allergies Allergy Verified 05/02/19 15:02 Review of Systems: *See History of Present Illness for more detail Constitutional: Denies: fever, chills Cardiovascular: Admits chest pain Respiratory: Admits dyspnea, denies: cough, hemoptysis Gastrointestinal: Admits: abdominal pain, nausea, denies: vomiting, diarrhea, constipation, hematemesis, melena, hematochezia Genitourinary: Denies: hematuria Musculoskeletal: Denies: back pain, neck pain Neurological: Denies: headache, weakness, lightheadedness/dizziness, numbness, paresthesias, difficulty with ambulation. Endocrine: Denies: fatigue All systems ED: reviewed and negative except as stated. Review of Systems: As Per HPI Abdominal Pain PMH - Past Medical History Medical history: Reports: atrial fibrillation, cancer, coronary artery disease, CVA, diabetes, hypertension, myocardial infarction, peripheral artery disease, SVT, thyroid disease Male Surgical History: Reports: other Psychiatric history: Reports: no psych history - Social History Smoking status: Former smoker Alcohol use: Reports: none Drug use: Reports: none Physical Exam Constitutional: No acute distress, [id number], engaged to conversation, speech is fluid, answers questions appropriately Neuro: GCS 15, no overt focal neurological deficits Head: Atraumatic, normocephalic Eyes: Pupils equal, round and reactive to light, no scleral icterus, no conjunctival injection Mouth: No lip swelling, perioral cyanosis, drooling, or trismus. Neck: Trachea midline without deviation. Anterior neck is supple without swelling, no overt thyromegaly noted. Chest: Large midline scar noticed in the anterior chest consistent with CABG procedure. Symmetric chest wall rise Heart: Cardiac rhythm and rate are regular with S1 and S2 , no S3 or S4 appreciated, no murmurs, rubs, or clicks. Lungs: Lungs are clear to auscultation bilaterally, without accessory muscle use or prolonged expiratory phase. No wheezes, rhonchi, rales or stridor appreciated. *Abdomen: Abdomen is diffusely tender to palpation, distended particularly in the right lateral abdomen, there is a portion of hardness noted in the right mid lateral abdomen which feels like scar tissue under the skin. However the patient denies any abdominal surgeries. Abdomen is otherwise flat, soft to palpation, normal bowel sounds, no evidence of bruising. No abdominal bruit auscultated. non-rigid, no organomegaly, no ascites appreciated. No pulsatile mass, no tenderness or guarding to palpation in all four quadrants, no rebound Extremities: No evidence of pedal edema, joint swelling or erythema. Pulses/motor intact in all 4 extremities. Psychiatric exam: Patient displays a normal affect and mood for the environment. No overt signs of hallucination. Integumentary: warm, dry, intact, normal color. No rash, cyanosis, diaphoresis, erythema, or pallor - General Limitations: no limitations General appearance: alert, in no apparent distress Course Course Narrative: CBC, BMP, hepatic panel, lipase, CT scan abdomen and pelvis without IV contrast Morphine, Zofran and IV fluids for management of patient's discomfort. Vital Signs Temperature 99.3 F 05/19/19 19:46 Pulse Rate 75 05/19/19 19:46 Respiratory Rate 16 05/19/19 19:46 Blood Pressure 169/80 05/19/19 19:46 O2 Sat by Pulse Oximetry 96 05/19/19 19:46 Temperature 99.3 F 05/19/19 19:46 Pulse Rate 66 05/19/19 23:04 Respiratory Rate 18 05/19/19 23:04 Blood Pressure 141/69 05/19/19 23:04 O2 Sat by Pulse Oximetry 98 05/19/19 23:04 Oxygen Delivery Oxygen Delivery Room Air Abdominal Pain - MDM Narrative Medical decision making narrative: The patients imaging, and laboratory results are consistent with urinary tract infection, workup is otherwise negative for acute pathology. Evaluation results were discussed with the patient and their family member(s) at bedside. Patient will be given 1 g of Rocephin here in the ED for the management of UTI/pyelonephritis. Upon attempted discharge the patient had sudden onset of chest pain, he states this is the second time that this is happened in the past 2 days the first occurring last night at approximately midnight which subsided soon after it began. However as the patient's heart score is 5 at baseline and he has significant cardiac history he will be admitted to hospitals medicine service for repeat troponins and observation for chest pain/ACS rule out. The patient is at bedside verbalized their understanding and agreement with this plan and the patient is hemodynamically stable at the time of admission. - Lab Data Lab results reviewed: Yes I reviewed the patient's lab results. Result diagrams: 05/19/19 19:56 05/19/19 19:56 Lab Results 05/19/19 05/19/19 05/19/19 Range/Units 19:56 19:56 20:05 WBC 6.8 (4.3-11.1) K/mcL RBC 4.23 (4.19-5.50) M/mcL Hgb 12.1 L (12.9-16.9) g/dL Hct 38.8 (37.5-50.1) % MCV 91.7 (83.0-100.0) fL MCH 28.6 (28.0-33.3) pg MCHC 31.2 L (31.6-35.5) g/dL RDW 14.7 H (11.5-14.5) % Plt Count 158 (140-400) K/mcL MPV 10.0 (9.4-12.4) fL Immature Gran % 0.1 (0-4) % Seg Neutrophils % 60.9 % Lymphocytes % 18.9 % Monocytes % 9.4 % Eosinophils % 10.0 % Basophils % 0.7 % Neutrophils # 4.2 (1.6-8.9) K/mcL Lymphocytes # 1.3 (0.6-4.6) K/mcL Monocytes # 0.6 (0.0-1.3) K/mcL Eosinophils # 0.7 H (0.0-0.6) K/mcL Basophils # 0.1 (0.0-0.2) K/mcL Sodium 139 (136-145) mEq/L Potassium 4.1 (3.5-5.1) mEq/L Chloride 105 (98-107) mEq/L Carbon Dioxide 27 (23-29) mEq/L BUN 30 H (8-23) mg/dL Creatinine 1.00 (0.70-1.30) mg/dL Est GFR ( Amer) > 60 (> 60) Est GFR (Non-Af Amer) > 60 (> 60) BUN/Creatinine Ratio 30 H (6-26) Glucose 138 H (70-105) mg/dL Calculated Osmolality 296 (280-300) Calcium 9.3 (8.6-10.3) mg/dL Total Bilirubin 0.4 (0.3-1.0) mg/dL Direct Bilirubin 0.0 (0.0-0.2) mg/dL Indirect Bilirubin 0.4 (0.0-1.2) mg/dL AST 17 (13-39) Units/L ALT 24 (7-52) Units/L Alkaline Phosphatase 74 (34-104) Units/L Troponin I < 0.03 (< 0.04) ng/mL Serum Total Protein 7.0 (6.4-8.9) g/dL Albumin 4.1 (3.5-5.7) g/dL Globulin 2.9 (2.4-3.5) g/dL Albumin/Globulin Ratio 1.4 (1.1-2.2) Lipase 28 (11-82) Units/L Urine Color Yellow (Yellow) Urine Clarity Cloudy A (Clear) Urine pH 6.0 (5.0-8.0) pH Units Ur Specific [place] 1.015 (1.010-1.025) Urine Protein 30 H (Neg-Trace) mg/dL Urine Glucose (UA) Normal (Normal) mg/dL Urine Ketones Negative (Negative) mg/dL Urine Blood Small H (Negative) Urine Nitrite Negative (Negative) Urine Bilirubin Negative (Negative) Urine Urobilinogen Normal (Normal) mg/dL Ur Leukocyte Esterase Large H (Negative) Urine Microscopic RBC 0-3 (0-3) per hpf Urine Microscopic WBC TNTC H (0-3) per hpf Ur Squamous Epith Cells None Seen (None-Few) per lpf Urine Bacteria Many H (None-Few) per hpf Hyaline Casts None Seen (None-Few) per lpf Ur Culture Indicated? YES A (NO) - Radiology Data Radiology results reviewed: Yes I reviewed the patient's radiology results. Abdomen/Pelvis CT 05/19/19 19:38 IMPRESSION: 1. Mild nonspecific right lateral urinary bladder wall thickening. Cystitis is not excluded. Recommend correlation with urinalysis and if clinically indicated cystoscopy. 2. 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 3. Status post cholecystectomy. D/ / Shane Ramirez MD / Shane Ramirez MD Interpreting Provider: Shane Ramirez MD - EKG Data EKG attestation: Yes I reviewed and interpreted this EKG. EKG results narrative: The patients EKG shows a sinus rhythm with a nonspecific interventricular conduction delay at a rate of 67 beats per minute, AR interval of 190 milliseconds, a QRS duration of 112 milliseconds, a QT/QTc interval of 418 / 442 milliseconds respectively. There are no significant ST segment elevations, depressions, pathologic Q waves, abnormal T-wave inversions, nor any other signs of acute ischemic change. This EKG that was performed today is generally consistent in morphology with prior EKG that was performed on 05/01/2019. Heart Score - Score History: Slightly Suspicious EKG: Normal Age: Greater than 65 Risk Factors: Equal/Greater than 3 risk factor or history of atherosclerotic disease Troponin: Less than normal limit HEART Score Total: 4
[2019-05-19] MEDS ORDERED: Ondansetron 4 MG/2 ML VIAL IVP STA (19:51)
[2019-05-19] MEDS ORDERED: 0.9 % Sodium Chloride 1,000 ML IVC ONE (19:52)
[2019-05-19] MEDS ORDERED: Morphine Sulfate 2 MG/ML SYRINGE IVP ONE (19:52)
[2019-05-19 20:13] LABS: Basophils # 0.1 K/mcL (0.0-0.2); Basophils % 0.7 %; Eosinophils # 0.7 K/mcL (0.0-0.6); Hematocrit 38.8 % (37.5-50.1); Hemoglobin 12.1 g/dL (12.9-16.9); Immature Granulocytes % 0.1 % (0-4); Lymphocytes # 1.3 K/mcL (0.6-4.6); Lymphocytes % 18.9 %; Mean Corpuscular HGB Conc 31.2 g/dL (31.6-35.5); Mean Corpuscular Hemoglobin 28.6 pg (28.0-33.3); Mean Corpuscular Volume 91.7 fL (83.0-100.0); Monocytes # 0.6 K/mcL (0.0-1.3); Monocytes % 9.4 %; Neutrophils # 4.2 K/mcL (1.6-8.9); Platelet Count 158 K/mcL (140-400); Red Blood Count 4.23 M/mcL (4.19-5.50); Red Cell Distribution Width 14.7 % (11.5-14.5); Segmented Neutrophils % 60.9 %; White Blood Count 6.8 K/mcL (4.3-11.1)
[2019-05-19 20:24] LABS: Bilirubin,Urine Negative (Negative); Blood,Urine Small (Negative); Clarity,Urine Cloudy (Clear); Color,Urine Yellow (Yellow); Glucose,Urine (UA) Normal (Normal); Ketones,Urine Negative (Negative); Leukocyte Esterase,Urine Large (Negative); Nitrite,Urine Negative (Negative); Protein,Urine 30 mg/dL (Neg-Trace); Specific Gravity,Urine 1.015 (1.010-1.025); Urobilinogen,Urine Normal (Normal)
[2019-05-19 20:28] LABS: Bacteria,Urine Many per hpf (None-Few); Hyaline Casts,Urine None Seen per lpf (None-Few); RBC,Urine 0-3 per hpf (0-3); Squamous Epithelial Cell,Urine None Seen per lpf (None-Few); WBC,Urine TNTC per hpf (0-3)
[2019-05-19 20:29] LABS: Alanine Aminotransferase 24 Units/L (7-52); Albumin 4.1 g/dL (3.5-5.7); Albumin/Globulin Ratio 1.4 (1.1-2.2); Alkaline Phosphatase 74 Units/L (34-104); Aspartate Amino Transferase 17 Units/L (13-39); BUN/Creatinine Ratio 30 (6-26); Bilirubin,Indirect 0.4 mg/dL (0.0-1.2); Bilirubin,Total 0.4 mg/dL (0.3-1.0); Blood Urea Nitrogen 30 mg/dL (8-23); Calcium 9.3 mg/dL (8.6-10.3); Carbon Dioxide 27 mEq/L (23-29); Chloride 105 mEq/L (98-107); Globulin 2.9 g/dL (2.4-3.5); Glucose 138 mg/dL (70-105); Lipase 28 Units/L (11-82); Osmolality,Calculated 296 (280-300); Potassium 4.1 mEq/L (3.5-5.1); Sodium 139 mEq/L (136-145); eGFR For African Americans > 60 (> 60); eGFR For Non-African Americans > 60 (> 60)
--- NOTE | 2019-05-19 20:29 | Emergency Department Note ---
Disposition Clinical Impression: Pyelonephritis Urinary tract infection Qualifiers: Urinary tract infection type: acute cystitis Hematuria presence: without hematuria Qualified Code(s): N30.00 - Acute cystitis without hematuria Chest pain Qualifiers: Chest pain type: precordial pain Qualified Code(s): R07.2 - Precordial pain Disposition: Admitted As Inpatient Condition: Fair Time of Disposition: 23:39 General Adult HPI - General Chief complaint: ED Abdominal Pain Stated complaint: "His guts is swelling so big and it moved" Time Seen by Provider: 05/19/19 19:35 Source: patient, family Mode of arrival: ambulatory Limitations: no limitations Nursing Notes Reviewed: Yes Vital Signs Reviewed: Yes - History of Present Illness Pain Scale: 7 - Related Data Home Medications Medication Instructions Recorded Confirmed Aspirin Enteric Coated [Aspirin EC] 81 mg PO DAILY 08/17/17 05/02/19 Atorvastatin Calcium [Lipitor] 80 mg PO HS 08/17/17 05/02/19 BuPROPion XL (24 HR) [Wellbutrin 150 mg PO DAILY 12/16/17 05/02/19 Xl] Ezetimibe [Zetia] 10 mg PO DAILY 12/16/17 05/02/19 Sertraline [Zoloft] 100 mg PO DAILY 12/16/17 05/02/19 Topiramate [Topamax] 50 mg PO HS 12/16/17 05/02/19 Lisinopril [Zestril] 10 mg PO BID 03/28/18 05/02/19 Omeprazole [PriLOSEC] 20 mg PO DAILY 03/28/18 05/02/19 Tamsulosin HCl [Flomax] 0.4 mg PO DAILY 03/28/18 05/02/19 Gabapentin [Neurontin] 300 mg PO HS 09/04/18 05/02/19 Warfarin [Coumadin] 5 mg PO TUTHSA 09/04/18 05/02/19 Warfarin [Coumadin] 7.5 mg PO SUMOWEFR 09/04/18 05/02/19 Butalbital/Acetaminophen 1 tab PO Q4H PRN 10/01/18 05/02/19 [Butalbital-Acetaminophn 50-325] Metformin HCl [Fortamet] 500 mg PO QPM 02/20/19 05/02/19 OxyCODONE/APAP 10/325 [Percocet 1 tab PO Q6HR PRN 02/20/19 05/02/19 10/325 MG] traZODone [TraZODone] 50 mg PO HS 02/20/19 05/02/19 Amitriptyline [Elavil] 25 mg PO HS 05/02/19 05/02/19 Cyclobenzaprine HCl 5 mg PO HS PRN 05/02/19 05/02/19 Docusate [Colace] 100 mg PO BID PRN 05/02/19 05/02/19 Insulin Glargine,Hum.rec.anlog 100 unit SQ AD 05/02/19 05/02/19 [Lantus Solostar] Levothyroxine [Synthroid] 200 mcg PO DAILY@0630 05/02/19 05/02/19 Multivitamin [Daily Multiple 1 tab PO DAILY 05/02/19 05/02/19 Vitamin] Promethazine [Phenergan] 25 mg PO Q6H PRN 05/02/19 05/02/19 Previous Rx's Medication Instructions Recorded Nitroglycerin 0.4 mg SL Q5MIN PRN #14 tab.subl 08/22/17 Albuterol Sulfate [Proventil 2 puff IH Q4H PRN #1 inhaler 01/30/19 Inhaler] Metoprolol Succinate [Toprol Xl] 25 mg PO DAILY 30 Days #30 05/04/19 tab.er.24h amLODIPine [Norvasc] 5 mg PO DAILY tablet 05/04/19 Allergies Allergy/AdvReac Type Severity Reaction Status Date / Time No Known Allergies Allergy Verified 05/02/19 15:02 Past Medical History - Past Medical History Medical history: Reports: atrial fibrillation, cancer, coronary artery disease, CVA, diabetes, hypertension, myocardial infarction, peripheral artery disease, SVT, thyroid disease Surgical history: Reports: appendectomy Psychiatric history: Reports: no psych history - Social History Smoking Status: Former smoker Smokeless Tobacco Status: No Alcohol use: Reports: none Drug use: Reports: none Physical Exam - General Limitations: no limitations General appearance: alert, in no apparent distress Course Vital Signs Temperature 99.3 F 05/19/19 19:46 Pulse Rate 75 05/19/19 19:46 Respiratory Rate 16 05/19/19 19:46 Blood Pressure 169/80 05/19/19 19:46 O2 Sat by Pulse Oximetry 96 05/19/19 19:46 Temperature 99.3 F 05/19/19 19:46 Pulse Rate 66 05/19/19 23:04 Respiratory Rate 18 05/19/19 23:04 Blood Pressure 141/69 05/19/19 23:04 O2 Sat by Pulse Oximetry 98 05/19/19 23:04 Oxygen Delivery Oxygen Delivery Room Air Medical Decision Making - Medical Records Medical records reviewed: Yes I reviewed the patient's medical records. - Lab Data Lab results reviewed: Yes I reviewed the patient's lab results. Result diagrams: 05/19/19 19:56 05/19/19 19:56 Lab Results 05/19/19 05/19/19 05/19/19 Range/Units 19:56 19:56 20:05 WBC 6.8 (4.3-11.1) K/mcL RBC 4.23 (4.19-5.50) M/mcL Hgb 12.1 L (12.9-16.9) g/dL Hct 38.8 (37.5-50.1) % MCV 91.7 (83.0-100.0) fL MCH 28.6 (28.0-33.3) pg MCHC 31.2 L (31.6-35.5) g/dL RDW 14.7 H (11.5-14.5) % Plt Count 158 (140-400) K/mcL MPV 10.0 (9.4-12.4) fL Immature Gran % 0.1 (0-4) % Seg Neutrophils % 60.9 % Lymphocytes % 18.9 % Monocytes % 9.4 % Eosinophils % 10.0 % Basophils % 0.7 % Neutrophils # 4.2 (1.6-8.9) K/mcL Lymphocytes # 1.3 (0.6-4.6) K/mcL Monocytes # 0.6 (0.0-1.3) K/mcL Eosinophils # 0.7 H (0.0-0.6) K/mcL Basophils # 0.1 (0.0-0.2) K/mcL Sodium 139 (136-145) mEq/L Potassium 4.1 (3.5-5.1) mEq/L Chloride 105 (98-107) mEq/L Carbon Dioxide 27 (23-29) mEq/L BUN 30 H (8-23) mg/dL Creatinine 1.00 (0.70-1.30) mg/dL Est GFR ( Amer) > 60 (> 60) Est GFR (Non-Af Amer) > 60 (> 60) BUN/Creatinine Ratio 30 H (6-26) Glucose 138 H (70-105) mg/dL Calculated Osmolality 296 (280-300) Calcium 9.3 (8.6-10.3) mg/dL Total Bilirubin 0.4 (0.3-1.0) mg/dL Direct Bilirubin 0.0 (0.0-0.2) mg/dL Indirect Bilirubin 0.4 (0.0-1.2) mg/dL AST 17 (13-39) Units/L ALT 24 (7-52) Units/L Alkaline Phosphatase 74 (34-104) Units/L Troponin I < 0.03 (< 0.04) ng/mL Serum Total Protein 7.0 (6.4-8.9) g/dL Albumin 4.1 (3.5-5.7) g/dL Globulin 2.9 (2.4-3.5) g/dL Albumin/Globulin Ratio 1.4 (1.1-2.2) Lipase 28 (11-82) Units/L Urine Color Yellow (Yellow) Urine Clarity Cloudy A (Clear) Urine pH 6.0 (5.0-8.0) pH Units Ur Specific [place] 1.015 (1.010-1.025) Urine Protein 30 H (Neg-Trace) mg/dL Urine Glucose (UA) Normal (Normal) mg/dL Urine Ketones Negative (Negative) mg/dL Urine Blood Small H (Negative) Urine Nitrite Negative (Negative) Urine Bilirubin Negative (Negative) Urine Urobilinogen Normal (Normal) mg/dL Ur Leukocyte Esterase Large H (Negative) Urine Microscopic RBC 0-3 (0-3) per hpf Urine Microscopic WBC TNTC H (0-3) per hpf Ur Squamous Epith Cells None Seen (None-Few) per lpf Urine Bacteria Many H (None-Few) per hpf Hyaline Casts None Seen (None-Few) per lpf Ur Culture Indicated? YES A (NO) - Radiology Data Radiology results reviewed: Yes I reviewed the patient's radiology results. Abdomen/Pelvis CT 05/19/19 19:38 IMPRESSION: 1. Mild nonspecific right lateral urinary bladder wall thickening. Cystitis is not excluded. Recommend correlation with urinalysis and if clinically indicated cystoscopy. 2. 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 3. Status post cholecystectomy. D/ / Shane Ramirez MD / Shane Ramirez MD Interpreting Provider: Shane Ramirez MD - EKG Data EKG #1 EKG attestation: Yes I reviewed and interpreted this EKG. EKG results narrative: 23: 0-0 repeat EKG shows normal sinus rhythm with ventricular rate of 69. No significant ST segment elevation or depression. No arrhythmia or ectopy. No change from initial EKG. EKG #2 EKG attestation: Yes I reviewed and interpreted this EKG. EKG results narrative: 23: 0-0 repeat EKG shows normal sinus rhythm with ventricular rate of 69. No significant ST segment elevation or depression. No arrhythmia or ectopy. No change from initial EKG. Critical Care Time Critical Care Time: No Attestation Statement - Attestation Attestation: I, Den Mcintosh MD, personally evaluated this patient and discussed their management with the resident physician. I reviewed the resident's note and agree with the documented findings, medical decision making, and plan of care. I reviewed the residents documentation and agree with the residents assessment and plan of care. I have personally had face to face time with the patient. I personally supervised and was present for the norris/critical portions of the following procedures completed by the resident: EKG interpretation. 79-year-old male presents to the emergency department with a complaint of some mid and lower abdominal pain which started about 2 days prior to arrival. The pain has gotten gradually worse. Today noted that the pain was more on the right side in the right side of the abdomen appeared swollen and she noted that it appeared to move. The pain radiates down in the scrotum and he complains of some pain in his testicles. reports he has had problems with swelling of his scrotum in the past but not at this time. He also admits to some chest pain and shortness of breath intermittently over the past few days. states he had real bad chest pain during the night last night but refused to come to the emergency department. He has had some nausea but no vomiting. No diarrhea. No fever. On examination patient is a well-developed well-nourished well-appearing elderly male in no acute distress. He is alert and oriented 3. There is no cyanosis or diaphoresis. Breath sounds are decreased but clear and equal bilaterally. Heart regular rate and rhythm. Abdomen is soft with mild to moderate right- sided abdominal tenderness. No tympany or distention. No scrotal or testicular swelling. No inguinal hernia. EKG shows normal sinus rhythm with ventricular rate of 67. No significant ST segment elevation or depression. No arrhythmia or ectopy. There is nonspecific T-wave abnormality with some T-wave flattening in inferior and lateral leads. Labs reviewed. Troponin normal. Patient does have a UTI. CT the abdomen and pelvis shows bladder wall thickening consistent with UTI. Initial plan was to discharge the patient home with treatment for UTI however just before we were discharging patient he again started complaining of chest pain. A repeat EKG was obtained which is unchanged from initial EKG. We will consult the hospitalist for admission. The hospitalist, Dr. Martines, was consulted and accepted admission of the patient.
[2019-05-19] MEDS ORDERED: cefTRIAXone 1,000 MG in Water for inj. (sterile) 10 ML IVP ONE (21:48)
[2019-05-19 22:38] LABS: Troponin I < 0.03 ng/mL (< 0.04)
[2019-05-20] MEDS ORDERED: Naloxone 0.4 MG/ML INJ IVP PRN (01:08)
[2019-05-20] MEDS ORDERED: Ondansetron 4 MG/2 ML VIAL IVP PRN (01:08)
[2019-05-20] MEDS ORDERED: Acetaminophen 325 MG TABLET PO PRN (01:08)
--- NOTE | 2019-05-20 01:16 | Internal Med History&Physical ---
Date of Encounter: 05/20/19 Time of Encounter: 05:00 Internal Medicine - H&P: HPI Chief complaint: Chest pain/abdominal pain History of present illness: Mr. Salmeron is a 79 year old male past medical history of coronary artery disease, diabetes, A. fib on anticoagulation, hypothyroidism came with complaint of chest pain abdominal pain. Patient reports she has been having abdominal pain for the past 2 days with radiation to his right groin associated with abdominal distention. Pain is nonradiating, 7 out of 10 in intensity. Denies any nausea, vomiting or diarrhea. No reports of dysuria. Patient also endorsed left-sided chest pain and some shortness of breath. Patient was recently discharged in April for evaluation of chest pain. Underwent nuclear stress te sting which was negative for ischemia. On arrival patient was afebrile, hemodynamically stable. Laboratory workup was relatively unremarkable including a negative troponin. UA was suggestive of possible UTI. CT scan of the abdomen and pelvis notable for bladder wall thickening, but was otherwise unremarkable. EKG showed sinus rhythm with no evidence of ST or T-wave changes concerning for ischemia. Patient was given a one-time dose of ceftriaxone in the ED with plans for discharge. However, upon attempted discharge the patient had sudden onset of chest pain, he states this is the second time that this is happened in the past 2 days the first occurring last night at approximately midnight which subsided soon after it began. Patient is admitted for further observation. Past Med Surg Social Fam HX - Past Medical History Medical history: atrial fibrillation, cancer, coronary artery disease, CVA, diabetes, hypertension, myocardial infarction, peripheral artery disease, SVT, thyroid disease Additional medical history: nose cancer Psychiatric history: no psych history - Past Surgical History Surgical History: appendectomy Additional surgical history: BACK SURGERY, tracheostomy - Social History Smoking Status: Former smoker Smokeless Tobacco Status: No Alcohol use: none Drug use: none - Family History Mother Living Status: Hx Family Cardiac Disorders: No Hx Family Respiratory Disorders: No Hx Family Cancer: Yes (Lung CA) Hx Family GI Disorders: No Hx Family Endocrine Disorder: No Hx Family Neuromuscular Disorders: No Hx Family Neurologic Disorders: No Hx Family HEENT Disorders: No Hx Family Autoimmune Disorders: No Father Living Status: Hx Family Cardiac Disorders: No Hx Family Respiratory Disorders: No Hx Family Cancer: Yes (Lung Ca) Hx Family GI Disorders: No Hx Family Endocrine Disorder: No Hx Family Neuromuscular Disorders: No Hx Family Neurologic Disorders: No Hx Family HEENT Disorders: No Hx Family Autoimmune Disorders: No Sister Living Status: Hx Family Cancer: Yes (lung cancer) Internal Medicine - H&P: Meds Aspirin Enteric Coated [Aspirin EC] 81 mg PO DAILY 08/17/17 [History] Atorvastatin Calcium [Lipitor] 80 mg PO DAILY 08/17/17 [History] Nitroglycerin 0.4 mg SL Q5MIN PRN #14 tab.subl 08/22/17 [Rx] BuPROPion XL (24 HR) [Wellbutrin Xl] 150 mg PO QAM 12/16/17 [History] Ezetimibe [Zetia] 10 mg PO DAILY 12/16/17 [History] Sertraline [Zoloft] 100 mg PO DAILY 12/16/17 [History] Topiramate [Topamax] 50 mg PO HS 12/16/17 [History] Lisinopril [Zestril] 10 mg PO BID 03/28/18 [History] Omeprazole [PriLOSEC] 20 mg PO DAILY 03/28/18 [History] Tamsulosin HCl [Flomax] 0.4 mg PO DAILY 03/28/18 [History] Gabapentin [Neurontin] 300 mg PO HS 09/04/18 [History] Warfarin [Coumadin] 5 mg PO TUTHSA 09/04/18 [History] Warfarin [Coumadin] 7.5 mg PO SUMOWEFR 09/04/18 [History] Albuterol Sulfate [Proventil Inhaler] 2 puff IH Q4H PRN #1 inhaler 01/30/19 [Rx] Metformin HCl [Fortamet] 1,000 mg PO QPM@1800 02/20/19 [History] OxyCODONE/APAP 10/325 [Percocet 10/325 MG] 1 tab PO QID PRN 02/20/19 [History] traZODone [TraZODone] 50 mg PO HS 02/20/19 [History] Amitriptyline [Elavil] 25 mg PO HS 05/02/19 [History] Cyclobenzaprine HCl 5 mg PO HS PRN 05/02/19 [History] Docusate [Colace] 100 mg PO BID PRN 05/02/19 [History] Insulin Glargine,Hum.rec.anlog [Lantus Solostar] 20 unit SQ QAM 05/02/19 [History] Levothyroxine [Synthroid] 200 mcg PO DAILY@0630 05/02/19 [History] Multivitamin [Daily Multiple Vitamin] 1 tab PO DAILY 05/02/19 [History] Promethazine [Phenergan] 25 mg PO Q6H PRN 05/02/19 [History] Metoprolol Succinate [Toprol Xl] 25 mg PO DAILY 30 Days #30 tab.er.24h 05/04/19 [Rx] amLODIPine [Norvasc] 5 mg PO DAILY tablet 05/04/19 [Rx] Butalb/Acetaminophen/Caffeine [Fioricet 50-300-40 mg Capsule] 1 cap PO DAILY PRN 05/20/19 [History] Allergy/AdvReac Type Severity Reaction Status Date / Time No Known Allergies Allergy Verified 05/20/19 17:52 All Systems PM: A 10-system review of systems was performed and is negative for pertinent find ings except as documented above in the HPI. - Constitutional Constitutional: no chills, no fever(s), no night sweats - EENT Eyes: no change in vision, no discharge, no pain, no photophobia Ears: no ear discharge, no ear pain, no tinnitus Nose, mouth and throat: no dysphagia, no nasal discharge, no neck pain, no sore throat - Cardiovascular Cardiovascular ROS IM: no chest pain, no diaphoresis, no dyspnea, no lightheadedness, no palpitations, no syncope - Respiratory Respiratory: no cough, no dyspnea, no wheezing, no excessive phlegm production - Gastrointestinal Gastrointestinal: no abdominal pain, no diarrhea, no hematemesis, no hematochezia, no melena, no nausea, no vomiting - Musculoskeletal Musculoskeletal ROS IM: no numbness, no tingling - Integumentary Integumentary IM: no rash, no unusual bruising - Neurological Neurological ROS: no confusion, no convulsions, no focal weakness, no numbness, no tingling, no tremor(s) - Hematologic/Lymphatic Hematologic/Lymphatic: no easy bruising - Constitutional Vitals: Temp Pulse Resp BP Pulse Ox 99.3 F 69 17 152/77 98 05/19/19 19:46 05/20/19 00:06 05/20/19 00:06 05/20/19 00:06 05/20/19 00:06 Exam: General: Alert and oriented 3 Skin:Normal color, no rash, no lesions. HEENT:EOM, pupils equal, round and reactive. Cardiovascular:Normal S1 & S2, no rubs, murmurs or gallops. No JVD. Pulse regular. Lungs:Normal breath sounds, no wheezes or crackles. Abdomen: Soft, mildly distended with tenderness to palpation in the right lower quadrant. Extremities:No deformity, no edema or tenderness, no joint swelling or clubbing. Neurological:Normal cognition and motor skills. Pulses:Carotid and radial pulses normal +2. Rest of the physical exam is non contributory Internal Med - H&P Results - Labs CBC & Chem 7: 05/20/19 01:47 05/20/19 01:47 Labs: Short CBC 05/19/19 Range/Units 19:56 WBC 6.8 (4.3-11.1) K/mcL Hgb 12.1 L (12.9-16.9) g/dL Hct 38.8 (37.5-50.1) % Plt Count 158 (140-400) K/mcL Neutrophils # 4.2 (1.6-8.9) K/mcL BMP 05/19/19 19:56 Sodium 139 Potassium 4.1 Chloride 105 Carbon Dioxide 27 BUN 30 H Creatinine 1.00 Glucose 138 H Calcium 9.3 Cardiac Enzymes 05/19/19 Range/Units 19:56 Troponin I < 0.03 (< 0.04) ng/mL Liver Function 05/19/19 Range/Units 19:56 Total Bilirubin 0.4 (0.3-1.0) mg/dL Direct Bilirubin 0.0 (0.0-0.2) mg/dL AST 17 (13-39) Units/L ALT 24 (7-52) Units/L Alkaline Phosphatase 74 (34-104) Units/L Albumin 4.1 (3.5-5.7) g/dL Urine 05/19/19 Range/Units 20:05 Urine Color Yellow (Yellow) Urine Clarity Cloudy A (Clear) Urine pH 6.0 (5.0-8.0) pH Units Ur Specific [place] 1.015 (1.010-1.025) Urine Protein 30 H (Neg-Trace) mg/dL Urine Glucose (UA) Normal (Normal) mg/dL - Impressions ITS Impressions Abdomen/Pelvis CT 05/19/19 19:38 IMPRESSION: 1. Mild nonspecific right lateral urinary bladder wall thickening. Cystitis is not excluded. Recommend correlation with urinalysis and if clinically indicated cystoscopy. 2. 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 3. Status post cholecystectomy. D/ / Shane Ramirez MD / Shane Ramirez MD Interpreting Provider: Shane Ramirez MD Chest X-Ray 05/19/19 23:25 IMPRESSION: Right pleural effusion with right basilar atelectasis or pneumonia. D/ / Sohan Hicks MD / Sohan Hicks MD Interpreting Provider: Sohan Hicks MD - Assessment and Plan (1) Chest pain Current Visit: Yes Status: Acute Assessment and plan: Patient presenting with left-sided atypical chest pain reproducible to palpation. Initial troponin was negative. EKG showed sinus rhythm the absence of any ST or T-wave changes concerning for ischemia. Patient had recent nuclear stress testing on May 04 which was negative for ischemia. -We will place patient on telemetry -Trend troponin -If second troponin negative at this time I feel no further evaluation is needed given the reproducibility of his chest pain at this time and recent workup. Qualifiers: Chest pain type: precordial pain Qualified Code(s): R07.2 - Precordial pain (2) UTI (urinary tract infection) Current Visit: Yes Status: Acute Assessment and plan: Patient presented with abdominal distention. Found to have thickening of bladder wall on CT scan. Received one-time dose of ceftriaxone. -Follow-up urine culture Qualifiers: Urinary tract infection type: acute cystitis Hematuria presence: without hematuria Qualified Code(s): N30.00 - Acute cystitis without hematuria (3) Abdominal pain Current Visit: No Status: Acute Assessment and plan: Patient reporting two-day history of right lower quadrant abdominal pain and distention. No reports of nausea, vomiting or diarrhea. Patient states bowel movements have been regular. CT scan of the abdomen showing nonspecific right lateral urinary bladder wall thickening possibly related to cystitis. CT also showing evidence of vascular endograft repair without complication and currently stable. -Etiology of abdominal pain unclear and may be related to cystitis. -We will monitor and assess response to ceftriaxone for UTI. Qualifiers: Abdominal location: right lower quadrant Qualified Code(s): R10.31 - Right lower quadrant pain (4) Atrial fibrillation Current Visit: No Status: Acute Assessment and plan: History of atrial fibrillation on anticoagulation. INR nearly therapeutic at 1.7. Currently in sinus rhythm. -Continue warfarin and beta freda. Qualifiers: Atrial fibrillation type: unspecified Qualified Code(s): I48.91 - Unspecified atrial fibrillation - Time Spent With Patient Total time spent is greater than 50% in coordination of care (as documented) at patient's floor/unit and/or counseling patient:
[2019-05-20 01:58] LABS: Hematocrit 36.1 % (37.5-50.1); Hemoglobin 11.1 g/dL (12.9-16.9); Mean Corpuscular HGB Conc 30.7 g/dL (31.6-35.5); Mean Corpuscular Hemoglobin 28.2 pg (28.0-33.3); Mean Corpuscular Volume 91.9 fL (83.0-100.0); Mean Platelet Volume 10.1 fL (9.4-12.4); Platelet Count 140 K/mcL (140-400); Red Blood Count 3.93 M/mcL (4.19-5.50); Red Cell Distribution Width 14.7 % (11.5-14.5); White Blood Count 5.9 K/mcL (4.3-11.1)
[2019-05-20 02:14] LABS: INR 1.7
[2019-05-20 02:18] LABS: BUN/Creatinine Ratio 29 (6-26); Blood Urea Nitrogen 28 mg/dL (8-23); Calcium 8.6 mg/dL (8.6-10.3); Carbon Dioxide 23 mEq/L (23-29); Chloride 108 mEq/L (98-107); Glucose 128 mg/dL (70-105); Osmolality,Calculated 293 (280-300); Potassium 4.1 mEq/L (3.5-5.1); Sodium 138 mEq/L (136-145); eGFR For African Americans > 60 (> 60); eGFR For Non-African Americans > 60 (> 60)
[2019-05-20] MEDS ORDERED: *HR* Dextrose 50 % in Water (Syg) 50 ML SYRINGE IVP PRN (08:08)
[2019-05-20] MEDS ORDERED: Dextrose Gel 15 GM/37.5 ML TUBE PO PRN ×2 (08:08)
[2019-05-20] MEDS ORDERED: D5% in Water 1,000 ML IVC PRN (08:08)
--- NOTE | 2019-05-20 09:55 | Event Note ---
Date of Encounter: 05/20/19 Time of Encounter: 09:53 79-year-old male with multiple CV risk factors presented with left-sided chest pain and abdominal pain. He was here about 2 weeks ago for chest pain, and that time, cardiac workup including echocardiogram and stress test were negative. He reported the chest pain can be elicited by turning from left-sided to right- sided. CT abdomen showed possible bladder infection, urine culture obtained. Patient started on IV Rocephin. Troponin was negative 2. Overall, patient is low risk for ACS, if Trop was negative for 3 times, we will plan to discharge patient and follow-up with PCP and cardiology.
[2019-05-20] MEDS: Insulin LISPRO 300 UNITS/3 ML VIAL SQ SCH ×2 (14:29→18:14)
--- NOTE | 2019-05-20 14:56 | Electrocardiograph Report ---
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
--- NOTE | 2019-05-20 14:59 | Electrocardiograph Report ---
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
[2019-05-20] MEDS ORDERED: Mag Hydrox/Al Hydrox/Simeth 30 ML UDC PO PRN (15:52)
[2019-05-20] MEDS ORDERED: Warfarin perPT PO PRN (18:00)
[2019-05-20] MEDS ORDERED: *HR* Warfarin 7.5 MG TABLET PO ONE (18:00)
[2019-05-20] MEDS ORDERED: traZODone 50 MG TABLET PO SCH (21:00)
[2019-05-20] MEDS ORDERED: Gabapentin 300 MG CAPSULE PO SCH (21:00)
[2019-05-20] MEDS ORDERED: Insulin LISPRO 300 UNITS/3 ML VIAL SQ SCH (21:00)
[2019-05-20] MEDS ORDERED: *HR* OxyCODONE/APAP 10/325 TABLET PO ONE (23:03)
[2019-05-21 06:10] LABS: Hematocrit 38.1 % (37.5-50.1); Hemoglobin 11.9 g/dL (12.9-16.9); Mean Corpuscular HGB Conc 31.2 g/dL (31.6-35.5); Mean Corpuscular Hemoglobin 28.5 pg (28.0-33.3); Mean Corpuscular Volume 91.4 fL (83.0-100.0); Platelet Count 152 K/mcL (140-400); Red Blood Count 4.17 M/mcL (4.19-5.50); Red Cell Distribution Width 14.8 % (11.5-14.5); White Blood Count 5.2 K/mcL (4.3-11.1)
[2019-05-21 06:20] LABS: INR 1.4; Prothrombin Time 15.7 Seconds (9.4-12.1)
[2019-05-21 06:23] LABS: BUN/Creatinine Ratio 25 (6-26); Blood Urea Nitrogen 24 mg/dL (8-23); Calcium 9.2 mg/dL (8.6-10.3); Carbon Dioxide 26 mEq/L (23-29); Chloride 105 mEq/L (98-107); Glucose 133 mg/dL (70-105); Osmolality,Calculated 294 (280-300); Potassium 4.4 mEq/L (3.5-5.1); Sodium 139 mEq/L (136-145); eGFR For African Americans > 60 (> 60); eGFR For Non-African Americans > 60 (> 60)
[2019-05-21 08:04] VITALS: BP 142/67
--- NOTE | 2019-05-21 08:26 | Discharge Summary ---
- NOTES TO OUTPATIENT PROVIDER Notes to Outpatient Provider: f/u with PCP within a week. Orders not resulted at time of discharge: Pending orders 05/19/19 20:05 Culture,Urine [RM] Stat Date of Encounter: 05/21/19 Time of Encounter: 08:23 - Discharge Diagnosis (1) Abdominal pain Priority: Primary Status: Acute Qualifiers: Abdominal location: right lower quadrant Qualified Code(s): R10.31 - Right lower quadrant pain (2) Chest pain Priority: Primary Status: Acute Qualifiers: Chest pain type: precordial pain Qualified Code(s): R07.2 - Precordial pain (3) UTI (urinary tract infection) Priority: Primary Status: Acute Assessment and Plan: Patient presented with abdominal distention. Found to have thickening of bladder wall on CT scan. Received one-time dose of ceftriaxone. urine culture grew gram negative, continue Rocephin for now. f/u with sensitivity study results. Qualifiers: Urinary tract infection type: acute cystitis Hematuria presence: without hematuria Qualified Code(s): N30.00 - Acute cystitis without hematuria (4) Atrial fibrillation Priority: Secondary Status: Chronic Qualifiers: Atrial fibrillation type: unspecified Qualified Code(s): I48.91 - Unspecified atrial fibrillation Hospital course: Mr. Salmeron is a 79 year old male past medical history of coronary artery disease, diabetes, A. fib on anticoagulation, hypothyroidism came with complaint of chest pain and abdominal pain. Patient reports he has been having abdominal pain for the past 2 days with radiation to his right groin associated with abdominal distention. Pain is nonradiating, 7 out of 10 in intensity. Denies any nausea, vomiting or diarrhea. No reports of dysuria. Patient also endorsed left-sided chest pain and some shortness of breath. Patient was recently discharged in April for evaluation of chest pain. Underwent nuclear stress testing which was negative for ischemia. On arrival patient was afebrile, hemodynamically stable. Laboratory workup was relatively unremarkable including a negative troponin. UA was suggestive of possible UTI. CT scan of the abdomen and pelvis notable for bladder wall thickening, but was otherwise unremarkable. EKG showed sinus rhythm with no evidence of ST or T-wave changes concerning for ischemia. Patient was given a one-time dose of ceftriaxone in the ED with plans for discharge. However, upon attempted discharge the patient had sudden onset of chest pain, he states this is the second time that this is happened in the past 2 days the first occurring last night at approximately midnight which subsided soon after it began. Patient was admitted for further observation. Serial troponin was negative, tele monitoring has no acute st-t changes. Pt chest pain has resolved since admission. Chest pain was reproducible by pressing the chest wall and worsened by change of position. Overall low risk of ACS. Urine culture grew gram negative rods, IV abx changed to oral Levaquin based on recent sensitivity studies. Pt discharged home, one week prescription of Levaquin provided, f/u with PCP within 1 week. Discharge discussed with: patient Time spent discussing smoking cessation with patient: more than 10 minutes - Time Spent with Patient Total time spent providing and/or coordinating discharge services: Time spent: Greater than 30 minutes - Discharge Medications Prescriptions: New Levofloxacin [Levaquin] 500 mg PO DAILY #7 tablet Continued Aspirin Enteric Coated [Aspirin EC] 81 mg PO DAILY Atorvastatin Calcium [Lipitor] 80 mg PO DAILY Nitroglycerin 0.4 mg SL Q5MIN PRN #14 tab.subl PRN Reason: Chest Pain Sertraline [Zoloft] 100 mg PO DAILY BuPROPion XL (24 HR) [Wellbutrin Xl] 150 mg PO QAM Topiramate [Topamax] 50 mg PO HS Ezetimibe [Zetia] 10 mg PO DAILY Omeprazole [PriLOSEC] 20 mg PO DAILY Tamsulosin HCl [Flomax] 0.4 mg PO DAILY Lisinopril [Zestril] 10 mg PO BID Gabapentin [Neurontin] 300 mg PO HS Warfarin [Coumadin] 5 mg PO TUTHSA Warfarin [Coumadin] 7.5 mg PO SUMOWEFR Albuterol Sulfate [Proventil Inhaler] 2 puff IH Q4H PRN #1 inhaler PRN Reason: Shortness Of Breath Metformin HCl [Fortamet] 1,000 mg PO QPM@1800 traZODone [TraZODone] 50 mg PO HS Insulin Glargine,Hum.rec.anlog [Lantus Solostar] 20 unit SQ QAM Levothyroxine [Synthroid] 200 mcg PO DAILY@0630 Cyclobenzaprine HCl 5 mg PO HS PRN PRN Reason: Muscle Spasm Amitriptyline [Elavil] 25 mg PO HS Docusate [Colace] 100 mg PO BID PRN PRN Reason: Constipation Multivitamin [Daily Multiple Vitamin] 1 tab PO DAILY Promethazine [Phenergan] 25 mg PO Q6H PRN PRN Reason: Nausea amLODIPine [Norvasc] 5 mg PO DAILY tablet Metoprolol Succinate [Toprol Xl] 25 mg PO DAILY 30 Days #30 tab.er.24h Butalb/Acetaminophen/Caffeine [Fioricet 50-300-40 mg Capsule] 1 cap PO DAILY PRN PRN Reason: Migraine Headache OxyCODONE/APAP 10/325 [Percocet 10/325 MG] 1 tab PO QID PRN 2 Days #8 tablet PRN Reason: Pain Home Medications: Aspirin Enteric Coated [Aspirin EC] 81 mg PO DAILY 08/17/17 [History] Atorvastatin Calcium [Lipitor] 80 mg PO DAILY 08/17/17 [History] Nitroglycerin 0.4 mg SL Q5MIN PRN #14 tab.subl 08/22/17 [Rx] BuPROPion XL (24 HR) [Wellbutrin Xl] 150 mg PO QAM 12/16/17 [History] Ezetimibe [Zetia] 10 mg PO DAILY 12/16/17 [History] Sertraline [Zoloft] 100 mg PO DAILY 12/16/17 [History] Topiramate [Topamax] 50 mg PO HS 12/16/17 [History] Lisinopril [Zestril] 10 mg PO BID 03/28/18 [History] Omeprazole [PriLOSEC] 20 mg PO DAILY 03/28/18 [History] Tamsulosin HCl [Flomax] 0.4 mg PO DAILY 03/28/18 [History] Gabapentin [Neurontin] 300 mg PO HS 09/04/18 [History] Warfarin [Coumadin] 5 mg PO TUTHSA 09/04/18 [History] Warfarin [Coumadin] 7.5 mg PO SUMOWEFR 09/04/18 [History] Albuterol Sulfate [Proventil Inhaler] 2 puff IH Q4H PRN #1 inhaler 01/30/19 [Rx] Metformin HCl [Fortamet] 1,000 mg PO QPM@1800 02/20/19 [History] traZODone [TraZODone] 50 mg PO HS 02/20/19 [History] Amitriptyline [Elavil] 25 mg PO HS 05/02/19 [History] Cyclobenzaprine HCl 5 mg PO HS PRN 05/02/19 [History] Docusate [Colace] 100 mg PO BID PRN 05/02/19 [History] Insulin Glargine,Hum.rec.anlog [Lantus Solostar] 20 unit SQ QAM 05/02/19 [History] Levothyroxine [Synthroid] 200 mcg PO DAILY@0630 05/02/19 [History] Multivitamin [Daily Multiple Vitamin] 1 tab PO DAILY 05/02/19 [History] Promethazine [Phenergan] 25 mg PO Q6H PRN 05/02/19 [History] Metoprolol Succinate [Toprol Xl] 25 mg PO DAILY 30 Days #30 tab.er.24h 05/04/19 [Rx] amLODIPine [Norvasc] 5 mg PO DAILY tablet 05/04/19 [Rx] Butalb/Acetaminophen/Caffeine [Fioricet 50-300-40 mg Capsule] 1 cap PO DAILY PRN 05/20/19 [History] Levofloxacin [Levaquin] 500 mg PO DAILY #7 tablet 05/21/19 [Rx] OxyCODONE/APAP 10/325 [Percocet 10/325 MG] 1 tab PO QID PRN 2 Days #8 tablet 05/21/19 [Rx] Allergies/Adverse Reactions: Allergy/AdvReac Type Severity Reaction Status Date / Time No Known Allergies Allergy Verified 05/20/19 17:52 Date of admission: 05/20/19 00:12 Primary care physician: PCP NONE Anticipated date of discharge: 05/21/19 - Constitutional Vitals: Temp Pulse Resp BP Pulse Ox 97.6 F 60 15 142/67 93 05/21/19 07:48 05/21/19 07:48 05/21/19 07:48 05/21/19 07:48 05/21/19 07:48 General appearance: Present: A&O X 3 Exam: General: Alert and oriented 3 Skin:Normal color, no rash, no lesions. HEENT:EOM, pupils equal, round and reactive. Cardiovascular:Normal S1 & S2, no rubs, murmurs or gallops. No JVD. Pulse regular. Lungs:Normal breath sounds, no wheezes or crackles. Abdomen: Soft, mildly distended with tenderness to palpation in the right lower quadrant. Extremities:No deformity, no edema or tenderness, no joint swelling or clubbing. Neurological:Normal cognition and motor skills. Pulses:Carotid and radial pulses normal +2. Rest of the physical exam is non contributory - Patient Status Disposition: Home, Self-Care Condition: Fair Functional capacity at discharge: independent ambulation Overall status at discharge: patient is progressing back to baseline - Discharge Instructions Follow Up With: Peter Carlson MD [Partnered Physician] - - Diet and Activity Activity: increase activity as tolerated Diet: diabetic diet, low fat, low cholesterol, low salt diet
[2019-05-21] MEDS ORDERED: amLODIPine 5 MG TABLET PO SCH (09:00)
[2019-05-21] MEDS: Insulin LISPRO 300 UNITS/3 ML VIAL SQ SCH (09:12)
== END 2019-05-21 10:58 | disposition home or self-care (01) ==
LOC: 3BNU 19:34 → EMEROOARM 19:34 → 3BNU 05-20 01:04
PROVIDERS: ADMIT Internal Medicine; ATTEND Internal Medicine

== ENCOUNTER 2019-06-24 13:11 | Inpatient (IN) ==
[2019-06-24 15:17] LABS: Basophils % 0.1 %; Hematocrit 38.3 % (37.5-50.1); Hemoglobin 12.1 g/dL (12.9-16.9); Immature Granulocytes % 0.6 % (0-4); Lymphocytes # 0.9 K/mcL (0.6-4.6); Lymphocytes % 8.2 %; Mean Corpuscular HGB Conc 31.6 g/dL (31.6-35.5); Mean Corpuscular Hemoglobin 28.9 pg (28.0-33.3); Mean Corpuscular Volume 91.4 fL (83.0-100.0); Mean Platelet Volume 10.1 fL (9.4-12.4); Monocytes # 0.9 K/mcL (0.0-1.3); Monocytes % 7.8 %; Platelet Count 164 K/mcL (140-400); Red Blood Count 4.19 M/mcL (4.19-5.50); Red Cell Distribution Width 14.4 % (11.5-14.5); Segmented Neutrophils % 83.3 %; White Blood Count 10.8 K/mcL (4.3-11.1)
--- NOTE | 2019-06-24 15:36 | Emergency Department Note ---
Disposition Clinical Impression: Vertigo Fall Qualifiers: Encounter type: initial encounter Qualified Code(s): W19.XXXA - Unspecified fall, initial encounter UTI (urinary tract infection) Qualifiers: Urinary tract infection type: catheter-associated UTI Indwelling urinary catheter type: indwelling urethral catheter Encounter type: initial encounter Qu alified Code(s): T83.511A - Infection and inflammatory reaction due to indwelling urethral catheter, initial encounter; N39.0 - Urinary tract infection, site not specified Disposition: Admitted As Inpatient Condition: Fair Referrals: Peter Carlson MD [Primary Care Provider] - Forms: ED Satisfaction Letter Time of Disposition: 16:35 General Adult HPI - General Chief complaint: ED Dizziness Stated complaint: headache,fever,dizzy Time Seen by Provider: 06/24/19 14:36 Source: patient, family Limitations: no limitations Nursing Notes Reviewed: Yes Vital Signs Reviewed: Yes - History of Present Illness Pain Scale: 8 - Related Data Home Medications Medication Instructions Recorded Confirmed Aspirin Enteric Coated [Aspirin EC] 81 mg PO DAILY 08/17/17 05/02/19 Atorvastatin Calcium [Lipitor] 80 mg PO DAILY 08/17/17 05/20/19 BuPROPion XL (24 HR) [Wellbutrin 150 mg PO QAM 12/16/17 05/20/19 Xl] Ezetimibe [Zetia] 10 mg PO DAILY 12/16/17 05/02/19 Sertraline [Zoloft] 100 mg PO DAILY 12/16/17 05/20/19 Topiramate [Topamax] 50 mg PO HS 12/16/17 05/20/19 Lisinopril [Zestril] 10 mg PO BID 03/28/18 05/20/19 Omeprazole [PriLOSEC] 20 mg PO DAILY 03/28/18 05/20/19 Tamsulosin HCl [Flomax] 0.4 mg PO DAILY 03/28/18 05/20/19 Gabapentin [Neurontin] 300 mg PO HS 09/04/18 05/20/19 Warfarin [Coumadin] 5 mg PO TUTHSA 09/04/18 05/20/19 Warfarin [Coumadin] 7.5 mg PO SUMOWEFR 09/04/18 05/20/19 Metformin HCl [Fortamet] 1,000 mg PO QPM@1800 02/20/19 05/20/19 traZODone [TraZODone] 50 mg PO HS 02/20/19 05/20/19 Amitriptyline [Elavil] 25 mg PO HS 05/02/19 05/20/19 Cyclobenzaprine HCl 5 mg PO HS PRN 05/02/19 05/02/19 Docusate [Colace] 100 mg PO BID PRN 05/02/19 05/02/19 Insulin Glargine,Hum.rec.anlog 20 unit SQ QAM 05/02/19 05/02/19 [Lantus Solostar] Levothyroxine [Synthroid] 200 mcg PO DAILY@0630 05/02/19 05/20/19 Multivitamin [Daily Multiple 1 tab PO DAILY 05/02/19 05/02/19 Vitamin] Promethazine [Phenergan] 25 mg PO Q6H PRN 05/02/19 05/20/19 Butalb/Acetaminophen/Caffeine 1 cap PO DAILY PRN 05/20/19 [Fioricet 50-300-40 mg Capsule] Previous Rx's Medication Instructions Recorded Nitroglycerin 0.4 mg SL Q5MIN PRN #14 tab.subl 08/22/17 Albuterol Sulfate [Proventil 2 puff IH Q4H PRN #1 inhaler 01/30/19 Inhaler] Metoprolol Succinate [Toprol Xl] 25 mg PO DAILY 30 Days #30 05/04/19 tab.er.24h amLODIPine [Norvasc] 5 mg PO DAILY tablet 05/04/19 Levofloxacin [Levaquin] 500 mg PO DAILY #7 tablet 05/21/19 OxyCODONE/APAP 10/325 [Percocet 1 tab PO QID PRN 2 Days #8 tablet 05/21/19 10/325 MG] Doxycycline 100 mg PO BID #10 capsule 06/21/19 predniSONE [Prednisone] 50 mg PO DAILY #5 tablet 06/21/19 Allergies Allergy/AdvReac Type Severity Reaction Status Date / Time No Known Allergies Allergy Verified 05/20/19 17:52 Past Medical History - Past Medical History Medical history: Reports: atrial fibrillation, cancer, coronary artery disease, CVA, diabetes, hypertension, myocardial infarction, peripheral artery disease, SVT, thyroid disease Surgical history: Reports: cancer surgery Psychiatric history: Reports: no psych history - Social History Smoking Status: Former smoker Smokeless Tobacco Status: No Alcohol use: Reports: none Drug use: Reports: none Physical Exam - General Limitations: no limitations General appearance: alert, in no apparent distress Course Vital Signs Temperature 98.7 F 06/24/19 13:22 Pulse Rate 80 06/24/19 13:22 Respiratory Rate 18 06/24/19 13:22 Blood Pressure 144/67 06/24/19 13:22 O2 Sat by Pulse Oximetry 96 06/24/19 13:22 Temperature 98.7 F 06/24/19 13:22 Pulse Rate 68 06/24/19 16:26 Respiratory Rate 18 06/24/19 16:26 Blood Pressure 175/92 06/24/19 16:26 O2 Sat by Pulse Oximetry 98 06/24/19 16:26 Oxygen Delivery Oxygen Delivery Room Air Medical Decision Making - MDM Narrative Medical decision making narrative: Chest X-Ray 06/24/19 14:25 IMPRESSION: No new acute cardiopulmonary findings. D/ / Jackie Culp MD / Jackie Culp MD Interpreting Provider: Jackie Culp MD Head CT 06/24/19 14:57 IMPRESSION: No acute intracranial abnormality. Stable appearing senescent changes. Remote right occipital stroke. D/ / Thomas Aguirre / Thomas Aguirre Interpreting Provider: Thomas Aguirre 1630 hrs. patient has a UTI again. Looked his last culture which grew 10,000 Escherichia coli units, I am a start him on Rocephin. We will reculture the urine. With his frequent falls his scan of his had and the healing rib fractures on of bringing him into the hospital be seen. He is in agreement with this plan as is family. Patient hospitalist. - Lab Data Result diagrams: 06/24/19 14:47 06/24/19 14:47 Lab Results 06/24/19 06/24/19 06/24/19 Range/Units 14:47 14:47 16:00 WBC 10.8 (4.3-11.1) K/mcL RBC 4.19 (4.19-5.50) M/mcL Hgb 12.1 L (12.9-16.9) g/dL Hct 38.3 (37.5-50.1) % MCV 91.4 (83.0-100.0) fL MCH 28.9 (28.0-33.3) pg MCHC 31.6 (31.6-35.5) g/dL RDW 14.4 (11.5-14.5) % Plt Count 164 (140-400) K/mcL MPV 10.1 (9.4-12.4) fL Immature Gran % 0.6 (0-4) % Seg Neutrophils % 83.3 % Lymphocytes % 8.2 % Monocytes % 7.8 % Eosinophils % 0.0 % Basophils % 0.1 % Neutrophils # 9.0 H (1.6-8.9) K/mcL Lymphocytes # 0.9 (0.6-4.6) K/mcL Monocytes # 0.9 (0.0-1.3) K/mcL Eosinophils # 0.0 (0.0-0.6) K/mcL Basophils # 0.0 (0.0-0.2) K/mcL Sodium 138 (136-145) mEq/L Potassium 4.2 (3.5-5.1) mEq/L Chloride 104 (98-107) mEq/L Carbon Dioxide 27 (23-29) mEq/L BUN 31 H (8-23) mg/dL Creatinine 1.15 (0.70-1.30) mg/dL Est GFR ( Amer) > 60 (> 60) Est GFR (Non-Af Amer) > 60 (> 60) BUN/Creatinine Ratio 27 H (6-26) Glucose 194 H (70-105) mg/dL Calculated Osmolality 298 (280-300) Calcium 9.3 (8.6-10.3) mg/dL Troponin I < 0.03 (< 0.04) ng/mL Urine Color Yellow (Yellow) Urine Clarity Cloudy A (Clear) Urine pH 5.0 (5.0-8.0) pH Units Ur Specific [place] 1.021 (1.010-1.025) Urine Protein 100 H (Neg-Trace) mg/dL Urine Glucose (UA) Normal (Normal) mg/dL Urine Ketones Negative (Negative) mg/dL Urine Blood Small H (Negative) Urine Nitrite Positive A (Negative) Urine Bilirubin Negative (Negative) Urine Urobilinogen Normal (Normal) mg/dL Ur Leukocyte Esterase Large H (Negative) Urine Microscopic RBC 0-3 (0-3) per hpf Urine Microscopic WBC TNTC H (0-3) per hpf Ur Squamous Epith Cells Moderate H (None-Few) per lpf Urine Bacteria Many H (None-Few) per hpf Urine Yeast Few H (None Seen) per hpf Ur Culture Indicated? YES A (NO) Attestation Statement - Attestation Attestation: This documentation is done with the assistance of Dragon dictation. Despite efforts made to ensure accuracy, there may be inaccuracies in income tax consultant or spelling and typographical errors. I examined this patient and my medical decision-making was reviewed with the Resident Physician. I agree with the documented findings, disposition and treatment plan as described except to the extent set forth below. Patient was seen and evaluated by Dr. Montanez I agree with their evaluation and management pl an, I supervised care the patient's stay. Patient seen and evaluated today due to multiple complaints. States he was here 3 days ago they did a workup on him and finding is having left-sided rib pain. He sits tender to touch worse when he takes a deep breath. He had a chest x-ray and CTA done which were negative. He is also complaining of a fever but no fever here now. His thinks he afshan ht have a UTI as he is an indwelling catheter I do not see urinalysis done last times we will do that do not see any skin lesions his lungs sound clear. He does have a trach in place we will do a chest x-ray labs and a urinalysis on him also like to do a head CT as he stays been dizzy he says that comes and goes he had a history of that before had an MRI done several months ago and he says there are lesions there. All see if I can pull that up and reviewed the findings. He is in agreement this plan. He looks well is nontoxic in appearance. I reviewed the residents documentation and agree with the residents assessment and plan of care. I have personally had face to face time with the patient. (Brief History, Brief Exam, and MDM) I personally supervised and was present for the norris/critical portions of the following procedures completed by the resident: EKG was interpreted by the resident under my supervision, I agree with their interpretation.
[2019-06-24 15:37] LABS: BUN/Creatinine Ratio 27 (6-26); Blood Urea Nitrogen 31 mg/dL (8-23); Calcium 9.3 mg/dL (8.6-10.3); Carbon Dioxide 27 mEq/L (23-29); Chloride 104 mEq/L (98-107); Glucose 194 mg/dL (70-105); Osmolality,Calculated 298 (280-300); Potassium 4.2 mEq/L (3.5-5.1); Sodium 138 mEq/L (136-145); Troponin I < 0.03 ng/mL (< 0.04); eGFR For African Americans > 60 (> 60); eGFR For Non-African Americans > 60 (> 60)
--- NOTE | 2019-06-24 15:57 | Emergency Department Note ---
Disposition Clinical Impression: Vertigo Fall Qualifiers: Encounter type: initial encounter Qualified Code(s): W19.XXXA - Unspecified fall, initial encounter UTI (urinary tract infection) Qualifiers: Urinary tract infection type: catheter-associated UTI Indwelling urinary catheter type: indwelling urethral catheter Encounter type: initial encounter Qu alified Code(s): T83.511A - Infection and inflammatory reaction due to indwelling urethral catheter, initial encounter Disposition: Admitted As Inpatient Condition: Good Referrals: Peter Carlson MD [Primary Care Provider] - Forms: ED Satisfaction Letter Time of Disposition: 17:31 General Adult HPI - General Chief complaint: ED Dizziness Stated complaint: headache,fever,dizzy Time Seen by Provider: 06/24/19 14:36 Source: patient, family Mode of arrival: private vehicle Limitations: no limitations Nursing Notes Reviewed: Yes Vital Signs Reviewed: Yes - History of Present Illness HPI Narrative: 79-year-old male who presents with complaints of several months of dizziness that has been getting worse over the last week, as well as right-sided abdominal pain, fevers, headache, weakness. at bedside reports that her seems like he is very sick. He also notes that he has poor circulation in his right lower extremity and that his vascular surgeon wanted to remove his leg however he did not want that to happen. Patient had a CAT scan when he was at the emergency department last time of his abdomen and pelvis which showed surgical absence of appendix, gallbladder, as well as some stents in his right lower extremity, but no explanation for the right sided abdominal pain. Patient intermittently catheters himself to urinate, at bedside is concerned he may have a UTI. She is also concerned that he has some left-sided chest pain and has had some very hard falls recently. Patient denies any chest pain or shortness of breath. He denies any nausea or vomiting. He is mostly concerned about the dizziness that has been getting worse. Pain Scale: 8 - Related Data Home Medications Medication Instructions Recorded Confirmed Aspirin Enteric Coated [Aspirin EC] 81 mg PO DAILY 08/17/17 06/24/19 Atorvastatin Calcium [Lipitor] 80 mg PO DAILY 08/17/17 06/24/19 BuPROPion XL (24 HR) [Wellbutrin 150 mg PO QAM 12/16/17 06/24/19 Xl] Ezetimibe [Zetia] 10 mg PO DAILY 12/16/17 06/24/19 Sertraline [Zoloft] 100 mg PO DAILY 12/16/17 06/24/19 Topiramate [Topamax] 50 mg PO HS 12/16/17 06/24/19 Lisinopril [Zestril] 10 mg PO BID 03/28/18 06/24/19 Omeprazole [PriLOSEC] 20 mg PO DAILY 03/28/18 06/24/19 Tamsulosin HCl [Flomax] 0.4 mg PO DAILY 03/28/18 06/24/19 Gabapentin [Neurontin] 300 mg PO HS 09/04/18 06/24/19 Warfarin [Coumadin] 5 mg PO TUTHSA 09/04/18 06/24/19 Warfarin [Coumadin] 7.5 mg PO SUMOWEFR 09/04/18 06/24/19 Metformin HCl [Fortamet] 1,000 mg PO QPM@1800 02/20/19 06/24/19 traZODone [TraZODone] 50 mg PO HS 02/20/19 06/24/19 Amitriptyline [Elavil] 25 mg PO HS 05/02/19 06/24/19 Cyclobenzaprine HCl 5 mg PO HS PRN 05/02/19 06/24/19 Docusate [Colace] 100 mg PO BID PRN 05/02/19 06/24/19 Insulin Glargine,Hum.rec.anlog 20 unit SQ QAM 05/02/19 06/24/19 [Lantus Solostar] Levothyroxine [Synthroid] 200 mcg PO DAILY@0630 05/02/19 06/24/19 Multivitamin [Daily Multiple 1 tab PO DAILY 05/02/19 06/24/19 Vitamin] Promethazine [Phenergan] 25 mg PO Q6H PRN 05/02/19 06/24/19 Butalb/Acetaminophen/Caffeine 1 cap PO DAILY PRN 05/20/19 06/24/19 [Fioricet 50-300-40 mg Capsule] Previous Rx's Medication Instructions Recorded Nitroglycerin 0.4 mg SL Q5MIN PRN #14 tab.subl 08/22/17 Albuterol Sulfate [Proventil 2 puff IH Q4H PRN #1 inhaler 01/30/19 Inhaler] Metoprolol Succinate [Toprol Xl] 25 mg PO DAILY 30 Days #30 05/04/19 tab.er.24h amLODIPine [Norvasc] 5 mg PO DAILY tablet 05/04/19 Levofloxacin [Levaquin] 500 mg PO DAILY #7 tablet 05/21/19 OxyCODONE/APAP 10/325 [Percocet 1 tab PO QID PRN 2 Days #8 tablet 05/21/19 10/325 MG] Doxycycline 100 mg PO BID #10 capsule 06/21/19 predniSONE [Prednisone] 50 mg PO DAILY #5 tablet 06/21/19 Allergies Allergy/AdvReac Type Severity Reaction Status Date / Time No Known Allergies Allergy Verified 05/20/19 17:52 Review of Systems: In addition to that documented in the HPI above, the additional ROS was obtained: Constitutional: Denies chills Reports fevers Eyes: Denies vision changes ENMT: Denies sore throat Reports rhinorrhea CV: Denies chest pain Resp: Denies SOB GI: Denies vomiting or diarrhea : Reports dark urine with a strong odor MSK: Reports frequent falls due to dizziness Skin: Denies new rashes Neuro: Reports worsening dizziness Past Medical History - Past Medical History Attestation: Yes The following information was validated with the patient. Medical history: Reports: atrial fibrillation, cancer, coronary artery disease, CVA, diabetes, hypertension, myocardial infarction, peripheral artery disease, SVT, thyroid disease Surgical history: Reports: cancer surgery Psychiatric history: Reports: no psych history - Social History Smoking Status: Former smoker Smokeless Tobacco Status: No Alcohol use: Reports: none Drug use: Reports: none Physical Exam General: A&O x 3. No acute distress. Well developed, well nourished. Pt has a tracheostoma which he can talk when he occludes. Head: atraumatic, normocephalic. ENT: No conjunctival injection, no scleral icterus. PERRLA. EOMI. Oropharynx non- erythematous. mucous membranes moist. Neuro: No focal deficits, no speech deficit, no facial droop, mentating well. BUE/BLE Str 5/5. Genie UE/LE sensation intact. CN II-XII intact. Pulm: Lungs CTAB A/P. No wheezes, rales, ronchi. Cardio: RRR no m/r/g. Chest not tender to palpation. Abd: Soft, non-distended. Normoactive bowel sounds. There is a palpable mass on the right side of the abdomen that patient reports is tender, but has been present for months and has been extensively worked up. There is also a palpable mass proximal to the umbilicus that he reports is a previous hernia repair. Extremities: Radial pulses 2+ genie, dorsalis pedis/posterior tibialis 2+ genie. No LE edema. No cyanosis, clubbing. Skin: warm, dry, intact. No rashes. Psych: Appropriate mood and affect. Answers questions appropriately. Cooperative with exam. - General Limitations: no limitations General appearance: alert, in no apparent distress Course Vital Signs Temperature 98.7 F 06/24/19 13:22 Pulse Rate 80 06/24/19 13:22 Respiratory Rate 18 06/24/19 13:22 Blood Pressure 144/67 06/24/19 13:22 O2 Sat by Pulse Oximetry 96 06/24/19 13:22 Temperature 98.7 F 06/24/19 13:22 Pulse Rate 77 06/24/19 17:22 Respiratory Rate 18 06/24/19 17:22 Blood Pressure 143/105 06/24/19 17:22 O2 Sat by Pulse Oximetry 100 06/24/19 17:22 Oxygen Delivery Oxygen Delivery Room Air Medical Decision Making - [facility] Narrative Medical decision making narrative: 79-year-old male with several months of dizziness with symptoms that have been getting worse over the last week, chronic right-sided abdominal pain, and complaints of urine with a strong odor. We will obtain UA 3 straight catheter, we will get a head CT, will check basic laboratory exams. Head CT shows a remote right occipital infarct. Urine was concerning for signs of infection. Patient was given Rocephin while in the department. Patient will be admitted to the hospitalist for further neurologic workup. Pt was admitted to the hospitalist, Dr. Narayanan, who agreed to accept the patient to his service. Results of the workup including any imaging and/or labwork was shared with the patient at bedside. Patient was given an opportunity to ask questions at bedside and all of their concerns were addressed. Patient verbalized understanding and agreement with plan of care. Pt remained stable w hile in the department. - Medical Records Medical records reviewed: Yes I reviewed the patient's medical records. - Lab Data Lab results reviewed: Yes I reviewed the patient's lab results. Result diagrams: 06/24/19 14:47 06/24/19 14:47 Lab Results 06/24/19 06/24/19 06/24/19 Range/Units 14:47 14:47 16:00 WBC 10.8 (4.3-11.1) K/mcL RBC 4.19 (4.19-5.50) M/mcL Hgb 12.1 L (12.9-16.9) g/dL Hct 38.3 (37.5-50.1) % MCV 91.4 (83.0-100.0) fL MCH 28.9 (28.0-33.3) pg MCHC 31.6 (31.6-35.5) g/dL RDW 14.4 (11.5-14.5) % Plt Count 164 (140-400) K/mcL MPV 10.1 (9.4-12.4) fL Immature Gran % 0.6 (0-4) % Seg Neutrophils % 83.3 % Lymphocytes % 8.2 % Monocytes % 7.8 % Eosinophils % 0.0 % Basophils % 0.1 % Neutrophils # 9.0 H (1.6-8.9) K/mcL Lymphocytes # 0.9 (0.6-4.6) K/mcL Monocytes # 0.9 (0.0-1.3) K/mcL Eosinophils # 0.0 (0.0-0.6) K/mcL Basophils # 0.0 (0.0-0.2) K/mcL Sodium 138 (136-145) mEq/L Potassium 4.2 (3.5-5.1) mEq/L Chloride 104 (98-107) mEq/L Carbon Dioxide 27 (23-29) mEq/L BUN 31 H (8-23) mg/dL Creatinine 1.15 (0.70-1.30) mg/dL Est GFR ( Amer) > 60 (> 60) Est GFR (Non-Af Amer) > 60 (> 60) BUN/Creatinine Ratio 27 H (6-26) Glucose 194 H (70-105) mg/dL Calculated Osmolality 298 (280-300) Calcium 9.3 (8.6-10.3) mg/dL Troponin I < 0.03 (< 0.04) ng/mL Urine Color Yellow (Yellow) Urine Clarity Cloudy A (Clear) Urine pH 5.0 (5.0-8.0) pH Units Ur Specific [place] 1.021 (1.010-1.025) Urine Protein 100 H (Neg-Trace) mg/dL Urine Glucose (UA) Normal (Normal) mg/dL Urine Ketones Negative (Negative) mg/dL Urine Blood Small H (Negative) Urine Nitrite Positive A (Negative) Urine Bilirubin Negative (Negative) Urine Urobilinogen Normal (Normal) mg/dL Ur Leukocyte Esterase Large H (Negative) Urine Microscopic RBC 0-3 (0-3) per hpf Urine Microscopic WBC TNTC H (0-3) per hpf Ur Squamous Epith Cells Moderate H (None-Few) per lpf Urine Bacteria Many H (None-Few) per hpf Urine Yeast Few H (None Seen) per hpf Ur Culture Indicated? YES A (NO) - Radiology Data Radiology results reviewed: Yes I reviewed the patient's radiology results. Chest X-Ray 06/24/19 14:25 IMPRESSION: No new acute cardiopulmonary findings. D/ / Jackie Culp MD / Jackie Culp MD Interpreting Provider: Jackie Culp MD Head CT 06/24/19 14:57 IMPRESSION: No acute intracranial abnormality. Stable appearing senescent changes. Remote right occipital stroke. D/ / Thomas Aguirre / Thomas Aguirre Interpreting Provider: Thomas Aguirre - EKG Data EKG #1 EKG attestation: Yes I reviewed and interpreted this EKG. EKG results narrative: Heart rate 81, rhythm sinus, axis left. AK 189, QRS 110, QTC 500 and prolonged. Less than [address] depression noted in leads V4, V5, V6. Flattened T waves noted in leads V3 through V6. No previous EKG available for comparison.
[2019-06-24 16:09] LABS: Bilirubin,Urine Negative (Negative); Blood,Urine Small (Negative); Clarity,Urine Cloudy (Clear); Color,Urine Yellow (Yellow); Glucose,Urine (UA) Normal (Normal); Ketones,Urine Negative (Negative); Leukocyte Esterase,Urine Large (Negative); Nitrite,Urine Positive (Negative); Protein,Urine 100 mg/dL (Neg-Trace); Specific Gravity,Urine 1.021 (1.010-1.025); Urobilinogen,Urine Normal (Normal)
[2019-06-24 16:12] LABS: Bacteria,Urine Many per hpf (None-Few); RBC,Urine 0-3 per hpf (0-3); Squamous Epithelial Cell,Urine Moderate per lpf (None-Few); WBC,Urine TNTC per hpf (0-3)
[2019-06-24 16:22] LABS: Yeast,Urine Few per hpf (None Seen)
[2019-06-24] MEDS ORDERED: cefTRIAXone 1,000 MG in Water for inj. (sterile) 10 ML IVP ONE (16:32)
[2019-06-24] MEDS ORDERED: Nitroglycerin 0.4 MG TAB.SUBL SL PRN (17:36)
[2019-06-24] MEDS ORDERED: *HR* OxyCODONE/APAP 10/325 TABLET PO PRN (17:36)
[2019-06-24] MEDS ORDERED: Acetaminophen 325 MG TABLET PO PRN (17:41)
[2019-06-24] MEDS ORDERED: Naloxone 0.4 MG/ML INJ IVP PRN (17:41)
[2019-06-24] MEDS ORDERED: Mag Hydrox/Al Hydrox/Simeth 30 ML UDC PO PRN (17:41)
[2019-06-24] MEDS ORDERED: Ondansetron 4 MG/2 ML VIAL IVP PRN (17:41)
[2019-06-24] MEDS ORDERED: D5% in Water 1,000 ML IVC PRN (17:44)
[2019-06-24] MEDS ORDERED: *HR* Dextrose 50 % in Water (Syg) 50 ML SYRINGE IVP PRN (17:44)
[2019-06-24] MEDS ORDERED: Dextrose Gel 15 GM/37.5 ML TUBE PO PRN ×2 (17:44)
[2019-06-24] MEDS ORDERED: Warfarin perPT PO PRN (18:00)
[2019-06-24] MEDS ORDERED: Isovue-370 500 ML BOTTLE IVP ONE (18:18)
--- NOTE | 2019-06-24 18:30 | Internal Med History&Physical ---
Date of Encounter: 06/24/19 Time of Encounter: 18:20 Internal Medicine - H&P: HPI Admitted From: Home Plans for Post Hospital Care: Home History of present illness: Mr. Salmeron is a 79 year old male with multiple comorbidities significant for nasopharyngeal cancer status post tracheostomy, chronic atrial fibrillation on Coumadin, CAD, diabetes mellitus, peripheral vascular disease including bilateral coronary stenosis and severe right-sided vertebral artery stenosis, neurogenic bladder secondary to back surgery. hypertension, hyperlipidemia who presented with several month history of dizziness/lightheadedness. It has progressively gotten worse in the last week, which prompted him to ED on last Monday. At that time, acute bronchitis was suspected, patient was prescribed oral antibiotics and steroid and was discharged. However patient's symptoms did not improve and he was brought in again to the ED today. The dizziness/lightheadedness occurs when the patient changes position from sitting to standing. He denies dehydration, he reported absence of chest pain, shortness of breath, or palpitation. He reported history of carotid stenosis in the past, her recent carotid Doppler in April showed 50-79% stenosis on bilateral ICA. A CT A of her head/neck in 04/2018 also showed severe stenosis of right vertebral artery. Patient performs straight catheterization himself because of neurogenic bladder. In the ED, patient vital signs were stable, labs were unremarkable including a negative troponin., EKG has no acute ST-T change. UA showed positive nitrates and elevated WBC count, however, patient denies urinary symptoms such as d ysuria/frequency/urgency. He received 1 dose of Rocephin. Will be admitted for further evaluation. CODE STATUS discussed with patient and family, he will be full code while in the hospital. Past Med Surg Social Fam HX - Past Medical History Medical history: atrial fibrillation, cancer, coronary artery disease, CVA, diabetes, hypertension, myocardial infarction, peripheral artery disease, SVT, thyroid disease Additional medical history: nose cancer Psychiatric history: no psych history - Past Surgical History Surgical History: cancer surgery Additional surgical history: BACK SURGERY, tracheostomy, Skin CA - Social History Smoking Status: Former smoker Smokeless Tobacco Status: No Alcohol use: none Drug use: none - Family History Mother Living Status: Hx Family Cardiac Disorders: No Hx Family Respiratory Disorders: No Hx Family Cancer: Yes (Lung CA) Hx Family GI Disorders: No Hx Family Endocrine Disorder: No Hx Family Neuromuscular Disorders: No Hx Family Neurologic Disorders: No Hx Family HEENT Disorders: No Hx Family Autoimmune Disorders: No Father Living Status: Hx Family Cardiac Disorders: No Hx Family Respiratory Disorders: No Hx Family Cancer: Yes (Lung Ca) Hx Family GI Disorders: No Hx Family Endocrine Disorder: No Hx Family Neuromuscular Disorders: No Hx Family Neurologic Disorders: No Hx Family HEENT Disorders: No Hx Family Autoimmune Disorders: No Sister Living Status: Hx Family Cancer: Yes (lung cancer) Internal Medicine - H&P: Meds Aspirin Enteric Coated [Aspirin EC] 81 mg PO DAILY 08/17/17 [History] Atorvastatin Calcium [Lipitor] 80 mg PO DAILY 08/17/17 [History] Nitroglycerin 0.4 mg SL Q5MIN PRN #14 tab.subl 08/22/17 [Rx] BuPROPion XL (24 HR) [Wellbutrin Xl] 150 mg PO QAM 12/16/17 [History] Ezetimibe [Zetia] 10 mg PO DAILY 12/16/17 [History] Sertraline [Zoloft] 100 mg PO DAILY 12/16/17 [History] Topiramate [Topamax] 50 mg PO HS 12/16/17 [History] Lisinopril [Zestril] 10 mg PO BID 03/28/18 [History] Omeprazole [PriLOSEC] 20 mg PO DAILY 03/28/18 [History] Tamsulosin HCl [Flomax] 0.4 mg PO DAILY 03/28/18 [History] Gabapentin [Neurontin] 300 mg PO HS 09/04/18 [History] Warfarin [Coumadin] 5 mg PO TUTHSA 09/04/18 [History] Warfarin [Coumadin] 7.5 mg PO SUMOWEFR 09/04/18 [History] Albuterol Sulfate [Proventil Inhaler] 2 puff IH Q4H PRN #1 inhaler 01/30/19 [Rx] Metformin HCl [Fortamet] 1,000 mg PO QPM@1800 02/20/19 [History] traZODone [TraZODone] 50 mg PO HS 02/20/19 [History] Amitriptyline [Elavil] 25 mg PO HS 05/02/19 [History] Cyclobenzaprine HCl 5 mg PO HS PRN 05/02/19 [History] Docusate [Colace] 100 mg PO BID PRN 05/02/19 [History] Insulin Glargine,Hum.rec.anlog [Lantus Solostar] 20 unit SQ QAM 05/02/19 [History] Levothyroxine [Synthroid] 200 mcg PO DAILY@0630 05/02/19 [History] Multivitamin [Daily Multiple Vitamin] 1 tab PO DAILY 05/02/19 [History] Promethazine [Phenergan] 25 mg PO Q6H PRN 05/02/19 [History] Metoprolol Succinate [Toprol Xl] 25 mg PO DAILY 30 Days #30 tab.er.24h 05/04/19 [Rx] amLODIPine [Norvasc] 5 mg PO DAILY tablet 05/04/19 [Rx] Butalb/Acetaminophen/Caffeine [Fioricet 50-300-40 mg Capsule] 1 cap PO DAILY PRN 05/20/19 [History] Levofloxacin [Levaquin] 500 mg PO DAILY #7 tablet 05/21/19 [Rx] OxyCODONE/APAP 10/325 [Percocet 10/325 MG] 1 tab PO QID PRN 2 Days #8 tablet 05/21/19 [Rx] Doxycycline 100 mg PO BID #10 capsule 06/21/19 [Rx] predniSONE [Prednisone] 50 mg PO DAILY #5 tablet 06/21/19 [Rx] Allergy/AdvReac Type Severity Reaction Status Date / Time No Known Allergies Allergy Verified 05/20/19 17:52 All Systems PM: A 10-system review of systems was performed and is negative for pertinent findings except as documented above in the HPI. Review of systems: REVIEW OF SYSTEMS: CONSTITUTIONAL: No weight loss, fever, chills, weakness or fatigue. HEENT: Eyes: No visual loss, blurred vision, double vision or yellow sclerae. Ears, Nose, Throat: No hearing loss, sneezing, congestion, runny nose or sore throat. SKIN: No rash or itching. CARDIOVASCULAR: see HPI. RESPIRATORY: No shortness of breath, cough or sputum. GASTROINTESTINAL: No anorexia, nausea, vomiting or diarrhea. No abdominal pain or blood. GENITOURINARY: see HPI. NEUROLOGICAL: No headache, dizziness, syncope, paralysis, ataxia, numbness or tingling in the extremities. No change in bowel or bladder control. MUSCULOSKELETAL: No muscle, back pain, joint pain or stiffness. HEMATOLOGIC: No anemia, bleeding or bruising. LYMPHATICS: No enlarged nodes. No history of splenectomy. PSYCHIATRIC: No history of depression or anxiety. ENDOCRINOLOGIC: No reports of sweating, cold or heat intolerance. No polyuria or polydipsia. - Constitutional Vitals: Temp Pulse Resp BP Pulse Ox 98.7 F 77 18 143/105 100 06/24/19 13:22 06/24/19 17:22 06/24/19 17:22 06/24/19 17:22 06/24/19 17:22 General appearance: Present: A&O X 3 Exam: PHYSICAL EXAMINATION: GENERAL APPEARANCE: The patient is alert, oriented and in no acute distress. HEENT: Head is normocephalic. The sinuses are nontender. Pupils are equal and reactive. The nares are patent. Oropharynx clear without lesions. NECK: Carotid bruit appreciated on both sides. HEART: Regular rate and rhythm. LUNGS: No crackles or wheezes are heard. ABDOMEN: Soft, nontender, nondistended with good bowel sounds heard. Inguinal area is normal. EXTREMITIES: Without cyanosis, clubbing or edema. NEUROLOGICAL: Gross nonfocal. SKIN: Warm and dry without any rash. Internal Med - H&P Results - Labs CBC & Chem 7: 06/24/19 14:47 06/24/19 14:47 Labs: Short CBC 06/24/19 Range/Units 14:47 WBC 10.8 (4.3-11.1) K/mcL Hgb 12.1 L (12.9-16.9) g/dL Hct 38.3 (37.5-50.1) % Plt Count 164 (140-400) K/mcL Neutrophils # 9.0 H (1.6-8.9) K/mcL BMP 06/24/19 14:47 Sodium 138 Potassium 4.2 Chloride 104 Carbon Dioxide 27 BUN 31 H Creatinine 1.15 Glucose 194 H Calcium 9.3 Cardiac Enzymes 06/24/19 Range/Units 14:47 Troponin I < 0.03 (< 0.04) ng/mL Urine 06/24/19 Range/Units 16:00 Urine Color Yellow (Yellow) Urine Clarity Cloudy A (Clear) Urine pH 5.0 (5.0-8.0) pH Units Ur Specific [place] 1.021 (1.010-1.025) Urine Protein 100 H (Neg-Trace) mg/dL Urine Glucose (UA) Normal (Normal) mg/dL - Impressions ITS Impressions Chest X-Ray 06/24/19 14:25 IMPRESSION: No new acute cardiopulmonary findings. D/ / Jackie Culp MD / Jackie Culp MD Interpreting Provider: Jakcie Culp MD Head CT 06/24/19 14:57 IMPRESSION: No acute intracranial abnormality. Stable appearing senescent changes. Remote right occipital stroke. D/ / Thomas Aguirre / Thomas Aguirre Interpreting Provider: Thomas Aguirre - Assessment and Plan (1) Lightheadedness Current Visit: Yes Status: Acute Assessment and plan: 79-year-old gentleman with known history of bilateral carotid stenosis, right side vertebral artery stenosis, postural hypotension presented with several month history of progressively worsening lightheadedness/dizziness. Dizziness o ccurs when the patient change position from sitting/lying to standing. He reported absence of chest pain, palpitation, or shortness of breath. Physical exam, bilateral carotid bruits was appreciated. - Based on history, lightheadedness is likely caused by orthostatic hypotension. Patient denies dehydration. His home medication was carefully reviewed, Flomax could cause orthostatic hypertension, but patient has been on this medications for years. Lab does not support dehydration. - We will check orthostatic vital signs. We will continue cycling troponin, telemetry monitoring, EKG as needed. - He recently had echocardiogram in April, no reported severe valvular disease, no indication to repeat. He also had a stress test in April which was normal. - We will repeat CTA of head and neck to further characterize vascular stenosis. - Fall precaution. (2) CAD (coronary artery disease) Current Visit: No Status: Chronic Assessment and plan: Patient denies chest pain, first set of troponin was negative. Continue home medication including aspirin. Qualifiers: Coronary Disease-Associated Artery/Lesion type: bypass graft [place] vs. transplanted heart: [place] heart Associated angina: with stable angina Qualified Code(s): I25.708 - Atherosclerosis of coronary artery bypass graft(s), unspecified, with other forms of angina pectoris (3) Diabetes Current Visit: No Status: Chronic Assessment and plan: Continue basal insulin at home dose in addition to insulin sliding scale. Repeat A1c in the morning. 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 Qualifiers: Atrial fibrillation type: paroxysmal Qualified Code(s): I48.0 - Paroxysmal atrial fibrillation (5) Nasopharyngeal cancer Current Visit: No Status: Chronic Assessment and plan: Stable, no respiratory distress. (6) Hypertension Current Visit: No Status: Chronic Assessment and plan: BP slightly elevated, continue monitoring, adjust medication if indicated. Qualifiers: Hypertension type: essential hypertension Qualified Code(s): I10 - Essential (primary) hypertension (7) Hypothyroidism, unspecified Current Visit: No Status: Chronic Assessment and plan: We will repeat a TSH and free T4, continue home medication. Qualifiers: Hypothyroidism type: other Qualified Code(s): E03.8 - Other specified hypothyroidism (8) UTI (urinary tract infection) Current Visit: No Status: Acute Assessment and plan: Patient has chronic UTI from frequent self catheterization. 2 of Escherichia coli, enterococcus, pseudomonas UTI. We will start the patient on Levaquin IV based on the sensitivity reports. Qualifiers: Urinary tract infection type: acute cystitis Hematuria presence: without hematuria Qualified Code(s): N30.00 - Acute cystitis without hematuria (9) Vertebral artery stenosis Current Visit: No Status: Chronic Assessment and plan: We will repeat CTA of her head. Qualifiers: Laterality: bilateral Qualified Code(s): I65.03 - Occlusion and stenosis of bilateral vertebral arteries (10) Postural hypotension Current Visit: No Status: Acute Assessment and plan: We will check orthostatic hypotension. Fall percussion. (11) H/O carotid artery stenosis Current Visit: No Status: Chronic Assessment and plan: Same as above. (12) DVT prophylaxis Current Visit: Yes Status: Acute Assessment and plan: Patient on Coumadin. - Time Spent With Patient Total time spent is greater than 50% in coordination of care (as documented) at patient's floor/unit and/or counseling patient: Greater than 35 minutes
[2019-06-24 20:41] LABS: INR 1.2; Prothrombin Time 13.6 Seconds (9.4-12.1)
[2019-06-24] MEDS ORDERED: *HR* OxyCODONE Immed Rel 5 MG TABLET PO ONE (20:58)
[2019-06-24] MEDS ORDERED: *HR* Warfarin 7.5 MG TABLET PO ONE (21:00)
[2019-06-24] MEDS: levoFLOXacin 500 MG/100 ML 500 MG/100 ML BAG IVPB SCH (21:29)
[2019-06-24] MEDS: Gabapentin 300 MG CAPSULE PO SCH (21:32)
[2019-06-24] MEDS: Insulin LISPRO 300 UNITS/3 ML VIAL SQ SCH (21:32)
[2019-06-24] MEDS: Topiramate 25 MG TABLET PO SCH (21:32)
[2019-06-24] MEDS: traZODone 50 MG TABLET PO SCH (21:38)
[2019-06-25 01:50] LABS: Basophils % 0.2 %; Eosinophils # 0.2 K/mcL (0.0-0.6); Eosinophils % 2.2 %; Hematocrit 36.2 % (37.5-50.1); Hemoglobin 11.3 g/dL (12.9-16.9); Immature Granulocytes % 0.5 % (0-4); Lymphocytes # 1.5 K/mcL (0.6-4.6); Lymphocytes % 18.4 %; Mean Corpuscular HGB Conc 31.2 g/dL (31.6-35.5); Mean Corpuscular Volume 93.1 fL (83.0-100.0); Mean Platelet Volume 9.9 fL (9.4-12.4); Monocytes # 0.7 K/mcL (0.0-1.3); Monocytes % 8.7 %; Neutrophils # 5.7 K/mcL (1.6-8.9); Platelet Count 136 K/mcL (140-400); Red Blood Count 3.89 M/mcL (4.19-5.50); Red Cell Distribution Width 14.4 % (11.5-14.5); White Blood Count 8.1 K/mcL (4.3-11.1)
[2019-06-25 01:57] LABS: INR 1.3; Prothrombin Time 14.4 Seconds (9.4-12.1)
[2019-06-25 02:10] LABS: Alanine Aminotransferase 18 Units/L (7-52); Albumin 3.5 g/dL (3.5-5.7); Albumin/Globulin Ratio 1.3 (1.1-2.2); Alkaline Phosphatase 62 Units/L (34-104); Aspartate Amino Transferase 19 Units/L (13-39); BUN/Creatinine Ratio 29 (6-26); Bilirubin,Total 0.3 mg/dL (0.3-1.0); Blood Urea Nitrogen 30 mg/dL (8-23); Calcium 8.9 mg/dL (8.6-10.3); Carbon Dioxide 24 mEq/L (23-29); Chloride 105 mEq/L (98-107); Chol/HDL Ratio 6.5 (0-4.9); Cholesterol 241 mg/dL (< 200); Globulin 2.8 g/dL (2.4-3.5); Glucose 154 mg/dL (70-105); HDL Cholesterol 37 mg/dL (40-59); LDL Cholesterol,Calculated 173 mg/dL (0-99); Magnesium 1.8 mg/dL (1.6-2.6); Osmolality,Calculated 295 (280-300); Phosphorous 2.8 mg/dL (2.7-4.5); Potassium 4.1 mEq/L (3.5-5.1); Sodium 138 mEq/L (136-145); Total Protein 6.3 g/dL (6.4-8.9); Triglycerides 156 mg/dL (< 150); eGFR For African Americans > 60 (> 60); eGFR For Non-African Americans > 60 (> 60)
[2019-06-25] MEDS: Insulin LISPRO 300 UNITS/3 ML VIAL SQ SCH ×4 (09:08→21:24)
--- NOTE | 2019-06-25 09:28 | Internal Med Progress Note ---
Hospitalist Progress Note - Encounter Date of Encounter: 06/25/19 Time of Encounter: 09:25 - Subjective Interval History: Mr. Salmeron is a 79 year old male with multiple comorbidities significant for nasopharyngeal cancer status post tracheostomy, chronic atrial fibrillation on Coumadin, CAD, diabetes mellitus, peripheral vascular disease including bilat eral coronary stenosis and severe right-sided vertebral artery stenosis, neurogenic bladder secondary to back surgery. hypertension, hyperlipidemia who presented with several month history of dizziness/lightheadedness. It has progressively gotten worse in the last week, which prompted him to ED on last Monday. At that time, acute bronchitis was suspected, patient was prescribed oral antibiotics and steroid and was discharged. However patient's symptoms did not improve and he was brought in again to the ED today. The dizziness/lightheadedness occurs when the patient changes position from sitting to standing. He denies dehydration, he reported absence of chest pain, shortness of breath, or palpitation. He reported history of carotid stenosis in the past, her recent carotid Doppler in April showed 50-79% stenosis on bilateral ICA. A CTA of her head/neck in 04/2018 also showed severe stenosis of right vertebral artery. Patient performs straight catheterization himself because of neurogenic bladder. In the ED, patient vital signs were stable, labs were unremarkable including a negative troponin., EKG has no acute ST-T change. UA showed positive nitrates and elevated WBC count, however, patient denies urinary symptoms such as dysuria/frequency/urgency. He received 1 dose of Rocephin. was admitted for further evaluation. Patient seen and examined in the room. Patient reported absence of chest pain, shortness of breath, or palpitation. Reported lightheadedness occasionally when he changes body position suddenly. - Exam Vitals: Temp Pulse Resp BP Pulse Ox 97.8 F 63 16 143/68 96 06/25/19 08:36 06/25/19 08:36 06/25/19 08:36 06/25/19 08:36 06/25/19 08:36 Exam: PHYSICAL EXAMINATION: GENERAL APPEARANCE: The patient is alert, oriented and in no acute distress. HEENT: Head is normocephalic. The sinuses are nontender. Pupils are equal and reactive. The nares are patent. Oropharynx clear without lesions. NECK: Carotid bruit appreciated on both sides. HEART: Regular rate and rhythm. LUNGS: No crackles or wheezes are heard. ABDOMEN: Soft, nontender, nondistended with good bowel sounds heard. Inguinal area is normal. EXTREMITIES: Without cyanosis, clubbing or edema. NEUROLOGICAL: Gross nonfocal. SKIN: Warm and dry without any rash. - Assessment and Plan (1) Lightheadedness Current Visit: Yes Status: Acute Assessment and Plan: 06/24 79-year-old gentleman with known history of bilateral carotid stenosis, right side vertebral artery stenosis, postural hypotension presented with several month history of progressively worsening lightheadedness/dizziness. Dizziness occurs when the patient change position from sitting/lying to standing. He reported absence of chest pain, palpitation, or shortness of breath. Physical exam, bilateral carotid bruits was appreciated. - Based on history, lightheadedness is likely caused by orthostatic hypotension. Patient denies dehydration. His home medication was carefully reviewed, Flomax could cause orthostatic hypertension, but patient has been on this medications for years. Lab does not support dehydration. - We will check orthostatic vital signs. We will continue cycling troponin, telemetry monitoring, EKG as needed. - He recently had echocardiogram in April, no reported severe valvular disease, n o indication to repeat. He also had a stress test in April which was normal. - We will repeat CTA of head and neck to further characterize vascular stenosis. - Fall precaution. 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 Vascular surgery was consulted. Lipid panel was repeated, LDL 173, HDL 77, patient already on 2 lipid lower agent including high strands of statins and Zetia. We will consult cardiology to help us manage the lipid issues.. Patient blood pressure is not optimally controlled, dose of lisinopril was increased, will continue monitoring BP, adjust medications to achieve target BP <120/80. Fall precaution. (2) CAD (coronary artery disease) Current Visit: No Status: Chronic Assessment and Plan: Patient denies chest pain, troponin was negative. Continue home medication including aspirin. (3) Diabetes Current Visit: No Status: Chronic Assessment and Plan: Continue basal insulin at home dose in addition to insulin sliding scale. Depending A1c. Blood sugar well controlled currently. (4) Atrial fibrillation Current Visit: No Status: Chronic Assessment and Plan: Rate controlled, continue Coumadin. INR 1.3 this morning. (5) Nasopharyngeal cancer Current Visit: No Status: Chronic Assessment and Plan: Stable, no respiratory distress. (6) Hypertension Current Visit: No Status: Chronic Assessment and Plan: BP slightly elevated, dose of lisinopril increased. Will continue monitoring blood pressure. Pending orthostatic vital signs. (7) Hypothyroidism, unspecified Current Visit: No Status: Chronic Assessment and Plan: Repeated TSH and free T4 in the morning. Continue home medication. (8) UTI (urinary tract infection) Current Visit: No Status: Acute Assessment and Plan: Patient has chronic UTI from frequent self catheterization. 2 of Escherichia coli, enterococcus, pseudomonas UTI. We will start the patient on Levaquin IV based on the sensitivity reports. (9) Vertebral artery stenosis Current Visit: No Status: Chronic Assessment and Plan: Same as above. (10) Postural hypotension Current Visit: No Status: Acute Assessment and Plan: We will check orthostatic VS. Fall percussion. (11) H/O carotid artery stenosis Current Visit: No Status: Chronic Assessment and Plan: Same as above. (12) DVT prophylaxis Current Visit: Yes Status: Acute Assessment and Plan: Patient on Coumadin. INR 1.3 this morning. Pharmacy to dose. - Time Spent with Patient Total time spent is greater than 50% in coordination of care (as documented) at patient's floor/unit and/or counseling patient: Greater than 35 minutes Plan of Care Discussed with: patient Internal Medicine: Result - Labs CBC & Chem 7: 06/25/19 01:10 06/25/19 01:10 Labs: Short CBC 06/24/19 06/25/19 Range/Units 14:47 01:10 WBC 10.8 8.1 (4.3-11.1) K/mcL Hgb 12.1 L 11.3 L (12.9-16.9) g/dL Hct 38.3 36.2 L (37.5-50.1) % Plt Count 164 136 L (140-400) K/mcL Neutrophils # 9.0 H 5.7 (1.6-8.9) K/mcL BMP 06/24/19 06/25/19 14:47 01:10 Sodium 138 138 Potassium 4.2 4.1 Chloride 104 105 Carbon Dioxide 27 24 BUN 31 H 30 H Creatinine 1.15 1.03 Glucose 194 H 154 H Calcium 9.3 8.9 Cardiac Enzymes 06/24/19 06/24/19 06/25/19 Range/Units 14:47 20:19 01:10 Troponin I < 0.03 < 0.03 < 0.03 (< 0.04) ng/mL Liver Function 06/25/19 Range/Units 01:10 Total Bilirubin 0.3 (0.3-1.0) mg/dL AST 19 (13-39) Units/L ALT 18 (7-52) Units/L Alkaline Phosphatase 62 (34-104) Units/L Albumin 3.5 (3.5-5.7) g/dL Urine 06/24/19 Range/Units 16:00 Urine Color Yellow (Yellow) Urine Clarity Cloudy A (Clear) Urine pH 5.0 (5.0-8.0) pH Units Ur Specific [place] 1.021 (1.010-1.025) Urine Protein 100 H (Neg-Trace) mg/dL Urine Glucose (UA) Normal (Normal) mg/dL - ABG Interpretation ABG results: PT/INR, D-dimer PT 14.4 Seconds (9.4-12.1) H 06/25/19 01:10 - Impressions Impressions Chest X-Ray 06/24/19 14:25 IMPRESSION: No new acute cardiopulmonary findings. D/ / Jackie Culp MD / Jackie Culp MD Interpreting Provider: Jackie Culp MD Head CT 06/24/19 14:57 IMPRESSION: No acute intracranial abnormality. Stable appearing senescent changes. Remote right occipital stroke. D/ / Thomas Aguirre / Thomas Aguirre Interpreting Provider: Thomas Aguirre Head CTA 06/24/19 18:18 IMPRESSION: 1. Occluded right vertebral artery throughout most of its course. There is distal reconstitution above the skull base. 2. The left vertebral artery is patent however, at the origin there appears to be approximately 50% stenosis. 3. Approximately 50% stenosis at the origin of the left subclavian artery. 4. The basilar artery appears patent with only mild irregularity. 5. Patent bilateral carotid circulation with only mild disease. 6. The venous circulation demonstrates patent superior sagittal sinus as well as right transverse sinus draining into the right jugular vein however, the left transverse sinus appears to be at least partly thrombosed and the left jugular vein is not visualized. D/ / 06/24/2019 19:31:37 Michelle Hdz MD / louay Interpreting Provider: Michelle Hdz MD Neck CTA 06/24/19 18:18 IMPRESSION: 1. Occluded right vertebral artery throughout most of its course. There is distal reconstitution above the skull base. 2. The left vertebral artery is patent however, at the origin there appears to be approximately 50% stenosis. 3. Approximately 50% stenosis at the origin of the left subclavian artery. 4. The basilar artery appears patent with only mild irregularity. 5. Patent bilateral carotid circulation with only mild disease. 6. The venous circulation demonstrates patent superior sagittal sinus as well as right transverse sinus draining into the right jugular vein however, the left transverse sinus appears to be at least partly thrombosed and the left jugular vein is not visualized. D/ / 06/24/2019 19:31:37 Michelle Hdz MD / [email or web address] Interpreting Provider: Michelle Hdz MD Consult Discharge Plan - Plan Referrals: Peter Carlson MD [Primary Care Provider] - ___ (2) CAD (coronary artery disease) Qualifiers: Coronary Disease-Associated Artery/Lesion type: bypass graft [place] vs. transplanted heart: [place] heart Associated angina: with stable angina Qualified Code(s): I25.708 - Atherosclerosis of coronary artery bypass graft(s), unspecified, with other forms of angina pectoris (3) Diabetes Qualifiers: Diabetes mellitus type: type 2 Diabetes mellitus intermediate frame tender insulin use: with intermediate frame tender use Diabetes mellitus complication status: without complication Qualified Code(s): E11.9 - Type 2 diabetes mellitus without complications; Z79.4 - intermodal dispatcher (current) use of insulin (4) Atrial fibrillation Qualifiers: Atrial fibrillation type: paroxysmal Qualified Code(s): I48.0 - Paroxysmal atrial fibrillation (6) Hypertension Qualifiers: Hypertension type: essential hypertension Qualified Code(s): I10 - Essential (primary) hypertension (7) Hypothyroidism, unspecified Qualifiers: Hypothyroidism type: other Qualified Code(s): E03.8 - Other specified hypothyroidism (8) UTI (urinary tract infection) Qualifiers: Urinary tract infection type: acute cystitis Hematuria presence: without hematuria Qualified Code(s): N30.00 - Acute cystitis without hematuria (9) Vertebral artery stenosis Qualifiers: Laterality: bilateral Qualified Code(s): I65.03 - Occlusion and stenosis of bilateral vertebral arteries
[2019-06-25] MEDS: Metoprolol XL (24 HR) Succ 25 MG TAB.ER.24H PO SCH (10:00)
[2019-06-25] MEDS: Aspirin Enteric Coated 81 MG Tablet PO SCH (10:00)
[2019-06-25] MEDS: BuPROPion XL (24 HR) 150 MG TABLET PO SCH (10:01)
[2019-06-25] MEDS: Multivit/Ca/Min/Fe/FA 1 TAB TABLET PO SCH (10:01)
[2019-06-25] MEDS: amLODIPine 5 MG TABLET PO SCH (10:01)
[2019-06-25] MEDS: Insulin DETEMIR 100 UNIT/ML X5UNITS SQ SCH (10:02)
[2019-06-25] MEDS: Lisinopril 20 MG TABLET PO SCH ×2 (11:28→21:24)
--- NOTE | 2019-06-25 15:58 | Electrocardiograph Report ---
[place] [id number] Test Date: 2019-06-24 Pat Name: Jordi Salmeron Department: 104 Room: 3B43 Gender: M Heart Specialist: : [id number] Requested By: Haja Elliott Order Number: [id number] Reading MD: Bhavik Whitman Measurements Intervals [place] Rate: 75 P: -10 IA: 148 QRS: -23 QRSD: 107 T: -60 QT: 374 QTc: 403 Interpretive Statements Atrial fibrillation with controlled ventricular response nonspecific ST segment changes Electronically Signed On 06-25-2019 15:57:04 EDT by Bhavik Whitman
[2019-06-25] MEDS: *HR* OxyCODONE/APAP 10/325 TABLET PO PRN ×2 (16:09→21:40)
[2019-06-25] MEDS: levoFLOXacin 500 MG/100 ML 500 MG/100 ML BAG IVPB SCH (17:51)
[2019-06-25] MEDS ORDERED: *HR* Warfarin 5 MG TABLET PO ONE (18:00)
[2019-06-25] MEDS ORDERED: *HR* Warfarin 7.5 MG TABLET PO ONE (18:00)
--- NOTE | 2019-06-25 19:36 | Vascular/Endovasc Consult Note ---
Date of Encounter: 06/25/19 Time of Encounter: 18:50 Assessment and Plan (1) Occlusion of right vertebral artery Status: Chronic The pathophysiology and natural history of vertebral artery disease was discussed the patient and all questions were answered. The patient CT scan was reviewed. He has a right vertebral artery occlusion and a proximal left vertebral artery stenosis measuring approximately 50%. When compared with his CT scan from 01/13/2018, there is no significant change. On his previous CT scan the right vertebral artery was noted to be occluded and the left vertebral artery and approximately 50% stenosis. Given his chronic findings without any recent changes, the left vertebral artery stenosis does not appear to be related to his symptoms. At this time, there is no indication for further evaluation or intervention. The patient should maintain his anticoagulation and daily aspirin. Continued surveillance is recommended. He will continue to follow-up in vascular clinic as previously scheduled. If the patient felt progressive vertebral artery stenosis he would likely require consultation with interventional neuroradiology. (2) Stenosis of left vertebral artery Status: Chronic (3) Diabetes mellitus Status: Chronic He was counseled regarding atherosclerotic risk factor reduction. Qualifiers: Diabetes mellitus type: type 2 Diabetes mellitus retirement insulin use: without retirement use Diabetes mellitus complication status: with circulatory complication Diabetes mellitus complication detail: with other circulatory complications Qualified Code(s): E11.59 - Type 2 diabetes mellitus with other circulatory complications (4) CAD (coronary artery disease) Status: Chronic Qualifiers: Coronary Disease-Associated Artery/Lesion type: bypass graft [place] vs. transplanted heart: [place] heart Associated angina: with stable angina Qualified Code(s): I25.708 - Atherosclerosis of coronary artery bypass graft(s), unspecified, with other forms of angina pectoris - History of Present Illness Consult date: 06/25/19 Requesting physician: Deonte Cevallos Consult reason: Vertebral artery occlusion Chief complaint: Vertebral artery occlusion History of present illness: Mr. Salmeron is a 79 year old male with a history of peripheral vascular disease, abdominal aortic aneurysm, peripheral artery aneurysms, carotid stenosis, hypertension, hyperlipidemia and coronary artery disease. Patient also has a history of nasopharyngeal cancer and has undergone a prior tracheostomy. His chronic a fibrillation is adequately with Coumadin. He also has diabetes. The patient presented to the emergency room with complaints of dizziness and lightheadedness. He denies any syncope but due to his persistent and progressive symptoms particularly when changing from a seated to standing position, he came to the emergency room for further evaluation. As part of his evaluation he underwent a CT angiogram of the neck which revealed significant vertebral artery disease. Vascular surgery was counseled for further evaluation. The time of evaluation the patient was alert and comfortable he denies any abdominal, flank or back pain. He denies any symptoms of CVA, TIA or amaurosis fugax. He currently denies headaches, dizziness or visual disturbances. He denies any chest pain or shortness of breath. Past Med Surg Social Fam HX - Past Medical History Medical history: atrial fibrillation, cancer, coronary artery disease, CVA, diabetes, hypertension, myocardial infarction, peripheral artery disease, SVT, thyroid disease Additional medical history: nose cancer Psychiatric history: no psych history - Past Surgical History Surgical History: cancer surgery Additional surgical history: BACK SURGERY, tracheostomy, Skin CA - Social History Smoking Status: Former smoker Smokeless Tobacco Status: No Alcohol use: none Drug use: none - Family History Mother Living Status: Hx Family Cardiac Disorders: No Hx Family Respiratory Disorders: No Hx Family Cancer: Yes (Lung CA) Hx Family GI Disorders: No Hx Family Endocrine Disorder: No Hx Family Neuromuscular Disorders: No Hx Family Neurologic Disorders: No Hx Family HEENT Disorders: No Hx Family Autoimmune Disorders: No Father Living Status: Hx Family Cardiac Disorders: No Hx Family Respiratory Disorders: No Hx Family Cancer: Yes (Lung Ca) Hx Family GI Disorders: No Hx Family Endocrine Disorder: No Hx Family Neuromuscular Disorders: No Hx Family Neurologic Disorders: No Hx Family HEENT Disorders: No Hx Family Autoimmune Disorders: No Sister Living Status: Hx Family Cancer: Yes (lung cancer) Medications and Allergies Aspirin Enteric Coated [Aspirin EC] 81 mg PO DAILY 08/17/17 [History] Nitroglycerin 0.4 mg SL Q5MIN PRN #14 tab.subl 08/22/17 [Rx] BuPROPion XL (24 HR) [Wellbutrin Xl] 150 mg PO QAM 12/16/17 [History] Ezetimibe [Zetia] 10 mg PO DAILY 12/16/17 [History] Sertraline [Zoloft] 100 mg PO DAILY 12/16/17 [History] Topiramate [Topamax] 50 mg PO HS 12/16/17 [History] Omeprazole [PriLOSEC] 20 mg PO DAILY 03/28/18 [History] Tamsulosin HCl [Flomax] 0.4 mg PO DAILY 03/28/18 [History] Gabapentin [Neurontin] 300 mg PO HS 09/04/18 [History] Warfarin [Coumadin] 5 mg PO SUTUTHSA 09/04/18 [History] Warfarin [Coumadin] 7.5 mg PO MOWEFR 09/04/18 [History] Albuterol Sulfate [Proventil Inhaler] 2 puff IH Q4H PRN #1 inhaler 01/30/19 [Rx] Metformin HCl [Fortamet] 1,000 mg PO 1800 02/20/19 [History] traZODone [TraZODone] 50 mg PO HS 02/20/19 [History] Amitriptyline [Elavil] 25 mg PO HS 05/02/19 [History] Cyclobenzaprine HCl 5 mg PO HS PRN 05/02/19 [History] Docusate [Colace] 100 mg PO BID PRN 05/02/19 [History] Insulin Glargine,Hum.rec.anlog [Lantus Solostar] 20 unit SQ QAM 05/02/19 [History] Levothyroxine [Synthroid] 200 mcg PO 0630 05/02/19 [History] Multivitamin [Daily Multiple Vitamin] 1 tab PO DAILY 05/02/19 [History] Promethazine [Phenergan] 25 mg PO Q6H PRN 05/02/19 [History] Butalb/Acetaminophen/Caffeine [Fioricet 50-300-40 mg Capsule] 1 cap PO DAILY PRN 05/20/19 [History] OxyCODONE/APAP 10/325 [Percocet 10/325 MG] 1 tab PO QID PRN 2 Days #8 tablet 05/21/19 [Rx] predniSONE [Prednisone] 50 mg PO DAILY #5 tablet 06/21/19 [Rx] Cephalexin [Keflex] 500 mg PO BID 4 Days #8 capsule 06/28/19 [Rx] Metoprolol XL (24 HR) Succ [Toprol Xl] 12.5 mg PO DAILY #30 tab.er.24h 06/28/19 [Rx] Rosuvastatin [Crestor] 40 mg PO HS #30 tablet 06/28/19 [Rx] Allergy/AdvReac Type Severity Reaction Status Date / Time No Known Allergies Allergy Verified 05/20/19 17:52 All Systems Review: The remainder of the systems were reviewed and are negative - Constitutional Constitutional: no chills, no fever(s) - Cardiovascular Cardiovascular: no chest pain at rest, no dyspnea at rest Exam Vital Signs, Last 4 Hours Temp Pulse Resp BP Pulse Ox 06/25/19 19:15 97.7 F 52 16 161/84 93 General: Present: Conversant, No Apparent Distress HEENT: Present: Atraumatic, Normocephaly Neck: Absent: JVD, Lymphadenopathy, Left Carotid bruit, Right Carotid bruit Cardiac: Present: Normal S1 and S2, Irregular Rhythm Lungs: Present: Normal Breath Sounds Neuro: Present: Alert and responsive, Motor nerves grossly intact, Sensory nerves grossly intact Abdomen: Present: Soft, Non-tender Vascular: Present: Normal capillary refill, Pulse, absent (Pedal pulses absent). Absent: Cyanosis, Edema Skin: Present: No rashes noted on visualized skin. Absent: Wound/ulcer(s) Musculoskeletal: Present: No Chest Wall Tenderness Consult Discharge Plan - Plan Instructions: Cephalexin (By mouth), Metoprolol (By mouth), Rosuvastatin (By mouth), Urinary Tract Infection in Men (DC), Fall Prevention (DC) Referrals: Peter Carlsno MD [Primary Care Provider] - 07/02/19 1:15 pm Prescriptions: Rosuvastatin [Crestor] 40 mg PO HS #30 tablet Prescription Printed Cephalexin [Keflex] 500 mg PO BID 4 Days #8 capsule Prescription Printed Metoprolol XL (24 HR) Succ [Toprol Xl] 12.5 mg PO DAILY #30 tab.er.24h Prescription Printed
[2019-06-25] MEDS: Topiramate 25 MG TABLET PO SCH (21:23)
[2019-06-25] MEDS: traZODone 50 MG TABLET PO SCH (21:23)
[2019-06-25] MEDS: Gabapentin 300 MG CAPSULE PO SCH (21:24)
[2019-06-26 02:44] LABS: Basophils % 0.5 %; Eosinophils # 0.3 K/mcL (0.0-0.6); Eosinophils % 5.4 %; Hematocrit 38.6 % (37.5-50.1); Immature Granulocytes % 0.9 % (0-4); Lymphocytes # 1.6 K/mcL (0.6-4.6); Lymphocytes % 27.2 %; Mean Corpuscular HGB Conc 31.1 g/dL (31.6-35.5); Mean Corpuscular Volume 93.2 fL (83.0-100.0); Monocytes # 0.7 K/mcL (0.0-1.3); Monocytes % 11.9 %; Neutrophils # 3.1 K/mcL (1.6-8.9); Platelet Count 133 K/mcL (140-400); Red Blood Count 4.14 M/mcL (4.19-5.50); Red Cell Distribution Width 14.3 % (11.5-14.5); Segmented Neutrophils % 54.1 %; White Blood Count 5.7 K/mcL (4.3-11.1)
[2019-06-26 03:00] LABS: INR 1.5; Prothrombin Time 16.9 Seconds (9.4-12.1)
[2019-06-26 03:07] LABS: BUN/Creatinine Ratio 26 (6-26); Blood Urea Nitrogen 34 mg/dL (8-23); Calcium 8.8 mg/dL (8.6-10.3); Carbon Dioxide 28 mEq/L (23-29); Chloride 104 mEq/L (98-107); Glucose 139 mg/dL (70-105); Osmolality,Calculated 294 (280-300); Potassium 4.7 mEq/L (3.5-5.1); Sodium 137 mEq/L (136-145); eGFR For African Americans > 60 (> 60); eGFR For Non-African Americans 53 (> 60)
[2019-06-26 03:13] LABS: Thyroid Stimulating Hormone 16.257 mcIU/mL (0.340-5.600)
[2019-06-26] MEDS: *HR* OxyCODONE/APAP 10/325 TABLET PO PRN ×2 (05:27→17:07)
[2019-06-26] MEDS: Insulin LISPRO 300 UNITS/3 ML VIAL SQ SCH ×4 (08:15→21:47)
[2019-06-26] MEDS: Multivit/Ca/Min/Fe/FA 1 TAB TABLET PO SCH (08:34)
[2019-06-26] MEDS: Lisinopril 20 MG TABLET PO SCH (08:34)
[2019-06-26] MEDS: Aspirin Enteric Coated 81 MG Tablet PO SCH (08:34)
[2019-06-26] MEDS: Metoprolol XL (24 HR) Succ 25 MG TAB.ER.24H PO SCH (08:34)
[2019-06-26] MEDS: Insulin DETEMIR 100 UNIT/ML X5UNITS SQ SCH (08:34)
[2019-06-26] MEDS: amLODIPine 5 MG TABLET PO SCH (08:34)
[2019-06-26] MEDS: BuPROPion XL (24 HR) 150 MG TABLET PO SCH (08:34)
[2019-06-26] MEDS ORDERED: 0.9 % Sodium Chloride 500 ML IVC SCH (08:45)
--- NOTE | 2019-06-26 09:58 | Internal Med Progress Note ---
Hospitalist Progress Note - Encounter Date of Encounter: 06/26/19 Time of Encounter: 09:58 - Subjective Interval History: Patient was seen and examined at bedside-he has been participating with physical therapy however states he continues to feel weak and a little lightheaded. Patient was concerned about occlusion of vertebral artery. We did discuss plan outlined by Dr. Gabriel who verbalizes understanding. We will give IVF. - Exam Vitals: Temp Pulse Resp BP Pulse Ox 97.4 F L 48 15 102/58 96 06/26/19 08:14 06/26/19 08:14 06/26/19 08:14 06/26/19 08:14 06/26/19 08:14 Exam: PHYSICAL EXAMINATION: GENERAL APPEARANCE: The patient is alert, oriented and in no acute distress. HEENT: Head is normocephalic. The sinuses are nontender. Pupils are equal and reactive. The nares are patent. Oropharynx clear without lesions. NECK: Carotid bruit appreciated on both sides. HEART: Regular rate and rhythm. LUNGS: No crackles or wheezes are heard. ABDOMEN: Soft, nontender, nondistended with good bowel sounds heard. Inguinal area is normal. EXTREMITIES: Without cyanosis, clubbing or edema. NEUROLOGICAL: Gross nonfocal. SKIN: Warm and dry without any rash. - Assessment and Plan (1) CAD (coronary artery disease) Current Visit: No Status: Chronic Assessment and Plan: Patient denies chest pain, troponin was negative. Continue home medication including aspirin.-Will hold lisinopril as well as metoprolol due to hypotension and bradycardia (2) Diabetes Current Visit: No Status: Chronic Assessment and Plan: Continue basal insulin at home dose in addition to insulin sliding scale. Depending A1c. Blood sugar well controlled currently. (3) DVT prophylaxis Current Visit: Yes Status: Acute Assessment and Plan: Patient on Coumadin. INR 1.3 this morning. Pharmacy to dose. (4) Atrial fibrillation Current Visit: No Status: Chronic Assessment and Plan: Rate controlled, continue Coumadin. INR 1.5 this morning. (5) Nasopharyngeal cancer Current Visit: No Status: Chronic Assessment and Plan: Stable, no respiratory distress. (6) Hypertension Current Visit: No Status: Chronic Assessment and Plan: BP slightly elevated, dose of lisinopril increased. Will continue monitoring blood pressure. Pending orthostatic vital signs. 06/26 Attention we will hold lisinopril for now as well as metoprolol Give IV fluids and monitor (7) Hypothyroidism, unspecified Current Visit: No Status: Chronic Assessment and Plan: Continue home medication. (8) UTI (urinary tract infection) Current Visit: No Status: Acute Assessment and Plan: Patient has chronic UTI from frequent self catheterization. Urine culture Klebsiella-sensitive to Levaquin which we will continue (9) Vertebral artery stenosis Current Visit: No Status: Chronic Assessment and Plan: Same as above. (10) Postural hypotension Current Visit: No Status: Acute Assessment and Plan: We will hold blood pressure medication for now and give IV fluids (11) H/O carotid artery stenosis Current Visit: No Status: Chronic Assessment and Plan: Same as above. (12) Lightheadedness Current Visit: Yes Status: Acute Assessment and Plan: 06/24 79-year-old gentleman with known history of bilateral carotid stenosis, right side vertebral artery stenosis, postural hypotension presented with several month history of progressively worsening lightheadedness/dizziness. Dizziness occurs when the patient change position from sitting/lying to standing. He reported absence of chest pain, palpitation, or shortness of breath. Physical exam, bilateral carotid bruits was appreciated. - Based on history, lightheadedness is likely caused by orthostatic hypotension. Patient denies dehydration. His home medication was carefully reviewed, Flomax could cause orthostatic hypertension, but patient has been on this medications for years. Lab does not support dehydration. - We will check orthostatic vital signs. We will continue cycling troponin, telemetry monitoring, EKG as needed. - He recently had echocardiogram in April, no reported severe valvular disease, no indication to repeat. He also had a stress test in April which was normal. - We will repeat CTA of head and neck to further characterize vascular stenosis. - Fall precaution. 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 Vascular surgery was consulted. Lipid panel was repeated, LDL 173, HDL 77, patient already on 2 lipid lower agent including high strands of statins and Zetia. We will consult cardiology to help us manage the lipid issues.. Patient blood pressure is not optimally controlled, dose of lisinopril was increased, will continue monitoring BP, adjust medications to achieve target BP <120/80. Fall precaution. 06/26 Early hypertensive and we will hold blood pressure medications given IV fluids patient is becoming lightheaded with position changes as well as he is br adycardic we will monitor closely Vascular surgery was consulted-no indication for further evaluation or intervention advising to continue anticoagulation and daily aspirin Continue with fall precautions consult cardiology concerning lipid issues - Time Spent with Patient Total time spent is greater than 50% in coordination of care (as documented) at patient's floor/unit and/or counseling patient: Internal Medicine: Result - Labs CBC & Chem 7: 06/26/19 02:19 06/26/19 02:19 Labs: Short CBC 06/26/19 Range/Units 02:19 WBC 5.7 (4.3-11.1) K/mcL Hgb 12.0 L (12.9-16.9) g/dL Hct 38.6 (37.5-50.1) % Plt Count 133 L (140-400) K/mcL Neutrophils # 3.1 (1.6-8.9) K/mcL BMP 06/26/19 02:19 Sodium 137 Potassium 4.7 Chloride 104 Carbon Dioxide 28 BUN 34 H Creatinine 1.32 H Glucose 139 H Calcium 8.8 Cardiac Enzymes 06/25/19 Range/Units 09:50 Troponin I < 0.03 (< 0.04) ng/mL - ABG Interpretation ABG results: PT/INR, D-dimer PT 16.9 Seconds (9.4-12.1) H 06/26/19 02:19 Consult Discharge Plan - Plan Referrals: Peter Carlson MD [Primary Care Provider] - 07/02/19 1:15 pm _ (1) CAD (coronary artery disease) Qualifiers: Coronary Disease-Associated Artery/Lesion type: bypass graft [place] vs. 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 insulin use: with watermelon harvesting supervisor use Diabetes mellitus complication status: without complication Qualified Code(s): E11.9 - Type 2 diabetes mellitus without complications; Z79.4 - retirement (current) use of insulin (4) Atrial fibrillation Qualifiers: Atrial fibrillation type: paroxysmal Qualified Code(s): I48.0 - Paroxysmal atrial fibrillation (6) Hypertension Qualifiers: Hypertension type: essential hypertension Qualified Code(s): I10 - Essential (primary) hypertension (7) Hypothyroidism, unspecified Qualifiers: Hypothyroidism type: other Qualified Code(s): E03.8 - Other specified hypothyroidism (8) UTI (urinary tract infection) Qualifiers: Urinary tract infection type: acute cystitis Hematuria presence: without hematuria Qualified Code(s): N30.00 - Acute cystitis without hematuria (9) Vertebral artery stenosis Qualifiers: Laterality: bilateral Qualified Code(s): I65.03 - Occlusion and stenosis of bilateral vertebral arteries
[2019-06-26] MEDS ORDERED: 0.9 % Sodium Chloride 1,000 ML ONE (17:12)
[2019-06-26] MEDS: levoFLOXacin 500 MG/100 ML 500 MG/100 ML BAG IVPB SCH (17:35)
[2019-06-26] MEDS ORDERED: *HR* Warfarin 7.5 MG TABLET PO ONE (18:00)
[2019-06-26] MEDS: Topiramate 25 MG TABLET PO SCH (21:47)
[2019-06-26] MEDS: traZODone 50 MG TABLET PO SCH (21:47)
[2019-06-26] MEDS: Gabapentin 300 MG CAPSULE PO SCH (21:47)
[2019-06-27 05:08] LABS: Basophils % 0.4 %; Eosinophils # 0.3 K/mcL (0.0-0.6); Eosinophils % 6.4 %; Hematocrit 34.5 % (37.5-50.1); Hemoglobin 10.8 g/dL (12.9-16.9); Immature Granulocytes % 0.6 % (0-4); Lymphocytes % 18.9 %; Mean Corpuscular HGB Conc 31.3 g/dL (31.6-35.5); Mean Corpuscular Hemoglobin 29.7 pg (28.0-33.3); Mean Corpuscular Volume 94.8 fL (83.0-100.0); Mean Platelet Volume 10.7 fL (9.4-12.4); Monocytes # 0.5 K/mcL (0.0-1.3); Monocytes % 10.5 %; Neutrophils # 3.2 K/mcL (1.6-8.9); Platelet Count 126 K/mcL (140-400); Red Blood Count 3.64 M/mcL (4.19-5.50); Red Cell Distribution Width 14.3 % (11.5-14.5); Segmented Neutrophils % 63.2 %; White Blood Count 5.1 K/mcL (4.3-11.1)
[2019-06-27 05:13] LABS: INR 1.7; Prothrombin Time 19.2 Seconds (9.4-12.1)
[2019-06-27 06:33] LABS: BUN/Creatinine Ratio 28 (6-26); Blood Urea Nitrogen 39 mg/dL (8-23); Calcium 8.4 mg/dL (8.6-10.3); Carbon Dioxide 27 mEq/L (23-29); Chloride 103 mEq/L (98-107); Glucose 122 mg/dL (70-105); Osmolality,Calculated 289 (280-300); Potassium 4.8 mEq/L (3.5-5.1); Sodium 134 mEq/L (136-145); eGFR For African Americans > 60 (> 60); eGFR For Non-African Americans 50 (> 60)
[2019-06-27] MEDS: Insulin LISPRO 300 UNITS/3 ML VIAL SQ SCH ×4 (08:54→20:55)
[2019-06-27] MEDS: Aspirin Enteric Coated 81 MG Tablet PO SCH (09:27)
[2019-06-27] MEDS: Multivit/Ca/Min/Fe/FA 1 TAB TABLET PO SCH (09:27)
[2019-06-27] MEDS: BuPROPion XL (24 HR) 150 MG TABLET PO SCH (09:27)
[2019-06-27] MEDS: amLODIPine 5 MG TABLET PO SCH (09:27)
[2019-06-27] MEDS: Insulin DETEMIR 100 UNIT/ML X5UNITS SQ SCH (09:37)
[2019-06-27] MEDS ORDERED: 0.9 % Sodium Chloride 1,000 ML IVC SCH (13:45)
--- NOTE | 2019-06-27 16:39 | Internal Med Progress Note ---
Hospitalist Progress Note - Encounter Date of Encounter: 06/27/19 Time of Encounter: 16:36 - Subjective Interval History: Patient was seen at bedside continues to say he is a little wobbly care attendant did speak with the patient and his who are discussing possible rehabilitation we will initiate paperwork in the a.m. if they come to a decision - Exam Vitals: Temp Pulse Resp BP Pulse Ox 98.4 F 93 17 113/64 95 06/27/19 11:27 06/27/19 11:27 06/27/19 11:27 06/27/19 11:27 06/27/19 11:27 Exam: PHYSICAL EXAMINATION: GENERAL APPEARANCE: The patient is alert, oriented and in no acute distress. HEENT: Head is normocephalic. The sinuses are nontender. Pupils are equal and reactive. The nares are patent. Oropharynx clear without lesions. NECK: Carotid bruit appreciated on both sides. HEART: Regular rate and rhythm. LUNGS: No crackles or wheezes are heard. ABDOMEN: Soft, nontender, nondistended with good bowel sounds heard. Inguinal area is normal. EXTREMITIES: Without cyanosis, clubbing or edema. NEUROLOGICAL: Gross nonfocal. SKIN: Warm and dry without any rash. - Assessment and Plan (1) CAD (coronary artery disease) Current Visit: No Status: Chronic Assessment and Plan: Patient denies chest pain, troponin was negative. Continue home medication including aspirin.-Will hold lisinopril as well as metoprolol due to hypotension and bradycardia (2) Diabetes Current Visit: No Status: Chronic Assessment and Plan: Continue basal insulin at home dose in addition to insulin sliding scale. Depending A1c. Blood sugar well controlled currently. (3) DVT prophylaxis Current Visit: Yes Status: Acute Assessment and Plan: Patient on Coumadin. INR 1.3 this morning. Pharmacy to dose. (4) Atrial fibrillation Current Visit: No Status: Chronic Assessment and Plan: Rate controlled, continue Coumadin. INR 1.7 this morning. (5) Nasopharyngeal cancer Current Visit: No Status: Chronic Assessment and Plan: Stable, no respiratory distress. (6) Hypertension Current Visit: No Status: Chronic Assessment and Plan: BP slightly elevated, dose of lisinopril increased. Will continue monitoring blood pressure. Pending orthostatic vital signs. 06/26 Attention we will hold lisinopril for now as well as metoprolol Give IV fluids and monitor 9/12 We will stop lisinopril plus Norvasc and resume low-dose metoprolol-would like to maintain systolic blood pressure around 140 (7) Hypothyroidism, unspecified Current Visit: No Status: Chronic Assessment and Plan: Continue home medication. (8) UTI (urinary tract infection) Current Visit: No Status: Acute Assessment and Plan: Patient has chronic UTI from frequent self catheterization. Urine culture Klebsiella-sensitive to Levaquin which we will continue (9) Vertebral artery stenosis Current Visit: No Status: Chronic Assessment and Plan: Same as above. (10) Postural hypotension Current Visit: No Status: Acute Assessment and Plan: We will hold blood pressure medication for now and give IV fluids 06/27 Pressure appears to be stabilizing we will resume low-dose metoprolol and give gentle IV fluids monitor closely (11) H/O carotid artery stenosis Current Visit: No Status: Chronic Assessment and Plan: Same as above. (12) Lightheadedness Current Visit: Yes Status: Acute Assessment and Plan: 06/24 79-year-old gentleman with known history of bilateral carotid stenosis, right side vertebral artery stenosis, postural hypotension presented with several month history of progressively worsening lightheadedness/dizziness. Dizziness occurs when the patient change position from sitting/lying to standing. He reported absence of chest pain, palpitation, or shortness of breath. Physical exam, bilateral carotid bruits was appreciated. - Based on history, lightheadedness is likely caused by orthostatic hypotension. Patient denies dehydration. His home medication was carefully reviewed, Flomax could cause orthostatic hypertension, but patient has been on this medications for years. Lab does not support dehydration. - We will check orthostatic vital signs. We will continue cycling troponin, telemetry monitoring, EKG as needed. - He recently had echocardiogram in April, no reported severe valvular disease, no indication to repeat. He also had a stress test in April which was normal. - We will repeat CTA of head and neck to further characterize vascular stenosis. - Fall precaution. 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 Vascular surgery was consulted. Lipid panel was repeated, LDL 173, HDL 77, patient already on 2 lipid lower agent including high strands of statins and Zetia. We will consult cardiology to help us manage the lipid issues.. Patient blood pressure is not optimally controlled, dose of lisinopril was in creased, will continue monitoring BP, adjust medications to achieve target BP <120/80. Fall precaution. 06/26 Early hypertensive and we will hold blood pressure medications given IV fluids patient is becoming lightheaded with position changes as well as he is bradycardic we will monitor closely Vascular surgery was consulted-no indication for further evaluation or intervention advising to continue anticoagulation and daily aspirin Continue with fall precautions consult cardiology concerning lipid issues 06/27 As above - Time Spent with Patient Total time spent is greater than 50% in coordination of care (as documented) at patient's floor/unit and/or counseling patient: Internal Medicine: Result - Labs CBC & Chem 7: 06/27/19 04:47 06/27/19 05:56 Labs: Short CBC 06/27/19 Range/Units 04:47 WBC 5.1 (4.3-11.1) K/mcL Hgb 10.8 L (12.9-16.9) g/dL Hct 34.5 L (37.5-50.1) % Plt Count 126 L (140-400) K/mcL Neutrophils # 3.2 (1.6-8.9) K/mcL BMP 06/27/19 05:56 Sodium 134 L Potassium 4.8 Chloride 103 Carbon Dioxide 27 BUN 39 H Creatinine 1.39 H Glucose 122 H Calcium 8.4 L - ABG Interpretation ABG results: PT/INR, D-dimer PT 19.2 Seconds (9.4-12.1) H 06/27/19 04:47 Consult Discharge Plan - Plan Referrals: Peter Carlson MD [Primary Care Provider] - 07/02/19 1:15 pm (1) CAD (coronary artery disease) Qualifiers: Coronary Disease-Associated Artery/Lesion type: bypass graft [place] vs. transplanted heart: [place] heart Associated angina: with stable angina Qualified Code(s): I25.708 - Atherosclerosis of coronary artery bypass graft(s), unspecified, with other forms of angina pectoris (2) Diabetes Qualifiers: Diabetes mellitus type: type 2 Diabetes mellitus rn long term care insulin use: with alf use Diabetes mellitus complication status: without complication Qualified Code(s): E11.9 - Type 2 diabetes mellitus without complications; Z79.4 - correction (current) use of insulin (4) Atrial fibrillation Qualifiers: Atrial fibrillation type: paroxysmal Qualified Code(s): I48.0 - Paroxysmal atrial fibrillation (6) Hypertension Qualifiers: Hypertension type: essential hypertension Qualified Code(s): I10 - Essential (primary) hypertension (7) Hypothyroidism, unspecified Qualifiers: Hypothyroidism type: other Qualified Code(s): E03.8 - Other specified hypothyroidism (8) UTI (urinary tract infection) Qualifiers: Urinary tract infection type: acute cystitis Hematuria presence: without hematuria Qualified Code(s): N30.00 - Acute cystitis without hematuria (9) Vertebral artery stenosis Qualifiers: Laterality: bilateral Qualified Code(s): I65.03 - Occlusion and stenosis of bilateral vertebral arteries
[2019-06-27] MEDS ORDERED: *HR* Warfarin 7.5 MG TABLET PO ONE (18:00)
[2019-06-27] MEDS ORDERED: Docusate Oral Soln 100 MG/10 ML UDC PO PRN (20:45)
[2019-06-27] MEDS: traZODone 50 MG TABLET PO SCH (20:49)
[2019-06-27] MEDS: Topiramate 25 MG TABLET PO SCH (20:49)
[2019-06-27] MEDS: Gabapentin 300 MG CAPSULE PO SCH (20:49)
[2019-06-28 05:24] LABS: Basophils % 0.1 %; Eosinophils # 0.4 K/mcL (0.0-0.6); Eosinophils % 5.4 %; Hemoglobin 11.8 g/dL (12.9-16.9); Immature Granulocytes % 0.7 % (0-4); Lymphocytes # 0.9 K/mcL (0.6-4.6); Mean Corpuscular HGB Conc 31.1 g/dL (31.6-35.5); Mean Corpuscular Hemoglobin 29.4 pg (28.0-33.3); Mean Corpuscular Volume 94.5 fL (83.0-100.0); Mean Platelet Volume 9.9 fL (9.4-12.4); Monocytes # 0.6 K/mcL (0.0-1.3); Monocytes % 8.7 %; Neutrophils # 4.8 K/mcL (1.6-8.9); Platelet Count 122 K/mcL (140-400); Red Blood Count 4.02 M/mcL (4.19-5.50); Red Cell Distribution Width 14.2 % (11.5-14.5); Segmented Neutrophils % 72.1 %; White Blood Count 6.7 K/mcL (4.3-11.1)
[2019-06-28 05:31] LABS: INR 1.7; Prothrombin Time 19.7 Seconds (9.4-12.1)
[2019-06-28 05:48] LABS: BUN/Creatinine Ratio 29 (6-26); Blood Urea Nitrogen 36 mg/dL (8-23); Calcium 8.6 mg/dL (8.6-10.3); Carbon Dioxide 25 mEq/L (23-29); Chloride 108 mEq/L (98-107); Chol/HDL Ratio 6.4 (0-4.9); Cholesterol 161 mg/dL (< 200); Glucose 84 mg/dL (70-105); HDL Cholesterol 25 mg/dL (40-59); LDL Cholesterol,Calculated 95 mg/dL (0-99); Osmolality,Calculated 294 (280-300); Potassium 4.6 mEq/L (3.5-5.1); Sodium 138 mEq/L (136-145); Triglycerides 204 mg/dL (< 150); eGFR For African Americans > 60 (> 60); eGFR For Non-African Americans 56 (> 60)
[2019-06-28] MEDS: BuPROPion XL (24 HR) 150 MG TABLET PO SCH (08:25)
[2019-06-28] MEDS: Aspirin Enteric Coated 81 MG Tablet PO SCH (08:25)
[2019-06-28] MEDS: Insulin LISPRO 300 UNITS/3 ML VIAL SQ SCH ×2 (08:26→12:41)
[2019-06-28] MEDS: Multivit/Ca/Min/Fe/FA 1 TAB TABLET PO SCH (08:26)
[2019-06-28] MEDS: Insulin DETEMIR 100 UNIT/ML X5UNITS SQ SCH (08:26)
[2019-06-28] MEDS ORDERED: Metoprolol XL (24 HR) Succ 25 MG TAB.ER.24H PO SCH (09:00)
--- NOTE | 2019-06-28 14:27 | Internal Med Progress Note ---
Hospitalist Progress Note - Encounter Date of Encounter: 06/28/19 Time of Encounter: 14:21 - Subjective Interval History: Patient was seen and examined at bedside patient continues to complain of being being unsteady while ambulating. Will discuss with patient and this afternoon concerning possible placement to [facility]CF for further rehabilitation once w renee arrives. - Exam Vitals: Temp Pulse Resp BP Pulse Ox 98.3 F 60 16 131/80 97 06/28/19 11:44 06/28/19 11:44 06/28/19 11:44 06/28/19 11:44 06/28/19 11:44 Exam: PHYSICAL EXAMINATION: GENERAL APPEARANCE: The patient is alert, oriented and in no acute distress. HEENT: Head is normocephalic. The sinuses are nontender. Pupils are equal and reactive. The nares are patent. Oropharynx clear without lesions. NECK: Carotid bruit appreciated on both sides. HEART: Regular rate and rhythm. LUNGS: No crackles or wheezes are heard. ABDOMEN: Soft, nontender, nondistended with good bowel sounds heard. Inguinal area is normal. EXTREMITIES: Without cyanosis, clubbing or edema. NEUROLOGICAL: Gross nonfocal. SKIN: Warm and dry without any rash. - Assessment and Plan (1) CAD (coronary artery disease) Current Visit: No Status: Chronic Assessment and Plan: Patient denies chest pain, troponin was negative. Continue home medication including aspirin.-Will hold lisinopril as well as metoprolol due to hypotension and bradycardia (2) Diabetes Current Visit: No Status: Chronic Assessment and Plan: Continue basal insulin at home dose in addition to insulin sliding scale. Depending A1c. Blood sugar well controlled currently. (3) DVT prophylaxis Current Visit: Yes Status: Acute Assessment and Plan: Patient on Coumadin. INR 1.3 this morning. Pharmacy to dose. (4) Atrial fibrillation Current Visit: No Status: Chronic Assessment and Plan: Rate controlled, continue Coumadin. INR 1.7 this morning. (5) Nasopharyngeal cancer Current Visit: No Status: Chronic Assessment and Plan: Stable, no respiratory distress. (6) Hypertension Current Visit: No Status: Chronic Assessment and Plan: BP slightly elevated, dose of lisinopril increased. Will continue monitoring blood pressure. Pending orthostatic vital signs. 06/26 Attention we will hold lisinopril for now as well as metoprolol Give IV fluids and monitor 06/27 We will stop lisinopril plus Norvasc and resume low-dose metoprolol-would like to maintain systolic blood pressure around 140 06/28 Stable At this time (7) Hypothyroidism, unspecified Current Visit: No Status: Chronic Assessment and Plan: Continue home medication. (8) UTI (urinary tract infection) Current Visit: No Status: Acute Assessment and Plan: Patient has chronic UTI from frequent self catheterization. Urine culture Klebsiella-sensitive to Levaquin which we will continue (9) Vertebral artery stenosis Current Visit: No Status: Chronic Assessment and Plan: Same as above. (10) Postural hypotension Current Visit: No Status: Acute Assessment and Plan: We will hold blood pressure medication for now and give IV fluids 06/27 Pressure appears to be stabilizing we will resume low-dose metoprolol and give gentle IV fluids monitor closely 06/28 Blood pressure much improved continue with current medications and monitor. Patient is considering going to rehabilitation (11) H/O carotid artery stenosis Current Visit: No Status: Chronic Assessment and Plan: Same as above. (12) Lightheadedness Current Visit: Yes Status: Acute Assessment and Plan: 06/24 79-year-old gentleman with known history of bilateral carotid stenosis, right side vertebral artery stenosis, postural hypotension presented with several month history of progressively worsening lightheadedness/dizziness. Dizziness occurs when the patient change position from sitting/lying to standing. He reported absence of chest pain, palpitation, or shortness of breath. Physical exam, bilateral carotid bruits was appreciated. - Based on history, lightheadedness is likely caused by orthostatic hypotension. Patient denies dehydration. His home medication was carefully reviewed, Flomax could cause orthostatic hypertension, but patient has been on this medications for years. Lab does not support dehydration. - We will check orthostatic vital signs. We will continue cycling troponin, telemetry monitoring, EKG as needed. - He recently had echocardiogram in April, no reported severe valvular disease, no indication to repeat. He also had a stress test in April which was normal. - We will repeat CTA of head and neck to further characterize vascular stenosis. - Fall precaution. 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 Vascular surgery was consulted. Lipid panel was repeated, LDL 173, HDL 77, patient already on 2 lipid lower agent including high strands of statins and Zetia. We will consult cardiology to help us manage the lipid issues.. Patient blood pressure is not optimally controlled, dose of lisinopril was increased, will continue monitoring BP, adjust medications to achieve target BP <120/80. Fall precaution. 06/26 Early hypertensive and we will hold blood pressure medications given IV fluids patient is becoming lightheaded with position changes as well as he is bradycardic we will monitor closely Vascular surgery was consulted-no indication for further evaluation or intervention advising to continue anticoagulation and daily aspirin Continue with fall precautions consult cardiology concerning lipid issues 06/27 As above 06/28 Patient is considering possible rehabilitation - Time Spent with Patient Total time spent is greater than 50% in coordination of care (as documented) at patient's floor/unit and/or counseling patient: Internal Medicine: Result - Labs CBC & Chem 7: 06/28/19 05:10 06/28/19 05:10 Labs: Short CBC 06/28/19 Range/Units 05:10 WBC 6.7 (4.3-11.1) K/mcL Hgb 11.8 L (12.9-16.9) g/dL Hct 38.0 (37.5-50.1) % Plt Count 122 L (140-400) K/mcL Neutrophils # 4.8 (1.6-8.9) K/mcL BMP 06/28/19 05:10 Sodium 138 Potassium 4.6 Chloride 108 H Carbon Dioxide 25 BUN 36 H Creatinine 1.25 Glucose 84 Calcium 8.6 - ABG Interpretation ABG results: PT/INR, D-dimer PT 19.7 Seconds (9.4-12.1) H 06/28/19 05:10 Consult Discharge Plan - Plan Referrals: Peter Carlson MD [Primary Care Provider] - 07/02/19 1:15 pm (1) CAD (coronary artery disease) Qualifiers: Coronary Disease-Associated Artery/Lesion type: bypass graft [place] vs. transplanted heart: [place] heart Associated angina: with stable angina Qualified Code(s): I25.708 - Atherosclerosis of coronary artery bypass graft(s), unspecified, with other forms of angina pectoris (2) Diabetes Qualifiers: Diabetes mellitus type: type 2 Diabetes mellitus intermission coordinator insulin use: with penitentiary use Diabetes mellitus complication status: without complication Qualified Code(s): E11.9 - Type 2 diabetes mellitus without complications; Z79.4 - termite inspector (current) use of insulin (4) Atrial fibrillation Qualifiers: Atrial fibrillation type: paroxysmal Qualified Code(s): I48.0 - Paroxysmal atrial fibrillation (6) Hypertension Qualifiers: Hypertension type: essential hypertension Qualified Code(s): I10 - Essential (primary) hypertension (7) Hypothyroidism, unspecified Qualifiers: Hypothyroidism type: other Qualified Code(s): E03.8 - Other specified hypothyroidism (8) UTI (urinary tract infection) Qualifiers: Urinary tract infection type: acute cystitis Hematuria presence: without hematuria Qualified Code(s): N30.00 - Acute cystitis without hematuria (9) Vertebral artery stenosis Qualifiers: Laterality: bilateral Qualified Code(s): I65.03 - Occlusion and stenosis of bilateral vertebral arteries
[2019-06-28] MEDS: *HR* OxyCODONE/APAP 10/325 TABLET PO PRN (15:16)
[2019-06-28 15:19] VITALS: BP 134/63
--- NOTE | 2019-06-28 16:39 | Discharge Summary ---
- NOTES TO OUTPATIENT PROVIDER Notes to Outpatient Provider: Toprol and Norvasc have been stopped resume low dose metoprolol 12.5 mg twice a day. keflex BID x 4 days for UTI. Monitor lipids placed on crestor may need to add fish oil. Monitor renal function. Follow up with Vascular surgeon Date of Encounter: 06/28/19 Time of Encounter: 16:29 - Discharge Diagnosis (1) CAD (coronary artery disease) Priority: Secondary Status: Chronic Qualifiers: Coronary Disease-Associated Artery/Lesion type: bypass graft [place] vs. transplanted heart: [place] heart Associated angina: with stable angina Qualified Code(s): I25.708 - Atherosclerosis of coronary artery bypass graft(s), unspecified, with other forms of angina pectoris (2) Diabetes Priority: Secondary Status: Chronic Qualifiers: Diabetes mellitus type: type 2 Diabetes mellitus terminologist insulin use: with terminologist use Diabetes mellitus complication status: without complication Qualified Code(s): E11.9 - Type 2 diabetes mellitus without complications; Z79.4 - terminal manager (current) use of insulin (3) Atrial fibrillation Priority: Secondary Status: Chronic Qualifiers: Atrial fibrillation type: paroxysmal Qualified Code(s): I48.0 - Paroxysmal atrial fibrillation (4) Nasopharyngeal cancer Priority: Secondary Status: Chronic (5) Hypertension Priority: Secondary Status: Chronic Qualifiers: Hypertension type: essential hypertension Qualified Code(s): I10 - Essential (primary) hypertension (6) Hypothyroidism, unspecified Priority: Secondary Status: Chronic Qualifiers: Hypothyroidism type: other Qualified Code(s): E03.8 - Other specified hypothyroidism (7) UTI (urinary tract infection) Priority: Secondary Status: Acute Qualifiers: Urinary tract infection type: acute cystitis Hematuria presence: without hematuria Qualified Code(s): N30.00 - Acute cystitis without hematuria (8) Vertebral artery stenosis Priority: Secondary Status: Chronic Qualifiers: Laterality: bilateral Qualified Code(s): I65.03 - Occlusion and stenosis of bilateral vertebral arteries (9) Postural hypotension Priority: Primary Status: Acute (10) H/O carotid artery stenosis Priority: Secondary Status: Chronic (11) Lightheadedness Priority: Primary Status: Acute Hospital course: Mr. Salmeron is a 79 year old male past medical history of nasopharyngeal cancer status post tracheostomy chronic atrial fibrillation on Coumadin CAD diabetes peripheral vascular disease including bilateral coronary stenosis and severe right-sided vertebral artery stenosis neurogenic bladder secondary to back jelena khadijah hypertension hyperlipidemia presented after several months of dizziness/lightheadedness and frequent falls. He had progressively worsened over the past week prior to presentation. Prior to presentation there was suspicion for acute bronchitis and the patient was placed on oral antibiotics and steroids however he did not improve and presented back to the emergency department. He does have a history of carotid stenosis with recent carotid Doppler in April showing 50-79% stenosis on bilateral ICA. A CTA of head/neck and 04/2018 also showed severe stenosis of right vertebral artery. Patient does straight catheter himself due to neurogenic bladder. He was found to have a UTI urine culture did show Klebsiella patient was placed on Levaquin and has been transitioned to oral Keflex. Neck and head CTA was completed which did reveal occluded right vertebral artery throughout most of its course. There is distal reconstitution above the skull base. Left vertebral arteries patent at the origin there appears to be approximately 50% stenosis and approximately 50% stenosis at the origin of the left subclavian artery. Patent bilateral carotid circulation with only mild disease vascular surgery was consulted-vascular surgery reviewed CT scans-with no significant changes. No indication for further evaluation or intervention recommending to continue with anticoagulation and daily aspirin. During the stay patient's blood pressure medication was held and patient was given IV fluids-we did resume metoprolol at a lower dose-we also had PT and OT evaluate the patient recommending inpatient rehabilitation. Patient has been refusing any inpatient or outpatient physical therapy. I had a long conversation with the patient as well as and family recommending rehabilitation since patient does have high risk of fall and repeated admissions. Patient is adamant that he does not want to get rehabilitation Dr Maher also spoke with family-again patient declined rehabilitation. A she verbalizes understanding of risks including significant injury, hemorrhage and possible . I also discussed with patient the fact that he is on anticoagulation he understands the risks of possible head bleed or other traumatic bleeding from falls and would like to continue with current anticoagulation. Currently patient is hemodynamically stable he requires assistance ambulating to the bathroom and does feel wobbly- does except responsibility of providing care. Discussed case with resident care supervisor Tiffany Huggins-[facility] Prote[facility] Services will be notified-on dt offices closed at this time . - Time Spent with Patient Total time spent providing and/or coordinating discharge services: - Discharge Medications Prescriptions: New Rosuvastatin [Crestor] 40 mg PO HS #30 tablet Metoprolol XL (24 HR) Succ [Toprol Xl] 12.5 mg PO DAILY #30 tab.er.24h Cephalexin [Keflex] 500 mg PO BID 4 Days #8 capsule Continued Aspirin Enteric Coated [Aspirin EC] 81 mg PO DAILY Nitroglycerin 0.4 mg SL Q5MIN PRN #14 tab.subl PRN Reason: Chest Pain Sertraline [Zoloft] 100 mg PO DAILY BuPROPion XL (24 HR) [Wellbutrin Xl] 150 mg PO QAM Topiramate [Topamax] 50 mg PO HS Omeprazole [PriLOSEC] 20 mg PO DAILY Tamsulosin HCl [Flomax] 0.4 mg PO DAILY Gabapentin [Neurontin] 300 mg PO HS Warfarin [Coumadin] 5 mg PO SUTUTHSA Warfarin [Coumadin] 7.5 mg PO MOWEFR Albuterol Sulfate [Proventil Inhaler] 2 puff IH Q4H PRN #1 inhaler PRN Reason: Shortness Of Breath Metformin HCl [Fortamet] 1,000 mg PO 1800 traZODone [TraZODone] 50 mg PO HS Insulin Glargine,Hum.rec.anlog [Lantus Solostar] 20 unit SQ QAM Levothyroxine [Synthroid] 200 mcg PO 0630 Amitriptyline [Elavil] 25 mg PO HS Docusate [Colace] 100 mg PO BID PRN PRN Reason: Constipation Multivitamin [Daily Multiple Vitamin] 1 tab PO DAILY Promethazine [Phenergan] 25 mg PO Q6H PRN PRN Reason: Nausea OxyCODONE/APAP 10/325 [Percocet 10/325 MG] 1 tab PO QID PRN 2 Days #8 tablet PRN Reason: Pain Discontinued Atorvastatin Calcium [Lipitor] 80 mg PO DAILY Lisinopril [Zestril] 10 mg PO BID amLODIPine [Norvasc] 5 mg PO DAILY tablet Metoprolol Succinate [Toprol Xl] 25 mg PO DAILY 30 Days #30 tab.er.24h Doxycycline 100 mg PO BID #10 capsule No Action Ezetimibe [Zetia] 10 mg PO DAILY Cyclobenzaprine HCl 5 mg PO HS PRN PRN Reason: Muscle Spasm Butalb/Acetaminophen/Caffeine [Fioricet 50-300-40 mg Capsule] 1 cap PO DAILY PRN PRN Reason: Migraine Headache predniSONE [Prednisone] 50 mg PO DAILY #5 tablet Home Medications: Aspirin Enteric Coated [Aspirin EC] 81 mg PO DAILY 08/17/17 [History] Nitroglycerin 0.4 mg SL Q5MIN PRN #14 tab.subl 08/22/17 [Rx] BuPROPion XL (24 HR) [Wellbutrin Xl] 150 mg PO QAM 12/16/17 [History] Ezetimibe [Zetia] 10 mg PO DAILY 12/16/17 [History] Sertraline [Zoloft] 100 mg PO DAILY 12/16/17 [History] Topiramate [Topamax] 50 mg PO HS 12/16/17 [History] Omeprazole [PriLOSEC] 20 mg PO DAILY 03/28/18 [History] Tamsulosin HCl [Flomax] 0.4 mg PO DAILY 03/28/18 [History] Gabapentin [Neurontin] 300 mg PO HS 09/04/18 [History] Warfarin [Coumadin] 5 mg PO SUTUTHSA 09/04/18 [History] Warfarin [Coumadin] 7.5 mg PO MOWEFR 09/04/18 [History] Albuterol Sulfate [Proventil Inhaler] 2 puff IH Q4H PRN #1 inhaler 01/30/19 [Rx] Metformin HCl [Fortamet] 1,000 mg PO 1800 02/20/19 [History] traZODone [TraZODone] 50 mg PO HS 02/20/19 [History] Amitriptyline [Elavil] 25 mg PO HS 05/02/19 [History] Cyclobenzaprine HCl 5 mg PO HS PRN 05/02/19 [History] Docusate [Colace] 100 mg PO BID PRN 05/02/19 [History] Insulin Glargine,Hum.rec.anlog [Lantus Solostar] 20 unit SQ QAM 05/02/19 [History] Levothyroxine [Synthroid] 200 mcg PO 0630 05/02/19 [History] Multivitamin [Daily Multiple Vitamin] 1 tab PO DAILY 05/02/19 [History] Promethazine [Phenergan] 25 mg PO Q6H PRN 05/02/19 [History] Butalb/Acetaminophen/Caffeine [Fioricet 50-300-40 mg Capsule] 1 cap PO DAILY PRN 05/20/19 [History] OxyCODONE/APAP 10/325 [Percocet 10/325 MG] 1 tab PO QID PRN 2 Days #8 tablet 05/21/19 [Rx] predniSONE [Prednisone] 50 mg PO DAILY #5 tablet 06/21/19 [Rx] Cephalexin [Keflex] 500 mg PO BID 4 Days #8 capsule 06/28/19 [Rx] Metoprolol XL (24 HR) Succ [Toprol Xl] 12.5 mg PO DAILY #30 tab.er.24h 06/28/19 [Rx] Rosuvastatin [Crestor] 40 mg PO HS #30 tablet 06/28/19 [Rx] Allergies/Adverse Reactions: Allergy/AdvReac Type Severity Reaction Status Date / Time No Known Allergies Allergy Verified 05/20/19 17:52 Date of admission: 06/26/19 16:58 Primary care physician: Peter Carlson MD Consults: 06/25/19 09:11 Consult to Vascular Surgery [CONS] Routine Consulting Provider: [facility] Reason for Consult: right vertebral artery occlusion Call Completed: Yes 06/26/19 09:47 PT [Consult to Physical Therapy] [CONS] Routine Comment: Evaluate, develop and implement POC Reason for Consult: Falls Does patient have active BEDREST order?: No Is patient medically & hemodynamically stable?: Yes Patient assessed for mobility or mobilized this visit?: No 06/26/19 09:57 Consult to Occupational Therapy [CONS] Routine Comment: Evaluate, develop and implement POC Reason for Consult: Fall Does patient have active BEDREST order?: No Is patient medically & hemodynamically stable?: Yes Patient assessed for mobility or mobilized this visit?: No Discharging clinician: Evelyn Peters Anticipated date of discharge: 06/28/19 - Constitutional Vitals: Temp Pulse Resp BP Pulse Ox 98.0 F 60 16 134/63 96 06/28/19 15:16 06/28/19 15:16 06/28/19 15:16 06/28/19 15:16 06/28/19 15:16 General appearance: Present: A&O X 3 Exam: PHYSICAL EXAMINATION: GENERAL APPEARANCE: The patient is alert, oriented and in no acute distress. HEENT: Head is normocephalic. The sinuses are nontender. Pupils are equal and reactive. The nares are patent. Oropharynx clear without lesions. NECK: Carotid bruit appreciated on both sides. HEART: Regular rate and rhythm. LUNGS: No crackles or wheezes are heard. ABDOMEN: Soft, nontender, nondistended with good bowel sounds heard. Inguinal area is normal. EXTREMITIES: Without cyanosis, clubbing or edema. NEUROLOGICAL: Gross nonfocal. SKIN: Warm and dry without any rash. - Patient Status Disposition: Home, Self-Care Condition: Good Functional capacity at discharge: independent ambulation Overall status at discharge: patient is back to baseline - Discharge Instructions Instructions: Cephalexin (By mouth), Metoprolol (By mouth), Rosuvastatin (By mouth), Urinary Tract Infection in Men (DC), Fall Prevention (DC) Follow Up With: Peter Carlson MD [Primary Care Provider] - 07/02/19 1:15 pm - Diet and Activity Activity: increase activity as tolerated Diet: advance to your usual diet
[2019-06-28] MEDS ORDERED: *HR* Warfarin 10 MG TABLET PO ONE (18:00)
== END 2019-06-28 17:43 | disposition home or self-care (01) | DRG 312 ==
LOC: 3BNU 13:11 → EMEROOARM 13:11 → 3BNU 19:53
PROVIDERS: ADMIT Student in an Organized Health Care Education/Training Program; ATTEND Student in an Organized Health Care Education/Training Program

== ENCOUNTER 2019-09-22 10:04 | Inpatient (IN) ==
[2019-09-22] MEDS ORDERED: Isovue-370 500 ML BOTTLE IVP ONE (10:14)
[2019-09-22 10:31] LABS: Hematocrit 42.2 % (37.5-50.1); Hemoglobin 13.3 g/dL (12.9-16.9); Mean Corpuscular HGB Conc 31.5 g/dL (31.6-35.5); Mean Corpuscular Hemoglobin 29.6 pg (28.0-33.3); Mean Corpuscular Volume 93.8 fL (83.0-100.0); Mean Platelet Volume 9.9 fL (9.4-12.4); Platelet Count 178 K/mcL (140-400); Red Cell Distribution Width 13.8 % (11.5-14.5)
[2019-09-22 10:49] LABS: Alanine Aminotransferase 26 Units/L (7-52); Albumin 3.9 g/dL (3.5-5.7); Albumin/Globulin Ratio 1.2 (1.1-2.2); Alkaline Phosphatase 78 Units/L (34-104); Aspartate Amino Transferase 20 Units/L (13-39); BUN/Creatinine Ratio 29 (6-26); Bilirubin,Indirect 0.5 mg/dL (0.0-1.0); Bilirubin,Total 0.5 mg/dL (0.3-1.0); Blood Urea Nitrogen 29 mg/dL (8-23); Calcium 9.3 mg/dL (8.6-10.3); Carbon Dioxide 29 mEq/L (23-29); Chloride 104 mEq/L (98-107); Globulin 3.3 g/dL (2.4-3.5); Glucose 181 mg/dL (70-105); Lipase 25 Units/L (11-82); Osmolality,Calculated 294 (280-300); Potassium 4.9 mEq/L (3.5-5.1); Sodium 137 mEq/L (136-145); Total Protein 7.2 g/dL (6.4-8.9); eGFR For African Americans > 60 (> 60); eGFR For Non-African Americans > 60 (> 60)
[2019-09-22 10:57] LABS: Bilirubin,Urine Negative (Negative); Blood,Urine Small (Negative); Clarity,Urine Cloudy (Clear); Color,Urine Yellow (Yellow); Glucose,Urine (UA) Normal (Normal); Ketones,Urine Negative (Negative); Leukocyte Esterase,Urine Large (Negative); Nitrite,Urine Positive (Negative); Protein,Urine 30 mg/dL (Neg-Trace); Specific Gravity,Urine 1.017 (1.010-1.025); Urobilinogen,Urine Normal (Normal)
[2019-09-22 11:00] LABS: Bacteria,Urine Many per hpf (None-Few); Hyaline Casts,Urine None Seen per lpf (None-Few); Squamous Epithelial Cell,Urine None Seen per lpf (None-Few); WBC,Urine TNTC per hpf (0-3)
[2019-09-22 11:00] LABS: INR 1.9; Prothrombin Time 21.6 Seconds (9.4-12.1)
[2019-09-22] MEDS ORDERED: Ondansetron ODT 4 MG TAB.RAPDIS SL PRN (14:34)
[2019-09-22] MEDS ORDERED: Acetaminophen 325 MG TABLET PO PRN (14:34)
[2019-09-22] MEDS ORDERED: Mag Hydrox/Al Hydrox/Simeth 30 ML UDC PO PRN (14:34)
[2019-09-22] MEDS ORDERED: MOM Conc 10 ML UD.LIQ PO PRN (14:34)
[2019-09-22] MEDS ORDERED: *HR* HYDROcodone/Acet 5/325 mg TABLET PO PRN (14:34)
[2019-09-22] MEDS ORDERED: Naloxone 0.4 MG/ML INJ IVP PRN (14:34)
[2019-09-22] MEDS ORDERED: *HR* Dextrose 50 % in Water (Syg) 50 ML SYRINGE IVP PRN (14:39)
[2019-09-22] MEDS ORDERED: Dextrose Gel 15 GM/37.5 ML TUBE PO PRN ×2 (14:39)
[2019-09-22] MEDS ORDERED: D5% in Water 1,000 ML IVC PRN (14:39)
[2019-09-22] MEDS: cefTRIAXone 1,000 MG in Water for inj. (sterile) 10 ML IVP SCH (16:08)
[2019-09-22] MEDS: *HR* OxyCODONE/APAP 10/325 TABLET PO PRN ×2 (16:08→20:42)
[2019-09-22] MEDS: Insulin LISPRO 300 UNITS/3 ML VIAL SQ SCH ×2 (16:40→20:37)
[2019-09-22] MEDS ORDERED: Warfarin perPT PO PRN (18:00)
[2019-09-22] MEDS ORDERED: *HR* Warfarin 7.5 MG TABLET PO ONE (18:00)
[2019-09-22] MEDS: Topiramate 25 MG TABLET PO SCH (20:42)
[2019-09-22] MEDS: traZODone 50 MG TABLET PO SCH (20:42)
[2019-09-22] MEDS: Gabapentin 400 MG CAPSULE PO SCH (20:42)
[2019-09-23 04:42] LABS: Hematocrit 38.1 % (37.5-50.1); Hemoglobin 11.9 g/dL (12.9-16.9); Mean Corpuscular HGB Conc 31.2 g/dL (31.6-35.5); Mean Corpuscular Volume 92.7 fL (83.0-100.0); Platelet Count 156 K/mcL (140-400); Red Blood Count 4.11 M/mcL (4.19-5.50); Red Cell Distribution Width 13.9 % (11.5-14.5); White Blood Count 4.4 K/mcL (4.3-11.1)
[2019-09-23 04:52] LABS: INR 1.9
[2019-09-23 05:04] LABS: BUN/Creatinine Ratio 27 (6-26); Blood Urea Nitrogen 27 mg/dL (8-23); Calcium 9.1 mg/dL (8.6-10.3); Carbon Dioxide 26 mEq/L (23-29); Chloride 104 mEq/L (98-107); Chol/HDL Ratio 8.6 (0-4.9); Cholesterol 223 mg/dL (< 200); Glucose 102 mg/dL (70-105); HDL Cholesterol 26 mg/dL (40-59); LDL Cholesterol,Calculated 156 mg/dL (0-99); Osmolality,Calculated 293 (280-300); Potassium 4.5 mEq/L (3.5-5.1); Sodium 139 mEq/L (136-145); Triglycerides 207 mg/dL (< 150); eGFR For African Americans > 60 (> 60); eGFR For Non-African Americans > 60 (> 60)
[2019-09-23] MEDS: Insulin LISPRO 300 UNITS/3 ML VIAL SQ SCH ×4 (07:53→20:17)
[2019-09-23] MEDS: Aspirin Enteric Coated 81 MG Tablet PO SCH (08:40)
[2019-09-23] MEDS: Metoprolol XL (24 HR) Succ 25 MG TAB.ER.24H PO SCH (08:40)
[2019-09-23] MEDS: BuPROPion XL (24 HR) 150 MG TABLET PO SCH (08:40)
[2019-09-23] MEDS: cefTRIAXone 1,000 MG in Water for inj. (sterile) 10 ML IVP SCH (08:41)
[2019-09-23] MEDS: *HR* OxyCODONE/APAP 10/325 TABLET PO PRN ×2 (08:45→17:03)
[2019-09-23] MEDS: Insulin DETEMIR 100 UNIT/ML X5UNITS SQ SCH (08:52)
[2019-09-23] MEDS ORDERED: NON-FORMULARY MEDICATION 1 EACH EACH (Ezetimibe [Zetia] 10 MG) PO SCH (09:00)
[2019-09-23] MEDS ORDERED: *HR* Warfarin 7.5 MG TABLET PO ONE (18:00)
[2019-09-23] MEDS: Topiramate 25 MG TABLET PO SCH (20:20)
[2019-09-23] MEDS: traZODone 50 MG TABLET PO SCH (20:20)
[2019-09-23] MEDS: Gabapentin 400 MG CAPSULE PO SCH (20:21)
[2019-09-24 01:43] LABS: Hematocrit 36.5 % (37.5-50.1); Hemoglobin 11.6 g/dL (12.9-16.9); Mean Corpuscular HGB Conc 31.8 g/dL (31.6-35.5); Mean Corpuscular Hemoglobin 29.4 pg (28.0-33.3); Mean Corpuscular Volume 92.6 fL (83.0-100.0); Mean Platelet Volume 10.2 fL (9.4-12.4); Platelet Count 156 K/mcL (140-400); Red Blood Count 3.94 M/mcL (4.19-5.50); Red Cell Distribution Width 13.5 % (11.5-14.5); White Blood Count 4.9 K/mcL (4.3-11.1)
[2019-09-24 01:46] LABS: Prothrombin Time 22.5 Seconds (9.4-12.1)
[2019-09-24] MEDS: Insulin LISPRO 300 UNITS/3 ML VIAL SQ SCH ×4 (07:18→20:18)
[2019-09-24] MEDS: Metoprolol XL (24 HR) Succ 25 MG TAB.ER.24H PO SCH (08:03)
[2019-09-24] MEDS: Aspirin Enteric Coated 81 MG Tablet PO SCH (08:04)
[2019-09-24] MEDS: cefTRIAXone 1,000 MG in Water for inj. (sterile) 10 ML IVP SCH (08:04)
[2019-09-24] MEDS: Insulin DETEMIR 100 UNIT/ML X5UNITS SQ SCH (08:04)
[2019-09-24] MEDS: BuPROPion XL (24 HR) 150 MG TABLET PO SCH (08:05)
[2019-09-24] MEDS: *HR* OxyCODONE/APAP 10/325 TABLET PO PRN ×3 (08:17→20:03)
[2019-09-24] MEDS ORDERED: *HR* Warfarin 10 MG TABLET PO ONE (18:00)
[2019-09-24] MEDS: traZODone 50 MG TABLET PO SCH (19:57)
[2019-09-24] MEDS: Gabapentin 400 MG CAPSULE PO SCH (19:57)
[2019-09-24] MEDS: Topiramate 25 MG TABLET PO SCH (19:57)
[2019-09-25 06:35] LABS: Hematocrit 37.5 % (37.5-50.1); Hemoglobin 11.6 g/dL (12.9-16.9); Mean Corpuscular HGB Conc 30.9 g/dL (31.6-35.5); Mean Corpuscular Hemoglobin 29.7 pg (28.0-33.3); Mean Corpuscular Volume 95.9 fL (83.0-100.0); Mean Platelet Volume 10.1 fL (9.4-12.4); Platelet Count 144 K/mcL (140-400); Red Blood Count 3.91 M/mcL (4.19-5.50); Red Cell Distribution Width 13.8 % (11.5-14.5); White Blood Count 4.5 K/mcL (4.3-11.1)
[2019-09-25 06:38] LABS: INR 2.6; Prothrombin Time 29.1 Seconds (9.4-12.1)
[2019-09-25 06:57] LABS: BUN/Creatinine Ratio 29 (6-26); Blood Urea Nitrogen 39 mg/dL (8-23); Calcium 8.6 mg/dL (8.6-10.3); Carbon Dioxide 27 mEq/L (23-29); Chloride 101 mEq/L (98-107); Glucose 90 mg/dL (70-105); Osmolality,Calculated 293 (280-300); Potassium 4.7 mEq/L (3.5-5.1); Sodium 137 mEq/L (136-145); eGFR For African Americans > 60 (> 60); eGFR For Non-African Americans 52 (> 60)
[2019-09-25] MEDS: Insulin LISPRO 300 UNITS/3 ML VIAL SQ SCH ×2 (08:19→11:30)
[2019-09-25] MEDS: Metoprolol XL (24 HR) Succ 25 MG TAB.ER.24H PO SCH (08:25)
[2019-09-25] MEDS: Aspirin Enteric Coated 81 MG Tablet PO SCH (08:25)
[2019-09-25] MEDS: BuPROPion XL (24 HR) 150 MG TABLET PO SCH (08:26)
[2019-09-25] MEDS: Insulin DETEMIR 100 UNIT/ML X5UNITS SQ SCH (08:27)
[2019-09-25] MEDS: *HR* OxyCODONE/APAP 10/325 TABLET PO PRN ×2 (08:36→15:27)
[2019-09-25] MEDS ORDERED: levoFLOXacin 250 MG TABLET PO SCH (09:00)
[2019-09-25 11:34] VITALS: BP 97/58
[2019-09-25] MEDS ORDERED: *HR* Warfarin 7.5 MG TABLET PO ONE (18:00)
== END 2019-09-25 16:18 | disposition home or self-care (01) | DRG 690 ==
LOC: 3BNU 10:04 → EMEROOARM 10:04 → SUATTDRO 13:52 → 3BNU 14:53 → SUATTDRO 09-24 16:31
PROVIDERS: ADMIT Internal Medicine; ATTEND Internal Medicine

== ENCOUNTER 2019-12-15 12:18 | Inpatient (IN) ==
[2019-12-15] MEDS ORDERED: Aspirin 81 MG TAB.CHEW PO ONE (12:30)
[2019-12-15 12:48] LABS: Basophils % 0.1 %; Eosinophils # 0.1 K/mcL (0.0-0.6); Eosinophils % 1.9 %; Hematocrit 38.3 % (37.5-50.1); Hemoglobin 11.6 g/dL (12.9-16.9); Immature Granulocytes % 0.3 % (0-4); Lymphocytes # 0.7 K/mcL (0.6-4.6); Lymphocytes % 9.9 %; Mean Corpuscular HGB Conc 30.3 g/dL (31.6-35.5); Mean Corpuscular Hemoglobin 28.7 pg (28.0-33.3); Mean Corpuscular Volume 94.8 fL (83.0-100.0); Mean Platelet Volume 10.4 fL (9.4-12.4); Monocytes # 0.7 K/mcL (0.0-1.3); Monocytes % 9.9 %; Neutrophils # 5.7 K/mcL (1.6-8.9); Platelet Count 148 K/mcL (140-400); Red Blood Count 4.04 M/mcL (4.19-5.50); Red Cell Distribution Width 13.3 % (11.5-14.5); Segmented Neutrophils % 77.9 %; White Blood Count 7.3 K/mcL (4.3-11.1)
[2019-12-15 12:52] LABS: INR 3.7; Prothrombin Time 42.4 Seconds (9.4-12.1)
[2019-12-15 12:55] LABS: Activated Partial Thrombo Time 51.6 Seconds (26.0-36.0)
[2019-12-15 13:36] LABS: BUN/Creatinine Ratio 30 (6-26); Blood Urea Nitrogen 35 mg/dL (8-23); Calcium 8.8 mg/dL (8.6-10.3); Carbon Dioxide 26 mEq/L (23-29); Chloride 101 mEq/L (98-107); Glucose 109 mg/dL (70-105); Osmolality,Calculated 291 (280-300); Potassium 4.7 mEq/L (3.5-5.1); Sodium 136 mEq/L (136-145); Troponin I < 0.03 ng/mL (< 0.04); eGFR For African Americans > 60 (> 60); eGFR For Non-African Americans 60 (> 60)
[2019-12-15] MEDS ORDERED: Acetaminophen 325 MG TABLET PO ONE (13:48)
[2019-12-15] MEDS ORDERED: Naloxone 0.4 MG/ML INJ IVP PRN (15:28)
[2019-12-15] MEDS ORDERED: *HR* Dextrose 50 % in Water (Syg) 50 ML SYRINGE IVP PRN (15:32)
[2019-12-15] MEDS ORDERED: D5% in Water 1,000 ML IVC PRN (15:32)
[2019-12-15] MEDS ORDERED: Dextrose Gel 15 GM/37.5 ML TUBE PO PRN ×2 (15:32)
[2019-12-15] MEDS: Insulin LISPRO 300 UNITS/3 ML VIAL SQ SCH (16:45)
[2019-12-15] MEDS: *HR* OxyCODONE/APAP 10/325 TABLET PO PRN ×2 (16:49→22:41)
[2019-12-15] MEDS ORDERED: Warfarin perPT PO PRN (18:00)
[2019-12-15] MEDS: lisinopriL 10 MG TABLET PO SCH (21:46)
[2019-12-15] MEDS: Gabapentin 300 MG CAPSULE PO SCH (21:46)
[2019-12-15] MEDS: Topiramate 25 MG TABLET PO SCH (21:47)
[2019-12-15] MEDS: traZODone 50 MG TABLET PO SCH (21:47)
[2019-12-16 01:09] LABS: INR 3.7; Prothrombin Time 42.5 Seconds (9.4-12.1)
[2019-12-16 01:10] LABS: Hematocrit 38.1 % (37.5-50.1); Hemoglobin 11.6 g/dL (12.9-16.9); Mean Corpuscular HGB Conc 30.4 g/dL (31.6-35.5); Mean Corpuscular Hemoglobin 28.8 pg (28.0-33.3); Mean Corpuscular Volume 94.5 fL (83.0-100.0); Mean Platelet Volume 10.9 fL (9.4-12.4); Platelet Count 132 K/mcL (140-400); Red Blood Count 4.03 M/mcL (4.19-5.50); Red Cell Distribution Width 13.2 % (11.5-14.5); White Blood Count 5.4 K/mcL (4.3-11.1)
[2019-12-16 01:24] LABS: BUN/Creatinine Ratio 31 (6-26); Blood Urea Nitrogen 34 mg/dL (8-23); Calcium 8.7 mg/dL (8.6-10.3); Carbon Dioxide 27 mEq/L (23-29); Chloride 105 mEq/L (98-107); Glucose 83 mg/dL (70-105); Osmolality,Calculated 289 (280-300); Potassium 4.2 mEq/L (3.5-5.1); Sodium 136 mEq/L (136-145); eGFR For African Americans > 60 (> 60); eGFR For Non-African Americans > 60 (> 60)
[2019-12-16] MEDS: *HR* OxyCODONE/APAP 10/325 TABLET PO PRN ×3 (05:40→21:38)
[2019-12-16] MEDS: Insulin LISPRO 300 UNITS/3 ML VIAL SQ SCH ×3 (08:40→17:19)
[2019-12-16] MEDS: Aspirin Enteric Coated 81 MG Tablet PO SCH (09:02)
[2019-12-16] MEDS: lisinopriL 10 MG TABLET PO SCH ×2 (09:02→21:23)
[2019-12-16] MEDS: BuPROPion XL (24 HR) 150 MG TABLET PO SCH (09:02)
[2019-12-16] MEDS: Lactobacillus 1 EACH CAP.SPRINK PO SCH (09:02)
[2019-12-16] MEDS ORDERED: Acetaminophen 325 MG TABLET PO PRN (13:37)
[2019-12-16] MEDS: polyethylene glycoL 3350 17 GM POWD.PACK PO SCH (14:20)
[2019-12-16] MEDS: Gabapentin 300 MG CAPSULE PO SCH (21:23)
[2019-12-16] MEDS: Topiramate 25 MG TABLET PO SCH (21:23)
[2019-12-16] MEDS: traZODone 50 MG TABLET PO SCH (21:23)
[2019-12-17 05:16] LABS: INR 2.6; Prothrombin Time 29.7 Seconds (9.4-12.1)
[2019-12-17] MEDS: Insulin LISPRO 300 UNITS/3 ML VIAL SQ SCH ×3 (07:51→16:13)
[2019-12-17] MEDS: polyethylene glycoL 3350 17 GM POWD.PACK PO SCH (08:13)
[2019-12-17] MEDS: Aspirin Enteric Coated 81 MG Tablet PO SCH (08:13)
[2019-12-17] MEDS: Lactobacillus 1 EACH CAP.SPRINK PO SCH (08:13)
[2019-12-17] MEDS: lisinopriL 10 MG TABLET PO SCH ×2 (08:13→20:16)
[2019-12-17] MEDS: BuPROPion XL (24 HR) 150 MG TABLET PO SCH (08:13)
[2019-12-17] MEDS: *HR* OxyCODONE/APAP 10/325 TABLET PO PRN (16:48)
[2019-12-17] MEDS ORDERED: *HR* Warfarin 7.5 MG TABLET PO ONE (18:00)
[2019-12-17] MEDS: traZODone 50 MG TABLET PO SCH (20:16)
[2019-12-17] MEDS: Topiramate 25 MG TABLET PO SCH (20:16)
[2019-12-17] MEDS: Gabapentin 300 MG CAPSULE PO SCH (20:16)
[2019-12-18 06:06] LABS: INR 2.6; Prothrombin Time 29.3 Seconds (9.4-12.1)
[2019-12-18] MEDS: Lactobacillus 1 EACH CAP.SPRINK PO SCH (08:19)
[2019-12-18] MEDS: BuPROPion XL (24 HR) 150 MG TABLET PO SCH (08:19)
[2019-12-18] MEDS: lisinopriL 10 MG TABLET PO SCH ×2 (08:19→20:23)
[2019-12-18] MEDS: Aspirin Enteric Coated 81 MG Tablet PO SCH (08:19)
[2019-12-18] MEDS: Insulin LISPRO 300 UNITS/3 ML VIAL SQ SCH ×3 (08:20→17:01)
[2019-12-18] MEDS: polyethylene glycoL 3350 17 GM POWD.PACK PO SCH (08:20)
[2019-12-18] MEDS ORDERED: *HR* Warfarin 7.5 MG TABLET PO ONE (18:00)
[2019-12-18] MEDS: Gabapentin 300 MG CAPSULE PO SCH (20:23)
[2019-12-18] MEDS: Topiramate 25 MG TABLET PO SCH (20:23)
[2019-12-18] MEDS: traZODone 50 MG TABLET PO SCH (20:23)
[2019-12-19 01:56] LABS: Prothrombin Time 34.6 Seconds (9.4-12.1)
[2019-12-19] MEDS: Insulin LISPRO 300 UNITS/3 ML VIAL SQ SCH (08:09)
[2019-12-19] MEDS: BuPROPion XL (24 HR) 150 MG TABLET PO SCH (08:10)
[2019-12-19] MEDS: Lactobacillus 1 EACH CAP.SPRINK PO SCH (08:10)
[2019-12-19] MEDS: Aspirin Enteric Coated 81 MG Tablet PO SCH (08:10)
[2019-12-19] MEDS: polyethylene glycoL 3350 17 GM POWD.PACK PO SCH (08:10)
[2019-12-19] MEDS: lisinopriL 10 MG TABLET PO SCH (08:15)
[2019-12-19 10:26] VITALS: BP 146/65
[2019-12-19] MEDS ORDERED: *HR* Warfarin 2.5 MG TABLET PO ONE (18:00)
== END 2019-12-19 13:48 ==
LOC: 3BNU 12:18 → EMEROOARM 12:18 → SUATTDRO 14:31 → 3BNU 15:30 → SUATTDRO 12-16 13:34
PROVIDERS: ADMIT Internal Medicine; ATTEND Internal Medicine

== ENCOUNTER 2020-05-23 12:49 | Inpatient (IN) ==
[2020-05-23] MEDS ORDERED: Ondansetron 4 MG/2 ML VIAL IVP ONE (13:13)
[2020-05-23] MEDS ORDERED: Isovue-370 500 ML BOTTLE IVP ONE (13:13)
[2020-05-23] MEDS ORDERED: 0.9 % Sodium Chloride 500 ML IVC ONE (13:13)
[2020-05-23 13:31] LABS: INR 2.2; Prothrombin Time 25.1 Seconds (9.4-12.1)
[2020-05-23 13:34] LABS: Activated Partial Thrombo Time 44.3 Seconds (26.0-36.0)
[2020-05-23 13:39] LABS: Basophils % 0.3 %; Eosinophils # 0.2 K/mcL (0.0-0.6); Eosinophils % 2.8 %; Hematocrit 38.7 % (37.5-50.1); Hemoglobin 12.2 g/dL (12.9-16.9); Immature Granulocytes % 0.7 % (0-4); Lymphocytes % 16.5 %; Mean Corpuscular HGB Conc 31.5 g/dL (31.6-35.5); Mean Corpuscular Hemoglobin 30.1 pg (28.0-33.3); Mean Corpuscular Volume 95.6 fL (83.0-100.0); Mean Platelet Volume 10.4 fL (9.4-12.4); Monocytes # 0.7 K/mcL (0.0-1.3); Monocytes % 11.1 %; Neutrophils # 4.1 K/mcL (1.6-8.9); Platelet Count 145 K/mcL (140-400); Red Blood Count 4.05 M/mcL (4.19-5.50); Red Cell Distribution Width 14.7 % (11.5-14.5); Segmented Neutrophils % 68.6 %
[2020-05-23 13:49] LABS: Alanine Aminotransferase 15 Units/L (7-52); Albumin 4.3 g/dL (3.5-5.7); Albumin/Globulin Ratio 1.4 (1.1-2.2); Alkaline Phosphatase 60 Units/L (34-104); Aspartate Amino Transferase 14 Units/L (13-39); BUN/Creatinine Ratio 25 (6-26); Bilirubin,Indirect 0.4 mg/dL (0.0-1.0); Bilirubin,Total 0.4 mg/dL (0.3-1.0); Blood Urea Nitrogen 30 mg/dL (8-23); Calcium 9.4 mg/dL (8.6-10.3); Carbon Dioxide 22 mEq/L (23-29); Chloride 103 mEq/L (98-107); Glucose 114 mg/dL (70-105); Lipase 30 Units/L (11-82); Osmolality,Calculated 285 (280-300); Potassium 4.2 mEq/L (3.5-5.1); Sodium 134 mEq/L (136-145); Total Protein 7.3 g/dL (6.4-8.9); Troponin I < 0.03 ng/mL (< 0.04); eGFR For African Americans > 60 (> 60); eGFR For Non-African Americans 58 (> 60)
[2020-05-23] MEDS ORDERED: Aspirin 81 MG TAB.CHEW PO ONE (14:47)
[2020-05-23 15:56] LABS: Bacteria,Urine Few per hpf (None-Few); Bilirubin,Urine Negative (Negative); Blood,Urine Negative (Negative); Clarity,Urine Clear (Clear); Color,Urine Light-Yellow (Yellow); Glucose,Urine (UA) Normal (Normal); Ketones,Urine Negative (Negative); Leukocyte Esterase,Urine Large (Negative); Nitrite,Urine Positive (Negative); Protein,Urine Trace mg/dL (Neg-Trace); Specific Gravity,Urine 1.026 (1.010-1.025); Squamous Epithelial Cell,Urine Few per hpf (None-Few); Urobilinogen,Urine Normal (Normal); WBC,Urine 30-50 per hpf (0-3)
[2020-05-23] MEDS ORDERED: cefTRIAXone 1,000 MG in Water for inj. (sterile) 10 ML IVP ONE (16:00)
[2020-05-23] MEDS ORDERED: Ondansetron 4 MG/2 ML VIAL IVP PRN (16:17)
[2020-05-23] MEDS ORDERED: Naloxone 0.4 MG/ML INJ IVP PRN (16:17)
[2020-05-23] MEDS ORDERED: D5% in Water 1,000 ML IVC PRN (17:22)
[2020-05-23] MEDS ORDERED: *HR* Dextrose 50 % in Water (Vial) 50 ML VIAL IVP PRN (17:22)
[2020-05-23] MEDS ORDERED: Dextrose Gel 15 GM/37.5 ML TUBE PO PRN ×2 (17:22)
[2020-05-23] MEDS ORDERED: Nitroglycerin 0.4 MG TAB.SUBL SL PRN (17:29)
[2020-05-23] MEDS ORDERED: polyethylene glycoL 3350 17 GM POWD.PACK PO PRN (17:50)
[2020-05-23] MEDS ORDERED: Warfarin perPT PO PRN (18:00)
[2020-05-23] MEDS: Insulin LISPRO 300 UNITS/3 ML VIAL SQ SCH ×2 (18:42→20:23)
[2020-05-23] MEDS ORDERED: *HR* Warfarin 5 MG TABLET PO ONE (19:00)
[2020-05-23] MEDS: lisinopriL 10 MG TABLET PO SCH (20:22)
[2020-05-23] MEDS: traZODone 50 MG TABLET PO SCH (20:22)
[2020-05-23] MEDS: Topiramate 25 MG TABLET PO SCH (20:22)
[2020-05-23] MEDS: Gabapentin 300 MG CAPSULE PO SCH (20:23)
[2020-05-23] MEDS: Ranolazine 500 MG TAB.ER.12H PO SCH (20:23)
[2020-05-24 02:53] LABS: Basophils % 0.6 %; Eosinophils # 0.2 K/mcL (0.0-0.6); Eosinophils % 3.3 %; Hematocrit 38.2 % (37.5-50.1); Hemoglobin 12.1 g/dL (12.9-16.9); Immature Granulocytes % 0.6 % (0-4); Lymphocytes # 1.2 K/mcL (0.6-4.6); Lymphocytes % 22.6 %; Mean Corpuscular HGB Conc 31.7 g/dL (31.6-35.5); Mean Corpuscular Hemoglobin 30.9 pg (28.0-33.3); Mean Corpuscular Volume 97.4 fL (83.0-100.0); Mean Platelet Volume 10.6 fL (9.4-12.4); Monocytes # 0.6 K/mcL (0.0-1.3); Monocytes % 12.4 %; Neutrophils # 3.1 K/mcL (1.6-8.9); Platelet Count 133 K/mcL (140-400); Red Blood Count 3.92 M/mcL (4.19-5.50); Red Cell Distribution Width 14.8 % (11.5-14.5); Segmented Neutrophils % 60.5 %; White Blood Count 5.1 K/mcL (4.3-11.1)
[2020-05-24 02:56] LABS: BUN/Creatinine Ratio 21 (6-26); Blood Urea Nitrogen 27 mg/dL (8-23); Calcium 9.1 mg/dL (8.6-10.3); Carbon Dioxide 26 mEq/L (23-29); Chloride 105 mEq/L (98-107); Chol/HDL Ratio 11.5 (0-4.9); Cholesterol 344 mg/dL (< 200); Glucose 132 mg/dL (70-105); HDL Cholesterol 30 mg/dL (40-59); Magnesium 2.2 mg/dL (1.6-2.6); Osmolality,Calculated 289 (280-300); Potassium 4.7 mEq/L (3.5-5.1); Sodium 136 mEq/L (136-145); Triglycerides 412 mg/dL (< 150); eGFR For African Americans > 60 (> 60); eGFR For Non-African Americans 55 (> 60)
[2020-05-24 03:01] LABS: INR 2.4; Prothrombin Time 27.1 Seconds (9.4-12.1)
[2020-05-24] MEDS ORDERED: Regadenoson 0.4 MG/5 ML SYRINGE IVP ONE (07:02)
[2020-05-24] MEDS: Insulin LISPRO 300 UNITS/3 ML VIAL SQ SCH ×4 (07:35→20:58)
[2020-05-24] MEDS: lisinopriL 10 MG TABLET PO SCH ×2 (08:17→21:03)
[2020-05-24] MEDS: Ranolazine 500 MG TAB.ER.12H PO SCH ×2 (10:36→21:03)
[2020-05-24] MEDS: Aspirin Enteric Coated 81 MG Tablet PO SCH (10:37)
[2020-05-24] MEDS: Multivit/Ca/Min/Fe/FA 1 TAB TABLET PO SCH (10:37)
[2020-05-24] MEDS: BuPROPion XL (24 HR) 150 MG TABLET PO SCH (10:58)
[2020-05-24] MEDS: *HR* OxyCODONE/APAP 10/325 TABLET PO PRN ×2 (13:32→21:03)
[2020-05-24] MEDS ORDERED: cefTRIAXone 1,000 MG in Water for inj. (sterile) 10 ML IVP SCH (16:00)
[2020-05-24] MEDS ORDERED: *HR* Warfarin 7.5 MG TABLET PO ONE (18:00)
[2020-05-24] MEDS: Gabapentin 300 MG CAPSULE PO SCH (21:03)
[2020-05-24] MEDS: Topiramate 25 MG TABLET PO SCH (21:03)
[2020-05-24] MEDS: traZODone 50 MG TABLET PO SCH (21:04)
[2020-05-25 05:29] LABS: Basophils % 0.7 %; Eosinophils # 0.2 K/mcL (0.0-0.6); Eosinophils % 5.5 %; Hemoglobin 11.7 g/dL (12.9-16.9); Immature Granulocytes % 0.7 % (0-4); Lymphocytes # 1.1 K/mcL (0.6-4.6); Lymphocytes % 25.8 %; Mean Corpuscular HGB Conc 30.8 g/dL (31.6-35.5); Mean Corpuscular Hemoglobin 29.8 pg (28.0-33.3); Mean Corpuscular Volume 96.7 fL (83.0-100.0); Mean Platelet Volume 10.2 fL (9.4-12.4); Monocytes # 0.4 K/mcL (0.0-1.3); Monocytes % 10.1 %; Neutrophils # 2.5 K/mcL (1.6-8.9); Platelet Count 128 K/mcL (140-400); Red Blood Count 3.93 M/mcL (4.19-5.50); Red Cell Distribution Width 14.8 % (11.5-14.5); Segmented Neutrophils % 57.2 %; White Blood Count 4.3 K/mcL (4.3-11.1)
[2020-05-25 05:47] LABS: Prothrombin Time 34.5 Seconds (9.4-12.1)
[2020-05-25 05:48] LABS: BUN/Creatinine Ratio 19 (6-26); Blood Urea Nitrogen 24 mg/dL (8-23); Calcium 8.3 mg/dL (8.6-10.3); Carbon Dioxide 22 mEq/L (23-29); Chloride 103 mEq/L (98-107); Glucose 105 mg/dL (70-105); Osmolality,Calculated 278 (280-300); Potassium 4.1 mEq/L (3.5-5.1); Sodium 132 mEq/L (136-145); eGFR For African Americans > 60 (> 60); eGFR For Non-African Americans 56 (> 60)
[2020-05-25] MEDS: Insulin LISPRO 300 UNITS/3 ML VIAL SQ SCH ×4 (07:24→22:52)
[2020-05-25] MEDS: Aspirin Enteric Coated 81 MG Tablet PO SCH (08:39)
[2020-05-25] MEDS: Ranolazine 500 MG TAB.ER.12H PO SCH ×2 (08:40→22:49)
[2020-05-25] MEDS: Multivit/Ca/Min/Fe/FA 1 TAB TABLET PO SCH (08:40)
[2020-05-25] MEDS: BuPROPion XL (24 HR) 150 MG TABLET PO SCH (08:40)
[2020-05-25] MEDS: lisinopriL 10 MG TABLET PO SCH ×2 (08:40→22:49)
[2020-05-25] MEDS: Cefdinir 300 MG CAPSULE PO SCH ×2 (12:02→22:51)
[2020-05-25] MEDS ORDERED: *HR* Warfarin 5 MG TABLET PO ONE (18:00)
[2020-05-25] MEDS ORDERED: 0.9 % Sodium Chloride 250 ML IVC SCH ×2 (19:00→22:45)
[2020-05-25] MEDS: Gabapentin 300 MG CAPSULE PO SCH (22:49)
[2020-05-25] MEDS: Topiramate 25 MG TABLET PO SCH (22:49)
[2020-05-25] MEDS: traZODone 50 MG TABLET PO SCH (22:51)
[2020-05-26 06:38] LABS: Prothrombin Time 33.6 Seconds (9.4-12.1)
[2020-05-26] MEDS: Insulin LISPRO 300 UNITS/3 ML VIAL SQ SCH ×4 (07:38→21:25)
[2020-05-26] MEDS: BuPROPion XL (24 HR) 150 MG TABLET PO SCH (08:08)
[2020-05-26] MEDS: lisinopriL 10 MG TABLET PO SCH ×2 (08:08→20:59)
[2020-05-26] MEDS: Ranolazine 500 MG TAB.ER.12H PO SCH ×2 (08:08→20:59)
[2020-05-26] MEDS: Multivit/Ca/Min/Fe/FA 1 TAB TABLET PO SCH (08:08)
[2020-05-26] MEDS: Aspirin Enteric Coated 81 MG Tablet PO SCH (08:08)
[2020-05-26] MEDS: Cefdinir 300 MG CAPSULE PO SCH ×2 (08:08→20:59)
[2020-05-26] MEDS ORDERED: *HR* Warfarin 5 MG TABLET PO ONE (18:00)
[2020-05-26] MEDS: Topiramate 25 MG TABLET PO SCH (20:59)
[2020-05-26] MEDS: Gabapentin 300 MG CAPSULE PO SCH (20:59)
[2020-05-26] MEDS: traZODone 50 MG TABLET PO SCH (20:59)
[2020-05-27 07:34] LABS: Basophils % 0.4 %; Eosinophils # 0.2 K/mcL (0.0-0.6); Hematocrit 39.7 % (37.5-50.1); Hemoglobin 12.4 g/dL (12.9-16.9); Immature Granulocytes % 0.6 % (0-4); Immature Platelets 3.8 % (1.1-6.1); Lymphocytes # 0.9 K/mcL (0.6-4.6); Lymphocytes % 18.8 %; Mean Corpuscular HGB Conc 31.2 g/dL (31.6-35.5); Mean Corpuscular Volume 96.1 fL (83.0-100.0); Mean Platelet Volume 9.8 fL (9.4-12.4); Monocytes # 0.5 K/mcL (0.0-1.3); Monocytes % 9.9 %; Neutrophils # 3.2 K/mcL (1.6-8.9); Platelet Count 144 K/mcL (140-400); Red Blood Count 4.13 M/mcL (4.19-5.50); Red Cell Distribution Width 14.8 % (11.5-14.5); Segmented Neutrophils % 65.3 %; White Blood Count 4.8 K/mcL (4.3-11.1)
[2020-05-27 07:52] LABS: Calcium 9.1 mg/dL (8.6-10.3); Magnesium 2.3 mg/dL (1.6-2.6); Potassium 4.5 mEq/L (3.5-5.1)
[2020-05-27 07:55] LABS: INR 2.4; Prothrombin Time 27.5 Seconds (9.4-12.1)
[2020-05-27] MEDS: Insulin LISPRO 300 UNITS/3 ML VIAL SQ SCH ×4 (08:02→20:56)
[2020-05-27] MEDS: Cefdinir 300 MG CAPSULE PO SCH ×2 (10:08→20:55)
[2020-05-27] MEDS: Aspirin Enteric Coated 81 MG Tablet PO SCH (10:08)
[2020-05-27] MEDS: Ranolazine 500 MG TAB.ER.12H PO SCH ×2 (10:09→20:56)
[2020-05-27] MEDS: lisinopriL 10 MG TABLET PO SCH ×2 (10:09→20:56)
[2020-05-27] MEDS: BuPROPion XL (24 HR) 150 MG TABLET PO SCH (10:09)
[2020-05-27] MEDS: Multivit/Ca/Min/Fe/FA 1 TAB TABLET PO SCH (10:09)
[2020-05-27] MEDS: 0.9 % Sodium Chloride 1,000 ML IVC SCH (15:20)
[2020-05-27] MEDS ORDERED: *HR* Warfarin 7.5 MG TABLET PO ONE (18:00)
[2020-05-27] MEDS: Gabapentin 300 MG CAPSULE PO SCH (20:55)
[2020-05-27] MEDS: traZODone 50 MG TABLET PO SCH (20:56)
[2020-05-27] MEDS: Topiramate 25 MG TABLET PO SCH (20:56)
[2020-05-27] MEDS ORDERED: *HR* Labetalol 20 MG/4 ML SYRINGE IVP ONE (20:57)
[2020-05-28 05:45] LABS: BUN/Creatinine Ratio 20 (6-26); Blood Urea Nitrogen 27 mg/dL (8-23); Calcium 8.6 mg/dL (8.6-10.3); Carbon Dioxide 21 mEq/L (23-29); Chloride 105 mEq/L (98-107); Glucose 109 mg/dL (70-105); Osmolality,Calculated 284 (280-300); Potassium 4.4 mEq/L (3.5-5.1); Sodium 134 mEq/L (136-145); eGFR For African Americans > 60 (> 60); eGFR For Non-African Americans 52 (> 60)
[2020-05-28] MEDS: Insulin LISPRO 300 UNITS/3 ML VIAL SQ SCH ×4 (07:54→21:14)
[2020-05-28] MEDS: Multivit/Ca/Min/Fe/FA 1 TAB TABLET PO SCH (09:00)
[2020-05-28] MEDS: Ranolazine 500 MG TAB.ER.12H PO SCH ×2 (09:00→21:32)
[2020-05-28] MEDS: Aspirin Enteric Coated 81 MG Tablet PO SCH (09:00)
[2020-05-28] MEDS: lisinopriL 10 MG TABLET PO SCH ×2 (09:00→21:34)
[2020-05-28] MEDS: BuPROPion XL (24 HR) 150 MG TABLET PO SCH (09:01)
[2020-05-28] MEDS: Cefdinir 300 MG CAPSULE PO SCH ×2 (09:01→21:32)
[2020-05-28] MEDS: 0.9 % Sodium Chloride 1,000 ML IVC SCH ×3 (09:03→21:33)
[2020-05-28] MEDS ORDERED: *HR* Warfarin 10 MG TABLET PO ONE (18:00)
[2020-05-28] MEDS: *HR* OxyCODONE/APAP 10/325 TABLET PO PRN (21:32)
[2020-05-28] MEDS: Topiramate 25 MG TABLET PO SCH (21:32)
[2020-05-28] MEDS: traZODone 50 MG TABLET PO SCH (21:32)
[2020-05-28] MEDS: Gabapentin 300 MG CAPSULE PO SCH (21:32)
[2020-05-29 05:18] LABS: INR 1.9; Prothrombin Time 21.1 Seconds (9.4-12.1)
[2020-05-29] MEDS: Insulin LISPRO 300 UNITS/3 ML VIAL SQ SCH ×3 (08:57→16:27)
[2020-05-29] MEDS: Multivit/Ca/Min/Fe/FA 1 TAB TABLET PO SCH (09:02)
[2020-05-29] MEDS: Cefdinir 300 MG CAPSULE PO SCH (09:03)
[2020-05-29] MEDS: Aspirin Enteric Coated 81 MG Tablet PO SCH (09:03)
[2020-05-29] MEDS: Ranolazine 500 MG TAB.ER.12H PO SCH (09:03)
[2020-05-29] MEDS: lisinopriL 10 MG TABLET PO SCH (09:04)
[2020-05-29] MEDS: BuPROPion XL (24 HR) 150 MG TABLET PO SCH (09:04)
[2020-05-29 15:46] VITALS: BP 158/74
[2020-05-29] MEDS ORDERED: *HR* Warfarin 10 MG TABLET PO ONE (18:00)
== END 2020-05-29 19:06 | disposition other institution (70) | DRG 313 ==
LOC: EMEROOARM 12:49 → 3ANU 12:49 → SUATTDRO 16:52 → 3ANU 17:59
PROVIDERS: ADMIT Internal Medicine; ATTEND Family Medicine

== ENCOUNTER 2020-07-31 13:50 | Inpatient (IN) ==
[2020-07-31] MEDS ORDERED: Isovue-370 500 ML BOTTLE IVP ONE (14:33)
[2020-07-31 14:58] LABS: Basophils % 0.6 %; Eosinophils # 0.2 K/mcL (0.0-0.6); Eosinophils % 3.4 %; Hematocrit 39.2 % (37.5-50.1); Hemoglobin 12.4 g/dL (12.9-16.9); Immature Granulocytes % 0.6 % (0-4); Lymphocytes % 18.6 %; Mean Corpuscular HGB Conc 31.6 g/dL (31.6-35.5); Mean Corpuscular Hemoglobin 30.3 pg (28.0-33.3); Mean Corpuscular Volume 95.8 fL (83.0-100.0); Mean Platelet Volume 10.5 fL (9.4-12.4); Monocytes # 0.6 K/mcL (0.0-1.3); Monocytes % 10.4 %; Neutrophils # 3.5 K/mcL (1.6-8.9); Platelet Count 159 K/mcL (140-400); Red Blood Count 4.09 M/mcL (4.19-5.50); Segmented Neutrophils % 66.4 %; White Blood Count 5.3 K/mcL (4.3-11.1)
[2020-07-31 15:07] LABS: INR 3.1; Prothrombin Time 34.9 Seconds (9.4-12.1)
[2020-07-31 15:15] LABS: BUN/Creatinine Ratio 23 (6-26); Blood Urea Nitrogen 26 mg/dL (8-23); Calcium 9.2 mg/dL (8.6-10.3); Carbon Dioxide 24 mEq/L (23-29); Chloride 103 mEq/L (98-107); Glucose 115 mg/dL (70-105); Osmolality,Calculated 284 (280-300); Potassium 4.5 mEq/L (3.5-5.1); Sodium 134 mEq/L (136-145); Troponin I < 0.03 ng/mL (< 0.04); eGFR For African Americans > 60 (> 60); eGFR For Non-African Americans > 60 (> 60)
[2020-07-31] MEDS: Nitroglycerin 0.4 MG TAB.SUBL SL PRN ×2 (16:02→16:28)
[2020-07-31] MEDS ORDERED: cefTRIAXone 1,000 MG in 0.9 % Sodium Chloride Mini Bag 100 ML IVPB ONE (16:13)
[2020-07-31] MEDS ORDERED: Azithromycin 500 MG in 0.9 % Sodium Chloride 250 ML IVPB ONE (16:13)
[2020-07-31] MEDS ORDERED: Naloxone 0.4 MG/ML INJ IVP PRN (17:57)
[2020-07-31] MEDS ORDERED: D5% in Water 1,000 ML IVC PRN (17:58)
[2020-07-31] MEDS ORDERED: *HR* Dextrose 50 % in Water (Vial) 50 ML VIAL IVP PRN (17:58)
[2020-07-31] MEDS ORDERED: Dextrose Gel 15 GM/37.5 ML TUBE PO PRN ×2 (17:58)
[2020-07-31] MEDS ORDERED: Aspirin 325 MG TABLET PO ONE (18:15)
[2020-07-31 19:02] LABS: Bacteria,Urine Few per hpf (None-Few); Bilirubin,Urine Negative (Negative); Blood,Urine Negative (Negative); Clarity,Urine Clear (Clear); Color,Urine Light-Yellow (Yellow); Glucose,Urine (UA) Normal (Normal); Ketones,Urine Negative (Negative); Leukocyte Esterase,Urine Moderate (Negative); Nitrite,Urine Positive (Negative); Protein,Urine Trace mg/dL (Neg-Trace); Specific Gravity,Urine > 1.030 (1.010-1.025); Urobilinogen,Urine Normal (Normal); WBC,Urine 15-30 per hpf (0-3)
[2020-07-31] MEDS: Insulin LISPRO 300 UNITS/3 ML VIAL SQ SCH (21:42)
[2020-07-31] MEDS ORDERED: *HR* OxyCODONE/APAP 10/325 TABLET PO PRN (23:07)
[2020-07-31] MEDS ORDERED: Acetaminophen/Butalbital/CaffeineTABLET PO PRN (23:07)
[2020-07-31] MEDS ORDERED: polyethylene glycoL 3350 17 GM POWD.PACK PO PRN (23:07)
[2020-07-31] MEDS ORDERED: *HR* Warfarin 7.5 MG TABLET PO ONE (23:15)
[2020-08-01 04:14] LABS: INR 2.9; Prothrombin Time 32.8 Seconds (9.4-12.1)
[2020-08-01 04:31] LABS: BUN/Creatinine Ratio 22 (6-26); Blood Urea Nitrogen 24 mg/dL (8-23); Calcium 8.8 mg/dL (8.6-10.3); Carbon Dioxide 26 mEq/L (23-29); Chloride 105 mEq/L (98-107); Glucose 123 mg/dL (70-105); Osmolality,Calculated 287 (280-300); Potassium 4.2 mEq/L (3.5-5.1); Sodium 136 mEq/L (136-145); eGFR For African Americans > 60 (> 60); eGFR For Non-African Americans > 60 (> 60)
[2020-08-01 05:58] LABS: Basophils % 0.4 %; Eosinophils # 0.2 K/mcL (0.0-0.6); Eosinophils % 3.6 %; Hematocrit 37.7 % (37.5-50.1); Hemoglobin 11.7 g/dL (12.9-16.9); Immature Granulocytes % 0.4 % (0-4); Lymphocytes # 1.2 K/mcL (0.6-4.6); Lymphocytes % 26.3 %; Mean Corpuscular Volume 96.7 fL (83.0-100.0); Mean Platelet Volume 11.3 fL (9.4-12.4); Monocytes # 0.5 K/mcL (0.0-1.3); Monocytes % 11.2 %; Neutrophils # 2.7 K/mcL (1.6-8.9); Platelet Count 129 K/mcL (140-400); Segmented Neutrophils % 58.1 %; White Blood Count 4.7 K/mcL (4.3-11.1)
[2020-08-01] MEDS: Insulin LISPRO 300 UNITS/3 ML VIAL SQ SCH ×4 (07:44→19:45)
[2020-08-01] MEDS: BuPROPion XL (24 HR) 150 MG TABLET PO SCH (08:57)
[2020-08-01] MEDS: Aspirin Enteric Coated 81 MG Tablet PO SCH (08:57)
[2020-08-01] MEDS: Azithromycin 250 MG TABLET PO SCH (08:57)
[2020-08-01] MEDS ORDERED: lisinopriL 10 MG TABLET PO SCH (09:00)
[2020-08-01] MEDS ORDERED: Ranolazine 500 MG TAB.ER.12H PO SCH (09:00)
[2020-08-01 09:08] LABS: Estimated Average Glucose 151 mg/dl
[2020-08-01 09:36] LABS: Chol/HDL Ratio 12.4 (0-4.9); Cholesterol 384 mg/dL (< 200); HDL Cholesterol 31 mg/dL (40-59); Triglycerides 502 mg/dL (< 150)
[2020-08-01] MEDS ORDERED: *HR* Warfarin 7.5 MG TABLET PO ONE (18:00)
[2020-08-01] MEDS ORDERED: Warfarin perPT PO PRN (18:00)
[2020-08-01] MEDS: Ranolazine 500 MG TAB.ER.12H PO SCH (20:02)
[2020-08-01] MEDS ORDERED: traZODone 50 MG TABLET PO SCH (21:00)
[2020-08-01] MEDS ORDERED: Gabapentin 300 MG CAPSULE PO SCH (21:00)
[2020-08-01] MEDS ORDERED: lisinopriL 20 MG TABLET PO SCH (21:00)
[2020-08-01] MEDS ORDERED: Topiramate 25 MG TABLET PO SCH (21:00)
[2020-08-02 01:37] LABS: Hematocrit 38.9 % (37.5-50.1); Hemoglobin 12.1 g/dL (12.9-16.9); Immature Platelets 3.9 % (1.1-6.1); Mean Corpuscular HGB Conc 31.1 g/dL (31.6-35.5); Mean Corpuscular Hemoglobin 29.9 pg (28.0-33.3); Red Blood Count 4.05 M/mcL (4.19-5.50); Red Cell Distribution Width 13.9 % (11.5-14.5); White Blood Count 4.7 K/mcL (4.3-11.1)
[2020-08-02 01:39] LABS: INR 2.7; Prothrombin Time 30.3 Seconds (9.4-12.1)
[2020-08-02 01:54] LABS: BUN/Creatinine Ratio 20 (6-26); Blood Urea Nitrogen 24 mg/dL (8-23); Carbon Dioxide 23 mEq/L (23-29); Chloride 104 mEq/L (98-107); Glucose 109 mg/dL (70-105); Osmolality,Calculated 285 (280-300); Potassium 4.1 mEq/L (3.5-5.1); Sodium 135 mEq/L (136-145); eGFR For African Americans > 60 (> 60); eGFR For Non-African Americans 57 (> 60)
[2020-08-02] MEDS: Insulin LISPRO 300 UNITS/3 ML VIAL SQ SCH ×2 (07:57→11:54)
[2020-08-02] MEDS: Ranolazine 500 MG TAB.ER.12H PO SCH (08:04)
[2020-08-02] MEDS ORDERED: Perflutren Lipid Microsphere 1.3 ML in 0.9 % Sodium Chloride 8.7 ML IVP PRN (08:04)
[2020-08-02] MEDS: Azithromycin 250 MG TABLET PO SCH (08:04)
[2020-08-02] MEDS: Aspirin Enteric Coated 81 MG Tablet PO SCH (08:05)
[2020-08-02] MEDS: BuPROPion XL (24 HR) 150 MG TABLET PO SCH (08:05)
[2020-08-02] MEDS ORDERED: cefTRIAXone 1,000 MG in Water for inj. (sterile) 10 ML IVP SCH (09:00)
[2020-08-02] MEDS ORDERED: lisinopriL 10 MG TABLET PO SCH (09:00)
[2020-08-02 11:29] VITALS: BP 103/57
== END 2020-08-02 14:51 | disposition home or self-care (01) | DRG 303 ==
LOC: EMEROOARM 13:50 → 3BNU 13:50
PROVIDERS: ADMIT Internal Medicine; ATTEND Internal Medicine

== ENCOUNTER 2020-08-03 12:24 | Inpatient (IN) ==
[2020-08-03 13:01] LABS: INR 2.7; Prothrombin Time 30.7 Seconds (9.4-12.1)
[2020-08-03 13:04] LABS: Activated Partial Thrombo Time 43.6 Seconds (26.0-36.0)
[2020-08-03 13:38] LABS: Hematocrit 41.5 % (37.5-50.1); Hemoglobin 12.7 g/dL (12.9-16.9); Mean Corpuscular HGB Conc 30.6 g/dL (31.6-35.5); Mean Corpuscular Hemoglobin 30.2 pg (28.0-33.3); Mean Corpuscular Volume 98.8 fL (83.0-100.0); Mean Platelet Volume 10.7 fL (9.4-12.4); Platelet Count 152 K/mcL (140-400); Red Cell Distribution Width 14.1 % (11.5-14.5); White Blood Count 5.8 K/mcL (4.3-11.1)
[2020-08-03 14:11] LABS: Troponin I < 0.03 ng/mL (< 0.04)
[2020-08-03 14:16] LABS: Bilirubin,Urine Negative (Negative); Blood,Urine Negative (Negative); Clarity,Urine Clear (Clear); Color,Urine Yellow (Yellow); Glucose,Urine (UA) Normal (Normal); Hyaline Casts,Urine Few per lpf (None Seen); Ketones,Urine Negative (Negative); Leukocyte Esterase,Urine Large (Negative); Mucus,Urine Few per lpf (None-Few); Nitrite,Urine Negative (Negative); Protein,Urine Negative (Neg-Trace); RBC,Urine 0-3 per hpf (0-3); Specific Gravity,Urine 1.017 (1.010-1.025); Urobilinogen,Urine Normal (Normal); WBC,Urine 15-30 per hpf (0-3)
[2020-08-03] MEDS ORDERED: cefTRIAXone 1,000 MG in Water for inj. (sterile) 10 ML IVP ONE (14:24)
[2020-08-03 14:58] LABS: BUN/Creatinine Ratio 24 (6-26); Blood Urea Nitrogen 38 mg/dL (8-23); Calcium 9.2 mg/dL (8.6-10.3); Carbon Dioxide 23 mEq/L (23-29); Chloride 103 mEq/L (98-107); Glucose 141 mg/dL (70-105); Osmolality,Calculated 293 (280-300); Potassium 4.3 mEq/L (3.5-5.1); Sodium 136 mEq/L (136-145); eGFR For African Americans 51 (> 60); eGFR For Non-African Americans 42 (> 60)
[2020-08-03] MEDS ORDERED: 0.9 % Sodium Chloride 1,000 ML IVC ONE (14:59)
[2020-08-03] MEDS ORDERED: *HR* OxyCODONE Immed Rel 5 MG TABLET PO PRN (16:10)
[2020-08-03] MEDS ORDERED: Ondansetron 4 MG/2 ML VIAL IVP PRN (16:10)
[2020-08-03] MEDS ORDERED: Naloxone 0.4 MG/ML INJ IVP PRN (16:10)
[2020-08-03] MEDS ORDERED: *HR* Dextrose 50 % in Water (Vial) 50 ML VIAL IVP PRN (16:10)
[2020-08-03] MEDS ORDERED: Dextrose Gel 15 GM/37.5 ML TUBE PO PRN ×2 (16:10)
[2020-08-03] MEDS ORDERED: D5% in Water 1,000 ML IVC PRN (16:10)
[2020-08-03] MEDS ORDERED: Acetaminophen 325 MG TABLET PO PRN (16:10)
[2020-08-03] MEDS ORDERED: *HR* HYDROcodone/Acet 5/325 mg TABLET PO PRN (16:10)
[2020-08-03] MEDS ORDERED: *HR* Warfarin 5 MG TABLET PO ONE (18:00)
[2020-08-03] MEDS ORDERED: Warfarin perPT PO PRN (18:00)
[2020-08-03] MEDS: Insulin LISPRO 300 UNITS/3 ML VIAL SQ SCH (18:39)
[2020-08-03] MEDS: cephALEXin 500 MG CAPSULE PO SCH (21:59)
[2020-08-04 05:01] LABS: INR 2.7; Prothrombin Time 30.9 Seconds (9.4-12.1)
[2020-08-04 05:19] LABS: BUN/Creatinine Ratio 22 (6-26); Blood Urea Nitrogen 28 mg/dL (8-23); Calcium 8.5 mg/dL (8.6-10.3); Carbon Dioxide 26 mEq/L (23-29); Chloride 108 mEq/L (98-107); Glucose 136 mg/dL (70-105); Osmolality,Calculated 294 (280-300); Potassium 4.3 mEq/L (3.5-5.1); Sodium 138 mEq/L (136-145); eGFR For African Americans > 60 (> 60); eGFR For Non-African Americans 53 (> 60)
[2020-08-04] MEDS ORDERED: polyethylene glycoL 3350 17 GM POWD.PACK PO PRN (07:47)
[2020-08-04] MEDS: Insulin LISPRO 300 UNITS/3 ML VIAL SQ SCH ×3 (08:33→16:34)
[2020-08-04] MEDS: BuPROPion XL (24 HR) 150 MG TABLET PO SCH (08:36)
[2020-08-04] MEDS: lisinopriL 10 MG TABLET PO SCH ×2 (08:37→21:03)
[2020-08-04] MEDS: Ranolazine 500 MG TAB.ER.12H PO SCH ×2 (08:37→21:02)
[2020-08-04] MEDS: Multivit/Ca/Min/Fe/FA 1 TAB TABLET PO SCH (08:37)
[2020-08-04] MEDS: Aspirin Enteric Coated 81 MG Tablet PO SCH (08:37)
[2020-08-04] MEDS: cephALEXin 500 MG CAPSULE PO SCH ×2 (08:38→21:06)
[2020-08-04] MEDS: (Ezetimibe [Zetia] 10 MG) PO SCH (08:41)
[2020-08-04] MEDS ORDERED: *HR* Warfarin 5 MG TABLET PO ONE (18:00)
[2020-08-04] MEDS: Topiramate 25 MG TABLET PO SCH (21:04)
[2020-08-04] MEDS: Gabapentin 300 MG CAPSULE PO SCH (21:04)
[2020-08-04] MEDS: traZODone 50 MG TABLET PO SCH (21:05)
[2020-08-05 07:29] LABS: INR 2.2; Prothrombin Time 25.1 Seconds (9.4-12.1)
[2020-08-05 07:44] LABS: Hematocrit 37.2 % (37.5-50.1); Hemoglobin 11.4 g/dL (12.9-16.9); Mean Corpuscular HGB Conc 30.6 g/dL (31.6-35.5); Mean Corpuscular Volume 97.9 fL (83.0-100.0); Mean Platelet Volume 10.4 fL (9.4-12.4); Platelet Count 132 K/mcL (140-400); Red Cell Distribution Width 14.2 % (11.5-14.5); White Blood Count 5.1 K/mcL (4.3-11.1)
[2020-08-05 07:58] LABS: Potassium 4.9 mEq/L (3.5-5.1)
[2020-08-05] MEDS: Insulin LISPRO 300 UNITS/3 ML VIAL SQ SCH ×3 (09:27→16:00)
[2020-08-05] MEDS: cephALEXin 500 MG CAPSULE PO SCH ×2 (09:28→20:29)
[2020-08-05] MEDS: BuPROPion XL (24 HR) 150 MG TABLET PO SCH (09:28)
[2020-08-05] MEDS: Ranolazine 500 MG TAB.ER.12H PO SCH ×2 (09:28→20:27)
[2020-08-05] MEDS: Aspirin Enteric Coated 81 MG Tablet PO SCH (09:28)
[2020-08-05] MEDS: Multivit/Ca/Min/Fe/FA 1 TAB TABLET PO SCH (09:28)
[2020-08-05] MEDS: (Ezetimibe [Zetia] 10 MG) PO SCH (09:29)
[2020-08-05] MEDS: lisinopriL 10 MG TABLET PO SCH ×2 (09:33→20:32)
[2020-08-05] MEDS ORDERED: *HR* Warfarin 10 MG TABLET PO ONE (18:00)
[2020-08-05] MEDS: traZODone 50 MG TABLET PO SCH (20:28)
[2020-08-05] MEDS: Topiramate 25 MG TABLET PO SCH (20:29)
[2020-08-05] MEDS: Gabapentin 300 MG CAPSULE PO SCH (20:32)
[2020-08-06 06:22] LABS: Hematocrit 34.9 % (37.5-50.1); Hemoglobin 11.1 g/dL (12.9-16.9); Mean Corpuscular HGB Conc 31.8 g/dL (31.6-35.5); Mean Corpuscular Hemoglobin 31.4 pg (28.0-33.3); Mean Corpuscular Volume 98.6 fL (83.0-100.0); Mean Platelet Volume 10.3 fL (9.4-12.4); Platelet Count 117 K/mcL (140-400); Red Blood Count 3.54 M/mcL (4.19-5.50); Red Cell Distribution Width 14.3 % (11.5-14.5); White Blood Count 4.8 K/mcL (4.3-11.1)
[2020-08-06 06:48] LABS: Calcium 8.6 mg/dL (8.6-10.3); Potassium 4.5 mEq/L (3.5-5.1)
[2020-08-06] MEDS: Insulin LISPRO 300 UNITS/3 ML VIAL SQ SCH ×3 (08:13→17:14)
[2020-08-06] MEDS: lisinopriL 10 MG TABLET PO SCH ×2 (08:15→22:07)
[2020-08-06] MEDS: Ranolazine 500 MG TAB.ER.12H PO SCH ×2 (08:20→22:07)
[2020-08-06] MEDS: Multivit/Ca/Min/Fe/FA 1 TAB TABLET PO SCH (08:26)
[2020-08-06] MEDS: Aspirin Enteric Coated 81 MG Tablet PO SCH (08:26)
[2020-08-06] MEDS: cephALEXin 500 MG CAPSULE PO SCH ×2 (08:26→22:07)
[2020-08-06] MEDS: BuPROPion XL (24 HR) 150 MG TABLET PO SCH (08:26)
[2020-08-06] MEDS ORDERED: Furosemide 20 MG/2 ML VIAL IVP ONE (11:32)
[2020-08-06] MEDS ORDERED: *HR* Warfarin 10 MG TABLET PO ONE (18:00)
[2020-08-06] MEDS: traZODone 50 MG TABLET PO SCH (22:07)
[2020-08-06] MEDS: Topiramate 25 MG TABLET PO SCH (22:07)
[2020-08-06] MEDS: Gabapentin 300 MG CAPSULE PO SCH (22:07)
[2020-08-07 07:16] LABS: Mean Corpuscular Volume 98.7 fL (83.0-100.0); Mean Platelet Volume 10.3 fL (9.4-12.4); Red Cell Distribution Width 14.2 % (11.5-14.5)
[2020-08-07 07:18] LABS: Hematocrit 39.2 % (37.5-50.1); Immature Platelets 4.1 % (1.1-6.1); Mean Corpuscular HGB Conc 30.6 g/dL (31.6-35.5); Mean Corpuscular Hemoglobin 30.2 pg (28.0-33.3); Red Blood Count 3.97 M/mcL (4.19-5.50); White Blood Count 5.2 K/mcL (4.3-11.1)
[2020-08-07 07:27] LABS: INR 1.7; Magnesium 2.1 mg/dL (1.6-2.6); Potassium 4.4 mEq/L (3.5-5.1)
[2020-08-07] MEDS: Insulin LISPRO 300 UNITS/3 ML VIAL SQ SCH ×2 (08:01→12:06)
[2020-08-07] MEDS: Multivit/Ca/Min/Fe/FA 1 TAB TABLET PO SCH (08:02)
[2020-08-07] MEDS: Aspirin Enteric Coated 81 MG Tablet PO SCH (08:02)
[2020-08-07] MEDS: Ranolazine 500 MG TAB.ER.12H PO SCH (08:02)
[2020-08-07] MEDS: cephALEXin 500 MG CAPSULE PO SCH (08:02)
[2020-08-07] MEDS: BuPROPion XL (24 HR) 150 MG TABLET PO SCH (08:02)
[2020-08-07] MEDS: lisinopriL 10 MG TABLET PO SCH (08:03)
[2020-08-07 09:24] LABS: Adenovirus Not Detected (Not Detect); Bordetella Pertussis Not Detected (Not Detect); Chlamydophila pneumoniae Not Detected (Not Detect); Coronavirus 229E Not Detected (Not Detect); Coronavirus HKU1 Not Detected (Not Detect); Coronavirus NL63 Not Detected (Not Detect); Coronavirus OC43 Not Detected (Not Detect); Human Metapneumovirus Not Detected (Not Detect); Human Rhinovirus/Enterovirus Not Detected (Not Detect); Influenza A Subtype 2009 H1 Not Detected (Not Detect); Influenza B Not Detected (Not Detect); Mycoplasma pneumoniae Not Detected (Not Detect); Parainfluenza Virus 1 Not Detected (Not Detect); Parainfluenza Virus 2 Not Detected (Not Detect); Parainfluenza Virus 3 Not Detected (Not Detect); Parainfluenza Virus 4 Not Detected (Not Detect); Respiratory Syncytial Virus Not Detected (Not Detect); SARS-CoV-2 Not Detected (Not Detect)
[2020-08-07 11:38] VITALS: BP 112/61
[2020-08-07] MEDS ORDERED: FLU Vac QV 20-21 (6Month+)/PF 0.5 ML SYRINGE IM ONE (14:37)
[2020-08-07] MEDS ORDERED: *HR* Warfarin 10 MG TABLET PO ONE (18:00)
== END 2020-08-07 17:08 | disposition other institution (70) | DRG 690 ==
LOC: EMEROOARM 12:24 → 3ANU 12:24 → SUATTDRO 15:37 → 3ANU 16:35 → SUATTDRO 08-04 14:05
PROVIDERS: ADMIT Internal Medicine; ATTEND Internal Medicine

== ENCOUNTER 2020-08-19 17:01 | Inpatient (IN) ==
[2020-08-19] MEDS ORDERED: *HR* OxyCODONE Immed Rel 5 MG TABLET PO PRN (22:02)
[2020-08-19] MEDS ORDERED: Naloxone 0.4 MG/ML INJ IVP PRN (22:02)
[2020-08-19] MEDS ORDERED: Ondansetron 4 MG/2 ML VIAL IVP PRN (22:02)
[2020-08-19] MEDS ORDERED: Doxycycline 100 MG in 0.9 % Sodium Chloride Mini Bag 100 ML IVPB SCH (22:18)
[2020-08-19] MEDS ORDERED: polyethylene glycoL 3350 17 GM POWD.PACK PO PRN (22:18)
[2020-08-19] MEDS: lisinopriL 10 MG TABLET PO SCH (23:20)
[2020-08-20] MEDS: Azithromycin 500 MG in 0.9 % Sodium Chloride 250 ML IVPB SCH ×2 (00:53→23:28)
[2020-08-20] MEDS: Piperacillin/Tazobactam 3.375 GM in 0.9 % Sodium Chloride Mini Bag 100 ML IVPB SCH ×3 (04:10→20:41)
[2020-08-20] MEDS ORDERED: Acetaminophen 325 MG TABLET PO PRN (06:53)
[2020-08-20] MEDS: Budesonide/Formoterol 160/4.5 1 PUFF INH IH SCH ×2 (07:50→20:05)
[2020-08-20] MEDS ORDERED: Vancomycin 1,500 MG/265 ML IV.SOLN IVPB ONE (08:15)
[2020-08-20 08:43] LABS: Hematocrit 36.4 % (37.5-50.1); Hemoglobin 11.6 g/dL (12.9-16.9); Mean Corpuscular HGB Conc 31.9 g/dL (31.6-35.5); Mean Corpuscular Hemoglobin 29.8 pg (28.0-33.3); Mean Corpuscular Volume 93.6 fL (83.0-100.0); Mean Platelet Volume 9.4 fL (9.4-12.4); Platelet Count 174 K/mcL (140-400); Red Blood Count 3.89 M/mcL (4.19-5.50); Red Cell Distribution Width 15.6 % (11.5-14.5); White Blood Count 9.5 K/mcL (4.3-11.1)
[2020-08-20] MEDS: lisinopriL 10 MG TABLET PO SCH ×2 (08:48→21:15)
[2020-08-20] MEDS: BuPROPion XL (24 HR) 150 MG TABLET PO SCH (08:48)
[2020-08-20] MEDS: Ranolazine 500 MG TAB.ER.12H PO SCH ×2 (08:48→22:17)
[2020-08-20] MEDS: Aspirin Enteric Coated 81 MG Tablet PO SCH (08:48)
[2020-08-20] MEDS: Multivit/Ca/Min/Fe/FA 1 TAB TABLET PO SCH (08:48)
[2020-08-20] MEDS: Dexamethasone 4 MG/ML VIAL IVP SCH (08:56)
[2020-08-20 09:05] LABS: BUN/Creatinine Ratio 16 (6-26); Blood Urea Nitrogen 16 mg/dL (8-23); Calcium 8.1 mg/dL (8.6-10.3); Carbon Dioxide 24 mEq/L (23-29); Chloride 102 mEq/L (98-107); Creatine Kinase 359 Units/L (30-223); Glucose 95 mg/dL (70-105); Lactate Dehydrogenase 287 Units/L (140-271); Osmolality,Calculated 277 (280-300); Potassium 3.5 mEq/L (3.5-5.1); Sodium 133 mEq/L (136-145); eGFR For African Americans > 60 (> 60); eGFR For Non-African Americans > 60 (> 60)
[2020-08-20 09:21] LABS: Ferritin 141 ng/mL (20-250)
[2020-08-20 10:22] LABS: C-Reactive Protein 111 mg/L (Less than 10)
[2020-08-20 13:40] LABS: INR 3.4; Prothrombin Time 37.6 Seconds (9.4-12.1)
[2020-08-20 13:54] LABS: Albumin 3.3 g/dL (3.5-5.7); Albumin/Globulin Ratio 1.4 (1.1-2.2); Bilirubin,Direct 0.1 mg/dL (0.0-0.2); Bilirubin,Indirect 0.4 mg/dL (0.0-1.0); Bilirubin,Total 0.5 mg/dL (0.3-1.0); Globulin 2.4 g/dL (2.4-3.5); Total Protein 5.7 g/dL (6.4-8.9)
[2020-08-20] MEDS ORDERED: SODIUM CHLORIDE 0.9% IVPB ONE (17:00)
[2020-08-20] MEDS ORDERED: REMDESIVIR IVPB ONE (17:00)
[2020-08-20] MEDS ORDERED: Warfarin perPT PO PRN (18:00)
[2020-08-20] MEDS ORDERED: *HR* Metoprolol 5 MG/5 ML VIAL IVP ONE (20:20)
[2020-08-20] MEDS: Vancomycin 1,250 MG/262.5 ML IV.SOLN IVPB SCH (21:15)
[2020-08-20] MEDS: traZODone 50 MG TABLET PO SCH (22:17)
[2020-08-20] MEDS: Topiramate 25 MG TABLET PO SCH (22:17)
[2020-08-20] MEDS: Gabapentin 300 MG CAPSULE PO SCH (22:17)
[2020-08-20] MEDS: DilTIAZem 50 MG/50 ML IV.SOLN IVC SCH (23:13)
[2020-08-21 03:44] LABS: ABG Base Excess -3 mEq/L (-2 to 3); ABG HCO3 22 mEq/L (21-27); ABG Oxygen Saturation 75 % (95-98); ABG PCO2 42 mmHg (35-45); ABG PH 7.34 pH Units (7.32-7.45); ABG PO2 43 mmHg (85-104); ABG TCO2 24 mEq/L (20-26); Blood Gas Modality ASSIST CONTROL; Blood Gas VT 500 cc
[2020-08-21] MEDS: Piperacillin/Tazobactam 3.375 GM in 0.9 % Sodium Chloride Mini Bag 100 ML IVPB SCH ×3 (04:08→22:37)
[2020-08-21] MEDS ORDERED: Furosemide 40 MG/4 ML VIAL IVP ONE (04:10)
[2020-08-21] MEDS: DilTIAZem 50 MG/50 ML IV.SOLN IVC SCH ×2 (04:41→09:45)
[2020-08-21] MEDS ORDERED: Artificial Tears SOLN 15 ML BOTTLE BOTH EYES PRN (04:44)
[2020-08-21 04:52] LABS: Basophils % 0.1 %; Hematocrit 32.5 % (37.5-50.1); Hemoglobin 10.5 g/dL (12.9-16.9); Immature Granulocytes % 0.7 % (0-4); Lymphocytes # 0.4 K/mcL (0.6-4.6); Lymphocytes % 5.1 %; Mean Corpuscular HGB Conc 32.3 g/dL (31.6-35.5); Mean Corpuscular Hemoglobin 30.9 pg (28.0-33.3); Mean Corpuscular Volume 95.6 fL (83.0-100.0); Mean Platelet Volume 9.7 fL (9.4-12.4); Monocytes # 0.2 K/mcL (0.0-1.3); Monocytes % 2.4 %; Neutrophils # 7.7 K/mcL (1.6-8.9); Platelet Count 151 K/mcL (140-400); Red Cell Distribution Width 15.7 % (11.5-14.5); Segmented Neutrophils % 91.7 %; White Blood Count 8.4 K/mcL (4.3-11.1)
[2020-08-21 04:58] LABS: INR 5.1; Prothrombin Time 56.4 Seconds (9.4-12.1)
[2020-08-21 05:14] LABS: Alanine Aminotransferase 24 Units/L (7-52); Albumin 2.9 g/dL (3.5-5.7); Albumin/Globulin Ratio 1.3 (1.1-2.2); Alkaline Phosphatase 33 Units/L (34-104); Aspartate Amino Transferase 49 Units/L (13-39); BUN/Creatinine Ratio 15 (6-26); Bilirubin,Direct 0.1 mg/dL (0.0-0.2); Bilirubin,Indirect 0.3 mg/dL (0.0-1.0); Bilirubin,Total 0.4 mg/dL (0.3-1.0); Blood Urea Nitrogen 20 mg/dL (8-23); Calcium 7.5 mg/dL (8.6-10.3); Carbon Dioxide 23 mEq/L (23-29); Chloride 103 mEq/L (98-107); Globulin 2.2 g/dL (2.4-3.5); Glucose 101 mg/dL (70-105); Osmolality,Calculated 285 (280-300); Potassium 3.8 mEq/L (3.5-5.1); Sodium 136 mEq/L (136-145); Total Protein 5.1 g/dL (6.4-8.9); eGFR For African Americans > 60 (> 60); eGFR For Non-African Americans 52 (> 60)
[2020-08-21] MEDS: Pantoprazole 40 MG VIAL IVP SCH (06:02)
[2020-08-21 06:37] LABS: ABG Base Excess -3 mEq/L (-2 to 3); ABG HCO3 23 mEq/L (21-27); ABG Oxygen Saturation 93 % (95-98); ABG PCO2 46 mmHg (35-45); ABG PH 7.31 pH Units (7.32-7.45); ABG PO2 72 mmHg (85-104); ABG TCO2 24 mEq/L (20-26); Blood Gas Modality AF; Blood Gas VT 450 cc
[2020-08-21] MEDS: Aspirin Enteric Coated 81 MG Tablet PO SCH (07:32)
[2020-08-21] MEDS: BuPROPion XL (24 HR) 150 MG TABLET PO SCH (07:33)
[2020-08-21] MEDS: Multivit/Ca/Min/Fe/FA 1 TAB TABLET PO SCH (07:33)
[2020-08-21] MEDS: Ranolazine 500 MG TAB.ER.12H PO SCH ×2 (07:33→22:32)
[2020-08-21] MEDS: lisinopriL 10 MG TABLET PO SCH ×2 (07:33→22:34)
[2020-08-21] MEDS: FentaNYL (PF) 1,000 MCG/100 ML IV.SOLN IVC SCH (07:34)
[2020-08-21] MEDS: Midazolam HCl 50 MG/100 ML IV.SOLN IVC SCH (07:34)
[2020-08-21] MEDS: Chlorhexidine Rinse 15 ML MOUTHWASH MM SCH ×2 (07:43→22:37)
[2020-08-21] MEDS: Artificial Tears SOLN 15 ML BOTTLE BOTH EYES SCH ×4 (07:43→22:32)
[2020-08-21] MEDS: Dexamethasone 4 MG/ML VIAL IVP SCH (07:43)
[2020-08-21] MEDS: Budesonide/Formoterol 160/4.5 1 PUFF INH IH SCH ×3 (07:51→21:41)
[2020-08-21] MEDS ORDERED: *HR* Heparin 5,000 UNIT/ML VIAL IVP PRN ×2 (08:01)
[2020-08-21] MEDS ORDERED: *HR* Heparin 5,000 UNIT/ML VIAL IVP ONE (08:01)
[2020-08-21] MEDS ORDERED: Heparin 25,000UNIT/250ML 1/2NS 25,000 UNIT/250 ML IV.SOLN IVC SCH (08:15)
[2020-08-21 08:41] LABS: Heparin anti-factor XA UFH < 0.04 IU/mL (0.30-0.70)
[2020-08-21 08:49] LABS: D-Dimer 3536 ng/mLFEU (0-500); INR 5.1; Prothrombin Time 56.6 Seconds (9.4-12.1)
[2020-08-21 09:08] LABS: Amorphous Sediment,Urine Few per hpf (None-Few); Bacteria,Urine Few per hpf (None-Few); Bilirubin,Urine Negative (Negative); Blood,Urine Trace (Negative); Clarity,Urine Turbid (Clear); Color,Urine Light-Yellow (Yellow); Glucose,Urine (UA) Normal (Normal); Hyaline Casts,Urine Few per lpf (None Seen); Ketones,Urine Negative (Negative); Leukocyte Esterase,Urine Negative (Negative); Mucus,Urine Few per lpf (None-Few); Nitrite,Urine Negative (Negative); Protein,Urine 30 mg/dL (Neg-Trace); RBC,Urine 0-3 per hpf (0-3); Specific Gravity,Urine 1.012 (1.010-1.025); Squamous Epithelial Cell,Urine Few per hpf (None-Few); Urobilinogen,Urine Normal (Normal)
[2020-08-21 11:56] LABS: Lipase 7 Units/L (11-82)
[2020-08-21] MEDS ORDERED: Isovue-370 500 ML BOTTLE IVP ONE ×2 (15:10→15:22)
[2020-08-21] MEDS ORDERED: Dexamethasone 4 MG/ML VIAL IVP ONE (15:35)
[2020-08-21] MEDS ORDERED: Remdesivir 100 MG in 0.9 % Sodium Chloride 230 ML IVPB SCH (17:00)
[2020-08-21 19:03] LABS: Hematocrit 31.7 % (37.5-50.1); Hemoglobin 9.8 g/dL (12.9-16.9)
[2020-08-21 19:27] LABS: Albumin 2.9 g/dL (3.5-5.7); Albumin/Globulin Ratio 1.3 (1.1-2.2); Bilirubin,Total 0.3 mg/dL (0.3-1.0); Calcium 7.2 mg/dL (8.6-10.3); Globulin 2.2 g/dL (2.4-3.5); Potassium 3.6 mEq/L (3.5-5.1); Total Protein 5.1 g/dL (6.4-8.9)
[2020-08-21 19:38] LABS: Thyroid Stimulating Hormone 21.368 mcIU/mL (0.340-5.600)
[2020-08-21] MEDS: Topiramate 25 MG TABLET PO SCH (22:32)
[2020-08-21] MEDS: Gabapentin 300 MG CAPSULE PO SCH (22:32)
[2020-08-21] MEDS: traZODone 50 MG TABLET PO SCH (22:33)
[2020-08-21] MEDS: Vancomycin 1,250 MG/262.5 ML IV.SOLN IVPB SCH (22:38)
[2020-08-22] MEDS: Azithromycin 500 MG in 0.9 % Sodium Chloride 250 ML IVPB SCH (00:04)
[2020-08-22] MEDS: FentaNYL (PF) 1,000 MCG/100 ML IV.SOLN IVC SCH ×2 (00:09→22:17)
[2020-08-22] MEDS: Artificial Tears SOLN 15 ML BOTTLE BOTH EYES SCH ×7 (00:09→23:15)
[2020-08-22] MEDS: Midazolam HCl 50 MG/100 ML IV.SOLN IVC SCH ×2 (00:10→22:17)
[2020-08-22] MEDS: DilTIAZem 50 MG/50 ML IV.SOLN IVC SCH ×4 (01:49→22:16)
[2020-08-22] MEDS: Piperacillin/Tazobactam 3.375 GM in 0.9 % Sodium Chloride Mini Bag 100 ML IVPB SCH ×3 (04:04→20:04)
[2020-08-22 04:07] LABS: INR 2.6; Prothrombin Time 28.9 Seconds (9.4-12.1)
[2020-08-22 04:12] LABS: Basophils % 0.1 %; Hematocrit 31.8 % (37.5-50.1); Hemoglobin 10.2 g/dL (12.9-16.9); Immature Granulocytes % 0.9 % (0-4); Lymphocytes # 0.4 K/mcL (0.6-4.6); Lymphocytes % 5.4 %; Mean Corpuscular HGB Conc 32.1 g/dL (31.6-35.5); Mean Corpuscular Hemoglobin 30.4 pg (28.0-33.3); Mean Corpuscular Volume 94.6 fL (83.0-100.0); Mean Platelet Volume 9.5 fL (9.4-12.4); Monocytes # 0.2 K/mcL (0.0-1.3); Neutrophils # 7.2 K/mcL (1.6-8.9); Platelet Count 154 K/mcL (140-400); Red Blood Count 3.36 M/mcL (4.19-5.50); Red Cell Distribution Width 16.1 % (11.5-14.5); Segmented Neutrophils % 90.6 %; White Blood Count 7.9 K/mcL (4.3-11.1)
[2020-08-22 04:14] LABS: Albumin 2.9 g/dL (3.5-5.7); Albumin/Globulin Ratio 1.2 (1.1-2.2); Albumin/Globulin Ratio 1.3 (1.1-2.2); Bilirubin,Direct 0.1 mg/dL (0.0-0.2); Bilirubin,Indirect 0.3 mg/dL (0.0-1.0); Bilirubin,Total 0.4 mg/dL (0.3-1.0); Calcium 7.5 mg/dL (8.6-10.3); Globulin 2.4 g/dL (2.4-3.5); Magnesium 1.4 mg/dL (1.6-2.6); Phosphorous 4.9 mg/dL (2.7-4.5); Potassium 3.7 mEq/L (3.5-5.1); Total Protein 5.3 g/dL (6.4-8.9); Total Protein 5.4 g/dL (6.4-8.9)
[2020-08-22 04:59] LABS: ABG Base Excess -6 mEq/L (-2 to 3); ABG HCO3 21 mEq/L (21-27); ABG Oxygen Saturation 91 % (95-98); ABG PCO2 44 mmHg (35-45); ABG PH 7.28 pH Units (7.32-7.45); ABG PO2 69 mmHg (85-104); ABG TCO2 22 mEq/L (20-26); Blood Gas Modality ASSIST CONTROL; Blood Gas VT 450 cc
[2020-08-22] MEDS: Pantoprazole 40 MG VIAL IVP SCH (05:41)
[2020-08-22] MEDS ORDERED: *HR* Enoxaparin 40 MG/0.4 ML SYRINGE SQ SCH (06:00)
[2020-08-22] MEDS ORDERED: Levothyroxine Sodium 100 MCG VIAL IVP SCH (07:45)
[2020-08-22] MEDS: Chlorhexidine Rinse 15 ML MOUTHWASH MM SCH ×2 (07:57→20:04)
[2020-08-22] MEDS: Dexamethasone 4 MG/ML VIAL IVP SCH (07:57)
[2020-08-22] MEDS: Budesonide/Formoterol 160/4.5 1 PUFF INH IH SCH ×2 (09:33→22:08)
[2020-08-22] MEDS ORDERED: Acetaminophen 650 MG RECTAL SUPP RC PRN (10:43)
[2020-08-22] MEDS: Albumin Human 5% 12.5 GM/250 ML IV.SOLN IVC SCH ×2 (11:00→15:30)
[2020-08-22 11:37] LABS: ABG Base Excess -7 mEq/L (-2 to 3); ABG HCO3 19 mEq/L (21-27); ABG Oxygen Saturation 85 % (95-98); ABG PCO2 38 mmHg (35-45); ABG PH 7.31 pH Units (7.32-7.45); ABG PO2 55 mmHg (85-104); ABG TCO2 20 mEq/L (20-26); Blood Gas Modality ASSIST CONTROL; Blood Gas VT 450 cc
[2020-08-22 16:28] LABS: Hematocrit 30.3 % (37.5-50.1); Hemoglobin 9.8 g/dL (12.9-16.9); Mean Corpuscular HGB Conc 32.3 g/dL (31.6-35.5); Mean Corpuscular Volume 95.9 fL (83.0-100.0); Mean Platelet Volume 9.8 fL (9.4-12.4); Platelet Count 132 K/mcL (140-400); Red Blood Count 3.16 M/mcL (4.19-5.50); Red Cell Distribution Width 16.1 % (11.5-14.5); White Blood Count 8.1 K/mcL (4.3-11.1)
[2020-08-22 16:33] LABS: VBG HCO3 19 mEq/L (21-27); VBG Ionized Calcium 1.01 mmol/L (1.15-1.35); VBG PCO2 44 mmHg (41-51); VBG PH 7.25 pH Units (7.32-7.42); VBG PO2 142 mmHg (25-50)
[2020-08-23] MEDS: Piperacillin/Tazobactam 3.375 GM in 0.9 % Sodium Chloride Mini Bag 100 ML IVPB SCH ×2 (03:11→14:30)
[2020-08-23] MEDS: Artificial Tears SOLN 15 ML BOTTLE BOTH EYES SCH ×5 (03:11→19:59)
[2020-08-23 03:24] LABS: Basophils % 0.1 %; Hematocrit 31.3 % (37.5-50.1); Lymphocytes # 0.3 K/mcL (0.6-4.6); Lymphocytes % 3.3 %; Mean Corpuscular HGB Conc 31.9 g/dL (31.6-35.5); Mean Corpuscular Hemoglobin 30.7 pg (28.0-33.3); Monocytes # 0.2 K/mcL (0.0-1.3); Monocytes % 2.2 %; Neutrophils # 7.7 K/mcL (1.6-8.9); Nucleated Red Blood Cells 0.2 /100 WBC (0); Platelet Count 122 K/mcL (140-400); Red Blood Count 3.26 M/mcL (4.19-5.50); Red Cell Distribution Width 16.3 % (11.5-14.5); Segmented Neutrophils % 93.4 %; White Blood Count 8.3 K/mcL (4.3-11.1)
[2020-08-23 03:32] LABS: INR 1.3; Prothrombin Time 14.8 Seconds (9.4-12.1)
[2020-08-23 03:44] LABS: Albumin 3.4 g/dL (3.5-5.7); Albumin/Globulin Ratio 1.4 (1.1-2.2); Bilirubin,Direct 0.1 mg/dL (0.0-0.2); Bilirubin,Indirect 0.3 mg/dL (0.0-1.0); Bilirubin,Total 0.4 mg/dL (0.3-1.0); Globulin 2.5 g/dL (2.4-3.5); Magnesium 1.6 mg/dL (1.6-2.6); Phosphorous 5.1 mg/dL (2.7-4.5); Potassium 3.5 mEq/L (3.5-5.1); Total Protein 5.9 g/dL (6.4-8.9)
[2020-08-23 03:46] LABS: VBG Ionized Calcium 1.07 mmol/L (1.15-1.35)
[2020-08-23] MEDS: DilTIAZem 50 MG/50 ML IV.SOLN IVC SCH ×4 (03:50→22:31)
[2020-08-23 04:28] LABS: ABG Base Excess -8 mEq/L (-2 to 3); ABG HCO3 19 mEq/L (21-27); ABG Oxygen Saturation 93 % (95-98); ABG PCO2 41 mmHg (35-45); ABG PH 7.26 pH Units (7.32-7.45); ABG PO2 76 mmHg (85-104); ABG TCO2 20 mEq/L (20-26); Blood Gas Modality ASSIST CONTROL; Blood Gas VT 450 cc
[2020-08-23] MEDS: Pantoprazole 40 MG VIAL IVP SCH (05:22)
[2020-08-23] MEDS: Chlorhexidine Rinse 15 ML MOUTHWASH MM SCH ×2 (07:52→21:12)
[2020-08-23] MEDS: Dexamethasone 4 MG/ML VIAL IVP SCH (07:52)
[2020-08-23] MEDS: Levothyroxine Sodium 100 MCG VIAL IVP SCH (07:52)
[2020-08-23] MEDS ORDERED: Sodium Bicarbonate 150 MEQ in D5% in Water 1,000 ML IVC SCH (09:15)
[2020-08-23] MEDS ORDERED: *HR* Heparin 5,000 UNIT/ML VIAL IVP ONE (10:21)
[2020-08-23] MEDS ORDERED: *HR* Heparin 5,000 UNIT/ML VIAL IVP PRN ×2 (10:21)
[2020-08-23] MEDS: Budesonide/Formoterol 160/4.5 1 PUFF INH IH SCH ×2 (11:13→21:41)
[2020-08-23] MEDS: Heparin 25,000UNIT/250ML 1/2NS 25,000 UNIT/250 ML IV.SOLN IVC SCH (11:44)
[2020-08-23] MEDS ORDERED: 0.9 % Sodium Chloride 500 ML ONE (14:00)
[2020-08-23] MEDS: *HR* Metoprolol 5 MG/5 ML VIAL IVP PRN (16:26)
[2020-08-23] MEDS ORDERED: Dextrose Gel 15 GM/37.5 ML TUBE PO PRN ×2 (16:35)
[2020-08-23] MEDS ORDERED: D5% in Water 1,000 ML IVC PRN (16:35)
[2020-08-23] MEDS: Insulin LISPRO 300 UNITS/3 ML VIAL SQ SCH (18:05)
[2020-08-24] MEDS: Insulin LISPRO 300 UNITS/3 ML VIAL SQ SCH ×4 (00:03→18:51)
[2020-08-24] MEDS: Artificial Tears SOLN 15 ML BOTTLE BOTH EYES SCH ×6 (00:04→20:22)
[2020-08-24 02:07] LABS: VBG Ionized Calcium 1.03 mmol/L (1.15-1.35)
[2020-08-24 02:10] LABS: INR 1.3; Prothrombin Time 15.1 Seconds (9.4-12.1)
[2020-08-24 02:17] LABS: Basophils % 0.1 %; Hematocrit 31.3 % (37.5-50.1); Immature Granulocytes % 0.9 % (0-4); Lymphocytes # 0.3 K/mcL (0.6-4.6); Lymphocytes % 2.5 %; Mean Corpuscular HGB Conc 31.9 g/dL (31.6-35.5); Mean Corpuscular Hemoglobin 29.9 pg (28.0-33.3); Mean Corpuscular Volume 93.4 fL (83.0-100.0); Mean Platelet Volume 10.1 fL (9.4-12.4); Monocytes # 0.3 K/mcL (0.0-1.3); Monocytes % 2.2 %; Platelet Count 124 K/mcL (140-400); Red Blood Count 3.35 M/mcL (4.19-5.50); Red Cell Distribution Width 16.1 % (11.5-14.5); Segmented Neutrophils % 94.3 %; White Blood Count 11.7 K/mcL (4.3-11.1)
[2020-08-24 02:37] LABS: Albumin 3.5 g/dL (3.5-5.7); Albumin/Globulin Ratio 1.5 (1.1-2.2); Bilirubin,Direct 0.1 mg/dL (0.0-0.2); Bilirubin,Indirect 0.4 mg/dL (0.0-1.0); Bilirubin,Total 0.5 mg/dL (0.3-1.0); Calcium 7.7 mg/dL (8.6-10.3); Globulin 2.4 g/dL (2.4-3.5); Magnesium 1.7 mg/dL (1.6-2.6); Phosphorous 3.3 mg/dL (2.7-4.5); Potassium 2.9 mEq/L (3.5-5.1); Total Protein 5.9 g/dL (6.4-8.9)
[2020-08-24 02:39] LABS: Heparin anti-factor XA UFH 1.34 IU/mL (0.30-0.70)
[2020-08-24] MEDS: Piperacillin/Tazobactam 3.375 GM in 0.9 % Sodium Chloride Mini Bag 100 ML IVPB SCH ×2 (02:47→13:20)
[2020-08-24] MEDS ORDERED: Potassium Chloride 40 MEQ/200 ML BAG IVPB PRN (04:29)
[2020-08-24] MEDS: DilTIAZem 50 MG/50 ML IV.SOLN IVC SCH ×4 (04:33→21:50)
[2020-08-24] MEDS: FentaNYL (PF) 1,000 MCG/100 ML IV.SOLN IVC SCH (04:34)
[2020-08-24] MEDS: Midazolam HCl 50 MG/100 ML IV.SOLN IVC SCH (04:35)
[2020-08-24 04:59] LABS: Blood Gas VT 500 cc; Mixed Venous Blood pCO2 43 mmHg (44-46); Mixed Venous Blood pH 7.37 pH Units (7.34-7.36); Mixed Venous Blood pO2 42 mmHg (35-45)
[2020-08-24] MEDS: Heparin 25,000UNIT/250ML 1/2NS 25,000 UNIT/250 ML IV.SOLN IVC SCH ×2 (05:41→17:58)
[2020-08-24] MEDS: Pantoprazole 40 MG VIAL IVP SCH (05:59)
[2020-08-24 08:31] LABS: Basophils % 0.1 %; Hematocrit 31.2 % (37.5-50.1); Hemoglobin 10.2 g/dL (12.9-16.9); Immature Granulocytes % 0.8 % (0-4); Lymphocytes # 0.2 K/mcL (0.6-4.6); Lymphocytes % 1.8 %; Mean Corpuscular HGB Conc 32.7 g/dL (31.6-35.5); Mean Corpuscular Hemoglobin 30.9 pg (28.0-33.3); Mean Corpuscular Volume 94.5 fL (83.0-100.0); Mean Platelet Volume 9.9 fL (9.4-12.4); Monocytes # 0.3 K/mcL (0.0-1.3); Monocytes % 2.1 %; Nucleated Red Blood Cells 0.2 /100 WBC (0); Platelet Count 114 K/mcL (140-400); Red Cell Distribution Width 16.2 % (11.5-14.5); Segmented Neutrophils % 95.2 %; White Blood Count 12.6 K/mcL (4.3-11.1)
[2020-08-24 08:44] LABS: Calcium 7.8 mg/dL (8.6-10.3); Potassium 2.9 mEq/L (3.5-5.1)
[2020-08-24] MEDS: Budesonide/Formoterol 160/4.5 1 PUFF INH IH SCH ×2 (09:29→22:02)
[2020-08-24] MEDS: Levothyroxine Sodium 100 MCG VIAL IVP SCH (09:40)
[2020-08-24] MEDS: Chlorhexidine Rinse 15 ML MOUTHWASH MM SCH ×2 (09:40→20:22)
[2020-08-24] MEDS: Dexamethasone 4 MG/ML VIAL IVP SCH (09:40)
[2020-08-24] MEDS: Calcium Gluconate 1gm/50mL 1 GM/50 ML BAG IVPB PRN ×2 (13:20→20:24)
[2020-08-24] MEDS: Potassium Chloride Elixir 20 MEQ/15 ML UDC GTUBE SCH ×3 (13:21→20:24)
[2020-08-24] MEDS ORDERED: Sodium Bicarbonate 150 MEQ in D5% in Water 1,000 ML IVC SCH (21:40)
[2020-08-24] MEDS: Sodium Bicarbonate 150 MEQ in D5% in Water 1,000 ML IVC SCH (23:06)
[2020-08-25] MEDS: Artificial Tears SOLN 15 ML BOTTLE BOTH EYES SCH ×7 (00:19→23:59)
[2020-08-25] MEDS: Insulin LISPRO 300 UNITS/3 ML VIAL SQ SCH ×3 (00:34→11:46)
[2020-08-25] MEDS: DilTIAZem 50 MG/50 ML IV.SOLN IVC SCH ×3 (02:50→16:30)
[2020-08-25 04:53] LABS: ABG Base Excess 1 mEq/L (-2 to 3); ABG HCO3 26 mEq/L (21-27); ABG Oxygen Saturation 89 % (95-98); ABG PCO2 45 mmHg (35-45); ABG PH 7.38 pH Units (7.32-7.45); ABG PO2 58 mmHg (85-104); ABG TCO2 28 mEq/L (20-26); Blood Gas Modality ASSIST CONTROL; Blood Gas VT 450 cc
[2020-08-25 05:21] LABS: Basophils % 0.2 %; Hematocrit 27.7 % (37.5-50.1); Hematocrit 28.1 % (37.5-50.1); Hemoglobin 9.1 g/dL (12.9-16.9); Hemoglobin 9.2 g/dL (12.9-16.9); Immature Granulocytes % 1.2 % (0-4); Lymphocytes # 0.2 K/mcL (0.6-4.6); Lymphocytes % 2.2 %; Mean Corpuscular HGB Conc 32.7 g/dL (31.6-35.5); Mean Corpuscular HGB Conc 32.9 g/dL (31.6-35.5); Mean Corpuscular Hemoglobin 31.1 pg (28.0-33.3); Mean Corpuscular Volume 94.5 fL (83.0-100.0); Mean Corpuscular Volume 94.9 fL (83.0-100.0); Mean Platelet Volume 10.3 fL (9.4-12.4); Monocytes # 0.2 K/mcL (0.0-1.3); Neutrophils # 9.4 K/mcL (1.6-8.9); Nucleated Red Blood Cells 0.2 /100 WBC (0); Platelet Count 110 K/mcL (140-400); Platelet Count 113 K/mcL (140-400); Red Blood Count 2.93 M/mcL (4.19-5.50); Red Blood Count 2.96 M/mcL (4.19-5.50); Red Cell Distribution Width 16.2 % (11.5-14.5); Red Cell Distribution Width 16.3 % (11.5-14.5); Segmented Neutrophils % 94.4 %; White Blood Count 9.6 K/mcL (4.3-11.1); White Blood Count 9.9 K/mcL (4.3-11.1)
[2020-08-25 05:25] LABS: VBG Ionized Calcium 1.11 mmol/L (1.15-1.35)
[2020-08-25 05:31] LABS: INR 1.1
[2020-08-25] MEDS: Piperacillin/Tazobactam 3.375 GM in 0.9 % Sodium Chloride Mini Bag 100 ML IVPB SCH ×3 (05:33→23:58)
[2020-08-25] MEDS: FentaNYL (PF) 1,000 MCG/100 ML IV.SOLN IVC SCH ×2 (05:34→10:15)
[2020-08-25] MEDS: Midazolam HCl 50 MG/100 ML IV.SOLN IVC SCH (05:34)
[2020-08-25 05:43] LABS: Albumin 3.3 g/dL (3.5-5.7); Albumin/Globulin Ratio 1.4 (1.1-2.2); Bilirubin,Direct 0.2 mg/dL (0.0-0.2); Bilirubin,Indirect 0.4 mg/dL (0.0-1.0); Bilirubin,Total 0.6 mg/dL (0.3-1.0); Globulin 2.3 g/dL (2.4-3.5); Magnesium 1.8 mg/dL (1.6-2.6); Phosphorous 1.9 mg/dL (2.7-4.5); Total Protein 5.6 g/dL (6.4-8.9)
[2020-08-25 06:01] LABS: Albumin 3.3 g/dL (3.5-5.7); Albumin/Globulin Ratio 1.4 (1.1-2.2); Bilirubin,Total 0.6 mg/dL (0.3-1.0); Globulin 2.4 g/dL (2.4-3.5); Potassium 3.2 mEq/L (3.5-5.1); Total Protein 5.7 g/dL (6.4-8.9)
[2020-08-25] MEDS: Pantoprazole 40 MG VIAL IVP SCH (06:28)
[2020-08-25] MEDS ORDERED: Potassium Phosphate 44 MEQ in 0.9 % Sodium Chloride 250 ML IVPB ONE (06:33)
[2020-08-25] MEDS ORDERED: Potassium Chloride Elixir 20 MEQ/15 ML UDC PO ONE (07:35)
[2020-08-25] MEDS: Potassium Chloride Elixir 20 MEQ/15 ML UDC GTUBE SCH ×3 (08:13→20:03)
[2020-08-25] MEDS: Chlorhexidine Rinse 15 ML MOUTHWASH MM SCH ×2 (08:13→20:03)
[2020-08-25] MEDS: Levothyroxine Sodium 100 MCG VIAL IVP SCH (08:13)
[2020-08-25] MEDS: Dexamethasone 4 MG/ML VIAL IVP SCH (08:14)
[2020-08-25] MEDS: *HR* Metoprolol 5 MG/5 ML VIAL IVP PRN (08:17)
[2020-08-25] MEDS: Budesonide/Formoterol 160/4.5 1 PUFF INH IH SCH ×2 (09:51→22:27)
[2020-08-25 10:51] LABS: Calcium 7.8 mg/dL (8.6-10.3); Potassium 3.8 mEq/L (3.5-5.1)
[2020-08-25] MEDS: Sodium Bicarbonate 150 MEQ in D5% in Water 1,000 ML IVC SCH ×2 (11:43→20:03)
[2020-08-25] MEDS: Dexmedetomidine HCl 400 MCG/100 ML MLS IVC SCH (11:43)
[2020-08-25] MEDS ORDERED: Insulin LISPRO 300 UNITS/3 ML VIAL SQ SCH ×3 (13:30→17:13)
[2020-08-25] MEDS ORDERED: Insulin DETEMIR 100 UNIT/ML X5UNITS SQ ONE (17:12)
[2020-08-25] MEDS ORDERED: *HR* Enoxaparin 40 MG/0.4 ML SYRINGE SQ ONE (17:36)
[2020-08-25] MEDS ORDERED: *HR* Enoxaparin 30 MG/0.3 ML SYRINGE SQ ONE (18:15)
[2020-08-25] MEDS: *HR* Metoprolol 5 MG/5 ML VIAL IVP SCH ×2 (18:18→23:59)
[2020-08-25] MEDS ORDERED: Insulin DETEMIR 100 UNIT/ML X5UNITS SQ SCH (21:00)
[2020-08-25] MEDS: Insulin Human Regular 100 UNIT in 0.9 % Sodium Chloride 100 ML IVC SCH (22:54)
[2020-08-26] MEDS: Dexmedetomidine HCl 400 MCG/100 ML MLS IVC SCH ×2 (00:55→15:40)
[2020-08-26] MEDS: Insulin Human Regular 100 UNIT in 0.9 % Sodium Chloride 100 ML IVC SCH ×2 (04:14→15:23)
[2020-08-26] MEDS: Artificial Tears SOLN 15 ML BOTTLE BOTH EYES SCH ×5 (04:16→20:11)
[2020-08-26 04:29] LABS: ABG Base Excess 6 mEq/L (-2 to 3); ABG HCO3 33 mEq/L (21-27); ABG Oxygen Saturation 82 % (95-98); ABG PCO2 63 mmHg (35-45); ABG PH 7.32 pH Units (7.32-7.45); ABG PO2 52 mmHg (85-104); ABG TCO2 35 mEq/L (20-26); Blood Gas Modality AF; Blood Gas VT 450 cc
[2020-08-26 04:36] LABS: INR 1.2; Prothrombin Time 13.3 Seconds (9.4-12.1)
[2020-08-26 04:41] LABS: Lymphocytes % 2.6 %; Mean Corpuscular Volume 98.5 fL (83.0-100.0)
[2020-08-26 04:43] LABS: Hematocrit 26.7 % (37.5-50.1); Hemoglobin 8.2 g/dL (12.9-16.9); Immature Platelets 6.9 % (1.1-6.1); Lymphocytes # 0.2 K/mcL (0.6-4.6); Mean Corpuscular HGB Conc 30.7 g/dL (31.6-35.5); Mean Corpuscular Hemoglobin 30.3 pg (28.0-33.3); Mean Platelet Volume 10.8 fL (9.4-12.4); Monocytes # 0.1 K/mcL (0.0-1.3); Monocytes % 1.5 %; Neutrophils # 6.5 K/mcL (1.6-8.9); Red Blood Count 2.71 M/mcL (4.19-5.50); Red Cell Distribution Width 16.4 % (11.5-14.5); Segmented Neutrophils % 94.9 %; White Blood Count 6.8 K/mcL (4.3-11.1)
[2020-08-26 04:44] LABS: Albumin/Globulin Ratio 1.6 (1.1-2.2); Bilirubin,Direct 0.1 mg/dL (0.0-0.2); Bilirubin,Indirect 0.4 mg/dL (0.0-1.0); Bilirubin,Total 0.5 mg/dL (0.3-1.0); Globulin 1.9 g/dL (2.4-3.5); Magnesium 1.7 mg/dL (1.6-2.6); Phosphorous 2.5 mg/dL (2.7-4.5); Total Protein 4.9 g/dL (6.4-8.9)
[2020-08-26 04:49] LABS: Albumin/Globulin Ratio 1.5 (1.1-2.2); Bilirubin,Total 0.5 mg/dL (0.3-1.0); Calcium 7.5 mg/dL (8.6-10.3); Potassium 3.8 mEq/L (3.5-5.1)
[2020-08-26 04:57] LABS: Platelet Count 84 K/mcL (140-400)
[2020-08-26] MEDS: FentaNYL (PF) 1,000 MCG/100 ML IV.SOLN IVC SCH ×2 (05:43→15:43)
[2020-08-26] MEDS: *HR* Metoprolol 5 MG/5 ML VIAL IVP SCH ×4 (05:56→23:54)
[2020-08-26] MEDS: Pantoprazole 40 MG VIAL IVP SCH (05:57)
[2020-08-26 06:53] LABS: Platelet Estimate Slight Decrease (Normal)
[2020-08-26] MEDS: Potassium Chloride Elixir 20 MEQ/15 ML UDC GTUBE SCH ×3 (07:40→20:12)
[2020-08-26] MEDS: Chlorhexidine Rinse 15 ML MOUTHWASH MM SCH ×2 (07:40→20:11)
[2020-08-26] MEDS: Dexamethasone 4 MG/ML VIAL IVP SCH (07:40)
[2020-08-26] MEDS: Piperacillin/Tazobactam 3.375 GM in 0.9 % Sodium Chloride Mini Bag 100 ML IVPB SCH ×2 (07:41→15:05)
[2020-08-26 09:00] LABS: Calcium 7.1 mg/dL (8.6-10.3); Potassium 4.5 mEq/L (3.5-5.1)
[2020-08-26] MEDS: Midazolam HCl 50 MG/100 ML IV.SOLN IVC SCH (09:32)
[2020-08-26] MEDS: Budesonide/Formoterol 160/4.5 1 PUFF INH IH SCH ×2 (10:13→19:44)
[2020-08-26 11:50] LABS: VBG HCO3 36 mEq/L (21-27); VBG PCO2 73 mmHg (41-51); VBG PO2 28 mmHg (25-50)
[2020-08-26] MEDS: *HR* Enoxaparin 30 MG/0.3 ML SYRINGE SQ SCH (17:02)
[2020-08-26] MEDS ORDERED: Furosemide 40 MG/4 ML VIAL IVP ONE (18:00)
[2020-08-26] MEDS ORDERED: *HR* Metoprolol 5 MG/5 ML VIAL IVP ONE (22:57)
[2020-08-26] MEDS: *HR* Dextrose 50 % in Water (Vial) 50 ML VIAL IVP PRN (23:10)
[2020-08-27] MEDS: Artificial Tears SOLN 15 ML BOTTLE BOTH EYES SCH ×7 (00:01→23:30)
[2020-08-27] MEDS: Piperacillin/Tazobactam 3.375 GM in 0.9 % Sodium Chloride Mini Bag 100 ML IVPB SCH ×4 (00:01→23:29)
[2020-08-27] MEDS: FentaNYL (PF) 1,000 MCG/100 ML IV.SOLN IVC SCH ×2 (01:43→05:39)
[2020-08-27] MEDS: *HR* Dextrose 50 % in Water (Vial) 50 ML VIAL IVP PRN (02:33)
[2020-08-27] MEDS ORDERED: *HR* Midazolam HCl 2 MG/2 ML VIAL IVP ONE (03:03)
[2020-08-27] MEDS: Dexmedetomidine HCl 400 MCG/100 ML MLS IVC SCH ×4 (03:30→19:59)
[2020-08-27] MEDS: Insulin LISPRO 300 UNITS/3 ML VIAL SQ SCH ×5 (04:35→21:45)
[2020-08-27] MEDS: Midazolam HCl 50 MG/100 ML IV.SOLN IVC SCH ×2 (04:36→23:36)
[2020-08-27 04:45] LABS: Basophils % 0.1 %; Hemoglobin 8.4 g/dL (12.9-16.9); Immature Granulocytes % 1.6 % (0-4); Mean Corpuscular Volume 97.9 fL (83.0-100.0)
[2020-08-27 04:47] LABS: Hematocrit 27.5 % (37.5-50.1); Immature Platelets 8.3 % (1.1-6.1); Lymphocytes # 0.4 K/mcL (0.6-4.6); Mean Corpuscular HGB Conc 30.5 g/dL (31.6-35.5); Mean Corpuscular Hemoglobin 29.9 pg (28.0-33.3); Monocytes # 0.1 K/mcL (0.0-1.3); Monocytes % 1.6 %; Neutrophils # 8.1 K/mcL (1.6-8.9); Red Blood Count 2.81 M/mcL (4.19-5.50); Red Cell Distribution Width 16.2 % (11.5-14.5); Segmented Neutrophils % 92.7 %; White Blood Count 8.7 K/mcL (4.3-11.1)
[2020-08-27 04:51] LABS: Platelet Count 81 K/mcL (140-400)
[2020-08-27 04:55] LABS: INR 1.2; Prothrombin Time 13.9 Seconds (9.4-12.1)
[2020-08-27 05:00] LABS: VBG Ionized Calcium 1.07 mmol/L (1.15-1.35)
[2020-08-27 05:03] LABS: Albumin 2.8 g/dL (3.5-5.7); Albumin/Globulin Ratio 1.3 (1.1-2.2); Bilirubin,Direct 0.2 mg/dL (0.0-0.2); Bilirubin,Indirect 0.3 mg/dL (0.0-1.0); Bilirubin,Total 0.5 mg/dL (0.3-1.0); Globulin 2.1 g/dL (2.4-3.5); Magnesium 1.9 mg/dL (1.6-2.6); Phosphorous 2.1 mg/dL (2.7-4.5); Total Protein 4.9 g/dL (6.4-8.9)
[2020-08-27] MEDS: Pantoprazole 40 MG VIAL IVP SCH (05:52)
[2020-08-27 06:10] LABS: Calcium 7.5 mg/dL (8.6-10.3)
[2020-08-27 06:15] LABS: ABG Base Excess 7 mEq/L (-2 to 3); ABG HCO3 33 mEq/L (21-27); ABG Oxygen Saturation 100 % (95-98); ABG PCO2 54 mmHg (35-45); ABG PH 7.39 pH Units (7.32-7.45); ABG PO2 218 mmHg (85-104); ABG TCO2 35 mEq/L (20-26); Blood Gas VT 500 cc
[2020-08-27] MEDS: Chlorhexidine Rinse 15 ML MOUTHWASH MM SCH ×2 (09:48→20:29)
[2020-08-27] MEDS: Dexamethasone 4 MG/ML VIAL IVP SCH (09:49)
[2020-08-27] MEDS: Potassium Chloride Elixir 20 MEQ/15 ML UDC GTUBE SCH ×3 (09:52→20:29)
[2020-08-27] MEDS ORDERED: Furosemide 40 MG/4 ML VIAL IVP ONE (09:57)
[2020-08-27] MEDS: FentaNYL (PF) 2,500 MCG/50 ML IV.SOLN IVC SCH ×2 (10:52→23:34)
[2020-08-27] MEDS: Budesonide/Formoterol 160/4.5 1 PUFF INH IH SCH ×2 (11:02→20:13)
[2020-08-27] MEDS: Calcium Gluconate 1gm/50mL 1 GM/50 ML BAG IVPB PRN ×2 (11:09→12:05)
[2020-08-27] MEDS ORDERED: 0.9 % Sodium Chloride 1,000 ML PRIME SCH ×2 (12:30→19:45)
[2020-08-27] MEDS ORDERED: *HR* Heparin 10,000 UNIT/10 ML VIAL IV PRN (12:30)
[2020-08-27] MEDS ORDERED: 0.9 % Sodium Chloride 250 ML IVC PRN ×2 (12:30→16:19)
[2020-08-27] MEDS ORDERED: Heparin 1,000 UNITS/500 mL 500 ML ONE (13:35)
[2020-08-27] MEDS ORDERED: *HR* Heparin 5,000 UNIT/ML VIAL ONE (14:43)
[2020-08-27 15:14] LABS: VBG Ionized Calcium 1.09 mmol/L (1.15-1.35)
[2020-08-27 15:24] LABS: Magnesium 2.5 mg/dL (1.6-2.6); Phosphorous 3.4 mg/dL (2.7-4.5); Potassium 5.4 mEq/L (3.5-5.1)
[2020-08-27 15:39] LABS: Hepatitis B Surface Antibody < 3.10 mIU/mL
[2020-08-27 15:50] LABS: Hepatitis B Surface Antigen Nonreactive (Nonreactive)
[2020-08-27] MEDS: *HR* Enoxaparin 30 MG/0.3 ML SYRINGE SQ SCH (18:31)
[2020-08-27] MEDS ORDERED: *HR* Heparin 5,000 UNIT/ML VIAL IVP PRN (19:32)
[2020-08-27] MEDS ORDERED: *HR* Alteplase (Cathflo) 2 MG VIAL IVP PRN (19:32)
[2020-08-27] MEDS ORDERED: 0.9 % Sodium Chloride 1,000 ML PRIME ONE ×2 (19:32)
[2020-08-27] MEDS: PrismaSATE BGK 4/2.5 5,000 ML CRRT SCH ×2 (21:54)
[2020-08-28] MEDS ORDERED: *HR* Heparin 10,000 UNIT/10 ML VIAL IV PRN (00:01)
[2020-08-28] MEDS: Insulin LISPRO 300 UNITS/3 ML VIAL SQ SCH ×6 (00:25→20:31)
[2020-08-28] MEDS: Dexmedetomidine HCl 400 MCG/100 ML MLS IVC SCH ×5 (01:38→22:43)
[2020-08-28] MEDS: PrismaSATE BGK 4/2.5 5,000 ML CRRT SCH ×10 (02:45→20:32)
[2020-08-28] MEDS: Artificial Tears SOLN 15 ML BOTTLE BOTH EYES SCH ×5 (04:00→20:30)
[2020-08-28 04:44] LABS: ABG Base Excess 4 mEq/L (-2 to 3); ABG HCO3 30 mEq/L (21-27); ABG Oxygen Saturation 94 % (95-98); ABG PCO2 58 mmHg (35-45); ABG PH 7.33 pH Units (7.32-7.45); ABG PO2 77 mmHg (85-104); ABG TCO2 32 mEq/L (20-26); Blood Gas VT 500 cc
[2020-08-28] MEDS: *HR* Metoprolol 5 MG/5 ML VIAL IVP SCH ×4 (05:11→23:09)
[2020-08-28] MEDS: Pantoprazole 40 MG VIAL IVP SCH (05:13)
[2020-08-28 06:11] LABS: BUN/Creatinine Ratio 31 (6-26); Blood Urea Nitrogen 40 mg/dL (8-23); Calcium 7.6 mg/dL (8.6-10.3); Carbon Dioxide 31 mEq/L (23-29); Chloride 106 mEq/L (98-107); Glucose 177 mg/dL (70-105); Magnesium 2.3 mg/dL (1.6-2.6); Osmolality,Calculated 306 (280-300); Phosphorous 2.9 mg/dL (2.7-4.5); Potassium 4.5 mEq/L (3.5-5.1); Sodium 141 mEq/L (136-145); eGFR For African Americans > 60 (> 60); eGFR For Non-African Americans 53 (> 60)
[2020-08-28 06:14] LABS: INR 1.1; Prothrombin Time 12.3 Seconds (9.4-12.1)
[2020-08-28 06:29] LABS: VBG Ionized Calcium 1.07 mmol/L (1.15-1.35)
[2020-08-28 06:37] LABS: Basophils % 0.1 %; Mean Corpuscular Volume 98.6 fL (83.0-100.0); Red Cell Distribution Width 15.9 % (11.5-14.5)
[2020-08-28 06:39] LABS: Eosinophils # 0.1 K/mcL (0.0-0.6); Eosinophils % 1.6 %; Hemoglobin 8.5 g/dL (12.9-16.9); Immature Platelets 12.8 % (1.1-6.1); Lymphocytes # 0.5 K/mcL (0.6-4.6); Lymphocytes % 6.9 %; Mean Corpuscular HGB Conc 30.4 g/dL (31.6-35.5); Mean Corpuscular Hemoglobin 29.9 pg (28.0-33.3); Mean Platelet Volume 11.7 fL (9.4-12.4); Monocytes # 0.1 K/mcL (0.0-1.3); Monocytes % 1.6 %; Neutrophils # 5.8 K/mcL (1.6-8.9); Red Blood Count 2.84 M/mcL (4.19-5.50); Segmented Neutrophils % 86.8 %; White Blood Count 6.7 K/mcL (4.3-11.1)
[2020-08-28 06:48] LABS: Platelet Count 74 K/mcL (140-400)
[2020-08-28] MEDS: Chlorhexidine Rinse 15 ML MOUTHWASH MM SCH ×2 (07:52→20:30)
[2020-08-28] MEDS: Dexamethasone 4 MG/ML VIAL IVP SCH (07:52)
[2020-08-28] MEDS: Piperacillin/Tazobactam 3.375 GM in 0.9 % Sodium Chloride Mini Bag 100 ML IVPB SCH ×3 (07:52→23:09)
[2020-08-28] MEDS: Potassium Chloride Elixir 20 MEQ/15 ML UDC GTUBE SCH (07:53)
[2020-08-28] MEDS: Norepinephrine 4 MG/254 ML IV.SOLN IVC SCH (07:57)
[2020-08-28] MEDS: Calcium Gluconate 1gm/50mL 1 GM/50 ML BAG IVPB PRN (09:20)
[2020-08-28] MEDS: *HR* Enoxaparin 30 MG/0.3 ML SYRINGE SQ SCH (09:54)
[2020-08-28] MEDS: Budesonide/Formoterol 160/4.5 1 PUFF INH IH SCH ×2 (10:11→22:23)
[2020-08-28] MEDS: FentaNYL (PF) 2,500 MCG/50 ML IV.SOLN IVC SCH (11:05)
[2020-08-28 11:41] LABS: VBG Ionized Calcium 1.13 mmol/L (1.15-1.35)
[2020-08-28] MEDS: DilTIAZem 50 MG/50 ML IV.SOLN IVC SCH (21:08)
[2020-08-28] MEDS: Midazolam HCl 50 MG/100 ML IV.SOLN IVC SCH (22:13)
[2020-08-29] MEDS: Insulin LISPRO 300 UNITS/3 ML VIAL SQ SCH ×6 (00:29→20:11)
[2020-08-29] MEDS: Artificial Tears SOLN 15 ML BOTTLE BOTH EYES SCH ×7 (00:30→23:13)
[2020-08-29] MEDS: PrismaSATE BGK 4/2.5 5,000 ML CRRT SCH ×12 (00:32→23:04)
[2020-08-29 04:19] LABS: VBG Ionized Calcium 1.06 mmol/L (1.15-1.35)
[2020-08-29 04:21] LABS: Hemoglobin 8.7 g/dL (12.9-16.9); Red Cell Distribution Width 15.9 % (11.5-14.5)
[2020-08-29 04:23] LABS: Basophils # 0.1 K/mcL (0.0-0.2); Basophils % 0.6 %; Eosinophils # 0.2 K/mcL (0.0-0.6); Eosinophils % 1.9 %; Hematocrit 29.4 % (37.5-50.1); Immature Granulocytes % 3.5 % (0-4); Immature Platelets 15.2 % (1.1-6.1); Lymphocytes # 0.9 K/mcL (0.6-4.6); Mean Corpuscular HGB Conc 29.6 g/dL (31.6-35.5); Mean Corpuscular Hemoglobin 29.7 pg (28.0-33.3); Mean Corpuscular Volume 100.3 fL (83.0-100.0); Mean Platelet Volume 12.1 fL (9.4-12.4); Monocytes # 0.2 K/mcL (0.0-1.3); Monocytes % 2.4 %; Red Blood Count 2.93 M/mcL (4.19-5.50); Segmented Neutrophils % 81.6 %; White Blood Count 8.6 K/mcL (4.3-11.1)
[2020-08-29 04:34] LABS: Platelet Count 72 K/mcL (140-400)
[2020-08-29 04:36] LABS: Alanine Aminotransferase 22 Units/L (7-52); Albumin 2.9 g/dL (3.5-5.7); Albumin/Globulin Ratio 1.3 (1.1-2.2); Alkaline Phosphatase 56 Units/L (34-104); Aspartate Amino Transferase 19 Units/L (13-39); BUN/Creatinine Ratio 21 (6-26); Bilirubin,Total 0.5 mg/dL (0.3-1.0); Blood Urea Nitrogen 25 mg/dL (8-23); Calcium 7.3 mg/dL (8.6-10.3); Carbon Dioxide 29 mEq/L (23-29); Chloride 105 mEq/L (98-107); Globulin 2.3 g/dL (2.4-3.5); Glucose 177 mg/dL (70-105); Magnesium 2.3 mg/dL (1.6-2.6); Osmolality,Calculated 293 (280-300); Phosphorous 2.7 mg/dL (2.7-4.5); Potassium 4.6 mEq/L (3.5-5.1); Sodium 137 mEq/L (136-145); Total Protein 5.2 g/dL (6.4-8.9); eGFR For African Americans > 60 (> 60); eGFR For Non-African Americans 58 (> 60)
[2020-08-29] MEDS: Dexmedetomidine HCl 400 MCG/100 ML MLS IVC SCH ×4 (04:42→22:00)
[2020-08-29] MEDS: *HR* Metoprolol 5 MG/5 ML VIAL IVP SCH ×4 (04:43→23:13)
[2020-08-29 04:52] LABS: ABG Base Excess 2 mEq/L (-2 to 3); ABG HCO3 29 mEq/L (21-27); ABG Oxygen Saturation 87 % (95-98); ABG PCO2 58 mmHg (35-45); ABG PH 7.31 pH Units (7.32-7.45); ABG PO2 59 mmHg (85-104); ABG TCO2 31 mEq/L (20-26); Blood Gas Modality ASSIST CONTROL; Blood Gas VT 500 cc
[2020-08-29] MEDS: Pantoprazole 40 MG VIAL IVP SCH (05:14)
[2020-08-29] MEDS: Calcium Gluconate 1gm/50mL 1 GM/50 ML BAG IVPB PRN (05:14)
[2020-08-29] MEDS: Sodium Bicarbonate 150 MEQ in D5% in Water 1,000 ML IVC SCH (07:22)
[2020-08-29] MEDS: Dexamethasone 4 MG/ML VIAL IVP SCH (07:39)
[2020-08-29] MEDS: Chlorhexidine Rinse 15 ML MOUTHWASH MM SCH ×2 (07:40→20:12)
[2020-08-29] MEDS: Piperacillin/Tazobactam 3.375 GM in 0.9 % Sodium Chloride Mini Bag 100 ML IVPB SCH ×3 (07:40→23:13)
[2020-08-29] MEDS: Norepinephrine 4 MG/254 ML IV.SOLN IVC SCH (07:41)
[2020-08-29] MEDS: Budesonide/Formoterol 160/4.5 1 PUFF INH IH SCH ×2 (11:38→22:16)
[2020-08-29] MEDS ORDERED: 0.9 % Sodium Chloride 250 ML ONE (12:01)
[2020-08-29] MEDS: FentaNYL (PF) 2,500 MCG/50 ML IV.SOLN IVC SCH ×2 (12:30)
[2020-08-29] MEDS: Midazolam HCl 50 MG/100 ML IV.SOLN IVC SCH (15:30)
[2020-08-29] MEDS: *HR* Enoxaparin 30 MG/0.3 ML SYRINGE SQ SCH (17:47)
[2020-08-29] MEDS: DilTIAZem 50 MG/50 ML IV.SOLN IVC SCH (19:13)
[2020-08-30] MEDS: Insulin LISPRO 300 UNITS/3 ML VIAL SQ SCH ×7 (00:05→23:37)
[2020-08-30] MEDS: FentaNYL (PF) 2,500 MCG/50 ML IV.SOLN IVC SCH ×3 (01:14→20:19)
[2020-08-30] MEDS: Norepinephrine 4 MG/254 ML IV.SOLN IVC SCH ×2 (01:43→18:53)
[2020-08-30] MEDS: Dexmedetomidine HCl 400 MCG/100 ML MLS IVC SCH ×4 (03:06→18:53)
[2020-08-30] MEDS: PrismaSATE BGK 4/2.5 5,000 ML CRRT SCH ×6 (04:03→13:22)
[2020-08-30] MEDS: Artificial Tears SOLN 15 ML BOTTLE BOTH EYES SCH ×6 (04:03→23:37)
[2020-08-30 04:14] LABS: Mean Corpuscular HGB Conc 29.8 g/dL (31.6-35.5)
[2020-08-30 04:15] LABS: Hematocrit 29.5 % (37.5-50.1); Hemoglobin 8.8 g/dL (12.9-16.9); Immature Granulocytes % 3.2 % (0-4); Immature Platelets 14.8 % (1.1-6.1); Lymphocytes % 9.1 %; Mean Corpuscular Hemoglobin 30.4 pg (28.0-33.3); Mean Corpuscular Volume 102.1 fL (83.0-100.0); Mean Platelet Volume 11.8 fL (9.4-12.4); Monocytes % 2.9 %; Red Blood Count 2.89 M/mcL (4.19-5.50); Red Cell Distribution Width 15.6 % (11.5-14.5); White Blood Count 8.4 K/mcL (4.3-11.1)
[2020-08-30 04:16] LABS: Basophils # 0.1 K/mcL (0.0-0.2); Basophils % 0.6 %; Eosinophils # 0.2 K/mcL (0.0-0.6); Eosinophils % 2.2 %; Lymphocytes # 0.8 K/mcL (0.6-4.6); Monocytes # 0.2 K/mcL (0.0-1.3); Neutrophils # 6.9 K/mcL (1.6-8.9)
[2020-08-30 04:20] LABS: Platelet Count 81 K/mcL (140-400)
[2020-08-30 04:35] LABS: Alanine Aminotransferase 21 Units/L (7-52); Albumin/Globulin Ratio 1.3 (1.1-2.2); Alkaline Phosphatase 60 Units/L (34-104); Aspartate Amino Transferase 19 Units/L (13-39); BUN/Creatinine Ratio 17 (6-26); Bilirubin,Total 0.5 mg/dL (0.3-1.0); Blood Urea Nitrogen 20 mg/dL (8-23); Calcium 7.5 mg/dL (8.6-10.3); Carbon Dioxide 30 mEq/L (23-29); Chloride 103 mEq/L (98-107); Globulin 2.4 g/dL (2.4-3.5); Glucose 206 mg/dL (70-105); Magnesium 2.3 mg/dL (1.6-2.6); Osmolality,Calculated 287 (280-300); Phosphorous 2.5 mg/dL (2.7-4.5); Potassium 4.8 mEq/L (3.5-5.1); Sodium 134 mEq/L (136-145); Total Protein 5.4 g/dL (6.4-8.9); eGFR For African Americans > 60 (> 60); eGFR For Non-African Americans > 60 (> 60)
[2020-08-30 04:38] LABS: VBG Ionized Calcium 1.06 mmol/L (1.15-1.35)
[2020-08-30 04:57] LABS: ABG Base Excess 1 mEq/L (-2 to 3); ABG HCO3 29 mEq/L (21-27); ABG Oxygen Saturation 89 % (95-98); ABG PCO2 60 mmHg (35-45); ABG PO2 63 mmHg (85-104); ABG TCO2 31 mEq/L (20-26); Blood Gas Modality ASSIST CONTROL; Blood Gas VT 500 cc
[2020-08-30] MEDS: Calcium Gluconate 1gm/50mL 1 GM/50 ML BAG IVPB PRN (05:25)
[2020-08-30] MEDS: *HR* Metoprolol 5 MG/5 ML VIAL IVP SCH ×4 (05:25→23:37)
[2020-08-30] MEDS: Pantoprazole 40 MG VIAL IVP SCH (05:25)
[2020-08-30] MEDS: Midazolam HCl 50 MG/100 ML IV.SOLN IVC SCH ×2 (06:53→21:05)
[2020-08-30] MEDS: Dexamethasone 4 MG/ML VIAL IVP SCH (07:52)
[2020-08-30] MEDS: Piperacillin/Tazobactam 3.375 GM in 0.9 % Sodium Chloride Mini Bag 100 ML IVPB SCH (07:52)
[2020-08-30] MEDS: Chlorhexidine Rinse 15 ML MOUTHWASH MM SCH ×2 (07:52→19:51)
[2020-08-30] MEDS: Levothyroxine Sodium 100 MCG VIAL IVP SCH (07:52)
[2020-08-30] MEDS: Budesonide/Formoterol 160/4.5 1 PUFF INH IH SCH ×2 (10:24→21:08)
[2020-08-30] MEDS ORDERED: 0.9 % Sodium Chloride 500 ML ONE (14:41)
[2020-08-30] MEDS ORDERED: *HR* Heparin 5,000 UNIT/ML VIAL ONE (14:42)
[2020-08-30] MEDS: *HR* Enoxaparin 30 MG/0.3 ML SYRINGE SQ SCH (18:04)
[2020-08-30] MEDS: DilTIAZem 50 MG/50 ML IV.SOLN IVC SCH (19:52)
[2020-08-31] MEDS: Dexmedetomidine HCl 400 MCG/100 ML MLS IVC SCH ×5 (00:51→19:08)
[2020-08-31] MEDS: Artificial Tears SOLN 15 ML BOTTLE BOTH EYES SCH ×6 (03:35→23:39)
[2020-08-31] MEDS: Insulin LISPRO 300 UNITS/3 ML VIAL SQ SCH ×6 (03:35→23:39)
[2020-08-31 03:56] LABS: Hemoglobin 8.4 g/dL (12.9-16.9); Nucleated Red Blood Cells 0.3 /100 WBC (0); Red Cell Distribution Width 15.9 % (11.5-14.5)
[2020-08-31 03:58] LABS: Basophils # 0.1 K/mcL (0.0-0.2); Basophils % 0.6 %; Eosinophils # 0.2 K/mcL (0.0-0.6); Eosinophils % 2.3 %; Hematocrit 28.5 % (37.5-50.1); Immature Granulocytes % 4.7 % (0-4); Immature Platelets 15.1 % (1.1-6.1); Lymphocytes # 0.8 K/mcL (0.6-4.6); Lymphocytes % 9.3 %; Mean Corpuscular HGB Conc 29.5 g/dL (31.6-35.5); Mean Corpuscular Hemoglobin 29.9 pg (28.0-33.3); Mean Corpuscular Volume 101.4 fL (83.0-100.0); Mean Platelet Volume 12.1 fL (9.4-12.4); Monocytes # 0.3 K/mcL (0.0-1.3); Red Blood Count 2.81 M/mcL (4.19-5.50); Segmented Neutrophils % 80.1 %; White Blood Count 8.7 K/mcL (4.3-11.1)
[2020-08-31 03:59] LABS: Platelet Count 94 K/mcL (140-400)
[2020-08-31 04:07] LABS: VBG Ionized Calcium 1.11 mmol/L (1.15-1.35)
[2020-08-31 04:11] LABS: Albumin/Globulin Ratio 1.2 (1.1-2.2); Bilirubin,Total 0.4 mg/dL (0.3-1.0); Calcium 7.8 mg/dL (8.6-10.3); Globulin 2.6 g/dL (2.4-3.5); Magnesium 2.4 mg/dL (1.6-2.6); Phosphorous 3.3 mg/dL (2.7-4.5); Potassium 5.7 mEq/L (3.5-5.1); Total Protein 5.6 g/dL (6.4-8.9)
[2020-08-31 04:33] LABS: ABG Base Excess -1 mEq/L (-2 to 3); ABG HCO3 26 mEq/L (21-27); ABG Oxygen Saturation 90 % (95-98); ABG PCO2 54 mmHg (35-45); ABG PH 7.29 pH Units (7.32-7.45); ABG PO2 66 mmHg (85-104); ABG TCO2 28 mEq/L (20-26); Blood Gas Modality ASSIST CONTROL; Blood Gas VT 500 cc
[2020-08-31] MEDS: Pantoprazole 40 MG VIAL IVP SCH (05:34)
[2020-08-31] MEDS: *HR* Metoprolol 5 MG/5 ML VIAL IVP SCH ×4 (05:34→23:39)
[2020-08-31] MEDS ORDERED: 0.9 % Sodium Chloride 250 ML IVC PRN (07:23)
[2020-08-31] MEDS ORDERED: *HR* Heparin 10,000 UNIT/10 ML VIAL IV PRN (07:38)
[2020-08-31] MEDS: Dexamethasone 4 MG/ML VIAL IVP SCH (07:47)
[2020-08-31] MEDS: Chlorhexidine Rinse 15 ML MOUTHWASH MM SCH ×2 (07:49→19:50)
[2020-08-31] MEDS: Budesonide/Formoterol 160/4.5 1 PUFF INH IH SCH ×2 (07:56→22:02)
[2020-08-31] MEDS: FentaNYL (PF) 2,500 MCG/50 ML IV.SOLN IVC SCH ×2 (08:17→21:15)
[2020-08-31] MEDS: Midazolam HCl 50 MG/100 ML IV.SOLN IVC SCH (11:36)
[2020-08-31] MEDS: *HR* Heparin 5,000 UNIT/ML VIAL SQ SCH ×2 (17:21→22:15)
[2020-08-31] MEDS: Norepinephrine 4 MG/254 ML IV.SOLN IVC SCH (20:00)
[2020-08-31] MEDS ORDERED: polyethylene glycoL 3350 17 GM POWD.PACK PO PRN (22:32)
[2020-08-31] MEDS: DilTIAZem 50 MG/50 ML IV.SOLN IVC SCH (22:36)
[2020-09-01] MEDS: Artificial Tears SOLN 15 ML BOTTLE BOTH EYES SCH ×6 (03:30→23:51)
[2020-09-01 03:36] LABS: Basophils % 0.3 %; Eosinophils # 0.2 K/mcL (0.0-0.6); Eosinophils % 2.2 %; Hematocrit 25.8 % (37.5-50.1); Hemoglobin 7.7 g/dL (12.9-16.9); Immature Granulocytes % 4.2 % (0-4); Lymphocytes # 0.7 K/mcL (0.6-4.6); Lymphocytes % 7.9 %; Mean Corpuscular HGB Conc 29.8 g/dL (31.6-35.5); Mean Corpuscular Hemoglobin 30.7 pg (28.0-33.3); Mean Corpuscular Volume 102.8 fL (83.0-100.0); Mean Platelet Volume 11.3 fL (9.4-12.4); Monocytes # 0.4 K/mcL (0.0-1.3); Neutrophils # 7.3 K/mcL (1.6-8.9); Nucleated Red Blood Cells 0.2 /100 WBC (0); Platelet Count 91 K/mcL (140-400); Red Blood Count 2.51 M/mcL (4.19-5.50); Red Cell Distribution Width 15.9 % (11.5-14.5); Segmented Neutrophils % 81.4 %
[2020-09-01 03:54] LABS: VBG Ionized Calcium 1.13 mmol/L (1.15-1.35)
[2020-09-01 03:56] LABS: Albumin/Globulin Ratio 1.1 (1.1-2.2); Bilirubin,Direct 0.1 mg/dL (0.0-0.2); Bilirubin,Indirect 0.3 mg/dL (0.0-1.0); Bilirubin,Total 0.4 mg/dL (0.3-1.0); Globulin 2.8 g/dL (2.4-3.5); Magnesium 2.2 mg/dL (1.6-2.6); Phosphorous 4.4 mg/dL (2.7-4.5); Potassium 5.8 mEq/L (3.5-5.1); Total Protein 5.8 g/dL (6.4-8.9)
[2020-09-01 04:23] LABS: ABG Base Excess 3 mEq/L (-2 to 3); ABG HCO3 30 mEq/L (21-27); ABG Oxygen Saturation 75 % (95-98); ABG PCO2 59 mmHg (35-45); ABG PH 7.31 pH Units (7.32-7.45); ABG PO2 45 mmHg (85-104); ABG TCO2 31 mEq/L (20-26); Blood Gas Modality AF; Blood Gas VT 500 cc
[2020-09-01] MEDS: Insulin LISPRO 300 UNITS/3 ML VIAL SQ SCH ×5 (04:42→21:16)
[2020-09-01] MEDS ORDERED: Calcium Gluconate 1gm/50mL 1 GM/50 ML BAG IVPB ONE (05:27)
[2020-09-01] MEDS: Pantoprazole 40 MG VIAL IVP SCH (05:32)
[2020-09-01] MEDS: *HR* Metoprolol 5 MG/5 ML VIAL IVP SCH ×4 (05:32→23:56)
[2020-09-01] MEDS: *HR* Heparin 5,000 UNIT/ML VIAL SQ SCH ×2 (05:32→13:59)
[2020-09-01] MEDS ORDERED: Albuterol Neb 7.5 MG, Sodium Chloride for inhalation 12 ML IH ONE (05:34)
[2020-09-01] MEDS ORDERED: 0.9 % Sodium Chloride 250 ML IVC PRN (07:08)
[2020-09-01] MEDS ORDERED: *HR* Heparin 10,000 UNIT/10 ML VIAL IV PRN (07:23)
[2020-09-01] MEDS: Chlorhexidine Rinse 15 ML MOUTHWASH MM SCH ×2 (07:29→20:49)
[2020-09-01] MEDS ORDERED: *HR* Heparin 10,000 UNIT/10 ML VIAL ONE (07:31)
[2020-09-01] MEDS: Dexmedetomidine HCl 400 MCG/100 ML MLS IVC SCH ×2 (08:44→22:47)
[2020-09-01] MEDS ORDERED: Dexamethasone 4 MG/ML VIAL IVP SCH (09:00)
[2020-09-01] MEDS: Budesonide/Formoterol 160/4.5 1 PUFF INH IH SCH ×2 (10:19→21:48)
[2020-09-01] MEDS: FentaNYL (PF) 2,500 MCG/50 ML IV.SOLN IVC SCH ×2 (10:50→22:47)
[2020-09-01] MEDS: Midazolam HCl 50 MG/100 ML IV.SOLN IVC SCH (10:51)
[2020-09-01 14:30] LABS: VBG Ionized Calcium 1.11 mmol/L (1.15-1.35)
[2020-09-01 14:39] LABS: Hematocrit 22.1 % (37.5-50.1); Hemoglobin 6.6 g/dL (12.9-16.9)
[2020-09-01 14:43] LABS: BUN/Creatinine Ratio 16 (6-26); Blood Urea Nitrogen 20 mg/dL (8-23); Calcium 7.6 mg/dL (8.6-10.3); Carbon Dioxide 31 mEq/L (23-29); Chloride 100 mEq/L (98-107); Glucose 135 mg/dL (70-105); Osmolality,Calculated 283 (280-300); Potassium 4.9 mEq/L (3.5-5.1); Sodium 134 mEq/L (136-145); eGFR For African Americans > 60 (> 60); eGFR For Non-African Americans 54 (> 60)
[2020-09-01] MEDS: Cefepime HCl 1,000 MG in Water for inj. (sterile) 10 ML IVP SCH (18:02)
[2020-09-01 20:36] LABS: Appearance of Body Fluid Cloudy (Clear); Volume of Body Fluid 25 mL
[2020-09-01] MEDS: DilTIAZem 50 MG/50 ML IV.SOLN IVC SCH (22:46)
[2020-09-02] MEDS: Insulin LISPRO 300 UNITS/3 ML VIAL SQ SCH ×6 (00:09→20:48)
[2020-09-02 03:55] LABS: Basophils % 0.3 %; Hematocrit 28.1 % (37.5-50.1); Lymphocytes % 8.3 %; Mean Platelet Volume 12.2 fL (9.4-12.4); Nucleated Red Blood Cells 0.3 /100 WBC (0)
[2020-09-02 03:57] LABS: Eosinophils # 0.1 K/mcL (0.0-0.6); Eosinophils % 1.8 %; Hemoglobin 8.7 g/dL (12.9-16.9); Immature Platelets 13.3 % (1.1-6.1); Lymphocytes # 0.6 K/mcL (0.6-4.6); Mean Corpuscular Hemoglobin 30.3 pg (28.0-33.3); Mean Corpuscular Volume 97.9 fL (83.0-100.0); Monocytes # 0.2 K/mcL (0.0-1.3); Monocytes % 3.4 %; Neutrophils # 5.5 K/mcL (1.6-8.9); Platelet Count 103 K/mcL (140-400); Red Blood Count 2.87 M/mcL (4.19-5.50); Red Cell Distribution Width 17.1 % (11.5-14.5); Segmented Neutrophils % 82.2 %; White Blood Count 6.7 K/mcL (4.3-11.1)
[2020-09-02 03:58] LABS: VBG Ionized Calcium 1.11 mmol/L (1.15-1.35)
[2020-09-02 04:14] LABS: ABG Base Excess 1 mEq/L (-2 to 3); ABG HCO3 28 mEq/L (21-27); ABG Oxygen Saturation 85 % (95-98); ABG PCO2 57 mmHg (35-45); ABG PO2 56 mmHg (85-104); ABG TCO2 30 mEq/L (20-26); Blood Gas Modality ASSIST CONTROL; Blood Gas VT 500 cc
[2020-09-02 04:16] LABS: Albumin 2.6 g/dL (3.5-5.7); Albumin/Globulin Ratio 0.9 (1.1-2.2); Bilirubin,Indirect 0.4 mg/dL (0.0-1.0); Bilirubin,Total 0.4 mg/dL (0.3-1.0); Globulin 2.6 g/dL (2.4-3.5); Globulin 2.8 g/dL (2.4-3.5); Phosphorous 5.2 mg/dL (2.7-4.5); Potassium 5.4 mEq/L (3.5-5.1); Total Protein 5.2 g/dL (6.4-8.9); Total Protein 5.4 g/dL (6.4-8.9)
[2020-09-02] MEDS: FentaNYL (PF) 2,500 MCG/50 ML IV.SOLN IVC SCH ×3 (05:00→16:53)
[2020-09-02] MEDS: Artificial Tears SOLN 15 ML BOTTLE BOTH EYES SCH ×6 (05:01→23:32)
[2020-09-02] MEDS: *HR* Metoprolol 5 MG/5 ML VIAL IVP SCH ×4 (05:20→23:32)
[2020-09-02] MEDS: *HR* Heparin 5,000 UNIT/ML VIAL SQ SCH ×2 (05:21→17:59)
[2020-09-02] MEDS: Pantoprazole 40 MG VIAL IVP SCH (05:21)
[2020-09-02] MEDS: Norepinephrine 4 MG/254 ML IV.SOLN IVC SCH (05:27)
[2020-09-02] MEDS: Chlorhexidine Rinse 15 ML MOUTHWASH MM SCH ×2 (07:49→20:48)
[2020-09-02] MEDS: Dexamethasone Sodium Phos/PF 10 MG/ML VIAL IVP SCH (07:50)
[2020-09-02] MEDS: Dexmedetomidine HCl 400 MCG/100 ML MLS IVC SCH ×2 (10:35→20:05)
[2020-09-02] MEDS: Budesonide/Formoterol 160/4.5 1 PUFF INH IH SCH ×2 (10:40→22:14)
[2020-09-02] MEDS: Midazolam HCl 50 MG/100 ML IV.SOLN IVC SCH (11:43)
[2020-09-02] MEDS: Cefepime HCl 1,000 MG in Water for inj. (sterile) 10 ML IVP SCH (17:58)
[2020-09-02 20:05] LABS: Basophils % 0.3 %; Eosinophils % 0.6 %; Hematocrit 28.3 % (37.5-50.1); Hemoglobin 8.7 g/dL (12.9-16.9); Immature Granulocytes % 3.3 % (0-4); Lymphocytes # 0.4 K/mcL (0.6-4.6); Lymphocytes % 4.8 %; Mean Corpuscular HGB Conc 30.7 g/dL (31.6-35.5); Mean Corpuscular Hemoglobin 29.8 pg (28.0-33.3); Mean Corpuscular Volume 96.9 fL (83.0-100.0); Monocytes # 0.2 K/mcL (0.0-1.3); Monocytes % 2.9 %; Neutrophils # 6.4 K/mcL (1.6-8.9); Nucleated Red Blood Cells 0.3 /100 WBC (0); Platelet Count 107 K/mcL (140-400); Red Blood Count 2.92 M/mcL (4.19-5.50); Red Cell Distribution Width 16.7 % (11.5-14.5); Segmented Neutrophils % 88.1 %; White Blood Count 7.3 K/mcL (4.3-11.1)
[2020-09-02] MEDS: DilTIAZem 50 MG/50 ML IV.SOLN IVC SCH (21:38)
[2020-09-03] MEDS: Insulin LISPRO 300 UNITS/3 ML VIAL SQ SCH ×6 (00:13→21:15)
[2020-09-03 04:37] LABS: VBG Ionized Calcium 1.13 mmol/L (1.15-1.35)
[2020-09-03] MEDS: Artificial Tears SOLN 15 ML BOTTLE BOTH EYES SCH ×5 (04:37→21:15)
[2020-09-03] MEDS: FentaNYL (PF) 2,500 MCG/50 ML IV.SOLN IVC SCH ×2 (04:38→23:20)
[2020-09-03 04:42] LABS: ABG Base Excess 0 mEq/L (-2 to 3); ABG HCO3 27 mEq/L (21-27); ABG Oxygen Saturation 87 % (95-98); ABG PCO2 56 mmHg (35-45); ABG PH 7.29 pH Units (7.32-7.45); ABG PO2 60 mmHg (85-104); ABG TCO2 29 mEq/L (20-26); Blood Gas Modality ASSIST CONTROL; Blood Gas VT 500 cc
[2020-09-03 04:43] LABS: Basophils % 0.4 %
[2020-09-03 04:45] LABS: Eosinophils # 0.1 K/mcL (0.0-0.6); Hematocrit 29.6 % (37.5-50.1); Immature Granulocytes % 3.5 % (0-4); Immature Platelets 15.4 % (1.1-6.1); Lymphocytes # 0.5 K/mcL (0.6-4.6); Lymphocytes % 7.4 %; Mean Corpuscular HGB Conc 30.4 g/dL (31.6-35.5); Mean Corpuscular Hemoglobin 29.9 pg (28.0-33.3); Mean Corpuscular Volume 98.3 fL (83.0-100.0); Mean Platelet Volume 11.9 fL (9.4-12.4); Monocytes # 0.2 K/mcL (0.0-1.3); Monocytes % 2.3 %; Nucleated Red Blood Cells 0.4 /100 WBC (0); Platelet Count 113 K/mcL (140-400); Red Blood Count 3.01 M/mcL (4.19-5.50); Red Cell Distribution Width 16.6 % (11.5-14.5); Segmented Neutrophils % 85.4 %; White Blood Count 7.1 K/mcL (4.3-11.1)
[2020-09-03 04:56] LABS: Neutrophils # 6.1 K/mcL (1.6-8.9)
[2020-09-03 05:04] LABS: Albumin 2.8 g/dL (3.5-5.7); Albumin/Globulin Ratio 0.9 (1.1-2.2); Bilirubin,Total 0.3 mg/dL (0.3-1.0); Calcium 8.3 mg/dL (8.6-10.3); Globulin 3.1 g/dL (2.4-3.5); Magnesium 2.2 mg/dL (1.6-2.6); Phosphorous 6.2 mg/dL (2.7-4.5); Total Protein 5.9 g/dL (6.4-8.9)
[2020-09-03] MEDS: *HR* Metoprolol 5 MG/5 ML VIAL IVP SCH ×3 (06:09→17:46)
[2020-09-03] MEDS: *HR* Heparin 5,000 UNIT/ML VIAL SQ SCH ×2 (06:09→16:57)
[2020-09-03] MEDS: Pantoprazole 40 MG VIAL IVP SCH (06:09)
[2020-09-03] MEDS ORDERED: 0.9 % Sodium Chloride 250 ML IVC PRN (07:12)
[2020-09-03] MEDS: Dexmedetomidine HCl 400 MCG/100 ML MLS IVC SCH ×2 (08:04→20:34)
[2020-09-03] MEDS: Levothyroxine Sodium 100 MCG VIAL IVP SCH (08:43)
[2020-09-03] MEDS: Chlorhexidine Rinse 15 ML MOUTHWASH MM SCH ×2 (08:43→21:16)
[2020-09-03] MEDS: Dexamethasone Sodium Phos/PF 10 MG/ML VIAL IVP SCH (08:44)
[2020-09-03] MEDS: Norepinephrine 4 MG/254 ML IV.SOLN IVC SCH (08:45)
[2020-09-03] MEDS: Budesonide/Formoterol 160/4.5 1 PUFF INH IH SCH ×2 (09:45→21:09)
[2020-09-03] MEDS: Cefepime HCl 1,000 MG in Water for inj. (sterile) 10 ML IVP SCH (16:58)
[2020-09-04] MEDS: *HR* Metoprolol 5 MG/5 ML VIAL IVP SCH ×3 (00:33→11:22)
[2020-09-04] MEDS: Artificial Tears SOLN 15 ML BOTTLE BOTH EYES SCH ×4 (00:34→11:22)
[2020-09-04] MEDS: Insulin LISPRO 300 UNITS/3 ML VIAL SQ SCH ×4 (00:34→12:17)
[2020-09-04] MEDS ORDERED: *HR* Midazolam HCl 5 MG/5 ML VIAL IVP ONE ×3 (02:38→05:01)
[2020-09-04 04:52] LABS: ABG Base Excess 1 mEq/L (-2 to 3); ABG HCO3 29 mEq/L (21-27); ABG Oxygen Saturation 59 % (95-98); ABG PCO2 62 mmHg (35-45); ABG PH 7.28 pH Units (7.32-7.45); ABG PO2 36 mmHg (85-104); ABG TCO2 31 mEq/L (20-26); Blood Gas Modality ASSIST CONTROL; Blood Gas VT 500 cc
[2020-09-04] MEDS: Dexmedetomidine HCl 400 MCG/100 ML MLS IVC SCH (05:09)
[2020-09-04] MEDS ORDERED: *HR* Metoprolol 5 MG/5 ML VIAL IVP ONE (06:22)
[2020-09-04] MEDS: Pantoprazole 40 MG VIAL IVP SCH (08:40)
[2020-09-04] MEDS: Chlorhexidine Rinse 15 ML MOUTHWASH MM SCH (08:40)
[2020-09-04] MEDS: Dexamethasone Sodium Phos/PF 10 MG/ML VIAL IVP SCH (08:41)
[2020-09-04] MEDS: Budesonide/Formoterol 160/4.5 1 PUFF INH IH SCH (09:05)
[2020-09-04] MEDS ORDERED: Glycopyrrolate 0.2 MG/ML VIAL IVP ONE (10:25)
[2020-09-04] MEDS: DilTIAZem 50 MG/50 ML IV.SOLN IVC SCH (11:21)
[2020-09-04] MEDS: Norepinephrine 4 MG/254 ML IV.SOLN IVC SCH (11:22)
[2020-09-04 12:13] VITALS: BP 125/58
== END 2020-09-04 14:51 | disposition expired | DRG 207 ==
LOC: 2NENU → SUATTDRO 20:21
PROVIDERS: ADMIT Family Medicine; ATTEND Internal Medicine
PROC: IRPERMA (2020-08-27 13:00)
PROC: ENDOBRF (2020-09-01 17:30)